=== PATIENT | female | born 1945 | race Caucasian/White ===

== ENCOUNTER 2019-03-28 12:47 | Emergency (ER) | payer MEDICARE, SELFPAY ==
[2019-03-28 13:17] VITALS: BP 134/69; PULSE 66; RESP 16; TEMP 37.1; O2SAT 92; BMI 20.2
--- NOTE | 2019-03-28 13:31 | XR_ITS ---
WS: [id number] CHEST, 1 view. HISTORY: cough, sob COMPARISON: 12/01/2018 Partial obscuration of the LEFT hemidiaphragm with increasing consolidation at the LEFT lung base. Sm all pleural effusion on the LEFT. Cardiac size: Mildly enlarged cardiac silhouette. Mediastinum/Aorta: Partially calcified aorta. Hiatal hernia. No osseous abnormality seen. XR/XR chest 1V [id number] IMPRESSION: 1. Small LEFT pleural effusion and suspected atelectasis or LEFT basilar pneum onia. 2. Hiatal hernia. 3. Mild cardiomegaly.
[2019-03-28 14:21] LABS: Basophils % 0.1 %; Hematocrit 34.4 % (37.0-47.0); Hemoglobin 11.2 g/dL (11.5-15.3); Lymphocytes # 1.4 10^3/uL (0.8-4.8); Lymphocytes % 8.4 %; Mean Corpuscular HGB Conc 32.6 g/dL (30.0-36.0); Mean Corpuscular Volume 82.9 fL (81-99); Mean Platelet Volume 10.6 fL (7.4-10.4); Neutrophils # 14.3 10^3/uL (1.8-7.7); Neutrophils % 85.3 %; Nucleated Red Blood Cells % 0 %; Platelet Count 233 10^3/cmm (130-400); Red Blood Count 4.15 10^6/uL (4.1-5.3); Red Cell Distribution Width 16.6 % (12.1-15.1); White Blood Count 16.8 10^3/uL (4.0-10.0)
--- NOTE | 2019-03-28 14:29 | ED_ITS ---
Entered by Sweta Will, acting as scribe for HPI - General Adult General: Chief complaint: General Medical, Adult Stated complaint: cold symptoms, not acting self Time Seen by Provider: 03/28/19 14:31 Source: patient and family Mode of arrival: ambulatory Limitations: no limitations History of Present Illness: HPI narrative: 73 yo female presents with a cough and cold like symptoms. pt states this started 2-3 days ago. pt has had congestion. pt states she has had muscle aches. pt denies any other symptoms at this time. MD complaint: cough and congestion Onset (ago): day(s) (2-3 days ago) Associated symptoms: Reports chest pain (with coughing), cough, decreased appetite, malaise and weakness; Deny confusion, diaphoresis, dyspnea, headache(s), nausea, rash or vomiting Treatments prior to arrival: none Review of Systems General: Reports: other (negative unless marked) Const: Reports: chills, body aches, fatigue and malaise; Denies: fever or diaphoresis Eyes: Denies: change in vision or blurry vision ENMT: Denies: throat pain, painful swallowing, hoarseness, ear pain, ear discharge, Change in hearing or nasal discharge Card: Reports: chest pain (with coughing) Resp: Reports: productive cough; Denies: shortness of breath, non-productive cough, wheezing, coughing up blood or chest congestion GI: Denies: abdominal pain, nausea, vomiting, vomiting blood, coffee grounds in vomit, diarrhea, constipation, cramping, blood in stool or black tarry stool : Denies: flank pain, painful urination, urinary frequency, urinary urgency, decreased urine ouput, urinary incontinence or blood in urine Musc: Denies: neck pain, back pain, extremity pain, extremity swelling, joint pain, joint swelling, joint warmth or joint stiffness Skin/Breast: Denies: rash, skin tenderness or yellow skin Neuro: Denies: headache, numbness in extremities, weakness in extremities, changes in sensation, lack of coordination, difficulty walking, dizziness, vertigo or confusion Endo: Denies: excessive thirst, tired all the time, cold intolerance, excessive sweating, flushing or hot flashes Srinivasan/Lymph: Denies: easy bruising, easy bleeding, petechiae or enlarged lymph nodes All/Imm: Denies: hives, throat swelling, tongue swelling, facial swelling or acute wheezing PFSH ED PFSH: Statuses (acute, chronic, etc) shown below reflect problem list status as previously entered and may not be historically accurate Social History Smoking and tobacco status: former smoker Physical Exam Const: COMMON NORMALS: no apparent distress, oriented x3, no limitations, healthy appearing and well nourished EXAM LIMITATIONS: no altered mental status GENERAL APPEARANCE: cooperative, well kempt and well developed ORIENTATION/CONSCIOUSNESS: Yes awake HENMT: COMMON NORMALS: normocephalic, head/scalp atraumatic, hearing grossly normal bilaterally, external ears normal, EAC's normal, external nose normal and moist oral mucous membranes HEAD & SCALP: normal to inspection, normocephalic and atraumatic FACE & SINUS: normal facial exam and face symmetric NOSE: external nose normal and nares normal EXTERNAL EAR: Yes external ears normal EXTERNAL AUDITORY CANAL: EAC's normal MOUTH: oral and palatal mucosa normal and tongue normal Eye: COMMON NORMALS: PERRL, EOMs intact bilaterally, conjunctivae normal and no scleral icterus GENERAL EYE: normal appearance of both eyes and normal light reflex CONJUNCTIVA: Yes conjunctivae normal SCLERA: sclerae normal CORNEA: Yes corneas normal PUPIL: Yes PERRL DIRECT OPHTHALMOSCOPY: Yes normal light reflex Neck/C-Spine: COMMON NORMALS: full ROM, no lymphadenopathy, supple, no meningeal signs and no JVD GENERAL: Yes normal visual inspection and Yes trachea midline CERVICAL SPINE: Yes cervical ROM normal Chest: COMMONS NORMALS: inspection of chest normal and palpation of chest normal Resp: COMMON NORMALS: normal respiratory effort, no retractions and no use of accessory muscles EFFORT & INSPECTION: Yes able to speak in complete sentences AUSCULTATION: rhonchi Cardio: COMMON NORMALS: no JVD, regular rate, regular rhythm, S1 normal heart sound, S2 normal heart sound, no gallops, no clicks, no murmurs and no rub JUGULAR VENOUS DISTENTION: no JVD RATE: regular rate RHYTHM: regular rhythm HEART SOUNDS: S1 normal and S2 normal GI: COMMON NORMALS: soft to palpation, non-tender, no hepatosplenomegaly and no masses INSPECTION: Yes normal to inspection PALPATION: Yes soft and Yes no hepatosplenomegaly : COMMON NORMALS: Yes no CVA tenderness BLADDER/KIDNEY EXAM: Yes no CVA tenderness Back/Pelvis: COMMON NORMALS: no CVA tenderness, thoracic and lumbar spine normal to inspection, no thoracic nor lumbar tenderness and thoraco-lumbar ROM normal Extremity: COMMON NORMALS: normal to inspection, full ROM, normal capillary refill, no joint enlargement, no clubbing, cyanosis or edema and no calf tenderness Neuro: COMMON NORMALS: oriented x3, CN's II-XII intact bilaterally, moves all extremities, no focal motor deficits and no sensory deficits noted MENINGEAL SIGNS: Yes no meningeal signs Psych: COMMON NORMALS: mental status grossly normal, thought process normal, cooperative, affect normal, speech normal and activity/motor behavior normal APPEARANCE: Yes well kempt SPEECH: Yes normal speech THOUGHT PROCESS: normal thought process Skin: COMMON NORMALS: no rashes or lesions noted, skin turgor normal, no jaundice, no petechiae and no mottling GENERAL SKIN EXAM: no rashes or lesions noted and turgor normal Course Vital Signs: Vital signs: Vital Signs Temperature 98.7 F 03/28/19 13:17 Pulse Rate 66 03/28/19 13:17 Respiratory Rate 20 H 03/28/19 15:59 Blood Pressure 134/69 03/28/19 13:17 Pulse Oximetry 90 03/28/19 15:59 MDM - General Adult 2 MDM Narrative: Medical decision making narrative: The patient has a productive cough and rhonchi throughout her lungs. Her chest x-ray reveals a left lower lobe infiltrate consistent with pneumonia. The patient's troponin and EKG are abnormal but she refuses to stay for any further heart testing. She states that she knows she has pneumonia. She agrees to return should her symptoms change or worsen but she is denying any chest pain. She wants to go home on antibiotics. She agrees to follow-up with Dr. Cartagena in the office. The patient again understands that any heart problem can be life-threatening so if her symptoms change or worsen she agrees to return but at this time she wants to be discharged. Lab Data: Labs: Lab Results 03/28/19 03/28/19 03/28/19 Range/Units 14:11 14:11 14:11 WBC 16.8 H (4.0-10.0) 10^3/ uL RBC 4.15 (4.1-5.3) 10^6/u L Hgb 11.2 L (11.5-15.3) g/dL Hct 34.4 L (37.0-47.0) % MCV 82.9 (81-99) fL MCH 27.0 L (28.0-34.0) pg MCHC 32.6 (30.0-36.0) g/dL RDW 16.6 H (12.1-15.1) % Plt Count 233 (130-400) 10^3/c mm MPV 10.6 H (7.4-10.4) fL Neut % (Auto) 85.3 % Lymph % (Auto) 8.4 % [place] % (Auto) 6.0 % Eos % (Auto) 0.0 % Baso % (Auto) 0.1 % Neut # (Auto) 14.3 H (1.8-7.7) 10^3/u L Lymph # (Auto) 1.4 (0.8-4.8) 10^3/u L [place] # (Auto) 1.0 H (0.2-0.9) 10^3/u L Eos # (Auto) 0.0 (0.0-0.8) 10^3/u L Baso # (Auto) 0.0 (0.0-0.1) 10^3/u L Nucleated RBC % (a uto) 0 % Nucleated RBCs # 0.0 /100WBC Sodium 137 (136-145) mmol/L Potassium 4.6 (3.5-5.1) mmol/L Chloride 102 (98-107) mmol/L Carbon Dioxide 21 L (22-29) mmol/L Anion Gap 18.6 (5-19) BUN 19 (8-23) mg/dL Creatinine 1.4 H (0.5-0.9) mg/dL Glucose 116 H (74-106) mg/dL Lactate (0.5-2.2) mmol/L Calcium 9.3 (8.8-10.2) mg/Dl Magnesium 2.1 (1.7-2.3) mg/dL Total Bilirubin 1.4 H (0.15-1.2) mg/dL AST 23 (0-32) U/L ALT 10 (0-33) U/L Alkaline Phosphata se 51 (35-105) IU/L Troponin T Baselin e (0-10) ng/mL Troponin T [address] [place] (0-10) ng/mL Delta Troponin T (0-10) ABS# Total Protein 7.0 (6.6-8.7) g/dL Albumin 3.9 (3.5-5.2) g/dL Globulin 3.1 (1.3-4.6) g/dL Lipase 5 L (13-60) U/L 03/28/19 03/28/19 03/28/19 Range/Units 14:11 16:22 16:22 WBC (4.0-10.0) 10^3/ uL RBC (4.1-5.3) 10^6/u L Hgb (11.5-15.3) g/dL Hct (37.0-47.0) % MCV (81-99) fL MCH (28.0-34.0) pg MCHC (30.0-36.0) g/dL RDW (12.1-15.1) % Plt Count (130-400) 10^3/c mm MPV (7.4-10.4) fL Neut % (Auto) % Lymph % (Auto) % [place] % (Auto) % Eos % (Auto) % Baso % (Auto) % Neut # (Auto) (1.8-7.7) 10^3/u L Lymph # (Auto) (0.8-4.8) 10^3/u L [place] # (Auto) (0.2-0.9) 10^3/u L Eos # (Auto) (0.0-0.8) 10^3/u L Baso # (Auto) (0.0-0.1) 10^3/u L Nucleated RBC % (a uto) % Nucleated RBCs # /100WBC Sodium (136-145) mmol/L Potassium (3.5-5.1) mmol/L Chloride (98-107) mmol/L Carbon Dioxide (22-29) mmol/L Anion Gap (5-19) BUN (8-23) mg/dL Creatinine (0.5-0.9) mg/dL Glucose (74-106) mg/dL Lactate 1.6 (0.5-2.2) mmol/L Calcium (8.8-10.2) mg/Dl Magnesium (1.7-2.3) mg/dL Total Bilirubin (0.15-1.2) mg/dL AST (0-32) U/L ALT (0-33) U/L Alkaline Phosphata se (35-105) IU/L Troponin T Baselin e 30 H (0-10) ng/mL Troponin T [address] [place] 24.88 H (0-10) ng/mL Delta Troponin T -5.12 L (0-10) ABS# Total Protein (6.6-8.7) g/dL Albumin (3.5-5.2) g/dL Globulin (1.3-4.6) g/dL Lipase (13-60) U/L Imaging Data^: CXR: My impression: Left lower lobe infiltrate consistent with pneumonia EKG Data^: EKG 1: Interpretation: 1524 -normal sinus rhythm at 60 beats a minute, right bundle branch block, nonspecific ST and T wave changes. Computer generated interpretation: Chest X-Ray 03/28/19 13:31 IMPRESSION: 1. Small LEFT pleural effusion and suspected atelectasis or LEFT basilar pneumonia. 2. Hiatal hernia. 3. Mild cardiomegaly. Discharge Plan Discharge Patient Disposition: Home, Self-Care Clinical Impression: Pneumonia Condition: Stable Prescriptions: New cefdinir 300 mg capsule 300 mg PO Q12H 10 Days Qty: 20 RF: 0 doxycycline hyclate 100 mg capsule 100 mg PO BID 10 Days Qty: 20 RF: 0 Discharge Orders: Discharge Order (Routine); Ordered 03/28/19 Ordered By: Emily Paez Referrals: Peter Cartagena MD [Family Provider] - 1-3 days Discharge Diet: Usual diet Discharge Activity: Increase activity as tolerated Patient Instructions: Bacterial Pneumonia (ED) Activity Restrictions/Additional Instructions: Please return to the ER immediately for any of the signs or symptoms listed on your discharge instruction sheets, worsening/changing of your symptoms, you are not getting better as quickly as expected, or for ANY other cause or concerns. You have declined any further evaluation of your heart and of course a heart problem could be life-threatening so if your symptoms change/worsen in any way you are more than welcome and encouraged to return to the ER for further evaluation and care. Be certain to follow-up with Dr. Cartagena as soon as possible for recheck. Coding Level of Care Code ED Athletic Monitor for Chg Fwd Exam Problem Focused The documentation recorded by the Suman king Bridget Annette, accurately reflects the service I personally performed and the decisions made by me, Emily Paez Mar 28, 2019 12:47
[2019-03-28 14:41] LABS: Alanine Aminotransferase 10 U/L (0-33); Albumin Level 3.9 g/dL (3.5-5.2); Alkaline Phosphatase 51 IU/L (35-105); Anion Gap 18.6 (5-19); Aspartate Amino Transferase 23 U/L (0-32); Blood Urea Nitrogen 19 mg/dL (8-23); Calcium 9.3 mg/Dl (8.8-10.2); Carbon Dioxide 21 mmol/L (22-29); Chloride 102 mmol/L (98-107); Globulin 3.1 g/dL (1.3-4.6); Glucose 116 mg/dL (74-106); Potassium 4.6 mmol/L (3.5-5.1); Sodium 137 mmol/L (136-145); Total Bilirubin 1.4 mg/dL (0.15-1.2)
[2019-03-28 15:01] LABS: Lipase 5 U/L (13-60); Magnesium 2.1 mg/dL (1.7-2.3)
[2019-03-28 15:02] LABS: Troponin(5th) Baseline 30 ng/mL (0-10)
[2019-03-28] MEDS: sodium chloride 0.9% 1,000 ML 999 ML IV (15:10)
[2019-03-28] MEDS: acetaminophen 325 mg Tablet 650 MG PO (15:11)
[2019-03-28] MEDS: ondansetron 2 mg/ML SDV 2 mL 4 MG IVP (15:14)
[2019-03-28 15:47] VITALS: RESP 18
[2019-03-28 15:59] VITALS: RESP 20; O2SAT 90
[2019-03-28] MEDS: morphine 4 mg/mL SDV 1 mL 2 MG IVP (15:59)
--- NOTE | 2019-03-28 16:38 | ECG_ITS ---
Measurements Intervals [place] Rate: 60 P: 49 [place]: 164 QRS: -19 QRSD: 133 T: 30 QT: 471 QTc: 474 SINUS RHYTHM POSSIBLE LEFT ATRIAL ENLARGEMENT INTRAVENTRICULAR CONDUCTION DELAY POSSIBLE LEFT VENTRICULAR HYPERTROPHY POSSIBLE SEPTAL MYOCARDIAL INFARCTION , PROBABLY OLD Compared to ECG 11/12/2018 17:32:02 Intraventricular conduction delay now present Myocardial infarct finding now present Sinus bradycardia no longer present Right bundle-branch block no longer present Electronically Signed On 03-30-2019 13:33:42 [employer] by Elva Goldstein M.D. [email or web address]
[2019-03-28 16:53] LABS: Lactate (Lactic Acid level) 1.6 mmol/L (0.5-2.2)
[2019-03-28 16:55] VITALS: BP 155/66; PULSE 63; RESP 18; O2SAT 94
[2019-03-28 16:55] LABS: Troponin 5 2HR 24.88 ng/mL (0-10)
[2019-03-28 16:56] LABS: Troponin 5 2HR Delta -5.12 ABS# (0-10)
[2019-03-28 17:03] VITALS: BP 144/65; BP 151/59; BP 155/68; PULSE 63; PULSE 69; PULSE 70
[2019-03-28] MEDS: doxycycline 100 mg Tablet 200 MG PO (17:23)
[2019-03-28] MEDS: cefTRIAXone 1,000 MG in sodium chloride 0.9% (plus) 50 ML 100 MG IV (17:24)
[2019-03-28 17:53] VITALS: BP 155/64; PULSE 61; RESP 18; O2SAT 93
== END 2019-03-28 17:54 | disposition home or self-care (01) ==
PROVIDERS: Family Medicine; Emergency Provider Emergency Medicine; Family Provider Internal Medicine
DX: J18.9 Pneumonia, unspecified organism (principal); Z87.891 Personal history of nicotine dependence
CPT/HCPCS: 36415; 71045; 80053; 82803; 83605; 83690; 83735; 84484; 85025; 87040; 93005; 96360; 96365; 96374; 99283; J0696; J2270; J2405; J7030

== ENCOUNTER → 2019-04-25 11:00 | Outpatient (BNVA) | payer MEDICARE, SELFPAY | PROVIDERS: Family Provider Internal Medicine; PCP Internal Medicine; Visit Provider Nurse Practitioner | DX: G89.29 Other chronic pain (principal); M54.5 Low back pain; Z79.891 Long term (current) use of opiate analgesic | CPT/HCPCS: 99214 ==

== ENCOUNTER → 2019-06-20 10:50 | Outpatient (BNVA) | payer MEDICARE, SELFPAY | PROVIDERS: Family Provider Internal Medicine; PCP Internal Medicine; Visit Provider Nurse Practitioner | DX: Z76.89 Persons encountering health services in other specified circumstances (principal) | CPT/HCPCS: 99213 ==

== ENCOUNTER → 2019-09-05 13:41 | Outpatient (BNVA) | payer MEDICARE, SELFPAY | PROVIDERS: Family Provider Internal Medicine; PCP Internal Medicine; Visit Provider Nurse Practitioner | DX: G89.29 Other chronic pain (principal); M54.41 Lumbago with sciatica, right side; M54.42 Lumbago with sciatica, left side; Z79.891 Long term (current) use of opiate analgesic | CPT/HCPCS: 99213 ==

== ENCOUNTER → 2019-10-01 14:56 | Outpatient (BNVA) | payer MEDICARE, SELFPAY | PROVIDERS: Family Provider Internal Medicine; PCP Internal Medicine; Visit Provider Urology | DX: N39.0 Urinary tract infection, site not specified (principal); R33.9 Retention of urine, unspecified; N39.41 Urge incontinence | CPT/HCPCS: 81001 ==

== ENCOUNTER → 2019-10-29 13:37 | Outpatient (BNVA) | payer MEDICARE, SELFPAY | PROVIDERS: Family Provider Internal Medicine; PCP Internal Medicine; Visit Provider Nurse Practitioner | DX: Z02.89 Encounter for other administrative examinations (principal); G89.29 Other chronic pain; M54.5 Low back pain; Z79.891 Long term (current) use of opiate analgesic | CPT/HCPCS: 99213 ==

== ENCOUNTER → 2019-12-09 12:28 | Outpatient (BNVA) | payer MEDICARE, SELFPAY | PROVIDERS: Family Provider Internal Medicine; PCP Internal Medicine; Visit Provider Internal Medicine | DX: E11.9 Type 2 diabetes mellitus without complications (principal); K86.81 Exocrine pancreatic insufficiency | CPT/HCPCS: 85025 ==

== ENCOUNTER → 2019-12-15 10:34 | Outpatient (BNVA) | payer MEDICARE, SELFPAY | PROVIDERS: Family Provider Internal Medicine; PCP Internal Medicine; Visit Provider Internal Medicine | DX: K86.81 Exocrine pancreatic insufficiency (principal); E11.9 Type 2 diabetes mellitus without complications; E78.2 Mixed hyperlipidemia | CPT/HCPCS: 80053; 80061; 84443; 85025 ==

== ENCOUNTER → 2019-12-26 13:20 | Outpatient (BNVA) | payer MEDICARE, SELFPAY | PROVIDERS: Family Provider Internal Medicine; PCP Internal Medicine; Visit Provider Nurse Practitioner | DX: G89.29 Other chronic pain (principal); M54.41 Lumbago with sciatica, right side; M54.42 Lumbago with sciatica, left side; M79.7 Fibromyalgia; Z79.891 Long term (current) use of opiate analgesic | CPT/HCPCS: 99213 ==

== ENCOUNTER 2020-01-02 18:38 | Emergency (ER) | payer MEDICARE, SELFPAY ==
[2020-01-02 19:30] VITALS: BP 137/80; PULSE 80; RESP 17; TEMP 36.7; O2SAT 97; BMI 23.0
[2020-01-02 22:38] VITALS: BP 168/88; PULSE 78; RESP 16; O2SAT 98; O2SAT 99
[2020-01-02 22:52] VITALS: BP 141/71; PULSE 67; RESP 18; O2SAT 99
--- NOTE | 2020-01-02 23:05 | ECG_ITS ---
[facility] Test Date: 2020-01-02 Pat Name: Ivan Portillo Department: Room: Gender: Female Photo Lab Specialist: : [id number] Requested By: Emily Kirkpatrick Order Number: [id number] Rowe MD: Elva Goldstein M.D. Measurements Intervals [place] Rate: 61 P: 31 [place]: 163 QRS: -34 QRSD: 129 T: -12 QT: 479 QTc: 485 Interpretive Statements SINUS RHYTHM LEFT AXIS DEVIATION [QRS AXIS < -30] RIGHT BUNDLE BRANCH BLOCK [120+ ms QRS DURATION, UPRIGHT V1, 40+ ms S IN I/aVL/V4/V5/V6] MINIMAL VOLTAGE CRITERIA FOR LVH, CONSIDER NORMAL VARIANT [MEETS CRITERIA IN ONE OF: R(aVL), S(V1), R(V5), R(V5/V6)+S(V1)] Compared to ECG 03/28/2019 15:24:06 Left-axis deviation now present Right bundle-branch block now present Intraventricular conduction delay no longer present Myocardial infarct finding no longer present Electronically Signed On 01-03-2020 17:56:42 CDT by Elva Goldstein M.D. [email or web address]
--- NOTE | 2020-01-02 23:05 | XRR_ITS ---
PROCEDURE INFORMATION: Exam: XR Chest, 1 View Exam date and time: 01/02/2020 11:48 PM Age: 74 years old Clinical indication: Dyspnea and fever TECHNIQUE: Imaging protocol: XR of the chest Views: 1 view. COMPARISON: CR XR chest 1V [id number] 03/28/2019 1:47 PM FINDINGS: Lungs: Interval decrease in the left basilar atelectasis. No interval consolidation. Continued increased lung volumes. Continued suggestion of a small calcified granuloma in the right lung base Pleural space: Unremarkable. No pleural effusion. No pneumothorax. Heart/Mediastinum: Continued suggestion of a prominent hiatal hernia. Continued cardiomegaly. Vasculature: Aortic elongation slightly more evident than before. Bones/joints: Continued mild S-shaped thoracolumbar scoliosis. XR/XR chest 1V portable [id number] IMPRESSION: 1. No apparent pneumonia. Interval decrease in the left basilar atelectasis. Emphysema still suspected. 2. Continued cardiomegaly and a probable hiatal hernia.
[2020-01-02 23:40] LABS: ABG PCO2 35.1 mmHg (35-45); ABG PH Result 7.46 (7.35-7.45); Base Excess ABG 1.7 mmol/L (-2.0-2.0); Blood Gas Operator Identificat HARKR; Blood Gas Sample Site Brachial, right; Blood Gas Sample Type Arterial; HCO3 ABG 25.2 mmol/L (22-26); Oxygen Device ROOM AIR
--- NOTE | 2020-01-02 23:43 | ED_ITS ---
HPI - COVID General: Chief Complaint: COVID symptoms Stated Complaint: FEVER Time Seen by Provider: 01/02/20 19:43 Source: patient Mode of arrival: ambulatory Limitations: no limitations Triage information: Has fever, cough or shortness of breath . Exposure to COVID + person last 14 days History of Present Illness: HPI Narrative: Ms. Cornejo is a very nice 74-year-old female who comes in complaining of flulike symptoms. She states that 5 days ago she was exposed to the COVID-19 virus at [facility] and then the past 3 days has been having symptoms. Her symptoms are that of a sore throat, dry cough, fatigue and malaise. Patient believes she had a fever yesterday of 100.0 but no higher. She states overall she feels tired but otherwise is ma intaining her activities of daily living. She denies any other exacerbating or alleviating factors and she denies any other known ill exposures. Her was also exposed to this person but he is not symptomatic at this time. COVID 19 common symptoms: positive fever(s), chills, non-productive cough, fatigue, body aches and throat pain; negative productive cough, dyspnea, headache(s), nausea, vomiting or diarrhea COVID 19 other sytmptoms: negative chest pain or confusion COVID Results: SARS-CoV-2 Antigen (Rapid) Positive (Negative) H 01/03/20 00:27 01/03/20 Review of Systems Const: Reports: fever(s), chills, body aches, fatigue and malaise; Denies: diaphoresis Eyes: Denies: change in vision, blurry vision, photophobia, eye discomfort, eye discharge, eye redness or yellow eyes ENMT: Reports: throat pain; Denies: odynophagia, hoarseness, swelling of lips/tongue, ear or mastoid pain, ear discharge, change in hearing or nasal discharge Card: Denies: chest pain, palpitations, irregular heart rhythm, edema, lightheadedness, syncope, pre-syncope, dyspnea on exertion or orthopnea Resp: Reports: non-productive cough; Denies: dyspnea, productive cough, wheezing, hemoptysis or chest congestion GI: Denies: abdominal pain, nausea, vomiting, hematemesis, coffee ground emesis, heartburn, diarrhea, constipation, GI cramping, hematochezia or melena : Denies: flank pain, dysuria, urinary frequency, urinary urgency or hematuria Musc: Denies: neck pain, back pain, extremity pain, extremity swelling, joint pain, joint swelling, joint redness, joint warmth or joint stiffness Skin/Breast: Denies: rash, pruritus, erythema, skin pain or skin tenderness Neuro: Denies: headache(s), numbness in extremities, weakness in extremities, sensory changes, lack of coordination, difficulty walking, dizziness, vertigo, confusion, Slurred speech present or seizure-like activity Srinivasan/Lymph: Denies: easy bruising, easy bleeding, petechiae, purpura or enlarged lymph nodes All/Imm: Denies: urticaria, throat swelling, tongue swelling, facial swelling or acute wheezing PFSH ED PFSH: Medical History Abnormal cardiovascular stress test Atherosclerotic heart disease of [place] coronary artery with other forms of angina pectoris Chronic low back pain Diarrhea Fibromyalgia Hyperlipidemia Hypertension Ileostomy, has currently Long-term current use of opiate analgesic NSTEMI (non-ST elevated myocardial infarction) Pain management contract signed Past heart attack Pyelonephritis Recurrent UTI Restless legs syndrome Urgency incontinence Urinary incontinence Urinary retention Surgical History H/O ileostomy History of reversal of ileostomy Hx of appendectomy (~1973) Hx of foot surgery (~11/2013) RIGHT FOOT Hx of hysterectomy (~1973) Hx of tubal ligation Family History Brother , BONE METS Cancer COLON CANCER Mother Heart disease Family history of thyroid problem Grandmother Heart disease Father Hyperlipidemia Social History Smoking and tobacco status: former smoker Alcohol intake: never Lives independently: Yes Household members: spouse History of recent travel: No Physical Exam Const: COMMON NORMALS: no acute distress, patient oriented x3, no limitations and alert GENERAL APPEARANCE: cooperative HENMT: COMMON NORMALS: normocephalic, atraumatic, external ears normal, EAC's normal and Normal external nose present HEAD & SCALP: normal to inspection, normocephalic and atraumatic FACE & SINUS: normal facial exam and face symmetric NOSE: Normal external nose present and Normal nares present EXTERNAL EAR: Yes external ears normal EXTERNAL AUDITORY CANAL: EAC's normal MOUTH: Normal oral and palatal mucosa present, lip normal and tongue normal Eye: COMMON NORMALS: Equal, round and reactive pupils present and conjunctivae normal GENERAL EYE: appearance normal, both eyes and all related structures ALIGNMENT: Yes alignment normal PERIORBITAL: periorbital findings normal EYELID: eyelids normal CONJUNCTIVA: Yes conjunctivae normal SCLERA: sclerae normal PUPIL: Yes Equal, round and reactive pupils present Neck/C-Spine: COMMON NORMALS: full ROM, no lymphadenopathy, supple, no meni ngeal signs and no JVD GENERAL: Yes normal visual inspection and Yes trachea midline Chest: COMMONS NORMALS: normal inspection of the chest and normal palpation of entire chest wall Resp: COMMON NORMALS: normal respiratory effort, No retractions, No use of accessory muscles and clear to auscultation bilaterally EFFORT & INSPECTION: Yes able to speak in complete sentences and Yes symmetric chest movement AUSCULTATION: clear to auscultation bilaterally, no crackles, no rales, no rhonchi and no wheezes Cardio: COMMON NORMALS: no JVD, regular rate, regular rhythm, S1 normal heart sound present and S2 normal heart sound present RATE: regular rate RHYTHM: regular rhythm HEART SOUNDS: S1 normal heart sound present, S2 normal heart sound present, no click, no gallops, no murmurs and no rubs GI: COMMON NORMALS: Soft to palpation and No hepatosplenomegaly present PALPATION: Yes Soft to palpation, No Tenderness to palpation present (GI), No Guarding due to palpation present (GI), No Rigid due to palpation, Yes No hepatosplenomegaly present, No Hernia present, No Palpable mass present and No Pulsatile mass present : COMMON NORMALS: Yes no CVA tenderness BLADDER/KIDNEY EXAM: Yes no CVA tenderness EXTERNAL FEMALE EXAM: No Hernia present Back/Pelvis: COMMON NORMALS: no CVA tenderness, thoracic and lumbar spine normal to inspection, no thoracic nor lumbar tenderness and thoraco-lumbar ROM normal Extremity: COMMON NORMALS: normal to inspection, full ROM, capillary refill normal, no joint enlargement, no clubbing, cyanosis or edema and no calf tenderness Neuro: COMMON NORMALS: patient oriented x3, CN's II-XII intact bilaterally, moves all extremities, no focal motor deficits and no sensory deficits noted SENSORIUM/ORIENTATION: Yes alert MENINGEAL SIGNS: Yes no meningeal signs SPEECH: speech normal Psych: COMMON NORMALS: mental status grossly normal, Normal thought process present, cooperative, normal affect, speech normal and activity/motor behavior normal SPEECH: Yes normal speech THOUGHT PROCESS: Normal thought process present Skin: COMMON NORMALS: no rashes or lesions noted, turgor normal, no jaundice, no petechiae and no mottling GENERAL SKIN EXAM: no rashes or lesions noted and turgor normal Course Vital Signs: Vital signs: Vital Signs Temperature 98.1 F 01/02/20 19:30 Pulse Rate 87 01/03/20 02:34 Respiratory Rate 16 01/03/20 02:34 Blood Pressure 168/74 01/03/20 02:34 Pulse Oximetry 97 01/03/20 02:34 MDM - COVID MDM Narrative Medical decision making narrative: Ms. Peguero is a nice 74-year-old female who comes in complaining of covert symptoms. She is COVID positive. Patient's inflammatory markers are not tremendously high and her chest x-ray appears normal. She had a positive d-dimer and I did not suspect a PE but this was checked secondary to being an inflammatory marker. The patient had restless legs here and declined anything for them but was adamant she wanted to go home. I discussed with the patient at length the possibility of or severe permanent disability by this happening but she still declined to stay. Patient understood that it could be a threat to her life but despite this she wanted to be discharged. The patient agreed to return if her symptoms worsened and she understood she needed to quarantine. She agreed to follow-up with her doctor or return here if she got worse at all. She was discharged on Decadron and she was not in necessitating oxygen prior to discharge. Lab Data Attestation: I reviewed the patient's lab results. Result diagrams: 01/03/20 00:27 01/03/20 00:27 Labs: Lab Results 01/02/20 01/03/20 01/03/20 Range/Units 23:29 00:27 00:27 WBC 4.8 (4.0-10.0) 10^3/uL RBC 4.66 (4.1-5.3) 10^6/uL Hgb 12.8 (11.5-15.3) g/dL Hct 40.8 (37.0-47.0) % MCV 87.6 (81-99) fL MCH 27.5 L (28.0-34.0) pg MCHC 31.4 (30.0-36.0) g/dL RDW 15.5 H (12.1-15.1) % Plt Count 241 (130-400) 10^3/cmm MPV 11.3 H (7.4-10.4) fL Neut % (Auto) 43.9 % Lymph % (Auto) 36.5 % Hitchcock % (Auto) 18.4 % Eos % (Auto) 0.2 % Baso % (Auto) 0.4 % Neut # (Auto) 2.10 (1.8-7.7) 10^3/uL Lymph # (Auto) 1.8 (0.8-4.8) 10^3/uL Hitchcock # (Auto) 0.9 (0.2-0.9) 10^3/uL Eos # (Auto) 0.0 (0.0-0.8) 10^3/uL Baso # (Auto) 0.0 (0.0-0.1) 10^3/uL Nucleated RBC % (auto) 0 % Nucleated RBCs # 0.0 /100WBC PT 14.40 (12.1-14.9) SECONDS INR 1.08 (0.8-1.2) APTT 42.5 H (23.9-36.7) SECONDS Fibrinogen 529 H (174-498) mg/dL D-Dimer 0.99 H (0-0.59) ug/mIFEU Specimen Type Arterial Sample Site Brachial, right ABG pH 7.46 H (7.35-7.45) ABG pCO2 35.1 (35-45) mmHg ABG pO2 69.0 L (80.0-100.0) mmHg ABG HCO3 25.2 (22-26) mmol/L ABG Base Excess 1.7 (-2.0-2.0) mmol/L Fabricio Test N/a Hematocrit 38.0 (37-47) % O2 Delivery Device Room air FiO2 21.0 % Manager Of Loss Prevention Operations ID Harkr Sodium (136-145) mmol/L Potassium (3.5-5.1) mmol/L Chloride (98-107) mmol/L Carbon Dioxide (22-29) mmol/L Anion Gap (5-19) BUN (8-23) mg/dL Creatinine (0.5-0.9) mg/dL GFR Calculation Glucose (65-115) mg/dL Calculated Osmolality (285-295) mOsm/kg Lactic Acid (0.5-2.2) mmol/L Calcium (8.5-10.5) mg/dL Magnesium (1.7-2.3) mg/dL Ferritin (15-150) ng/mL Total Bilirubin (0.15-1.2) mg/dL AST (0-32) U/L ALT (0-33) U/L Alkaline Phosphatase (35-105) IU/L Lactate Dehydrogenase (135-214) U/L Troponin T Gen 5 ng/L (0-10) ng/L Troponin T Baseline (0-10) ng/L C-Reactive Protein (0.0-4.9) mg/L NT-Pro-B Natriuret Pep (0-125) pg/mL Total Protein (6.6-8.7) g/dL Albumin (3.5-5.2) g/dL Globulin (1.3-4.6) g/dL Procalcitonin (0-0.5) ng/mL Influenza Type A Ag (Negative) Influenza Type B Ag (Negative) SARS-CoV-2 Ag (Rapid) (Negative) 01/03/20 01/03/20 01/03/20 Range/Units 00:27 00:27 00:27 WBC (4.0-10.0) 10^3/uL RBC (4.1-5.3) 10^6/uL Hgb (11.5-15.3) g/dL Hct (37.0-47.0) % MCV (81-99) fL MCH (28.0-34.0) pg MCHC (30.0-36.0) g/dL RDW (12.1-15.1) % Plt Count (130-400) 10^3/cmm MPV (7.4-10.4) fL Neut % (Auto) % Lymph % (Auto) % Hitchcock % (Auto) % Eos % (Auto) % Baso % (Auto) % Neut # (Auto) (1.8-7.7) 10^3/uL Lymph # (Auto) (0.8-4.8) 10^3/uL Hitchcock # (Auto) (0.2-0.9) 10^3/uL Eos # (Auto) (0.0-0.8) 10^3/uL Baso # (Auto) (0.0-0.1) 10^3/uL Nucleated RBC % (auto) % Nucleated RBCs # /100WBC PT (12.1-14.9) SECONDS INR (0.8-1.2) APTT (23.9-36.7) SECONDS Fibrinogen (174-498) mg/dL D-Dimer (0-0.59) ug/mIFEU Specimen Type Sample Site ABG pH (7.35-7.45) ABG pCO2 (35-45) mmHg ABG pO2 (80.0-100.0) mmHg ABG HCO3 (22-26) mmol/L ABG Base Excess (-2.0-2.0) mmol/L Fabricio Test Hematocrit (37-47) % O2 Delivery Device FiO2 % Manager Of Loss Prevention Operations ID Sodium 138 (136-145) mmol/L Potassium 3.7 (3.5-5.1) mmol/L Chloride 97 L (98-107) mmol/L Carbon Dioxide 22 (22-29) mmol/L Anion Gap 22.7 H (5-19) BUN 19 (8-23) mg/dL Creatinine 1.3 H (0.5-0.9) mg/dL GFR Calculation Not Reportable Glucose 81 (65-115) mg/dL Calculated Osmolality 287 (285-295) mOsm/kg Lactic Acid 1.5 (0.5-2.2) mmol/L Calcium 9.5 (8.5-10.5) mg/dL Magnesium 2.0 (1.7-2.3) mg/dL Ferritin 48 (15-150) ng/mL Total Bilirubin 0.8 (0.15-1.2) mg/dL AST 42 H (0-32) U/L ALT 17 (0-33) U/L Alkaline Phosphatase 82 (35-105) IU/L Lactate Dehydrogenase 280 H (135-214) U/L Troponin T Gen 5 ng/L 26 H (0-10) ng/L Troponin T Baseline (0-10) ng/L C-Reactive Protein 35.8 H (0.0-4.9) mg/L NT-Pro-B Natriuret Pep 671 H (0-125) pg/mL Total Protein 7.3 (6.6-8.7) g/dL Albumin 4.2 (3.5-5.2) g/dL Globulin 3.1 (1.3-4.6) g/dL Procalcitonin 0.25 (0-0.5) ng/mL Influenza Type A Ag (Negative) Influenza Type B Ag (Negative) SARS-CoV-2 Ag (Rapid) (Negative) 01/03/20 01/03/20 01/03/20 Range/Units 00:27 00:27 00:30 WBC (4.0-10.0) 10^3/uL RBC (4.1-5.3) 10^6/uL Hgb (11.5-15.3) g/dL Hct (37.0-47.0) % MCV (81-99) fL MCH (28.0-34.0) pg MCHC (30.0-36.0) g/dL RDW (12.1-15.1) % Plt Count (130-400) 10^3/cmm MPV (7.4-10.4) fL Neut % (Auto) % Lymph % (Auto) % Hitchcock % (Auto) % Eos % (Auto) % Baso % (Auto) % Neut # (Auto) (1.8-7.7) 10^3/uL Lymph # (Auto) (0.8-4.8) 10^3/uL Hitchcock # (Auto) (0.2-0.9) 10^3/uL Eos # (Auto) (0.0-0.8) 10^3/uL Baso # (Auto) (0.0-0.1) 10^3/uL Nucleated RBC % (auto) % Nucleated RBCs # /100WBC PT (12.1-14.9) SECONDS INR (0.8-1.2) APTT (23.9-36.7) SECONDS Fibrinogen (174-498) mg/dL D-Dimer (0-0.59) ug/mIFEU Specimen Type Sample Site ABG pH (7.35-7.45) ABG pCO2 (35-45) mmHg ABG pO2 (80.0-100.0) mmHg ABG HCO3 (22-26) mmol/L ABG Base Excess (-2.0-2.0) mmol/L Fabricio Test Hematocrit (37-47) % O2 Delivery Device FiO2 % Manager Of Loss Prevention Operations ID Sodium (136-145) mmol/L Potassium (3.5-5.1) mmol/L Chloride (98-107) mmol/L Carbon Dioxide (22-29) mmol/L Anion Gap (5-19) BUN (8-23) mg/dL Creatinine (0.5-0.9) mg/dL GFR Calculation Glucose (65-115) mg/dL Calculated Osmolality (285-295) mOsm/kg Lactic Acid (0.5-2.2) mmol/L Calcium (8.5-10.5) mg/dL Magnesium (1.7-2.3) mg/dL Ferritin (15-150) ng/mL Total Bilirubin (0.15-1.2) mg/dL AST (0-32) U/L ALT (0-33) U/L Alkaline Phosphatase (35-105) IU/L Lactate Dehydrogenase (135-214) U/L Troponin T Gen 5 ng/L (0-10) ng/L Troponin T Baseline 26 H (0-10) ng/L C-Reactive Protein (0.0-4.9) mg/L NT-Pro-B Natriuret Pep (0-125) pg/mL Total Protein (6.6-8.7) g/dL Albumin (3.5-5.2) g/dL Globulin (1.3-4.6) g/dL Procalcitonin (0-0.5) ng/mL Influenza Type A Ag Negative (Negative) Influenza Type B Ag Negative (Negative) SARS-CoV-2 Ag (Rapid) Positive H (Negative) COVID Results: SARS-CoV-2 Antigen (Rapid) Positive (Negative) H 01/03/20 00:27 01/03/20 Imaging Data CXR: Attestation: I personally reviewed and interpreted this imaging study as follows: My impression: Cardiomegaly, no other acute cardiopulmonary findings. EKG Data EKG 1: Attestation: I personally reviewed and interpreted this EKG as follows: EKG interpretation date: 01/03/20 EKG interpretation time: 23:49 Interpretation: Normal sinus rhythm at 61 beats a minute, right bundle branch block, mildly prolonged QTC. LVH. Unchanged from previous. Discharge Plan Discharge Patient Disposition: Home Clinical Impression: Viral pneumonia, COVID-19 virus infection Condition: Stable Prescriptions: New Decadron 6 mg tablet 6 mg PO DAILY Qty: 10 RF: 0 No Action Lactobacillus acidophilus [Acidophilus] Capsule 10 mg PO DAILY RF: 0 fluticasone propionate [Flonase Allergy Relief] 50 mcg/actuation spra y,suspension 1 spray INTRANASAL BID Qty: 9.9 RF: 3 loratadine [Claritin] 10 mg tablet 10 mg PO DAILY Qty: 30 RF: 3 aspirin 81 mg tablet,delayed release (DR/EC) 81 mg PO DAILY RF: 0 cholecalciferol (vitamin D3) 25 mcg (1,000 unit) capsule 25 mcg PO DAILY RF: 0 Zenpep 40,000-126,000- 168,000 unit capsule,delayed release(DR/EC) 1 cap PO .qac Qty: 90 RF: 8 hydrocodone-acetaminophen 10-325 mg tablet 1 tab PO QID PRN (Reason: pain) 30 Days Qty: 120 RF: 0 hydrocodone-acetaminophen 10-325 mg tablet 1 tab PO QID PRN (Reason: pain) 30 Days Qty: 120 RF: 0 Symbicort 160-4.5 mcg/actuation HFA aerosol inhaler 2 puff INHALATION BID Qty: 10.2 RF: 2 lisinopril 40 mg tablet See Rx Instructions PO DAILY 90 Days Qty: 135 RF: 3 loperamide 2 mg capsule 2 mg PO Q6H PRN (Reason: loose stool) Qty: 90 RF: 3 simvastatin 40 mg tablet 40 mg PO QPM Qty: 90 RF: 0 famotidine 40 mg tablet 40 mg PO BID Qty: 180 RF: 3 levothyroxine 75 mcg tablet 75 mcg PO DAILY Qty: 90 RF: 0 lidocaine HCl 4 % lotion 1 applic TOPICAL BID Qty: 88 RF: 8 Norvasc 10 mg tablet 10 mg PO DAILY Qty: 90 RF: 3 potassium chloride 20 mEq tablet extended release 20 meq PO BID Qty: 180 RF: 2 Lyrica 225 mg capsule 225 mg PO BID Qty: 60 RF: 3 Vitamin B-12 1,000 mcg Tablet 1,000 mcg PO DAILY RF: 0 mirtazapine 30 mg Tablet 30 mg PO BEDTIME RF: 0 ropinirole 0.5 mg Tablet 0.5 mg PO BID RF: 0 Calcium 600 with Vitamin D3 600 mg(1,500mg) -400 unit Tablet,Chewable 1 tab PO DAILY RF: 0 multivitamin 1 tab PO DAILY RF: 0 Protonix 40 mg tablet,delayed release (DR/EC) 40 mg PO BID RF: 0 Discharge Orders: Discharge Order (Routine); Ordered 01/03/20 Ordered By: Emily Paez Referrals: Peter Cartagena MD [Primary Care Provider] - 2 weeks Discharge Diet: Advance as tolerated Discharge Activity: Increase activity as tolerated Patient Instructions: Viral Pneumonia (ED) Activity Restrictions/Additional Instructions: You're leaving AGAINST MEDICAL ADVICE and are at risk for or severe permanent disability by doing so. You are more than welcome to return at any time for recheck and for further evaluation and care suture change you change your mind. You have refused a CT of the chest to rule out a blood clot in your lung and repeat blood work to rule out a heart attack. Both of these problems can be life-threatening so if you change your mind, your symptoms worsen or you have any other problems you are more than welcome to return at any time for recheck. Take the steroids as I have prescribed you. Keep yourself at home and quarantine from others until cleared by your doctor or the health department to return to a normal daily activities. Return to ER for increased shortness of breath or for any other cause for concern. Stand Alone Forms: Against Medical Advice Discharge Date/Time: 01/03/20 02:35 Coding Level of Care Code ED [place] [facility] for Gem[facility] Exam Comprehensive
[2020-01-03] VITALS: BP 158/99; PULSE 88; RESP 16; O2SAT 97
[2020-01-03 00:40] LABS: Basophils % 0.4 %; Eosinophils % 0.2 %; Hematocrit 40.8 % (37.0-47.0); Hemoglobin 12.8 g/dL (11.5-15.3); Lymphocytes # 1.8 10^3/uL (0.8-4.8); Lymphocytes % 36.5 %; Mean Corpuscular HGB Conc 31.4 g/dL (30.0-36.0); Mean Corpuscular Hemoglobin 27.5 pg (28.0-34.0); Mean Corpuscular Volume 87.6 fL (81-99); Mean Platelet Volume 11.3 fL (7.4-10.4); Monocytes # 0.9 10^3/uL (0.2-0.9); Monocytes % 18.4 %; Neutrophils % 43.9 %; Nucleated Red Blood Cells % 0 %; Platelet Count 241 10^3/cmm (130-400); Red Blood Count 4.66 10^6/uL (4.1-5.3); Red Cell Distribution Width 15.5 % (12.1-15.1); White Blood Count 4.8 10^3/uL (4.0-10.0)
[2020-01-03 00:51] LABS: INR 1.08 (0.8-1.2)
[2020-01-03 00:52] LABS: Fibrinogen 529 mg/dL (174-498); Partial Thromboplastin Time 42.5 SECONDS (23.9-36.7)
[2020-01-03] MEDS: dexamethasone 4 mg/mL INJ 6 MG IVP (00:53)
[2020-01-03] MEDS: ondansetron 2 mg/ML SDV 2 mL 4 MG IV (00:53)
[2020-01-03 00:54] LABS: D Dimer 0.99 ug/mIFEU (0-0.59)
[2020-01-03] MEDS: sodium chloride 0.9% 1,000 ML 75 ML IV (00:54)
[2020-01-03 00:57] LABS: Lactic Sepsis W/Reflex 1.5 mmol/L (0.5-2.2)
[2020-01-03 00:58] LABS: Troponin T (5th) Once 26 ng/L (0-10)
[2020-01-03 01:08] LABS: NT Pro B Type Natriuretic Pept 671 pg/mL (0-125); Procalcitonin 0.25 ng/mL (0-0.5)
[2020-01-03 01:19] LABS: Alanine Aminotransferase 17 U/L (0-33); Albumin Level 4.2 g/dL (3.5-5.2); Alkaline Phosphatase 82 IU/L (35-105); Anion Gap 22.7 (5-19); Aspartate Amino Transferase 42 U/L (0-32); Blood Urea Nitrogen 19 mg/dL (8-23); C Reactive Protein 35.8 mg/L (0.0-4.9); Calcium 9.5 mg/dL (8.5-10.5); Carbon Dioxide 22 mmol/L (22-29); Chloride 97 mmol/L (98-107); Ferritin 48 ng/mL (15-150); Globulin 3.1 g/dL (1.3-4.6); Glucose 81 mg/dL (65-115); Osmolality Calculated 287 mOsm/kg (285-295); Potassium 3.7 mmol/L (3.5-5.1); Sodium 138 mmol/L (136-145); Total Bilirubin 0.8 mg/dL (0.15-1.2); Total Protein 7.3 g/dL (6.6-8.7)
[2020-01-03 01:20] LABS: SARS Covid-2 Antigen Positive (Negative)
[2020-01-03 01:20] LABS: Influenza A by IFA Negative (Negative); Influenza B by IFA Negative (Negative)
[2020-01-03 01:30] VITALS: BP 178/99; PULSE 85; RESP 18; O2SAT 96
[2020-01-03 01:42] LABS: Lactate Dehydrogenase 280 U/L (135-214)
[2020-01-03 02:17] LABS: Troponin(5th) Baseline 26 ng/L (0-10)
[2020-01-03 02:34] VITALS: BP 168/74; PULSE 87; RESP 16; O2SAT 97
== END 2020-01-03 02:35 | disposition home or self-care (01) ==
PROVIDERS: Emergency Provider Emergency Medicine; PCP Internal Medicine
DX: U07.1 COVID-19 (principal); J12.89 Other viral pneumonia; Z79.82 Long term (current) use of aspirin; I25.118 Atherosclerotic heart disease of native coronary artery with other forms of angina pectoris; E78.5 Hyperlipidemia, unspecified; I10 Essential (primary) hypertension; I25.2 Old myocardial infarction; Z87.891 Personal history of nicotine dependence
CPT/HCPCS: 12345; 36600; 71045; 80053; 82728; 82803; 83605; 83615; 83735; 83880; 84145; 84484; 85025; 85378; 85384; 85610; 85730; 86140; 87040; 87426; 87804; 93005; 96361; 96374; 96375; 99283; 99284; J1100; J2405; J7030

== ENCOUNTER → 2020-02-04 11:26 | Outpatient (BNVA) | payer MEDICARE, SELFPAY | PROVIDERS: PCP Internal Medicine; Visit Provider Family Medicine | DX: R30.0 Dysuria (principal); N39.41 Urge incontinence; N39.0 Urinary tract infection, site not specified | CPT/HCPCS: 81003 ==

== ENCOUNTER → 2020-02-25 13:46 | Outpatient (BNVA) | payer MEDICARE, SELFPAY | PROVIDERS: PCP Internal Medicine; Visit Provider Anesthesiology | DX: G89.29 Other chronic pain (principal); M54.42 Lumbago with sciatica, left side; M54.41 Lumbago with sciatica, right side; Z79.891 Long term (current) use of opiate analgesic | CPT/HCPCS: 99212; 99214 ==

== ENCOUNTER → 2020-04-13 14:32 | Outpatient (BNVA) | payer MEDICARE, SELFPAY | PROVIDERS: PCP Family Medicine; Visit Provider Urology | DX: N39.0 Urinary tract infection, site not specified (principal) | CPT/HCPCS: 81003; 87086 ==

== ENCOUNTER → 2020-04-20 12:52 | Outpatient (BNVA) | payer MEDICARE, SELFPAY | PROVIDERS: PCP Family Medicine; Visit Provider Nurse Practitioner | DX: G89.29 Other chronic pain (principal); M54.5 Low back pain; Z79.891 Long term (current) use of opiate analgesic | CPT/HCPCS: 99214 ==

== ENCOUNTER → 2020-05-18 13:07 | Outpatient (BNVA) | payer MEDICARE, SELFPAY | PROVIDERS: PCP Internal Medicine; Visit Provider Nurse Practitioner | DX: G89.29 Other chronic pain (principal); M54.5 Low back pain; G25.81 Restless legs syndrome; Z79.891 Long term (current) use of opiate analgesic | CPT/HCPCS: 99213 ==

== ENCOUNTER → 2020-07-27 12:48 | Outpatient (BNVA) | payer MEDICARE, SELFPAY | PROVIDERS: PCP Internal Medicine; Visit Provider Anesthesiology | DX: G89.29 Other chronic pain (principal); M54.5 Low back pain; Z79.891 Long term (current) use of opiate analgesic | CPT/HCPCS: 99213 ==

== ENCOUNTER → 2020-08-17 13:29 | Outpatient (BNVA) | payer MEDICARE, SELFPAY | PROVIDERS: PCP Internal Medicine; Visit Provider Nurse Practitioner Family | DX: N39.0 Urinary tract infection, site not specified (principal) | CPT/HCPCS: 81003 ==

== ENCOUNTER → 2020-09-23 13:57 | Outpatient (BNVA) | payer MEDICARE, SELFPAY | PROVIDERS: PCP Internal Medicine; Visit Provider Nurse Practitioner | DX: G89.29 Other chronic pain (principal); M54.5 Low back pain; M79.7 Fibromyalgia; Z79.891 Long term (current) use of opiate analgesic | CPT/HCPCS: 99212; 99213 ==

== ENCOUNTER 2020-10-08 15:28 | Outpatient (CLI) | payer MEDICARE, SELFPAY ==
--- NOTE | 2020-10-08 15:43 | XRR_ITS ---
PROCEDURE INFORMATION: Exam: XR Left Hip Exam date and time: 10/08/2020 3:43 PM Age: 74 years old Clinical indication: Hip pain; Left hip; Additional info: M25.552 - pain in left hip TECHNIQUE: Imaging protocol: XR Left hip. Views: 2 or 3 views hip with pelvis when performed. COMPARISON: CT abdomen pelvis w con* [id number] 09/15/2018 12:04 PM FINDINGS: Bones/joints: No fracture or other acute osseous abnormality. No joint narrowing, dislocation, or effusion noted. Soft tissues: The soft tissues appear unremarkable. XR/XR hip LT 2-3V wo/w pel* [id number] IMPRESSION: Unremarkable left hip radiographic series.
--- NOTE | 2020-10-08 15:43 | XRR_ITS ---
PROCEDURE INFORMATION: Exam: XR Spine; Lumbar Exam date and time: 10/08/2020 3:43 PM Age: 74 years old Clinical indication: Pain; Pain: Dorsalgia, unspecified; Additional info: M54.9 - dorsalgia, unspecified TECHNIQUE: Imaging protocol: XR of the spine. Exam focused on the lumbar spine. Views: 1 view. 1 view. COMPARISON: MRI Lumbar Spine w/o [id number] 10/02/2018 3:36 PM FINDINGS: Bones/joints: Moderate levoscoliosis of the lumbar spine. Degenerative facet joint changes throughout the lumbar spine. No compression fractures are identified. SI joints are unremarkable as demonstrated. Soft tissues: The soft tissues appear unremarkable. XR/XR lumbar spine 1V [id number] IMPRESSION: 1. Moderate levoscoliosis of the lumbar spine. 2. No acute abnormality demonstrated.
== END 2020-10-08 15:29 | disposition home or self-care (01) ==
PROVIDERS: PCP Internal Medicine; Visit Provider Internal Medicine
DX: M25.552 Pain in left hip (principal); M54.5 Low back pain; M41.86 Other forms of scoliosis, lumbar region
CPT/HCPCS: 72020; 73502

== ENCOUNTER → 2020-11-03 14:57 | Outpatient (BNVA) | payer MEDICARE, SELFPAY | PROVIDERS: PCP Internal Medicine; Visit Provider Internal Medicine | DX: F50.89 Other specified eating disorder (principal) | CPT/HCPCS: 83550 ==

== ENCOUNTER → 2020-11-08 11:03 | Outpatient (BNVA) | payer MEDICARE, SELFPAY | PROVIDERS: PCP Internal Medicine; Visit Provider Internal Medicine Cardiovascular Disease | DX: E78.2 Mixed hyperlipidemia (principal); I10 Essential (primary) hypertension; I25.118 Atherosclerotic heart disease of native coronary artery with other forms of angina pectoris; R42 Dizziness and giddiness; E03.9 Hypothyroidism, unspecified; R60.0 Localized edema; R94.39 Abnormal result of other cardiovascular function study | CPT/HCPCS: 80048; 80061; 80076; 83880; 84443 ==

== ENCOUNTER → 2020-11-18 13:41 | Outpatient (BNVA) | payer MEDICARE, SELFPAY | PROVIDERS: PCP Internal Medicine; Visit Provider Nurse Practitioner | DX: G89.29 Other chronic pain (principal); M54.5 Low back pain; Z79.891 Long term (current) use of opiate analgesic | CPT/HCPCS: 99213 ==

== ENCOUNTER 2020-11-26 12:48 | Outpatient (CLI) | payer MEDICARE, SELFPAY ==
--- NOTE | 2020-11-26 12:56 | MM_ITS ---
WS: [id number] SCREENING DIGITAL MAMMOGRAM WITH CAD HISTORY: SCREENING COMPARISON: 01/30/2019 and 12/27/2017 Bilateral CC and MLO views submitted. Computer aided detection analyzed. Breast composition: There are scattered areas of fibroglandular density. Near 6:00 of the mid RIGHT b reast is a new 7 mm nodule which has not been present on prior studies and needs to be further evalua rosemary. There are additional asymmetries in the RIGHT breast which are stable. LEFT breast is negative. MM/[place] [id number] IMPRESSION: BI-RADS: 0-Incomplete: Need additional imaging evaluation FOLLOW UP: Need Additional Imaging RIGHT breast: Spot compression views (CC and MLO). True ML. Ultrasound to follo w if abnormality persists.
== END 2020-11-26 12:49 | disposition home or self-care (01) ==
LOC: RADSHAW 12:50
PROVIDERS: PCP Internal Medicine; Visit Provider Internal Medicine
DX: Z12.31 Encounter for screening mammogram for malignant neoplasm of breast (principal)
CPT/HCPCS: 77067

== ENCOUNTER → 2020-12-01 14:32 | Outpatient (BNVA) | payer MEDICARE, SELFPAY | PROVIDERS: PCP Internal Medicine; Visit Provider Anesthesiology Pain Medicine | DX: M70.62 Trochanteric bursitis, left hip (principal); M25.552 Pain in left hip; Y93.9 Activity, unspecified | CPT/HCPCS: 20610 ==

== ENCOUNTER → 2020-12-21 10:27 | Outpatient (BNVA) | payer MEDICARE, SELFPAY | PROVIDERS: PCP Internal Medicine; Visit Provider Internal Medicine | DX: D50.9 Iron deficiency anemia, unspecified (principal); Z01.812 Encounter for preprocedural laboratory examination; Z20.822 Contact with and (suspected) exposure to COVID-19 | CPT/HCPCS: 87635 ==

== ENCOUNTER 2020-12-27 08:16 | Day surgery (SDC) | payer MEDICARE, SELFPAY ==
[2020-12-23 14:10] VITALS: BMI 24.6
[2020-12-27 08:33] VITALS: BP 175/83; PULSE 62; RESP 18; TEMP 36.2; O2SAT 62
[2020-12-27] MEDS: sodium chloride 0.9% 1,000 ML 30 ML IV (08:47)
--- NOTE | 2020-12-27 09:03 | ANES.PREANE2 ---
Pre-Anesthetic Assessment Pre-Anesthetic Assessment: Height/Weight: Height 1.52 m Weight 57.153 kg Temp Pulse Resp BP Pulse Ox 97.2 F L 62 18 175/83 62 L 12/27/20 08:33 12/27/20 08:33 12/27/20 08:33 12/27/20 08:33 12/27/20 08:33 Preop Diagnosis: iron def an Proposed Procedure: Operation Date: 12/27/20 09:00 Proposed Procedures p EGD 02978 D50.9(Not Applicable) - Peter Cartagena MD s Colonoscopy 88693 D50.9(Not Applicable) - Peter Cartagena MD Was Beta Aaron taken within 24 hours: N/A Was Clonidine taken within 24 hours: N/A Last intake: Intake Last Liquid Date 12/26/20 Last Liquid Time 23:00 Last Solid Date 12/25/20 Last Solid Time 18:00 Last Intake: 23:00 Social: Social History: No alcohol and No tobacco Exam: Pre-Anes Outpt Exam: alert, oriented x 3, clear to auscultation bilaterally and regular rate & rhythm Airway: Submandibular: WNL Cervical ROM: WNL MP: 2 Dentition: Partials (lower) Pulmonary: Pulmonary: Cough, ARELLANO and SOB CV/HEM: CV/HEM: Anemia, CAD (angiogram clear 2018) and HTN : : Chronic renal Insufficiency Hepatic: Hepatic: None reported GI: GI: GERD Metabolic: Metabolic: None reported Musc/skel: Musc/skel: Lower Back Pain and OA/DJD Neuropsych: Neuropsych: Anxiety, Depression and Syncope Anesthetic Plan: ASA status: 3 Anesthesia: MAC Risk of > 500 ml blood loss (7ml/kg in children): No Meds/Allergies Current Medications: Current Medications Generic Name Dose Route Start Last Admin Trade Name Freq PRN Reason Stop Dose Admin Sodium Chloride 1,000 mls @ 30 ml s/hr 12/27/20 08:45 12/27/20 08:47 Sodium Chloride 0.9% IV 30 mls/hr .Q24H KAMERON Administration PFSH Anesthesia PFSH: Medical History Abnormal cardiovascular stress test Atherosclerotic heart disease of [place] coronary artery with other forms of angina pectoris Chronic low back pain COVID-19 virus infection Diarrhea Fibromyalgia Hyperlipidemia Hypertension Ileostomy, has currently Long-term current use of opiate analgesic NSTEMI (non-ST elevated myocardial infarction) Pain management contract signed Past heart attack Pyelonephritis Recurrent UTI Restless legs syndrome Urgency incontinence Urinary incontinence Urinary retention Yeast vaginitis Surgical History H/O ileostomy History of reversal of ileostomy Hx of appendectomy (~1973) Hx of foot surgery (~11/2013) RIGHT FOOT Hx of hysterectomy (~1973) Hx of tubal ligation Family History Brother , BONE METS Cancer COLON CANCER Mother Heart disease Family history of thyroid problem Grandmother Heart disease Father Hyperlipidemia Social History Smoking and tobacco status: former smoker Alcohol intake: never Lives independently: Yes Marital status: / History of recent travel: No Data Anesthesia Cardiac Studies: No Data to Display
--- NOTE | 2020-12-27 09:10 | W.PM.OPSFHP ---
Same Day Surgery H&P Indication for Procedure/HPI DATE OF PROCEDURE: December 27, 2020 CHIEF COMPLAINT/INDICATIONFOR SURGICAL PROCEDURE: Iron deficiency anemia PREOP DIAGNOSIS: iron def an PLANNED PROCEDRUE: Operation Date: 12/27/20 09:00 Proposed Procedures p EGD 65987 D50.9(Not Applicable) - Peter Cartagena MD s Colonoscopy 00420 D50.9(Not Applicable) - Peter Cartagena MD Medications/Allergies* Home Medications Medication Instructions Recorded Confirmed Type calcium carbonate-vitamin D3 1 tab PO DAILY 03/28/19 12/24/20 History [Calcium 600 with Vitamin D3] cyanocobalamin (vitamin B-12) 1,000 mcg PO DAILY 03/28/19 12/24/20 History [Vitamin B-12] multivitamin 1 tab PO DAILY 03/28/19 12/24/20 History Lactobacillus acidophilus 10 mg PO DAILY 09/05/19 12/24/20 History cholecalciferol (vitamin D3) 25 25 mcg PO DAILY 10/01/19 12/24/20 History mcg (1,000 unit) capsule lisinopril 20 mg tablet 40 mg PO DIRECTED tab 08/12/20 12/24/20 History pregabalin 225 mg capsule 225 mg PO .at hs cap 08/12/20 12/24/20 History Allergies/Adverse Reactions Allergy/AdvReac Type Severity Reaction Status Date / Time No Known Allergies Allergy Verified 12/24/20 14:36 Current Medications: Generic Name Dose Route Start Last Admin Trade Name Freq PRN Reason Stop Dose Admin Sodium Chloride 1,000 mls @ 30 mls/hr 12/27/20 08:45 12/27/20 08:47 Sodium Chloride 0.9% IV 30 mls/hr .Q24H KAMERON Administration Pertinent History/Comorbid Conditions* Medical History (Updated 11/18/20 @ 15:54 by Peter Cartagena MD) Abnormal cardiovascular stress test Atherosclerotic heart disease of [place] coronary artery with other forms of angina pectoris Chronic low back pain COVID-19 virus infection Diarrhea Fibromyalgia Hyperlipidemia Hypertension Ileostomy, has currently Long-term current use of opiate analgesic NSTEMI (non-ST elevated myocardial infarction) Pain management contract signed Past heart attack Pyelonephritis Recurrent UTI Restless legs syndrome Urgency incontinence Urinary incontinence Urinary retention Yeast vaginitis Surgical History (Updated 04/25/19 @ 12:44 by KIERA Solis) H/O ileostomy History of reversal of ileostomy Hx of appendectomy (~1973) Hx of foot surgery (~11/2013) RIGHT FOOT Hx of hysterectomy (~1973) Hx of tubal ligation Family History (Updated 04/24/19 @ 15:30 by Korina Guajardo LPN) Brother, BONE METS Heart disease Mother Grandmother Hyperlipidemia Father Family history of thyroid problem Mother Cancer Brother COLON CANCER Social History Smoking and tobacco status: former smoker Alcohol intake: never Lives independently: Yes Marital status: / History of recent travel: No Pertinent Exam Findings alert, oriented x 3, clear to auscultation bilaterally, regular rate & rhythm, operative site marked and procedure specific exam findings Recommendations Surgery/Procedure today Coding Level of Care Code Acute 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
[2020-12-27 09:54] VITALS: BP 113/58; PULSE 50; RESP 16; TEMP 36.1; O2SAT 98
[2020-12-27 10:12] VITALS: BP 135/64; PULSE 50; RESP 16; O2SAT 98
--- NOTE | 2020-12-27 10:13 | PC.NURSE ---
HR 50 bpm but is baseline for pt
--- NOTE | 2020-12-27 10:15 | PM.PACU ---
PACU note Post-Anesthesia Exam: awake and vital signs stable Disposition: discharged
[2020-12-27] MEDS: ferric carboxy (IVPB) 750 MG in sodium chloride 0.9% (100 ml) 100 ML 345 MG IV (10:25)
== END 2020-12-27 11:10 | disposition home or self-care (01) ==
PROVIDERS: PCP Internal Medicine; Visit Provider Internal Medicine
PROC: 0DJ08ZZ Inspection of Upper Intestinal Tract, Via Natural or Artificial Opening Endoscopic (ICD-10-PCS; CPT 43235; principal; 2020-12-27 09:00)
PROC: 0DJD8ZZ Inspection of Lower Intestinal Tract, Via Natural or Artificial Opening Endoscopic (ICD-10-PCS; CPT 45378; 2020-12-27 09:00)
DX: D50.9 Iron deficiency anemia, unspecified (principal); K63.89 Other specified diseases of intestine; K31.7 Polyp of stomach and duodenum; G89.29 Other chronic pain; Z86.16 Personal history of COVID-19; M79.7 Fibromyalgia; E78.5 Hyperlipidemia, unspecified; I10 Essential (primary) hypertension; Z79.891 Long term (current) use of opiate analgesic; I25.2 Old myocardial infarction; Z87.891 Personal history of nicotine dependence; I25.10 Atherosclerotic heart disease of native coronary artery without angina pectoris
CPT/HCPCS: 43251; 45378; 88305; 96361; 96365; J1439; J2704; J7030

== ENCOUNTER → 2021-01-25 14:04 | Outpatient (BNVA) | payer MEDICARE, SELFPAY | PROVIDERS: PCP Internal Medicine; Visit Provider Anesthesiology | DX: G89.29 Other chronic pain (principal); M54.50 Low back pain, unspecified; M70.60 Trochanteric bursitis, unspecified hip; Y93.9 Activity, unspecified; Z79.891 Long term (current) use of opiate analgesic | CPT/HCPCS: 99214 ==

== ENCOUNTER → 2021-02-16 13:04 | Outpatient (BNVA) | payer MEDICARE, SELFPAY | PROVIDERS: PCP Internal Medicine; Visit Provider Urology | DX: N39.0 Urinary tract infection, site not specified (principal) | CPT/HCPCS: 81003 ==

== ENCOUNTER → 2021-02-22 15:53 | Outpatient (BNVA) | payer MEDICARE, SELFPAY | PROVIDERS: PCP Internal Medicine; Visit Provider Internal Medicine | DX: E78.2 Mixed hyperlipidemia (principal); D50.9 Iron deficiency anemia, unspecified | CPT/HCPCS: 80053; 80061; 83550 ==

== ENCOUNTER → 2021-03-24 12:57 | Outpatient (BNVA) | payer MEDICARE, SELFPAY | PROVIDERS: PCP Internal Medicine; Visit Provider Anesthesiology | DX: G89.29 Other chronic pain (principal); M54.50 Low back pain, unspecified; M70.60 Trochanteric bursitis, unspecified hip; Y93.9 Activity, unspecified; Z79.891 Long term (current) use of opiate analgesic | CPT/HCPCS: 99213; 99214 ==

== ENCOUNTER → 2021-03-29 14:27 | Outpatient (BNVA) | payer MEDICARE, SELFPAY | PROVIDERS: PCP Internal Medicine; Visit Provider Family Medicine | DX: I10 Essential (primary) hypertension (principal); Z79.899 Other long term (current) drug therapy | CPT/HCPCS: 80048 ==

== ENCOUNTER 2021-04-20 11:05 | Outpatient (CLI) | payer MEDICARE, SELFPAY ==
--- NOTE | 2021-04-20 11:22 | MM_ITS ---
WS: [id number] ADDITIONAL VIEWS RIGHT BREAST HISTORY: ABNORMAL MAMMOGRAM COMPARISON: 11/26/2020, 01/30/2019 and 12/27/2017 Compression views right CC and MLO projection. True ML also submitted. Asymmetry in the central RIGHT breast resolves with additional imaging. After the spot compression vi ews the asymmetry appears similar to the prior studies. MM/[place] [id number] IMPRESSION: BI-RADS: 2-Benign FOLLOW-UP: 1 Year Follow-up Patient to return to annual screening mammography.
== END 2021-04-20 11:06 | disposition home or self-care (01) ==
PROVIDERS: PCP Internal Medicine; Visit Provider Internal Medicine
DX: N64.59 Other signs and symptoms in breast (principal); R92.8 Other abnormal and inconclusive findings on diagnostic imaging of breast
CPT/HCPCS: 77065

== ENCOUNTER → 2021-05-10 15:57 | Outpatient (BNVA) | payer MEDICARE, SELFPAY | PROVIDERS: PCP Internal Medicine; Visit Provider Nurse Practitioner Family | DX: M79.605 Pain in left leg (principal); W19.XXXA Unspecified fall, initial encounter; R60.0 Localized edema; M25.561 Pain in right knee; M25.562 Pain in left knee | CPT/HCPCS: 73562; 73590 ==

== ENCOUNTER → 2021-07-13 11:00 | Outpatient (BNVA) | payer MEDICARE, SELFPAY | PROVIDERS: PCP Internal Medicine; Visit Provider Internal Medicine Cardiovascular Disease | DX: I25.118 Atherosclerotic heart disease of native coronary artery with other forms of angina pectoris (principal); E78.2 Mixed hyperlipidemia; I10 Essential (primary) hypertension; R60.0 Localized edema; Z87.891 Personal history of nicotine dependence; Z79.82 Long term (current) use of aspirin | CPT/HCPCS: 99214 ==

== ENCOUNTER → 2021-07-29 10:18 | Day surgery (SDC) | payer MEDICARE, SELFPAY ==
[2021-07-29 10:54] LABS: Calcium 9.4 mg/dL (8.5-10.5)
[2021-07-29 11:13] VITALS: BP 164/74; PULSE 70; RESP 18; TEMP 37.1; O2SAT 97
[2021-07-29] MEDS: denosumab 60 mg SDV SUBCUT (11:15)
== END ==
LOC: GILAB 10:21
PROVIDERS: PCP Internal Medicine; Visit Provider Internal Medicine
DX: M81.0 Age-related osteoporosis without current pathological fracture (principal)
CPT/HCPCS: 36415; 82310; 96372; J0897

== ENCOUNTER 2021-08-26 14:22 | Outpatient (CLI) | payer MEDICARE, SELFPAY ==
--- NOTE | 2021-08-26 14:31 | XRR_ITS ---
PROCEDURE INFORMATION: Exam: XR Lumbosacral Spine Exam date and time: 08/26/2021 2:30 PM Age: 75 years old Clinical indication: Patient HX: Low back pain, chronic, possible comp FX; Additional info: Eval for new compression FX. TECHNIQUE: Imaging protocol: XR of the lumbosacral spine. Views: 2 or 3 views. COMPARISON: CR XR lumbar spine 1V [id number] 10/08/2020 3:48 PM FINDINGS: Bones/joints: Lumbar spine levoscoliosis again seen similar to prior exam. Multilevel moderate to severe disc space narrowing and productive degenerative endplate changes throughout the spine, similar to prior exam. Soft tissues: Unremarkable. Vasculature: Scattered vascular calcifications. XR/XR lumbar spine 2-3V* [id number] IMPRESSION: 1. Negative for acute fracture or dislocation. 2. Lumbar spine levoscoliosis again seen similar to prior exam. 3. Multilevel moderate to severe disc space narrowing and productive degenerative endplate changes throughout the spine, similar to prior exam. 4. Scattered vascular calcifications.
== END 2021-08-26 14:23 | disposition home or self-care (01) ==
PROVIDERS: PCP Internal Medicine; Visit Provider Internal Medicine
DX: M54.59 Other low back pain (principal); G89.29 Other chronic pain; M41.9 Scoliosis, unspecified
CPT/HCPCS: 72100

== ENCOUNTER 2021-08-29 06:00 | Outpatient (RCR) | payer MEDICARE, SELFPAY | END 2021-09-22 23:59 | disposition home or self-care (01) | LOC: GPT 06:00 | PROVIDERS: PCP Internal Medicine; Referring Provider Nurse Practitioner Family; Visit Provider Nurse Practitioner Family | DX: R29.898 Other symptoms and signs involving the musculoskeletal system (principal); R26.81 Unsteadiness on feet | CPT/HCPCS: 97110; 97112; 97140; 97162; 97530; 97535 ==

== ENCOUNTER 2021-09-23 06:00 | Outpatient (RCR) | payer MEDICARE, SELFPAY | END 2021-10-23 23:59 | disposition home or self-care (01) | LOC: GPT 06:00 | PROVIDERS: PCP Internal Medicine; Referring Provider Nurse Practitioner Family; Visit Provider Nurse Practitioner Family | DX: R26.81 Unsteadiness on feet (principal); R29.898 Other symptoms and signs involving the musculoskeletal system | CPT/HCPCS: 97110; 97140 ==

== ENCOUNTER 2021-10-24 06:00 | Outpatient (RCR) | payer MEDICARE, SELFPAY | END 2021-11-23 23:59 | disposition home or self-care (01) | LOC: GPT 06:00 | PROVIDERS: PCP Internal Medicine; Referring Provider Nurse Practitioner Family; Visit Provider Nurse Practitioner Family | DX: R53.1 Weakness (principal); R29.898 Other symptoms and signs involving the musculoskeletal system; R26.81 Unsteadiness on feet | CPT/HCPCS: 97110; 97112; 97140; 97530; 97535 ==

== ENCOUNTER 2021-11-24 06:00 | Outpatient (RCR) | payer MEDICARE, SELFPAY | END 2021-12-23 23:59 | disposition home or self-care (01) | LOC: GPT 06:00 | PROVIDERS: PCP Internal Medicine; Visit Provider Nurse Practitioner Family | DX: R26.81 Unsteadiness on feet (principal); M54.59 Other low back pain | CPT/HCPCS: 97110; 97112; 97140; 97164 ==

== ENCOUNTER → 2021-12-27 12:48 | Outpatient (BNVA) | payer MEDICARE, SELFPAY | PROVIDERS: PCP Internal Medicine; Visit Provider Podiatrist Foot & Ankle Surgery | DX: M21.611 Bunion of right foot (principal); M21.612 Bunion of left foot; M20.41 Other hammer toe(s) (acquired), right foot; M20.42 Other hammer toe(s) (acquired), left foot; M21.41 Flat foot [pes planus] (acquired), right foot; M21.42 Flat foot [pes planus] (acquired), left foot; M77.40 Metatarsalgia, unspecified foot; M25.871 Other specified joint disorders, right ankle and foot; Z01.818 Encounter for other preprocedural examination | CPT/HCPCS: 73630; 99204 ==

== ENCOUNTER → 2022-01-19 13:22 | Outpatient (BNVA) | payer MEDICARE, SELFPAY | PROVIDERS: PCP Internal Medicine; Visit Provider Nurse Practitioner Family | DX: I10 Essential (primary) hypertension (principal); I25.118 Atherosclerotic heart disease of native coronary artery with other forms of angina pectoris; Z87.891 Personal history of nicotine dependence | CPT/HCPCS: 99214 ==

== ENCOUNTER → 2022-01-26 13:36 | Outpatient (BNVA) | payer MEDICARE, SELFPAY | PROVIDERS: PCP Internal Medicine; Referring Provider Nurse Practitioner Family; Visit Provider Student in an Organized Health Care Education/Training Program | DX: M17.11 Unilateral primary osteoarthritis, right knee (principal) | CPT/HCPCS: 20610; 73560; 73565; 99203 ==

== ENCOUNTER → 2022-02-13 12:34 | Day surgery (SDC) | payer MEDICARE, SELFPAY ==
[2022-02-13 12:50] VITALS: BP 113/62; PULSE 70; RESP 18; TEMP 36.7; O2SAT 99
[2022-02-13 13:27] LABS: Calcium 8.5 mg/dL (8.5-10.5)
[2022-02-13] MEDS: denosumab 60 mg SDV SUBCUT (13:29)
== END ==
PROVIDERS: PCP Internal Medicine; Visit Provider Internal Medicine
DX: M81.0 Age-related osteoporosis without current pathological fracture (principal)
CPT/HCPCS: 36415; 82310; 96372; J0897

== ENCOUNTER → 2022-04-03 13:27 | Outpatient (BNVA) | payer MEDICARE, SELFPAY | PROVIDERS: PCP Internal Medicine; Visit Provider Urology | DX: N39.0 Urinary tract infection, site not specified (principal) | CPT/HCPCS: 51798; 81003; 99213 ==

== ENCOUNTER 2022-06-15 12:50 | Outpatient (CLI) | payer MEDICARE, SELFPAY ==
--- NOTE | 2022-06-15 13:12 | MM_ITS ---
WS: [id number] BILATERAL SCREENING DIGITAL TOMOSYNTHESIS MAMMOGRAM WITH CAD HISTORY: SCREENING COMPARISON: 04/20/2021, 11/26/2020 Bilateral CC and MLO views with tomosynthesis and synthetic mammography submitted. Computer aided det ection analyzed. Limited positioning. Pectoralis muscles are not included. Breast composition: There are scattered areas of fibroglandular density. No suspicious masses, microc alcifications or architectural distortion. MM/[place] [id number] IMPRESSION: BI-RADS: 2-Benign FOLLOW UP: 1 Year Follow-up
== END 2022-06-15 12:51 | disposition home or self-care (01) ==
LOC: RAD 12:53
PROVIDERS: PCP Internal Medicine; Visit Provider Internal Medicine
DX: Z12.31 Encounter for screening mammogram for malignant neoplasm of breast (principal)
CPT/HCPCS: 77063; 77067

== ENCOUNTER → 2022-07-18 14:37 | Outpatient (BNVA) | payer MEDICARE, SELFPAY | PROVIDERS: PCP Internal Medicine; Visit Provider Podiatrist Foot & Ankle Surgery | DX: M21.611 Bunion of right foot (principal); M21.612 Bunion of left foot; M20.41 Other hammer toe(s) (acquired), right foot; M20.42 Other hammer toe(s) (acquired), left foot; M21.41 Flat foot [pes planus] (acquired), right foot; M21.42 Flat foot [pes planus] (acquired), left foot; M25.871 Other specified joint disorders, right ankle and foot; M77.41 Metatarsalgia, right foot | CPT/HCPCS: 99213 ==

== ENCOUNTER → 2022-07-20 14:31 | Outpatient (BNVA) | payer MEDICARE, SELFPAY | PROVIDERS: PCP Internal Medicine; Visit Provider Student in an Organized Health Care Education/Training Program | DX: M17.11 Unilateral primary osteoarthritis, right knee (principal) | CPT/HCPCS: 20610; 99214; J3301 ==

== ENCOUNTER → 2022-07-24 11:22 | Day surgery (SDC) | payer MEDICARE, SELFPAY ==
[2022-07-24 11:58] VITALS: BP 164/65; PULSE 64; RESP 18; TEMP 37.3; O2SAT 98; BMI 20.5
[2022-07-24 12:39] LABS: Calcium 8.9 mg/dL (8.5-10.5)
[2022-07-24] MEDS: denosumab 60 mg SDV SUBCUT (12:44)
--- NOTE | 2022-07-24 12:50 | PC.NURSE ---
calcium is within normal range. injection given.
== END ==
LOC: GILAB 11:23
PROVIDERS: PCP Internal Medicine; Visit Provider Internal Medicine
DX: M81.0 Age-related osteoporosis without current pathological fracture (principal); Z79.899 Other long term (current) drug therapy
CPT/HCPCS: 36415; 82310; 96372; J0897

== ENCOUNTER 2022-07-28 06:33 | Day surgery (SDC) | payer MEDICARE, SELFPAY ==
[2022-07-27 08:50] VITALS: BMI 20.2
[2022-07-28] VITALS (9 sets, daily range): BP systolic 131–172; BP diastolic 66–85; PULSE 56–66; RESP 16–18; TEMP 36.1–36.6; O2SAT 96–100
--- NOTE | 2022-07-28 | XR_ITS ---
WS: [id number] INTRAOPERATIVE TECHNIQUE: 2 Spot fluoroscopic images for intraoperative purposes. FLUOROSCOPY TIME: 26 seconds DLP: 0.378 mgy/cm CLINICAL INFORMATION: MARC PICS COMPARISON: None. FINDINGS: External screw fixators across the 2nd and 3rd phalanges projecting over the metatarsals. 1st metatar laura bunionectomy with screw fixation. XR/XR foot RT 2V [id number] IMPRESSION: Images obtained for intraoperative purposes.
--- NOTE | 2022-07-28 06:05 | P.HPUD_ITS ---
Surgery/Procedure H&P Update DATE OF PROCEDURE: July 28, 2022 DATE H&P PERFORMED: 07/18/22 CHANGES TO PREVIOUS DOCUMENTATION: None PLANNED PROCEDURE: Operation Date: 07/28/22 08:15 Proposed Procedures p ?Deep hardware removal right foot. CPT code 38042 x2,T84.84 XA,M21.611, M24.574, M24.574(Right) - GISELA Paniagua Modified Jelani and [place] bunionectomy, right foot.? CPT code 68180(Right) - GISELA Paniagua Modified Jelani and [place] bunionectomy, right foot.? CPT code 17609(Right) - Steven Ramirez DPM s Bree osteotomy second metatarsal.? CPT code 49548(Right) - Steven Ramirez DPM s Second and third hammertoe correction, right foot.? CPT code 68122(Right) - Steven Ramirez DPM
--- NOTE | 2022-07-28 06:05 | W.PM.OPSUD ---
Surgery/Procedure H&P Update DATE OF PROCEDURE: July 28, 2022 DATE H&P PERFORMED: 07/18/22 CHANGES TO PREVIOUS DOCUMENTATION: None PLANNED PROCEDURE: Operation Date: 07/28/22 08:15 Proposed Procedures p ?Deep hardware removal right foot. CPT code 82599 x2,T84.84 XA,M21.611, M24.574, M24.574(Right) - GISELA Paniagua Modified Jelani and [place] bunionectomy, right foot.? CPT code 42140(Right) - GISELA Paniagua Modified Jelani and [place] bunionectomy, right foot.? CPT code 35580(Right) - Steven Ramirez DPM s Bree osteotomy second metatarsal.? CPT code 43614(Right) - Steven Ramirez DPM s Second and third hammertoe correction, right foot.? CPT code 83846(Right) - Steven Ramirez DPM
--- NOTE | 2022-07-28 06:43 | ECG_ITS ---
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 Measurements Intervals [place] Rate: 48 P: 40 TN: 164 QRS: -28 QRSD: 127 T: 23 QT: 493 QTc: 445 Interpretive Statements SINUS BRADYCARDIA POSSIBLE LEFT ATRIAL ENLARGEMENT [-0.1mV P-WAVE IN V1/V2] RIGHT BUNDLE BRANCH BLOCK [120+ ms QRS DURATION, UPRIGHT V1, 40+ ms S IN I/aVL/V4/V5/V6] POSSIBLE LEFT VENTRICULAR HYPERTROPHY [VOLTAGE CRITERIA PLUS LAE OR QRS WIDENING] POSSIBLE SEPTAL MYOCARDIAL INFARCTION , OF INDETERMINATE AGE [30 ms Q WAVE IN V1/V2] Compared to ECG 01/02/2020 23:49:37 Myocardial infarct finding now present Sinus rhythm no longer present Left-axis deviation no longer present Electronically Signed On 07-28-2022 11:00:39 CDT by Baltazar Osborne M.D. [id number]
[2022-07-28] MEDS: gabapentin 300 mg Capsule PO (07:04)
[2022-07-28] MEDS: CELEcoxib 200 mg Capsule 400 MG PO (07:04)
--- NOTE | 2022-07-28 07:08 | ANES.PREANE2 ---
Pre-Anesthetic Assessment Height/Weight: Height 1.55 m Weight 48.534 kg Temp Pulse Resp BP Pulse Ox O2 Del Method 97.8 F 63 18 172/85 96 Room Air 07/28/22 06:52 07/28/22 06:52 07/28/22 06:52 07/28/22 06:52 07/28/22 06:52 07/28/22 06:56 Preop Diagnosis: Bunion, hammertoe, painful hardware right foot Operation Date: 07/28/22 08:15 Proposed Procedures p ?Deep hardware removal right foot. CPT code 51181 x2,T84.84 XA,M21.611, M24.574, M24.574(Right) - Steven Ramirez DPM s Modified Jelani and [place] bunionectomy, right foot.? CPT code 23272(Right) - Steven Ramirez DPM s Modified Jelani and [place] bunionectomy, right foot.? CPT code 80446(Right) - Steven Ramirez DPM s Bree osteotomy second metatarsal.? CPT code 45801(Right) - Steven Ramirez DPM s Second and third hammertoe correction, right foot.? CPT code 95049(Right) - Steven Ramirez DPM Familial anesthetic complications: None Was Beta Aaron taken within 24 hours: N/A Was Clonidine taken within 24 hours: N/A Last intake: Intake Last Liquid Date 07/27/22 Last Liquid Time 21:00 Last Solid Date 07/27/22 Last Solid Time 18:30 Social No alcohol and No tobacco Exam alert, oriented x 3, clear to auscultation bilaterally and regular rate & rhythm Airway Mallampati: Class II Dentition: partials CV/HEM Anemia, Coronary Artery Disease, Hypertension and Myocardial Infarction Mitral regurge, aortic stenosis Chronic Renal Insufficiency GI Gastroesophageal Reflux Disease Metabolic Hyperlipidemia and Thyroid Disease [facility] Fibromyalgia Anesthetic Plan ASA status: 3 Anesthesia: General and Regional (specify below) Risk of > 500 ml blood loss (7ml/kg in children): No Medications/Allergies Home Medications Medication Instructions Recorded Confirmed Last Taken Type calcium carbonate 600 mg-vitamin 1 tab PO DAILY 03/28/19 07/27/22 07/24/22 History D3 10 mcg (400 unit) chewable tablet (Calcium 600 with Vitamin D3) cyanocobalamin (vitamin B-12) 1,000 mcg PO DAILY 03/28/19 07/27/22 07/27/22 History 1,000 mcg tablet (Vitamin B-12) multivitamin 1 tab PO DAILY 03/28/19 07/27/22 07/24/22 History fluticasone propionate 50 1 spray intranasal BID #9.9 mL 07/31/19 07/27/22 07/28/21 Rx mcg/actuation nasal spray,suspension (Flonase Allergy Relief) Lactobacillus acidophilus 10 mg PO DAILY 09/05/19 07/27/22 07/24/22 History (Acidophilus capsule) cholecalciferol (vitamin D3) 25 25 mcg PO DAILY 10/01/19 07/27/22 07/27/22 History mcg (1,000 unit) capsule aspirin 81 mg tablet,delayed 81 mg PO DAILY #90 tabs 04/28/20 07/27/22 07/20/22 Rx release pantoprazole 40 mg tablet,delayed 40 mg PO BID #180 tabs 06/15/21 07/27/22 07/27/22 Rx release (Protonix) [id number]-edydudsj-qqhgziw 2 cap PO .qac #180 caps 06/27/21 07/27/22 07/27/22 Rx 40,000-126,000-168,000 unit capsule, delay rel (Zenpep) tizanidine 4 mg tablet 2 mg PO .hs PRN muscle spasticity 07/13/21 07/27/22 07/24/22 History pregabalin 225 mg capsule (Lyrica) 225 mg PO .at hs #60 caps 09/19/21 07/27/22 07/26/22 Rx amlodipine 5 mg tablet 5 mg PO DAILY #100 tabs 11/09/21 07/27/22 07/27/22 Rx triamterene 37.5 1 tab PO DAILY #90 tabs 11/17/21 07/27/22 07/27/22 Rx mg-hydrochlorothiazide 25 mg tablet ropinirole 1 mg tablet 1 mg PO BID #200 tabs 12/05/21 07/27/22 07/27/22 Rx phytonadione (vitamin K1) 1 tab PO DAILY 01/13/22 07/27/22 07/24/22 History ferrous gluconate 324 mg (37.5 mg 324 mg PO BID #90 tabs 01/24/22 07/27/22 07/24/22 Rx iron) tablet oxycodone myristate 18 mg capsule 18 mg PO BID 1 month #60 ea 02/02/22 07/28/22 07/28/22 04:30 Rx sprinkle extended release 12hr(DON'T CRUSH) (Xtampza ER) lisinopril 40 mg tablet 40 mg PO BID #180 tabs 05/25/22 07/27/22 07/27/22 Rx budesonide-formoterol HFA 160 2 puff inhalation BID #10.2 grams 06/15/22 07/27/22 07/24/22 Rx mcg-4.5 mcg/actuation aerosol inhaler (Symbicort) albuterol sulfate 90 mcg/actuation 2 puff inhalation Q6H PRN 07/24/22 07/27/22 Unknown History aerosol inhaler Shortness Of Breath Or Wheezing atorvastatin 40 mg tablet 40 mg PO BEDTIME 07/24/22 07/27/22 07/26/22 History diclofenac sodium 1 % topical gel 2 g topical QID PRN Pain 07/24/22 07/27/22 Unknown History (Voltaren Arthritis Pain) hydrocodone 10 mg-acetaminophen 10 - 325 tab PO Q8H PRN Pain 07/24/22 07/27/22 07/22/22 History 325 mg tablet levothyroxine 75 mcg tablet 75 mcg PO DAILY 07/24/22 07/28/22 07/28/22 04:30 History mirtazapine 30 mg tablet 15 mg PO BEDTIME 07/24/22 07/27/22 07/24/22 History potassium chloride 20 mEq 20 meq PO DAILY 07/24/22 07/27/22 07/24/22 History tablet,extended release(part/cryst) hydrocodone 7.5 mg-acetaminophen 1 tab PO Q6H PRN pain 7 days #28 07/28/22 Unknown Rx 325 mg tablet tabs Allergies Allergy/AdvReac Type Severity Reaction Status Date / Time No Known Allergies Allergy Verified 07/20/22 14:53 PFSH Anesthesia Medical History Abnormal cardiovascular stress test Atherosclerotic heart disease of [place] coronary artery with other forms of angina pectoris Chronic low back pain COVID-19 virus infection Diarrhea Fibromyalgia Greater trochanteric bursitis Hyperlipidemia Hypertension Ileostomy, has currently Long-term current use of opiate analgesic NSTEMI (non-ST elevated myocardial infarction) Osteoporosis Pain management contract signed Past heart attack Pyelonephritis Recurrent UTI Restless legs syndrome Right knee DJD Urgency incontinence Urinary incontinence Urinary retention Yeast vaginitis Surgical History H/O ileostomy History of reversal of ileostomy Hx of appendectomy (~1973) Hx of foot surgery (~11/2013) RIGHT FOOT Hx of hysterectomy (~1973) Hx of tubal ligation Family History Brother , BONE METS Cancer COLON CANCER Mother Heart disease Family history of thyroid problem Grandmother Heart disease Father Hyperlipidemia Social History Smoking and tobacco status: former smoker Second hand smoke exposure: No Alcohol intake: never Substance/Drug Use: never Lives independently: Yes Marital status: / Data Anesthesia Cardiac Studies: No Data to Display
[2022-07-28] MEDS: sodium chloride 0.9% 1,000 ML 30 ML IV (07:21)
[2022-07-28] MEDS: ceFAZolin 2,000 MG in sodium chloride 0.9% (plus) 50 ML 100 MG IV (07:23)
[2022-07-28 07:40] LABS: Anion Gap 15.5 (5-19); Blood Urea Nitrogen 27 mg/dL (8-23); Calcium 8.8 mg/dL (8.5-10.5); Carbon Dioxide 20 mmol/L (22-29); Chloride 109 mmol/L (98-107); Glucose 98 mg/dL (65-115); Osmolality Calculated 295 mOsm/kg (285-295); Potassium 4.5 mmol/L (3.5-5.1); Sodium 140 mmol/L (136-145)
--- NOTE | 2022-07-28 07:50 | PM.OP ---
Operative Report Date of procedure: July 28, 2022 Pre-op diagnosis: Painful retained hardware right great toe proximal phalanx. Painful retained hardware right second toe proximal phalanx. Right bunion deformity. Right second hammertoe deformity. Right third hammertoe deformity. Predislocation syndrome to the right second metatarsal phalangeal joint. Preop Diagnosis Bunion, hammertoe, painful hardware right foot Procedure done: Modified Jelani bunionectomy, right foot. CPT code 70595 Right second hammertoe correction. CPT code 86094 Right third hammertoe correction. CPT code 95997 Deep hardware removal right foot great toe proximal phalanx. CPT code 43977 Depart removal right foot second toe proximal phalanx. CPT code 37316 Implants: [place] 28 3.0 mm partially-threaded headed cannulated screw x2 at long-arm Jelani bunionectomy site 0.062 K wire right second hammertoe correction 0.062 K wire right third hammertoe correction 3-0 Vicryl, 4-0 Vicryl, 4-0 nylon Specimens removed/disposition: None Pathology: None Surgeon: Steven Ramirez D.P.M. Airways Control Specialist: See intraoperative mentation Estimated blood loss: 5 88 IV fluids: 0 Urine output: 0 Complications: None Brief History: 76-year-old female with recurrence of bunion deformity and hammertoe deformities with previous surgeries in [facility] approximately 10 years ago.? She has exhausted conservative treatments consisting of activity modifications, stretching, shoe modifications, anti-inflammatories.? The right bunion has progressed to overriding the second toe causing pain at the great toe, second toe and third toe.? Pain is significant and affects her overall quality of everyday living and she is wishing to discuss surgical intervention for this reason.? I reviewed at length with the patient, the risks, potential complications, benefits, alternatives, expectations, and typical outcomes associated with the surgery. The risks and potential complications were explained in detail, including but not limited to infection, wound dehiscence or soft tissue complications, bleeding and hematoma, chronic edema, neuritis or nerve damage producing numbness or chronic pain, CRPS, failure to relieve pain or worsening pain, thick / painful / unsightly scar, limited motion / stiffness, malposition, delayed union, malunion, or nonunion, fracture, reaction to implants, anesthetic complications, venous thromboembolism, and deformity recurrence.? I discussed the notion of no regrets with the patient as it pertains to complications and outcomes. The patient seemed to understand the nature of the proposed care and required convalescence. They asked appropriate questions, answered to their satisfaction. They are aware no guarantees can be made as to a satisfactory outcome and they understand there may be other possible unforeseen complications or outcomes not listed here that will be treated accordingly if they arise. There were no written or implied guarantees given to the patient. They gave informed consent to proceed.? She will hold her aspirin Sunday prior to surgery. X-ray right foot and left foot taken reviewed.? Increased first intermetatarsal angle, hallux valgus bilaterally.? Hammertoe contractures of lesser digits bilaterally.? Retained hardware at bunionectomy and [place] osteotomy sites.? Pes planus foot type. Procedure: Under mild sedation the patient was brought to the operating room and remained on the gurney in supine position. A timeout was performed. Anesthesia was then administered by the anesthesia service. Local anesthesia was injected by myself consisting of 20 cc of Exparel subcutaneously in a grid like fashion at the dorsal and medial and plantar right forefoot. Well-padded pneumatic tourniquet was applied to the right ankle. The right lower extremity was then scrubbed, prepped and draped utilizing normal aseptic technique. The right foot was exanguinated with an Esmarch bandage and the tourniquet was inflated to 250 mmHg. Attention was directed to the dorsal medial aspect of the right first metatarsal phalangeal joint where a linear longitudinal incision was made medial and parallel to the extensor hallucis longus tendon. Dissection was carried down through subcutaneous tissue to the layer of joint capsule utilizing sharp and blunt technique. Care was taken to retract and preserve neurovascular and tendinous structures. All bleeders were ligated and cauterized as necessary. Linear capsulotomy was performed at the medial aspect of the first metatarsal phalangeal joint. Rongeur was utilized for dissection at the base of the proximal phalanx where 2 threaded K wires were encountered into the bone, these were backed out with vice jacker feeder and passed from the operative field in total, intraoperative C arm confirmed that no remnant or fracturing her fragmentation of the K wires occurred. The incision was irrigated with copious amounts of sterile saline solution. Attention was directed to the medial aspect of the first metatarsal head where a modified Jelani chevron osteotomy was performed maintaining a long dorsal arm through and through with a apex oriented distally. The head of the first metatarsal was translated laterally into an anatomically more corrected position and fixated utilizing standard AO technique with [place] 28 screws these were 3.0 mm headed partially-threaded cannulated screws with excellent bony apposition and compression noted. Remaining medial shelf list transected with a sagittal saw and all rough edges were smoothed. A extensor digitorum brevis tenotomy was performed due to tenting and bowstringing of the extensor hallux tendons. The extensor hallucis longus tendon was elongated utilizing a Z-plasty and reapproximated utilizing 4-0 Vicryl and 4-0 nylon. Smooth range of motion was then appreciated intraoperatively with a anatomically corrected first ray. Range of motion was smooth at the first metatarsal phalangeal joint without crepitus. The incision was irrigated with copious amounts of sterile skin solution and the capsule was closed with 3-0 Vicryl, subcutaneous tissue reapproximated utilizing 4-0 Vicryl and skin with 4-0 nylon. Attention was directed to the dorsal aspect of the second toe where a dual similar elliptical transverse incision was made at the level of proximal interphalangeal joint to extensor tendon apparatus of the right second toe. A transverse tenotomy of the extensor tendons were performed at the proximal interphalangeal joint. A pseudoarthrosis was appreciated and this was sharply excised and the proximal interphalangeal joint of the right second toe was distracted followed by identification of a buried threaded K wire that was retained from previous surgery. This was removed, was noted to have violated the metatarsal phalangeal joint at the base of the proximal phalanx of the second toe. There is a K wire was removed in total without fragmentation or failure and passed from operative field, entirety of the K wire was confirmed to be removed utilizing intraoperative fluoroscopy. Attention was directed to the proximal interphalangeal joint of the right second toe where a a transverse osteotomy perpendicular to the longitudinal axis of the proximal phalanx and base of the intermediate phalanx was performed with a sagittal saw. The incision was irrigated with copious amounts of sterile skin solution and a K wire was integrated from the medial phalanx base out the distal tuft of the right second toe and then integrated into the proximal phalanx down the medullary canal crossing the metatarsophalangeal joint for additional stability. Excellent bony apposition and correction of the arthrodesis site and second toe was appreciated intraoperatively. The right second toe incision was irrigated with copious amounts of sterile skin solution and the extensor tendon was reapproximated with 4-0 Vicryl and skin closed with 4-0 nylon. Attention was directed to the dorsal aspect of the right third toe where converging semielliptical incisions were performed at the dorsal aspect of the right third proximal interphalangeal joint with a skin bridge excised and passed from operative field. Transverse tenotomy was performed in the head of the proximal phalanx and base of the intermediate phalanx were transected with a sagittal saw. The incision was irrigated with skin solution followed by K wire fixation of the right hammertoe crossing the metatarsal phalangeal joint for additional stability. The 0.062 K wire was inserted originally at the base of the intermediate phalanx and antegrade out the distal right third toe following by retrograde fixation across the metatarsal phalangeal joint. Excellent alignment of the third toe was appreciated in all 3 planes. Intraoperative C arm confirmed good bone to bone apposition at the arthrodesis site in a rectus third toe. The incision was irrigated with copious amounts of Staticin solution and closed with the extensor tendon reapproximated with 4-0 Vicryl and skin with 4-0 nylon. The incision sites were dressed with Adaptic, sterile 4 x 4's, Kerlix and Cl wrap followed by application of a cam boot to the right lower extremity. The right ankle tourniquet was then deflated and a prompt hyperemic response was noted to the distal digits of the right foot. Patient tolerated the procedure and anesthesia well and was transferred to the PACU with vital signs stable and vascular status intact. Following a period of postoperative monitoring patient will be discharged home. She may be protected weightbearing with a cam boot at all times. Was advised to decrease her activity, rest and elevate. Was provided pain medication to be taken judiciously as needed for pain, was given at home care instructions as well as schedule follow-up with Dr. Ramirez in podiatry clinic next week.
--- NOTE | 2022-07-28 07:58 | ANES.PROC ---
Anesthesia Procedures Procedure/Date: 07/28/22 Nerve Block ^: Nerve Block 1: Main Anesthesia: general anesthesia Time Out Performed: Yes Consent: requested by attending/covering physician, from patient, from other, risks and benefits reviewed and patient agrees to proceed Nerve block location: popliteal (R) Anesthesia monitors applied: pulse oximetry, EKG, BP cuff and oxygen Nerve block position: supine Anesthetic Used: ropivicaine 0.5% (30 ml) and with decadron (4 mg) Ultrasound used to: recognize landmarks Nerve Stimulator Used?: No Interscalene/Femoral BLK: 4 stimuplex 21 g needle used for position and inplane approach, visualize local anesthetic spread and no vascular puncture identified Injection: neg aspiration of heme Patient Tolerated Procedure: well and no complications Complications: none
[2022-07-28] MEDS: ceFAZolin 2,000 mg SDV 2000 MG IVP (08:25)
--- NOTE | 2022-07-28 12:24 | ANE.PACU2 ---
Inpatient post-anesthesia follow up: Airway intact: Yes Vital signs: Temperature 97.0 F Pulse Rate 66 Respiratory Rate 18 Blood Pressure 163/82 Pulse Oximetry 100 Oxygen Delivery Me thod Room Air Oxygen Flow Rate 6 Fraction of Inspir ed Oxygen Hydration adequate: Yes Nausea and vomiting: No Pain level: 1 Mental status: Baseline
== END 2022-07-28 11:07 | disposition home or self-care (01) ==
PROVIDERS: Anesthesiology; PCP Internal Medicine; Visit Provider Podiatrist Foot & Ankle Surgery
PROC: (CPT 20680; principal; 2022-07-28 08:05)
PROC: (CPT 28298; 2022-07-28 08:05)
PROC: (CPT 28296; 2022-07-28 08:05)
PROC: (CPT 28308; 2022-07-28 08:05)
PROC: (CPT 28285; 2022-07-28 08:05)
DX: T84.84XA Pain due to internal orthopedic prosthetic devices, implants and grafts, initial encounter (principal); G89.18 Other acute postprocedural pain; M21.611 Bunion of right foot; M20.41 Other hammer toe(s) (acquired), right foot; I25.118 Atherosclerotic heart disease of native coronary artery with other forms of angina pectoris; I25.2 Old myocardial infarction; K21.9 Gastro-esophageal reflux disease without esophagitis; E78.5 Hyperlipidemia, unspecified; I10 Essential (primary) hypertension; E07.9 Disorder of thyroid, unspecified; I45.10 Unspecified right bundle-branch block; Z79.899 Other long term (current) drug therapy; Z86.16 Personal history of COVID-19; Z87.891 Personal history of nicotine dependence; Y83.8 Other surgical procedures as the cause of abnormal reaction of the patient, or of later complication, without mention of misadventure at the time of the procedure
CPT/HCPCS: 20680; 28285 ×2; 28292; 36415; 73620; 76000; 80048; 93005; C1713; C9290; J0690; J1100; J2405; J2704; J2795; J3010; J7030

== ENCOUNTER → 2022-08-03 12:46 | Outpatient (BNVA) | payer MEDICARE, SELFPAY | PROVIDERS: PCP Internal Medicine; Visit Provider Podiatrist Foot & Ankle Surgery | DX: M21.611 Bunion of right foot (principal); M21.612 Bunion of left foot; M20.41 Other hammer toe(s) (acquired), right foot; M20.42 Other hammer toe(s) (acquired), left foot; M21.41 Flat foot [pes planus] (acquired), right foot; M21.42 Flat foot [pes planus] (acquired), left foot; M25.871 Other specified joint disorders, right ankle and foot; M77.41 Metatarsalgia, right foot; M79.671 Pain in right foot; M79.672 Pain in left foot | CPT/HCPCS: 93923; 99024 ==

== ENCOUNTER → 2022-08-15 13:33 | Outpatient (BNVA) | payer MEDICARE, SELFPAY | PROVIDERS: PCP Internal Medicine; Visit Provider Podiatrist Foot & Ankle Surgery | DX: Z98.890 Other specified postprocedural states (principal); M21.611 Bunion of right foot; M21.612 Bunion of left foot; M20.41 Other hammer toe(s) (acquired), right foot; M20.42 Other hammer toe(s) (acquired), left foot; M21.41 Flat foot [pes planus] (acquired), right foot; M21.42 Flat foot [pes planus] (acquired), left foot; M77.40 Metatarsalgia, unspecified foot; M25.871 Other specified joint disorders, right ankle and foot; Z01.818 Encounter for other preprocedural examination | CPT/HCPCS: 73630; 99024 ==

== ENCOUNTER → 2022-08-28 13:28 | Outpatient (BNVA) | payer MEDICARE, SELFPAY | PROVIDERS: PCP Internal Medicine; Visit Provider Podiatrist Foot & Ankle Surgery | DX: Z98.890 Other specified postprocedural states (principal); Z01.818 Encounter for other preprocedural examination | CPT/HCPCS: 73630; 93923; 99024 ==

== ENCOUNTER → 2022-09-19 11:27 | Outpatient (BNVA) | payer MEDICARE, SELFPAY | PROVIDERS: PCP Internal Medicine; Visit Provider Podiatrist Foot & Ankle Surgery | DX: Z98.890 Other specified postprocedural states (principal) | CPT/HCPCS: 73630; 99024 ==

== ENCOUNTER → 2022-10-03 13:26 | Outpatient (BNVA) | payer MEDICARE, SELFPAY | PROVIDERS: PCP Internal Medicine; Visit Provider Podiatrist Foot & Ankle Surgery | DX: Z98.890 Other specified postprocedural states (principal); M20.41 Other hammer toe(s) (acquired), right foot | CPT/HCPCS: 73630; 99024 ==

== ENCOUNTER → 2022-11-03 10:38 | Outpatient (BNVA) | payer MEDICARE, SELFPAY | PROVIDERS: PCP Internal Medicine; Visit Provider Internal Medicine Cardiovascular Disease | DX: I10 Essential (primary) hypertension (principal); I25.118 Atherosclerotic heart disease of native coronary artery with other forms of angina pectoris; I25.2 Old myocardial infarction; M79.7 Fibromyalgia; E78.2 Mixed hyperlipidemia; Z87.891 Personal history of nicotine dependence | CPT/HCPCS: 99214 ==

== ENCOUNTER → 2022-11-16 14:08 | Outpatient (BNVA) | payer MEDICARE, SELFPAY | PROVIDERS: PCP Internal Medicine; Visit Provider Podiatrist Foot & Ankle Surgery | DX: Z98.890 Other specified postprocedural states (principal); L60.0 Ingrowing nail | CPT/HCPCS: 73630; 99213 ==

== ENCOUNTER → 2022-12-05 10:42 | Outpatient (BNVA) | payer MEDICARE, SELFPAY | PROVIDERS: PCP Internal Medicine; Visit Provider Student in an Organized Health Care Education/Training Program | DX: M17.0 Bilateral primary osteoarthritis of knee (principal) | CPT/HCPCS: 20610; 99213; J3301 ==

== ENCOUNTER → 2022-12-25 12:56 | Outpatient (BNVA) | payer MEDICARE, SELFPAY | PROVIDERS: PCP Internal Medicine; Visit Provider Podiatrist Foot & Ankle Surgery | DX: M21.611 Bunion of right foot; M21.612 Bunion of left foot; M20.41 Other hammer toe(s) (acquired), right foot; M20.42 Other hammer toe(s) (acquired), left foot; Z87.2 Personal history of diseases of the skin and subcutaneous tissue | CPT/HCPCS: 73630; 99213 ==

== ENCOUNTER → 2023-01-18 10:33 | Outpatient (BNVA) | payer MEDICARE, SELFPAY | PROVIDERS: PCP Internal Medicine; Visit Provider Podiatrist Foot & Ankle Surgery | DX: L60.0 Ingrowing nail (principal) | CPT/HCPCS: 11750 ==

== ENCOUNTER → 2023-02-01 11:19 | Outpatient (BNVA) | payer MEDICARE, SELFPAY | PROVIDERS: PCP Internal Medicine; Visit Provider Podiatrist Foot & Ankle Surgery | DX: L60.0 Ingrowing nail (principal) | CPT/HCPCS: 99213 ==

== ENCOUNTER → 2023-03-27 13:19 | Outpatient (BNVA) | payer MEDICARE, SELFPAY | PROVIDERS: PCP Internal Medicine; Visit Provider Physician Assistant | DX: M17.0 Bilateral primary osteoarthritis of knee (principal) | CPT/HCPCS: 20610; 99213; J3301 ==

== ENCOUNTER → 2023-04-03 15:23 | Outpatient (BNVA) | payer MEDICARE, SELFPAY | PROVIDERS: PCP Internal Medicine; Visit Provider Family Medicine | DX: R05.9 Cough, unspecified (principal); R06.02 Shortness of breath | CPT/HCPCS: 71046; 87426 ==

== ENCOUNTER → 2023-05-17 11:25 | Outpatient (BNVA) | payer MEDICARE, SELFPAY | PROVIDERS: PCP Internal Medicine; Visit Provider Internal Medicine Cardiovascular Disease | DX: I10 Essential (primary) hypertension (principal); E78.2 Mixed hyperlipidemia; I25.118 Atherosclerotic heart disease of native coronary artery with other forms of angina pectoris; M79.89 Other specified soft tissue disorders; I08.1 Rheumatic disorders of both mitral and tricuspid valves; Z87.891 Personal history of nicotine dependence | CPT/HCPCS: 99214 ==

== ENCOUNTER → 2023-05-22 12:48 | Outpatient (BNVA) | payer MEDICARE, SELFPAY | PROVIDERS: PCP Internal Medicine; Visit Provider Surgery | DX: K44.9 Diaphragmatic hernia without obstruction or gangrene (principal); K46.9 Unspecified abdominal hernia without obstruction or gangrene | CPT/HCPCS: 99204 ==

== ENCOUNTER 2023-05-31 13:11 | Outpatient (CLI) | payer MEDICARE, SELFPAY ==
--- NOTE | 2023-05-31 13:30 | USCV_ITS ---
Ivan Peguero Age: 77 Gender: F : 1945 Exam Date: 05/31/2023 13:27 Ordering Phys: Philly Mijares MD ([email or web address]) Technologist: [place] [facility] [place]: HISTORY: PROCEDURES: Left duplex Venous Insufficiency study of the Deep and Superficial systems was carried out according to normal protocol with the patient in supine positon for deep system and dependent position for the superficial system. FINDINGS: All deep veins demonstrated compressibility without evidence of intraluminal thrombus or increased echogenicity. Spectral analysis of Doppler signals demonstrates normal response to compression maneuvers indicating patency without obstruction. Reflux determinations were made with the patient in the dependent position, the weight being on the contralateral leg. Vein measurements and reflux times are listed below were applicable. No notable reflux was seen at this time. The veins were found to be easily compressible with spontaneous blood flow. Multiple echolucencies were noted in the subcutaneous tissue CONCLUSIONS No evidence of DVT in the above-mentioned identifiable veins, on the left side No significant venous reflux Features of fluid retention/edema in the subcutaneous tissue on the left side Dr Philly Mijares MD [facility] (Electronically Signed) Final Date: 03 June 2023 20:12 S
== END 2023-05-31 13:12 | disposition home or self-care (01) ==
LOC: RAD 13:12
PROVIDERS: PCP Internal Medicine; Visit Provider Internal Medicine Cardiovascular Disease
DX: R60.0 Localized edema (principal)
CPT/HCPCS: 93971

== ENCOUNTER → 2023-06-04 14:04 | Outpatient (BNVA) | payer MEDICARE, SELFPAY | PROVIDERS: PCP Family Medicine; Visit Provider Family Medicine | DX: M79.671 Pain in right foot (principal); M79.641 Pain in right hand; M19.071 Primary osteoarthritis, right ankle and foot; M86.8X7 Other osteomyelitis, ankle and foot | CPT/HCPCS: 73130; 73630 ==

== ENCOUNTER 2023-06-14 08:57 | Outpatient (CLI) | payer MEDICARE, SELFPAY ==
--- NOTE | 2023-06-14 09:15 | FL_ITS ---
WS: [id number] Barium swallow and esophagram, 06/14/2023 Clinical Data: Trouble swallowing, food sticks in mid esophagus. Comparison: None. Fluoroscopy time: 1min [id number] # of spot films: 27 Findings: The patient swallowed the thick and thin barium, and it flowed through the hypopharynx without hesita tion. No stricture, mass, polyp or erosion was seen. The barium entered the esophagus and there were tertiary contractions. There was a large fixed hiatal hernia. The barium entered the hiatal hernia and flowed by gravity into the portion of the stomach b elow the diaphragm. No polyp, mass, erosion, fistula, stricture or obstruction was seen. There was no reflux. Impression: 1. Large fixed hiatal hernia with approximately one third of the stomach above the diaphragm. 2. Proximal esophagus shows tertiary contractions with poor motility. 3. Barium passes into the hiatal hernia and then the abdominal stomach by gravity.
== END 2023-06-14 08:58 | disposition home or self-care (01) ==
LOC: RAD 08:57
PROVIDERS: PCP Family Medicine; Visit Provider Surgery
DX: K44.9 Diaphragmatic hernia without obstruction or gangrene (principal)
CPT/HCPCS: 74220

== ENCOUNTER 2023-06-21 08:17 | Day surgery (SDC) | payer MEDICARE, SELFPAY ==
--- NOTE | 2023-06-21 08:34 | W.PM.OPSFHP ---
Same Day Surgery H&P Indication for Procedure/HPI DATE OF PROCEDURE: June 21, 2023 CHIEF COMPLAINT/INDICATIONFOR SURGICAL PROCEDURE: hiatal hernia PREOP DIAGNOSIS: hiatal hernia PLANNED PROCEDURE: Operation Date: 06/21/23 09:30 Proposed Procedures p 44781 egd K44.9(Not Applicable) - Jeramie Thomas MD Medications/Allergies* Home Medications Medication Instructions Recorded Confirmed Type calcium carbonate 600 mg-vitamin 1 tab PO DAILY 03/28/19 06/19/23 History D3 10 mcg (400 unit) chewable tablet (Calcium 600 with Vitamin D3) cyanocobalamin (vitamin B-12) 1,000 mcg PO DAILY 03/28/19 06/19/23 History 1,000 mcg tablet (Vitamin B-12) multivitamin 1 tab PO DAILY 03/28/19 06/04/23 History cholecalciferol (vitamin D3) 25 25 mcg PO DAILY 10/01/19 06/19/23 History mcg (1,000 unit) capsule albuterol sulfate 90 mcg/actuation 2 puff inhalation Q6H PRN 07/24/22 06/19/23 History aerosol inhaler Shortness Of Breath Or Wheezing atorvastatin 40 mg tablet 40 mg PO BEDTIME 07/24/22 06/19/23 History levothyroxine 75 mcg tablet 75 mcg PO DAILY 07/24/22 06/19/23 History mirtazapine 30 mg tablet 15 mg PO BEDTIME 07/24/22 06/19/23 History potassium chloride 20 mEq 20 meq PO DAILY 07/24/22 06/19/23 History tablet,extended release(part/cryst) cyclobenzaprine 10 mg tablet 10 mg PO ONCE PRN Pain 11/03/22 06/19/23 History hydrocodone 5 mg-acetaminophen 325 1 tab PO DAILY PRN pain 11/03/22 06/19/23 History mg tablet Allergies/Adverse Reactions Allergy/AdvReac Type Severity Reaction Status Date / Time No Known Allergies Allergy Verified 06/04/23 13:35 Pertinent History/Comorbid Conditions* Medical History (Updated 06/04/23 @ 14:29 by Jannet Cisse MD) Right knee DJD Osteoporosis Greater trochanteric bursitis Yeast vaginitis COVID-19 virus infection Diarrhea Urinary retention Urinary incontinence Recurrent UTI Atherosclerotic heart disease of [place] coronary artery with other forms of angina pectoris Abnormal cardiovascular stress test NSTEMI (non-ST elevated myocardial infarction) Hyperlipidemia Hypertension Urgency incontinence Pyelonephritis Ileostomy, has currently Past heart attack Long-term current use of opiate analgesic Pain management contract signed Restless legs syndrome Fibromyalgia Chronic low back pain Surgical History (Updated 08/03/22 @ 13:10 by Steven Ramirez DPM) H/O ileostomy Hx of appendectomy (~1973) Hx of hysterectomy (~1973) History of reversal of ileostomy Hx of tubal ligation Hx of foot surgery (~11/2013) RIGHT FOOT Family History (Updated 04/24/19 @ 15:30 by Korina Guajardo RN) Brother, BONE METS Heart disease Mother Grandmother Hyperlipidemia Father Family history of thyroid problem Mother Cancer Brother COLON CANCER Social History Smoking and tobacco/nicotine status: former use of tobacco/nicotine Second hand smoke exposure: No Alcohol intake: never Substance/Drug Use: never Lives independently: Yes Marital status: / Pertinent Exam Findings alert, oriented x 3 and clear to auscultation bilaterally Recommendations Surgery/Procedure today Coding Level of Care Code Acute Code for Chg Fwd
[2023-06-21 08:50] VITALS: BP 187/81; PULSE 63; RESP 18; TEMP 36.5; O2SAT 98; BMI 25.4
[2023-06-21] MEDS: sodium chloride 0.9% 1,000 ML 30 ML IV (09:01)
--- NOTE | 2023-06-21 09:01 | ANES.PREANE2 ---
Pre-Anesthetic Assessment Height/Weight: Height 1.52 m Weight 58.967 kg Temp Pulse Resp BP Pulse Ox O2 Del Method 97.7 F 63 18 187/81 98 Room Air 06/21/23 08:50 06/21/23 08:50 06/21/23 08:50 06/21/23 08:50 06/21/23 08:50 06/21/23 08:50 Preop Diagnosis: hiatal hernia Operation Date: 06/21/23 09:30 Proposed Procedures p 85169 egd K44.9(Not Applicable) - Jeramie Thomas MD Familial anesthetic complications: None Was Beta Aaron taken within 24 hours: N/A Was Clonidine taken within 24 hours: N/A Last intake: Intake Last Liquid Date 06/21/23 Last Liquid Time 05:30 Last Solid Date 06/20/23 Last Solid Time 19:00 Social No alcohol and No tobacco Exam alert, oriented x 3, clear to auscultation bilaterally and regular rate & rhythm Airway Mallampati: Class I Dentition: partials CV/HEM Arrythmia, Coronary Artery Disease, Hypertension and Myocardial Infarction Mitral valve regurge Anesthetic Plan ASA status: 3 Anesthesia: MAC Risk of > 500 ml blood loss (7ml/kg in children): No Medications/Allergies Home Medications Medication Instructions Recorded Confirmed Last Taken Type calcium carbonate 600 mg-vitamin 1 tab PO DAILY 03/28/19 06/19/23 06/21/23 05:30 History D3 10 mcg (400 unit) chewable tablet (Calcium 600 with Vitamin D3) cyanocobalamin (vitamin B-12) 1,000 mcg PO DAILY 03/28/19 06/19/23 06/21/23 05:30 History 1,000 mcg tablet (Vitamin B-12) multivitamin 1 tab PO DAILY 03/28/19 06/04/23 06/21/23 05:30 History aspirin 81 mg tablet,delayed 81 mg PO DAILY #90 tabs 04/28/20 06/19/23 06/19/23 Rx release szlsok-ilwqsyvs-cjeqwdb 2 cap PO .[facility] #180 caps 06/27/21 06/19/23 06/20/23 19:00 Rx 40,000-126,000-168,000 unit capsule, delay rel (Zenpep) pregabalin 225 mg capsule (Lyrica) 225 mg PO .at #60 caps 09/19/21 06/19/23 06/20/23 Rx ropinirole 1 mg tablet 1 mg PO BID #200 tabs 12/05/21 06/19/23 06/20/23 Rx ferrous gluconate 324 mg (37.5 mg 324 mg PO BID #90 tabs 01/24/22 06/19/23 06/20/23 Rx iron) tablet oxycodone myristate 18 mg capsule 18 mg PO BID 1 month #60 ea 02/02/22 06/19/23 06/20/23 Rx sprinkle extended release 12hr(DON'T CRUSH) (Xtampza ER) albuterol sulfate 90 mcg/actuation 2 puff inhalation Q6H PRN 07/24/22 06/21/23 06/21/23 History aerosol inhaler Shortness Of Breath Or Wheezing 0530 atorvastatin 40 mg tablet 40 mg PO BEDTIME 07/24/22 06/19/23 06/20/23 History levothyroxine 75 mcg tablet 75 mcg PO DAILY 07/24/22 06/19/23 06/21/23 05:30 History mirtazapine 30 mg tablet 15 mg PO BEDTIME 07/24/22 06/19/23 06/21/23 05:30 History potassium chloride 20 mEq 20 meq PO DAILY 07/24/22 06/19/23 06/19/23 History tablet,extended release(part/cryst) Budin Hammer Toe Surfacer #1 ea 10/03/22 06/04/23 Unknown Rx cyclobenzaprine 10 mg tablet 5 mg PO ONCE PRN Pain 11/03/22 06/21/23 06/20/23 History hydrocodone 5 mg-acetaminophen 325 1 tab PO DAILY PRN pain 11/03/22 06/19/23 06/21/23 05:30 History mg tablet diclofenac sodium 1 % topical gel 2 g topical QID PRN Pain #100 grams 01/03/23 06/19/23 06/19/23 Rx (Voltaren Arthritis Pain) lisinopril 40 mg tablet 40 mg PO BID #180 tabs 05/30/23 06/19/23 06/20/23 Rx budesonide-formoterol HFA 160 2 puff inhalation BID #10.2 grams 06/18/23 06/19/23 06/21/23 05:30 Rx mcg-4.5 mcg/actuation aerosol inhaler (Symbicort) amlodipine 5 mg tablet 5 mg PO DAILY #90 tabs 06/19/23 06/21/23 06/21/23 Rx 0530 triamterene 37.5 1 tab PO DAILY #90 tabs 06/20/23 06/21/23 05:30 Rx mg-hydrochlorothiazide 25 mg tablet Allergies Allergy/AdvReac Type Severity Reaction Status Date / Time No Known Allergies Allergy Verified 06/04/23 13:35 Current Medications Generic Name Dose Route Start Last Admin Trade Name Ekaterina PRN Reason Stop Dose Admin Sodium Chloride 1,000 mls @ 30 mls/hr 06/21/23 08:30 06/21/23 09:01 Sodium Chloride 0.9% IV 30 mls/hr .Q24H KAMERON Administration PFSH Anesthesia Medical History Right knee DJD Osteoporosis Greater trochanteric bursitis Yeast vaginitis COVID-19 virus infection Diarrhea Urinary retention Urinary incontinence Recurrent UTI Atherosclerotic heart disease of [place] coronary artery with other forms of angina pectoris Abnormal cardiovascular stress test NSTEMI (non-ST elevated myocardial infarction) Hyperlipidemia Hypertension Urgency incontinence Pyelonephritis Ileostomy, has currently Past heart attack Long-term current use of opiate analgesic Pain management contract signed Restless legs syndrome Fibromyalgia Chronic low back pain Surgical History H/O ileostomy Hx of appendectomy (~1973) Hx of hysterectomy (~1973) History of reversal of ileostomy Hx of tubal ligation Hx of foot surgery (~11/2013) RIGHT FOOT Family History Brother , BONE METS Cancer COLON CANCER Mother Heart disease Family history of thyroid problem Grandmother Heart disease Father Hyperlipidemia Social History Smoking and tobacco/nicotine status: former use of tobacco/nicotine Second hand smoke exposure: No Alcohol intake: never Substance/Drug Use: never Lives independently: Yes Marital status: / Data Anesthesia Cardiac Studies: No Data to Display
[2023-06-21 09:54] VITALS: BP 140/62; PULSE 63; RESP 18; TEMP 36.3; O2SAT 96
[2023-06-21 10:03] VITALS: BP 136/88; PULSE 64; RESP 18; O2SAT 96
[2023-06-21 10:11] VITALS: BP 149/66; PULSE 58; RESP 18; O2SAT 96
--- NOTE | 2023-06-21 10:25 | ANE.PACU2 ---
Inpatient post-anesthesia follow up: Airway intact: Yes Vital signs: Temperature 97.4 F Pulse Rate 58 Respiratory Rate 18 Blood Pressure 149/66 Pulse Oximetry 96 Oxygen Delivery Me thod Room Air Oxygen Flow Rate Fraction of Inspir ed Oxygen Hydration adequate: Yes Nausea and vomiting: No Pain level: 1 Mental status: Baseline
== END 2023-06-21 10:26 | disposition home or self-care (01) ==
PROVIDERS: PCP Family Medicine; Visit Provider Surgery
PROC: 0DJ08ZZ Inspection of Upper Intestinal Tract, Via Natural or Artificial Opening Endoscopic (ICD-10-PCS; CPT 43235; principal; 2023-06-21 09:30)
DX: K44.9 Diaphragmatic hernia without obstruction or gangrene (principal); I25.2 Old myocardial infarction; E78.5 Hyperlipidemia, unspecified; I10 Essential (primary) hypertension; M79.7 Fibromyalgia; Z87.891 Personal history of nicotine dependence; I25.10 Atherosclerotic heart disease of native coronary artery without angina pectoris; Z79.82 Long term (current) use of aspirin
CPT/HCPCS: 43239; 88305; 88342; J2704; J7030

== ENCOUNTER → 2023-07-11 16:11 | Outpatient (BNVA) | payer MEDICARE, SELFPAY | PROVIDERS: PCP Family Medicine; Visit Provider Nurse Practitioner Family | DX: R50.9 Fever, unspecified (principal); J32.9 Chronic sinusitis, unspecified | CPT/HCPCS: 87400; 87426 ==

== ENCOUNTER → 2023-07-17 10:16 | Outpatient (BNVA) | payer MEDICARE, SELFPAY | PROVIDERS: PCP Family Medicine; Visit Provider Physician Assistant | DX: M17.0 Bilateral primary osteoarthritis of knee (principal) | CPT/HCPCS: 20610; 99213; J3301 ==

== ENCOUNTER → 2023-07-18 15:51 | Outpatient (BNVA) | payer MEDICARE, SELFPAY | PROVIDERS: PCP Family Medicine; Visit Provider Surgery | DX: Z09 Encounter for follow-up examination after completed treatment for conditions other than malignant neoplasm (principal) | CPT/HCPCS: 99213 ==

== ENCOUNTER → 2023-07-23 10:29 | Outpatient (BNVA) | payer MEDICARE, SELFPAY | PROVIDERS: PCP Family Medicine; Visit Provider Podiatrist Foot & Ankle Surgery | DX: M25.871 Other specified joint disorders, right ankle and foot | CPT/HCPCS: 99213 ==

== ENCOUNTER 2023-11-18 23:13 | Inpatient (IN) | payer MEDICARE, SELFPAY ==
[2023-11-18 23:18] VITALS: BP 174/83; PULSE 71; RESP 18; TEMP 36.6; O2SAT 91; BMI 24.4
[2023-11-18 23:26] VITALS: BP 129/94; PULSE 66; RESP 18; O2SAT 97
--- NOTE | 2023-11-18 23:49 | XRR_ITS ---
PROCEDURE INFORMATION: Exam: XR Right Femur Exam date and time: 11/18/2023 11:56 PM Age: 77 years old Clinical indication: Injury or trauma; Blunt trauma; Thigh or upper leg; Right; Patient HX: EMS arrival for fall at home. Patient states she was alone and fell off of toilet at 0200 yesterday and was unable to get off the floor. Family found patient at 1800 yesterday. C/O chest discomfort with left wrist, left knee, and RT thigh pain. ; Additional info: Fall right thigh pain TECHNIQUE: Imaging protocol: Radiologic exam of the right femur. Views: 2 views. COMPARISON: No relevant prior studies available. FINDINGS: Bones/joints: Chondrocalcinosis of the knee joint. Moderate knee joint effusion. No acute fracture or dislocation. Soft tissues: Unremarkable. XR/XR femur RT min 2V* [id number] IMPRESSION: No acute fracture or dislocation.
--- NOTE | 2023-11-18 23:49 | CTR_ITS ---
PROCEDURE INFORMATION: Exam: CT Cervical Spine Without Contrast Exam date and time: 11/19/2023 12:49 AM Age: 77 years old Clinical indication: Injury or trauma; Blunt trauma; Patient HX: EMS arrival for fall at home. Patient states she was alone and fell off of toilet at 0200 yesterday and was unable to get off the floor. ; Additional info: Fall pain TECHNIQUE: Imaging protocol: Computed tomography of the cervical spine without contrast. Radiation optimization: All CT scans at this facility use at least one of these dose optimization techniques: automated exposure control; mA and/or kV adjustment per patient size (includes targeted exams where dose is matched to clinical indication); or iterative reconstruction. COMPARISON: CR XR cervical spine 4-5V [id number] 05/16/2018 2:12 PM RADIATION DOSE METRICS: Total DLP (mGy-cm): 408.37 FINDINGS: Bones: CPPD changes around the dens. Mild retrolisthesis of C3 over C4 and C4 over C5. Posterior osteophyte disc complex at C4-C5 and C3-C4 with mild bony canal stenosis. No acute fracture. No compression deformity Lungs: Lung apices are normal. Thyroid: 7 mm right thyroid nodule. Vasculature: Bilateral carotid artery calcifications. Soft tissues: Unremarkable. CT/CT cervical spin wo con* [id number] IMPRESSION: No acute posttraumatic changes of the cervical spine. COMMENTS: Consistent with the [employer]'s Incidental Findings Committee white paper (J Am Shavon Radiol 2015): In patients aged 35 years and older with an incidental thyroid nodule equal to or greater than 1.[address], MRI or extrathyroidal US, further evaluation with dedicated thyroid US is recommended for patients with normal life expectancy and without comorbidities. For smaller nodules without suspicious features, no further evaluation or follow up is recommended.
--- NOTE | 2023-11-18 23:49 | CTR_ITS ---
PROCEDURE INFORMATION: Exam: CT Head Without Contrast Exam date and time: 11/19/2023 12:46 AM Age: 77 years old Clinical indication: Injury or trauma; Blunt trauma (contusions or hematomas); Patient HX: EMS arrival for fall at home. Patient states she was alone and fell off of toilet at 0200 yesterday and was unable to get off the floor. ; Additional info: Fall, weakness TECHNIQUE: Imaging protocol: Computed tomography of the head without contrast. Radiation optimization: All CT scans at this facility use at least one of these dose optimization techniques: automated exposure control; mA and/or kV adjustment per patient size (includes targeted exams where dose is matched to clinical indication); or iterative reconstruction. COMPARISON: CT head wo con* [id number] 08/24/2018 1:21 PM RADIATION DOSE METRICS: Total DLP (mGy-cm): 1096.58 FINDINGS: Brain: Periventricular white matter and bilateral centrum semiovale hypodensities, consistent with chronic ischemic small vessel disease. No recent infarct, intracranial bleed or mass effect. Diffuse cerebral atrophy, consistent with patient's age. Stable right paramidline arachnoid cyst in the posterior fossa. Cerebral ventricles: Ventricles are in proportion to the degree of atrophy. Pituitary gland and sella: Partially empty sella. Paranasal sinuses: Mucosal disease of the left maxillary sinus. Mastoid air cells: Visualized mastoid air cells are well aerated. Bones: Unremarkable. No acute fracture. Soft tissues: Unremarkable. CT/CT head wo con* [id number] IMPRESSION: No large territorial infarct or intracranial bleed.
--- NOTE | 2023-11-18 23:49 | XRR_ITS ---
PROCEDURE INFORMATION: Exam: XR Chest Exam date and time: 11/18/2023 11:56 PM Age: 77 years old Clinical indication: Injury or trauma; Blunt trauma (contusions or hematomas); Patient HX: EMS arrival for fall at home. Patient states she was alone and fell off of toilet at 0200 yesterday and was unable to get off the floor. Family found patient at 1800 yesterday. C/O chest discomfort with left wrist, left knee, and RT thigh pain. ; Additional info: Fall, prolonged down time TECHNIQUE: Imaging protocol: Radiologic exam of the chest. Views: 1 view. COMPARISON: CR XR chest 1V portable [id number] 01/02/2020 11:35 PM FINDINGS: Lungs: Right lower lobe atelectasis. No focal consolidation. Pleural spaces: Unremarkable. No pleural effusion. No pneumothorax. Heart/Mediastinum: Unremarkable. No cardiomegaly. Vasculature: Aortic arch calcifications. Unfolding of the thoracic aorta. Bones/joints: Curvature of the lumbar spine convex to the left. XR/XR chest 1V portable [id number] IMPRESSION: No posttraumatic changes in the chest.
--- NOTE | 2023-11-18 23:49 | XRR_ITS ---
PROCEDURE INFORMATION: Exam: XR Left Knee Exam date and time: 11/18/2023 11:56 PM Age: 77 years old Clinical indication: Injury or trauma; Blunt trauma; Patient HX: EMS arrival for fall at home. Patient states she was alone and fell off of toilet at 0200 yesterday and was unable to get off the floor. Family found patient at 1800 yesterday. C/O chest discomfort with left wrist, left knee, and RT thigh pain. ; Additional info: Fall L knee pain TECHNIQUE: Imaging protocol: Radiologic exam of the left knee. Views: 3 views. COMPARISON: CR XR foot LT min 3V* [id number] 12/25/2022 1:04 PM FINDINGS: Bones/joints: Lucent line at the anterior aspect of the distal femur seen on the lateral radiograph, suspicious for a nondisplaced fracture. Moderate knee joint effusion. Soft tissues: Normal. XR/XR knee LT 3V* [id number] IMPRESSION: Findings suspicious for a nondisplaced distal femur intra-articular fracture with moderate knee joint effusion.
--- NOTE | 2023-11-18 23:49 | XRR_ITS ---
PROCEDURE INFORMATION: Exam: XR Left Wrist Exam date and time: 11/18/2023 11:56 PM Age: 77 years old Clinical indication: Injury or trauma; Blunt trauma (contusions or hematomas); Patient HX: EMS arrival for fall at home. Patient states she was alone and fell off of toilet at 0200 yesterday and was unable to get off the floor. Family found patient at 1800 yesterday. C/O chest discomfort with left wrist, left knee, and RT thigh pain. ; Additional info: Fall wrist pain TECHNIQUE: Imaging protocol: Radiologic exam of the left wrist. Views: 3 or more views. COMPARISON: No relevant prior studies available. FINDINGS: Bones/joints: Severe degenerative disease of the 1st carpometacarpal joint. No acute fracture or dislocation. Chondrocalcinosis of the TFC. Soft tissues: Normal. XR/XR wrist LT min 3V* [id number] IMPRESSION: No acute fracture or dislocation.
--- NOTE | 2023-11-18 23:57 | W.ED.FALL ---
HPI - Fall General: Chief Complaint: Fall Stated Complaint: FALL Time Seen by Provider: 11/18/23 23:17 History of Present Illness: 77-year-old female who evidently got up around 2 AM out of bed. She fell after using the bathroom she believes. She thinks her knee may have given out on her. For what ever reason, she was unable to get back up. She drove herself to her bedside, but could not get in bed. She was there until around 6 PM when family found her. She presents by ambulance. She complains of right hip thigh and knee pain, left knee pain, and left wrist pain mainly. She has not been ill otherwise. No fevers. No vomiting. No diarrhea. Related Data Home Medications Medication Instructions Recorded Confirmed calcium carbonate 600 mg-vitamin 1 tab PO DAILY 03/28/19 11/19/23 D3 10 mcg (400 unit) chewable tablet (Calcium 600 with Vitamin D3) cyanocobalamin (vitamin B-12) 1,000 mcg PO DAILY 03/28/19 11/19/23 1,000 mcg tablet (Vitamin B-12) multivitamin 1 tab PO DAILY 03/28/19 11/19/23 albuterol sulfate 90 mcg/actuation 2 puff inhalation Q6H PRN 07/24/22 11/19/23 aerosol inhaler Shortness Of Breath Or Wheezing atorvastatin 40 mg tablet 40 mg PO BEDTIME 07/24/22 11/19/23 levothyroxine 75 mcg tablet 75 mcg PO DAILY 07/24/22 11/19/23 mirtazapine 30 mg tablet 30 mg PO BEDTIME 07/24/22 11/19/23 potassium chloride 20 mEq 20 meq PO DAILY 07/24/22 11/19/23 tablet,extended release(part/cryst) aspirin 81 mg tablet,delayed 81 mg PO BEDTIME 11/19/23 11/19/23 release ibuprofen 800 mg tablet 800 mg PO Q8H PRN Mild Pain (Scale 11/19/23 11/19/23 Score 1-4) lisinopril 40 mg tablet 40 mg PO 0700,0300 11/19/23 11/19/23 oxycodone 10 mg tablet 10 - 20 mg PO Q4H PRN Pain, 11/19/23 11/19/23 Moderate pregabalin 225 mg capsule (Lyrica) 225 mg PO BEDTIME 11/19/23 11/19/23 ropinirole 1 mg tablet 0.5 mg PO BEDTIME 11/19/23 11/19/23 Previous Rx's Medication Instructions Recorded bzxrnz-wdducohk-tellnvm 2 cap PO .qac #180 caps 06/27/21 40,000-126,000-168,000 unit capsule, delay rel (Zenpep) ferrous gluconate 324 mg (37.5 mg 324 mg PO BID #90 tabs 01/24/22 iron) tablet Budin Hammer Toe Beam Builder #1 ea 10/03/22 diclofenac sodium 1 % topical gel 2 g topical QID PRN Pain #100 grams 01/03/23 (Voltaren Arthritis Pain) budesonide-formoterol HFA 160 2 puff inhalation BID #10.2 grams 06/18/23 mcg-4.5 mcg/actuation aerosol inhaler (Symbicort) triamterene 37.5 1 tab PO DAILY #90 tabs 06/20/23 mg-hydrochlorothiazide 25 mg tablet amlodipine 5 mg tablet 5 mg PO DAILY #100 tabs 07/13/23 Allergies Allergy/AdvReac Type Severity Reaction Status Date / Time No Known Allergies Allergy Verified 11/18/23 23:26 [facility]: Medical History Enrolled in chronic care management Right knee DJD Osteoporosis Greater trochanteric bursitis Yeast vaginitis COVID-19 virus infection Diarrhea Urinary retention Urinary incontinence Recurrent UTI Atherosclerotic heart disease of [place] coronary artery with other forms of angina pectoris Abnormal cardiovascular stress test NSTEMI (non-ST elevated myocardial infarction) Hyperlipidemia Hypertension Urgency incontinence Pyelonephritis Ileostomy, has currently Past heart attack Long-term current use of opiate analgesic Pain management contract signed Restless legs syndrome Fibromyalgia Chronic low back pain Surgical History H/O ileostomy Hx of appendectomy (~1973) Hx of hysterectomy (~1973) History of reversal of ileostomy Hx of tubal ligation Hx of foot surgery (~11/2013) RIGHT FOOT Family History Brother , BONE METS Cancer COLON CANCER Mother Heart disease Family history of thyroid problem Grandmother Heart disease Father Hyperlipidemia Social History Smoking and tobacco/nicotine status: former use of tobacco/nicotine Second hand smoke exposure: No Alcohol intake: never Substance/Drug Use: never Lives independently: Yes Marital status: / Physical Exam Const: COMMON NORMALS: no acute distress GENERAL APPEARANCE: frail appearing HENMT: COMMON NORMALS: normocephalic and atraumatic HEAD & SCALP: normocephalic and atraumatic FACE & SINUS: normal facial exam and face symmetric Eye: COMMON NORMALS: Equal, round and reactive pupils present and EOMs intact bilaterally PUPIL: Yes Equal, round and reactive pupils present Neck/C-Spine: CERVICAL SPINE: Yes cervical ROM normal Resp: COMMON NORMALS: normal respiratory effort, No use of accessory muscles and clear to auscultation bilaterally AUSCULTATION: clear to auscultation bilaterally Cardio: COMMON NORMALS: regular rate and regular rhythm RATE: regular rate RHYTHM: regular rhythm GI: COMMON NORMALS: Soft to palpation and non-tender PALPATION: Yes Soft to palpation : COMMON NORMALS: Yes no CVA tenderness BLADDER/KIDNEY EXAM: Yes no CVA tenderness Back/Pelvis: COMMON NORMALS: no CVA tenderness Extremity: NARRATIVE EXTREMITY EXAM: Exam of the right lower extremity reveals some anterior and lateral right hip pain. There is pain to the thigh. There is a knee joint effusion. There is knee joint tenderness. No deformity. Exam the left lower extremity reveals a small knee joint effusion. There is knee joint tenderness. No deformity. Exam the left upper extremity reveals left wrist swelling. There is tenderness. There is no significant deformity. Neuro: VINCENT COMA SCALE: document GCS findings Vincent coma scale eye opening: Spontaneous [place] coma scale verbal response: Orientated Esparto coma scale motor response: Obey commands Vincent coma scale total score: 15 SPEECH: speech normal Psych: COMMON NORMALS: mental status grossly normal Course Vital Signs: Vital signs: Vital Signs Temperature 98.2 F 11/19/23 04:00 Pulse Rate 64 11/19/23 04:00 Respiratory Rate 17 11/19/23 04:00 Blood Pressure 124/64 11/19/23 04:00 Pulse Oximetry 96 11/19/23 04:00 Oxygen Delivery Me thod Nasal Cannula 11/19/23 04:00 Oxygen Flow Rate 3 11/19/23 04:00 MDM - Fall Medical Decision Making Head and C-spine CTs are nonacute. Femur x-ray shows no acute fracture, but there is a significant knee joint effusion on the right. There is a knee joint effusion on the left knee film, remark is made of suspicious findings for nondisplaced distal femur fracture, although this is not likely. Wrist x-ray is negative. Patient's CK level is in the 600s. Potassium was 2.9 and will be repleted. Creatinine is 1.1. Urinalysis is negative. Chest is nonacute. Lab Data 11/18/23 00:40 11/18/23 00:40 Radiology Impressions Cervical Spine CT 11/18/23 23:49 IMPRESSION: No acute posttraumatic changes of the cervical spine. COMMENTS: Consistent with the [employer]'s Incidental Findings Committee white paper (J Am Shavon Radiol 2015): In patients aged 35 years and older with an incidental thyroid nodule equal to or greater than 1.[address], MRI or extrathyroidal US, further evaluation with dedicated thyroid US is recommended for patients with normal life expectancy and without comorbidities. For smaller nodules without suspicious features, no further evaluation or follow up is recommended. Chest X-Ray 11/18/23 23:49 IMPRESSION: No posttraumatic changes in the chest. Femur X-Ray 11/18/23 23:49 IMPRESSION: No acute fracture or dislocation. Head CT 11/18/23 23:49 IMPRESSION: No large territorial infarct or intracranial bleed. Knee X-Ray 11/18/23 23:49 IMPRESSION: Findings suspicious for a nondisplaced distal femur intra-articular fracture with moderate knee joint effusion. Wrist X-Ray 11/18/23 23:49 IMPRESSION: No acute fracture or dislocation. Laboratory Results WBC 15.22 10^3/uL (3.29-11.43) H 11/18/23 00:40 RBC 4.23 10^6/uL (3.85-5.65) 11/18/23 00:40 Hgb 12.00 g/dL (11.27-16.99) 11/18/23 00:40 Hct 37.0 % (36-47) 11/18/23 00:40 MCV 87.5 fl (85-98) 11/18/23 00:40 MCH 28.4 pg (27-33) 11/18/23 00:40 MCHC 32.4 g/dL (30-55) 11/18/23 00:40 RDW 14.8 % (12.1-15.1) 11/18/23 00:40 Plt Count 230 10^3/cmm (157-399) 11/18/23 00:40 MPV 11.6 fL (7.4-10.4) H 11/18/23 00:40 Neut % (Auto) 77.7 % 11/18/23 00:40 Lymph % (Auto) 11.1 % 11/18/23 00:40 [place] % (Auto) 10.6 % 11/18/23 00:40 Eos % (Auto) 0.1 % 11/18/23 00:40 Baso % (Auto) 0.1 % 11/18/23 00:40 Neut # (Auto) 11.83 10^3/uL (1.8-7.7) H 11/18/23 00:40 Lymph # (Auto) 1.7 10^3/uL (0.8-4.8) 11/18/23 00:40 [place] # (Auto) 1.6 10^3/uL (0.2-0.9) H 11/18/23 00:40 Eos # (Auto) 0.0 10^3/uL (0.0-0.8) 11/18/23 00:40 Baso # (Auto) 0.0 10^3/uL (0.0-0.1) 11/18/23 00:40 Nucleated RBC % (auto) 0 % 11/18/23 00:40 Nucleated RBCs # 0.0 /100WBC 11/18/23 00:40 Sodium 140 mmol/L (136-145) 11/18/23 00:40 Potassium 2.9 mmol/L (3.5-5.1) L 11/18/23 00:40 Chloride 99 mmol/L (98-107) 11/18/23 00:40 Carbon Dioxide 27 mmol/L (22-29) 11/18/23 00:40 Anion Gap 16.9 (5-19) 11/18/23 00:40 BUN 14 mg/dL (8-23) 11/18/23 00:40 Creatinine 1.1 mg/dL (0.5-0.9) H 11/18/23 00:40 GFR Calculation Not Reportable 11/18/23 00:40 Glucose 105 mg/dL (65-115) 11/18/23 00:40 Calculated Osmolality 291 mOsm/kg (285-295) 11/18/23 00:40 Lactic Acid 1.0 mmol/L (0.5-2.2) 11/18/23 00:40 Calcium 8.9 mg/dL (8.5-10.5) 11/18/23 00:40 Total Bilirubin 2.6 mg/dL (0.15-1.2) H 11/18/23 00:40 AST 34 U/L (0-32) H 11/18/23 00:40 ALT 16 U/L (0-33) 11/18/23 00:40 Alkaline Phosphatase 59 U/L (35-105) 11/18/23 00:40 Creatine Kinase 678 U/L (26-192) H* 11/18/23 00:40 Troponin T Baseline 51 ng/L (0-10) H 11/18/23 00:40 C-Reactive Protein 146.2 mg/L (0.0-4.9) H 11/18/23 00:40 Total Protein 5.6 g/dL (6.6-8.7) L 11/18/23 00:40 Albumin 3.5 g/dL (3.5-5.2) 11/18/23 00:40 Globulin 2.1 g/dL (1.3-4.6) 11/18/23 00:40 Urine Color Yellow (Yellow) 11/19/23 01:25 Urine Appearance Clear (CLEAR) 11/19/23 01:25 Urine pH 5.0 (5-7) 11/19/23 01:25 Ur Specific [place] 1.017 (1.005-1.030) 11/19/23 01:25 Urine Protein Trace (Negative) A 11/19/23 01:25 Urine Glucose (UA) Negative (Normal) 11/19/23: Urine Ketones Negative (Negative) 11/19/23 01:25 Urine Blood Negative (Negative) 11/19/23 01:25 Urine Nitrate Negative (Negative) 11/19/23: Urine Bilirubin Negative (Negative) 11/19/23 01: Urine Urobilinogen 1.0 mg/dL (Negative) 11/19/23 01:25 Ur Leukocyte Esterase Negative (Negative) 11/19/23 01:25 Urine RBC 0-2 /hpf (0-2) 11/19/23 01:25 Urine WBC 0-5 /hpf (0-5) 11/19/23 01:25 Ur Squamous Epith Cells 0-5 /hpf (0-5) 11/19/23 01:25 Amorphous Sediment Not Reportable 11/19/23 01:25 Urine Bacteria None seen /hpf (NONE) 11/19/23 01:25 Hyaline Casts 4.11 /lpf 11/19/23 01:25 All radiology interpretation(s) finalized by discharge Discharge Plan Discharge Patient Disposition: Admitted As Inpatient Admit Provider: Eileen Bright Clinical Impression: Left knee pain, Right knee pain, Rhabdomyolysis Condition: Fair Coding Level of Care Code ED Coat Examiner for Gemma Church
[2023-11-19] VITALS (15 sets, daily range): BP systolic 92–153; BP diastolic 57–92; PULSE 48–82; RESP 16–20; TEMP 36.8–37.7; O2SAT 94–98
[2023-11-19 00:47] LABS: Basophils % 0.1 %; Eosinophils % 0.1 %; Lymphocytes # 1.7 10^3/uL (0.8-4.8); Lymphocytes % 11.1 %; Mean Corpuscular HGB Conc 32.4 g/dL (30-55); Mean Corpuscular Hemoglobin 28.4 pg (27-33); Mean Corpuscular Volume 87.5 fl (85-98); Mean Platelet Volume 11.6 fL (7.4-10.4); Monocytes # 1.6 10^3/uL (0.2-0.9); Monocytes % 10.6 %; Neutrophils # 11.83 10^3/uL (1.8-7.7); Neutrophils % 77.7 %; Nucleated Red Blood Cells % 0 %; Platelet Count 230 10^3/cmm (157-399); Red Blood Count 4.23 10^6/uL (3.85-5.65); Red Cell Distribution Width 14.8 % (12.1-15.1); White Blood Count 15.22 10^3/uL (3.29-11.43)
[2023-11-19] MEDS: sodium chloride 0.9% 1,000 ML 999 ML IV (00:59)
--- NOTE | 2023-11-19 01:02 | ECG_ITS ---
[facility] Test Date: 2023-11-19 Pat Name: Ivan Peguero Department: Room: 277 Gender: Female Collet Driller: : 1945 Requested By: Jai Dallas Order Number: [id number] Soledad MD: Philly Mijares M.D. Measurements Intervals [place] Rate: 64 P: -2 VA: 181 QRS: -51 QRSD: 143 T: 12 QT: 347 QTc: 359 Interpretive Statements SINUS RHYTHM INTRAVENTRICULAR CONDUCTION DELAY [130+ ms QRS DURATION] VOLTAGE CRITERIA FOR LVH [MEETS CRITERIA IN ONE OF: R(aVL), S(V1), R(V5), R(V5/V6)+S(V1)] Compared to ECG 07/28/2022 07:35:55 Intraventricular conduction delay now present Sinus bradycardia no longer present Right bundle-branch block no longer present Myocardial infarct finding no longer present Electronically Signed On 11-19-2023 22:52:01 CDT by Philly Mijares M.D. [id number]
[2023-11-19 01:04] LABS: Troponin(5th) Baseline 51 ng/L (0-10)
[2023-11-19 01:06] LABS: Alanine Aminotransferase 16 U/L (0-33); Albumin Level 3.5 g/dL (3.5-5.2); Alkaline Phosphatase 59 U/L (35-105); Anion Gap 16.9 (5-19); Aspartate Amino Transferase 34 U/L (0-32); Blood Urea Nitrogen 14 mg/dL (8-23); C Reactive Protein 146.2 mg/L (0.0-4.9); Calcium 8.9 mg/dL (8.5-10.5); Carbon Dioxide 27 mmol/L (22-29); Chloride 99 mmol/L (98-107); Creatinine Clr Calc Pharmacy 34.3294; Globulin 2.1 g/dL (1.3-4.6); Glucose 105 mg/dL (65-115); Osmolality Calculated 291 mOsm/kg (285-295); Sodium 140 mmol/L (136-145); Total Bilirubin 2.6 mg/dL (0.15-1.2); Total Protein 5.6 g/dL (6.6-8.7)
[2023-11-19 01:12] LABS: Creatine Phosphokinase 678 U/L (26-192); Potassium 2.9 mmol/L (3.5-5.1)
[2023-11-19 01:36] LABS: Charge for UA Resulting for Rev
[2023-11-19 01:40] LABS: Bilirubin Urine Negative (Negative); Blood Urine Negative (Negative); Glucose Urine UA Negative (Normal); Ketones Urine Negative (Negative); Leukocyte Esterase Urine Negative (Negative); Nitrate Urine Negative (Negative); Protein Urine Trace (Negative); Specific Gravity, Urine 1.017 (1.005-1.030); Urine Appearance Clear (CLEAR); Urine Color Yellow (Yellow)
[2023-11-19 01:45] LABS: Bacteria Urine None Seen /hpf; Hyaline Casts Urine 4.11 /lpf; RBC Urine 0-2 /hpf (0-2); Squamous Epithelial Cell Urine 0-5 /hpf (0-5); WBC Urine 0-5 /hpf (0-5)
[2023-11-19 03:00] LABS: Troponin 5 2HR 50.54 ng/L (0-10)
[2023-11-19 03:01] LABS: Troponin 5 2HR Delta -0.46 ABS# (0-10)
--- NOTE | 2023-11-19 05:02 | P.HP_ITS ---
Providers/Chief Complaint 2 Admitting Physician: Eileen Bright MD Primary Care Provider: Jannet Cisse MD Chief Complaint: FALL History of Present Illness Ivan Peguero is a 77 year old female with PMH chronic pain, maintained on opiates, improved suspected sleep apnea for which patient is pending a sleep study next month, history of osteoarthritis of the knees for which she has had cortisone injections to bilateral joints. She presents to the hospital after having sustained a fall about 24 hours ago. She states that she was using the bathroom, tried to get off the commode and suddenly her legs gave way from under her. This resulted in a fall in her landing on her right knee which has thereafter been swollen and painful. She has been unable to bear any weight on this joint. Eventually she was able to crawl to the bed and called for help and came into the emergency room. CT of the head and neck were normal. X-ray of the left knee notes findings suspicious for a nondisplaced distal femur intra-articular fracture with moderate knee joint effusion, x-ray of the right knee without fracture or dislocation. However these x-ray findings are discordant with the clinical exam with her night knee noted to be acutely swollen and painful rather than the left. Denies any loss of consciousness. Denies any preceding syncopal symptoms. Denies any chest pain dyspnea palpitations. Denies any fever chills. Denies abdominal pain nausea or vomiting. 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 Review of Systems 2 General: Reports: 10 or more systems reviewed and unremarkable except in HPI and below Const: Denies: fever(s), chills or body aches Eyes: Denies: change in vision, blurry vision or photophobia ENMT: Reports: hoarseness; Denies: throat pain, enlarged tonsils, odynophagia or nasal congestion Card: Denies: chest pain, palpitations, irregular heart rhythm, edema, swelling of feet/ankles, lightheadedness, pre-syncope, dyspnea on exertion or orthopnea Resp: Denies: dyspnea, productive cough, non-productive cough, wheezing, stridor, pain on inspiration, change in phlegm color, hemoptysis or chest congestion GI: Denies: abdominal pain, nausea, vomiting, hematemesis, coffee ground emesis, dysphagia, heartburn, diarrhea, constipation, GI cramping, change in stool character, hematochezia or melena : Denies: flank pain, difficulty voiding, dysuria, urinary frequency, urinary urgency, urinary hesitancy or hematuria Musc: Denies: neck pain, back pain, extremity pain, joint swelling, joint warmth or deformity Neuro: Denies: headache(s), numbness in extremities, weakness in extremities, sensory changes, difficulty walking, frequent falls, dizziness, vertigo, behavioral changes, Slurred speech present or seizure-like activity Psych: Denies: anxiety, depression, suicidal ideation or homicidal ideation Endo: Denies: polyuria, polydipsia, tired all the time, cold intolerance or hot flashes Srinivasan/Lymph: Denies: easy bruising or easy bleeding Medications/Allergies Home Medications Medication Instructions Recorded Confirmed Last Taken Type calcium carbonate 600 mg-vitamin 1 tab PO DAILY 03/28/19 11/19/23 06/21/23 05:30 History D3 10 mcg (400 unit) chewable tablet (Calcium 600 with Vitamin D3) cyanocobalamin (vitamin B-12) 1,000 mcg PO DAILY 03/28/19 11/19/23 06/21/23 05:30 History 1,000 mcg tablet (Vitamin B-12) multivitamin 1 tab PO DAILY 03/28/19 11/19/23 06/21/23 05:30 History ulhije-ncvswrhq-xxxcvpo 2 cap PO .[facility] #180 caps 06/27/21 11/19/23 06/20/23 19:00 Rx 40,000-126,000-168,000 unit capsule, delay rel (Zenpep) ferrous gluconate 324 mg (37.5 mg 324 mg PO BID #90 tabs 01/24/22 11/19/23 06/20/23 Rx iron) tablet albuterol sulfate 90 mcg/actuation 2 puff inhalation Q6H PRN 07/24/22 11/19/23 06/21/23 History aerosol inhaler Shortness Of Breath Or Wheezing 0530 atorvastatin 40 mg tablet 40 mg PO BEDTIME 07/24/22 11/19/23 06/20/23 History levothyroxine 75 mcg tablet 75 mcg PO DAILY 07/24/22 11/19/23 06/21/23 05:30 History mirtazapine 30 mg tablet 30 mg PO BEDTIME 07/24/22 11/19/23 06/21/23 05:30 History potassium chloride 20 mEq 20 meq PO DAILY 07/24/22 11/19/23 06/19/23 History tablet,extended release(part/cryst) Budin Hammer [employer]e [employer]ation [employer]er #1 ea 10/03/22 11/19/23 Unknown Rx diclofenac sodium 1 % topical gel 2 g topical QID PRN Pain #100 grams 01/03/23 11/19/23 06/19/23 Rx (Voltaren Arthritis Pain) budesonide-formoterol HFA 160 2 puff inhalation BID #10.2 grams 06/18/23 11/19/23 06/21/23 05:30 Rx mcg-4.5 mcg/actuation aerosol inhaler (Symbicort) triamterene 37.5 1 tab PO DAILY #90 tabs 06/20/23 11/19/23 06/21/23 05:30 Rx mg-hydrochlorothiazide 25 mg tablet amlodipine 5 mg tablet 5 mg PO DAILY #100 tabs 07/13/23 11/19/23 Unknown Rx aspirin 81 mg tablet,delayed 81 mg PO BEDTIME 11/19/23 11/19/23 Unknown History release ibuprofen 800 mg tablet 800 mg PO Q8H PRN Mild Pain (Scale 11/19/23 11/19/23 Unknown History Score 1-4) lisinopril 40 mg tablet 40 mg PO 0700,0300 11/19/23 11/19/23 Unknown History oxycodone 10 mg tablet 10 - 20 mg PO Q4H PRN Pain, 11/19/23 11/19/23 Unknown History Moderate pregabalin 225 mg capsule (Lyrica) 225 mg PO BEDTIME 11/19/23 11/19/23 Unknown History ropinirole 1 mg tablet 0.5 mg PO BEDTIME 11/19/23 11/19/23 Unknown History Allergies Allergy/AdvReac Type Severity Reaction Status Date / Time No Known Allergies Allergy Verified 11/18/23 23:26 PFSH Acute 2 PFSH: Medical History Enrolled in chronic care management Right knee DJD Osteoporosis Greater trochanteric bursitis Yeast vaginitis COVID-19 virus infection Diarrhea Urinary retention Urinary incontinence Recurrent UTI Atherosclerotic heart disease of [place] coronary artery with other forms of angina pectoris Abnormal cardiovascular stress test NSTEMI (non-ST elevated myocardial infarction) Hyperlipidemia Hypertension Urgency incontinence Pyelonephritis Ileostomy, has currently Past heart attack Long-term current use of opiate analgesic Pain management contract signed Restless legs syndrome Fibromyalgia Chronic low back pain Surgical History H/O ileostomy Hx of appendectomy (~1973) Hx of hysterectomy (~1973) History of reversal of ileostomy Hx of tubal ligation Hx of foot surgery (~11/2013) RIGHT FOOT Family History Brother , BONE METS Cancer COLON CANCER Mother Heart disease Family history of thyroid problem Grandmother Heart disease Father Hyperlipidemia Social History Smoking and tobacco/nicotine status: former use of tobacco/nicotine Second hand smoke exposure: No Alcohol intake: never Substance/Drug Use: never Lives independently: Yes Marital status: / Vitals/I&O/Wt Last Vital Signs Temp 98.2 F 11/19/23 04:00 Pulse 64 11/19/23 04:00 Resp 17 11/19/23 04:00 BP 124/64 11/19/23 04:00 Pulse Ox 96 11/19/23 04:00 O2 Del Method Nasal Cannula 11/19/23 04:00 O2 Flow Rate 3 11/19/23 04:00 11/18/23 11/18/23 11/19/23 14:59 22:59 06:59 Intake Total 1000 / 1000 Balance 1000 / 1000 Weight last 48 hrs Weight 62.823 kg Weight 56.699 kg Physical Exam 2 Narrative: General: No acute distress, AO x3 HEENT: PERRLA, pupils bilaterally equal and reactive, pallors not present Chest: Normal vesicular breath sounds, no added sounds, equal good air entry bilaterally CVS: S1-S2 regular, no murmurs, no tachycardia, no gallops, no rubs Abdomen: Soft, nontender, no organomegaly, bowel sounds present Neuro: No focal deficits, no facial deformity, AO x3, does not move her right leg due to pain and knee swelling. Extremities: Right knee swollen, tender to touch. Data 11/18/23 00:40 11/18/23 00:40 Other Labs: Radiology Impressions Cervical Spine CT 11/18/23 23:49 IMPRESSION: No acute posttraumatic changes of the cervical spine. COMMENTS: Consistent with the [employer]'s Incidental Findings Committee white paper (J Am Shavon Radiol 2015): In patients aged 35 years and older with an incidental thyroid nodule equal to or greater than 1.[address], MRI or extrathyroidal US, further evaluation with dedicated thyroid US is recommended for patients with normal life expectancy and without comorbidities. For smaller nodules without suspicious features, no further evaluation or follow up is recommended. Chest X-Ray 11/18/23 23:49 IMPRESSION: No posttraumatic changes in the chest. Femur X-Ray 11/18/23 23:49 Date of Service: 11/18/23 Procedure(s): XR femur RT min 2V* [id number] Accession Number(s): [id number] Report Number: [id number] IMPRESSION: No acute fracture or dislocation. Head CT 11/18/23 23:49 IMPRESSION: No large territorial infarct or intracranial bleed. Knee X-Ray 11/18/23 23:49 Date of Service: 11/18/23 Procedure(s): XR knee LT 3V* [id number] Accession Number(s): [id number] Report Number: [id number] IMPRESSION: Findings suspicious for a nondisplaced distal femur intra-articular fracture with moderate knee joint effusion. Wrist X-Ray 11/18/23 23:49 IMPRESSION: No acute fracture or dislocation. Laboratory Results WBC 15.22 10^3/uL (3.29-11.43) H 11/18/23 00:40 RBC 4.23 10^6/uL (3.85-5.65) 11/18/23 00:40 Hgb 12.00 g/dL (11.27-16.99) 11/18/23 00:40 Hct 37.0 % (36-47) 11/18/23 00:40 MCV 87.5 fl (85-98) 11/18/23 00:40 MCH 28.4 pg (27-33) 11/18/23 00:40 MCHC 32.4 g/dL (30-55) 11/18/23 00:40 RDW 14.8 % (12.1-15.1) 11/18/23 00:40 Plt Count 230 10^3/cmm (157-399) 11/18/23 00:40 MPV 11.6 fL (7.4-10.4) H 11/18/23 00:40 Neut % (Auto) 77.7 % 11/18/23 00:40 Lymph % (Auto) 11.1 % 11/18/23 00:40 [place] % (Auto) 10.6 % 11/18/23 00:40 Eos % (Auto) 0.1 % 11/18/23 00:40 Baso % (Auto) 0.1 % 11/18/23 00:40 Neut # (Auto) 11.83 10^3/uL (1.8-7.7) H 11/18/23 00:40 Lymph # (Auto) 1.7 10^3/uL (0.8-4.8) 11/18/23 00:40 [place] # (Auto) 1.6 10^3/uL (0.2-0.9) H 11/18/23 00:40 Eos # (Auto) 0.0 10^3/uL (0.0-0.8) 11/18/23 00:40 Baso # (Auto) 0.0 10^3/uL (0.0-0.1) 11/18/23 00:40 Nucleated RBC % (auto) 0 % 11/18/23 00:40 Nucleated RBCs # 0.0 /100WBC 11/18/23 00:40 Sodium 140 mmol/L (136-145) 11/18/23 00:40 Potassium 2.9 mmol/L (3.5-5.1) L 11/18/23 00:40 Chloride 99 mmol/L (98-107) 11/18/23 00:40 Carbon Dioxide 27 mmol/L (22-29) 11/18/23 00:40 Anion Gap 16.9 (5-19) 11/18/23 00:40 BUN 14 mg/dL (8-23) 11/18/23 00:40 Creatinine 1.1 mg/dL (0.5-0.9) H 11/18/23 00:40 GFR Calculation Not Reportable 11/18/23 00:40 Glucose 105 mg/dL (65-115) 11/18/23 00:40 Calculated Osmolality 291 mOsm/kg (285-295) 11/18/23 00:40 Lactic Acid 1.0 mmol/L (0.5-2.2) 11/18/23 00:40 Calcium 8.9 mg/dL (8.5-10.5) 11/18/23 00:40 Total Bilirubin 2.6 mg/dL (0.15-1.2) H 11/18/23 00:40 AST 34 U/L (0-32) H 11/18/23 00:40 ALT 16 U/L (0-33) 11/18/23 00:40 Alkaline Phosphatase 59 U/L (35-105) 11/18/23 00:40 Creatine Kinase 678 U/L (26-192) H* 11/18/23 00:40 Troponin T Baseline 51 ng/L (0-10) H 11/18/23 00:40 Troponin T 120 Minute 50.54 ng/L (0-10) H 11/19/23 02:33 Delta Troponin T -0.46 ABS# (0-10) L 11/19/23 02:33 C-Reactive Protein 146.2 mg/L (0.0-4.9) H 11/18/23 00:40 Total Protein 5.6 g/dL (6.6-8.7) L 11/18/23 00:40 Albumin 3.5 g/dL (3.5-5.2) 11/18/23 00:40 Globulin 2.1 g/dL (1.3-4.6) 11/18/23 00:40 TSH 1.07 uIU/mL (0.27-4.20) 11/19/23 02:33 Urine Color Yellow (Yellow) 11/19/23 01:25 Urine Appearance Clear (CLEAR) 11/19/23 01:25 Urine pH 5.0 (5-7) 11/19/23 01:25 Ur Specific [place] 1.017 (1.005-1.030) 11/19/23 01:25 Urine Protein Trace (Negative) A 11/19/23 01:25 Urine Glucose (UA) Negative (Normal) 11/19/23 01:25 Urine Ketones Negative (Negative) 11/19/23 01:25 Urine Blood Negative (Negative) 11/19/23 01:25 Urine Nitrate Negative (Negative) 11/19/23 01:25 Urine Bilirubin Negative (Negative) 11/19/23 01:25 Urine Urobilinogen 1.0 mg/dL (Negative) 11/19/23 01:25 Ur Leukocyte Esterase Negative (Negative) 11/19/23 01:25 Urine RBC 0-2 /hpf (0-2) 11/19/23 01:25 Urine WBC 0-5 /hpf (0-5) 11/19/23 01:25 Ur Squamous Epith Cells 0-5 /hpf (0-5) 11/19/23 01:25 Amorphous Sediment Not Reportable 11/19/23 01:25 Urine Bacteria None seen /hpf (NONE) 11/19/23 01:25 Hyaline Casts 4.11 /lpf 11/19/23 01:25 A&P Assessment and plan (1) Femur fracture: (2) Fall: (3) Wrist injury: (4) Chronic pain: (5) Hypothyroidism: (6) Rhabdomyolysis: (7) Hypokalemia: Plan 77-year-old lady presenting to the hospital today after having sustained a fall at home as described above. Currently has significant right knee swelling, difficulty bearing weight, unable to stand up. She lives alone at home. X-ray of the right knee without acute abnormalities and left knee notes knee effusion with intra-articular fracture of the distal femur. Clinical findings do not correlate with the x-ray. It is in fact her right knee when compared to the left. Will order CT scan of bilateral knees to further assess Orthopedics consulted. No history of syncopal episode, appears to have been a mechanical fall which may have been precipitated by underlying osteoarthritis Patient takes opiates at home, currently she is alert awake and oriented, denies any recent change in her opiate dosing which may have contributed to the fall. While in the hospital, will use hydrocodone APAP 07/26/2024 every 6 hours as needed and monitor. Patient additionally takes Lyrica 225 mg p.o. at bedtime. Continue home doses of amlodipine. Blood pressure currently ranging between 92- 1 20 systolic. Holding off on lisinopril for now. This may be resumed based on blood pressure trend. Check TSH Has a new oxygen requirement today at 3 L/min. Chest x-ray is clear of any infiltrates. No noted rib fracture Reports a past history of suspected sleep apnea, she is due to undergo sleep study in November, wondering if hypoxia may be a more chronic finding for the patient. Rhabdomyolysis with creatinine kinase of 678. Elevated T. bili at 2.6 and AST at 34, hypokalemia 2.9 may be related to dehydration as patient has been laying on the floor for about 24 hours without being able to have any p.o. intake. IV normal saline at 75 cc an hour Hypokalemia to be repleted with 40 mEq KCl via IV Full code DVT prophylaxis: Heparin 5000 every 12 hours subcutaneously Attestations 2 Medical Necessity Statement*: Greater than 2 midnight admission is anticipated at this time Coding Level of Care Code Acute Code for Chg Fwd High MDM includes number and complexity of problems actively addressed during encounter, amount and/or complexity of data reviewed/ordered and described risk of complication, morbidity or mortality of management as documented Diagnoses Femur fracture S72.90XA Fall W19.XXXA Wrist injury S69.90XA Chronic pain G89.29 Hypothyroidism E03.9 Rhabdomyolysis M62.82 Hypokalemia E87.6
[2023-11-19] MEDS: sodium chloride 0.9% 1,000 ML 75 ML IV ×2 (05:24→17:52)
[2023-11-19] MEDS: heparin 5,000 unit/mL INJ 1 mL 5000 UNIT SUBCUT ×2 (05:25→17:52)
[2023-11-19] MEDS: HYDROcodone-acetaminophen 5-325 mg Tablet 1 TAB PO ×2 (05:31→11:55)
[2023-11-19] MEDS: levothyroxine 75 mcg Tablet PO (05:31)
--- NOTE | 2023-11-19 05:42 | ECG_ITS ---
[facility] Test Date: 2023-11-19 Pat Name: Ivan Peguero Department: Room: 277 Gender: Female Travel Manager: : 1945 Requested By: Jai Dallas Order Number: [id number] Soledad MD: Philly Mijares M.D. Measurements Intervals [place] Rate: 62 P: 31 DE: 194 QRS: -26 QRSD: 137 T: -26 QT: 455 QTc: 465 Interpretive Statements SINUS RHYTHM BORDERLINE LEFT AXIS DEVIATION [QRS AXIS < -20] RIGHT BUNDLE BRANCH BLOCK [120+ ms QRS DURATION, UPRIGHT V1, 40+ ms S IN I/aVL/V4/V5/V6] Compared to ECG 11/19/2023 01:02:27 Right bundle-branch block now present Intraventricular conduction delay no longer present Left ventricular hypertrophy no longer present Electronically Signed On 11-19-2023 22:52:24 CDT by Philly Mijares M.D. [email or web address]
--- NOTE | 2023-11-19 06:16 | CT_ITS ---
WS: [id number] CT LEFT KNEE, NONCONTRAST HISTORY: Fall, injury Technique: All CT scans at [facility] use at least one of these dose optimization techniques: automated exposure control; mA and/or kV adjustment per patient size (includes targeted exams where dose is matched to clinical indication); or iterative reconstruction. DLP: 368.01 mGy.cm COMPARISON: Radiograph 06/18/2023 No acute fractures are identified. Mild osteopenia. There are a few scattered lucencies and areas of sclerosis and small osteophytes. No displacement. The talus is intact. Proximal fibula intact. Mild t ricompartment joint space narrowing. Very small joint effusion. Tiny Black's cyst. CT/CT knee LT wo con* [id number] IMPRESSION: 1. No acute fracture identified by CT LEFT knee. Fracture described by radiogr aph is not identified by CT. To confirm there is no marrow edema MRI LEFT knee can be obtained. 2. Small joint effusion and small Black's cyst.
--- NOTE | 2023-11-19 06:16 | CT_ITS ---
WS: [id number] CT RIGHT KNEE, NONCONTRAST HISTORY: Fall Technique: All CT scans at [facility] use at least one of these dose optimization techniques: automated exposure control; mA and/or kV adjustment per patient size (includes targeted exams where dose is matched to clinical indication); or iterative reconstruction. DLP: 412.96 mGy.cm COMPARISON: None available. Bones are osteopenic. Although very subtle there is a change in the trabecular pattern involving the lateral tibial metaphysis. Moderately suspicious for a nondisplaced trabecular injury and fracture. N o additional areas of suspicion. The proximal fibula is negative. Patella is negative. Mild narrowing of the joint spaces with chondromalacia. There is a very large joint effusion with slight increased attenuation. Large Black's cyst. Edema surrounding the knee. CT/CT knee RT wo con* [id number] IMPRESSION: 1. There is a very slight change in the trabecular pattern involving the later al tibial metaphysis. Indeterminate but suspicious for fracture. This can be co nfirmed by MRI. 2. Very large joint effusion and a large Black's cyst.
[2023-11-19 06:23] LABS: Thyroid Stimulating Hormone 1.07 uIU/mL (0.27-4.20)
[2023-11-19] MEDS: lidocaine 1% 5 ML in potassium chloride premix 100 ML 26.25 ML IV (06:55)
[2023-11-19 07:25] LABS: Troponin 5 6HR 52.34 ng/L (0-10)
[2023-11-19 07:32] LABS: Troponin 5 6HR Delta 1.34 ng/L (0-12)
[2023-11-19] MEDS: ipratropium-albuterol 3 mL Neb INHALATION ×3 (07:37→21:00)
[2023-11-19] MEDS: budesonide 0.5 mg/2 mL Neb INHALATION ×2 (07:37→21:01)
[2023-11-19] MEDS: pantoprazole DR 40 mg Tablet PO (08:17)
[2023-11-19 09:54] LABS: Erythrocyte Sedimentation Rate 18 mm/hr (0-15)
--- NOTE | 2023-11-19 10:33 | PC.NURSE ---
This nurse educated patient on need for SCD for DVT prophylaxis. Patient is alert and oriented. Patient refused and said, my knees are in too much pain. This nurse respected patient's decision.
--- NOTE | 2023-11-19 11:54 | MR_ITS ---
WS: [id number] MRI RIGHT KNEE HISTORY: Possible fracture COMPARISON: CT 11/19/2023 Anterior cruciate ligament: Mild mucoid degeneration. No full-thickness tear. Posterior cruciate ligament: Intact. Medial collateral ligament: Fluid surrounding the MCL but no tear. Posterior lateral corner structures: Posterior lateral corner structures are being displaced from the joint line by large osteophytes, extruded disc and fluid. Fluid surrounding the popliteus tendon. Medial menisci: No tear. Lateral meniscus: Anterior and posterior horns are extruded from the joint space. There is a horizont al tear in the posterior horn and anterior horn is very poorly visualized. Limited visualization is d ue to extrusion but there is also abnormal signal within the extruded horn consistent with complex te ar. Extensor mechanism: Mild thinning of the distal quadriceps tendon. Fluid and soft tissue: Very large suprapatellar joint effusion. There is a large amount of fluid and edema surrounding the knee. Large Black's cyst. There are several additional collections which are pr obably areas of bursitis. Osseous and articular structures: Patellofemoral compartment: Normal. Medial compartment: Moderate medial compartment narrowing with moderate diffuse chondromalacia. Delam ination involving the cartilage along the weightbearing surface of the femoral condyle. Lateral compartment: Moderate amount of marrow edema in the lateral femoral condyle and tibial platea u. There are small marginal osteophytes. Cannot confirm a fracture. Majority of the findings appear r elated to degenerative joint disease with reactive marrow edema. MR/MR knee RT wo con* [id number] IMPRESSION: 1. No acute fracture identified. 2. Moderate marrow edema in the lateral femoral condyle and tibial plateau. Th is is most likely reactive marrow edema from advanced degenerative changes in t he lateral compartment. 3. Extruded anterior and posterior horn of the lateral meniscus with complex t ears. 4. Very large suprapatellar joint effusion with surrounding edema. Large Black 's cyst.
--- NOTE | 2023-11-19 12:02 | PM.CONSULT ---
Providers/Reason For Consult Consulting Physician/Specialty*: Hospitalist Reason for Consult*: Right knee pain Attending Physician: Carlos Dye MD Primary Care Provider: Jannet Cisse MD History of Present Illness History of Present Illness Ivan Peguero is a 77 year old female who fell and sustained a right knee injury. A CT scan shows questionable lateral tibial plateau fracture. Patient has a right knee effusion and pain on the lateral side of her knee going all the way up to her hip. X-rays of hip and femur all negative. Review of Systems General: Reports: 10 or more systems reviewed and unremarkable except in HPI and below Const: Denies: fever(s), chills or body aches Eyes: Denies: change in vision, blurry vision or photophobia ENMT: Reports: hoarseness; Denies: throat pain, enlarged tonsils, odynophagia or nasal congestion Card: Denies: chest pain, palpitations, irregular heart rhythm, edema, swelling of feet/ankles, lightheadedness, pre-syncope, dyspnea on exertion or orthopnea Resp: Denies: dyspnea, productive cough, non-productive cough, wheezing, stridor, pain on inspiration, change in phlegm color, hemoptysis or chest congestion GI: Denies: abdominal pain, nausea, vomiting, hematemesis, coffee ground emesis, dysphagia, heartburn, diarrhea, constipation, GI cramping, change in stool character, hematochezia or melena : Denies: flank pain, difficulty voiding, dysuria, urinary frequency, urinary urgency, urinary hesitancy or hematuria Musc: Denies: neck pain, back pain, extremity pain, joint swelling, joint warmth or deformity Neuro: Denies: headache(s), numbness in extremities, weakness in extremities, sensory changes, difficulty walking, frequent falls, dizziness, vertigo, behavioral changes, Slurred speech present or seizure-like activity Psych: Denies: anxiety, depression, suicidal ideation or homicidal ideation Endo: Denies: polyuria, polydipsia, tired all the time, cold intolerance or hot flashes Srinivasan/Lymph: Denies: easy bruising or easy bleeding Medications/Allergies Home Medications Medication Instructions Recorded Confirmed Last Taken Type calcium carbonate 600 mg-vitamin 1 tab PO DAILY 03/28/19 11/19/23 06/21/23 05:30 History D3 10 mcg (400 unit) chewable tablet (Calcium 600 with Vitamin D3) cyanocobalamin (vitamin B-12) 1,000 mcg PO DAILY 03/28/19 11/19/23 06/21/23 05:30 History 1,000 mcg tablet (Vitamin B-12) multivitamin 1 tab PO DAILY 03/28/19 11/19/23 06/21/23 05:30 History wmghrc-lvbqstrn-nozhwog 2 cap PO .qa #180 caps 06/27/21 11/19/23 06/20/23 19:00 Rx 40,000-126,000-168,000 unit capsule, delay rel (Zenpep) ferrous gluconate 324 mg (37.5 mg 324 mg PO BID #90 tabs 01/24/22 11/19/23 06/20/23 Rx iron) tablet albuterol sulfate 90 mcg/actuation 2 puff inhalation Q6H PRN 07/24/22 11/19/23 06/21/23 History aerosol inhaler Shortness Of Breath Or Wheezing 0530 atorvastatin 40 mg tablet 40 mg PO BEDTIME 07/24/22 11/19/23 06/20/23 History levothyroxine 75 mcg tablet 75 mcg PO DAILY 07/24/22 11/19/23 06/21/23 05:30 History mirtazapine 30 mg tablet 30 mg PO BEDTIME 07/24/22 11/19/23 06/21/23 05:30 History potassium chloride 20 mEq 20 meq PO DAILY 07/24/22 11/19/23 06/19/23 History tablet,extended release(part/cryst) Budin Hammer Toe User Experience Architect #1 ea 10/03/22 11/19/23 Unknown Rx diclofenac sodium 1 % topical gel 2 g topical QID PRN Pain #100 grams 01/03/23 11/19/23 06/19/23 Rx (Voltaren Arthritis Pain) budesonide-formoterol HFA 160 2 puff inhalation BID #10.2 grams 06/18/23 11/19/23 06/21/23 05:30 Rx mcg-4.5 mcg/actuation aerosol inhaler (Symbicort) triamterene 37.5 1 tab PO DAILY #90 tabs 06/20/23 11/19/23 06/21/23 05:30 Rx mg-hydrochlorothiazide 25 mg tablet amlodipine 5 mg tablet 5 mg PO DAILY #100 tabs 07/13/23 11/19/23 Unknown Rx aspirin 81 mg tablet,delayed 81 mg PO BEDTIME 11/19/23 11/19/23 Unknown History release ibuprofen 800 mg tablet 800 mg PO Q8H PRN Mild Pain (Scale 11/19/23 11/19/23 Unknown History Score 1-4) lisinopril 40 mg tablet 40 mg PO 0700,0300 11/19/23 11/19/23 Unknown History oxycodone 10 mg tablet 10 - 20 mg PO Q4H PRN Pain, 11/19/23 11/19/23 Unknown History Moderate pregabalin 225 mg capsule (Lyrica) 225 mg PO BEDTIME 11/19/23 11/19/23 Unknown History ropinirole 1 mg tablet 0.5 mg PO BEDTIME 11/19/23 11/19/23 Unknown History Allergies Allergy/AdvReac Type Severity Reaction Status Date / Time No Known Allergies Allergy Verified 11/18/23 23:26 Current Medications Generic Name Dose Route Start Last Admin Trade Name Freq PRN Reason Stop Dose Admin Hydrocodone Bitart/Acetaminophen 1 tab 11/19/23 06:31 11/19/23 11:55 Hydrocodone-Acetaminophen 5-325 Mg Tablet PO 1 tab Q6H PRN Administration MODERATE TO SEVERE PAIN Albuterol/Ipratropium 3 ml 11/19/23 08:00 11/19/23 07:37 Ipratropium-Albuterol 3 Ml Neb INHALATION 3 ml Q6H.RESP KAMERON Administration Budesonide 0.5 mg 11/19/23 08:00 11/19/23 07:37 Budesonide 0.5 Mg/2 Ml Neb INHALATION 0.5 mg BID.RESPIRATORY KAMERON Administration Heparin Sodium (Porcine) 5,000 unit 11/19/23 05:00 11/19/23 05:25 Heparin 5,000 Unit/Ml Inj 1 Ml SUBCUT 5,000 unit Q12H KAMERON Administration Sodium Chloride 1,000 mls @ 75 mls/hr 11/19/23 05:00 11/19/23 05:24 Sodium Chloride 0.9% IV 75 mls/hr .[id number] KAMERON Administration Levothyroxine Sodium 75 mcg 11/19/23 06:00 11/19/23 05:31 Levothyroxine 75 Mcg Tablet PO 75 mcg 0600 KAMERON Administration Pantoprazole Sodium 40 mg 11/19/23 09:00 11/19/23 08:[address] 40 Mg Tablet PO 40 mg DAILY KAMERON Administration PFSH Acute PFSH: Medical History Enrolled in chronic care management Right knee DJD Osteoporosis Greater trochanteric bursitis Yeast vaginitis COVID-19 virus infection Diarrhea Urinary retention Urinary incontinence Recurrent UTI 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 Abnormal cardiovascular stress test NSTEMI (non-ST elevated myocardial infarction) Hyperlipidemia Hypertension Urgency incontinence Pyelonephritis Ileostomy, has currently Past heart attack Long-term current use of opiate analgesic Pain management contract signed Restless legs syndrome Fibromyalgia Chronic low back pain Surgical History H/O ileostomy Hx of appendectomy (~1973) Hx of hysterectomy (~1973) History of reversal of ileostomy Hx of tubal ligation Hx of foot surgery (~11/2013) RIGHT FOOT Family History Brother , BONE METS Cancer COLON CANCER Mother Heart disease Family history of thyroid problem Grandmother Heart disease Father Hyperlipidemia Social History Smoking and tobacco/nicotine status: former use of tobacco/nicotine Second hand smoke exposure: No Alcohol intake: never Substance/Drug Use: never Lives independently: Yes Marital status: / Vitals/I&O/Wt Last Vital Signs Temp 98.5 F 11/19/23 07:32 Pulse 49 L 11/19/23 07:43 Resp 16 11/19/23 07:43 BP 118/68 11/19/23 07:32 Pulse Ox 98 11/19/23 07:43 O2 Del Method Nasal Cannula 11/19/23 07:43 O2 Flow Rate 2 11/19/23 09:51 11/18/23 11/19/23 11/19/23 22:59 06:59 14:59 Intake Total 1120 / 1120 105 / 105 Output Total 250 / 250 Balance 870 / 870 105 / 105 Weight last 48 hrs Weight 137 lb 3.2 oz Weight 138 lb 8 oz Weight 125 lb Physical Exam Narrative: Patient has a right knee effusion. She has point tenderness along the lateral joint line. Data 11/18/23 00:40 11/18/23 00:40 A&P Assessment and plan (1) Right knee pain: Patient has right knee pain along the joint line CT scan is questioning whether there is a tibial plateau fracture. At this point would like to get an MRI to further evaluate her right knee. She is remain nonweightbearing can do range of motion exercises as tolerated. Qualifiers: Chronicity: acute Qualified Code(s): M25.561 - Pain in right knee Coding Level of Care Code Acute Code for [facility] Fwd Diagnoses Acute pain of right knee M25.561 Chronicity: acute
--- NOTE | 2023-11-19 13:57 | P.PN_ITS ---
Subjective 2 Subjective: Patient was seen this morning, she continues to complain of right knee pain, right knee swelling, this is her first fall she tells me that she lives at home by herself, no pain anywhere else, no headache, blurry vision, no nausea, no vomiting, Vitals/I&O/Wt Last Vital Signs Temp 98.4 F 11/19/23 12:00 Pulse 61 11/19/23 12:00 Resp 16 11/19/23 12:00 BP 119/92 11/19/23 12:00 Pulse Ox 96 11/19/23 12:00 O2 Del Method Nasal Cannula 11/19/23 12:00 O2 Flow Rate 2 11/19/23 09:51 11/18/23 11/19/23 11/19/23 22:59 06:59 14:59 Intake Total 1120 / 1120 105 / 105 Output Total 250 / 250 Balance 870 / 870 105 / 105 Weight last 48 hrs Weight 62.233 kg Weight 62.823 kg Weight 56.699 kg Physical Exam 2 Const: COMMON NORMALS: no acute distress and patient oriented x3 Resp: COMMON NORMALS: normal respiratory effort, No retractions, No use of accessory muscles and clear to auscultation bilaterally AUSCULTATION: clear to auscultation bilaterally Cardio: COMMON NORMALS: regular rate, regular rhythm, S1 normal heart sound present and S2 normal heart sound present RATE: regular rate RHYTHM: r egular rhythm HEART SOUNDS: S1 normal heart sound present and S2 normal heart sound present GI: COMMON NORMALS: Normal to inspection, nondistended, normoactive bowel sounds present and non-tender Extremity: COMMON NORMALS: no pedal edema NARRATIVE EXTREMITY EXAM: Right knee, swollen, diffusely tender, no significant overlying erythema, does have an effusion Left hand swelling, particular at the base of the left thumb Neuro: COMMON NORMALS: patient oriented x3 Psych: COMMON NORMALS: mental status grossly normal Data 11/18/23 00:40 11/18/23 00:40 A&P Assessment and plan (1) Femur fracture: (2) Fall: (3) Wrist injury: (4) Chronic pain: (5) Hypothyroidism: (6) Rhabdomyolysis: (7) Hypokalemia: Plan 77-year-old lady presenting to the hospital today after having sustained a fall at home as described above. Currently has significant right knee swelling, difficulty bearing weight, unable to stand up. She lives alone at home. X-ray of the right knee without acute abnormalities and left knee notes knee effusion with intra-articular fracture of the distal femur. Clinical findings do not correlate with the x-ray. It is in fact her right knee when compared to the left. Will order CT scan of bilateral knees to further assess Orthopedics consulted. No history of syncopal episode, appears to have been a mechanical fall which may have been precipitated by underlying osteoarthritis Patient takes opiates at home, currently she is alert awake and oriented, denies any recent change in her opiate dosing which may have contributed to the fall. While in the hospital, will use hydrocodone APAP 07/26/2024 every 6 hours as needed and monitor. Patient additionally takes Lyrica 225 mg p.o. at bedtime. Continue home doses of amlodipine. Blood pressure currently ranging between 92- 1 20 systolic. Holding off on lisinopril for now. This may be resumed based on blood pressure trend. TSH within normal limits WBC 15,000 CRP 169, [place] 2.3, no shortness of breath, no cough, no dysuria, chest x-ray no acute infiltrates, UA within normal limits, does have an elevated T. bili, will get a right upper quadrant ultrasound Has a new oxygen requirement today at 3 L/min. Chest x-ray is clear of any infiltrates. No noted rib fracture Reports a past history of suspected sleep apnea, she is due to undergo sleep study in November, wondering if hypoxia may be a more chronic finding for the patient. Rhabdomyolysis with creatinine kinase of 678. IV fluids Elevated T. bili at 2.6 and AST at 34, hypokalemia 2.9 may be related to dehydration as patient has been laying on the floor for about 24 hours without being able to have any p.o. intake. IV normal saline at 75 cc an hour Hypokalemia to be repleted with 40 mEq KCl via IV NSTEMI, no chest pain complaints, Full code DVT prophylaxis: Heparin 5000 every 12 hours subcutaneously Plan for today elevated white blood cell count monitor for fevers, obtain blood cultures, right upper quadrant ultrasound, is on 3 L elevated troponins, order D-dimer, monitor clinical status closely Attestations 2 Medical Necessity Statement*: Patient requires hospitalization for fall, right knee pain, leukocytosis, hypoxia Diagnoses Femur fracture S72.90XA Fall W19.XXXA Wrist injury S69.90XA Chronic pain G89.29 Hypothyroidism E03.9 Rhabdomyolysis M62.82 Hypokalemia E87.6
--- NOTE | 2023-11-19 14:03 | US_ITS ---
WS: [id number] RIGHT UPPER QUADRANT ULTRASOUND HISTORY: liver and gallbladder COMPARISON: 03/03/2019 Liver: 13.0 cm in length. Normal size liver and echogenicity. No bile duct dilatation or mass. Portal Vein: Normal hepatopetal flow with monophasic waveform. Gallbladder: Slightly contracted gallbladder There is very slight wall thickening measuring 0.3 mm which may be due to partial contraction. No sto willi or sludge identified. CBD: 0.5 cm Pancreas: Poorly visualized. No abnormality identified. Right kidney: 10.0 cm in length. Normal size and echogenicity. No hydronephrosis or mass. Aorta and IVC: Unremarkable abdominal aorta and IVC. No ascites. US/US abdomen limited [id number] IMPRESSION: Normal right upper quadrant ultrasound.
[2023-11-19 15:13] LABS: Basophils % 0.1 %; Eosinophils % 0.2 %; Hematocrit 37.6 % (36-47); Lymphocytes # 2.7 10^3/uL (0.8-4.8); Lymphocytes % 15.3 %; Mean Corpuscular HGB Conc 30.9 g/dL (30-55); Mean Corpuscular Volume 90.6 fl (85-98); Mean Platelet Volume 11.7 fL (7.4-10.4); Monocytes # 1.6 10^3/uL (0.2-0.9); Monocytes % 9.3 %; Neutrophils # 13.06 10^3/uL (1.8-7.7); Neutrophils % 74.6 %; Nucleated Red Blood Cells % 0 %; Platelet Count 207 10^3/cmm (157-399); Red Blood Count 4.15 10^6/uL (3.85-5.65); Red Cell Distribution Width 15.1 % (12.1-15.1)
--- NOTE | 2023-11-19 15:57 | CTR_ITS ---
PROCEDURE INFORMATION: Exam: CTA Chest With Contrast Exam date and time: 11/19/2023 8:41 PM Age: 77 years old Clinical indication: Shortness of breath; Additional info: Hypoxia, elevated wbc, elevaed d dimer, nstemi TECHNIQUE: Imaging protocol: Computed tomographic angiography of the chest with contrast. Exam focused on the arteries. 3D rendering (Not supervised by radiologist): MIP and/or 3D reconstructed images were created by the technologist. Radiation optimization: All CT scans at this facility use at least one of these dose optimization techniques: automated exposure control; mA and/or kV adjustment per patient size (includes targeted exams where dose is matched to clinical indication); or iterative reconstruction. Contrast material: OMNI 350; Contrast volume: 70 ml; Contrast route: INTRAVENOUS (IV); COMPARISON: CT angio chest PE protcl [id number] 07/06/2018 6:35 PM RADIATION DOSE METRICS: Total DLP (mGy-cm): 364 FINDINGS: Pulmonary arteries: No pulmonary embolus. Aorta: Unremarkable. No aortic aneurysm. No aortic dissection. Lungs: Mild atelectasis of the lung bases. Calcified granuloma in the right lower lobe. Pleural spaces: Small bilateral pleural effusions. Heart: Unremarkable. No cardiomegaly. No pericardial effusion. Coronary arteries: Coronary artery calcifications. Lymph nodes: Unremarkable. No enlarged lymph nodes. Diaphragm: Large hiatal hernia containing a large portion of the stomach and causing mass effect on the posterior aspect of the heart. Bones/joints: Unchanged sclerotic focus within L1 vertebral body. Soft tissues: Unremarkable. CT/CT angio chest PE protcl [id number] IMPRESSION: 1. No pulmonary embolus. 2. Large hiatal hernia containing a large portion of the stomach and causing mass effect on the posterior aspect of the heart. 3. Small bilateral pleural effusions with mild subjacent atelectasis.
[2023-11-19] MEDS: oxyCODONE 5 mg IR Tab/Cap 10 MG PO ×2 (16:31→20:57)
[2023-11-19] MEDS: amlodipine 5 mg Tablet PO (16:32)
--- NOTE | 2023-11-19 19:28 | PHA.VACGOAL ---
Vancomycin Goal - Goal Vancomycin Goal:: 10-15 mg/L Vancomycin Indication:: Other (SUSPECTED INFECTION) - Therapy Current therapy:: Pip/Tazo (3.375 GM IVPB Q8H) Day of therpy:: Day [1]of [] . Actual body weight (kg): 62.233 kg [place] body weight: 45.5 KG Dosing weight (kg): 62.233 KG - Data Labs: WBC 17.50 10^3/uL (3.29-11.43) H 11/19/23 15:08 RBC 4.15 10^6/uL (3.85-5.65) 11/19/23 15:08 Hgb 11.60 g/dL (11.27-16.99) 11/19/23 15:08 Hct 37.6 % (36-47) 11/19/23 15:08 MCV 90.6 fl (85-98) 11/19/23 15:08 MCH 28.0 pg (27-33) 11/19/23 15:08 MCHC 30.9 g/dL (30-55) 11/19/23 15:08 RDW 15.1 % (12.1-15.1) 11/19/23 15:08 Sodium 140 mmol/L (136-145) 11/18/23 00:40 Potassium 2.9 mmol/L (3.5-5.1) L 11/18/23 00:40 Chloride 99 mmol/L (98-107) 11/18/23 00:40 Carbon Dioxide 27 mmol/L (22-29) 11/18/23 00:40 Anion Gap 16.9 (5-19) 11/18/23 00:40 BUN 14 mg/dL (8-23) 11/18/23 00:40 Creatinine 1.1 mg/dL (0.5-0.9) H 11/18/23 00:40 GFR Calculation Not Reportable 11/18/23 00:40 Last dialysis session:: N/A Drug administration history:: Medications Piperacillin Sod/Tazobactam (Sod 3.375 gm/ Sodium Chloride) 50 mls @ 12.5 mls/hr IV Q8H KAMERON; Protocol Vancomycin HCl 1,000 mg/ (Sodium Chloride) 250 mls @ 250 mls/hr IV Q36H KAMERON Treatment plan:: new consult Regimen:: VANCOMYCIN 1 GM Q36H Follow up:: SCR DAILY WITH [facility] VANCOMYCIN TROUGH BEFORE 4TH DOSE
[2023-11-19] MEDS: iohexol 350 mg/mL 500 mL Btl (per mL) IV (20:43)
[2023-11-19] MEDS: vancomycin 1,000 MG in sodium chloride 0.9% 250 ML 250 MG IV (20:56)
[2023-11-19] MEDS: atorvastatin 40 mg Tablet PO (20:57)
[2023-11-19] MEDS: pregabalin 75 mg Capsule 225 MG PO (20:57)
[2023-11-19] MEDS: ropinirole 1 mg Tablet 0.5 MG PO (20:57)
[2023-11-19] MEDS: aspirin 81 mg EC Tablet PO (20:57)
[2023-11-19] MEDS: mirtazapine 30 mg Tablet PO (20:57)
[2023-11-19] MEDS: piperacillin-tazobactam 3.375 GM in sodium chloride 0.9% (plus) 50 ML IV (22:00)
[2023-11-20] VITALS (21 sets, daily range): BP systolic 100–121; BP diastolic 55–59; PULSE 55–75; RESP 12–18; TEMP 36.6–38.2; O2SAT 90–96
[2023-11-20] MEDS: acetaminophen 325 mg Tablet 650 MG PO ×3 (00:30→18:58)
[2023-11-20] MEDS: ipratropium-albuterol 3 mL Neb INHALATION ×4 (02:33→20:54)
[2023-11-20 05:13] LABS: Basophils % 0.1 %; Eosinophils % 0.3 %; Hematocrit 32.3 % (36-47); Lymphocytes # 0.9 10^3/uL (0.8-4.8); Lymphocytes % 8.5 %; Mean Corpuscular HGB Conc 31.3 g/dL (30-55); Mean Corpuscular Hemoglobin 28.4 pg (27-33); Mean Corpuscular Volume 90.7 fl (85-98); Mean Platelet Volume 11.3 fL (7.4-10.4); Monocytes # 1.1 10^3/uL (0.2-0.9); Monocytes % 10.3 %; Neutrophils # 8.75 10^3/uL (1.8-7.7); Neutrophils % 80.3 %; Nucleated Red Blood Cells % 0 %; Platelet Count 190 10^3/cmm (157-399); Red Blood Count 3.56 10^6/uL (3.85-5.65); Red Cell Distribution Width 15.1 % (12.1-15.1); White Blood Count 10.88 10^3/uL (3.29-11.43)
[2023-11-20 05:33] LABS: C Reactive Protein 236.7 mg/L (0.0-4.9)
[2023-11-20 05:35] LABS: Procalcitonin 2.56 ng/mL (0-0.5)
[2023-11-20 05:36] LABS: Alanine Aminotransferase 16 U/L (0-33); Albumin Level 2.8 g/dL (3.5-5.2); Alkaline Phosphatase 54 U/L (35-105); Anion Gap 12.3 (5-19); Aspartate Amino Transferase 32 U/L (0-32); Blood Urea Nitrogen 17 mg/dL (8-23); Calcium 8.1 mg/dL (8.5-10.5); Carbon Dioxide 25 mmol/L (22-29); Chloride 108 mmol/L (98-107); Creatinine Clr Calc Pharmacy 35.8499; Globulin 2.2 g/dL (1.3-4.6); Glucose 142 mg/dL (65-115); Osmolality Calculated 298 mOsm/kg (285-295); Potassium 3.3 mmol/L (3.5-5.1); Sodium 142 mmol/L (136-145); Total Bilirubin 2.1 mg/dL (0.15-1.2)
[2023-11-20] MEDS: piperacillin-tazobactam 3.375 GM in sodium chloride 0.9% (plus) 50 ML IV ×3 (05:51→20:23)
[2023-11-20] MEDS: heparin 5,000 unit/mL INJ 1 mL 5000 UNIT SUBCUT ×2 (05:51→17:00)
[2023-11-20] MEDS: levothyroxine 75 mcg Tablet PO (05:54)
[2023-11-20] MEDS: oxyCODONE 5 mg IR Tab/Cap 10 MG PO ×5 (05:58→22:08)
[2023-11-20] MEDS: lisinopril 20 mg Tablet 40 MG PO (08:39)
[2023-11-20] MEDS: budesonide 0.5 mg/2 mL Neb INHALATION ×2 (08:39→20:54)
[2023-11-20] MEDS: amlodipine 5 mg Tablet PO (08:39)
[2023-11-20] MEDS: pantoprazole DR 40 mg Tablet PO (08:39)
[2023-11-20] MEDS: sodium chloride 0.9% 1,000 ML 75 ML IV ×2 (08:41→20:25)
--- NOTE | 2023-11-20 09:44 | US_ITS ---
WS: [id number] Ultrasound-guided RIGHT knee joint aspiration. HISTORY: Fever of unknown origin. Large RIGHT knee joint effusion. COMPARISON: MRI 11/19/2023. There is a large minimally complex RIGHT suprapatellar joint effusion. There is mild wall thickening. Procedure, risks and complications are explained to the patient. Consent is obtained. Skin is cleanse d with ChloraPrep and anesthetized with 1% buffered lidocaine. 18-gauge spinal needle is inserted int o the fluid. Approximately 80 cc of clear yellow fluid aspirated. No complications were encountered. Specimen is collected for analysis. US/US guide needle placemn [id number] IMPRESSION: Uncomplicated RIGHT knee joint aspiration yielding 80 cc of clear fluid.
--- NOTE | 2023-11-20 10:42 | PC.CHAP ---
Pastoral Care Encounter/Spiritual Assessment Type of Contact [] Declined wire photo operator news visit [] Patient/Family/Request visit [] Outpatient visit [] Follow-up visit [] Physician referral [] Code/Alert [] Routine visit [] Staff referral [] Actively dying [] Patient sleeping [] Family support [] [] Out of room [] Palliative care [] [x] Receiving care in room [] Pre-surgical visit [] Trauma [] Long length of stay [] ICU visit [] Other: Relational/Emotional Strength [] Patient feels connected with others/family/visitors/staff [] Distress [] Loneliness/isolation [] Abandonment Spirituality of Patient [] Person of Ruby [] Attends [employer] of their Ruby [] Believes in Prayer [] Reads Bible or Pentecostal materials [] There are Spiritual issues to be addressed Client Service And Consulting Manager Interventions [] Prayer [] Active listening [] Non-anxious presence [] Spiritual/emotional support [] Crisis/trauma care [] Spiritual counseling [] Bereavement support [] Provided bereavement packet [] Provided Bible/devotional materials [] Provided toy/stuffed animal, coloring book to patient or family member [] Provided Communion [] Anointing/[place] [] Salvation [] Completed spiritual assessment [] Other: Impact on Illness or Injury [] Angry [] Fearful [] Anxious [] Often cries [] Exhaustion [] Unable to work [] Unable to attend confucianist [] Unable to walk/stand [] Unable to read [] Unable to drive [] Unable to eat/drink [] Unable to sleep [] Unable to be with family [] Patient intubated [] Other: Summary Time spent with patient
[2023-11-20 11:31] LABS: RBC Synovial Fluid 1 10^3/uL (0-0); Synovial Fluid Mononuclear # 1.211 10^3/uL; Synovial Fluid Polynuclear # 10.618 10^3/uL; WBC Synovial Fluid 11829 /uL (0-150)
[2023-11-20 11:32] LABS: Appearance Synovial Fluid CLOUDY (CLEAR); Color Synovial Fluid YELLOW (PALE YELLOW); Cyto Order Verification No Order; PATH Referal YES
[2023-11-20 11:37] LABS: Uric Acid 6.6 mg/dL (2.4-5.7)
[2023-11-20 11:49] LABS: pH Synovial Fluid 6.5 (7.0-7.5)
[2023-11-20 11:50] LABS: Total Protein Synovial Fluid 3.1 g/dL
[2023-11-20] MEDS: lipase-protease-amylase Capsule 2 EACH PO ×2 (11:50→17:00)
[2023-11-20 11:51] LABS: Albumin Synovial Fluid 2 gm/dL; Cholesterol Synovial Fluid 45 mg/dL; Triglycerides Synovial Fluid 30 mg/dL
[2023-11-20 12:04] LABS: Crystals, Fluid See Path Consult
[2023-11-20 12:09] LABS: Glucose Synovial Fluid 143 mg/dL
[2023-11-20] MEDS: diclofenac 1% Topical Gel 100 gm 2 APPLIC TOPICAL (12:13)
--- NOTE | 2023-11-20 15:29 | P.PN_ITS ---
Subjective 2 Subjective: Patient was seen this morning, nursing staff at bedside, she is on 3 L, she does report intermittent cough, no fevers, chills, no shortness of breath, she tells me that she has a known history of a hiatal hernia, does report intermittent coughing spells, but no globus sensation, we discussed her leukocytosis or elevated inflammatory markers, the only thing that really is bothering her she tells me is her right knee, her right knee is swollen erythematous, tender, she does report that she has received steroid injections in that right knee about [address] Santiago, we discussed the possibility of right knee joint infection or versus bursal infection or septic joint, she did have low-grade fever overnight, yesterday evening due to her elevated inflammatory markers elevated white count up to 17,000, I was worried about her elevated white count, without a good source of infection, CT angiogram the chest was negative for any acute infiltrate or lobar pneumonia UA within normal limits, no diarrhea complaints no abdominal complaints gallbladder ultrasound was within normal limits thus I started her on vancomycin and Zosyn yesterday afternoon, and despite that she is still had some low-grade temperatures, will follow her blood cultures, plan on arthrocentesis of the right knee, she is agreeable, spoke to Dr. Kim, discussed my concerns for possible septic arthritis versus bursal infection, versus right knee joint infection, he advises to proceed with arthrocentesis with the help of radiology, will continue to follow along, no acute interventions at this time Vitals/I&O/Wt Last Vital Signs Temp 98.3 F 11/20/23 11:26 Pulse 58 L 11/20/23 14:40 Resp 18 11/20/23 14:40 BP 100/55 11/20/23 11:26 Pulse Ox 94 11/20/23 14:40 O2 Del Method Nasal Cannula 11/20/23 14:40 O2 Flow Rate 2 11/20/23 14:40 11/20/23 11/20/23 11/20/23 06:59 14:59 22:59 Intake Total 170 / 2058.75 1650 / 1650 Output Total 300 / 700 Balance -130 / 1358.75 1650 / 1650 Weight last 48 hrs Weight 63.321 kg Weight 62.233 kg Weight 62.823 kg Weight 56.699 kg Physical Exam 2 Const: COMMON NORMALS: no acute distress and patient oriented x3 Resp: COMMON NORMALS: normal respiratory effort, No retractions, No use of accessory muscles and clear to auscultation bilaterally AUSCULTATION: clear to auscultation bilaterally Cardio: COMMON NORMALS: regular rate, regular rhythm, S1 normal heart sound present and S2 normal heart sound present RATE: regular rate RHYTHM: r egular rhythm HEART SOUNDS: S1 normal heart sound present and S2 normal heart sound present GI: COMMON NORMALS: Normal to inspection, nondistended, normoactive bowel sounds present and non-tender Extremity: COMMON NORMALS: no pedal edema NARRATIVE EXTREMITY EXAM: Right knee, erythematous, swollen, tender, warm, diffuse tenderness, Neuro: COMMON NORMALS: patient oriented x3 Psych: COMMON NORMALS: mental status grossly normal Data 11/20/23 04:55 11/20/23 04:55 Micro: Microbiology 11/19/23 14:37 Blood Culture - Preliminary Blood NEGATIVE TO DATE 11/19/23 15:08 Blood Culture - Preliminary Blood SPECIMEN COLLECTED A&P Assessment and plan (1) Femur fracture: (2) Fall: (3) Wrist injury: (4) Chronic pain: (5) Hypothyroidism: (6) Rhabdomyolysis: (7) Hypokalemia: (8) Fever: (9) Leukocytosis: (10) Hiatal hernia: (11) Aspiration into airway: (12) Swelling of right knee joint: (13) Hypoxia: Plan 77-year-old lady presenting to the hospital today after having sustained a fall at home as described above. Currently has significant right knee swelling, difficulty bearing weight, unable to stand up. She lives alone at home. X-ray of the right knee without acute abnormalities and left knee notes knee effusion with intra-articular fracture of the distal femur. Clinical findings do not correlate with the x-ray. It is in fact her right knee when compared to the left. Right knee MRI 2. Moderate marrow edema in the lateral femoral condyle and tibial plateau. This is most likely reactive marrow edema from advanced degenerative changes in the lateral compartment. Orthopedics consulted. No history of syncopal episode, appears to have been a mechanical fall which may have been precipitated by underlying osteoarthritis Patient takes opiates at home, currently she is alert awake and oriented, denies any recent change in her opiate dosing which may have contributed to the fall. While in the hospital, oxycodone at home, resume Patient additionally takes Lyrica 225 mg p.o. at bedtime. Continue home doses of amlodipine. Resume lisinopril TSH within normal limits Reports a past history of suspected sleep apnea, she is due to undergo sleep study in November, wondering Rhabdomyolysis with creatinine kinase of 678. IV fluids Elevated T. bili at 2.6 and AST at 34, hypokalemia 2.9 may be related to dehydration as patient has been laying on the floor for about 24 hours without being able to have any p.o. intake. IV normal saline at 75 cc an hour Hypokalemia to be repleted NSTEMI, no chest pain complaints, Full code DVT prophylaxis: Heparin 5000 every 12 hours subcutaneously Hypoxia -Requiring 3 L, no complaints of shortness of breath does have intermittent cough -CT angiogram negative for PE -No radiographic evidence of pneumonia -No wheezing on examination ? Does have a 2. Large hiatal hernia containing a large portion of the stomach and causing mass effect on the posterior aspect of the heart. -Could be a source of aspiration pneumonitis, chronic aspiration -Monitor respiratory status closely -Monitor cough ? Aspiration precautions ? Consult speech therapy Large hiatal hernia 2. Large hiatal hernia containing a large portion of the stomach and causing mass effect on the posterior aspect of the heart. Fever -With leukocytosis, CRP 250, Pro-[place] 2.5 -Etiology unclear -Could be related to hypoxia as above, aspiration pneumonitis, with hiatal hernia possible aspiration pneumonia? But no radiographic evidence of this, is on 3 L, does have a cough, -No diarrhea complaints, no abdominal pain complaints, ultrasound abdomen within normal limits ? UA within normal limits ? Chest x-ray within normal limits ? Only complaint is right knee pain, right knee swelling Possibly right knee source? Right knee swelling -Concern for septic knee joint, versus joint infection versus bursal infection -she fell on her right knee, Was on the ground spent about 16 hours - Complaints of right knee pain, swelling, erythema ? On examination of right knee erythematous, swollen, tender Knee MRI 1. No acute fracture identified. 2. Moderate marrow edema in the lateral femoral condyle and tibial plateau. This is most likely reactive marrow edema from advanced degenerative changes in the lateral compartment. 3. Extruded anterior and posterior horn of the lateral meniscus with complex tears. 4. Very large suprapatellar joint effusion with surrounding edema. Large Black's cyst. ? Plan ? Consults radiology for ultrasound-guided arthrocentesis ? Follow test results ?follow blood cultures ? Continue vancomycin and continue Zosyn -Orthopedic service on consult Attestations 2 Medical Necessity Statement*: Patient requires hospitalization for concerns for right knee infection, fever, hypoxia, Diagnoses Femur fracture S72.90XA Fall W19.XXXA Wrist injury S69.90XA Chronic pain G89.29 Hypothyroidism E03.9 Rhabdomyolysis M62.82 Hypokalemia E87.6 Fever R50.9 Leukocytosis D72.829 Hiatal hernia K44.9 Aspiration into airway T17.908A Swelling of right knee joint M25.461 Hypoxia R09.02
[2023-11-20] MEDS: pregabalin 75 mg Capsule 225 MG PO (20:24)
[2023-11-20] MEDS: ropinirole 1 mg Tablet 0.5 MG PO (20:24)
[2023-11-20] MEDS: atorvastatin 40 mg Tablet PO (20:24)
[2023-11-20] MEDS: aspirin 81 mg EC Tablet PO (20:24)
[2023-11-20] MEDS: mirtazapine 30 mg Tablet PO (20:24)
[2023-11-21] VITALS (16 sets, daily range): BP systolic 113–159; BP diastolic 60–76; PULSE 53–77; RESP 14–20; TEMP 36.5–37; O2SAT 1–95
[2023-11-21 04:51] LABS: Basophils % 0.3 %; Eosinophils # 0.4 10^3/uL (0.0-0.8); Eosinophils % 4.9 %; Hematocrit 32.3 % (36-47); Lymphocytes % 12.9 %; Mean Corpuscular Hemoglobin 28.3 pg (27-33); Mean Corpuscular Volume 91.5 fl (85-98); Mean Platelet Volume 11.3 fL (7.4-10.4); Monocytes # 0.6 10^3/uL (0.2-0.9); Monocytes % 7.5 %; Neutrophils # 5.56 10^3/uL (1.8-7.7); Neutrophils % 74.1 %; Nucleated Red Blood Cells % 0 %; Platelet Count 197 10^3/cmm (157-399); Red Blood Count 3.53 10^6/uL (3.85-5.65); Red Cell Distribution Width 15.8 % (12.1-15.1)
[2023-11-21 05:14] LABS: Anion Gap 11.4 (5-19); Blood Urea Nitrogen 18 mg/dL (8-23); C Reactive Protein 183.9 mg/L (0.0-4.9); Calcium 7.9 mg/dL (8.5-10.5); Carbon Dioxide 24 mmol/L (22-29); Chloride 113 mmol/L (98-107); Creatinine Clr Calc Pharmacy 33.1364; Glucose 122 mg/dL (65-115); Osmolality Calculated 303 mOsm/kg (285-295); Potassium 3.4 mmol/L (3.5-5.1); Sodium 145 mmol/L (136-145)
[2023-11-21 05:18] LABS: Procalcitonin 1.88 ng/mL (0-0.5)
[2023-11-21] MEDS: piperacillin-tazobactam 3.375 GM in sodium chloride 0.9% (plus) 50 ML IV ×3 (06:16→20:45)
[2023-11-21] MEDS: heparin 5,000 unit/mL INJ 1 mL 5000 UNIT SUBCUT ×2 (06:19→16:35)
[2023-11-21] MEDS: levothyroxine 75 mcg Tablet PO (06:19)
[2023-11-21] MEDS: lipase-protease-amylase Capsule 2 EACH PO ×3 (06:19→16:35)
[2023-11-21] MEDS: oxyCODONE 5 mg IR Tab/Cap 10 MG PO ×4 (06:22→20:43)
[2023-11-21] MEDS: ipratropium-albuterol 3 mL Neb INHALATION ×3 (07:14→19:59)
[2023-11-21] MEDS: budesonide 0.5 mg/2 mL Neb INHALATION ×2 (07:14→19:59)
[2023-11-21] MEDS: vancomycin 1,000 MG in sodium chloride 0.9% 250 ML 250 MG IV (07:31)
[2023-11-21] MEDS: acetaminophen 325 mg Tablet 650 MG PO ×3 (08:04→20:44)
[2023-11-21] MEDS: lisinopril 20 mg Tablet 40 MG PO (08:07)
[2023-11-21] MEDS: pantoprazole DR 40 mg Tablet PO (08:07)
[2023-11-21] MEDS: amlodipine 5 mg Tablet PO (08:07)
[2023-11-21] MEDS: diclofenac 1% Topical Gel 100 gm 2 APPLIC TOPICAL ×3 (08:10→20:50)
--- NOTE | 2023-11-21 08:10 | FL_ITS ---
WS: [id number] Exam: FL barium swallow modifd [id number] Date/Time of Exam: 11/21/2023 11:05 AM Reason For Exam: Oral dysphagia Fluoroscopy time: 4min [id number] minutes # of spot films: Modified barium swallow test was performed in conjunction with the speech therapy service. The patient swallowed all consistencies of barium mixture foodstuffs without penetration or aspiratio n. The patient swallowed a barium tablet without difficulty however the tablet was retained in a larg e hiatal hernia but passed into the stomach with additional administration of pudding consistency bar ium foodstuffs. FL/FL barium swallow modifd [id number] IMPRESSION: 1. No sign of penetration or aspiration. 2. Large hiatal hernia. See above discussion. A separate report and recommendations will follow from the speech therapy servi ce.
--- NOTE | 2023-11-21 13:27 | P.PN_ITS ---
Subjective 2 Subjective: patient was seen this morning, denies fever, no chills, no nausea, no vomiting, R knee swelling is improving Vitals/I&O/Wt Last Vital Signs Temp 98.3 F 11/21/23 12:14 Pulse 60 11/21/23 12:14 Resp 15 11/21/23 12:14 BP 159/76 11/21/23 12:14 Pulse Ox 90 11/21/23 12:14 O2 Del Method Nasal Cannula 11/21/23 12:14 O2 Flow Rate 1 11/21/23 12:14 11/20/23 11/21/23 11/21/23 22:59 06:59 14:59 Intake Total 1650 / 3300 290 / 3590 418.000 / 418.000 Output Total 300 / 300 200 / 500 Balance 1350 / 3000 90 / 3090 418.000 / 418.000 Weight last 48 hrs Weight 63.231 kg Weight 63.321 kg Physical Exam 2 Const: COMMON NORMALS: no acute distress and patient oriented x3 Resp: COMMON NORMALS: normal respiratory effort, No retractions, No use of accessory muscles and clear to auscultation bilaterally AUSCULTATION: clear to auscultation bilaterally Cardio: COMMON NORMALS: regular rate, regular rhythm, S1 normal heart sound present and S2 normal heart sound present RATE: regular rate RHYTHM: r egular rhythm HEART SOUNDS: S1 normal heart sound present and S2 normal heart sound present GI: COMMON NORMALS: Normal to inspection, nondistended, normoactive bowel sounds present and non-tender Extremity: COMMON NORMALS: no pedal edema Neuro: COMMON NORMALS: patient oriented x3 Psych: COMMON NORMALS: mental status grossly normal Data 11/21/23 04:27 11/21/23 04:27 Micro: Microbiology 11/20/23 10:50 Gram Stain - Final Synovial Fluid Body Fluid Culture - Preliminary 11/19/23 15:08 Blood Culture - Preliminary Blood NEGATIVE TO DATE 11/19/23 14:37 Blood Culture - Preliminary Blood NEGATIVE TO DATE A&P Assessment and plan (1) Femur fracture: (2) Fall: (3) Wrist injury: (4) Chronic pain: (5) Hypothyroidism: (6) Rhabdomyolysis: (7) Hypokalemia: (8) Fever: (9) Leukocytosis: (10) Hiatal hernia: (11) Aspiration into airway: (12) Swelling of right knee joint: (13) Hypoxia: Plan 77-year-old lady presenting to the hospital today after having sustained a fall at home as described above. Currently has significant right knee swelling, difficulty bearing weight, unable to stand up. She lives alone at home. X-ray of the right knee without acute abnormalities and left knee notes knee effusion with intra-articular fracture of the distal femur. Clinical findings do not correlate with the x-ray. It is in fact her right knee when compared to the left. Right knee MRI 2. Moderate marrow edema in the lateral femoral condyle and tibial plateau. This is most likely reactive marrow edema from advanced degenerative changes in the lateral compartment. Orthopedics consulted. No history of syncopal episode, appears to have been a mechanical fall which may have been precipitated by underlying osteoarthritis Patient takes opiates at home, currently she is alert awake and oriented, denies any recent change in her opiate dosing which may have contributed to the fall. While in the hospital, oxycodone at home, resume Patient additionally takes Lyrica 225 mg p.o. at bedtime. Continue home doses of amlodipine. Resume lisinopril TSH within normal limits Reports a past history of suspected sleep apnea, she is due to undergo sleep study in November, wondering Rhabdomyolysis with creatinine kinase of 678. IV fluids Elevated T. bili at 2.6 and AST at 34, hypokalemia 2.9 may be related to dehydration as patient has been laying on the floor for about 24 hours without being able to have any p.o. intake. IV normal saline at 75 cc an hour Hypokalemia to be repleted NSTEMI, no chest pain complaints, Full code DVT prophylaxis: Heparin 5000 every 12 hours subcutaneously Hypoxia -Requiring 3 L, no complaints of shortness of breath does have intermittent cough -CT angiogram negative for PE -No radiographic evidence of pneumonia -No wheezing on examination ? Does have a 2. Large hiatal hernia containing a large portion of the stomach and causing mass effect on the posterior aspect of the heart. -Could be a source of aspiration pneumonitis, chronic aspiration -Monitor respiratory status closely -Monitor cough ? Aspiration precautions ? Consult speech therapy, Large hiatal hernia 2. Large hiatal hernia containing a large portion of the stomach and causing mass effect on the posterior aspect of the heart. Fever -With leukocytosis, CRP 250, Pro-[place] 2.5 -Etiology unclear -Could be related to hypoxia as above, aspiration pneumonitis, with hiatal hernia possible aspiration pneumonia? But no radiographic evidence of this, is on 3 L, does have a cough, -No diarrhea complaints, no abdominal pain complaints, ultrasound abdomen within normal limits ? UA within normal limits ? Chest x-ray within normal limits ? Only complaint is right knee pain, right knee swelling Possibly right knee source? Right knee swelling -Concern for septic knee joint, versus joint infection versus bursal infection -she fell on her right knee, Was on the ground spent about 16 hours - Complaints of right knee pain, swelling, erythema ? On examination of right knee erythematous, swollen, tender Knee MRI 1. No acute fracture identified. 2. Moderate marrow edema in the lateral femoral condyle and tibial plateau. This is most likely reactive marrow edema from advanced degenerative changes in the lateral compartment. 3. Extruded anterior and posterior horn of the lateral meniscus with complex tears. 4. Very large suprapatellar joint effusion with surrounding edema. Large Black's cyst. -80-cc fluid, yellow, clear, [id number], neutrophillic, gram stain wbc no organism so far no growth, blood culture no growth so far ? Plan ? Follow test results ?follow blood cultures ? Continue vancomycin and continue Zosyn -Orthopedic service on consult Attestations 2 Medical Necessity Statement*: patient requires hospitalization for concerns for right knee infection, aspiration pneumonia Diagnoses Femur fracture S72.90XA Fall W19.XXXA Wrist injury S69.90XA Chronic pain G89.29 Hypothyroidism E03.9 Rhabdomyolysis M62.82 Hypokalemia E87.6 Fever R50.9 Leukocytosis D72.829 Hiatal hernia K44.9 Aspiration into airway T17.908A Swelling of right knee joint M25.461 Hypoxia R09.02
[2023-11-21 18:38] LABS: Adenovirus Not Detected (NOT DETECT); Chlamydia Pneumoniae Not Detected (NOT DETECT); Coronavirus 229E,HKU1,NL63,OC4 Not Detected (NOT DETECT); Human Metapneumovirus Not Detected (NOT DETECT); Human Rhinovirus/Enterovirus Not Detected (NOT DETECT); Influenza A Not Detected (NOT DETECT); Influenza A H1 Not Detected (NOT DETECT); Influenza A H1-2009 Not Detected (NOT DETECT); Influenza A H3 Not Detected (NOT DETECT); Influenza B Not Detected (NOT DETECT); Mycoplasma Pneumoniae Not Detected (NOT DETECT); Parainfluenza Virus Type 1 Not Detected (NOT DETECT); Parainfluenza Virus Type 2 Not Detected (NOT DETECT); Parainfluenza Virus Type 3 Not Detected (NOT DETECT); Parainfluenza Virus Type 4 Not Detected (NOT DETECT); Respiratory Syncytial Virus A Not Detected (NOT DETECT); Respiratory Syncytial Virus B Not Detected (NOT DETECT); SARS-COV-2 Not Detected (NOT DETECT)
[2023-11-21] MEDS: pregabalin 75 mg Capsule 225 MG PO (20:44)
[2023-11-21] MEDS: mirtazapine 30 mg Tablet PO (20:44)
[2023-11-21] MEDS: atorvastatin 40 mg Tablet PO (20:45)
[2023-11-21] MEDS: ropinirole 1 mg Tablet 0.5 MG PO (20:45)
[2023-11-21] MEDS: aspirin 81 mg EC Tablet PO (20:45)
[2023-11-22] VITALS (16 sets, daily range): BP systolic 131–192; BP diastolic 64–81; PULSE 46–75; RESP 14–20; TEMP 36.4–36.9; O2SAT 90–96
[2023-11-22 04:20] LABS: Basophils % 0.3 %; Eosinophils # 0.8 10^3/uL (0.0-0.8); Eosinophils % 14.3 %; Hematocrit 32.8 % (36-47); Lymphocytes # 1.1 10^3/uL (0.8-4.8); Lymphocytes % 19.2 %; Mean Corpuscular HGB Conc 30.8 g/dL (30-55); Mean Corpuscular Hemoglobin 28.1 pg (27-33); Mean Corpuscular Volume 91.4 fl (85-98); Mean Platelet Volume 11.4 fL (7.4-10.4); Monocytes # 0.5 10^3/uL (0.2-0.9); Neutrophils # 3.31 10^3/uL (1.8-7.7); Nucleated Red Blood Cells % 0 %; Platelet Count 214 10^3/cmm (157-399); Red Blood Count 3.59 10^6/uL (3.85-5.65); Red Cell Distribution Width 15.9 % (12.1-15.1); White Blood Count 5.72 10^3/uL (3.29-11.43)
[2023-11-22 04:45] LABS: Procalcitonin 1.15 ng/mL (0-0.5)
[2023-11-22 04:59] LABS: Anion Gap 14.3 (5-19); Blood Urea Nitrogen 15 mg/dL (8-23); Calcium 7.9 mg/dL (8.5-10.5); Carbon Dioxide 22 mmol/L (22-29); Chloride 112 mmol/L (98-107); Creatinine Clr Calc Pharmacy 36.1241; Glucose 84 mg/dL (65-115); Osmolality Calculated 300 mOsm/kg (285-295); Potassium 3.3 mmol/L (3.5-5.1); Sodium 145 mmol/L (136-145)
[2023-11-22] MEDS: piperacillin-tazobactam 3.375 GM in sodium chloride 0.9% (plus) 50 ML IV ×3 (05:26→20:53)
[2023-11-22] MEDS: heparin 5,000 unit/mL INJ 1 mL 5000 UNIT SUBCUT ×2 (05:26→17:26)
[2023-11-22] MEDS: oxyCODONE 5 mg IR Tab/Cap 10 MG PO (05:37)
[2023-11-22] MEDS: levothyroxine 75 mcg Tablet PO (05:37)
[2023-11-22] MEDS: acetaminophen 325 mg Tablet 650 MG PO ×3 (05:38→18:29)
[2023-11-22] MEDS: lipase-protease-amylase Capsule 2 EACH PO ×3 (07:24→17:24)
[2023-11-22] MEDS: budesonide 0.5 mg/2 mL Neb INHALATION ×2 (07:54→21:14)
[2023-11-22] MEDS: ipratropium-albuterol 3 mL Neb INHALATION ×3 (07:54→21:14)
[2023-11-22] MEDS: pantoprazole DR 40 mg Tablet PO (08:05)
[2023-11-22] MEDS: amlodipine 5 mg Tablet PO ×2 (08:05→13:17)
[2023-11-22] MEDS: lisinopril 20 mg Tablet 40 MG PO (08:05)
[2023-11-22] MEDS: diclofenac 1% Topical Gel 100 gm 2 APPLIC TOPICAL ×2 (08:06→15:29)
[2023-11-22] MEDS: oxyCODONE 5 mg IR Tab/Cap PO ×2 (12:27→18:28)
--- NOTE | 2023-11-22 12:53 | P.PN_ITS ---
Subjective 2 Subjective: Patient was seen this morning, she denies any fevers, chills, no nausea, no vomiting, denies any choking or coughing with her meals, her right knee swelling has improved, currently on room air Vitals/I&O/Wt Last Vital Signs Temp 98.1 F 11/22/23 12:00 Pulse 65 11/22/23 12:00 Resp 14 11/22/23 12:27 BP 192/81 11/22/23 12:00 Pulse Ox 92 11/22/23 12:00 O2 Del Method Room Air 11/22/23 12:00 O2 Flow Rate 1 11/21/23 20:00 11/21/23 11/22/23 11/22/23 22:59 06:59 14:59 Intake Total 170 / 588.000 50 / 638.000 290 / 290 Balance 170 / 588.000 50 / 638.000 290 / 290 Weight last 48 hrs Weight 63.231 kg Weight 63.231 kg Physical Exam 2 Const: COMMON NORMALS: no acute distress and patient oriented x3 Resp: COMMON NORMALS: normal respiratory effort, No retractions, No use of accessory muscles and clear to auscultation bilaterally AUSCULTATION: clear to auscultation bilaterally Cardio: COMMON NORMALS: regular rate, regular rhythm, S1 normal heart sound present and S2 normal heart sound present RATE: regular rate RHYTHM: r egular rhythm HEART SOUNDS: S1 normal heart sound present and S2 normal heart sound present GI: COMMON NORMALS: Normal to inspection, nondistended, normoactive bowel sounds present and non-tender Extremity: COMMON NORMALS: no pedal edema NARRATIVE EXTREMITY EXAM: Right knee erythema, swelling, significantly improved Neuro: COMMON NORMALS: patient oriented x3 Psych: COMMON NORMALS: mental status grossly normal Data 11/22/23 03:50 11/22/23 03:50 Micro: Microbiology 11/20/23 10:50 Gram Stain - Final Synovial Fluid Body Fluid Culture - Preliminary A&P Assessment and plan (1) Femur fracture: (2) Fall: (3) Wrist injury: (4) Chronic pain: (5) Hypothyroidism: (6) Rhabdomyolysis: (7) Hypokalemia: (8) Fever: (9) Leukocytosis: (10) Hiatal hernia: (11) Aspiration into airway: (12) Swelling of right knee joint: (13) Hypoxia: Plan 77-year-old lady presenting to the hospital today after having sustained a fall at home as described above. Currently has significant right knee swelling, difficulty bearing weight, unable to stand up. She lives alone at home. X-ray of the right knee without acute abnormalities and left knee notes knee effusion with intra-articular fracture of the distal femur. Clinical findings do not correlate with the x-ray. It is in fact her right knee when compared to the left. Right knee MRI 2. Moderate marrow edema in the lateral femoral condyle and tibial plateau. This is most likely reactive marrow edema from advanced degenerative changes in the lateral compartment. Orthopedics consulted. No history of syncopal episode, appears to have been a mechanical fall which may have been precipitated by underlying osteoarthritis Patient takes opiates at home, currently she is alert awake and oriented, denies any recent change in her opiate dosing which may have contributed to the fall. While in the hospital, oxycodone at home, resume Patient additionally takes Lyrica 225 mg p.o. at bedtime. Continue home doses of amlodipine. Resume lisinopril TSH within normal limits Reports a past history of suspected sleep apnea, she is due to undergo sleep study in November, wondering Rhabdomyolysis with creatinine kinase of 678. IV fluids Elevated T. bili at 2.6 and AST at 34, hypokalemia 2.9 may be related to dehydration as patient has been laying on the floor for about 24 hours without being able to have any p.o. intake. IV normal saline at 75 cc an hour Hypokalemia to be repleted NSTEMI, no chest pain complaints, Full code DVT prophylaxis: Heparin 5000 every 12 hours subcutaneously Hypoxia -Requiring 3 L, no complaints of shortness of breath does have intermittent cough -CT angiogram negative for PE -No radiographic evidence of pneumonia -No wheezing on examination ? Does have a 2. Large hiatal hernia containing a large portion of the stomach and causing mass effect on the posterior aspect of the heart. -Could be a source of aspiration pneumonitis, chronic aspiration -Monitor respiratory status closely -Monitor cough ? Aspiration precautions ? Consult speech therapy, status post modified barium swallow, will keep patient on a dysphagia level 6 diet Large hiatal hernia 2. Large hiatal hernia containing a large portion of the stomach and causing mass effect on the posterior aspect of the heart. Fever -With leukocytosis, CRP 250, Pro-[place] 2.5 -Etiology unclear -Could be related to hypoxia as above, aspiration pneumonitis, with hiatal hernia possible aspiration pneumonia? But no radiographic evidence of this, is on 3 L, does have a cough, -No diarrhea complaints, no abdominal pain complaints, ultrasound abdomen within normal limits ? UA within normal limits ? Chest x-ray within normal limits ? Only complaint is right knee pain, right knee swelling Possibly right knee source? Right knee swelling -Concern for septic knee joint, versus joint infection versus bursal infection -she fell on her right knee, Was on the ground spent about 16 hours - Complaints of right knee pain, swelling, erythema ? On examination of right knee erythematous, swollen, tender Knee MRI 1. No acute fracture identified. 2. Moderate marrow edema in the lateral femoral condyle and tibial plateau. This is most likely reactive marrow edema from advanced degenerative changes in the lateral compartment. 3. Extruded anterior and posterior horn of the lateral meniscus with complex tears. 4. Very large suprapatellar joint effusion with surrounding edema. Large Black's cyst. -80-cc fluid, yellow, clear, [id number], neutrophillic, gram stain wbc no organism so far no growth, blood culture no growth so far -Blood cultures negative for 48 hours -Synovial cultures -48 hours -Pathology negative for crystals ? Plan ? Follow test results ?follow blood cultures ? Continue vancomycin and continue Zosyn -Orthopedic service on consult Plan for today continue IV antibiotics for another 24 hours as long as her inflammatory markers are improved she remains afebrile, will transition her off antibiotics, she will get antibiotics for her aspiration pneumonia/aspiration pneumonitis, due to knee swelling, likely inflammatory or associate with her falls we will start her on steroids, as she is intolerant to NSAIDs, will get her blood pressures are under control, PT OT today, she can be weightbearing as tolerated on her right knee, planning discharging in the next 24 hours Attestations 2 Medical Necessity Statement*: Patient requires hospitalization for right knee swelling, concerns for infection, aspiration pneumonia, aspiration tinnitus, hypoxia, fall Diagnoses Femur fracture S72.90XA Fall W19.XXXA Wrist injury S69.90XA Chronic pain G89.29 Hypothyroidism E03.9 Rhabdomyolysis M62.82 Hypokalemia E87.6 Fever R50.9 Leukocytosis D72.829 Hiatal hernia K44.9 Aspiration into airway T17.908A Swelling of right knee joint M25.461 Hypoxia R09.02
[2023-11-22] MEDS: methylPREDNISolone sod succ 125 mg/2 mL INJ IVP (13:17)
[2023-11-22 18:59] LABS: Vancomycin Trough 8.1 ug/mL (10-15)
--- NOTE | 2023-11-22 19:07 | P.PHAVANC_ITS ---
Vancomycin Goal - Goal Vancomycin Goal:: 10-15 mg/L Vancomycin Indication:: Other - Therapy Current therapy:: Pip/Tazo Day of therpy:: Day [3]of [] Actual body weight (kg): 139 lb 6.4 oz [place] body weight: 45.5 kg Dosing weight (kg): 52.6 - Data Labs: WBC 5.72 10^3/uL (3.29-11.43) 11/22/23 03:50 RBC 3.59 10^6/uL (3.85-5.65) L 11/22/23 03:50 Hgb 10.10 g/dL (11.27-16.99) L 11/22/23 03:50 Hct 32.8 % (36-47) L 11/22/23 03:50 MCV 91.4 fl (85-98) 11/22/23 03:50 MCH 28.1 pg (27-33) 11/22/23 03:50 MCHC 30.8 g/dL (30-55) 11/22/23 03:50 RDW 15.9 % (12.1-15.1) H 11/22/23 03:50 Sodium 145 mmol/L (136-145) 11/22/23 03:50 Potassium 3.3 mmol/L (3.5-5.1) L 11/22/23 03:50 Chloride 112 mmol/L (98-107) H 11/22/23 03:50 Carbon Dioxide 22 mmol/L (22-29) 11/22/23 03:50 Anion Gap 14.3 (5-19) 11/22/23 03:50 BUN 15 mg/dL (8-23) 11/22/23 03:50 Creatinine 1.1 mg/dL (0.5-0.9) H 11/22/23 03:50 GFR Calculation Not Reportable 11/22/23 03:50 Laboratory Tests 11/22/23 18:33 Vancomycin Trough 8.1 L Last dialysis session:: N/A Treatment plan:: change Regimen:: DOSE CHANGED TO 750 MG Q24H Follow up:: WILL CONTINUE TO MONITOR RENAL FUNCTION AND FOLLOW UP DAILY
[2023-11-22] MEDS: vancomycin 750 MG in sodium chloride 0.9% 250 ML 250 MG IV (19:41)
[2023-11-22] MEDS: pregabalin 75 mg Capsule 225 MG PO (20:52)
[2023-11-22] MEDS: aspirin 81 mg EC Tablet PO (20:53)
[2023-11-22] MEDS: mirtazapine 30 mg Tablet PO (20:53)
[2023-11-22] MEDS: ropinirole 1 mg Tablet 0.5 MG PO (20:53)
[2023-11-22] MEDS: atorvastatin 40 mg Tablet PO (20:53)
[2023-11-22] MEDS: hyDROXYzine 25 mg Capsule PO (22:54)
[2023-11-23] VITALS (13 sets, daily range): BP systolic 154–186; BP diastolic 68–78; PULSE 54–64; RESP 16–20; TEMP 36.8–37.1; O2SAT 90–99
[2023-11-23] MEDS: oxyCODONE 5 mg IR Tab/Cap PO ×3 (00:47→12:30)
[2023-11-23] MEDS: acetaminophen 325 mg Tablet 650 MG PO (02:36)
[2023-11-23] MEDS: ipratropium-albuterol 3 mL Neb INHALATION ×2 (03:32→07:33)
[2023-11-23 04:51] LABS: Lymphocytes # 0.5 10^3/uL (0.8-4.8); Lymphocytes % 11.2 %; Mean Corpuscular HGB Conc 31.1 g/dL (30-55); Mean Corpuscular Hemoglobin 28.2 pg (27-33); Mean Corpuscular Volume 90.7 fl (85-98); Mean Platelet Volume 11.2 fL (7.4-10.4); Monocytes # 0.1 10^3/uL (0.2-0.9); Monocytes % 2.1 %; Neutrophils # 3.75 10^3/uL (1.8-7.7); Neutrophils % 85.8 %; Nucleated Red Blood Cells % 0 %; Platelet Count 272 10^3/cmm (157-399); Red Blood Count 3.86 10^6/uL (3.85-5.65); Red Cell Distribution Width 15.4 % (12.1-15.1); White Blood Count 4.37 10^3/uL (3.29-11.43)
[2023-11-23 05:17] LABS: Anion Gap 17.9 (5-19); Blood Urea Nitrogen 13 mg/dL (8-23); Calcium 8.3 mg/dL (8.5-10.5); Carbon Dioxide 22 mmol/L (22-29); Chloride 108 mmol/L (98-107); Creatinine Clr Calc Pharmacy 39.7365; Glucose 287 mg/dL (65-115); Osmolality Calculated 311 mOsm/kg (285-295); Sodium 145 mmol/L (136-145)
[2023-11-23 05:23] LABS: Procalcitonin 0.63 ng/mL (0-0.5)
[2023-11-23] MEDS: piperacillin-tazobactam 3.375 GM in sodium chloride 0.9% (plus) 50 ML IV (05:31)
[2023-11-23] MEDS: levothyroxine 75 mcg Tablet PO (05:31)
[2023-11-23] MEDS: heparin 5,000 unit/mL INJ 1 mL 5000 UNIT SUBCUT (05:31)
[2023-11-23 05:46] LABS: Potassium 2.9 mmol/L (3.5-5.1)
[2023-11-23 05:59] LABS: SARS Covid-2 Antigen negative (Negative)
[2023-11-23] MEDS: potassium chloride ER 20 mEq Tablet 40 MEQ PO (06:29)
[2023-11-23] MEDS: lipase-protease-amylase Capsule 2 EACH PO ×2 (06:30→11:41)
[2023-11-23] MEDS: budesonide 0.5 mg/2 mL Neb INHALATION (07:33)
[2023-11-23] MEDS: predniSONE 20 mg Tablet 40 MG PO (08:53)
[2023-11-23] MEDS: amlodipine 10 mg Tablet PO (08:53)
[2023-11-23] MEDS: lisinopril 20 mg Tablet 40 MG PO (08:53)
[2023-11-23] MEDS: pantoprazole DR 40 mg Tablet PO (08:53)
--- NOTE | 2023-11-23 09:44 | P.DS_ITS ---
Discharge Providers Date of Admission: 11/19/23 02:21 Date of Discharge: November 23, 2023 Attending Provider at Admission: Eileen Bright MD Attending Provider at Discharge: Carlos Dye MD Primary Care Provider: Jannet Cisse MD Diagnoses at Discharge Discharge Diagnosis (1) Femur fracture: Status: Acute (2) Fall: Status: Acute (3) Wrist injury: Status: Acute (4) Chronic pain: Status: Chronic (5) Hypothyroidism: Status: Acute (6) Rhabdomyolysis: Status: Acute (7) Hypokalemia: Status: Acute (8) Fever: Status: Acute (9) Leukocytosis: Status: Acute (10) Hiatal hernia: Status: Acute (11) Aspiration into airway: Status: Acute (12) Swelling of right knee joint: Status: Acute (13) Hypoxia: Status: Acute Reason for Visit Reason for Visit: FALL Hospital Course Hospital Course Ivan Peguero is a 77 year old female with PMH chronic pain, maintained on opiates, improved suspected sleep apnea for which patient is pending a sleep study next month, history of osteoarthritis of the knees for which she has had cortisone injections to bilateral joints. She presents to the hospital after having sustained a fall about 24 hours ago. She states that she was using the bathroom, tried to get off the commode and suddenly her legs gave way from under her. This resulted in a fall in her landing on her right knee which has thereafter been swollen and painful. She has been unable to bear any weight on this joint. Eventually she was able to crawl to the bed and called for help and came into the emergency room. CT of the head and neck were normal. X-ray of the left knee notes findings suspicious for a nondisplaced distal femur intra-articular fracture with moderate knee joint effusion, x-ray of the right knee without fracture or dislocation. However these x-ray findings are discordant with the clinical exam with her night knee noted to be acutely swollen and painful rather than the left. Denies any loss of consciousness. Denies any preceding syncopal symptoms. Denies any chest pain dyspnea palpitations. Denies any fever chills. Denies abdominal pain nausea or vomiting. 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 77-year-old lady presenting to the hospital today after having sustained a fall at home as described above. Currently has significant right knee swelling, difficulty bearing weight, unable to stand up. She lives alone at home. X-ray of the right knee without acute abnormalities and left knee notes knee effusion with intra-articular fracture of the distal femur. Clinical findings do not correlate with the x-ray. It is in fact her right knee when compared to the left. CT right knee CT/CT knee RT wo con* [id number] IMPRESSION: 1. There is a very slight change in the trabecular pattern involving the lateral tibial metaphysis. Indeterminate but suspicious for fracture. This can be confirmed by MRI. 2. Very large joint effusion and a large Black's cyst. Right knee MRI 2. Moderate marrow edema in the lateral femoral condyle and tibial plateau. This is most likely reactive marrow edema from advanced degenerative changes in the lateral compartment. Orthopedics consulted. CT left knee CT/CT knee LT wo con* [id number] IMPRESSION: 1. No acute fracture identified by CT LEFT knee. Fracture described by radiograph is not identified by CT. To confirm there is no marrow edema MRI LEFT knee can be obtained. 2. Small joint effusion and small Black's cyst. -Patient required inpatient PT OT -Overall clinically improved, -She continued to have right knee swelling, after infection was ruled out, she was managed with steroids, with discharged to detention facility on a steroid taper -Discharge weightbearing as tolerated, right knee, discharged with skilled therapy with a close follow-up with Dr. Kim as outpatient Patient hospitalization was complicated by fevers, leukocytosis 17.5, CRP to 36.7, procalcitonin 2.56. COVID testing was negative. Initial chest x-ray no acute findings. UA within normal limits. She was initially managed with broad- spectrum antibiotic therapy vancomycin, Zosyn, blood cultures drawn and monitored. The concern was with her right knee swelling and right knee pain after fall was septic knee joint/infection a possible etiology. She had a ultrasound-guided arthrocentesis, -80-cc fluid, yellow, clear, [id number], neutrophillic, gram stain wbc no organism -She was monitored for 48 hours on IV antibiotic therapy -Blood cultures negative for 48 hours -Synovial cultures -48 hours -Pathology negative for crystals -Overall clinically improved thus I think that the knee was on unlikely source for her fevers, elevated white count and inflammatory markers -CT angiogram was negative for PE -What I likely think was the source behind her fevers/leukocytosis, was aspiration pneumonia. CT scan of the chest revealed Large hiatal hernia 2. Large hiatal hernia containing a large portion of the stomach and causing mass effect on the posterior aspect of the heart. -She was hypoxic requiring 2 L, complaining of a cough -She nonetheless received broad-spectrum antibiotic therapy as above -On discharge she was afebrile, inflammatory markers trending down, afebrile, on room air, -She will be discharged on dysphagia level 6 diet, mildly thickened liquids, with a close follow-up with speech therapy at detention facility Patient CT scan revealed Large hiatal hernia 2. Large hiatal hernia containing a large portion of the stomach and causing mass effect on the posterior aspect of the heart. -I had a detailed discussion with patient about this, that with her radiographic findings, she has increased risk of bowel obstruction, incarceration, ischemia, strangulation, -This should be monitored closely as outpatient ? If she were to have any sudden onset abdominal pain, nausea vomiting to immediately go to the emergency room -She should follow-up with general surgery to see if she would be a surgical candidate For her falls, weakness, she was discharged to a detention facility for rehab Physical Exam Const: COMMON NORMALS: no acute distress and patient oriented x3 Resp: COMMON NORMALS: normal respiratory effort, No retractions, No use of accessory muscles and clear to auscultation bilaterally AUSCULTATION: clear to auscultation bilaterally Cardio: COMMON NORMALS: regular rate, regular rhythm, S1 normal heart sound present and S2 normal heart sound present RATE: regular rate RHYTHM: regular rhythm HEART SOUNDS: S1 normal heart sound present and S2 normal heart sound present GI: COMMON NORMALS: Normal to inspection, nondistended, normoactive bowel sounds present and non-tender Extremity: COMMON NORMALS: no calf tenderness and no pedal edema Neuro: COMMON NORMALS: patient oriented x3 Psych: COMMON NORMALS: mental status grossly normal Discharge Data Studies Completed and Pending Completed Studies During Hospitalization Category Date Time Status CT angio chest PE protcl [id number] Stat Cat Scan 11/19/23 15:[address] cervical spin wo con* [id number] Stat Cat Scan 11/18/23 23:[address] head wo con* [id number] Stat Cat Scan 11/18/23 23:[address] knee LT wo con* [id number] Routine Cat Scan 11/19/23 06:[address] knee RT wo con* [id number] Routine Cat Scan 11/19/23 06:16 Completed Modified barium swallow [FL barium swallow modifd [id number] Exams 11/21/23 08:10 Completed ] Routine XR chest 1V portable [id number] Stat Exams 11/18/23 23:49 Completed XR femur RT min 2V* [id number] Stat Exams 11/18/23 23:49 Completed XR knee LT 3V* [id number] Stat Exams 11/18/23 23:49 Completed XR wrist LT min 3V* [id number] Stat Exams 11/18/23 23:49 Completed MR knee RT wo con* [id number] Routine MRI 11/19/23 11:54 Completed US abdomen limited [id number] Routine Ultrasound 11/19/23 14:03 Completed US guide needle placemt [id number] Routine Ultrasound 11/20/23 09:44 Completed Pending at discharge Category Date Time Status Blood Culture Stat Lab 11/19/23 15:08 Results Body Fluid Culture & GS Stat Lab 11/20/23 10:50 Results Radiology Impressions Cervical Spine CT 11/18/23 23:49 IMPRESSION: No acute posttraumatic changes of the cervical spine. COMMENTS: Consistent with the [employer]'s Incidental Findings Committee white paper (J Am Shavon Radiol 2015): In patients aged 35 years and older with an incidental thyroid nodule equal to or greater than 1.[address], MRI or extrathyroidal US, further evaluation with dedicated thyroid US is recommended for patients with normal life expectancy and without comorbidities. For smaller nodules without suspicious features, no further evaluation or follow up is recommended. Chest X-Ray 11/18/23 23:49 IMPRESSION: No posttraumatic changes in the chest. Femur X-Ray 11/18/23 23:49 IMPRESSION: No acute fracture or dislocation. Head CT 11/18/23 23:49 IMPRESSION: No large territorial infarct or intracranial bleed. Knee X-Ray 11/18/23 23:49 IMPRESSION: Findings suspicious for a nondisplaced distal femur intra-articular fracture with moderate knee joint effusion. Wrist X-Ray 11/18/23 23:49 IMPRESSION: No acute fracture or dislocation. Knee CT 11/19/23 06:16 IMPRESSION: 1. No acute fracture identified by CT LEFT knee. Fracture described by radiograph is not identified by CT. To confirm there is no marrow edema MRI LEFT knee can be obtained. 2. Small joint effusion and small Black's cyst. Knee MRI 11/19/23 11:54 IMPRESSION: 1. No acute fracture identified. 2. Moderate marrow edema in the lateral femoral condyle and tibial plateau. This is most likely reactive marrow edema from advanced degenerative changes in the lateral compartment. 3. Extruded anterior and posterior horn of the lateral meniscus with complex tears. 4. Very large suprapatellar joint effusion with surrounding edema. Large Black 's cyst. Abdomen Ultrasound 11/19/23 14:03 IMPRESSION: Normal right upper quadrant ultrasound. Chest CTA 11/19/23 15:57 IMPRESSION: 1. No pulmonary embolus. 2. Large hiatal hernia containing a large portion of the stomach and causing mass effect on the posterior aspect of the heart. 3. Small bilateral pleural effusions with mild subjacent atelectasis. Guidance Needle Placement Ultrasound 11/20/23 09:44 IMPRESSION: Uncomplicated RIGHT knee joint aspiration yielding 80 cc of clear fluid. Modified Barium Swallow 11/21/23 08:10 IMPRESSION: 1. No sign of penetration or aspiration. 2. Large hiatal hernia. See above discussion. A separate report and recommendations will follow from the speech therapy service. Laboratory Results WBC 4.37 10^3/uL (3.29-11.43) 11/23/23 04:16 RBC 3.86 10^6/uL (3.85-5.65) 11/23/23 04:16 Hgb 10.90 g/dL (11.27-16.99) L 11/23/23 04:16 Hct 35.0 % (36-47) L 11/23/23 04:16 MCV 90.7 fl (85-98) 11/23/23 04:16 MCH 28.2 pg (27-33) 11/23/23 04:16 MCHC 31.1 g/dL (30-55) 11/23/23 04:16 RDW 15.4 % (12.1-15.1) H 11/23/23 04:16 Plt Count 272 10^3/cmm (157-399) 11/23/23 04:16 MPV 11.2 fL (7.4-10.4) H 11/23/23 04:16 Neut % (Auto) 85.8 % 11/23/23 04:16 Lymph % (Auto) 11.2 % 11/23/23 04:16 [place] % (Auto) 2.1 % 11/23/23 04:16 Eos % (Auto) 0.0 % 11/23/23 04:16 Baso % (Auto) 0.0 % 11/23/23 04:16 Neut # (Auto) 3.75 10^3/uL (1.8-7.7) 11/23/23 04:16 Lymph # (Auto) 0.5 10^3/uL (0.8-4.8) L 11/23/23 04:16 [place] # (Auto) 0.1 10^3/uL (0.2-0.9) L 11/23/23 04:16 Eos # (Auto) 0.0 10^3/uL (0.0-0.8) 11/23/23 04:16 Baso # (Auto) 0.0 10^3/uL (0.0-0.1) 11/23/23 04:16 Nucleated RBC % (auto) 0 % 11/23/23 04:16 Nucleated RBCs # 0.0 /100WBC 11/23/23 04:16 ESR 18 mm/hr (0-15) H 11/19/23 06:50 D-Dimer 4.40 ug/mLFEU (0-0.59) H 11/19/23 14:37 Sodium 145 mmol/L (136-145) 11/23/23 04:16 Potassium 2.9 mmol/L (3.5-5.1) L 11/23/23 04:16 Chloride 108 mmol/L (98-107) H 11/23/23 04:16 Carbon Dioxide 22 mmol/L (22-29) 11/23/23 04:16 Anion Gap 17.9 (5-19) 11/23/23 04:16 BUN 13 mg/dL (8-23) 11/23/23 04:16 Creatinine 1.0 mg/dL (0.5-0.9) H 11/23/23 04:16 GFR Calculation Not Reportable 11/23/23 04:16 Glucose 287 mg/dL (65-115) H 11/23/23 04:16 Calculated Osmolality 311 mOsm/kg (285-295) H 11/23/23 04:16 Lactic Acid 1.0 mmol/L (0.5-2.2) 11/18/23 00:40 Uric Acid 6.6 mg/dL (2.4-5.7) H 11/20/23 04:55 Calcium 8.3 mg/dL (8.5-10.5) L 11/23/23 04:16 Total Bilirubin 2.1 mg/dL (0.15-1.2) H 11/20/23 04:55 AST 32 U/L (0-32) 11/20/23 04:55 ALT 16 U/L (0-33) 11/20/23 04:55 Alkaline Phosphatase 54 U/L (35-105) 11/20/23 04:55 Creatine Kinase 678 U/L (26-192) H* 11/18/23 00:40 Troponin T Baseline 51 ng/L (0-10) H 11/18/23 00:40 Troponin T 120 Minute 50.54 ng/L (0-10) H 11/19/23 02:33 Delta Troponin T -0.46 ABS# (0-10) L 11/19/23 02:33 Troponin T Hi Sens 6Hr 52.34 ng/L (0-10) H 11/19/23 06:50 Troponin T Hi Sens 6Hr Delta 1.34 ng/L (0-12) 11/19/23 06:50 C-Reactive Protein 72.0 mg/L (0.0-4.9) H 11/23/23 04:16 Total Protein 5.0 g/dL (6.6-8.7) L 11/20/23 04:55 Albumin 2.8 g/dL (3.5-5.2) L 11/20/23 04:55 Globulin 2.2 g/dL (1.3-4.6) 11/20/23 04:55 Procalcitonin 0.63 ng/mL (0-0.5) H 11/23/23 04:16 TSH 1.07 uIU/mL (0.27-4.20) 11/19/23 02:33 Urine Color Yellow (Yellow) 11/19/23 01:25 Urine Appearance Clear (CLEAR) 11/19/23 01:25 Urine pH 5.0 (5-7) 11/19/23 01:25 Ur Specific [place] 1.017 (1.005-1.030) 11/19/23 01:25 Urine Protein Trace (Negative) A 11/19/23 01:25 Urine Glucose (UA) Negative (Normal) 11/19/23 01:25 Urine Ketones Negative (Negative) 11/19/23 01:25 Urine Blood Negative (Negative) 11/19/23 01:25 Urine Nitrate Negative (Negative) 11/19/23 01:25 Urine Bilirubin Negative (Negative) 11/19/23 01:25 Urine Urobilinogen 1.0 mg/dL (Negative) 11/19/23 01:25 Ur Leukocyte Esterase Negative (Negative) 11/19/23 01:25 Urine RBC 0-2 /hpf (0-2) 11/19/23 01:25 Urine WBC 0-5 /hpf (0-5) 11/19/23 01:25 Ur Squamous Epith Cells 0-5 /hpf (0-5) 11/19/23 01:25 Amorphous Sediment Not Reportable 11/19/23 01:25 Urine Bacteria None seen /hpf (NONE) 11/19/23 01:25 Hyaline Casts 4.11 /lpf 11/19/23 01:25 Fluid Crystals See path consult 11/20/23 10:50 Synovial Color Yellow (PALE YELLOW) 11/20/23 10:50 Synovial Appearance Cloudy (CLEAR) 11/20/23 10:50 Synovial pH 6.5 (7.0-7.5) L 11/20/23 10:50 Synovial WBC 10383 /uL (0-150) H 11/20/23 10:50 Synovial RBC 1 10^3/uL (0-0) H 11/20/23 10:50 Synovial Mononuclear 1.211 10^3/uL 11/20/23 10:50 Synov Polynuclear WBCs 10.618 10^3/uL 11/20/23 10:50 Synovial Other Cells Not Reportable 11/20/23 10:50 Synovial Polynuclear % 89.800 % 11/20/23 10:50 Synovial Mononuclear % 10.200 % 11/20/23 10:50 Synovial Glucose 143 mg/dL 11/20/23 10:50 Synovial Total Protein 3.1 g/dL 11/20/23 10:50 Synovial Albumin 2 gm/dL 11/20/23 10:50 Synovial LDH 457.0 U/L 11/20/23 10:50 Synovial Cholesterol 45 mg/dL 11/20/23 10:50 Synovial Triglycerides 30 mg/dL 11/20/23 10:50 Vancomycin Trough 8.1 ug/mL (10-15) L 11/22/23 18:33 Adenovirus (PCR) Not detected (NOT DETECT) 11/21/23 16:41 C. pneumoniae DNA (PCR) Not detected (NOT DETECT) 11/21/23 16:41 Coronavirus 229E (PCR) Not detected (NOT DETECT) 11/21/23 16:41 Human Metapneumovir PCR Not detected (NOT DETECT) 11/21/23 16:41 Influenza A (H1) PCR Not detected (NOT DETECT) 11/21/23 16:41 Influ A (H1/09) PCR Not detected (NOT DETECT) 11/21/23 16:41 Influenza A (H3) PCR Not detected (NOT DETECT) 11/21/23 16:41 Influenza Type A (PCR) Not detected (NOT DETECT) 11/21/23 16:41 Influenza Type B (PCR) Not detected (NOT DETECT) 11/21/23 16:41 M. pneumoniae (PCR) Not detected (NOT DETECT) 11/21/23 16:41 Parainfluenza 1 (PCR) Not detected (NOT DETECT) 11/21/23 16:41 Parainfluenza 2 (PCR) Not detected (NOT DETECT) 11/21/23 16:41 Parainfluenza 3 (PCR) Not detected (NOT DETECT) 11/21/23 16:41 Parainfluenza 4 (PCR) Not detected (NOT DETECT) 11/21/23 16:41 RSV Type A (PCR) Not detected (NOT DETECT) 11/21/23 16:41 RSV Type B (PCR) Not detected (NOT DETECT) 11/21/23 16:41 Entero/Rhino (PCR) Not detected (NOT DETECT) 11/21/23 16:41 SARS-CoV-2 (PCR) Not detected (NOT DETECT) 11/21/23 16:41 SARS-CoV-2 Ag (Rapid) negative (Negative) 11/23/23 05:35 Path Cons w/Slide Yes 11/20/23 10:50 Vitals Last Vital Signs Temp 98.7 F 11/23/23 08:00 Pulse 54 L 11/23/23 08:00 Resp 16 11/23/23 07:35 BP 171/68 11/23/23 08:00 Pulse Ox 99 11/23/23 08:00 O2 Del Method Room Air 11/23/23 07:35 O2 Flow Rate 2 11/23/23 04:00 Discharge Plan Discharge Patient Disposition: Xfer SNF Condition: Fair Prescriptions: New prednisone 20 mg Tablet 40 mg PO DAILY 5 Days Qty: 10 0RF amoxicillin-pot clavulanate 875-125 mg tablet 1 tab PO BID 7 Days Qty: 14 0RF Continued diclofenac sodium [Voltaren Arthritis Pain] 1 % gel 2 g topical QID PRN (Reason: Pain) Qty: 100 0RF (DME) 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 See Rx Instructions .Route .MEDSUPPLY Qty: 1 0RF Rx Instructions: As directed by HOME Zenpep 40,000-126,000- 168,000 unit capsule,delayed release(DR/EC) 2 cap PO .qac Qty: 180 8RF Rx Instructions: administer with meals and/or snacks ferrous gluconate 324 mg (37.5 mg iron) tablet 324 mg PO BID Qty: 90 3RF Symbicort 160-4.5 mcg/actuation HFA aerosol inhaler 2 puff INHALATION BID Qty: 10.2 11RF triamterene-hydrochlorothiazid 37.5-25 mg tablet 1 tab PO DAILY Qty: 90 1RF cyanocobalamin (vitamin B-12) [Vitamin B-12] 1,000 mcg Tablet 1,000 mcg PO DAILY Calcium 600 with Vitamin D3 600 mg(1,500mg) -400 unit Tablet,Chewable 1 tab PO DAILY multivitamin 1 tab PO DAILY atorvastatin 40 mg tablet 40 mg PO BEDTIME Rx Instructions: TAKE ONE TABLET BY MOUTH ONCE DAILY levothyroxine 75 mcg tablet 75 mcg PO DAILY Rx Instructions: TAKE 1 TABLET BY MOUTH DAILY potassium chloride 20 mEq tablet,ER particles/crystals 20 meq PO DAILY Rx Instructions: TAKE 1 TABLET BY MOUTH DAILY mirtazapine 30 mg tablet 30 mg PO BEDTIME albuterol sulfate 90 mcg/actuation HFA aerosol inhaler 2 puff inhalation Q6H PRN (Reason: Shortness Of Breath Or Wheezing) Rx Instructions: USE 2 INHALATIONS BY MOUTH EVERY 6 HOURS NEEDED FOR WHEEZING OR SHORTNESS OF BREATH ropinirole 1 mg tablet 0.5 mg PO BEDTIME aspirin 81 mg tablet,delayed release (DR/EC) 81 mg PO BEDTIME lisinopril 40 mg tablet 40 mg PO 0700,0300 Lyrica 225 mg capsule 225 mg PO BEDTIME oxycodone 10 mg tablet 10 - 20 mg PO Q4H PRN (Reason: Pain, Moderate) Rx Instructions: TAKE 1 TO 2 TABLETS BY MOUTH EVERY 4 TO 6 HOURS NEEDED FOR PAIN max 6 PER day Changed amlodipine 5 mg tablet 10 mg PO DAILY Qty: 100 3RF Discontinued ibuprofen 800 mg tablet 800 mg PO Q8H PRN (Reason: Mild Pain (Scale Score 1-4)) Discharge Orders: Discharge Order (Routine); Ordered 11/23/23 Ordered By: Carlos Dye Referrals: Jeramie Thomas MD [Physician] - 1 month (general surgery We have notified your physician's clinic of the need for a follow-up appointment to be scheduled. If you have not heard from them within the next 2 business days, please call them directly. ) Geo Kim DO [Physician] - 2 weeks (We have notified your physician's clinic of the need for a follow-up appointment to be scheduled. If you have not heard from them within the next 2 business days, please call them directly. ) [facility], [Occupational Therapist] - Jannet Cisse MD [Primary Care Provider] - Discharge Diet: As Directed Discharge Activity: Limit activity as instructed Patient Instructions: Prednisone (By mouth), Amoxicillin/Clavulanate Potassium (By mouth), Opioid Safety Activity Restrictions/Additional Instructions: - If you have recurrent abdominal pain please go to the emergency room -Please take steroids as prescribed -Please take antibiotics -For your hiatal hernia please follow-up with general surgery Discharge Attestations Time Spent in Discharge Care*: greater than 30 min Quality Metrics Clinical Quality Measures [ No reported AMI, CVA or VTE this stay] Coding Level of Care Code 49293 Total time (in minutes) for Discharge: 45 Diagnoses Femur fracture S72.90XA Fall W19.XXXA Wrist injury S69.90XA Chronic pain G89.29 Hypothyroidism E03.9 Rhabdomyolysis M62.82 Hypokalemia E87.6 Fever R50.9 Leukocytosis D72.829 Hiatal hernia K44.9 Aspiration into airway T17.908A Swelling of right knee joint M25.461 Hypoxia R09.02
--- NOTE | 2023-11-23 10:28 | PC.NURSE ---
home meds in [facility] returned pt's 1 med and wallet to pt prior to discharge to care home.
[2023-11-23] MEDS: hyDROXYzine 25 mg Capsule PO (12:32)
--- NOTE | 2023-11-23 13:34 | PC.NURSE ---
report given to SNF spoke to ivy at [facility] in regards to pt's new meds and discharge plans.
[2023-11-23] MEDS: cloNIDine 0.1 mg Tablet PO (13:53)
== END 2023-11-23 14:30 | disposition skilled nursing facility (03) | DRG 565 ==
LOC: ER 11-19 01:31 → MEDSURG 11-19 02:34
PROVIDERS: Admitting Provider Student in an Organized Health Care Education/Training Program; Emergency Provider Emergency Medicine; PCP Family Medicine; Visit Provider Family Medicine
DX: M25.461 Effusion, right knee (principal); M62.82 Rhabdomyolysis; W18.30XA Fall on same level, unspecified, initial encounter; G89.29 Other chronic pain; M54.50 Low back pain, unspecified; G47.30 Sleep apnea, unspecified; M17.0 Bilateral primary osteoarthritis of knee; M81.0 Age-related osteoporosis without current pathological fracture; I25.10 Atherosclerotic heart disease of native coronary artery without angina pectoris; E78.5 Hyperlipidemia, unspecified; I10 Essential (primary) hypertension; G25.81 Restless legs syndrome; M79.7 Fibromyalgia; M25.532 Pain in left wrist; E03.9 Hypothyroidism, unspecified; R09.02 Hypoxemia; M17.11 Unilateral primary osteoarthritis, right knee; K44.9 Diaphragmatic hernia without obstruction or gangrene; E86.0 Dehydration; E87.6 Hypokalemia; Z11.52 Encounter for screening for COVID-19; Z79.891 Long term (current) use of opiate analgesic; Z79.82 Long term (current) use of aspirin; I25.2 Old myocardial infarction; Z86.16 Personal history of COVID-19; Z87.891 Personal history of nicotine dependence
CPT/HCPCS: 10005; 36415; 70450; 71045; 71275; 72125; 73110; 73552; 73562; 73700; 73721; 74230; 76705; 76942; 80048; 80053; 80202; 80503; 81003; 81015; 82042; 82465; 82550; 82945; 83605; 83615; 83986; 84145; 84157; 84443; 84478; 84484; 84550; 85025; 85378; 85651; 86140; 87040; 87070; 87075; 87205; 87426; 87486; 87581; 87633; 89050; 92526; 92610; 92611; 93005; 94640; 96372; 97110; 97116; 97161; 97167; 97530; 97535; 99285; J1644; J2543; J2919; J3370; J3480; J7030; J7050; J7512; J7626; Q9967

== ENCOUNTER 2023-12-09 18:22 | Inpatient (IN) | payer MEDICARE, SELFPAY ==
[2023-12-09 18:23] VITALS: BP 181/101; PULSE 88; RESP 22; TEMP 36.8; O2SAT 99; BMI 22.4
--- NOTE | 2023-12-09 18:31 | ECG_ITS ---
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 Measurements Intervals [place] Rate: 90 P: 29 DE: 131 QRS: -62 QRSD: 106 T: 0 QT: 362 QTc: 443 Interpretive Statements SINUS RHYTHM LOW QRS VOLTAGE IN PRECORDIAL LEADS [QRS DEFLECTION < 1.0 mV IN CHEST LEADS] PATTERN CONSISTENT WITH PULMONARY DISEASE INCOMPLETE RIGHT BUNDLE BRANCH BLOCK [90+ ms QRS DURATION, TERMINAL R IN V1/V2, 40+ ms S IN I/aVL/V4/V5/V6] LEFT ANTERIOR FASCICULAR BLOCK [QRS AXIS <= -45, QR IN I, RS IN II] Compared to ECG 11/19/2023 05:42:27 Low QRS voltage now present Incomplete right bundle-branch block now present Left anterior fascicular block now present Right bundle-branch block no longer present Electronically Signed On 12-09-2023 18:43:27 CDT by Baltazar Osborne M.D. [id number] f
[2023-12-09 18:33] VITALS: BP 181/101; PULSE 88; RESP 22; TEMP 36.8; O2SAT 99
--- NOTE | 2023-12-09 18:34 | CTR_ITS ---
PROCEDURE INFORMATION: Exam: CT Head Without Contrast Exam date and time: 12/09/2023 7:04 PM Age: 77 years old Clinical indication: Altered mental status/memory loss; Patient HX: EMS arrival from detention for confusion and general weakness. ; Additional info: AMS TECHNIQUE: Imaging protocol: Computed tomography of the head without contrast. Radiation optimization: All CT scans at this facility use at least one of these dose optimization techniques: automated exposure control; mA and/or kV adjustment per patient size (includes targeted exams where dose is matched to clinical indication); or iterative reconstruction. 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 Mild generalized cortical volume loss with prominence of the ventricles and cortical sulci. Periventricular and subcortical white matter hypodensities likely represent chronic small vessel ischemic changes. No acute intracranial hemorrhage or discrete extra-axial fluid collection. Cerebral ventricles: Stable ventricular size. Paranasal sinuses: Visualized sinuses are unremarkable. No fluid levels. Mastoid air cells: Visualized mastoid air cells are well aerated. Bones: Unremarkable. No acute fracture. Soft tissues: Unremarkable. CT/CT head wo con* [id number] IMPRESSION: No acute intracranial findings.
--- NOTE | 2023-12-09 18:34 | XRR_ITS ---
PROCEDURE INFORMATION: Exam: XR Chest Exam date and time: 12/09/2023 6:42 PM Age: 77 years old Clinical indication: Other: AMS TECHNIQUE: Imaging protocol: Radiologic exam of the chest. Views: 1 view. COMPARISON: CT angio chest PE protcl [id number] 11/19/2023 8:41 PM FINDINGS: Lungs: Bibasilar atelectasis. No definite focal consolidation or evidence of pulmonary edema. Pleural spaces: Possible trace bilateral pleural effusions. No pneumothorax. Heart/Mediastinum: Large hiatal hernia. Stable heart size. Vasculature: Atherosclerotic aortic calcifications. Bones/joints: Mandibular ORIF hardware noted. XR/XR chest 1V portable [id number] IMPRESSION: 1. No definite acute cardiopulmonary findings. 2. Large hiatal hernia.
[2023-12-09 19:31] VITALS: BP 178/92; PULSE 97; RESP 17; O2SAT 97
[2023-12-09 20:08] LABS: Basophils # 0.1 10^3/uL (0.0-0.1); Basophils % 0.5 %; Eosinophils % 0.3 %; Hematocrit 41.1 % (36-47); Lymphocytes # 1.6 10^3/uL (0.8-4.8); Lymphocytes % 12.8 %; Mean Corpuscular HGB Conc 31.4 g/dL (30-55); Mean Corpuscular Hemoglobin 28.2 pg (27-33); Mean Corpuscular Volume 89.7 fl (85-98); Mean Platelet Volume 12.5 fL (7.4-10.4); Monocytes # 0.9 10^3/uL (0.2-0.9); Monocytes % 7.1 %; Neutrophils # 10.09 10^3/uL (1.8-7.7); Nucleated Red Blood Cells % 0 %; Platelet Count 247 10^3/cmm (157-399); Red Blood Count 4.58 10^6/uL (3.85-5.65); Red Cell Distribution Width 17.1 % (12.1-15.1); White Blood Count 12.76 10^3/uL (3.29-11.43)
[2023-12-09 20:32] LABS: Lactic Sepsis W/Reflex 1.5 mmol/L (0.5-2.2)
--- NOTE | 2023-12-09 20:32 | W.ED.WEAKNES ---
HPI - Weakness General: Chief complaint: Weakness Stated complaint: weakness Time Seen by Provider: 12/09/23 18:23 History of Present Illness: 77-year-old female patient has been home from [facility] about a week and a half. She presents with increasing confusion, increasing weakness, not taking her medication appropriately, vomiting, potentially blood. She denies falls. She denies significant pain. She has multiple medical problems. She lives alone. Family checks on her daily. [facility] PFSH: Medical History Enrolled in chronic care management Right knee DJD Osteoporosis Greater trochanteric bursitis Yeast vaginitis COVID-19 virus infection Diarrhea Urinary retention Urinary incontinence Recurrent UTI Atherosclerotic heart disease of [place] coronary artery with other forms of angina pectoris Abnormal cardiovascular stress test NSTEMI (non-ST elevated myocardial infarction) Hyperlipidemia Hypertension Urgency incontinence Pyelonephritis Ileostomy, has currently Past heart attack Long-term current use of opiate analgesic Pain management contract signed Restless legs syndrome Fibromyalgia Chronic low back pain Surgical History H/O ileostomy Hx of appendectomy (~1973) Hx of hysterectomy (~1973) History of reversal of ileostomy Hx of tubal ligation Hx of foot surgery (~11/2013) RIGHT FOOT Family History Brother , BONE METS Cancer COLON CANCER Mother Heart disease Family history of thyroid problem Grandmother Heart disease Father Hyperlipidemia Social History Smoking and tobacco/nicotine status: former use of tobacco/nicotine Second hand smoke exposure: No Alcohol intake: never Substance/Drug Use: never Lives independently: Yes Marital status: / Physical Exam Const: COMMON NORMALS: alert EXAM LIMITATIONS: altered mental status GENERAL APPEARANCE: cooperative and frail appearing ORIENTATION/CONSCIOUSNESS: Yes awake, Yes oriented to person and Yes oriented to place; not oriented to time HENMT: COMMON NORMALS: normocephalic, atraumatic and Normal external nose present HEAD & SCALP: normocephalic and atraumatic FACE & SINUS: face symmetric; no ecchymosis NOSE: Normal external nose present MOUTH: other (Dried blood around lips, and in posterior pharynx) Eye: COMMON NORMALS: Equal, round and reactive pupils present and EOMs intact bilaterally PUPIL: Yes Equal, round and reactive pupils present Neck/C-Spine: GENERAL: Yes trachea midline Resp: COMMON NORMALS: normal respiratory effort and No use of accessory muscles Cardio: COMMON NORMALS: regular rate and regular rhythm RATE: regular rate RHYTHM: regular rhythm GI: COMMON NORMALS: Soft to palpation PALPATION: Yes Soft to palpation and Yes Tenderness to palpation present (GI) Neuro: SENSORIUM/ORIENTATION: Yes alert, Yes oriented to person, Yes oriented to place and No oriented to time Course Vital Signs: Vital signs: Vital Signs Temperature 98.2 F 12/09/23 18:33 Pulse Rate 83 12/09/23 22:00 Respiratory Rate 15 12/09/23 22:00 Blood Pressure 178/92 12/09/23 19:31 Pulse Oximetry 97 12/09/23 22:00 MDM - Weakness Medical Decision Making 77-year-old female with mental status changes and generalized weakness. She is unable to care for herself at home. She is hypertensive. Afebrile. White blood cell count is 13. Hemoglobin is normal. Potassium is 5.4. Bicarbonate is 15. BUN is 96 with a creatinine of 3.4. These are new for this patient. Sodium is 146. Uremia is likely a source of her altered mental status and weakness. Acute renal failure potentially due to dehydration versus hypertensive emergency given the fact that she has not been taking her blood pressure medications. She is given IV metoprolol here as well as oral amlodipine which she is normally on. Lisinopril was held due to acute renal failure. She is hydrated with a liter of fluid. Chest x-ray shows large hiatal hernia. Head CT is nonacute. Belly CT shows no hydronephrosis. There is a large rectal stool ball indicative of potential impaction. Given her acute renal failure, she will be admitted. Hospitalist is aware. Lab Data 12/09/23 19:56 12/09/23 19:56 Radiology Impressions Chest X-Ray 12/09/23 18:34 IMPRESSION: 1. No definite acute cardiopulmonary findings. 2. Large hiatal hernia. Head CT 12/09/23 18:34 IMPRESSION: No acute intracranial findings. Abdomen/Pelvis CT 12/09/23 21:14 IMPRESSION: 1. Moderately large rectal stool ball could represent impacted fecal material. Mild circumferential rectal wall thickening may represent mild/early stercoral colitis. 2. Decompressed urinary bladder with a Lopez catheter in place. 3. Mild gaseous prominence of multiple colonic bowel loops, including in the sigmoid colon, nonspecific. No evidence of bowel obstruction. 4. Large type 4 hiatal hernia containing the majority of the stomach as well as portions of the pancreas. Laboratory Results WBC 12.76 10^3/uL (3.29-11.43) H 12/09/23 19:56 RBC 4.58 10^6/uL (3.85-5.65) 12/09/23 19:56 Hgb 12.90 g/dL (11.27-16.99) 12/09/23 19:56 Hct 41.1 % (36-47) 12/09/23 19:56 MCV 89.7 fl (85-98) 12/09/23 19:56 MCH 28.2 pg (27-33) 12/09/23 19:56 MCHC 31.4 g/dL (30-55) 12/09/23 19:56 RDW 17.1 % (12.1-15.1) H 12/09/23 19:56 Plt Count 247 10^3/cmm (157-399) 12/09/23 19:56 MPV 12.5 fL (7.4-10.4) H 12/09/23 19:56 Neut % (Auto) 79.0 % 12/09/23 19:56 Lymph % (Auto) 12.8 % 12/09/23 19:56 Yancey % (Auto) 7.1 % 12/09/23 19:56 Eos % (Auto) 0.3 % 12/09/23 19:56 Baso % (Auto) 0.5 % 12/09/23 19:56 Neut # (Auto) 10.09 10^3/uL (1.8-7.7) H 12/09/23 19:56 Lymph # (Auto) 1.6 10^3/uL (0.8-4.8) 12/09/23 19:56 Yancey # (Auto) 0.9 10^3/uL (0.2-0.9) 12/09/23 19:56 Eos # (Auto) 0.0 10^3/uL (0.0-0.8) 12/09/23 19:56 Baso # (Auto) 0.1 10^3/uL (0.0-0.1) 12/09/23 19:56 Nucleated RBC % (auto) 0 % 12/09/23 19:56 Nucleated RBCs # 0.0 /100WBC 12/09/23 19:56 PT 35.10 SECONDS (12.1-14.9) H 12/09/23 19:56 INR 3.34 (0.8-1.2) H 12/09/23 19:56 Sodium 146 mmol/L (136-145) H 12/09/23 19:56 Potassium 5.4 mmol/L (3.5-5.1) H 12/09/23 19:56 Chloride 112 mmol/L (98-107) H 12/09/23 19:56 Carbon Dioxide 15 mmol/L (22-29) L 12/09/23 19:56 Anion Gap 24.4 (5-19) H 12/09/23 19:56 BUN 96 mg/dL (8-23) H* D 12/09/23 19:56 Creatinine 3.4 mg/dL (0.5-0.9) H 12/09/23 19:56 GFR Calculation Not Reportable 12/09/23 19:56 Glucose 78 mg/dL (65-115) 12/09/23 19:56 POC Glucose 62 mg/dL (70-110) L 12/09/23 21:11 Calculated Osmolality 331 mOsm/kg (285-295) H 12/09/23 19:56 Lactic Acid 1.5 mmol/L (0.5-2.2) 12/09/23 19:56 Calcium 10.7 mg/dL (8.5-10.5) H 12/09/23 19:56 Magnesium 2.1 mg/dL (1.7-2.3) 12/09/23 19:56 Total Bilirubin 0.8 mg/dL (0.15-1.2) 12/09/23 19:56 AST 27 U/L (0-32) 12/09/23 19:56 ALT 20 U/L (0-33) 12/09/23 19:56 Alkaline Phosphatase 81 U/L (35-105) 12/09/23 19:56 C-Reactive Protein 54.6 mg/L (0.0-4.9) H 12/09/23 19:56 Total Protein 6.9 g/dL (6.6-8.7) 12/09/23 19:56 Albumin 3.7 g/dL (3.5-5.2) 12/09/23 19:56 Globulin 3.2 g/dL (1.3-4.6) 12/09/23 19:56 Lipase 26 U/L (13-60) 12/09/23 19:56 Urine Color Yellow (Yellow) 12/09/23 20:57 Urine Appearance Clear (CLEAR) 12/09/23 20:57 Urine pH 5 (5-7) 12/09/23 20:57 Ur Specific [place] 1.020 (1.005-1.030) 12/09/23 20:57 Urine Protein Trace (Negative) 12/09/23 20:57 Urine Glucose (UA) Norm (Normal) 12/09/23 20:57 Urine Ketones Negative (Negative) 12/09/23 20:57 Urine Blood Neg (Negative) 12/09/23 20:57 Urine Nitrate Negative (Negative) 12/09/23 20:57 Urine Bilirubin 1+ (Negative) H 12/09/23 20:57 Urine Urobilinogen Norm mg/dL (Negative) 12/09/23 20:57 Ur Leukocyte Esterase Trace (Negative) H 12/09/23 20:57 Urine RBC 0-4 /hpf (0-2) H 12/09/23 20:57 Urine WBC Rare /hpf (0-5) 12/09/23 20:57 Ur Squamous Epith Cells 0-4 /hpf (0-5) H 12/09/23 20:57 Amorphous Sediment Not Reportable 12/09/23 20:57 Urine Bacteria 1+ /hpf (NONE) H 12/09/23 20:57 All radiology interpretation(s) finalized by discharge Discharge Plan Discharge Patient Disposition: Admitted As Inpatient Admit Provider: Burt Bowden Clinical Impression: Acute kidney injury Hypertension Qualifiers: Hypertension type: essential hypertension Qualified Code(s): I10 - Essential (primary) hypertension Condition: Stable Coding Level of Care Code ED Spool Winder for Chg Fwd Related Data Home Medications Medication Instructions Recorded Confirmed calcium carbonate 600 mg-vitamin 1 tab PO DAILY 03/28/19 11/19/23 D3 10 mcg (400 unit) chewable tablet (Calcium 600 with Vitamin D3) cyanocobalamin (vitamin B-12) 1,000 mcg PO DAILY 03/28/19 11/19/23 1,000 mcg tablet (Vitamin B-12) multivitamin 1 tab PO DAILY 03/28/19 11/19/23 albuterol sulfate 90 mcg/actuation 2 puff inhalation Q6H PRN 07/24/22 11/19/23 aerosol inhaler Shortness Of Breath Or Wheezing atorvastatin 40 mg tablet 40 mg PO BEDTIME 07/24/22 11/19/23 levothyroxine 75 mcg tablet 75 mcg PO DAILY 07/24/22 11/19/23 mirtazapine 30 mg tablet 30 mg PO BEDTIME 07/24/22 11/19/23 potassium chloride 20 mEq 20 meq PO DAILY 07/24/22 11/19/23 tablet,extended release(part/cryst) aspirin 81 mg tablet,delayed 81 mg PO BEDTIME 11/19/23 11/19/23 release lisinopril 40 mg tablet 40 mg PO 0700,0300 11/19/23 11/19/23 oxycodone 10 mg tablet 10 - 20 mg PO Q4H PRN Pain, 11/19/23 11/19/23 Moderate pregabalin 225 mg capsule (Lyrica) 225 mg PO BEDTIME 11/19/23 11/19/23 ropinirole 1 mg tablet 0.5 mg PO BEDTIME 11/19/23 11/19/23 Previous Rx's Medication Instructions Recorded gbslit-qhzxelbl-lnyeisz 2 cap PO .qac #180 caps 06/27/21 40,000-126,000-168,000 unit capsule, delay rel (Zenpep) ferrous gluconate 324 mg (37.5 mg 324 mg PO BID #90 tabs 01/24/22 iron) tablet Budin Hammer Toe Knowledge Management Consultant #1 ea 10/03/22 diclofenac sodium 1 % topical gel 2 g topical QID PRN Pain #100 grams 01/03/23 (Voltaren Arthritis Pain) budesonide-formoterol HFA 160 2 puff inhalation BID #10.2 grams 06/18/23 mcg-4.5 mcg/actuation aerosol inhaler (Symbicort) triamterene 37.5 1 tab PO DAILY #90 tabs 06/20/23 mg-hydrochlorothiazide 25 mg tablet amlodipine 5 mg tablet 10 mg (2 x 5 mg) PO DAILY #100 tabs 11/23/23 clonidine HCl 0.1 mg tablet 0.1 mg PO BID 30 days #60 tabs 11/23/23 Allergies Allergy/AdvReac Type Severity Reaction Status Date / Time No Known Allergies Allergy Verified 12/09/23 18:32
[2023-12-09 20:34] LABS: Alanine Aminotransferase 20 U/L (0-33); Albumin Level 3.7 g/dL (3.5-5.2); Alkaline Phosphatase 81 U/L (35-105); Aspartate Amino Transferase 27 U/L (0-32); C Reactive Protein 54.6 mg/L (0.0-4.9); Calcium 10.7 mg/dL (8.5-10.5); Carbon Dioxide 15 mmol/L (22-29); Chloride 112 mmol/L (98-107); Creatinine Clr Calc Pharmacy 10.7034; Globulin 3.2 g/dL (1.3-4.6); Glucose 78 mg/dL (65-115); Lipase 26 U/L (13-60); Magnesium 2.1 mg/dL (1.7-2.3); Osmolality Calculated 331 mOsm/kg (285-295); Sodium 146 mmol/L (136-145); Total Bilirubin 0.8 mg/dL (0.15-1.2); Total Protein 6.9 g/dL (6.6-8.7)
[2023-12-09 20:36] LABS: INR 3.34 (0.8-1.2)
[2023-12-09 21:01] LABS: Anion Gap 24.4 (5-19); Blood Urea Nitrogen 96 mg/dL (8-23); Potassium 5.4 mmol/L (3.5-5.1)
--- NOTE | 2023-12-09 21:14 | CTR_ITS ---
PROCEDURE INFORMATION: Exam: CT Abdomen And Pelvis Without Contrast Exam date and time: 12/09/2023 9:31 PM Age: 77 years old Clinical indication: Abnormal findings; Abnormal lab test; Abnormal kidney function lab tests and elevated wbc; Prior surgery; Surgery date: 6+ months; Surgery type: Ileostomy reversal. Appy. Hysterectomy. Patient HX: Elevated wbc with bun of 96 and creat of 3.4; Additional info: Abd pain, elevated bun CR, per hospitalist TECHNIQUE: Imaging protocol: Computed tomography of the abdomen and pelvis without contrast. Radiation optimization: All CT scans at this facility use at least one of these dose optimization techniques: automated exposure control; mA and/or kV adjustment per patient size (includes targeted exams where dose is matched to clinical indication); or iterative reconstruction. COMPARISON: MR MRCP [id number] 03/24/2019 1:23 PM RADIATION DOSE METRICS: Total DLP (mGy-cm): 342.01 FINDINGS: Lungs: Mild bibasilar atelectasis. Liver: Normal. No mass. Gallbladder and biliary ducts: Normal. No calcified stones. No ductal dilation. Pancreas: Large type 4 hiatal hernia containing majority of the stomach as well as portions of the pancreas and mesenteric fat and vessels. Spleen: Normal. No splenomegaly. Adrenal glands: Normal. No mass. Kidneys and ureters: Normal. No hydronephrosis. Stomach and bowel: Moderate to large rectal stool ball. Mild circumferential rectal wall thickening. Bowel suture lines are seen in the left anterior abdomen. Mild gaseous prominence of portions of the colon, including the sigmoid colon. No evidence to suggest bowel obstruction. Appendix: No evidence of appendicitis. Intraperitoneal space: See Pancreas finding. Vasculature: Moderate diffuse atherosclerotic calcifications of the abdominal aorta and its branch vessels. No aortic aneurysm. Lymph nodes: Unremarkable. No enlarged lymph nodes. Urinary bladder: The urinary bladder is decompressed with a Lopez catheter in place. Reproductive: Status post hysterectomy. Bones/joints: Levoscoliosis of the lumbar spine with multilevel degenerative changes, most pronounced at L3-L4, progressed from 2018. Mildly increased size of the sclerotic focus at L1, suspected to be a bone island. Soft tissues: Unremarkable. CT/CT kidney stone [id number] IMPRESSION: 1. Moderately large rectal stool ball could represent impacted fecal material. Mild circumferential rectal wall thickening may represent mild/early stercoral colitis. 2. Decompressed urinary bladder with a Lopez catheter in place. 3. Mild gaseous prominence of multiple colonic bowel loops, including in the sigmoid colon, nonspecific. No evidence of bowel obstruction. 4. Large type 4 hiatal hernia containing the majority of the stomach as well as portions of the pancreas.
[2023-12-09 21:15] LABS: Glucose Point of Care 62 mg/dL (70-110)
[2023-12-09 21:22] LABS: Add Urine Microscopic? YES; Bacteria Urine 1+ /hpf; Bilirubin Urine 1+ (Negative); Blood Urine Neg (Negative); Glucose Urine UA Norm (Normal); Ketones Urine Negative (Negative); Leukocyte Esterase Urine Trace (Negative); Nitrate Urine Negative (Negative); Protein Urine Trace (Negative); RBC Urine 0-4 /hpf (0-2); Squamous Epithelial Cell Urine 0-4 /hpf (0-5); UA Manual Slide Review YES; UA Slide Review UA Slide Review Perf; Urine Appearance Clear (CLEAR); Urine Color Yellow (Yellow); Urobilinogen Urine Norm (Negative); WBC Urine RARE /hpf (0-5); pH Urine 5 (5-7)
[2023-12-09 22:00] VITALS: PULSE 83; RESP 15; O2SAT 97
--- NOTE | 2023-12-09 22:14 | P.HP_ITS ---
Providers/Chief Complaint 2 Admitting Physician: Burt Bowden MD Primary Care Provider: Jannet Cisse MD Chief Complaint: weakness History of Present Illness Ivan Peguero is a 77 year old female with a past medical history significant for chronic pain, osteoarthritis, hypertension, hypothyroidism, and multiple other comorbidities who presents with altered mental status. Upon assessment, patient is confused making her history unreliable. Further collateral information was collected from prior provider and chart review. Patient was recently a resident at [facility]. She reportedly went home about a week and a half ago. Since that time, her confusion and weakness has progressively worsened. She endorses poor oral intake. Reports emesis prior today. Denies any fevers, chills, abdominal pain or localized weakness. In the emergency department, patient was found to be confused. Vitals were notable for elevated blood pressures. Labs revealed mild leukocytosis as well as multiple metabolic derangements. Urinalysis was mildly abnormal. CT head was negative for acute intracranial findings. Review of Systems 2 Narrative: A complete review of systems was obtained and is negative except as stated in HPI. Medications/Allergies Home Medications Medication Instructions Recorded Confirmed Last Taken Type calcium carbonate 600 mg-vitamin 1 tab PO DAILY 03/28/19 12/09/23 06/21/23 05:30 History D3 10 mcg (400 unit) chewable tablet (Calcium 600 with Vitamin D3) cyanocobalamin (vitamin B-12) 1,000 mcg PO DAILY 03/28/19 12/09/23 06/21/23 05:30 History 1,000 mcg tablet (Vitamin B-12) multivitamin 1 tab PO DAILY 03/28/19 12/09/23 06/21/23 05:30 History yidlhv-xcqarexn-wclvgtj 2 cap PO .[facility] #180 caps 06/27/21 12/09/23 06/20/23 19:00 Rx 40,000-126,000-168,000 unit capsule, delay rel (Zenpep) ferrous gluconate 324 mg (37.5 mg 324 mg PO BID #90 tabs 01/24/22 12/09/23 06/20/23 Rx iron) tablet albuterol sulfate 90 mcg/actuation 2 puff inhalation Q6H PRN 07/24/22 12/09/23 06/21/23 History aerosol inhaler Shortness Of Breath Or Wheezing 0530 atorvastatin 40 mg tablet 40 mg PO BEDTIME 07/24/22 12/09/23 06/20/23 History levothyroxine 75 mcg tablet 75 mcg PO DAILY 07/24/22 12/09/23 06/21/23 05:30 History mirtazapine 30 mg tablet 30 mg PO BEDTIME 07/24/22 12/09/23 06/21/23 05:30 History potassium chloride 20 mEq 20 meq PO DAILY 07/24/22 12/09/23 06/19/23 History tablet,extended release(part/cryst) Budin Hammer Toe Adult School Counselor #1 ea 10/03/22 12/09/23 Unknown Rx diclofenac sodium 1 % topical gel 2 g topical QID PRN Pain #100 grams 01/03/23 12/09/23 06/19/23 Rx (Voltaren Arthritis Pain) triamterene 37.5 1 tab PO DAILY #90 tabs 06/20/23 12/09/23 06/21/23 05:30 Rx mg-hydrochlorothiazide 25 mg tablet aspirin 81 mg tablet,delayed 81 mg PO BEDTIME 11/19/23 12/09/23 Unknown History release lisinopril 40 mg tablet 40 mg PO 0700,0300 11/19/23 12/09/23 Unknown History oxycodone 10 mg tablet 10 - 20 mg PO Q4H PRN Pain, 11/19/23 12/09/23 Unknown History Moderate pregabalin 225 mg capsule (Lyrica) 225 mg PO BEDTIME 11/19/23 12/09/23 Unknown History ropinirole 1 mg tablet 0.5 mg PO BEDTIME 11/19/23 12/09/23 Unknown History amlodipine 5 mg tablet 10 mg (2 x 5 mg) PO DAILY #100 tabs 11/23/23 12/09/23 Unknown Rx clonidine HCl 0.1 mg tablet 0.1 mg PO BID 30 days #60 tabs 11/23/23 12/09/23 Unknown Rx budesonide-formoterol HFA 160 2 puff inhalation BID 12/09/23 12/09/23 Unknown History mcg-4.5 mcg/actuation aerosol inhaler (Symbicort) famotidine 40 mg tablet 40 mg PO DAILY 12/09/23 12/09/23 Unknown History pantoprazole 40 mg tablet,delayed 40 mg PO DAILY 12/09/23 12/09/23 Unknown History release Allergies Allergy/AdvReac Type Severity Reaction Status Date / Time No Known Allergies Allergy Verified 12/09/23 18:32 PFSH Acute 2 PFSH: Medical History Enrolled in chronic care management Right knee DJD Osteoporosis Greater trochanteric bursitis Yeast vaginitis COVID-19 virus infection Diarrhea Urinary retention Urinary incontinence Recurrent UTI Atherosclerotic heart disease of [place] coronary artery with other forms of angina pectoris Abnormal cardiovascular stress test NSTEMI (non-ST elevated myocardial infarction) Hyperlipidemia Hypertension Urgency incontinence Pyelonephritis Ileostomy, has currently Past heart attack Long-term current use of opiate analgesic Pain management contract signed Restless legs syndrome Fibromyalgia Chronic low back pain Surgical History H/O ileostomy Hx of appendectomy (~1973) Hx of hysterectomy (~1973) History of reversal of ileostomy Hx of tubal ligation Hx of foot surgery (~11/2013) RIGHT FOOT Family History Brother , BONE METS Cancer COLON CANCER Mother Heart disease Family history of thyroid problem Grandmother Heart disease Father Hyperlipidemia Social History Smoking and tobacco/nicotine status: former use of tobacco/nicotine Second hand smoke exposure: No Alcohol intake: never Substance/Drug Use: never Lives independently: Yes Marital status: / Vitals/I&O/Wt Last Vital Signs Temp 98.2 F 12/09/23 18:33 Pulse 97 12/09/23 19:31 Resp 17 12/09/23 19:31 BP 178/92 12/09/23 19:31 Pulse Ox 97 12/09/23 19:31 Weight last 48 hrs Weight 52.163 kg Physical Exam 2 Narrative: General: Patient is awake. In mild distress. Head: Normocephalic. Atraumatic. EOM intact. Dry mucous membranes. Neck: No JVD. Cardiovascular: RRR. No gallops. No murmurs. Hypertensive. Lungs: Clear to auscultation, no use of accessory muscles, no crackles or wheezes. Skin: No jaundice. No rashes. Abdomen: Normal bowel sounds, abdomen soft and nontender. Genito Urinary: Genital exam not performed since complaints not related. Rectal: Rectal exam not performed since no symptoms indicated blood loss. Extremities: No cyanosis or clubbing. Musculoskeletal: No swollen or erythematous joints. Neurological: Moves all 4 extremities. No myoclonus. Urinary Catheter Management: Lopez: Cath Placed During This Visit: yes Urinary Catheter Date of Insertion: 12/09/23 Urinary Catheter Time of Insertion: 21:02 Data 12/09/23 19:56 12/09/23 19:56 A&P Assessment and plan (1) Acute kidney injury: Acute kidney injury associated with dehydration, hyperkalemia, hypercalcemia, hypernatremia, and HAGMA Admission BUN/Cr of 96/3.4, previously 13/1.0 CT abd/pelvis negative for hydronephrosis Check urine electrolytes Strict I&Os Daily weights Avoid nephrotoxins Renally dose medications Telemetry monitoring Start bicarb drip (2) Altered mental status: Acute metabolic encephalopathy with uremia Treat underlying kidney injury Optimize electrolytes Treat uncontrolled blood pressure Avoid sedating medications Supportive care (3) Abnormal urinalysis: Urinalysis reviewed, trace LE and 1+ bacteremia Start ceftriaxone (4) Hypertension: Hypertension, uncontrolled Hold home ACEI and diuretic due to JASON Continue home Norvasc and clonidine IV hydralazine as needed Qualifiers: Hypertension type: essential hypertension Qualified Code(s): I10 - Essential (primary) hypertension (5) Constipation: Start bowel regimen (6) Hypothyroidism: TSH 1.07 (11/19/23) Continue Synthroid (7) Restless legs syndrome: Continue Requip Plan DVT ppx: Heparin Code: Full Attestations 2 Medical Necessity Statement*: Patient presents with confusion, found to have multiple metabolic derangements and acute metabolic encephalopathy with expected authorization not to cross 2 midnights for IV hydration, correction of electrolytes, IV antibiotics, blood pressure control, and supportive care. Coding Level of Care Code Acute Code for [facility] Diagnoses Acute kidney injury N17.9 Altered mental status R41.82 Abnormal urinalysis R82.90 Essential hypertension I10 Hypertension type: essential hypertension Constipation K59.00 Hypothyroidism E03.9 Restless legs syndrome G25.81
[2023-12-09] MEDS: metoprolol tartrate 1 mg/1 mL SDV 5 mL 5 MG IVP (22:43)
[2023-12-09] MEDS: sodium chloride 0.9% 1,000 ML 999 ML IV (22:43)
[2023-12-09] MEDS: amlodipine 10 mg Tablet PO (22:44)
[2023-12-09 22:48] VITALS: BP 189/88; PULSE 56; O2SAT 96
[2023-12-09] MEDS: cefTRIAXone 1,000 mg SDV 1000 MG IVP (23:37)
[2023-12-10] VITALS (15 sets, daily range): BP systolic 110–178; BP diastolic 67–80; PULSE 54–92; RESP 14–20; TEMP 36.4–36.7; O2SAT 92–98
[2023-12-10] MEDS: sodium bicarbonate 150 MEQ in dextrose 5% 1,000 ML 75 MEQ IV (00:06)
[2023-12-10 00:31] LABS: Glucose Point of Care 86 mg/dL (70-110)
[2023-12-10] MEDS: levothyroxine 75 mcg Tablet PO (05:15)
[2023-12-10] MEDS: heparin 5,000 unit/mL INJ 1 mL 5000 UNIT SUBCUT ×2 (05:15→17:03)
[2023-12-10 05:30] LABS: Basophils % 0.4 %; Eosinophils # 0.2 10^3/uL (0.0-0.8); Eosinophils % 1.8 %; Hematocrit 37.6 % (36-47); Lymphocytes # 1.5 10^3/uL (0.8-4.8); Mean Corpuscular HGB Conc 32.2 g/dL (30-55); Mean Corpuscular Hemoglobin 27.7 pg (27-33); Mean Platelet Volume 12.2 fL (7.4-10.4); Monocytes # 0.7 10^3/uL (0.2-0.9); Monocytes % 7.1 %; Neutrophils # 7.91 10^3/uL (1.8-7.7); Neutrophils % 76.4 %; Nucleated Red Blood Cells % 0 %; Platelet Count 250 10^3/cmm (157-399); Red Blood Count 4.37 10^6/uL (3.85-5.65); Red Cell Distribution Width 16.9 % (12.1-15.1); White Blood Count 10.36 10^3/uL (3.29-11.43)
[2023-12-10 05:45] LABS: Alanine Aminotransferase 17 U/L (0-33); Albumin Level 3.3 g/dL (3.5-5.2); Alkaline Phosphatase 71 U/L (35-105); Anion Gap 16.4 (5-19); Aspartate Amino Transferase 21 U/L (0-32); Calcium 9.5 mg/dL (8.5-10.5); Carbon Dioxide 22 mmol/L (22-29); Chloride 115 mmol/L (98-107); Creatinine Clr Calc Pharmacy 15.2041; Globulin 2.6 g/dL (1.3-4.6); Glucose 95 mg/dL (65-115); Magnesium 1.9 mg/dL (1.7-2.3); Osmolality Calculated 335 mOsm/kg (285-295); Phosphorus 3.9 mg/dL (2.5-4.5); Potassium 4.4 mmol/L (3.5-5.1); Sodium 149 mmol/L (136-145); Total Bilirubin 0.6 mg/dL (0.15-1.2); Total Protein 5.9 g/dL (6.6-8.7)
[2023-12-10 05:49] LABS: Blood Urea Nitrogen 88 mg/dL (8-23)
--- NOTE | 2023-12-10 08:04 | P.PN_ITS ---
Subjective 2 Subjective: Awakens easily. However, somewhat sleepy when answering questions and I believe at least somewhat confused. Denies pain currently. Vitals/I&O/Wt Last Vital Signs Temp 98.0 F 12/10/23 04:00 Pulse 71 12/10/23 05:40 Resp 17 12/10/23 04:00 BP 153/79 12/10/23 04:00 Pulse Ox 92 12/10/23 04:00 O2 Del Method Room Air 12/10/23 04:00 12/09/23 12/10/23 12/10/23 22:59 06:59 14:59 Intake Total 1120 / 1120 Output Total 700 / 700 Balance 420 / 420 Weight last 48 hrs Weight 62.55 kg Weight 56.387 kg Weight 52.163 kg Physical Exam 2 Narrative: General exam is conversant but confused Neck is supple Cardiovascular regular rate and rhythm Lungs clear Abdomen soft Extremities no cyanosis clubbing edema Urinary Catheter Management: Lopez: Cath Placed During This Visit: yes Reason for Continuing Indwelling Catheter: Other Urinary Catheter Date of Insertion: 12/09/23 Urinary Catheter Time of Insertion: 21:02 Data 12/10/23 05:05 12/10/23 05:05 A&P Assessment and plan (1) Acute kidney injury: Acute kidney injury associated with dehydration, hyperkalemia, hypercalcemia, hypernatremia, and HAGMA Admission BUN/Cr of 96/3.4, previously 13/1.0 CT abd/pelvis negative for hydronephrosis Strict I&Os Daily weights Avoid nephrotoxins Renally dose medications Telemetry monitoring Check CK With improvement in creatinine but increase in sodium changed to half-normal saline at 75 cc an hour Recheck lab this afternoon BMP, CBC tomorrow (2) Altered mental status: Acute metabolic encephalopathy with uremia Treat underlying kidney injury Optimize electrolytes Treat uncontrolled blood pressure Avoid sedating medications Supportive care Check ammonia secondary to elevated INR Head CT was checked and negative (3) Abnormal urinalysis: Urinalysis reviewed, trace LE and 1+ bacteremia Continue ceftriaxone Await culture (4) Hypertension: Hypertension, uncontrolled Hold home ACEI and diuretic due to JASON Continue home Norvasc and clonidine IV hydralazine as needed If continues to remain high initiate scheduled hydralazine Qualifiers: Hypertension type: essential hypertension Qualified Code(s): I10 - Essential (primary) hypertension (5) Constipation: Start bowel regimen (6) Hypothyroidism: TSH 1.07 (11/19/23) Continue Synthroid (7) Restless legs syndrome: Continue Requip Plan Elevated INR. Unknown etiology. No history of cirrhosis. Repeat INR, and check ammonia level. If still elevated consider giving vitamin K and rechecking tomorrow DVT ppx: Heparin Code: Full Attestations 2 Medical Necessity Statement*: Requires continued hospitalization secondary to acute kidney injury with acute encephalopathy. Still with significant renal failure and confusion. Diagnoses Acute kidney injury N17.9 Altered mental status R41.82 Abnormal urinalysis R82.90 Essential hypertension I10 Hypertension type: essential hypertension Constipation K59.00 Hypothyroidism E03.9 Restless legs syndrome G25.81
[2023-12-10 08:17] LABS: Creatine Phosphokinase 99 U/L (26-192)
[2023-12-10] MEDS: budesonide 0.5 mg/2 mL Neb INHALATION ×2 (08:59→20:52)
[2023-12-10] MEDS: albuterol 2.5 mg/3 mL Neb INHALATION ×2 (08:59→20:52)
[2023-12-10 09:09] LABS: INR 3.75 (0.8-1.2)
[2023-12-10] MEDS: sodium chloride 0.45% 1,000 ML 75 ML IV ×2 (09:14→20:10)
[2023-12-10] MEDS: polyethylene glycol 3350 Pkt 17 gm PO (09:15)
[2023-12-10] MEDS: sennosides 8.6 mg Tablet 17.2 MG PO ×2 (09:15→17:02)
[2023-12-10] MEDS: cloNIDine 0.1 mg Tablet PO ×2 (09:15→17:02)
[2023-12-10] MEDS: pneumococcal (23 valent) SDV 0.5 mL IM (09:16)
[2023-12-10 09:20] LABS: Ammonia 39 umol/L (11-51)
[2023-12-10 09:35] LABS: Potassium, Radom Urine 80 mmol/L; Urine Random Chloride 38 mmol/L; Urine Random Sodium 32 mmol/L
[2023-12-10] MEDS: amlodipine 10 mg Tablet PO (17:03)
[2023-12-10] MEDS: oxyCODONE 5 mg IR Tab/Cap 10 MG PO ×2 (17:25→23:11)
[2023-12-10] MEDS: ropinirole 1 mg Tablet 0.5 MG PO (20:10)
[2023-12-10] MEDS: aspirin 81 mg EC Tablet PO (20:10)
[2023-12-10] MEDS: atorvastatin 40 mg Tablet PO (20:10)
[2023-12-10] MEDS: cefTRIAXone 1,000 mg SDV 1000 MG IVP (23:10)
[2023-12-11] VITALS (18 sets, daily range): BP systolic 104–149; BP diastolic 55–82; PULSE 50–71; RESP 14–18; TEMP 36.4–36.9; O2SAT 92–96
[2023-12-11] MEDS: levothyroxine 75 mcg Tablet PO (05:15)
[2023-12-11] MEDS: heparin 5,000 unit/mL INJ 1 mL 5000 UNIT SUBCUT ×2 (05:15→17:11)
[2023-12-11 05:56] LABS: Basophils % 0.4 %; Eosinophils # 0.3 10^3/uL (0.0-0.8); Eosinophils % 3.9 %; Hematocrit 34.6 % (36-47); Lymphocytes # 1.5 10^3/uL (0.8-4.8); Lymphocytes % 20.1 %; Mean Corpuscular HGB Conc 32.1 g/dL (30-55); Mean Corpuscular Volume 87.4 fl (85-98); Monocytes # 0.5 10^3/uL (0.2-0.9); Monocytes % 6.8 %; Neutrophils # 5.05 10^3/uL (1.8-7.7); Neutrophils % 68.5 %; Nucleated Red Blood Cells % 0 %; Platelet Count 206 10^3/cmm (157-399); Red Blood Count 3.96 10^6/uL (3.85-5.65); Red Cell Distribution Width 16.5 % (12.1-15.1); White Blood Count 7.37 10^3/uL (3.29-11.43)
[2023-12-11 06:22] LABS: Alanine Aminotransferase 19 U/L (0-33); Albumin Level 2.8 g/dL (3.5-5.2); Alkaline Phosphatase 62 U/L (35-105); Anion Gap 13.6 (5-19); Aspartate Amino Transferase 28 U/L (0-32); Blood Urea Nitrogen 63 mg/dL (8-23); Calcium 8.7 mg/dL (8.5-10.5); Carbon Dioxide 25 mmol/L (22-29); Chloride 112 mmol/L (98-107); Creatinine Clr Calc Pharmacy 21.9615; Globulin 2.4 g/dL (1.3-4.6); Glucose 108 mg/dL (65-115); Magnesium 1.6 mg/dL (1.7-2.3); Osmolality Calculated 323 mOsm/kg (285-295); Potassium 3.6 mmol/L (3.5-5.1); Sodium 147 mmol/L (136-145); Total Bilirubin 0.6 mg/dL (0.15-1.2); Total Protein 5.2 g/dL (6.6-8.7)
[2023-12-11] MEDS: albuterol 2.5 mg/3 mL Neb INHALATION ×2 (09:03→21:03)
[2023-12-11] MEDS: budesonide 0.5 mg/2 mL Neb INHALATION ×2 (09:03→21:03)
[2023-12-11] MEDS: sennosides 8.6 mg Tablet 17.2 MG PO ×2 (09:46→17:10)
[2023-12-11] MEDS: cloNIDine 0.1 mg Tablet PO ×2 (09:49→17:11)
[2023-12-11] MEDS: amlodipine 10 mg Tablet PO (09:49)
[2023-12-11] MEDS: sodium chloride 0.45% 1,000 ML 75 ML IV (09:54)
[2023-12-11] MEDS: phytonadione (ADULT) 10 mg/mL Ampule 1 mL PO (10:37)
[2023-12-11] MEDS: magnesium sulfate premix 2 GM/50 ML PIGGYBACK IV (10:37)
[2023-12-11] MEDS: lipase-protease-amylase Capsule 2 EACH PO ×2 (11:27→17:10)
--- NOTE | 2023-12-11 15:30 | P.PN_ITS ---
Subjective 2 Subjective: Awakens easily. Less confused. Denies complaints of pain. No shortness of breath. Medications: Reviewed: Yes Vitals/I&O/Wt Last Vital Signs Temp 97.6 F 12/11/23 11:30 Pulse 71 12/11/23 11:30 Resp 16 12/11/23 11:30 BP 115/69 12/11/23 11:30 Pulse Ox 96 12/11/23 11:30 O2 Del Method Room Air 12/11/23 11:30 12/11/23 12/11/23 12/11/23 06:59 14:59 22:59 Intake Total 150 / 2188.75 1720 / 1720 Output Total 550 / 550 Balance 150 / 1288.75 1170 / 1170 Weight last 48 hrs Weight 62.641 kg Weight 62.55 kg Weight 56.387 kg Weight 52.163 kg Physical Exam 2 Narrative: General exam is conversant and appropriate Neck is supple Cardiovascular regular rate and rhythm Lungs clear Abdomen soft Extremities no cyanosis clubbing edema Urinary Catheter Management: Lopez: Cath Placed During This Visit: yes Reason for Continuing Indwelling Catheter: Other Urinary Catheter Date of Insertion: 12/09/23 Urinary Catheter Time of Insertion: 21:02 Data 12/11/23 04:56 12/11/23 04:56 A&P Assessment and plan (1) Acute kidney injury: Acute kidney injury associated with dehydration, hyperkalemia, hypercalcemia, hypernatremia, and HAGMA Admission BUN/Cr of 96/3.4, previously 13/1.0 CT abd/pelvis negative for hydronephrosis Strict I&Os Daily weights Avoid nephrotoxins Renally dose medications Telemetry monitoring CK checked and normal Continued improvement of renal function BMP tomorrow (2) Altered mental status: Acute metabolic encephalopathy with uremia Treat underlying kidney injury Optimize electrolytes Treat uncontrolled blood pressure Avoid sedating medications Supportive care Ammonia was checked and normal Head CT was checked and negative (3) Abnormal urinalysis: Urinalysis reviewed, trace LE and 1+ bacteremia Continue ceftriaxone Await culture (4) Hypertension: Hypertension, uncontrolled Hold home ACEI and diuretic due to JASON Continue home Norvasc and clonidine IV hydralazine as needed Blood pressure stable currently Qualifiers: Hypertension type: essential hypertension Qualified Code(s): I10 - Essential (primary) hypertension (5) Constipation: Start bowel regimen (6) Hypothyroidism: TSH 1.07 (8/26/24) Continue Synthroid (7) Restless legs syndrome: Continue Requip Plan Elevated INR. Still significantly high. Vitamin K 10 mg p.o. given. Recheck tomorrow. DVT ppx: Heparin Code: Full Attestations 2 Medical Necessity Statement*: Needs continued hospital stay for IV fluids, close follow-up of renal dysfunction, attempt at correcting INR. Diagnoses Acute kidney injury N17.9 Altered mental status R41.82 Abnormal urinalysis R82.90 Essential hypertension I10 Hypertension type: essential hypertension Constipation K59.00 Hypothyroidism E03.9 Restless legs syndrome G25.81 Time Spent (min) 23
[2023-12-11] MEDS: oxyCODONE 5 mg IR Tab/Cap 10 MG PO ×2 (15:47→22:18)
[2023-12-11] MEDS: ropinirole 1 mg Tablet 0.5 MG PO (22:17)
[2023-12-11] MEDS: atorvastatin 40 mg Tablet PO (22:18)
[2023-12-11] MEDS: aspirin 81 mg EC Tablet PO (22:18)
[2023-12-11] MEDS: cefTRIAXone 1,000 mg SDV 1000 MG IVP (22:19)
--- NOTE | 2023-12-11 22:34 | ECG_ITS ---
[facility] Test Date: 2023-12-11 Pat Name: Ivan Peguero Department: Room: 255 Gender: Female Account Development Associate: : [id number] Requested By: Carlos Dye Order Number: [id number] Soledad MD: Philly Mijares M.D. Measurements Intervals [place] Rate: 61 P: 23 VA: 168 QRS: -34 QRSD: 122 T: -16 QT: 454 QTc: 460 Interpretive Statements SINUS RHYTHM LEFT AXIS DEVIATION [QRS AXIS < -30] RIGHT BUNDLE BRANCH BLOCK [120+ ms QRS DURATION, UPRIGHT V1, 40+ ms S IN I/aVL/V4/V5/V6] MODERATE VOLTAGE CRITERIA FOR LVH, CONSIDER NORMAL VARIANT [MEETS CRITERIA IN ONE OF: R(aVL), S(V1), R(V5), R(V5/V6)+S(V1)] POSSIBLE ANTERIOR MYOCARDIAL INFARCTION , PROBABLY OLD [30 ms Q WAVE IN V3/V4, OR R < 0.2 mV IN V4] Compared to ECG 12/09/2023 18:22:22 Left-axis deviation now present Right bundle-branch block now present Myocardial infarct finding now present Incomplete right bundle-branch block no longer present Left anterior fascicular block no longer present Electronically Signed On 12-13-2023 0:15:51 CDT by Philly Mijares M.D. [id number]
--- NOTE | 2023-12-11 22:49 | PC.NURSE ---
This nurse went to assess the patient and administer her meds. She complained of pain in her head and left leg, so this nurse administered oxycodone 10mg PO as ordered for pain, as well as the other ordered medications at 2217. At 2227, the patient started to complain of indigestion and nausea accompanied with what she described as a dull pain across her heart which travelled to her left arm. An EKG was performed and vitals were checked: HR 64, RR 15, SpO2 92%, BP 149/82. The patient appeared calm but grimaced in pain frequently. This nurse called Dr. Dye at 5 and notified him of the situation, and received orders for and EKG and troponin series, and to reassess the patient and her blood pressure in 30 minutes and to call back if the pain persisted.
[2023-12-11 23:21] LABS: Troponin(5th) Baseline 43 ng/L (0-10)
--- NOTE | 2023-12-11 23:22 | PC.NURSE ---
Addendum entered by Marsha Hastings RN 12/11/23 23:32: Notified Dr. Zayas via VOALTE messenger of patient status and baseline troponin result, which was 43. Original Note: Reassessed patient at 2315. She reports that the chest pain has subsided as well as the nausea. Her blood pressure at this time is 118/72. Acknowledged orders from Dr. Dye for nitroglycerin PRN.
[2023-12-12] VITALS (15 sets, daily range): BP systolic 106–147; BP diastolic 56–74; PULSE 53–69; RESP 16–20; TEMP 36.7–37.2; O2SAT 93–95
--- NOTE | 2023-12-12 00:45 | ECG_ITS ---
[facility] Test Date: 2023-12-12 Pat Name: Ivan Peguero Department: Room: 255 Gender: Female It Program Engagement Director: : 1945 Requested By: Carlos Dye Order Number: [id number] Soledad MD: Philly Mijares M.D. Measurements Intervals [place] Rate: 66 P: 25 MS: 176 QRS: -33 QRSD: 126 T: -15 QT: 441 QTc: 462 Interpretive Statements SINUS RHYTHM LEFT AXIS DEVIATION [QRS AXIS < -30] RIGHT BUNDLE BRANCH BLOCK [120+ ms QRS DURATION, UPRIGHT V1, 40+ ms S IN I/aVL/V4/V5/V6] MODERATE VOLTAGE CRITERIA FOR LVH, CONSIDER NORMAL VARIANT [MEETS CRITERIA IN ONE OF: R(aVL), S(V1), R(V5), R(V5/V6)+S(V1)] POSSIBLE ANTERIOR MYOCARDIAL INFARCTION , PROBABLY OLD [30 ms Q WAVE IN V3/V4, OR R < 0.2 mV IN V4] Compared to ECG 12/11/2023 22:34:53 No significant changes Electronically Signed On 12-13-2023 0:25:21 CDT by Philly Mijares M.D. [id number]
[2023-12-12] MEDS: lidocaine 2% viscous 15 ML, aluminum-mag hydrox-simethicon 30 ML, sucralfate oral liq 1 GM PO (01:53)
[2023-12-12 02:07] LABS: Troponin 5 2HR 39.87 ng/L (0-10)
[2023-12-12 02:37] LABS: Troponin 5 2HR Delta -3.13 ABS# (0-10)
[2023-12-12] MEDS: oxyCODONE 5 mg IR Tab/Cap 10 MG PO ×4 (03:15→20:24)
--- NOTE | 2023-12-12 04:45 | ECG_ITS ---
[facility] Test Date: 2023-12-12 Pat Name: Ivan Peguero Department: Room: 255 Gender: Female Pain Management Physician: : [id number] Requested By: Carlos Dye Order Number: [id number] Soledad MD: Philly Mijares M.D. Measurements Intervals [place] Rate: 59 P: 9 [place]: 191 QRS: -27 QRSD: 121 T: -11 QT: 459 QTc: 458 Interpretive Statements SINUS BRADYCARDIA RIGHT BUNDLE BRANCH BLOCK [120+ ms QRS DURATION, UPRIGHT V1, 40+ ms S IN I/aVL/V4/V5/V6] VOLTAGE CRITERIA FOR LVH [MEETS CRITERIA IN ONE OF: R(aVL), S(V1), R(V5), R(V5/V6)+S(V1)] POSSIBLE ANTERIOR MYOCARDIAL INFARCTION , PROBABLY OLD [30 ms Q WAVE IN V3/V4, OR R < 0.2 mV IN V4] Compared to ECG 12/12/2023 00:49:36 Sinus rhythm no longer present Left-axis deviation no longer present Myocardial infarct finding still present Electronically Signed On 12-13-2023 0:27:01 CDT by Philly Mijares M.D. [id number]
[2023-12-12 05:50] LABS: Basophils % 0.2 %; Eosinophils # 0.6 10^3/uL (0.0-0.8); Hematocrit 33.8 % (36-47); Lymphocytes # 1.3 10^3/uL (0.8-4.8); Lymphocytes % 16.1 %; Mean Corpuscular HGB Conc 31.4 g/dL (30-55); Mean Corpuscular Hemoglobin 27.8 pg (27-33); Mean Corpuscular Volume 88.7 fl (85-98); Mean Platelet Volume 12.7 fL (7.4-10.4); Monocytes # 0.6 10^3/uL (0.2-0.9); Monocytes % 7.1 %; Neutrophils # 5.58 10^3/uL (1.8-7.7); Neutrophils % 69.5 %; Nucleated Red Blood Cells % 0 %; Platelet Count 208 10^3/cmm (157-399); Red Blood Count 3.81 10^6/uL (3.85-5.65); Red Cell Distribution Width 16.6 % (12.1-15.1); White Blood Count 8.03 10^3/uL (3.29-11.43)
[2023-12-12 06:01] LABS: INR 1.23 (0.8-1.2)
[2023-12-12] MEDS: heparin 5,000 unit/mL INJ 1 mL 5000 UNIT SUBCUT ×2 (06:06→17:51)
[2023-12-12] MEDS: lipase-protease-amylase Capsule 2 EACH PO ×3 (06:06→17:51)
[2023-12-12] MEDS: levothyroxine 75 mcg Tablet PO (06:06)
[2023-12-12 06:07] LABS: Troponin 5 6HR 40.55 ng/L (0-10)
[2023-12-12 06:10] LABS: Troponin 5 6HR Delta -2.45 ng/L (0-12)
[2023-12-12 06:11] LABS: Blood Urea Nitrogen 41 mg/dL (8-23); Calcium 8.8 mg/dL (8.5-10.5); Carbon Dioxide 24 mmol/L (22-29); Chloride 108 mmol/L (98-107); Creatinine Clr Calc Pharmacy 26.9844; Glucose 109 mg/dL (65-115); Osmolality Calculated 305 mOsm/kg (285-295); Sodium 142 mmol/L (136-145)
[2023-12-12 06:15] LABS: Anion Gap 13.9 (5-19); Potassium 3.9 mmol/L (3.5-5.1)
[2023-12-12] MEDS: cloNIDine 0.1 mg Tablet PO ×2 (07:31→17:51)
[2023-12-12] MEDS: pantoprazole DR 40 mg Tablet PO ×2 (07:31→09:14)
[2023-12-12] MEDS: amlodipine 10 mg Tablet PO (07:31)
[2023-12-12] MEDS: sennosides 8.6 mg Tablet 17.2 MG PO ×2 (07:32→17:50)
[2023-12-12] MEDS: sodium chloride 0.45% 1,000 ML 75 ML IV (09:14)
--- NOTE | 2023-12-12 09:24 | PC.CHAP ---
Pastoral Care Encounter/Spiritual Assessment Type of Contact [] Declined technical rep visit [] Patient/Family/Request visit [] Outpatient visit [] Follow-up visit [] Physician referral [] Code/Alert [x] Routine visit [] Staff referral [] Actively dying [] Patient sleeping [] Family support [] [] Out of room [] Palliative care [] [] Receiving care in room [] Pre-surgical visit [] Trauma [] Long length of stay [] ICU visit [] Other: Relational/Emotional Strength [x] Patient feels connected with others/family/visitors/staff [] Distress [] Loneliness/isolation [] Abandonment Spirituality of Patient [x] Person of Ruby [] Attends Rastafari of their Ruby [x] Believes in Prayer [] Reads Bible or Scientology materials [] There are Spiritual issues to be addressed Triage Specialist Interventions [x] Prayer [x] Active listening [] Non-anxious presence [x] Spiritual/emotional support [] Crisis/trauma care [] Spiritual counseling [] Bereavement support [] Provided bereavement packet [] Provided Bible/devotional materials [] Provided toy/stuffed animal, coloring book to patient or family member [] Provided Communion [] Anointing/[place] [] Salvation [x] Completed spiritual assessment [] Other: Impact on Illness or Injury [] Angry [] Fearful [] Anxious [] Often cries [] Exhaustion [] Unable to work [] Unable to attend confucianist [] Unable to walk/stand [] Unable to read [] Unable to drive [] Unable to eat/drink [] Unable to sleep [] Unable to be with family [] Patient intubated [] Other: Summary Time spent with patient 5 min
--- NOTE | 2023-12-12 14:25 | P.PN_ITS ---
Subjective 2 Subjective: States she feels okay. Hoping to go to skilled care soon. No new issues. Did have chest discomfort last night, but not now. Thought it was more stomach related. Has known hiatal hernia. Enzymes and EKG nonrevealing. Tums helps. Medications: Reviewed: Yes Vitals/I&O/Wt Last Vital Signs Temp 98.2 F 12/12/23 12:00 Pulse 54 L 12/12/23 12:00 Resp 17 12/12/23 12:00 BP 120/65 12/12/23 12:00 Pulse Ox 93 12/12/23 12:00 O2 Del Method Room Air 12/12/23 12:00 12/11/23 12/12/23 12/12/23 22:59 06:59 14:59 Intake Total 560 / 2475 486 / 2961 1525 / 1525 Output Total 250 / 800 250 / 1050 350 / 350 Balance 310 / 1675 236 / 1911 1175 / 1175 Weight last 48 hrs Weight 65.68 kg Weight 62.641 kg Physical Exam 2 Narrative: General exam no distress Neck is supple Cardiovascular regular rate and rhythm Lungs clear Abdomen soft Extremities no cyanosis clubbing edema Urinary Catheter Management: Lopez: Cath Placed During This Visit: yes Reason for Continuing Indwelling Catheter: Other Urinary Catheter Date of Insertion: 12/09/23 Urinary Catheter Time of Insertion: 21:02 Data 12/12/23 05:18 12/12/23 05:18 A&P Assessment and plan (1) Acute kidney injury: Acute kidney injury associated with dehydration, hyperkalemia, hypercalcemia, hypernatremia, and HAGMA Admission BUN/Cr of 96/3.4, previously 13/1.0 CT abd/pelvis negative for hydronephrosis Strict I&Os Daily weights Avoid nephrotoxins Renally dose medications Telemetry monitoring CK checked and normal Continues to have resolved. Creatinine 1.5 today BMP tomorrow (2) Altered mental status: Acute metabolic encephalopathy with uremia Treat underlying kidney injury Optimize electrolytes Treat uncontrolled blood pressure Avoid sedating medications Supportive care Ammonia was checked and normal Head CT was checked and negative This has resolved (3) Abnormal urinalysis: Urinalysis reviewed, trace LE and 1+ bacteremia Continue ceftriaxone Await culture. Unfortunately culture was not obtained. Continue antibiotics for at least 3 more days (4) Hypertension: Hypertension, uncontrolled Hold home ACEI and diuretic due to JASON Continue home Norvasc and clonidine IV hydralazine as needed Blood pressure stable currently Qualifiers: Hypertension type: essential hypertension Qualified Code(s): I10 - Essential (primary) hypertension (5) Constipation: Start bowel regimen (6) Hypothyroidism: TSH 1.07 (11/19/23) Continue Synthroid (7) Restless legs syndrome: Continue Requip Plan Elevated INR. Still significantly high. Vitamin K 10 mg p.o. given. INR markedly improved, 1.23 today DVT ppx: Heparin Code: Full Attestations 2 Medical Necessity Statement*: Needs continued hospital stay for close follow-up of abnormal renal function, hydration, antibiotics for UTI. May need placement. Diagnoses Acute kidney injury N17.9 Altered mental status R41.82 Abnormal urinalysis R82.90 Essential hypertension I10 Hypertension type: essential hypertension Constipation K59.00 Hypothyroidism E03.9 Restless legs syndrome G25.81 Time Spent (min) 26
[2023-12-12] MEDS: budesonide 0.5 mg/2 mL Neb INHALATION (19:44)
[2023-12-12] MEDS: albuterol 2.5 mg/3 mL Neb INHALATION (19:44)
[2023-12-12] MEDS: atorvastatin 40 mg Tablet PO (20:24)
[2023-12-12] MEDS: aspirin 81 mg EC Tablet PO (20:24)
[2023-12-12] MEDS: ropinirole 1 mg Tablet 0.5 MG PO (20:24)
[2023-12-12] MEDS: acetaminophen 325 mg Tablet 650 MG PO (21:28)
[2023-12-12] MEDS: cefTRIAXone 1,000 mg SDV 1000 MG IVP (23:40)
[2023-12-13] VITALS (16 sets, daily range): BP systolic 103–167; BP diastolic 59–83; PULSE 53–80; RESP 15–20; TEMP 36.8–37.1; O2SAT 93–96
[2023-12-13] MEDS: oxyCODONE 5 mg IR Tab/Cap 10 MG PO ×5 (00:41→19:43)
[2023-12-13 03:30] LABS: Basophils % 0.1 %; Eosinophils # 0.6 10^3/uL (0.0-0.8); Eosinophils % 8.2 %; Hematocrit 29.6 % (36-47); Lymphocytes # 1.7 10^3/uL (0.8-4.8); Lymphocytes % 25.1 %; Mean Corpuscular HGB Conc 31.4 g/dL (30-55); Mean Corpuscular Hemoglobin 27.9 pg (27-33); Mean Corpuscular Volume 88.9 fl (85-98); Mean Platelet Volume 12.7 fL (7.4-10.4); Monocytes # 0.5 10^3/uL (0.2-0.9); Monocytes % 7.4 %; Neutrophils # 3.97 10^3/uL (1.8-7.7); Neutrophils % 58.9 %; Nucleated Red Blood Cells % 0 %; Platelet Count 195 10^3/cmm (157-399); Red Blood Count 3.33 10^6/uL (3.85-5.65); Red Cell Distribution Width 16.4 % (12.1-15.1); White Blood Count 6.74 10^3/uL (3.29-11.43)
[2023-12-13 03:55] LABS: Blood Urea Nitrogen 41 mg/dL (8-23); Calcium 8.9 mg/dL (8.5-10.5); Carbon Dioxide 24 mmol/L (22-29); Chloride 112 mmol/L (98-107); Creatinine Clr Calc Pharmacy 31.1359; Glucose 88 mg/dL (65-115); Osmolality Calculated 308 mOsm/kg (285-295); Sodium 144 mmol/L (136-145)
[2023-12-13] MEDS: sodium chloride 0.45% 1,000 ML 50 ML IV (06:12)
[2023-12-13] MEDS: levothyroxine 75 mcg Tablet PO (06:13)
[2023-12-13] MEDS: heparin 5,000 unit/mL INJ 1 mL 5000 UNIT SUBCUT ×2 (06:13→17:34)
[2023-12-13] MEDS: lipase-protease-amylase Capsule 2 EACH PO ×3 (06:13→16:12)
[2023-12-13] MEDS: albuterol 2.5 mg/3 mL Neb INHALATION (08:45)
[2023-12-13] MEDS: budesonide 0.5 mg/2 mL Neb INHALATION ×2 (08:45→19:55)
[2023-12-13] MEDS: amlodipine 10 mg Tablet PO (09:50)
[2023-12-13] MEDS: pantoprazole DR 40 mg Tablet PO ×2 (09:50→17:33)
[2023-12-13] MEDS: cloNIDine 0.1 mg Tablet PO ×2 (09:50→17:34)
[2023-12-13] MEDS: calcium carbonate 500 mg Chew Tablet PO (13:56)
[2023-12-13] MEDS: ondansetron 2 mg/ML SDV 2 mL 4 MG IVP (13:56)
--- NOTE | 2023-12-13 14:04 | P.PN_ITS ---
Subjective 2 Subjective: I went to discuss patient potential discharge. She does not qualify for [facility] care currently. When I entered the room, she reported she felt nauseated and was having some dry heaves. She states it feels better to lay back a little bit. She was not really able to eat much for lunch, focusing mainly on liquids. She reported only having a piece of toast. Medications: Reviewed: Yes Vitals/I&O/Wt Last Vital Signs Temp 98.3 F 12/13/23 12:38 Pulse 76 12/13/23 12:38 Resp 16 12/13/23 12:38 BP 135/83 12/13/23 12:38 Pulse Ox 95 12/13/23 12:38 O2 Del Method Room Air 12/13/23 12:38 12/12/23 12/13/23 12/13/23 22:59 06:59 14:59 Intake Total 1621.25 / 3146.25 138.75 / 3285.00 459.167 / 459.167 Output Total 200 / 550 600 / 1150 Balance 1421.25 / 2596.25 -461.25 / 2135.00 459.167 / 459.167 Weight last 48 hrs Weight 66.043 kg Weight 65.68 kg Physical Exam 2 Narrative: General Exam planes of nausea Neck is supple Cardiovascular regular rate and rhythm Lungs clear Abdomen soft Extremities no cyanosis, edema, clubbing Urinary Catheter Management: Lopez: Cath Placed During This Visit: yes, but has since been removed by the nurse Reason for Continuing Indwelling Catheter: Decision to DC Catheter Urinary Catheter Date of Insertion: 12/09/23 Urinary Catheter Time of Insertion: 21:02 Date Urinary Catheter Removed: 12/13/23 Time Urinary Catheter Discontinued: 11:18 Data 12/13/23 02:31 12/13/23 02:31 A&P Assessment and plan (1) Acute kidney injury: Acute kidney injury associated with dehydration, hyperkalemia, hypercalcemia, hypernatremia, and HAGMA Admission BUN/Cr of 96/3.4, previously 13/1.0 CT abd/pelvis negative for hydronephrosis Strict I&Os Daily weights Avoid nephrotoxins Renally dose medications Telemetry monitoring CK checked and normal Continues to have resolved. BMP tomorrow Fluids been discontinued (2) Altered mental status: Acute metabolic encephalopathy with uremia Treat underlying kidney injury Optimize electrolytes Treat uncontrolled blood pressure Avoid sedating medications Supportive care Ammonia was checked and normal Head CT was checked and negative This has resolved (3) Abnormal urinalysis: Urinalysis reviewed, trace LE and 1+ bacteremia Continue ceftriaxone Await culture. Unfortunately culture was not obtained. Continue antibiotics for at least 3 more days (4) Hypertension: Hypertension, uncontrolled Hold home ACEI and diuretic due to JASON Continue home Norvasc and clonidine IV hydralazine as needed Blood pressure stable currently Qualifiers: Hypertension type: essential hypertension Qualified Code(s): I10 - Essential (primary) hypertension (5) Constipation: Start bowel regimen She is now having bowel movements (6) Hypothyroidism: TSH 1.07 (11/19/23) Continue Synthroid (7) Restless legs syndrome: Continue Requip Plan Elevated INR. Still significantly high. Vitamin K 10 mg p.o. given. INR markedly improved following this Nausea and dry heaves. Increase her Protonix to twice daily. Add Carafate. Note she has a grade 4 hiatal hernia. Small frequent meals. DVT ppx: Heparin Code: Full Appears she will likely go home with home health. Attestations 2 Medical Necessity Statement*: Needs continued hospitalization, secondary to difficulty with p.o. intake and nausea today. Hopefully discharge tomorrow. Diagnoses Acute kidney injury N17.9 Altered mental status R41.82 Abnormal urinalysis R82.90 Essential hypertension I10 Hypertension type: essential hypertension Constipation K59.00 Hypothyroidism E03.9 Restless legs syndrome G25.81 Time Spent (min) 23
[2023-12-13] MEDS: sucralfate 1 gm Tablet PO ×2 (16:12→20:20)
[2023-12-13] MEDS: sennosides 8.6 mg Tablet 17.2 MG PO (17:33)
[2023-12-13] MEDS: atorvastatin 40 mg Tablet PO (20:19)
[2023-12-13] MEDS: ropinirole 1 mg Tablet 0.5 MG PO (20:19)
[2023-12-13] MEDS: acetaminophen 325 mg Tablet 650 MG PO (20:19)
[2023-12-13] MEDS: aspirin 81 mg EC Tablet PO (20:20)
[2023-12-13] MEDS: hyDROXYzine 25 mg Capsule PO (22:15)
[2023-12-13] MEDS: cefTRIAXone 1,000 mg SDV 1000 MG IVP (22:18)
[2023-12-14] VITALS (10 sets, daily range): BP systolic 138–160; BP diastolic 66–75; PULSE 65–76; RESP 15–17; TEMP 36.4–36.9; O2SAT 94–95
[2023-12-14] MEDS: oxyCODONE 5 mg IR Tab/Cap 10 MG PO ×2 (04:16→09:36)
[2023-12-14] MEDS: levothyroxine 75 mcg Tablet PO (05:02)
[2023-12-14] MEDS: heparin 5,000 unit/mL INJ 1 mL 5000 UNIT SUBCUT (05:02)
[2023-12-14 05:27] LABS: Basophils % 0.5 %; Eosinophils # 0.6 10^3/uL (0.0-0.8); Hematocrit 31.3 % (36-47); Lymphocytes # 1.6 10^3/uL (0.8-4.8); Lymphocytes % 26.8 %; Mean Corpuscular HGB Conc 31.3 g/dL (30-55); Mean Corpuscular Hemoglobin 28.1 pg (27-33); Mean Corpuscular Volume 89.7 fl (85-98); Mean Platelet Volume 13.1 fL (7.4-10.4); Monocytes # 0.4 10^3/uL (0.2-0.9); Monocytes % 6.9 %; Neutrophils # 3.38 10^3/uL (1.8-7.7); Neutrophils % 55.6 %; Nucleated Red Blood Cells % 0 %; Platelet Count 196 10^3/cmm (157-399); Red Blood Count 3.49 10^6/uL (3.85-5.65); Red Cell Distribution Width 16.7 % (12.1-15.1); White Blood Count 6.08 10^3/uL (3.29-11.43)
[2023-12-14 05:51] LABS: Blood Urea Nitrogen 25 mg/dL (8-23); Calcium 9.5 mg/dL (8.5-10.5); Carbon Dioxide 26 mmol/L (22-29); Chloride 107 mmol/L (98-107); Creatinine Clr Calc Pharmacy 33.2165; Glucose 93 mg/dL (65-115); Osmolality Calculated 296 mOsm/kg (285-295); Sodium 141 mmol/L (136-145)
[2023-12-14 05:53] LABS: Anion Gap 11.4 (5-19); Potassium 3.4 mmol/L (3.5-5.1)
[2023-12-14] MEDS: sucralfate 1 gm Tablet PO ×2 (06:14→11:11)
[2023-12-14] MEDS: potassium chloride oral liq 20 mEq/15 mL UDC 40 MEQ PO (07:29)
[2023-12-14] MEDS: budesonide 0.5 mg/2 mL Neb INHALATION (07:45)
[2023-12-14] MEDS: albuterol 2.5 mg/3 mL Neb INHALATION (07:45)
[2023-12-14] MEDS: lipase-protease-amylase Capsule 2 EACH PO (08:05)
[2023-12-14] MEDS: pantoprazole DR 40 mg Tablet PO (08:06)
[2023-12-14] MEDS: cloNIDine 0.1 mg Tablet PO (08:06)
[2023-12-14] MEDS: amlodipine 10 mg Tablet PO (08:06)
[2023-12-14] MEDS: sennosides 8.6 mg Tablet 17.2 MG PO (08:06)
--- NOTE | 2023-12-14 08:32 | PM.DCS ---
Discharge Providers Date of Admission: 12/11/23 13:48 Date of Discharge: December 14, 2023 Attending Provider at Admission: Burt Bowden MD Attending Provider at Discharge: Alessandro Bowie MD Primary Care Provider: Jannet Cisse MD Diagnoses at Discharge Discharge Diagnosis (1) Acute kidney injury: Status: Acute (2) Altered mental status: Status: Acute (3) Abnormal urinalysis: Status: Acute (4) Hypertension: Status: Chronic Qualifiers: Hypertension type: essential hypertension Qualified Code(s): I10 - Essential (primary) hypertension (5) Constipation: Status: Acute (6) Hypothyroidism: Status: Acute (7) Restless legs syndrome: Status: Chronic Reason for Visit Reason for Visit: weakness Hospital Course Hospital Course Patient presented to the hospital on December 08, with significant acute kidney injury. She had recently been discharged from the longterm. There was concern of UTI on admission and Rocephin was initiated. Initial lab included elevated sodium, elevated potassium, BUN of 96 and creatinine of 3.4. MIHIR inhibitor was discontinued. Acute encephalopathy was present on admission. Throughout her hospital stay she had gradual improvement of her renal function. She received therapy secondary to severe weakness. She was still significantly encephalopathic on day 2, but this improved by day 3 and 4. By December 13 it was thought she could discharge home. Renal function was much improved at that time, she was alert and oriented. She had had some reflux symptoms attributed to her large hiatal hernia for which Carafate was added and Protonix dose was increased with good effect. She will go home with home health. Family is looking into getting her into assisted living. Nursing facility placement was attempted but she did not qualify. She was given an opportunity to ask questions and agreed with the plan. Physical Exam Narrative: General Exam no distress Neck is supple Cardiovascular regular rate and rhythm with a 2/6 systolic murmur Lungs clear Abdomen soft Extremities no cyanosis clubbing edema Urinary Catheter Management: Lopez: Cath Placed During This Visit: yes, but has since been removed by the nurse Reason for Continuing Indwelling Catheter: Decision to DC Catheter Urinary Catheter Date of Insertion: 12/09/23 Urinary Catheter Time of Insertion: 21:02 Date Urinary Catheter Removed: 12/13/23 Time Urinary Catheter Discontinued: 11:18 Discharge Data Studies Completed and Pending Completed Studies During Hospitalization Category Date Time Status CT head wo con* [id number] Stat Cat Scan 12/09/23 18:[address] kidney stone [id number] Stat Cat Scan 12/09/23 21:14 Completed XR chest 1V portable [id number] Stat Exams 12/09/23 18:34 Completed Pending at discharge Category Date Time Status Vitamin K Routine Lab 12/11/23 10:36 Stop Req Radiology Impressions Chest X-Ray 12/09/23 18:34 IMPRESSION: 1. No definite acute cardiopulmonary findings. 2. Large hiatal hernia. Head CT 12/09/23 18:34 IMPRESSION: No acute intracranial findings. Abdomen/Pelvis CT 12/09/23 21:14 IMPRESSION: 1. Moderately large rectal stool ball could represent impacted fecal material. Mild circumferential rectal wall thickening may represent mild/early stercoral colitis. 2. Decompressed urinary bladder with a Lopez catheter in place. 3. Mild gaseous prominence of multiple colonic bowel loops, including in the sigmoid colon, nonspecific. No evidence of bowel obstruction. 4. Large type 4 hiatal hernia containing the majority of the stomach as well as portions of the pancreas. Laboratory Results WBC 6.08 10^3/uL (3.29-11.43) 12/14/23 04:28 RBC 3.49 10^6/uL (3.85-5.65) L 12/14/23 04:28 Hgb 9.80 g/dL (11.27-16.99) L 12/14/23 04:28 Hct 31.3 % (36-47) L 12/14/23 04:28 MCV 89.7 fl (85-98) 12/14/23 04:28 MCH 28.1 pg (27-33) 12/14/23 04:28 MCHC 31.3 g/dL (30-55) 12/14/23 04:28 RDW 16.7 % (12.1-15.1) H 12/14/23 04:28 Plt Count 196 10^3/cmm (157-399) 12/14/23 04:28 MPV 13.1 fL (7.4-10.4) H 12/14/23 04:28 Neut % (Auto) 55.6 % 12/14/23 04:28 Lymph % (Auto) 26.8 % 12/14/23 04:28 [place] % (Auto) 6.9 % 12/14/23 04:28 Eos % (Auto) 10.0 % 12/14/23 04:28 Baso % (Auto) 0.5 % 12/14/23 04:28 Neut # (Auto) 3.38 10^3/uL (1.8-7.7) 12/14/23 04:28 Lymph # (Auto) 1.6 10^3/uL (0.8-4.8) 12/14/23 04:28 [place] # (Auto) 0.4 10^3/uL (0.2-0.9) 12/14/23 04:28 Eos # (Auto) 0.6 10^3/uL (0.0-0.8) 12/14/23 04:28 Baso # (Auto) 0.0 10^3/uL (0.0-0.1) 12/14/23 04:28 Nucleated RBC % (auto) 0 % 12/14/23 04:28 Nucleated RBCs # 0.0 /100WBC 12/14/23 04:28 PT 15.90 SECONDS (12.1-14.9) H 12/12/23 05:18 INR 1.23 (0.8-1.2) H 12/12/23 05:18 Sodium 141 mmol/L (136-145) 12/14/23 04:28 Potassium 3.4 mmol/L (3.5-5.1) L 12/14/23 04:28 Chloride 107 mmol/L (98-107) 12/14/23 04:28 Carbon Dioxide 26 mmol/L (22-29) 12/14/23 04:28 Anion Gap 11.4 (5-19) 12/14/23 04:28 BUN 25 mg/dL (8-23) H 12/14/23 04:28 Creatinine 1.2 mg/dL (0.5-0.9) H 12/14/23 04:28 GFR Calculation Not Reportable 12/14/23 04:28 Glucose 93 mg/dL (65-115) 12/14/23 04:28 POC Glucose 86 mg/dL (70-110) 12/10/23 00:27 Calculated Osmolality 296 mOsm/kg (285-295) H 12/14/23 04:28 Lactic Acid 1.5 mmol/L (0.5-2.2) 12/09/23 19:56 Calcium 9.5 mg/dL (8.5-10.5) 12/14/23 04:28 Phosphorus 3.9 mg/dL (2.5-4.5) 12/10/23 05:05 Magnesium 1.6 mg/dL (1.7-2.3) L 12/11/23 04:56 Total Bilirubin 0.6 mg/dL (0.15-1.2) 12/11/23 04:56 AST 28 U/L (0-32) 12/11/23 04:56 ALT 19 U/L (0-33) 12/11/23 04:56 Alkaline Phosphatase 62 U/L (35-105) 12/11/23 04:56 Ammonia 39 umol/L (11-51) 12/10/23 08:52 Creatine Kinase 99 U/L (26-192) 12/10/23 05:05 Troponin T Baseline 43 ng/L (0-10) H 12/11/23 22:57 Troponin T 120 Minute 39.87 ng/L (0-10) H 12/12/23 01:25 Delta Troponin T -3.13 ABS# (0-10) L 12/12/23 01:25 Troponin T Hi Sens 6Hr 40.55 ng/L (0-10) H 12/12/23 05:18 Troponin T Hi Sens 6Hr Delta -2.45 ng/L (0-12) L 12/12/23 05:18 C-Reactive Protein 54.6 mg/L (0.0-4.9) H 12/09/23 19:56 Total Protein 5.2 g/dL (6.6-8.7) L 12/11/23 04:56 Albumin 2.8 g/dL (3.5-5.2) L 12/11/23 04:56 Globulin 2.4 g/dL (1.3-4.6) 12/11/23 04:56 Lipase 26 U/L (13-60) 12/09/23 19:56 Urine Color Yellow (Yellow) 12/09/23 20:57 Urine Appearance Clear (CLEAR) 12/09/23 20:57 Urine pH 5 (5-7) 12/09/23 20:57 Ur Specific [place] 1.020 (1.005-1.030) 12/09/23 20:57 Urine Protein Trace (Negative) 12/09/23 20:57 Urine Glucose (UA) Norm (Normal) 12/09/23 20:57 Urine Ketones Negative (Negative) 12/09/23 20:57 Urine Blood Neg (Negative) 12/09/23 20:57 Urine Nitrate Negative (Negative) 12/09/23 20:57 Urine Bilirubin 1+ (Negative) H 12/09/23 20:57 Urine Urobilinogen Norm mg/dL (Negative) 12/09/23 20:57 Ur Leukocyte Esterase Trace (Negative) H 12/09/23 20:57 Urine RBC 0-4 /hpf (0-2) H 12/09/23 20:57 Urine WBC Rare /hpf (0-5) 12/09/23 20:57 Ur Squamous Epith Cells 0-4 /hpf (0-5) H 12/09/23 20:57 Amorphous Sediment Not Reportable 12/09/23 20:57 Urine Bacteria 1+ /hpf (NONE) H 12/09/23 20:57 Ur Random Sodium 32 mmol/L 12/09/23 23:22 Ur Random Potassium 80 mmol/L 12/09/23 23:22 Ur Random Chloride 38 mmol/L 12/09/23 23:22 Vitals Last Vital Signs Temp 98.2 F 12/14/23 08:02 Pulse 72 12/14/23 07:57 Resp 16 12/14/23 07:46 BP 143/72 12/14/23 08:06 Pulse Ox 94 12/14/23 07:46 O2 Del Method Room Air 12/14/23 07:46 Discharge Plan Discharge Patient Disposition: Home Health Service Condition: Stable Prescriptions: New sucralfate 1 gram Tablet 1 g PO AC&BEDTIME Qty: 120 0RF pantoprazole 40 mg Tablet,Delayed Release (Dr/Ec) 40 mg PO BID Qty: 60 0RF sennosides [senna] 8.6 mg Tablet 17.2 mg PO BID Qty: 60 0RF Continued diclofenac sodium [Voltaren Arthritis Pain] 1 % gel 2 g topical QID PRN (Reason: Pain) Qty: 100 0RF (DME) 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 See Rx Instructions .Route .MEDSUPPLY Qty: 1 0RF Rx Instructions: As directed by HOME Zenpep 40,000-126,000- 168,000 unit capsule,delayed release(DR/EC) 2 cap PO .qa Qty: 180 8RF Rx Instructions: administer with meals and/or snacks ferrous gluconate 324 mg (37.5 mg iron) tablet 324 mg PO BID Qty: 90 3RF cyanocobalamin (vitamin B-12) [Vitamin B-12] 1,000 mcg Tablet 1,000 mcg PO DAILY Calcium 600 with Vitamin D3 600 mg(1,500mg) -400 unit Tablet,Chewable 1 tab PO DAILY multivitamin 1 tab PO DAILY atorvastatin 40 mg tablet 40 mg PO BEDTIME Rx Instructions: TAKE ONE TABLET BY MOUTH ONCE DAILY levothyroxine 75 mcg tablet 75 mcg PO DAILY Rx Instructions: TAKE 1 TABLET BY MOUTH DAILY albuterol sulfate 90 mcg/actuation HFA aerosol inhaler 2 puff inhalation Q6H PRN (Reason: Shortness Of Breath Or Wheezing) Rx Instructions: USE 2 INHALATIONS BY MOUTH EVERY 6 HOURS NEEDED FOR WHEEZING OR SHORTNESS OF BREATH Symbicort 160-4.5 mcg/actuation HFA aerosol inhaler 2 puff INHALATION BID ropinirole 1 mg tablet 0.5 mg PO BEDTIME aspirin 81 mg tablet,delayed release (DR/EC) 81 mg PO BEDTIME oxycodone 10 mg tablet 10 - 20 mg PO Q4H PRN (Reason: Pain, Moderate) Rx Instructions: TAKE 1 TO 2 TABLETS BY MOUTH EVERY 4 TO 6 HOURS NEEDED FOR PAIN max 6 PER day amlodipine 5 mg tablet 10 mg PO DAILY Qty: 100 3RF clonidine HCl 0.1 mg tablet 0.1 mg PO BID 30 Days Qty: 60 0RF Discontinued triamterene-hydrochlorothiazid 37.5-25 mg tablet 1 tab PO DAILY Qty: 90 1RF potassium chloride 20 mEq tablet,ER particles/crystals 20 meq PO DAILY Rx Instructions: TAKE 1 TABLET BY MOUTH DAILY mirtazapine 30 mg tablet 30 mg PO BEDTIME famotidine 40 mg tablet 40 mg PO DAILY pantoprazole 40 mg tablet,delayed release (DR/EC) 40 mg PO DAILY lisinopril 40 mg tablet 40 mg PO 0700,0300 pregabalin [Lyrica] 225 mg capsule 225 mg PO BEDTIME Discharge Orders: Discharge Order (Routine); Ordered 12/14/23 Ordered By: Alessandro Bowie Referrals: [facility] ([facility]) [Outside] Jannet Cisse MD [Primary Care Provider] - 4-7 days (BMP and CBC on follow-up) Discharge Diet: Cardiac Discharge Activity: Increase activity as tolerated Patient Instructions: Opioid Safety Activity Restrictions/Additional Instructions: Take all medicine as prescribed Follow-up with primary care provider 3 to 5 days BMP and CBC on follow-up Avoid all anti-inflammatories Fall risk precautions Encourage fluids Home health on discharge Note multiple medications that were stopped to reduce risk of falls, altered mental status, worsening renal function Discharge Attestations Time Spent in Discharge Care*: greater than 30 min Quality Metrics Clinical Quality Measures [ No reported AMI, CVA or VTE this stay] Coding Level of Care Code 31945 Total time (in minutes) for Discharge: 43 Diagnoses Acute kidney injury N17.9 Altered mental status R41.82 Abnormal urinalysis R82.90 Essential hypertension I10 Hypertension type: essential hypertension Constipation K59.00 Hypothyroidism E03.9 Restless legs syndrome G25.81
[2023-12-14] MEDS: calcium carbonate 500 mg Chew Tablet PO (09:42)
--- NOTE | 2023-12-14 11:49 | PC.SOCIAL ---
IMM Updated Updated pt on IMM. No questions voiced. Provided pt a copy. Initialed, dated, & timed a copy & placed in chart.
--- NOTE | 2023-12-14 11:50 | PC.NURSE ---
Patient's brother at the nurses station asking this nurse if there is anyway to keep patient here as he does not feel like she would be safe at home. Patient brother states, I mean she can go home but this going to happen again and she will end up back here. She is liable to accidentally kill herself. I means this last time she didn't eat or drink for atleast 24 hours before someone from [facility] found her. Explained to patient's brother that aids social worker and Dr. Bowie have tried absolutely everything to get her placed and her insurance has declined. Updated patient brother that patient could private pay or they could pay for someone to stay with her. Patient's brother states that patient can not afford to pay and he feels like she is might kill herself at home. Patient's brother would like to speak to aids social worker and/or the doctor again. Dr. Bowie and Neville in aids social worker notified.
--- NOTE | 2023-12-14 11:58 | PC.NURSE ---
Azeb Humphreys and Swapna DONAHUE at bedside to speak with patient and family.
--- NOTE | 2023-12-14 12:15 | PC.NURSE ---
Pt completes discharge education, all questions answered. IV out. Family asks if there is anyway to keep her in the psych unit. This RN explains criteria for NPU unit. Brother states, we cannot send her home. RN escalates situation to management. RN asks pt if she is suicidal, pt states that she is depressed, but not suicidal. Pt denies having thoughts of suicide and denies plan. Dr. Bowie notified.
[2023-12-15 19:09] LABS: Vitamin K 64 pg/mL (130-1500)
== END 2023-12-14 13:00 | disposition home health service (06) | DRG 682 ==
LOC: ER 20:37 → MEDSURG 22:00
PROVIDERS: Family Medicine; Admitting Provider Internal Medicine; Emergency Provider Emergency Medicine; PCP Family Medicine; Visit Provider Internal Medicine
DX: N17.9 Acute kidney failure, unspecified (principal); G93.41 Metabolic encephalopathy; G89.29 Other chronic pain; I10 Essential (primary) hypertension; E03.9 Hypothyroidism, unspecified; M19.90 Unspecified osteoarthritis, unspecified site; G25.81 Restless legs syndrome; K59.00 Constipation, unspecified; E78.5 Hyperlipidemia, unspecified; Z79.899 Other long term (current) drug therapy; Z79.890 Hormone replacement therapy; Z79.82 Long term (current) use of aspirin; Z86.16 Personal history of COVID-19; I25.2 Old myocardial infarction; Z87.440 Personal history of urinary (tract) infections; Z90.710 Acquired absence of both cervix and uterus; Z87.891 Personal history of nicotine dependence
CPT/HCPCS: 36415; 36416; 51702; 70450; 71045; 74176; 80048; 80053; 81001; 82140; 82436; 82550; 82962; 83605; 83690; 83735; 84100; 84133; 84300; 84484; 84597; 85025; 85610; 86140; 90471; 90732; 93005; 94640; 96372; 96374; 97116; 97161; 97165; 97530; 99285; G0378; J0696; J1644; J2405; J3430; J3475; J3490; J7030; J7070; J7613; J7626

== ENCOUNTER → 2023-12-31 14:36 | Outpatient (BNVA) | payer MEDICARE, SELFPAY | PROVIDERS: PCP Family Medicine; Visit Provider Family Medicine | DX: Z79.891 Long term (current) use of opiate analgesic (principal); I10 Essential (primary) hypertension; I25.118 Atherosclerotic heart disease of native coronary artery with other forms of angina pectoris; M81.0 Age-related osteoporosis without current pathological fracture; E03.9 Hypothyroidism, unspecified; K59.00 Constipation, unspecified; K44.9 Diaphragmatic hernia without obstruction or gangrene; D50.9 Iron deficiency anemia, unspecified; N28.9 Disorder of kidney and ureter, unspecified; U07.1 COVID-19 | CPT/HCPCS: 80053; 82306; 82607; 83550; 84439; 84443; 85025 ==

== ENCOUNTER 2024-01-04 19:00 | Observation (INO) | payer MEDICARE, SELFPAY ==
[2024-01-04 19:26] VITALS: BP 177/87; PULSE 73; RESP 16; TEMP 36.6; O2SAT 91
--- NOTE | 2024-01-04 19:35 | ECG_ITS ---
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 Measurements Intervals [place] Rate: 67 P: 37 NV: 180 QRS: -60 QRSD: 136 T: 17 QT: 451 QTc: 477 Interpretive Statements SINUS RHYTHM RIGHT BUNDLE BRANCH BLOCK [120+ ms QRS DURATION, UPRIGHT V1, 40+ ms S IN I/aVL/V4/V5/V6] LEFT ANTERIOR FASCICULAR BLOCK [QRS AXIS <= -45, QR IN I, RS IN II] VOLTAGE CRITERIA FOR LVH [MEETS CRITERIA IN ONE OF: R(aVL), S(V1), R(V5), R(V5/V6)+S(V1)] PROBABLE ANTEROLATERAL MYOCARDIAL INFARCTION , OF INDETERMINATE AGE [35 ms Q WAVE IN I/aVL/V3-V6] Compared to ECG 12/12/2023 04:35:02 Left anterior fascicular block now present Sinus bradycardia no longer present Myocardial infarct finding still present Electronically Signed On 01-04-2024 22:33:33 CDT by Philly Mijares M.D. [email or web address]
--- NOTE | 2024-01-04 19:35 | XRR_ITS ---
PROCEDURE INFORMATION: Exam: XR Chest Exam date and time: 01/04/2024 7:38 PM Age: 78 years old Clinical indication: Pain; Chest pressure and radiating; Additional info: Left shoulder pain, SOB TECHNIQUE: Imaging protocol: Radiologic exam of the chest. Views: 1 view. COMPARISON: CR (CHEST, ) 12/09/2023 6:42 PM FINDINGS: Lungs: Lungs are clear bilaterally. Pleural spaces: No pleural effusion. No pneumothorax. Heart/Mediastinum: Stable marked enlargement of the cardiac silhouette. Mediastinal contours are unremarkable. Stable large hiatal hernia. Vasculature: Stable vascular calcifications in the aorta. Stable tortuosity of the aorta. Bones/joints: Bones are diffusely osteopenic. Degenerative changes in the spine and shoulders. Mild scoliosis in the visualized spine. Patient has had a prior mandibular fracture repair. Osseous findings are stable. XR/XR chest 1V portable [id number] IMPRESSION: 1. No acute cardiopulmonary process. 2. Stable large hiatal hernia. 3. Incidental/nonacute findings are listed in the report.
--- NOTE | 2024-01-04 19:37 | ED_ITS ---
HPI - Extremity Problem 2 General: Chief complaint: Extremity Injury, Upper Stated complaint: SHOULDER PAIN Time Seen by Provider: 01/04/24 19:21 Source: patient Mode of arrival: EMS Limitations: no limitations History of Present Illness: Patient is a 78-year-old female who presents to the emergency department from shelter for acute onset left shoulder pain, nontraumatic, 2 hours prior to arrival. She states that the pain is still present, noting associated shortness of breath and dizziness. She reports she has a history of a heart attack in the past, and did have left and right shoulder pain then. She states she took an oxycodone at home that has not touched her pain, also was giving something by EMS and is still having pain at this time. Denying any jaw pain or radiating left arm pain distally. Denying any abdominal pain, back pain, peripheral edema, cough, fevers, or other symptoms. She does not use oxygen regularly. Currently at this time 91 to 93% on room air, rest of her vitals essentially unremarkable. MD Complaint: joint pain (Left shoulder) Onset (ago): hour(s) (2) Pain Consistency: constant Location: left and upper extremity Radiation: none Associated symptoms: Deny chest pain, fever(s) or rash Related Data Home Medications Medication Instructions Recorded Confirmed calcium 600 mg (as carbonate)-vit 1 tab PO DAILY 03/28/19 01/02/24 D3 10 mcg (400 unit) chewable tablet (Calcium 600 with Vitamin D3) cyanocobalamin (vitamin B-12) 1,000 mcg PO DAILY 03/28/19 01/02/24 1,000 mcg tablet (Vitamin B-12) multivitamin 1 tab PO DAILY 03/28/19 01/02/24 albuterol sulfate 90 mcg/actuation 2 puff inhalation Q6H PRN 07/24/22 01/02/24 aerosol inhaler Shortness Of Breath Or Wheezing atorvastatin 40 mg tablet 40 mg PO BEDTIME 07/24/22 01/02/24 levothyroxine 75 mcg tablet 75 mcg PO DAILY 07/24/22 01/02/24 oxycodone 10 mg tablet 10 - 20 mg PO Q4H PRN Pain, 11/19/23 01/02/24 Moderate ropinirole 1 mg tablet 0.5 mg PO BEDTIME 11/19/23 01/02/24 budesonide-formoterol HFA 160 2 puff inhalation BID 12/09/23 01/02/24 mcg-4.5 mcg/actuation aerosol inhaler (Symbicort) peg 400 0.4 %-propylene glycol 1 drp ophthalmic (eye) BID PRN 12/31/23 01/02/24 (PF) 0.3 % eye drops (Systane Hydration (PF)) Previous Rx's Medication Instructions Recorded tivnjv-aqttkdme-ibfqazr 2 cap PO .qac #180 caps 06/27/21 40,000-126,000-168,000 unit capsule, delay rel (Zenpep) Budin Hammer Toe Catering 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 Chef #1 ea 10/03/22 diclofenac sodium 1 % topical gel 2 g topical QID PRN Pain #100 grams 01/03/23 (Voltaren Arthritis Pain) amlodipine 5 mg tablet 10 mg (2 x 5 mg) PO DAILY #100 tabs 11/23/23 pantoprazole 40 mg tablet,delayed 40 mg PO BID #60 tabs 12/14/23 release sennosides 8.6 mg tablet (senna) 17.2 mg (2 x 8.6 mg) PO BID #60 12/14/23 tabs sucralfate 1 gram tablet 1 g PO AC&BEDTIME #120 tabs 12/14/23 polyethylene glycol 3350 17 gram 17 g PO DAILY constipation #510 ea 12/31/23 oral powder packet sertraline 25 mg tablet 25 mg PO DAILY #100 tabs 12/31/23 Allergies Allergy/AdvReac Type Severity Reaction Status Date / Time No Known Allergies Allergy Verified 01/04/24 19:29 Review of Systems 2 General: Reports: 10 or more systems reviewed and unremarkable except in HPI and below Const: Denies: fever(s), chills or fatigue Eyes: Denies: change in vision ENMT: Denies: throat pain, ear or mastoid pain or nasal discharge Card: Denies: chest pain, palpitations, swelling of feet/ankles or lightheadedness Resp: Reports: dyspnea; Denies: productive cough or wheezing GI: Denies: abdominal pain, nausea, vomiting, diarrhea or constipation : Denies: flank pain, difficulty voiding, dysuria or urinary frequency Musc: Reports: joint pain (Left shoulder); Denies: neck pain or back pain Skin/Breast: Denies: rash Neuro: Reports: dizziness; Denies: headache(s), numbness in extremities or weakness in extremities PFSH ED 2 PFSH: Medical History Anemia of unknown etiology Depression, major Constipation 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 on CT 12/17 Large hiatal hernia Exocrine pancreatic insufficiency Renal insufficiency Hiatal hernia with GERD Hypothyroidism Enrolled in chronic care management Right knee DJD Osteoporosis Greater trochanteric bursitis Diarrhea Urinary retention Atherosclerotic heart disease of [place] coronary artery with other forms of angina pectoris Abnormal cardiovascular stress test NSTEMI (non-ST elevated myocardial infarction) Hyperlipidemia Hypertension Urgency incontinence Past heart attack Long-term current use of opiate analgesic Pain management contract signed Restless legs syndrome Fibromyalgia Chronic low back pain Dr. Benavidez Rxes pain meds Surgical History History of mandibular surgery R jaw--has titanium plate; done for tumor--benign History of bowel resection benign growth H/O ileostomy Hx of appendectomy (~1973) Hx of hysterectomy (~1973) still has ovaries; had hyst due to bleeding; no cancer History of reversal of ileostomy Hx of tubal ligation Hx of foot surgery (~11/2013) RIGHT FOOT Family History Brother , BONE METS Cancer COLON CANCER Mother Heart disease Family history of thyroid problem Grandmother Heart disease Father Hyperlipidemia Bone cancer Social History Smoking and tobacco/nicotine status: former use of tobacco/nicotine Quit status (tobacco/nicotine): has quit using Year quit tobacco: quit 1989 Second hand smoke exposure: No Alcohol intake: never Substance/Drug Use: never Lives independently: Yes Household members: none Marital status: / Number of children: 3 Highest education level completed: Some College, No Degree Current occupational status: retired 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 Physical Exam 2 Const: COMMON NORMALS: no acute distress, patient oriented x3 and no limitations GENERAL APPEARANCE: cooperative, comfortable and well developed ORIENTATION/CONSCIOUSNESS: Yes awake, Yes oriented to person, Yes oriented to place and Yes oriented to time HENMT: COMMON NORMALS: normocephalic, atraumatic and hearing grossly normal bilaterally HEAD & SCALP: normocephalic and atraumatic Eye: COMMON NORMALS: Equal, round and reactive pupils present, EOMs intact bilaterally and conjunctivae normal CONJUNCTIVA: Yes conjunctivae normal P UPIL: Yes Equal, round and reactive pupils present Neck/C-Spine: COMMON NORMALS: full ROM, supple and no JVD Resp: COMMON NORMALS: normal respiratory effort, No retractions, No use of accessory muscles and clear to auscultation bilaterally AUSCULTATION: clear to auscultation bilaterally Cardio: COMMON NORMALS: no JVD, regular rate, regular rhythm, No clicks present (Cardio) and No rub (Cardio) RATE: regular rate RHYTHM: regular rhythm HEART SOUNDS: Murmur heart sound present systolic Intensity: III/ GI: COMMON NORMALS: Normal to inspection, nondistended, normoactive bowel sounds present, Soft to palpation and non-tender AUSCULTATION: Yes normoactive bowel sounds PALPATION: Yes Soft to palpation RECTAL EXAM: d eferred Extremity: COMMON NORMALS: normal to inspection, full ROM and capillary refill normal NARRATIVE EXTREMITY EXAM: No significant reproducible tenderness to palpation. No signs of trauma. Neuro: COMMON NORMALS: patient oriented x3, moves all extremities, no focal motor deficits and no sensory deficits noted SENSORIUM/ORIENTATION: Yes oriented to person, Yes oriented to place and Yes oriented to time Psych: COMMON NORMALS: mental status grossly normal and Normal thought process present THOUGHT PROCESS: Normal thought process present Skin: COMMON NORMALS: no rashes or lesions noted GENERAL SKIN EXAM: no rashes or lesions noted Course 2 Vital Signs: Vital signs: Vital Signs Temperature 98 F 01/04/24 19:26 Pulse Rate 73 01/04/24 19:26 Respiratory Rate 16 01/04/24 19:26 Blood Pressure 177/87 01/04/24 19:26 Pulse Oximetry 91 01/04/24 19:26 Oxygen Delivery Me thod Room Air 01/04/24 19:26 MDM - Extremity (Nontraumatic) Medical Decision Making Patient presented from shelter for acute onset left shoulder pain a couple of hours prior to arrival. She did report a history to me of a heart attack, due to the atraumatic nature did work her up for ACS. EKG did show some new ST segment depression, this was reviewed with Dr. Centeno here in the emergency department, and subsequently reviewed with Dr. Mijares. Troponin elevated here, this does appear to be baseline for her as her troponin chronically elevated. Her 2-hour troponin not show any trend, and Dr. Mijares had stated that with the normal troponins unlikely that she is currently having NSTEMI. Also of note with her lab work, potassium was found to be 2.6, and upon further questioning she states she has been more weak than usual lately. We gave her 40 mill equivalents by mouth as well as potassium chloride K rider, and upon recheck of BMP 2 hours later potassium was only 2.7. Magnesium was also low. A chest x- ray did not demonstrate any findings for her shoulder pain, unknown what is causing this though etiology includes an anginal equivalent versus musculoskeletal. Spoke with Dr. Darby, who agrees to see the patient in the hospital for potassium correction. Also spoke with Dr. Centeno in regards to this patient's case multiple times, agrees with disposition and is placing admit orders at this time. Lab Data 01/04/24 19:47 01/04/24 21:45 Radiology Impressions Chest X-Ray 01/04/24 19:35 IMPRESSION: 1. No acute cardiopulmonary process. 2. Stable large hiatal hernia. 3. Incidental/nonacute findings are listed in the report. Laboratory Results WBC 9.41 10^3/uL (3.29-11.43) 01/04/24 19:47 RBC 4.71 10^6/uL (3.85-5.65) 01/04/24 19:47 Hgb 13.20 g/dL (11.27-16.99) 01/04/24 19:47 Hct 41.1 % (36-47) 01/04/24 19:47 MCV 87.3 fl (85-98) 01/04/24 19:47 MCH 28.0 pg (27-33) 01/04/24 19:47 MCHC 32.1 g/dL (30-55) 01/04/24 19:47 RDW 16.0 % (12.1-15.1) H 01/04/24 19:47 Plt Count 316 10^3/cmm (157-399) 01/04/24 19:47 MPV 9.7 fL (7.4-10.4) 01/04/24 19:47 Neut % (Auto) 67.3 % 01/04/24 19:47 Lymph % (Auto) 20.9 % 01/04/24 19:47 [place] % (Auto) 8.4 % 01/04/24 19:47 Eos % (Auto) 2.9 % 01/04/24 19:47 Baso % (Auto) 0.3 % 01/04/24 19:47 Neut # (Auto) 6.33 10^3/uL (1.8-7.7) 01/04/24 19:47 Lymph # (Auto) 2.0 10^3/uL (0.8-4.8) 01/04/24 19:47 [place] # (Auto) 0.8 10^3/uL (0.2-0.9) 01/04/24 19:47 Eos # (Auto) 0.3 10^3/uL (0.0-0.8) 01/04/24 19:47 Baso # (Auto) 0.0 10^3/uL (0.0-0.1) 01/04/24 19:47 Nucleated RBC % (auto) 0 % 01/04/24 19:47 Nucleated RBCs # 0.0 /100WBC 01/04/24 19:47 Sodium 139 mmol/L (136-145) 01/04/24 21:45 Potassium 2.7 mmol/L (3.5-5.1) L* 01/04/24 21:45 Chloride 95 mmol/L (98-107) L 01/04/24 21:45 Carbon Dioxide 33 mmol/L (22-29) H 01/04/24 21:45 Anion Gap 13.7 (5-19) 01/04/24 21:45 BUN 9 mg/dL (8-23) 01/04/24 21:45 Creatinine 1.1 mg/dL (0.5-0.9) H 01/04/24 21:45 GFR Calculation Not Reportable 01/04/24 21:45 Glucose 117 mg/dL (65-115) H 01/04/24 21:45 Calculated Osmolality 288 mOsm/kg (285-295) 01/04/24 21:45 Calcium 9.7 mg/dL (8.5-10.5) 01/04/24 21:45 Magnesium 1.5 mg/dL (1.7-2.3) L 01/04/24 19:07 Total Bilirubin 1.4 mg/dL (0.15-1.2) H 01/04/24 19:47 AST 19 U/L (0-32) 01/04/24 19:47 ALT 10 U/L (0-33) 01/04/24 19:47 Alkaline Phosphatase 70 U/L (35-105) 01/04/24 19:47 Troponin T Baseline 44 ng/L (0-10) H 01/04/24 19:47 Troponin T 120 Minute 44.55 ng/L (0-10) H 01/04/24 21:45 Delta Troponin T 0.55 ABS# (0-10) 01/04/24 21:45 NT-Pro-B Natriuret Pep 428 pg/mL (0-450) 01/04/24 19:47 Total Protein 6.0 g/dL (6.6-8.7) L 01/04/24 19:47 Albumin 3.9 g/dL (3.5-5.2) 01/04/24 19:47 Globulin 2.1 g/dL (1.3-4.6) 01/04/24 19:47 All radiology interpretation(s) finalized by discharge Discharge Plan Discharge Patient Disposition: Admitted As Inpatient Clinical Impression: Hypokalemia Left shoulder pain Qualifiers: Chronicity: acute Qualified Code(s): M25.512 - Pain in left shoulder Condition: Stable Coding Level of Care Code ED Vest Finisher for Gemma Church
[2024-01-04 19:53] LABS: Basophils % 0.3 %; Eosinophils # 0.3 10^3/uL (0.0-0.8); Eosinophils % 2.9 %; Hematocrit 41.1 % (36-47); Lymphocytes % 20.9 %; Mean Corpuscular HGB Conc 32.1 g/dL (30-55); Mean Corpuscular Volume 87.3 fl (85-98); Mean Platelet Volume 9.7 fL (7.4-10.4); Monocytes # 0.8 10^3/uL (0.2-0.9); Monocytes % 8.4 %; Neutrophils # 6.33 10^3/uL (1.8-7.7); Neutrophils % 67.3 %; Nucleated Red Blood Cells % 0 %; Platelet Count 316 10^3/cmm (157-399); Red Blood Count 4.71 10^6/uL (3.85-5.65); White Blood Count 9.41 10^3/uL (3.29-11.43)
[2024-01-04 20:15] LABS: Troponin(5th) Baseline 44 ng/L (0-10)
[2024-01-04 20:21] LABS: Alanine Aminotransferase 10 U/L (0-33); Albumin Level 3.9 g/dL (3.5-5.2); Alkaline Phosphatase 70 U/L (35-105); Anion Gap 15.6 (5-19); Aspartate Amino Transferase 19 U/L (0-32); Blood Urea Nitrogen 9 mg/dL (8-23); Calcium 9.7 mg/dL (8.5-10.5); Carbon Dioxide 33 mmol/L (22-29); Chloride 94 mmol/L (98-107); Creatinine Clr Calc Pharmacy 36.4976; Globulin 2.1 g/dL (1.3-4.6); Glucose 110 mg/dL (65-115); Osmolality Calculated 289 mOsm/kg (285-295); Potassium 2.6 mmol/L (3.5-5.1); Sodium 140 mmol/L (136-145); Total Bilirubin 1.4 mg/dL (0.15-1.2)
[2024-01-04] MEDS: potassium chloride premix 100 ML 50 MEQ IV (20:44)
[2024-01-04] MEDS: potassium chloride ER 20 mEq Tablet 40 MEQ PO (20:52)
[2024-01-04 20:57] LABS: Magnesium 1.5 mg/dL (1.7-2.3)
[2024-01-04 21:30] LABS: NT Pro B Type Natriuretic Pept 428 pg/mL (0-450)
--- NOTE | 2024-01-04 21:35 | ECG_ITS ---
[employer] Test Date: 2024-01-04 Pat Name: Ivan Peguero Department: Room: Gender: Female Car Tester: : 1945 Requested By: Jeramie Taylor Order Number: [id number] Soledad MD: Baltazar Osborne M.D. Measurements Intervals [place] Rate: 80 P: 21 MS: 152 QRS: -62 QRSD: 129 T: 16 QT: 430 QTc: 498 Interpretive Statements SINUS RHYTHM LEFT AXIS DEVIATION [QRS AXIS < -30] RIGHT BUNDLE BRANCH BLOCK [120+ ms QRS DURATION, UPRIGHT V1, 40+ ms S IN I/aVL/V4/V5/V6] VOLTAGE CRITERIA FOR LVH [MEETS CRITERIA IN ONE OF: R(aVL), S(V1), R(V5), R(V5/V6)+S(V1)] POSSIBLE SEPTAL MYOCARDIAL INFARCTION , OF INDETERMINATE AGE [30 ms Q WAVE IN V1/V2] Compared to ECG 01/04/2024 19:54:03 Left-axis deviation now present Left anterior fascicular block no longer present Myocardial infarct finding still present Electronically Signed On 01-07-2024 14:18:15 CDT by Baltazar Osborne M.D. [id number]
[2024-01-04 22:31] LABS: Troponin 5 2HR 44.55 ng/L (0-10); Troponin 5 2HR Delta 0.55 ABS# (0-10)
[2024-01-04 23:05] LABS: Anion Gap 13.7 (5-19); Blood Urea Nitrogen 9 mg/dL (8-23); Calcium 9.7 mg/dL (8.5-10.5); Carbon Dioxide 33 mmol/L (22-29); Chloride 95 mmol/L (98-107); Creatinine Clr Calc Pharmacy 33.1796; Glucose 117 mg/dL (65-115); Osmolality Calculated 288 mOsm/kg (285-295); Sodium 139 mmol/L (136-145)
[2024-01-04] MEDS: ketorolac 60 mg/2 mL INJ 30 MG IVP (23:05)
[2024-01-04 23:10] LABS: Potassium 2.7 mmol/L (3.5-5.1)
[2024-01-04 23:29] VITALS: BP 161/99; PULSE 94; RESP 16; O2SAT 99
[2024-01-05] VITALS (9 sets, daily range): BP systolic 119–166; BP diastolic 60–85; PULSE 39–81; RESP 16–25; TEMP 37–37.2; O2SAT 85–93; BMI 23.4
[2024-01-05] MEDS: LORazepam 2 mg/mL INJ 1 mL 1 MG IVP (01:19)
--- NOTE | 2024-01-05 01:21 | P.HP_ITS ---
Providers/Chief Complaint 2 Admitting Physician: Pj Darby Primary Care Provider: Jannet Cisse MD Chief Complaint: SHOULDER PAIN History of Present Illness Pleasant 78-year-old lady with history of hiatal hernia, GERD, hypothyroidism, HTN, HLD, NSTEMI, RLS, chronic back pain, other medical problems, came in due to pain in her left shoulder radiating down the left arm, and ER found with mild to moderate troponin elevation 44, but also found to have severe electrolyte deficiency with potassium of 2.6 and despite replacement with 40 mEq p.o. and 20 mill colons IV rising only up to 2.7. Magnesium is found low at 1.5. Review of Systems 2 Const: Denies: fever(s), chills, body aches or malaise ENMT: Denies: throat pain Card: Denies: edema, pre-syncope or dyspnea on exertion Resp: Denies: dyspnea, productive cough, change in phlegm color or hemoptysis GI: Denies: abdominal pain, nausea, vomiting, diarrhea, constipation, hematochezia or melena : Denies: flank pain, urinary frequency or hematuria Musc: Reports: other (Left shoulder pain) Skin/Breast: Denies: rash Neuro: Denies: headache(s) Medications/Allergies Home Medications Medication Instructions Recorded Confirmed Last Taken Type calcium 600 mg (as carbonate)-vit 1 tab PO DAILY 03/28/19 01/02/24 06/21/23 05:30 History D3 10 mcg (400 unit) chewable tablet (Calcium 600 with Vitamin D3) cyanocobalamin (vitamin B-12) 1,000 mcg PO DAILY 03/28/19 01/02/24 06/21/23 05:30 History 1,000 mcg tablet (Vitamin B-12) multivitamin 1 tab PO DAILY 03/28/19 01/02/24 06/21/23 05:30 History irgcbk-pbxbyixq-ieucase 2 cap PO .[facility] #180 caps 06/27/21 01/02/24 06/20/23 19:00 Rx 40,000-126,000-168,000 unit capsule, delay rel (Zenpep) albuterol sulfate 90 mcg/actuation 2 puff inhalation Q6H PRN 07/24/22 01/02/24 06/21/23 History aerosol inhaler Shortness Of Breath Or Wheezing 0530 atorvastatin 40 mg tablet 40 mg PO BEDTIME 07/24/22 01/02/24 06/20/23 History levothyroxine 75 mcg tablet 75 mcg PO DAILY 07/24/22 01/02/24 06/21/23 05:30 History Budin Hammer Toe Gis Physical Scientist #1 ea 10/03/22 01/02/24 Unknown Rx diclofenac sodium 1 % topical gel 2 g topical QID PRN Pain #100 grams 01/03/23 01/02/24 06/19/23 Rx (Voltaren Arthritis Pain) oxycodone 10 mg tablet 10 - 20 mg PO Q4H PRN Pain, 11/19/23 01/02/24 Unknown History Moderate ropinirole 1 mg tablet 0.5 mg PO BEDTIME 11/19/23 01/02/24 Unknown History amlodipine 5 mg tablet 10 mg (2 x 5 mg) PO DAILY #100 tabs 11/23/23 01/02/24 Unknown Rx budesonide-formoterol HFA 160 2 puff inhalation BID 12/09/23 01/02/24 Unknown History mcg-4.5 mcg/actuation aerosol inhaler (Symbicort) pantoprazole 40 mg tablet,delayed 40 mg PO BID #60 tabs 12/14/23 01/02/24 Unknown Rx release sennosides 8.6 mg tablet (senna) 17.2 mg (2 x 8.6 mg) PO BID #60 12/14/23 01/02/24 Unknown Rx tabs sucralfate 1 gram tablet 1 g PO AC&BEDTIME #120 tabs 12/14/23 01/02/24 Unknown Rx peg 400 0.4 %-propylene glycol 1 drp ophthalmic (eye) BID PRN 12/31/23 01/02/24 Unknown History (PF) 0.3 % eye drops (Systane Hydration (PF)) polyethylene glycol 3350 17 gram 17 g PO DAILY constipation #510 ea 12/31/23 01/02/24 Unknown Rx oral powder packet sertraline 25 mg tablet 25 mg PO DAILY #100 tabs 12/31/23 01/02/24 Unknown Rx Allergies Allergy/AdvReac Type Severity Reaction Status Date / Time No Known Allergies Allergy Verified 01/04/24 19:29 PFSH Acute 2 PFSH: Medical History Anemia of unknown etiology Depression, major Constipation 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 on CT 12/17 Large hiatal hernia Exocrine pancreatic insufficiency Renal insufficiency Hiatal hernia with GERD Hypothyroidism Enrolled in chronic care management Right knee DJD Osteoporosis Greater trochanteric bursitis Diarrhea Urinary retention Atherosclerotic heart disease of [place] coronary artery with other forms of angina pectoris Abnormal cardiovascular stress test NSTEMI (non-ST elevated myocardial infarction) Hyperlipidemia Hypertension Urgency incontinence Past heart attack Long-term current use of opiate analgesic Pain management contract signed Restless legs syndrome Fibromyalgia Chronic low back pain Dr. Benavidez Rxes pain meds Surgical History History of mandibular surgery R jaw--has titanium plate; done for tumor--benign History of bowel resection benign growth H/O ileostomy Hx of appendectomy (~1973) Hx of hysterectomy (~1973) still has ovaries; had hyst due to bleeding; no cancer History of reversal of ileostomy Hx of tubal ligation Hx of foot surgery (~11/2013) RIGHT FOOT Family History Brother , BONE METS Cancer COLON CANCER Mother Heart disease Family history of thyroid problem Grandmother Heart disease Father Hyperlipidemia Bone cancer Social History Smoking and tobacco/nicotine status: former use of tobacco/nicotine Quit status (tobacco/nicotine): has quit using Year quit tobacco: quit 1989 Second hand smoke exposure: No Alcohol intake: never Substance/Drug Use: never Lives independently: Yes Household members: none Marital status: / Number of children: 3 Highest education level completed: Some College, No Degree Current occupational status: retired 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 Vitals/I&O/Wt Last Vital Signs Temp 98 F 01/04/24 19:26 Pulse 94 01/04/24 23:29 Resp 16 01/04/24 23:29 BP 161/99 01/04/24 23:29 Pulse Ox 99 01/04/24 23:29 O2 Del Method Room Air 01/04/24 23:29 01/04/24 01/04/24 01/05/24 14:59 22:59 06:59 Intake Total 100 / 100 Balance 100 / 100 Weight last 48 hrs Weight 54.431 kg Physical Exam 2 Const: COMMON NORMALS: patient oriented x3 and alert GENERAL APPEARANCE: c ooperative ORIENTATION/CONSCIOUSNESS: Yes awake HENMT: COMMON NORMALS: oropharynx normal Neck/C-Spine: COMMON NORMALS: no JVD Resp: COMMON NORMALS: normal respiratory effort and clear to auscultation bilaterally AUSCULTATION: clear to auscultation bilaterally Cardio: COMMON NORMALS: no JVD, regular rhythm, S1 normal heart sound present, S2 normal heart sound present and No murmurs present (Cardio) RHYTHM: regular rhythm HEART SOUNDS: S1 normal heart sound present and S2 normal heart sound present GI: COMMON NORMALS: Normal to inspection, nondistended, normoactive bowel sounds present, Soft to palpation and non-tender PALPATION: Yes Soft to palpation Extremity: COMMON NORMALS: no joint enlargement and no pedal edema N ARRATIVE EXTREMITY EXAM: Left shoulder without swelling, redness, not tender to touch. No pain on PROM extension, abduction, internal rotation. Neuro: COMMON NORMALS: patient oriented x3 and moves all extremities S ENSORIUM/ORIENTATION: Yes alert Skin: COMMON NORMALS: no rashes or lesions noted GENERAL SKIN EXAM: no rashes or lesions noted Data 01/04/24 19:47 01/04/24 21:45 A&P Assessment and plan (1) Troponin level elevated: Episode of left shoulder pain rating down the left arm today. Currently resolved. Noted moderate troponin elevation to 44. Noted severe electrolyte deficiency. History of NSTEMI. Reviewed vital signs, CBC, CMP, baseline and 2- hour troponin, EKG, on my interpretation RBBB, initially with LAF as well, pending official read. Complete troponin EKG series. Monitor on telemetry. Will give aspirin, atorvastatin, hold beta-shital due to bradycardia. (2) Hypokalemia: Severe hypokalemia with EKG changes with initial LAF as well, improved with replacement, persistent RBBB which is not new. Hypokalemia despite attempted replacement of potassium with 40 oral potassium as well as 20 mill equivalents K rider, potassium came up only from 2.6 up to 2.7. Noted hypomagnesemia as well. Recheck potassium pending. Replace magnesium. Recheck. (3) Hypomagnesemia: Give 4 g IV magnesium. Recheck level. (4) Left shoulder pain: Left shoulder pain earlier today, with 1 of banality as above. Assess for possible NSTEMI. Shoulder pain has resolved. No redness, swelling, no pain on PROM. She does feel some clicking and crackling inside the shoulder. Suspect osteoarthritis. Obtain shoulder x-ray. Qualifiers: Chronicity: acute Qualified Code(s): M25.512 - Pain in left shoulder Plan hiatal hernia, GERD, continue PPI hypothyroidism, continue levothyroxine HTN, HLD, Hx NSTEMI, RLS, resume ropinirole chronic back pain, other medical problems Requested to confirm home medications, please review and resume when available. Attestations 2 Medical Necessity Statement*: Place in observation for additional assessment of management after mild troponin elevation with left arm pain, replacement of severe hypokalemia, persistent applied initial replacement attempt, hypomagnesemia. and High MDM includes amount and/or complexity of data reviewed/ordered [ previous or external records, resulted lab(s)/test(s), ordered lab(s)/test(s), independent test interpretation and other healthcare professional discussion] as documented Diagnoses Troponin level elevated R79.89 Hypokalemia E87.6 Hypomagnesemia E83.42 Left shoulder pain M25.512 Chronicity: acute
--- NOTE | 2024-01-05 01:35 | ECG_ITS ---
[employer] Test Date: 2024-01-05 Pat Name: Ivan Peguero Department: Room: 102 Gender: Female Tow Mate: : 1945 Requested By: Jeramie Taylor Order Number: [id number] Rowe MD: Baltazar Osborne M.D. Measurements Intervals [place] Rate: 69 P: 34 MA: 162 QRS: -41 QRSD: 122 T: -7 QT: 433 QTc: 466 Interpretive Statements SINUS RHYTHM LEFT AXIS DEVIATION [QRS AXIS < -30] RIGHT BUNDLE BRANCH BLOCK [120+ ms QRS DURATION, UPRIGHT V1, 40+ ms S IN I/aVL/V4/V5/V6] MODERATE VOLTAGE CRITERIA FOR LVH, CONSIDER NORMAL VARIANT [MEETS CRITERIA IN ONE OF: R(aVL), S(V1), R(V5), R(V5/V6)+S(V1)] POSSIBLE ANTERIOR MYOCARDIAL INFARCTION , OF INDETERMINATE AGE [30 ms Q WAVE IN V3/V4, OR R < 0.2 mV IN V4] Compared to ECG 01/04/2024 22:41:46 No significant changes Electronically Signed On 01-07-2024 14:17:49 CDT by Baltazar Osborne M.D. [id number]
--- NOTE | 2024-01-05 02:36 | XRR_ITS ---
PROCEDURE INFORMATION: Exam: XR Left Shoulder Exam date and time: 01/05/2024 2:51 AM Age: 78 years old Clinical indication: Patient HX: C/O left shoulder pain. No injury. TECHNIQUE: Imaging protocol: Radiologic exam of the left shoulder. Views: 2 or more views. COMPARISON: CR (CHEST, ) 01/04/2024 7:38 PM FINDINGS: Bones/joints: Normal. Soft tissues: Normal. XR/XR shoulder LT min 2V* [id number] IMPRESSION: No acute findings.
[2024-01-05] MEDS: magnesium sulfate premix 4 GM/100 ML PREMIX IV (02:42)
[2024-01-05 02:45] LABS: D Dimer 0.82 ug/mLFEU (0-0.59)
[2024-01-05 03:09] LABS: Troponin 5 6HR 55.13 ng/L (0-10); Troponin 5 6HR Delta 11.13 ng/L (0-12)
[2024-01-05 03:19] LABS: Alanine Aminotransferase 9 U/L (0-33); Albumin Level 3.6 g/dL (3.5-5.2); Alkaline Phosphatase 66 U/L (35-105); Anion Gap 14.4 (5-19); Aspartate Amino Transferase 18 U/L (0-32); Blood Urea Nitrogen 11 mg/dL (8-23); Calcium 9.6 mg/dL (8.5-10.5); Carbon Dioxide 33 mmol/L (22-29); Chloride 97 mmol/L (98-107); Creatinine Clr Calc Pharmacy 30.4147; Globulin 2.5 g/dL (1.3-4.6); Glucose 127 mg/dL (65-115); Magnesium 1.4 mg/dL (1.7-2.3); Osmolality Calculated 293 mOsm/kg (285-295); Potassium 3.4 mmol/L (3.5-5.1); Sodium 141 mmol/L (136-145); Total Bilirubin 1.3 mg/dL (0.15-1.2); Total Protein 6.1 g/dL (6.6-8.7)
[2024-01-05] MEDS: trazodone 50 mg Tablet 25 MG PO (03:30)
[2024-01-05] MEDS: ropinirole 1 mg Tablet 0.5 MG PO (03:30)
[2024-01-05] MEDS: levothyroxine 75 mcg Tablet PO (05:14)
[2024-01-05] MEDS: enoxaparin 40 mg/0.4 mL Syringe SUBCUT (07:49)
[2024-01-05] MEDS: pantoprazole DR 40 mg Tablet PO (07:49)
--- NOTE | 2024-01-05 10:20 | PC.NURSE ---
HEIDI Olivo, when changing the bedding, found a small pink pill in the patient's bed. The pill had K 56 on it, which appears to be an oxycodone. Pallavi gave the pill to administrative underwriter, who put pill in sharps container inside room. Radiology Therapist has not given this patient any oxycodone, nor does the patient have any ordered.
[2024-01-05 11:15] LABS: Magnesium 1.8 mg/dL (1.7-2.3); Potassium 3.6 mmol/L (3.5-5.1)
[2024-01-05] MEDS: potassium chloride ER 20 mEq Tablet 40 MEQ PO (12:33)
--- NOTE | 2024-01-05 12:33 | P.DS_ITS ---
Discharge Providers Date of Admission: 01/05/24 00:16 Date of Discharge: January 05, 2024 Attending Provider at Admission: Pj Darby Attending Provider at Discharge: Shanika Goode MD Primary Care Provider: Jannet Cisse MD Diagnoses at Discharge Discharge Diagnosis (1) Troponin level elevated: Status: Resolved (2) Hypokalemia: Status: Resolved (3) Hypomagnesemia: Status: Resolved (4) Left shoulder pain: Status: Resolved Qualifiers: Chronicity: acute Qualified Code(s): M25.512 - Pain in left shoulder Reason for Visit Reason for Visit: SHOULDER PAIN Hospital Course Hospital Course Patient presented to the hospital with history of hiatal hernia and having pain in left shoulder rating down her left arm. ER of found troponins to be moderately elevated at 44 however she also had electrolyte deficiency with potassium of 2.6. Oral and IV potassium were given however repeat potassium was still low. Magnesium was also low at 1.5. Patient was admitted for administration of potassium and magnesium. Her pain in left arm and shoulder was thought to be musculoskeletal in nature and was a typical and reproducible to palpation. Day of discharge she was able to move her arm without having any more pain at this time. Patient did have clicking and crackling inside the shoulder upon examination. She does have a history of a large hiatal hernia patient was advised to have an outpatient echo and stress test and was given repeat BMP and magnesium to be checked as outpatient. She was also given referral to GI for evaluation of further management of the hiatal hernia. Patient was given a prescription for Zofran. For insomnia low-dose trazodone was given. Patient is asked to follow-up with PCP. Patient demonstrated understanding and was in agreement. Physical Exam Const: COMMON NORMALS: patient oriented x3 and alert GENERAL APPEARANCE: cooperative ORIENTATION/CONSCIOUSNESS: Yes awake HENMT: COMMON NORMALS: oropharynx normal Neck/C-Spine: COMMON NORMALS: no JVD Resp: COMMON NORMALS: normal respiratory effort and clear to auscultation bilaterally AUSCULTATION: clear to auscultation bilaterally Cardio: COMMON NORMALS: no JVD, regular rhythm, S1 normal heart sound present, S2 normal heart sound present and No murmurs present (Cardio) RHYTHM: regular rhythm HEART SOUNDS: S1 normal heart sound present and S2 normal heart sound present GI: COMMON NORMALS: Normal to inspection, nondistended, normoactive bowel sounds present, Soft to palpation and non-tender PALPATION: Yes Soft to palpation Extremity: COMMON NORMALS: no joint enlargement and no pedal edema NARRATIVE EXTREMITY EXAM: Left shoulder without swelling, redness, not tender to touch. No pain on PROM extension, abduction, internal rotation. Neuro: COMMON NORMALS: patient oriented x3 and moves all extremities SENSORIUM/ORIENTATION: Yes alert Skin: COMMON NORMALS: no rashes or lesions noted GENERAL SKIN EXAM: no rashes or lesions noted Discharge Data Studies Completed and Pending Completed Studies During Hospitalization Category Date Time Status XR chest 1V portable [id number] Stat Exams 01/04/24 19:35 Completed XR shoulder LT min 2V* [id number] Routine Exams 01/05/24 02:36 Completed Pending at discharge Category Date Time Status Comprehensive Metabolic Panel AM LABS Lab 01/06/24 04:00 Ordered Comprehensive Metabolic Panel AM LABS Lab 01/07/24 04:00 Ordered Comprehensive Metabolic Panel AM LABS Lab 01/08/24 04:00 Ordered Magnesium AM LABS Lab 01/06/24 04:00 Ordered Magnesium AM LABS Lab 01/07/24 04:00 Ordered Magnesium AM LABS Lab 01/08/24 04:00 Ordered Radiology Impressions Chest X-Ray 01/04/24 19:35 IMPRESSION: 1. No acute cardiopulmonary process. 2. Stable large hiatal hernia. 3. Incidental/nonacute findings are listed in the report. Shoulder X-Ray 01/05/24 02:36 IMPRESSION: No acute findings. Laboratory Results WBC 9.41 10^3/uL (3.29-11.43) 01/04/24 19:47 RBC 4.71 10^6/uL (3.85-5.65) 01/04/24 19:47 Hgb 13.20 g/dL (11.27-16.99) 01/04/24 19:47 Hct 41.1 % (36-47) 01/04/24 19:47 MCV 87.3 fl (85-98) 01/04/24 19:47 MCH 28.0 pg (27-33) 01/04/24 19:47 MCHC 32.1 g/dL (30-55) 01/04/24 19:47 RDW 16.0 % (12.1-15.1) H 01/04/24 19:47 Plt Count 316 10^3/cmm (157-399) 01/04/24 19:47 MPV 9.7 fL (7.4-10.4) 01/04/24 19:47 Neut % (Auto) 67.3 % 01/04/24 19:47 Lymph % (Auto) 20.9 % 01/04/24 19:47 Alcorn % (Auto) 8.4 % 01/04/24 19:47 Eos % (Auto) 2.9 % 01/04/24 19:47 Baso % (Auto) 0.3 % 01/04/24 19:47 Neut # (Auto) 6.33 10^3/uL (1.8-7.7) 01/04/24 19:47 Lymph # (Auto) 2.0 10^3/uL (0.8-4.8) 01/04/24 19:47 Alcorn # (Auto) 0.8 10^3/uL (0.2-0.9) 01/04/24 19:47 Eos # (Auto) 0.3 10^3/uL (0.0-0.8) 01/04/24 19:47 Baso # (Auto) 0.0 10^3/uL (0.0-0.1) 01/04/24 19:47 Nucleated RBC % (auto) 0 % 01/04/24 19:47 Nucleated RBCs # 0.0 /100WBC 01/04/24 19:47 D-Dimer 0.82 ug/mLFEU (0-0.59) H 01/04/24 19:47 Sodium 141 mmol/L (136-145) 01/05/24 02:02 Potassium 3.6 mmol/L (3.5-5.1) 01/05/24 10:47 Chloride 97 mmol/L (98-107) L 01/05/24 02:02 Carbon Dioxide 33 mmol/L (22-29) H 01/05/24 02:02 Anion Gap 14.4 (5-19) 01/05/24 02:02 BUN 11 mg/dL (8-23) 01/05/24 02:02 Creatinine 1.2 mg/dL (0.5-0.9) H 01/05/24 02:02 GFR Calculation Not Reportable 01/05/24 02:02 Glucose 127 mg/dL (65-115) H 01/05/24 02:02 Calculated Osmolality 293 mOsm/kg (285-295) 01/05/24 02:02 Calcium 9.6 mg/dL (8.5-10.5) 01/05/24 02:02 Magnesium 1.8 mg/dL (1.7-2.3) 01/05/24 10:47 Total Bilirubin 1.3 mg/dL (0.15-1.2) H 01/05/24 02:02 AST 18 U/L (0-32) 01/05/24 02:02 ALT 9 U/L (0-33) 01/05/24 02:02 Alkaline Phosphatase 66 U/L (35-105) 01/05/24 02:02 Troponin T Baseline 44 ng/L (0-10) H 01/04/24 19:47 Troponin T 120 Minute 44.55 ng/L (0-10) H 01/04/24 21:45 Delta Troponin T 0.55 ABS# (0-10) 01/04/24 21:45 Troponin T Hi Sens 6Hr 55.13 ng/L (0-10) H 01/05/24 02:02 Troponin T Hi Sens 6Hr Delta 11.13 ng/L (0-12) 01/05/24 02:02 NT-Pro-B Natriuret Pep 428 pg/mL (0-450) 01/04/24 19:47 Total Protein 6.1 g/dL (6.6-8.7) L 01/05/24 02:02 Albumin 3.6 g/dL (3.5-5.2) 01/05/24 02:02 Globulin 2.5 g/dL (1.3-4.6) 01/05/24 02:02 Vitals Last Vital Signs Temp 98.6 F 01/05/24 11:26 Pulse 81 01/05/24 11:26 Resp 16 01/05/24 11:26 BP 134/83 01/05/24 11:26 Pulse Ox 93 01/05/24 11:26 O2 Del Method Room Air 01/05/24 11:26 Discharge Plan Discharge Patient Disposition: Home Condition: Stable Prescriptions: New trazodone 50 mg tablet 25 mg PO QPM PRN (Reason: insomnia) Qty: 4 0RF Continued sertraline 25 mg tablet 25 mg PO DAILY Qty: 100 0RF (DME) Budin Hammer [employer]e [employer]st See Rx Instructions .Route .MEDSUPPLY Qty: 1 0RF Rx Instructions: As directed by HOME cyanocobalamin (vitamin B-12) [Vitamin B-12] 1,000 mcg Tablet 1,000 mcg PO DAILY Calcium 600 with Vitamin D3 600 mg(1,500mg) -400 unit Tablet,Chewable 1 tab PO DAILY atorvastatin 40 mg tablet 40 mg PO BEDTIME albuterol sulfate 90 mcg/actuation HFA aerosol inhaler 2 puff inhalation Q6H PRN (Reason: Shortness Of Breath Or Wheezing) budesonide-formoterol [Symbicort] 160-4.5 mcg/actuation HFA aerosol inhaler 2 puff INHALATION BID pantoprazole 40 mg Tablet,Delayed Release (Dr/Ec) 40 mg PO BID Qty: 60 0RF sennosides [senna] 8.6 mg Tablet 17.2 mg PO BID Qty: 60 0RF sucralfate 1 gram Tablet 1 g PO AC&BEDTIME Qty: 120 0RF ropinirole 1 mg tablet 0.5 mg PO BEDTIME oxycodone 10 mg tablet 10 - 20 mg PO Q4H PRN (Reason: Pain, Moderate) Rx Instructions: TAKE 1 TO 2 TABLETS BY MOUTH EVERY 4 TO 6 HOURS NEEDED FOR PAIN max 6 PER day No Action ondansetron 4 mg tablet,disintegrating 4 mg PO Q8H PRN (Reason: Nausea And Vomiting) multivitamin Tablet 1 tab PO DAILY Discharge Orders: Discharge Order (Routine); Ordered 01/05/24 Ordered By: Shainka Goode Other Ambulatory Orders: Basic Metabolic Panel (Routine) Timeframe: 20240108 Facility: [facility] - Location: Lab - Main Lab Ordered By: Shanika Goode Sestamibi Stress Test Request (Routine) Timeframe: 1 Day Facility: [facility] - Location: Cardiac Diagnostic Laboratory Ordered By: Shanika Goode CV. echo complete* [id number] (Routine) Timeframe: 1 Day Facility: [facility] - Location: Radiology Ordered By: Shanika Goode Magnesium (Routine) Timeframe: 20240108 Facility: [facility] - Location: Lab - Main Lab Ordered By: Shanika Goode Referrals: Jeannette Elise MD [Referring] - 7-10 days (Please call on Sunday morning to set up an appointment to be seen for hiatal hernia.) Jannet Cisse MD [Primary Care Provider] - 4-7 days (We have notified your physician's clinic of the need for a follow-up appointment to be scheduled. If you have not heard from them within the next 2 business days, please call them directly. ) Discharge Diet: Cardiac Discharge Activity: Resume usual activity Patient Instructions: Trazodone (By mouth), Ondansetron (By mouth), Opioid Safety Discharge Attestations Time Spent in Discharge Care*: greater than 30 min Quality Metrics Clinical Quality Measures [ No reported AMI, CVA or VTE this stay] Coding Level of Care Code Acute Code for Chg Fwd Diagnoses Troponin level elevated R79.89 Hypokalemia E87.6 Hypomagnesemia E83.42 Left shoulder pain M25.512 Chronicity: acute
[2024-01-05] MEDS: ondansetron 2 mg/ML SDV 2 mL 4 MG IVP (12:44)
== END 2024-01-05 14:20 | disposition home or self-care (01) ==
LOC: ER 01-05 00:38 → CSU 01-05 01:05
PROVIDERS: Admitting Provider Internal Medicine; Emergency Provider Physician Assistant; PCP Family Medicine; Visit Provider Internal Medicine
DX: R79.89 Other specified abnormal findings of blood chemistry (principal); E87.6 Hypokalemia; E83.42 Hypomagnesemia; M25.512 Pain in left shoulder; K21.9 Gastro-esophageal reflux disease without esophagitis; E03.9 Hypothyroidism, unspecified; I10 Essential (primary) hypertension; E78.5 Hyperlipidemia, unspecified; M81.0 Age-related osteoporosis without current pathological fracture; I25.110 Atherosclerotic heart disease of native coronary artery with unstable angina pectoris; I25.2 Old myocardial infarction; M79.7 Fibromyalgia; Z87.891 Personal history of nicotine dependence; K44.9 Diaphragmatic hernia without obstruction or gangrene; Z79.899 Other long term (current) drug therapy
CPT/HCPCS: 36415; 71045; 73030; 80048; 80053; 83735; 83880; 84132; 84484; 85025; 85378; 93005; 96365; 96366; 96372; 96375; 99285; G0378; J1650; J1885; J2060; J2405; J3475; J3480

== ENCOUNTER 2024-01-08 09:01 | Emergency (ER) | payer MEDICARE, SELFPAY ==
[2024-01-08] VITALS (12 sets, daily range): BP systolic 142–208; BP diastolic 69–97; PULSE 60–88; RESP 16–20; TEMP 36.8; O2SAT 87–98; BMI 22.4
--- NOTE | 2024-01-08 09:18 | XRR_ITS ---
PROCEDURE INFORMATION: Exam: XR Chest Exam date and time: 01/08/2024 9:25 AM Age: 78 years old Clinical indication: Pain; Shortness of breath; Angina pectoris; Additional info: Chest pain TECHNIQUE: Imaging protocol: Radiologic exam of the chest. Views: 1 view. COMPARISON: CR (CHEST, ) 01/04/2024 7:38 PM FINDINGS: Lungs: Unremarkable. No consolidation. Pleural spaces: Unremarkable. No pleural effusion. No pneumothorax. Heart/Mediastinum: Retrocardiac mixed lucency and density corresponds to a hiatal hernia. Bones/joints: Unremarkable. XR/XR chest 1V portable [id number] IMPRESSION: No acute cardiopulmonary disease. Hiatal hernia.
--- NOTE | 2024-01-08 09:19 | ECG_ITS ---
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 Measurements Intervals What Cheer Rate: 91 P: 23 AZ: 161 QRS: -53 QRSD: 131 T: 27 QT: 424 QTc: 522 Interpretive Statements SINUS RHYTHM WITH FREQUENT SUPRAVENTRICULAR PREMATURE COMPLEXES RIGHT BUNDLE BRANCH BLOCK [120+ ms QRS DURATION, UPRIGHT V1, 40+ ms S IN I/aVL/V4/V5/V6] LEFT ANTERIOR FASCICULAR BLOCK [QRS AXIS <= -45, QR IN I, RS IN II] VOLTAGE CRITERIA FOR LVH [MEETS CRITERIA IN ONE OF: R(aVL), S(V1), R(V5), R(V5/V6)+S(V1)] Compared to ECG 01/05/2024 01:09:51 Left anterior fascicular block now present Left-axis deviation no longer present Myocardial infarct finding no longer present Electronically Signed On 01-09-2024 01:05:27 CDT by Philly Mijares M.D. [email or web address]
--- NOTE | 2024-01-08 09:26 | PC.NURSE ---
PATIENT PLACED ON 2 L NC DUE TO O2 SATURATIONS DROPPING TO 88% ON RA.
--- NOTE | 2024-01-08 09:27 | W.ED.GENADLT ---
HPI - General Adult General: Chief complaint: Chest Pain Stated complaint: SOB, Chest Pain Time Seen by Provider: 01/08/24 09:18 Source: patient Mode of arrival: EMS Limitations: no limitations History of Present Illness: Patient is a 78-year-old female coming to the ED today from home via EMS for evaluation of shortness of breath, chest pain, back pain, neck pain. She feels like most of her symptoms were present when she woke up this morning. She states she has been having shortness of breath for a few weeks. She was admitted to the hospital recently for hyponatremia. Patient states at time of my examination, her chest pain has improved but she is still having back pain between my shoulders and neck pain. Feels like her shoulders pop and crunch . History of chronic back pains-takes high dose oxycodone several times daily for this-unsure if she has had yesterday/today. Has had previous shoulder discomforts in the past. Onset (ago): hour(s) Location: neck, chest and back Severity: moderate Severity scale (1-10): 7 Pain Consistency: constant Relieving factors: none Exacerbating factors: movement and other (palpation) Associated symptoms: Reports chest pain and dyspnea; Deny headache(s), malaise, nausea, palpitations, syncope or vomiting Treatments prior to arrival: other (EMS administered aspirin and nitro) Related Data Home Medications Medication Instructions Recorded Confirmed calcium 600 mg (as carbonate)-vit 1 tab PO DAILY 03/28/19 01/09/24 D3 10 mcg (400 unit) chewable tablet (Calcium 600 with Vitamin D3) cyanocobalamin (vitamin B-12) 1,000 mcg PO DAILY 03/28/19 01/09/24 1,000 mcg tablet (Vitamin B-12) albuterol sulfate 90 mcg/actuation 2 puff inhalation Q6H PRN 07/24/22 01/09/24 aerosol inhaler Shortness Of Breath Or Wheezing atorvastatin 40 mg tablet 40 mg PO BEDTIME 07/24/22 01/09/24 oxycodone 10 mg tablet 10 - 20 mg PO Q4H PRN Pain, 11/19/23 01/09/24 Moderate ropinirole 1 mg tablet 0.5 mg PO BEDTIME 11/19/23 01/09/24 budesonide-formoterol HFA 160 2 puff inhalation BID 12/09/23 01/09/24 mcg-4.5 mcg/actuation aerosol inhaler (Symbicort) multivitamin 1 tab PO DAILY 01/08/24 01/09/24 ondansetron 4 mg disintegrating 4 mg PO Q8H PRN Nausea And Vomiting 01/09/24 01/09/24 tablet Previous Rx's Medication Instructions Recorded Budin Hammer [employer] Building Rental [employer] #1 ea 10/03/22 pantoprazole 40 mg tablet,delayed 40 mg PO BID #60 tabs 12/14/23 release sennosides 8.6 mg tablet (senna) 17.2 mg (2 x 8.6 mg) PO BID #60 12/14/23 tabs sucralfate 1 gram tablet 1 g PO AC&BEDTIME #120 tabs 12/14/23 sertraline 25 mg tablet 25 mg PO DAILY #100 tabs 12/31/23 trazodone 50 mg tablet 25 mg (1/2 x 50 mg) PO QPM PRN 01/05/24 insomnia #4 tabs Allergies Allergy/AdvReac Type Severity Reaction Status Date / Time No Known Allergies Allergy Verified 01/04/24 19:29 Review of Systems Const: Denies: fever(s), chills, body aches, fatigue or malaise Card: Reports: chest pain; Denies: palpitations, irregular heart rhythm, edema, swelling of feet/ankles, lightheadedness, syncope, pre-syncope, orthopnea, leg pain with exertion or acrocyanosis Resp: Reports: dyspnea; Denies: productive cough, non-productive cough, wheezing, pain on inspiration, hemoptysis or chest congestion GI: Denies: abdominal pain, nausea, vomiting or diarrhea : Denies: flank pain or dysuria Musc: Reports: neck pain, back pain and joint pain (bilateral shoulders); Denies: extremity pain, extremity swelling, joint swelling, joint redness or joint warmth Neuro: Denies: headache(s), numbness in extremities, weakness in extremities, sensory changes or dizziness PFSH ED PFSH: Medical History Anemia of unknown etiology Depression, major Constipation 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 on CT 12/17 Large hiatal hernia Exocrine pancreatic insufficiency Renal insufficiency Hiatal hernia with GERD Hypothyroidism Enrolled in chronic care management Right knee DJD Osteoporosis Greater trochanteric bursitis Diarrhea Urinary retention Atherosclerotic heart disease of [place] coronary artery with other forms of angina pectoris Abnormal cardiovascular stress test NSTEMI (non-ST elevated myocardial infarction) Hyperlipidemia Hypertension Urgency incontinence Past heart attack Long-term current use of opiate analgesic Pain management contract signed Restless legs syndrome Fibromyalgia Chronic low back pain Dr. Benavidez Rxes pain meds Surgical History History of mandibular surgery R jaw--has titanium plate; done for tumor--benign History of bowel resection benign growth H/O ileostomy Hx of appendectomy (~1973) Hx of hysterectomy (~1973) still has ovaries; had hyst due to bleeding; no cancer History of reversal of ileostomy Hx of tubal ligation Hx of foot surgery (~11/2013) RIGHT FOOT Family History Brother , BONE METS Cancer COLON CANCER Mother Heart disease Family history of thyroid problem Grandmother Heart disease Father Hyperlipidemia Bone cancer Social History Smoking and tobacco/nicotine status: former use of tobacco/nicotine Quit status (tobacco/nicotine): has quit using Year quit tobacco: quit 1989 Second hand smoke exposure: No Alcohol intake: never Substance/Drug Use: never Lives independently: Yes Household members: none Marital status: / Number of children: 3 Highest education level completed: Some College, No Degree Current occupational status: retired 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 Physical Exam Const: COMMON NORMALS: no acute distress, patient oriented x3, no limitations, alert and well nourished GENERAL APPEARANCE: cooperative and other (frail appearing) ORIENTATION/CONSCIOUSNESS: Yes awake, Yes oriented to person, Yes oriented to place and Yes oriented to time HENMT: COMMON NORMALS: normocephalic and atraumatic HEAD & SCALP: normal to inspection, normocephalic and atraumatic FACE & SINUS: normal facial exam and face symmetric Eye: GENERAL EYE: appearance normal, both eyes and all related structures Neck/C-Spine: COMMON NORMALS: full ROM GENERAL: Yes normal visual inspection, No anterior neck swelling and No submandibular swelling CERVICAL SPINE: Yes cervical ROM normal, Yes pain with cervical ROM, Yes Cervical spine tenderness and No Paracervical muscle tenderness Chest: COMMONS NORMALS: normal inspection of the chest OTHER: TTP L anteriolateral chest wall-palpation directly reproduces patient's pain Resp: COMMON NORMALS: normal respiratory effort and clear to auscultation bilaterally AUSCULTATION: clear to auscultation bilaterally Cardio: COMMON NORMALS: regular rate and regular rhythm RATE: regular rate RHYTHM: regular rhythm : COMMON NORMALS: Yes no CVA tenderness BLADDER/KIDNEY EXAM: Yes no CVA tenderness Back/Pelvis: COMMON NORMALS: no CVA tenderness and straight leg raise negative bilaterally THORACIC SPINE/UPPER BACK: Yes thoracic spinal tenderness LUMBAR SPINE/LOWER BACK: No lumbar spinal tenderness Extremity: COMMON NORMALS: normal to inspection, full ROM, capillary refill normal, no joint enlargement, no clubbing, cyanosis or edema, no calf tenderness and no pedal edema GENERAL: Yes normal exam except as noted Neuro: VINCENT COMA SCALE: document GCS findings [place] coma scale eye opening: Spontaneous Vincent coma scale verbal response: Orientated Vincent coma scale motor response: Obey commands [place] coma scale total score: 15 COMMON NORMALS: patient oriented x3, moves all extremities, no focal motor deficits and no sensory deficits noted SENSORIUM/ORIENTATION: Yes alert, Yes oriented to person, Yes oriented to place and Yes oriented to time Skin: COMMON NORMALS: no rashes or lesions noted GENERAL SKIN EXAM: no rashes or lesions noted Course Vital Signs: Vital signs: Vital Signs Temperature 98.2 F 01/08/24 09:04 Pulse Rate 65 01/09/24 09:21 Respiratory Rate 14 01/09/24 08:30 Blood Pressure 165/66 01/09/24 09:21 Pulse Oximetry 97 01/09/24 09:21 Oxygen Delivery Me thod Room Air 01/09/24 08:00 Oxygen Flow Rate 1 01/09/24 06:00 [facility] - General Adult Medical Decision Making All of patient's pain completely subsided after IV morphine administration. Some of her symptoms/complaints were her chronic pain and she had not had her oxycodone today. Her workup here overall is fairly unremarkable. Her CBC is normal. Chemistry panel unremarkable. She has had transient hyperbilirubinemia in the past and this is mildly elevated today at 1.6. Her baseline troponin of 35 which is unchanged from previous. She has a negative delta. EKGs without changes from previous and showing no acute ischemia. Her COVID/flu/RSV are negative. CXR unremarkable. Known large hiatal hernia. She has had some periods where oxygen would slightly drop while sleeping. When she is alert and talking to me, her sats are easily 96-97% on RA. Her ddimer was elevated so CTA imaging was ordered and unremarkable. Daughter later shows up and provides history that her mother has been very depressed and crying a lot lately. She is made several statements that she just wants to . Patient states she has not had direct suicidal thoughts however is intentionally not caring for herself at home hoping that this will result in her . Daughter states she cannot continue to care for her mother and fears for her safety if she is alone. Patient reportedly lost her 4 years ago and has been struggling since. They are requesting [facility] psych transfer. Medical Records I reviewed the patient's medical records. Lab Data I reviewed the patient's lab results. 01/08/24 09:46 01/08/24 09:46 Radiology Impressions Chest X-Ray 01/08/24 09:18 IMPRESSION: No acute cardiopulmonary disease. Hiatal hernia. Thoracic Spine X-Ray 01/08/24 09:28 IMPRESSION: Multi convex scoliosis in the thoracolumbar spine. Chest CTA 01/08/24 11:41 IMPRESSION: 1. No pulmonary embolism. 2. Small RIGHT pleural effusion. 3. No pneumonia. 4. Stomach is nearly completely intrathoracic. Laboratory Results WBC 10.26 10^3/uL (3.29-11.43) 01/08/24 09:46 RBC 4.21 10^6/uL (3.85-5.65) 01/08/24 09:46 Hgb 11.90 g/dL (11.27-16.99) 01/08/24 09:46 Hct 38.1 % (36-47) 01/08/24 09:46 MCV 90.5 fl (85-98) 01/08/24 09:46 MCH 28.3 pg (27-33) 01/08/24 09:46 MCHC 31.2 g/dL (30-55) 01/08/24 09:46 RDW 16.6 % (12.1-15.1) H 01/08/24 09:46 Plt Count 278 10^3/cmm (157-399) 01/08/24 09:46 MPV 11.0 fL (7.4-10.4) H 01/08/24 09:46 Neut % (Auto) 72.4 % 01/08/24 09:46 Lymph % (Auto) 15.3 % 01/08/24 09:46 [place] % (Auto) 8.5 % 01/08/24 09:46 Eos % (Auto) 3.1 % 01/08/24 09:46 Baso % (Auto) 0.3 % 01/08/24 09:46 Neut # (Auto) 7.43 10^3/uL (1.8-7.7) 01/08/24 09:46 Lymph # (Auto) 1.6 10^3/uL (0.8-4.8) 01/08/24 09:46 [place] # (Auto) 0.9 10^3/uL (0.2-0.9) 01/08/24 09:46 Eos # (Auto) 0.3 10^3/uL (0.0-0.8) 01/08/24 09:46 Baso # (Auto) 0.0 10^3/uL (0.0-0.1) 01/08/24 09:46 Nucleated RBC % (auto) 0 % 01/08/24 09:46 Nucleated RBCs # 0.0 /100WBC 01/08/24 09:46 D-Dimer 1.24 ug/mLFEU (0-0.59) H 01/08/24 09:46 Sodium 140 mmol/L (136-145) 01/08/24 09:46 Potassium 4.0 mmol/L (3.5-5.1) 01/08/24 09:46 Chloride 100 mmol/L (98-107) 01/08/24 09:46 Carbon Dioxide 30 mmol/L (22-29) H 01/08/24 09:46 Anion Gap 14.0 (5-19) 01/08/24 09:46 BUN 11 mg/dL (8-23) 01/08/24 09:46 Creatinine 0.9 mg/dL (0.5-0.9) 01/08/24 09:46 GFR Calculation Not Reportable 01/08/24 09:46 Glucose 107 mg/dL (65-115) 01/08/24 09:46 Calculated Osmolality 290 mOsm/kg (285-295) 01/08/24 09:46 Calcium 9.8 mg/dL (8.5-10.5) 01/08/24 09:46 Total Bilirubin 1.6 mg/dL (0.15-1.2) H 01/08/24 09:46 AST 15 U/L (0-32) 01/08/24 09:46 ALT 7 U/L (0-33) 01/08/24 09:46 Alkaline Phosphatase 61 U/L (35-105) 01/08/24 09:46 Troponin T Baseline 35 ng/L (0-10) H 01/08/24 09:46 Troponin T 120 Minute 29.40 ng/L (0-10) H 01/08/24 12:00 Delta Troponin T -5.60 ABS# (0-10) L 01/08/24 12:00 Troponin T Hi Sens 6Hr 33.43 ng/L (0-10) H 01/08/24 16:02 Troponin T Hi Sens 6Hr Delta -1.57 ng/L (0-12) L 01/08/24 16:02 Total Protein 5.3 g/dL (6.6-8.7) L 01/08/24 09:46 Albumin 3.4 g/dL (3.5-5.2) L 01/08/24 09:46 Globulin 1.9 g/dL (1.3-4.6) 01/08/24 09:46 TSH 3.14 uIU/mL (0.27-4.20) 01/08/24 09:46 Urine Color Yellow (Yellow) 01/08/24 14:15 Urine Appearance Cloudy (CLEAR) A 01/08/24 14:15 Urine pH 7.0 (5-7) 01/08/24 14:15 Ur Specific [place] 1.033 (1.005-1.030) H 01/08/24 14:15 Urine Protein Trace (Negative) A 01/08/24 14:15 Urine Glucose (UA) Negative (Normal) 01/08/24 14:15 Urine Ketones Negative (Negative) 01/08/24 14:15 Urine Blood Non-haemolysed trace (Negative) 01/08/24 14:15 Urine Nitrate Negative (Negative) 01/08/24 14:15 Urine Bilirubin Negative (Negative) 01/08/24 14:15 Urine Urobilinogen 1.0 mg/dL (Negative) 01/08/24 14:15 Ur Leukocyte Esterase 3+ (Negative) A 01/08/24 14:15 Urine RBC 5-10 /hpf (0-2) H 01/08/24 14:15 Urine WBC Too numerous to cnt /hpf (0-5) H 01/08/24 14:15 Ur Squamous Epith Cells 0-4 /hpf (0-5) H 01/08/24 14:15 Amorphous Sediment Not Reportable 01/08/24 14:15 Urine Bacteria None /hpf (NONE) 01/08/24 14:15 Urine Mucus None /hpf 01/08/24 14:15 Urine Yeast 1+ /hpf H 01/08/24 14:15 Salicylates 1.7 mg/dL (3-10) L 01/08/24 09:46 Urine Opiates Screen Positive ng/mL (Negative) H 01/08/24 14:15 Acetaminophen < 5.0 ug/mL (10-30) L 01/08/24 09:46 Ur Barbiturates Screen Negative ng/mL (Negative) 01/08/24 14:15 Ur Phencyclidine Scrn Negative ng/mL (Negative) 01/08/24 14:15 Ur Amphetamines Screen Negative ng/mL (Negative) 01/08/24 14:15 U Benzodiazepines Scrn Positive ng/mL (Negative) H 01/08/24 14:15 Urine Cocaine Screen Negative ng/mL (Negative) 01/08/24 14:15 U Marijuana (THC) Screen Negative ng/mL (Negative) 01/08/24 14:15 Ethyl Alcohol < 10 mg/dL (0-10) 01/08/24 09:46 Coronavirus (PCR) Negative (Negative) 01/08/24 10:21 Influenza A (PCR) Negative (Negative) 01/08/24 10:21 Influenza Type B (PCR) Negative (Negative) 01/08/24 10:21 RSV (PCR) Negative (Negative) 01/08/24 10:21 All radiology interpretation(s) finalized by discharge Discharge Plan Discharge Patient Disposition: Xfer Psychiatric Hosp Clinical Impression: Acute UTI Chronic back pain Qualifiers: Back pain location: thoracic back pain Back pain laterality: midline Qualified Code(s): M54.6 - Pain in thoracic spine Depression Qualifiers: Depression Type: unspecified Qualified Code(s): F32.A - Depression, unspecified Condition: Stable Referrals: Jannet Cisse MD [Primary Care Provider] - Coding Level of Care Code ED 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
--- NOTE | 2024-01-08 09:28 | XRR_ITS ---
PROCEDURE INFORMATION: Exam: XR Thoracic Spine Exam date and time: 01/08/2024 9:37 AM Age: 78 years old Clinical indication: Pain in thoracic spine; Additional info: Back pain TECHNIQUE: Imaging protocol: Radiologic exam of the thoracic spine. Views: 3 views. COMPARISON: CR XR chest 1V portable [id number] 01/08/2024 9:25 AM FINDINGS: Bones/joints: There is a multi convex scoliosis of the thoracolumbar spine the maximum curvature in the lumbar spine centered at L3 with Hernandez angle measuring 31 degrees. There is an 15 degree dextroconvex curvature of the thoracic spine centered at T8 and a 18 degree levoconvex curvature centered at T4. There is an exaggerated kyphoscoliosis of the thoracic spine. Vertebral body heights are otherwise preserved. Soft tissues: Unremarkable. XR/XR thoracic spine 3V* [id number] IMPRESSION: Multi convex scoliosis in the thoracolumbar spine.
[2024-01-08 10:08] LABS: Basophils % 0.3 %; Eosinophils # 0.3 10^3/uL (0.0-0.8); Eosinophils % 3.1 %; Hematocrit 38.1 % (36-47); Lymphocytes # 1.6 10^3/uL (0.8-4.8); Lymphocytes % 15.3 %; Mean Corpuscular HGB Conc 31.2 g/dL (30-55); Mean Corpuscular Hemoglobin 28.3 pg (27-33); Mean Corpuscular Volume 90.5 fl (85-98); Monocytes # 0.9 10^3/uL (0.2-0.9); Monocytes % 8.5 %; Neutrophils # 7.43 10^3/uL (1.8-7.7); Neutrophils % 72.4 %; Nucleated Red Blood Cells % 0 %; Platelet Count 278 10^3/cmm (157-399); Red Blood Count 4.21 10^6/uL (3.85-5.65); Red Cell Distribution Width 16.6 % (12.1-15.1); White Blood Count 10.26 10^3/uL (3.29-11.43)
[2024-01-08] MEDS: morphine 4 mg/mL SDV 1 mL IVP (10:22)
[2024-01-08 10:25] LABS: Troponin(5th) Baseline 35 ng/L (0-10)
--- NOTE | 2024-01-08 10:29 | PC.PHAR ---
Daughter states that Patient was discharged 2 days ago and no medications have changed . I verified off that list ..Daughter was on her way to ER and didn't want to turn around and get medications .
[2024-01-08 10:34] LABS: Alanine Aminotransferase 7 U/L (0-33); Albumin Level 3.4 g/dL (3.5-5.2); Alkaline Phosphatase 61 U/L (35-105); Aspartate Amino Transferase 15 U/L (0-32); Blood Urea Nitrogen 11 mg/dL (8-23); Calcium 9.8 mg/dL (8.5-10.5); Carbon Dioxide 30 mmol/L (22-29); Chloride 100 mmol/L (98-107); Creatinine Clr Calc Pharmacy 39.8032; Globulin 1.9 g/dL (1.3-4.6); Glucose 107 mg/dL (65-115); Osmolality Calculated 290 mOsm/kg (285-295); Sodium 140 mmol/L (136-145); Total Bilirubin 1.6 mg/dL (0.15-1.2); Total Protein 5.3 g/dL (6.6-8.7)
[2024-01-08 11:19] LABS: Covid PCR NEGATIVE (Negative); Influenza A NEGATIVE (Negative); Influenza B NEGATIVE (Negative); Respiratory Syncytial Virus Ce NEGATIVE (Negative)
--- NOTE | 2024-01-08 11:19 | ECG_ITS ---
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 Measurements Intervals [place] Rate: 64 P: 34 NM: 169 QRS: -46 QRSD: 137 T: 7 QT: 452 QTc: 467 Interpretive Statements SINUS RHYTHM RIGHT BUNDLE BRANCH BLOCK [120+ ms QRS DURATION, UPRIGHT V1, 40+ ms S IN I/aVL/V4/V5/V6] LEFT ANTERIOR FASCICULAR BLOCK [QRS AXIS <= -45, QR IN I, RS IN II] VOLTAGE CRITERIA FOR LVH [MEETS CRITERIA IN ONE OF: R(aVL), S(V1), R(V5), R(V5/V6)+S(V1)] Compared to ECG 01/08/2024 09:04:00 No significant changes Electronically Signed On 01-10-2024 01:08:07 CDT by Philly Mijares M.D. [email or web address]
[2024-01-08 11:29] LABS: D Dimer 1.24 ug/mLFEU (0-0.59)
--- NOTE | 2024-01-08 11:32 | PC.NURSE ---
PT O2 SATURATIONS DROPPING INTO UPPER 80'S. PROVIDER KIERA SANDERS NOTIFIED AND AWARE.
--- NOTE | 2024-01-08 11:41 | CT_ITS ---
WS: [id number] CT CHEST ANGIOGRAPHY WITH REFORMATS HISTORY: hypoxia, elevated ddimer TECHNIQUE: Contiguous axial images are obtained through the chest during arterial injection of intrav enous contrast. Images are reconstructed to evaluate the pulmonary arteries. MIP imaging also reviewe d. All CT scans at [facility] use at least one of these dose optimization techniques: automat ed exposure control; mA and/or kV adjustment per patient size (includes targeted exams where dose is matched to clinical indication); or iterative reconstruction. CONTRAST: Omnipaque 350; 100 mL IV. DLP: 210.66 mGy.cm COMPARISON: 11/19/2023 No filling defects or pulmonary emboli. Pulmonary artery size is very slightly enlarged. Ectatic thor acic aorta. Mild enlargement of the heart. No pericardial effusion. Small RIGHT pleural effusion. No pneumonia. Dependent changes at the lung bases. Stomach is nearly completely intrathoracic with slight mass effect upon the posterior heart. No media stinal or hilar adenopathy. Thoracolumbar scoliosis. Osteopenia. Sclerotic focus in L1. CT/CT angio chest PE protcl [id number] IMPRESSION: 1. No pulmonary embolism. 2. Small RIGHT pleural effusion. 3. No pneumonia. 4. Stomach is nearly completely intrathoracic.
[2024-01-08] MEDS: iohexol 350 mg/mL 500 mL Btl (per mL) IV (12:56)
[2024-01-08 14:31] LABS: Salicylate 1.7 mg/dL (3-10); Thyroid Stimulating Hormone 3.14 uIU/mL (0.27-4.20)
[2024-01-08 14:31] LABS: Bilirubin Urine Negative (Negative); Blood Urine Non-haemolysed trace (Negative); Glucose Urine UA Negative (Normal); Ketones Urine Negative (Negative); Leukocyte Esterase Urine 3+ (Negative); Nitrate Urine Negative (Negative); Protein Urine Trace (Negative); Urine Appearance Cloudy (CLEAR); Urine Color Yellow (Yellow)
[2024-01-08 14:32] LABS: Acetaminophen < 5.0 ug/mL (10-30); Alcohol Level < 10 mg/dL (0-10)
[2024-01-08 14:33] LABS: Add Urine Microscopic? YES
[2024-01-08 14:38] LABS: Amphetamines Screen Urine Negative (Negative); Barbiturates Screen Urine Negative (Negative); Benzodiazepines Screen Urine Positive (Negative); Cocaine Screen Urine Negative (Negative); Opiate Screen Urine Positive (Negative); PCP Screen Urine Negative (Negative); THC Screen Urine Negative (Negative)
[2024-01-08 14:55] LABS: Specific Gravity, Urine 1.033 (1.005-1.030)
[2024-01-08 14:56] LABS: UA Slide Review UA Slide Review Perf
[2024-01-08 14:58] LABS: Add Urine Culture? Yes; Squamous Epithelial Cell Urine 0-4 /hpf (0-5); UA Manual Slide Review YES; WBC Urine TOO NUMEROUS TO CNT /hpf (0-5)
--- NOTE | 2024-01-08 15:19 | ECG_ITS ---
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 Measurements Intervals [place] Rate: 64 P: 28 [place]: 169 QRS: -47 QRSD: 130 T: -5 QT: 435 QTc: 451 Interpretive Statements SINUS RHYTHM RIGHT BUNDLE BRANCH BLOCK [120+ ms QRS DURATION, UPRIGHT V1, 40+ ms S IN I/aVL/V4/V5/V6] LEFT ANTERIOR FASCICULAR BLOCK [QRS AXIS <= -45, QR IN I, RS IN II] VOLTAGE CRITERIA FOR LVH [MEETS CRITERIA IN ONE OF: R(aVL), S(V1), R(V5), R(V5/V6)+S(V1)] POSSIBLE ANTEROSEPTAL MYOCARDIAL INFARCTION , OF INDETERMINATE AGE [30 ms Q WAVE IN V1-V4] Compared to ECG 01/08/2024 11:10:33 Myocardial infarct finding now present Electronically Signed On 01-10-2024 01:08:04 CDT by Philly Mijares M.D. [id number]
--- NOTE | 2024-01-08 15:28 | PC.NURSE ---
PT MADE STATEMENTS TO THIS NURSE THAT SHE WISHES THE [facility] WOULD TAKE HER ALREADY PATIENT STATES SHE IS TIRED AND NO LONGER WANTS TO BE HERE. KIERA SANDERS NOTIFIED.
--- NOTE | 2024-01-08 15:36 | PC.NURSE ---
PATIENT MOVED TO PSYCH ROOM 8. PATIENT STATES WHY IS IT SO DIFFICULT TO LEAVE THIS EARTH? PATIENT MADE COMFORTABLE IN BED.
[2024-01-08] MEDS: cefTRIAXone 1,000 mg SDV 1000 MG IVP (16:31)
[2024-01-08 16:34] LABS: Troponin 5 6HR 33.43 ng/L (0-10)
[2024-01-08 16:36] LABS: Troponin 5 6HR Delta -1.57 ng/L (0-12)
[2024-01-08] MEDS: LORazepam 2 mg/mL INJ 1 mL 0.5 MG IVP (16:53)
--- NOTE | 2024-01-08 18:57 | PC.NURSE ---
This nurse assumed care at shift change from Juany DONAHUE.
--- NOTE | 2024-01-08 19:21 | PC.NURSE ---
[facility] denied pt d/t being too medically acute
[2024-01-09] VITALS (10 sets, daily range): BP systolic 165–174; BP diastolic 66–72; PULSE 56–73; RESP 14–19; O2SAT 91–97
[2024-01-09] MEDS: oxyCODONE 5 mg IR Tab/Cap 10 MG PO ×2 (02:29→05:32)
[2024-01-09] MEDS: LORazepam 0.5 mg Tablet PO (02:41)
== END 2024-01-09 09:22 ==
PROVIDERS: Emergency Provider Physician Assistant; PCP Family Medicine
DX: N39.0 Urinary tract infection, site not specified (principal); G89.29 Other chronic pain; M54.6 Pain in thoracic spine; F32.A Depression, unspecified; Z11.52 Encounter for screening for COVID-19; Z87.891 Personal history of nicotine dependence; I10 Essential (primary) hypertension; I25.118 Atherosclerotic heart disease of native coronary artery with other forms of angina pectoris; I25.2 Old myocardial infarction; E78.5 Hyperlipidemia, unspecified
CPT/HCPCS: 0241U; 36415; 71045; 71275; 72072; 80053; 80306; 80307; 81001; 84443; 84484; 85025; 85378; 87086; 93005; 96374; 96375; 99285; J0696; J2060; J2270

== ENCOUNTER 2024-01-09 10:28 | Emergency (ER) | payer MEDICARE, SELFPAY ==
[2024-01-09 10:33] VITALS: PULSE 56; RESP 16; TEMP 36.9; O2SAT 98; BMI 27.3
--- NOTE | 2024-01-09 10:37 | XRR_ITS ---
PROCEDURE INFORMATION: Exam: XR Chest Exam date and time: 01/09/2024 11:04 AM Age: 78 years old Clinical indication: Cough and dyspnea; Additional info: Dyspnea/cough TECHNIQUE: Imaging protocol: Radiologic exam of the chest. Views: 1 view. COMPARISON: CT angio chest PE protcl [id number] 01/08/2024 12:42 PM FINDINGS: Lungs: See Heart/Mediastinum finding. Pleural spaces: Trace bilateral pleural fluid is again seen. No pneumothorax. Heart/Mediastinum: Hiatal hernia with adjacent compressive atelectasis in the left lung base re-identified. Stable cardiomediastinal silhouette. Bones/joints: Mild S-shaped curvature of the spine and multilevel degenerative changes seen. XR/XR chest 1V portable [id number] IMPRESSION: 1. Streaky left basilar atelectasis. Pneumonia should be considered in the adequate clinical setting. 2. Trace bilateral pleural effusions.
--- NOTE | 2024-01-09 10:37 | ED_ITS ---
HPI - Chest Pain General: Chief Complaint: Chest Pain Stated Complaint: Chest Pain Time Seen by Provider: 01/09/24 10:36 History of Present Illness: 78-year-old female who was seen yesterda y in the emergency room and had chest discomfort CTA chest was negative cardiac enzymes troponins did not show significant abnormalities baseline troponin is elevated but has been chronic and at her baseline. Did not show a significant delta. She did make comments about harming herself we ultimately made arrangements for transportation to [facility]. Patient admitted picked up and was being transported is about 20 miles from the hospital began complaining of chest pain again EMS contacted us we advised him to return to the emergency room here. When she arrives here she is not having any further chest pain. Associated symptoms: Deny abdominal pain, dyspnea or fever(s) Related Data Home Medications Medication Instructions Recorded Confirmed calcium 600 mg (as carbonate)-vit 1 tab PO DAILY 03/28/19 01/09/24 D3 10 mcg (400 unit) chewable tablet (Calcium 600 with Vitamin D3) cyanocobalamin (vitamin B-12) 1,000 mcg PO DAILY 03/28/19 01/09/24 1,000 mcg tablet (Vitamin B-12) albuterol sulfate 90 mcg/actuation 2 puff inhalation Q6H PRN 07/24/22 01/09/24 aerosol inhaler Shortness Of Breath Or Wheezing atorvastatin 40 mg tablet 40 mg PO BEDTIME 07/24/22 01/09/24 oxycodone 10 mg tablet 10 - 20 mg PO Q4H PRN Pain, 11/19/23 01/09/24 Moderate ropinirole 1 mg tablet 0.5 mg PO BEDTIME 11/19/23 01/09/24 budesonide-formoterol HFA 160 2 puff inhalation BID 12/09/23 01/09/24 mcg-4.5 mcg/actuation aerosol inhaler (Symbicort) multivitamin 1 tab PO DAILY 01/08/24 01/09/24 ondansetron 4 mg disintegrating 4 mg PO Q8H PRN Nausea And Vomiting 01/09/24 01/09/24 tablet Previous Rx's Medication Instructions Recorded Budin Hammer Toe Income Auditor #1 ea 10/03/22 pantoprazole 40 mg tablet,delayed 40 mg PO BID #60 tabs 12/14/23 release sennosides 8.6 mg tablet (senna) 17.2 mg (2 x 8.6 mg) PO BID #60 12/14/23 tabs sucralfate 1 gram tablet 1 g PO AC&BEDTIME #120 tabs 12/14/23 sertraline 25 mg tablet 25 mg PO DAILY #100 tabs 12/31/23 trazodone 50 mg tablet 25 mg (1/2 x 50 mg) PO QPM PRN 01/05/24 insomnia #4 tabs Allergies Allergy/AdvReac Type Severity Reaction Status Date / Time No Known Allergies Allergy Verified 01/04/24 19:29 Review of Systems Const: Denies: fever(s) or chills Card: Reports: chest pain Resp: Denies: dyspnea GI: Denies: abdominal pain : Denies: dysuria, urinary frequency or urinary urgency Musc: Denies: neck pain or back pain Skin/Breast: Denies: rash PFSH ED PFSH: Medical History Anemia of unknown etiology Depression, major Constipation 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 on CT 12/17 Large hiatal hernia Exocrine pancreatic insufficiency Renal insufficiency Hiatal hernia with GERD Hypothyroidism Enrolled in chronic care management Right knee DJD Osteoporosis Greater trochanteric bursitis Diarrhea Urinary retention Atherosclerotic heart disease of [place] coronary artery with other forms of angina pectoris Abnormal cardiovascular stress test NSTEMI (non-ST elevated myocardial infarction) Hyperlipidemia Hypertension Urgency incontinence Past heart attack Long-term current use of opiate analgesic Pain management contract signed Restless legs syndrome Fibromyalgia Chronic low back pain Dr. Benavidez Rxes pain meds Surgical History History of mandibular surgery R jaw--has titanium plate; done for tumor--benign History of bowel resection benign growth H/O ileostomy Hx of appendectomy (~1973) Hx of hysterectomy (~1973) still has ovaries; had hyst due to bleeding; no cancer History of reversal of ileostomy Hx of tubal ligation Hx of foot surgery (~11/2013) RIGHT FOOT Family History Brother , BONE METS Cancer COLON CANCER Mother Heart disease Family history of thyroid problem Grandmother Heart disease Father Hyperlipidemia Bone cancer Social History (Reviewed 01/08/24 @ 09:42 by JESSIE Cantu Smoking and tobacco/nicotine status: former use of tobacco/nicotine Quit status (tobacco/nicotine): has quit using Year quit tobacco: quit 1989 Second hand smoke exposure: No Alcohol intake: never Substance/Drug Use: never Lives independently: Yes Household members: none Marital status: / Number of children: 3 Highest education level completed: Some College, No Degree Current occupational status: retired 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 Physical Exam Const: COMMON NORMALS: no acute distress GENERAL APPEARANCE: cooperative and comfortable ORIENTATION/CONSCIOUSNESS: Yes awake HENMT: COMMON NORMALS: normocephalic, atraumatic and hearing grossly normal bilaterally HEAD & SCALP: normocephalic and atraumatic Resp: COMMON NORMALS: normal respiratory effort, No retractions, No use of accessory muscles and clear to auscultation bilaterally AUSCULTATION: clear to auscultation bilaterally Cardio: COMMON NORMALS: regular rate, regular rhythm and No murmurs present (Cardio) RATE: regular rate RHYTHM: regular rhythm GI: COMMON NORMALS: Soft to palpation and No hepatosplenomegaly present AUSCULTATION: Yes normoactive bowel sounds PALPATION: Yes Soft to palpation, No Tenderness to palpation present (GI), No Guarding due to palpation present (GI) and Yes No hepatosplenomegaly present Extremity: COMMON NORMALS: normal to inspection, capillary refill normal, no clubbing, cyanosis or edema, no calf tenderness and no pedal edema Skin: COMMON NORMALS: no rashes or lesions noted GENERAL SKIN EXAM: no rashes or lesions noted Course Vital Signs: Vital signs: Vital Signs Temperature 98.4 F 01/09/24 10:33 Pulse Rate 55 L 01/09/24 12:47 Respiratory Rate 16 01/09/24 10:33 Blood Pressure 166/66 01/09/24 12:47 Pulse Oximetry 94 01/09/24 12:47 Oxygen Delivery Me thod Room Air 01/09/24 10:33 MDM - Chest Pain Medical Decision Making Troponins and EKG unremarkable. Suspect patient's complaint of chest pain is due to her large hiatal hernia. Will go ahead and complete the transfer as scheduled. Lab Data Radiology Impressions Chest X-Ray 01/09/24 10:37 IMPRESSION: 1. Streaky left basilar atelectasis. Pneumonia should be considered in the adequate clinical setting. 2. Trace bilateral pleural effusions. Laboratory Results Troponin T Baseline 33 ng/L (0-10) H 01/09/24 10:50 Troponin T 120 Minute 27.89 ng/L (0-10) H 01/09/24 12:01 Delta Troponin T -5.11 ABS# (0-10) L 01/09/24 12:01 All radiology interpretation(s) finalized by discharge Discharge Plan Discharge Patient Disposition: Xfer Psychiatric Hosp Clinical Impression: Atypical chest pain, Hiatal hernia with GERD Condition: Stable Referrals: Jannet Cisse MD [Primary Care Provider] - Coding Level of Care Code ED [employer] for Gemma Church
--- NOTE | 2024-01-09 10:38 | ECG_ITS ---
[employer] Test Date: 2024-01-09 Pat Name: Ivan Peguero Department: Room: Gender: Female Shake Maker: : 1945 Requested By: Art Angel Order Number: [id number] Soledad MD: Philly Mijares M.D. Measurements Intervals [place] Rate: 56 P: 32 MT: 162 QRS: -26 QRSD: 136 T: -46 QT: 431 QTc: 419 Interpretive Statements SINUS BRADYCARDIA BORDERLINE LEFT AXIS DEVIATION [QRS AXIS < -20] RIGHT BUNDLE BRANCH BLOCK [120+ ms QRS DURATION, UPRIGHT V1, 40+ ms S IN I/aVL/V4/V5/V6] VOLTAGE CRITERIA FOR LVH [MEETS CRITERIA IN ONE OF: R(aVL), S(V1), R(V5), R(V5/V6)+S(V1)] MODERATE T-WAVE ABNORMALITY, CONSIDER INFERIOR ISCHEMIA [-0.1+ mV T-WAVE IN II/aVF] Compared to ECG 01/08/2024 15:46:40 T-wave abnormality now present.Possible ischemia now present Sinus rhythm no longer present. Left anterior fascicular block no longer present Myocardial infarct finding no longer present Electronically Signed On 01-09-2024 16:42:46 CDT by Philly Mijares M.D. [email or web address]
[2024-01-09 11:20] LABS: Troponin(5th) Baseline 33 ng/L (0-10)
--- NOTE | 2024-01-09 11:29 | PC.NURSE ---
[facility] CALLED ABOUT PATIENT RETURN TO ER FOR CHEST PAIN. STILL ACCEPTING PATIENT.
--- NOTE | 2024-01-09 12:40 | PC.NURSE ---
[facility] left facility at approx [phone]
[2024-01-09 12:47] VITALS: BP 166/66; PULSE 55; O2SAT 94
[2024-01-09 12:52] LABS: Troponin 5 2HR 27.89 ng/L (0-10)
[2024-01-09 12:54] LABS: Troponin 5 2HR Delta -5.11 ABS# (0-10)
== END 2024-01-09 12:49 ==
PROVIDERS: Emergency Provider Family Medicine; PCP Family Medicine
DX: K44.9 Diaphragmatic hernia without obstruction or gangrene (principal); K21.9 Gastro-esophageal reflux disease without esophagitis; R07.89 Other chest pain; I10 Essential (primary) hypertension; Z87.891 Personal history of nicotine dependence; I25.10 Atherosclerotic heart disease of native coronary artery without angina pectoris; I25.2 Old myocardial infarction; E78.5 Hyperlipidemia, unspecified
CPT/HCPCS: 36415; 71045; 84484; 93005; 99285

== ENCOUNTER 2024-02-11 14:55 | Emergency (ER) | payer MEDICARE, SELFPAY ==
[2024-02-11] VITALS (7 sets, daily range): BP systolic 96–151; BP diastolic 50–75; PULSE 62–77; RESP 17–18; TEMP 37.5; O2SAT 91–97; BMI 21.4
--- NOTE | 2024-02-11 17:58 | ED_ITS ---
HPI - Extremity Problem 2 General: Chief complaint: Extremity Problem,Nontraumatic Stated complaint: R hand swelling Time Seen by Provider: 02/11/24 17:38 History of Present Illness: Patient planes of right hand pain and swelling x 2 days. This is to the dorsum of the hand it is very edematous warmth and swollen. Patient has her arm in a splint due to pain. Related Data Home Medications Medication Instructions Recorded Confirmed calcium 600 mg (as carbonate)-vit 1 tab PO DAILY 03/28/19 01/09/24 D3 10 mcg (400 unit) chewable tablet (Calcium 600 with Vitamin D3) cyanocobalamin (vitamin B-12) 1,000 mcg PO DAILY 03/28/19 01/09/24 1,000 mcg tablet (Vitamin B-12) albuterol sulfate 90 mcg/actuation 2 puff inhalation Q6H PRN 07/24/22 01/09/24 aerosol inhaler Shortness Of Breath Or Wheezing atorvastatin 40 mg tablet 40 mg PO BEDTIME 07/24/22 01/09/24 oxycodone 10 mg tablet 10 - 20 mg PO Q4H PRN Pain, 11/19/23 01/09/24 Moderate ropinirole 1 mg tablet 0.5 mg PO BEDTIME 11/19/23 01/09/24 budesonide-formoterol HFA 160 2 puff inhalation BID 12/09/23 01/09/24 mcg-4.5 mcg/actuation aerosol inhaler (Symbicort) multivitamin 1 tab PO DAILY 01/08/24 01/09/24 ondansetron 4 mg disintegrating 4 mg PO Q8H PRN Nausea And Vomiting 01/09/24 01/09/24 tablet Previous Rx's Medication Instructions Recorded Budin Hammer Toe Regulatory Attorney #1 ea 10/03/22 pantoprazole 40 mg tablet,delayed 40 mg PO BID #60 tabs 12/14/23 release sennosides 8.6 mg tablet (senna) 17.2 mg (2 x 8.6 mg) PO BID #60 12/14/23 tabs sucralfate 1 gram tablet 1 g PO AC&BEDTIME #120 tabs 12/14/23 sertraline 25 mg tablet 25 mg PO DAILY #100 tabs 12/31/23 trazodone 50 mg tablet 25 mg (1/2 x 50 mg) PO QPM PRN 01/05/24 insomnia #4 tabs meloxicam 7.5 mg tablet 7.5 mg PO .Twice daily #14 tabs 02/11/24 prednisone 50 mg tablet 50 mg PO DAILY #5 tabs 02/11/24 Allergies Allergy/AdvReac Type Severity Reaction Status Date / Time No Known Allergies Allergy Verified 01/04/24 19:29 PFSH ED 2 PFSH: Medical History Anemia of unknown etiology Depression, major Constipation 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 on CT 12/17 Large hiatal hernia Exocrine pancreatic insufficiency Renal insufficiency Hiatal hernia with GERD Hypothyroidism Enrolled in chronic care management Right knee DJD Osteoporosis Greater trochanteric bursitis Diarrhea Urinary retention Atherosclerotic heart disease of [place] coronary artery with other forms of angina pectoris Abnormal cardiovascular stress test NSTEMI (non-ST elevated myocardial infarction) Hyperlipidemia Hypertension Urgency incontinence Past heart attack Long-term current use of opiate analgesic Pain management contract signed Restless legs syndrome Fibromyalgia Chronic low back pain Dr. Benavidez Rxes pain meds Surgical History History of mandibular surgery R jaw--has titanium plate; done for tumor--benign History of bowel resection benign growth H/O ileostomy Hx of appendectomy (~1973) Hx of hysterectomy (~1973) still has ovaries; had hyst due to bleeding; no cancer History of reversal of ileostomy Hx of tubal ligation Hx of foot surgery (~11/2013) RIGHT FOOT Family History Brother , BONE METS Cancer COLON CANCER Mother Heart disease Family history of thyroid problem Grandmother Heart disease Father Hyperlipidemia Bone cancer Social History Smoking and tobacco/nicotine status: former use of tobacco/nicotine Quit status (tobacco/nicotine): has quit using Year quit tobacco: quit 1989 Second hand smoke exposure: No Alcohol intake: never Substance/Drug Use: never Lives independently: Yes Household members: none Marital status: / Number of children: 3 Highest education level completed: Some College, No Degree Current occupational status: retired 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 Physical Exam 2 Const: COMMON NORMALS: no acute distress, average body habitus, patient oriented x3, no limitations, healthy appearing, alert and well nourished HENMT: COMMON NORMALS: normocephalic, atraumatic, hearing grossly normal bilaterally, external ears normal, Normal external nose present and moist oral mucous membranes HEAD & SCALP: normocephalic and atraumatic NOSE: Normal external nose present EXTERNAL EAR: Yes external ears normal Neck/C-Spine: COMMON NORMALS: no JVD Chest: COMMONS NORMALS: normal inspection of the chest and normal palpation of entire chest wall Resp: COMMON NORMALS: normal respiratory effort, No retractions, No use of accessory muscles and clear to auscultation bilaterally AUSCULTATION: clear to auscultation bilaterally Cardio: COMMON NORMALS: no JVD, regular rate, regular rhythm, S1 normal heart sound present, S2 normal heart sound present, No gallops present (Cardio), No clicks present (Cardio), No murmurs present (Cardio) and No rub (Cardio) R ATE: regular rate RHYTHM: regular rhythm HEART SOUNDS: S1 normal heart sound present and S2 normal heart sound present GI: COMMON NORMALS: Normal to inspection, nondistended, normoactive bowel sounds present, Soft to palpation, non-tender, No hepatosplenomegaly present and no masses PALPATION: Yes Soft to palpation and Yes No hepatosplenomegaly present Extremity: NARRATIVE EXTREMITY EXAM: Dorsum of right hand red swollen tender. Neuro: COMMON NORMALS: patient oriented x3 SENSORIUM/ORIENTATION: Yes alert Course 2 Vital Signs: Vital signs: Vital Signs Temperature 99.5 F 02/11/24 14:57 Pulse Rate 70 02/11/24 18:12 Respiratory Rate 18 02/11/24 14:57 Blood Pressure 151/66 02/11/24 18:12 Pulse Oximetry 97 02/11/24 18:12 Oxygen Delivery Me thod Room Air 02/11/24 18:12 MDM - Extremity (Nontraumatic) Medical Decision Making Patient had lab work was essentially unremarkable other than elevated uric acid level at 8.1. Patient was given Toradol 30 mg IM and prednisone 40 mg p.o. and a prescription for prednisone and meloxicam to go home on. Lab Data 02/11/24 17:50 02/11/24 17:50 Radiology Impressions Hand X-Ray 02/11/24 18:32 IMPRESSION: Marked soft tissue swelling without underlying osseous abnormality. Laboratory Results WBC 11.48 10^3/uL (3.29-11.43) H 02/11/24 17:50 RBC 4.57 10^6/uL (3.85-5.65) 02/11/24 17:50 Hgb 12.60 g/dL (11.27-16.99) 02/11/24 17:50 Hct 39.5 % (36-47) 02/11/24 17:50 MCV 86.4 fl (85-98) 02/11/24 17:50 MCH 27.6 pg (27-33) 02/11/24 17:50 MCHC 31.9 g/dL (30-55) 02/11/24 17:50 RDW 15.6 % (12.1-15.1) H 02/11/24 17:50 Plt Count 313 10^3/cmm (157-399) 02/11/24 17:50 MPV 10.6 fL (7.4-10.4) H 02/11/24 17:50 Neut % (Auto) 70.9 % 02/11/24 17:50 Lymph % (Auto) 17.8 % 02/11/24 17:50 [place] % (Auto) 9.8 % 02/11/24 17:50 Eos % (Auto) 1.0 % 02/11/24 17:50 Baso % (Auto) 0.2 % 02/11/24 17:50 Neut # (Auto) 8.16 10^3/uL (1.8-7.7) H 02/11/24 17:50 Lymph # (Auto) 2.0 10^3/uL (0.8-4.8) 02/11/24 17:50 [place] # (Auto) 1.1 10^3/uL (0.2-0.9) H 02/11/24 17:50 Eos # (Auto) 0.1 10^3/uL (0.0-0.8) 02/11/24 17:50 Baso # (Auto) 0.0 10^3/uL (0.0-0.1) 02/11/24 17:50 Nucleated RBC % (auto) 0 % 02/11/24 17:50 Nucleated RBCs # 0.0 /100WBC 02/11/24 17:50 Sodium 133 mmol/L (136-145) L 02/11/24 17:50 Potassium 3.5 mmol/L (3.5-5.1) 02/11/24 17:50 Chloride 95 mmol/L (98-107) L 02/11/24 17:50 Carbon Dioxide 26 mmol/L (22-29) 02/11/24 17:50 Anion Gap 15.5 (5-19) 02/11/24 17:50 BUN 13 mg/dL (8-23) 02/11/24 17:50 Creatinine 1.0 mg/dL (0.5-0.9) H 02/11/24 17:50 GFR Calculation Not Reportable 02/11/24 17:50 Glucose 117 mg/dL (65-115) H 02/11/24 17:50 Calculated Osmolality 277 mOsm/kg (285-295) L 02/11/24 17:50 Lactic Acid 1.4 mmol/L (0.5-2.2) 02/11/24 19:39 Uric Acid 8.1 mg/dL (2.4-5.7) H 02/11/24 17:50 Calcium 10.5 mg/dL (8.5-10.5) 02/11/24 17:50 Total Bilirubin 1.5 mg/dL (0.15-1.2) H 02/11/24 17:50 AST 16 U/L (0-32) 02/11/24 17:50 ALT < 5 U/L (0-33) 02/11/24 17:50 Alkaline Phosphatase 74 U/L (35-105) 02/11/24 17:50 Total Protein 7.0 g/dL (6.6-8.7) 02/11/24 17:50 Albumin 3.7 g/dL (3.5-5.2) 02/11/24 17:50 Globulin 3.3 g/dL (1.3-4.6) 02/11/24 17:50 All radiology interpretation(s) finalized by discharge Discharge Plan Discharge Patient Disposition: Home Clinical Impression: Gout Qualifiers: Gout site: hand Encounter type: initial encounter Chronicity: acute Laterality: right Condition: Stable Prescriptions: New meloxicam 7.5 mg tablet 7.5 mg PO .Twice daily Qty: 14 0RF prednisone 50 mg tablet 50 mg PO DAILY Qty: 5 0RF No Action sertraline 25 mg tablet 25 mg PO DAILY Qty: 100 0RF (DME) Budelver Hammer Toe Regulatory Attorney See Rx Instructions .Route .MEDSUPPLY Qty: 1 0RF Rx Instructions: As directed by HOME cyanocobalamin (vitamin B-12) [Vitamin B-12] 1,000 mcg Tablet 1,000 mcg PO DAILY Calcium 600 with Vitamin D3 600 mg(1,500mg) -400 unit Tablet,Chewable 1 tab PO DAILY atorvastatin 40 mg tablet 40 mg PO BEDTIME albuterol sulfate 90 mcg/actuation HFA aerosol inhaler 2 puff inhalation Q6H PRN (Reason: Shortness Of Breath Or Wheezing) budesonide-formoterol [Symbicort] 160-4.5 mcg/actuation HFA aerosol inhaler 2 puff INHALATION BID pantoprazole 40 mg Tablet,Delayed Release (Dr/Ec) 40 mg PO BID Qty: 60 0RF sennosides [senna] 8.6 mg Tablet 17.2 mg PO BID Qty: 60 0RF sucralfate 1 gram Tablet 1 g PO AC&BEDTIME Qty: 120 0RF trazodone 50 mg tablet 25 mg PO QPM PRN (Reason: insomnia) Qty: 4 0RF ondansetron 4 mg tablet,disintegrating 4 mg PO Q8H PRN (Reason: Nausea And Vomiting) ropinirole 1 mg tablet 0.5 mg PO BEDTIME oxycodone 10 mg tablet 10 - 20 mg PO Q4H PRN (Reason: Pain, Moderate) Rx Instructions: TAKE 1 TO 2 TABLETS BY MOUTH EVERY 4 TO 6 HOURS NEEDED FOR PAIN max 6 PER day multivitamin Tablet 1 tab PO DAILY Discharge Orders: Discharge ED (Routine); Ordered 02/11/24 Ordered By: Vijay Centeno Referrals: Jannet Cisse MD [Primary Care Provider] - 1 week Patient Instructions: Gout (ED) Activity Restrictions/Additional Instructions: 2 medicines have been called into your pharmacy please pick them up tomorrow and take them as directed. Uric acid level was high this is consistent with a gout attack. Please follow-up with your family practice physician for further evaluation and treatment. Coding Level of Care Code ED Analog Design Engineer for Gemma Church
[2024-02-11 17:59] LABS: Basophils % 0.2 %; Eosinophils # 0.1 10^3/uL (0.0-0.8); Hematocrit 39.5 % (36-47); Lymphocytes % 17.8 %; Mean Corpuscular HGB Conc 31.9 g/dL (30-55); Mean Corpuscular Hemoglobin 27.6 pg (27-33); Mean Corpuscular Volume 86.4 fl (85-98); Mean Platelet Volume 10.6 fL (7.4-10.4); Monocytes # 1.1 10^3/uL (0.2-0.9); Monocytes % 9.8 %; Neutrophils # 8.16 10^3/uL (1.8-7.7); Neutrophils % 70.9 %; Nucleated Red Blood Cells % 0 %; Platelet Count 313 10^3/cmm (157-399); Red Blood Count 4.57 10^6/uL (3.85-5.65); Red Cell Distribution Width 15.6 % (12.1-15.1); White Blood Count 11.48 10^3/uL (3.29-11.43)
[2024-02-11] MEDS: ketorolac 30 mg/mL INJ IM (18:10)
[2024-02-11 18:13] LABS: Alanine Aminotransferase < 5 U/L (0-33); Albumin Level 3.7 g/dL (3.5-5.2); Alkaline Phosphatase 74 U/L (35-105); Blood Urea Nitrogen 13 mg/dL (8-23); Calcium 10.5 mg/dL (8.5-10.5); Carbon Dioxide 26 mmol/L (22-29); Chloride 95 mmol/L (98-107); Creatinine Clr Calc Pharmacy 35.1481; Globulin 3.3 g/dL (1.3-4.6); Glucose 117 mg/dL (65-115); Osmolality Calculated 277 mOsm/kg (285-295); Sodium 133 mmol/L (136-145); Total Bilirubin 1.5 mg/dL (0.15-1.2)
[2024-02-11 18:18] LABS: Anion Gap 15.5 (5-19); Aspartate Amino Transferase 16 U/L (0-32); Potassium 3.5 mmol/L (3.5-5.1)
--- NOTE | 2024-02-11 18:32 | XRR_ITS ---
PROCEDURE INFORMATION: Exam: XR Right Hand Exam date and time: 02/11/2024 6:05 PM Age: 78 years old Clinical indication: Pain; Hand; Right; Additional info: Pain and swelling redness TECHNIQUE: Imaging protocol: Radiologic exam of the right hand. Views: 3 or more views. COMPARISON: CR XR hand RT min 3V* [id number] 06/04/2023 2:16 PM FINDINGS: Bones/joints: Moderate osseous demineralization. No evidence of acute fracture or dislocation. No cortical destruction or other plain film evidence of osteomyelitis. 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 Soft tissues: Marked soft tissue swelling. XR/XR hand RT min 3V* [id number] IMPRESSION: Marked soft tissue swelling without underlying osseous abnormality.
[2024-02-11 20:00] LABS: Uric Acid 8.1 mg/dL (2.4-5.7)
[2024-02-11 20:00] LABS: Lactic Sepsis W/Reflex 1.4 mmol/L (0.5-2.2)
[2024-02-11] MEDS: predniSONE 20 mg Tablet 40 MG PO (20:28)
== END 2024-02-11 20:37 | disposition home or self-care (01) ==
PROVIDERS: Family Medicine; Emergency Provider Emergency Medicine; PCP Family Medicine
DX: M10.9 Gout, unspecified (principal); Z87.891 Personal history of nicotine dependence; E78.5 Hyperlipidemia, unspecified; I10 Essential (primary) hypertension
CPT/HCPCS: 73130; 80053; 83605; 84550; 85025; 96372; 99284; J1885; J7512

== ENCOUNTER 2024-04-13 18:14 | Inpatient (IN) | payer MEDICARE, SELFPAY ==
[2024-04-13] VITALS (8 sets, daily range): BP systolic 178–226; BP diastolic 65–105; PULSE 60–82; RESP 13–22; TEMP 36.6; O2SAT 94–97; BMI 20.5
--- NOTE | 2024-04-13 18:20 | ECG_ITS ---
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1945 Requested By: Dangelo Cristina Order Number: [id number] Soledad MD: ARNOLD ALBERTS Measurements Intervals [place] Rate: 62 P: 53 PA: 141 QRS: -21 QRSD: 136 T: 0 QT: 269 QTc: 273 Interpretive Statements SINUS RHYTHM WITH FREQUENT VENTRICULAR PREMATURE COMPLEXES IN A BIGEMINAL PATTERN BORDERLINE LEFT AXIS DEVIATION [QRS AXIS < -20] RIGHT BUNDLE BRANCH BLOCK [120+ ms QRS DURATION, UPRIGHT V1, 40+ ms S IN I/aVL/V4/V5/V6] LEFT VENTRICULAR HYPERTROPHY AND ST-T CHANGE [VOLTAGE CRITERIA PLUS ST/T ABNORMALITY] Compared to ECG 01/09/2024 10:38:17 Ventricular premature complex(es) now present ST (T wave) deviation now present Electronically Signed On 04-14-2024 23:13:08 EMAIL MARKETING COORDINATOR by ARNOLD ALBERTS [id number]
[2024-04-13 19:12] LABS: Bilirubin Urine Negative (Negative); Blood Urine Negative (Negative); Glucose Urine UA Negative (Normal); Ketones Urine Negative (Negative); Leukocyte Esterase Urine Negative (Negative); Nitrate Urine Negative (Negative); Protein Urine 1+ (Negative); Specific Gravity, Urine 1.012 (1.005-1.030); Urine Appearance Clear (CLEAR); Urine Color Yellow (Yellow); Urobilinogen Urine 0.2 mg/dL (Negative); pH Urine 6.5 (5-7)
[2024-04-13] MEDS: sodium chloride 0.9% 1,000 ML 999 ML IV (19:12)
[2024-04-13] MEDS: morphine 4 mg/mL SDV 1 mL IVP (19:12)
[2024-04-13] MEDS: ondansetron 2 mg/ML SDV 2 mL 4 MG IVP (19:12)
[2024-04-13 19:17] LABS: Add Urine Microscopic? YES; Bacteria Urine None Seen /hpf; Hyaline Casts Urine 0-4 /lpf; RBC Urine 0-2 /hpf (0-2); Squamous Epithelial Cell Urine 0-5 /hpf (0-5); WBC Urine 0-5 /hpf (0-5)
[2024-04-13 19:24] LABS: Basophils % 0.4 %; Eosinophils # 0.4 10^3/uL (0.0-0.8); Eosinophils % 4.9 %; Hematocrit 45.8 % (36-47); Lymphocytes # 2.1 10^3/uL (0.8-4.8); Lymphocytes % 25.3 %; Mean Corpuscular HGB Conc 32.3 g/dL (30-55); Mean Corpuscular Hemoglobin 26.9 pg (27-33); Mean Corpuscular Volume 83.1 fl (85-98); Mean Platelet Volume 10.7 fL (7.4-10.4); Monocytes # 0.7 10^3/uL (0.2-0.9); Neutrophils # 5.11 10^3/uL (1.8-7.7); Neutrophils % 61.2 %; Nucleated Red Blood Cells % 0 %; Platelet Count 329 10^3/cmm (157-399); Red Blood Count 5.51 10^6/uL (3.85-5.65); White Blood Count 8.35 10^3/uL (3.29-11.43)
[2024-04-13 19:43] LABS: Alanine Aminotransferase 6 U/L (0-33); Albumin Level 3.9 g/dL (3.5-5.2); Alkaline Phosphatase 90 U/L (35-105); Anion Gap 16.8 (5-19); Aspartate Amino Transferase 18 U/L (0-32); Blood Urea Nitrogen 25 mg/dL (8-23); Calcium 10.1 mg/dL (8.5-10.5); Carbon Dioxide 28 mmol/L (22-29); Chloride 99 mmol/L (98-107); Creatinine Clr Calc Pharmacy 31.3395; Globulin 2.7 g/dL (1.3-4.6); Glucose 112 mg/dL (65-115); Lipase 21 U/L (13-60); Osmolality Calculated 297 mOsm/kg (285-295); Sodium 141 mmol/L (136-145); Total Bilirubin 0.9 mg/dL (0.15-1.2); Total Protein 6.6 g/dL (6.6-8.7)
[2024-04-13 19:49] LABS: Potassium 2.8 mmol/L (3.5-5.1)
--- NOTE | 2024-04-13 19:51 | ECG_ITS ---
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1945 Requested By: Dangelo Cristina Order Number: [id number] Reading MD: ARNOLD ALBERTS Measurements Intervals [place] Rate: 68 P: 62 PA: 160 QRS: -24 QRSD: 130 T: 264 QT: 418 QTc: 447 Interpretive Statements SINUS RHYTHM WITH FREQUENT VENTRICULAR PREMATURE COMPLEXES IN A BIGEMINAL PATTERN RIGHT BUNDLE BRANCH BLOCK [120+ ms QRS DURATION, UPRIGHT V1, 40+ ms S IN I/aVL/V4/V5/V6] VOLTAGE CRITERIA FOR LVH [MEETS CRITERIA IN ONE OF: R(aVL), S(V1), R(V5), R(V5/V6)+S(V1)] POSSIBLE ANTERIOR MYOCARDIAL INFARCTION , OF INDETERMINATE AGE [30 ms Q WAVE IN V3/V4, OR R < 0.2 mV IN V4] Compared to ECG 01/09/2024 10:38:17 Ventricular premature complex(es) now present Electronically Signed On 04-14-2024 23:12:52 HEART DOCTOR by ARNOLD ALBERTS [id number]
--- NOTE | 2024-04-13 20:19 | XRR_ITS ---
PROCEDURE INFORMATION: Exam: XR Chest Exam date and time: 04/13/2024 8:28 PM Age: 78 years old Clinical indication: Shortness of breath; Patient HX: Ex smoker; Additional info: Dizzy TECHNIQUE: Imaging protocol: Radiologic exam of the chest. Views: 1 view. COMPARISON: CR XR chest 1V portable [id number] 01/09/2024 11:04 AM FINDINGS: Lungs: Mild bibasilar linear atelectasis versus scarring. No consolidation. Pleural spaces: No substantial pleural effusion or pneumothorax. Heart/Mediastinum: Stable cardiomegaly. Large hiatal hernia. Vasculature: Aortic atherosclerotic calcification. Bones/joints: Degenerative changes along the spine. XR/XR chest 1V portable [id number] IMPRESSION: No acute findings.
[2024-04-13 20:43] LABS: Troponin(5th) Baseline 190 ng/L (0-10)
--- NOTE | 2024-04-13 20:52 | CTR_ITS ---
PROCEDURE INFORMATION: Exam: CTA Chest Without And With Contrast CTA Abdomen and Pelvis With Contrast Exam date and time: 04/13/2024 9:03 PM Age: 78 years old Clinical indication: Shortness of breath and hypotension; Prior surgery; Surgery date: 6+ months; Surgery type: HX of lieostomy and reversal, bowl resection, appy, hysterectomy, tubal; Additional info: R/O aortic dissection TECHNIQUE: Imaging protocol: Computed tomographic angiography of the chest without and with contrast. Exam focused on the arteries. Computed tomographic angiography of the abdomen and pelvis with contrast. Exam focused on the arteries. 3D rendering (Not supervised by radiologist): MIP and/or 3D reconstructed images were created by the technologist. Radiation optimization: All CT scans at this facility use at least one of these dose optimization techniques: automated exposure control; mA and/or kV adjustment per patient size (includes targeted exams where dose is matched to clinical indication); or iterative reconstruction. Contrast material: OMNI 350; Contrast volume: 100 ml; Contrast route: INTRAVENOUS (IV); COMPARISON: CT kidney stone [id number] 12/09/2023 9:31 PM RADIATION DOSE METRICS: Total DLP (mGy-cm): 576.1 FINDINGS: VASCULATURE: Pulmonary arteries: Normal. No pulmonary emboli. Aorta: Moderate systemic atherosclerosis without aortic aneurysm. No aortic dissection or evidence of intramural hematoma. Celiac trunk and mesenteric arteries: Redemonstrated large hiatal hernia containing majority of the stomach and portion of the pancreas as well as splenic artery. Renal arteries: No occlusion or significant stenosis. Right iliac arteries: No occlusion or significant stenosis. Left iliac arteries: No occlusion or significant stenosis. CHEST: Lungs: Mild platelike atelectasis versus scarring of the imaged lower lungs. Right lower lobe calcified granuloma. No consolidation. No masses. Pleural spaces: Unremarkable. No pneumothorax. No pleural effusion. Heart: Mild aortic valve calcification. No cardiomegaly. No pericardial effusion. Coronary arteries: Mild coronary artery calcification. ABDOMEN AND PELVIS: Liver: No mass. Gallbladder and biliary ducts: Unremarkable. No calcified stones. No ductal dilation. Pancreas: Unremarkable. No mass. No ductal dilation. Spleen: Unremarkable. No splenomegaly. Adrenal glands: Unremarkable. No mass. Kidneys and ureters: Mild bilateral pelviectasis without caliectasis. Developed moderate ilbi-mlwhqkv-pvjp-right perirenal fat stranding/edema. Left renal scarring. Right renal subcentimeter hypodensity too small to characterize and statistically likely benign and requires no dedicated imaging follow-up. Otherwise unremarkable. Stomach and bowel: No bowel dilatation to suggest obstruction. Stable postsurgical change. Appendix: Surgically absent. Intraperitoneal space: Unremarkable. No free air. No significant fluid collection. Urinary bladder: Unremarkable. No mass. Reproductive: The uterus is surgically absent. Lymph nodes: No enlarged lymphadenopathy. Calcified mediastinal and right hilar lymph nodes in keeping with sequela of old granulomatous disease. Bones/joints: No acute fracture. Biphasic spinal curvature with moderate levoconvexity of the thoracolumbar spine. Degenerative change along the spine and pubic symphysis. Stable nonaggressive sclerotic focus at the right L1 vertebral body. Soft tissues: Lower ventral abdominal wall postsurgical scarring. Mild broad right ventral abdominal wall hernia containing nondilated, non thickened bowel. CT/CT [facility] [id number] IMPRESSION: 1. No aortic dissection or evidence of intramural hematoma. 2. Mild bilateral renal pelviectasis without caliectasis and developed moderate vvxh-lkvzhjv-rkpj-right perirenal fat stranding/edema. Correlate for pyelonephritis. 3. Large hiatal hernia containing majority of the stomach and portion of the pancreas as well as splenic artery. 4. Additional chronic and incidental findings as above.
[2024-04-13 20:53] LABS: NT Pro B Type Natriuretic Pept 1706 pg/mL (0-450)
[2024-04-13] MEDS: iohexol 350 mg/mL 500 mL Btl (per mL) IV (21:05)
[2024-04-13] MEDS: aspirin 81 mg Chew Tablet 324 MG PO (21:26)
[2024-04-13] MEDS: nitroglycerin 0.4 mg sublingual Tablet SUBLINGUAL (21:26)
--- NOTE | 2024-04-13 21:33 | PC.NURSE ---
1940: Patient assisted to the bedside commode by this nurse. Patient called back into room by the patient's daughter at bedside. Patient states that while on the bedside commode she began to feel dizzy, short of breath and like she was going to pass out. Patient assisted back into bed. A run of vtach noted on telemetry at the time patient was on bedside commode. A new EKG preformed and Dr. Cristina notified. No new orders at this time.
[2024-04-13] MEDS: prochlorperazine 10 mg/2 mL Inj 5 MG IVP (21:47)
[2024-04-13] MEDS: nitroglycerin drip 50 MG/250 ML PREMIX IV (21:51)
--- NOTE | 2024-04-13 21:51 | PC.NURSE ---
this nurse started nitro drip @10mcg/min. ROWAN Andrade was in room with me, 2 nurse verified.
--- NOTE | 2024-04-13 21:52 | P.CONIM_ITS ---
Providers/Reason For Consult 2 Consulting Physician/Specialty*: Estela Corado MD Reason for Consult*: Ventricular tachycardia Non-ST elevation MD Primary Care Provider: Lynda Lopez MD History of Present Illness History of Present Illness Ivan Peguero is a 78 year old female past medical history significant for hiatal hernia anemia with renal insufficiency hypothyroidism mitral regurgitation non-smoker nondiabetic presented with complaint of not feeling well and nausea. In the ER she was noted to have multiple PVCs including bigeminy, later she had witnessed polymorphic VT on the monitor, she also started complaining of chest pain radiating towards the back. Patient was sent for CT abdomen thorax to rule out aortic dissection while laying on the CT scan patient passed out with seizure-like activity unfortunately she was not on monitor therefore cannot say for sure whether she had VT on not, later in the ER she constantly remained in bigeminal rhythm with multiple PVCs with complaint of chest pain, I was called by our ER physician to come and see the patient. I saw the patient in the ER she has nonspecific atypical symptoms including chest pressure, she is ruled in for non-ST elevation MD and exhibiting multiple PVCs, her potassium is low in the range of 2.8. Advised replenishing potassium along with magnesium now. Given polymorphic VT chest pressure and non-ST elevation MD with atypical symptoms we will proceed with early invasive strategy, patient was DNR/DNI, I discussed with the family and the patient at the bedside that we cannot perform procedure if she is DNR/DNI, other option is to treat her medically, after discussion with her daughters patient decided to suspend the DNR DNI in operative and perioperative. Review of Systems 2 Eyes: Denies: photophobia ENMT: Denies: enlarged tonsils Musc: Denies: joint warmth Skin/Breast: Reports: surgical incision Medications/Allergies Home Medications Medication Instructions Recorded Confirmed Last Taken Type calcium 600 mg (as carbonate)-vit 1 tab PO DAILY 03/28/19 01/09/24 01/07/24 History D3 10 mcg (400 unit) chewable tablet (Calcium 600 with Vitamin D3) albuterol sulfate 90 mcg/actuation 2 puff inhalation Q6H PRN 07/24/22 01/09/24 06/21/23 History aerosol inhaler Shortness Of Breath Or Wheezing 0530 atorvastatin 40 mg tablet 40 mg PO BEDTIME 07/24/22 01/09/24 01/07/24 History Budin Hammer Toe Die Maker Bench Stamping #1 ea 10/03/22 01/09/24 Unknown Rx oxycodone 10 mg tablet 10 - 20 mg PO Q4H PRN Pain, 11/19/23 01/09/24 01/07/24 History Moderate ropinirole 1 mg tablet 0.5 mg PO BEDTIME 11/19/23 01/09/24 01/07/24 History budesonide-formoterol HFA 160 2 puff inhalation BID 12/09/23 01/09/24 01/07/24 History mcg-4.5 mcg/actuation aerosol inhaler (Symbicort) pantoprazole 40 mg tablet,delayed 40 mg PO BID #60 tabs 12/14/23 01/09/24 01/07/24 Rx release sennosides 8.6 mg tablet (senna) 17.2 mg (2 x 8.6 mg) PO BID #60 12/14/23 01/09/24 01/07/24 Rx tabs sucralfate 1 gram tablet 1 g PO AC&BEDTIME #120 tabs 12/14/23 01/09/24 01/07/24 Rx trazodone 50 mg tablet 25 mg (1/2 x 50 mg) PO QPM PRN 01/05/24 01/09/24 01/07/24 Rx insomnia #4 tabs multivitamin 1 tab PO DAILY 01/08/24 01/09/24 01/07/24 History ondansetron 4 mg disintegrating 4 mg PO Q8H PRN Nausea And Vomiting 01/09/24 01/09/24 Unknown History tablet prednisone 50 mg tablet 50 mg PO DAILY #5 tabs 02/11/24 Unknown Rx sertraline 25 mg tablet 25 mg PO DAILY #100 tabs 02/15/24 Unknown Rx meloxicam 7.5 mg tablet 7.5 mg PO .Twice daily #14 tabs 03/06/24 Unknown Rx cyanocobalamin (vitamin B-12) 1,000 mcg PO DAILY #90 tabs 03/28/24 Unknown Rx 1,000 mcg tablet (Vitamin B-12) Allergies Allergy/AdvReac Type Severity Reaction Status Date / Time No Known Allergies Allergy Verified 01/04/24 19:29 Current Medications Generic Name Dose Route Start Last Admin Trade Name Freq PRN Reason Stop Dose Admin Nitroglycerin/Dextrose 50 mg in 250 mls @ 0 mls/hr 04/13/24 21:30 04/13/24 21:51 Nitroglycerin Drip IV 10 mcg/min .Q0M KAMERON 3 mls/hr Administration Protocol Per Protocol PFSH Acute 2 PFSH: Medical History Anemia of unknown etiology Depression, major Constipation 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 on CT 12/17 Large hiatal hernia Exocrine pancreatic insufficiency Renal insufficiency Hiatal hernia with GERD Hypothyroidism Enrolled in chronic care management Right knee DJD Osteoporosis Greater trochanteric bursitis Diarrhea Urinary retention Atherosclerotic heart disease of [place] coronary artery with other forms of angina pectoris Abnormal cardiovascular stress test NSTEMI (non-ST elevated myocardial infarction) Hyperlipidemia Hypertension Urgency incontinence Past heart attack Long-term current use of opiate analgesic Pain management contract signed Restless legs syndrome Fibromyalgia Chronic low back pain Dr. Benavidez Rxes pain meds Surgical History History of mandibular surgery R jaw--has titanium plate; done for tumor--benign History of bowel resection benign growth H/O ileostomy Hx of appendectomy (~1973) Hx of hysterectomy (~1973) still has ovaries; had hyst due to bleeding; no cancer History of reversal of ileostomy Hx of tubal ligation Hx of foot surgery (~11/2013) RIGHT FOOT Family History Brother , BONE METS Cancer COLON CANCER Mother Heart disease Family history of thyroid problem Grandmother Heart disease Father Hyperlipidemia Bone cancer Social History Smoking and tobacco/nicotine status: former use of tobacco/nicotine Quit status (tobacco/nicotine): has quit using Year quit tobacco: quit 1989 Second hand smoke exposure: No Alcohol intake: never Substance/Drug Use: never Lives independently: Yes Household members: none Marital status: / Number of children: 3 Highest education level completed: Some College, No Degree Current occupational status: retired 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 Dietary Habits: Current diet type/program: regular and diabetic Caffeine: Y es Caffeine intake frequency: carbonated beverages, coffee and tea Exercise: What type of physical activity do you participate in?: none P hysical activity functional status: independent ambulation Safety: Seatbelt use: sometimes Drive intoxicated or ride with intoxicated cdl company driver?: never Home Safety: Water heater temperature set < 120 degrees: Yes Working smoke detector in home: Yes Fire extinguisher in home: Yes Carbon monoxide detector in home: No Personal Safety: Do you feel safe at home: Yes Victim of physical abuse: No Victim of emotional abuse: No Victim of sexual abuse: No NHANES Social Connection/Isolation: In a typical week, how many times do you talk on the telephone with family, friends, or neighbors?: Three or More Times per Week How often do you get together with friends or relatives?: Twice per Week Social isolation score (0-1 are the most socially isolated patients): 1 Vitals/I&O/Wt Last Vital Signs Temp 97.8 F 04/13/24 18:16 Pulse 72 04/13/24 20:58 Resp 13 04/13/24 20:58 BP 226/76 04/13/24 20:58 Pulse Ox 97 04/13/24 20:58 O2 Del Method Room Air 04/13/24 20:58 04/13/24 04/13/24 04/13/24 06:59 14:59 22:59 Intake Total 1000 / 1000 Balance 1000 / 1000 Weight last 48 hrs Weight 105 lb Physical Exam 2 Const: OTHER: continue statin GENERAL: Patient is alert, awake and oriented x3, moderate distress HEART: Regular S1 and S2. No murmur, rub or gallop. LUNGS: Clear to auscultate bilaterally. CENTRAL NERVOUS SYSTEM: Grossly nonfocal. EXTREMITIES: Lower extremities with out edema bilaterally. Data 04/13/24 19:17 04/13/24 19:17 A&P Assessment and plan (1) Ventricular tachycardia (paroxysmal): (2) Syncope: Qualifiers: Syncope type: unspecified Qualified Code(s): R55 - Syncope and collapse (3) NSTEMI (non-ST elevated myocardial infarction): (4) Hypokalemia: Plan Given atypical chest pressure, being ruled in for non-ST elevation MD and VT arrest presumed in CT scan while witnessed polymorphic VT and multiple PVCs on the telemetry I would like to rule out ongoing ischemia we will therefore proceed with left heart cath. Advised p.o. and slow IV potassium chloride along with magnesium. Heparin will be given. Patient DNR DNI was canceled by herself after discussion with the family she is full code now during and in the perioperative. Further plan will be devised as per progress the patient. Differential diagnosis could be stress-induced cardiomyopathy versus obstructive coronary artery disease and electrolyte imbalance resulted in ventricular tachycardia. Further plan will be devised as per progress of the patient. Consult Attestations 2 Medical Necessity Statement: I am expecting her stay to cross more than 2 midnights. Coding Level of Care Code Acute Code for [facility] Fwd Diagnoses Ventricular tachycardia (paroxysmal) I47.20 Syncope R55 Syncope type: unspecified NSTEMI (non-ST elevated myocardial infarction) I21.4 Hypokalemia E87.6
[2024-04-13] MEDS: amiodarone 50 mg/mL SDV 3 mL 150 MG IVP (21:53)
--- NOTE | 2024-04-13 21:55 | USCV_ITS ---
Ivan Peguero Age: 78 Gender: F : 1945 Exam Date: 04/13/2024 22:49 Ordering Phys: Estela Corado MD ([email or web address]) Technologist: Rubens Shafer [place] [facility] [place] Indication: arrythmia BP: 195 / 70 HR: 61 Rhythm: Sinus Technical Quality: Adequate MEASUREMENTS (Male / Female) Normal Values 2D ECHO LV Diastolic Diameter PLAX 3.8 cm 4.2 - 5.9 / 3.9 - 5.3 cm IVS Diastolic Thickness 1.3 cm 0.6 - 1.0 / 0.6 - 0.9 cm IVS Systolic Thickness 1.5 cm LVPW Diastolic Thickness 1.6 cm 0.6 - 1.0 / 0.6 - 0.9 cm LVPW Systolic Thickness 2.0 cm LVOT Diameter 2.0 cm LV Ejection Fraction 2D Teich 77.7 % LV Ejection Fraction MOD 4C 74.2 % LV Ejection Fraction MOD 2C 67.8 % LV Ejection Fraction 2C AL 71.5 % LA Diameter 3.1 cm RA Systolic Volume 4C AL 24.7 ml RA Systolic Volume 4C MOD 24.0 ml LA Sys Volume AL 37.9 cm cubed LA Sys Volume Index AL 26.7 cm cubed/m squared Aorta at Sinotubular Diameter 2.7 cm IVC Diameter 1.4 cm M-MODE LA Ao Ratio MM 1.2 AV Cusp Separation MM 1.6 cm DOPPLER AV Peak Velocity 290.3 cm/s LVOT Peak Velocity 74.0 cm/s AV Area Cont Eq vti 1.3 cm squared AV Area Cont Eq pk 0.8 cm squared MV Peak Velocity 133.0 cm/s MV Area PHT 5.6 cm squared Mitral E to A Ratio 0.8 TV Peak Velocity 297.5 cm/s TR Peak Velocity 333.0 cm/s TR Peak Gradient 44.4 mmHg TR Mean Velocity 243.0 cm/s TR Mean Gradient 26.9 mmHg TR Velocity Time Integral 76.0 cm PV Peak Velocity 123.0 cm/s RV Ejection Time 0.3 s FINDINGS Left Ventricle Normal left ventricular size, systolic function and wall thickness, with no regional wall motion abnormalities. Left ventricular ejection fraction is estimated at 60 %. Grade II/IV diastolic dysfunction, moderately elevated filling pressures. Right Ventricle The right ventricle is normal in size and function. Right Atrium The right atrium is normal in size. Left Atrium Moderately increased left atrial size. Mitral Valve Mild mitral annular calcification. Moderately thickened mitral valve. No mitral valve stenosis. Moderate mitral valve regurgitation. Aortic Valve Moderate aortic valve calcification. No aortic valve stenosis. Trace aortic valve regurgitation. Tricuspid Valve Mild tricuspid valve stenosis. Pulmonic Valve Trace pulmonary valve regurgitation. Pericardium Normal pericardium without effusion. Aorta Normal ascending aorta dimension. IVC The inferior vena cava appears normal. CONCLUSIONS Normal left ventricular size, systolic function and wall thickness, with no regional wall motion abnormalities. Left ventricular ejection fraction is estimated at 60 %. Grade II/IV diastolic dysfunction, moderately elevated filling pressures. Mild mitral annular calcification. Moderately thickened mitral valve. No mitral valve stenosis. Moderate mitral valve regurgitation. Moderately increased left atrial size. Moderate aortic valve calcification. No aortic valve stenosis. Trace aortic valve regurgitation. There is no pericardial effusion. Right atrial pressure is around 5 mm of mercury. Estela Corado MD (Electronically Signed) Final Date: 28 April 2024 03:06 S
[2024-04-13] MEDS: lidocaine 1% 5 ML in potassium chloride premix 100 ML 52.5 ML IV (22:20)
--- NOTE | 2024-04-13 22:20 | ECG_ITS ---
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: : 1945 Requested By: Dangelo Cristina Order Number: [id number] Soledad MD: ARNOLD ALBERTS Measurements Intervals [place] Rate: 44 P: 22 SD: 173 QRS: -34 QRSD: 128 T: -13 QT: 509 QTc: 436 Interpretive Statements SINUS BRADYCARDIA LEFT AXIS DEVIATION [QRS AXIS < -30] RIGHT BUNDLE BRANCH BLOCK [120+ ms QRS DURATION, UPRIGHT V1, 40+ ms S IN I/aVL/V4/V5/V6] MODERATE VOLTAGE CRITERIA FOR LVH, CONSIDER NORMAL VARIANT [MEETS CRITERIA IN ONE OF: R(aVL), S(V1), R(V5), R(V5/V6)+S(V1)] Compared to ECG 04/13/2024 19:51:54 Left-axis deviation now present Sinus rhythm no longer present Ventricular premature complex(es) no longer present Myocardial infarct finding no longer present Electronically Signed On 04-14-2024 23:20:54 BIKE MECHANIC by ARNOLD ALBERTS [id number]
--- NOTE | 2024-04-13 22:21 | P.HP_ITS ---
Providers/Chief Complaint 2 Primary Care Provider: Lynda Lopez MD Chief Complaint: n/v; abd pain History of Present Illness Ivan Peguero is a 78 year old female with a past medical history significant for large hiatal hernia, chronic pain, osteoarthritis, hypertension, hypothyroidism, restless leg syndrome, fibromyalgia, hyperlipidemia, coronary artery disease, and multiple other comorbidities who presents to the emergency department with generalized weakness x 2 days. Patient endorses associated symptoms of nausea with multiple episodes of emesis followed by dry heaves today. She also endorses generalized abdominal discomfort, diffuse myalgias, fatigue, and weakness. Exertion and oral intake worsens symptoms. Endorses associated anorexia. Denies other alleviating or aggravating factors. Denies sick contacts. In the emergency department, blood pressure was found to be markedly elevated. Patient reports she missed her medications today due to the her nausea and vomiting. Labs reveal hypokalemia to 2.8, azotemia with BUN of 25, and elevated baseline troponin of 190 ng/L. NT-proBNP was elevated at 1706 pg/mL. Chest x- ray was unremarkable. CT angio of chest abdomen pelvis showed no evidence of aortic dissection, did reveal mild bilateral renal pelvic basis with some fat stranding. Urinalysis obtained with benign results. Her ED course was complicated by syncopal episode following CT scanner. ED course was further complicated by nonsustained ventricular tachycardia. ED provider reports around 20 beats of VT. Cardiology consulted and evaluating. Plans to go to cardiac Crop Insurance Claims Adjuster from ER due to concern for underlying ischemia. Patient does not endorse a history of coronary artery disease with prior myocardial infarction approximately 5 years ago treated medically. She denies any recent ischemic evaluations. Review of Systems 2 Narrative: A complete review of systems was obtained and is negative except as stated in HPI. Medications/Allergies Home Medications Medication Instructions Recorded Confirmed Last Taken Type calcium 600 mg (as carbonate)-vit 1 tab PO DAILY 03/28/19 01/09/24 01/07/24 History D3 10 mcg (400 unit) chewable tablet (Calcium 600 with Vitamin D3) albuterol sulfate 90 mcg/actuation 2 puff inhalation Q6H PRN 07/24/22 01/09/24 06/21/23 History aerosol inhaler Shortness Of Breath Or Wheezing 0530 atorvastatin 40 mg tablet 40 mg PO BEDTIME 07/24/22 01/09/24 01/07/24 History Budin Hammer Toe Provider Education Specialist #1 ea 10/03/22 01/09/24 Unknown Rx oxycodone 10 mg tablet 10 - 20 mg PO Q4H PRN Pain, 11/19/23 01/09/24 01/07/24 History Moderate ropinirole 1 mg tablet 0.5 mg PO BEDTIME 11/19/23 01/09/24 01/07/24 History budesonide-formoterol HFA 160 2 puff inhalation BID 12/09/23 01/09/24 01/07/24 History mcg-4.5 mcg/actuation aerosol inhaler (Symbicort) pantoprazole 40 mg tablet,delayed 40 mg PO BID #60 tabs 12/14/23 01/09/24 01/07/24 Rx release sennosides 8.6 mg tablet (senna) 17.2 mg (2 x 8.6 mg) PO BID #60 12/14/23 01/09/24 01/07/24 Rx tabs sucralfate 1 gram tablet 1 g PO AC&BEDTIME #120 tabs 12/14/23 01/09/24 01/07/24 Rx trazodone 50 mg tablet 25 mg (1/2 x 50 mg) PO QPM PRN 01/05/24 01/09/24 01/07/24 Rx insomnia #4 tabs multivitamin 1 tab PO DAILY 01/08/24 01/09/24 01/07/24 History ondansetron 4 mg disintegrating 4 mg PO Q8H PRN Nausea And Vomiting 01/09/24 01/09/24 Unknown History tablet prednisone 50 mg tablet 50 mg PO DAILY #5 tabs 02/11/24 Unknown Rx sertraline 25 mg tablet 25 mg PO DAILY #100 tabs 02/15/24 Unknown Rx meloxicam 7.5 mg tablet 7.5 mg PO .Twice daily #14 tabs 03/06/24 Unknown Rx cyanocobalamin (vitamin B-12) 1,000 mcg PO DAILY #90 tabs 03/28/24 Unknown Rx 1,000 mcg tablet (Vitamin B-12) Allergies Allergy/AdvReac Type Severity Reaction Status Date / Time No Known Allergies Allergy Verified 01/04/24 19:29 PFSH Acute 2 PFSH: Medical History Toe fracture, right Left leg swelling Candidiasis Shortness of breath Cough Sciatica History of ingrowing nail Hammertoe, bilateral Bilateral bunions Left knee DJD Onychocryptosis Chondrocalcinosis Preoperative testing Predislocation syndrome of metatarsophalangeal joint of right foot Metatarsalgia Rash Unsteady gait when walking Leg edema, left Encounter for removal of sutures Leg edema Mitral regurgitation LLL pneumonia Stylohyoid tendonitis Yeast vaginitis Dizziness Urinary incontinence Recurrent UTI Anemia of unknown etiology Depression, major Constipation 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 on CT 12/17 Large hiatal hernia Exocrine pancreatic insufficiency Renal insufficiency Hiatal hernia with GERD Hypothyroidism Enrolled in chronic care management Right knee DJD Osteoporosis Greater trochanteric bursitis Diarrhea Urinary retention Atherosclerotic heart disease of [place] coronary artery with other forms of angina pectoris Abnormal cardiovascular stress test NSTEMI (non-ST elevated myocardial infarction) Hyperlipidemia Hypertension Urgency incontinence Past heart attack Long-term current use of opiate analgesic Pain management contract signed Restless legs syndrome Fibromyalgia Chronic low back pain Dr. Benavidez Rxes pain meds Surgical History S/P foot surgery History of mandibular surgery R jaw--has titanium plate; done for tumor--benign History of bowel resection benign growth H/O ileostomy Hx of appendectomy (~1973) Hx of hysterectomy (~1973) still has ovaries; had hyst due to bleeding; no cancer History of reversal of ileostomy Hx of tubal ligation Hx of foot surgery (~11/2013) RIGHT FOOT Family History Brother , BONE METS Cancer COLON CANCER Mother Heart disease Family history of thyroid problem Grandmother Heart disease Father Hyperlipidemia Bone cancer Social History Smoking and tobacco/nicotine status: former use of tobacco/nicotine Quit status (tobacco/nicotine): has quit using Year quit tobacco: quit 1989 Second hand smoke exposure: No Alcohol intake: never Substance/Drug Use: never Lives independently: Yes Household members: none Marital status: / Number of children: 3 Highest education level completed: Some College, No Degree Current occupational status: retired 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 Frail-appearing. Ill-appearing. Head: Normocephalic. Atraumatic. EOM intact. Dry mucous membranes. Neck: No JVD. Cardiovascular: RRR. No gallops. 1-2+ murmur present. Lungs: Clear to auscultation, no use of accessory muscles, no crackles or wheezes. Skin: No jaundice. No rashes. Abdomen: Normal bowel sounds, abdomen soft and nontender. Genito Urinary: Genital exam not performed since complaints not related. Rectal: Rectal exam not performed since no symptoms indicated blood loss. Extremities: No cyanosis or clubbing. Musculoskeletal: No swollen or erythematous joints. Neurological: Moves all 4 extremities. No myoclonus. Data 04/13/24 19:17 04/13/24 19:17 A&P Assessment and plan (1) Elevated troponin: Elevated troponin concerning for possible NSTEMI Ventricular tachycardia may be related to underlying ischemia Continuous telemetry monitoring Complete echocardiogram Patient started on heparin drip Cardiology consulted, appreciate recommendations Patient going to Crop Insurance Claims Adjuster (2) Ventricular tachycardia (paroxysmal): Nonsustained ventricular tachycardia Telemetry monitoring Monitor and correct electrolytes, magnesium level ordered Mag sulfate already ordered Amiodarone push ordered Cardiology following, appreciate recommendations (3) Syncope: Patient with syncopal episode while in CT scanner, may be related to underlying V. tach Continuous telemetry monitoring Echo Qualifiers: Syncope type: unspecified Qualified Code(s): R55 - Syncope and collapse (4) Hypertension: Hypertensive urgency with current blood pressure 226/76 mmHg Patient being started on drip, goal to decrease blood pressure by at least 25% initially Will admit to ICU after cardiac cath Monitor blood pressure, adjust medications as needed Qualifiers: Hypertension type: essential hypertension Qualified Code(s): I10 - Essential (primary) hypertension (5) Atherosclerotic heart disease of [place] coronary artery with other forms of angina pectoris: Patient reports history of coronary disease without prior stents or bypass Ischemic evaluation noted as above (6) Hypokalemia: Correct underlying hypokalemia, potassium goal greater than 4 Checking and supplementing magnesium Continuous telemetry monitoring (7) Nausea & vomiting: CT abdomen and pelvis negative for acute findings, there is concern for pyelonephritis but urinalysis not consistent Gastroenteritis remains within the differential Rotate IV PPI given nausea and vomiting Antiemetics as needed Supportive care (8) Chronic pain: Plan to continue home medications Plan DVT prophylaxis: Heparin Attestations 2 Medical Necessity Statement*: Patient presents with nausea and vomiting associated with a diffuse pain/myalgias, found to have elevated troponin, ventricular tachycardia, severe electrolyte abnormalities, and syncopal episode with expected hospitalization not to cross 2 midnights for cardiac cath, echo, electrolyte management, and supportive care. Coding Level of Care Code Acute Code for [facility] Fwd Diagnoses Elevated troponin R79.89 Ventricular tachycardia (paroxysmal) I47.20 Syncope R55 Syncope type: unspecified Essential hypertension I10 Hypertension type: essential hypertension Atherosclerotic heart disease of [place] coronary artery with other forms of angina pectoris I25.118 Hypokalemia E87.6 Nausea & vomiting R11.2 Chronic pain G89.29
--- NOTE | 2024-04-13 22:30 | W.ED.NAVMDI ---
HPI - Nausea/Vomiting/Diarrhea General: Chief complaint: Nausea/Vomiting/Diarrhea Stated complaint: n/v; abd pain Time Seen by Provider: 04/13/24 18:16 History of Present Illness: This patient is a 78-year-old white female who presents to the emergency department with nausea, back pain, neck pain and pains in both legs. She has had a couple of episodes of vomiting today. No diarrhea. No fever. No chest pain or shortness of breath. No abdominal pain. Past medical history includes hypertension. She states she was unable to take her blood pressure medication today due to the nausea. Associated nausea: Yes Associated symtoms: Reports nausea Related Data Home Medications Medication Instructions Recorded Confirmed calcium 600 mg (as carbonate)-vit 1 tab PO DAILY 03/28/19 01/09/24 D3 10 mcg (400 unit) chewable tablet (Calcium 600 with Vitamin D3) albuterol sulfate 90 mcg/actuation 2 puff inhalation Q6H PRN 07/24/22 01/09/24 aerosol inhaler Shortness Of Breath Or Wheezing atorvastatin 40 mg tablet 40 mg PO BEDTIME 07/24/22 01/09/24 oxycodone 10 mg tablet 10 - 20 mg PO Q4H PRN Pain, 11/19/23 01/09/24 Moderate ropinirole 1 mg tablet 0.5 mg PO BEDTIME 11/19/23 01/09/24 budesonide-formoterol HFA 160 2 puff inhalation BID 12/09/23 01/09/24 mcg-4.5 mcg/actuation aerosol inhaler (Symbicort) multivitamin 1 tab PO DAILY 01/08/24 01/09/24 ondansetron 4 mg disintegrating 4 mg PO Q8H PRN Nausea And Vomiting 01/09/24 01/09/24 tablet Previous Rx's Medication Instructions Recorded Budin Hammer Toe Mop Maker #1 ea 10/03/22 pantoprazole 40 mg tablet,delayed 40 mg PO BID #60 tabs 12/14/23 release sennosides 8.6 mg tablet (senna) 17.2 mg (2 x 8.6 mg) PO BID #60 12/14/23 tabs sucralfate 1 gram tablet 1 g PO AC&BEDTIME #120 tabs 12/14/23 trazodone 50 mg tablet 25 mg (1/2 x 50 mg) PO QPM PRN 01/05/24 insomnia #4 tabs prednisone 50 mg tablet 50 mg PO DAILY #5 tabs 02/11/24 sertraline 25 mg tablet 25 mg PO DAILY #100 tabs 02/15/24 meloxicam 7.5 mg tablet 7.5 mg PO .Twice daily #14 tabs 03/06/24 cyanocobalamin (vitamin B-12) 1,000 mcg PO DAILY #90 tabs 03/28/24 1,000 mcg tablet (Vitamin B-12) Allergies Allergy/AdvReac Type Severity Reaction Status Date / Time No Known Allergies Allergy Verified 01/04/24 19:29 Review of Systems General: Reports: 10 or more systems reviewed and unremarkable except in HPI and below GI: Reports: nausea Musc: Reports: neck pain and back pain PFSH ED PFSH: Medical History Anemia of unknown etiology Depression, major Constipation 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 on CT 12/17 Large hiatal hernia Exocrine pancreatic insufficiency Renal insufficiency Hiatal hernia with GERD Hypothyroidism Enrolled in chronic care management Right knee DJD Osteoporosis Greater trochanteric bursitis Diarrhea Urinary retention Atherosclerotic heart disease of [place] coronary artery with other forms of angina pectoris Abnormal cardiovascular stress test NSTEMI (non-ST elevated myocardial infarction) Hyperlipidemia Hypertension Urgency incontinence Past heart attack Long-term current use of opiate analgesic Pain management contract signed Restless legs syndrome Fibromyalgia Chronic low back pain Dr. Benavidez Rxes pain meds Surgical History History of mandibular surgery R jaw--has titanium plate; done for tumor--benign History of bowel resection benign growth H/O ileostomy Hx of appendectomy (~1973) Hx of hysterectomy (~1973) still has ovaries; had hyst due to bleeding; no cancer History of reversal of ileostomy Hx of tubal ligation Hx of foot surgery (~11/2013) RIGHT FOOT Family History Brother , BONE METS Cancer COLON CANCER Mother Heart disease Family history of thyroid problem Grandmother Heart disease Father Hyperlipidemia Bone cancer Social History Smoking and tobacco/nicotine status: former use of tobacco/nicotine Quit status (tobacco/nicotine): has quit using Year quit tobacco: quit 1989 Second hand smoke exposure: No Alcohol intake: never Substance/Drug Use: never Lives independently: Yes Household members: none Marital status: / Number of children: 3 Highest education level completed: Some College, No Degree Current occupational status: retired 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 Physical Exam Const: COMMON NORMALS: patient oriented x3 and no limitations GENERAL APPEARANCE: cooperative HENMT: COMMON NORMALS: normocephalic, atraumatic, Normal nasal mucous membranes and turbinates present, moist oral mucous membranes and oropharynx normal HEAD & SCALP: normal to inspection, normocephalic and atraumatic FACE & SINUS: normal facial exam NOSE: Normal nasal mucous membranes and turbinates present Eye: COMMON NORMALS: Equal, round and reactive pupils present, EOMs intact bilaterally and conjunctivae normal GENERAL EYE: appearance normal, both eyes and all related structures CONJUNCTIVA: Yes conjunctivae normal PUPIL: Yes Equal, round and reactive pupils present Neck/C-Spine: COMMON NORMALS: supple and no JVD Chest: COMMONS NORMALS: normal inspection of the chest Resp: COMMON NORMALS: normal respiratory effort and clear to auscultation bilaterally AUSCULTATION: clear to auscultation bilaterally Cardio: COMMON NORMALS: no JVD, regular rate, regular rhythm, No gallops present (Cardio), No murmurs present (Cardio) and No rub (Cardio) RATE: regular rate RHYTHM: regular rhythm GI: COMMON NORMALS: Normal to inspection, nondistended, normoactive bowel sounds present, Soft to palpation and non-tender AUSCULTATION: Yes normoactive bowel sounds PALPATION: Yes Soft to palpation : COMMON NORMALS: Yes no CVA tenderness BLADDER/KIDNEY EXAM: Yes no CVA tenderness Back/Pelvis: COMMON NORMALS: no CVA tenderness and thoracic and lumbar spine normal to inspection Extremity: COMMON NORMALS: normal to inspection Neuro: COMMON NORMALS: patient oriented x3 and CN's II-XII intact bilaterally Psych: COMMON NORMALS: mental status grossly normal, Normal thought process present and cooperative THOUGHT PROCESS: Normal thought process present Skin: COMMON NORMALS: no rashes or lesions noted, turgor normal and no jaundice GENERAL SKIN EXAM: no rashes or lesions noted and turgor normal Course Vital Signs: Vital signs: Vital Signs Temperature 97.8 F 01/19/25 18:16 Pulse Rate 72 04/13/24 20:58 Respiratory Rate 13 04/13/24 20:58 Blood Pressure 226/76 04/13/24 20:58 Pulse Oximetry 97 04/13/24 20:58 Oxygen Delivery Me thod Room Air 04/13/24 20:58 MDM - Nausea/Vomiting/Diarrhea Medical Decision Making And ordered labs as well as morphine and Zofran and IV fluids. Patient had gotten up to the commode and nursing staff at that time noted she went into an episode of V. tach and became very dizzy. At that time I added cardiac workup. EKG was obtained which revealed PVCs. No significant ST segment abnormalities. Her chest x-ray was normal except for hiatal hernia. CBC was normal. CMP revealed a potassium of 2.8. Lipase 21. Urinalysis was normal. Troponin came back elevated at 190. Patient's blood pressure was quite high upon arrival with systolic of 223 and diastolic of 100. The morphine did bring that down somewhat into the 1 70-1 90 range systolic. I had also ordered a CT angiogram of the chest abdomen pelvis to look at the aorta concerning for dissection with the elevated blood pressure, back pain and leg pains. While the patient was down in the radiology department after she had undergone the CT angiogram she had a syncopal episode at which time the radiology techs called a rapid response. By the time I arrived to the department the patient was awake but altered. We immediately wheeled her back to the emergency room and by the time we got her back to the room she was able to communicate. At that time she was complaining of nausea and chest pressure. Repeat EKG revealed that she was in bigeminy. Again no acute ST segment abnormalities. Her blood pressure was 198. Heart rate was 40-60. At that time we gave her sublingual nitro, placed on a nitro drip, gave her 324 mg of aspirin, 150 mg of amiodarone IV. Patient improved. Radiologist read the CT angiogram as normal aorta. She does have a large hiatal hernia including the stomach, part of the pancreas and the splenic artery. I consulted Dr. Perez, underwriting internship shortly after the syncopal episode. He did come to the emergency department and evaluated the patient. He had a discussion with the patient and family about taking her to the cardiac Human Resources Admin and they are agreeable to cardiac catheterization. Patient will be taken to the lab shortly. She is stable at this time. I also discussed the case with Dr. Bowden, hospitalist. He has also come down to the emergency department to evaluate the patient. Patient was given a heparin bolus and I had also ordered 20 mill equivalent potassium replacement IV over 2 hours. Lab Data 04/13/24 19:17 04/13/24 19:17 Radiology Impressions Chest X-Ray 04/13/24 20:19 IMPRESSION: No acute findings. Chest/Abdomen/Pelvis CTA 04/13/24 20:52 IMPRESSION: 1. No aortic dissection or evidence of intramural hematoma. 2. Mild bilateral renal pelviectasis without caliectasis and developed moderate [id number]-right perirenal fat stranding/edema. Correlate for pyelonephritis. 3. Large hiatal hernia containing majority of the stomach and portion of the pancreas as well as splenic artery. 4. Additional chronic and incidental findings as above. Laboratory Results WBC 8.35 10^3/uL (3.29-11.43) 04/13/24 19:17 RBC 5.51 10^6/uL (3.85-5.65) 04/13/24 19:17 Hgb 14.80 g/dL (11.27-16.99) 04/13/24 19:17 Hct 45.8 % (36-47) 04/13/24 19:17 MCV 83.1 fl (85-98) L 04/13/24 19:17 MCH 26.9 pg (27-33) L 04/13/24 19:17 MCHC 32.3 g/dL (30-55) 04/13/24 19:17 RDW 17.0 % (12.1-15.1) H 04/13/24 19:17 Plt Count 329 10^3/cmm (157-399) 04/13/24 19:17 MPV 10.7 fL (7.4-10.4) H 04/13/24 19:17 Neut % (Auto) 61.2 % 04/13/24 19:17 Lymph % (Auto) 25.3 % 04/13/24 19:17 [place] % (Auto) 8.0 % 04/13/24 19:17 Eos % (Auto) 4.9 % 04/13/24 19:17 Baso % (Auto) 0.4 % 04/13/24 19:17 Neut # (Auto) 5.11 10^3/uL (1.8-7.7) 04/13/24 19:17 Lymph # (Auto) 2.1 10^3/uL (0.8-4.8) 04/13/24 19:17 [place] # (Auto) 0.7 10^3/uL (0.2-0.9) 04/13/24 19:17 Eos # (Auto) 0.4 10^3/uL (0.0-0.8) 04/13/24 19:17 Baso # (Auto) 0.0 10^3/uL (0.0-0.1) 04/13/24 19:17 Nucleated RBC % (auto) 0 % 04/13/24 19:17 Nucleated RBCs # 0.0 /100WBC 04/13/24 19:17 Sodium 141 mmol/L (136-145) 04/13/24 19:17 Potassium 2.8 mmol/L (3.5-5.1) L* 04/13/24 19:17 Chloride 99 mmol/L (98-107) 04/13/24 19:17 Carbon Dioxide 28 mmol/L (22-29) 04/13/24 19:17 Anion Gap 16.8 (5-19) 04/13/24 19:17 BUN 25 mg/dL (8-23) H 04/13/24 19:17 Creatinine 1.1 mg/dL (0.5-0.9) H 04/13/24 19:17 GFR Calculation Not Reportable 04/13/24 19:17 Glucose 112 mg/dL (65-115) 04/13/24 19:17 Calculated Osmolality 297 mOsm/kg (285-295) H 04/13/24 19:17 Calcium 10.1 mg/dL (8.5-10.5) 04/13/24 19:17 Total Bilirubin 0.9 mg/dL (0.15-1.2) 04/13/24 19:17 AST 18 U/L (0-32) 04/13/24 19:17 ALT 6 U/L (0-33) 04/13/24 19:17 Alkaline Phosphatase 90 U/L (35-105) 04/13/24 19:17 Troponin T Baseline 190 ng/L (0-10) H* 04/13/24 19:17 NT-Pro-B Natriuret Pep 1706 pg/mL (0-450) H 04/13/24 19:17 Total Protein 6.6 g/dL (6.6-8.7) 04/13/24 19:17 Albumin 3.9 g/dL (3.5-5.2) 04/13/24 19:17 Globulin 2.7 g/dL (1.3-4.6) 04/13/24 19:17 Lipase 21 U/L (13-60) 04/13/24 19:17 Urine Color Yellow (Yellow) 04/13/24 18:50 Urine Appearance Clear (CLEAR) 04/13/24 18:50 Urine pH 6.5 (5-7) 04/13/24 18:50 Ur Specific [place] 1.012 (1.005-1.030) 04/13/24 18:50 Urine Protein 1+ (Negative) A 04/13/24 18:50 Urine Glucose (UA) Negative (Normal) 04/13/24 18:50 Urine Ketones Negative (Negative) 04/13/24 18:50 Urine Blood Negative (Negative) 04/13/24 18:50 Urine Nitrate Negative (Negative) 04/13/24 18:50 Urine Bilirubin Negative (Negative) 04/13/24 18:50 Urine Urobilinogen 0.2 mg/dL (Negative) 04/13/24 18:50 Ur Leukocyte Esterase Negative (Negative) 04/13/24 18:50 Urine RBC 0-2 /hpf (0-2) 04/13/24 18:50 Urine WBC 0-5 /hpf (0-5) 04/13/24 18:50 Ur Squamous Epith Cells 0-5 /hpf (0-5) 04/13/24 18:50 Urine Bacteria None seen /hpf (NONE) 04/13/24 18:50 Hyaline Casts 0-4 /lpf H 04/13/24 18:50 All radiology interpretation(s) finalized by discharge Discharge Plan Discharge Patient Disposition: Admitted As Inpatient Clinical Impression: Ventricular tachycardia (paroxysmal), Elevated troponin Syncope Qualifiers: Syncope type: unspecified Qualified Code(s): R55 - Syncope and collapse Condition: Stable Coding Level of Care Code ED [employer] Fwd
[2024-04-13 22:47] LABS: Troponin 5 2HR 131.6 ng/L (0-10); Troponin 5 2HR Delta -58.4 ABS# (0-10)
--- NOTE | 2024-04-13 22:48 | W.PM.OPSUD ---
Surgery/Procedure H&P Update DATE OF PROCEDURE: April 13, 2024 DATE H&P PERFORMED: 04/13/24 H&P UPDATE INFORMATION: I have reviewed H&P completed within last 30 days, I have examined patient prior to procedure and No changes to prior documentation PREOP DIAGNOSIS: Ventricle tachycardia, unstable non-ST elevation MT PATIENT REASSESSED PRIOR TO SEDATION, WITH NO CHANGE NOTED: Yes PHYSICAL EXAM: alert, oriented x 3, clear to auscultation bilaterally and regular rate & rhythm AIRWAY EVAL/ANESTHESIA PLAN: ASA II, Risks, benefits & alternatives of sedation and/or procedure discussed and Patient agrees to continue as planned
--- NOTE | 2024-04-13 22:51 | XACV_ITS ---
Exam Room: [facility] Ht: 152 cm Wt: 48 kg BSA: 1.42 m2 Gender: Female : 1945 Any Known Allergies: No known allergies Exam Priority: Routine Procedure(s): Procedure Description: Diagnostic procedure [id number], Corado; Diagnostic Cath Status: Emergency Diagnostic Findings * No disease noted in the Left Main, Left Anterior Descending, Right, or Circumflex coronary arteries. Luminal irregularities of the LAD RCA circumflex without significant stenosis. Because patient has echocardiogram performed LV gram was not performed.. * Coronary angiography shows right dominance. Conclusions 1. No disease noted in the Left Main, Left Anterior Descending, Right, or Circumflex coronary arteries. Luminal irregularities of the LAD RCA circumflex without significant stenosis. Because patient has echocardiogram performed LV gram was not performed.. 2. Indication for Nurse Transition was: Ventricular tachycardia polymorphic. Recommendations * Continue current medical management and risk factor modification. Diagnostic RX Recommendation: medical therapy and/or counseling Pressures Phase:Rest AO : 137 / 71 ( 96 ) @ 6:08:02 PM 150 / 84 ( 110 ) @ 6:08:02 PM 141 / 81 ( 109 ) @ 6:08:02 PM 156 / 89 ( 119 ) @ 6:08:02 PM Clinical Evaluation EBL: 5mL-10mL Procedural Details Pre-Procedure Time Out. Identified patient by full name and date of as verbalized by the patient/guarantor. Does the consent match the physician's order: N/A Emergent. Accurate & Complete Informed Consent: N/A Emergent. Inpatient/Outpatient History & Physical on Chart: N/A Emergent. If H&P is completed, is and addenduem needed: N/A Emergent; If yes, is the addendum complete: N/A Emergent. Visualize and Verify Site with Patient/Guarantor: N/A. Relevant Radiology Images available: N/A Emergent. Pre-op teaching completed and patient verbalized understanding. The risks, benefits, and alternatives of sedation and/or procedure were discussed by physician. The patient agrees to continue. Procedure started. [facility] Clinical Fraility Score: 4: Vulnerable. Nurse Transition Indications: Other. Chest Pain Symptom Assessment: Atypical Angina. Correct patient, site and procedure confirmed by cath team. PERRLA. Strong, equal hand shipping and receiving weigher bilaterally. Lungs clear x 5 lobes. IV Site on Arrival: 18 gauge in the right anticubital. IV Fluids: 0.9% NaCl at KVO. 0 mL infused prior to cathead operator. Oxygen started at 2liters/min via nasal canula. Baseline sample Acquired. HR: 69 BPM. right groin was prepped with chloroprep then draped in the usual sterile fashion. right radial was prepped with chloroprep then draped in the usual sterile fashion. Physician arrived. Physician scrubbed in. Immediate Pre-Procedure Time Out. Correct Patient: N/A Emergent; Correct Procedure: N/A Emergent; Correct Site: N/A Emergent; Correct Patient Position: N/A Emergent; Correct Supplies: N/A Emergent; Dried Flammable Prep: N/A Emergent; Blood Products Available: N/A Emergent;. Manual blood pressure performed. 229/92. Lidocaine 1% infiltrated to the right radial. Arterial access obtained. A 5 [place] TIG catheter in over wire. Manual blood pressure performed.162/82. Vital chart was stopped. Multiple views taken of left coronary artery. Catheter redirected to the RCA. Multiple views taken of right coronary artery. Catheter removed over the exchange wire. Physician review of cine films. A TR Band was successful obtaining hemostatsis at the Right Radial artery insertion site. Post Procedure: Pulses reassessed and unchanged. PERRLA. Strong, equal hand shipping and receiving weigher bilaterally. No VTE prophylaxis required. Medication's Wasted: Lidocaine 1% = 18 mL. Medication's Wasted: Nitro = 49.8 mcg. Medication's Wasted: Other = Fentanyl 50mcg Versed 1 mg. Total IV fluids: 0 mL. Complications: None. Estimated blood loss: 5mL-10mL. Responsiveness - Normal response to verbal stimuli; alert and oriented, PERRLA. Airway - Unaffected, no intervention required; spontaneous ventilation. Circulation: W/N/L, pulses unchanged. Nausea/Vomiting: No. Procedure completed. Patient transferred by bed to ICU. Access Site Site: Right Radial artery Sheath Size: 6 Fr Hemostasis Method: TR Band Hemostasis Success: Successful Procedure Medications Start: 11:47 PM Stop: 11:47 PM Medication: Versed Amount: 1 mg Route: I.V. Start: 11:47 PM Stop: 11:47 PM Medication: Fentanyl Amount: 50 mcg Route: I.V. Start: 11:50 PM Stop: 11:50 PM Medication: Nitrogylcerin Amount: 200 mcg Route: I.A. Start: 11:51 PM Stop: 11:51 PM Medication: Heparin Amount: 4000 units Route: I.V. I, the attending physician, have reviewed and verified all procedure medications. Yes, all medications given per verbal order History/Risk Factors Hypertension: No Dyslipidemia: No Peripheral Arterial Disease (PAD): No Myocardial Infarction ([place]): No Obesity: No Renal Disease: No Prior Interventions PCI: No CABG: No Valve Surgery: No Report Signatures Finalized by Estela Corado MD on 04/14/2024 12:10 AM
[2024-04-13] MEDS: heparin 5,000 unit/mL INJ 1 mL 4000 UNIT IVP (22:52)
[2024-04-13] MEDS: potassium chloride oral liq 20 mEq/15 mL UDC PO (22:52)
[2024-04-13] MEDS: magnesium sulfate premix 2 GM/50 ML PIGGYBACK IV (22:55)
[2024-04-13 23:02] LABS: Magnesium 1.6 mg/dL (1.7-2.3)
[2024-04-14] VITALS (101 sets, daily range): BP systolic 80–209; BP diastolic 45–134; PULSE 38–121; RESP 9–28; TEMP 36.4–36.6; O2SAT 88–100
[2024-04-14 00:16] LABS: INR 1.03 (0.8-1.2)
[2024-04-14] MEDS: lidocaine 1% 5 ML in potassium chloride premix 100 ML 52.5 ML IV (00:34)
[2024-04-14] MEDS: morphine 4 mg/mL SDV 1 mL IVP (01:22)
--- NOTE | 2024-04-14 01:40 | PC.NURSE ---
B. Leg Pain: Pt reports 10/10 pain in bilateral legs from her restless leg syndrome. Pt states she takes 1-2 pills of her oxycodone for this at home every 4-[address] Bowden notified. New order to start oxycodone order PRN.
[2024-04-14] MEDS: pantoprazole 40 mg SDV IVP ×2 (01:44→12:07)
[2024-04-14] MEDS: trazodone 50 mg Tablet 25 MG PO (01:56)
[2024-04-14] MEDS: oxyCODONE-APAP 10-325 mg Tablet PO ×3 (01:56→09:49)
--- NOTE | 2024-04-14 02:20 | ECG_ITS ---
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: : 1945 Requested By: Dangelo Cristina Order Number: [id number] Soledad MD: ARNOLD ALBERTS Measurements Intervals [place] Rate: 45 P: 25 [place]: 174 QRS: -38 QRSD: 125 T: -6 QT: 505 QTc: 440 Interpretive Statements SINUS BRADYCARDIA LEFT AXIS DEVIATION [QRS AXIS < -30] RIGHT BUNDLE BRANCH BLOCK [120+ ms QRS DURATION, UPRIGHT V1, 40+ ms S IN I/aVL/V4/V5/V6] MODERATE VOLTAGE CRITERIA FOR LVH, CONSIDER NORMAL VARIANT [MEETS CRITERIA IN ONE OF: R(aVL), S(V1), R(V5), R(V5/V6)+S(V1)] POSSIBLE ANTERIOR MYOCARDIAL INFARCTION , OF INDETERMINATE AGE [30 ms Q WAVE IN V3/V4, OR R < 0.2 mV IN V4] Compared to ECG 04/14/2024 00:50:56 Myocardial infarct finding now present Electronically Signed On 04-14-2024 23:20:51 COST RECOVERY TECHNICIAN by ARNOLD ALBERTS [id number]
--- NOTE | 2024-04-14 02:28 | PC.NURSE ---
Low HR: HR 42, BP 190/100. Pt is asymptomatic- no chest pain. Dr. Bowden called @0224 to update on vitals and Nitrodrip rate. Order to continue to monitor HR and call back if pt becomes symptomatic.
[2024-04-14 04:37] LABS: Basophils % 0.2 %; Eosinophils # 0.1 10^3/uL (0.0-0.8); Eosinophils % 1.3 %; Hematocrit 47.2 % (36-47); Lymphocytes # 1.5 10^3/uL (0.8-4.8); Mean Corpuscular HGB Conc 31.4 g/dL (30-55); Mean Corpuscular Hemoglobin 26.9 pg (27-33); Mean Corpuscular Volume 85.7 fl (85-98); Mean Platelet Volume 11.7 fL (7.4-10.4); Monocytes # 0.8 10^3/uL (0.2-0.9); Monocytes % 7.6 %; Neutrophils # 7.91 10^3/uL (1.8-7.7); Neutrophils % 76.3 %; Nucleated Red Blood Cells % 0 %; Platelet Count 328 10^3/cmm (157-399); Red Blood Count 5.51 10^6/uL (3.85-5.65); Red Cell Distribution Width 17.2 % (12.1-15.1); White Blood Count 10.36 10^3/uL (3.29-11.43)
[2024-04-14 05:04] LABS: Troponin 5 6HR 138.9 ng/L (0-10); Troponin 5 6HR Delta -51.1 ng/L (0-12)
[2024-04-14 05:49] LABS: Glucose Point of Care 94 mg/dL (70-110)
[2024-04-14 06:04] LABS: Procalcitonin 63.56 ng/mL (0-0.5)
[2024-04-14] MEDS: metoprolol tartrate 1 mg/1 mL SDV 5 mL 5 MG IVP (06:13)
[2024-04-14] MEDS: magnesium sulfate premix 2 GM/50 ML PIGGYBACK IV (06:13)
--- NOTE | 2024-04-14 06:31 | PC.NURSE ---
V. Tach: 0508- pt started having multiple, frequent runs of V.tach ranging between 4-12 beats. Zoll pads on. Pt is A&Ox4, no chest pain, unable to get a BP on the monitor. Dr. Bowden called @0548- new order to call Dr. Corado. Manual BP 240/90. Dr. Corado called- New order for 12.5 PO Metoprolol ONCE NOW and Daily. If V.Tach persist, start Amio drip w/ loading dose. Dr. Bowden on unit to see pt. @0605 pt went into V.Tach for approximately 1 minute. Pt became pale and dizzy. Dr. Bowden in pt room. New order to give 5mg IVP Metoprolol ONCE NOW and 2g Magnesium IV ONCE NOW.
[2024-04-14] MEDS: piperacillin-tazobactam 3.375 GM in sodium chloride 0.9% (plus) 50 ML IV ×3 (06:52→22:29)
[2024-04-14 06:59] LABS: Alanine Aminotransferase 9 U/L (0-33); Albumin Level 3.9 g/dL (3.5-5.2); Alkaline Phosphatase 87 U/L (35-105); Anion Gap 16.9 (5-19); Aspartate Amino Transferase 22 U/L (0-32); Blood Urea Nitrogen 19 mg/dL (8-23); Calcium 9.6 mg/dL (8.5-10.5); Carbon Dioxide 28 mmol/L (22-29); Chloride 99 mmol/L (98-107); Globulin 2.1 g/dL (1.3-4.6); Glucose 129 mg/dL (65-115); Magnesium 2.3 mg/dL (1.7-2.3); Osmolality Calculated 294 mOsm/kg (285-295); Phosphorus 3.1 mg/dL (2.5-4.5); Potassium 3.9 mmol/L (3.5-5.1); Sodium 140 mmol/L (136-145); Total Bilirubin 1.3 mg/dL (0.15-1.2)
[2024-04-14] MEDS: ipratropium-albuterol 3 mL Neb INHALATION (07:47)
[2024-04-14] MEDS: budesonide 0.5 mg/2 mL Neb INHALATION ×2 (07:47→19:58)
[2024-04-14] MEDS: sertraline 50 mg Tablet 25 MG PO (09:04)
[2024-04-14] MEDS: metoprolol tartrate 25 mg Tablet 12.5 MG PO ×2 (10:40→20:06)
[2024-04-14] MEDS: oxyCODONE 5 mg IR Tab/Cap 10 MG PO ×2 (16:06→22:27)
[2024-04-14] MEDS: pantoprazole DR 40 mg Tablet PO (17:20)
--- NOTE | 2024-04-14 17:38 | PC.NURSE ---
HR in the 40s, Dr. Perez approved holding metoprolol
--- NOTE | 2024-04-14 17:40 | P.PN_ITS ---
Subjective 2 Subjective: Overnight labs and interim events reviewed. Patient had an episode of V. tach this morning. Currently on metoprolol. Heart rate ranging between 40-77. Medications: Reviewed: Yes Vitals/I&O/Wt Last Vital Signs Temp 97.6 F 04/14/24 04:11 Pulse 77 04/14/24 16:30 Resp 28 H 04/14/24 16:30 BP 165/126 04/14/24 16:15 Pulse Ox 98 04/14/24 16:06 O2 Del Method Nasal Cannula 04/14/24 14:18 O2 Flow Rate 2 04/14/24 14:18 04/14/24 04/14/24 04/14/24 06:59 14:59 22:59 Intake Total 311.425 / 1311.425 592.75 / 592.75 Output Total 725 / 725 800 / 800 Balance -413.575 / 586.425 592.75 / 592.75 -800 / -207.25 Weight last 48 hrs Weight 47.899 kg Weight 47.627 kg Physical Exam 2 Narrative: General: No acute distress, AO x3 HEENT: PERRLA, pupils bilaterally equal and reactive, pallors not present Chest: Normal vesicular breath sounds, no added sounds, equal good air entry bilaterally CVS: S1-S2 regular, no murmurs, no tachycardia, no gallops, no rubs Abdomen: Soft, nontender, no organomegaly, bowel sounds present Neuro: No focal deficits, no facial deformity, AO x3, power 5/5 in all limbs Data 04/14/24 02:10 04/14/24 05:25 Micro: Microbiology 04/14/24 09:16 Blood Culture - Preliminary Blood SPECIMEN COLLECTED 04/14/24 09:08 Blood Culture - Preliminary Blood SPECIMEN COLLECTED A&P Assessment and plan (1) Elevated troponin: Elevated troponin concerning for possible NSTEMI Ventricular tachycardia may be related to underlying ischemia Continuous telemetry monitoring Complete echocardiogram Patient started on heparin drip Cardiology consulted, appreciate recommendations Patient going to [facility] (2) Ventricular tachycardia (paroxysmal): Nonsustained ventricular tachycardia Telemetry monitoring Monitor and correct electrolytes, magnesium level ordered Mag sulfate already ordered Amiodarone push ordered Cardiology following, appreciate recommendations (3) Syncope: Patient with syncopal episode while in CT scanner, may be related to underlying V. tach Continuous telemetry monitoring Echo Qualifiers: Syncope type: unspecified Qualified Code(s): R55 - Syncope and collapse (4) Hypertension: Hypertensive urgency with current blood pressure 226/76 mmHg Patient being started on drip, goal to decrease blood pressure by at least 25% initially Will admit to ICU after cardiac cath Monitor blood pressure, adjust medications as needed Qualifiers: Hypertension type: essential hypertension Qualified Code(s): I10 - Essential (primary) hypertension (5) Atherosclerotic heart disease of [place] coronary artery with other forms of angina pectoris: Patient reports history of coronary disease without prior stents or bypass Ischemic evaluation noted as above (6) Hypokalemia: Correct underlying hypokalemia, potassium goal greater than 4 Checking and supplementing magnesium Continuous telemetry monitoring (7) Nausea & vomiting: CT abdomen and pelvis negative for acute findings, there is concern for pyelonephritis but urinalysis not consistent Gastroenteritis remains within the differential Rotate IV PPI given nausea and vomiting Antiemetics as needed Supportive care (8) Chronic pain: Plan to continue home medications Plan DVT prophylaxis: Heparin April 14, 2024. Patient went to cardiac [facility] today. Not found to have any obstructive CAD. Episode of V. tach this morning associated with syncope. She is currently on metoprolol following which episode has not recurred. Denies any current chest pain. She has been titrated off nitroglycerin infusion. Intermittent bradycardia with heart rate dropping down to the 40s. Will monitor her closely in the ICU as will likely require titration of beta-blockers and optimize dosing for management of V. tach and bradycardia. Patient may need EP studies in case continues to have recurrent V. tach. Attestations 2 Medical Necessity Statement*: Status post left heart cath today. Closely monitor for any recurrence of V. tach. Noted bradycardia while on beta-blockers. Will need to observe and manage medications closely over the next 24 to 48 hours. Coding Level of Care Code Acute Code for Chg Fwd High MDM includes number and complexity of problems actively addressed during encounter, amount and/or complexity of data reviewed/ordered and described risk of complication, morbidity or mortality of management as documented Diagnoses Elevated troponin R79.89 Ventricular tachycardia (paroxysmal) I47.20 Syncope R55 Syncope type: unspecified Essential hypertension I10 Hypertension type: essential hypertension Atherosclerotic heart disease of [place] coronary artery with other forms of angina pectoris I25.118 Hypokalemia E87.6 Nausea & vomiting R11.2 Chronic pain G89.29
--- NOTE | 2024-04-14 18:45 | PC.NURSE ---
Dr. Perez came to bedside, gave vo to start give amlodipine 1x tonight see mar and changed metoprolol back to 12.5 tartrate due to bradycardia
[2024-04-14] MEDS: mirtazapine 15 mg Tablet 7.5 MG PO (20:05)
[2024-04-14] MEDS: atorvastatin 40 mg Tablet PO (20:05)
[2024-04-14] MEDS: amlodipine 5 mg Tablet PO (20:05)
[2024-04-14] MEDS: ropinirole 1 mg Tablet 0.5 MG PO (20:06)
--- NOTE | 2024-04-14 21:30 | P.PN_ITS ---
Subjective 2 Subjective: Patient had couple of episode of nonsustained VT this morning Last night she underwent left heart cath which showed no significant coronary artery disease left ventricular ejection fraction was normal with normal LVEDP Vitals/I&O/Wt Last Vital Signs Temp 97.8 F 04/14/24 20:00 Pulse 50 L 04/14/24 20:00 Resp 15 04/14/24 20:00 BP 152/73 04/14/24 20:00 Pulse Ox 99 04/14/24 20:00 O2 Del Method Room Air 04/14/24 20:00 O2 Flow Rate 2 04/14/24 19:58 04/14/24 04/14/24 04/14/24 06:59 14:59 22:59 Intake Total 311.425 / 1311.425 592.75 / 592.75 50 / 642.75 Output Total 725 / 725 800 / 800 Balance -413.575 / 586.425 592.75 / 592.75 -750 / -157.25 Weight last 48 hrs Weight 105 lb 9.6 oz Weight 105 lb Physical Exam 2 Const: OTHER: GENERAL: Patient is alert, awake and oriented x3. HEART: Regular S1 and S2. No murmur, rub or gallop. LUNGS: Clear to auscultate bilaterally. CENTRAL NERVOUS SYSTEM: Grossly nonfocal. EXTREMITIES: Lower extremities with out edema bilaterally. Data 04/14/24 02:10 04/14/24 05:25 Micro: Microbiology 04/14/24 09:16 Blood Culture - Preliminary Blood SPECIMEN COLLECTED 04/14/24 09:08 Blood Culture - Preliminary Blood SPECIMEN COLLECTED A&P Assessment and plan (1) Ventricular tachycardia (paroxysmal): (2) Elevated troponin: (3) Syncope: Qualifiers: Syncope type: unspecified Qualified Code(s): R55 - Syncope and collapse (4) Hypokalemia: Plan Patient was rule out for ischemia/cardiomyopathy with left heart cath and ventriculography. This morning patient despite of replenishing potassium and magnesium had episode of ventricular tachycardia, she was given p.o. metoprolol since then she is feeling much better doubt any further episode of ventricular tachycardia. Continue metoprolol 12.5 mg twice daily. Patient heart rate mostly runs around 40s to 50s. We will watch her overnight and may we will refer her for EP study/VT ablation\further plan will be devised as per progress the patient and tomorrow morning after further observation. Echocardiogram is pending. Attestations 2 Medical Necessity Statement*: Patient require continuation hospitalization for dangerous arrhythmia such as ventricular tachycardia syncope Coding Level of Care Code Acute Code for Chg Fwd Diagnoses Ventricular tachycardia (paroxysmal) I47.20 Elevated troponin R79.89 Syncope R55 Syncope type: unspecified Hypokalemia E87.6
[2024-04-15] VITALS (46 sets, daily range): BP systolic 80–201; BP diastolic 41–129; PULSE 39–79; RESP 10–29; TEMP 36.8–37.1; O2SAT 89–98
[2024-04-15] MEDS: oxyCODONE 5 mg IR Tab/Cap 10 MG PO ×3 (03:34→20:55)
[2024-04-15 03:51] LABS: Basophils % 0.3 %; Eosinophils # 0.6 10^3/uL (0.0-0.8); Eosinophils % 8.4 %; Hematocrit 40.2 % (36-47); Lymphocytes # 1.7 10^3/uL (0.8-4.8); Lymphocytes % 24.3 %; Mean Corpuscular HGB Conc 31.8 g/dL (30-55); Mean Corpuscular Hemoglobin 27.2 pg (27-33); Mean Corpuscular Volume 85.4 fl (85-98); Mean Platelet Volume 10.4 fL (7.4-10.4); Monocytes # 0.5 10^3/uL (0.2-0.9); Monocytes % 7.2 %; Neutrophils # 4.11 10^3/uL (1.8-7.7); Neutrophils % 59.5 %; Nucleated Red Blood Cells % 0 %; Platelet Count 264 10^3/cmm (157-399); Red Blood Count 4.71 10^6/uL (3.85-5.65); Red Cell Distribution Width 17.5 % (12.1-15.1); White Blood Count 6.91 10^3/uL (3.29-11.43)
[2024-04-15 04:21] LABS: Alanine Aminotransferase 6 U/L (0-33); Albumin Level 3.5 g/dL (3.5-5.2); Alkaline Phosphatase 76 U/L (35-105); Anion Gap 17.3 (5-19); Aspartate Amino Transferase 13 U/L (0-32); Blood Urea Nitrogen 27 mg/dL (8-23); Calcium 9.3 mg/dL (8.5-10.5); Carbon Dioxide 28 mmol/L (22-29); Chloride 98 mmol/L (98-107); Creatinine Clr Calc Pharmacy 20.3261; Globulin 2.2 g/dL (1.3-4.6); Glucose 104 mg/dL (65-115); Magnesium 2.4 mg/dL (1.7-2.3); Osmolality Calculated 295 mOsm/kg (285-295); Potassium 3.3 mmol/L (3.5-5.1); Sodium 140 mmol/L (136-145); Total Bilirubin 0.8 mg/dL (0.15-1.2); Total Protein 5.7 g/dL (6.6-8.7)
[2024-04-15] MEDS: levothyroxine 100 mcg Tablet PO (05:51)
[2024-04-15] MEDS: amlodipine 10 mg Tablet PO (05:51)
[2024-04-15] MEDS: ARIPiprazole 10 mg Tablet 2.5 MG PO (05:51)
[2024-04-15] MEDS: lisinopril 10 mg Tablet 15 MG PO (05:53)
[2024-04-15] MEDS: piperacillin-tazobactam 3.375 GM in sodium chloride 0.9% (plus) 50 ML IV ×2 (05:55→15:21)
[2024-04-15] MEDS: ipratropium-albuterol 3 mL Neb INHALATION (09:00)
[2024-04-15] MEDS: budesonide 0.5 mg/2 mL Neb INHALATION ×2 (09:00→19:51)
[2024-04-15] MEDS: sertraline 50 mg Tablet 25 MG PO (09:11)
[2024-04-15] MEDS: metoprolol tartrate 25 mg Tablet 12.5 MG PO ×2 (09:11→20:53)
[2024-04-15] MEDS: pantoprazole DR 40 mg Tablet PO ×2 (09:11→17:44)
[2024-04-15] MEDS: acetaminophen 325 mg Tablet 650 MG PO (10:30)
--- NOTE | 2024-04-15 13:34 | P.PN_ITS ---
<Statement entered by Estela Corado MD - 04/16/24 00:38> Patient was evaluated and cared for in conjunction with an advanced practice practitioner. I personally examined the patient and reviewed the chart and all pertinent data including imaging, telemetry, and laboratory results. I discussed the patient in detail with the advanced practice practitioner. Please see their note for complete H&P testing result and agreed upon plan of care for the patient. No more VT overnight, patient rhythm remained sinus bradycardia, blood pressure is labile, there was question of QT prolongation but looking at the EKGs and twelve-lead I have not seen any significant QTc could be secondary to bradycardia GENERAL: Patient is alert, awake and oriented x3. HEART: Regular S1 and S2. No murmur, rub or gallop. LUNGS: Clear to auscultate bilaterally. CENTRAL NERVOUS SYSTEM: Grossly nonfocal. EXTREMITIES: Lower extremities with out edema bilaterally. Assessment and plan Ventricular tachycardia Sinus bradycardia Labile hypertension Nausea/vomiting Rule out for acute coronary syndrome left heart catheterization showed normal coronaries no ischemic lesion detected, most likely would like to rule out scar VT may need EP study, patient would not like to go only to [place], bed in the [facility] and [facility] is a problem we will try again in the morning, patient has been given choice to transport to [facility] but she would like to consider [place] Continue metoprolol 12.5 mg p.o. twice daily Keep potassium above 4.0 and magnesium above 2.0 Further plan will be devised as per progress the patient Subjective 2 Subjective: She has not had any recurrence of VT overnight, heart rate has been bradycardic at times on metoprolol however currently in the 60s to 70s. Otherwise she is doing well. Vitals/I&O/Wt Last Vital Signs Temp 98.7 F 04/15/24 13:00 Pulse 75 04/15/24 10:30 Resp 14 04/15/24 13:10 BP 136/70 04/15/24 13:00 Pulse Ox 96 04/15/24 13:10 O2 Del Method Room Air 04/15/24 13:00 O2 Flow Rate 2 04/14/24 19:58 04/14/24 04/15/24 04/15/24 22:59 06:59 14:59 Intake Total 170 / 872.75 110 / 872.75 800 / 800 Output Total 800 / 800 Balance -630 / 72.75 110 / 72.75 800 / 800 Weight last 48 hrs Weight 107 lb 2.24 oz Weight 105 lb 9.6 oz Weight 105 lb Physical Exam 2 Const: COMMON NORMALS: no acute distress and patient oriented x3 GENERAL APPEARANCE: cooperative and comfortable ORIENTATION/CONSCIOUSNESS: Yes awake, Yes oriented to person, Yes oriented to place and Yes oriented to time Chest: COMMONS NORMALS: normal inspection of the chest and normal palpation of entire chest wall CHEST: Yes Symmetrical chest wall rise Resp: COMMON NORMALS: normal respiratory effort, No retractions, No use of accessory muscles and clear to auscultation bilaterally EFFORT & INSPECTION: Yes symmetric chest movement AUSCULTATION: clear to auscultation bilaterally Cardio: COMMON NORMALS: regular rate, regular rhythm, S1 normal heart sound present, S2 normal heart sound present, No gallops present (Cardio), No clicks present (Cardio), No murmurs present (Cardio) and No rub (Cardio) RATE: r egular rate RHYTHM: regular rhythm HEART SOUNDS: S1 normal heart sound present and S2 normal heart sound present PERIPHERAL PULSES: radial pulses present Extremity: COMMON NORMALS: no pedal edema Neuro: COMMON NORMALS: patient oriented x3 and moves all extremities S ENSORIUM/ORIENTATION: Yes oriented to person, Yes oriented to place and Yes oriented to time Data 04/15/24 03:37 04/15/24 03:37 Micro: Microbiology 04/14/24 09:16 Blood Culture - Preliminary Blood NEGATIVE TO DATE 04/14/24 09:08 Blood Culture - Preliminary Blood NEGATIVE TO DATE A&P Assessment and plan (1) Ventricular tachycardia (paroxysmal): No recurrence of VT overnight. Will observe her further today to determine if she needs referral or transfer for EP studies/VT ablation. Continue metoprolol tartrate 12.5 mg twice a day. Blood pressure well-controlled with amlodipine 10 mg daily, lisinopril 15 mg daily. Continue atorvastatin 40 mg daily. (2) Elevated troponin: (3) Syncope: Qualifiers: Syncope type: unspecified Qualified Code(s): R55 - Syncope and collapse Attestations 2 Medical Necessity Statement*: Observation for syncope and nonsustained ventricular tachycardia. Coding Level of Care Code Acute Code for [facility] Diagnoses Ventricular tachycardia (paroxysmal) I47.20 Elevated troponin R79.89 Syncope R55 Syncope type: unspecified
--- NOTE | 2024-04-15 16:56 | ECG_ITS ---
[facility]: 2024-[facility]15 Pat Name: Ivan Peguero Department: Room: ICU11 Gender: Female Manager Home: : 1945 Requested By: Eileen Bright Order Number: [id number] Soledad MD: Baltazar Osborne M.D. Measurements Intervals [place] Rate: 53 P: 29 [place]: 185 QRS: -23 QRSD: 133 T: -20 QT: 481 QTc: 453 Interpretive Statements SINUS BRADYCARDIA BORDERLINE LEFT AXIS DEVIATION [QRS AXIS < -20] RIGHT BUNDLE BRANCH BLOCK [120+ ms QRS DURATION, UPRIGHT V1, 40+ ms S IN I/aVL/V4/V5/V6] MINIMAL VOLTAGE CRITERIA FOR LVH, CONSIDER NORMAL VARIANT [MEETS CRITERIA IN ONE OF: R(aVL), S(V1), R(V5), R(V5/V6)+S(V1)] Compared to ECG 04/14/2024 02:17:35 Myocardial infarct finding no longer present Electronically Signed On 04-19-2024 23:17:30 GRANT SPECIALIST by Baltazar Osborne M.D. [email or web address]
[2024-04-15] MEDS: potassium chloride ER 20 mEq Tablet 40 MEQ PO (17:44)
--- NOTE | 2024-04-15 17:51 | PM.PN ---
Subjective Subjective: No V. tach episodes today. Medications: Reviewed: Yes Vitals/I&O/Wt Last Vital Signs Temp 98.7 F 04/15/24 13:00 Pulse 53 L 04/15/24 16:46 Resp 16 04/15/24 16:00 BP 133/60 04/15/24 16:00 Pulse Ox 96 04/15/24 16:00 O2 Del Method Room Air 04/15/24 16:00 O2 Flow Rate 2 04/14/24 19:58 04/15/24 04/15/24 04/15/24 06:59 14:59 22:59 Intake Total 110 / 872.75 800 / 800 Balance 110 / 72.75 800 / 800 Weight last 48 hrs Weight 48.598 kg Weight 47.899 kg Weight 47.627 kg Physical Exam Narrative: General: No acute distress, AO x3 HEENT: PERRLA, pupils bilaterally equal and reactive, pallors not present Chest: Normal vesicular breath sounds, no added sounds, equal good air entry bilaterally CVS: S1-S2 regular, no murmurs, no tachycardia, no gallops, no rubs Abdomen: Soft, nontender, no organomegaly, bowel sounds present Neuro: No focal deficits, no facial deformity, AO x3, power 5/5 in all limbs Data 04/16/24 03:29 04/16/24 03:29 Micro: Microbiology 04/14/24 09:16 Blood Culture - Preliminary Blood NEGATIVE TO DATE 04/14/24 09:08 Blood Culture - Preliminary Blood NEGATIVE TO DATE A&P Assessment and plan (1) Elevated troponin: Elevated troponin concerning for possible NSTEMI Ventricular tachycardia may be related to underlying ischemia Continuous telemetry monitoring Complete echocardiogram Patient started on heparin drip Cardiology consulted, appreciate recommendations Patient going to [facility] (2) Ventricular tachycardia (paroxysmal): Nonsustained ventricular tachycardia Telemetry monitoring Monitor and correct electrolytes, magnesium level ordered Mag sulfate already ordered Amiodarone push ordered Cardiology following, appreciate recommendations (3) Syncope: Patient with syncopal episode while in CT scanner, may be related to underlying V. tach Continuous telemetry monitoring Echo Qualifiers: Syncope type: unspecified Qualified Code(s): R55 - Syncope and collapse (4) Hypertension: Hypertensive urgency with current blood pressure 226/76 mmHg Patient being started on drip, goal to decrease blood pressure by at least 25% initially Will admit to ICU after cardiac cath Monitor blood pressure, adjust medications as needed Qualifiers: Hypertension type: essential hypertension Qualified Code(s): I10 - Essential (primary) hypertension (5) Atherosclerotic heart disease of [place] coronary artery with other forms of angina pectoris: Patient reports history of coronary disease without prior stents or bypass Ischemic evaluation noted as above (6) Hypokalemia: Correct underlying hypokalemia, potassium goal greater than 4 Checking and supplementing magnesium Continuous telemetry monitoring (7) Nausea & vomiting: CT abdomen and pelvis negative for acute findings, there is concern for pyelonephritis but urinalysis not consistent Gastroenteritis remains within the differential Rotate IV PPI given nausea and vomiting Antiemetics as needed Supportive care (8) Chronic pain: Plan to continue home medications Plan DVT prophylaxis: Heparin April 14, 2024. Patient went to cardiac [facility] today. Not found to have any obstructive CAD. Episode of V. tach this morning associated with syncope. She is currently on metoprolol following which episode has not recurred. Denies any current chest pain. She has been titrated off nitroglycerin infusion. Intermittent bradycardia with heart rate dropping down to the 40s. Will monitor her closely in the ICU as will likely require titration of beta-blockers and optimize dosing for management of V. tach and bradycardia. Patient may need EP studies in case continues to have recurrent V. tach. April 15, 2024 No V. tach episodes today. Denies any current chest pain. Continues to be on metoprolol, appears to be tolerating it well currently. Asymptomatic bradycardia intermittently. D/c Zosyn as no obvious source of infection currently. UA unremarkable. no clinical corelate for pyelonephritis as suspected on CT- there was mild bilateral renal pelviectasis without caliectasis perirenal fat stranding/edema. She has a large hiatal hernia containing majority of the stomach and portion of . the pancreas as well as splenic artery. No noted consolidation. Blood cx negative to date. Cardiology to discuss transfer for EP studies at higher center, will await recommendations Attestations Medical Necessity Statement*: likely needs EP studies Coding Level of Care Code Acute Code for Chg Fwd Moderate MDM includes number and complexity of problems actively addressed during encounter, amount and/or complexity of data reviewed/ordered and described risk of complication, morbidity or mortality of management as documented Diagnoses Elevated troponin R79.89 Ventricular tachycardia (paroxysmal) I47.20 Syncope R55 Syncope type: unspecified Essential hypertension I10 Hypertension type: essential hypertension Atherosclerotic heart disease of [place] coronary artery with other forms of angina pectoris I25.118 Hypokalemia E87.6 Nausea & vomiting R11.2 Chronic pain G89.29
--- NOTE | 2024-04-15 19:25 | PC.NURSE ---
Shift summary: Pt has rested in bed throughout most of shift. She is able to amb to restroom using a walker without difficulty. She has spent the day burrowed under blankets, resting or on her pone talking or playing games. Sinus rhythm noted on monitor throughout day, no ectopy noted. She has clear lungs and been on room air. She has had an excellent appetite, eating the majority of her meals. Only complaint of pain was her right hand which was IV site, after it was removed, no further complaints . New IV to left wrist area.
--- NOTE | 2024-04-15 20:45 | PC.NURSE ---
Dr. Corado at bedside to see pt, notified of current mag level and recent EKG, new order to d/c 1gm mag ordered.
[2024-04-15] MEDS: atorvastatin 40 mg Tablet PO (20:53)
[2024-04-15] MEDS: ropinirole 1 mg Tablet 0.5 MG PO (20:53)
[2024-04-15] MEDS: mirtazapine 15 mg Tablet 7.5 MG PO (20:54)
[2024-04-16] VITALS (48 sets, daily range): BP systolic 109–215; BP diastolic 53–106; PULSE 41–96; RESP 12–154; TEMP 36.4; O2SAT 90–99
[2024-04-16 03:39] LABS: Basophils % 0.1 %; Eosinophils # 0.6 10^3/uL (0.0-0.8); Eosinophils % 8.5 %; Hematocrit 37.3 % (36-47); Lymphocytes # 1.5 10^3/uL (0.8-4.8); Lymphocytes % 20.9 %; Mean Corpuscular HGB Conc 31.6 g/dL (30-55); Mean Corpuscular Hemoglobin 27.1 pg (27-33); Mean Corpuscular Volume 85.7 fl (85-98); Mean Platelet Volume 11.2 fL (7.4-10.4); Monocytes # 0.6 10^3/uL (0.2-0.9); Monocytes % 7.6 %; Neutrophils # 4.54 10^3/uL (1.8-7.7); Neutrophils % 62.6 %; Nucleated Red Blood Cells % 0 %; Platelet Count 248 10^3/cmm (157-399); Red Blood Count 4.35 10^6/uL (3.85-5.65); Red Cell Distribution Width 17.6 % (12.1-15.1); White Blood Count 7.26 10^3/uL (3.29-11.43)
[2024-04-16] MEDS: oxyCODONE 5 mg IR Tab/Cap 10 MG PO ×4 (03:40→21:28)
[2024-04-16 04:05] LABS: Alanine Aminotransferase < 5 U/L (0-33); Albumin Level 3.4 g/dL (3.5-5.2); Alkaline Phosphatase 72 U/L (35-105); Aspartate Amino Transferase 12 U/L (0-32); Blood Urea Nitrogen 23 mg/dL (8-23); Calcium 9.4 mg/dL (8.5-10.5); Carbon Dioxide 28 mmol/L (22-29); Chloride 102 mmol/L (98-107); Creatinine Clr Calc Pharmacy 26.7402; Globulin 2.2 g/dL (1.3-4.6); Glucose 104 mg/dL (65-115); Osmolality Calculated 292 mOsm/kg (285-295); Sodium 139 mmol/L (136-145); Total Bilirubin 0.8 mg/dL (0.15-1.2); Total Protein 5.6 g/dL (6.6-8.7)
[2024-04-16 04:19] LABS: Anion Gap 12.9 (5-19); Potassium 3.9 mmol/L (3.5-5.1)
[2024-04-16] MEDS: levothyroxine 100 mcg Tablet PO (06:13)
[2024-04-16] MEDS: amlodipine 10 mg Tablet PO (06:13)
[2024-04-16] MEDS: ARIPiprazole 10 mg Tablet 2.5 MG PO (06:14)
[2024-04-16] MEDS: pantoprazole DR 40 mg Tablet PO ×2 (08:22→17:18)
[2024-04-16] MEDS: sertraline 50 mg Tablet 25 MG PO (08:23)
[2024-04-16] MEDS: budesonide 0.5 mg/2 mL Neb INHALATION (08:24)
[2024-04-16] MEDS: metoprolol tartrate 25 mg Tablet 12.5 MG PO ×2 (08:24→21:30)
--- NOTE | 2024-04-16 10:04 | P.PN_ITS ---
<Statement entered by Estela Corado MD - 04/16/24 20:17> Patient was evaluated and cared for in conjunction with an advanced practice practitioner. I personally examined the patient and reviewed the chart and all pertinent data including imaging, telemetry, and laboratory results. I discussed the patient in detail with the advanced practice practitioner. Please see their note for complete H&P testing result and agreed upon plan of care for the patient. No more VT GENERAL: Patient is alert, awake and oriented x3. HEART: Regular S1 and S2. No murmur, rub or gallop. LUNGS: Clear to auscultate bilaterally. CENTRAL NERVOUS SYSTEM: Grossly nonfocal. EXTREMITIES: Lower extremities with out edema bilaterally. Assessment and plan Ventricular tachycardia Electrolyte imbalance Sinus bradycardia Continue beta-shital as in the last 36 hours we have not seen any more VT. Patient is awaiting transfer to [facility] for EP study and if indicated ablation Subjective 2 Subjective: She is sitting up in the chair this morning, feeling well. No recurrence of NSVT overnight, however heart rates were in the 40s to 50s. Creatinine today 1.3. Plan is still to transfer to [place] for electrophysiology evaluation. Vitals/I&O/Wt Last Vital Signs Temp 97.6 F 04/16/24 08:00 Pulse 53 L 04/16/24 08:24 Resp 16 04/16/24 08:24 BP 172/70 04/16/24 06:00 Pulse Ox 96 04/16/24 08:24 O2 Del Method Nasal Cannula 04/16/24 08:24 O2 Flow Rate 2 04/16/24 08:24 04/15/24 04/16/24 04/16/24 22:59 06:59 14:59 Intake Total 550 / 1400 50 / 1400 240 / 240 Balance 550 / 1400 50 / 1400 240 / 240 Weight last 48 hrs Weight 110 lb 6.4 oz Weight 107 lb 2.24 oz Physical Exam 2 Const: COMMON NORMALS: no acute distress and patient oriented x3 GENERAL APPEARANCE: cooperative and comfortable ORIENTATION/CONSCIOUSNESS: Yes awake, Yes oriented to person, Yes oriented to place and Yes oriented to time Chest: COMMONS NORMALS: normal inspection of the chest and normal palpation of entire chest wall CHEST: Yes Symmetrical chest wall rise Resp: COMMON NORMALS: normal respiratory effort, No retractions, No use of accessory muscles and clear to auscultation bilaterally EFFORT & INSPECTION: Yes symmetric chest movement AUSCULTATION: clear to auscultation bilaterally Cardio: COMMON NORMALS: regular rate, regular rhythm, S1 normal heart sound present, S2 normal heart sound present, No gallops present (Cardio), No clicks present (Cardio), No murmurs present (Cardio) and No rub (Cardio) RATE: r egular rate RHYTHM: regular rhythm HEART SOUNDS: S1 normal heart sound present and S2 normal heart sound present PERIPHERAL PULSES: radial pulses present Extremity: COMMON NORMALS: no pedal edema Neuro: COMMON NORMALS: patient oriented x3 and moves all extremities S ENSORIUM/ORIENTATION: Yes oriented to person, Yes oriented to place and Yes oriented to time Data 04/16/24 03:29 04/16/24 03:29 Micro: Microbiology 04/14/24 09:16 Blood Culture - Preliminary Blood NEGATIVE TO DATE 04/14/24 09:08 Blood Culture - Preliminary Blood NEGATIVE TO DATE A&P Assessment and plan (1) Ventricular tachycardia (paroxysmal): (2) Sinus bradycardia: (3) Hypertension: Qualifiers: Hypertension type: essential hypertension Qualified Code(s): I10 - Essential (primary) hypertension Plan Heart rate is still sinus bradycardia overnight in the 40s to 50s. No recurrence of VT overnight. Continue metoprolol tartrate 12.5 mg twice a day. Also continue atorvastatin, amlodipine 10 mg daily. Blood pressure is still labile running 110-170 systolic. She has orders for hydralazine if needed. Attestations 2 Medical Necessity Statement*: Planning transfer to in [place] for VT Coding Level of Care Code Acute Code for [facility] Diagnoses Ventricular tachycardia (paroxysmal) I47.20 Sinus bradycardia R00.1 Essential hypertension I10 Hypertension type: essential hypertension
--- NOTE | 2024-04-16 14:48 | PC.SOCIAL ---
IMM Update pg 2 of IMM updated and reviewed w/ patient. Copy provided and copy dated, initialed and placed in chart.
--- NOTE | 2024-04-16 15:34 | PM.PN ---
Vitals/I&O/Wt Last Vital Signs Temp 97.6 F 04/16/24 08:00 Pulse 46 L 04/16/24 14:30 Resp 15 04/16/24 14:30 BP 166/67 04/16/24 14:30 Pulse Ox 94 04/16/24 14:30 O2 Del Method Nasal Cannula 04/16/24 08:24 O2 Flow Rate 2 04/16/24 08:24 04/16/24 04/16/24 04/16/24 06:59 14:59 22:59 Intake Total 50 / 1400 460 / 460 Balance 50 / 1400 460 / 460 Weight last 48 hrs Weight 50.077 kg Weight 48.598 kg Data 04/16/24 03:29 04/16/24 03:29 Coding Level of Care Code Acute Code for Chg Lynnette
--- NOTE | 2024-04-16 16:31 | PC.OT ---
OT tx attempted at this time. Pt lying in bed with eyes closed. Pt looks uncomfortable in current position. Therapist wakes pt to place pillows for neck support. Pt groggy and immediately falls back asleep. OT tx to be attempted at later time if possible.
--- NOTE | 2024-04-16 17:07 | PM.TDS ---
Transfer Summary Providers Date of Admission: 04/14/24 09:34 Date of Discharge/Transfer: 04/16/24 Attending Provider at Admission: Estela Corado MD Attending Provider at Transfer: Eileen Bright MD Consults: Cardiology, Dr. Corado Primary Care Provider: Lynda Lopez MD Transfer Plans: Anticipated date of transfer: 04/16/24. Receiving Facility: [facility] . Receiving Provider: Dr. Stanley/ Hospitalist. Diagnoses at Discharge Discharge Diagnosis (1) Elevated troponin: Status: Acute (2) Ventricular tachycardia (paroxysmal): Status: Acute (3) Syncope: Status: Acute Qualifiers: Syncope type: unspecified Qualified Code(s): R55 - Syncope and collapse (4) Hypertension: Status: Chronic Qualifiers: Hypertension type: essential hypertension Qualified Code(s): I10 - Essential (primary) hypertension (5) Atherosclerotic heart disease of [place] coronary artery with other forms of angina pectoris: Status: Chronic (6) Hypokalemia: Status: Acute (7) Nausea & vomiting: Status: Acute (8) Chronic pain: Status: Chronic Reason for Visit Reason for Visit n/v; abd pain Hospital Course Hospital Course Ivan Peguero is a 78 year old female with a past medical history significant for large hiatal hernia, chronic pain, osteoarthritis, hypertension, hypothyroidism, restless leg syndrome, fibromyalgia, hyperlipidemia, coronary artery disease who presented to the ER on 04/13/2024 with c/o generalized weakness x 2 days, nausea with multiple episodes of emesis followed by dry heaves. She had generalized abdominal discomfort. In the ER she was noted to have multiple PVCs including bigeminy, later she had witnessed polymorphic VT on the monitor, she also started complaining of chest pain radiating towards the back. Patient was sent for CT abdomen thorax to rule out aortic dissection while laying on the CT scan patient passed out with seizure-like activity unfortunately she was not on monitor therefore cannot say for sure whether she had VT on not, later in the ER she constantly remained in bigeminal rhythm with multiple PVCs with complaint of chest pain. Cardiology service was consulted , Due to concern for NSTEMI patient was taken to the [facility] where she was found to have no occlusive disease. Please see cardiology note for details with regards to findings in [facility]. Patient had another episode of nonsustained V. tach on the morning of April 14, 2023. She was started on treatment with metoprolol 12.5 mg p.o. twice daily. Dose of metoprolol has been unable to be increased any further due to intermittent bradycardia with heart rate dropping in the 40s to 50s. It was recommended that patient be transferred to higher center for EP study/VT ablation. Cardiology service contacted EP at [facility] and patient has been accepted. She is stable for transfer today. Patient was initially placed on piperacillin/tazobactam upon admission due to concern for possible gastroenteritis. Overall infectious workup has remained negative so far. No obvious source of infection currently apparent. UA unremarkable. no clinical corelate for pyelonephritis as suspected on CT- there was mild bilateral renal pelviectasis without caliectasis perirenal fat stranding/edema. She has a large hiatal hernia containing majority of the stomach and portion of the pancreas as well as splenic artery. No noted consolidation. Blood cx negative to date. Physical Exam Narrative: General: No acute distress, AO x3 HEENT: PERRLA, pupils bilaterally equal and reactive, pallors not present Chest: Normal vesicular breath sounds, no added sounds, equal good air entry bilaterally CVS: S1-S2 regular, no murmurs, no tachycardia, no gallops, no rubs Abdomen: Soft, nontender, no organomegaly, bowel sounds present Neuro: No focal deficits, no facial deformity, AO x3, power 5/5 in all limbs TS Data Studies Completed and Pending Pending at discharge Category Date Time Status Blood Culture Stat Lab 04/14/24 09:16 Results CMP [Comprehensive Metabolic Panel] AM LABS Lab 04/17/24 04:00 Ordered Complete Blood Count w/Auto AM LABS Lab 04/17/24 04:00 Ordered MRSA PCR OZH (swab) Routine Lab 04/14/24 06:10 Uncollected US echo complete [CV. echo complete* [id number]] Stat Ultrasound 04/13/24 21:55 Taken Completed Studies During Hospitalization Category Date Time Status CTA chest abdomen pelvis [CT ang ches abdpel 27897/ Cat Scan 04/13/24 20:52 Completed [id number]] Stat [employer]IT[employer]ATEGY [employer]NALYST request for service Routine Exams 04/13/24 22:51 Completed CXRP [XR chest 1V portable [id number]] Stat Exams 04/13/24 20:19 Completed Laboratory Last Values WBC 7.26 10^3/uL (3.29-11.43) 04/16/24 03: RBC 4.35 10^6/uL (3.85-5.65) 04/16/24 03: Hgb 11.80 g/dL (11.27-16.99) 04/16/24 03: Hct 37.3 % (36-47) 04/16/24 03: MCV 85.7 fl (85-98) 04/16/24 03: MCH 27.1 pg (27-33) 04/16/24 03: MCHC 31.6 g/dL (30-55) 04/16/24 03: RDW 17.6 % (12.1-15.1) H 04/16/24 03: Plt Count 248 10^3/cmm (157-399) 04/16/24 03: MPV 11.2 fL (7.4-10.4) H 04/16/24 03: Neut % (Auto) 62.6 % 04/16/24 03: Lymph % (Auto) 20.9 % 04/16/24 03: Hayes % (Auto) 7.6 % 04/16/24 03: Eos % (Auto) 8.5 % 04/16/24 03: Baso % (Auto) 0.1 % 04/16/24 03: Neut # (Auto) 4.54 10^3/uL (1.8-7.7) 04/16/24 03: Lymph # (Auto) 1.5 10^3/uL (0.8-4.8) 04/16/24 03: Hayes # (Auto) 0.6 10^3/uL (0.2-0.9) 04/16/24 03: Eos # (Auto) 0.6 10^3/uL (0.0-0.8) 04/16/24 03: Baso # (Auto) 0.0 10^3/uL (0.0-0.1) 04/16/24 03: Nucleated RBC % (auto) 0 % 04/16/24 03: Nucleated RBCs # 0.0 /100WBC 04/16/24 03: PT 14.20 SECONDS (12.1-14.9) 04/13/24 23:42 INR 1.03 (0.8-1.2) 04/13/24 23:42 APTT 37.0 SECONDS (23.9-36.7) H 04/13/24 23:42 Sodium 139 mmol/L (136-145) 04/16/24 03:29 Potassium 3.9 mmol/L (3.5-5.1) 04/16/24 03:29 Chloride 102 mmol/L (98-107) 04/16/24 03:29 Carbon Dioxide 28 mmol/L (22-29) 04/16/24 03:29 Anion Gap 12.9 (5-19) 04/16/24 03:29 BUN 23 mg/dL (8-23) 04/16/24 03:29 Creatinine 1.3 mg/dL (0.5-0.9) H 04/16/24 03:29 GFR Calculation Not Reportable 04/16/24 03:29 Glucose 104 mg/dL (65-115) 04/16/24 03:29 POC Glucose 94 mg/dL (70-110) 04/14/24 05:46 Calculated Osmolality 292 mOsm/kg (285-295) 04/16/24 03:29 Calcium 9.4 mg/dL (8.5-10.5) 04/16/24 03:29 Phosphorus 3.1 mg/dL (2.5-4.5) 04/14/24 05:25 Magnesium 2.0 mg/dL (1.7-2.3) 04/16/24 03:29 Total Bilirubin 0.8 mg/dL (0.15-1.2) 04/16/24 03:29 AST 12 U/L (0-32) 04/16/24 03:29 ALT < 5 U/L (0-33) 04/16/24 03:29 Alkaline Phosphatase 72 U/L (35-105) 04/16/24 03:29 Troponin T Baseline 190 ng/L (0-10) H* 04/13/24 19:17 Troponin T 120 Minute 131.6 ng/L (0-10) H 04/13/24 22:10 Delta Troponin T -58.4 ABS# (0-10) L 04/13/24 22:10 Troponin T Hi Sens 6Hr 138.9 ng/L (0-10) H 04/14/24 02:10 Troponin T Hi Sens 6Hr Delta -51.1 ng/L (0-12) L 04/14/24 02:10 NT-Pro-B Natriuret Pep 1706 pg/mL (0-450) H 04/13/24 19:17 Total Protein 5.6 g/dL (6.6-8.7) L 04/16/24 03:29 Albumin 3.4 g/dL (3.5-5.2) L 04/16/24 03:29 Globulin 2.2 g/dL (1.3-4.6) 04/16/24 03:29 Lipase 21 U/L (13-60) 04/13/24 19:17 Procalcitonin 63.56 ng/mL (0-0.5) H 04/14/24 05:25 Urine Color Yellow (Yellow) 04/13/24 18:50 Urine Appearance Clear (CLEAR) 04/13/24 18:50 Urine pH 6.5 (5-7) 04/13/24 18:50 Ur Specific [place] 1.012 (1.005-1.030) 04/13/24 18:50 Urine Protein 1+ (Negative) A 04/13/24 18:50 Urine Glucose (UA) Negative (Normal) 04/13/24 18:50 Urine Ketones Negative (Negative) 04/13/24 18:50 Urine Blood Negative (Negative) 04/13/24 18:50 Urine Nitrate Negative (Negative) 04/13/24 18:50 Urine Bilirubin Negative (Negative) 04/13/24 18:50 Urine Urobilinogen 0.2 mg/dL (Negative) 04/13/24 18:50 Ur Leukocyte Esterase Negative (Negative) 04/13/24 18:50 Urine RBC 0-2 /hpf (0-2) 04/13/24 18:50 Urine WBC 0-5 /hpf (0-5) 04/13/24 18:50 Ur Squamous Epith Cells 0-5 /hpf (0-5) 04/13/24 18:50 Urine Bacteria None seen /hpf (NONE) 04/13/24 18:50 Hyaline Casts 0-4 /lpf H 04/13/24 18:50 Radiology Impressions Chest X-Ray 04/13/24 20:19 IMPRESSION: No acute findings. Chest/Abdomen/Pelvis CTA 04/13/24 20:52 IMPRESSION: 1. No aortic dissection or evidence of intramural hematoma. 2. Mild bilateral renal pelviectasis without caliectasis and developed moderate vmen-[id number]-[id number]-right perirenal fat stranding/edema. Correlate for pyelonephritis. 3. Large hiatal hernia containing majority of the stomach and portion of the pancreas as well as splenic artery. 4. Additional chronic and incidental findings as above. Recent Clincial Data Last Vital Signs Temp 97.6 F 04/16/24 08:00 Pulse 44 L 04/16/24 16:00 Resp 21 H 04/16/24 16:00 BP 158/68 04/16/24 16:00 Pulse Ox 95 04/16/24 16:00 O2 Del Method Nasal Cannula 04/16/24 08:24 O2 Flow Rate 2 04/16/24 08:24 Vital Signs Temp Pulse Resp BP Pulse Ox O2 Del Method O2 Flow Rate 04/16/24 16:00 44 L 21 H 158/68 95 04/16/24 15:30 62 19 H 130/83 04/16/24 15:00 166/67 04/16/24 14:30 46 L 15 166/67 94 04/16/24 14:00 55 L 18 96 04/16/24 13:30 81 22 H 04/16/24 13:00 48 L 19 H 04/16/24 12:30 48 L 15 93 04/16/24 12:00 143/59 04/16/24 11:30 45 L 14 153/68 97 04/16/24 11:00 96 22 H 153/68 04/16/24 10:30 77 24 H 180/81 04/16/24 10:04 154 H 95 04/16/24 10:00 67 23 H 180/81 96 04/16/24 09:30 67 22 H 189/79 98 04/16/24 09:00 59 L 14 177/92 95 04/16/24 08:30 59 L 18 190/75 94 04/16/24 08:24 53 L 16 96 Nasal Cannula 2 04/16/24 08:00 53 L 13 190/75 04/16/24 08:00 97.6 F 04/16/24 07:30 44 L 17 169/79 94 04/16/24 07:00 43 L 12 109/91 98 04/16/24 06:00 42 L 13 172/70 95 04/16/24 05:41 41 L 04/16/24 05:30 41 L 14 138/60 99 Nasal Cannula 2 Intake & Output/Weight 04/14/24 04/15/24 04/16/24 04/17/24 06:59 06:59 06:59 06:59 Intake Total 1311.425 / 1311.425 872.75 / 872.75 1400 / 1400 460 / 460 Output Total 725 / 725 800 / 800 Balance 586.425 / 586.425 72.75 / 72.75 1400 / 1400 460 / 460 Weight 47.899 kg 48.598 kg 50.077 kg Vitals Last Vital Signs Temp 97.6 F 04/16/24 08:00 Pulse 44 L 04/16/24 16:00 Resp 21 H 04/16/24 16:00 BP 158/68 04/16/24 16:00 Pulse Ox 95 04/16/24 16:00 O2 Del Method Nasal Cannula 04/16/24 08:24 O2 Flow Rate 2 04/16/24 08:24 TS Medications Medications Acetaminophen (Acetaminophen 325 Mg Tablet) 650 mg PO Q6H PRN PRN Reason: Mild/Mod Pain Or Temp >/= 101 Last Admin: 04/15/24 10:30 Dose: 650 mg Al Hydrox/Mg Hydrox/Simethicone (Cmfi-Zsk-Iwjnnqhos-Delmer 30 Ml Udc) 30 ml PO Q15M PRN PRN Reason: INDIGESTION Albuterol/Ipratropium (Ipratropium-Albuterol 3 Ml Neb) 3 ml INHALATION Q6H PRN PRN Reason: SHORTNESS OF BREATH Last Admin: 04/15/24 09:00 Dose: 3 ml Amlodipine Besylate (Amlodipine 10 Mg Tablet) 10 mg PO QAM [facility] Last Admin: 04/16/24 06:13 Dose: 10 mg Aripiprazole (Aripiprazole 10 Mg Tablet) 2.5 mg PO QAM [facility] Last Admin: 04/16/24 06:14 Dose: 2.5 mg Atorvastatin Calcium (Atorvastatin 40 Mg Tablet) 40 mg PO BEDTIME [facility] Last Admin: 04/15/24 20:53 Dose: 40 mg Atropine Sulfate (Atropine 1 Mg/Ml Sdv 1 Ml) 0.5 mg IVP PRN PRN PRN Reason: Symptomatic bradycardia Budesonide (Budesonide 0.5 Mg/2 Ml Neb) 0.5 mg INHALATION BID.RESPIRATORY [facility] Last Admin: 04/16/24 08:24 Dose: 0.5 mg Fentanyl (Fentanyl 50 Mcg/Ml Inj 2ml) 50 mcg IVP PRN PRN PRN Reason: Prior to sheath removal Hydralazine HCl (Hydralazine 20 Mg/Ml Inj 1 Ml) 10 mg IVP Q4H PRN PRN Reason: SBP > 160 Levothyroxine Sodium (Levothyroxine 100 Mcg Tablet) 100 mcg PO QAM [facility] Last Admin: 04/16/24 06:13 Dose: 100 mcg Magnesium Hydroxide (Magnesium Hydroxide 30 Ml Udc) 30 ml PO DAILY PRN PRN Reason: CONSTIPATION Metoprolol Tartrate (Metoprolol Tartrate 25 Mg Tablet) 12.5 mg PO BID@0900,2100 [facility] Last Admin: 04/16/24 08:24 Dose: 12.5 mg Mirtazapine (Mirtazapine 15 Mg Tablet) 7.5 mg PO BEDTIME [facility] Last Admin: 04/15/24 20:54 Dose: 7.5 mg Morphine Sulfate (Morphine 4 Mg/Ml Sdv 1 Ml) 2 mg IVP Q8H PRN PRN Reason: SEVERE PAIN Naloxone HCl (Naloxone 0.4 Mg/Ml Sdv) 0.1 mg IVP Q2M PRN PRN Reason: RESPIRATORY RATE < 8/MIN Nitroglycerin (Nitroglycerin 0.4 Mg Sublingual Tablet) 0.4 mg SUBLINGUAL Q5M PRN PRN Reason: CHEST PAIN Ondansetron HCl (Ondansetron 4 Mg Tablet) 4 mg PO Q8H PRN PRN Reason: NAUSEA Oxycodone HCl (Oxycodone 5 Mg Ir Tab/Cap) 10 mg PO Q4H PRN PRN Reason: SEVERE PAIN Last Admin: 04/16/24 10:04 Dose: 10 mg Pantoprazole Sodium (Pantoprazole Dr 40 Mg Tablet) 40 mg PO BID [facility] Last Admin: 04/16/24 08:22 Dose: 40 mg Ropinirole HCl (Ropinirole 1 Mg Tablet) 0.5 mg PO BEDTIME [facility] Last Admin: 04/15/24 20:53 Dose: 0.5 mg Sertraline HCl (Sertraline 50 Mg Tablet) 25 mg PO DAILY [facility] Last Admin: 04/16/24 08:23 Dose: 25 mg Discontinued Medications Acetaminophen (Acetaminophen 325 Mg Tablet) 650 mg PO Q6H PRN PRN Reason: MILD PAIN Amiodarone HCl (Amiodarone 50 Mg/Ml Sdv 3 Ml) 150 mg IVP ONCE ONE Stop: 04/13/24 21:25 Last Admin: 04/13/24 21:53 Dose: 150 mg Amlodipine Besylate (Amlodipine 5 Mg Tablet) 5 mg PO ONCE ONE Stop: 04/14/24 20:01 Last Admin: 04/14/24 20:05 Dose: 5 mg Aspirin (Aspirin 81 Mg Chew Tablet) 324 mg PO NOW ONE Stop: 04/13/24 21:21 Last Admin: 04/13/24 21:26 Dose: 324 mg Fentanyl (Fentanyl 50 Mcg/Ml Inj 2ml) Confirm Administered Dose 100 mcg .ROUTE .STK-MED ONE Stop: 04/13/24 22:53 Heparin Sodium (Porcine) (Heparin 5,000 Unit/Ml Inj 1 Ml) 4,000 unit IVP ONCE ONE Stop: 04/13/24 22:29 Last Admin: 04/13/24 22:52 Dose: 4,000 unit Heparin Sodium (Porcine) (Heparin 5,000 Unit/Ml Inj 1 Ml) Confirm Administered Dose 10,000 unit .ROUTE .STK-MED ONE Stop: 04/13/24 22:53 Sodium Chloride (Sodium Chloride 0.9%) 1,000 mls @ 999 mls/hr IV .Q1H1M ONE Stop: 04/13/24 20:02 Last Infusion: 04/13/24 21:00 Dose: Infused Nicardipine/Sodium Chloride (Cardene) 20 mg in 200 mls @ 0 mls/hr IV .Q0M [facility]; Protocol Nitroglycerin/Dextrose (Nitroglycerin Drip) 50 mg in 250 mls @ 0 mls/hr IV .Q0M [facility]; Protocol Last Titration: 04/14/24 13:15 Dose: 0 mcg/min, 0 mls/hr Lidocaine HCl 5 ml/ Potassium (Chloride) 105 mls @ 52.5 mls/hr IV ONCE ONE Stop: 04/14/24 00:14 Last Infusion: 04/14/24 00:28 Dose: Infused Lidocaine HCl 5 ml/ Potassium (Chloride) 105 mls @ 52.5 mls/hr IV ONCE ONE Stop: 04/14/24 00:44 Last Infusion: 04/14/24 02:40 Dose: Infused Magnesium Sulfate (Magnesium Sulfate Premix) 2 gm in 50 mls @ 50 mls/hr IV ONCE ONE Stop: 04/13/24 23:27 Last Infusion: 04/14/24 00:29 Dose: Infused Lidocaine HCl (Xylocaine) Confirm Administered Dose 20 mls @ as directed .ROUTE .STK-MED ONE Stop: 04/13/24 22:53 Sodium Chloride (Sodium Chloride 0.9%) Confirm Administered Dose 1,000 mls @ as directed .ROUTE .[facility]-MED ONE Stop: 04/13/24 22:53 Magnesium Sulfate (Magnesium Sulfate Premix) 2 gm in 50 mls @ 50 mls/hr IV ONCE ONE Stop: 04/14/24 07:06 Last Admin: 04/14/24 06:13 Dose: 50 mls/hr Piperacillin Sod/Tazobactam (Sod 3.375 gm/ Sodium Chloride) 50 mls @ 12.5 mls/hr IV Q8H [facility]; Protocol Last Infusion: 04/15/24 20:52 Dose: Infused Magnesium Sulfate/Dextrose (Magnesium Sulfate Premix) 1 gm in 100 mls @ 200 mls/hr IV ONCE ONE Stop: 04/15/24 18:20 Last Admin: 04/15/24 20:51 Dose: Not Given Iohexol (Iohexol 350 Mg/Ml 500 Ml Btl (Per Ml)) 0 ml IV ONCE ONE Stop: 04/13/24 21:05 Last Admin: 04/13/24 21:05 Dose: 100 ml Lisinopril (Lisinopril 10 Mg Tablet) 15 mg PO [facility] Last Admin: 04/15/24 05:53 Dose: 15 mg Metoprolol Succinate (Metoprolol Succinate Er (24 Hr) 25 Mg Tablet) 25 mg PO DAILY [facility] Metoprolol Succinate (Metoprolol Succinate Er (24 Hr) 25 Mg Tablet) 25 mg PO DAILY [facility] Last Admin: 04/14/24 17:37 Dose: Not Given Metoprolol Tartrate (Metoprolol Tartrate 25 Mg Tablet) 12.5 mg PO ONCE ONE Stop: 04/14/24 05:53 Last Admin: 04/14/24 06:19 Dose: Not Given Metoprolol Tartrate (Metoprolol Tartrate 25 Mg Tablet) 12.5 mg PO DAILY [facility] Last Admin: 04/14/24 10:40 Dose: 12.5 mg Metoprolol Tartrate (Metoprolol Tartrate 1 Mg/1 Ml Sdv 5 Ml) 5 mg IVP ONCE ONE Stop: 04/14/24 06:07 Last Admin: 04/14/24 06:13 Dose: 5 mg Metoprolol Tartrate (Metoprolol Tartrate 1 Mg/1 Ml Sdv 5 Ml) Confirm Administered Dose 5 mg .ROUTE .STK-MED ONE Stop: 04/14/24 06:07 Last Admin: 04/14/24 06:20 Dose: Not Given Midazolam HCl (Midazolam 1 Mg/Ml Inj 2 Ml) Confirm Administered Dose 2 mg .ROUTE .[facility]-MED ONE Stop: 04/13/24 22:53 Morphine Sulfate (Morphine 4 Mg/Ml Sdv 1 Ml) 4 mg IVP ONCE ONE Stop: 04/13/24 19:03 Last Admin: 04/13/24 19:12 Dose: 4 mg Morphine Sulfate (Morphine 4 Mg/Ml Sdv 1 Ml) 4 mg IVP Q4H PRN PRN Reason: SEVERE PAIN Last Admin: 04/14/24 01:22 Dose: 4 mg Nitroglycerin (Nitroglycerin 0.4 Mg Sublingual Tablet) 0.4 mg SUBLINGUAL ONCE ONE Stop: 04/13/24 21:21 Last Admin: 04/13/24 21:26 Dose: 0.4 mg Nitroglycerin (Nitroglycerin 5 Mg/Ml Sdv 10 Ml) Confirm Administered Dose 50 mg .ROUTE .STUrjanet-MED ONE Stop: 04/13/24 22:52 Ondansetron HCl (Ondansetron 2 Mg/Ml Sdv 2 Ml) 4 mg IVP ONCE ONE Stop: 04/13/24 19:03 Last Admin: 04/13/24 19:12 Dose: 4 mg Ondansetron HCl (Ondansetron 2 Mg/Ml Sdv 2 Ml) 4 mg IVP Q8H PRN PRN Reason: vomiting, or N/V if npo Oxycodone HCl (Oxycodone 5 Mg Ir Tab/Cap) 10 mg PO Q8H PRN PRN Reason: Pain, Moderate Last Admin: 04/15/24 20:55 Dose: 10 mg Oxycodone HCl (Oxycodone 5 Mg Ir Tab/Cap) 10 mg PO ONCE ONE Stop: 04/14/24 21:11 Last Admin: 04/14/24 22:27 Dose: 10 mg Oxycodone HCl (Oxycodone 5 Mg Ir Tab/Cap) 10 mg PO Q4H PRN PRN Reason: SEVERE PAIN Oxycodone/Acetaminophen (Oxycodone-Apap 10-325 Mg Tablet) 1 - 2 tab PO Q4H PRN PRN Reason: MODERATE TO SEVERE PAIN Last Admin: 04/14/24 09:49 Dose: 2 tab Pantoprazole Sodium (Pantoprazole 40 Mg Sdv) 40 mg IVP Q12H [facility] Last Admin: 04/14/24 12:07 Dose: 40 mg Potassium Chloride (Potassium Chloride Oral Liq 20 Meq/15 Ml Udc) 20 meq PO ONCE ONE Stop: 04/13/24 22:28 Last Admin: 04/13/24 22:52 Dose: 20 meq Potassium Chloride (Potassium Chloride Er 20 Meq Tablet) 40 meq PO ONCE ONE Stop: 04/15/24 16:47 Last Admin: 04/15/24 17:44 Dose: 40 meq Prochlorperazine Edisylate (Prochlorperazine 10 Mg/2 Ml Inj) 5 mg IVP ONCE ONE Stop: 04/13/24 21:41 Last Admin: 04/13/24 21:47 Dose: 5 mg Temazepam (Temazepam 15 Mg Capsule) 15 mg PO BEDTIME PRN PRN Reason: INSOMNIA Trazodone HCl (Trazodone 50 Mg Tablet) 25 mg PO QPM PRN PRN Reason: insomnia Last Admin: 04/14/24 01:56 Dose: 25 mg Allergies No Known Allergies Allergy (Verified 01/04/24 19:29) Home Medications calcium 600 mg (as carbonate)-vit D3 10 mcg (400 unit) chewable tablet (Calcium 600 with Vitamin D3) 1 tab PO DAILY 03/28/19 [History Confirmed 04/14/24] albuterol sulfate 90 mcg/actuation aerosol inhaler 2 puff inhalation Q6H PRN Shortness Of Breath Or Wheezing 07/24/22 [History Confirmed 04/14/24] atorvastatin 40 mg tablet 40 mg PO BEDTIME 07/24/22 [History Confirmed 04/14/24] Monet Heatoner [employer] #1 ea 10/03/22 [Rx Confirmed 04/14/24] oxycodone 10 mg tablet 10 - 20 mg PO Q4H PRN Pain, Moderate 11/19/23 [History Confirmed 04/14/24] ropinirole 1 mg tablet 0.5 mg PO BEDTIME 11/19/23 [History Confirmed 04/14/24] budesonide-formoterol HFA 160 mcg-4.5 mcg/actuation aerosol inhaler (Symbicort) 2 puff inhalation BID 12/09/23 [History Confirmed 04/14/24] pantoprazole 40 mg tablet,delayed release 40 mg PO BID #60 tabs 12/14/23 [Rx Confirmed 04/14/24] sennosides 8.6 mg tablet (senna) 17.2 mg (2 x 8.6 mg) PO BID #60 tabs 12/14/23 [Rx Confirmed 04/14/24] sucralfate 1 gram tablet 1 g PO AC&BEDTIME #120 tabs 12/14/23 [Rx Confirmed 04/14/24] trazodone 50 mg tablet 25 mg (1/2 x 50 mg) PO QPM PRN insomnia #4 tabs 01/05/24 [Rx Confirmed 04/14/24] ondansetron 4 mg disintegrating tablet 4 mg PO Q8H PRN Nausea And Vomiting 01/09/24 [History Confirmed 04/14/24] sertraline 25 mg tablet 25 mg PO DAILY #100 tabs 02/15/24 [Rx Confirmed 04/14/24] meloxicam 7.5 mg tablet 7.5 mg PO .Twice daily #14 tabs 03/06/24 [Rx Confirmed 04/14/24] cyanocobalamin (vitamin B-12) 1,000 mcg tablet (Vitamin B-12) 1,000 mcg PO DAILY #90 tabs 03/28/24 [Rx Confirmed 04/14/24] amlodipine 10 mg tablet 10 mg PO QAM 04/14/24 [History Confirmed 04/14/24] aripiprazole 5 mg tablet 2.5 mg PO QAM 04/14/24 [History Confirmed 04/14/24] ferrous gluconate 324 mg (38 mg iron) tablet 324 mg PO BID 04/14/24 [History Confirmed 04/14/24] levothyroxine 100 mcg tablet 100 mcg PO QAM 04/14/24 [History Confirmed 04/14/24] lisinopril 30 mg tablet 15 mg PO QAM 04/14/24 [History Confirmed 04/14/24] melatonin 3 mg tablet 6 mg PO BEDTIME 04/14/24 [History Confirmed 04/14/24] mirtazapine 7.5 mg tablet 735 mg PO BEDTIME 04/14/24 [History Confirmed 04/14/24] Discharge Plan Discharge Patient Disposition: Xfer Short-Term Hosp Condition: Stable Prescriptions: No Action (DME) Monet Lam [employer] See Rx Instructions .Route .MEDSUPPLY Qty: 1 0RF Rx Instructions: As directed by HOME sertraline 25 mg tablet 25 mg PO DAILY Qty: 100 0RF meloxicam 7.5 mg tablet 7.5 mg PO .Twice daily Qty: 14 0RF cyanocobalamin (vitamin B-12) [Vitamin B-12] 1,000 mcg tablet 1,000 mcg PO DAILY Qty: 90 3RF Calcium 600 with Vitamin D3 600 mg(1,500mg) -400 unit Tablet,Chewable 1 tab PO DAILY atorvastatin 40 mg tablet 40 mg PO BEDTIME albuterol sulfate 90 mcg/actuation HFA aerosol inhaler 2 puff inhalation Q6H PRN (Reason: Shortness Of Breath Or Wheezing) budesonide-formoterol [Symbicort] 160-4.5 mcg/actuation HFA aerosol inhaler 2 puff INHALATION BID pantoprazole 40 mg Tablet,Delayed Release (Dr/Ec) 40 mg PO BID Qty: 60 0RF sennosides [senna] 8.6 mg Tablet 17.2 mg PO BID Qty: 60 0RF sucralfate 1 gram Tablet 1 g PO AC&BEDTIME Qty: 120 0RF trazodone 50 mg tablet 25 mg PO QPM PRN (Reason: insomnia) Qty: 4 0RF ondansetron 4 mg tablet,disintegrating 4 mg PO Q8H PRN (Reason: Nausea And Vomiting) ropinirole 1 mg tablet 0.5 mg PO BEDTIME oxycodone 10 mg tablet 10 - 20 mg PO Q4H PRN (Reason: Pain, Moderate) Rx Instructions: TAKE 1 TO 2 TABLETS BY MOUTH EVERY 4 TO 6 HOURS NEEDED FOR PAIN max 6 PER day melatonin 3 mg tablet 6 mg PO BEDTIME levothyroxine 100 mcg tablet 100 mcg PO QAM amlodipine 10 mg tablet 10 mg PO QAM lisinopril 30 mg tablet 15 mg PO QAM aripiprazole 5 mg tablet 2.5 mg PO QAM mirtazapine 7.5 mg tablet 735 mg PO BEDTIME ferrous gluconate 324 mg (38 mg iron) tablet 324 mg PO BID Discharge Orders: Transfer Out of Facility (Order); Ordered 04/16/24 Ordered By: Eileen Bright Discharge Diet: Cardiac Discharge Activity: Increase activity as tolerated Transfer Attestations Time Spent in Transfer Care: greater than 30 min Quality Metrics Clinical Quality Measures [ No reported AMI, CVA or VTE this stay] Coding Level of Care Code Acute Code for Chg Fwd Diagnoses Elevated troponin R79.89 Ventricular tachycardia (paroxysmal) I47.20 Syncope R55 Syncope type: unspecified Essential hypertension I10 Hypertension type: essential hypertension Atherosclerotic heart disease of [place] coronary artery with other forms of angina pectoris I25.118 Hypokalemia E87.6 Nausea & vomiting R11.2 Chronic pain G89.29
[2024-04-16] MEDS: hyDRALAzine 20 mg/mL INJ 1 mL 10 MG IVP (17:18)
--- NOTE | 2024-04-16 18:16 | CTR_ITS ---
PROCEDURE INFORMATION: Exam: CT Head Without Contrast Exam date and time: 04/16/2024 6:28 PM Age: 78 years old Clinical indication: Stroke-like symptoms; Speech disturbance; Additional info: Stroke rule out TECHNIQUE: Imaging protocol: Computed tomography of the head without contrast. Radiation optimization: All CT scans at this facility use at least one of these dose optimization techniques: automated exposure control; mA and/or kV adjustment per patient size (includes targeted exams where dose is matched to clinical indication); or iterative reconstruction. Other technique: STROKE PROTOCOL was implemented. COMPARISON: CT head wo con* [id number] 12/09/2023 7:04 PM RADIATION DOSE METRICS: Total DLP (mGy-cm): 1030.88 FINDINGS: Brain: Small retro cerebellar arachnoid cyst unchanged. No acute infarct. No hemorrhage. Stable involutional changes of the brain. No midline shift. Cerebral ventricles: Stable ventricular size. No ventriculomegaly. Paranasal sinuses: No significant inflammation. No fluid levels. Mastoid air cells: No significant inflammation. Bones: No acute fracture. Soft tissues: Unremarkable. CT/CT head wo con* [id number] IMPRESSION: No acute intracranial abnormality. ASSESSMENT: ASPECTS ([place] Stroke Program Early CT Score) is 10.
--- NOTE | 2024-04-16 18:52 | PC.NURSE ---
Patient c/o horrible HERCULES bout the worst heather had and general not feeling well stating something isn't right . slight slurring speech noted Dr. Bright ordered STAT head CT restarted zosyn, BP 180s to 190s after prn hydrazine 1x dose of home lisinopril received
[2024-04-16] MEDS: piperacillin-tazobactam 3.375 GM in sodium chloride 0.9% (plus) 50 ML IV (19:14)
[2024-04-16] MEDS: lisinopril 10 mg Tablet 15 MG PO (19:14)
[2024-04-16] MEDS: ondansetron 4 MG Tablet PO (19:17)
[2024-04-16] MEDS: acetaminophen 325 mg Tablet 650 MG PO (20:21)
[2024-04-16] MEDS: mirtazapine 15 mg Tablet 7.5 MG PO (21:29)
[2024-04-16] MEDS: atorvastatin 40 mg Tablet PO (21:29)
[2024-04-16] MEDS: ropinirole 1 mg Tablet 0.5 MG PO (21:29)
[2024-04-16] MEDS: trazodone 50 mg Tablet 25 MG PO (23:09)
[2024-04-17] VITALS (54 sets, daily range): BP systolic 112–186; BP diastolic 53–108; PULSE 40–86; RESP 13–22; TEMP 36.8–37.1; O2SAT 85–100
[2024-04-17] MEDS: oxyCODONE 5 mg IR Tab/Cap 10 MG PO ×4 (03:17→20:17)
[2024-04-17] MEDS: piperacillin-tazobactam 3.375 GM in sodium chloride 0.9% (plus) 50 ML IV ×3 (03:18→20:19)
[2024-04-17] MEDS: ARIPiprazole 10 mg Tablet 2.5 MG PO (05:39)
[2024-04-17] MEDS: levothyroxine 100 mcg Tablet PO (05:39)
[2024-04-17] MEDS: amlodipine 10 mg Tablet PO (05:40)
[2024-04-17 05:43] LABS: Basophils % 0.1 %; Eosinophils # 0.8 10^3/uL (0.0-0.8); Eosinophils % 10.8 %; Hematocrit 40.1 % (36-47); Lymphocytes # 1.6 10^3/uL (0.8-4.8); Lymphocytes % 21.4 %; Mean Corpuscular HGB Conc 30.4 g/dL (30-55); Mean Corpuscular Hemoglobin 26.5 pg (27-33); Mean Platelet Volume 10.8 fL (7.4-10.4); Monocytes # 0.6 10^3/uL (0.2-0.9); Monocytes % 7.9 %; Neutrophils # 4.44 10^3/uL (1.8-7.7); Neutrophils % 59.4 %; Nucleated Red Blood Cells % 0 %; Platelet Count 294 10^3/cmm (157-399); Red Blood Count 4.61 10^6/uL (3.85-5.65); Red Cell Distribution Width 17.8 % (12.1-15.1); White Blood Count 7.48 10^3/uL (3.29-11.43)
[2024-04-17 06:12] LABS: Alanine Aminotransferase < 5 U/L (0-33); Albumin Level 3.6 g/dL (3.5-5.2); Alkaline Phosphatase 73 U/L (35-105); Anion Gap 13.3 (5-19); Aspartate Amino Transferase 11 U/L (0-32); Blood Urea Nitrogen 18 mg/dL (8-23); Calcium 9.9 mg/dL (8.5-10.5); Carbon Dioxide 30 mmol/L (22-29); Chloride 101 mmol/L (98-107); Creatinine Clr Calc Pharmacy 32.0021; Globulin 2.2 g/dL (1.3-4.6); Glucose 109 mg/dL (65-115); Osmolality Calculated 294 mOsm/kg (285-295); Potassium 3.3 mmol/L (3.5-5.1); Sodium 141 mmol/L (136-145); Total Protein 5.8 g/dL (6.6-8.7)
[2024-04-17] MEDS: metoprolol tartrate 25 mg Tablet 12.5 MG PO ×2 (09:46→20:17)
[2024-04-17] MEDS: pantoprazole DR 40 mg Tablet PO ×2 (09:46→17:44)
[2024-04-17] MEDS: sertraline 50 mg Tablet 25 MG PO (09:46)
[2024-04-17] MEDS: lisinopril 10 mg Tablet 15 MG PO (10:46)
[2024-04-17] MEDS: potassium chloride ER 20 mEq Tablet 40 MEQ PO (10:46)
--- NOTE | 2024-04-17 10:57 | PC.OT ---
d/c PT AND OT PER DR ORDERS IN HEART TO HEART ROUNDS.
--- NOTE | 2024-04-17 17:20 | P.PN_ITS ---
Subjective 2 Subjective: Patient was planned to be transferred to [facility] yesterday, however this transfer was later deferred as patient developed headache last evening. She had stated this was the worst headache of her life therefore she underwent CT of the head to assess for any subarachnoid hemorrhage. Unfortunately she lost her bed at [facility] in the interim. Her blood pressure at the time was 1 90- 200 systolic. Her lisinopril had recently been placed on hold due to JASON. Her creatinine is currently improved from 1.7-1.1. Resumed lisinopril 15 mg p[address] daily today. CT head was negative for any hemorrhage. Her headache is resolved today. Medications: Reviewed: Yes Vitals/I&O/Wt Last Vital Signs Temp 98.2 F 04/17/24 00:00 Pulse 45 L 04/17/24 16:00 Resp 20 H 04/17/24 16:00 BP 140/101 04/17/24 16:00 Pulse Ox 94 04/17/24 16:00 O2 Del Method Nasal Cannula 04/17/24 07:44 O2 Flow Rate 2 04/17/24 07:44 04/17/24 04/17/24 04/17/24 06:59 14:59 22:59 Intake Total 150 / 810 470 / 470 Output Total 550 / 803 Balance -400 / 7 470 / 470 Weight last 48 hrs Weight 48.988 kg Weight 50.077 kg Physical Exam 2 Narrative: General: No acute distress, AO x3 HEENT: PERRLA, pupils bilaterally equal and reactive, pallors not present Chest: Normal vesicular breath sounds, no added sounds, equal good air entry bilaterally CVS: S1-S2 regular, no murmurs, no tachycardia, no gallops, no rubs Abdomen: Soft, nontender, no organomegaly, bowel sounds present Neuro: No focal deficits, no facial deformity, AO x3, power 5/5 in all limbs Data 04/17/24 05:28 04/17/24 05:28 A&P Assessment and plan (1) Elevated troponin: Elevated troponin concerning for possible NSTEMI Ventricular tachycardia may be related to underlying ischemia Continuous telemetry monitoring Complete echocardiogram Patient started on heparin drip Cardiology consulted, appreciate recommendations Patient going to [employer] (2) Ventricular tachycardia (paroxysmal): Nonsustained ventricular tachycardia Telemetry monitoring Monitor and correct electrolytes, magnesium level ordered Mag sulfate already ordered Amiodarone push ordered Cardiology following, appreciate recommendations (3) Syncope: Patient with syncopal episode while in CT scanner, may be related to underlying V. tach Continuous telemetry monitoring Echo Qualifiers: Syncope type: unspecified Qualified Code(s): R55 - Syncope and collapse (4) Hypertension: Hypertensive urgency with current blood pressure 226/76 mmHg Patient being started on drip, goal to decrease blood pressure by at least 25% initially Will admit to ICU after cardiac cath Monitor blood pressure, adjust medications as needed Qualifiers: Hypertension type: essential hypertension Qualified Code(s): I10 - Essential (primary) hypertension (5) Atherosclerotic heart disease of [place] coronary artery with other forms of angina pectoris: Patient reports history of coronary disease without prior stents or bypass Ischemic evaluation noted as above (6) Hypokalemia: Correct underlying hypokalemia, potassium goal greater than 4 Checking and supplementing magnesium Continuous telemetry monitoring (7) Nausea & vomiting: CT abdomen and pelvis negative for acute findings, there is concern for pyelonephritis but urinalysis not consistent Gastroenteritis remains within the differential Rotate IV PPI given nausea and vomiting Antiemetics as needed Supportive care (8) Chronic pain: Plan to continue home medications Plan DVT prophylaxis: Heparin April 14, 2024. Patient went to cardiac [employer] today. Not found to have any obstructive CAD. Episode of V. tach this morning associated with syncope. She is currently on metoprolol following which episode has not recurred. Denies any current chest pain. She has been titrated off nitroglycerin infusion. Intermittent bradycardia with heart rate dropping down to the 40s. Will monitor her closely in the ICU as will likely require titration of beta-blockers and optimize dosing for management of V. tach and bradycardia. Patient may need EP studies in case continues to have recurrent V. tach. April 15, 2024 No V. tach episodes today. Denies any current chest pain. Continues to be on metoprolol, appears to be tolerating it well currently. Asymptomatic bradycardia intermittently. D/c Zosyn as no obvious source of infection currently. UA unremarkable. no clinical corelate for pyelonephritis as suspected on CT- there was mild bilateral renal pelviectasis without caliectasis perirenal fat stranding/edema. She has a large hiatal hernia containing majority of the stomach and portion of . the pancreas as well as splenic artery. No noted consolidation. Blood cx negative to date. Cardiology to discuss transfer for EP studies at higher center, will await recommendations April 17, 2023 Events from last evening as noted above. CT head negative for any acute subarachnoid hemorrhage or stroke. Patient has no focal neurological deficits on exam. Reports of past history of migraine in her 40s. Has not had a recurrence since many years. Her headache is resolved today with better control of her blood pressure. Lisinopril 15 mg daily has been resumed as creatinine is now improved at 1.1. No recurrent episodes of V. tach. Awaiting transfer to [facility] for electrophysiology and VT ablation. k 3.3. Repleted orally. Attestations 2 Medical Necessity Statement*: awaiting transfer for EP Coding Level of Care Code Acute Code for [facility]g Fwd Diagnoses Elevated troponin R79.89 Ventricular tachycardia (paroxysmal) I47.20 Syncope R55 Syncope type: unspecified Essential hypertension I10 Hypertension type: essential hypertension Atherosclerotic heart disease of [place] coronary artery with other forms of angina pectoris I25.118 Hypokalemia E87.6 Nausea & vomiting R11.2 Chronic pain G89.29
--- NOTE | 2024-04-17 17:29 | P.PN_ITS ---
<Statement entered by Estela Corado MD - 04/26/24 17:50> Patient was evaluated and cared for in conjunction with an advanced practice practitioner. I personally not examined the patient but reviewed the chart and all pertinent data including imaging, telemetry, and laboratory results. I discussed the patient in detail with the advanced practice practitioner. Please see their note for complete H&P testing result and agreed upon plan of care for the patient. Subjective 2 Subjective: Patient was seen this morning. She has done well overnight, no VT overnight or today. Transfer was canceled yesterday evening due to headache and concern of possible ICH. CT of the head did not show any acute abnormalities. The transfer center at [facility] has been notified that she is stable for transfer again, awaiting a bed. Creatinine this morning 1.1, lisinopril restarted as blood pressure has been elevated. Vitals/I&O/Wt Last Vital Signs Temp 98.2 F 04/17/24 00:00 Pulse 45 L 04/17/24 16:00 Resp 20 H 04/17/24 16:00 BP 140/101 04/17/24 16:00 Pulse Ox 94 04/17/24 16:00 O2 Del Method Nasal Cannula 04/17/24 07:44 O2 Flow Rate 2 04/17/24 07:44 04/17/24 04/17/24 04/17/24 06:59 14:59 22:59 Intake Total 150 / 810 470 / 470 Output Total 550 / 803 Balance -400 / 7 470 / 470 Weight last 48 hrs Weight 108 lb Weight 110 lb 6.4 oz Physical Exam 2 Const: COMMON NORMALS: no acute distress and patient oriented x3 GENERAL APPEARANCE: cooperative and comfortable ORIENTATION/CONSCIOUSNESS: Yes awake, Yes oriented to person, Yes oriented to place and Yes oriented to time Chest: COMMONS NORMALS: normal inspection of the chest and normal palpation of entire chest wall CHEST: Yes Symmetrical chest wall rise Resp: COMMON NORMALS: normal respiratory effort, No retractions, No use of accessory muscles and clear to auscultation bilaterally EFFORT & INSPECTION: Yes symmetric chest movement AUSCULTATION: clear to auscultation bilaterally Cardio: COMMON NORMALS: regular rhythm, S1 normal heart sound present, S2 normal heart sound present, No gallops present (Cardio), No clicks present (Cardio), No murmurs present (Cardio) and No rub (Cardio) RATE: bradycardic RHYTHM: regular rhythm HEART SOUNDS: S1 normal heart sound present and S2 normal heart sound present PERIPHERAL PULSES: radial pulses present Extremity: COMMON NORMALS: no pedal edema Neuro: COMMON NORMALS: patient oriented x3 and moves all extremities S ENSORIUM/ORIENTATION: Yes oriented to person, Yes oriented to place and Yes oriented to time Data 04/17/24 05:28 04/17/24 05:28 A&P Assessment and plan (1) Ventricular tachycardia (paroxysmal): Transfer to [facility] electrophysiology has been reinstituted. Continue metoprolol to tartrate 12.5 mg twice a day, sinus bradycardia is tolerated well at this point. Continue amlodipine 10 mg daily, lisinopril 15 mg daily. (2) Sinus bradycardia: (3) Hypertension: Qualifiers: Hypertension type: essential hypertension Qualified Code(s): I10 - Essential (primary) hypertension Attestations 2 Medical Necessity Statement*: Transfer to [facility] electrophysiology is planned, awaiting bed Coding Level of Care Code Acute Code for [facility] Diagnoses Ventricular tachycardia (paroxysmal) I47.20 Sinus bradycardia R00.1 Essential hypertension I10 Hypertension type: essential hypertension
[2024-04-17] MEDS: atorvastatin 40 mg Tablet PO (20:18)
[2024-04-17] MEDS: ropinirole 1 mg Tablet 0.5 MG PO (20:18)
[2024-04-17] MEDS: mirtazapine 15 mg Tablet 7.5 MG PO (20:18)
[2024-04-17] MEDS: budesonide 0.5 mg/2 mL Neb INHALATION (21:06)
[2024-04-18] VITALS (55 sets, daily range): BP systolic 121–201; BP diastolic 55–118; PULSE 44–96; RESP 13–26; TEMP 36.7–37; O2SAT 87–100
[2024-04-18] MEDS: oxyCODONE 5 mg IR Tab/Cap 10 MG PO ×5 (00:58→20:10)
[2024-04-18] MEDS: hyDRALAzine 20 mg/mL INJ 1 mL 10 MG IVP (01:19)
[2024-04-18] MEDS: piperacillin-tazobactam 3.375 GM in sodium chloride 0.9% (plus) 50 ML IV ×3 (04:01→19:43)
[2024-04-18 05:47] LABS: Alanine Aminotransferase < 5 U/L (0-33); Albumin Level 3.3 g/dL (3.5-5.2); Alkaline Phosphatase 67 U/L (35-105); Anion Gap 13.4 (5-19); Aspartate Amino Transferase 11 U/L (0-32); Blood Urea Nitrogen 19 mg/dL (8-23); Calcium 9.6 mg/dL (8.5-10.5); Carbon Dioxide 27 mmol/L (22-29); Chloride 104 mmol/L (98-107); Creatinine Clr Calc Pharmacy 29.0653; Globulin 2.1 g/dL (1.3-4.6); Glucose 104 mg/dL (65-115); Osmolality Calculated 295 mOsm/kg (285-295); Potassium 3.4 mmol/L (3.5-5.1); Sodium 141 mmol/L (136-145); Total Bilirubin 0.8 mg/dL (0.15-1.2); Total Protein 5.4 g/dL (6.6-8.7)
[2024-04-18] MEDS: ARIPiprazole 10 mg Tablet 2.5 MG PO (05:58)
[2024-04-18] MEDS: levothyroxine 100 mcg Tablet PO (06:00)
[2024-04-18] MEDS: amlodipine 10 mg Tablet PO (06:01)
[2024-04-18] MEDS: budesonide 0.5 mg/2 mL Neb INHALATION ×2 (08:21→19:55)
[2024-04-18] MEDS: lisinopril 10 mg Tablet 15 MG PO (08:24)
[2024-04-18] MEDS: pantoprazole DR 40 mg Tablet PO (08:24)
[2024-04-18] MEDS: metoprolol tartrate 25 mg Tablet 12.5 MG PO ×2 (08:24→23:30)
[2024-04-18] MEDS: ipratropium-albuterol 3 mL Neb INHALATION (08:24)
[2024-04-18] MEDS: sertraline 50 mg Tablet 25 MG PO (08:24)
--- NOTE | 2024-04-18 11:48 | PC.SOCIAL ---
IMM Update pg 2 of IMM updated and reviewed w/ patient. Copy provided. Copy dated, initialed and placed in chart.
[2024-04-18] MEDS: hyDRALAzine 25 mg Tablet PO ×2 (15:35→20:13)
--- NOTE | 2024-04-18 16:55 | P.PN_ITS ---
<Statement entered by Baltazar Osborne M.D - 04/18/24 20:50> Patient was evaluated and cared for in conjunction with an advanced practice practitioner. I personally examined the patient and reviewed the chart and all pertinent data including imaging, telemetry, and laboratory results. I discussed the patient in detail with the advanced practice practitioner. Please see their note for complete progress note, results and agreed upon plan of care for the patient. Patient feeling better. No arrhythmias seen on tele GENERAL: Patient is alert and oriented HEART: Regular S1 and S2 LUNGS: Clear to auscultation bilaterally EXTREMITIES: Lower extremities with no edema Subjective 2 Subjective: Patient seen this morning. She is sitting up on the side of the bed eating breakfast. Feeling well with no chest pain or shortness of breath. No recurrence of VT overnight. Still awaiting a bed at [facility] for electrophysiology services. Vitals/I&O/Wt Last Vital Signs Temp 98.0 F 04/18/24 04:00 Pulse 48 L 04/18/24 14:30 Resp 19 H 04/18/24 15:35 BP 141/78 04/18/24 14:30 Pulse Ox 94 04/18/24 15:35 O2 Del Method Nasal Cannula 04/18/24 08:00 O2 Flow Rate 2 04/18/24 08:00 04/18/24 04/18/24 04/18/24 06:59 14:59 22:59 Intake Total 150 / 670 500 / 550 50 / 550 Balance 150 / 450 500 / 550 50 / 550 Weight last 48 hrs Weight 109 lb 10.616 oz Weight 108 lb Physical Exam 2 Const: COMMON NORMALS: no acute distress and patient oriented x3 GENERAL APPEARANCE: cooperative and comfortable ORIENTATION/CONSCIOUSNESS: Yes awake, Yes oriented to person, Yes oriented to place and Yes oriented to time Chest: COMMONS NORMALS: normal inspection of the chest and normal palpation of entire chest wall CHEST: Yes Symmetrical chest wall rise Resp: COMMON NORMALS: normal respiratory effort, No retractions, No use of accessory muscles and clear to auscultation bilaterally EFFORT & INSPECTION: Yes symmetric chest movement AUSCULTATION: clear to auscultation bilaterally Cardio: COMMON NORMALS: regular rhythm, S1 normal heart sound present, S2 normal heart sound present, No gallops present (Cardio), No clicks present (Cardio), No murmurs present (Cardio) and No rub (Cardio) RATE: bradycardic RHYTHM: regular rhythm HEART SOUNDS: S1 normal heart sound present and S2 normal heart sound present PERIPHERAL PULSES: radial pulses present Extremity: COMMON NORMALS: no pedal edema Neuro: COMMON NORMALS: patient oriented x3 and moves all extremities S ENSORIUM/ORIENTATION: Yes oriented to person, Yes oriented to place and Yes oriented to time Data 04/17/24 05:28 04/18/24 05:01 A&P Assessment and plan (1) Ventricular tachycardia (paroxysmal): (2) Sinus bradycardia: (3) Hypertension: Qualifiers: Hypertension type: essential hypertension Qualified Code(s): I10 - Essential (primary) hypertension Plan Will continue await transfer to [facility] given the extended delay in outpatient EP services, patient will be better served by direct transfer. Continue metoprolol tartrate 12.5 mg twice a day, she is not symptomatic with heart rate in the 40s however she is not physically active currently. Continue amlodipine 10 mg daily, lisinopril 50 mg daily blood pressure better controlled today. Attestations 2 Medical Necessity Statement*: Awaiting transfer to [facility] electrophysiology for VT ablation Coding Level of Care Code Acute Code for [facility] Fwd Diagnoses Ventricular tachycardia (paroxysmal) I47.20 Sinus bradycardia R00.1 Essential hypertension I10 Hypertension type: essential hypertension
--- NOTE | 2024-04-18 17:51 | PM.TDS ---
Transfer Summary Providers Date of Admission: 04/14/24 09:34 Date of Discharge/Transfer: 04/18/24 Attending Provider at Admission: Estela Corado MD Attending Provider at Transfer: Eileen Bright MD Primary Care Provider: Lynda Lopez MD Transfer Plans: Anticipated date of transfer: 04/18/24. Diagnoses at Discharge Discharge Diagnosis (1) Ventricular tachycardia (paroxysmal): Status: Acute (2) Sinus bradycardia: Status: Acute (3) Hypertension: Status: Chronic Qualifiers: Hypertension type: essential hypertension Qualified Code(s): I10 - Essential (primary) hypertension Reason for Visit Reason for Visit n/v; abd pain Hospital Course Hospital Course Ivan Peguero is a 78 year old female with a past medical history significant for large hiatal hernia, chronic pain, osteoarthritis, hypertension, hypothyroidism, restless leg syndrome, fibromyalgia, hyperlipidemia, coronary artery disease who presented to the ER on 04/13/2024 with c/o generalized weakness x 2 days, nausea with multiple episodes of emesis followed by dry heaves. She had generalized abdominal discomfort. In the ER she was noted to have multiple PVCs including bigeminy, later she had witnessed polymorphic VT on the monitor, she also started complaining of chest pain radiating towards the back. Patient was sent for CT abdomen thorax to rule out aortic dissection while laying on the CT scan patient passed out with seizure-like activity unfortunately she was not on monitor therefore cannot say for sure whether she had VT on not, later in the ER she constantly remained in bigeminal rhythm with multiple PVCs with complaint of chest pain. Cardiology service was consulted , Due to concern for NSTEMI patient was taken to the [facility] where she was found to have no occlusive disease. Please see cardiology note for details with regards to findings in [facility]. Patient had another episode of nonsustained V. tach on the morning of April 14, 2023. She was started on treatment with metoprolol 12.5 mg p.o. twice daily. Dose of metoprolol has been unable to be increased any further due to intermittent bradycardia with heart rate dropping in the 40s to 50s. [facility]. Cardiology service contacted EP at [facility] and patient has been accepted. She is stable for transfer today. Patient has been on treatment with piperacillin/tazobactam since admission due to concern for possible gastroenteritis. Overall infectious workup has remained negative so far.. UA unremarkable. no clinical corelate for pyelonephritis as suspected on CT- there was mild bilateral renal pelviectasis without caliectasis perirenal fat stranding/edema.Plan to d/c abx after a presumptive 5 day course. She has a large hiatal hernia containing majority of the stomach and portion of the pancreas as well as splenic artery. No noted consolidation. Blood cx negative to date. She received CT head on 04/16 due to c/o headache and elevated BP- CT head negative for any SAH. Physical Exam Narrative: General: No acute distress, AO x3 HEENT: PERRLA, pupils bilaterally equal and reactive, pallors not present Chest: Normal vesicular breath sounds, no added sounds, equal good air entry bilaterally CVS: S1-S2 regular, no murmurs, no tachycardia, no gallops, no rubs Abdomen: Soft, nontender, no organomegaly, bowel sounds present Neuro: No focal deficits, no facial deformity, AO x3, power 5/5 in all limbs TS Data Studies Completed and Pending Pending at discharge Category Date Time Status Blood Culture Stat Lab 04/14/24 09:16 Results MRSA PCR OZH (swab) Routine Lab 04/14/24 06:10 Uncollected US echo complete [CV. echo complete* [id number]] Stat Ultrasound 04/13/24 21:55 Taken Completed Studies During Hospitalization Category Date Time Status CT head wo con* [id number] Stat Cat Scan 04/16/24 18:16 Completed CTA chest abdomen pelvis [CT ang ches abdpel [id number]/ Cat Scan 04/13/24 20:52 Completed [id number]] Stat EXECUTIVE VP request for service Routine Exams 04/13/24 22:51 Completed CXRP [XR chest 1V portable [id number]] Stat Exams 04/13/24 20:19 Completed Laboratory Last Values WBC 7.48 10^3/uL (3.29-11.43) 04/17/24 05:28 RBC 4.61 10^6/uL (3.85-5.65) 04/17/24 05:28 Hgb 12.20 g/dL (11.27-16.99) 04/17/24 05:28 Hct 40.1 % (36-47) 04/17/24 05:28 MCV 87.0 fl (85-98) 04/17/24 05:28 MCH 26.5 pg (27-33) L 04/17/24 05:28 MCHC 30.4 g/dL (30-55) 04/17/24 05:28 RDW 17.8 % (12.1-15.1) H 04/17/24 05:28 Plt Count 294 10^3/cmm (157-399) 04/17/24 05:28 MPV 10.8 fL (7.4-10.4) H 04/17/24 05:28 Neut % (Auto) 59.4 % 04/17/24 05:28 Lymph % (Auto) 21.4 % 04/17/24 05:28 Parmer % (Auto) 7.9 % 04/17/24 05:28 Eos % (Auto) 10.8 % 04/17/24 05:28 Baso % (Auto) 0.1 % 04/17/24 05:28 Neut # (Auto) 4.44 10^3/uL (1.8-7.7) 04/17/24 05:28 Lymph # (Auto) 1.6 10^3/uL (0.8-4.8) 04/17/24 05:28 [place]mer # (Auto) 0.6 10^3/uL (0.2-0.9) 04/17/24 05:28 Eos # (Auto) 0.8 10^3/uL (0.0-0.8) 04/17/24 05:28 Baso # (Auto) 0.0 10^3/uL (0.0-0.1) 04/17/24 05:28 Nucleated RBC % (auto) 0 % 04/17/24 05:28 Nucleated RBCs # 0.0 /100WBC 04/17/24 05:28 PT 14.20 SECONDS (12.1-14.9) 04/13/24 23:42 INR 1.03 (0.8-1.2) 04/13/24 23:42 APTT 37.0 SECONDS (23.9-36.7) H 04/13/24 23:42 Sodium 141 mmol/L (136-145) 04/18/24 05:01 Potassium 3.4 mmol/L (3.5-5.1) L 04/18/24 05:01 Chloride 104 mmol/L (98-107) 04/18/24 05:01 Carbon Dioxide 27 mmol/L (22-29) 04/18/24 05:01 Anion Gap 13.4 (5-19) 04/18/24 05:01 BUN 19 mg/dL (8-23) 04/18/24 05:01 Creatinine 1.2 mg/dL (0.5-0.9) H 04/18/24 05:01 GFR Calculation Not Reportable 04/18/24 05:01 Glucose 104 mg/dL (65-115) 04/18/24 05:01 POC Glucose 94 mg/dL (70-110) 04/14/24 05:46 Calculated Osmolality 295 mOsm/kg (285-295) 04/18/24 05:01 Calcium 9.6 mg/dL (8.5-10.5) 04/18/24 05:01 Phosphorus 3.1 mg/dL (2.5-4.5) 04/14/24 05:25 Magnesium 2.0 mg/dL (1.7-2.3) 04/16/24 03:29 Total Bilirubin 0.8 mg/dL (0.15-1.2) 04/18/24 05:01 AST 11 U/L (0-32) 04/18/24 05:01 ALT < 5 U/L (0-33) 04/18/24 05:01 Alkaline Phosphatase 67 U/L (35-105) 04/18/24 05:01 Troponin T Baseline 190 ng/L (0-10) H* 04/13/24 19:17 Troponin T 120 Minute 131.6 ng/L (0-10) H 04/13/24 22:10 Delta Troponin T -58.4 ABS# (0-10) L 04/13/24 22:10 Troponin T Hi Sens 6Hr 138.9 ng/L (0-10) H 04/14/24 02:10 Troponin T Hi Sens 6Hr Delta -51.1 ng/L (0-12) L 04/14/24 02:10 NT-Pro-B Natriuret Pep 1706 pg/mL (0-450) H 04/13/24 19:17 Total Protein 5.4 g/dL (6.6-8.7) L 04/18/24 05:01 Albumin 3.3 g/dL (3.5-5.2) L 04/18/24 05:01 Globulin 2.1 g/dL (1.3-4.6) 04/18/24 05:01 Lipase 21 U/L (13-60) 04/13/24 19:17 Procalcitonin 63.56 ng/mL (0-0.5) H 04/14/24 05:25 Urine Color Yellow (Yellow) 04/13/24 18:50 Urine Appearance Clear (CLEAR) 04/13/24 18:50 Urine pH 6.5 (5-7) 04/13/24 18:50 Ur Specific [place] 1.012 (1.005-1.030) 04/13/24 18:50 Urine Protein 1+ (Negative) A 04/13/24 18:50 Urine Glucose (UA) Negative (Normal) 04/13/24 18:50 Urine Ketones Negative (Negative) 04/13/24 18:50 Urine Blood Negative (Negative) 04/13/24 18:50 Urine Nitrate Negative (Negative) 04/13/24 18:50 Urine Bilirubin Negative (Negative) 04/13/24 18:50 Urine Urobilinogen 0.2 mg/dL (Negative) 04/13/24 18:50 Ur Leukocyte Esterase Negative (Negative) 04/13/24 18:50 Urine RBC 0-2 /hpf (0-2) 04/13/24 18:50 Urine WBC 0-5 /hpf (0-5) 04/13/24 18:50 Ur Squamous Epith Cells 0-5 /hpf (0-5) 04/13/24 18:50 Urine Bacteria None seen /hpf (NONE) 04/13/24 18:50 Hyaline Casts 0-4 /lpf H 04/13/24 18:50 Radiology Impressions Chest X-Ray 04/13/24 20:19 IMPRESSION: No acute findings. Chest/Abdomen/Pelvis CTA 04/13/24 20:52 IMPRESSION: 1. No aortic dissection or evidence of intramural hematoma. 2. Mild bilateral renal pelviectasis without caliectasis and developed moderate [id number] perirenal fat stranding/edema. Correlate for pyelonephritis. 3. Large hiatal hernia containing majority of the stomach and portion of the pancreas as well as splenic artery. 4. Additional chronic and incidental findings as above. Head CT 04/16/24 18:16 IMPRESSION: No acute intracranial abnormality. ASSESSMENT: ASPECTS ([place] Stroke Program Early CT Score) is 10. ADDENDUM: 04/16/241846 Findings were discussed with EILEEN Hung at 04/16/2024 6:45 PM [employer]. Recent Clincial Data Last Vital Signs Temp 98.0 F 04/18/24 04:00 Pulse 47 L 04/18/24 16:30 Resp 17 04/18/24 16:30 BP 155/67 04/18/24 16:00 Pulse Ox 92 04/18/24 16:30 O2 Del Method Nasal Cannula 04/18/24 08:00 O2 Flow Rate 2 04/18/24 08:00 Vital Signs Pulse Resp BP Pulse Ox O2 Del Method O2 Flow Rate 04/18/24 16:30 47 L 17 92 04/18/24 16:00 48 L 19 H 155/67 93 04/18/24 15:35 19 H 94 04/18/24 15:30 61 19 H 155/67 92 04/18/24 15:00 50 L 18 155/67 91 04/18/24 14:30 48 L 18 141/78 92 04/18/24 14:00 65 19 H 141/78 94 04/18/24 13:30 52 L 14 168/70 97 04/18/24 13:00 53 L 18 168/70 97 04/18/24 12:30 83 22 H 162/87 95 04/18/24 12:00 66 13 162/87 98 04/18/24 11:30 70 24 H 146/64 96 04/18/24 11:00 51 L 20 H 97 04/18/24 10:39 14 95 04/18/24 10:30 48 L 19 H 95 04/18/24 10:00 168/100 04/18/24 09:30 77 20 H 168/100 99 04/18/24 09:00 62 18 133/55 100 04/18/24 08:30 77 16 133/55 98 04/18/24 08:28 86 04/18/24 08:00 49 L 14 166/71 97 04/18/24 08:00 80 16 94 Nasal Cannula 2 04/18/24 07:30 44 L 13 166/71 96 04/18/24 07:00 62 15 158/60 96 04/18/24 06:29 45 L 04/18/24 06:06 19 H 96 04/18/24 06:00 47 L 17 170/85 95 Intake & Output/Weight 04/16/24 04/17/24 04/18/24 04/19/24 06:59 06:59 06:59 06:59 Intake Total 1400 / 1400 810 / 810 670 / 670 550 / 550 Output Total 803 / 803 220 / 220 Balance 1400 / 1400 7 / 7 450 / 450 550 / 550 Weight 50.077 kg 48.988 kg 49.743 kg Vitals Last Vital Signs Temp 98.0 F 04/18/24 04:00 Pulse 47 L 04/18/24 16:30 Resp 17 04/18/24 16:30 BP 155/67 04/18/24 16:00 Pulse Ox 92 04/18/24 16:30 O2 Del Method Nasal Cannula 04/18/24 08:00 O2 Flow Rate 2 04/18/24 08:00 TS Medications Medications Acetaminophen (Acetaminophen 325 Mg Tablet) 650 mg PO Q6H PRN PRN Reason: Mild/Mod Pain Or Temp >/= 101 Last Admin: 04/16/24 20:21 Dose: 650 mg Al Hydrox/Mg Hydrox/Simethicone (Iawb-Ghl-Mkzjafvrr-Delmer 30 Ml Udc) 30 ml PO Q15M PRN PRN Reason: INDIGESTION Albuterol/Ipratropium (Ipratropium-Albuterol 3 Ml Neb) 3 ml INHALATION Q6H PRN PRN Reason: SHORTNESS OF BREATH Last Admin: 04/18/24 08:24 Dose: 3 ml Amlodipine Besylate (Amlodipine 10 Mg Tablet) 10 mg PO QAM [facility] Last Admin: 04/18/24 06:01 Dose: 10 mg Aripiprazole (Aripiprazole 10 Mg Tablet) 2.5 mg PO QAM [facility] Last Admin: 04/18/24 05:58 Dose: 2.5 mg Atorvastatin Calcium (Atorvastatin 40 Mg Tablet) 40 mg PO BEDTIME [facility] Last Admin: 04/17/24 20:18 Dose: 40 mg Atropine Sulfate (Atropine 1 Mg/Ml Sdv 1 Ml) 0.5 mg IVP PRN PRN PRN Reason: Symptomatic bradycardia Budesonide (Budesonide 0.5 Mg/2 Ml Neb) 0.5 mg INHALATION BID.RESPIRATORY [facility] Last Admin: 04/18/24 08:21 Dose: 0.5 mg Hydralazine HCl (Hydralazine 20 Mg/Ml Inj 1 Ml) 10 mg IVP Q4H PRN PRN Reason: SBP > 160 Last Admin: 04/18/24 01:19 Dose: 10 mg Hydralazine HCl (Hydralazine 25 Mg Tablet) 25 mg PO TID [facility] Last Admin: 04/18/24 15:35 Dose: 25 mg Piperacillin Sod/Tazobactam (Sod 3.375 gm/ Sodium Chloride) 50 mls @ 12.5 mls/hr IV Q8H [facility]; Protocol Last Infusion: 04/18/24 15:17 Dose: Infused Levothyroxine Sodium (Levothyroxine 100 Mcg Tablet) 100 mcg PO QAM [facility] Last Admin: 04/18/24 06:00 Dose: 100 mcg Lisinopril (Lisinopril 10 Mg Tablet) 15 mg PO DAILY [facility] Last Admin: 04/18/24 08:24 Dose: 15 mg Magnesium Hydroxide (Magnesium Hydroxide 30 Ml Udc) 30 ml PO DAILY PRN PRN Reason: CONSTIPATION Metoprolol Tartrate (Metoprolol Tartrate 25 Mg Tablet) 12.5 mg PO BID@0900,2100 [facility] Last Admin: 04/18/24 08:24 Dose: 12.5 mg Mirtazapine (Mirtazapine 15 Mg Tablet) 7.5 mg PO BEDTIME [facility] Last Admin: 04/17/24 20:18 Dose: 7.5 mg Naloxone HCl (Naloxone 0.4 Mg/Ml Sdv) 0.1 mg IVP Q2M PRN PRN Reason: RESPIRATORY RATE < 8/MIN Nitroglycerin (Nitroglycerin 0.4 Mg Sublingual Tablet) 0.4 mg SUBLINGUAL Q5M PRN PRN Reason: CHEST PAIN Ondansetron HCl (Ondansetron 4 Mg Tablet) 4 mg PO Q8H PRN PRN Reason: NAUSEA Last Admin: 04/16/24 19:17 Dose: 4 mg Ondansetron HCl (Ondansetron 2 Mg/Ml Sdv 2 Ml) 4 mg IVP Q12H PRN PRN Reason: NAUSEA AND VOMITING Oxycodone HCl (Oxycodone 5 Mg Ir Tab/Cap) 10 mg PO Q4H PRN PRN Reason: SEVERE PAIN Last Admin: 04/18/24 15:35 Dose: 10 mg Pantoprazole Sodium (Pantoprazole Dr 40 Mg Tablet) 40 mg PO BID [facility] Last Admin: 04/18/24 17:01 Dose: Not Given Ropinirole HCl (Ropinirole 1 Mg Tablet) 0.5 mg PO BEDTIME [facility] Last Admin: 04/17/24 20:18 Dose: 0.5 mg Sertraline HCl (Sertraline 50 Mg Tablet) 25 mg PO DAILY [facility] Last Admin: 04/18/24 08:24 Dose: 25 mg Discontinued Medications Acetaminophen (Acetaminophen 325 Mg Tablet) 650 mg PO Q6H PRN PRN Reason: MILD PAIN Amiodarone HCl (Amiodarone 50 Mg/Ml Sdv 3 Ml) 150 mg IVP ONCE ONE Stop: 04/13/24 21:25 Last Admin: 04/13/24 21:53 Dose: 150 mg Amlodipine Besylate (Amlodipine 5 Mg Tablet) 5 mg PO ONCE ONE Stop: 04/14/24 20:01 Last Admin: 04/14/24 20:05 Dose: 5 mg Aspirin (Aspirin 81 Mg Chew Tablet) 324 mg PO NOW ONE Stop: 04/13/24 21:21 Last Admin: 04/13/24 21:26 Dose: 324 mg Fentanyl (Fentanyl 50 Mcg/Ml Inj 2ml) Confirm Administered Dose 100 mcg .ROUTE .STK-MED ONE Stop: 04/13/24 22:53 Fentanyl (Fentanyl 50 Mcg/Ml Inj 2ml) 50 mcg IVP PRN PRN PRN Reason: Prior to sheath removal Heparin Sodium (Porcine) (Heparin 5,000 Unit/Ml Inj 1 Ml) 4,000 unit IVP ONCE ONE Stop: 04/13/24 22:29 Last Admin: 04/13/24 22:52 Dose: 4,000 unit Heparin Sodium (Porcine) (Heparin 5,000 Unit/Ml Inj 1 Ml) Confirm Administered Dose 10,000 unit .ROUTE .STK-MED ONE Stop: 04/13/24 22:53 Sodium Chloride (Sodium Chloride 0.9%) 1,000 mls @ 999 mls/hr IV .Q1H1M ONE Stop: 04/13/24 20:02 Last Infusion: 04/13/24 21:00 Dose: Infused Nicardipine/Sodium Chloride (Cardene) 20 mg in 200 mls @ 0 mls/hr IV .Q0M [facility]; Protocol Nitroglycerin/Dextrose (Nitroglycerin Drip) 50 mg in 250 mls @ 0 mls/hr IV .Q0M [facility]; Protocol Last Titration: 04/14/24 13:15 Dose: 0 mcg/min, 0 mls/hr Lidocaine HCl 5 ml/ Potassium (Chloride) 105 mls @ 52.5 mls/hr IV ONCE ONE Stop: 04/14/24 00:14 Last Infusion: 04/14/24 00:28 Dose: Infused Lidocaine HCl 5 ml/ Potassium (Chloride) 105 mls @ 52.5 mls/hr IV ONCE ONE Stop: 04/14/24 00:44 Last Infusion: 04/14/24 02:40 Dose: Infused Magnesium Sulfate (Magnesium Sulfate Premix) 2 gm in 50 mls @ 50 mls/hr IV ONCE ONE Stop: 04/13/24 23:27 Last Infusion: 04/14/24 00:29 Dose: Infused Lidocaine HCl (Xylocaine) Confirm Administered Dose 20 mls @ as directed .ROUTE .STK-MED ONE Stop: 04/13/24 22:53 Sodium Chloride (Sodium Chloride 0.9%) Confirm Administered Dose 1,000 mls @ as directed .ROUTE .STK-MED ONE Stop: 04/13/24 22:53 Magnesium Sulfate (Magnesium Sulfate Premix) 2 gm in 50 mls @ 50 mls/hr IV ONCE ONE Stop: 04/14/24 07:06 Last Admin: 04/14/24 06:13 Dose: 50 mls/hr Piperacillin Sod/Tazobactam (Sod 3.375 gm/ Sodium Chloride) 50 mls @ 12.5 mls/hr IV Q8H [facility]; Protocol Last Infusion: 04/15/24 20:52 Dose: Infused Magnesium Sulfate/Dextrose (Magnesium Sulfate Premix) 1 gm in 100 mls @ 200 mls/hr IV ONCE ONE Stop: 04/15/24 18:20 Last Admin: 04/15/24 20:51 Dose: Not Given Iohexol (Iohexol 350 Mg/Ml 500 Ml Btl (Per Ml)) 0 ml IV ONCE ONE Stop: 04/13/24 21:05 Last Admin: 04/13/24 21:05 Dose: 100 ml Lisinopril (Lisinopril 10 Mg Tablet) 15 mg PO QAM [facility] Last Admin: 04/15/24 05:53 Dose: 15 mg Lisinopril (Lisinopril 10 Mg Tablet) 15 mg PO ONCE ONE Stop: 04/16/24 18:49 Last Admin: 04/16/24 19:14 Dose: 15 mg Metoprolol Succinate (Metoprolol Succinate Er (24 Hr) 25 Mg Tablet) 25 mg PO DAILY [facility] Metoprolol Succinate (Metoprolol Succinate Er (24 Hr) 25 Mg Tablet) 25 mg PO DAILY [facility] Last Admin: 04/14/24 17:37 Dose: Not Given Metoprolol Tartrate (Metoprolol Tartrate 25 Mg Tablet) 12.5 mg PO ONCE ONE Stop: 04/14/24 05:53 Last Admin: 04/14/24 06:19 Dose: Not Given Metoprolol Tartrate (Metoprolol Tartrate 25 Mg Tablet) 12.5 mg PO DAILY [facility] Last Admin: 04/14/24 10:40 Dose: 12.5 mg Metoprolol Tartrate (Metoprolol Tartrate 1 Mg/1 Ml Sdv 5 Ml) 5 mg IVP ONCE ONE Stop: 04/14/24 06:07 Last Admin: 04/14/24 06:13 Dose: 5 mg Metoprolol Tartrate (Metoprolol Tartrate 1 Mg/1 Ml Sdv 5 Ml) Confirm Administered Dose 5 mg .ROUTE .STK-MED ONE Stop: 04/14/24 06:07 Last Admin: 04/14/24 06:20 Dose: Not Given Midazolam HCl (Midazolam 1 Mg/Ml Inj 2 Ml) Confirm Administered Dose 2 mg .ROUTE .STK-MED ONE Stop: 04/13/24 22:53 Morphine Sulfate (Morphine 4 Mg/Ml Sdv 1 Ml) 4 mg IVP ONCE ONE Stop: 04/13/24 19:03 Last Admin: 04/13/24 19:12 Dose: 4 mg Morphine Sulfate (Morphine 4 Mg/Ml Sdv 1 Ml) 4 mg IVP Q4H PRN PRN Reason: SEVERE PAIN Last Admin: 04/14/24 01:22 Dose: 4 mg Morphine Sulfate (Morphine 4 Mg/Ml Sdv 1 Ml) 2 mg IVP Q8H PRN PRN Reason: SEVERE PAIN Nitroglycerin (Nitroglycerin 0.4 Mg Sublingual Tablet) 0.4 mg SUBLINGUAL ONCE ONE Stop: 04/13/24 21:21 Last Admin: 04/13/24 21:26 Dose: 0.4 mg Nitroglycerin (Nitroglycerin 5 Mg/Ml Sdv 10 Ml) Confirm Administered Dose 50 mg .ROUTE .STK-MED ONE Stop: 04/13/24 22:52 Ondansetron HCl (Ondansetron 2 Mg/Ml Sdv 2 Ml) 4 mg IVP ONCE ONE Stop: 04/13/24 19:03 Last Admin: 04/13/24 19:12 Dose: 4 mg Ondansetron HCl (Ondansetron 2 Mg/Ml Sdv 2 Ml) 4 mg IVP Q8H PRN PRN Reason: vomiting, or N/V if npo Oxycodone HCl (Oxycodone 5 Mg Ir Tab/Cap) 10 mg PO Q8H PRN PRN Reason: Pain, Moderate Last Admin: 04/15/24 20:55 Dose: 10 mg Oxycodone HCl (Oxycodone 5 Mg Ir Tab/Cap) 10 mg PO ONCE ONE Stop: 04/14/24 21:11 Last Admin: 04/14/24 22:27 Dose: 10 mg Oxycodone HCl (Oxycodone 5 Mg Ir Tab/Cap) 10 mg PO Q4H PRN PRN Reason: SEVERE PAIN Oxycodone/Acetaminophen (Oxycodone-Apap 10-325 Mg Tablet) 1 - 2 tab PO Q4H PRN PRN Reason: MODERATE TO SEVERE PAIN Last Admin: 04/14/24 09:49 Dose: 2 tab Pantoprazole Sodium (Pantoprazole 40 Mg Sdv) 40 mg IVP Q12H [facility] Last Admin: 04/14/24 12:07 Dose: 40 mg Potassium Chloride (Potassium Chloride Oral Liq 20 Meq/15 Ml Udc) 20 meq PO ONCE ONE Stop: 04/13/24 22:28 Last Admin: 04/13/24 22:52 Dose: 20 meq Potassium Chloride (Potassium Chloride Er 20 Meq Tablet) 40 meq PO ONCE ONE Stop: 04/15/24 16:47 Last Admin: 04/15/24 17:44 Dose: 40 meq Potassium Chloride (Potassium Chloride Er 20 Meq Tablet) 40 meq PO ONCE ONE Stop: 04/17/24 10:32 Last Admin: 04/17/24 10:46 Dose: 40 meq Prochlorperazine Edisylate (Prochlorperazine 10 Mg/2 Ml Inj) 5 mg IVP ONCE ONE Stop: 04/13/24 21:41 Last Admin: 04/13/24 21:47 Dose: 5 mg Temazepam (Temazepam 15 Mg Capsule) 15 mg PO BEDTIME PRN PRN Reason: INSOMNIA Trazodone HCl (Trazodone 50 Mg Tablet) 25 mg PO QPM PRN PRN Reason: insomnia Last Admin: 04/14/24 01:56 Dose: 25 mg Trazodone HCl (Trazodone 50 Mg Tablet) 25 mg PO BEDTIME ONE Stop: 04/16/24 22:55 Last Admin: 04/16/24 23:09 Dose: 25 mg Allergies No Known Allergies Allergy (Verified 01/04/24 19:29) Home Medications calcium 600 mg (as carbonate)-vit D3 10 mcg (400 unit) chewable tablet (Calcium 600 with Vitamin D3) 1 tab PO DAILY 03/28/19 [History Confirmed 04/14/24] albuterol sulfate 90 mcg/actuation aerosol inhaler 2 puff inhalation Q6H PRN Shortness Of Breath Or Wheezing 07/24/22 [History Confirmed 04/14/24] atorvastatin 40 mg tablet 40 mg PO BEDTIME 07/24/22 [History Confirmed 04/14/24] 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 10/03/22 [Rx Confirmed 04/14/24] oxycodone 10 mg tablet 10 - 20 mg PO Q4H PRN Pain, Moderate 11/19/23 [History Confirmed 04/14/24] ropinirole 1 mg tablet 0.5 mg PO BEDTIME 11/19/23 [History Confirmed 04/14/24] budesonide-formoterol HFA 160 mcg-4.5 mcg/actuation aerosol inhaler (Symbicort) 2 puff inhalation BID 12/09/23 [History Confirmed 04/14/24] pantoprazole 40 mg tablet,delayed release 40 mg PO BID #60 tabs 12/14/23 [Rx Confirmed 04/14/24] sennosides 8.6 mg tablet (senna) 17.2 mg (2 x 8.6 mg) PO BID #60 tabs 12/14/23 [Rx Confirmed 04/14/24] sucralfate 1 gram tablet 1 g PO AC&BEDTIME #120 tabs 12/14/23 [Rx Confirmed 04/14/24] trazodone 50 mg tablet 25 mg (1/2 x 50 mg) PO QPM PRN insomnia #4 tabs 01/05/24 [Rx Confirmed 04/14/24] ondansetron 4 mg disintegrating tablet 4 mg PO Q8H PRN Nausea And Vomiting 01/09/24 [History Confirmed 04/14/24] sertraline 25 mg tablet 25 mg PO DAILY #100 tabs 02/15/24 [Rx Confirmed 04/14/24] meloxicam 7.5 mg tablet 7.5 mg PO .Twice daily #14 tabs 03/06/24 [Rx Confirmed 04/14/24] cyanocobalamin (vitamin B-12) 1,000 mcg tablet (Vitamin B-12) 1,000 mcg PO DAILY #90 tabs 03/28/24 [Rx Confirmed 04/14/24] amlodipine 10 mg tablet 10 mg PO QAM 04/14/24 [History Confirmed 04/14/24] aripiprazole 5 mg tablet 2.5 mg PO QAM 04/14/24 [History Confirmed 04/14/24] ferrous gluconate 324 mg (38 mg iron) tablet 324 mg PO BID 04/14/24 [History Confirmed 04/14/24] levothyroxine 100 mcg tablet 100 mcg PO QAM 04/14/24 [History Confirmed 04/14/24] lisinopril 30 mg tablet 15 mg PO QAM 04/14/24 [History Confirmed 04/14/24] melatonin 3 mg tablet 6 mg PO BEDTIME 04/14/24 [History Confirmed 04/14/24] mirtazapine 7.5 mg tablet 735 mg PO BEDTIME 04/14/24 [History Confirmed 04/14/24] Discharge Plan Discharge Patient Disposition: Xfer Short-Term Hosp Condition: Stable Prescriptions: No Action (DME) Monet [employer] See Rx Instructions .Route .MEDSUPPLY Qty: 1 0RF Rx Instructions: As directed by HOME sertraline 25 mg tablet 25 mg PO DAILY Qty: 100 0RF meloxicam 7.5 mg tablet 7.5 mg PO .Twice daily Qty: 14 0RF cyanocobalamin (vitamin B-12) [Vitamin B-12] 1,000 mcg tablet 1,000 mcg PO DAILY Qty: 90 3RF Calcium 600 with Vitamin D3 600 mg(1,500mg) -400 unit Tablet,Chewable 1 tab PO DAILY atorvastatin 40 mg tablet 40 mg PO BEDTIME albuterol sulfate 90 mcg/actuation HFA aerosol inhaler 2 puff inhalation Q6H PRN (Reason: Shortness Of Breath Or Wheezing) budesonide-formoterol [Symbicort] 160-4.5 mcg/actuation HFA aerosol inhaler 2 puff INHALATION BID pantoprazole 40 mg Tablet,Delayed Release (Dr/Ec) 40 mg PO BID Qty: 60 0RF sennosides [senna] 8.6 mg Tablet 17.2 mg PO BID Qty: 60 0RF sucralfate 1 gram Tablet 1 g PO AC&BEDTIME Qty: 120 0RF trazodone 50 mg tablet 25 mg PO QPM PRN (Reason: insomnia) Qty: 4 0RF ondansetron 4 mg tablet,disintegrating 4 mg PO Q8H PRN (Reason: Nausea And Vomiting) ropinirole 1 mg tablet 0.5 mg PO BEDTIME oxycodone 10 mg tablet 10 - 20 mg PO Q4H PRN (Reason: Pain, Moderate) Rx Instructions: TAKE 1 TO 2 TABLETS BY MOUTH EVERY 4 TO 6 HOURS NEEDED FOR PAIN max 6 PER day melatonin 3 mg tablet 6 mg PO BEDTIME levothyroxine 100 mcg tablet 100 mcg PO QAM amlodipine 10 mg tablet 10 mg PO QAM lisinopril 30 mg tablet 15 mg PO QAM aripiprazole 5 mg tablet 2.5 mg PO QAM mirtazapine 7.5 mg tablet 735 mg PO BEDTIME ferrous gluconate 324 mg (38 mg iron) tablet 324 mg PO BID Discharge Orders: Transfer Out of Facility (Order); Ordered 04/16/24 Ordered By: Eileen Bright Discharge Diet: Cardiac Discharge Activity: Increase activity as tolerated Transfer Attestations Time Spent in Transfer Care: greater than 30 min Quality Metrics Clinical Quality Measures [ No reported AMI, CVA or VTE this stay] Coding Level of Care Code Acute Code for Chg Fwd Diagnoses Ventricular tachycardia (paroxysmal) I47.20 Sinus bradycardia R00.1 Essential hypertension I10 Hypertension type: essential hypertension
--- NOTE | 2024-04-18 18:07 | PC.NURSE ---
Report called to Madelaine cummings to [facility] for unit 4D bed 4254 bed 2. patient to notify daughter
[2024-04-18] MEDS: alum-mag-hydroxide-sime 30 mL UDC PO (19:42)
[2024-04-18] MEDS: ropinirole 1 mg Tablet 0.5 MG PO (20:11)
[2024-04-18] MEDS: atorvastatin 40 mg Tablet PO (20:14)
[2024-04-18] MEDS: mirtazapine 15 mg Tablet 7.5 MG PO (20:14)
[2024-04-19] VITALS: BP 141/63
--- OUTSIDE RECORDS SUMMARY | 2024-04-29 05:26 | XMS_ITS | Encounter Summary ---
Author Organization [facility] Address [address] [place] [address] Care Team Providers Care Director Of Video Analytics Name Role Phone Unavailable Primary Care Provider Unavailabl e Encounter Details Date Type Department Care Team (Late st Contact Info) Description 05/10/2015 Lab Requisition [facility] Laboratory Services [address] [place] [address] [place] [address] Magdi Crawford MD [address] [place] [address] Social History Tobacco Use Types Packs/Day Years Used Date Smoking Tobacco: Never Assessed Comments Unknown Sex and Gender Information Value Date Recorded Sex Assigned at Not on file Legal Sex Female 4:17 AM CREDIT OFFICER Gender Identity Not on file Sexual Orientation Not on file documented as of this encounter Plan of Treatment Not on file documented as of this encounter Procedures Procedure Name Priority Date/Time Associated Diagnosis Comments PHOSPHORUS Routine 05/10/2015 7:00 AM CREDIT OFFICER documented in this encounter Results * PHOSPHORUS (05/10/2015 7:00 AM CREDIT OFFICER) PHOSPHORUS 3.1 2.5 - 4.9 mg/dL 05/10/2015 8:49 AM CREDIT OFFICER [facility] [employer] [facility] Blood Collection / Unknown 05/10/2015 7:00 AM CREDIT OFFICER 05/10/2015 8:02 AM CREDIT OFFICER us Magdi Crawford MD CHEMISTRY ORDERABLES Final Result [facility] [employer] [facility]# [id number] [address] [place] [address] documented in this encounter Visit Diagnoses Not on filedocumented in this encounter
--- OUTSIDE RECORDS SUMMARY | 2024-04-29 05:26 | XMS_ITS | Encounter Summary ---
Author Organization [facility] Address [address] [place] [address] Care Team Providers Care Analytical Engineer Name Role Phone Unavailable Primary Care Provider Unavailabl e Encounter Details Date Type Department Care Team (Late st Contact Info) Description 05/09/2015 Lab Requisition [facility] Laboratory Services [address] [place] [address] [place] [address] Magdi Crawford MD [address] [place] [address] Social History Tobacco Use Types Packs/Day Years Used Date Smoking Tobacco: Never Assessed Comments Unknown Sex and Gender Information Value Date Recorded Sex Assigned at Not on file Legal Sex Female 4:17 AM STAMP MAKER Gender Identity Not on file Sexual Orientation Not on file documented as of this encounter Plan of Treatment Not on file documented as of this encounter Procedures Procedure Name Priority Date/Time Associated Diagnosis Comments CBC WITHOUT DIFFERENTIAL Routine 05/09/2015 4:50 AM STAMP MAKER BASIC METABOLIC PANEL Routine 05/09/2015 4:50 AM STAMP MAKER documented in this encounter Results * (ABNORMAL) CBC WITHOUT DIFFERENTIAL (05/09/2015 4:50 AM STAMP MAKER) WBC 11.3(H) 4.8 - 10.8 K/uL 05/09/2015 6:00 AM STAMP MAKER [facility] RBC 3.06(L) 4.20 - 5.40 M/uL 05/09/2015 6:00 AM STAMP MAKER [facility] HEMOGLOBIN 8.3(L) 12.0 - 16.0 g/dL 05/09/2015 6:00 AM [facility] HEMATOCRIT 26.9(L) 36.0 - 46.0 % 05/09/2015 6:00 AM [facility] MCV 87.9 84.0 - 103.0 fL 05/09/2015 6:00 AM [facility] MCH 27.1 27.0 - 34.0 pg 05/09/2015 6:00 AM [facility] MCHC 30.9 30.0 - 35.0 g/dL 05/09/2015 6:00 AM [facility] PLATELETS 457(H) 140 - 440 K/uL 05/09/2015 6:00 AM [facility] MPV 10.4 8.9 - 12.8 fL 05/09/2015 6:00 AM [facility] RDW 16.5(H) 11.0 - 14.5 % 05/09/2015 6:00 AM [facility] RDW-STDEV 51.9 37.0 - 54.0 fL 05/09/2015 6:00 AM [facility] Blood Collection / Unknown 05/09/2015 4:50 AM STAMP MAKER 05/09/2015 5:47 AM STAMP MAKER us Magdi Crawford MD HEMATOLOGY ORDERABLES Final Result [facility]# [id number] [address] [place] [address] * (ABNORMAL) BASIC METABOLIC PANEL (05/09/2015 4:50 AM STAMP MAKER) SODIUM 137 136 - 145 mmol/L 05/09/2015 6:38 AM [facility] POTASSIUM 4.6 3.5 - 5.1 mmol/L 05/09/2015 6:38 AM [facility] CHLORIDE 104 98 - 107 mmol/L 05/09/2015 6:38 AM [facility] CO2 27 21 - 32 mmol/L 05/09/2015 6:38 AM [facility] CALCIUM 8.1(L) 8.4 - 10.1 mg/dL 05/09/2015 6:38 AM [facility] BUN 18(H) 7 - 17 mg/dL 05/09/2015 6:38 AM [facility] CREATININE 0.47(L) 0.55 - 1.02 mg/dL 05/09/2015 6:38 AM [facility] GLUCOSE 93 74 - 106 mg/dL 05/09/2015 6:38 AM [facility] GFR >60 >=60 mL/min/1. 73 sq meter 05/09/2015 6:38 AM [facility] Comment: eGFR has not been validated for use in the elderly (> 70 years of age), women, patients with serious co-morbid conditions, or persons with extremes of body size or muscle mass and should also be interpreted with caution in patients with acute kidney failure, dialysis dependent patients, patients reporting exceptional dietary intake (e.g. vegetarian diet, high protein diets, creatine supplementation), and patients with severe liver disease. Based on National Kidney Disease Education Program If patient is , please refer to the GFR result. GFR, >60 >=60 mL/min/1. 73 sq meter 05/09/2015 6:38 AM [facility] ANION GAP 6(L) 8 - 16 mmol/L 05/09/2015 6:38 AM [facility] Blood Collection / Unknown 05/09/2015 4:50 AM STAMP MAKER 05/09/2015 5:47 AM [facility] us Magdi Crawford MD CHEMISTRY ORDERABLES Final Result [facility] CLIA# [id number] [address] [place] [address] documented in this encounter Visit Diagnoses Not on filedocumented in this encounter
--- OUTSIDE RECORDS SUMMARY | 2024-04-29 05:26 | XMS_ITS | Encounter Summary ---
Author Organization [facility] Address [address] [place] [address] Care Team Providers Care Computer Networking Instructor Name Role Phone Unavailable Primary Care Provider Unavailabl e Encounter Details Date Type Department Care Team (Late st Contact Info) Description 05/05/2015 Lab Requisition [facility] Laboratory Services [address] [place] [address] [place] [address] Magdi Crawford MD [address] [place] [address] Social History Tobacco Use Types Packs/Day Years Used Date Smoking Tobacco: Never Assessed Comments Unknown Sex and Gender Information Value Date Recorded Sex Assigned at Not on file Legal Sex Female 4:17 AM CHIEF MARKETING OFFICER Gender Identity Not on file Sexual Orientation Not on file documented as of this encounter Plan of Treatment Not on file documented as of this encounter Procedures Procedure Name Priority Date/Time Associated Diagnosis Comments CBC WITH DIFFERENTIAL Routine 05/05/2015 6:00 AM CHIEF MARKETING OFFICER COMPREHENSIVE METABOLIC PANEL Routine 05/05/2015 6:00 AM CHIEF MARKETING OFFICER documented in this encounter Results * (ABNORMAL) CBC WITH DIFFERENTIAL (05/05/2015 6:00 AM CHIEF MARKETING OFFICER) WBC 9.6 4.8 - 10.8 K/uL 05/05/2015 7:28 AM CHIEF MARKETING OFFICER [facility] RBC 3.05(L) 4.20 - 5.40 M/uL 05/05/2015 7:28 AM CHIEF MARKETING OFFICER [facility] HEMOGLOBIN 8.5(L) 12.0 - 16.0 g/dL 05/05/2015 7:28 AM [facility] [employer] [facility] HEMATOCRIT 27.1(L) 36.0 - 46.0 % 05/05/2015 7:28 AM [facility] [employer] [facility] MCV 88.9 84.0 - 103.0 fL 05/05/2015 7:28 AM [facility] MCH 27.9 27.0 - 34.0 pg 05/05/2015 7:28 AM [facility] MCHC 31.4 30.0 - 35.0 g/dL 05/05/2015 7:28 AM [facility] [employer] [facility] RDW 16.4(H) 11.0 - 14.5 % 05/05/2015 7:28 AM [facility] RDW-STDEV 52.7 37.0 - 54.0 fL 05/05/2015 7:28 AM [facility] PLATELETS 367 140 - 440 K/uL 05/05/2015 7:28 AM [facility] [employer] [facility] MPV 10.7 8.9 - 12.8 fL 05/05/2015 7:28 AM [facility] NEUTROPHILS 78(H) 42 - 75 % 05/05/2015 7:28 AM [facility] LYMPHOCYTES 11(L) 24 - 44 % 05/05/2015 7:28 AM [facility] [employer] [facility] MONOCYTES 7 2 - 10 % 05/05/2015 7:28 AM [facility] [employer] [facility] EOSINOPHILS 3 0 - 7 % 05/05/2015 7:28 AM [facility] [employer] [facility] BASOPHILS 0 0 - 1 % 05/05/2015 7:28 AM [facility] [employer] [facility] NEUTROPHIL ABSOLUTE 7.44 2.00 - 8.00 K/uL 05/05/2015 7:28 AM [facility] LYMPHOCYTE ABSOLUTE 1.08(L) 1.20 - 4.00 K/uL 05/05/2015 7:28 AM [facility] [employer] [facility] MONOCYTE ABSOLUTE 0.67(H) 0.10 - 0.60 K/uL 05/05/2015 7:28 AM [facility] [employer] [facility] EOSINOPHIL ABSOLUTE 0.29 0.00 - 0.70 K/uL 05/05/2015 7:28 AM [facility] BASOPHILS ABSOLUTE 0.02 0.00 - 0.20 K/uL 05/05/2015 7:28 AM [facility] IMMATURE GRANULOCYTES 1 0 - 2 % 05/05/2015 7:28 AM [facility] IMMATURE GRANULOCYTES ABSOLUTE 0.11(H) 0.00 - 0.10 K/uL 05/05/2015 7:28 AM [facility] Blood Collection / Unknown 05/05/2015 6:00 AM CHIEF MARKETING OFFICER 05/05/2015 7:23 AM CHIEF MARKETING OFFICER us Magdi Crawford MD HEMATOLOGY ORDERABLES Final Result [facility] CLIA# [id number] [address] [place] [address] * (ABNORMAL) COMPREHENSIVE METABOLIC PANEL (05/05/2015 6:00 AM CHIEF MARKETING OFFICER) SODIUM 140 136 - 145 mmol/L 05/05/2015 7:52 AM [facility] POTASSIUM 3.7 3.5 - 5.1 mmol/L 05/05/2015 7:52 AM [facility] CHLORIDE 103 98 - 107 mmol/L 05/05/2015 7:52 AM [facility] CO2 30 21 - 32 mmol/L 05/05/2015 7:52 AM [facility] CALCIUM 7.9(L) 8.4 - 10.1 mg/dL 05/05/2015 7:52 AM [facility] BUN 18(H) 7 - 17 mg/dL 05/05/2015 7:52 AM [facility] CREATININE 0.41(L) 0.55 - 1.02 mg/dL 05/05/2015 7:52 AM [facility] GLUCOSE 163(H) 74 - 106 mg/dL 05/05/2015 7:52 AM [facility] TOTAL PROTEIN 6.0(L) 6.4 - 8.2 g/dL 05/05/2015 7:52 AM [facility] ALBUMIN 1.8(L) 3.4 - 5.0 g/dL 05/05/2015 7:52 AM [facility] BILIRUBIN TOTAL 0.3 0.2 - 1.0 mg/dL 05/05/2015 7:52 AM [facility] ALKALINE PHOSPHATASE 107(H) 25 - 100 U/L 05/05/2015 7:52 AM [facility] AST 21 15 - 37 U/L 05/05/2015 7:52 AM [facility] ALT 14 13 - 61 U/L 05/05/2015 7:52 AM [facility] GFR >60 >=60 mL/min/1. 73 sq meter 05/05/2015 7:52 AM [facility] Comment: eGFR has not been validated for [...] GFR, >60 >=60 mL/min/1. 73 sq meter 05/05/2015 7:52 AM [facility] ANION GAP 7(L) 8 - 16 mmol/L 05/05/2015 7:52 AM [facility] Blood Collection / Unknown 05/05/2015 6:00 AM CHIEF MARKETING OFFICER 05/05/2015 7:23 AM CHIEF MARKETING OFFICER Magdi Crawford MD CHEMISTRY ORDERABLES Final Result [facility] CLIA# [id number] [address] [place] [address] documented in this encounter Visit Diagnoses Not on filedocumented in this encounter
--- OUTSIDE RECORDS SUMMARY | 2024-04-29 05:26 | XMS_ITS | Clinical Summary ---
Author Organization [employer] [facility] Address [address] [facility] Attn: Epic Prelude ADT KELSY ARITA [address] Care Team Providers Care Warp Picker Name Role Phone Unavailable Primary Care Provider Unavailabl e Immunizations Immunization Administration Dates Next Due Hepatitis B Vaccine 01/12/2000 Influenza Seasonal Unspecified Formulation IM Social History Tobacco Use Types Packs/Day Years Used Date Smoking Tobacco: Never Assessed Comments Unknown Sex and Gender Information Value Date Recorded Sex Assigned at Not on file Legal Sex Female 4:17 AM SANITATION MANAGER Gender Identity Not on file Sexual Orientation Not on file Plan of Treatment Health Maintenance Due Date Last Done Comments DTAP/TDAP/TD VACCINES (1 - Tdap) 1965 PNEUMOCOCCAL VACCINE 65+ YEARS (1 of 1 - PCV) 12/21/18 97 ZOSTER VACCINE (1 of 2) 1996 OSTEOPOROSIS SCREENING 12/22/2011 RSV VACCINE (60+ or ) (1 - 1-dose 75+ series) 2021 INFLUENZA VACCINE (#1) 2023 02/22/2000
--- OUTSIDE RECORDS SUMMARY | 2024-04-29 05:26 | XMS_ITS | Encounter Summary ---
Author Organization [employer] [facility] Address [address] [place] [address] Care Team Providers Care Internet Designer Name Role Phone Unavailable Primary Care Provider Unavailabl e Encounter Details Date Type Department Care Team (Late st Contact Info) Description 05/10/2015 Lab Requisition [facility] Laboratory Services [address] [place] [address] [place] [address] Magdi Crawford MD [address] [place] [address] Social History Tobacco Use Types Packs/Day Years Used Date Smoking Tobacco: Never Assessed Comments Unknown Sex and Gender Information Value Date Recorded Sex Assigned at Not on file Legal Sex Female 4:17 AM TOPLINE BEADING MACHINE TENDER Gender Identity Not on file Sexual Orientation Not on file documented as of this encounter Plan of Treatment Not on file documented as of this encounter Procedures Procedure Name Priority Date/Time Associated Diagnosis Comments TRIGLYCERIDE Routine 05/10/2015 7:00 AM TOPLINE BEADING MACHINE TENDER MAGNESIUM LEVEL Routine 05/10/2015 7:00 AM TOPLINE BEADING MACHINE TENDER COMPREHENSIVE METABOLIC PANEL Routine 05/10/2015 7:00 AM TOPLINE BEADING MACHINE TENDER documented in this encounter Results * (ABNORMAL) TRIGLYCERIDE (05/10/2015 7:00 AM TOPLINE BEADING MACHINE TENDER) TRIGLYCERIDE 177(H) <150 mg/dL 05/10/2015 8:16 AM TOPLINE BEADING MACHINE TENDER [facility] Blood Collection / Unknown 05/10/2015 7:00 AM TOPLINE BEADING MACHINE TENDER 05/10/2015 7:42 AM TOPLINE BEADING MACHINE TENDER Narrative [facility] - 05/10/2015 8:16 AM TOPLINE BEADING MACHINE TENDER TRIGLYCERIDES ? mg/dL Normal ?< 150 Borderline High ?150 - 199 High ? 200 - 499 Very High ? >= 500 Based on AHA/NCEP Guidelines. Magdi Crawford MD CHEMISTRY ORDERABLES Final Result Performing Organization Address [facility] de Phone Number [facility] CLIA# [id number] [address] [place] [address] * MAGNESIUM LEVEL (05/10/2015 7:00 AM TOPLINE BEADING MACHINE TENDER) Pathologist [facility] MAGNESIUM 1.8 1.8 - 2.4 mg/dL 05/10/2015 8:16 AM [facility] Blood Collection / Unknown 05/10/2015 7:00 AM TOPLINE BEADING MACHINE TENDER 05/10/2015 7:42 AM TOPLINE BEADING MACHINE TENDER Magdi Crawford MD CHEMISTRY ORDERABLES Final Result Performing Organization Address [facility] de Phone Number [facility] CLIA# [id number] [address] [place] [address] * (ABNORMAL) COMPREHENSIVE METABOLIC PANEL (05/10/2015 7:00 AM TOPLINE BEADING MACHINE TENDER) SODIUM 138 136 - 145 mmol/L 05/10/2015 8:16 AM [facility] POTASSIUM 4.2 3.5 - 5.1 mmol/L 05/10/2015 8:16 AM [facility] CHLORIDE 105 98 - 107 mmol/L 05/10/2015 8:16 AM [facility] CO2 27 21 - 32 mmol/L 05/10/2015 8:16 AM [facility] CALCIUM 7.7(L) 8.4 - 10.1 mg/dL 05/10/2015 8:16 AM [facility] BUN 17 7 - 17 mg/dL 05/10/2015 8:16 AM [facility] CREATININE 0.46(L) 0.55 - 1.02 mg/dL 05/10/2015 8:16 AM [facility] GLUCOSE 148(H) 74 - 106 mg/dL 05/10/2015 8:16 AM [facility] TOTAL PROTEIN 6.0(L) 6.4 - 8.2 g/dL 05/10/2015 8:16 AM [facility] ALBUMIN 1.9(L) 3.4 - 5.0 g/dL 05/10/2015 8:16 AM [facility] BILIRUBIN TOTAL 0.3 0.2 - 1.0 mg/dL 05/10/2015 8:16 AM [facility] ALKALINE PHOSPHATASE 153(H) 25 - 100 U/L 05/10/2015 8:16 AM [facility] [employer] [facility] AST 21 15 - 37 U/L 05/10/2015 8:16 AM [facility] ALT 26 13 - 61 U/L 05/10/2015 8:16 AM [facility] GFR >60 >=60 mL/min/1. 73 sq meter 05/10/2015 8:16 AM [facility] Comment: eGFR has not been validated for [...] GFR, >60 >=60 mL/min/1. 73 sq meter 05/10/2015 8:16 AM [facility] [employer] [facility] ANION GAP 6(L) 8 - 16 mmol/L 05/10/2015 8:16 AM [facility] [employer] [facility] Blood Collection / Unknown 05/10/2015 7:00 AM TOPLINE BEADING MACHINE TENDER 05/10/2015 7:42 AM TOPLINE BEADING MACHINE TENDER us Magdi Crawford MD CHEMISTRY ORDERABLES Final Result Performing Organization Address City/State/[facility] Co de Phone Number [facility]# [id number] [facility] [place] [address] documented in this encounter Visit Diagnoses Not on filedocumented in this encounter
--- OUTSIDE RECORDS SUMMARY | 2024-04-29 05:26 | XMS_ITS | Encounter Summary ---
Author Organization [facility] Address [address] [place] [address] Care Team Providers Care Rn Rehab Name Role Phone Unavailable Primary Care Provider Unavailabl e Encounter Details Date Type Department Care Team (Late st Contact Info) Description 05/09/2015 Lab Requisition [facility] Laboratory Services [address] [place] [address] [place] [address] Magdi Crawford MD [address] [place] [address] Social History Tobacco Use Types Packs/Day Years Used Date Smoking Tobacco: Never Assessed Comments Unknown Sex and Gender Information Value Date Recorded Sex Assigned at Not on file Legal Sex Female 4:17 AM INVASIVE MANAGER Gender Identity Not on file Sexual Orientation Not on file documented as of this encounter Plan of Treatment Not on file documented as of this encounter Procedures Procedure Name Priority Date/Time Associated Diagnosis Comments C. DIFFICILE DETECTION Routine 05/09/2015 4:50 AM INVASIVE MANAGER documented in this encounter Results * CLOSTRIDIUM DIFFICILE TOXIN (05/09/2015 4:50 AM INVASIVE MANAGER) TOXIGENIC C DIFFICILE Not Detected Not Detected 05/09/2015 7:00 AM INVASIVE MANAGER [facility] [employer] [facility] Stool Collection / Unknown 05/09/2015 4:50 AM INVASIVE MANAGER 05/09/2015 5:29 AM INVASIVE MANAGER Narrative [facility] [employer] [facility] - 05/09/2015 7:00 AM INVASIVE MANAGER This assay is used to detect Clostridium difficile toxin B gene sequences in unformed stool specimens. ??If toxin is not detected, but clinical suspicion is high please consult ID for consultation and potential repeat testing. ??This test should not be used as a test of cure. us Magdi Crawford MD MICROBIOLOGY - GENERAL JONATHAN RAI Final Result Performing Organization Address [facility]/State/ZIP Co de Phone Number [facility] SERVICES [facility]# [id number] [address] [place] [address] documented in this encounter Visit Diagnoses Not on filedocumented in this encounter
--- OUTSIDE RECORDS SUMMARY | 2024-04-29 05:26 | XMS_ITS | Encounter Summary ---
Author Organization [facility] Address [address] [place] [address] Care Team Providers Care Filer And Sander Name Role Phone Unavailable Primary Care Provider Unavailabl e Encounter Details Date Type Department Care Team (Late st Contact Info) Description 05/13/2015 Lab Requisition [facility] Laboratory Services [address] [place] [address] Magdi Crawford MD [address] [place] [address] Social History Tobacco Use Types Packs/Day Years Used Date Smoking Tobacco: Never Assessed Comments Unknown Sex and Gender Information Value Date Recorded Sex Assigned at Not on file Legal Sex Female 4:17 AM DIRECT SALES CONSULTANT Gender Identity Not on file Sexual Orientation Not on file documented as of this encounter Plan of Treatment Not on file documented as of this encounter Procedures Procedure Name Priority Date/Time Associated Diagnosis Comments CBC WITH DIFFERENTIAL Routine 05/13/2015 3:30 AM DIRECT SALES CONSULTANT PHOSPHORUS Routine 05/13/2015 3:30 AM DIRECT SALES CONSULTANT MAGNESIUM LEVEL Routine 05/13/2015 3:30 AM DIRECT SALES CONSULTANT COMPREHENSIVE METABOLIC PANEL Routine 05/13/2015 3:30 AM DIRECT SALES CONSULTANT documented in this encounter Results * PHOSPHORUS (05/13/2015 3:30 AM DIRECT SALES CONSULTANT) PHOSPHORUS 3.7 2.5 - 4.9 mg/dL 05/13/2015 6:21 AM DIRECT SALES CONSULTANT [facility] [employer] [facility] Blood Collection / Unknown 05/13/2015 3:30 AM DIRECT SALES CONSULTANT 05/13/2015 5:33 AM DIRECT SALES CONSULTANT Magdi Crawford MD CHEMISTRY ORDERABLES Final Result Performing Organization Address [facility]/ZIP Co de Phone Number [facility] CLIA# [id number] [address] [place] [address] * MAGNESIUM LEVEL (05/13/2015 3:30 AM DIRECT SALES CONSULTANT) Pathologist [facility] MAGNESIUM 1.9 1.8 - 2.4 mg/dL 05/13/2015 6:21 AM [facility] Blood Collection / Unknown 05/13/2015 3:30 AM DIRECT SALES CONSULTANT 05/13/2015 5:33 AM DIRECT SALES CONSULTANT us Magdi Crawford MD CHEMISTRY ORDERABLES Final Result Performing Organization Address [facility] Co de Phone Number [facility] CLIA# [id number] [address] [place] [address] * (ABNORMAL) CBC WITH DIFFERENTIAL (05/13/2015 3:30 AM DIRECT SALES CONSULTANT) Pathologist [facility] WBC 12.9(H) 4.8 - 10.8 K/uL 05/13/2015 6:06 AM [facility] RBC 3.33(L) 4.20 - 5.40 M/uL 05/13/2015 6:06 AM [facility] HEMOGLOBIN 9.0(L) 12.0 - 16.0 g/dL 05/13/2015 6:06 AM [facility] HEMATOCRIT 29.5(L) 36.0 - 46.0 % 05/13/2015 6:06 AM [facility] MCV 88.6 84.0 - 103.0 fL 05/13/2015 6:06 AM [facility] MCH 27.0 27.0 - 34.0 pg 05/13/2015 6:06 AM [facility] MCHC 30.5 30.0 - 35.0 g/dL 05/13/2015 6:06 AM [facility] [employer] [facility] RDW 17.2(H) 11.0 - 14.5 % 05/13/2015 6:06 AM [facility] RDW-STDEV 53.8 37.0 - 54.0 fL 05/13/2015 6:06 AM [facility] [employer] [facility] PLATELETS 460(H) 140 - 440 K/uL 05/13/2015 6:06 AM [facility] [employer] [facility] MPV 10.3 8.9 - 12.8 fL 05/13/2015 6:06 AM [facility] [employer] [facility] NEUTROPHILS 60 42 - 75 % 05/13/2015 6:06 AM [facility] [employer] [facility] LYMPHOCYTES 25 24 - 44 % 05/13/2015 6:06 AM [facility] [employer] [facility] MONOCYTES 7 2 - 10 % 05/13/2015 6:06 AM [facility] [employer] [facility] EOSINOPHILS 3 0 - 7 % 05/13/2015 6:06 AM [facility] [employer] [facility] BASOPHILS 0 0 - 1 % 05/13/2015 6:06 AM [facility] [employer] [facility] NEUTROPHIL ABSOLUTE 7.80 2.00 - 8.00 K/uL 05/13/2015 6:06 AM [facility] [employer] [facility] LYMPHOCYTE ABSOLUTE 3.23 1.20 - 4.00 K/uL 05/13/2015 6:06 AM [facility] [employer] [facility] MONOCYTE ABSOLUTE 0.93(H) 0.10 - 0.60 K/uL 05/13/2015 6:06 AM [facility] [employer] [facility] EOSINOPHIL ABSOLUTE 0.40 0.00 - 0.70 K/uL 05/13/2015 6:06 AM [facility] [employer] [facility] BASOPHILS ABSOLUTE 0.04 0.00 - 0.20 K/uL 05/13/2015 6:06 AM [facility] [employer] [facility] IMMATURE GRANULOCYTES 4(H) 0 - 2 % 05/13/2015 6:06 AM [facility] [employer] [facility] IMMATURE GRANULOCYTES ABSOLUTE 0.51(H) 0.00 - 0.10 K/uL 05/13/2015 6:06 AM [facility] [employer] [facility] Blood Collection / Unknown 05/13/2015 3:30 AM DIRECT SALES CONSULTANT 05/13/2015 5:33 AM DIRECT SALES CONSULTANT us Magdi Crawford MD HEMATOLOGY ORDERABLES Final Result [facility] CLIA# [id number] [facility] [place] [address] * (ABNORMAL) COMPREHENSIVE METABOLIC PANEL (05/13/2015 3:30 AM DIRECT SALES CONSULTANT) SODIUM 139 136 - 145 mmol/L 05/13/2015 6:21 AM [facility] POTASSIUM 4.3 3.5 - 5.1 mmol/L 05/13/2015 6:21 AM [facility] CHLORIDE 105 98 - 107 mmol/L 05/13/2015 6:21 AM [facility] CO2 25 21 - 32 mmol/L 05/13/2015 6:21 AM [facility] CALCIUM 8.4 8.4 - 10.1 mg/dL 05/13/2015 6:21 AM [facility] BUN 19(H) 7 - 17 mg/dL 05/13/2015 6:21 AM [facility] CREATININE 0.46(L) 0.55 - 1.02 mg/dL 05/13/2015 6:21 AM [facility] GLUCOSE 125(H) 74 - 106 mg/dL 05/13/2015 6:21 AM [facility] TOTAL PROTEIN 6.3(L) 6.4 - 8.2 g/dL 05/13/2015 6:21 AM [facility] ALBUMIN 2.2(L) 3.4 - 5.0 g/dL 05/13/2015 6:21 AM [facility] BILIRUBIN TOTAL 0.5 0.2 - 1.0 mg/dL 05/13/2015 6:21 AM [facility] ALKALINE PHOSPHATASE 178(H) 25 - 100 U/L 05/13/2015 6:21 AM [facility] AST 18 15 - 37 U/L 05/13/2015 6:21 AM [facility] ALT 30 13 - 61 U/L 05/13/2015 6:21 AM [facility] GFR >60 >=60 mL/min/1. 73 sq meter 05/13/2015 6:21 AM [facility] Comment: eGFR has not been validated [...] GFR, >60 >=60 mL/min/1. 73 sq meter 05/13/2015 6:21 AM [facility] ANION GAP 9 8 - 16 mmol/L 05/13/2015 6:21 AM [facility] Blood Collection / Unknown 05/13/2015 3:30 AM DIRECT SALES CONSULTANT 05/13/2015 5:33 AM DIRECT SALES CONSULTANT us Magdi Crawford MD CHEMISTRY ORDERABLES Final Result [facility] CLIA# [id number] [address] [place] [address] documented in this encounter Visit Diagnoses Not on filedocumented in this encounter
--- OUTSIDE RECORDS SUMMARY | 2024-04-29 05:26 | XMS_ITS | Encounter Summary ---
Author Organization [employer] [facility] Address [address] [place] [address] Care Team Providers Care Underwater Roboticist Name Role Phone Unavailable Primary Care Provider Unavailabl e Encounter Details Date Type Department Care Team (Late st Contact Info) Description 05/06/2015 Lab Requisition [facility] Laboratory Services [address] [place] [address] Magdi Crawford MD [address] [place] [address] Social History Tobacco Use Types Packs/Day Years Used Date Smoking Tobacco: Never Assessed Comments Unknown Sex and Gender Information Value Date Recorded Sex Assigned at Not on file Legal Sex Female 4:17 AM SUPERVISOR RIPRAP PLACING Gender Identity Not on file Sexual Orientation Not on file documented as of this encounter Plan of Treatment Not on file documented as of this encounter Procedures Procedure Name Priority Date/Time Associated Diagnosis Comments CBC WITH DIFFERENTIAL Routine 05/06/2015 3:10 AM SUPERVISOR RIPRAP PLACING PHOSPHORUS Routine 05/06/2015 3:10 AM SUPERVISOR [employer]RAP [employer]ACING MAGNESIUM LEVEL Routine 05/06/2015 3:10 AM SUPERVISOR RIPRAP PLACING COMPREHENSIVE METABOLIC PANEL Routine 05/06/2015 3:10 AM SUPERVISOR RIPRAP PLACING documented in this encounter Results * PHOSPHORUS (05/06/2015 3:10 AM SUPERVISOR RIPRAP PLACING) PHOSPHORUS 3.3 2.5 - 4.9 mg/dL 05/06/2015 6:13 AM SUPERVISOR RIPRAP PLACING [facility] [employer] [facility] Blood Collection / Unknown 05/06/2015 3:10 AM SUPERVISOR RIPRAP PLACING 05/06/2015 5:15 AM SUPERVISOR RIPRAP PLACING us Magdi Crawford MD CHEMISTRY ORDERABLES Final Result Performing Organization Address [facility] [address]/[facility] Co de Phone Number [facility] CLIA# [id number] [address] [place] [address] * MAGNESIUM LEVEL (05/06/2015 3:10 AM SUPERVISOR RIPRAP PLACING) Pathologist [facility] MAGNESIUM 1.9 1.8 - 2.4 mg/dL 05/06/2015 6:13 AM [facility] Blood Collection / Unknown 05/06/2015 3:10 AM SUPERVISOR RIPRAP PLACING 05/06/2015 5:15 AM SUPERVISOR [employer]RAP PLACING us Magdi Crawford MD CHEMISTRY ORDERABLES Final Result Performing Organization Address [facility] [address]/[facility] Co de Phone Number [facility] CLIA# [id number] [address] [place] [address] * (ABNORMAL) CBC WITH DIFFERENTIAL (05/06/2015 3:10 AM SUPERVISOR RIPRAP PLACING) [facility] WBC 9.2 4.8 - 10.8 K/uL 05/06/2015 5:55 AM [facility] RBC 3.06(L) 4.20 - 5.40 M/uL 05/06/2015 5:55 AM [facility] HEMOGLOBIN 8.3(L) 12.0 - 16.0 g/dL 05/06/2015 5:55 AM [facility] HEMATOCRIT 27.0(L) 36.0 - 46.0 % 05/06/2015 5:55 AM [facility] MCV 88.2 84.0 - 103.0 fL 05/06/2015 5:55 AM [facility] MCH 27.1 27.0 - 34.0 pg 05/06/2015 5:55 AM [facility] MCHC 30.7 30.0 - 35.0 g/dL 05/06/2015 5:55 AM [facility] RDW 16.4(H) 11.0 - 14.5 % 05/06/2015 5:55 AM [facility] RDW-STDEV 52.1 37.0 - 54.0 fL 05/06/2015 5:55 AM [facility] PLATELETS 435 140 - 440 K/uL 05/06/2015 5:55 AM [facility] MPV 10.7 8.9 - 12.8 fL 05/06/2015 5:55 AM [facility] NEUTROPHILS 69 42 - 75 % 05/06/2015 5:55 AM [facility] LYMPHOCYTES 16(L) 24 - 44 % 05/06/2015 5:55 AM [facility] [employer] [facility] MONOCYTES 8 2 - 10 % 05/06/2015 5:55 AM [facility] [employer] [facility] EOSINOPHILS 5 0 - 7 % 05/06/2015 5:55 AM [facility] BASOPHILS 0 0 - 1 % 05/06/2015 5:55 AM [facility] NEUTROPHIL ABSOLUTE 6.34 2.00 - 8.00 K/uL 05/06/2015 5:55 AM [facility] LYMPHOCYTE ABSOLUTE 1.48 1.20 - 4.00 K/uL 05/06/2015 5:55 AM [facility] MONOCYTE ABSOLUTE 0.76(H) 0.10 - 0.60 K/uL 05/06/2015 5:55 AM [facility] [employer] [facility] EOSINOPHIL ABSOLUTE 0.49 0.00 - 0.70 K/uL 05/06/2015 5:55 AM [facility] BASOPHILS ABSOLUTE 0.03 0.00 - 0.20 K/uL 05/06/2015 5:55 AM [facility] IMMATURE GRANULOCYTES 1 0 - 2 % 05/06/2015 5:55 AM [facility] IMMATURE GRANULOCYTES ABSOLUTE 0.12(H) 0.00 - 0.10 K/uL 05/06/2015 5:55 AM [facility] [employer] [facility] Blood Collection / Unknown 05/06/2015 3:10 AM SUPERVISOR RIPRAP [employer]ACING 05/06/2015 5:15 AM SUPERVISOR [employer]RAP PLACING us Magdi Crawford MD HEMATOLOGY ORDERABLES Final Result [facility] CLIA# [id number] [facility] [place] [address] * (ABNORMAL) COMPREHENSIVE METABOLIC PANEL (05/06/2015 3:10 AM SUPERVISOR RIPRAP PLACING) [facility] SODIUM 140 136 - 145 mmol/L 05/06/2015 6:13 AM [facility] POTASSIUM 3.8 3.5 - 5.1 mmol/L 05/06/2015 6:13 AM [facility] CHLORIDE 103 98 - 107 mmol/L 05/06/2015 6:13 AM [facility] CO2 30 21 - 32 mmol/L 05/06/2015 6:13 AM [facility] CALCIUM 7.9(L) 8.4 - 10.1 mg/dL 05/06/2015 6:13 AM [facility] BUN 20(H) 7 - 17 mg/dL 05/06/2015 6:13 AM [facility] CREATININE 0.51(L) 0.55 - 1.02 mg/dL 05/06/2015 6:13 AM [facility] GLUCOSE 144(H) 74 - 106 mg/dL 05/06/2015 6:13 AM [facility] TOTAL PROTEIN 6.0(L) 6.4 - 8.2 g/dL 05/06/2015 6:13 AM [facility] ALBUMIN 1.8(L) 3.4 - 5.0 g/dL 05/06/2015 6:13 AM [facility] BILIRUBIN TOTAL 0.2 0.2 - 1.0 mg/dL 05/06/2015 6:13 AM [facility] ALKALINE PHOSPHATASE 127(H) 25 - 100 U/L 05/06/2015 6:13 AM [facility] AST 43(H) 15 - 37 U/L 05/06/2015 6:13 AM [facility] ALT 37 13 - 61 U/L 05/06/2015 6:13 AM [facility] GFR >60 >=60 mL/min/1. 73 sq meter 05/06/2015 6:13 AM [facility] Comment: eGFR has not been validated for [...] GFR, >60 >=60 mL/min/1. 73 sq meter 05/06/2015 6:13 AM [facility] ANION GAP 7(L) 8 - 16 mmol/L 05/06/2015 6:13 AM [facility] Blood Collection / Unknown 05/06/2015 3:10 AM SUPERVISOR [employer]ACING 05/06/2015 5:15 AM SUPERVISOR [employer]ACING us Magdi Crawford MD CHEMISTRY ORDERABLES Final Result [facility] CLIA# [id number] [address] [place] [address] documented in this encounter Visit Diagnoses Not on filedocumented in this encounter
--- OUTSIDE RECORDS SUMMARY | 2024-04-29 05:26 | XMS_ITS | Encounter Summary ---
Author Organization [facility] Address [address] [place] [address] Care Team Providers Care Glass Beveller Name Role Phone Unavailable Primary Care Provider Unavailabl e Encounter Details Date Type Department Care Team (Late st Contact Info) Description 05/17/2015 Lab Requisition [facility] Laboratory Services [facility] [address] [place] [address] Magdi Crawford MD [address] [place] [address] Social History Tobacco Use Types Packs/Day Years Used Date Smoking Tobacco: Never Assessed Comments Unknown Sex and Gender Information Value Date Recorded Sex Assigned at Not on file Legal Sex Female 4:17 AM METAL CAN INSPECTOR Gender Identity Not on file Sexual Orientation Not on file documented as of this encounter Plan of Treatment Not on file documented as of this encounter Procedures Procedure Name Priority Date/Time Associated Diagnosis Comments PHOSPHORUS Routine 05/17/2015 3:30 AM METAL CAN INSPECTOR MAGNESIUM LEVEL Routine 05/17/2015 3:30 AM METAL CAN INSPECTOR documented in this encounter Results * PHOSPHORUS (05/17/2015 3:30 AM METAL CAN INSPECTOR) PHOSPHORUS 3.9 2.5 - 4.9 mg/dL 05/17/2015 8:49 AM METAL CAN INSPECTOR [facility] Blood Venipuncture - Floor Collect / Unknown 05/17/2015 3:30 AM METAL CAN INSPECTOR 05/17/2015 8:28 AM METAL CAN INSPECTOR us Magdi Crawford MD CHEMISTRY ORDERABLES Final Result Performing Organization Address City/[facility]/ZIP Co de Phone Number [facility] CLIA# [id number] [address] [place], [place] [id number] * MAGNESIUM LEVEL (05/17/2015 3:30 AM METAL CAN INSPECTOR) MAGNESIUM 1.9 1.8 - 2.4 mg/dL 05/17/2015 8:49 AM METAL CAN INSPECTOR [facility] Blood Venipuncture - Floor Collect / Unknown 05/17/2015 3:30 AM METAL CAN INSPECTOR 05/17/2015 8:28 AM METAL CAN INSPECTOR us Magdi Crawford MD CHEMISTRY ORDERABLES Final Result Performing Organization Address [facility] Co de Phone Number [facility] CLIA# [id number] [address] [place] [address] documented in this encounter Visit Diagnoses Not on filedocumented in this encounter
--- OUTSIDE RECORDS SUMMARY | 2024-04-29 05:26 | XMS_ITS | Encounter Summary ---
Author Organization [facility] Address [address] [place] [address] Care Team Providers Care Intelligence Chief Name Role Phone Unavailable Primary Care Provider Unavailabl e Encounter Details Date Type Department Care Team (Late st Contact Info) Description 05/17/2015 Lab Requisition [facility] Laboratory Services [address] [place] [address] Magdi Crawford MD [address] [place] [address] Social History Tobacco Use Types Packs/Day Years Used Date Smoking Tobacco: Never Assessed Comments Unknown Sex and Gender Information Value Date Recorded Sex Assigned at Not on file Legal Sex Female 4:17 AM DISTRICT DIRECTOR Gender Identity Not on file Sexual Orientation Not on file documented as of this encounter Plan of Treatment Not on file documented as of this encounter Procedures Procedure Name Priority Date/Time Associated Diagnosis Comments CBC WITH DIFFERENTIAL Routine 05/17/2015 3:30 AM DISTRICT DIRECTOR TRIGLYCERIDE Routine 05/17/2015 3:30 AM DISTRICT DIRECTOR PREALBUMIN Routine 05/17/2015 3:30 AM DISTRICT DIRECTOR LIPID PANEL Routine 05/17/2015 3:30 AM DISTRICT DIRECTOR COMPREHENSIVE METABOLIC PANEL Routine 05/17/2015 3:30 AM DISTRICT DIRECTOR documented in this encounter Results * (ABNORMAL) TRIGLYCERIDE (05/17/2015 3:30 AM DISTRICT DIRECTOR) TRIGLYCERIDE 238(H) <150 mg/dL 05/17/2015 6:24 AM DISTRICT DIRECTOR [facility] Blood Collection / Unknown 05/17/2015 3:30 AM DISTRICT DIRECTOR 05/17/2015 5:20 AM DISTRICT DIRECTOR Narrative [facility] - 05/17/2015 6:24 AM DISTRICT DIRECTOR TRIGLYCERIDES ? mg/dL Normal ?< 150 Borderline High ?150 - 199 High ? 200 - 499 Very High ? >= 500 Based on AHA/NCEP Guidelines. Magdi Crawford MD CHEMISTRY ORDERABLES Final Result Performing Organization Address [facility] de Phone Number [facility] CLIA# [id number] [address] [place] [address] * PREALBUMIN (05/17/2015 3:30 AM DISTRICT DIRECTOR) PREALBUMIN 33 20 - 40 mg/dL 05/17/2015 6:24 AM [facility] Blood Collection / Unknown 05/17/2015 3:30 AM DISTRICT DIRECTOR 05/17/2015 5:20 AM DISTRICT DIRECTOR Magdi Crawford MD CHEMISTRY ORDERABLES Final Result Performing Organization Address [facility] de Phone Number [facility] CLIA# [id number] [address] [place] [phone] * (ABNORMAL) CBC WITH DIFFERENTIAL (05/17/2015 3:30 AM DISTRICT DIRECTOR) WBC 13.2(H) 4.8 - 10.8 K/uL 05/17/2015 5:51 AM [facility] RBC 3.44(L) 4.20 - 5.40 M/uL 05/17/2015 5:51 AM [facility] HEMOGLOBIN 9.1(L) 12.0 - 16.0 g/dL 05/17/2015 5:51 AM [facility] HEMATOCRIT 30.5(L) 36.0 - 46.0 % 05/17/2015 5:51 AM [facility] MCV 88.7 84.0 - 103.0 fL 05/17/2015 5:51 AM [facility] MCH 26.5(L) 27.0 - 34.0 pg 05/17/2015 5:51 AM [facility] MCHC 29.8(L) 30.0 - 35.0 g/dL 05/17/2015 5:51 AM [facility] RDW 17.6(H) 11.0 - 14.5 % 05/17/2015 5:51 AM [facility] RDW-STDEV 55.2(H) 37.0 - 54.0 fL 05/17/2015 5:51 AM [facility] PLATELETS 464(H) 140 - 440 K/uL 05/17/2015 5:51 AM [facility] MPV 9.9 8.9 - 12.8 fL 05/17/2015 5:51 AM [facility] NEUTROPHILS 58 42 - 75 % 05/17/2015 5:51 AM [facility] LYMPHOCYTES 31 24 - 44 % 05/17/2015 5:51 AM [facility] [employer] [facility] MONOCYTES 9 2 - 10 % 05/17/2015 5:51 AM [facility] EOSINOPHILS 2 0 - 7 % 05/17/2015 5:51 AM [facility] [employer] [facility] BASOPHILS 0 0 - 1 % 05/17/2015 5:51 AM [facility] NEUTROPHIL ABSOLUTE 7.58 2.00 - 8.00 K/uL 05/17/2015 5:51 AM [facility] LYMPHOCYTE ABSOLUTE 4.02(H) 1.20 - 4.00 K/uL 05/17/2015 5:51 AM [facility] MONOCYTE ABSOLUTE 1.19(H) 0.10 - 0.60 K/uL 05/17/2015 5:51 AM [facility] [employer] [facility] EOSINOPHIL ABSOLUTE 0.23 0.00 - 0.70 K/uL 05/17/2015 5:51 AM [facility] BASOPHILS ABSOLUTE 0.03 0.00 - 0.20 K/uL 05/17/2015 5:51 AM [facility] IMMATURE GRANULOCYTES 1 0 - 2 % 05/17/2015 5:51 AM [facility] IMMATURE GRANULOCYTES ABSOLUTE 0.14(H) 0.00 - 0.10 K/uL 05/17/2015 5:51 AM [facility] Blood Collection / Unknown 05/17/2015 3:30 AM DISTRICT DIRECTOR 05/17/2015 5:20 AM DISTRICT DIRECTOR us Magdi Crawford MD HEMATOLOGY ORDERABLES Final Result [facility] CLIA# [id number] [address] [place] [phone] * (ABNORMAL) LIPID PANEL (05/17/2015 3:30 AM DISTRICT DIRECTOR) CHOLESTEROL 139 <200 mg/dL 05/17/2015 6:24 AM [facility] TRIGLYCERIDE 238(H) <150 mg/dL 05/17/2015 6:24 AM [facility] HDL 26(L) 40 - 59 mg/dL 05/17/2015 6:24 AM [facility] LDL CALCULATED 65 <100 mg/dL 05/17/2015 6:24 AM [facility] NON-HDL CHOLESTEROL 113 <130 mg/dL 05/17/2015 6:24 AM [facility] Blood Collection / Unknown 05/17/2015 3:30 AM DISTRICT DIRECTOR 05/17/2015 5:20 AM DISTRICT DIRECTOR [facility] - 05/17/2015 6:24 AM DISTRICT DIRECTOR TOTAL CHOLESTEROL mg/dL ??Desirable ? <200 ??Borderline high ?200-239 ??High ?>=240 TRIGLYCERIDES mg/dL ??Normal ?<150 ??Borderline high ?150-199 ??High ? 200-499 ??Very high ? >=500 HDL CHOLESTEROL mg/dL ??Low ?<40 ??Normal ?40-59 ??Desirable ? >=60 LDL CHOLESTEROL mg/dL ??Optimal ? <100 ??Low risk ? 100-129 ??Borderline high ?130-159 ??High ? 160-189 ??Very high ? >=190 NON HDL CHOLESTEROL mg/dL ??Optimal ? <130 ??Near Optimal ? 130-159 ??Borderline High ?160-189 ??High ? 190-219 ??Very high ? >=220 Based on AHA/NCEP Guidelines us Magdi Crawford MD CHEMISTRY ORDERABLES Final Result Performing Organization Address [facility]/State/ZIP Co de Phone Number [facility] CLIA# [id number] [address] [place], [place] [address] * (ABNORMAL) COMPREHENSIVE METABOLIC PANEL (05/17/2015 3:30 AM DISTRICT DIRECTOR) SODIUM 138 136 - 145 mmol/L 05/17/2015 6:24 AM DISTRICT DIRECTOR [facility] [employer] [facility] POTASSIUM 4.4 3.5 - 5.1 mmol/L 05/17/2015 6:24 AM [facility] CHLORIDE 107 98 - 107 mmol/L 05/17/2015 6:24 AM [facility] CO2 22 21 - 32 mmol/L 05/17/2015 6:24 AM [facility] CALCIUM 8.1(L) 8.4 - 10.1 mg/dL 05/17/2015 6:24 AM [facility] BUN 18(H) 7 - 17 mg/dL 05/17/2015 6:24 AM [facility] CREATININE 0.54(L) 0.55 - 1.02 mg/dL 05/17/2015 6:24 AM [facility] GLUCOSE 76 74 - 106 mg/dL 05/17/2015 6:24 AM [facility] TOTAL PROTEIN 6.3(L) 6.4 - 8.2 g/dL 05/17/2015 6:24 AM [facility] ALBUMIN 2.4(L) 3.4 - 5.0 g/dL 05/17/2015 6:24 AM [facility] BILIRUBIN TOTAL 0.5 0.2 - 1.0 mg/dL 05/17/2015 6:24 AM [facility] ALKALINE PHOSPHATASE 173(H) 25 - 100 U/L 05/17/2015 6:24 AM [facility] AST 20 15 - 37 U/L 05/17/2015 6:24 AM [facility] ALT 24 13 - 61 U/L 05/17/2015 6:24 AM [facility] GFR >60 >=60 mL/min/1. 73 sq meter 05/17/2015 6:24 AM [facility] Comment: eGFR has not been validated [...] GFR, >60 >=60 mL/min/1. 73 sq meter 05/17/2015 6:24 AM DISTRICT DIRECTOR [facility] ANION GAP 9 8 - 16 mmol/L 05/17/2015 6:24 AM DISTRICT DIRECTOR [facility] Blood Collection / Unknown 05/17/2015 3:30 AM DISTRICT DIRECTOR 05/17/2015 5:20 AM DISTRICT DIRECTOR us Magdi Crawford MD CHEMISTRY ORDERABLES Final Result [facility] CLIA# [id number] [address] [place] [id number] documented in this encounter Visit Diagnoses Not on filedocumented in this encounter
--- OUTSIDE RECORDS SUMMARY | 2024-04-29 05:26 | XMS_ITS | Encounter Summary ---
Author Organization [facility] Address [address] [place] [address] Care Team Providers Care Manager Marketing Sales Name Role Phone Unavailable Primary Care Provider Unavailabl e Encounter Details Date Type Department Care Team (Late st Contact Info) Description 05/05/2015 Lab Requisition [facility] Laboratory Services [address] [place] [address] Magdi Crawford MD [address] [place] [address] Social History Tobacco Use Types Packs/Day Years Used Date Smoking Tobacco: Never Assessed Comments Unknown Sex and Gender Information Value Date Recorded Sex Assigned at Not on file Legal Sex Female 4:17 AM PERSONNEL INTERVIEWER Gender Identity Not on file Sexual Orientation Not on file documented as of this encounter Plan of Treatment Not on file documented as of this encounter Visit Diagnoses Not on filedocumented in this encounter
--- OUTSIDE RECORDS SUMMARY | 2024-04-29 05:26 | XMS_ITS | Encounter Summary ---
Author Organization [facility] Address [address] [place] [address] Care Team Providers Care Paper Sealer Name Role Phone Unavailable Primary Care Provider Unavailabl e Encounter Details Date Type Department Care Team (Late st Contact Info) Description 05/10/2015 Lab Requisition [facility] Laboratory Services [facility] [address] [place] [address] Magdi Crawford MD [address] [place] [address] Social History Tobacco Use Types Packs/Day Years Used Date Smoking Tobacco: Never Assessed Comments Unknown Sex and Gender Information Value Date Recorded Sex Assigned at Not on file Legal Sex Female 4:17 AM PROGRAM RESEARCH SPECIALIST Gender Identity Not on file Sexual Orientation Not on file documented as of this encounter Plan of Treatment Scheduled Orders Name Type Priority Associated Diagnoses Orde r Schedule COMPREHENSIVE METABOLIC PANEL Lab Routine Ordered: 05/10/2015 PHOSPHORUS Lab Routine Ordered: 05/10 MAGNESIUM LEVEL Lab Routine Ordered: 05/10/2015 TRIGLYCERIDE Lab Routine Ordered: documented as of this encounter Procedures Procedure Name Priority Date/Time Associated Diagnosis Comments CBC WITH DIFFERENTIAL Routine 05/10/2015 4:35 AM PROGRAM RESEARCH SPECIALIST documented in this encounter Results * (ABNORMAL) CBC WITH DIFFERENTIAL (05/10/2015 4:35 AM PROGRAM RESEARCH SPECIALIST) Pathologist [facility] WBC 10.9(H) 4.8 - 10.8 K/uL 05/10/2015 6:33 AM PROGRAM RESEARCH SPECIALIST [facility] RBC 2.80(L) 4.20 - 5.40 M/uL 05/10/2015 6:33 AM [facility] HEMOGLOBIN 7.7(L) 12.0 - 16.0 g/dL 05/10/2015 6:33 AM [facility] HEMATOCRIT 28.6(L) 36.0 - 46.0 % 05/10/2015 6:33 AM [facility] MCV 102.1 84.0 - 103.0 fL 05/10/2015 6:33 AM [facility] MCH 27.5 27.0 - 34.0 pg 05/10/2015 6:33 AM [facility] MCHC 26.9(L) 30.0 - 35.0 g/dL 05/10/2015 6:33 AM [facility] RDW 18.6(H) 11.0 - 14.5 % 05/10/2015 6:33 AM [facility] RDW-STDEV 68.5(H) 37.0 - 54.0 fL 05/10/2015 6:33 AM [facility] PLATELETS 460(H) 140 - 440 K/uL 05/10/2015 6:33 AM [facility] MPV 11.3 8.9 - 12.8 fL 05/10/2015 6:33 AM [facility] NEUTROPHILS 61 42 - 75 % 05/10/2015 6:33 AM [facility] LYMPHOCYTES 26 24 - 44 % 05/10/2015 6:33 AM [facility] MONOCYTES 6 2 - 10 % 05/10/2015 6:33 AM [facility] EOSINOPHILS 4 0 - 7 % 05/10/2015 6:33 AM [facility] BASOPHILS 0 0 - 1 % 05/10/2015 6:33 AM [facility] NEUTROPHIL ABSOLUTE 6.62 2.00 - 8.00 K/uL 05/10/2015 6:33 AM [facility] LYMPHOCYTE ABSOLUTE 2.79 1.20 - 4.00 K/uL 05/10/2015 6:33 AM [facility] MONOCYTE ABSOLUTE 0.69(H) 0.10 - 0.60 K/uL 05/10/2015 6:33 AM [facility] EOSINOPHIL ABSOLUTE 0.38 0.00 - 0.70 K/uL 05/10/2015 6:33 AM [facility] BASOPHILS ABSOLUTE 0.02 0.00 - 0.20 K/uL 05/10/2015 6:33 AM [facility] IMMATURE GRANULOCYTES 4(H) 0 - 2 % 05/10/2015 6:33 AM [facility] IMMATURE GRANULOCYTES ABSOLUTE 0.42(H) 0.00 - 0.10 K/uL 05/10/2015 6:33 AM [facility] Blood Collection / Unknown 05/10/2015 4:35 AM PROGRAM RESEARCH SPECIALIST 05/10/2015 5:50 AM [facility] - 05/10/2015 6:33 AM PROGRAM RESEARCH SPECIALIST Smear reviewed. No WBC or PLT morphology abnormality noted. RBC Morphology Abnormal: ??1+ Polychromasia us Magdi Crawford MD HEMATOLOGY ORDERABLES Final Result [facility] CLIA# [id number] [address] [place] [address] documented in this encounter Visit Diagnoses Not on filedocumented in this encounter
--- OUTSIDE RECORDS SUMMARY | 2024-04-29 05:26 | XMS_ITS ---
Author Organization Unknown [facility] No information ASSESSMENT No information CHIEF COMPLAINT No information Medications Date Medication Dosage DosageUnit StartDate StopDate StopReason Active DoseQuantity DoseUnit Dispense DispenseUnit Refills NdcCode DrugCode PharmacyId IsPrescription MappedMedication Srcstatus 08/14 00:00 :00 Atorvastati n Calcium 40 mg Tablet 1 90 Tablet 1 34793997 008 Start 08/14 00:00 :00 Atorvastati n Calcium 40 mg Tablet 0 90 Tablet 1 [id number] 008 Stop 06/14 00:00 :00 Famotidine 40 MG Tablet 1 60 Tablet 12 0 [id number] 960 Start 06/14 00:00 :00 Famotidine 40 MG Tablet 0 60 Tablet 12 0 [id number] 960 Stop 06/19 00:00 :00 Ferrous Gluconate 324 (38 Fe) MG Tablet 1 90 Tablet 2 [id number] 801 Start 06/19 00:00 :00 Ferrous Gluconate 324 (38 Fe) MG Tablet 0 90 Tablet 2 [id number] 801 Stop 07/30 00:00 :00 HYDROcodone -Acetaminop hen 10-325 MG Tablet 07/31/2023 00:00:00 4 00:00:00 0 30 0 [id number] 510 P Refill 07/02 00:00 :00 HYDROcodone -Acetaminop hen 10-325 MG Tablet 07/04/2023 00:00:00 00:00:00 0 30 0 [id number] 510 P Refill 05/30 00:00 :00 HYDROcodone -Acetaminop hen 10-325 MG Tablet 06/04/2023 00:00:00 4 00:00:00 0 30 0 [id number] 510 P Refill 04/30 00:00 :00 HYDROcodone -Acetaminop hen 10-325 MG Tablet 05/01/2023 00:00:00 00:00:00 0 30 0 [id number] 510 P Refill 04/06 00:00 :00 HYDROcodone -Acetaminop hen 10-325 MG Tablet 04/06/2023 00:00:00 00:00:00 0 30 0 [id number] 510 P Refill 01/30 00:00 :00 Levothyroxi ne Sodium 75 MCG Tablet 1 90 Tablet 3 [id number] 703 Start 01/30 00:00 :00 Levothyroxi ne Sodium 75 mcg Tablet 0 90 3 00 [id number] 243 Stop 06/18 00:00 :00 Lyrica 225 MG Capsule 06/21/2023 00:00:00 1 60 Capsule 2 [id number] 968 P Refill 06/14 00:00 :00 Mirtazapine 30 MG Tablet 1 90 3 [id number] 070 801 Start 06/14 00:00 :00 Mirtazapine 30 MG Tablet 0 90 3 [id number] 070 801 Stop 01/30 00:00 :00 Pantoprazol e Sodium 40 MG Tablet Delayed Release 1 180 3 [id number] 743 Start 01/30 00:00 :00 Pantoprazol e Sodium 40 MG Tablet Delayed Release 0 180 3 [id number] 743 Stop 01/30 00:00 :00 rOPINIRole HCl 0.5 MG Tablet 1 180 Tablet 3 [id number] 950 Start 01/30 00:00 :00 rOPINIRole HCl 0 180 Tablet 4 [id number] 950 Stop 08/16 00:00 :00 Xtampza ER 18 mg Capsule ER 12 Hour Abuse-Deter rent 08/17/2023 00:00:00 1 60 Capsule 0 [id number] 010 Start 08/16 00:00 :00 Xtampza ER 18 mg Capsule ER 12 Hour [employer] rent 0 60 Capsule 0 [id number] 010 Stop 08/14 00:00 :00 Xtampza ER 18 mg Capsule ER 12 Hour [employer] rent 07/19/2023 00:00:00 1 60 Capsule 0 [id number] 010 P Refill 07/17 00:00 :00 Xtampza ER 18 mg Capsule ER 12 Hour [employer] rent 07/19/2023 00:00:00 1 60 Capsule 0 [id number] 010 P Refill 06/18 00:00 :00 Xtampza ER 18 mg Capsule ER 12 Hour [employer] 06/21/2023 00:00:00 1 60 Capsule 0 [id number] 010 P Refill 05/22 00:00 :00 Xtampza ER 18 mg Capsule ER 12 Hour [employer] rent 05/23/2023 00:00:00 1 60 Capsule 0 [id number] 010 P Refill 04/17 00:00 :00 Xtampza ER 18 mg Capsule ER 12 Hour [employer] 04/17/2023 00:00:00 1 60 Capsule 0 [id number] 010 Start 04/17 00:00 :00 Xtampza ER 18 mg Capsule ER 12 Hour [employer] 0 60 Capsule 0 [id number] 010 Stop 05/29 00:00 :00 [employer] 53298-5 [id number] UNIT Capsule Delayed Release Particles 1 180 6 [id number] 1 401 Start 05/29 00:00 :00 [employer] 21736-6 69715 UNIT Capsule Delayed Release Particles 0 180 6 [id number] 1 401 Stop OBJECTIVE DATA No information PHYSICAL EXAMINATION No information TREATMENT PLAN No information PROBLEMS No information RESULTS No information REVIEW OF SYSTEMS No information SUBJECTIVE DATA No information VITAL SIGNS No information
--- OUTSIDE RECORDS SUMMARY | 2024-04-29 05:27 | XMS_ITS | Encounter Summary ---
Author Organization [facility] Address [address] [place] [address] Care Team Providers Care Transplant Case Manager Name Role Phone Unavailable Primary Care Provider Unavailabl e Encounter Details Date Type Department Care Team (Late st Contact Info) Description 04/27/2015 Lab Requisition [facility] Laboratory Services [address] [place] [address] Magdi Crawford MD [address] [place] [address] Social History Tobacco Use Types Packs/Day Years Used Date Smoking Tobacco: Never Assessed Comments Unknown Sex and Gender Information Value Date Recorded Sex Assigned at Not on file Legal Sex 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 Gender Identity Not on file Sexual Orientation Not on file documented as of this encounter Plan of Treatment Not on file documented as of this encounter Procedures Procedure Name Priority Date/Time Associated Diagnosis Comments VANCOMYCIN LEVEL TROUGH Routine 04/27/2015 2:15 PM SOLDER DEPOSIT OPERATOR documented in this encounter Results * (ABNORMAL) VANCOMYCIN LEVEL TROUGH (04/27/2015 2:15 PM SOLDER DEPOSIT OPERATOR) VANCOMYCIN, TROUGH 7.6(L) 10.0 - 20.0 ug/mL 04/27/2015 3:43 PM SOLDER DEPOSIT OPERATOR [facility] [employer] [facility] Blood Venipuncture - L ab Collect / Unknown 04/27/2015 2:15 PM SOLDER DEPOSIT OPERATOR 04/27/2015 3:10 PM SOLDER DEPOSIT OPERATOR us Magdi Crawford MD CHEMISTRY ORDERABLES Final Result [facility]# [id number] [address] [place] [address] documented in this encounter Visit Diagnoses Not on filedocumented in this encounter
--- OUTSIDE RECORDS SUMMARY | 2024-04-29 05:27 | XMS_ITS | Encounter Summary ---
Author Organization [employer] [facility] Address [address] [place] [address] Care Team Providers Care Shear Operator Helper Name Role Phone Unavailable Primary Care Provider Unavailabl e Encounter Details Date Type Department Care Team (Latest Contact Info) Description 01/08/2002 Outpatient Historical [facility] Gurwinder Felipe Jr., MD [address] [place] [address] [phone] CHEST PAIN NOS (Primary Dx); SHORTNESS OF BREATH; HYPERTENSION NOS Social History Tobacco Use Types Packs/Day Years Used Date Smoking Tobacco: Never Assessed Comments Unknown Sex and Gender Information Value Date Recorded Sex Assigned at Not on file Legal Sex Female 4:17 AM VENDOR MANAGEMENT CONSULTANT Gender Identity Not on file Sexual Orientation Not on file documented as of this encounter Plan of Treatment Not on file documented as of this encounter Visit Diagnoses Diagnosis Chest pain, unspecified- Primary Shortness of breath Unspecified essential hypertension documented in this encounter
--- OUTSIDE RECORDS SUMMARY | 2024-04-29 05:27 | XMS_ITS | Encounter Summary ---
Author Organization [employer] [facility] Address [address] [place] [address] Care Team Providers Care Freelance Writer Name Role Phone Unavailable Primary Care Provider Unavailabl e Encounter Details Date Type Department Care Team (Late st Contact Info) Description 04/29/2015 Lab Requisition [facility] Laboratory Services E [place] [address] [place] [address] Magdi Crawford MD [address] [place] [address] Social History Tobacco Use Types Packs/Day Years Used Date Smoking Tobacco: Never Assessed Comments Unknown Sex and Gender Information Value Date Recorded Sex Assigned at Not on file Legal Sex Female 4:17 AM SPECIAL EDUCATION MATH TEACHER Gender Identity Not on file Sexual Orientation Not on file documented as of this encounter Plan of Treatment Not on file documented as of this encounter Procedures Procedure Name Priority Date/Time Associated Diagnosis Comments CBC WITH DIFFERENTIAL Routine 04/29/2015 4:00 AM SPECIAL EDUCATION MATH TEACHER PHOSPHORUS Routine 04/29/2015 4:00 AM SPECIAL EDUCATION MATH TEACHER MAGNESIUM LEVEL Routine 04/29/2015 4:00 AM SPECIAL EDUCATION MATH TEACHER COMPREHENSIVE METABOLIC PANEL Routine 04/29/2015 4:00 AM SPECIAL EDUCATION MATH TEACHER documented in this encounter Results * (ABNORMAL) PHOSPHORUS (04/29/2015 4:00 AM SPECIAL EDUCATION MATH TEACHER) PHOSPHORUS 2.2(L) 2.5 - 4.9 mg/dL 04/29/2015 6:16 AM SPECIAL EDUCATION MATH TEACHER [facility] Blood Collection / Unknown 04/29/2015 4:00 AM SPECIAL EDUCATION MATH TEACHER 04/29/2015 5:24 AM SPECIAL EDUCATION MATH TEACHER us Magdi Crawford MD CHEMISTRY ORDERABLES Final Result Performing Organization Address [facility] Co de Phone Number [facility] CLIA# [id number] [address] [place] [address] * MAGNESIUM LEVEL (04/29/2015 4:00 AM SPECIAL EDUCATION MATH TEACHER) Pathologist [facility] MAGNESIUM 1.8 1.8 - 2.4 mg/dL 04/29/2015 6:16 AM [facility] Blood Collection / Unknown 04/29/2015 4:00 AM SPECIAL EDUCATION MATH TEACHER 04/29/2015 5:24 AM SPECIAL EDUCATION MATH TEACHER us Magdi Crawford MD CHEMISTRY ORDERABLES Final Result Performing Organization Address City/[facility] Co de Phone Number [facility] CLIA# [id number] [address] [place] [address] * (ABNORMAL) CBC WITH DIFFERENTIAL (04/29/2015 4:00 AM SPECIAL EDUCATION MATH TEACHER) Pathologist [facility] WBC 8.9 4.8 - 10.8 K/uL 04/29/2015 5:45 AM [facility] RBC 2.53(L) 4.20 - 5.40 M/uL 04/29/2015 5:45 AM [facility] HEMOGLOBIN 7.3(L) 12.0 - 16.0 g/dL 04/29/2015 5:45 AM [facility] HEMATOCRIT 23.1(L) 36.0 - 46.0 % 04/29/2015 5:45 AM [facility] MCV 91.3 84.0 - 103.0 fL 04/29/2015 5:45 AM [facility] MCH 28.9 27.0 - 34.0 pg 04/29/2015 5:45 AM [facility] MCHC 31.6 30.0 - 35.0 g/dL 04/29/2015 5:45 AM [facility] RDW 16.4(H) 11.0 - 14.5 % 04/29/2015 5:45 AM [facility] RDW-STDEV 53.0 37.0 - 54.0 fL 04/29/2015 5:45 AM [facility] PLATELETS 640(H) 140 - 440 K/uL 04/29/2015 5:45 AM [facility] MPV 9.6 8.9 - 12.8 fL 04/29/2015 5:45 AM [facility] NEUTROPHILS 71 42 - 75 % 04/29/2015 5:45 AM [facility] LYMPHOCYTES 11(L) 24 - 44 % 04/29/2015 5:45 AM [facility] MONOCYTES 12(H) 2 - 10 % 04/29/2015 5:45 AM [facility] EOSINOPHILS 4 0 - 7 % 04/29/2015 5:45 AM [facility] BASOPHILS 1 0 - 1 % 04/29/2015 5:45 AM [facility] NEUTROPHIL ABSOLUTE 6.30 2.00 - 8.00 K/uL 04/29/2015 5:45 AM [facility] LYMPHOCYTE ABSOLUTE 1.00(L) 1.20 - 4.00 K/uL 04/29/2015 5:45 AM [facility] MONOCYTE ABSOLUTE 1.05(H) 0.10 - 0.60 K/uL 04/29/2015 5:45 AM [facility] EOSINOPHIL ABSOLUTE 0.38 0.00 - 0.70 K/uL 04/29/2015 5:45 AM [facility] BASOPHILS ABSOLUTE 0.05 0.00 - 0.20 K/uL 04/29/2015 5:45 AM [facility] IMMATURE GRANULOCYTES 1 0 - 2 % 04/29/2015 5:45 AM [facility] IMMATURE GRANULOCYTES ABSOLUTE 0.11(H) 0.00 - 0.10 K/uL 04/29/2015 5:45 AM [facility] Blood Collection / Unknown 04/29/2015 4:00 AM SPECIAL EDUCATION MATH TEACHER 04/29/2015 5:24 AM SPECIAL EDUCATION MATH TEACHER us Magdi Crawford MD HEMATOLOGY ORDERABLES Final Result [facility] CLIA# [id number] [facility] [place] [address] * (ABNORMAL) COMPREHENSIVE METABOLIC PANEL (04/29/2015 4:00 AM SPECIAL EDUCATION MATH TEACHER) SODIUM 140 136 - 145 mmol/L 04/29/2015 6:16 AM [facility] POTASSIUM 3.2(L) 3.5 - 5.1 mmol/L 04/29/2015 6:16 AM [facility] CHLORIDE 105 98 - 107 mmol/L 04/29/2015 6:16 AM [facility] CO2 27 21 - 32 mmol/L 04/29/2015 6:16 AM [facility] CALCIUM 7.5(L) 8.4 - 10.1 mg/dL 04/29/2015 6:16 AM [facility] BUN 16 7 - 17 mg/dL 04/29/2015 6:16 AM [facility] CREATININE 0.46(L) 0.55 - 1.02 mg/dL 04/29/2015 6:16 AM [facility] GLUCOSE 127(H) 74 - 106 mg/dL 04/29/2015 6:16 AM [facility] TOTAL PROTEIN 4.9(L) 6.4 - 8.2 g/dL 04/29/2015 6:16 AM [facility] ALBUMIN 1.4(L) 3.4 - 5.0 g/dL 04/29/2015 6:16 AM [facility] BILIRUBIN TOTAL 0.3 0.2 - 1.0 mg/dL 04/29/2015 6:16 AM [facility] ALKALINE PHOSPHATASE 64 25 - 100 U/L 04/29/2015 6:16 AM [facility] AST 10(L) 15 - 37 U/L 04/29/2015 6:16 AM [facility] ALT 8(L) 13 - 61 U/L 04/29/2015 6:16 AM [facility] GFR >60 >=60 mL/min/1. 73 sq meter 04/29/2015 6:16 AM [facility] Comment: eGFR has not been [...] GFR, >60 >=60 mL/min/1. 73 sq meter 04/29/2015 6:16 AM [facility] ANION GAP 8 8 - 16 mmol/L 04/29/2015 6:16 AM [facility] Blood Collection / Unknown 04/29/2015 4:00 AM SPECIAL EDUCATION MATH TEACHER 04/29/2015 5:24 AM [facility] us Magdi Crawford MD CHEMISTRY ORDERABLES Final Result [facility] CLIA# [id number] [address] [place] [address] documented in this encounter Visit Diagnoses Not on filedocumented in this encounter
--- OUTSIDE RECORDS SUMMARY | 2024-04-29 05:27 | XMS_ITS | Encounter Summary ---
Author Organization [employer] [facility] Address [address] [place] [address] Care Team Providers Care Audio/Video Engineer Name Role Phone Unavailable Primary Care Provider Unavailabl e Encounter Details Date Type Department Care Team (Latest Contact Info) Description 01/12/2000 Outpatient Historical [facility] Gurwinder Felipe Jr., MD [address] [place] [phone] Vaccine for viral hepatitis (Primary Dx) Social History Tobacco Use Types Packs/Day Years Used Date Smoking Tobacco: Never Assessed Comments Unknown Sex and Gender Information Value Date Recorded Sex Assigned at Not on file Legal Sex Female 4:17 AM CHIEF CLINICAL OFFICER Gender Identity Not on file Sexual Orientation Not on file documented as of this encounter Plan of Treatment Not on file documented as of this encounter Visit Diagnoses Diagnosis Vaccine for viral hepatitis- Primary Need for prophylactic vaccination and inoculation against viral hepatitis documented in this encounter
--- OUTSIDE RECORDS SUMMARY | 2024-04-29 05:27 | XMS_ITS | Encounter Summary ---
Author Organization [facility] Address [address] [place] [address] Care Team Providers Care Rig Manager Name Role Phone Unavailable Primary Care Provider Unavailabl e Encounter Details Date Type Department Care Team (Late st Contact Info) Description 04/24/2015 Lab Requisition [facility] Laboratory Services E [place] [address] [place] [address] Magdi Crawford MD [address] [place] [address] Social History Tobacco Use Types Packs/Day Years Used Date Smoking Tobacco: Never Assessed Comments Unknown Sex and Gender Information Value Date Recorded Sex Assigned at Not on file Legal Sex Female 4:17 AM DESIGNER Gender Identity Not on file Sexual Orientation Not on file documented as of this encounter Plan of Treatment Not on file documented as of this encounter Procedures Procedure Name Priority Date/Time Associated Diagnosis Comments URINALYSIS WITH REFLEX CULTURE Routine 04/24/2015 3:00 PM DESIGNER URINE CULTURE Routine 04/24/2015 3:00 PM DESIGNER documented in this encounter Results * (ABNORMAL) URINE CULTURE (04/24/2015 3:00 PM DESIGNER) CULTURE >= 100,000 cfu/mL Anjana albicans(A) 04/29/2015 8:07 AM DESIGNER [facility] Urine URINE SPECIMEN OBTAINED BY CLEAN CATCH PROCEDURE / Unknown Collection / Unknown 04/24/2015 3:00 PM DESIGNER 04/24/2015 5:01 PM DESIGNER Narrative Organism Antibiotic Method Susceptibility Anjana albicans FLUCONAZOLE <=1.0: Susceptible us Magdi Crawford MD MICROBIOLOGY - GENERAL JONATHAN RAI Final Result [facility] CLIA# [id number] [address] [place] [address] * (ABNORMAL) URINALYSIS WITH REFLEX CULTURE (04/24/2015 3:00 PM DESIGNER) COLOR UA Yellow Pale to dark yellow 04/24/2015 5:21 PM [facility] CLARITY UA Slightly Cloudy(A) Clear 04/24/2015 5:21 PM [facility] SPECIFIC GRAVITY UA 1.013 1.003 - 1.035 04/24/2015 5:21 PM [facility] PH UA 6.0 5.0 - 8.0 04/24/2015 5:21 PM [facility] LEUKOCYTE ESTERASE UA Trace(A) Negative 04/24/2015 5:21 PM [facility] NITRITE UA Negative Negative 04/24/2015 5:21 PM [facility] PROTEIN UA Negative Negative 04/24/2015 5:21 PM [facility] GLUCOSE UA 3+(A) Negative 04/24/2015 5:21 PM [facility] KETONES UA Negative Negative 04/24/2015 5:21 PM [facility] UROBILINOGEN UA <2.0 <2.0 mg/dL 04/24/2015 5:21 PM [facility] BILIRUBIN UA Negative Negative 04/24/2015 5:21 PM [facility] BLOOD UA Negative Negative 04/24/2015 5:21 PM [facility] WBC UA 0-2 0 - 2 /hpf 04/24/2015 5:21 PM [facility] RBC UA 3-5(A) 0 - 2 /hpf 04/24/2015 5:21 PM [facility] BACTERIA UA 1+(A) Negative /hpf 04/24/2015 5:21 PM DESIGNER [facility] EPITHELIAL CELLS, URINE 0-5 0 - 5 /hpf 04/24/2015 5:21 PM [facility] YEAST, BUDDING Present(A) Absent 04/24/2015 5:21 PM [facility] Urine Collection / Unknown 04/24/2015 3:00 PM DESIGNER 04/24/2015 5:01 PM DESIGNER Narrative [facility] - 04/24/2015 5:21 PM DESIGNER Based on results, a urine culture has been reflexed. us Magdi Crawford MD URINE ORDERABLES Final Resu lt [facility] CLIA# [id number] [address] [place] [address] documented in this encounter Visit Diagnoses Not on filedocumented in this encounter
--- OUTSIDE RECORDS SUMMARY | 2024-04-29 05:27 | XMS_ITS | Encounter Summary ---
Author Organization [employer] [facility] Address [address] [place] [address] Care Team Providers Care Underliner Name Role Phone Unavailable Primary Care Provider Unavailabl e Encounter Details Date Type Department Care Team (Late st Contact Info) Description 02/26/2002 Outpatient Historical [facility] Matteo Inman, Gurwinder Mora MD [address] [place] [address] Social History Tobacco Use Types Packs/Day Years Used Date Smoking Tobacco: Never Assessed Comments Unknown Sex and Gender Information Value Date Recorded Sex Assigned at Not on file Legal Sex Female 4:17 AM MARKETING/SALES PERSON Gender Identity Not on file Sexual Orientation Not on file documented as of this encounter Plan of Treatment Not on file documented as of this encounter Visit Diagnoses Not on filedocumented in this encounter
--- OUTSIDE RECORDS SUMMARY | 2024-04-29 05:27 | XMS_ITS | Encounter Summary ---
Author Organization [facility] Address [address] [place] [address] Care Team Providers Care Palliative Care Nurse Name Role Phone Unavailable Primary Care Provider Unavailabl e Encounter Details Date Type Department Care Team (Latest Contact Info) Description 01/28/2002 Outpatient Historical [facility]3] Cardiology- [place] [address] [place] [address] Jeramie Cartagena MD [address] [facility] [address] [place] [address] ANGINA PECTORIS NEC/NOS (Primary Dx); Benign hypertension Social History Tobacco Use Types Packs/Day Years Used Date Smoking Tobacco: Never Assessed Comments Unknown Sex and Gender Information Value Date Recorded Sex Assigned at Not on file Legal Sex Female 4:17 AM SEISMOGRAPH OBSERVER Gender Identity Not on file Sexual Orientation Not on file documented as of this encounter Plan of Treatment Not on file documented as of this encounter Visit Diagnoses Diagnosis Other and unspecified angina pectoris- Primary Benign hypertension Essential hypertension, benign documented in this encounter
--- OUTSIDE RECORDS SUMMARY | 2024-04-29 05:27 | XMS_ITS | Encounter Summary ---
Author Organization [employer] [facility] Address [address] [place] [address] Care Team Providers Care Field Artillery Cannoneer Name Role Phone Unavailable Primary Care Provider Unavailabl e Encounter Details Date Type Department Care Team (Latest Contact Info) Description 01/15/2002 Outpatient Historical [facility] Gurwinder Felipe Jr., MD [address] [place] [phone] HYPERTENSION NOS (Primary Dx); FOLLOW-UP EXAM NOS Social History Tobacco Use Types Packs/Day Years Used Date Smoking Tobacco: Never Assessed Comments Unknown Sex and Gender Information Value Date Recorded Sex Assigned at Not on file Legal Sex Female 4:17 AM SWEET DOUGH MIXER Gender Identity Not on file Sexual Orientation Not on file documented as of this encounter Plan of Treatment Not on file documented as of this encounter Visit Diagnoses Diagnosis Unspecified essential hypertension- Primary Unspecified follow-up examination documented in this encounter
--- OUTSIDE RECORDS SUMMARY | 2024-04-29 05:27 | XMS_ITS | Encounter Summary ---
Author Organization [employer] [facility] Address [address] [place] [address] Care Team Providers Care Ash Kier Boiler Name Role Phone Unavailable Primary Care Provider Unavailabl e Encounter Details Date Type Department Care Team (Latest Contact Info) Description 05/20/2001 Outpatient Historical [facility] Gurwinder Felipe Jr., MD [address] [place] [phone] OSTEOARTHROS NOS-UNSPEC (Primary Dx); SKIN DISORDERS NEC; Benign jos skin leg Social History Tobacco Use Types Packs/Day Years Used Date Smoking Tobacco: Never Assessed Comments Unknown Sex and Gender Information Value Date Recorded Sex Assigned at Not on file Legal Sex Female 4:17 AM DIRECTOR OF STUDENT AID Gender Identity Not on file Sexual Orientation Not on file documented as of this encounter Plan of Treatment Not on file documented as of this encounter Visit Diagnoses Diagnosis Osteoarthrosis, unspecified whether generalized or localized, unspecified site- Primary Other specified disorder of skin Benign jos skin leg Benign neoplasm of skin of lower limb, including hip documented in this encounter
--- OUTSIDE RECORDS SUMMARY | 2024-04-29 05:27 | XMS_ITS | Encounter Summary ---
Author Organization [email or web address] Address [address] [place] [address] Care Team Providers Care Director Emergency Services Name Role Phone Unavailable Primary Care Provider Unavailabl e Encounter Details Date Type Department Care Team (Late st Contact Info) Description 05/01/2015 Lab Requisition [facility] Laboratory Services [address] [place] [address] [place] [address] Magdi Crawford MD [address] [place] [address] Social History Tobacco Use Types Packs/Day Years Used Date Smoking Tobacco: Never Assessed Comments Unknown Sex and Gender Information Value Date Recorded Sex Assigned at Not on file Legal Sex Female 4:17 AM DEPUTY K 9 Gender Identity Not on file Sexual Orientation Not on file documented as of this encounter Plan of Treatment Not on file documented as of this encounter Procedures Procedure Name Priority Date/Time Associated Diagnosis Comments URINALYSIS W/REFLEX MICROSCOPIC Routine 05/01/2015 1:40 PM DEPUTY K 9 URINE CULTURE Routine 05/01/2015 1:40 PM DEPUTY K 9 documented in this encounter Results * URINE CULTURE (05/01/2015 1:40 PM DEPUTY K 9) CULTURE Polymicrobial growth consistent with normal urethral zaida and/or colonizing bacteria 05/02/2015 2:39 PM DEPUTY K 9 [facility] [employer] [facility] Urine URINE SPECIMEN OBTAINED BY CLEAN CATCH PROCEDURE / Unknown Collection / Unknown 05/01/2015 1:40 PM DEPUTY K 9 05/01/2015 3:32 PM DEPUTY K 9 us Magdi Crawford MD MICROBIOLOGY - GENERAL ORDE RABLES Final Result Performing Organization Address City/[facility]/ZIP Co de Phone Number [facility] CLIA# [id number] [address] [place] [address] * URINALYSIS (05/01/2015 1:40 PM DEPUTY K 9) COLOR UA Yellow Pale to dark yellow 05/01/2015 3:45 PM [facility] CLARITY UA Clear Clear 05/01/2015 3:45 PM [facility] SPECIFIC GRAVITY UA 1.006 1.003 - 1.035 05/01/2015 3:45 PM [facility] PH UA 7.0 5.0 - 8.0 05/01/2015 3:45 PM [facility] LEUKOCYTE ESTERASE UA Negative Negative 05/01/2015 3:45 PM [facility] NITRITE UA Negative Negative 05/01/2015 3:45 PM [facility] PROTEIN UA Negative Negative 05/01/2015 3:45 PM [facility] GLUCOSE UA Negative Negative 05/01/2015 3:45 PM [facility] KETONES UA Negative Negative 05/01/2015 3:45 PM [facility] UROBILINOGEN UA <2.0 <2.0 mg/dL 05/01/2015 3:45 PM [facility] BILIRUBIN UA Negative Negative 05/01/2015 3:45 PM [facility] BLOOD UA Negative Negative 05/01/2015 3:45 PM [facility] Urine, clean catch URINE SPECIMEN OBTAINED BY CLEAN CATCH PROCEDURE / Unknown Collection / Unknown 05/01/2015 1:40 PM DEPUTY K 9 05/01/2015 3:32 PM DEPUTY K 9 us Magdi Crawford MD URINE ORDERABLES Final Resu lt [facility] CLIA# [id number] [facility] [place] [address] documented in this encounter Visit Diagnoses Not on filedocumented in this encounter
--- OUTSIDE RECORDS SUMMARY | 2024-04-29 05:27 | XMS_ITS | Encounter Summary ---
Author Organization [email or web address] [facility] Address [address] [place] [address] Care Team Providers Care Auricular Therapist Name Role Phone Unavailable Primary Care Provider Unavailabl e Encounter Details Date Type Department Care Team (Late st Contact Info) Description 04/24/2015 Lab Requisition [facility] Laboratory Services [address] [place] [address] [place] [phone] Timmy Kellogg MD [address] [place] [address] Social History Tobacco Use Types Packs/Day Years Used Date Smoking Tobacco: Never Assessed Comments Unknown Sex and Gender Information Value Date Recorded Sex Assigned at Not on file Legal Sex Female 4:17 AM FOREIGN LEGAL CONSULTANT Gender Identity Not on file Sexual Orientation Not on file documented as of this encounter Plan of Treatment Not on file documented as of this encounter Procedures Procedure Name Priority Date/Time Associated Diagnosis Comments CBC WITH DIFFERENTIAL Routine 04/24/2015 3:05 AM FOREIGN LEGAL CONSULTANT BASIC METABOLIC PANEL Routine 04/24/2015 3:05 AM FOREIGN LEGAL CONSULTANT documented in this encounter Results * (ABNORMAL) BASIC METABOLIC PANEL (04/24/2015 3:05 AM FOREIGN LEGAL CONSULTANT) SODIUM 141 136 - 145 mmol/L 04/24/2015 5:40 AM FOREIGN LEGAL CONSULTANT [facility] POTASSIUM 3.6 3.5 - 5.1 mmol/L 04/24/2015 5:40 AM FOREIGN LEGAL CONSULTANT [facility] CHLORIDE 106 98 - 107 mmol/L 04/24/2015 5:40 AM FOREIGN LEGAL CONSULTANT [facility] CO2 28 21 - 32 mmol/L 04/24/2015 5:40 AM [facility] CALCIUM 7.3(L) 8.4 - 10.1 mg/dL 04/24/2015 5:40 AM [facility] BUN 12 7 - 17 mg/dL 04/24/2015 5:40 AM [facility] CREATININE 0.32(L) 0.55 - 1.02 mg/dL 04/24/2015 5:40 AM [facility] GLUCOSE 145(H) 74 - 106 mg/dL 04/24/2015 5:40 AM [facility] GFR >60 >=60 mL/min/1. 73 sq meter 04/24/2015 5:40 AM [facility] Comment: eGFR has not been validated for [...] GFR, >60 >=60 mL/min/1. 73 sq meter 04/24/2015 5:40 AM [facility] ANION GAP 7(L) 8 - 16 mmol/L 04/24/2015 5:40 AM [facility] Blood Collection / Unknown 04/24/2015 3:05 AM FOREIGN LEGAL CONSULTANT 04/24/2015 5:03 AM [facility] us Timmy Kellogg MD CHEMISTRY ORDERABLES Final Res ult [facility] CLIA# [id number] [address] [place] [address] * (ABNORMAL) CBC WITH DIFFERENTIAL (04/24/2015 3:05 AM [facility]) WBC 19.3(H) 4.8 - 10.8 K/uL 04/24/2015 5:29 AM [facility] RBC 2.72(L) 4.20 - 5.40 M/uL 04/24/2015 5:29 AM [facility] HEMOGLOBIN 8.1(L) 12.0 - 16.0 g/dL 04/24/2015 5:29 AM [facility] HEMATOCRIT 25.1(L) 36.0 - 46.0 % 04/24/2015 5:29 AM [facility] MCV 92.3 84.0 - 103.0 fL 04/24/2015 5:29 AM [facility] MCH 29.8 27.0 - 34.0 pg 04/24/2015 5:29 AM [facility] MCHC 32.3 30.0 - 35.0 g/dL 04/24/2015 5:29 AM [facility] RDW 16.7(H) 11.0 - 14.5 % 04/24/2015 5:29 AM [facility] RDW-STDEV 54.7(H) 37.0 - 54.0 fL 04/24/2015 5:29 AM [facility] PLATELETS 449(H) 140 - 440 K/uL 04/24/2015 5:29 AM [facility] MPV 10.4 8.9 - 12.8 fL 04/24/2015 5:29 AM [facility] NEUTROPHILS 87(H) 42 - 75 % 04/24/2015 5:29 AM [facility] LYMPHOCYTES 4(L) 24 - 44 % 04/24/2015 5:29 AM [facility] MONOCYTES 6 2 - 10 % 04/24/2015 5:29 AM [facility] EOSINOPHILS 1 0 - 7 % 04/24/2015 5:29 AM [facility] BASOPHILS 0 0 - 1 % 04/24/2015 5:29 AM [facility] NEUTROPHIL ABSOLUTE 16.83(H) 2.00 - 8.00 K/uL 04/24/2015 5:29 AM [facility] LYMPHOCYTE ABSOLUTE 0.82(L) 1.20 - 4.00 K/uL 04/24/2015 5:29 AM [facility] MONOCYTE ABSOLUTE 1.12(H) 0.10 - 0.60 K/uL 04/24/2015 5:29 AM [facility] EOSINOPHIL ABSOLUTE 0.19 0.00 - 0.70 K/uL 04/24/2015 5:29 AM [facility] BASOPHILS ABSOLUTE 0.05 0.00 - 0.20 K/uL 04/24/2015 5:29 AM [facility] IMMATURE GRANULOCYTES 2 0 - 2 % 04/24/2015 5:29 AM [facility] IMMATURE GRANULOCYTES ABSOLUTE 0.33(H) 0.00 - 0.10 K/uL 04/24/2015 5:29 AM [facility] Blood Collection / Unknown 04/24/2015 3:05 AM FOREIGN LEGAL CONSULTANT 04/24/2015 5:03 AM FOREIGN LEGAL CONSULTANT us Timmy Kellogg MD HEMATOLOGY ORDERABLES Final Re sult [facility] CLIA# [id number] [address] [place] [address] documented in this encounter Visit Diagnoses Not on filedocumented in this encounter
--- OUTSIDE RECORDS SUMMARY | 2024-04-29 05:27 | XMS_ITS | Encounter Summary ---
Author Organization [employer] [facility] Address [address] [place] [address] Care Team Providers Care Piano Regulator Inspector Name Role Phone Unavailable Primary Care Provider Unavailabl e Encounter Details Date Type Department Care Team (Latest Contact Info) Description 12/19/2002 Outpatient Historical [facility] Gurwinder Felipe Jr., MD [address] [place] [phone] Gynecologic examination (Primary Dx); ABN FIND-STOOL CONTENTS-OCC BLOOD; NEOPLASM NOS, SITE NEC; SCREENING MAL NEOP-COLON Social History Tobacco Use Types Packs/Day Years Used Date Smoking Tobacco: Never Assessed Comments Unknown Sex and Gender Information Value Date Recorded Sex Assigned at Not on file Legal Sex Female 4:17 AM PHP MAGENTO DEVELOPER Gender Identity Not on file Sexual Orientation Not on file documented as of this encounter Plan of Treatment Not on file documented as of this encounter Visit Diagnoses Diagnosis Gynecologic examination- Primary Gynecological examination Nonspecific abnormal finding in stool contents Neoplasm of unspecified nature of other specified sites Special screening for malignant neoplasms, colon documented in this encounter
--- OUTSIDE RECORDS SUMMARY | 2024-04-29 05:27 | XMS_ITS | Encounter Summary ---
Author Organization [facility] Address [address] [place] [address] Care Team Providers Care Research And Development Tester Name Role Phone Unavailable Primary Care Provider Unavailabl e Encounter Details Date Type Department Care Team (Latest Contact Info) Description 02/03/2002 Outpatient Historical [facility] Int [facility] [phone] [place] [address] Pankaj Jarrett MD NO ADDRESS ON FILE PRECORDIAL PAIN (Primary Dx) Social History Tobacco Use Types Packs/Day Years Used Date Smoking Tobacco: Never Assessed Comments Unknown Sex and Gender Information Value Date Recorded Sex Assigned at Not on file Legal Sex Female 4:17 AM PAIRING MACHINE OPERATOR Gender Identity Not on file Sexual Orientation Not on file documented as of this encounter Plan of Treatment Not on file documented as of this encounter Visit Diagnoses Diagnosis Precordial pain- Primary documented in this encounter
--- OUTSIDE RECORDS SUMMARY | 2024-04-29 05:27 | XMS_ITS | Encounter Summary ---
Author Organization [employer] [facility] Address [address] [place] [address] Care Team Providers Care Rehabilitation Liaison Name Role Phone Unavailable Primary Care Provider Unavailabl e Encounter Details Date Type Department Care Team (Latest Contact Info) Description 01/07/2003 Outpatient Historical [facility] Gurwinder Felipe Jr., MD [address] [place] [phone] OSTEOARTHROS NOS-UNSPEC (Primary Dx) Social History Tobacco Use Types Packs/Day Years Used Date Smoking Tobacco: Never Assessed Comments Unknown Sex and Gender Information Value Date Recorded Sex Assigned at Not on file Legal Sex Female 4:17 AM CAR MANAGER Gender Identity Not on file Sexual Orientation Not on file documented as of this encounter Plan of Treatment Not on file documented as of this encounter Visit Diagnoses Diagnosis Osteoarthrosis, unspecified whether generalized or localized, unspecified site- Primary documented in this encounter
--- OUTSIDE RECORDS SUMMARY | 2024-04-29 05:27 | XMS_ITS | Encounter Summary ---
Author Organization [facility] Address [address] [place] [address] Care Team Providers Care Seam Rubber Name Role Phone Unavailable Primary Care Provider Unavailabl e Encounter Details Date Type Department Care Team (Late st Contact Info) Description 04/22/2015 Lab Requisition [facility] [address] [place] [address] Magdi Crawford MD [address] [place] [address] Social History Tobacco Use Types Packs/Day Years Used Date Smoking Tobacco: Never Assessed Comments Unknown Sex and Gender Information Value Date Recorded Sex Assigned at Not on file Legal Sex Female 4:17 AM GLUE JOINTER OPERATOR Gender Identity Not on file Sexual Orientation Not on file documented as of this encounter Plan of Treatment Not on file documented as of this encounter Procedures Procedure Name Priority Date/Time Associated Diagnosis Comments CBC WITH DIFFERENTIAL Routine 04/22/2015 3:30 AM GLUE JOINTER OPERATOR MAGNESIUM LEVEL Routine 04/22/2015 3:30 AM GLUE JOINTER OPERATOR VANCOMYCIN LEVEL RANDOM Routine 04/22/2015 3:30 AM GLUE JOINTER OPERATOR LIPID PANEL Routine 04/22/2015 3:30 AM GLUE JOINTER OPERATOR COMPREHENSIVE METABOLIC PANEL Routine 04/22/2015 3:30 AM GLUE JOINTER OPERATOR documented in this encounter Results * MAGNESIUM LEVEL (04/22/2015 3:30 AM GLUE JOINTER OPERATOR) MAGNESIUM 2.0 1.8 - 2.4 mg/dL 04/22/2015 6:09 AM [facility] Blood Collection / Unknown 04/22/2015 3:30 AM GLUE JOINTER OPERATOR 04/22/2015 5:06 AM GLUE JOINTER OPERATOR us Magdi Crawford MD CHEMISTRY ORDERABLES Final Result Performing Organization Address [facility] Co de Phone Number [facility] CLIA# [id number] [address] [place] [address] * VANCOMYCIN LEVEL RANDOM (04/22/2015 3:30 AM GLUE JOINTER OPERATOR) [facility] VANCOMYCIN, RANDOM 5.5 5.0 - 50.0 ug/mL 04/22/2015 6:09 AM [facility] Blood Collection / Unknown 04/22/2015 3:30 AM GLUE JOINTER OPERATOR 04/22/2015 5:06 AM GLUE JOINTER OPERATOR Narrative [facility] - 04/22/2015 6:09 AM GLUE JOINTER OPERATOR Vancomycin Therapeutic Ranges: Vancomycin Trough: 10 - 20 mcg/mL Vancomycin Peak: ?? 25 - 50 mcg/mL us Magdi Crawford MD CHEMISTRY ORDERABLES Final Result Performing Organization Address [facility] Co de Phone Number [facility] CLIA# [id number] [address] [place] [address] * (ABNORMAL) CBC WITH DIFFERENTIAL (04/22/2015 3:30 AM GLUE JOINTER OPERATOR) Pathologist [facility] WBC 25.0(H) 4.8 - 10.8 K/uL 04/22/2015 6:38 AM [facility] RBC 2.95(L) 4.20 - 5.40 M/uL 04/22/2015 6:38 AM [facility] HEMOGLOBIN 8.6(L) 12.0 - 16.0 g/dL 04/22/2015 6:38 AM [facility] HEMATOCRIT 26.6(L) 36.0 - 46.0 % 04/22/2015 6:38 AM [facility] MCV 90.2 84.0 - 103.0 fL 04/22/2015 6:38 AM [facility] MCH 29.2 27.0 - 34.0 pg 04/22/2015 6:38 AM [facility] MCHC 32.3 30.0 - 35.0 g/dL 04/22/2015 6:38 AM [facility] RDW 16.6(H) 11.0 - 14.5 % 04/22/2015 6:38 AM [facility] RDW-STDEV 52.3 37.0 - 54.0 fL 04/22/2015 6:38 AM [facility] PLATELETS 438 140 - 440 K/uL 04/22/2015 6:38 AM [facility] MPV 11.4 8.9 - 12.8 fL 04/22/2015 6:38 AM [facility] NEUTROPHILS 84(H) 42 - 75 % 04/22/2015 6:38 AM [facility] LYMPHOCYTES 6(L) 24 - 44 % 04/22/2015 6:38 AM [facility] MONOCYTES 4 2 - 10 % 04/22/2015 6:38 AM [facility] EOSINOPHILS 1 0 - 7 % 04/22/2015 6:38 AM [facility] BASOPHILS 0 0 - 1 % 04/22/2015 6:38 AM [facility] NEUTROPHIL ABSOLUTE 21.01(H) 2.00 - 8.00 K/uL 04/22/2015 6:38 AM [facility] LYMPHOCYTE ABSOLUTE 1.44 1.20 - 4.00 K/uL 04/22/2015 6:38 AM [facility] MONOCYTE ABSOLUTE 1.09(H) 0.10 - 0.60 K/uL 04/22/2015 6:38 AM [facility] EOSINOPHIL ABSOLUTE 0.19 0.00 - 0.70 K/uL 04/22/2015 6:38 AM [facility] BASOPHILS ABSOLUTE 0.05 0.00 - 0.20 K/uL 04/22/2015 6:38 AM [facility] IMMATURE GRANULOCYTES 5(H) 0 - 2 % 04/22/2015 6:38 AM [facility] IMMATURE GRANULOCYTES ABSOLUTE 1.17(H) 0.00 - 0.10 K/uL 04/22/2015 6:38 AM [facility] Blood Collection / Unknown 04/22/2015 3:30 AM GLUE JOINTER OPERATOR 04/22/2015 5:06 AM GLUE JOINTER OPERATOR us Magdi Crawford MD HEMATOLOGY ORDERABLES Final Result [facility] CLIA# [id number] [address] [place] [address] * (ABNORMAL) LIPID PANEL (04/22/2015 3:30 AM GLUE JOINTER OPERATOR) CHOLESTEROL <50 <200 mg/dL 04/22/2015 6:25 AM [facility] TRIGLYCERIDE 113 <150 mg/dL 04/22/2015 6:25 AM [facility] HDL 13(L) 40 - 59 mg/dL 04/22/2015 6:25 AM [facility] LDL CALCULATED <100 mg/dL 04/22/2015 6:25 AM [facility] Comment:Chol <50 calculation not valid NON-HDL CHOLESTEROL <130 mg/dL 04/22/2015 6:25 AM [facility] Comment:Chol <50 calculation not valid Blood Collection / Unknown 04/22/2015 3:30 AM GLUE JOINTER OPERATOR 04/22/2015 5:[address] [facility] - 04/22/2015 6:25 AM GLUE JOINTER OPERATOR TOTAL CHOLESTEROL mg/dL ??Desirable ? <200 ??Borderline [...] Magdi Crawford MD CHEMISTRY ORDERABLES Final Result [facility] CLIA# [id number] [address] [place] [address] * (ABNORMAL) COMPREHENSIVE METABOLIC PANEL (04/22/2015 3:30 AM GLUE JOINTER OPERATOR) SODIUM 140 136 - 145 mmol/L 04/22/2015 6:09 AM GLUE JOINTER OPERATOR [facility] POTASSIUM 3.9 3.5 - 5.1 mmol/L 04/22/2015 6:09 AM GLUE JOINTER OPERATOR [facility] CHLORIDE 107 98 - 107 mmol/L 04/22/2015 6:09 AM [facility] CO2 25 21 - 32 mmol/L 04/22/2015 6:09 AM [facility] CALCIUM 7.3(L) 8.4 - 10.1 mg/dL 04/22/2015 6:09 AM [facility] BUN 19(H) 7 - 17 mg/dL 04/22/2015 6:09 AM [facility] CREATININE 0.48(L) 0.55 - 1.02 mg/dL 04/22/2015 6:09 AM [facility] GLUCOSE 111(H) 74 - 106 mg/dL 04/22/2015 6:09 AM [facility] TOTAL PROTEIN 4.4(L) 6.4 - 8.2 g/dL 04/22/2015 6:09 AM [facility] ALBUMIN 1.3(L) 3.4 - 5.0 g/dL 04/22/2015 6:09 AM [facility] BILIRUBIN TOTAL 0.5 0.2 - 1.0 mg/dL 04/22/2015 6:09 AM [facility] ALKALINE PHOSPHATASE 53 25 - 100 U/L 04/22/2015 6:09 AM [facility] AST 15 15 - 37 U/L 04/22/2015 6:09 AM [facility] ALT 11(L) 13 - 61 U/L 04/22/2015 6:09 AM [facility] GFR >60 >=60 mL/min/1. 73 sq meter 04/22/2015 6:09 AM [facility] Comment: eGFR has not been validated [...] GFR, >60 >=60 mL/min/1. 73 sq meter 04/22/2015 6:09 AM GLUE JOINTER OPERATOR [facility] ANION GAP 8 8 - 16 mmol/L 04/22/2015 6:09 AM [facility] Blood Collection / Unknown 04/22/2015 3:30 AM GLUE JOINTER OPERATOR 04/22/2015 5:06 AM GLUE JOINTER OPERATOR Narrative [facility] - 04/22/2015 6:09 AM GLUE JOINTER OPERATOR The reference range for ALT has changed from its previous range of 12-78 U/L as of 03/31/2015. us Magdi Crawford MD CHEMISTRY ORDERABLES Final Result [facility] CLIA# [id number] [address] [place] [address] documented in this encounter Visit Diagnoses Not on filedocumented in this encounter
--- OUTSIDE RECORDS SUMMARY | 2024-04-29 05:27 | XMS_ITS | Encounter Summary ---
Author Organization [facility] Address [address] [place] [address] Care Team Providers Care Advertising Agent Name Role Phone Unavailable Primary Care Provider Unavailabl e Encounter Details Date Type Department Care Team (Late st Contact Info) Description 02/03/2002 Outpatient Historical [facility] [place] [address] [place] [address] Jeramie Cartagena MD [address] [facility] [address] [place] [address] CHEST PAIN NOS (Primary Dx); HYPERTENSION NOS Social History Tobacco Use Types Packs/Day Years Used Date Smoking Tobacco: Never Assessed Comments Unknown Sex and Gender Information Value Date Recorded Sex Assigned at Not on file Legal Sex Female 4:17 AM DRAFTER ELECTRICAL Gender Identity Not on file Sexual Orientation Not on file documented as of this encounter Plan of Treatment Not on file documented as of this encounter Visit Diagnoses Diagnosis Chest pain, unspecified- Primary Unspecified essential hypertension documented in this encounter
--- OUTSIDE RECORDS SUMMARY | 2024-04-29 05:27 | XMS_ITS | Encounter Summary ---
Author Organization [employer] [facility] Address [address] [place] [address] Care Team Providers Care Engine Lathe Set Up Operator Name Role Phone Unavailable Primary Care Provider Unavailabl e Encounter Details Date Type Department Care Team (Latest Contact Info) Description 03/03/1999 Outpatient Historical [facility] Gurwinder Felipe Jr., MD [address] [place] [phone] Acute upper respiratory infections of unspecified site (Primary Dx); Unspecified asthma(493.90) Social History Tobacco Use Types Packs/Day Years Used Date Smoking Tobacco: Never Assessed Comments Unknown Sex and Gender Information Value Date Recorded Sex Assigned at Not on file Legal Sex Female 4:17 AM BULLION WEIGHER Gender Identity Not on file Sexual Orientation Not on file documented as of this encounter Plan of Treatment Not on file documented as of this encounter Visit Diagnoses Diagnosis Acute upper respiratory infections of unspecified site- Primary Unspecified asthma(493.90) Unspecified asthma documented in this encounter
--- OUTSIDE RECORDS SUMMARY | 2024-04-29 05:27 | XMS_ITS | Encounter Summary ---
Author Organization [employer] [facility] Address [address] [place] [address] Care Team Providers Care Dairy Bacteriologist Name Role Phone Unavailable Primary Care Provider Unavailabl e Encounter Details Date Type Department Care Team (Latest Contact Info) Description 07/27/1999 Outpatient Historical [facility] Gurwinder Felipe Jr., MD [facility] [place] [phone] Unspecified essential hypertension (Primary Dx); Allergic rhinitis, cause unspecified Social History Tobacco Use Types Packs/Day Years Used Date Smoking Tobacco: Never Assessed Comments Unknown Sex and Gender Information Value Date Recorded Sex Assigned at Not on file Legal Sex Female 4:17 AM COTTAGE MASTER Gender Identity Not on file Sexual Orientation Not on file documented as of this encounter Plan of Treatment Not on file documented as of this encounter Visit Diagnoses Diagnosis Unspecified essential hypertension- Primary Allergic rhinitis, cause unspecified documented in this encounter
--- OUTSIDE RECORDS SUMMARY | 2024-04-29 05:27 | XMS_ITS | Encounter Summary ---
Author Organization [employer] [facility] Address [address] [place] [address] Care Team Providers Care Stone Setter Metal Optical Frames Name Role Phone Unavailable Primary Care Provider Unavailabl e Encounter Details Date Type Department Care Team (Latest Contact Info) Description 08/05/2001 Outpatient Historical [facility] Matteo Inman, Gurwinder Mora MD [address] [place] [phone] ACUTE SINUSITIS NOS (Primary Dx) Social History Tobacco Use Types Packs/Day Years Used Date Smoking Tobacco: Never Assessed Comments Unknown Sex and Gender Information Value Date Recorded Sex Assigned at Not on file Legal Sex Female 4:17 AM REHABILITATION PROGRAM MANAGER Gender Identity Not on file Sexual Orientation Not on file documented as of this encounter Plan of Treatment Not on file documented as of this encounter Visit Diagnoses Diagnosis Acute sinusitis, unspecified- Primary documented in this encounter
--- OUTSIDE RECORDS SUMMARY | 2024-04-29 05:27 | XMS_ITS | Encounter Summary ---
Author Organization [email or web address] [facility] Address [address] [place] [address] Care Team Providers Care Peoplesoft Administrator Name Role Phone Unavailable Primary Care Provider Unavailabl e Encounter Details Date Type Department Care Team (Latest Contact Info) Description 02/22/2000 Outpatient Historical [facility] Gurwinder Felipe Jr., MD [address] [place] [phone] Need vaccination-viral disease (Primary Dx) Social History Tobacco Use Types Packs/Day Years Used Date Smoking Tobacco: Never Assessed Comments Unknown Sex and Gender Information Value Date Recorded Sex Assigned at Not on file Legal Sex Female 4:17 AM CATTLE FEEDER Gender Identity Not on file Sexual Orientation Not on file documented as of this encounter Plan of Treatment Not on file documented as of this encounter Visit Diagnoses Diagnosis Need vaccination-viral disease- Primary Need for prophylactic vaccination and inoculation against other viral diseases documented in this encounter
--- OUTSIDE RECORDS SUMMARY | 2024-04-29 05:27 | XMS_ITS | Encounter Summary ---
Author Organization [employer] [facility] Address [address] [place] [address] Care Team Providers Care Weaver Dobby Loom Name Role Phone Unavailable Primary Care Provider Unavailabl e Encounter Details Date Type Department Care Team (Latest Contact Info) Description 01/04/2001 Outpatient Historical [facility] Gurwinder Felipe Jr., MD [address] [place] [phone] Unspecified essential hypertension (Primary Dx); Volume depletion Social History Tobacco Use Types Packs/Day Years Used Date Smoking Tobacco: Never Assessed Comments Unknown Sex and Gender Information Value Date Recorded Sex Assigned at Not on file Legal Sex Female 4:17 AM QUALITY ASSURANCE SPECIALIST Gender Identity Not on file Sexual Orientation Not on file documented as of this encounter Plan of Treatment Not on file documented as of this encounter Visit Diagnoses Diagnosis Unspecified essential hypertension- Primary Volume depletion documented in this encounter
--- OUTSIDE RECORDS SUMMARY | 2024-04-29 05:27 | XMS_ITS | Encounter Summary ---
Author Organization [employer] [facility] Address [address] [place] [address] Care Team Providers Care Projector Operator Name Role Phone Unavailable Primary Care Provider Unavailabl e Encounter Details Date Type Department Care Team (Latest Contact Info) Description 04/04/2002 Outpatient Historical [facility] Gurwinder Felipe Jr., MD [address] [place] [phone] HYPERTENSION NOS (Primary Dx); OSTEOPOROSIS NOS Social History Tobacco Use Types Packs/Day Years Used Date Smoking Tobacco: Never Assessed Comments Unknown Sex and Gender Information Value Date Recorded Sex Assigned at Not on file Legal Sex Female 4:17 AM RN NAVIGATOR Gender Identity Not on file Sexual Orientation Not on file documented as of this encounter Plan of Treatment Not on file documented as of this encounter Visit Diagnoses Diagnosis Unspecified essential hypertension- Primary Osteoporosis, unspecified documented in this encounter
--- OUTSIDE RECORDS SUMMARY | 2024-04-29 05:27 | XMS_ITS | Encounter Summary ---
Author Organization [facility] Address [address] [facility] Attn: Epic Prelude ADT [place] [address] Care Team Providers Care First Assistant Name Role Phone Unavailable Primary Care Provider Unavailabl e Encounter Details Date Type Department Care Team (Late st Contact Info) Description 05/22/2001 Outpatient Historical Matteo Inman, Gurwinder Mora MD [address] [place] [address] Social History Tobacco Use Types Packs/Day Years Used Date Smoking Tobacco: Never Assessed Comments Unknown Sex and Gender Information Value Date Recorded Sex Assigned at Not on file Legal Sex Female 4:17 AM TERRITORY DEVELOPMENT MANAGER Gender Identity Not on file Sexual Orientation Not on file documented as of this encounter Plan of Treatment Not on file documented as of this encounter Visit Diagnoses Not on filedocumented in this encounter
--- OUTSIDE RECORDS SUMMARY | 2024-04-29 05:27 | XMS_ITS | Encounter Summary ---
Author Organization [employer] [facility] Address [address] [place] [address] Care Team Providers Care Guest Service Host Name Role Phone Unavailable Primary Care Provider Unavailabl e Encounter Details Date Type Department Care Team (Latest Contact Info) Description 02/26/2002 Outpatient Historical [facility] Gurwinder Felipe Jr., MD [address] [place] [phone] HYPERTENSION NOS (Primary Dx); BRONCHITIS NOS; OSTEOPOROSIS NOS Social History Tobacco Use Types Packs/Day Years Used Date Smoking Tobacco: Never Assessed Comments Unknown Sex and Gender Information Value Date Recorded Sex Assigned at Not on file Legal Sex Female 4:17 AM PROCUREMENT AGENT Gender Identity Not on file Sexual Orientation Not on file documented as of this encounter Plan of Treatment Not on file documented as of this encounter Visit Diagnoses Diagnosis Unspecified essential hypertension- Primary Bronchitis, not specified as acute or chronic Osteoporosis, unspecified documented in this encounter
--- OUTSIDE RECORDS SUMMARY | 2024-04-29 05:27 | XMS_ITS | Encounter Summary ---
Author Organization [email or web address] [facility] Address [address] [place] [address] Care Team Providers Care Processing Clerk Name Role Phone Unavailable Primary Care Provider Unavailabl e Encounter Details Date Type Department Care Team (Latest Contact Info) Description 12/25/2002 Outpatient Historical [facility] Gurwinder Felipe Jr., MD [address] [place] [phone] Diverticulosis of colon (Primary Dx); HYPERTENSION NOS Social History Tobacco Use Types Packs/Day Years Used Date Smoking Tobacco: Never Assessed Comments Unknown Sex and Gender Information Value Date Recorded Sex Assigned at Not on file Legal Sex Female 4:17 AM BRIM WELT SEWING MACHINE OPERATOR Gender Identity Not on file Sexual Orientation Not on file documented as of this encounter Plan of Treatment Not on file documented as of this encounter Visit Diagnoses Diagnosis Diverticulosis of colon- Primary Diverticulosis of colon (without mention of hemorrhage) Unspecified essential hypertension documented in this encounter
--- OUTSIDE RECORDS SUMMARY | 2024-04-29 05:27 | XMS_ITS | Encounter Summary ---
Author Organization [employer] [facility] Address [address] [place] [address] Care Team Providers Care Acetylene Gas Compressor Name Role Phone Unavailable Primary Care Provider Unavailabl e Encounter Details Date Type Department Care Team (Latest Contact Info) Description 10/25/1999 Outpatient Historical [facility] Gurwinder Felipe Jr., MD [address] [place] [address] [phone] Unspecified essential hypertension (Primary Dx) Social History Tobacco Use Types Packs/Day Years Used Date Smoking Tobacco: Never Assessed Comments Unknown Sex and Gender Information Value Date Recorded Sex Assigned at Not on file Legal Sex Female 4:17 AM DOOR PANELER Gender Identity Not on file Sexual Orientation Not on file documented as of this encounter Plan of Treatment Not on file documented as of this encounter Visit Diagnoses Diagnosis Unspecified essential hypertension- Primary documented in this encounter
--- OUTSIDE RECORDS SUMMARY | 2024-04-29 05:27 | XMS_ITS | Encounter Summary ---
Author Organization [employer] [facility] Address [address] [place] [address] Care Team Providers Care Gas Stove Servicer Helper Name Role Phone Unavailable Primary Care Provider Unavailabl e Encounter Details Date Type Department Care Team (Latest Contact Info) Description 12/06/2000 Outpatient Historical [facility] Gurwinder Felipe Jr., MD [address] [place] [phone] Unspecified essential hypertension (Primary Dx); Cramp of limb Social History Tobacco Use Types Packs/Day Years Used Date Smoking Tobacco: Never Assessed Comments Unknown Sex and Gender Information Value Date Recorded Sex Assigned at Not on file Legal Sex Female 4:17 AM WIRE BENDER HAND Gender Identity Not on file Sexual Orientation Not on file documented as of this encounter Plan of Treatment Not on file documented as of this encounter Visit Diagnoses Diagnosis Unspecified essential hypertension- Primary Cramp of limb documented in this encounter
--- OUTSIDE RECORDS SUMMARY | 2024-04-29 05:27 | XMS_ITS | Encounter Summary ---
Author Organization [employer] [facility] Address [address] [place] [address] Care Team Providers Care Precision Inspector Name Role Phone Unavailable Primary Care Provider Unavailabl e Encounter Details Date Type Department Care Team (Late st Contact Info) Description 04/04/2002 Outpatient Historical [facility] Matteo Inman, Gurwinder Mora MD [address] [place] [address] Social History Tobacco Use Types Packs/Day Years Used Date Smoking Tobacco: Never Assessed Comments Unknown Sex and Gender Information Value Date Recorded Sex Assigned at Not on file Legal Sex Female 4:17 AM TRACE CLERK Gender Identity Not on file Sexual Orientation Not on file documented as of this encounter Plan of Treatment Not on file documented as of this encounter Visit Diagnoses Not on filedocumented in this encounter
--- OUTSIDE RECORDS SUMMARY | 2024-04-29 05:27 | XMS_ITS | Encounter Summary ---
Author Organization [employer] [facility] Address [address] [place] [address] Care Team Providers Care Ripsaw Operator Name Role Phone Unavailable Primary Care Provider Unavailabl e Encounter Details Date Type Department Care Team (Latest Contact Info) Description 03/28/2001 Outpatient Historical [facility] Gurwinder Felipe Jr., MD [facility] [place] [phone] ACUTE SINUSITIS NOS (Primary Dx); HYPERTENSION NOS; ACUTE URI NOS; OSTEOPOROSIS NOS Social History Tobacco Use Types Packs/Day Years Used Date Smoking Tobacco: Never Assessed Comments Unknown Sex and Gender Information Value Date Recorded Sex Assigned at Not on file Legal Sex Female 4:17 AM PROJECT ENGINEERING MANAGER Gender Identity Not on file Sexual Orientation Not on file documented as of this encounter Plan of Treatment Not on file documented as of this encounter Visit Diagnoses Diagnosis Acute sinusitis, unspecified- Primary Unspecified essential hypertension Acute upper respiratory infections of unspecified site Osteoporosis, unspecified documented in this encounter
--- OUTSIDE RECORDS SUMMARY | 2024-04-29 05:27 | XMS_ITS | Encounter Summary ---
Author Organization [email or web address] [facility] Address [address] [place] [address] Care Team Providers Care Tape Cutter Name Role Phone Unavailable Primary Care Provider Unavailabl e Encounter Details Date Type Department Care Team (Latest Contact Info) Description 05/27/2001 Outpatient Historical [facility] Gurwinder Felipe Jr., MD [address] [place] [phone] ATTEN-SURG DRESSNG/SUTUR (Primary Dx) Social History Tobacco Use Types Packs/Day Years Used Date Smoking Tobacco: Never Assessed Comments Unknown Sex and Gender Information Value Date Recorded Sex Assigned at Not on file Legal Sex Female 4:17 AM PIGMENT WEIGHER Gender Identity Not on file Sexual Orientation Not on file documented as of this encounter Plan of Treatment Not on file documented as of this encounter Visit Diagnoses Diagnosis Attention to dressings and sutures- Primary documented in this encounter
--- OUTSIDE RECORDS SUMMARY | 2024-04-29 05:27 | XMS_ITS | Encounter Summary ---
Author Organization [facility] Address [address] [place] [address] Care Team Providers Care Architecture Consultant Name Role Phone Unavailable Primary Care Provider Unavailabl e Encounter Details Date Type Department Care Team (Late st Contact Info) Description 04/26/[address] [facility] Laboratory Services [address] [place] [address] [place] [address] Magdi Crawford MD [address] [place] [address] Social History Tobacco Use Types Packs/Day Years Used Date Smoking Tobacco: Never Assessed Comments Unknown Sex and Gender Information Value Date Recorded Sex Assigned at Not on file Legal Sex Female 4:17 AM HOT CAR CHARGER Gender Identity Not on file Sexual Orientation Not on file documented as of this encounter Plan of Treatment Not on file documented as of this encounter Procedures Procedure Name Priority Date/Time Associated Diagnosis Comments CBC WITH DIFFERENTIAL Routine 04/26/2015 3:30 AM HOT CAR CHARGER TRIGLYCERIDE Routine 04/26/2015 3:30 AM HOT CAR CHARGER PREALBUMIN Routine 04/26/2015 3:30 AM HOT CAR CHARGER LIPID PANEL Routine 04/26/2015 3:30 AM HOT CAR CHARGER COMPREHENSIVE METABOLIC PANEL Routine 04/26/2015 3:30 AM HOT CAR CHARGER documented in this encounter Results * (ABNORMAL) LIPID PANEL (04/26/2015 3:30 AM HOT CAR CHARGER) [facility] CHOLESTEROL <50 <200 mg/dL 04/26/2015 6:31 AM [facility] TRIGLYCERIDE 114 <150 mg/dL 04/26/2015 6:31 AM [facility] HDL 18(L) 40 - 59 mg/dL 04/26/2015 6:31 AM [facility] LDL CALCULATED <100 mg/dL 04/26/2015 6:31 AM [facility] Comment: Cholesterol <50 Calculation invalid NON-HDL CHOLESTEROL <130 mg/dL 04/26/2015 6:31 AM [facility] Comment: Cholesterol <50 Calculation invalid Blood Collection / Unknown 04/26/2015 3:30 AM [facility] 04/26/2015 5:29 AM [facility] - 04/26/2015 6:31 AM [facility] TOTAL CHOLESTEROL mg/dL ??Desirable ? <200 ??Borderline [...] high ? >=220 Based on AHA/NCEP Guidelines Magdi Crawford MD CHEMISTRY ORDERABLES Final Result Performing Organization Address [facility] Phone Number [facility] CLIA# [id number] [address] [place] [address] * TRIGLYCERIDE (04/26/2015 3:30 AM HOT CAR CHARGER) Pathologist [facility] TRIGLYCERIDE 114 <150 mg/dL 04/26/2015 6:24 AM HOT CAR CHARGER [facility] Blood Collection / Unknown 04/26/2015 3:30 AM HOT CAR CHARGER 04/26/2015 5:29 AM HOT CAR CHARGER Narrative [facility] - 04/26/2015 6:24 AM HOT CAR CHARGER TRIGLYCERIDES ? mg/dL Normal ?< 150 Borderline High ?150 - 199 High ? 200 - 499 Very High ? >= 500 Based on AHA/NCEP Guidelines. Magdi Crawford MD CHEMISTRY ORDERABLES Final Result Performing Organization Address [facility] de Phone Number [facility] CLIA# [id number] [address] [place] [address] * (ABNORMAL) PREALBUMIN (04/26/2015 3:30 AM HOT CAR CHARGER) Pathologist [facility] PREALBUMIN 18(L) 20 - 40 mg/dL 04/26/2015 6:24 AM HOT CAR CHARGER [facility] Blood Collection / Unknown 04/26/2015 3:30 AM HOT CAR CHARGER 04/26/2015 5:29 AM HOT CAR CHARGER us Magdi Crawford MD CHEMISTRY ORDERABLES Final Result [facility] CLIA# [id number] [facility] [place] [address] * (ABNORMAL) CBC WITH DIFFERENTIAL (04/26/2015 3:30 AM HOT CAR CHARGER) [facility] WBC 15.5(H) 4.8 - 10.8 K/uL 04/26/2015 6:08 AM [facility] RBC 2.66(L) 4.20 - 5.40 M/uL 04/26/2015 6:08 AM [facility] HEMOGLOBIN 7.9(L) 12.0 - 16.0 g/dL 04/26/2015 6:08 AM [facility] HEMATOCRIT 24.2(L) 36.0 - 46.0 % 04/26/2015 6:08 AM [facility] MCV 91.0 84.0 - 103.0 fL 04/26/2015 6:08 AM [facility] MCH 29.7 27.0 - 34.0 pg 04/26/2015 6:08 AM [facility] MCHC 32.6 30.0 - 35.0 g/dL 04/26/2015 6:08 AM [facility] RDW 16.3(H) 11.0 - 14.5 % 04/26/2015 6:08 AM [facility] RDW-STDEV 53.1 37.0 - 54.0 fL 04/26/2015 6:08 AM [facility] PLATELETS 653(H) 140 - 440 K/uL 04/26/2015 6:08 AM [facility] MPV 10.0 8.9 - 12.8 fL 04/26/2015 6:08 AM [facility] NEUTROPHILS 82(H) 42 - 75 % 04/26/2015 6:08 AM [facility] LYMPHOCYTES 7(L) 24 - 44 % 04/26/2015 6:08 AM [facility] MONOCYTES 9 2 - 10 % 04/26/2015 6:08 AM [facility] EOSINOPHILS 1 0 - 7 % 04/26/2015 6:08 AM [facility] BASOPHILS 0 0 - 1 % 04/26/2015 6:08 AM [facility] NEUTROPHIL ABSOLUTE 12.66(H) 2.00 - 8.00 K/uL 04/26/2015 6:08 AM [facility] LYMPHOCYTE ABSOLUTE 1.06(L) 1.20 - 4.00 K/uL 04/26/2015 6:08 AM [facility] MONOCYTE ABSOLUTE 1.42(H) 0.10 - 0.60 K/uL 04/26/2015 6:08 AM [facility] EOSINOPHIL ABSOLUTE 0.20 0.00 - 0.70 K/uL 04/26/2015 6:08 AM [facility] BASOPHILS ABSOLUTE 0.05 0.00 - 0.20 K/uL 04/26/2015 6:08 AM [facility] IMMATURE GRANULOCYTES 1 0 - 2 % 04/26/2015 6:08 AM [facility] IMMATURE GRANULOCYTES ABSOLUTE 0.14(H) 0.00 - 0.10 K/uL 04/26/2015 6:08 AM [facility] Blood Collection / Unknown 04/26/2015 3:30 AM HOT CAR CHARGER 04/26/2015 5:29 AM [facility] us Magdi Crawford MD HEMATOLOGY ORDERABLES Final Result [facility] CLIA# [id number] [address] [place] [address] * (ABNORMAL) COMPREHENSIVE METABOLIC PANEL (04/26/2015 3:30 AM HOT CAR CHARGER) SODIUM 142 136 - 145 mmol/L 04/26/2015 6:24 AM [facility] POTASSIUM 3.3(L) 3.5 - 5.1 mmol/L 04/26/2015 6:24 AM [facility] CHLORIDE 105 98 - 107 mmol/L 04/26/2015 6:24 AM [facility] CO2 31 21 - 32 mmol/L 04/26/2015 6:24 AM [facility] CALCIUM 7.5(L) 8.4 - 10.1 mg/dL 04/26/2015 6:24 AM [facility] BUN 13 7 - 17 mg/dL 04/26/2015 6:24 AM [facility] CREATININE 0.34(L) 0.55 - 1.02 mg/dL 04/26/2015 6:24 AM [facility] GLUCOSE 101 74 - 106 mg/dL 04/26/2015 6:24 AM [facility] TOTAL PROTEIN 4.6(L) 6.4 - 8.2 g/dL 04/26/2015 6:24 AM [facility] ALBUMIN 1.3(L) 3.4 - 5.0 g/dL 04/26/2015 6:24 AM [facility] BILIRUBIN TOTAL 0.3 0.2 - 1.0 mg/dL 04/26/2015 6:24 AM [facility] ALKALINE PHOSPHATASE 53 25 - 100 U/L 04/26/2015 6:24 AM [facility] AST 13(L) 15 - 37 U/L 04/26/2015 6:24 AM [facility] ALT 8(L) 13 - 61 U/L 04/26/2015 6:24 AM [facility] GFR >60 >=60 mL/min/1. 73 sq meter 04/26/2015 6:24 AM [facility] Comment: eGFR has not been validated [...] GFR, >60 >=60 mL/min/1. 73 sq meter 04/26/2015 6:24 AM HOT CAR CHARGER [facility] ANION GAP 6(L) 8 - 16 mmol/L 04/26/2015 6:24 AM [facility] Blood Collection / Unknown 04/26/2015 3:30 AM HOT CAR CHARGER 04/26/2015 5:29 AM HOT CAR CHARGER Narrative [facility] - 04/26/2015 6:24 AM HOT CAR CHARGER The reference range for ALT has changed from its previous range of 12-78 U/L as of 03/31/2015. us Magdi Crawford MD CHEMISTRY ORDERABLES Final Result [facility] CLIA# [id number] [address] [place] [address] documented in this encounter Visit Diagnoses Not on filedocumented in this encounter
--- OUTSIDE RECORDS SUMMARY | 2024-04-29 05:27 | XMS_ITS | Encounter Summary ---
Author Organization [employer] [facility] Address [address] [place] [address] Care Team Providers Care Rn Neurology Name Role Phone Unavailable Primary Care Provider Unavailabl e Encounter Details Date Type Department Care Team (Late st Contact Info) Description 05/02/2015 Lab Requisition [facility] Laboratory Services [address] [place] [address] [place] [phone] Timmy Kellogg MD [address] [place] [address] Social History Tobacco Use Types Packs/Day Years Used Date Smoking Tobacco: Never Assessed Comments Unknown Sex and Gender Information Value Date Recorded Sex Assigned at Not on file Legal Sex Female 4:17 AM MEDICAID SPECIALIST Gender Identity Not on file Sexual Orientation Not on file documented as of this encounter Plan of Treatment Not on file documented as of this encounter Procedures Procedure Name Priority Date/Time Associated Diagnosis Comments CBC WITH DIFFERENTIAL Routine 05/02/2015 3:50 AM MEDICAID SPECIALIST MAGNESIUM LEVEL Routine 05/02/2015 3:50 AM MEDICAID SPECIALIST BASIC METABOLIC PANEL Routine 05/02/2015 3:50 AM MEDICAID SPECIALIST documented in this encounter Results * MAGNESIUM LEVEL (05/02/2015 3:50 AM MEDICAID SPECIALIST) MAGNESIUM 1.8 1.8 - 2.4 mg/dL 05/02/2015 6:16 AM MEDICAID SPECIALIST [facility] [employer] [facility] Blood Collection / Unknown 05/02/2015 3:50 AM MEDICAID SPECIALIST 05/02/2015 5:27 AM MEDICAID SPECIALIST us Timmy Kellogg MD CHEMISTRY ORDERABLES Final Res ult [facility] CLIA# [id number] [address] [place] [address] * (ABNORMAL) CBC WITH DIFFERENTIAL (05/02/2015 3:50 AM MEDICAID SPECIALIST) Pathologist [facility] WBC 9.2 4.8 - 10.8 K/uL 05/02/2015 5:54 AM [facility] RBC 2.70(L) 4.20 - 5.40 M/uL 05/02/2015 5:54 AM [facility] HEMOGLOBIN 7.6(L) 12.0 - 16.0 g/dL 05/02/2015 5:54 AM [facility] HEMATOCRIT 24.0(L) 36.0 - 46.0 % 05/02/2015 5:54 AM [facility] MCV 88.9 84.0 - 103.0 fL 05/02/2015 5:54 AM [facility] MCH 28.1 27.0 - 34.0 pg 05/02/2015 5:54 AM [facility] MCHC 31.7 30.0 - 35.0 g/dL 05/02/2015 5:54 AM [facility] RDW 16.3(H) 11.0 - 14.5 % 05/02/2015 5:54 AM [facility] RDW-STDEV 52.1 37.0 - 54.0 fL 05/02/2015 5:54 AM [facility] PLATELETS 431 140 - 440 K/uL 05/02/2015 5:54 AM [facility] MPV 9.7 8.9 - 12.8 fL 05/02/2015 5:54 AM [facility] [employer] [facility] NEUTROPHILS 68 42 - 75 % 05/02/2015 5:54 AM [facility] LYMPHOCYTES 16(L) 24 - 44 % 05/02/2015 5:54 AM [facility] MONOCYTES 11(H) 2 - 10 % 05/02/2015 5:54 AM [facility] EOSINOPHILS 3 0 - 7 % 05/02/2015 5:54 AM [facility] BASOPHILS 0 0 - 1 % 05/02/2015 5:54 AM [facility] NEUTROPHIL ABSOLUTE 6.30 2.00 - 8.00 K/uL 05/02/2015 5:54 AM [facility] LYMPHOCYTE ABSOLUTE 1.46 1.20 - 4.00 K/uL 05/02/2015 5:54 AM [facility] MONOCYTE ABSOLUTE 1.05(H) 0.10 - 0.60 K/uL 05/02/2015 5:54 AM [facility] EOSINOPHIL ABSOLUTE 0.29 0.00 - 0.70 K/uL 05/02/2015 5:54 AM [facility] BASOPHILS ABSOLUTE 0.04 0.00 - 0.20 K/uL 05/02/2015 5:54 AM [facility] IMMATURE GRANULOCYTES 1 0 - 2 % 05/02/2015 5:54 AM [facility] IMMATURE GRANULOCYTES ABSOLUTE 0.08 0.00 - 0.10 K/uL 05/02/2015 5:54 AM [facility] Blood Collection / Unknown 05/02/2015 3:50 AM MEDICAID SPECIALIST 05/02/2015 5:27 AM [facility] Timmy Kellogg MD HEMATOLOGY ORDERABLES Final Re sult [facility] CLIA# [id number] [address] [place] [address] * (ABNORMAL) BASIC METABOLIC PANEL (05/02/2015 3:50 AM MEDICAID SPECIALIST) SODIUM 141 136 - 145 mmol/L 05/02/2015 6:15 AM [facility] POTASSIUM 3.2(L) 3.5 - 5.1 mmol/L 05/02/2015 6:15 AM [facility] CHLORIDE 103 98 - 107 mmol/L 05/02/2015 6:15 AM [facility] CO2 29 21 - 32 mmol/L 05/02/2015 6:15 AM [facility] CALCIUM 7.9(L) 8.4 - 10.1 mg/dL 05/02/2015 6:15 AM [facility] BUN 15 7 - 17 mg/dL 05/02/2015 6:15 AM [facility] CREATININE 0.46(L) 0.55 - 1.02 mg/dL 05/02/2015 6:15 AM [facility] GLUCOSE 126(H) 74 - 106 mg/dL 05/02/2015 6:15 AM [facility] GFR >60 >=60 mL/min/1. 73 sq meter 05/02/2015 6:15 AM [facility] Comment: eGFR has not been validated [...] GFR, >60 >=60 mL/min/1. 73 sq meter 05/02/2015 6:15 AM [facility] ANION GAP 9 8 - 16 mmol/L 05/02/2015 6:15 AM [facility] Blood Collection / Unknown 05/02/2015 3:50 AM MEDICAID SPECIALIST 05/02/2015 5:27 AM MEDICAID SPECIALIST us Timmy Kellogg MD CHEMISTRY ORDERABLES Final Res ult [facility] CLIA# [id number] [address] [place] [address] documented in this encounter Visit Diagnoses Not on filedocumented in this encounter
--- OUTSIDE RECORDS SUMMARY | 2024-04-29 05:27 | XMS_ITS | Encounter Summary ---
Author Organization [facility] Address [address] [place] [address] Care Team Providers Care Transit Operations Supervisor Name Role Phone Unavailable Primary Care Provider Unavailabl e Encounter Details Date Type Department Care Team (Late st Contact Info) Description 04/25/2015 Lab Requisition [facility] Laboratory Services [address] [place] [address] [place] [address] Magdi Crawford MD [address] [place] [address] Social History Tobacco Use Types Packs/Day Years Used Date Smoking Tobacco: Never Assessed Comments Unknown Sex and Gender Information Value Date Recorded Sex Assigned at Not on file Legal Sex Female 4:17 AM OVEN HEATER HELPER Gender Identity Not on file Sexual Orientation Not on file documented as of this encounter Plan of Treatment Not on file documented as of this encounter Procedures Procedure Name Priority Date/Time Associated Diagnosis Comments VANCOMYCIN LEVEL TROUGH Routine 04/25/2015 2:20 PM OVEN HEATER HELPER documented in this encounter Results * (ABNORMAL) VANCOMYCIN LEVEL TROUGH (04/25/2015 2:20 PM OVEN HEATER HELPER) VANCOMYCIN, TROUGH 4.5(LL) 10.0 - 20.0 ug/mL 04/25/2015 3:14 PM OVEN HEATER HELPER [facility] Comment:Critical value. Resu lts called to jose niño by CARA SCHMITT at 3:14 PM on 04/25/2015 and read back verified. Blood Collection / Unknown 04/25/2015 2:20 PM OVEN HEATER HELPER 04/25/2015 2:40 PM OVEN HEATER HELPER us Magdi Crawford MD CHEMISTRY ORDERABLES Final Result Performing Organization Address City/State/[facility] Co de Phone Number [facility]# [id number] [address] [place] [address] documented in this encounter Visit Diagnoses Not on filedocumented in this encounter
--- OUTSIDE RECORDS SUMMARY | 2024-04-29 05:27 | XMS_ITS | Encounter Summary ---
Author Organization [employer] [facility] Address [address] [place] [address] Care Team Providers Care Molecular Modeler Name Role Phone Unavailable Primary Care Provider Unavailabl e Encounter Details Date Type Department Care Team (Latest Contact Info) Description 04/21/1999 Outpatient Historical [facility] Matteo Inman, Gurwinder Mora MD [address] [place] [phone] Acute sinusitis, unspecified (Primary Dx) Social History Tobacco Use Types Packs/Day Years Used Date Smoking Tobacco: Never Assessed Comments Unknown Sex and Gender Information Value Date Recorded Sex Assigned at Not on file Legal Sex Female 4:17 AM IMAGE SCIENTIST Gender Identity Not on file Sexual Orientation Not on file documented as of this encounter Plan of Treatment Not on file documented as of this encounter Visit Diagnoses Diagnosis Acute sinusitis, unspecified- Primary documented in this encounter
--- OUTSIDE RECORDS SUMMARY | 2024-04-29 05:27 | XMS_ITS | Encounter Summary ---
Author Organization [employer] [facility] Address [address] [place] [address] Care Team Providers Care Lens Cementer Name Role Phone Unavailable Primary Care Provider Unavailabl e Encounter Details Date Type Department Care Team (Latest Contact Info) Description 12/16/1999 Outpatient Historical [facility] Gurwinder Felipe Jr., MD [facility] [place] [phone] Unspecified adjustment reaction (Primary Dx); Depressive disorder, not elsewhere classified Social History Tobacco Use Types Packs/Day Years Used Date Smoking Tobacco: Never Assessed Comments Unknown Sex and Gender Information Value Date Recorded Sex Assigned at Not on file Legal Sex Female 4:17 AM REGISTRY RN Gender Identity Not on file Sexual Orientation Not on file documented as of this encounter Plan of Treatment Not on file documented as of this encounter Visit Diagnoses Diagnosis Unspecified adjustment reaction- Primary Depressive disorder, not elsewhere classified documented in this encounter
--- OUTSIDE RECORDS SUMMARY | 2024-04-29 05:27 | XMS_ITS | Encounter Summary ---
Author Organization [facility] Address [address] [place] [address] Care Team Providers Care Activity Leader Name Role Phone Unavailable Primary Care Provider Unavailabl e Encounter Details Date Type Department Care Team (Late st Contact Info) Description 05/03/2015 Lab Requisition [facility] Laboratory Services [address] [place] [address] Magdi Crawford MD [address] [place] [address] Social History Tobacco Use Types Packs/Day Years Used Date Smoking Tobacco: Never Assessed Comments Unknown Sex and Gender Information Value Date Recorded Sex Assigned at Not on file Legal Sex Female 4:17 AM SUPERVISOR MAINTENANCE Gender Identity Not on file Sexual Orientation Not on file documented as of this encounter Plan of Treatment Not on file documented as of this encounter Procedures Procedure Name Priority Date/Time Associated Diagnosis Comments CBC WITH DIFFERENTIAL Routine 05/03/2015 3:50 AM SUPERVISOR MAINTENANCE VITAMIN D 25 HYDROXY Routine 05/03/2015 3:50 AM SUPERVISOR MAINTENANCE PHOSPHORUS Routine 05/03/2015 3:50 AM SUPERVISOR MAINTENANCE PTH INTACT Routine 05/03/2015 3:50 AM SUPERVISOR MAINTENANCE MAGNESIUM LEVEL Routine 05/03/2015 3:50 AM SUPERVISOR MAINTENANCE COMPREHENSIVE METABOLIC PANEL Routine 05/03/2015 3:50 AM SUPERVISOR MAINTENANCE documented in this encounter Results * (ABNORMAL) VITAMIN D 25 HYDROXY (05/03/2015 3:50 AM SUPERVISOR MAINTENANCE) VITAMIN D TOTAL (25OH) 14(L) 30 - 100 ng/ml 05/03/2015 6:41 AM SUPERVISOR MAINTENANCE [facility] Blood Collection / Unknown 05/03/2015 3:50 AM SUPERVISOR MAINTENANCE 05/03/2015 5:45 AM SUPERVISOR MAINTENANCE Narrative [facility] - 05/03/2015 6:41 AM SUPERVISOR MAINTENANCE Interpretive Data Chart: Deficient: 0 - 20 ng/ml Insufficient: 21 - 29 ng/ml Sufficient: 30 - 100 ng/ml Increased Risk of Hypercalciuria: >100 ng/ml Toxic: >150 ng/ml Magdi Crawford MD CHEMISTRY ORDERABLES Final Result Performing Organization Address [facility] Co de Phone Number [facility] CLIA# [id number] [address] [place] [address] * PTH INTACT (05/03/2015 3:50 AM SUPERVISOR MAINTENANCE) Pathologist [facility] PTH INTACT 68.3 14.0 - 72.0 pg/mL 05/03/2015 6:32 AM [facility] Blood Collection / Unknown 05/03/2015 3:50 AM SUPERVISOR MAINTENANCE 05/03/2015 5:45 AM SUPERVISOR MAINTENANCE us Magdi Crawford MD CHEMISTRY ORDERABLES Final Result Performing Organization Address [facility] Co de Phone Number [facility] CLIA# [id number] [address] [place] [address] * PHOSPHORUS (05/03/2015 3:50 AM SUPERVISOR MAINTENANCE) Pathologist [facility] PHOSPHORUS 2.5 2.5 - 4.9 mg/dL 05/03/2015 6:38 AM [facility] Blood Collection / Unknown 05/03/2015 3:50 AM SUPERVISOR MAINTENANCE 05/03/2015 5:45 AM SUPERVISOR MAINTENANCE us Magdi Crawford MD CHEMISTRY ORDERABLES Final Result Performing Organization Address [facility]/ZIP Co de Phone Number [facility] CLIA# [id number] [address] [place] [address] * MAGNESIUM LEVEL (05/03/2015 3:50 AM SUPERVISOR MAINTENANCE) Pathologist [facility] MAGNESIUM 1.8 1.8 - 2.4 mg/dL 05/03/2015 6:38 AM [facility] Blood Collection / Unknown 05/03/2015 3:50 AM SUPERVISOR MAINTENANCE 05/03/2015 5:45 AM SUPERVISOR MAINTENANCE Magdi Crawford MD CHEMISTRY ORDERABLES Final Result Performing Organization Address [facility] de Phone Number [facility] CLIA# [id number] [address] [place] [address] * (ABNORMAL) CBC WITH DIFFERENTIAL (05/03/2015 3:50 AM SUPERVISOR MAINTENANCE) [facility] WBC 10.1 4.8 - 10.8 K/uL 05/03/2015 6:00 AM [facility] RBC 2.71(L) 4.20 - 5.40 M/uL 05/03/2015 6:00 AM [facility] HEMOGLOBIN 7.5(L) 12.0 - 16.0 g/dL 05/03/2015 6:00 AM [facility] HEMATOCRIT 24.1(L) 36.0 - 46.0 % 05/03/2015 6:00 AM [facility] MCV 88.9 84.0 - 103.0 fL 05/03/2015 6:00 AM [facility] MCH 27.7 27.0 - 34.0 pg 05/03/2015 6:00 AM [facility] MCHC 31.1 30.0 - 35.0 g/dL 05/03/2015 6:00 AM [facility] RDW 16.4(H) 11.0 - 14.5 % 05/03/2015 6:00 AM [facility] RDW-STDEV 52.8 37.0 - 54.0 fL 05/03/2015 6:00 AM [facility] PLATELETS 409 140 - 440 K/uL 05/03/2015 6:00 AM [facility] MPV 9.9 8.9 - 12.8 fL 05/03/2015 6:00 AM [facility] NEUTROPHILS 73 42 - 75 % 05/03/2015 6:00 AM [facility] LYMPHOCYTES 13(L) 24 - 44 % 05/03/2015 6:00 AM [facility] MONOCYTES 10 2 - 10 % 05/03/2015 6:00 AM [facility] EOSINOPHILS 4 0 - 7 % 05/03/2015 6:00 AM [facility] BASOPHILS 0 0 - 1 % 05/03/2015 6:00 AM [facility] NEUTROPHIL ABSOLUTE 7.39 2.00 - 8.00 K/uL 05/03/2015 6:00 AM [facility] LYMPHOCYTE ABSOLUTE 1.28 1.20 - 4.00 K/uL 05/03/2015 6:00 AM [facility] MONOCYTE ABSOLUTE 1.01(H) 0.10 - 0.60 K/uL 05/03/2015 6:00 AM [facility] EOSINOPHIL ABSOLUTE 0.35 0.00 - 0.70 K/uL 05/03/2015 6:00 AM [facility] BASOPHILS ABSOLUTE 0.03 0.00 - 0.20 K/uL 05/03/2015 6:00 AM [facility] IMMATURE GRANULOCYTES 1 0 - 2 % 05/03/2015 6:00 AM [facility] IMMATURE GRANULOCYTES ABSOLUTE 0.07 0.00 - 0.10 K/uL 05/03/2015 6:00 AM [facility] Blood Collection / Unknown 05/03/2015 3:50 AM [facility] 05/03/2015 5:45 AM SUPERVISOR MAINTENANCE us Magdi Crawford MD HEMATOLOGY ORDERABLES Final Result [facility] CLIA# [id number] [place] [address] * (ABNORMAL) COMPREHENSIVE METABOLIC PANEL (05/03/2015 3:50 AM SUPERVISOR MAINTENANCE) SODIUM 140 136 - 145 mmol/L 05/03/2015 6:41 AM [facility] POTASSIUM 3.7 3.5 - 5.1 mmol/L 05/03/2015 6:41 AM [facility] CHLORIDE 105 98 - 107 mmol/L 05/03/2015 6:41 AM [facility] CO2 30 21 - 32 mmol/L 05/03/2015 6:41 AM [facility] CALCIUM 7.7(L) 8.4 - 10.1 mg/dL 05/03/2015 6:41 AM [facility] BUN 14 7 - 17 mg/dL 05/03/2015 6:41 AM [facility] CREATININE 0.38(L) 0.55 - 1.02 mg/dL 05/03/2015 6:41 AM [facility] GLUCOSE 126(H) 74 - 106 mg/dL 05/03/2015 6:41 AM [facility] TOTAL PROTEIN 5.4(L) 6.4 - 8.2 g/dL 05/03/2015 6:41 AM [facility] ALBUMIN 1.6(L) 3.4 - 5.0 g/dL 05/03/2015 6:41 AM [facility] BILIRUBIN TOTAL 0.5 0.2 - 1.0 mg/dL 05/03/2015 6:41 AM [facility] ALKALINE PHOSPHATASE 69 25 - 100 U/L 05/03/2015 6:41 AM [facility] AST 10(L) 15 - 37 U/L 05/03/2015 6:41 AM [facility] ALT 9(L) 13 - 61 U/L 05/03/2015 6:41 AM [facility] GFR >60 >=60 mL/min/1. 73 sq meter 05/03/2015 6:41 AM [facility] [facility] Comment: eGFR has not been [...] GFR, >60 >=60 mL/min/1. 73 sq meter 05/03/2015 6:41 AM [facility] ANION GAP 5(L) 8 - 16 mmol/L 05/03/2015 6:41 AM [facility] Blood Collection / Unknown 05/03/2015 3:50 AM SUPERVISOR MAINTENANCE 05/03/2015 5:45 AM SUPERVISOR MAINTENANCE us Magdi Crawford MD CHEMISTRY ORDERABLES Final Result [facility] CLIA# [id number] [facility] [place] [address] documented in this encounter Visit Diagnoses Not on filedocumented in this encounter
--- OUTSIDE RECORDS SUMMARY | 2024-04-29 05:27 | XMS_ITS | Encounter Summary ---
Author Organization [facility] Address [address] [place] [address] Care Team Providers Care Manufacturing Electrician Name Role Phone Unavailable Primary Care Provider Unavailabl e Encounter Details Date Type Department Care Team (Late st Contact Info) Description 04/22/2015 Lab Requisition [facility] Laboratory Services [facility] [address] [place] [address] Magdi Crawford MD [address] [place] [address] Social History Tobacco Use Types Packs/Day Years Used Date Smoking Tobacco: Never Assessed Comments Unknown Sex and Gender Information Value Date Recorded Sex Assigned at Not on file Legal Sex Female 4:17 AM SUPPLY CHAIN BUYER Gender Identity Not on file Sexual Orientation Not on file documented as of this encounter Plan of Treatment Not on file documented as of this encounter Procedures Procedure Name Priority Date/Time Associated Diagnosis Comments PREALBUMIN Routine 04/22/2015 3:30 AM SUPPLY CHAIN BUYER PHOSPHORUS Routine 04/22/2015 3:30 AM SUPPLY CHAIN BUYER documented in this encounter Results * PHOSPHORUS (04/22/2015 3:30 AM SUPPLY CHAIN BUYER) PHOSPHORUS 2.5 2.5 - 4.9 mg/dL 04/22/2015 5:54 AM SUPPLY CHAIN BUYER [facility] Blood Collection / Unknown 04/22/2015 3:30 AM SUPPLY CHAIN BUYER 04/22/2015 5:07 AM SUPPLY CHAIN BUYER us Magdi Crawford MD CHEMISTRY ORDERABLES Final Result [facility] [employer] [facility] CLIA# [id number] [address] [place] [address] * (ABNORMAL) PREALBUMIN (04/22/2015 3:30 AM SUPPLY CHAIN BUYER) PREALBUMIN 17(L) 20 - 40 mg/dL 04/22/2015 5:54 AM SUPPLY CHAIN BUYER [facility] [employer] [facility] Blood Collection / Unknown 04/22/2015 3:30 AM SUPPLY CHAIN BUYER 04/22/2015 5:07 AM SUPPLY CHAIN BUYER Magdi Crawford MD CHEMISTRY ORDERABLES Final Result Performing Organization Address [facility] Co de Phone Number [facility] [employer] [facility] CLIA# [id number] [address] [place], [place] [id number] documented in this encounter Visit Diagnoses Not on filedocumented in this encounter
== END 2024-04-19 00:04 | disposition short-term general hospital (02) | DRG 287 ==
LOC: ER 18:27 → CCL 22:27 → ICU 04-14 01:22
PROVIDERS: Internal Medicine; Admitting Provider Internal Medicine Cardiovascular Disease; Emergency Provider Emergency Medicine; PCP Family Medicine; Visit Provider Student in an Organized Health Care Education/Training Program
PROC: 4A023N7 Measurement of Cardiac Sampling and Pressure, Left Heart, Percutaneous Approach (ICD-10-PCS; principal; 2024-04-13 23:00)
DX: I47.20 Ventricular tachycardia, unspecified (principal); R00.1 Bradycardia, unspecified; I10 Essential (primary) hypertension; K52.9 Noninfective gastroenteritis and colitis, unspecified; K44.9 Diaphragmatic hernia without obstruction or gangrene; E87.6 Hypokalemia; R79.89 Other specified abnormal findings of blood chemistry; R55 Syncope and collapse; G89.29 Other chronic pain; G25.81 Restless legs syndrome; E78.5 Hyperlipidemia, unspecified; K21.9 Gastro-esophageal reflux disease without esophagitis; F32.9 Major depressive disorder, single episode, unspecified; I16.0 Hypertensive urgency; R51.9 Headache, unspecified; Z87.891 Personal history of nicotine dependence; I25.2 Old myocardial infarction
CPT/HCPCS: 36415; 36416; 70450; 71045; 71275; 74174; 80053; 81001; 82962; 83690; 83735; 83880; 84100; 84145; 84484; 85025; 85610; 85730; 87040; 93005; 93306; 93454; 94640; 94664; 96365; 96367; 96374; 96375; 96376; 97116; 97161; 97165; 99152; 99153; 99285; C1769; C1887; C1894; J0282; J0360; J0780; J1644; J2250; J2270; J2405; J2470; J2543; J3010; J3475; J3480; J3490; J7030; J7626; Q0162; Q9967

== ENCOUNTER 2024-04-27 14:34 | Emergency (ER) | payer MEDICARE, SELFPAY ==
[2024-04-27 14:36] VITALS: BP 182/90; PULSE 73; RESP 16; TEMP 37.3; O2SAT 92; BMI 21.4
--- NOTE | 2024-04-27 14:48 | USR_ITS ---
PROCEDURE INFORMATION: Exam: US Duplex Left Upper Extremity Veins, Limited Exam date and time: 04/27/2024 3:21 PM Age: 78 years old Clinical indication: Edema, localized; Upper extremity, left; Prior surgery; Surgery date: 3-7 days post-operative; Surgery type: Patient had a pacemaker placed right below her RT clavicle last week; Additional info: Swelling in arm TECHNIQUE: Imaging protocol: Real-time duplex ultrasound of the left extremity with 2-D crews scale, color Doppler flow and spectral waveform analysis including responses to compression and other maneuvers (when performed) with image documentation. Limited exam focused on the left upper extremity veins. COMPARISON: CT ang ches abdpel [id number] 04/13/2024 9:03 PM FINDINGS: Left deep veins: Internal jugular, innominate, subclavian, axillary, brachial and ulnar veins patent without thrombus. Normal compressibility, augmentation response and/or Doppler waveforms. Superficial veins: Unremarkable. Visualized cephalic and basilic veins are patent without thrombus. Soft tissues: Unremarkable. US/[place] [id number] IMPRESSION: No sonographic evidence of deep vein thrombosis.
--- NOTE | 2024-04-27 15:17 | ED_ITS ---
HPI - Extremity Problem General: Chief complaint: Extremity Injury, Upper Stated complaint: left hand swelling Time Seen by Provider: 04/27/24 14:36 History of Present Illness: 78-year-old female with a history of fib romyalgia, chronic pain, hyperlipidemia, and recent pacemaker placement who presents emergency room by ambulance with left hand swelling. Her hand and wrist are edematous. She says she had an IV placed there previously. No chest pain. No shortness of breath. Mild erythema. Mild warmth. Related Data Home Medications Medication Instructions Recorded Confirmed calcium 600 mg (as carbonate)-vit 1 tab PO DAILY 03/28/19 04/14/24 D3 10 mcg (400 unit) chewable tablet (Calcium 600 with Vitamin D3) albuterol sulfate 90 mcg/actuation 2 puff inhalation Q6H PRN 07/24/22 04/14/24 aerosol inhaler Shortness Of Breath Or Wheezing atorvastatin 40 mg tablet 40 mg PO BEDTIME 07/24/22 04/14/24 oxycodone 10 mg tablet 10 - 20 mg PO Q4H PRN Pain, 11/19/23 04/14/24 Moderate ropinirole 1 mg tablet 0.5 mg PO BEDTIME 11/19/23 04/14/24 ondansetron 4 mg disintegrating 4 mg PO Q8H PRN Nausea And Vomiting 01/09/24 04/14/24 tablet amlodipine 10 mg tablet 10 mg PO QAM 04/14/24 04/14/24 aripiprazole 5 mg tablet 2.5 mg PO QAM 04/14/24 04/14/24 ferrous gluconate 324 mg (38 mg 324 mg PO BID 04/14/24 04/14/24 iron) tablet levothyroxine 100 mcg tablet 100 mcg PO QAM 04/14/24 04/14/24 lisinopril 30 mg tablet 15 mg PO QAM 04/14/24 04/14/24 melatonin 3 mg tablet 6 mg PO BEDTIME 04/14/24 04/14/24 mirtazapine 7.5 mg tablet 735 mg PO BEDTIME 04/14/24 04/14/24 Previous Rx's Medication Instructions Recorded Monet Heatoner 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 #1 ea 10/03/22 pantoprazole 40 mg tablet,delayed 40 mg PO BID #60 tabs 12/14/23 release sennosides 8.6 mg tablet (senna) 17.2 mg (2 x 8.6 mg) PO BID #60 12/14/23 tabs sucralfate 1 gram tablet 1 g PO AC&BEDTIME #120 tabs 12/14/23 trazodone 50 mg tablet 25 mg (1/2 x 50 mg) PO QPM PRN 01/05/24 insomnia #4 tabs sertraline 25 mg tablet 25 mg PO DAILY #100 tabs 02/15/24 meloxicam 7.5 mg tablet 7.5 mg PO .Twice daily #14 tabs 03/06/24 cyanocobalamin (vitamin B-12) 1,000 mcg PO DAILY #90 tabs 03/28/24 1,000 mcg tablet (Vitamin B-12) budesonide-formoterol HFA 160 2 puff inhalation BID #10.2 grams 04/23/24 mcg-4.5 mcg/actuation aerosol inhaler (Symbicort) cephalexin 500 mg capsule 500 mg PO BID 5 days #10 caps 04/27/24 Allergies Allergy/AdvReac Type Severity Reaction Status Date / Time No Known Allergies Allergy Verified 01/04/24 19:29 Review of Systems Narrative: Constitutional symptoms: Negative except as documented in HPI. Skin symptoms: Negative except as documented in HPI. Eye symptoms: Negative except as documented in HPI. ENMT symptoms: Negative except as documented in HPI. Respiratory symptoms: Negative except as documented in HPI. Cardiovascular symptoms: Negative except as documented in HPI. Gastrointestinal symptoms: Negative except as documented in HPI. Genitourinary symptoms: Negative except as documented in HPI. Musculoskeletal symptoms: Negative except as documented in HPI. Neurologic symptoms: Negative except as documented in HPI. Psychiatric symptoms: Negative except as documented in HPI. Endocrine symptoms: Negative except as documented in HPI. PFSH ED PFSH: Medical History Toe fracture, right Left leg swelling Candidiasis Shortness of breath Cough Sciatica History of ingrowing nail Hammertoe, bilateral Bilateral bunions Left knee DJD Onychocryptosis Chondrocalcinosis Preoperative testing Predislocation syndrome of metatarsophalangeal joint of right foot Metatarsalgia Rash Unsteady gait when walking Leg edema, left Encounter for removal of sutures Leg edema Mitral regurgitation LLL pneumonia Stylohyoid tendonitis Yeast vaginitis Dizziness Urinary incontinence Recurrent UTI Anemia of unknown etiology Depression, major Constipation 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 on CT 12/17 Large hiatal hernia Exocrine pancreatic insufficiency Renal insufficiency Hiatal hernia with GERD Hypothyroidism Enrolled in chronic care management Right knee DJD Osteoporosis Greater trochanteric bursitis Diarrhea Urinary retention Atherosclerotic heart disease of [place] coronary artery with other forms of angina pectoris Abnormal cardiovascular stress test NSTEMI (non-ST elevated myocardial infarction) Hyperlipidemia Hypertension Urgency incontinence Past heart attack Long-term current use of opiate analgesic Pain management contract signed Restless legs syndrome Fibromyalgia Chronic low back pain Dr. Benavidez Rxes pain meds Surgical History S/P foot surgery History of mandibular surgery R jaw--has titanium plate; done for tumor--benign History of bowel resection benign growth H/O ileostomy Hx of appendectomy (~1973) Hx of hysterectomy (~1973) still has ovaries; had hyst due to bleeding; no cancer History of reversal of ileostomy Hx of tubal ligation Hx of foot surgery (~11/2013) RIGHT FOOT Family History Brother , BONE METS Cancer COLON CANCER Mother Heart disease Family history of thyroid problem Grandmother Heart disease Father Hyperlipidemia Bone cancer Social History Smoking and tobacco/nicotine status: former use of tobacco/nicotine Quit status (tobacco/nicotine): has quit using Year quit tobacco: quit 1989 Second hand smoke exposure: No Alcohol intake: never Substance/Drug Use: never Lives independently: Yes Household members: none Marital status: / Number of children: 3 Highest education level completed: Some College, No Degree Current occupational status: retired 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 Skin: warm and dry. There is some edema to the dorsal hand and fingers and wrist. Mild erythema. Mild warmth. Mild tenderness. Good pulses. Head: Normocephalic Neck: Trachea midline Eye: Extraocular movements are intact. Ears, nose, mouth and throat: Oral mucosa moist Respiratory: Respirations are non-labored Musculoskeletal: Normal ROM Neurological: Alert and oriented, No focal neurological deficit observed. Psychiatric: Cooperative, appropriate mood & affect. Course Vital Signs: Vital signs: Vital Signs Temperature 99.1 F 04/27/24 14:36 Pulse Rate 73 04/27/24 14:36 Respiratory Rate 16 04/27/24 14:36 Blood Pressure 182/90 04/27/24 14:36 Pulse Oximetry 92 04/27/24 14:36 Oxygen Delivery Me thod Room Air 04/27/24 14:36 MDM - Extremity (Nontraumatic) Medical Decision Making Ultrasound of left upper extremity shows no venous clots or anything other than just some basic edema. Assessment and plan: Hand edema - Discharged home - Discussed plan with patient. Answered any questions. - Evaluation and treatment of this problem were appropriate in the emergency setting. All radiology interpretation(s) finalized by discharge Discharge Plan Discharge Patient Disposition: Home Clinical Impression: Hand edema Condition: Stable Prescriptions: New cephalexin 500 mg capsule 500 mg PO BID 5 Days Qty: 10 0RF No Action (DME) Budin Hammer 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 See Rx Instructions .Route .MEDSUPPLY Qty: 1 0RF Rx Instructions: As directed by HOME sertraline 25 mg tablet 25 mg PO DAILY Qty: 100 0RF meloxicam 7.5 mg tablet 7.5 mg PO .Twice daily Qty: 14 0RF cyanocobalamin (vitamin B-12) [Vitamin B-12] 1,000 mcg tablet 1,000 mcg PO DAILY Qty: 90 3RF budesonide-formoterol [Symbicort] 160-4.5 mcg/actuation HFA aerosol inhaler 2 puff INHALATION BID Qty: 10.2 5RF Calcium 600 with Vitamin D3 600 mg(1,500mg) -400 unit Tablet,Chewable 1 tab PO DAILY atorvastatin 40 mg tablet 40 mg PO BEDTIME albuterol sulfate 90 mcg/actuation HFA aerosol inhaler 2 puff inhalation Q6H PRN (Reason: Shortness Of Breath Or Wheezing) pantoprazole 40 mg Tablet,Delayed Release (Dr/Ec) 40 mg PO BID Qty: 60 0RF sennosides [senna] 8.6 mg Tablet 17.2 mg PO BID Qty: 60 0RF sucralfate 1 gram Tablet 1 g PO AC&BEDTIME Qty: 120 0RF trazodone 50 mg tablet 25 mg PO QPM PRN (Reason: insomnia) Qty: 4 0RF ondansetron 4 mg tablet,disintegrating 4 mg PO Q8H PRN (Reason: Nausea And Vomiting) ropinirole 1 mg tablet 0.5 mg PO BEDTIME oxycodone 10 mg tablet 10 - 20 mg PO Q4H PRN (Reason: Pain, Moderate) Rx Instructions: TAKE 1 TO 2 TABLETS BY MOUTH EVERY 4 TO 6 HOURS NEEDED FOR PAIN max 6 PER day melatonin 3 mg tablet 6 mg PO BEDTIME levothyroxine 100 mcg tablet 100 mcg PO QAM amlodipine 10 mg tablet 10 mg PO QAM lisinopril 30 mg tablet 15 mg PO QAM aripiprazole 5 mg tablet 2.5 mg PO QAM mirtazapine 7.5 mg tablet 735 mg PO BEDTIME ferrous gluconate 324 mg (38 mg iron) tablet 324 mg PO BID Discharge Orders: Discharge ED (Routine); Ordered 04/27/24 Ordered By: Tory Galvan Referrals: Lynda Lopez MD [Primary Care Provider] - Discharge Diet: Usual diet Discharge Activity: Increase activity as tolerated Patient Instructions: Opioid Safety, Pain Management Activity Restrictions/Additional Instructions: Thank you for choosing [facility] for your healthcare needs today. Please realize this is an emergency room and that we are providing you with a medical screening exam and this may not be complete and all inclusive of all the testing and or work up that you may need to determine your ailment or severity of your illness. You have been screened and evaluated and felt safe for discharge. Health conditions do change or evolve sometimes and as such it is important that you follow up with your Primary Doctor to be re checked, 3-5 days is a general good time frame for follow up. 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
[2024-04-27 16:39] VITALS: BP 183/86; PULSE 70; O2SAT 94
== END 2024-04-27 16:40 | disposition home or self-care (01) ==
PROVIDERS: Emergency Provider Emergency Medicine; PCP Family Medicine
DX: R60.0 Localized edema (principal); Z87.891 Personal history of nicotine dependence; E78.5 Hyperlipidemia, unspecified
CPT/HCPCS: 93971; 99284; J2060

== ENCOUNTER 2024-04-28 20:02 | Emergency (ER) | payer MEDICARE, SELFPAY ==
[2024-04-28 20:09] VITALS: BP 185/75; PULSE 71; RESP 18; TEMP 37.2; O2SAT 93
[2024-04-28 20:26] VITALS: BP 181/107; PULSE 70; RESP 16; TEMP 37.2; O2SAT 94
--- NOTE | 2024-04-28 20:42 | ED_ITS ---
HPI - Extremity Problem 2 General: Chief complaint: Extremity Problem,Nontraumatic Stated complaint: Left Hand Swollen Time Seen by Provider: 04/28/24 20:20 History of Present Illness: Patient returns to the ER with complaints of worsening left hand swelling. She was seen yesterday and had an ultrasound to rule out DVT she was placed on cephalexin she has taken 1 dose. She said the swelling has gotten worse and she has been having fevers for the last couple days. Patient just recently had a pacemaker placed last week at [facility]. Related Data Home Medications Medication Instructions Recorded Confirmed calcium 600 mg (as carbonate)-vit 1 tab PO DAILY 03/28/19 04/14/24 D3 10 mcg (400 unit) chewable tablet (Calcium 600 with Vitamin D3) albuterol sulfate 90 mcg/actuation 2 puff inhalation Q6H PRN 07/24/22 04/14/24 aerosol inhaler Shortness Of Breath Or Wheezing atorvastatin 40 mg tablet 40 mg PO BEDTIME 07/24/22 04/14/24 oxycodone 10 mg tablet 10 - 20 mg PO Q4H PRN Pain, 11/19/23 04/14/24 Moderate ropinirole 1 mg tablet 0.5 mg PO BEDTIME 11/19/23 04/14/24 ondansetron 4 mg disintegrating 4 mg PO Q8H PRN Nausea And Vomiting 01/09/24 04/14/24 tablet amlodipine 10 mg tablet 10 mg PO QAM 04/14/24 04/14/24 aripiprazole 5 mg tablet 2.5 mg PO QAM 04/14/24 04/14/24 ferrous gluconate 324 mg (38 mg 324 mg PO BID 04/14/24 04/14/24 iron) tablet levothyroxine 100 mcg tablet 100 mcg PO QAM 04/14/24 04/14/24 lisinopril 30 mg tablet 15 mg PO QAM 04/14/24 04/14/24 melatonin 3 mg tablet 6 mg PO BEDTIME 04/14/24 04/14/24 mirtazapine 7.5 mg tablet 735 mg PO BEDTIME 04/14/24 04/14/24 Previous Rx's Medication Instructions Recorded Monet Lam Toe Rn Geriatric #1 ea 10/03/22 pantoprazole 40 mg tablet,delayed 40 mg PO BID #60 tabs 12/14/23 release sennosides 8.6 mg tablet (senna) 17.2 mg (2 x 8.6 mg) PO BID #60 12/14/23 tabs sucralfate 1 gram tablet 1 g PO AC&BEDTIME #120 tabs 12/14/23 trazodone 50 mg tablet 25 mg (1/2 x 50 mg) PO QPM PRN 01/05/24 insomnia #4 tabs sertraline 25 mg tablet 25 mg PO DAILY #100 tabs 02/15/24 meloxicam 7.5 mg tablet 7.5 mg PO .Twice daily #14 tabs 03/06/24 cyanocobalamin (vitamin B-12) 1,000 mcg PO DAILY #90 tabs 03/28/24 1,000 mcg tablet (Vitamin B-12) budesonide-formoterol HFA 160 2 puff inhalation BID #10.2 grams 04/23/24 mcg-4.5 mcg/actuation aerosol inhaler (Symbicort) cephalexin 500 mg capsule 500 mg PO BID 5 days #10 caps 04/27/24 Allergies Allergy/AdvReac Type Severity Reaction Status Date / Time No Known Allergies Allergy Verified 04/28/24 20:16 Review of Systems 2 General: Reports: 10 or more systems reviewed and unremarkable except in HPI and below PFSH ED 2 PFSH: Medical History Toe fracture, right Left leg swelling Candidiasis Shortness of breath Cough Sciatica History of ingrowing nail Hammertoe, bilateral Bilateral bunions Left knee DJD Onychocryptosis Chondrocalcinosis Preoperative testing Predislocation syndrome of metatarsophalangeal joint of right foot Metatarsalgia Rash Unsteady gait when walking Leg edema, left Encounter for removal of sutures Leg edema Mitral regurgitation LLL pneumonia Stylohyoid tendonitis Yeast vaginitis Dizziness Urinary incontinence Recurrent UTI Anemia of unknown etiology Depression, major Constipation 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 on CT 12/17 Large hiatal hernia Exocrine pancreatic insufficiency Renal insufficiency Hiatal hernia with GERD Hypothyroidism Enrolled in chronic care management Right knee DJD Osteoporosis Greater trochanteric bursitis Diarrhea Urinary retention Atherosclerotic heart disease of [place] coronary artery with other forms of angina pectoris Abnormal cardiovascular stress test NSTEMI (non-ST elevated myocardial infarction) Hyperlipidemia Hypertension Urgency incontinence Past heart attack Long-term current use of opiate analgesic Pain management contract signed Restless legs syndrome Fibromyalgia Chronic low back pain Dr. Benavidez Rxes pain meds Surgical History S/P foot surgery History of mandibular surgery R jaw--has titanium plate; done for tumor--benign History of bowel resection benign growth H/O ileostomy Hx of appendectomy (~1973) Hx of hysterectomy (~1973) still has ovaries; had hyst due to bleeding; no cancer History of reversal of ileostomy Hx of tubal ligation Hx of foot surgery (~11/2013) RIGHT FOOT Family History Brother , BONE METS Cancer COLON CANCER Mother Heart disease Family history of thyroid problem Grandmother Heart disease Father Hyperlipidemia Bone cancer Social History Smoking and tobacco/nicotine status: former use of tobacco/nicotine Quit status (tobacco/nicotine): has quit using Year quit tobacco: quit 1989 Second hand smoke exposure: No Alcohol intake: never Substance/Drug Use: never Lives independently: Yes Household members: none Marital status: / Number of children: 3 Highest education level completed: Some College, No Degree Current occupational status: retired 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 Physical Exam 2 Const: COMMON NORMALS: no acute distress, average body habitus, patient oriented x3, no limitations, healthy appearing, alert and well nourished HENMT: COMMON NORMALS: normocephalic, atraumatic, hearing grossly normal bilaterally, external ears normal, Normal external nose present and moist oral mucous membranes HEAD & SCALP: normocephalic and atraumatic NOSE: Normal external nose present EXTERNAL EAR: Yes external ears normal Neck/C-Spine: COMMON NORMALS: full ROM, no lymphadenopathy, supple, no meningeal signs, no JVD and Thyroid normal THYROID: Thyroid normal Chest: COMMONS NORMALS: normal inspection of the chest and normal palpation of entire chest wall (Bandage covering pacemaker site left chest clean dry and intact) Resp: COMMON NORMALS: normal respiratory effort, No retractions, No use of accessory muscles and clear to auscultation bilaterally AUSCULTATION: clear to auscultation bilaterally Cardio: COMMON NORMALS: no JVD, regular rate, regular rhythm, S1 normal heart sound present, S2 normal heart sound present, No gallops present (Cardio), No clicks present (Cardio), No murmurs present (Cardio) and No rub (Cardio) R ATE: regular rate RHYTHM: regular rhythm HEART SOUNDS: S1 normal heart sound present and S2 normal heart sound present GI: COMMON NORMALS: Normal to inspection, nondistended, normoactive bowel sounds present, Soft to palpation, non-tender, No hepatosplenomegaly present and no masses PALPATION: Yes Soft to palpation and Yes No hepatosplenomegaly present Extremity: NARRATIVE EXTREMITY EXAM: Dorsum left hand swollen minimal erythema warm to the touch, Neuro: COMMON NORMALS: patient oriented x3 SENSORIUM/ORIENTATION: Yes alert MENINGEAL SIGNS: Yes no meningeal signs Course 2 Vital Signs: Vital signs: Vital Signs Temperature 99.0 F 04/28/24 20:26 Pulse Rate 70 04/28/24 23:17 Respiratory Rate 16 04/28/24 23:17 Blood Pressure 190/87 04/28/24 23:17 Pulse Oximetry 94 04/28/24 23:17 Oxygen Delivery Me thod Room Air 04/28/24 23:17 MDM - Extremity (Nontraumatic) Medical Decision Making Yesterday's visit was reviewed as well as ultrasound, lab work today was unremarkable, patient was given 3.375 g Zosyn in her IV and told to continue using her Keflex. Bandage was removed from her left sided anterior chest pacemaker place which looked good with no signs of active infection. Patient was told to follow-up with her PCP tomorrow for further evaluation and treatment. Medical Records I reviewed the patient's medical records. Lab Data I reviewed the patient's lab results. 04/28/24 20:43 04/28/24 20:43 Laboratory Results WBC 10.73 10^3/uL (3.29-11.43) 04/28/24 20:43 RBC 4.22 10^6/uL (3.85-5.65) 04/28/24 20:43 Hgb 11.40 g/dL (11.27-16.99) 04/28/24 20:43 Hct 35.9 % (36-47) L 04/28/24 20:43 MCV 85.1 fl (85-98) 04/28/24 20:43 MCH 27.0 pg (27-33) 04/28/24 20:43 MCHC 31.8 g/dL (30-55) 04/28/24 20:43 RDW 17.2 % (12.1-15.1) H 04/28/24 20:43 Plt Count 217 10^3/cmm (157-399) 04/28/24 20:43 MPV 10.2 fL (7.4-10.4) 04/28/24 20:43 Neut % (Auto) 71.6 % 04/28/24 20:43 Lymph % (Auto) 14.7 % 04/28/24 20:43 [place] % (Auto) 8.8 % 04/28/24 20:43 Eos % (Auto) 4.3 % 04/28/24 20:43 Baso % (Auto) 0.3 % 04/28/24 20:43 Neut # (Auto) 7.69 10^3/uL (1.8-7.7) 04/28/24 20:43 Lymph # (Auto) 1.6 10^3/uL (0.8-4.8) 04/28/24 20:43 [place] # (Auto) 0.9 10^3/uL (0.2-0.9) 04/28/24 20:43 Eos # (Auto) 0.5 10^3/uL (0.0-0.8) 04/28/24 20:43 Baso # (Auto) 0.0 10^3/uL (0.0-0.1) 04/28/24 20:43 Nucleated RBC % (auto) 0 % 04/28/24 20:43 Nucleated RBCs # 0.0 /100WBC 04/28/24 20:43 Sodium 136 mmol/L (136-145) 04/28/24 20:43 Potassium 4.0 mmol/L (3.5-5.1) 04/28/24 20:43 Chloride 99 mmol/L (98-107) 04/28/24 20:43 Carbon Dioxide 25 mmol/L (22-29) 04/28/24 20:43 Anion Gap 16.0 (5-19) 04/28/24 20:43 BUN 15 mg/dL (8-23) 04/28/24 20:43 Creatinine 1.0 mg/dL (0.5-0.9) H 04/28/24 20:43 GFR Calculation Not Reportable 04/28/24 20:43 Glucose 128 mg/dL (65-115) H 04/28/24 20:43 Calculated Osmolality 284 mOsm/kg (285-295) L 04/28/24 20:43 Lactic Acid 1.1 mmol/L (0.5-2.2) 04/28/24 20:43 Calcium 10.6 mg/dL (8.5-10.5) H 04/28/24 20:43 Total Bilirubin 1.8 mg/dL (0.15-1.2) H 04/28/24 20:43 AST 14 U/L (0-32) 04/28/24 20:43 ALT 6 U/L (0-33) 04/28/24 20:43 Alkaline Phosphatase 86 U/L (35-105) 04/28/24 20:43 C-Reactive Protein 108.5 mg/L (0.0-4.9) H 04/28/24 20:43 Total Protein 6.5 g/dL (6.6-8.7) L 04/28/24 20:43 Albumin 3.9 g/dL (3.5-5.2) 04/28/24 20:43 Globulin 2.6 g/dL (1.3-4.6) 04/28/24 20:43 Procalcitonin 0.13 ng/mL (0-0.5) 04/28/24 20:43 All radiology interpretation(s) finalized by discharge Discharge Plan Discharge Patient Disposition: Home Clinical Impression: Cellulitis Qualifiers: Site of cellulitis: extremity Site of cellulitis of extremity: lower extremity Laterality: left Qualified Code(s): L03.116 - Cellulitis of left lower limb Edema Qualifiers: Edema type: localized Qualified Code(s): R60.0 - Localized edema Condition: Stable Prescriptions: No Action (DME) Monet Lam Toe Rn Geriatric See Rx Instructions .Route .MEDSUPPLY Qty: 1 0RF Rx Instructions: As directed by HOME sertraline 25 mg tablet 25 mg PO DAILY Qty: 100 0RF meloxicam 7.5 mg tablet 7.5 mg PO .Twice daily Qty: 14 0RF cyanocobalamin (vitamin B-12) [Vitamin B-12] 1,000 mcg tablet 1,000 mcg PO DAILY Qty: 90 3RF budesonide-formoterol [Symbicort] 160-4.5 mcg/actuation HFA aerosol inhaler 2 puff INHALATION BID Qty: 10.2 5RF Calcium 600 with Vitamin D3 600 mg(1,500mg) -400 unit Tablet,Chewable 1 tab PO DAILY atorvastatin 40 mg tablet 40 mg PO BEDTIME albuterol sulfate 90 mcg/actuation HFA aerosol inhaler 2 puff inhalation Q6H PRN (Reason: Shortness Of Breath Or Wheezing) pantoprazole 40 mg Tablet,Delayed Release (Dr/Ec) 40 mg PO BID Qty: 60 0RF sennosides [senna] 8.6 mg Tablet 17.2 mg PO BID Qty: 60 0RF sucralfate 1 gram Tablet 1 g PO AC&BEDTIME Qty: 120 0RF trazodone 50 mg tablet 25 mg PO QPM PRN (Reason: insomnia) Qty: 4 0RF ondansetron 4 mg tablet,disintegrating 4 mg PO Q8H PRN (Reason: Nausea And Vomiting) ropinirole 1 mg tablet 0.5 mg PO BEDTIME oxycodone 10 mg tablet 10 - 20 mg PO Q4H PRN (Reason: Pain, Moderate) Rx Instructions: TAKE 1 TO 2 TABLETS BY MOUTH EVERY 4 TO 6 HOURS NEEDED FOR PAIN max 6 PER day melatonin 3 mg tablet 6 mg PO BEDTIME levothyroxine 100 mcg tablet 100 mcg PO QAM amlodipine 10 mg tablet 10 mg PO QAM lisinopril 30 mg tablet 15 mg PO QAM aripiprazole 5 mg tablet 2.5 mg PO QAM mirtazapine 7.5 mg tablet 735 mg PO BEDTIME ferrous gluconate 324 mg (38 mg iron) tablet 324 mg PO BID cephalexin 500 mg capsule 500 mg PO BID 5 Days Qty: 10 0RF Discharge Orders: Discharge ED (Routine); Ordered 04/28/24 Ordered By: Vijay Centeno Referrals: Lynda Lopez MD [Primary Care Provider] - 1 week Patient Instructions: Cellulitis, Edema (ED) Activity Restrictions/Additional Instructions: In your lab work today was essentially unremarkable when compared to previous lab. Your ultrasound was reviewed that showed no blood clot which was performed yesterday. You are given a dose of Zosyn and your IV. Please continue taking your oral antibiotics prescribed yesterday. Please follow-up with your family practice physician for further evaluation treatment. 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
[2024-04-28 20:49] VITALS: BP 160/87; PULSE 70; RESP 16; O2SAT 92
[2024-04-28 20:53] LABS: Basophils % 0.3 %; Eosinophils # 0.5 10^3/uL (0.0-0.8); Eosinophils % 4.3 %; Hematocrit 35.9 % (36-47); Lymphocytes # 1.6 10^3/uL (0.8-4.8); Lymphocytes % 14.7 %; Mean Corpuscular HGB Conc 31.8 g/dL (30-55); Mean Corpuscular Volume 85.1 fl (85-98); Mean Platelet Volume 10.2 fL (7.4-10.4); Monocytes # 0.9 10^3/uL (0.2-0.9); Monocytes % 8.8 %; Neutrophils # 7.69 10^3/uL (1.8-7.7); Neutrophils % 71.6 %; Nucleated Red Blood Cells % 0 %; Platelet Count 217 10^3/cmm (157-399); Red Blood Count 4.22 10^6/uL (3.85-5.65); Red Cell Distribution Width 17.2 % (12.1-15.1); White Blood Count 10.73 10^3/uL (3.29-11.43)
[2024-04-28 21:13] LABS: Lactic Sepsis W/Reflex 1.1 mmol/L (0.5-2.2)
[2024-04-28 21:15] LABS: Alanine Aminotransferase 6 U/L (0-33); Albumin Level 3.9 g/dL (3.5-5.2); Alkaline Phosphatase 86 U/L (35-105); Aspartate Amino Transferase 14 U/L (0-32); Blood Urea Nitrogen 15 mg/dL (8-23); C Reactive Protein 108.5 mg/L (0.0-4.9); Calcium 10.6 mg/dL (8.5-10.5); Chloride 99 mmol/L (98-107); Globulin 2.6 g/dL (1.3-4.6); Glucose 128 mg/dL (65-115); Osmolality Calculated 284 mOsm/kg (285-295); Sodium 136 mmol/L (136-145); Total Bilirubin 1.8 mg/dL (0.15-1.2); Total Protein 6.5 g/dL (6.6-8.7)
[2024-04-28 21:20] LABS: Procalcitonin 0.13 ng/mL (0-0.5)
[2024-04-28 22:06] LABS: Carbon Dioxide 25 mmol/L (22-29); Creatinine Clr Calc Pharmacy 34.4734
[2024-04-28] MEDS: piperacillin-tazobactam 3.375 GM in sodium chloride 0.9% (plus) 50 ML IV (22:22)
[2024-04-28 23:17] VITALS: BP 190/87; PULSE 70; RESP 16; O2SAT 94
[2024-04-29 00:02] VITALS: BP 183/89; PULSE 70; O2SAT 92
== END 2024-04-28 23:50 | disposition home or self-care (01) ==
PROVIDERS: Emergency Provider Emergency Medicine; PCP Family Medicine
DX: L03.116 Cellulitis of left lower limb (principal); R60.0 Localized edema; Z87.891 Personal history of nicotine dependence; E78.5 Hyperlipidemia, unspecified
CPT/HCPCS: 36415; 80053; 83605; 84145; 85025; 86140; 87040; 96365; 99284; J2543

== ENCOUNTER 2024-04-29 21:22 | Emergency (ER) | payer MEDICARE, SELFPAY ==
[2024-04-29 21:24] VITALS: BP 178/101; PULSE 76; RESP 16; TEMP 37.1; O2SAT 95; BMI 21.9
--- NOTE | 2024-04-29 21:37 | W.ED.EXTPRO ---
HPI - Extremity Problem General: Chief complaint: Extremity Problem,Nontraumatic Stated complaint: hand swelling Time Seen by Provider: 04/29/24 21:28 History of Present Illness: Patient presents to the ER for the third time in 3 days with worsening swelling of her left arm now it is swollen all the way up to her bicipital region and painful all the way to this area. She was placed on Keflex 2 days ago and given 1 dose of Zosyn last night she had an ultrasound that was negative for DVT and the swelling keeps on getting worse. She did have a pacemaker placed last week on the left side. Blood cultures were taken yesterday as well as lab work. Related Data Home Medications ?Medication ?Instructions ?Recorded ?Confirmed calcium 600 mg (as carbonate)-vit 1 tab PO DAILY 03/28/19 04/14/24 D3 10 mcg (400 unit) chewable tablet (Calcium 600 with Vitamin D3) albuterol sulfate 90 mcg/actuation 2 puff inhalation Q6H PRN 07/24/22 04/14/24 aerosol inhaler Shortness Of Breath Or Wheezing atorvastatin 40 mg tablet 40 mg PO BEDTIME 07/24/22 04/14/24 oxycodone 10 mg tablet 10 - 20 mg PO Q4H PRN Pain, 11/19/23 04/14/24 Moderate ropinirole 1 mg tablet 0.5 mg PO BEDTIME 11/19/23 04/14/24 ondansetron 4 mg disintegrating 4 mg PO Q8H PRN Nausea And Vomiting 01/09/24 04/14/24 tablet amlodipine 10 mg tablet 10 mg PO QAM 04/14/24 04/14/24 aripiprazole 5 mg tablet 2.5 mg PO QAM 04/14/24 04/14/24 ferrous gluconate 324 mg (38 mg 324 mg PO BID 04/14/24 04/14/24 iron) tablet levothyroxine 100 mcg tablet 100 mcg PO QAM 04/14/24 04/14/24 lisinopril 30 mg tablet 15 mg PO QAM 04/14/24 04/14/24 melatonin 3 mg tablet 6 mg PO BEDTIME 04/14/24 04/14/24 mirtazapine 7.5 mg tablet 735 mg PO BEDTIME 04/14/24 04/14/24 Previous Rx's ?Medication ?Instructions ?Recorded Budin Hammer Toe Engraver Hand Soft Metals #1 ea 10/03/22 pantoprazole 40 mg tablet,delayed 40 mg PO BID #60 tabs 12/14/23 release sennosides 8.6 mg tablet (senna) 17.2 mg (2 x 8.6 mg) PO BID #60 12/14/23 tabs sucralfate 1 gram tablet 1 g PO AC&BEDTIME #120 tabs 12/14/23 trazodone 50 mg tablet 25 mg (1/2 x 50 mg) PO QPM PRN 01/05/24 insomnia #4 tabs sertraline 25 mg tablet 25 mg PO DAILY #100 tabs 02/15/24 meloxicam 7.5 mg tablet 7.5 mg PO .Twice daily #14 tabs 03/06/24 cyanocobalamin (vitamin B-12) 1,000 mcg PO DAILY #90 tabs 03/28/24 1,000 mcg tablet (Vitamin B-12) budesonide-formoterol HFA 160 2 puff inhalation BID #10.2 grams 04/23/24 mcg-4.5 mcg/actuation aerosol inhaler (Symbicort) cephalexin 500 mg capsule 500 mg PO BID 5 days #10 caps 04/27/24 Allergies Allergy/AdvReac Type Severity Reaction Status Date / Time No Known Allergies Allergy Verified 04/29/24 21:29 Review of Systems General: Reports: 10 or more systems reviewed and unremarkable except in HPI and below PFSH ED PFSH: Medical History Toe fracture, right Left leg swelling Candidiasis Shortness of breath Cough Sciatica History of ingrowing nail Hammertoe, bilateral Bilateral bunions Left knee DJD Onychocryptosis Chondrocalcinosis Preoperative testing Predislocation syndrome of metatarsophalangeal joint of right foot Metatarsalgia Rash Unsteady gait when walking Leg edema, left Encounter for removal of sutures Leg edema Mitral regurgitation LLL pneumonia Stylohyoid tendonitis Yeast vaginitis Dizziness Urinary incontinence Recurrent UTI Anemia of unknown etiology Depression, major Constipation 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 on CT 12/17 Large hiatal hernia Exocrine pancreatic insufficiency Renal insufficiency Hiatal hernia with GERD Hypothyroidism Enrolled in chronic care management Right knee DJD Osteoporosis Greater trochanteric bursitis Diarrhea Urinary retention Atherosclerotic heart disease of [place] coronary artery with other forms of angina pectoris Abnormal cardiovascular stress test NSTEMI (non-ST elevated myocardial infarction) Hyperlipidemia Hypertension Urgency incontinence Past heart attack Long-term current use of opiate analgesic Pain management contract signed Restless legs syndrome Fibromyalgia Chronic low back pain Dr. Benavidez Rxes pain meds Surgical History S/P foot surgery History of mandibular surgery R jaw--has titanium plate; done for tumor--benign History of bowel resection benign growth H/O ileostomy Hx of appendectomy (~1973) Hx of hysterectomy (~1973) still has ovaries; had hyst due to bleeding; no cancer History of reversal of ileostomy Hx of tubal ligation Hx of foot surgery (~11/2013) RIGHT FOOT Family History Brother , BONE METS Cancer COLON CANCER Mother Heart disease Family history of thyroid problem Grandmother Heart disease Father Hyperlipidemia Bone cancer Social History Smoking and tobacco/nicotine status: former use of tobacco/nicotine Quit status (tobacco/nicotine): has quit using Year quit tobacco: quit 1989 Second hand smoke exposure: No Alcohol intake: never Substance/Drug Use: never Lives independently: Yes Household members: none Marital status: / Number of children: 3 Highest education level completed: Some College, No Degree Current occupational status: retired 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 Physical Exam Const: COMMON NORMALS: no acute distress, average body habitus, patient oriented x3, no limitations, healthy appearing, alert and well nourished HENMT: COMMON NORMALS: normocephalic, atraumatic, hearing grossly normal bilaterally, external ears normal and Normal external nose present HEAD & SCALP: normocephalic and atraumatic NOSE: Normal external nose present EXTERNAL EAR: Yes external ears normal Neck/C-Spine: COMMON NORMALS: full ROM, no lymphadenopathy, supple, no meningeal signs, no JVD and Thyroid normal THYROID: Thyroid normal Chest: COMMONS NORMALS: normal inspection of the chest and normal palpation of entire chest wall Resp: COMMON NORMALS: normal respiratory effort, No retractions, No use of accessory muscles and clear to auscultation bilaterally AUSCULTATION: clear to auscultation bilaterally Cardio: COMMON NORMALS: no JVD, regular rate, regular rhythm, S1 normal heart sound present, S2 normal heart sound present, No gallops present (Cardio), No clicks present (Cardio), No murmurs present (Cardio) and No rub (Cardio) RATE: regular rate RHYTHM: regular rhythm HEART SOUNDS: S1 normal heart sound present and S2 normal heart sound present GI: COMMON NORMALS: Normal to inspection, nondistended, normoactive bowel sounds present, Soft to palpation, non-tender, No hepatosplenomegaly present and no masses PALPATION: Yes Soft to palpation and Yes No hepatosplenomegaly present Extremity: NARRATIVE EXTREMITY EXAM: Dorsum of left arm forearm and bicipital region area swollen tender to palpate warm to the touch Neuro: COMMON NORMALS: patient oriented x3 SENSORIUM/ORIENTATION: Yes alert MENINGEAL SIGNS: Yes no meningeal signs Course Vital Signs: Vital signs: Vital Signs Temperature 98.7 F 04/29/24 21:24 Pulse Rate 71 04/30/24 00:09 Respiratory Rate 16 04/30/24 00:09 Blood Pressure 207/99 04/30/24 00:09 Pulse Oximetry 93 04/30/24 00:09 Oxygen Delivery Me thod Room Air 04/30/24 00:09 MDM - Extremity (Nontraumatic) Medical Decision Making Ultrasound reviewed from 2 days ago, lab work reviewed from yesterday, lab work reviewed from today, head neck CTA, chest CTA reviewed, patient will continue her antibiotic and call her surgeon who put in the pacemaker tomorrow to try to arrange follow-up with him for further evaluation treatment Medical Records I reviewed the patient's medical records. Lab Data I reviewed the patient's lab results. 04/29/24 21:55 04/29/24 21:55 Radiology Impressions Chest CTA 04/29/24 23:10 IMPRESSION: 1. No pulmonary embolism. 2. Patchy ground-glass opacities in bilateral upper lobes, likely infectious/inflammatory. 3. Mild swelling of the left upper extremity. No organized collections seen. 4. Moderate hiatal hernia. Head/Neck CTA 04/29/24 23:10 IMPRESSION: 1. No large vessel occlusion. 2. No large territorial infarct or intracranial bleed. IMPRESSION: 1. No significant arterial stenosis. 2. Patchy ground-glass opacities in bilateral visualized lungs, likely infectious/inflammatory. COMMENTS: Consistent with the [place] [employer]'s Incidental Findings Committee white paper (J Am Shavon Radiol 2015): In patients aged 35 years and older with an incidental thyroid nodule equal to or greater than 1.[address], MRI or extrathyroidal US, further evaluation with dedicated thyroid US is recommended for patients with normal life expectancy and without comorbidities. For smaller nodules without suspicious features, no further evaluation or follow up is recommended. REFERENCES: NASCET CRITERIA. The degree of stenosis in the cervical segment of the internal carotid artery is based on NASCET criteria. Normal is no stenosis. Mild is less than 50% stenosis. Moderate is 50-69% stenosis. Severe is 70% to 99% stenosis. Total occlusion is no detectable patent lumen. Laboratory Results WBC 9.50 10^3/uL (3.29-11.43) 04/29/24 21:55 RBC 3.72 10^6/uL (3.85-5.65) L 04/29/24 21:55 Hgb 10.20 g/dL (11.27-16.99) L 04/29/24 21:55 Hct 31.5 % (36-47) L 04/29/24 21:55 MCV 84.7 fl (85-98) L 04/29/24 21:55 MCH 27.4 pg (27-33) 04/29/24 21:55 MCHC 32.4 g/dL (30-55) 04/29/24 21:55 RDW 16.9 % (12.1-15.1) H 04/29/24 21:55 Plt Count 243 10^3/cmm (157-399) 04/29/24 21:55 MPV 10.8 fL (7.4-10.4) H 04/29/24 21:55 Neut % (Auto) 66.2 % 04/29/24 21:55 Lymph % (Auto) 17.6 % 04/29/24 21:55 [place] % (Auto) 8.4 % 04/29/24 21:55 Eos % (Auto) 7.4 % 04/29/24 21:55 Baso % (Auto) 0.2 % 04/29/24 21:55 Neut # (Auto) 6.29 10^3/uL (1.8-7.7) 04/29/24 21:55 Lymph # (Auto) 1.7 10^3/uL (0.8-4.8) 04/29/24 21:55 [place] # (Auto) 0.8 10^3/uL (0.2-0.9) 04/29/24 21:55 Eos # (Auto) 0.7 10^3/uL (0.0-0.8) 04/29/24 21:55 Baso # (Auto) 0.0 10^3/uL (0.0-0.1) 04/29/24 21:55 Nucleated RBC % (auto) 0 % 04/29/24 21: Nucleated RBCs # 0.0 /100WBC 04/29/24 21:55 Sodium 138 mmol/L (136-145) 04/29/24 21:55 Potassium 3.9 mmol/L (3.5-5.1) 04/29/24 21:55 Chloride 103 mmol/L (98-107) 04/29/24 21:55 Carbon Dioxide 24 mmol/L (22-29) 04/29/24 21:55 Anion Gap 14.9 (5-19) 04/29/24 21:55 BUN 13 mg/dL (8-23) 04/29/24 21:55 Creatinine 0.9 mg/dL (0.5-0.9) 04/29/24 21:55 GFR Calculation Not Reportable 04/29/24 21:55 Glucose 122 mg/dL (65-115) H 04/29/24 21:55 Calculated Osmolality 287 mOsm/kg (285-295) 04/29/24 21:55 Calcium 9.8 mg/dL (8.5-10.5) 04/29/24 21:55 Total Bilirubin 1.2 mg/dL (0.15-1.2) 04/29/24 21:55 AST 15 U/L (0-32) 04/29/24 21:55 ALT 7 U/L (0-33) 04/29/24 21:55 Alkaline Phosphatase 77 U/L (35-105) 04/29/24 21:55 C-Reactive Protein 101.5 mg/L (0.0-4.9) H 04/29/24 21:55 Total Protein 6.0 g/dL (6.6-8.7) L 04/29/24 21:55 Albumin 3.4 g/dL (3.5-5.2) L 04/29/24 21:55 Globulin 2.6 g/dL (1.3-4.6) 04/29/24 21:55 No radiology studies performed this visit Discharge Plan Discharge Patient Disposition: Home Clinical Impression: Hand edema Condition: Stable Prescriptions: No Action (DME) Monet Heatoner 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 [employer] Metals See Rx Instructions .Route .MEDSUPPLY Qty: 1 0RF Rx Instructions: As directed by HOME sertraline 25 mg tablet 25 mg PO DAILY Qty: 100 0RF meloxicam 7.5 mg tablet 7.5 mg PO .Twice daily Qty: 14 0RF cyanocobalamin (vitamin B-12) [Vitamin B-12] 1,000 mcg tablet 1,000 mcg PO DAILY Qty: 90 3RF budesonide-formoterol [Symbicort] 160-4.5 mcg/actuation HFA aerosol inhaler 2 puff INHALATION BID Qty: 10.2 5RF Calcium 600 with Vitamin D3 600 mg(1,500mg) -400 unit Tablet,Chewable 1 tab PO DAILY atorvastatin 40 mg tablet 40 mg PO BEDTIME albuterol sulfate 90 mcg/actuation HFA aerosol inhaler 2 puff inhalation Q6H PRN (Reason: Shortness Of Breath Or Wheezing) pantoprazole 40 mg Tablet,Delayed Release (Dr/Ec) 40 mg PO BID Qty: 60 0RF sennosides [senna] 8.6 mg Tablet 17.2 mg PO BID Qty: 60 0RF sucralfate 1 gram Tablet 1 g PO AC&BEDTIME Qty: 120 0RF trazodone 50 mg tablet 25 mg PO QPM PRN (Reason: insomnia) Qty: 4 0RF ondansetron 4 mg tablet,disintegrating 4 mg PO Q8H PRN (Reason: Nausea And Vomiting) ropinirole 1 mg tablet 0.5 mg PO BEDTIME oxycodone 10 mg tablet 10 - 20 mg PO Q4H PRN (Reason: Pain, Moderate) Rx Instructions: TAKE 1 TO 2 TABLETS BY MOUTH EVERY 4 TO 6 HOURS NEEDED FOR PAIN max 6 PER day melatonin 3 mg tablet 6 mg PO BEDTIME levothyroxine 100 mcg tablet 100 mcg PO QAM amlodipine 10 mg tablet 10 mg PO QAM lisinopril 30 mg tablet 15 mg PO QAM aripiprazole 5 mg tablet 2.5 mg PO QAM mirtazapine 7.5 mg tablet 735 mg PO BEDTIME ferrous gluconate 324 mg (38 mg iron) tablet 324 mg PO BID cephalexin 500 mg capsule 500 mg PO BID 5 Days Qty: 10 0RF Discharge Orders: Discharge ED (Routine); Ordered 04/30/24 Ordered By: Vijay Centeno Referrals: Lynda Lopez MD [Primary Care Provider] - 1 week Patient Instructions: Edema (ED) Activity Restrictions/Additional Instructions: Your lab work and also the CT angiograms of your head and neck and chest are all unremarkable. They do not show any reason why you are arm is swollen. Please consult the surgeon who put in your pacemaker tomorrow morning during the opening of business hours to see if you can arrange follow-up for further evaluation and treatment. Until then please continue taking your antibiotics as directed. 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
[2024-04-29 21:40] VITALS: BP 168/82; PULSE 91; RESP 16; O2SAT 92
[2024-04-29 22:06] LABS: Basophils % 0.2 %; Eosinophils # 0.7 10^3/uL (0.0-0.8); Eosinophils % 7.4 %; Hematocrit 31.5 % (36-47); Lymphocytes # 1.7 10^3/uL (0.8-4.8); Lymphocytes % 17.6 %; Mean Corpuscular HGB Conc 32.4 g/dL (30-55); Mean Corpuscular Hemoglobin 27.4 pg (27-33); Mean Corpuscular Volume 84.7 fl (85-98); Mean Platelet Volume 10.8 fL (7.4-10.4); Monocytes # 0.8 10^3/uL (0.2-0.9); Monocytes % 8.4 %; Neutrophils # 6.29 10^3/uL (1.8-7.7); Neutrophils % 66.2 %; Nucleated Red Blood Cells % 0 %; Platelet Count 243 10^3/cmm (157-399); Red Blood Count 3.72 10^6/uL (3.85-5.65); Red Cell Distribution Width 16.9 % (12.1-15.1)
[2024-04-29 22:25] LABS: Alanine Aminotransferase 7 U/L (0-33); Albumin Level 3.4 g/dL (3.5-5.2); Alkaline Phosphatase 77 U/L (35-105); Anion Gap 14.9 (5-19); Aspartate Amino Transferase 15 U/L (0-32); Blood Urea Nitrogen 13 mg/dL (8-23); C Reactive Protein 101.5 mg/L (0.0-4.9); Calcium 9.8 mg/dL (8.5-10.5); Carbon Dioxide 24 mmol/L (22-29); Chloride 103 mmol/L (98-107); Creatinine Clr Calc Pharmacy 39.3533; Globulin 2.6 g/dL (1.3-4.6); Glucose 122 mg/dL (65-115); Osmolality Calculated 287 mOsm/kg (285-295); Potassium 3.9 mmol/L (3.5-5.1); Sodium 138 mmol/L (136-145); Total Bilirubin 1.2 mg/dL (0.15-1.2)
[2024-04-29 22:26] VITALS: BP 153/73; PULSE 71; RESP 16; O2SAT 94
--- NOTE | 2024-04-29 23:10 | CTR_ITS ---
PROCEDURE INFORMATION: Exam: CTA Chest With Contrast Exam date and time: 04/29/2024 11:47 PM Age: 78 years old Clinical indication: Other: Pace maker placed with complications; Prior surgery; Surgery date: 3-7 days post-operative; Additional info: Left upper extremity swelling post pacemaker placement TECHNIQUE: Imaging protocol: Computed tomographic angiography of the chest with contrast. Exam focused on the arteries. 3D rendering (Not supervised by radiologist): MIP and/or 3D reconstructed images were created by the technologist. Radiation optimization: All CT scans at this facility use at least one of these dose optimization techniques: automated exposure control; mA and/or kV adjustment per patient size (includes targeted exams where dose is matched to clinical indication); or iterative reconstruction. Contrast material: OMNI 350; Contrast volume: 70 ml; Contrast route: INTRAVENOUS (IV); COMPARISON: CT ang keya thomas [id number] 04/13/2024 9:03 PM RADIATION DOSE METRICS: Total DLP (mGy-cm): 299.33 FINDINGS: Tubes, catheters and devices: A pacemaker device is present, and its leads are in appropriate position. Pulmonary arteries: Normal. No pulmonary emboli. Aorta: Unremarkable. No aortic aneurysm. No aortic dissection. Other arteries: Calcified atheromas of the visualized arteries. Lungs: Patchy ground-glass opacities in bilateral upper lobes. Atelectasis in the dependent portions of both lower lobes. Pleural spaces: No pleural effusions. Heart: Unremarkable. No cardiomegaly. No pericardial effusion. Coronary arteries: There is mild atherosclerotic calcification of the coronary arteries. Lymph nodes: Unremarkable. No enlarged lymph nodes. Diaphragm: A moderate hiatal hernia is present. Bones/joints: Mild curvature of the thoracic spine convex to the right. The thoracic spine demonstrates mild degenerative changes at multiple levels. Soft tissues: Mild subcutaneous fat stranding of the left upper extremity. CT/CT angio chest [id number] IMPRESSION: 1. No pulmonary embolism. 2. Patchy ground-glass opacities in bilateral upper lobes, likely infectious/inflammatory. 3. Mild swelling of the left upper extremity. No organized collections seen. 4. Moderate hiatal hernia.
--- NOTE | 2024-04-29 23:10 | CTR_ITS ---
PROCEDURE INFORMATION: Exam: CTA Head With Contrast, Arteriography Exam date and time: 04/29/2024 11:39 PM Age: 78 years old Clinical indication: Other: Left upper extremity swelling post pacemaker placement; Prior surgery; Surgery date: 3-7 days post-operative TECHNIQUE: Imaging protocol: Computed tomographic angiography of the head with contrast. Exam focused on the arteries. 3D rendering (Not supervised by radiologist): MIP and/or 3D reconstructed images were created by the technologist. Radiation optimization: All CT scans at this facility use at least one of these dose optimization techniques: automated exposure control; mA and/or kV adjustment per patient size (includes targeted exams where dose is matched to clinical indication); or iterative reconstruction. Contrast material: OMNI 350; Contrast volume: 60 ml; Contrast route: INTRAVENOUS (IV); COMPARISON: CT head wo con* [id number] 04/16/2024 6:28 PM RADIATION DOSE METRICS: Total DLP (mGy-cm): 1047.13 FINDINGS: ANTERIOR CIRCULATION: Right internal carotid artery: Calcified atheroma of the right cavernous ICA but no significant stenosis. Right middle cerebral artery: No occlusion or significant stenosis. No aneurysm. Right anterior cerebral artery: No occlusion or significant stenosis. No aneurysm. Left internal carotid artery: Calcified atheroma of the left cavernous ICA but no significant stenosis. Left middle cerebral artery: No occlusion or significant stenosis. No aneurysm. Left anterior cerebral artery: No occlusion or significant stenosis. No aneurysm. POSTERIOR CIRCULATION: Right vertebral artery: No occlusion or significant stenosis. No aneurysm. Left vertebral artery: No occlusion or significant stenosis. No aneurysm. Basilar artery: No occlusion or significant stenosis. No aneurysm. Right posterior cerebral artery: No occlusion or significant stenosis. No aneurysm. Left posterior cerebral artery: No occlusion or significant stenosis. No aneurysm. Brain: Stable small retro cerebellar arachnoid cyst. Age related diffuse parenchymal volume loss. There are bilateral periventricular white matter and centrum semiovale hypodensities, consistent with chronic ischemic small vessel disease. No recent infarct, intracranial bleed or mass effect. Cerebral ventricles: Ex vacuo dilatation of the ventricles. Bones/joints: Unremarkable. No acute fracture. Soft tissues: Unremarkable. PROCEDURE INFORMATION: Exam: CTA Neck With Contrast Exam date and time: 04/29/2024 11:39 PM Age: 78 years old Clinical indication: Other: Left upper extremity swelling post pacemaker placement; Prior surgery; Surgery date: 3-7 days post-operative TECHNIQUE: Imaging protocol: Computed tomographic angiography of the neck with contrast. Exam focused on the cervical segments of the vasculature. 3D rendering (Not supervised by radiologist): MIP and/or 3D reconstructed images were created by the technologist. Radiation optimization: All CT scans at this facility use at least one of these dose optimization techniques: automated exposure control; mA and/or kV adjustment per patient size (includes targeted exams where dose is matched to clinical indication); or iterative reconstruction. Contrast material: OMNI 350; Contrast volume: 60 ml; Contrast route: INTRAVENOUS (IV); COMPARISON: CT cervical spin wo con* [id number] 11/19/2023 12:49 AM RADIATION DOSE METRICS: Total DLP (mGy-cm): 0.01 FINDINGS: Tubes, catheters and devices: Bilateral upper lungs patchy ground-glass opacities left chest pacemaker. Right common carotid artery: No stenosis. No dissection or occlusion. Right internal carotid artery: Calcified atheroma of the right proximal ICA but no significant stenosis. Right external carotid artery: No occlusion or stenosis of the origin. Left common carotid artery: Calcified atheroma of the left carotid bulb but no significant stenosis. Left internal carotid artery: No stenosis of the extracranial segment. No dissection or occlusion. Left external carotid artery: No occlusion or stenosis of the origin. Right vertebral artery: No stenosis. No dissection or occlusion. Left vertebral artery: No stenosis. No dissection or occlusion. Thyroid: Right thyroid nodule measuring 7 mm. Soft tissues: Normal. No significant soft tissue swelling. Bones/joints: The cervical spine demonstrates mild degenerative changes at multiple levels. CT/CT angio headneck* [id number] IMPRESSION: 1. No large vessel occlusion. 2. No large territorial infarct or intracranial bleed. IMPRESSION: 1. No significant arterial stenosis. 2. Patchy ground-glass opacities in bilateral visualized lungs, likely infectious/inflammatory. COMMENTS: Consistent with the [employer]'s Incidental Findings Committee white paper (J Am Shavon Radiol 2015): In patients aged 35 years and older with an incidental thyroid nodule equal to or greater than 1.[address], MRI or extrathyroidal US, further evaluation with dedicated thyroid US is recommended for patients with normal life expectancy and without comorbidities. For smaller nodules without suspicious features, no further evaluation or follow up is recommended. REFERENCES: NASCET CRITERIA. The degree of stenosis in the cervical segment of the internal carotid artery is based on NASCET criteria. Normal is no stenosis. Mild is less than 50% stenosis. Moderate is 50-69% stenosis. Severe is 70% to 99% stenosis. Total occlusion is no detectable patent lumen.
[2024-04-29 23:15] VITALS: BP 176/81; PULSE 70; O2SAT 94
[2024-04-30] MEDS: iohexol 350 mg/mL 500 mL Btl (per mL) IV ×2 (00:02→00:05)
[2024-04-30 00:09] VITALS: BP 207/99; PULSE 71; RESP 16; O2SAT 93
[2024-04-30] MEDS: hyDRALAzine 20 mg/mL INJ 1 mL 10 MG IVP (01:22)
[2024-04-30 01:25] VITALS: BP 179/120; PULSE 79; RESP 18; O2SAT 95
[2024-04-30 01:52] VITALS: BP 193/71; PULSE 88; RESP 16; O2SAT 93
--- NOTE | 2024-04-30 01:56 | PC.NURSE ---
PROVIDER AWARE OF PTS ELEVATED BP. PROVIDER OKAYED D/C
== END 2024-04-30 01:58 | disposition home or self-care (01) ==
PROVIDERS: Emergency Provider Emergency Medicine; PCP Family Medicine
DX: R60.0 Localized edema (principal); Z87.891 Personal history of nicotine dependence; I25.118 Atherosclerotic heart disease of native coronary artery with other forms of angina pectoris; I10 Essential (primary) hypertension
CPT/HCPCS: 36415; 70496; 70498; 71275; 80053; 85025; 86140; 96374; 99285; J0360

== ENCOUNTER 2024-05-09 13:08 | Emergency (ER) | payer MEDICARE, SELFPAY ==
[2024-05-09] VITALS (14 sets, daily range): BP systolic 132–230; BP diastolic 67–120; PULSE 70–83; RESP 12–21; TEMP 36.3; O2SAT 90–99; BMI 21.4
--- NOTE | 2024-05-09 13:11 | ECG_ITS ---
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 Support Engineer: : [id number] Requested By: Art Angel Order Number: [id number] Soledad MD: ARNOLD ALBERTS Measurements Intervals [place] Rate: 84 P: 137 CA: 267 QRS: -55 QRSD: 146 T: -32 QT: 476 QTc: 564 Interpretive Statements ELECTRONIC ATRIAL PACEMAKER RIGHT BUNDLE BRANCH BLOCK [120+ ms QRS DURATION, UPRIGHT V1, 40+ ms S IN I/aVL/V4/V5/V6] LEFT ANTERIOR FASCICULAR BLOCK [QRS AXIS <= -45, QR IN I, RS IN II] MODERATE VOLTAGE CRITERIA FOR LVH, CONSIDER NORMAL VARIANT [MEETS CRITERIA IN ONE OF: R(aVL), S(V1), R(V5), R(V5/V6)+S(V1)] Compared to ECG 04/15/2024 16:56:08 Left anterior fascicular block now present Sinus bradycardia no longer present Electronically Signed On 05-10-2024 19:18:20 MAKE UP MAN by ARNOLD ALBERTS [email or web address]
--- NOTE | 2024-05-09 13:30 | XR_ITS ---
WS: [id number] XR chest 1V portable [id number] REASON FOR EXAM: Weakness FINDINGS: Since the previous examination 04/13/2024, a cardiac device is in place over the left chest with trans left subclavian vein leads to the right atrium and right ventricle. Otherwise the chest is unchanged compared to the previous examination of 04/13/2024. Mild cardiomegaly. Paraesophageal gastric hernia. No acute pulmonary parenchymal or pleural abnormality. Dextroscoliosis and degenerative spondylosis of the thoracic spine. XR/XR chest 1V portable [id number] IMPRESSION: No acute chest abnormality as above.
--- NOTE | 2024-05-09 13:30 | ED_ITS ---
Documented by User: Art Desai DO 05/10/24 06:22 HPI - Weakness 2 General: Chief complaint: Weakness Stated complaint: weakness - post op pacemaker 2 wks Time Seen by Provider: 05/09/24 13:29 History of Present Illness: 78-year-old female who presents to the e mergency room complaining of dry heaving. She has been doing that for the last several hours. 2 weeks ago she had a pacemaker placed she denies any fevers bites develop did not actually bring anything up she denies any hematemesis or coffee-ground emesis or any hemoptysis no shortness of breath no abdominal pain or chest pain. Denies dysuria urgency or frequency. Associated symptoms: Reports nausea; Denies chest pain, chills, melena, dysuria or fever(s) Review of Systems 2 Const: Denies: fever(s) or chills Card: Denies: chest pain Resp: Denies: dyspnea GI: Reports: nausea; Denies: abdominal pain, hematemesis, coffee ground emesis, hematochezia or melena : Denies: dysuria, urinary frequency or urinary urgency Musc: Denies: neck pain or back pain Skin/Breast: Denies: rash PFSH ED 2 PFSH: Medical History Toe fracture, right Left leg swelling Candidiasis Shortness of breath Cough Sciatica History of ingrowing nail Hammertoe, bilateral Bilateral bunions Left knee DJD Onychocryptosis Chondrocalcinosis Preoperative testing Predislocation syndrome of metatarsophalangeal joint of right foot Metatarsalgia Rash Unsteady gait when walking Leg edema, left Encounter for removal of sutures Leg edema Mitral regurgitation LLL pneumonia Stylohyoid tendonitis Yeast vaginitis Dizziness Urinary incontinence Recurrent UTI Anemia of unknown etiology Depression, major Constipation 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 on CT 12/17 Large hiatal hernia Exocrine pancreatic insufficiency Renal insufficiency Hiatal hernia with GERD Hypothyroidism Enrolled in chronic care management Right knee DJD Osteoporosis Greater trochanteric bursitis Diarrhea Urinary retention Atherosclerotic heart disease of [place] coronary artery with other forms of angina pectoris Abnormal cardiovascular stress test NSTEMI (non-ST elevated myocardial infarction) Hyperlipidemia Hypertension Urgency incontinence Past heart attack Long-term current use of opiate analgesic Pain management contract signed Restless legs syndrome Fibromyalgia Chronic low back pain Dr. Benavidez Rxes pain meds Surgical History S/P foot surgery History of mandibular surgery R jaw--has titanium plate; done for tumor--benign History of bowel resection benign growth H/O ileostomy Hx of appendectomy (~1973) Hx of hysterectomy (~1973) still has ovaries; had hyst due to bleeding; no cancer History of reversal of ileostomy Hx of tubal ligation Hx of foot surgery (~11/2013) RIGHT FOOT Family History Brother , BONE METS Cancer COLON CANCER Mother Heart disease Family history of thyroid problem Grandmother Heart disease Father Hyperlipidemia Bone cancer Social History Smoking and tobacco/nicotine status: former use of tobacco/nicotine Quit status (tobacco/nicotine): has quit using Year quit tobacco: quit 1989 Second hand smoke exposure: No Alcohol intake: never Substance/Drug Use: never Lives independently: Yes Household members: none Marital status: / Number of children: 3 Highest education level completed: Some College, No Degree Current occupational status: retired 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 Physical Exam 2 Const: GENERAL APPEARANCE: cooperative ORIENTATION/CONSCIOUSNESS: Yes awake, Yes oriented to person, Yes oriented to place and Yes oriented to time HENMT: COMMON NORMALS: normocephalic, atraumatic and hearing grossly normal bilaterally HEAD & SCALP: normocephalic and atraumatic Resp: COMMON NORMALS: normal respiratory effort, No retractions, No use of accessory muscles and clear to auscultation bilaterally AUSCULTATION: clear to auscultation bilaterally Cardio: COMMON NORMALS: regular rate, regular rhythm and No murmurs present (Cardio) RATE: regular rate RHYTHM: regular rhythm GI: COMMON NORMALS: Soft to palpation and No hepatosplenomegaly present A USCULTATION: Yes normoactive bowel sounds PALPATION: Yes Soft to palpation, No Tenderness to palpation present (GI), No Guarding due to palpation present (GI) and Yes No hepatosplenomegaly present Extremity: COMMON NORMALS: normal to inspection, capillary refill normal, no clubbing, cyanosis or edema, no calf tenderness and no pedal edema Neuro: SENSORIUM/ORIENTATION: Yes oriented to person, Yes oriented to place and Yes oriented to time Skin: COMMON NORMALS: no rashes or lesions noted GENERAL SKIN EXAM: no rashes or lesions noted Course 2 Vital Signs: Vital signs: Vital Signs Temperature 97.4 F L 05/09/24 13:19 Pulse Rate 70 05/09/24 22:18 Respiratory Rate 20 H 05/09/24 21:30 Blood Pressure 150/76 05/09/24 22:18 Pulse Oximetry 94 05/09/24 22:18 Oxygen Delivery Me thod Room Air 05/09/24 20:30 MDM - Weakness Medical Decision Making Care signed out to Dr. Cristina at change of shift. See final notes for diagnosis and disposition. I assumed care of this patient at shift change. Patient is here with her daughter. Daughter states that her mom has had nausea, vomiting and weakness intermittently for the past 6 months. She feels that her mother is getting to the point where she needs skilled nursing placement. They have addressed this in the past however she did not not want to pay [id number] for the skilled nursing. She had been unable to keep down her blood pressure medications amlodipine and lisinopril as her blood pressure was quite high when she arrived here. CT scan of the abdomen pelvis revealed some possible colitis. Head CT was normal. Chest x-ray normal. COVID influenza and RSV negative. CBC normal. CMP normal except for slightly low potassium of 3.0. Troponins were 27 and 25. Urinalysis normal. Patient did receive Haldol, Ativan, Compazine, labetalol and hydralazine. Systolic blood pressures down to 120. The nausea has subsided. I discussed this case with Dr. Bowden, hospitalist. He states that the hospital is full and we have been boarding patients and be best if we could get her home because we would not have director social service until Sunday anyway. I discussed this with her daughter. We will discharge her. I did prescribe Zofran. Lab Data 05/09/24 13:53 05/09/24 13:53 Radiology Impressions Chest X-Ray 05/09/24 13:30 IMPRESSION: No acute chest abnormality as above. Head CT 05/09/24 14:26 IMPRESSION: 1. No evidence of intracranial hemorrhage or mass effect. 2. No acute intracranial findings. Abdomen/Pelvis CT 05/09/24 16:38 IMPRESSION: 1. Relative thickening along the distal descending and proximal sigmoid colon may be on the basis of underdistention or possibly colitis. 2. Additional chronic and incidental findings as above. Laboratory Results WBC 6.31 10^3/uL (3.29-11.43) 05/09/24 13:53 RBC 4.74 10^6/uL (3.85-5.65) 05/09/24 13:53 Hgb 12.90 g/dL (11.27-16.99) 05/09/24 13:53 Hct 40.2 % (36-47) 05/09/24 13:53 MCV 84.8 fl (85-98) L 05/09/24 13:53 MCH 27.2 pg (27-33) 05/09/24 13:53 MCHC 32.1 g/dL (30-55) 05/09/24 13:53 RDW 17.2 % (12.1-15.1) H 05/09/24 13:53 Plt Count 295 10^3/cmm (157-399) 05/09/24 13:53 MPV 9.5 fL (7.4-10.4) 05/09/24 13:53 Neut % (Auto) 57.5 % 05/09/24 13:53 Lymph % (Auto) 25.8 % 05/09/24 13:53 [place] % (Auto) 9.7 % 05/09/24 13:53 Eos % (Auto) 6.3 % 05/09/24 13:53 Baso % (Auto) 0.5 % 05/09/24 13:53 Neut # (Auto) 3.63 10^3/uL (1.8-7.7) 05/09/24 13:53 Lymph # (Auto) 1.6 10^3/uL (0.8-4.8) 05/09/24 13:53 [place] # (Auto) 0.6 10^3/uL (0.2-0.9) 05/09/24 13:53 Eos # (Auto) 0.4 10^3/uL (0.0-0.8) 05/09/24 13:53 Baso # (Auto) 0.0 10^3/uL (0.0-0.1) 05/09/24 13:53 Nucleated RBC % (auto) 0 % 05/09/24 13:53 Nucleated RBCs # 0.0 /100WBC 05/09/24 13:53 Sodium 140 mmol/L (136-145) 05/09/24 13:53 Potassium 3.0 mmol/L (3.5-5.1) L 05/09/24 13:53 Chloride 95 mmol/L (98-107) L 05/09/24 13:53 Carbon Dioxide 27 mmol/L (22-29) 05/09/24 13:53 Anion Gap 21.0 (5-19) H 05/09/24 13:53 BUN 15 mg/dL (8-23) 05/09/24 13:53 Creatinine 1.0 mg/dL (0.5-0.9) H 05/09/24 13:53 GFR Calculation Not Reportable 05/09/24 13:53 Glucose 82 mg/dL (65-115) 05/09/24 13:53 Calculated Osmolality 290 mOsm/kg (285-295) 05/09/24 13:53 Calcium 10.1 mg/dL (8.5-10.5) 05/09/24 13:53 Total Bilirubin 1.8 mg/dL (0.15-1.2) H 05/09/24 13:53 AST 15 U/L (0-32) 05/09/24 13:53 ALT < 5 U/L (0-33) 05/09/24 13:53 Alkaline Phosphatase 109 U/L (35-105) H 05/09/24 13:53 Troponin T Baseline 27 ng/L (0-10) H 05/09/24 13:53 Troponin T 120 Minute 24.64 ng/L (0-10) H 05/09/24 15:52 Delta Troponin T -2.36 ABS# (0-10) L 05/09/24 15:52 Troponin T Hi Sens 6Hr 22.48 ng/L (0-10) H 05/09/24 20:17 Troponin T Hi Sens 6Hr Delta -4.52 ng/L (0-12) L 05/09/24 20:17 Total Protein 6.5 g/dL (6.6-8.7) L 05/09/24 13:53 Albumin 4.1 g/dL (3.5-5.2) 05/09/24 13:53 Globulin 2.4 g/dL (1.3-4.6) 05/09/24 13:53 Urine Color Yellow (Yellow) 05/09/24 15:18 Urine Appearance Clear (CLEAR) 05/09/24 15:18 Urine pH 7.0 (5-7) 05/09/24 15:18 Ur Specific [place] 1.014 (1.005-1.030) 05/09/24 15:18 Urine Protein Negative (Negative) 05/09/24 15:18 Urine Glucose (UA) Negative (Normal) 05/09/24 15:18 Urine Ketones Trace (Negative) 05/09/24 15:18 Urine Blood Negative (Negative) 05/09/24 15:18 Urine Nitrate Negative (Negative) 05/09/24 15:18 Urine Bilirubin Negative (Negative) 05/09/24 15:18 Urine Urobilinogen 0.2 mg/dL (Negative) 05/09/24 15:18 Ur Leukocyte Esterase Negative (Negative) 05/09/24 15:18 Urine RBC 0-2 /hpf (0-2) 05/09/24 15:18 Urine WBC 0-5 /hpf (0-5) 05/09/24 15:18 Ur Squamous Epith Cells 0-5 /hpf (0-5) 05/09/24 15:18 Amorphous Sediment Not Reportable 05/09/24 15:18 Urine Bacteria None seen /hpf (NONE) 05/09/24 15:18 Hyaline Casts 0.81 /lpf 05/09/24 15:18 Urine Opiates Screen Negative ng/mL (Negative) 05/09/24 15:19 Ur Barbiturates Screen Negative ng/mL (Negative) 05/09/24 15:19 Ur Phencyclidine Scrn Negative ng/mL (Negative) 05/09/24 15:19 Ur Amphetamines Screen Negative ng/mL (Negative) 05/09/24 15:19 U Benzodiazepines Scrn Negative ng/mL (Negative) 05/09/24 15:19 Urine Cocaine Screen Negative ng/mL (Negative) 05/09/24 15:19 U Marijuana (THC) Screen Negative ng/mL (Negative) 05/09/24 15:19 Coronavirus (PCR) Negative (Negative) 05/09/24 13:17 Influenza A (PCR) Negative (Negative) 05/09/24 13:17 Influenza Type B (PCR) Negative (Negative) 05/09/24 13:17 RSV (PCR) Negative (Negative) 05/09/24 13:17 Discharge Plan Discharge Patient Disposition: Home Clinical Impression: Nausea & vomiting Qualifiers: Vomiting type: unspecified Qualified Code(s): R11.2 - Nausea with vomiting, unspecified Condition: Stable Prescriptions: New ondansetron 4 mg tablet,disintegrating 4 mg PO Q6H PRN (Reason: nausea and vomiting) Qty: 30 0RF No Action (DME) Budin Hammer Toe Delivery Driver/Customer Service See Rx Instructions .Route .MEDSUPPLY Qty: 1 0RF Rx Instructions: As directed by HOME sertraline 25 mg tablet 25 mg PO DAILY Qty: 100 0RF cyanocobalamin (vitamin B-12) [Vitamin B-12] 1,000 mcg tablet 1,000 mcg PO DAILY Qty: 90 3RF budesonide-formoterol [Symbicort] 160-4.5 mcg/actuation HFA aerosol inhaler 2 puff INHALATION BID Qty: 10.2 5RF Calcium 600 with Vitamin D3 600 mg(1,500mg) -400 unit Tablet,Chewable 1 tab PO DAILY albuterol sulfate 90 mcg/actuation HFA aerosol inhaler 2 puff inhalation Q6H PRN (Reason: Shortness Of Breath Or Wheezing) pantoprazole 40 mg Tablet,Delayed Release (Dr/Ec) 40 mg PO BID Qty: 60 0RF sertraline 100 mg tablet 100 mg PO QAM levothyroxine 75 mcg tablet 75 mcg PO QAM lisinopril 10 mg tablet 10 mg PO DAILY ropinirole 1 mg tablet 0.5 mg PO BEDTIME oxycodone 10 mg tablet 10 - 20 mg PO Q4H PRN (Reason: Pain, Moderate) Rx Instructions: TAKE 1 TO 2 TABLETS BY MOUTH EVERY 4 TO 6 HOURS NEEDED FOR PAIN max 6 PER day amlodipine 10 mg tablet 10 mg PO QAM aripiprazole 5 mg tablet 2.5 mg PO QAM ferrous gluconate 324 mg (38 mg iron) tablet 324 mg PO BID Discharge Orders: Discharge ED (Routine); Ordered 05/09/24 Ordered By: Dangelo Cristina Referrals: Lynda Lopez MD [Primary Care Provider] - Activity Restrictions/Additional Instructions: Follow-up with your primary care provider on Sunday. Print Language: Grenadian Coding Level of Care Code ED [employer] for Chg Fwd Related Data Home Medications ?Medication ?Instructions ?Recorded ?Confirmed calcium 600 mg (as carbonate)-vit 1 tab PO DAILY 03/2805/09/24 D3 10 mcg (400 unit) chewable tablet (Calcium 600 with Vitamin D3) albuterol sulfate 90 mcg/actuation 2 puff inhalation Q 6H PRN 07/24/22 05/09/24 aerosol inhaler Shortness Of Breath Or Wheez ing oxycodone 10 mg tablet 10 - 20 mg PO Q4H PRN Pain, 11/19/23 05/09/24 Moderate ropinirole 1 mg tablet 0.5 mg PO BEDTIME 11/19/23 0 05/09/24 amlodipine 10 mg tablet 10 mg PO QAM 04/14/24 aripiprazole 5 mg tablet 2.5 mg PO QAM 04/14/2405/09 ferrous gluconate 324 mg (38 mg 324 mg PO BID 04/14/24 05/09/24 iron) tablet levothyroxine 75 mcg tablet 75 mcg PO QAM 05/09/24 lisinopril 10 mg tablet 10 mg PO DAILY 05/09/2404/26 sertraline 100 mg tablet 100 mg PO QAM 05/09/2405/09 Previous Rx's ?Medication ?Instructions ?Recorded Budin Hammer Toe Delivery Driver/Customer Service #1 ea 10/03/22 pantoprazole 40 mg tablet,delayed 40 mg PO BID #60 tab s 12/14/23 release sertraline 25 mg tablet 25 mg PO DAILY #100 tabs cyanocobalamin (vitamin B-12) 1,000 mcg PO DAILY #90 t abs 03/28/24 1,000 mcg tablet (Vitamin B-12) budesonide-formoterol HFA 160 2 puff inhalation BID #1 0.2 grams 04/23/24 mcg-4.5 mcg/actuation aerosol inhaler (Symbicort) ondansetron 4 mg disintegrating 4 mg PO Q6H PRN nausea and 05/09/24 tablet vomiting #30 tabs Allergies Allergy/AdvReac Type Severity Reaction Status Date / Time No Known Allergies Allergy Verified 04/29/24 21:29 Documented by User: Dangelo Cristina MD 05/09/24 19:17 HPI - Weakness 2 General: Chief complaint: Weakness Stated complaint: weakness - post op pacemaker 2 wks Time Seen by Provider: 05/09/24 13:29 PFSH ED 2 PFSH: Medical History Toe fracture, right Left leg swelling Candidiasis Shortness of breath Cough Sciatica History of ingrowing nail Hammertoe, bilateral Bilateral bunions Left knee DJD Onychocryptosis Chondrocalcinosis Preoperative testing Predislocation syndrome of metatarsophalangeal joint of right foot Metatarsalgia Rash Unsteady gait when walking Leg edema, left Encounter for removal of sutures Leg edema Mitral regurgitation LLL pneumonia Stylohyoid tendonitis Yeast vaginitis Dizziness Urinary incontinence Recurrent UTI Anemia of unknown etiology Depression, major Constipation 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 on CT 12/17 Large hiatal hernia Exocrine pancreatic insufficiency Renal insufficiency Hiatal hernia with GERD Hypothyroidism Enrolled in chronic care management Right knee DJD Osteoporosis Greater trochanteric bursitis Diarrhea Urinary retention Atherosclerotic heart disease of [place] coronary artery with other forms of angina pectoris Abnormal cardiovascular stress test NSTEMI (non-ST elevated myocardial infarction) Hyperlipidemia Hypertension Urgency incontinence Past heart attack Long-term current use of opiate analgesic Pain management contract signed Restless legs syndrome Fibromyalgia Chronic low back pain Dr. Benavidez Rxes pain meds Surgical History S/P foot surgery History of mandibular surgery R jaw--has titanium plate; done for tumor--benign History of bowel resection benign growth H/O ileostomy Hx of appendectomy (~1973) Hx of hysterectomy (~1973) still has ovaries; had hyst due to bleeding; no cancer History of reversal of ileostomy Hx of tubal ligation Hx of foot surgery (~11/2013) RIGHT FOOT Family History Brother , BONE METS Cancer COLON CANCER Mother Heart disease Family history of thyroid problem Grandmother Heart disease Father Hyperlipidemia Bone cancer Social History Smoking and tobacco/nicotine status: former use of tobacco/nicotine Quit status (tobacco/nicotine): has quit using Year quit tobacco: quit 1989 Second hand smoke exposure: No Alcohol intake: never Substance/Drug Use: never Lives independently: Yes Household members: none Marital status: / Number of children: 3 Highest education level completed: Some College, No Degree Current occupational status: retired 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 Patient is here with her daughter. Daughter states that her mom has had nausea, vomiting and weakness intermittently for the past 6 months. She feels that her mother is getting to the point where she needs skilled nursing placement. They have addressed this in the past however she did not not want to pay [id number] for the skilled nursing. She had been unable to keep down her blood pressure medications amlodipine and lisinopril as her blood pressure was quite high when she arrived here. CT scan of the abdomen pelvis revealed some possible colitis. Head CT was normal. Chest x-ray normal. COVID influenza and RSV negative. CBC normal. CMP normal except for slightly low potassium of 3.0. Troponins were 27 and 25. Urinalysis normal. Patient did receive Haldol, Ativan, Compazine, labetalol and hydralazine. Systolic blood pressures down to 120. The nausea has subsided. I discussed this case with Dr. Bowden, hospitalist. He states that the hospital is full and we have been boarding patients and be best if we could get her home because we would not have director social service until Sunday anyway. I discussed this with her daughter. We will discharge her. I did prescribe Zofran. Lab Data 05/09/24 13:53 05/09/24 13:53 Radiology Impressions Chest X-Ray 05/09/24 13:30 IMPRESSION: No acute chest abnormality as above. Head CT 05/09/24 14:26 IMPRESSION: 1. No evidence of intracranial hemorrhage or mass effect. 2. No acute intracranial findings. Abdomen/Pelvis CT 05/09/24 16:38 IMPRESSION: 1. Relative thickening along the distal descending and proximal sigmoid colon may be on the basis of underdistention or possibly colitis. 2. Additional chronic and incidental findings as above. Laboratory Results WBC 6.31 10^3/uL (3.29-11.43) 05/09/24 13:53 RBC 4.74 10^6/uL (3.85-5.65) 05/09/24 13:53 Hgb 12.90 g/dL (11.27-16.99) 05/09/24 13:53 Hct 40.2 % (36-47) 05/09/24 13:53 MCV 84.8 fl (85-98) L 05/09/24 13:53 MCH 27.2 pg (27-33) 05/09/24 13:53 MCHC 32.1 g/dL (30-55) 05/09/24 13:53 RDW 17.2 % (12.1-15.1) H 05/09/24 13:53 Plt Count 295 10^3/cmm (157-399) 05/09/24 13:53 MPV 9.5 fL (7.4-10.4) 05/09/24 13:53 Neut % (Auto) 57.5 % 05/09/24 13:53 Lymph % (Auto) 25.8 % 05/09/24 13:53 [place] % (Auto) 9.7 % 05/09/24 13:53 Eos % (Auto) 6.3 % 05/09/24 13:53 Baso % (Auto) 0.5 % 05/09/24 13:53 Neut # (Auto) 3.63 10^3/uL (1.8-7.7) 05/09/24 13:53 Lymph # (Auto) 1.6 10^3/uL (0.8-4.8) 05/09/24 13:53 [place] # (Auto) 0.6 10^3/uL (0.2-0.9) 05/09/24 13:53 Eos # (Auto) 0.4 10^3/uL (0.0-0.8) 05/09/24 13:53 Baso # (Auto) 0.0 10^3/uL (0.0-0.1) 05/09/24 13:53 Nucleated RBC % (auto) 0 % 05/09/24 13:53 Nucleated RBCs # 0.0 /100WBC 05/09/24 13:53 Sodium 140 mmol/L (136-145) 05/09/24 13:53 Potassium 3.0 mmol/L (3.5-5.1) L 05/09/24 13:53 Chloride 95 mmol/L (98-107) L 05/09/24 13:53 Carbon Dioxide 27 mmol/L (22-29) 05/09/24 13:53 Anion Gap 21.0 (5-19) H 05/09/24 13:53 BUN 15 mg/dL (8-23) 05/09/24 13:53 Creatinine 1.0 mg/dL (0.5-0.9) H 05/09/24 13:53 GFR Calculation Not Reportable 05/09/24 13:53 Glucose 82 mg/dL (65-115) 05/09/24 13:53 Calculated Osmolality 290 mOsm/kg (285-295) 05/09/24 13:53 Calcium 10.1 mg/dL (8.5-10.5) 05/09/24 13:53 Total Bilirubin 1.8 mg/dL (0.15-1.2) H 05/09/24 13:53 AST 15 U/L (0-32) 05/09/24 13:53 ALT < 5 U/L (0-33) 05/09/24 13:53 Alkaline Phosphatase 109 U/L (35-105) H 05/09/24 13:53 Troponin T Baseline 27 ng/L (0-10) H 05/09/24 13:53 Troponin T 120 Minute 24.64 ng/L (0-10) H 05/09/24 15:52 Delta Troponin T -2.36 ABS# (0-10) L 05/09/24 15:52 Troponin T Hi Sens 6Hr 22.48 ng/L (0-10) H 05/09/24 20:17 Troponin T Hi Sens 6Hr Delta -4.52 ng/L (0-12) L 05/09/24 20:17 Total Protein 6.5 g/dL (6.6-8.7) L 05/09/24 13:53 Albumin 4.1 g/dL (3.5-5.2) 05/09/24 13:53 Globulin 2.4 g/dL (1.3-4.6) 05/09/24 13:53 Urine Color Yellow (Yellow) 05/09/24 15:18 Urine Appearance Clear (CLEAR) 05/09/24 15:18 Urine pH 7.0 (5-7) 05/09/24 15:18 Ur Specific [place] 1.014 (1.005-1.030) 05/09/24 15:18 Urine Protein Negative (Negative) 05/09/24 15:18 Urine Glucose (UA) Negative (Normal) 05/09/24 15:18 Urine Ketones Trace (Negative) 05/09/24 15:18 Urine Blood Negative (Negative) 05/09/24 15:18 Urine Nitrate Negative (Negative) 05/09/24 15:18 Urine Bilirubin Negative (Negative) 05/09/24 15:18 Urine Urobilinogen 0.2 mg/dL (Negative) 05/09/24 15:18 Ur Leukocyte Esterase Negative (Negative) 05/09/24 15:18 Urine RBC 0-2 /hpf (0-2) 05/09/24 15:18 Urine WBC 0-5 /hpf (0-5) 05/09/24 15:18 Ur Squamous Epith Cells 0-5 /hpf (0-5) 05/09/24 15:18 Amorphous Sediment Not Reportable 05/09/24 15:18 Urine Bacteria None seen /hpf (NONE) 05/09/24 15:18 Hyaline Casts 0.81 /lpf 05/09/24 15:18 Urine Opiates Screen Negative ng/mL (Negative) 05/09/24 15:19 Ur Barbiturates Screen Negative ng/mL (Negative) 05/09/24 15:19 Ur Phencyclidine Scrn Negative ng/mL (Negative) 05/09/24 15:19 Ur Amphetamines Screen Negative ng/mL (Negative) 05/09/24 15:19 U Benzodiazepines Scrn Negative ng/mL (Negative) 05/09/24 15:19 Urine Cocaine Screen Negative ng/mL (Negative) 05/09/24 15:19 U Marijuana (THC) Screen Negative ng/mL (Negative) 05/09/24 15:19 Coronavirus (PCR) Negative (Negative) 05/09/24 13:17 Influenza A (PCR) Negative (Negative) 05/09/24 13:17 Influenza Type B (PCR) Negative (Negative) 05/09/24 13:17 RSV (PCR) Negative (Negative) 05/09/24 13:17 All radiology interpretation(s) finalized by discharge Discharge Plan Discharge Patient Disposition: Home Clinical Impression: Nausea & vomiting Qualifiers: Vomiting type: unspecified Qualified Code(s): R11.2 - Nausea with vomiting, unspecified Condition: Stable Prescriptions: New ondansetron 4 mg tablet,disintegrating 4 mg PO Q6H PRN (Reason: nausea and vomiting) Qty: 30 0RF No Action (DME) Budin Hammer Toe Delivery Driver/Customer Service See Rx Instructions .Route .MEDSUPPLY Qty: 1 0RF Rx Instructions: As directed by HOME sertraline 25 mg tablet 25 mg PO DAILY Qty: 100 0RF cyanocobalamin (vitamin B-12) [Vitamin B-12] 1,000 mcg tablet 1,000 mcg PO DAILY Qty: 90 3RF budesonide-formoterol [Symbicort] 160-4.5 mcg/actuation HFA aerosol inhaler 2 puff INHALATION BID Qty: 10.2 5RF Calcium 600 with Vitamin D3 600 mg(1,500mg) -400 unit Tablet,Chewable 1 tab PO DAILY albuterol sulfate 90 mcg/actuation HFA aerosol inhaler 2 puff inhalation Q6H PRN (Reason: Shortness Of Breath Or Wheezing) pantoprazole 40 mg Tablet,Delayed Release (Dr/Ec) 40 mg PO BID Qty: 60 0RF sertraline 100 mg tablet 100 mg PO QAM levothyroxine 75 mcg tablet 75 mcg PO QAM lisinopril 10 mg tablet 10 mg PO DAILY ropinirole 1 mg tablet 0.5 mg PO BEDTIME oxycodone 10 mg tablet 10 - 20 mg PO Q4H PRN (Reason: Pain, Moderate) Rx Instructions: TAKE 1 TO 2 TABLETS BY MOUTH EVERY 4 TO 6 HOURS NEEDED FOR PAIN max 6 PER day amlodipine 10 mg tablet 10 mg PO QAM aripiprazole 5 mg tablet 2.5 mg PO QAM ferrous gluconate 324 mg (38 mg iron) tablet 324 mg PO BID Discharge Orders: Discharge ED (Routine); Ordered 05/09/24 Ordered By: Dangelo Cristina Referrals: Lynda Lopez MD [Primary Care Provider] - Activity Restrictions/Additional Instructions: Follow-up with your primary care provider on Sunday. Print Language: Grenadian Coding Level of Care Code ED Shop [employer] for Chg Fwd Related Data Home Medications ?Medication ?Instructions ?Recorded ?Confirmed calcium 600 mg (as carbonate)-vit 1 tab PO DAILY 03/2805/09/24 D3 10 mcg (400 unit) chewable tablet (Calcium 600 with Vitamin D3) albuterol sulfate 90 mcg/actuation 2 puff inhalation Q 6H PRN 07/24/22 05/09/24 aerosol inhaler Shortness Of Breath Or Wheez ing oxycodone 10 mg tablet 10 - 20 mg PO Q4H PRN Pain, 11/19/23 05/09/24 Moderate ropinirole 1 mg tablet 0.5 mg PO BEDTIME 11/19/23 0 05/09/24 amlodipine 10 mg tablet 10 mg PO QAM 04/14/24 aripiprazole 5 mg tablet 2.5 mg PO QAM 04/14/2405/09 ferrous gluconate 324 mg (38 mg 324 mg PO BID 04/14/24 05/09/24 iron) tablet levothyroxine 75 mcg tablet 75 mcg PO QAM 05/09/24 lisinopril 10 mg tablet 10 mg PO DAILY 05/09/2404/26 sertraline 100 mg tablet 100 mg PO QAM 05/09/2405/09 Previous Rx's ?Medication ?Instructions ?Recorded Monet Lam Toe Delivery Driver/Customer Service #1 ea 10/03/22 pantoprazole 40 mg tablet,delayed 40 mg PO BID #60 tab s 12/14/23 release sertraline 25 mg tablet 25 mg PO DAILY #100 tabs cyanocobalamin (vitamin B-12) 1,000 mcg PO DAILY #90 t abs 03/28/24 1,000 mcg tablet (Vitamin B-12) budesonide-formoterol HFA 160 2 puff inhalation BID #1 0.2 grams 04/23/24 mcg-4.5 mcg/actuation aerosol inhaler (Symbicort) ondansetron 4 mg disintegrating 4 mg PO Q6H PRN nausea and 05/09/24 tablet vomiting #30 tabs Allergies Allergy/AdvReac Type Severity Reaction Status Date / Time No Known Allergies Allergy Verified 04/29/24 21:29
[2024-05-09 14:01] LABS: Basophils % 0.5 %; Eosinophils # 0.4 10^3/uL (0.0-0.8); Eosinophils % 6.3 %; Hematocrit 40.2 % (36-47); Lymphocytes # 1.6 10^3/uL (0.8-4.8); Lymphocytes % 25.8 %; Mean Corpuscular HGB Conc 32.1 g/dL (30-55); Mean Corpuscular Hemoglobin 27.2 pg (27-33); Mean Corpuscular Volume 84.8 fl (85-98); Mean Platelet Volume 9.5 fL (7.4-10.4); Monocytes # 0.6 10^3/uL (0.2-0.9); Monocytes % 9.7 %; Neutrophils # 3.63 10^3/uL (1.8-7.7); Neutrophils % 57.5 %; Nucleated Red Blood Cells % 0 %; Platelet Count 295 10^3/cmm (157-399); Red Blood Count 4.74 10^6/uL (3.85-5.65); Red Cell Distribution Width 17.2 % (12.1-15.1); White Blood Count 6.31 10^3/uL (3.29-11.43)
[2024-05-09 14:20] LABS: Alanine Aminotransferase < 5 U/L (0-33); Albumin Level 4.1 g/dL (3.5-5.2); Alkaline Phosphatase 109 U/L (35-105); Aspartate Amino Transferase 15 U/L (0-32); Blood Urea Nitrogen 15 mg/dL (8-23); Calcium 10.1 mg/dL (8.5-10.5); Carbon Dioxide 27 mmol/L (22-29); Chloride 95 mmol/L (98-107); Creatinine Clr Calc Pharmacy 35.1481; Globulin 2.4 g/dL (1.3-4.6); Glucose 82 mg/dL (65-115); Osmolality Calculated 290 mOsm/kg (285-295); Sodium 140 mmol/L (136-145); Total Bilirubin 1.8 mg/dL (0.15-1.2); Total Protein 6.5 g/dL (6.6-8.7); Troponin(5th) Baseline 27 ng/L (0-10)
--- NOTE | 2024-05-09 14:22 | PC.PHAR ---
Patient states she isn't sure of her medication names and isn't emil of the last time she has taken any . I did her Med list off her external med list. I have left a message with her Daughter listed on her contacts ,waiting to hear back.
--- NOTE | 2024-05-09 14:26 | CT_ITS ---
WS: [id number] CT HEAD TECHNIQUE: Noncontrast CT of the head obtained from the skullbase to the vertex. CLINICAL INFORMATION: headache weakness COMPARISON: 04/16/2024 DLP: 1760.[address] scans at [facility] use at least one of these dose optimization techniques: automated exposure control; mA and/or kV adjustment per patient size (includes targeted exams where dose is matched to clinical indication); or iterative reconstruction. FINDINGS: No evidence of intracranial hemorrhage or mass effect. Ventricular system and basal cisterns are patent. Mild small vessel changes with mild parenchymal volume loss. No extra-axial fluid collections. No evidence of mass or mass effect. Paranasal sinuses and mastoid air cells are well aerated. .Normal visualized soft tissues. CT/CT head wo con* [id number] IMPRESSION: 1. No evidence of intracranial hemorrhage or mass effect. 2. No acute intracranial findings.
[2024-05-09] MEDS: labetalol 5 mg/mL SDV 20mL 10 MG IVP (15:08)
[2024-05-09] MEDS: hyDRALAzine 20 mg/mL INJ 1 mL IVP (15:10)
--- NOTE | 2024-05-09 15:30 | ECG_ITS ---
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1945 Requested By: Art Angel Order Number: [id number] Soledad MD: ARNOLD ALBERTS Measurements Intervals [place] Rate: 69 P: 180 MD: 233 QRS: -43 QRSD: 136 T: -48 QT: 510 QTc: 549 Interpretive Statements ELECTRONIC ATRIAL PACEMAKER LEFT AXIS DEVIATION [QRS AXIS < -30] RIGHT BUNDLE BRANCH BLOCK [120+ ms QRS DURATION, UPRIGHT V1, 40+ ms S IN I/aVL/V4/V5/V6] VOLTAGE CRITERIA FOR LVH [MEETS CRITERIA IN ONE OF: R(aVL), S(V1), R(V5), R(V5/V6)+S(V1)] MODERATE T-WAVE ABNORMALITY, CONSIDER LATERAL ISCHEMIA [-0.1+ mV T-WAVE IN I/aVL/V5/V6] MODERATE T-WAVE ABNORMALITY, CONSIDER INFERIOR ISCHEMIA [-0.1+ mV T-WAVE IN II/aVF] Electronically Signed On 05-10-2024 19:33:29 SUPERVISOR TUBING by ARNOLD ALBERTS [email or web address] [id number]
[2024-05-09 15:55] LABS: Bilirubin Urine Negative (Negative); Blood Urine Negative (Negative); Glucose Urine UA Negative (Normal); Ketones Urine Trace (Negative); Leukocyte Esterase Urine Negative (Negative); Nitrate Urine Negative (Negative); Protein Urine Negative (Negative); Specific Gravity, Urine 1.014 (1.005-1.030); Urine Appearance Clear (CLEAR); Urine Color Yellow (Yellow); Urobilinogen Urine 0.2 mg/dL (Negative)
[2024-05-09] MEDS: prochlorperazine 10 mg/2 mL Inj IVP (16:14)
[2024-05-09 16:15] LABS: Troponin 5 2HR 24.64 ng/L (0-10); Troponin 5 2HR Delta -2.36 ABS# (0-10)
[2024-05-09 16:30] LABS: Influenza A NEGATIVE (Negative); Influenza B NEGATIVE (Negative); Respiratory Syncytial Virus Ce NEGATIVE (Negative); SARS-CoV-2 PCR NEGATIVE (Negative)
[2024-05-09 16:37] LABS: Add Urine Microscopic? YES; Bacteria Urine None Seen /hpf; Hyaline Casts Urine 0.81 /lpf; RBC Urine 0-2 /hpf (0-2); Squamous Epithelial Cell Urine 0-5 /hpf (0-5); WBC Urine 0-5 /hpf (0-5)
--- NOTE | 2024-05-09 16:38 | CTR_ITS ---
PROCEDURE INFORMATION: Exam: CT Abdomen And Pelvis With Contrast Exam date and time: 05/09/2024 5:07 PM Age: 78 years old Clinical indication: Abdominal pain; Generalized; Prior surgery; Surgery date: 6+ months; Surgery type: Hyster; Additional info: Abd pain TECHNIQUE: Imaging protocol: Computed tomography of the abdomen and pelvis with contrast. Radiation optimization: All CT scans at this facility use at least one of these dose optimization techniques: automated exposure control; mA and/or kV adjustment per patient size (includes targeted exams where dose is matched to clinical indication); or iterative reconstruction. Contrast material: OMNIPAQUE 350; Contrast volume: 80 ml; Contrast route: INTRAVENOUS (IV); COMPARISON: CT ang ches abdpel [id number] 04/13/2024 9:03 PM RADIATION DOSE METRICS: Total DLP (mGy-cm): 294.5 FINDINGS: Tubes, catheters and devices: Partially visualized AICD leads. Lungs: Mild right basilar platelike atelectasis versus scarring. Diaphragm: Large hiatal hernia containing portion of the stomach and distal pancreas. Liver: Normal. No mass. Gallbladder and biliary ducts: Normal. No calcified stones. No ductal dilation. Pancreas: Unremarkable. No ductal dilatation. Spleen: Normal. No splenomegaly. Adrenal glands: Normal. No mass. Kidneys and ureters: Right renal subcentimeter hypodensity too small to characterize and statistically likely benign and requires no dedicated imaging follow-up. Otherwise unremarkable. Stomach and bowel: Stable postsurgical change. No dilatation to suggest obstruction. Colonic diverticulosis without findings of diverticulitis. Relative thickening of the underdistended distal descending and proximal sigmoid colon without pericolonic fat stranding. Appendix: No evidence of appendicitis. Intraperitoneal space: Unremarkable. No free air. No significant fluid collection. Vasculature: Moderate systemic atherosclerosis without abdominal aortic aneurysm. Lymph nodes: Unremarkable. No enlarged lymph nodes. Urinary bladder: Unremarkable as visualized. Reproductive: The uterus is surgically absent. Stable simple appearing 3 cm right adnexal cyst requires no dedicated imaging follow-up. Bones/joints: Diffuse bony demineralization without acute fracture. Stable nonaggressive sclerotic focus at the inferior right L1 vertebral body. Levoconvex thoracolumbar spine curvature. Degenerative changes along the spine. Soft tissues: Lower ventral abdominal wall postsurgical scarring. CT/CT abdomen pelvis w con* [id number] IMPRESSION: 1. Relative thickening along the distal descending and proximal sigmoid colon may be on the basis of underdistention or possibly colitis. 2. Additional chronic and incidental findings as above.
[2024-05-09] MEDS: morphine 4 mg/mL SDV 1 mL IVP (16:49)
[2024-05-09] MEDS: LORazepam 2 mg/mL INJ 1 mL IVP (16:51)
[2024-05-09] MEDS: haloperidol inj 5 mg/mL INJ 1 mL 2.5 MG IVP (16:53)
[2024-05-09] MEDS: iohexol 350 mg/mL 500 mL Btl (per mL) IV (17:11)
[2024-05-09 17:31] LABS: Amphetamines Screen Urine Negative (Negative); Barbiturates Screen Urine Negative (Negative); Benzodiazepines Screen Urine Negative (Negative); Cocaine Screen Urine Negative (Negative); Opiate Screen Urine Negative (Negative); PCP Screen Urine Negative (Negative); THC Screen Urine Negative (Negative)
[2024-05-09 20:47] LABS: Troponin 5 6HR 22.48 ng/L (0-10)
[2024-05-09 20:51] LABS: Troponin 5 6HR Delta -4.52 ng/L (0-12)
== END 2024-05-09 21:45 | disposition home or self-care (01) ==
PROVIDERS: Family Medicine; Emergency Provider Emergency Medicine; PCP Family Medicine
DX: R11.2 Nausea with vomiting, unspecified (principal); Z11.52 Encounter for screening for COVID-19; Z87.891 Personal history of nicotine dependence; E78.5 Hyperlipidemia, unspecified; I10 Essential (primary) hypertension
CPT/HCPCS: 36415; 70450; 71045; 74177; 80053; 80306; 81001; 84484; 85025; 87637; 93005; 96374; 96375; 99285; J0360; J0780; J1630; J2060; J2270; J3490

== ENCOUNTER 2024-05-11 16:57 | Observation (INO) | payer MEDICARE, SELFPAY ==
[2024-05-11] VITALS (12 sets, daily range): BP systolic 163–229; BP diastolic 79–114; PULSE 51–95; RESP 17–22; TEMP 36.4–36.7; O2SAT 93–98; BMI 19.8
--- NOTE | 2024-05-11 17:16 | CTR_ITS ---
PROCEDURE INFORMATION: Exam: CT Cervical Spine Without Contrast Exam date and time: 05/11/2024 5:42 PM Age: 78 years old Clinical indication: Injury or trauma; Blunt trauma; Fall at home with headstrike. Hematoma to occipital. C/O dizziness. History of multiple myeloma. TECHNIQUE: Imaging protocol: Computed tomography of the cervical spine without contrast. Axial, coronal and sagittal reformatted images were created and reviewed. Radiation optimization: All CT scans at this facility use at least one of these dose optimization techniques: automated exposure control; mA and/or kV adjustment per patient size (includes targeted exams where dose is matched to clinical indication); or iterative reconstruction. COMPARISON: CT cervical spin wo con* [id number] 11/19/2023 12:49 AM RADIATION DOSE METRICS: Total DLP (mGy-cm): 154 FINDINGS: Bones: Osteopenia. Mild exaggeration of the normal cervical lordosis. No CT evidence of acute fracture, dislocation or subluxation. Minimal retrolisthesis of C3 on C4, C4 on C5 and C5 on C6. Alignment otherwise anatomic. Minimal dextroscoliosis. Vertebral body heights maintained. Mild multilevel degenerative changes, characterized by disc space narrowing, osteophytosis and uncovertebral and facet joint hypertrophy. Mild multilevel spinal canal and neural foraminal narrowing. Thyroid gland: 1 cm low-density right thyroid nodule (no follow-up is indicated based on the imaging appearance). Lungs: Lung apices are normal. Soft tissues: Grossly unremarkable. CT/CT cervical spin wo con* [id number] IMPRESSION: 1. No CT evidence of acute cervical spine traumatic injury. 2. Additional findings, as above.
--- NOTE | 2024-05-11 17:16 | CTR_ITS ---
PROCEDURE INFORMATION: Exam: CT Head Without Contrast Exam date and time: 05/11/2024 5:42 PM Age: 78 years old Clinical indication: Injury or trauma; Blunt trauma (contusions or hematomas); Fall at home with headstrike. Hematoma to occipital. C/O dizziness. History of multiple myeloma. TECHNIQUE: Imaging protocol: Computed tomography of the head without contrast. Axial, coronal and sagittal reformatted images were created and reviewed. Radiation optimization: All CT scans at this facility use at least one of these dose optimization techniques: automated exposure control; mA and/or kV adjustment per patient size (includes targeted exams where dose is matched to clinical indication); or iterative reconstruction. COMPARISON: CT head wo con* [id number] 05/09/2024 2:36 PM RADIATION DOSE METRICS: Total DLP (mGy-cm): 1096.8 FINDINGS: Brain: Patchy areas of hypoattenuation in the periventricular and subcortical white matter, consistent with chronic small vessel ischemic disease. No CT evidence of acute intracranial hemorrhage or acute territorial infarction. No significant mass effect or midline shift. Basal cisterns patent. Cerebral ventricles: Prominence of the cortical sulci, cisterns and ventricular system, consistent with cerebral and cerebellar volume loss. Paranasal sinuses: Unremarkable. No fluid levels. Mastoid air cells: Grossly unremarkable. Bones: Unremarkable. No acute fracture. Soft tissues: Right posterior parieto-occipital scalp hematoma. Vasculature: Calcific atherosclerotic disease in the cavernous internal carotid arteries, as well as the vertebro-basilar system. CT/CT head wo con* [id number] IMPRESSION: 1. No CT evidence of acute intracranial pathology. 2. Additional findings, as above.
--- NOTE | 2024-05-11 17:16 | XRR_ITS ---
PROCEDURE INFORMATION: Exam: XR Chest Exam date and time: 05/11/2024 5:32 PM Age: 78 years old Clinical indication: Chest pressure; Prior surgery; Surgery date: <1 month; Surgery type: Pacemaker x 1 mo ago; Anterior rib pain post fall TECHNIQUE: Imaging protocol: Radiologic exam of the chest. Views: 1 view. COMPARISON: CR XR chest 1V portable [id number] 05/09/2024 1:36 PM FINDINGS: Tubes, catheters and devices: Cardiac pacemaker/ICD is in place. Lungs: No significant active pulmonary pathology. Pleural spaces: No pleural effusion. Heart/Mediastinum: Large hiatal hernia again noted. Cardiomediastinal contours accentuated by low lung volumes and AP technique. Bones/joints: No significant pathology. XR/XR chest 1V portable [id number] IMPRESSION: No acute pathology or significant interval change. Large hiatal hernia and cardiac pacemaker/ICD again noted.
--- NOTE | 2024-05-11 17:16 | XRR_ITS ---
PROCEDURE INFORMATION: Exam: XR Left Elbow Exam date and time: 05/11/2024 5:35 PM Age: 78 years old Clinical indication: Pain; Hematoma to posterior left elbow post fall TECHNIQUE: Imaging protocol: Radiologic exam of the left elbow. Views: 3 or more views. COMPARISON: [place] [id number] 04/27/2024 3:21 PM FINDINGS: Bones/joints: Minimal articular osteophyte formation. Joint spaces are preserved. No acute fracture or dislocation. Soft tissues: Posterior soft tissue swelling of the distal upper arm. Pleural spaces: No pleural effusion. XR/XR elbow LT min 3V* [id number] IMPRESSION: Posterior soft tissue swelling of the distal upper arm. No fracture evident.
--- NOTE | 2024-05-11 17:19 | ECG_ITS ---
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 Measurements Intervals [place] Rate: 78 P: 216 [place]: 193 QRS: -50 QRSD: 132 T: 225 QT: 412 QTc: 471 Interpretive Statements ELECTRONIC ATRIAL PACEMAKER RIGHT BUNDLE BRANCH BLOCK [120+ ms QRS DURATION, UPRIGHT V1, 40+ ms S IN I/aVL/V4/V5/V6] LEFT ANTERIOR FASCICULAR BLOCK [QRS AXIS <= -45, QR IN I, RS IN II] LEFT VENTRICULAR HYPERTROPHY AND ST-T CHANGE [VOLTAGE CRITERIA PLUS ST/T ABNORMALITY] Compared to ECG 05/09/2024 15:52:16 Left anterior fascicular block now present ST (T wave) deviation now present Left-axis deviation no longer present T-wave abnormality no longer present Possible ischemia no longer present Electronically Signed On 05-11-2024 18:48:11 GEOMAGNETIST by Philly Mijares M.D. [id number] [id number]
--- NOTE | 2024-05-11 17:24 | W.ED.HEATRA ---
HPI - Head Injury General: Chief complaint: Head Injury Stated complaint: head lac s/p fall Time Seen by Provider: 05/11/24 17:07 History of Present Illness: Chief complaint is head injury and left elbow injury. The patient states that prior to arrival she was feeling hot because the heat was turned up too high. She states she jumped up to go turn down and after she stood up she started feeling lightheaded and then fell backwards. She did not lose consciousness. She states she remembers falling. She states she hit the back of her head and her left elbow. She denies any chest or back or abdominal injury. She states her neck is a little sore. No numbness weakness or tingling her arms or legs. No palpitations or chest pain or shortness of breath associated with this episode. No black or bloody stools. No vomiting or diarrhea. No recent illness. She states she felt completely fine before she jumped up. She has pain in her head where she hit the ground and her left elbow feels sore but she does not think she broke it. She is not on blood thinners. Asked her about her elevated blood pressure and she states she has not taken her blood pressure medicine today. She does have a pacemaker. She does not think she passed out. No recent illness. No fever. No change in urination. No abdominal pain vomiting or diarrhea. No chest pain or chest discomfort or upper back or arm pain or discomfort other than her left elbow being sore where she had it. No injury to her legs. Related Data Home Medications ?Medication ?Instructions ?Recorded ?Confirmed calcium 600 mg (as carbonate)-vit 1 tab PO DAILY 03/28/19 05/09/24 D3 10 mcg (400 unit) chewable tablet (Calcium 600 with Vitamin D3) albuterol sulfate 90 mcg/actuation 2 puff inhalation Q6H PRN 07/24/22 05/09/24 aerosol inhaler Shortness Of Breath Or Wheezing oxycodone 10 mg tablet 10 - 20 mg PO Q4H PRN Pain, 11/19/23 05/09/24 Moderate ropinirole 1 mg tablet 0.5 mg PO BEDTIME 11/19/23 05/09/24 amlodipine 10 mg tablet 10 mg PO QAM 04/14/24 05/09/24 aripiprazole 5 mg tablet 2.5 mg PO QAM 04/14/24 05/09/24 ferrous gluconate 324 mg (38 mg 324 mg PO BID 04/14/24 05/09/24 iron) tablet levothyroxine 75 mcg tablet 75 mcg PO QAM 05/09/24 05/09/24 lisinopril 10 mg tablet 10 mg PO DAILY 05/09/24 05/09/24 sertraline 100 mg tablet 100 mg PO QAM 05/09/24 05/09/24 Previous Rx's ?Medication ?Instructions ?Recorded Budin Hammer Toe Band Sawing Machine Operator #1 ea 10/03/22 pantoprazole 40 mg tablet,delayed 40 mg PO BID #60 tabs 12/14/23 release sertraline 25 mg tablet 25 mg PO DAILY #100 tabs 02/15/24 cyanocobalamin (vitamin B-12) 1,000 mcg PO DAILY #90 tabs 03/28/24 1,000 mcg tablet (Vitamin B-12) budesonide-formoterol HFA 160 2 puff inhalation BID #10.2 grams 04/23/24 mcg-4.5 mcg/actuation aerosol inhaler (Symbicort) ondansetron 4 mg disintegrating 4 mg PO Q6H PRN nausea and 05/09/24 tablet vomiting #30 tabs Allergies Allergy/AdvReac Type Severity Reaction Status Date / Time No Known Allergies Allergy Verified 04/29/24 21:29 [facility]: Medical History (Updated 05/11/24 @ 20:53 by Pete Hagan MD) Nausea & vomiting Mitral regurgitation Aortic valve stenosis Toe fracture, right Left leg swelling Candidiasis Shortness of breath Cough Sciatica History of ingrowing nail Hammertoe, bilateral Bilateral bunions Left knee DJD Onychocryptosis Chondrocalcinosis Preoperative testing Predislocation syndrome of metatarsophalangeal joint of right foot Metatarsalgia Rash Unsteady gait when walking Leg edema, left Encounter for removal of sutures Leg edema Mitral regurgitation LLL pneumonia Stylohyoid tendonitis Yeast vaginitis Dizziness Urinary incontinence Recurrent UTI Anemia of unknown etiology Depression, major Constipation 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 on CT 12/17 Large hiatal hernia Exocrine pancreatic insufficiency Renal insufficiency Hiatal hernia with GERD Hypothyroidism Enrolled in chronic care management Right knee DJD Osteoporosis Greater trochanteric bursitis Diarrhea Urinary retention Atherosclerotic heart disease of [place] coronary artery with other forms of angina pectoris Abnormal cardiovascular stress test NSTEMI (non-ST elevated myocardial infarction) Hyperlipidemia Hypertension Urgency incontinence Past heart attack Long-term current use of opiate analgesic Pain management contract signed Restless legs syndrome Fibromyalgia Chronic low back pain Dr. Benavidez es pain meds Surgical History S/P foot surgery History of mandibular surgery R jaw--has titanium plate; done for tumor--benign History of bowel resection benign growth H/O ileostomy Hx of appendectomy (~1973) Hx of hysterectomy (~1973) still has ovaries; had hyst due to bleeding; no cancer History of reversal of ileostomy Hx of tubal ligation Hx of foot surgery (~11/2013) RIGHT FOOT Family History Brother , BONE METS Cancer COLON CANCER Mother Heart disease Family history of thyroid problem Grandmother Heart disease Father Hyperlipidemia Bone cancer Social History Smoking and tobacco/nicotine status: former use of tobacco/nicotine Quit status (tobacco/nicotine): has quit using Year quit tobacco: quit 1989 Second hand smoke exposure: No Alcohol intake: never Substance/Drug Use: never Lives independently: Yes Household members: none Marital status: / Number of children: 3 Highest education level completed: Some College, No Degree Current occupational status: retired 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 She has a hematoma on her right occiput. She states her tetanus is up-to-date. She has no focal vertebral tenderness on her neck but some mild soreness with movement. No vertebral tenderness of her back or bruising or [place] of trauma to her back. No chest wall tenderness or rib tenderness or crepitance. Abdomen soft nontender no guarding or rebound. She moves all 4 extremities freely. She has a hematoma on the back of her left elbow. No bony tenderness. No tenderness over the wrist or hand or shoulder and she moves her elbow shoulder and wrist freely. She has intact pulses motor and sensation distally. No drift in her arms. No facial droop. Speech is clear. Pupils equal reactive to light with full range ocular motion and normal conjunctivo-. No signs of facial trauma. She is oriented x 4 and shows ability to reason and is cooperative and appropriate affect. No rash in exposed areas. No vertebral tenderness or CVA tenderness on her back. No bruising to the abdomen. No weakness in her arms or legs. Course Vital Signs: Vital signs: Vital Signs Temperature 98.0 F 05/11/24 16:58 Pulse Rate 51 L 05/11/24 19:00 Respiratory Rate 18 05/11/24 16:58 Blood Pressure 223/94 05/11/24 19:00 Pulse Oximetry 95 05/11/24 19:00 Oxygen Delivery Me thod Room Air 05/11/24 19:00 MDM - Head Injury Medcial Decision Making Patient presents with ground-level fall backwards and hit her head. She did feel lightheaded prior to falling which started when she jumped up from sitting down. Near syncope with his broad differential including cardiac dysrhythmia, anemia, sepsis, PE, among many others however she denies chest pain or shortness of breath blood loss, fever, palpitations. She has a pacemaker. Will send her for CT of the head to evaluate for intracranial hemorrhage and will CT her cervical spine to evaluate for fracture and x-ray her left elbow. She states she is not on blood thinners. I ordered CBC basic metabolic profile, EKG. EKG to my interpretation shows bigeminy pattern with intermittent alternating with PVC with ST segment depression diffusely. Asked nursing to see if we can interrogate her pacemaker. Patient's potassium returned low. I added a magnesium level. Patient CBC did not show significant abnormality. Patient CT head and cervical spine negative for acute process per radiology. Patient's interrogation returned showing she had episode of V-fib with defibrillation. Patient had some other episodes of shorter V-fib that was not cardioverted. Will replete the patient's potassium as this may have been the trigger. I ordered 40 mill equivalents of p.o. potassium and 40 mEq IV. I consulted with Dr. Mijares from cardiology who recommends starting the patient on 400 mg of amiodarone twice daily. I reviewed the patient's echocardiogram from March with him. She had normal ejection fraction at that time. He will consult and I consulted with Dr. Bowden from the hospitalist team. I discussed with him the patient's EKG morphology. Patient denies any chest pain or chest discomfort to suggest cardiac ischemia. Her troponins will be abnormal with her recent defibrillation. Ischemia is unlikely trigger for her event with no chest pain or chest discomfort or shortness of breath. She is alert oriented in no acute distress. Her blood pressure is elevated. She tells me she has not taken her medications for a few days. She states she is just not good at taking her medication. I ordered her lisinopril and oxycodone and clonidine and amlodipine p.o. Patient denies headache to suggest endorgan dysfunction from her hypertension. Patient admitted for further evaluation and care. I gave her 400 mg amiodarone p.o. Patient states she lives at home alone and agrees with plan for admission. Lab Data 05/11/24 18:03 05/11/24 18:03 Radiology Impressions Cervical Spine CT 05/11/24 17:16 IMPRESSION: 1. No CT evidence of acute cervical spine traumatic injury. 2. Additional findings, as above. Chest X-Ray 05/11/24 17:16 IMPRESSION: No acute pathology or significant interval change. Large hiatal hernia and cardiac pacemaker/ICD again noted. Elbow X-Ray 05/11/24 17:16 IMPRESSION: Posterior soft tissue swelling of the distal upper arm. No fracture evident. Head CT 05/11/24 17:16 IMPRESSION: 1. No CT evidence of acute intracranial pathology. 2. Additional findings, as above. Laboratory Results WBC 7.26 10^3/uL (3.29-11.43) 05/11/24 18:03 RBC 4.96 10^6/uL (3.85-5.65) 05/11/24 18:03 Hgb 13.20 g/dL (11.27-16.99) 05/11/24 18:03 Hct 41.3 % (36-47) 05/11/24 18:03 MCV 83.3 fl (85-98) L 05/11/24 18:03 MCH 26.6 pg (27-33) L 05/11/24 18:03 MCHC 32.0 g/dL (30-55) 05/11/24 18:03 RDW 18.3 % (12.1-15.1) H 05/11/24 18:03 Plt Count 274 10^3/cmm (157-399) 05/11/24 18:03 MPV 9.5 fL (7.4-10.4) 05/11/24 18:03 Neut % (Auto) 72.1 % 05/11/24 18:03 Lymph % (Auto) 16.1 % 05/11/24 18:03 [place] % (Auto) 9.0 % 05/11/24 18:03 Eos % (Auto) 2.1 % 05/11/24 18:03 Baso % (Auto) 0.3 % 05/11/24 18:03 Neut # (Auto) 5.24 10^3/uL (1.8-7.7) 05/11/24 18:03 Lymph # (Auto) 1.2 10^3/uL (0.8-4.8) 05/11/24 18:03 [place] # (Auto) 0.7 10^3/uL (0.2-0.9) 05/11/24 18:03 Eos # (Auto) 0.2 10^3/uL (0.0-0.8) 05/11/24 18:03 Baso # (Auto) 0.0 10^3/uL (0.0-0.1) 05/11/24 18:03 Nucleated RBC % (auto) 0 % 05/11/24 18:03 Nucleated RBCs # 0.0 /100WBC 05/11/24 18:03 Sodium 142 mmol/L (136-145) 05/11/24 18:03 Potassium 2.7 mmol/L (3.5-5.1) L* 05/11/24 18:03 Chloride 98 mmol/L (98-107) 05/11/24 18:03 Carbon Dioxide 28 mmol/L (22-29) 05/11/24 18:03 Anion Gap 18.7 (5-19) 05/11/24 18:03 BUN 14 mg/dL (8-23) 05/11/24 18:03 Creatinine 1.0 mg/dL (0.5-0.9) H 05/11/24 18:03 GFR Calculation Not Reportable 05/11/24 18:03 Glucose 107 mg/dL (65-115) 05/11/24 18:03 Calculated Osmolality 295 mOsm/kg (285-295) 05/11/24 18:03 Calcium 10.2 mg/dL (8.5-10.5) 05/11/24 18:03 Magnesium 1.9 mg/dL (1.7-2.3) 05/11/24 18:03 Urine Color Yellow (Yellow) 05/11/24 17: Urine Appearance Clear (CLEAR) 05/11/24 17: Urine pH 8.0 (5-7) A 05/11/24 17:26 Ur Specific [place] 1.007 (1.005-1.030) 05/11/24 17:26 Urine Protein Trace (Negative) A 05/11/24 17: Urine Glucose (UA) Negative (Normal) 05/11/24 17: Urine Ketones Negative (Negative) 05/11/24 17: Urine Blood Negative (Negative) 05/11/24 17: Urine Nitrate Negative (Negative) 05/11/24 17: Urine Bilirubin Negative (Negative) 05/11/24 17: Urine Urobilinogen 0.2 mg/dL (Negative) 05/11/24 17:26 Ur Leukocyte Esterase Negative (Negative) 05/11/24 17:26 Urine RBC 0-2 /hpf (0-2) 05/11/24 17:26 Urine WBC 0-5 /hpf (0-5) 05/11/24 17:26 Ur Squamous Epith Cells 0-5 /hpf (0-5) 05/11/24 17: Amorphous Sediment Not Reportable 05/11/24 17:26 Urine Bacteria Trace /hpf (NONE) 05/11/24 17:26 Hyaline Casts 0.40 /lpf 05/11/24 17:26 All radiology interpretation(s) finalized by discharge Discharge Plan Discharge Patient Disposition: Placed in Observation Clinical Impression: Paroxysmal ventricular fibrillation, Acute hypokalemia Condition: Stable Prescriptions: No Action (DME) Budin Hammer 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 Band Sawing 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 Operator See Rx Instructions .Route .MEDSUPPLY Qty: 1 0RF Rx Instructions: As directed by HOME sertraline 25 mg tablet 25 mg PO DAILY Qty: 100 0RF cyanocobalamin (vitamin B-12) [Vitamin B-12] 1,000 mcg tablet 1,000 mcg PO DAILY Qty: 90 3RF budesonide-formoterol [Symbicort] 160-4.5 mcg/actuation HFA aerosol inhaler 2 puff INHALATION BID Qty: 10.2 5RF Calcium 600 with Vitamin D3 600 mg(1,500mg) -400 unit Tablet,Chewable 1 tab PO DAILY albuterol sulfate 90 mcg/actuation HFA aerosol inhaler 2 puff inhalation Q6H PRN (Reason: Shortness Of Breath Or Wheezing) pantoprazole 40 mg Tablet,Delayed Release (Dr/Ec) 40 mg PO BID Qty: 60 0RF sertraline 100 mg tablet 100 mg PO QAM levothyroxine 75 mcg tablet 75 mcg PO QAM lisinopril 10 mg tablet 10 mg PO DAILY ondansetron 4 mg tablet,disintegrating 4 mg PO Q6H PRN (Reason: nausea and vomiting) Qty: 30 0RF ropinirole 1 mg tablet 0.5 mg PO BEDTIME oxycodone 10 mg tablet 10 - 20 mg PO Q4H PRN (Reason: Pain, Moderate) Rx Instructions: TAKE 1 TO 2 TABLETS BY MOUTH EVERY 4 TO 6 HOURS NEEDED FOR PAIN max 6 PER day amlodipine 10 mg tablet 10 mg PO QAM aripiprazole 5 mg tablet 2.5 mg PO QAM ferrous gluconate 324 mg (38 mg iron) tablet 324 mg PO BID Referrals: Lynda Lopez MD [Primary Care Provider] - Print Language: [place] Coding Level of Care Code ED Credentials Specialist for [facility]
[2024-05-11 17:33] LABS: Bilirubin Urine Negative (Negative); Blood Urine Negative (Negative); Glucose Urine UA Negative (Normal); Ketones Urine Negative (Negative); Leukocyte Esterase Urine Negative (Negative); Nitrate Urine Negative (Negative); Protein Urine Trace (Negative); Specific Gravity, Urine 1.007 (1.005-1.030); Urine Appearance Clear (CLEAR); Urine Color Yellow (Yellow); Urobilinogen Urine 0.2 mg/dL (Negative)
[2024-05-11 17:38] LABS: Add Urine Microscopic? YES; Bacteria Urine Trace /hpf; RBC Urine 0-2 /hpf (0-2); Squamous Epithelial Cell Urine 0-5 /hpf (0-5); WBC Urine 0-5 /hpf (0-5)
[2024-05-11 18:14] LABS: Basophils % 0.3 %; Eosinophils # 0.2 10^3/uL (0.0-0.8); Eosinophils % 2.1 %; Hematocrit 41.3 % (36-47); Lymphocytes # 1.2 10^3/uL (0.8-4.8); Lymphocytes % 16.1 %; Mean Corpuscular Hemoglobin 26.6 pg (27-33); Mean Corpuscular Volume 83.3 fl (85-98); Mean Platelet Volume 9.5 fL (7.4-10.4); Monocytes # 0.7 10^3/uL (0.2-0.9); Neutrophils # 5.24 10^3/uL (1.8-7.7); Neutrophils % 72.1 %; Nucleated Red Blood Cells % 0 %; Platelet Count 274 10^3/cmm (157-399); Red Blood Count 4.96 10^6/uL (3.85-5.65); Red Cell Distribution Width 18.3 % (12.1-15.1); White Blood Count 7.26 10^3/uL (3.29-11.43)
[2024-05-11] MEDS: cloNIDine 0.1 mg Tablet PO (18:21)
[2024-05-11] MEDS: amlodipine 10 mg Tablet PO (18:21)
[2024-05-11 18:37] LABS: Anion Gap 18.7 (5-19); Blood Urea Nitrogen 14 mg/dL (8-23); Calcium 10.2 mg/dL (8.5-10.5); Carbon Dioxide 28 mmol/L (22-29); Chloride 98 mmol/L (98-107); Glucose 107 mg/dL (65-115); Osmolality Calculated 295 mOsm/kg (285-295); Sodium 142 mmol/L (136-145)
[2024-05-11 18:40] LABS: Potassium 2.7 mmol/L (3.5-5.1)
--- NOTE | 2024-05-11 19:49 | PM.HP ---
Providers/Chief Complaint Primary Care Provider: Lynda Lopez MD Chief Complaint: head lac s/p fall History of Present Illness Ivan Peguero is a 78 year old female with a past medical history significant for polymorphic ventricular tachycardia status post recent ICD placement, hiatal hernia, chronic pain, osteoarthritis, hypertension, hypothyroidism, restless leg syndrome, fibromyalgia, hyperlipidemia, coronary artery disease and multiple other comorbidities who presents to the emergency department with near syncopal episode. Patient reports prior to arrival she had an episode of feeling warm and upon standing she nearly passed out hitting the back of her head and left elbow. She denies any chest pain, shortness of breath, palpitations or diaphoresis. She reports touching of the back of her head or her left elbow worsens the pain. Denies other alleviating or aggravating factors. Of note, patient was recently transferred to [facility] for treatment for ventricular arrhythmia where pacemaker/ICD was placed. In the emergency department, patient was found to have severe hypokalemia to 2.7. ED provider reports interrogation of device showed ventricular fibrillation requiring shock. Review of Systems Narrative: A complete review of systems was obtained and is negative except as stated in HPI. Medications/Allergies Home Medications ?Medication ?Instructions ?Recorded ?Confirmed ?Last Taken ?Type calcium 600 mg (as carbonate)-vit 1 tab PO DAILY 03/28/19 05/09/24 01/07/24 History D3 10 mcg (400 unit) chewable tablet (Calcium 600 with Vitamin D3) albuterol sulfate 90 mcg/actuation 2 puff inhalation Q6H PRN 07/24/22 05/09/24 04/13/24 History aerosol inhaler Shortness Of Breath Or Wheezing Donnin Hammer Toe Gunstock Spray Unit Feeder #1 ea 10/03/22 05/09/24 Unknown Rx oxycodone 10 mg tablet 10 - 20 mg PO Q4H PRN Pain, 11/19/23 05/09/24 01/07/24 History Moderate ropinirole 1 mg tablet 0.5 mg PO BEDTIME 11/19/23 05/09/24 04/12/24 History pantoprazole 40 mg tablet,delayed 40 mg PO BID #60 tabs 12/14/23 05/09/24 01/07/24 Rx release sertraline 25 mg tablet 25 mg PO DAILY #100 tabs 02/15/24 05/09/24 04/12/24 Rx cyanocobalamin (vitamin B-12) 1,000 mcg PO DAILY #90 tabs 03/28/24 05/09/24 04/13/24 Rx 1,000 mcg tablet (Vitamin B-12) amlodipine 10 mg tablet 10 mg PO QAM 04/14/24 05/09/24 Unknown History aripiprazole 5 mg tablet 2.5 mg PO QAM 04/14/24 05/09/24 Unknown History ferrous gluconate 324 mg (38 mg 324 mg PO BID 04/14/24 05/09/24 Unknown History iron) tablet budesonide-formoterol HFA 160 2 puff inhalation BID #10.2 grams 04/23/24 05/09/24 Unknown Rx mcg-4.5 mcg/actuation aerosol inhaler (Symbicort) levothyroxine 75 mcg tablet 75 mcg PO QAM 05/09/24 05/09/24 Unknown History lisinopril 10 mg tablet 10 mg PO DAILY 05/09/24 05/09/24 Unknown History ondansetron 4 mg disintegrating 4 mg PO Q6H PRN nausea and 05/09/24 Unknown Rx tablet vomiting #30 tabs sertraline 100 mg tablet 100 mg PO QAM 05/09/24 05/09/24 Unknown History Allergies Allergy/AdvReac Type Severity Reaction Status Date / Time No Known Allergies Allergy Verified 04/29/24 21:29 PFSH Acute PFSH: Medical History (Updated 05/11/24 @ 20:26 by Burt Bowden MD) Nausea & vomiting Mitral regurgitation Aortic valve stenosis Toe fracture, right Left leg swelling Candidiasis Shortness of breath Cough Sciatica History of ingrowing nail Hammertoe, bilateral Bilateral bunions Left knee DJD Onychocryptosis Chondrocalcinosis Preoperative testing Predislocation syndrome of metatarsophalangeal joint of right foot Metatarsalgia Rash Unsteady gait when walking Leg edema, left Encounter for removal of sutures Leg edema Mitral regurgitation LLL pneumonia Stylohyoid tendonitis Yeast vaginitis Dizziness Urinary incontinence Recurrent UTI Anemia of unknown etiology Depression, major Constipation 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 on CT 12/17 Large hiatal hernia Exocrine pancreatic insufficiency Renal insufficiency Hiatal hernia with GERD Hypothyroidism Enrolled in chronic care management Right knee DJD Osteoporosis Greater trochanteric bursitis Diarrhea Urinary retention Atherosclerotic heart disease of [place] coronary artery with other forms of angina pectoris Abnormal cardiovascular stress test NSTEMI (non-ST elevated myocardial infarction) Hyperlipidemia Hypertension Urgency incontinence Past heart attack Long-term current use of opiate analgesic Pain management contract signed Restless legs syndrome Fibromyalgia Chronic low back pain Dr. Benavidez es pain meds Surgical History S/P foot surgery History of mandibular surgery R jaw--has titanium plate; done for tumor--benign History of bowel resection benign growth H/O ileostomy Hx of appendectomy (~1973) Hx of hysterectomy (~1973) still has ovaries; had hyst due to bleeding; no cancer History of reversal of ileostomy Hx of tubal ligation Hx of foot surgery (~11/2013) RIGHT FOOT Family History Brother , BONE METS Cancer COLON CANCER Mother Heart disease Family history of thyroid problem Grandmother Heart disease Father Hyperlipidemia Bone cancer Social History Smoking and tobacco/nicotine status: former use of tobacco/nicotine Quit status (tobacco/nicotine): has quit using Year quit tobacco: quit 1989 Second hand smoke exposure: No Alcohol intake: never Substance/Drug Use: never Lives independently: Yes Household members: none Marital status: / Number of children: 3 Highest education level completed: Some College, No Degree Current occupational status: retired 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 Head: Normocephalic. Atraumatic. EOM intact. Neck: No JVD. Cardiovascular: RRR. No gallops. No murmurs. Nonpitting lower extremity edema. Incision from ICD placement on left chest wall is clean dry and intact. Lungs: Clear to auscultation, no use of accessory muscles, no crackles or wheezes. Skin: No jaundice. No rashes. Abdomen: Normal bowel sounds, abdomen soft and nontender. Genito Urinary: Genital exam not performed since complaints not related. Rectal: Rectal exam not performed since no symptoms indicated blood loss. Extremities: No cyanosis or clubbing. Musculoskeletal: No swollen or erythematous joints. Neurological: Moves all 4 extremities. No myoclonus. Data 05/11/24 18:03 05/11/24 18:03 A&P Assessment and plan (1) Ventricular arrhythmia: Patient is status post recent ICD/pacemaker placement Suspect recurrent ventricular arrhythmia secondary to severe hypokalemia Aggressively replace potassium Beta-shital Check magnesium Continuous telemetry monitoring (2) Hypokalemia: Severe hypokalemia Patient is being replaced with IV and p.o. replacement Trend levels (3) Pre-syncope: Presyncopal episode secondary to ventricular arrhythmia Tylenol as needed for large hematomas on head and left elbow Management as above (4) Hypertension: Blood pressures currently elevated Continue home medications IV hydralazine as needed Qualifiers: Hypertension type: essential hypertension Qualified Code(s): I10 - Essential (primary) hypertension (5) Chronic pain: Continue home pain regiment (6) Restless legs syndrome: Continue home Requip Plan DVT prophylaxis: SCD PDMP PDMP Reviewed: Not Reviewed Attestations Medical Necessity Statement*: Patient presents with near syncopal episode, found to have ventricular arrhythmia on ICD/pacemaker interrogation likely secondary to severe hypokalemia with expected hospitalization not to cross 2 midnights for telemetry, electrolyte correction and supportive care. Coding Level of Care Code Acute Code for [facility] Diagnoses Ventricular arrhythmia I49.9 Hypokalemia E87.6 Pre-syncope R55 Essential hypertension I10 Hypertension type: essential hypertension Chronic pain G89.29 Restless legs syndrome G25.81
[2024-05-11] MEDS: potassium chloride ER 20 mEq Tablet 40 MEQ PO (19:56)
[2024-05-11 20:06] LABS: Magnesium 1.9 mg/dL (1.7-2.3)
[2024-05-11] MEDS: potassium chloride premix 100 ML 25 MEQ IV (20:11)
[2024-05-11] MEDS: amiodarone 200 mg Tablet 400 MG PO (20:23)
[2024-05-11] MEDS: oxyCODONE 5 mg IR Tab/Cap 10 MG PO (20:57)
[2024-05-11] MEDS: ropinirole 0.25 mg Tablet 0.5 MG PO (20:57)
[2024-05-11] MEDS: lisinopril 10 mg Tablet PO (20:57)
[2024-05-11] MEDS: oxyCODONE 5 mg IR Tab/Cap 20 MG PO (23:42)
[2024-05-12] VITALS (10 sets, daily range): BP systolic 129–143; BP diastolic 74–95; PULSE 65–78; RESP 16–20; TEMP 36.4–36.6; O2SAT 93–95
[2024-05-12] MEDS: trazodone 50 mg Tablet 25 MG PO (00:14)
[2024-05-12] MEDS: levothyroxine 75 mcg Tablet PO (05:14)
[2024-05-12] MEDS: sertraline 100 mg Tablet PO (05:14)
[2024-05-12] MEDS: amlodipine 10 mg Tablet PO (05:14)
[2024-05-12] MEDS: oxyCODONE 5 mg IR Tab/Cap 20 MG PO ×3 (05:30→20:36)
[2024-05-12 05:44] LABS: Anion Gap 14.8 (5-19); Blood Urea Nitrogen 14 mg/dL (8-23); Calcium 9.8 mg/dL (8.5-10.5); Carbon Dioxide 29 mmol/L (22-29); Chloride 102 mmol/L (98-107); Glucose 94 mg/dL (65-115); Magnesium 2.1 mg/dL (1.7-2.3); Osmolality Calculated 294 mOsm/kg (285-295); Potassium 3.8 mmol/L (3.5-5.1); Sodium 142 mmol/L (136-145)
[2024-05-12] MEDS: potassium chloride ER 20 mEq Tablet 40 MEQ PO (06:17)
[2024-05-12] MEDS: lisinopril 10 mg Tablet PO (08:09)
[2024-05-12] MEDS: pantoprazole DR 40 mg Tablet PO ×2 (08:09→17:58)
--- NOTE | 2024-05-12 08:13 | PM.CONSULT ---
Providers/Reason For Consult Consulting Physician/Specialty*: CHET Mijares MD/cardiology Reason for Consult*: Patient ventricular tachycardia/fibrillation Requesting Physician: Dr. Bowden Attending Physician: Burt Bowden MD Primary Care Provider: Lynda Lopez MD History of Present Illness History of Present Illness Ivan Peguero is a 78 year old female with a history of ventricular arrhythmia, status post recent ICD implantation, is admitted to the hospital through the emergency room where she presented with an episode of passing out spell. Her ICD interrogation revealed episode of VT/V-fib, successfully terminated with ICD discharge?-I do not have the rhythm strip provided at this time. She is admitted to hospital for further evaluation management. This patient apparently been in her usual state of health up until last night evening when while she was sitting in the recliner started feeling heart. She got up and adjust her thermostat for a low temperature. As she was turning around, she got dizzy weak and then fell to the floor. She did not have any loss of consciousness. She managed to crawl back to the recliner and then got up and called 911. She was found to be in sinus rhythm in the emergency room. According to the patient, she has not taken any of her medications at home for a week. She apparently forgot. This patient was admitted to hospital last month with the complaints of dizziness/weakness, nausea and vomiting. She was found to have episodes of ventricular tachycardia. she apparently had a syncopal/near syncopal episodes with the arrhythmia. Initially she was found to be hypokalemic which was corrected. Even after correcting the hyperkalemia, she had episodes of ventricular tachycardia. She was developing bradycardia with the beta-shital. For these reasons, she was transferred to [facility] where she underwent ICD implantation. She has not had any ICD discharges up until yesterday. She denies any chest pain or chest tightness. No unusual shortness of breath. She had a cardiac catheterization prior to the ICD implantation. She was found to have no obstructive coronary artery disease. He has a history of hypertension, dyslipidemia, hypothyroidism, degenerative joint disease, osteoarthritis, fibromyalgia, hiatal hernia, prior history of senior care placement for altered mental status. Her potassium was 2.7 in the emergency room. She was supplemented with the potassium. Review of Systems Narrative: CONSTITUTIONAL: No fever or chills. EYES: No blurring of vision or other visual disturbances lately. ENT: No hoarseness of voice, auditory disturbances or sore throat. CARDIOVASCULAR: As mentioned above. RESPIRATORY: No significant cough. GASTROINTESTINAL: No hematemesis or melena. GENITOURINARY: No dysuria or hematuria. INTEGUMENTARY: No skin rashes or history of skin cancer. NEURO: No transient ischemic attacks or amaurosis. PSYCHIATRIC: No history of psychosis or major depression. HEMATOLOGIC: No bleeding disorders or significant anemia. ENDOCRINE: No history of polyuria or polydipsia. MUSCULOSKELETAL: No recent joint pain or swelling. ALLERGY/IMMUNOLOGY: As mentioned above. Medications/Allergies Home Medications ?Medication ?Instructions ?Recorded ?Confirmed ?Last Taken ?Type calcium 600 mg (as carbonate)-vit 1 tab PO DAILY 03/28/19 05/12/24 05/07/24 History D3 10 mcg (400 unit) chewable tablet (Calcium 600 with Vitamin D3) Monet Hammer Toe [employer] #1 ea 10/03/22 05/12/24 Unknown Rx oxycodone 10 mg tablet 10 - 20 mg PO Q4H PRN Pain, 11/19/23 05/12/24 05/07/24 History Moderate pantoprazole 40 mg tablet,delayed 40 mg PO BID #60 tabs 12/14/23 05/12/24 05/07/24 Rx release sertraline 25 mg tablet 25 mg PO DAILY #100 tabs 02/15/24 05/12/24 04/12/24 Rx cyanocobalamin (vitamin B-12) 1,000 mcg PO DAILY #90 tabs 03/28/24 05/12/24 05/07/24 Rx 1,000 mcg tablet (Vitamin B-12) ferrous gluconate 324 mg (38 mg 324 mg PO BID 04/14/24 05/12/24 05/07/24 History iron) tablet budesonide-formoterol HFA 160 2 puff inhalation BID #10.2 grams 04/23/24 05/12/24 05/07/24 Rx mcg-4.5 mcg/actuation aerosol inhaler (Symbicort) levothyroxine 75 mcg tablet 75 mcg PO QAM 05/09/24 05/12/24 05/07/24 History lisinopril 10 mg tablet 10 mg PO DAILY 05/09/24 05/12/24 05/07/24 History ondansetron 4 mg disintegrating 4 mg PO Q6H PRN nausea and 05/09/24 05/12/24 Unknown Rx tablet vomiting #30 tabs sertraline 100 mg tablet 100 mg PO QAM 05/09/24 05/12/24 Unknown History amiodarone 200 mg tablet 200 mg PO DAILY 05/12/24 05/12/24 05/07/24 History amlodipine 5 mg tablet 5 mg PO DAILY 05/12/24 05/12/24 05/07/24 History metoprolol tartrate 25 mg tablet 25 mg PO DAILY 05/12/24 05/12/24 05/07/24 History ropinirole 0.5 mg tablet 0.5 mg PO BEDTIME 05/12/24 05/12/24 05/07/24 History Allergies Allergy/AdvReac Type Severity Reaction Status Date / Time No Known Allergies Allergy Verified 04/29/24 21:29 Current Medications Generic Name Dose Route Start Last Admin Trade Name Freq PRN Reason Stop Dose Admin Amlodipine Besylate 10 mg 05/12/24 06:00 05/12/24 05:14 Amlodipine 10 Mg Tablet PO 10 mg QAM KAMERON Administration Levothyroxine Sodium 75 mcg 05/12/24 06:00 05/12/24 05:14 Levothyroxine 75 Mcg Tablet PO 75 mcg QAM KAMERON Administration Lisinopril 10 mg 05/12/24 09:00 05/12/24 08:09 Lisinopril 10 Mg Tablet PO 10 mg DAILY KAMERON Administration Oxycodone HCl 20 mg 05/11/24 22:07 05/12/24 05:30 Oxycodone 5 Mg Ir Tab/Cap PO 20 mg Q4H PRN Administration Severe Pain Pantoprazole Sodium 40 mg 05/12/24 09:00 05/12/24 08:[address] 40 Mg Tablet PO 40 mg BID KAMERON Administration Ropinirole HCl 0.5 mg 05/11/24 22:07 05/11/24 22:32 Ropinirole 1 Mg Tablet PO Not Given BEDTIME KAMERON Sertraline HCl 25 mg 05/12/24 09:00 05/12/24 05:23 Sertraline 50 Mg Tablet PO Not Given DAILY KAMERON PFSH Acute PFSH: Medical History Nausea & vomiting Mitral regurgitation Aortic valve stenosis Toe fracture, right Left leg swelling Candidiasis Shortness of breath Cough Sciatica History of ingrowing nail Hammertoe, bilateral Bilateral bunions Left knee DJD Onychocryptosis Chondrocalcinosis Preoperative testing Predislocation syndrome of metatarsophalangeal joint of right foot Metatarsalgia Rash Unsteady gait when walking Leg edema, left Encounter for removal of sutures Leg edema Mitral regurgitation LLL pneumonia Stylohyoid tendonitis Yeast vaginitis Dizziness Urinary incontinence Recurrent UTI Anemia of unknown etiology Depression, major Constipation 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 on CT 12/17 Large hiatal hernia Exocrine pancreatic insufficiency Renal insufficiency Hiatal hernia with GERD Hypothyroidism Enrolled in chronic care management Right knee DJD Osteoporosis Greater trochanteric bursitis Diarrhea Urinary retention Atherosclerotic heart disease of [place] coronary artery with other forms of angina pectoris Abnormal cardiovascular stress test NSTEMI (non-ST elevated myocardial infarction) Hyperlipidemia Hypertension Urgency incontinence Past heart attack Long-term current use of opiate analgesic Pain management contract signed Restless legs syndrome Fibromyalgia Chronic low back pain Dr. Benavidez Rxes pain meds Surgical History S/P foot surgery History of mandibular surgery R jaw--has titanium plate; done for tumor--benign History of bowel resection benign growth H/O ileostomy Hx of appendectomy (~1973) Hx of hysterectomy (~1973) still has ovaries; had hyst due to bleeding; no cancer History of reversal of ileostomy Hx of tubal ligation Hx of foot surgery (~11/2013) RIGHT FOOT Family History Brother , BONE METS Cancer COLON CANCER Mother Heart disease Family history of thyroid problem Grandmother Heart disease Father Hyperlipidemia Bone cancer Social History Smoking and tobacco/nicotine status: former use of tobacco/nicotine Quit status (tobacco/nicotine): has quit using Year quit tobacco: quit 1989 Second hand smoke exposure: No Alcohol intake: never Substance/Drug Use: never Lives independently: Yes Household members: none Marital status: / Number of children: 3 Highest education level completed: Some College, No Degree Current occupational status: retired 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 Not in any acute distress. HEENT: No significant pallor, icterus or lymphadenopathy.Oral cavity: There are no mucous membrane lesions. NECK: Trachea appears to be central. No masses noted. No JVD or thyromegaly appreciated. RESPIRATORY: Chest is symmetrical. No intercostals muscle retraction or any accessory muscle activation. There is no chest wall tenderness. Breath sounds are heard bilaterally. No rales or rhonchi heard. No evidence of any consolidation. BREASTS: Deferred. HEART: The heart sounds are normal. No S3 or S4. No significant murmurs. No pericardial rub ABDOMEN: No vessel pulsations or distention. No tenderness. No organomegaly appreciated. Bowel sounds are normally heard. : Deferred. RECTAL: Deferred. LYMPHATIC: No lymphadenopathy noted in the neck. EXTREMITIES: No edema or cyanosis. No clubbing. MUSCULOSKELETAL: No acute joint deformities or swelling SKIN: There are no significant rashes or ecchymosis NEUROPSYCHIATRIC: The patient is alert and oriented x3. Appears to be in a good mood. No tremors or rigidity noted. Data 05/11/24 18:03 05/12/24 05:08 Other Labs: Laboratory Last Values WBC 7.26 10^3/uL (3.29-11.43) 05/11/24 18:03 RBC 4.96 10^6/uL (3.85-5.65) 05/11/24 18:03 Hgb 13.20 g/dL (11.27-16.99) 05/11/24 18:03 Hct 41.3 % (36-47) 05/11/24 18:03 MCV 83.3 fl (85-98) L 05/11/24 18:03 MCH 26.6 pg (27-33) L 05/11/24 18:03 MCHC 32.0 g/dL (30-55) 05/11/24 18:03 RDW 18.3 % (12.1-15.1) H 05/11/24 18:03 Plt Count 274 10^3/cmm (157-399) 05/11/24 18:03 MPV 9.5 fL (7.4-10.4) 05/11/24 18:03 Neut % (Auto) 72.1 % 05/11/24 18:03 Lymph % (Auto) 16.1 % 05/11/24 18:03 [place] % (Auto) 9.0 % 05/11/24 18:03 Eos % (Auto) 2.1 % 05/11/24 18:03 Baso % (Auto) 0.3 % 05/11/24 18:03 Neut # (Auto) 5.24 10^3/uL (1.8-7.7) 05/11/24 18:03 Lymph # (Auto) 1.2 10^3/uL (0.8-4.8) 05/11/24 18:03 [place] # (Auto) 0.7 10^3/uL (0.2-0.9) 05/11/24 18:03 Eos # (Auto) 0.2 10^3/uL (0.0-0.8) 05/11/24 18:03 Baso # (Auto) 0.0 10^3/uL (0.0-0.1) 05/11/24 18:03 Nucleated RBC % (auto) 0 % 05/11/24 18:03 Nucleated RBCs # 0.0 /100WBC 05/11/24 18:03 Sodium 142 mmol/L (136-145) 05/12/24 05:08 Potassium 3.8 mmol/L (3.5-5.1) 05/12/24 05:08 Chloride 102 mmol/L (98-107) 05/12/24 05:08 Carbon Dioxide 29 mmol/L (22-29) 05/12/24 05:08 Anion Gap 14.8 (5-19) 05/12/24 05:08 BUN 14 mg/dL (8-23) 05/12/24 05:08 Creatinine 1.0 mg/dL (0.5-0.9) H 05/12/24 05:08 GFR Calculation Not Reportable 05/12/24 05:08 Glucose 94 mg/dL (65-115) 05/12/24 05:08 Calculated Osmolality 294 mOsm/kg (285-295) 05/12/24 05:08 Calcium 9.8 mg/dL (8.5-10.5) 05/12/24 05:08 Phosphorus 2.0 mg/dL (2.5-4.5) L 05/12/24 05:08 Magnesium 2.1 mg/dL (1.7-2.3) 05/12/24 05:08 Urine Color Yellow (Yellow) 05/11/24 17: Urine Appearance Clear (CLEAR) 05/11/24 17: Urine pH 8.0 (5-7) A 05/11/24 17:26 Ur Specific [place] 1.007 (1.005-1.030) 05/11/24 17: Urine Protein Trace (Negative) A 05/11/24 17: Urine Glucose (UA) Negative (Normal) 05/11/24 17: Urine Ketones Negative (Negative) 05/11/24 17: Urine Blood Negative (Negative) 05/11/24 17: Urine Nitrate Negative (Negative) 05/11/24 17: Urine Bilirubin Negative (Negative) 05/11/24 17:26 Urine Urobilinogen 0.2 mg/dL (Negative) 05/11/24 17:26 Ur Leukocyte Esterase Negative (Negative) 05/11/24 17: Urine RBC 0-2 /hpf (0-2) 05/11/24 17:26 Urine WBC 0-5 /hpf (0-5) 05/11/24 17:26 Ur Squamous Epith Cells 0-5 /hpf (0-5) 05/11/24 17: Amorphous Sediment Not Reportable 05/11/24 17: Urine Bacteria Trace /hpf (NONE) 05/11/24 17: Hyaline Casts 0.40 /lpf 05/11/24 17:26 A&P Assessment and plan (1) Ventricular tachycardia (paroxysmal): The device was interrogated. The patient apparently had an episode of ventricular tachycardia, degenerated to ventricular fibrillation. She was successfully cardioverted with a 40 J to sinus rhythm. In view of the recurrent episodes of ventricular arrhythmia, it may be appropriate to start her on amiodarone. The proper use of the medication were discussed with the patient. (2) Hypertension: Patient had an accelerated hypertension in the emergency room. Currently the blood pressure is almost back to normal range. Apparently she was off of all the medications, for a week or so. Qualifiers: Hypertension type: essential hypertension Qualified Code(s): I10 - Essential (primary) hypertension (3) Hyperlipidemia: May continue the current medications. Qualifiers: Hyperlipidemia type: mixed hyperlipidemia Qualified Code(s): E78.2 - Mixed hyperlipidemia (4) Hypokalemia: The hypokalemia is corrected. (5) Hypothyroidism: May continue the current medications. Qualifiers: Hypothyroidism type: unspecified Qualified Code(s): E03.9 - Hypothyroidism, unspecified Plan Importance of compliance of medication were discussed with the patient which she seems understand well Admitted on 400 mg p.o. twice daily for 1 week followed by 400 mg daily Her thyroid function, liver function need to be closely monitored Patient may be closely monitored on telemetry. If she is remaining stable with no recurrence of the arrhythmia, may be discharged home tomorrow. Thank you for the opportunity to evaluate this patient and make these recommendations PDMP PDMP Reviewed: Not Reviewed Consult Attestations Medical Necessity Statement: Deferred to the primary Coding Level of Care Code 63596 Diagnoses Ventricular tachycardia (paroxysmal) I47.20 Essential hypertension I10 Hypertension type: essential hypertension Mixed hyperlipidemia E78.2 Hyperlipidemia type: mixed hyperlipidemia Hypokalemia E87.6 Hypothyroidism, unspecified type E03.9 Hypothyroidism type: unspecified
--- NOTE | 2024-05-12 08:54 | PC.CHAP ---
Pastoral Care Encounter/Spiritual Assessment Type of Contact [] Declined ramp lead visit [] Patient/Family/Request visit [] Outpatient visit [] Follow-up visit [] Physician referral [] Code/Alert [x] Routine visit [] Staff referral [] Actively dying [] Patient sleeping [] Family support [] [] Out of room [] Palliative care [] [] Receiving care in room [] Pre-surgical visit [] Trauma [] Long length of stay [] ICU visit [] Other: Relational/Emotional Strength [] Patient feels connected with others/family/visitors/staff [] Distress [] Loneliness/isolation [] Abandonment Spirituality of Patient [x] Person of Ruby [] Attends Christian of their Ruby [x] Believes in Prayer [] Reads Bible or Worship materials [] There are Spiritual issues to be addressed [place] Racker Interventions [x] Prayer [x] Active listening [] Non-anxious presence [] Spiritual/emotional support [] Crisis/trauma care [] Spiritual counseling [] Bereavement support [] Provided bereavement packet [x] Provided Bible/devotional materials [] Provided toy/stuffed animal, coloring book to patient or family member [] Provided Communion [] Anointing/[place] [] Salvation [x] Completed spiritual assessment [] Other: Impact on Illness or Injury [] Angry [] Fearful [] Anxious [] Often cries [] Exhaustion [] Unable to work [] Unable to attend druze [] Unable to walk/stand [] Unable to read [] Unable to drive [] Unable to eat/drink [] Unable to sleep [] Unable to be with family [] Patient intubated [] Other: Summary Time spent with patient 10 min
--- NOTE | 2024-05-12 14:36 | P.PN_ITS ---
Subjective 2 Subjective: Chart reviewed. No acute interim events. Appreciate cardiology recommendations. Medications: Reviewed: Yes Vitals/I&O/Wt Last Vital Signs Temp 97.5 F L 05/12/24 12:00 Pulse 74 05/12/24 12:00 Resp 20 H 05/12/24 12:00 BP 129/74 05/12/24 12:00 Pulse Ox 94 05/12/24 12:00 O2 Del Method Room Air 05/12/24 12:00 05/11/24 05/12/24 05/12/24 22:59 06:59 14:59 Intake Total 100 / 100 120 / 120 Balance 100 / 100 120 / 120 Weight last 48 hrs Weight 46.856 kg Physical Exam 2 Narrative: General: No acute distress, AO x3 HEENT: PERRLA, pupils bilaterally equal and reactive, pallors not present Chest: Normal vesicular breath sounds, no added sounds, equal good air entry bilaterally CVS: S1-S2 regular, no murmurs, no tachycardia, no gallops, no rubs Abdomen: Soft, nontender, no organomegaly, bowel sounds present Neuro: No focal deficits, no facial deformity, AO x3, power 5/5 in all limbs Data 05/11/24 18:03 05/12/24 05:08 A&P Assessment and plan (1) Ventricular arrhythmia: Patient is status post recent ICD/pacemaker placement Suspect recurrent ventricular arrhythmia secondary to severe hypokalemia Aggressively replace potassium Beta-shital Check magnesium Continuous telemetry monitoring (2) Hypokalemia: Severe hypokalemia Patient is being replaced with IV and p.o. replacement Trend levels (3) Pre-syncope: Presyncopal episode secondary to ventricular arrhythmia Tylenol as needed for large hematomas on head and left elbow Management as above (4) Hypertension: Blood pressures currently elevated Continue home medications IV hydralazine as needed Qualifiers: Hypertension type: essential hypertension Qualified Code(s): I10 - Essential (primary) hypertension (5) Chronic pain: Continue home pain regiment (6) Restless legs syndrome: Continue home Requip Plan DVT prophylaxis: SCD May 12, 2024 No further events thus far. Cardiology recommends starting amiodarone. Patient started on amiodarone 400 mg p.o. every 12 hours. Blood pressure is better controlled today. Continue amlodipine and lisinopril. If no further arrhythmias next 24 hours, plan to discharge patient home. PDMP PDMP Reviewed: Not Reviewed Attestations 2 Medical Necessity Statement*: Closely monitor for any further ICD discharges, ventricular arrhythmias. If remains stable plan to discharge home tomorrow. Coding Level of Care Code Acute Code for Chg Fwd Diagnoses Ventricular arrhythmia I49.9 Hypokalemia E87.6 Pre-syncope R55 Essential hypertension I10 Hypertension type: essential hypertension Chronic pain G89.29 Restless legs syndrome G25.81
[2024-05-12] MEDS: amiodarone 200 mg Tablet 400 MG PO (17:58)
[2024-05-12] MEDS: ropinirole 1 mg Tablet 0.5 MG PO (20:35)
[2024-05-13] VITALS (14 sets, daily range): BP systolic 120–169; BP diastolic 69–91; PULSE 70–75; RESP 12–20; TEMP 36.4–36.8; O2SAT 90–96
[2024-05-13] MEDS: oxyCODONE 5 mg IR Tab/Cap 20 MG PO ×2 (00:03→06:01)
[2024-05-13 03:10] LABS: Basophils % 0.2 %; Eosinophils # 0.7 10^3/uL (0.0-0.8); Eosinophils % 8.1 %; Hematocrit 36.1 % (36-47); Lymphocytes # 2.3 10^3/uL (0.8-4.8); Lymphocytes % 28.4 %; Mean Corpuscular HGB Conc 31.6 g/dL (30-55); Mean Corpuscular Volume 85.5 fl (85-98); Mean Platelet Volume 10.6 fL (7.4-10.4); Monocytes # 0.6 10^3/uL (0.2-0.9); Monocytes % 6.8 %; Neutrophils # 4.56 10^3/uL (1.8-7.7); Neutrophils % 56.4 %; Nucleated Red Blood Cells % 0 %; Platelet Count 244 10^3/cmm (157-399); Red Blood Count 4.22 10^6/uL (3.85-5.65); Red Cell Distribution Width 18.8 % (12.1-15.1)
[2024-05-13 03:35] LABS: Alanine Aminotransferase < 5 U/L (0-33); Albumin Level 3.8 g/dL (3.5-5.2); Alkaline Phosphatase 90 U/L (35-105); Anion Gap 16.3 (5-19); Aspartate Amino Transferase 14 U/L (0-32); Blood Urea Nitrogen 20 mg/dL (8-23); Calcium 9.4 mg/dL (8.5-10.5); Carbon Dioxide 27 mmol/L (22-29); Chloride 103 mmol/L (98-107); Creatinine Clr Calc Pharmacy 26.3416; Globulin 2.2 g/dL (1.3-4.6); Glucose 99 mg/dL (65-115); Osmolality Calculated 297 mOsm/kg (285-295); Potassium 4.3 mmol/L (3.5-5.1); Sodium 142 mmol/L (136-145); Total Bilirubin 1.1 mg/dL (0.15-1.2)
[2024-05-13] MEDS: amiodarone 200 mg Tablet 400 MG PO ×2 (05:56→17:10)
[2024-05-13] MEDS: amlodipine 10 mg Tablet PO (05:56)
[2024-05-13] MEDS: levothyroxine 75 mcg Tablet PO (05:56)
[2024-05-13] MEDS: acetaminophen 325 mg Tablet 650 MG PO (08:13)
[2024-05-13] MEDS: sertraline 50 mg Tablet 25 MG PO (08:13)
[2024-05-13] MEDS: lisinopril 10 mg Tablet PO (08:14)
[2024-05-13] MEDS: pantoprazole DR 40 mg Tablet PO ×2 (08:14→17:11)
--- NOTE | 2024-05-13 09:39 | ECG_ITS ---
[facility] Date: 2024-05-13 Pat Name: Ivan Peguero Department: Room: 104 Gender: Female Bingo Floater: : 1945 Requested By: Eileen Bright Order Number: [id number] Soledad MD: Baltazar Osborne M.D. Measurements Intervals Arthur Rate: 69 P: 183 NH: 191 QRS: -61 QRSD: 126 T: 36 QT: 472 QTc: 508 Interpretive Statements ELECTRONIC ATRIAL PACEMAKER RIGHT BUNDLE BRANCH BLOCK [120+ ms QRS DURATION, UPRIGHT V1, 40+ ms S IN I/aVL/V4/V5/V6] LEFT ANTERIOR FASCICULAR BLOCK [QRS AXIS <= -45, QR IN I, RS IN II] VOLTAGE CRITERIA FOR LVH [MEETS CRITERIA IN ONE OF: R(aVL), S(V1), R(V5), R(V5/V6)+S(V1)] Compared to ECG 05/11/2024 17:24:33 ST (T wave) deviation no longer present Electronically Signed On 05-15-2024 17:54:54 PATCH WORKER by Baltazar Osborne M.D. [email or web address] [id number]
--- NOTE | 2024-05-13 13:44 | P.PN_ITS ---
Subjective 2 Subjective: Creatinine trending up at 1.3 today. Brief run of V. tach on telemetry yesterday. Patient was planned to be discharged back to home today, however since this afternoon is now reporting that she is unable to swallow Medications: Reviewed: Yes Vitals/I&O/Wt Last Vital Signs Temp 98.0 F 05/13/24 12:00 Pulse 70 05/13/24 12:00 Resp 20 H 05/13/24 12:00 BP 120/69 05/13/24 12:00 Pulse Ox 94 05/13/24 12:00 O2 Del Method Room Air 05/13/24 12:00 O2 Flow Rate 2 05/13/24 07:47 05/12/24 05/13/24 05/13/24 22:59 06:59 14:59 Intake Total 420 / 900 0 / 900 240 / 240 Balance 420 / 900 0 / 900 240 / 240 Weight last 48 hrs Weight 50.167 kg Weight 46.856 kg Physical Exam 2 Narrative: General: No acute distress, AO x3 HEENT: PERRLA, pupils bilaterally equal and reactive, pallors not present Chest: Normal vesicular breath sounds, no added sounds, equal good air entry bilaterally CVS: S1-S2 regular, no murmurs, no tachycardia, no gallops, no rubs Abdomen: Soft, nontender, no organomegaly, bowel sounds present Neuro: No focal deficits, no facial deformity, AO x3, power 5/5 in all limbs Data 05/13/24 02:32 05/13/24 02:32 A&P Assessment and plan (1) Ventricular arrhythmia: Patient is status post recent ICD/pacemaker placement Suspect recurrent ventricular arrhythmia secondary to severe hypokalemia Aggressively replace potassium Beta-shital Check magnesium Continuous telemetry monitoring (2) Hypokalemia: Severe hypokalemia Patient is being replaced with IV and p.o. replacement Trend levels (3) Pre-syncope: Presyncopal episode secondary to ventricular arrhythmia Tylenol as needed for large hematomas on head and left elbow Management as above (4) Hypertension: Blood pressures currently elevated Continue home medications IV hydralazine as needed Qualifiers: Hypertension type: essential hypertension Qualified Code(s): I10 - Essential (primary) hypertension (5) Chronic pain: Continue home pain regiment (6) Restless legs syndrome: Continue home Requip Plan DVT prophylaxis: SCD May 12, 2024 No further events thus far. Cardiology recommends starting amiodarone. Patient started on amiodarone 400 mg p.o. every 12 hours. Blood pressure is better controlled today. Continue amlodipine and lisinopril. If no further arrhythmias next 24 hours, plan to discharge patient home. May 13, 2024 Brief run of nonsustained V. tach on telemetry from yesterday afternoon. No further episodes. No ICD discharges. Patient is continuing on amiodarone 400 mg every 12 hours. Had episode of V. tach may have been related to medication noncompliance. Creatinine trending up to 1.3. Stop lisinopril. Resume home dose of metoprolol. Patient was planned to be discharged to home today, however she states that she feels extremely unsafe going home alone by herself. She states that she has not been able to get out of the home to get her medications and is unable to do so. She does not have too many family members willing to help her. States that she does not even know where her daughter is . [facility]. Discussed this with the child welfare caseworker. Reportedly patient would have to pay [id number] for to be a [facility] and she is unable to afford the same. She states she is very weak and keeps falling at home. PT and OT evaluation have been undertaken during this hospital course. Patient was noted to exhibit some decreased endurance, however was standby assist. She was able to ambulate with a walker 50-100 feet. Referral was faxed to [facility] per patient request, we have not yet heard back regarding if they are able to accept the patient. Patient would like to stay in the hospital until she hears of a decision. This afternoon she reports sudden inability to be able to swallow. No other focal deficits on exam. States that she has no problem swallowing liquids but it is solids that are causing her a problem today. Will obtain speech therapy assessment and MBS if indicated after assessment. PDMP PDMP Reviewed: Not Reviewed Attestations 2 Medical Necessity Statement*: pending appropriate disposition planning Coding Level of Care Code Acute Code for Chg Fwd Diagnoses Ventricular arrhythmia I49.9 Hypokalemia E87.6 Pre-syncope R55 Essential hypertension I10 Hypertension type: essential hypertension Chronic pain G89.29 Restless legs syndrome G25.81
[2024-05-13] MEDS: calcium carbonate 500 mg Chew Tablet 1000 MG PO (13:58)
[2024-05-13] MEDS: metoprolol tartrate 25 mg Tablet PO (15:01)
--- NOTE | 2024-05-13 15:35 | P.PN_ITS ---
<Statement entered by Baltazar Osborne M.D - 05/13/24 23:49> Patient was evaluated and cared for in conjunction with an advanced practice practitioner. I personally examined the patient and reviewed the chart and all pertinent data including imaging, telemetry, and laboratory results. I discussed the patient in detail with the advanced practice practitioner. Please see their note for complete progress note, results and agreed upon plan of care for the patient. Patient feeling better. No more ICD shocks. Patient is stable to be discharged from cardiac standpoint. Continue amiodarone. GENERAL: Patient is alert and oriented HEART: Regular S1 and S2 LUNGS: Clear to auscultation bilaterally EXTREMITIES: Lower extremities with no edema Subjective 2 Subjective: Patient seen today with Dr. Osborne. May have had a nonsustained episode of Vtac yesterday, but could be artifact. Vitals/I&O/Wt Last Vital Signs Temp 98.0 F 05/13/24 12:00 Pulse 70 05/13/24 14:47 Resp 20 H 05/13/24 12:00 BP 120/69 05/13/24 12:00 Pulse Ox 94 05/13/24 12:00 O2 Del Method Room Air 05/13/24 12:00 O2 Flow Rate 2 05/13/24 07:47 05/13/24 05/13/24 05/13/24 06:59 14:59 22:59 Intake Total 0 / 900 360 / 360 Balance 0 / 900 360 / 360 Weight last 48 hrs Weight 110 lb 9.6 oz Weight 103 lb 4.8 oz Physical Exam 2 Narrative: This general: No apparent distress, healthy appearing, well nourished HENMT: normoceophalic Muskuloskeletal: Full ROM Respiratory: Normal respiratory effort, clear to auscultation bilaterally throughout all lung mata, no use of accessory muscles Cardio: No JVD, regular rate, regular rhythm, S1 S2 normal, no murmurs, peripheral pulses 2+ radial palpated Extremities: Full ROM, normal, normal capillary refill, no cyanosis or edema Neuro: Alert and oriented x4, no focal motor deficits Skin: No rashes or lesions noted, no wounds Data 05/13/24 02:32 05/13/24 02:32 A&P Assessment and plan (1) Ventricular tachycardia (paroxysmal): (2) Hypertension: Qualifiers: Hypertension type: essential hypertension Qualified Code(s): I10 - Essential (primary) hypertension (3) Hyperlipidemia: Qualifiers: Hyperlipidemia type: mixed hyperlipidemia Qualified Code(s): E78.2 - Mixed hyperlipidemia (4) Hypokalemia: (5) Hypothyroidism: Qualifiers: Hypothyroidism type: unspecified Qualified Code(s): E03.9 - Hypothyroidism, unspecified Plan Plan is for patient to continue amiodarone at current dose. From cardiology standpoint, may be discharged. ICD in place and working appropriately. Continue to f/u in the clinic in 1 week. PDMP PDMP Reviewed: Not Reviewed Attestations 2 Medical Necessity Statement*: Deferred to primary care. Coding Level of Care Code Acute Code for [facility] Fwd Diagnoses Ventricular tachycardia (paroxysmal) I47.20 Essential hypertension I10 Hypertension type: essential hypertension Mixed hyperlipidemia E78.2 Hyperlipidemia type: mixed hyperlipidemia Hypokalemia E87.6 Hypothyroidism, unspecified type E03.9 Hypothyroidism type: unspecified
--- NOTE | 2024-05-13 16:08 | CTR_ITS ---
PROCEDURE INFORMATION: Exam: CT Head Without Contrast Exam date and time: 05/13/2024 4:46 PM Age: 78 years old Clinical indication: Other: Aphagia TECHNIQUE: Imaging protocol: Computed tomography of the head without contrast. Radiation optimization: All CT scans at this facility use at least one of these dose optimization techniques: automated exposure control; mA and/or kV adjustment per patient size (includes targeted exams where dose is matched to clinical indication); or iterative reconstruction. COMPARISON: CT head wo con* [id number] 05/11/2024 5:42 PM RADIATION DOSE METRICS: Total DLP (mGy-cm): 1033.98 FINDINGS: Brain: No evidence of intra-axial or extra-axial hemorrhage. No mass effect or midline shift. Tapia-white differentiation is maintained. Basilar cisterns are patent. Cerebral ventricles: No hydrocephalus. Paranasal sinuses: The visualized paranasal sinuses are well aerated. Mastoid air cells: The visualized mastoids and middle ears are clear. Bones: Calvarium is intact. No evidence of acute fracture. Soft tissues: Posterior parietal scalp contusion on the right with a 2 cm scalp hematoma, improving in comparison to prior exam from 05/11/2024. CT/CT head wo con* [id number] IMPRESSION: 1. No acute intracranial abnormality.
[2024-05-13] MEDS: oxyCODONE 5 mg IR Tab/Cap 10 MG PO (17:10)
--- NOTE | 2024-05-13 17:11 | PC.NURSE ---
oxycodone given for pain in the back of the head where patient fel and has a large bruise and bump.
[2024-05-13] MEDS: ropinirole 1 mg Tablet 0.5 MG PO (20:26)
[2024-05-14] VITALS (10 sets, daily range): BP systolic 138–167; BP diastolic 70–89; PULSE 70–73; RESP 14–24; TEMP 36.5–37.2; O2SAT 94–100
[2024-05-14] MEDS: acetaminophen 325 mg Tablet 650 MG PO ×2 (00:55→22:45)
[2024-05-14 03:45] LABS: Basophils % 0.2 %; Eosinophils # 0.6 10^3/uL (0.0-0.8); Eosinophils % 6.5 %; Hematocrit 37.5 % (36-47); Lymphocytes % 20.3 %; Mean Corpuscular HGB Conc 30.7 g/dL (30-55); Mean Corpuscular Hemoglobin 27.5 pg (27-33); Mean Corpuscular Volume 89.7 fl (85-98); Mean Platelet Volume 11.1 fL (7.4-10.4); Monocytes # 0.7 10^3/uL (0.2-0.9); Monocytes % 7.1 %; Neutrophils # 6.48 10^3/uL (1.8-7.7); Neutrophils % 65.7 %; Nucleated Red Blood Cells % 0 %; Platelet Count 238 10^3/cmm (157-399); Red Blood Count 4.18 10^6/uL (3.85-5.65); Red Cell Distribution Width 19.1 % (12.1-15.1); White Blood Count 9.86 10^3/uL (3.29-11.43)
[2024-05-14 04:16] LABS: Alanine Aminotransferase 6 U/L (0-33); Albumin Level 3.7 g/dL (3.5-5.2); Alkaline Phosphatase 91 U/L (35-105); Blood Urea Nitrogen 25 mg/dL (8-23); Calcium 9.3 mg/dL (8.5-10.5); Carbon Dioxide 25 mmol/L (22-29); Chloride 100 mmol/L (98-107); Creatinine Clr Calc Pharmacy 25.4915; Globulin 2.3 g/dL (1.3-4.6); Glucose 101 mg/dL (65-115); Osmolality Calculated 295 mOsm/kg (285-295); Sodium 140 mmol/L (136-145)
[2024-05-14 04:27] LABS: Anion Gap 19.1 (5-19); Aspartate Amino Transferase 16 U/L (0-32); Potassium 4.1 mmol/L (3.5-5.1)
[2024-05-14] MEDS: levothyroxine 75 mcg Tablet PO (06:08)
[2024-05-14] MEDS: amlodipine 10 mg Tablet PO (06:09)
[2024-05-14] MEDS: amiodarone 200 mg Tablet 400 MG PO ×2 (06:09→17:35)
[2024-05-14] MEDS: sertraline 50 mg Tablet 25 MG PO (09:33)
[2024-05-14] MEDS: oxyCODONE 5 mg IR Tab/Cap 10 MG PO ×2 (09:33→20:05)
[2024-05-14] MEDS: pantoprazole DR 40 mg Tablet PO ×2 (09:34→17:35)
[2024-05-14] MEDS: albuterol 2.5 mg/3 mL Neb INHALATION (10:09)
--- NOTE | 2024-05-14 11:35 | PM.PN ---
Subjective Subjective: No new complaints today. States her dysphagia has resolved today. CT of her head was negative for any acute abnormalities. She is off lisinopril. Creatinine slightly up at 1.4. Urine output not adequately charted. Medications: Reviewed: Yes Vitals/I&O/Wt Last Vital Signs Temp 97.8 F 05/14/24 11:00 Pulse 73 05/14/24 11:00 Resp 24 H 05/14/24 11:00 BP 138/70 05/14/24 11:00 Pulse Ox 94 05/14/24 11:00 O2 Del Method Room Air 05/14/24 11:00 O2 Flow Rate 2 05/13/24 07:47 05/13/24 05/14/24 05/14/24 22:59 06:59 14:59 Intake Total 120 / 480 360 / 360 Balance 120 / 480 360 / 360 Weight last 48 hrs Weight 51.71 kg Weight 50.167 kg Physical Exam Narrative: General: No acute distress, AO x3 HEENT: PERRLA, pupils bilaterally equal and reactive, pallors not present Chest: Normal vesicular breath sounds, no added sounds, equal good air entry bilaterally CVS: S1-S2 regular, no murmurs, no tachycardia, no gallops, no rubs Abdomen: Soft, nontender, no organomegaly, bowel sounds present Neuro: No focal deficits, no facial deformity, AO x3, power 5/5 in all limbs Data 05/14/24 02:55 05/14/24 02:55 A&P Assessment and plan (1) Ventricular arrhythmia: Patient is status post recent ICD/pacemaker placement Suspect recurrent ventricular arrhythmia secondary to severe hypokalemia Aggressively replace potassium Beta-shital Check magnesium Continuous telemetry monitoring (2) Hypokalemia: Severe hypokalemia Patient is being replaced with IV and p.o. replacement Trend levels (3) Pre-syncope: Presyncopal episode secondary to ventricular arrhythmia Tylenol as needed for large hematomas on head and left elbow Management as above (4) Hypertension: Blood pressures currently elevated Continue home medications IV hydralazine as needed Qualifiers: Hypertension type: essential hypertension Qualified Code(s): I10 - Essential (primary) hypertension (5) Chronic pain: Continue home pain regiment (6) Restless legs syndrome: Continue home Requip Plan DVT prophylaxis: SCD May 12, 2024 No further events thus far. Cardiology recommends starting amiodarone. Patient started on amiodarone 400 mg p.o. every 12 hours. Blood pressure is better controlled today. Continue amlodipine and lisinopril. If no further arrhythmias next 24 hours, plan to discharge patient home. May 13, 2024 Brief run of nonsustained V. tach on telemetry from yesterday afternoon. No further episodes. No ICD discharges. Patient is continuing on amiodarone 400 mg every 12 hours. Had episode of V. tach may have been related to medication noncompliance. Creatinine trending up to 1.3. Stop lisinopril. Resume home dose of metoprolol. Patient was planned to be discharged to home today, however she states that she feels extremely unsafe going home alone by herself. She states that she has not been able to get out of the home to get her medications and is unable to do so. She does not have too many family members willing to help her. States that she does not even know where her daughter is . Patient wishes to transition to care home facility for long-term. Discussed this with the case finisher. Reportedly patient would have to pay [id number] for to be a long-term resident at [facility] and she is unable to afford the same. She states she is very weak and keeps falling at home. PT and OT evaluation have been undertaken during this hospital course. Patient was noted to exhibit some decreased endurance, however was standby assist. She was able to ambulate with a walker 50-100 feet. Referral was faxed to [facility] per patient request, we have not yet heard back regarding if they are able to accept the patient. Patient would like to stay in the hospital until she hears of a decision. This afternoon she reports sudden inability to be able to swallow. No other focal deficits on exam. States that she has no problem swallowing liquids but it is solids that are causing her a problem today. Will obtain speech therapy assessment and MBS if indicated after assessment. May 14, 2024. No acute events. Dysphagia has resolved today. Creatinine trending up slightly at 1.4 today. Encouraged oral hydration for now. Continue to hold lisinopril. recheck with am labs. Resume home dose of metoprolol. Blood pressure is well-controlled this morning. Continue amiodarone 400 mg every 12 hours. Patient has been accepted at [facility], pending insurance authorization. PDMP PDMP Reviewed: Not Reviewed Attestations Medical Necessity Statement*: appropriate disposition planning Coding Level of Care Code Acute Code for [facility] Fwd Diagnoses Ventricular arrhythmia I49.9 Hypokalemia E87.6 Pre-syncope R55 Essential hypertension I10 Hypertension type: essential hypertension Chronic pain G89.29 Restless legs syndrome G25.81
[2024-05-14] MEDS: metoprolol tartrate 25 mg Tablet PO (13:20)
[2024-05-14] MEDS: oxybutynin 5 mg Tablet 10 MG PO (13:20)
[2024-05-14] MEDS: ropinirole 1 mg Tablet 0.5 MG PO (20:06)
[2024-05-15] VITALS (10 sets, daily range): BP systolic 142–174; BP diastolic 79–96; PULSE 70; RESP 12–18; TEMP 36.6–37; O2SAT 92–99
[2024-05-15] MEDS: cyclobenzaprine 10 mg Tablet 5 MG PO (00:20)
[2024-05-15 04:48] LABS: Alanine Aminotransferase < 5 U/L (0-33); Albumin Level 3.4 g/dL (3.5-5.2); Alkaline Phosphatase 82 U/L (35-105); Anion Gap 16.9 (5-19); Aspartate Amino Transferase 11 U/L (0-32); Blood Urea Nitrogen 24 mg/dL (8-23); Calcium 9.3 mg/dL (8.5-10.5); Carbon Dioxide 24 mmol/L (22-29); Chloride 103 mmol/L (98-107); Creatinine Clr Calc Pharmacy 29.7401; Globulin 2.2 g/dL (1.3-4.6); Glucose 107 mg/dL (65-115); Osmolality Calculated 295 mOsm/kg (285-295); Potassium 3.9 mmol/L (3.5-5.1); Sodium 140 mmol/L (136-145); Total Bilirubin 1.1 mg/dL (0.15-1.2); Total Protein 5.6 g/dL (6.6-8.7)
[2024-05-15] MEDS: amiodarone 200 mg Tablet 400 MG PO (05:40)
[2024-05-15] MEDS: amlodipine 10 mg Tablet PO (05:40)
[2024-05-15] MEDS: levothyroxine 75 mcg Tablet PO (05:41)
[2024-05-15] MEDS: oxyCODONE 5 mg IR Tab/Cap 10 MG PO ×3 (05:47→15:28)
--- NOTE | 2024-05-15 07:21 | PC.NURSE ---
9248-Patient c/o leg cramping and pain. PRN pain meds given without any relief. Requesting something to help with leg cramps. Recieved orders for flexeril 5 mg TID PRN. 6394- Patient having difficulting sleeping and requesting something to help with sleep. Awaiting reply.
[2024-05-15] MEDS: metoprolol tartrate 25 mg Tablet PO (08:37)
[2024-05-15] MEDS: pantoprazole DR 40 mg Tablet PO (08:37)
[2024-05-15] MEDS: sertraline 50 mg Tablet 25 MG PO (08:37)
[2024-05-15] MEDS: hyDRALAzine 10 mg Tablet PO ×2 (09:35→13:57)
--- NOTE | 2024-05-15 13:09 | PM.DCS ---
Discharge Providers Date of Admission: 05/11/24 20:20 Date of Discharge: May 15, 2024 Attending Provider at Admission: Burt Bowden MD Attending Provider at Discharge: Eileen Bright MD Primary Care Provider: Lynda Lopez MD Diagnoses at Discharge Discharge Diagnosis (1) Ventricular arrhythmia: Status: Acute (2) Hypokalemia: Status: Acute (3) Pre-syncope: Status: Acute (4) Hypertension: Status: Chronic Qualifiers: Hypertension type: essential hypertension Qualified Code(s): I10 - Essential (primary) hypertension (5) Chronic pain: Status: Chronic (6) Restless legs syndrome: Status: Chronic Reason for Visit Reason for Visit: head lac s/p fall Hospital Course Hospital Course Ivan Peguero is a 78 year old female with a past medical history significant for polymorphic ventricular tachycardia status post recent ICD placement, hiatal hernia, chronic pain, osteoarthritis, hypertension, hypothyroidism, restless leg syndrome, fibromyalgia, hyperlipidemia, coronary artery disease and multiple other comorbidities who presents to the emergency department with near syncopal episode. Patient reports prior to arrival she had an episode of feeling warm and upon standing she nearly passed out hitting the back of her head and left elbow. Device interrogation revealed the patient will have an episode of VT/V-fib which was successfully terminated with an ICD discharge. She was evaluated by cardiology service. Started on amiodarone 400 mg every 12 hours, and is being discharged today with advised to continue amiodarone taper. With initiation of amiodarone she had 1 nonsustained episode of V. tach on May 13 however since then has been in paced rhythm. 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 Additionally patient takes metoprolol 25 mg p.o. daily which has been continued. Lisinopril was held due to JASON during the hospital course. Creatinine peaked at 1.4. With holding the lisinopril it is trending down currently at 1.2. Advised to hold over the next week. Hydralazine has been added instead for antihypertensive regimen Lisinopril remains on hold. Eventually patient should be able to get back on the MIHIR inhibitor. Follow-up arranged with cardiology as outpatient in 1 week. Patient is chronically on oxycodone for pain. She does not have an appointment with pain management until next . Prescription for oxycodone is provided unfortunately can be seen by her pain management physician. She reported a history of chronic dizziness and recurrent falls at home. She was evaluated by physical therapy. She did exhibit some reduced endurance. No orthostatic drop was found. We attempted to place her at custodial facility for continued rehab however this was declined per insurance. She is being discharged home today with home health. Physical Exam Narrative: General: No acute distress, AO x3 HEENT: PERRLA, pupils bilaterally equal and reactive, pallors not present Chest: Normal vesicular breath sounds, no added sounds, equal good air entry bilaterally CVS: S1-S2 regular, no murmurs, no tachycardia, no gallops, no rubs Abdomen: Soft, nontender, no organomegaly, bowel sounds present Neuro: No focal deficits, no facial deformity, AO x3, power 5/5 in all limbs Discharge Data Studies Completed and Pending Completed Studies During Hospitalization Category Date Time Status CT cervical spin wo con* [id number] Stat Cat Scan 05/11/24 17:[address] head wo con* [id number] Routine Cat Scan 05/13/24 16:[address] head wo con* [id number] Stat Cat Scan 05/11/24 17:16 Completed XR chest 1V portable [id number] Stat Exams 05/11/24 17:16 Completed XR elbow LT min 3V* [id number] Stat Exams 05/11/24 17:16 Completed Radiology Impressions Cervical Spine CT 05/11/24 17:16 IMPRESSION: 1. No CT evidence of acute cervical spine traumatic injury. 2. Additional findings, as above. Chest X-Ray 05/11/24 17:16 IMPRESSION: No acute pathology or significant interval change. Large hiatal hernia and cardiac pacemaker/ICD again noted. Elbow X-Ray 05/11/24 17:16 IMPRESSION: Posterior soft tissue swelling of the distal upper arm. No fracture evident. Head CT 05/13/24 16:08 IMPRESSION: 1. No acute intracranial abnormality. Laboratory Results WBC 9.86 10^3/uL (3.29-11.43) 05/14/24 02:55 RBC 4.18 10^6/uL (3.85-5.65) 05/14/24 02:55 Hgb 11.50 g/dL (11.27-16.99) 05/14/24 02:55 Hct 37.5 % (36-47) 05/14/24 02:55 MCV 89.7 fl (85-98) 05/14/24 02:55 MCH 27.5 pg (27-33) 05/14/24 02:55 MCHC 30.7 g/dL (30-55) 05/14/24 02:55 RDW 19.1 % (12.1-15.1) H 05/14/24 02:55 Plt Count 238 10^3/cmm (157-399) 05/14/24 02:55 MPV 11.1 fL (7.4-10.4) H 05/14/24 02:55 Neut % (Auto) 65.7 % 05/14/24 02:55 Lymph % (Auto) 20.3 % 05/14/24 02:55 [place] % (Auto) 7.1 % 05/14/24 02:55 Eos % (Auto) 6.5 % 05/14/24 02:55 Baso % (Auto) 0.2 % 05/14/24 02:55 Neut # (Auto) 6.48 10^3/uL (1.8-7.7) 05/14/24 02:55 Lymph # (Auto) 2.0 10^3/uL (0.8-4.8) 05/14/24 02:55 [place] # (Auto) 0.7 10^3/uL (0.2-0.9) 05/14/24 02:55 Eos # (Auto) 0.6 10^3/uL (0.0-0.8) 05/14/24 02:55 Baso # (Auto) 0.0 10^3/uL (0.0-0.1) 05/14/24 02:55 Nucleated RBC % (auto) 0 % 05/14/24 02:55 Nucleated RBCs # 0.0 /100WBC 05/14/24 02:55 Sodium 140 mmol/L (136-145) 05/15/24 04:05 Potassium 3.9 mmol/L (3.5-5.1) 05/15/24 04:05 Chloride 103 mmol/L (98-107) 05/15/24 04:05 Carbon Dioxide 24 mmol/L (22-29) 05/15/24 04:05 Anion Gap 16.9 (5-19) 05/15/24 04:05 BUN 24 mg/dL (8-23) H 05/15/24 04:05 Creatinine 1.2 mg/dL (0.5-0.9) H 05/15/24 04:05 GFR Calculation Not Reportable 05/15/24 04:05 Glucose 107 mg/dL (65-115) 05/15/24 04:05 Calculated Osmolality 295 mOsm/kg (285-295) 05/15/24 04:05 Calcium 9.3 mg/dL (8.5-10.5) 05/15/24 04:05 Phosphorus 2.0 mg/dL (2.5-4.5) L 05/12/24 05:08 Magnesium 2.0 mg/dL (1.7-2.3) 05/13/24 02:32 Total Bilirubin 1.1 mg/dL (0.15-1.2) 05/15/24 04:05 AST 11 U/L (0-32) 05/15/24 04:05 ALT < 5 U/L (0-33) 05/15/24 04:05 Alkaline Phosphatase 82 U/L (35-105) 05/15/24 04:05 Total Protein 5.6 g/dL (6.6-8.7) L 05/15/24 04:05 Albumin 3.4 g/dL (3.5-5.2) L 05/15/24 04:05 Globulin 2.2 g/dL (1.3-4.6) 05/15/24 04:05 Urine Color Yellow (Yellow) 05/11/24 17:26 Urine Appearance Clear (CLEAR) 05/11/24 17: Urine pH 8.0 (5-7) A 05/11/24 17:26 Ur Specific [place] 1.007 (1.005-1.030) 05/11/24 17:26 Urine Protein Trace (Negative) A 05/11/24 17:26 Urine Glucose (UA) Negative (Normal) 05/11/24 17: Urine Ketones Negative (Negative) 05/11/24 17: Urine Blood Negative (Negative) 05/11/24 17:26 Urine Nitrate Negative (Negative) 05/11/24 17: Urine Bilirubin Negative (Negative) 05/11/24 17: Urine Urobilinogen 0.2 mg/dL (Negative) 05/11/24 17:26 Ur Leukocyte Esterase Negative (Negative) 05/11/24 17:26 Urine RBC 0-2 /hpf (0-2) 05/11/24 17:26 Urine WBC 0-5 /hpf (0-5) 05/11/24 17:26 Ur Squamous Epith Cells 0-5 /hpf (0-5) 05/11/24 17:26 Amorphous Sediment Not Reportable 05/11/24 17:26 Urine Bacteria Trace /hpf (NONE) 05/11/24 17:26 Hyaline Casts 0.40 /lpf 05/11/24 17:26 Vitals Last Vital Signs Temp 98.3 F 05/15/24 11:17 Pulse 70 05/15/24 11:17 Resp 14 05/15/24 11:44 BP 142/79 05/15/24 11:17 Pulse Ox 95 05/15/24 11:44 O2 Del Method Room Air 05/15/24 11:17 O2 Flow Rate 2 05/13/24 07:47 Discharge Plan Discharge Patient Disposition: Home Health Service Condition: Stable Prescriptions: New amiodarone [Pacerone] 200 mg Tablet 400 mg PO Q12H 30 Days Qty: 120 0RF Rx Instructions: take 400mg BID for 5 days, then reduce dose to 200BID x7 d, then 200mg daily amlodipine 10 mg Tablet 10 mg PO QAM 30 Days Qty: 30 0RF hydralazine 10 mg Tablet 10 mg PO TID 30 Days Qty: 90 0RF Rx Instructions: you can stop this when you get back on lisinopril oxycodone 5 mg Tablet 10 mg PO Q4H PRN (Reason: Severe Pain) 7 Days Qty: 28 0RF Continued sertraline 25 mg tablet 25 mg PO DAILY Qty: 100 0RF cyanocobalamin (vitamin B-12) [Vitamin B-12] 1,000 mcg tablet 1,000 mcg PO DAILY Qty: 90 3RF budesonide-formoterol [Symbicort] 160-4.5 mcg/actuation HFA aerosol inhaler 2 puff INHALATION BID Qty: 10.2 5RF Calcium 600 with Vitamin D3 600 mg(1,500mg) -400 unit Tablet,Chewable 1 tab PO DAILY pantoprazole 40 mg Tablet,Delayed Release (Dr/Ec) 40 mg PO BID Qty: 60 0RF sertraline 100 mg tablet 100 mg PO QAM levothyroxine 75 mcg tablet 75 mcg PO QAM ondansetron 4 mg tablet,disintegrating 4 mg PO Q6H PRN (Reason: nausea and vomiting) Qty: 30 0RF oxycodone 10 mg tablet 10 - 20 mg PO Q4H PRN (Reason: Pain, Moderate) Rx Instructions: TAKE 1 TO 2 TABLETS BY MOUTH EVERY 4 TO 6 HOURS NEEDED FOR PAIN max 6 PER day ferrous gluconate 324 mg (38 mg iron) tablet 324 mg PO BID ropinirole 0.5 mg tablet 0.5 mg PO BEDTIME metoprolol tartrate 25 mg tablet 25 mg PO DAILY Held lisinopril 10 mg tablet 10 mg PO DAILY Hold Instructions: Resume on 05/20/24. hold until follow up with cardiology Discontinued amiodarone 200 mg tablet 200 mg PO DAILY amlodipine 5 mg tablet 5 mg PO DAILY No Action (DME) Monet [employer]fume Maker See Rx Instructions .Route .MEDSUPPLY Qty: 1 0RF Rx Instructions: As directed by HOME Discharge Orders: Discharge Order (Routine); Ordered 05/15/24 Ordered By: Eileen Bright Referrals: Kerline Mejía NP [Nurse Practitioner] - 05/28/24 1:30 pm Lynda Lopez MD [Primary Care Provider] - 06/30/24 10:30 am (The clinic has placed you on a waiting list for the available next appointment. Clinic will contact you to with any changes to your appointment. Thank you. ) Patient Instructions: Amiodarone (By mouth), Hydralazine (By mouth), Amlodipine (By mouth), Heart Healthy Diet (DC), Hypokalemia (DC), Syncope (DC), Opioid Safety Discharge Attestations Time Spent in Discharge Care*: greater than 30 min Quality Metrics Clinical Quality Measures [ No reported AMI, CVA or VTE this stay] Coding Level of Care Code Acute Code for Chg Fwd Diagnoses Ventricular arrhythmia I49.9 Hypokalemia E87.6 Pre-syncope R55 Essential hypertension I10 Hypertension type: essential hypertension Chronic pain G89.29 Restless legs syndrome G25.81
[2024-05-15] MEDS: acetaminophen 325 mg Tablet 650 MG PO (13:57)
== END 2024-05-15 16:26 | disposition home health service (06) ==
LOC: ER 20:53 → CSU 21:57
PROVIDERS: Admitting Provider Internal Medicine; Emergency Provider Emergency Medicine; PCP Family Medicine; Visit Provider Student in an Organized Health Care Education/Training Program
DX: I49.01 Ventricular fibrillation (principal); F32.9 Major depressive disorder, single episode, unspecified; E87.6 Hypokalemia; W18.30XA Fall on same level, unspecified, initial encounter; Z95.0 Presence of cardiac pacemaker; Z79.899 Other long term (current) drug therapy; Z79.890 Hormone replacement therapy; Z87.440 Personal history of urinary (tract) infections; E03.9 Hypothyroidism, unspecified; I25.10 Atherosclerotic heart disease of native coronary artery without angina pectoris; I25.2 Old myocardial infarction; I10 Essential (primary) hypertension; G25.81 Restless legs syndrome; M79.7 Fibromyalgia; Z79.891 Long term (current) use of opiate analgesic; Z90.710 Acquired absence of both cervix and uterus; Z87.891 Personal history of nicotine dependence; R55 Syncope and collapse; G89.29 Other chronic pain; M19.90 Unspecified osteoarthritis, unspecified site; E78.2 Mixed hyperlipidemia; I47.29 Other ventricular tachycardia; R29.6 Repeated falls; R13.10 Dysphagia, unspecified; S50.02XA Contusion of left elbow, initial encounter; S00.93XA Contusion of unspecified part of head, initial encounter; I35.0 Nonrheumatic aortic (valve) stenosis; I34.0 Nonrheumatic mitral (valve) insufficiency; K59.00 Constipation, unspecified; M81.0 Age-related osteoporosis without current pathological fracture; K44.9 Diaphragmatic hernia without obstruction or gangrene; Z90.49 Acquired absence of other specified parts of digestive tract
CPT/HCPCS: 12345; 36415; 70450; 71045; 72125; 73080; 80048; 80053; 81001; 83735; 84100; 85025; 92610; 93005; 94640; 94760; 96365; 97110; 97116; 97161; 97166; 99285; A9270; G0378; J3480; J7613

== ENCOUNTER 2024-05-19 16:38 | Emergency (ER) | payer MEDICARE, SELFPAY ==
[2024-05-19 16:46] VITALS: BP 204/103; PULSE 91; RESP 16; TEMP 36.7; O2SAT 98
--- NOTE | 2024-05-19 17:20 | ECG_ITS ---
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1945 Requested By: Vin Velez Order Number: [id number] Soledad MD: ARNOLD ALBERTS Measurements Intervals [place] Rate: 74 P: 205 MO: 209 QRS: -45 QRSD: 137 T: -28 QT: 468 QTc: 520 Interpretive Statements ELECTRONIC ATRIAL PACEMAKER RIGHT BUNDLE BRANCH BLOCK [120+ ms QRS DURATION, UPRIGHT V1, 40+ ms S IN I/aVL/V4/V5/V6] LEFT ANTERIOR FASCICULAR BLOCK [QRS AXIS <= -45, QR IN I, RS IN II] VOLTAGE CRITERIA FOR LVH [MEETS CRITERIA IN ONE OF: R(aVL), S(V1), R(V5), R(V5/V6)+S(V1)] POSSIBLE ANTEROSEPTAL MYOCARDIAL INFARCTION , OF INDETERMINATE AGE [30 ms Q WAVE IN V1-V4] MODERATE T-WAVE ABNORMALITY, CONSIDER LATERAL ISCHEMIA [-0.1+ mV T-WAVE IN I/aVL/V5/V6] Electronically Signed On 05-20-2024 23:34:59 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
[2024-05-19 19:52] LABS: Basophils % 0.3 %; Eosinophils # 0.6 10^3/uL (0.0-0.8); Eosinophils % 6.1 %; Hematocrit 36.5 % (36-47); Lymphocytes # 2.1 10^3/uL (0.8-4.8); Lymphocytes % 22.6 %; Mean Corpuscular HGB Conc 32.3 g/dL (30-55); Mean Corpuscular Hemoglobin 27.6 pg (27-33); Mean Corpuscular Volume 85.3 fl (85-98); Mean Platelet Volume 10.2 fL (7.4-10.4); Monocytes # 0.8 10^3/uL (0.2-0.9); Monocytes % 8.7 %; Neutrophils # 5.78 10^3/uL (1.8-7.7); Neutrophils % 61.9 %; Nucleated Red Blood Cells % 0 %; Platelet Count 308 10^3/cmm (157-399); Red Blood Count 4.28 10^6/uL (3.85-5.65); Red Cell Distribution Width 18.4 % (12.1-15.1); White Blood Count 9.34 10^3/uL (3.29-11.43)
[2024-05-19 20:12] LABS: Alanine Aminotransferase 10 U/L (0-33); Alkaline Phosphatase 102 U/L (35-105); Anion Gap 15.5 (5-19); Aspartate Amino Transferase 18 U/L (0-32); Blood Urea Nitrogen 12 mg/dL (8-23); Carbon Dioxide 24 mmol/L (22-29); Chloride 104 mmol/L (98-107); Globulin 2.3 g/dL (1.3-4.6); Glucose 92 mg/dL (65-115); Osmolality Calculated 289 mOsm/kg (285-295); Potassium 3.5 mmol/L (3.5-5.1); Sodium 140 mmol/L (136-145); Total Bilirubin 1.6 mg/dL (0.15-1.2); Total Protein 6.3 g/dL (6.6-8.7)
--- NOTE | 2024-05-19 20:39 | W.ED.GENADLT ---
HPI - General Adult General: Chief complaint: General Medical Stated complaint: htn Time Seen by Provider: 05/19/24 20:36 History of Present Illness: 78-year-old woman with a history of hypertension, chronic pain syndrome on chronic opiate therapy, depression, chronic kidney disease, hypothyroidism, coronary artery disease, hyperlipidemia, hypertension and restless legs who presents to the emergency room with concern for her restless leg syndrome and her blood pressure. Apparently she has not taken any of her meds for the last few days and says she does not feel like taking them. No chest pain. No shortness of breath. She is quite concerned about her restless legs at this time. Her blood pressure was a bit elevated on presentation. No altered mental status. No focal motor deficits. No fevers. No chest pain. No vomiting. Related Data Home Medications ?Medication ?Instructions ?Recorded ?Confirmed calcium 600 mg (as carbonate)-vit 1 tab PO DAILY 03/28/19 05/12/24 D3 10 mcg (400 unit) chewable tablet (Calcium 600 with Vitamin D3) oxycodone 10 mg tablet 10 - 20 mg PO Q4H PRN Pain, 11/19/23 05/12/24 Moderate ferrous gluconate 324 mg (38 mg 324 mg PO BID 04/14/24 05/12/24 iron) tablet levothyroxine 75 mcg tablet 75 mcg PO QAM 05/09/24 05/12/24 lisinopril 10 mg tablet 10 mg PO DAILY 05/09/24 05/12/24 Held on 05/15/24. Instructions: Resume on 05/20/24. hold until follow up with cardiology sertraline 100 mg tablet 100 mg PO QAM 05/09/24 05/12/24 metoprolol tartrate 25 mg tablet 25 mg PO DAILY 05/12/24 05/12/24 ropinirole 0.5 mg tablet 0.5 mg PO BEDTIME 05/12/24 05/12/24 Previous Rx's ?Medication ?Instructions ?Recorded Monet Heatoner Toe Reading Instructor #1 ea 10/03/22 pantoprazole 40 mg tablet,delayed 40 mg PO BID #60 tabs 12/14/23 release sertraline 25 mg tablet 25 mg PO DAILY #100 tabs 02/15/24 budesonide-formoterol HFA 160 2 puff inhalation BID #10.2 grams 04/23/24 mcg-4.5 mcg/actuation aerosol inhaler (Symbicort) ondansetron 4 mg disintegrating 4 mg PO Q6H PRN nausea and 05/09/24 tablet vomiting #30 tabs amiodarone 200 mg tablet (Pacerone) 400 mg (2 x 200 mg) PO Q12H 30 05/13/24 days #120 tabs amlodipine 10 mg tablet 10 mg PO QAM 30 days #30 tabs 05/13/24 hydralazine 10 mg tablet 10 mg PO TID 30 days #90 tabs 05/15/24 oxycodone 5 mg tablet 10 mg (2 x 5 mg) PO Q4H PRN Severe 05/15/24 Pain 7 days #28 tabs cyanocobalamin (vitamin B-12) 1,000 mcg PO DAILY #90 tabs 05/16/24 1,000 mcg tablet (Vitamin B-12) aripiprazole 5 mg tablet 5 mg PO .qpm #30 tabs 05/19/24 Allergies Allergy/AdvReac Type Severity Reaction Status Date / Time No Known Allergies Allergy Verified 05/19/24 16:50 Review of Systems Narrative: Constitutional symptoms: Negative except as documented in HPI. Skin symptoms: Negative except as documented in HPI. Eye symptoms: Negative except as documented in HPI. ENMT symptoms: Negative except as documented in HPI. Respiratory symptoms: Negative except as documented in HPI. Cardiovascular symptoms: Negative except as documented in HPI. Gastrointestinal symptoms: Negative except as documented in HPI. Genitourinary symptoms: Negative except as documented in HPI. Musculoskeletal symptoms: Negative except as documented in HPI. Neurologic symptoms: Negative except as documented in HPI. Psychiatric symptoms: Negative except as documented in HPI. Endocrine symptoms: Negative except as documented in HPI. PFSH ED PFSH: Medical History Long-term current use of opiate analgesic Goes to [facility] Depression, major Mitral regurgitation Aortic valve stenosis Mitral regurgitation Exocrine pancreatic insufficiency Renal insufficiency Hiatal hernia with GERD Hypothyroidism Enrolled in chronic care management Osteoporosis Atherosclerotic heart disease of [place] coronary artery with other forms of angina pectoris Abnormal cardiovascular stress test NSTEMI (non-ST elevated myocardial infarction) Hyperlipidemia Hypertension Past heart attack Pain management contract signed Restless legs syndrome Fibromyalgia Chronic low back pain Dr. Benavidez Rxes pain meds Surgical History History of implantable cardiac defibrillator (ICD) Olivia SG 04/19--pacemaker/defibrillator Hx of cardiac catheterization 1.19.25 OZH--no obstructive disease Hx of esophagogastroduodenoscopy 3.28.24 large hiatal hernia; gastritis Hx of colonoscopy 10.4.21 normal anastomosis S/P foot surgery History of mandibular surgery R jaw--has titanium plate; done for tumor--benign History of bowel resection benign growth H/O ileostomy Hx of appendectomy (~1973) Hx of hysterectomy (~1973) still has ovaries; had hyst due to bleeding; no cancer History of reversal of ileostomy Hx of tubal ligation Hx of foot surgery (~11/2013) RIGHT FOOT Family History Brother , BONE METS Cancer COLON CANCER Mother Heart disease Family history of thyroid problem Grandmother Heart disease Father Hyperlipidemia Bone cancer Social History Smoking and tobacco/nicotine status: former use of tobacco/nicotine Quit status (tobacco/nicotine): has quit using Year quit tobacco: quit 1989 Second hand smoke exposure: No Alcohol intake: never Substance/Drug Use: never Lives independently: Yes Household members: none Marital status: / Number of children: 3 Highest education level completed: Some College, No Degree Current occupational status: retired 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 Skin: Warm, dry. Head: Normocephalic, atraumatic. Neck: Supple, trachea midline. Eye: Extraocular movements are intact. Ears, nose, mouth and throat: mucosa moist. Cardiovascular: Regular, Normal peripheral perfusion. Respiratory: Lungs are clear to auscultation, respirations are non-labored, breath sounds are equal, Symmetrical chest wall expansion. Gastrointestinal: Soft, Nontender, Non distended Musculoskeletal: Normal ROM, no deformity. Neurological: Alert and oriented, No focal neurological deficit observed. Psychiatric: Cooperative, appropriate mood & affect. Course Vital Signs: Vital signs: Vital Signs Temperature 98.1 F 05/19/24 16:46 Pulse Rate 71 05/19/24 22:45 Respiratory Rate 20 H 05/19/24 22:45 Blood Pressure 203/121 05/19/24 22:45 Pulse Oximetry 95 05/19/24 22:45 Oxygen Delivery Me thod Room Air 05/19/24 22:45 MDM - General Adult Medical Decision Making Medical decision making: Differential diagnosis including but not limited to and based on the above HPI, review of systems and physical exam: Patient presents with hypertension: Essential hypertension. Stroke. acute coronary syndrome. kidney failure. congestive heart failure. anxiety Orders placed to evaluate differential diagnosis based on the above differential, HPI and physical exam Lab Review: Laboratory results were reviewed and interpreted by myself the emergency room physician. Lab work is unremarkable. No leukocytosis. No anemia. No renal failure. I reviewed the patient's medical record. Reexamination: Patient remained stable. No increased work of breathing. No altered mental status. No focal motor deficits. Blood pressure is improved with small dose of ropinirole and Ativan. Assessment and plan: Hypertension ?P.o. Ativan, p.o. ropinirole, IV hydralazine and her home p.o. oxycodone - Discharged home - Discussed findings and plan with patient. Answered any questions. - All laboratory values were reviewed and interpreted personally by myself, the ER physician - Evaluation and treatment of this problem were appropriate in the emergency setting Lab Data 05/19/24 19:38 05/19/24 19:38 Laboratory Results WBC 9.34 10^3/uL (3.29-11.43) 05/19/24 19:38 RBC 4.28 10^6/uL (3.85-5.65) 05/19/24 19:38 Hgb 11.80 g/dL (11.27-16.99) 05/19/24 19:38 Hct 36.5 % (36-47) 05/19/24 19:38 MCV 85.3 fl (85-98) 05/19/24 19:38 MCH 27.6 pg (27-33) 05/19/24 19:38 MCHC 32.3 g/dL (30-55) 05/19/24 19:38 RDW 18.4 % (12.1-15.1) H 05/19/24 19:38 Plt Count 308 10^3/cmm (157-399) 05/19/24 19:38 MPV 10.2 fL (7.4-10.4) 05/19/24 19:38 Neut % (Auto) 61.9 % 05/19/24 19:38 Lymph % (Auto) 22.6 % 05/19/24 19:38 [place] % (Auto) 8.7 % 05/19/24 19:38 Eos % (Auto) 6.1 % 05/19/24 19:38 Baso % (Auto) 0.3 % 05/19/24 19:38 Neut # (Auto) 5.78 10^3/uL (1.8-7.7) 05/19/24 19:38 Lymph # (Auto) 2.1 10^3/uL (0.8-4.8) 05/19/24 19:38 [place] # (Auto) 0.8 10^3/uL (0.2-0.9) 05/19/24 19:38 Eos # (Auto) 0.6 10^3/uL (0.0-0.8) 05/19/24 19:38 Baso # (Auto) 0.0 10^3/uL (0.0-0.1) 05/19/24 19:38 Nucleated RBC % (auto) 0 % 05/19/24 19:38 Nucleated RBCs # 0.0 /100WBC 05/19/24 19:38 Sodium 140 mmol/L (136-145) 05/19/24 19:38 Potassium 3.5 mmol/L (3.5-5.1) 05/19/24 19:38 Chloride 104 mmol/L (98-107) 05/19/24 19:38 Carbon Dioxide 24 mmol/L (22-29) 05/19/24 19:38 Anion Gap 15.5 (5-19) 05/19/24 19:38 BUN 12 mg/dL (8-23) 05/19/24 19:38 Creatinine 0.9 mg/dL (0.5-0.9) 05/19/24 19:38 GFR Calculation Not Reportable 05/19/24 19:38 Glucose 92 mg/dL (65-115) 05/19/24 19:38 Calculated Osmolality 289 mOsm/kg (285-295) 05/19/24 19:38 Calcium 10.0 mg/dL (8.5-10.5) 05/19/24 19:38 Total Bilirubin 1.6 mg/dL (0.15-1.2) H 05/19/24 19:38 AST 18 U/L (0-32) 05/19/24 19:38 ALT 10 U/L (0-33) 05/19/24 19:38 Alkaline Phosphatase 102 U/L (35-105) 05/19/24 19:38 Total Protein 6.3 g/dL (6.6-8.7) L 05/19/24 19:38 Albumin 4.0 g/dL (3.5-5.2) 05/19/24 19:38 Globulin 2.3 g/dL (1.3-4.6) 05/19/24 19:38 No radiology studies performed this visit Discharge Plan Discharge Patient Disposition: Home Clinical Impression: Restless legs syndrome, Medical non-compliance Hypertension Qualifiers: Hypertension type: essential hypertension Qualified Code(s): I10 - Essential (primary) hypertension Condition: Stable Prescriptions: No Action (DME) Monet Heatoner Toe Reading Instructor See Rx Instructions .Route .MEDSUPPLY Qty: 1 0RF Rx Instructions: As directed by HOME sertraline 25 mg tablet 25 mg PO DAILY Qty: 100 0RF budesonide-formoterol [Symbicort] 160-4.5 mcg/actuation HFA aerosol inhaler 2 puff INHALATION BID Qty: 10.2 5RF cyanocobalamin (vitamin B-12) [Vitamin B-12] 1,000 mcg tablet 1,000 mcg PO DAILY Qty: 90 3RF aripiprazole 5 mg tablet 5 mg PO .qpm Qty: 30 2RF Calcium 600 with Vitamin D3 600 mg(1,500mg) -400 unit Tablet,Chewable 1 tab PO DAILY pantoprazole 40 mg Tablet,Delayed Release (Dr/Ec) 40 mg PO BID Qty: 60 0RF sertraline 100 mg tablet 100 mg PO QAM levothyroxine 75 mcg tablet 75 mcg PO QAM lisinopril 10 mg tablet 10 mg PO DAILY ondansetron 4 mg tablet,disintegrating 4 mg PO Q6H PRN (Reason: nausea and vomiting) Qty: 30 0RF oxycodone 10 mg tablet 10 - 20 mg PO Q4H PRN (Reason: Pain, Moderate) Rx Instructions: TAKE 1 TO 2 TABLETS BY MOUTH EVERY 4 TO 6 HOURS NEEDED FOR PAIN max 6 PER day ferrous gluconate 324 mg (38 mg iron) tablet 324 mg PO BID ropinirole 0.5 mg tablet 0.5 mg PO BEDTIME metoprolol tartrate 25 mg tablet 25 mg PO DAILY amiodarone [Pacerone] 200 mg Tablet 400 mg PO Q12H 30 Days Qty: 120 0RF Rx Instructions: take 400mg BID for 5 days, then reduce dose to 200BID x7 d, then 200mg daily amlodipine 10 mg Tablet 10 mg PO QAM 30 Days Qty: 30 0RF hydralazine 10 mg Tablet 10 mg PO TID 30 Days Qty: 90 0RF Rx Instructions: you can stop this when you get back on lisinopril oxycodone 5 mg Tablet 10 mg PO Q4H PRN (Reason: Severe Pain) 7 Days Qty: 28 0RF Discharge Orders: Discharge ED (Routine); Ordered 05/19/24 Ordered By: Tory Galvan Referrals: Lynda Lopez MD [Primary Care Provider] - Discharge Diet: Usual diet Discharge Activity: Increase activity as tolerated Patient Instructions: Opioid Safety, Pain Management Activity Restrictions/Additional Instructions: Thank you for choosing [facility] for your healthcare needs today. Please realize this is an emergency room and that we are providing you with a medical screening exam and this may not be complete and all inclusive of all the testing and or work up that you may need to determine your ailment or severity of your illness. You have been screened and evaluated and felt safe for discharge. Health conditions do change or evolve sometimes and as such it is important that you follow up with your Primary Doctor to be re checked, 3-5 days is a general good time frame for follow up. 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
[2024-05-19] MEDS: LORazepam 1 mg Tablet PO (21:21)
[2024-05-19 21:22] VITALS: BP 204/110; PULSE 72; RESP 22; O2SAT 93
[2024-05-19] MEDS: ropinirole 0.25 mg Tablet 0.5 MG PO (21:22)
[2024-05-19 22:44] VITALS: RESP 20; O2SAT 93
[2024-05-19] MEDS: oxyCODONE 5 mg IR Tab/Cap 10 MG PO (22:44)
[2024-05-19] MEDS: hyDRALAzine 20 mg/mL INJ 1 mL 10 MG IVP (22:44)
[2024-05-19 22:45] VITALS: BP 203/121; PULSE 71; RESP 20; O2SAT 95
[2024-05-19 23:35] VITALS: BP 165/107; PULSE 70; RESP 19; O2SAT 94
== END 2024-05-19 23:37 | disposition home or self-care (01) ==
PROVIDERS: Emergency Medicine; Emergency Provider Emergency Medicine; PCP Family Medicine
DX: G25.81 Restless legs syndrome (principal); Z91.148 Patient's other noncompliance with medication regimen for other reason; Z87.891 Personal history of nicotine dependence; I25.118 Atherosclerotic heart disease of native coronary artery with other forms of angina pectoris; E78.5 Hyperlipidemia, unspecified; I12.9 Hypertensive chronic kidney disease with stage 1 through stage 4 chronic kidney disease, or unspecified chronic kidney disease; N18.9 Chronic kidney disease, unspecified
CPT/HCPCS: 36415; 80053; 85025; 93005; 96374; 99284; J0360

== ENCOUNTER 2024-05-27 20:05 | Emergency (ER) | payer MEDICARE, SELFPAY ==
[2024-05-27 20:06] VITALS: BP 184/104; PULSE 88; RESP 18; TEMP 37.1; O2SAT 90; BMI 19.9
--- NOTE | 2024-05-27 20:14 | ECG_ITS ---
[facility] 2024[facility]27 Pat Name: Ivan Peguero Department: Room: Gender: Female Paintings Conservator: : 1945 Requested By: Vin Velez Order Number: [id number] Soledad MD: Baltazar Osborne M.D. Measurements Intervals Smoot Rate: 70 P: 256 NM: 255 QRS: 110 QRSD: 143 T: 71 QT: 444 QTc: 481 Interpretive Statements ELECTRONIC ATRIAL PACEMAKER RIGHT BUNDLE BRANCH BLOCK [120+ ms QRS DURATION, UPRIGHT V1, 40+ ms S IN I/aVL/V4/V5/V6] LEFT POSTERIOR FASCICULAR BLOCK [QRS AXIS > 109, INFERIOR Q] POSSIBLE ANTERIOR MYOCARDIAL INFARCTION , PROBABLY OLD [30 ms Q WAVE IN V3/V4, OR R < 0.2 mV IN V4] Compared to ECG 05/19/2024 17:20:06 Left posterior fascicular block now present Left anterior fascicular block no longer present T-wave abnormality no longer present Possible ischemia no longer present Myocardial infarct finding still present Electronically Signed On 05-31-2024 18:10:52 LINUX SERVER ENGINEER by Baltazar Osborne M.D. [id number]
--- NOTE | 2024-05-27 20:14 | XRR_ITS ---
PROCEDURE INFORMATION: Exam: XR Chest Exam date and time: 05/27/2024 8:16 PM Age: 78 years old Clinical indication: Other: Weakness; Prior surgery; Surgery date: 6+ months; Surgery type: Pacemaker TECHNIQUE: Imaging protocol: Radiologic exam of the chest. Views: 1 view. COMPARISON: CR (CHEST, ) 05/11/2024 5:32 PM FINDINGS: Tubes, catheters and devices: Dual lead cardiac pacemaker device overlying the left chest wall. Lungs: Unremarkable. No consolidation. Pleural spaces: Unremarkable. No pleural effusion. No pneumothorax. Heart/Mediastinum: Cardiomegaly. Large hiatal hernia. Bones/joints: Unremarkable. XR/XR chest 1V portable [id number] IMPRESSION: As above.
--- NOTE | 2024-05-27 20:15 | W.ED.GENADLT ---
HPI - General Adult General: Chief complaint: General Medical Stated complaint: depressed/ not eating Time Seen by Provider: 05/27/24 20:08 Source: patient and EMS Mode of arrival: EMS Limitations: no limitations History of Present Illness: 78-year-old female he states she has not been feeling well she states for quite some time she states she just has no energy having fatigue has been worse over the last week. She states she has had no appetite has not been taking her meds. Per EMS patient's had some depression but she denies being suicidal homicidal do states she feels weak. Denies fever denies vomiting or diarrhea Associated symptoms: Reports malaise; Deny chest pain, dyspnea, headache(s), nausea, rash or vomiting Related Data Home Medications ?Medication ?Instructions ?Recorded ?Confirmed calcium 600 mg (as carbonate)-vit 1 tab PO DAILY 03/28/19 05/12/24 D3 10 mcg (400 unit) chewable tablet (Calcium 600 with Vitamin D3) oxycodone 10 mg tablet 10 - 20 mg PO Q4H PRN Pain, 11/19/23 05/12/24 Moderate ferrous gluconate 324 mg (38 mg 324 mg PO BID 04/14/24 05/12/24 iron) tablet lisinopril 10 mg tablet 10 mg PO DAILY 05/09/24 05/12/24 Held on 05/15/24. Instructions: Resume on 05/20/24. hold until follow up with cardiology metoprolol tartrate 25 mg tablet 25 mg PO DAILY 05/12/24 05/12/24 ropinirole 0.5 mg tablet 0.5 mg PO BEDTIME 05/12/24 05/12/24 Previous Rx's ?Medication ?Instructions ?Recorded Budin Hammer Toe Sealer Operator #1 ea 10/03/22 pantoprazole 40 mg tablet,delayed 40 mg PO BID #60 tabs 12/14/23 release sertraline 25 mg tablet 25 mg PO DAILY #100 tabs 02/15/24 budesonide-formoterol HFA 160 2 puff inhalation BID #10.2 grams 04/23/24 mcg-4.5 mcg/actuation aerosol inhaler (Symbicort) ondansetron 4 mg disintegrating 4 mg PO Q6H PRN nausea and 05/09/24 tablet vomiting #30 tabs amiodarone 200 mg tablet (Pacerone) 400 mg (2 x 200 mg) PO Q12H 30 05/13/24 days #120 tabs amlodipine 10 mg tablet 10 mg PO QAM 30 days #30 tabs 05/13/24 hydralazine 10 mg tablet 10 mg PO TID 30 days #90 tabs 05/15/24 cyanocobalamin (vitamin B-12) 1,000 mcg PO DAILY #90 tabs 05/16/24 1,000 mcg tablet (Vitamin B-12) aripiprazole 5 mg tablet 5 mg PO .qpm #30 tabs 05/19/24 levothyroxine 75 mcg tablet 75 mcg PO QAM #90 tabs 05/21/24 sertraline 100 mg tablet 100 mg PO QAM #90 tabs 05/21/24 Allergies Allergy/AdvReac Type Severity Reaction Status Date / Time No Known Allergies Allergy Verified 05/27/24 20:11 Review of Systems Const: Reports: fatigue and malaise; Denies: fever(s), chills, body aches or change in appetite ENMT: Denies: throat pain or dental pain Card: Denies: chest pain Resp: Denies: dyspnea GI: Denies: abdominal pain, nausea, vomiting or diarrhea Musc: Denies: neck pain or back pain Skin/Breast: Denies: rash Neuro: Denies: headache(s) Psych: Reports: depression PFSH ED PFSH: Medical History Long-term current use of opiate analgesic Goes to [facility] Depression, major Mitral regurgitation Aortic valve stenosis Mitral regurgitation Exocrine pancreatic insufficiency Renal insufficiency Hiatal hernia with GERD Hypothyroidism Enrolled in chronic care management Osteoporosis Atherosclerotic heart disease of [place] coronary artery with other forms of angina pectoris Abnormal cardiovascular stress test NSTEMI (non-ST elevated myocardial infarction) Hyperlipidemia Hypertension Past heart attack Pain management contract signed Restless legs syndrome Fibromyalgia Chronic low back pain Dr. Benavidez es pain meds Surgical History History of implantable cardiac defibrillator (ICD) [facility] 04/19--pacemaker/defibrillator Hx of cardiac catheterization 1.19.25 OZH--no obstructive disease Hx of esophagogastroduodenoscopy 3.24 large hiatal hernia; gastritis Hx of colonoscopy 10.4.21 normal anastomosis S/P foot surgery History of mandibular surgery R jaw--has titanium plate; done for tumor--benign History of bowel resection benign growth H/O ileostomy Hx of appendectomy (~1973) Hx of hysterectomy (~1973) still has ovaries; had hyst due to bleeding; no cancer History of reversal of ileostomy Hx of tubal ligation Hx of foot surgery (~11/2013) RIGHT FOOT Family History Brother , BONE METS Cancer COLON CANCER Mother Heart disease Family history of thyroid problem Grandmother Heart disease Father Hyperlipidemia Bone cancer Social History Smoking and tobacco/nicotine status: former use of tobacco/nicotine Quit status (tobacco/nicotine): has quit using Year quit tobacco: quit 1989 Second hand smoke exposure: No Alcohol intake: never Substance/Drug Use: never Lives independently: Yes Household members: none Marital status: / Number of children: 3 Highest education level completed: Some College, No Degree 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 occupational status: retired 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 Physical Exam Const: COMMON NORMALS: no acute distress, patient oriented x3 and healthy appearing HENMT: COMMON NORMALS: normocephalic and atraumatic HEAD & SCALP: normocephalic and atraumatic Eye: COMMON NORMALS: conjunctivae normal CONJUNCTIVA: Yes conjunctivae normal Neck/C-Spine: COMMON NORMALS: full ROM and supple Chest: COMMONS NORMALS: normal inspection of the chest Resp: COMMON NORMALS: normal respiratory effort, No retractions, No use of accessory muscles and clear to auscultation bilaterally AUSCULTATION: clear to auscultation bilaterally Cardio: COMMON NORMALS: regular rate, regular rhythm and No murmurs present (Cardio) RATE: regular rate RHYTHM: regular rhythm GI: COMMON NORMALS: Normal to inspection, nondistended, normoactive bowel sounds present, Soft to palpation, non-tender and no masses PALPATION: Yes Soft to palpation Extremity: COMMON NORMALS: normal to inspection and full ROM Neuro: COMMON NORMALS: patient oriented x3, moves all extremities and no focal motor deficits Psych: COMMON NORMALS: mental status grossly normal, Normal thought process present and cooperative THOUGHT PROCESS: Normal thought process present Skin: COMMON NORMALS: no rashes or lesions noted and no wounds GENERAL SKIN EXAM: no rashes or lesions noted Course Vital Signs: Vital signs: Vital Signs Temperature 98.8 F 05/27/24 20:06 Pulse Rate 84 05/27/24 22:46 Respiratory Rate 18 05/27/24 20:06 Blood Pressure 179/91 05/27/24 22:46 Pulse Oximetry 91 05/27/24 22:46 Oxygen Delivery Me thod Room Air 05/27/24 20:06 MDM - General Adult Medical Decision Making Patient presents for generalized weakness she has been well-appearing here vitals are normal blood works all normal is no signs of any infection she is not suicidal she stable for discharge follow-up with PCP return if worsening. Medical Records I reviewed the patient's medical records. Lab Data I reviewed the patient's lab results. 05/27/24 20:43 05/27/24 20:43 Radiology Impressions Chest X-Ray 05/27/24 20:14 IMPRESSION: As above. Elbow X-Ray 05/27/24 20:49 IMPRESSION: No acute findings. Laboratory Results WBC 10.75 10^3/uL (3.29-11.43) 05/27/24 20:43 RBC 5.00 10^6/uL (3.85-5.65) 05/27/24 20:43 Hgb 13.80 g/dL (11.27-16.99) 05/27/24 20:43 Hct 43.1 % (36-47) 05/27/24 20:43 MCV 86.2 fl (85-98) 05/27/24 20:43 MCH 27.6 pg (27-33) 05/27/24 20:43 MCHC 32.0 g/dL (30-55) 05/27/24 20:43 RDW 18.0 % (12.1-15.1) H 05/27/24 20:43 Plt Count 248 10^3/cmm (157-399) 05/27/24 20:43 MPV 10.1 fL (7.4-10.4) 05/27/24 20:43 Neut % (Auto) 70.8 % 05/27/24 20:43 Lymph % (Auto) 15.7 % 05/27/24 20:43 [place] % (Auto) 5.9 % 05/27/24 20:43 Eos % (Auto) 7.1 % 05/27/24 20:43 Baso % (Auto) 0.3 % 05/27/24 20:43 Neut # (Auto) 7.62 10^3/uL (1.8-7.7) 05/27/24 20:43 Lymph # (Auto) 1.7 10^3/uL (0.8-4.8) 05/27/24 20:43 [place] # (Auto) 0.6 10^3/uL (0.2-0.9) 05/27/24 20:43 Eos # (Auto) 0.8 10^3/uL (0.0-0.8) 05/27/24 20:43 Baso # (Auto) 0.0 10^3/uL (0.0-0.1) 05/27/24 20:43 Nucleated RBC % (auto) 0 % 05/27/24 20:43 Nucleated RBCs # 0.0 /100WBC 05/27/24 20:43 Sodium 144 mmol/L (136-145) 05/27/24 20:43 Potassium 3.4 mmol/L (3.5-5.1) L 05/27/24 20:43 Chloride 104 mmol/L (98-107) 05/27/24 20:43 Carbon Dioxide 28 mmol/L (22-29) 05/27/24 20:43 Anion Gap 15.4 (5-19) 05/27/24 20:43 BUN 12 mg/dL (8-23) 05/27/24 20:43 Creatinine 1.0 mg/dL (0.5-0.9) H 05/27/24 20:43 GFR Calculation Not Reportable 05/27/24 20:43 Glucose 98 mg/dL (65-115) 05/27/24 20:43 Calculated Osmolality 298 mOsm/kg (285-295) H 05/27/24 20:43 Calcium 10.3 mg/dL (8.5-10.5) 05/27/24 20:43 Magnesium 1.7 mg/dL (1.7-2.3) 05/27/24 20:43 Total Bilirubin 1.7 mg/dL (0.15-1.2) H 05/27/24 20:43 AST 15 U/L (0-32) 05/27/24 20:43 ALT 8 U/L (0-33) 05/27/24 20:43 Alkaline Phosphatase 115 U/L (35-105) H 05/27/24 20:43 Total Protein 6.9 g/dL (6.6-8.7) 05/27/24 20:43 Albumin 4.0 g/dL (3.5-5.2) 05/27/24 20:43 Globulin 2.9 g/dL (1.3-4.6) 05/27/24 20:43 TSH 26.66 uIU/mL (0.27-4.20) H 05/27/24 20:43 Urine Color Yellow (Yellow) 05/27/24 20:38 Urine Appearance Clear (CLEAR) 05/27/24 20:38 Urine pH 6.0 (5-7) 05/27/24 20:38 Ur Specific [place] 1.016 (1.005-1.030) 05/27/24 20:38 Urine Protein Negative (Negative) 05/27/24 20:38 Urine Glucose (UA) Negative (Normal) 05/27/24 20:38 Urine Ketones Negative (Negative) 05/27/24 20:38 Urine Blood Negative (Negative) 05/27/24 20:38 Urine Nitrate Negative (Negative) 05/27/24 20:38 Urine Bilirubin Negative (Negative) 05/27/24 20:38 Urine Urobilinogen 1.0 mg/dL (Negative) 05/27/24 20:38 Ur Leukocyte Esterase 1+ (Negative) A 05/27/24 20:38 Urine RBC 0-4 /hpf (0-2) H 05/27/24 20:38 Urine WBC 5-10 /hpf (0-5) H 05/27/24 20:38 Ur Squamous Epith Cells 5-10 /hpf (0-5) H 05/27/24 20:38 Calcium Oxalate Crystal 0-4 /hpf H 05/27/24 20:38 Amorphous Sediment Not Reportable 05/27/24 20:38 Urine Bacteria 1+ /hpf (NONE) H 05/27/24 20:38 No radiology studies performed this visit Discharge Plan Discharge Patient Disposition: Home Clinical Impression: Generalized weakness Hypothyroidism Qualifiers: Hypothyroidism type: unspecified Qualified Code(s): E03.9 - Hypothyroidism, unspecified Condition: Stable Prescriptions: No Action (DME) Monet Lam Toe Sealer Operator See Rx Instructions .Route .MEDSUPPLY Qty: 1 0RF Rx Instructions: As directed by HOME sertraline 25 mg tablet 25 mg PO DAILY Qty: 100 0RF budesonide-formoterol [Symbicort] 160-4.5 mcg/actuation HFA aerosol inhaler 2 puff INHALATION BID Qty: 10.2 5RF cyanocobalamin (vitamin B-12) [Vitamin B-12] 1,000 mcg tablet 1,000 mcg PO DAILY Qty: 90 3RF aripiprazole 5 mg tablet 5 mg PO .qpm Qty: 30 2RF sertraline 100 mg tablet 100 mg PO QAM Qty: 90 0RF levothyroxine 75 mcg tablet 75 mcg PO QAM Qty: 90 0RF Calcium 600 with Vitamin D3 600 mg(1,500mg) -400 unit Tablet,Chewable 1 tab PO DAILY pantoprazole 40 mg Tablet,Delayed Release (Dr/Ec) 40 mg PO BID Qty: 60 0RF lisinopril 10 mg tablet 10 mg PO DAILY ondansetron 4 mg tablet,disintegrating 4 mg PO Q6H PRN (Reason: nausea and vomiting) Qty: 30 0RF oxycodone 10 mg tablet 10 - 20 mg PO Q4H PRN (Reason: Pain, Moderate) Rx Instructions: TAKE 1 TO 2 TABLETS BY MOUTH EVERY 4 TO 6 HOURS NEEDED FOR PAIN max 6 PER day ferrous gluconate 324 mg (38 mg iron) tablet 324 mg PO BID ropinirole 0.5 mg tablet 0.5 mg PO BEDTIME metoprolol tartrate 25 mg tablet 25 mg PO DAILY amiodarone [Pacerone] 200 mg Tablet 400 mg PO Q12H 30 Days Qty: 120 0RF Rx Instructions: take 400mg BID for 5 days, then reduce dose to 200BID x7 d, then 200mg daily amlodipine 10 mg Tablet 10 mg PO QAM 30 Days Qty: 30 0RF hydralazine 10 mg Tablet 10 mg PO TID 30 Days Qty: 90 0RF Rx Instructions: you can stop this when you get back on lisinopril Discharge Orders: Discharge ED (Routine); Ordered 05/27/24 Ordered By: Vin Velez Referrals: Lynda Lopez MD [Primary Care Provider] - Discharge Diet: Advance as tolerated Discharge Activity: Resume usual activity Patient Instructions: Hypothyroidism (ED), Weakness (ED) Print Language: Pashto Coding Level of Care Code ED [employer] Service Technician for Gemma Church
[2024-05-27 20:44] LABS: Bilirubin Urine Negative (Negative); Blood Urine Negative (Negative); Glucose Urine UA Negative (Normal); Ketones Urine Negative (Negative); Leukocyte Esterase Urine 1+ (Negative); Nitrate Urine Negative (Negative); Protein Urine Negative (Negative); Specific Gravity, Urine 1.016 (1.005-1.030); Urine Appearance Clear (CLEAR); Urine Color Yellow (Yellow)
--- NOTE | 2024-05-27 20:49 | XRR_ITS ---
PROCEDURE INFORMATION: Exam: XR Left Elbow Exam date and time: 05/27/2024 8:54 PM Age: 78 years old Clinical indication: Injury or trauma; Fall; Blunt trauma (contusions or hematomas); Elbow; Left TECHNIQUE: Imaging protocol: Radiologic exam of the left elbow. Views: 3 or more views. COMPARISON: CR ( EX, ) 05/11/2024 5:35 PM FINDINGS: Bones/joints: No acute fracture or traumatic malalignment. Mild elbow joint chondrocalcinosis.. Soft tissues: Normal. XR/XR elbow LT min 3V* [id number] IMPRESSION: No acute findings.
[2024-05-27 20:51] LABS: Basophils % 0.3 %; Eosinophils # 0.8 10^3/uL (0.0-0.8); Eosinophils % 7.1 %; Hematocrit 43.1 % (36-47); Lymphocytes # 1.7 10^3/uL (0.8-4.8); Lymphocytes % 15.7 %; Mean Corpuscular Hemoglobin 27.6 pg (27-33); Mean Corpuscular Volume 86.2 fl (85-98); Mean Platelet Volume 10.1 fL (7.4-10.4); Monocytes # 0.6 10^3/uL (0.2-0.9); Monocytes % 5.9 %; Neutrophils # 7.62 10^3/uL (1.8-7.7); Neutrophils % 70.8 %; Nucleated Red Blood Cells % 0 %; Platelet Count 248 10^3/cmm (157-399); White Blood Count 10.75 10^3/uL (3.29-11.43)
[2024-05-27 21:00] LABS: Add Urine Microscopic? YES; Bacteria Urine 1+ /hpf; RBC Urine 0-4 /hpf (0-2); UA Manual Slide Review YES; UA Slide Review UA Slide Review Perf
[2024-05-27 21:02] LABS: Calcium Oxalate Crystals Urine 0-4 /hpf
[2024-05-27 21:18] LABS: Alanine Aminotransferase 8 U/L (0-33); Alkaline Phosphatase 115 U/L (35-105); Anion Gap 15.4 (5-19); Aspartate Amino Transferase 15 U/L (0-32); Blood Urea Nitrogen 12 mg/dL (8-23); Calcium 10.3 mg/dL (8.5-10.5); Carbon Dioxide 28 mmol/L (22-29); Chloride 104 mmol/L (98-107); Creatinine Clr Calc Pharmacy 34.0685; Globulin 2.9 g/dL (1.3-4.6); Glucose 98 mg/dL (65-115); Magnesium 1.7 mg/dL (1.7-2.3); Osmolality Calculated 298 mOsm/kg (285-295); Potassium 3.4 mmol/L (3.5-5.1); Sodium 144 mmol/L (136-145); Thyroid Stimulating Hormone 26.66 uIU/mL (0.27-4.20); Total Bilirubin 1.7 mg/dL (0.15-1.2); Total Protein 6.9 g/dL (6.6-8.7)
[2024-05-27] MEDS: levothyroxine 100 mcg Tablet PO (21:30)
[2024-05-27 22:46] VITALS: BP 179/91; PULSE 84; O2SAT 91
== END 2024-05-27 22:47 | disposition home or self-care (01) ==
PROVIDERS: Emergency Provider Emergency Medicine; PCP Family Medicine
DX: R53.1 Weakness (principal); Z87.891 Personal history of nicotine dependence; Z95.810 Presence of automatic (implantable) cardiac defibrillator; E78.5 Hyperlipidemia, unspecified; I10 Essential (primary) hypertension
CPT/HCPCS: 36415; 71045; 73080; 80053; 81001; 83735; 84443; 85025; 93005; 99285

== ENCOUNTER → 2024-07-03 15:36 | Outpatient (BNVA) | payer MEDICARE, SELFPAY | PROVIDERS: PCP Family Medicine; Visit Provider Family Medicine | DX: I10 Essential (primary) hypertension (principal); E03.9 Hypothyroidism, unspecified; N28.9 Disorder of kidney and ureter, unspecified; D50.9 Iron deficiency anemia, unspecified; F33.1 Major depressive disorder, recurrent, moderate | CPT/HCPCS: 80048; 83540; 84439; 84443; 85025 ==

== ENCOUNTER 2024-08-06 06:54 | Emergency (ER) | payer MEDICARE, SELFPAY ==
[2024-08-06 06:55] VITALS: BP 203/122; PULSE 86; RESP 14; TEMP 37; O2SAT 96
--- NOTE | 2024-08-06 07:00 | ED_ITS ---
HPI - Extremity Problem 2 General: Chief complaint: Extremity Injury, Lower Stated complaint: LEG PAIN Time Seen by Provider: 08/06/24 07:04 Source: patient and EMS Mode of arrival: EMS Limitations: no limitations History of Present Illness: 78-year-old female states she has had bi lateral leg pain over the last few days. States that both legs hurt just a cramping pain denies any injuries denies any worse improved factors Associated symptoms: Deny chest pain, fever(s) or rash Related Data Home Medications ?Medication ?Instructions ?Recorded ?Confirmed oxycodone 10 mg tablet 10 - 20 mg PO Q4H PRN Pain, 11/19/23 05/12/24 Moderate amiodarone 200 mg tablet 200 mg PO DAILY 07/03/2401/17 Previous Rx's ?Medication ?Instructions ?Recorded Budin Hammer Toe Slab Miller Operator #1 ea 10/03/22 budesonide-formoterol HFA 160 2 puff inhalation BID #1 0.2 grams 04/23/24 mcg-4.5 mcg/actuation aerosol inhaler (Symbicort) cyanocobalamin (vitamin B-12) 1,000 mcg PO DAILY #90 t abs 05/16/24 1,000 mcg tablet (Vitamin B-12) levothyroxine 75 mcg tablet 75 mcg PO QAM #90 tabs amlodipine 10 mg tablet 10 mg PO DAILY #90 tabs 05/25 sertraline 25 mg tablet 25 mg PO DAILY #100 tabs ferrous gluconate 324 mg (38 mg 324 mg PO BID #180 tab s 06/24/24 iron) tablet lisinopril 20 mg tablet 20 mg PO DAILY #30 tabs 06/24 aripiprazole 5 mg tablet 5 mg PO .qpm #30 tabs bupropion HCl 150 mg 24 hr tablet, 150 mg PO QAM #30 t abs 08/05/24 extended release (Wellbutrin XL) potassium chloride 40 mEq/15 mL 40 meq (15 mL) PO BID 5 days #150 08/06/24 oral liquid mL Allergies Allergy/AdvReac Type Severity Reaction Status Date / Time No Known Allergies Allergy Verified 07/03/24 14:41 Review of Systems 2 Const: Denies: fever(s), chills, body aches or change in appetite ENMT: Denies: throat pain or dental pain Card: Denies: chest pain Resp: Denies: dyspnea GI: Denies: abdominal pain, nausea, vomiting or diarrhea Musc: Reports: extremity pain; Denies: neck pain or back pain Skin/Breast: Denies: rash Neuro: Denies: headache(s) PFSH ED 2 PFSH: Medical History Pacemaker Long-term current use of opiate analgesic Goes to [facility] Depression, major Mitral regurgitation Aortic valve stenosis Mitral regurgitation Exocrine pancreatic insufficiency Renal insufficiency Hiatal hernia with GERD Hypothyroidism Enrolled in chronic care management Osteoporosis Atherosclerotic heart disease of [place] coronary artery with other forms of angina pectoris Abnormal cardiovascular stress test NSTEMI (non-ST elevated myocardial infarction) Hyperlipidemia Hypertension Past heart attack Pain management contract signed Restless legs syndrome Fibromyalgia Chronic low back pain Dr. Benavidez es pain meds Surgical History History of implantable cardiac defibrillator (ICD) [facility] 04/19--pacemaker/defibrillator Hx of cardiac catheterization 1.19.25 OZH--no obstructive disease Hx of esophagogastroduodenoscopy 3.28.24 large hiatal hernia; gastritis Hx of colonoscopy 10.4.21 normal anastomosis S/P foot surgery History of mandibular surgery R jaw--has titanium plate; done for tumor--benign History of bowel resection benign growth H/O ileostomy Hx of appendectomy (~1973) Hx of hysterectomy (~1973) still has ovaries; had hyst due to bleeding; no cancer History of reversal of ileostomy Hx of tubal ligation Hx of foot surgery (~11/2013) RIGHT FOOT Family History Brother , BONE METS Cancer COLON CANCER Mother Heart disease Family history of thyroid problem Grandmother Heart disease Father Hyperlipidemia Bone cancer Social History Smoking and tobacco/nicotine status: former use of tobacco/nicotine Quit status (tobacco/nicotine): has quit using Year quit tobacco: quit 1989 Second hand smoke exposure: No Alcohol intake: never Substance/Drug Use: never Lives independently: Yes Household members: none Marital status: / Number of children: 3 Highest education level completed: Some College, No Degree Current occupational status: retired 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 Physical Exam 2 Const: COMMON NORMALS: no acute distress, patient oriented x3 and healthy appearing HENMT: COMMON NORMALS: normocephalic and atraumatic HEAD & SCALP: n ormocephalic and atraumatic Eye: COMMON NORMALS: conjunctivae normal CONJUNCTIVA: Yes conjunctivae normal Neck/C-Spine: COMMON NORMALS: full ROM and supple Chest: COMMONS NORMALS: normal inspection of the chest Resp: COMMON NORMALS: normal respiratory effort Cardio: COMMON NORMALS: regular rate RATE: regular rate Extremity: COMMON NORMALS: normal to inspection and full ROM NARRATIVE EXTREMITY EXAM: distal pulses sensation intact Neuro: COMMON NORMALS: patient oriented x3, moves all extremities and no focal motor deficits Psych: COMMON NORMALS: mental status grossly normal, Normal thought process present and cooperative THOUGHT PROCESS: Normal thought process present Skin: COMMON NORMALS: no rashes or lesions noted and no wounds GENERAL SKIN EXAM: no rashes or lesions noted Course 2 Vital Signs: Vital signs: Vital Signs Temperature 98.6 F 08/06/24 06:55 Pulse Rate 70 08/06/24 07:40 Respiratory Rate 18 08/06/24 07:40 Blood Pressure 130/79 08/06/24 07:40 Pulse Oximetry 95 08/06/24 07:40 MDM - Extremity (Nontraumatic) Medical Decision Making Patient presents here with leg pain her leg pain is chronic in nature her exam here is benign she was found to be hypokalemic has a history of hypokalemia her magnesium level was low as well replaced her mag did give her potassium here will write her potassium replacement for home she has follow-up with her PCP next week for recheck of her electrolytes return if worsening she understands agrees to plan. Medical Records I reviewed the patient's medical records. Lab Data I reviewed the patient's lab results. 08/06/24 07:10 08/06/24 07:10 Laboratory Results WBC 7.83 10^3/uL (3.29-11.43) 08/06/24 07:10 RBC 5.29 10^6/uL (3.85-5.65) 08/06/24 07:10 Hgb 14.50 g/dL (11.27-16.99) 08/06/24 07:10 Hct 44.1 % (36-47) 08/06/24 07:10 MCV 83.4 fl (85-98) L 08/06/24 07:10 MCH 27.4 pg (27-33) 08/06/24 07:10 MCHC 32.9 g/dL (30-55) 08/06/24 07:10 RDW 15.4 % (12.1-15.1) H 08/06/24 07:10 Plt Count 300 10^3/cmm (157-399) 08/06/24 07:10 MPV 10.1 fL (7.4-10.4) 08/06/24 07:10 Neut % (Auto) 60.3 % 08/06/24 07:10 Lymph % (Auto) 25.3 % 08/06/24 07:10 [place] % (Auto) 7.0 % 08/06/24 07:10 Eos % (Auto) 6.6 % 08/06/24 07:10 Baso % (Auto) 0.5 % 08/06/24 07:10 Neut # (Auto) 4.72 10^3/uL (1.8-7.7) 08/06/24 07:10 Lymph # (Auto) 2.0 10^3/uL (0.8-4.8) 08/06/24 07:10 [place] # (Auto) 0.6 10^3/uL (0.2-0.9) 08/06/24 07:10 Eos # (Auto) 0.5 10^3/uL (0.0-0.8) 08/06/24 07:10 Baso # (Auto) 0.0 10^3/uL (0.0-0.1) 08/06/24 07:10 Nucleated RBC % (auto) 0 % 08/06/24 07:10 Nucleated RBCs # 0.0 /100WBC 08/06/24 07:10 Sodium 141 mmol/L (136-145) 08/06/24 07:10 Potassium 2.4 mmol/L (3.5-5.1) L* 08/06/24 07:10 Chloride 99 mmol/L (98-107) 08/06/24 07:10 Carbon Dioxide 28 mmol/L (22-29) 08/06/24 07:10 Anion Gap 16.4 (5-19) 08/06/24 07:10 BUN 11 mg/dL (8-23) 08/06/24 07:10 Creatinine 0.8 mg/dL (0.5-0.9) 08/06/24 07:10 GFR Calculation Not Reportable 08/06/24 07:10 Glucose 102 mg/dL (65-115) 08/06/24 07:10 Calculated Osmolality 292 mOsm/kg (285-295) 08/06/24 07:10 Calcium 10.9 mg/dL (8.5-10.5) H 08/06/24 07:10 Magnesium 1.3 mg/dL (1.7-2.3) L 08/06/24 07:10 Total Bilirubin 1.7 mg/dL (0.15-1.2) H 08/06/24 07:10 AST 22 U/L (0-32) 08/06/24 07:10 ALT 13 U/L (0-33) 08/06/24 07:10 Alkaline Phosphatase 93 U/L (35-105) 08/06/24 07:10 Total Protein 7.3 g/dL (6.6-8.7) 08/06/24 07:10 Albumin 4.3 g/dL (3.5-5.2) 08/06/24 07:10 Globulin 3.0 g/dL (1.3-4.6) 08/06/24 07:10 No radiology studies performed this visit Discharge Plan Discharge Patient Disposition: Home Clinical Impression: Hypokalemia, Leg pain Condition: Stable Prescriptions: New potassium chloride 40 mEq/15 mL liquid 40 meq PO BID 5 Days Qty: 150 0RF No Action amiodarone 200 mg tablet 200 mg PO DAILY lisinopril 20 mg tablet 20 mg PO DAILY Qty: 30 1RF (DME) Budin Hammer Toe Slab Miller Operator See Rx Instructions .Route .MEDSUPPLY Qty: 1 0RF Rx Instructions: As directed by HOME budesonide-formoterol [Symbicort] 160-4.5 mcg/actuation HFA aerosol inhaler 2 puff INHALATION BID Qty: 10.2 5RF cyanocobalamin (vitamin B-12) [Vitamin B-12] 1,000 mcg tablet 1,000 mcg PO DAILY Qty: 90 3RF levothyroxine 75 mcg tablet 75 mcg PO QAM Qty: 90 0RF amlodipine 10 mg tablet 10 mg PO DAILY Qty: 90 1RF sertraline 25 mg tablet 25 mg PO DAILY Qty: 100 0RF ferrous gluconate 324 mg (38 mg iron) tablet 324 mg PO BID Qty: 180 0RF aripiprazole 5 mg tablet 5 mg PO .qpm Qty: 30 2RF bupropion HCl [Wellbutrin XL] 150 mg tablet extended release 24 hr 150 mg PO QAM Qty: 30 1RF oxycodone 10 mg tablet 10 - 20 mg PO Q4H PRN (Reason: Pain, Moderate) Rx Instructions: TAKE 1 TO 2 TABLETS BY MOUTH EVERY 4 TO 6 HOURS NEEDED FOR PAIN max 6 PER day Discharge Orders: Discharge ED (Routine); Ordered 08/06/24 Ordered By: Vin Velez Referrals: Lynda Lopez MD [Primary Care Provider, Family Practice] - 4-7 days Discharge Diet: Advance as tolerated Discharge Activity: Resume usual activity Patient Instructions: Hypokalemia (ED) Print Language: Kittitian Coding Level of Care Code ED Area Field Manager for Gemma Church
[2024-08-06] MEDS: hyDRALAzine 20 mg/mL INJ 1 mL 10 MG IVP (07:19)
[2024-08-06] MEDS: ondansetron 2 mg/ML SDV 2 mL 4 MG IVP (07:19)
[2024-08-06 07:20] VITALS: RESP 20; O2SAT 96
[2024-08-06 07:20] LABS: Basophils % 0.5 %; Eosinophils # 0.5 10^3/uL (0.0-0.8); Eosinophils % 6.6 %; Hematocrit 44.1 % (36-47); Lymphocytes % 25.3 %; Mean Corpuscular HGB Conc 32.9 g/dL (30-55); Mean Corpuscular Hemoglobin 27.4 pg (27-33); Mean Corpuscular Volume 83.4 fl (85-98); Mean Platelet Volume 10.1 fL (7.4-10.4); Monocytes # 0.6 10^3/uL (0.2-0.9); Neutrophils # 4.72 10^3/uL (1.8-7.7); Neutrophils % 60.3 %; Nucleated Red Blood Cells % 0 %; Platelet Count 300 10^3/cmm (157-399); Red Blood Count 5.29 10^6/uL (3.85-5.65); Red Cell Distribution Width 15.4 % (12.1-15.1); White Blood Count 7.83 10^3/uL (3.29-11.43)
[2024-08-06] MEDS: morphine 4 mg/mL SDV 1 mL IVP (07:20)
[2024-08-06 07:39] LABS: Alanine Aminotransferase 13 U/L (0-33); Albumin Level 4.3 g/dL (3.5-5.2); Alkaline Phosphatase 93 U/L (35-105); Anion Gap 16.4 (5-19); Aspartate Amino Transferase 22 U/L (0-32); Blood Urea Nitrogen 11 mg/dL (8-23); Calcium 10.9 mg/dL (8.5-10.5); Carbon Dioxide 28 mmol/L (22-29); Chloride 99 mmol/L (98-107); Creatinine Clr Calc Pharmacy 42.5856; Glucose 102 mg/dL (65-115); Osmolality Calculated 292 mOsm/kg (285-295); Sodium 141 mmol/L (136-145); Total Bilirubin 1.7 mg/dL (0.15-1.2); Total Protein 7.3 g/dL (6.6-8.7)
[2024-08-06 07:40] VITALS: BP 130/79; PULSE 70; RESP 18; O2SAT 95
[2024-08-06 07:40] LABS: Potassium 2.4 mmol/L (3.5-5.1)
--- NOTE | 2024-08-06 07:40 | ECG_ITS ---
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: : [id number] Requested By: Vin Velez Order Number: [id number] Soledad MD: ARNOLD ALBERTS Measurements Intervals [place] Rate: 69 P: 179 TN: 194 QRS: -71 QRSD: 133 T: -49 QT: 462 QTc: 498 Interpretive Statements ELECTRONIC ATRIAL PACEMAKER RIGHT BUNDLE BRANCH BLOCK [120+ ms QRS DURATION, UPRIGHT V1, 40+ ms S IN I/aVL/V4/V5/V6] LEFT ANTERIOR FASCICULAR BLOCK [QRS AXIS <= -45, QR IN I, RS IN II] MINIMAL VOLTAGE CRITERIA FOR LVH, CONSIDER NORMAL VARIANT [MEETS CRITERIA IN ONE OF: R(aVL), S(V1), R(V5), R(V5/V6)+S(V1)] Compared to ECG 05/27/2024 20:45:25 Left anterior fascicular block now present Left posterior fascicular block no longer present Myocardial infarct finding no longer present Electronically Signed On 08-07-2024 23:32:22 CDT by ARNOLD ALBERTS [email or web address]
[2024-08-06] MEDS: potassium chloride ER 20 mEq Tablet 80 MEQ PO (07:46)
[2024-08-06 08:01] LABS: Magnesium 1.3 mg/dL (1.7-2.3)
[2024-08-06] MEDS: magnesium sulfate premix 2 GM/50 ML PIGGYBACK IV (08:32)
[2024-08-06] MEDS: HYDROcodone-acetaminophen 5-325 mg Tablet 1 TAB PO (08:33)
[2024-08-06 09:29] VITALS: BP 140/90; PULSE 80; O2SAT 95
== END 2024-08-06 09:32 | disposition home or self-care (01) ==
PROVIDERS: Emergency Provider Emergency Medicine; PCP Family Medicine
DX: E87.6 Hypokalemia (principal); M79.604 Pain in right leg; M79.605 Pain in left leg; Z87.891 Personal history of nicotine dependence; E78.5 Hyperlipidemia, unspecified; I10 Essential (primary) hypertension; Z95.0 Presence of cardiac pacemaker
CPT/HCPCS: 36415; 80053; 83735; 85025; 93005; 96365; 99283; 99284; J0360; J2270; J2405; J3475; J9999

== ENCOUNTER 2024-08-12 07:20 | Emergency (ER) | payer MEDICARE, SELFPAY ==
[2024-08-12 07:22] VITALS: BP 200/111; PULSE 91; RESP 14; TEMP 36.7; O2SAT 95
--- NOTE | 2024-08-12 08:13 | W.ED.EXTPRO ---
Documented by User: Art Desai, 08/12/24 08:13 HPI - Extremity Problem General: Chief complaint: Extremity Injury, Lower Stated complaint: leg pain Time Seen by Provider: 08/12/24 07:21 History of Present Illness: Associated symptoms: Deny chest pain, fever(s) or rash Related Data Home Medications ?Medication ?Instructions ?Recorded ?Confirmed oxycodone 10 mg tablet 10 - 20 mg PO Q4H PRN Pain, 11/19/23 08/06/24 Moderate amiodarone 200 mg tablet 200 mg PO DAILY 07/03/24 08/06/24 atorvastatin 40 mg tablet 40 mg PO DAILY 08/06/24 08/06/24 pantoprazole 40 mg tablet,delayed 40 mg PO BID 08/06/24 08/06/24 release ropinirole 0.5 mg tablet 0.5 mg PO BEDTIME 08/06/24 08/06/24 Previous Rx's ?Medication ?Instructions ?Recorded Monet [employer] #1 ea 10/03/22 cyanocobalamin (vitamin B-12) 1,000 mcg PO DAILY #90 tabs 05/16/24 1,000 mcg tablet (Vitamin B-12) levothyroxine 75 mcg tablet 75 mcg PO QAM #90 tabs 05/21/24 amlodipine 10 mg tablet 10 mg PO DAILY #90 tabs 06/12/24 sertraline 25 mg tablet 25 mg PO DAILY #100 tabs 06/16/24 ferrous gluconate 324 mg (38 mg 324 mg PO BID #180 tabs 06/24/24 iron) tablet lisinopril 20 mg tablet 20 mg PO DAILY #30 tabs 07/03/24 aripiprazole 5 mg tablet 5 mg PO .qpm #30 tabs 07/15/24 bupropion HCl 150 mg 24 hr tablet, 150 mg PO QAM #30 tabs 08/05/24 extended release (Wellbutrin XL) hydrocodone 5 mg-acetaminophen 325 1 tab PO Q6H PRN pain #14 tabs 08/06/24 mg tablet Allergies Allergy/AdvReac Type Severity Reaction Status Date / Time No Known Allergies Allergy Verified 07/03/24 14:41 Review of Systems Const: Denies: fever(s) or chills Card: Denies: chest pain Resp: Denies: dyspnea GI: Denies: abdominal pain : Denies: dysuria, urinary frequency or urinary urgency Musc: Denies: neck pain or back pain Skin/Breast: Denies: rash PFSH ED PFSH: Medical History Pacemaker Long-term current use of opiate analgesic Goes to Dr[facility] Depression, major Mitral regurgitation Aortic valve stenosis Mitral regurgitation Exocrine pancreatic insufficiency Renal insufficiency Hiatal hernia with GERD Hypothyroidism Enrolled in chronic care management Osteoporosis Atherosclerotic heart disease of [place] coronary artery with other forms of angina pectoris Abnormal cardiovascular stress test NSTEMI (non-ST elevated myocardial infarction) Hyperlipidemia Hypertension Past heart attack Pain management contract signed Restless legs syndrome Fibromyalgia Chronic low back pain Dr. Benavidez Rxes pain meds Surgical History History of implantable cardiac defibrillator (ICD) [facility] 04/19--pacemaker/defibrillator Hx of cardiac catheterization 1.19.25 OZH--no obstructive disease Hx of esophagogastroduodenoscopy 3.28.24 large hiatal hernia; gastritis Hx of colonoscopy 10.4.21 normal anastomosis S/P foot surgery History of mandibular surgery R jaw--has titanium plate; done for tumor--benign History of bowel resection benign growth H/O ileostomy Hx of appendectomy (~1973) Hx of hysterectomy (~1973) still has ovaries; had hyst due to bleeding; no cancer History of reversal of ileostomy Hx of tubal ligation Hx of foot surgery (~11/2013) RIGHT FOOT Family History Brother , BONE METS Cancer COLON CANCER Mother Heart disease Family history of thyroid problem Grandmother Heart disease Father Hyperlipidemia Bone cancer Social History Smoking and tobacco/nicotine status: former use of tobacco/nicotine Quit status (tobacco/nicotine): has quit using Year quit tobacco: quit 1989 Second hand smoke exposure: No Alcohol intake: never Substance/Drug Use: never Lives independently: Yes Household members: none Marital status: / Number of children: 3 Highest education level completed: Some College, No Degree Current occupational status: retired 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 Physical Exam Const: COMMON NORMALS: no acute distress GENERAL APPEARANCE: cooperative and comfortable ORIENTATION/CONSCIOUSNESS: Yes awake, Yes oriented to person, Yes oriented to place and Yes oriented to time HENMT: COMMON NORMALS: normocephalic, atraumatic and hearing grossly normal bilaterally HEAD & SCALP: normocephalic and atraumatic Resp: COMMON NORMALS: normal respiratory effort, No retractions, No use of accessory muscles and clear to auscultation bilaterally AUSCULTATION: clear to auscultation bilaterally Cardio: COMMON NORMALS: regular rate, regular rhythm and No murmurs present (Cardio) RATE: regular rate RHYTHM: regular rhythm GI: COMMON NORMALS: Soft to palpation and No hepatosplenomegaly present AUSCULTATION: Yes normoactive bowel sounds PALPATION: Yes Soft to palpation, No Tenderness to palpation present (GI), No Guarding due to palpation present (GI) and Yes No hepatosplenomegaly present Extremity: COMMON NORMALS: normal to inspection, capillary refill normal, no clubbing, cyanosis or edema, no calf tenderness and no pedal edema Neuro: SENSORIUM/ORIENTATION: Yes oriented to person, Yes oriented to place and Yes oriented to time Skin: COMMON NORMALS: no rashes or lesions noted GENERAL SKIN EXAM: no rashes or lesions noted Course Vital Signs: Vital signs: Vital Signs Temperature 98.0 F 08/12/24 07:22 Pulse Rate 71 08/12/24 10:23 Respiratory Rate 16 08/12/24 10:09 Blood Pressure 209/104 08/12/24 10:23 Pulse Oximetry 93 08/12/24 10:23 Oxygen Delivery Me thod Room Air 08/12/24 07:22 MDM - Extremity (Nontraumatic) Lab Data 08/12/24 09:56 08/12/24 09:56 Laboratory Results WBC 10.50 10^3/uL (3.29-11.43) 08/12/24 09:56 RBC 4.29 10^6/uL (3.85-5.65) 08/12/24 09:56 Hgb 12.20 g/dL (11.27-16.99) 08/12/24 09:56 Hct 36.6 % (36-47) 08/12/24 09:56 MCV 85.3 fl (85-98) 08/12/24 09:56 MCH 28.4 pg (27-33) 08/12/24 09:56 MCHC 33.3 g/dL (30-55) 08/12/24 09:56 RDW 15.9 % (12.1-15.1) H 08/12/24 09:56 Plt Count 251 10^3/cmm (157-399) 08/12/24 09:56 MPV 9.8 fL (7.4-10.4) 08/12/24 09:56 Neut % (Auto) 75.0 % 08/12/24 09:56 Lymph % (Auto) 13.0 % 08/12/24 09:56 Catron % (Auto) 5.0 % 08/12/24 09:56 Eos % (Auto) 6.5 % 08/12/24 09:56 Baso % (Auto) 0.2 % 08/12/24 09:56 Neut # (Auto) 7.87 10^3/uL (1.8-7.7) H 08/12/24 09:56 Lymph # (Auto) 1.4 10^3/uL (0.8-4.8) 08/12/24 09:56 Catron # (Auto) 0.5 10^3/uL (0.2-0.9) 08/12/24 09:56 Eos # (Auto) 0.7 10^3/uL (0.0-0.8) 08/12/24 09:56 Baso # (Auto) 0.0 10^3/uL (0.0-0.1) 08/12/24 09:56 Nucleated RBC % (auto) 0 % 08/12/24 09:56 Nucleated RBCs # 0.0 /100WBC 08/12/24 09:56 Sodium 142 mmol/L (136-145) 08/12/24 09:56 Potassium 3.2 mmol/L (3.5-5.1) L 08/12/24 09:56 Chloride 108 mmol/L (98-107) H 08/12/24 09:56 Carbon Dioxide 23 mmol/L (22-29) 08/12/24 09:56 Anion Gap 14.2 (5-19) 08/12/24 09:56 BUN 15 mg/dL (8-23) 08/12/24 09:56 Creatinine 0.7 mg/dL (0.5-0.9) 08/12/24 09:56 GFR Calculation Not Reportable 08/12/24 09:56 Glucose 97 mg/dL (65-115) 08/12/24 09:56 Calculated Osmolality 295 mOsm/kg (285-295) 08/12/24 09:56 Calcium 9.5 mg/dL (8.5-10.5) 08/12/24 09:56 Magnesium 1.6 mg/dL (1.7-2.3) L 08/12/24 09:56 Total Bilirubin 1.1 mg/dL (0.15-1.2) 08/12/24 09:56 AST 23 U/L (0-32) 08/12/24 09:56 ALT 17 U/L (0-33) 08/12/24 09:56 Alkaline Phosphatase 79 U/L (35-105) 08/12/24 09:56 Total Protein 6.3 g/dL (6.6-8.7) L 08/12/24 09:56 Albumin 4.0 g/dL (3.5-5.2) 08/12/24 09:56 Globulin 2.3 g/dL (1.3-4.6) 08/12/24 09:56 Discharge Plan Discharge Patient Disposition: Home Clinical Impression: Chronic pain of lower extremity, bilateral Condition: Stable Prescriptions: No Action amiodarone 200 mg tablet 200 mg PO DAILY lisinopril 20 mg tablet 20 mg PO DAILY Qty: 30 1RF (DME) [employer]in [employer] See Rx Instructions .Route .MEDSUPPLY Qty: 1 0RF Rx Instructions: As directed by HOME cyanocobalamin (vitamin B-12) [Vitamin B-12] 1,000 mcg tablet 1,000 mcg PO DAILY Qty: 90 3RF levothyroxine 75 mcg tablet 75 mcg PO QAM Qty: 90 0RF amlodipine 10 mg tablet 10 mg PO DAILY Qty: 90 1RF sertraline 25 mg tablet 25 mg PO DAILY Qty: 100 0RF ferrous gluconate 324 mg (38 mg iron) tablet 324 mg PO BID Qty: 180 0RF aripiprazole 5 mg tablet 5 mg PO .qpm Qty: 30 2RF bupropion HCl [Wellbutrin XL] 150 mg tablet extended release 24 hr 150 mg PO QAM Qty: 30 1RF hydrocodone-acetaminophen 5-325 mg tablet 1 tab PO Q6H PRN (Reason: pain) Qty: 14 0RF atorvastatin 40 mg tablet 40 mg PO DAILY ropinirole 0.5 mg tablet 0.5 mg PO BEDTIME pantoprazole 40 mg tablet,delayed release (DR/EC) 40 mg PO BID oxycodone 10 mg tablet 10 - 20 mg PO Q4H PRN (Reason: Pain, Moderate) Rx Instructions: TAKE 1 TO 2 TABLETS BY MOUTH EVERY 4 TO 6 HOURS NEEDED FOR PAIN max 6 PER day Discharge Orders: Discharge ED (Routine); Ordered 08/12/24 Ordered By: Kerline Peralta Referrals: Lynda Lopez MD [Primary Care Provider, Family Practice] Activity Restrictions/Additional Instructions: As we discussed, your blood pressure was elevated here in the emergency department. Please keep a blood pressure log twice daily and follow-up with primary care so she can adjust your home blood pressure medications based on this log. Your potassium and magnesium were still slightly low today although improved from previous visit. You were given oral doses of these prior to discharge. You may follow-up with your primary care provider regarding your leg pain at your currently scheduled appointment on 08/28. Print Language: Gambian Coding Level of Care Code ED Estimator Lumber for Chg Fwd Documented by User: KIERA Cantu 08/12/24 10:50 HPI - Extremity Problem General: Chief complaint: Extremity Injury, Lower Stated complaint: leg pain Time Seen by Provider: 08/12/24 07:21 Source: patient Mode of arrival: wheelchair Limitations: no limitations History of Present Illness: 78-year-old female presents to the emergency department with recurrence of chronic bilateral leg pain. She has been seen in the ED on numerous occasions for the same complaint. She describes the pain as dull and aching, reporting slight weakness. She denies any chest pain, palpitations, dyspnea, fevers, chills, or any other complaint at this time. States pain has been going on for quite some time . States she used to see Dr. Felipe at pain management for it and was using oxycodone but when he left she has not seen anybody else. Not sure if she has brought complaint up to her PCP but does have an upcoming appointment with them. Had not noticed any swelling or color/temp changes to legs. She was seen here recently for same and noted to have hypokalemia at 2.4. Arrives hypertensive-has not taken any of her morning BP meds today. MD Complaint: extremity pain Onset (ago): year(s) Pain Consistency: intermittent Location: left, right and lower extremity Quality: aching and dull Radiation: none Relieving factors: medication (oxycodone) Exacerbating factors: nothing Associated symptoms: Reports no associated symptoms; Deny chest pain, fever(s) or rash Related Data Home Medications ?Medication ?Instructions ?Recorded ?Confirmed oxycodone 10 mg tablet 10 - 20 mg PO Q4H PRN Pain, 11/19/23 08/06/24 Moderate amiodarone 200 mg tablet 200 mg PO DAILY 07/03/24 08/06/24 atorvastatin 40 mg tablet 40 mg PO DAILY 08/06/24 08/06/24 pantoprazole 40 mg tablet,delayed 40 mg PO BID 08/06/24 08/06/24 release ropinirole 0.5 mg tablet 0.5 mg PO BEDTIME 08/06/24 08/06/24 Previous Rx's ?Medication ?Instructions ?Recorded Monet [employer] #1 ea 10/03/22 cyanocobalamin (vitamin B-12) 1,000 mcg PO DAILY #90 tabs 05/16/24 1,000 mcg tablet (Vitamin B-12) levothyroxine 75 mcg tablet 75 mcg PO QAM #90 tabs 05/21/24 amlodipine 10 mg tablet 10 mg PO DAILY #90 tabs 06/12/24 sertraline 25 mg tablet 25 mg PO DAILY #100 tabs 06/16/24 ferrous gluconate 324 mg (38 mg 324 mg PO BID #180 tabs 06/24/24 iron) tablet lisinopril 20 mg tablet 20 mg PO DAILY #30 tabs 07/03/24 aripiprazole 5 mg tablet 5 mg PO .qpm #30 tabs 07/15/24 bupropion HCl 150 mg 24 hr tablet, 150 mg PO QAM #30 tabs 08/05/24 extended release (Wellbutrin XL) hydrocodone 5 mg-acetaminophen 325 1 tab PO Q6H PRN pain #14 tabs 08/06/24 mg tablet Allergies Allergy/AdvReac Type Severity Reaction Status Date / Time No Known Allergies Allergy Verified 07/03/24 14:41 Review of Systems Const: Denies: fever(s), chills, body aches, fatigue or malaise Card: Denies: chest pain Resp: Denies: dyspnea, productive cough, non-productive cough, pain on inspiration or chest congestion GI: Denies: abdominal pain : Denies: flank pain, dysuria, urinary frequency, urinary urgency or hematuria Musc: Reports: extremity pain and muscle cramps; Denies: neck pain, back pain, extremity swelling, joint pain, joint swelling, joint redness, joint warmth, joint stiffness or muscle weakness Skin/Breast: Denies: rash Neuro: Reports: weakness in extremities; Denies: headache(s), numbness in extremities, sensory changes, lack of coordination, difficulty walking, frequent falls or dizziness PFSH ED PFSH: Medical History Pacemaker Long-term current use of opiate analgesic Goes to [facility] Depression, major Mitral regurgitation Aortic valve stenosis Mitral regurgitation Exocrine pancreatic insufficiency Renal insufficiency Hiatal hernia with GERD Hypothyroidism Enrolled in chronic care management Osteoporosis Atherosclerotic heart disease of [place] coronary artery with other forms of angina pectoris Abnormal cardiovascular stress test NSTEMI (non-ST elevated myocardial infarction) Hyperlipidemia Hypertension Past heart attack Pain management contract signed Restless legs syndrome Fibromyalgia Chronic low back pain Dr. Benavidez es pain meds Surgical History History of implantable cardiac defibrillator (ICD) [facility] 04/19--pacemaker/defibrillator Hx of cardiac catheterization 1.19.25 OZH--no obstructive disease Hx of esophagogastroduodenoscopy 3.28.24 large hiatal hernia; gastritis Hx of colonoscopy 10.4.21 normal anastomosis S/P foot surgery History of mandibular surgery R jaw--has titanium plate; done for tumor--benign History of bowel resection benign growth H/O ileostomy Hx of appendectomy (~1973) Hx of hysterectomy (~1973) still has ovaries; had hyst due to bleeding; no cancer History of reversal of ileostomy Hx of tubal ligation Hx of foot surgery (~11/2013) RIGHT FOOT Family History Brother , BONE METS Cancer COLON CANCER Mother Heart disease Family history of thyroid problem Grandmother Heart disease Father Hyperlipidemia Bone cancer Social History Smoking and tobacco/nicotine status: former use of tobacco/nicotine Quit status (tobacco/nicotine): has quit using Year quit tobacco: quit 1989 Second hand smoke exposure: No Alcohol intake: never Substance/Drug Use: never Lives independently: Yes Household members: none Marital status: / Number of children: 3 Highest education level completed: Some College, No Degree Current occupational status: retired 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 Physical Exam Const: COMMON NORMALS: no acute distress, average body habitus, patient oriented x3, no limitations, healthy appearing, alert and well nourished GENERAL APPEARANCE: cooperative and comfortable ORIENTATION/CONSCIOUSNESS: Yes awake, Yes oriented to person, Yes oriented to place and Yes oriented to time Chest: COMMONS NORMALS: normal inspection of the chest and normal palpation of entire chest wall Resp: COMMON NORMALS: normal respiratory effort and clear to auscultation bilaterally AUSCULTATION: clear to auscultation bilaterally Cardio: COMMON NORMALS: regular rate and regular rhythm RATE: regular rate RHYTHM: regular rhythm GI: COMMON NORMALS: Normal to inspection, nondistended, normoactive bowel sounds present, Soft to palpation, non-tender and no masses PALPATION: Yes Soft to palpation Back/Pelvis: COMMON NORMALS: thoracic and lumbar spine normal to inspection, no thoracic nor lumbar tenderness, thoraco-lumbar ROM normal and straight leg raise negative bilaterally Extremity: COMMON NORMALS: normal to inspection, full ROM, capillary refill normal, no joint enlargement, no clubbing, cyanosis or edema, no calf tenderness and no pedal edema GENERAL: Yes normal exam except as noted Neuro: COMMON NORMALS: patient oriented x3, moves all extremities, no focal motor deficits and no sensory deficits noted SENSORIUM/ORIENTATION: Yes alert, Yes oriented to person, Yes oriented to place and Yes oriented to time Skin: COMMON NORMALS: no rashes or lesions noted GENERAL SKIN EXAM: no rashes or lesions noted Course Vital Signs: Vital signs: Vital Signs Temperature 98.0 F 08/12/24 07:22 Pulse Rate 71 08/12/24 10:23 Respiratory Rate 16 08/12/24 10:09 Blood Pressure 209/104 08/12/24 10:23 Pulse Oximetry 93 08/12/24 10:23 Oxygen Delivery Me thod Room Air 08/12/24 07:22 MDM - Extremity (Nontraumatic) Medical Decision Making Patient here for chronic lower extremity pain. This is a longstanding issue for patient. She used to see pain management. Some of this could be her known RLS-has room for dose adjustment on her ropinirole. Physical exam today is benign. She does arrive very hypertensive. She has not taken her blood pressure medications this morning. These were provided for her here. Recommend she keep a blood pressure log at home and follow-up with primary care based on this log. She was here a few days ago for her leg complaint. She was found to be hypokalemic then with a potassium of 2.4. This was rechecked today and her potassium is 3.2. Mag was a little low as well. She was given oral supplementation for both of these. Recommend she follow-up with primary care at her currently scheduled appointment on 08/28. Medical Records I reviewed the patient's medical records. Lab Data I reviewed the patient's lab results. 08/12/24 09:56 08/12/24 09:56 Laboratory Results WBC 10.50 10^3/uL (3.29-11.43) 08/12/24 09:56 RBC 4.29 10^6/uL (3.85-5.65) 08/12/24 09:56 Hgb 12.20 g/dL (11.27-16.99) 08/12/24 09:56 Hct 36.6 % (36-47) 08/12/24 09:56 MCV 85.3 fl (85-98) 08/12/24 09:56 MCH 28.4 pg (27-33) 08/12/24 09:56 MCHC 33.3 g/dL (30-55) 08/12/24 09:56 RDW 15.9 % (12.1-15.1) H 08/12/24 09:56 Plt Count 251 10^3/cmm (157-399) 08/12/24 09:56 MPV 9.8 fL (7.4-10.4) 08/12/24 09:56 Neut % (Auto) 75.0 % 08/12/24 09:56 Lymph % (Auto) 13.0 % 08/12/24 09:56 Catron % (Auto) 5.0 % 08/12/24 09:56 Eos % (Auto) 6.5 % 08/12/24 09:56 Baso % (Auto) 0.2 % 08/12/24 09:56 Neut # (Auto) 7.87 10^3/uL (1.8-7.7) H 08/12/24 09:56 Lymph # (Auto) 1.4 10^3/uL (0.8-4.8) 08/12/24 09:56 Catron # (Auto) 0.5 10^3/uL (0.2-0.9) 08/12/24 09:56 Eos # (Auto) 0.7 10^3/uL (0.0-0.8) 08/12/24 09:56 Baso # (Auto) 0.0 10^3/uL (0.0-0.1) 08/12/24 09:56 Nucleated RBC % (auto) 0 % 08/12/24 09:56 Nucleated RBCs # 0.0 /100WBC 08/12/24 09:56 Sodium 142 mmol/L (136-145) 08/12/24 09:56 Potassium 3.2 mmol/L (3.5-5.1) L 08/12/24 09:56 Chloride 108 mmol/L (98-107) H 08/12/24 09:56 Carbon Dioxide 23 mmol/L (22-29) 08/12/24 09:56 Anion Gap 14.2 (5-19) 08/12/24 09:56 BUN 15 mg/dL (8-23) 08/12/24 09:56 Creatinine 0.7 mg/dL (0.5-0.9) 08/12/24 09:56 GFR Calculation Not Reportable 08/12/24 09:56 Glucose 97 mg/dL (65-115) 08/12/24 09:56 Calculated Osmolality 295 mOsm/kg (285-295) 08/12/24 09:56 Calcium 9.5 mg/dL (8.5-10.5) 08/12/24 09:56 Magnesium 1.6 mg/dL (1.7-2.3) L 08/12/24 09:56 Total Bilirubin 1.1 mg/dL (0.15-1.2) 08/12/24 09:56 AST 23 U/L (0-32) 08/12/24 09:56 ALT 17 U/L (0-33) 08/12/24 09:56 Alkaline Phosphatase 79 U/L (35-105) 08/12/24 09:56 Total Protein 6.3 g/dL (6.6-8.7) L 08/12/24 09:56 Albumin 4.0 g/dL (3.5-5.2) 08/12/24 09:56 Globulin 2.3 g/dL (1.3-4.6) 08/12/24 09:56 No radiology studies performed this visit Discharge Plan Discharge Patient Disposition: Home Clinical Impression: Chronic pain of lower extremity, bilateral Condition: Stable Prescriptions: No Action amiodarone 200 mg tablet 200 mg PO DAILY lisinopril 20 mg tablet 20 mg PO DAILY Qty: 30 1RF (DME) Monet [employer] See Rx Instructions .Route .MEDSUPPLY Qty: 1 0RF Rx Instructions: As directed by HOME cyanocobalamin (vitamin B-12) [Vitamin B-12] 1,000 mcg tablet 1,000 mcg PO DAILY Qty: 90 3RF levothyroxine 75 mcg tablet 75 mcg PO QAM Qty: 90 0RF amlodipine 10 mg tablet 10 mg PO DAILY Qty: 90 1RF sertraline 25 mg tablet 25 mg PO DAILY Qty: 100 0RF ferrous gluconate 324 mg (38 mg iron) tablet 324 mg PO BID Qty: 180 0RF aripiprazole 5 mg tablet 5 mg PO .qpm Qty: 30 2RF bupropion HCl [Wellbutrin XL] 150 mg tablet extended release 24 hr 150 mg PO QAM Qty: 30 1RF hydrocodone-acetaminophen 5-325 mg tablet 1 tab PO Q6H PRN (Reason: pain) Qty: 14 0RF atorvastatin 40 mg tablet 40 mg PO DAILY ropinirole 0.5 mg tablet 0.5 mg PO BEDTIME pantoprazole 40 mg tablet,delayed release (DR/EC) 40 mg PO BID oxycodone 10 mg tablet 10 - 20 mg PO Q4H PRN (Reason: Pain, Moderate) Rx Instructions: TAKE 1 TO 2 TABLETS BY MOUTH EVERY 4 TO 6 HOURS NEEDED FOR PAIN max 6 PER day Discharge Orders: Discharge ED (Routine); Ordered 08/12/24 Ordered By: Kerline Peralta Referrals: Lynda Lopez MD [Primary Care Provider, Family Practice] Activity Restrictions/Additional Instructions: As we discussed, your blood pressure was elevated here in the emergency department. Please keep a blood pressure log twice daily and follow-up with primary care so she can adjust your home blood pressure medications based on this log. Your potassium and magnesium were still slightly low today although improved from previous visit. You were given oral doses of these prior to discharge. You may follow-up with your primary care provider regarding your leg pain at your currently scheduled appointment on 08/28. Print Language: Gambian Coding Level of Care Code ED Estimator Lumber for Gemma [employer]
[2024-08-12] MEDS: amiodarone 200 mg Tablet PO (09:40)
[2024-08-12] MEDS: amlodipine 5 mg Tablet PO (09:40)
[2024-08-12] MEDS: lisinopril 20 mg Tablet PO (09:40)
[2024-08-12 10:05] LABS: Basophils % 0.2 %; Eosinophils # 0.7 10^3/uL (0.0-0.8); Eosinophils % 6.5 %; Hematocrit 36.6 % (36-47); Lymphocytes # 1.4 10^3/uL (0.8-4.8); Mean Corpuscular HGB Conc 33.3 g/dL (30-55); Mean Corpuscular Hemoglobin 28.4 pg (27-33); Mean Corpuscular Volume 85.3 fl (85-98); Mean Platelet Volume 9.8 fL (7.4-10.4); Monocytes # 0.5 10^3/uL (0.2-0.9); Neutrophils # 7.87 10^3/uL (1.8-7.7); Nucleated Red Blood Cells % 0 %; Platelet Count 251 10^3/cmm (157-399); Red Blood Count 4.29 10^6/uL (3.85-5.65); Red Cell Distribution Width 15.9 % (12.1-15.1)
[2024-08-12 10:09] VITALS: RESP 16; O2SAT 98
[2024-08-12] MEDS: ondansetron 2 mg/ML SDV 2 mL 4 MG IM (10:09)
[2024-08-12] MEDS: morphine 4 mg/mL SDV 1 mL IM (10:09)
[2024-08-12 10:20] LABS: Alanine Aminotransferase 17 U/L (0-33); Alkaline Phosphatase 79 U/L (35-105); Anion Gap 14.2 (5-19); Aspartate Amino Transferase 23 U/L (0-32); Blood Urea Nitrogen 15 mg/dL (8-23); Calcium 9.5 mg/dL (8.5-10.5); Carbon Dioxide 23 mmol/L (22-29); Chloride 108 mmol/L (98-107); Creatinine Clr Calc Pharmacy 42.5856; Globulin 2.3 g/dL (1.3-4.6); Glucose 97 mg/dL (65-115); Magnesium 1.6 mg/dL (1.7-2.3); Osmolality Calculated 295 mOsm/kg (285-295); Potassium 3.2 mmol/L (3.5-5.1); Sodium 142 mmol/L (136-145); Total Bilirubin 1.1 mg/dL (0.15-1.2); Total Protein 6.3 g/dL (6.6-8.7)
[2024-08-12 10:23] VITALS: BP 209/104; PULSE 71; O2SAT 93
[2024-08-12 10:48] VITALS: BP 213/98
[2024-08-12] MEDS: potassium chloride ER 20 mEq Tablet 40 MEQ PO (10:48)
[2024-08-12] MEDS: cloNIDine 0.1 mg Tablet PO (10:48)
[2024-08-12] MEDS: magnesium oxide 400 mg tablet PO (10:48)
[2024-08-12 10:50] VITALS: BP 200/107; PULSE 73; O2SAT 94
[2024-08-12 10:54] VITALS: BP 200/107; PULSE 73; O2SAT 94
--- NOTE | 2024-08-12 11:14 | PC.NURSE ---
PT HYPERTENSIVE UPON D/C. KIERA SANDERS AWARE, PER MIKE PT OK TO D/C.
== END 2024-08-12 11:15 | disposition home or self-care (01) ==
PROVIDERS: Emergency Provider Physician Assistant; PCP Family Medicine
DX: M79.604 Pain in right leg (principal); M79.605 Pain in left leg; Z87.891 Personal history of nicotine dependence; E78.5 Hyperlipidemia, unspecified; Z95.0 Presence of cardiac pacemaker; I10 Essential (primary) hypertension; I25.118 Atherosclerotic heart disease of native coronary artery with other forms of angina pectoris
CPT/HCPCS: 36415; 80053; 83735; 85025; 96372; 99284; J2270; J2405; J9999

== ENCOUNTER 2024-08-14 02:47 | Emergency (ER) | payer MEDICARE, SELFPAY ==
[2024-08-14 02:49] VITALS: BP 188/95; PULSE 84; RESP 16; TEMP 36.6; O2SAT 98; BMI 19.9
--- NOTE | 2024-08-14 04:50 | W.ED.EXTPRO ---
HPI - Extremity Problem General: Chief complaint: Extremity Injury, Lower Stated complaint: LEG PAIN Time Seen by Provider: 08/14/24 04:42 History of Present Illness: Ivan Peguero presents to the emergency department with chronic bilateral leg pain that has acutely worsened. The patient reports a long-standing history of leg pain and was seen in the ED just two days ago for the same complaint. The patient states that the leg pain suddenly became much worse, describing it as hurting real bad again. When asked about changes or new symptoms, the patient denies any new developments, indicating that the pain is similar in character to their usual pain but more severe. The patient is unable to identify specific aggravating factors or reasons for the acute exacerbation, stating I don't know when asked why tonight is worse. The patient reports taking their prescribed medications as directed, including those for hypertension. However, it is noted that their blood pressure remains elevated despite medication adherence. The patient acknowledges that their current antihypertensive regimen may no longer be effectively controlling their blood pressure, stating, I don't think it's controlling it anymore. Regarding pain management, the patient mentions previous involvement with pain management services but does not elaborate on the current status of this care. The patient reports not having any pain medication at home to manage their symptoms. Related Data Home Medications ?Medication ?Instructions ?Recorded ?Confirmed oxycodone 10 mg tablet 10 - 20 mg PO Q4H PRN Pain, 11/19/23 08/06/24 Moderate amiodarone 200 mg tablet 200 mg PO DAILY 07/03/24 08/06/24 atorvastatin 40 mg tablet 40 mg PO DAILY 08/06/24 08/06/24 pantoprazole 40 mg tablet,delayed 40 mg PO BID 08/06/24 08/06/24 release ropinirole 0.5 mg tablet 0.5 mg PO BEDTIME 08/06/24 08/06/24 Previous Rx's ?Medication ?Instructions ?Recorded Monet Lam Toe [employer] #1 ea 10/03/22 cyanocobalamin (vitamin B-12) 1,000 mcg PO DAILY #90 tabs 05/16/24 1,000 mcg tablet (Vitamin B-12) levothyroxine 75 mcg tablet 75 mcg PO QAM #90 tabs 05/21/24 amlodipine 10 mg tablet 10 mg PO DAILY #90 tabs 06/12/24 sertraline 25 mg tablet 25 mg PO DAILY #100 tabs 06/16/24 ferrous gluconate 324 mg (38 mg 324 mg PO BID #180 tabs 06/24/24 iron) tablet aripiprazole 5 mg tablet 5 mg PO .qpm #30 tabs 07/15/24 hydrocodone 5 mg-acetaminophen 325 1 tab PO Q6H PRN pain #14 tabs 08/06/24 mg tablet bupropion HCl 150 mg 24 hr tablet, 150 mg PO QAM #30 tabs 08/12/24 extended release (Wellbutrin XL) lisinopril 20 mg tablet 20 mg PO DAILY #30 tabs 08/12/24 Allergies Allergy/AdvReac Type Severity Reaction Status Date / Time No Known Allergies Allergy Verified 07/03/24 14:41 PFSH ED PFSH: Medical History Pacemaker Long-term current use of opiate analgesic Goes to [facility] Depression, major Mitral regurgitation Aortic valve stenosis Mitral regurgitation Exocrine pancreatic insufficiency Renal insufficiency Hiatal hernia with GERD Hypothyroidism Enrolled in chronic care management Osteoporosis Atherosclerotic heart disease of [place] coronary artery with other forms of angina pectoris Abnormal cardiovascular stress test NSTEMI (non-ST elevated myocardial infarction) Hyperlipidemia Hypertension Past heart attack Pain management contract signed Restless legs syndrome Fibromyalgia Chronic low back pain Dr. Benavidez es pain meds Surgical History History of implantable cardiac defibrillator (ICD) [facility] 04/19--pacemaker/defibrillator Hx of cardiac catheterization 1.19.25 OZH--no obstructive disease Hx of esophagogastroduodenoscopy 3.28.24 large hiatal hernia; gastritis Hx of colonoscopy 10.4.21 normal anastomosis S/P foot surgery History of mandibular surgery R jaw--has titanium plate; done for tumor--benign History of bowel resection benign growth H/O ileostomy Hx of appendectomy (~1973) Hx of hysterectomy (~1973) still has ovaries; had hyst due to bleeding; no cancer History of reversal of ileostomy Hx of tubal ligation Hx of foot surgery (~11/2013) RIGHT FOOT Family History Brother , BONE METS Cancer COLON CANCER Mother Heart disease Family history of thyroid problem Grandmother Heart disease Father Hyperlipidemia Bone cancer Social History Smoking and tobacco/nicotine status: former use of tobacco/nicotine Quit status (tobacco/nicotine): has quit using Year quit tobacco: quit 1989 Second hand smoke exposure: No Alcohol intake: never Substance/Drug Use: never Lives independently: Yes Household members: none Marital status: / Number of children: 3 Highest education level completed: Some College, No Degree Current occupational status: retired 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 Physical Exam Const: COMMON NORMALS: no acute distress, average body habitus, patient oriented x3, no limitations, healthy appearing, alert and well nourished GENERAL APPEARANCE: cooperative and comfortable ORIENTATION/CONSCIOUSNESS: Yes awake, Yes oriented to person, Yes oriented to place and Yes oriented to time Chest: COMMONS NORMALS: normal inspection of the chest and normal palpation of entire chest wall Resp: COMMON NORMALS: normal respiratory effort and clear to auscultation bilaterally AUSCULTATION: clear to auscultation bilaterally Cardio: COMMON NORMALS: regular rate and regular rhythm RATE: regular rate RHYTHM: regular rhythm GI: COMMON NORMALS: Normal to inspection, nondistended, normoactive bowel sounds present, Soft to palpation, non-tender and no masses PALPATION: Yes Soft to palpation Back/Pelvis: COMMON NORMALS: thoracic and lumbar spine normal to inspection, no thoracic nor lumbar tenderness, thoraco-lumbar ROM normal and straight leg raise negative bilaterally Extremity: COMMON NORMALS: normal to inspection, full ROM, capillary refill normal, no joint enlargement, no clubbing, cyanosis or edema, no calf tenderness and no pedal edema GENERAL: Yes normal exam except as noted Neuro: COMMON NORMALS: patient oriented x3, moves all extremities, no focal motor deficits and no sensory deficits noted SENSORIUM/ORIENTATION: Yes alert, Yes oriented to person, Yes oriented to place and Yes oriented to time Skin: COMMON NORMALS: no rashes or lesions noted GENERAL SKIN EXAM: no rashes or lesions noted Course Vital Signs: Vital signs: Vital Signs Temperature 97.9 F 08/14/24 02:49 Pulse Rate 70 08/14/24 06:26 Respiratory Rate 16 08/14/24 06:26 Blood Pressure 189/96 08/14/24 06:26 Pulse Oximetry 94 08/14/24 06:26 Oxygen Delivery Me thod Room Air 08/14/24 02:49 MDM - Extremity (Nontraumatic) Medical Decision Making 78-year-old female presents to the emergency department for evaluation of chronic bilateral lower extremity pain. She was seen in this emergency department 2 days ago with labs that only demonstrate a slight hypokalemia that was improving compared to previous. Patient states that there is no real significant difference in her pain. Unremarkable exam today. Encouraged the patient to follow-up with her primary care provider as an outpatient for further management. Return precautions were discussed the patient was discharged home in good condition. No radiology studies performed this visit Discharge Plan Discharge Patient Disposition: Home Clinical Impression: Chronic pain Qualifiers: Chronic pain type: chronic pain syndrome Qualified Code(s): G89.4 - Chronic pain syndrome Hypertension Qualifiers: Hypertension type: essential hypertension Qualified Code(s): I10 - Essential (primary) hypertension Condition: Stable Prescriptions: No Action amiodarone 200 mg tablet 200 mg PO DAILY (DME) Monet Lam Toe [employer] See Rx Instructions .Route .MEDSUPPLY Qty: 1 0RF Rx Instructions: As directed by HOME cyanocobalamin (vitamin B-12) [Vitamin B-12] 1,000 mcg tablet 1,000 mcg PO DAILY Qty: 90 3RF levothyroxine 75 mcg tablet 75 mcg PO QAM Qty: 90 0RF amlodipine 10 mg tablet 10 mg PO DAILY Qty: 90 1RF sertraline 25 mg tablet 25 mg PO DAILY Qty: 100 0RF ferrous gluconate 324 mg (38 mg iron) tablet 324 mg PO BID Qty: 180 0RF aripiprazole 5 mg tablet 5 mg PO .qpm Qty: 30 2RF bupropion HCl [Wellbutrin XL] 150 mg tablet extended release 24 hr 150 mg PO QAM Qty: 30 1RF lisinopril 20 mg tablet 20 mg PO DAILY Qty: 30 1RF hydrocodone-acetaminophen 5-325 mg tablet 1 tab PO Q6H PRN (Reason: pain) Qty: 14 0RF atorvastatin 40 mg tablet 40 mg PO DAILY ropinirole 0.5 mg tablet 0.5 mg PO BEDTIME pantoprazole 40 mg tablet,delayed release (DR/EC) 40 mg PO BID oxycodone 10 mg tablet 10 - 20 mg PO Q4H PRN (Reason: Pain, Moderate) Rx Instructions: TAKE 1 TO 2 TABLETS BY MOUTH EVERY 4 TO 6 HOURS NEEDED FOR PAIN max 6 PER day Discharge Orders: Discharge ED (Routine); Ordered 08/14/24 Ordered By: Yoni Law Referrals: Lynda Lopez MD [Primary Care Provider, [facility]] Discharge Diet: Advance as tolerated Discharge Activity: Resume usual activity Patient Instructions: Opioid Safety, Pain Management Activity Restrictions/Additional Instructions: Please follow-up with your primary care physician for further management of your hypertension and chronic bilateral leg pain. Please return to the emergency department for any new or worsening pain. Print Language: Macedonian Coding Level of Care Code ED Decaler for Gemma Church
[2024-08-14] MEDS: hyDRALAzine 25 mg Tablet PO (05:01)
[2024-08-14] MEDS: acetaminophen 325 mg Tablet 650 MG PO (05:01)
[2024-08-14] MEDS: hyDRALAzine 20 mg/mL INJ 1 mL IM (05:48)
[2024-08-14] MEDS: ketorolac 30 mg/mL INJ IM (06:12)
[2024-08-14 06:26] VITALS: BP 189/96; PULSE 70; RESP 16; O2SAT 94
== END 2024-08-14 06:27 | disposition home or self-care (01) ==
PROVIDERS: Emergency Provider General Practice; PCP Family Medicine
DX: G89.4 Chronic pain syndrome (principal); M25.562 Pain in left knee; M25.561 Pain in right knee; E78.5 Hyperlipidemia, unspecified; I25.2 Old myocardial infarction; E03.9 Hypothyroidism, unspecified; I10 Essential (primary) hypertension; I25.10 Atherosclerotic heart disease of native coronary artery without angina pectoris; Z79.899 Other long term (current) drug therapy; Z95.0 Presence of cardiac pacemaker; Z79.891 Long term (current) use of opiate analgesic; Z87.891 Personal history of nicotine dependence
CPT/HCPCS: 96372; 99284; J0360; J1885; J9999

== ENCOUNTER 2024-08-24 07:28 | Emergency (ER) | payer MEDICARE, SELFPAY ==
[2024-08-24 07:28] VITALS: BP 184/114; PULSE 96; RESP 14; TEMP 36.9; O2SAT 92; BMI 19.9
[2024-08-24 07:34] VITALS: BP 184/114; PULSE 96; RESP 14; O2SAT 92
--- NOTE | 2024-08-24 07:37 | XRR_ITS ---
PROCEDURE INFORMATION: Exam: XR Abdomen Exam date and time: 08/24/2024 7:41 AM Age: 78 years old Clinical indication: Abdominal pain; Generalized; Prior surgery; Surgery date: 6+ months; Surgery type: Small bowel, benign tumor; Additional info: Abd pain TECHNIQUE: Imaging protocol: Radiologic exam of the abdomen. Views: Frontal supine view of the abdomen. 1 View. COMPARISON: CT abdomen pelvis w con* [id number] 05/09/2024 5:07 PM FINDINGS: Tubes, catheters and devices: Single lead pacemaker/defibrillator. No bowel dilation. Gastrointestinal tract: Moderate colonic fecal material suggesting constipation. The rectum is distended with fecal material, impaction might present. Bones/joints: Unremarkable. XR/XR KUB portable [id number] IMPRESSION: Likely constipation and or fecal impaction.
--- NOTE | 2024-08-24 07:39 | ED_ITS ---
HPI - Abdominal Pain 2 General: Chief Complaint: Abdominal Pain Stated Complaint: weakness Time Seen by Provider: 08/24/24 07:31 History of Present Illness: 78-year-old female presents emergency ro om with generalized abdominal pain. She states she had a bowel movement in about 4 days. No hematochezia melena hematemesis coffee-ground with no dysuria urgency or frequency no chest pain or shortness of breath she complains of diffuse abdominal discomfort. She previously had a bowel resection in the old records it says it was for benign growth she was not able to give anything more specific than that. No other specific complaints Associated Symptoms: Denies chills, dysuria and fever(s) Related Data Home Medications ?Medication ?Instructions ?Recorded ?Confirmed oxycodone 10 mg tablet 10 - 20 mg PO Q4H PRN Pain, 11/19/23 08/24/24 Moderate amiodarone 200 mg tablet 200 mg PO DAILY 07/03/2404/19 atorvastatin 40 mg tablet 40 mg PO DAILY 08/06/2404/19 pantoprazole 40 mg tablet,delayed 40 mg PO BID 5 08/24/24 release ropinirole 0.5 mg tablet 0.5 mg PO BEDTIME 08/06/24 0 08/24/24 Previous Rx's ?Medication ?Instructions ?Recorded Monet Lam Toe Quality Assurance Assistant #1 ea 10/03/22 cyanocobalamin (vitamin B-12) 1,000 mcg PO DAILY #90 t abs 05/16/24 1,000 mcg tablet (Vitamin B-12) levothyroxine 75 mcg tablet 75 mcg PO QAM #90 tabs amlodipine 10 mg tablet 10 mg PO DAILY #90 tabs 05/25 aripiprazole 5 mg tablet 5 mg PO .qpm #30 tabs hydrocodone 5 mg-acetaminophen 325 1 tab PO Q6H PRN pa in #14 tabs 08/06/24 mg tablet bupropion HCl 150 mg 24 hr tablet, 150 mg PO QAM #30 t abs 08/12/24 extended release (Wellbutrin XL) lisinopril 20 mg tablet 20 mg PO DAILY #30 tabs 07/25 0 ferrous gluconate 324 mg (38 mg See Rx Instructions .R oute 08/22/24 iron) tablet .COMPLEX #180 tabs sertraline 25 mg tablet See Rx Instructions .Route 0 08/22/24 .COMPLEX #100 tabs lactulose 10 gram/15 mL oral 30 ml PO Q2H PRN constipa tion 72 08/24/24 solution (Generlac) hours #1,080 mL polyethylene glycol 3350 17 17 g PO DAILY #850 grams 0 08/24/24 gram/dose oral powder (Purelax) Allergies Allergy/AdvReac Type Severity Reaction Status Date / Time No Known Allergies Allergy Verified 08/24/24 07:34 Review of Systems 2 Const: Denies: fever(s) or chills Card: Denies: chest pain Resp: Denies: dyspnea GI: Denies: abdominal pain : Denies: dysuria, urinary frequency or urinary urgency Musc: Denies: neck pain or back pain Skin/Breast: Denies: rash PFSH ED 2 PFSH: Medical History (Updated 08/24/24 @ 09:12 by Art Desai DO) Ventricular tachycardia (paroxysmal) Polymorphic ventricular tachycardia Pacemaker Long-term current use of opiate analgesic Goes to [facility] Depression, major Mitral regurgitation Aortic valve stenosis Mitral regurgitation Exocrine pancreatic insufficiency Renal insufficiency Hiatal hernia with GERD Hypothyroidism Enrolled in chronic care management Osteoporosis Atherosclerotic heart disease of [place] coronary artery with other forms of angina pectoris Abnormal cardiovascular stress test NSTEMI (non-ST elevated myocardial infarction) Hyperlipidemia Hypertension Past heart attack Pain management contract signed Restless legs syndrome Fibromyalgia Chronic low back pain Dr. Benavidez Rxes pain meds Surgical History History of implantable cardiac defibrillator (ICD) [facility] 04/19--pacemaker/defibrillator Hx of cardiac catheterization 1.19.25 OZH--no obstructive disease Hx of esophagogastroduodenoscopy 3.28.24 large hiatal hernia; gastritis Hx of colonoscopy 10.4.21 normal anastomosis S/P foot surgery History of mandibular surgery R jaw--has titanium plate; done for tumor--benign History of bowel resection benign growth H/O ileostomy Hx of appendectomy (~1973) Hx of hysterectomy (~1973) still has ovaries; had hyst due to bleeding; no cancer History of reversal of ileostomy Hx of tubal ligation Hx of foot surgery (~11/2013) RIGHT FOOT Family History Brother , BONE METS Cancer COLON CANCER Mother Heart disease Family history of thyroid problem Grandmother Heart disease Father Hyperlipidemia Bone cancer Social History Smoking and tobacco/nicotine status: former use of tobacco/nicotine Quit status (tobacco/nicotine): has quit using Year quit tobacco: quit 1989 Second hand smoke exposure: No Alcohol intake: never Substance/Drug Use: never Lives independently: Yes Household members: none Marital status: / Number of children: 3 Highest education level completed: Some College, No Degree Current occupational status: retired 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 Physical Exam 2 Const: COMMON NORMALS: no acute distress GENERAL APPEARANCE: cooperative and comfortable ORIENTATION/CONSCIOUSNESS: Yes awake, Yes oriented to person, Yes oriented to place and Yes oriented to time HENMT: COMMON NORMALS: normocephalic, atraumatic and hearing grossly normal bilaterally HEAD & SCALP: normocephalic and atraumatic Resp: COMMON NORMALS: normal respiratory effort, No retractions, No use of accessory muscles and clear to auscultation bilaterally AUSCULTATION: clear to auscultation bilaterally Cardio: COMMON NORMALS: regular rate, regular rhythm and No murmurs present (Cardio) RATE: regular rate RHYTHM: regular rhythm GI: AUSCULTATION: Yes normoactive bowel sounds PALPATION: Yes Tenderness to palpation present (GI) (Diffuse nonspecific) and No Guarding due to palpation present (GI) Extremity: COMMON NORMALS: normal to inspection, capillary refill normal, no clubbing, cyanosis or edema, no calf tenderness and no pedal edema Neuro: SENSORIUM/ORIENTATION: Yes oriented to person, Yes oriented to place and Yes oriented to time Skin: COMMON NORMALS: no rashes or lesions noted GENERAL SKIN EXAM: no rashes or lesions noted Course 2 Vital Signs: Vital signs: Vital Signs Temperature 98.4 F 08/24/24 07:28 Pulse Rate 71 08/24/24 12:48 Respiratory Rate 14 08/24/24 07:34 Blood Pressure 192/111 08/24/24 12:48 Pulse Oximetry 94 08/24/24 12:48 Oxygen Delivery Me thod Room Air 08/24/24 11:35 MDM - Abdominal Pain Medical Decision Making CT does not show any colonic obstruction. Does show fair amount of retained urine we did drain her bladder which helps her evacuate her bowels some. She had some improvement with enema. Will discharge patient home start MiraLAX for long-term maintenance and gave lactulose for short-term relief of constipation follow-up with primary care Differential Diagnosis Likely abdominal pain, acute appendicitis, calculus of kidney, constipation, diverticulitis, gastroenteritis and small bowel obstruction Medical Records I reviewed the patient's medical records. Lab Data I reviewed the patient's lab results. 08/24/24 07:57 08/24/24 07:57 Labs/Radiology: Radiology Impressions KUB X-Ray 08/24/24 07:37 IMPRESSION: Likely constipation and or fecal impaction. Abdomen/Pelvis CT 08/24/24 07:47 IMPRESSION: Likely constipation and possible fecal impaction. Possible stercoral colitis. Moderate/large hiatal hernia, incompletely imaged. Laboratory Results WBC 8.82 10^3/uL (3.29-11.43) 08/24/24 07:57 RBC 4.40 10^6/uL (3.85-5.65) 08/24/24 07:57 Hgb 12.50 g/dL (11.27-16.99) 08/24/24 07:57 Hct 39.4 % (36-47) 08/24/24 07:57 MCV 89.5 fl (85-98) 08/24/24 07:57 MCH 28.4 pg (27-33) 08/24/24 07:57 MCHC 31.7 g/dL (30-55) 08/24/24 07:57 RDW 16.1 % (12.1-15.1) H 08/24/24 07:57 Plt Count 296 10^3/cmm (157-399) 08/24/24 07:57 MPV 9.5 fL (7.4-10.4) 08/24/24 07:57 Neut % (Auto) 69.5 % 08/24/24 07:57 Lymph % (Auto) 17.8 % 08/24/24 07:57 [place] % (Auto) 7.8 % 08/24/24 07:57 Eos % (Auto) 4.4 % 08/24/24 07:57 Baso % (Auto) 0.3 % 08/24/24 07:57 Neut # (Auto) 6.12 10^3/uL (1.8-7.7) 08/24/24 07:57 Lymph # (Auto) 1.6 10^3/uL (0.8-4.8) 08/24/24 07:57 [place] # (Auto) 0.7 10^3/uL (0.2-0.9) 08/24/24 07:57 Eos # (Auto) 0.4 10^3/uL (0.0-0.8) 08/24/24 07:57 Baso # (Auto) 0.0 10^3/uL (0.0-0.1) 08/24/24 07:57 Nucleated RBC % (auto) 0 % 08/24/24 07:57 Nucleated RBCs # 0.0 /100WBC 08/24/24 07:57 Sodium 142 mmol/L (136-145) 08/24/24 07:57 Potassium 3.5 mmol/L (3.5-5.1) 08/24/24 07:57 Chloride 104 mmol/L (98-107) 08/24/24 07:57 Carbon Dioxide 24 mmol/L (22-29) 08/24/24 07:57 Anion Gap 17.5 (5-19) 08/24/24 07:57 BUN 11 mg/dL (8-23) 08/24/24 07:57 Creatinine 1.0 mg/dL (0.5-0.9) H 08/24/24 07:57 GFR Calculation Not Reportable 08/24/24 07:57 Glucose 92 mg/dL (65-115) 08/24/24 07:57 Calculated Osmolality 293 mOsm/kg (285-295) 08/24/24 07:57 Calcium 10.1 mg/dL (8.5-10.5) 08/24/24 07:57 Total Bilirubin 1.5 mg/dL (0.15-1.2) H 08/24/24 07:57 AST 13 U/L (0-32) 08/24/24 07:57 ALT 7 U/L (0-33) 08/24/24 07:57 Alkaline Phosphatase 76 U/L (35-105) 08/24/24 07:57 Total Protein 6.3 g/dL (6.6-8.7) L 08/24/24 07:57 Albumin 3.6 g/dL (3.5-5.2) 08/24/24 07:57 Globulin 2.7 g/dL (1.3-4.6) 08/24/24 07:57 Lipase 8 U/L (13-60) L 08/24/24 07:57 Urine Color Dark yellow (Yellow) A 08/24/24 07:57 Urine Appearance Clear (CLEAR) 08/24/24 07:57 Urine pH 5.5 (5-7) 08/24/24 07:57 Ur Specific [place] 1.020 (1.005-1.030) 08/24/24 07:57 Urine Protein Trace (Negative) A 08/24/24 07:57 Urine Glucose (UA) Negative (Normal) 08/24/24 07:57 Urine Ketones Negative (Negative) 08/24/24 07:57 Urine Blood Negative (Negative) 08/24/24 07:57 Urine Nitrate Negative (Negative) 08/24/24 07:57 Urine Bilirubin Negative (Negative) 08/24/24 07:57 Urine Urobilinogen 1.0 mg/dL (Negative) 08/24/24 07:57 Ur Leukocyte Esterase Negative (Negative) 08/24/24 07:57 Urine RBC 0-2 /hpf (0-2) 08/24/24 07:57 Urine WBC 0-5 /hpf (0-5) 08/24/24 07:57 Ur Squamous Epith Cells 0-5 /hpf (0-5) 08/24/24 07:57 Amorphous Sediment Not Reportable 08/24/24 07:57 Urine Bacteria None seen /hpf (NONE) 08/24/24 07:57 Hyaline Casts 1.65 /lpf 08/24/24 07:57 All radiology interpretation(s) finalized by discharge Discharge Plan Discharge Patient Disposition: Home Clinical Impression: Constipation Condition: Stable Prescriptions: New lactulose [Generlac] 10 gram/15 mL solution 30 ml PO Q2H PRN (Reason: constipation) 3 Days Qty: 1080 0RF Rx Instructions: until desired laxative effect polyethylene glycol 3350 [Purelax] 17 gram/dose powder 17 g PO DAILY Qty: 850 0RF No Action amiodarone 200 mg tablet 200 mg PO DAILY (DME) Monet Heatonmarta Toe Quality Assurance Assistant See Rx Instructions .Route .MEDSUPPLY Qty: 1 0RF Rx Instructions: As directed by HOME cyanocobalamin (vitamin B-12) [Vitamin B-12] 1,000 mcg tablet 1,000 mcg PO DAILY Qty: 90 3RF levothyroxine 75 mcg tablet 75 mcg PO QAM Qty: 90 0RF amlodipine 10 mg tablet 10 mg PO DAILY Qty: 90 1RF aripiprazole 5 mg tablet 5 mg PO .qpm Qty: 30 2RF bupropion HCl [Wellbutrin XL] 150 mg tablet extended release 24 hr 150 mg PO QAM Qty: 30 1RF lisinopril 20 mg tablet 20 mg PO DAILY Qty: 30 1RF ferrous gluconate 324 mg (38 mg iron) tablet See Rx Instructions .ROUTE .COMPLEX Qty: 180 0RF Dose Instruction: TAKE ONE TABLET BY MOUTH TWICE DAILY Rx Instructions: TAKE ONE TABLET BY MOUTH TWICE DAILY sertraline 25 mg tablet See Rx Instructions .ROUTE .COMPLEX Qty: 100 0RF Dose Instruction: TAKE ONE TABLET BY MOUTH EVERY DAY Rx Instructions: TAKE ONE TABLET BY MOUTH EVERY DAY hydrocodone-acetaminophen 5-325 mg tablet 1 tab PO Q6H PRN (Reason: pain) Qty: 14 0RF atorvastatin 40 mg tablet 40 mg PO DAILY ropinirole 0.5 mg tablet 0.5 mg PO BEDTIME pantoprazole 40 mg tablet,delayed release (DR/EC) 40 mg PO BID oxycodone 10 mg tablet 10 - 20 mg PO Q4H PRN (Reason: Pain, Moderate) Rx Instructions: TAKE 1 TO 2 TABLETS BY MOUTH EVERY 4 TO 6 HOURS NEEDED FOR PAIN max 6 PER day Discharge Orders: Discharge ED (Routine); Ordered 08/24/24 Ordered By: Art Desai Referrals: Lynda Lopez MD [Primary Care Provider, Family Practice] Patient Instructions: Opioid Safety, Pain Management Activity Restrictions/Additional Instructions: Thank you for choosing [facility] for your healthcare needs today. It is very important that you follow up as instructed or that you return to the Emergency Department should you have concerns or if your condition changes or worsens in any way. You are seen in the emergency room with complaint of abdominal pain. Your laboratory tests were normal. CT showed severe constipation there was no reported signs of any obstruction in your colon. You were treated with an enema in the emergency room as well as catheterizing your bladder the retained stool in the rectum was blocking the bladder from draining. Recommend that you start MiraLAX half a capful twice a day. You were given lactulose to use at home to help relieve the constipation Print Language: Ethiopian Coding Level of Care Code ED Salt Machine Operator for Gemma Church
--- NOTE | 2024-08-24 07:47 | CTR_ITS ---
PROCEDURE INFORMATION: Exam: CT Abdomen And Pelvis With Contrast Exam date and time: 08/24/2024 8:42 AM Age: 78 years old Clinical indication: Abdominal pain; Colic; Prior surgery; Surgery date: 6+ months; Surgery type: Small bowel resection d/t benign tumor; Additional info: Abd pain TECHNIQUE: Imaging protocol: Computed tomography of the abdomen and pelvis with contrast. Radiation optimization: All CT scans at this facility use at least one of these dose optimization techniques: automated exposure control; mA and/or kV adjustment per patient size (includes targeted exams where dose is matched to clinical indication); or iterative reconstruction. Contrast material: OMNIPAQUE 350; Contrast volume: 80 ml; Contrast route: INTRAVENOUS (IV); COMPARISON: CT abdomen pelvis w con* [id number] 05/09/2024 5:07 PM RADIATION DOSE METRICS: Total DLP (mGy-cm): 301.62 FINDINGS: Diaphragm: Moderate/large hiatal hernia, incompletely imaged. Liver: Normal. No mass. Gallbladder and biliary ducts: Normal. No calcified stones. No ductal dilation. Pancreas: Normal. No ductal dilation. Spleen: Normal. No splenomegaly. Adrenal glands: Normal. No mass. Kidneys and ureters: Normal. No hydronephrosis. Stomach and bowel: There is a large amount of colonic fecal material including distension of the rectum. Constipation and likely fecal impaction is present. Addition there is mild thickening of the wall of the distal sigmoid rectum with mild pericolonic stranding suggesting stercoral colitis. Appendix: No evidence of appendicitis. Moderate/large hiatal hernia. Intraperitoneal space: Unremarkable. No free air. No significant fluid collection. Vasculature: Unremarkable. No abdominal aortic aneurysm. Lymph nodes: Unremarkable. No enlarged lymph nodes. Urinary bladder: Small bubbles of gas within the urinary bladder are presumably related to recent instrumentation. Reproductive: Hysterectomy. Bones/joints: Unremarkable. No acute fracture. Soft tissues: Unremarkable. CT/CT abdomen pelvis w con* [id number] IMPRESSION: Likely constipation and possible fecal impaction. Possible stercoral colitis. Moderate/large hiatal hernia, incompletely imaged.
[2024-08-24 08:07] VITALS: BP 207/122; PULSE 73; O2SAT 93
[2024-08-24 08:13] LABS: Basophils % 0.3 %; Eosinophils # 0.4 10^3/uL (0.0-0.8); Eosinophils % 4.4 %; Hematocrit 39.4 % (36-47); Lymphocytes # 1.6 10^3/uL (0.8-4.8); Lymphocytes % 17.8 %; Mean Corpuscular HGB Conc 31.7 g/dL (30-55); Mean Corpuscular Hemoglobin 28.4 pg (27-33); Mean Corpuscular Volume 89.5 fl (85-98); Mean Platelet Volume 9.5 fL (7.4-10.4); Monocytes # 0.7 10^3/uL (0.2-0.9); Monocytes % 7.8 %; Neutrophils # 6.12 10^3/uL (1.8-7.7); Neutrophils % 69.5 %; Nucleated Red Blood Cells % 0 %; Platelet Count 296 10^3/cmm (157-399); Red Cell Distribution Width 16.1 % (12.1-15.1); White Blood Count 8.82 10^3/uL (3.29-11.43)
[2024-08-24 08:31] LABS: Alanine Aminotransferase 7 U/L (0-33); Albumin Level 3.6 g/dL (3.5-5.2); Alkaline Phosphatase 76 U/L (35-105); Anion Gap 17.5 (5-19); Aspartate Amino Transferase 13 U/L (0-32); Blood Urea Nitrogen 11 mg/dL (8-23); Calcium 10.1 mg/dL (8.5-10.5); Carbon Dioxide 24 mmol/L (22-29); Chloride 104 mmol/L (98-107); Creatinine Clr Calc Pharmacy 34.0685; Globulin 2.7 g/dL (1.3-4.6); Glucose 92 mg/dL (65-115); Lipase 8 U/L (13-60); Osmolality Calculated 293 mOsm/kg (285-295); Potassium 3.5 mmol/L (3.5-5.1); Sodium 142 mmol/L (136-145); Total Bilirubin 1.5 mg/dL (0.15-1.2); Total Protein 6.3 g/dL (6.6-8.7)
[2024-08-24] MEDS: ondansetron 2 mg/ML SDV 2 mL 4 MG IVP (08:34)
[2024-08-24] MEDS: ketorolac 30 mg/mL INJ IVP (08:34)
[2024-08-24 08:59] LABS: Add Urine Microscopic? YES; Bacteria Urine None Seen /hpf; Bilirubin Urine Negative (Negative); Blood Urine Negative (Negative); Glucose Urine UA Negative (Normal); Hyaline Casts Urine 1.65 /lpf; Ketones Urine Negative (Negative); Leukocyte Esterase Urine Negative (Negative); Nitrate Urine Negative (Negative); Protein Urine Trace (Negative); RBC Urine 0-2 /hpf (0-2); Squamous Epithelial Cell Urine 0-5 /hpf (0-5); Urine Appearance Clear (CLEAR); Urine Color Dark Yellow (Yellow); WBC Urine 0-5 /hpf (0-5); pH Urine 5.5 (5-7)
[2024-08-24 09:00] VITALS: BP 182/91; PULSE 69; O2SAT 90
[2024-08-24 09:06] LABS: UA Slide Review UA Slide Review Perf
[2024-08-24 11:35] VITALS: BP 184/106; PULSE 100; O2SAT 95
[2024-08-24 12:48] VITALS: BP 192/111; PULSE 71; O2SAT 94
== END 2024-08-24 20:42 | disposition home or self-care (01) ==
PROVIDERS: Emergency Provider Family Medicine; PCP Family Medicine
DX: K59.00 Constipation, unspecified (principal); Z87.891 Personal history of nicotine dependence; E78.5 Hyperlipidemia, unspecified; I10 Essential (primary) hypertension; Z95.0 Presence of cardiac pacemaker
CPT/HCPCS: 36415; 74018; 74177; 80053; 81001; 83690; 85025; 96374; 96375; 99285; J1885; J2405

== ENCOUNTER 2024-08-26 09:34 | Emergency (ER) | payer MEDICARE, SELFPAY ==
[2024-08-26] VITALS (9 sets, daily range): BP systolic 105–159; BP diastolic 64–83; PULSE 70–90; RESP 14; TEMP 37.1; O2SAT 88–96; BMI 20.5
--- NOTE | 2024-08-26 09:41 | W.ED.GENADLT ---
HPI - General Adult General: Chief complaint: Abdominal Pain Stated complaint: ABD Pain Time Seen by Provider: 08/26/24 09:35 History of Present Illness: 78-year-old female presents to the emergency room complaint abdominal pain. She is here 2 days ago treated with an enema given lactulose and MiraLAX. States she is still having difficulty with constipation. Associated symptoms: Deny chest pain, dyspnea or rash Related Data Home Medications ?Medication ?Instructions ?Recorded ?Confirmed oxycodone 10 mg tablet 10 - 20 mg PO Q4H PRN Pain, 11/19/23 08/24/24 Moderate amiodarone 200 mg tablet 200 mg PO DAILY 07/03/24 08/24/24 atorvastatin 40 mg tablet 40 mg PO DAILY 08/06/24 08/24/24 pantoprazole 40 mg tablet,delayed 40 mg PO BID 08/06/24 08/24/24 release ropinirole 0.5 mg tablet 0.5 mg PO BEDTIME 08/06/24 08/24/24 Previous Rx's ?Medication ?Instructions ?Recorded Monet Lam Toe Hemmer Automatic #1 ea 10/03/22 cyanocobalamin (vitamin B-12) 1,000 mcg PO DAILY #90 tabs 05/16/24 1,000 mcg tablet (Vitamin B-12) levothyroxine 75 mcg tablet 75 mcg PO QAM #90 tabs 05/21/24 amlodipine 10 mg tablet 10 mg PO DAILY #90 tabs 06/12/24 aripiprazole 5 mg tablet 5 mg PO .qpm #30 tabs 07/15/24 hydrocodone 5 mg-acetaminophen 325 1 tab PO Q6H PRN pain #14 tabs 08/06/24 mg tablet bupropion HCl 150 mg 24 hr tablet, 150 mg PO QAM #30 tabs 08/12/24 extended release (Wellbutrin XL) lisinopril 20 mg tablet 20 mg PO DAILY #30 tabs 08/12/24 ferrous gluconate 324 mg (38 mg See Rx Instructions .Route 08/22/24 iron) tablet .COMPLEX #180 tabs sertraline 25 mg tablet See Rx Instructions .Route 08/22/24 .COMPLEX #100 tabs lactulose 10 gram/15 mL oral 30 ml PO Q2H PRN constipation 72 08/24/24 solution (Generlac) hours #1,080 mL polyethylene glycol 3350 17 17 g PO DAILY #850 grams 08/24/24 gram/dose oral powder (Purelax) Allergies Allergy/AdvReac Type Severity Reaction Status Date / Time No Known Allergies Allergy Verified 08/26/24 09:41 Review of Systems Const: Denies: fever(s) or chills Card: Denies: chest pain Resp: Denies: dyspnea GI: Reports: abdominal pain and constipation : Denies: dysuria, urinary frequency or urinary urgency Musc: Denies: neck pain or back pain Skin/Breast: Denies: rash PFSH ED PFSH: Medical History Ventricular tachycardia (paroxysmal) Polymorphic ventricular tachycardia Pacemaker Long-term current use of opiate analgesic Goes to [facility] Depression, major Mitral regurgitation Aortic valve stenosis Mitral regurgitation Exocrine pancreatic insufficiency Renal insufficiency Hiatal hernia with GERD Hypothyroidism Enrolled in chronic care management Osteoporosis Atherosclerotic heart disease of [place] coronary artery with other forms of angina pectoris Abnormal cardiovascular stress test NSTEMI (non-ST elevated myocardial infarction) Hyperlipidemia Hypertension Past heart attack Pain management contract signed Restless legs syndrome Fibromyalgia Chronic low back pain Dr. Benavidez Rxes pain meds Surgical History History of implantable cardiac defibrillator (ICD) [facility] 04/19--pacemaker/defibrillator Hx of cardiac catheterization 1.19.25 O[facility]--no obstructive disease Hx of esophagogastroduodenoscopy 3.28.24 large hiatal hernia; gastritis Hx of colonoscopy 10.4.21 normal anastomosis S/P foot surgery History of mandibular surgery R jaw--has titanium plate; done for tumor--benign History of bowel resection benign growth H/O ileostomy Hx of appendectomy (~1973) Hx of hysterectomy (~1973) still has ovaries; had hyst due to bleeding; no cancer History of reversal of ileostomy Hx of tubal ligation Hx of foot surgery (~11/2013) RIGHT FOOT Family History Brother , BONE METS Cancer COLON CANCER Mother Heart disease Family history of thyroid problem Grandmother Heart disease Father Hyperlipidemia Bone cancer Social History Smoking and tobacco/nicotine status: former use of tobacco/nicotine Quit status (tobacco/nicotine): has quit using Year quit tobacco: quit 1989 Second hand smoke exposure: No Alcohol intake: never Substance/Drug Use: never Lives independently: Yes Household members: none Marital status: / Number of children: 3 Highest education level completed: Some College, No Degree Current occupational status: retired 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 Physical Exam Const: GENERAL APPEARANCE: cooperative ORIENTATION/CONSCIOUSNESS: Yes awake, Yes oriented to person, Yes oriented to place and Yes oriented to time HENMT: COMMON NORMALS: normocephalic, atraumatic and hearing grossly normal bilaterally HEAD & SCALP: normocephalic and atraumatic Resp: COMMON NORMALS: normal respiratory effort, No retractions, No use of accessory muscles and clear to auscultation bilaterally AUSCULTATION: clear to auscultation bilaterally Cardio: COMMON NORMALS: regular rate, regular rhythm and No murmurs present (Cardio) RATE: regular rate RHYTHM: regular rhythm GI: COMMON NORMALS: No hepatosplenomegaly present AUSCULTATION: Yes normoactive bowel sounds PALPATION: Yes Tenderness to palpation present (GI) (Mild diffuse), No Guarding due to palpation present (GI) and Yes No hepatosplenomegaly present Extremity: COMMON NORMALS: normal to inspection, capillary refill normal, no clubbing, cyanosis or edema, no calf tenderness and no pedal edema Neuro: SENSORIUM/ORIENTATION: Yes oriented to person, Yes oriented to place and Yes oriented to time Skin: COMMON NORMALS: no rashes or lesions noted GENERAL SKIN EXAM: no rashes or lesions noted Course Vital Signs: Vital signs: Vital Signs Temperature 98.8 F 08/26/24 09:36 Pulse Rate 90 08/26/24 09:36 Respiratory Rate 14 08/26/24 09:36 Blood Pressure 113/76 08/26/24 09:36 Pulse Oximetry 93 08/26/24 09:36 MDM - General Adult Medical Decision Making No signs of acute abdomen on exam. Patient given enema had very large result this time. Discussed with her the proper use of the MiraLAX and the lactulose. There are specific roles in managing her constipation issues we will discharge patient home have her follow-up with her primary care doctor No radiology studies performed this visit Discharge Plan Discharge Patient Disposition: Home Clinical Impression: Constipation Condition: Stable Prescriptions: No Action amiodarone 200 mg tablet 200 mg PO DAILY (DME) Monet Lam Toe Hemmer Automatic See Rx Instructions .Route .MEDSUPPLY Qty: 1 0RF Rx Instructions: As directed by HOME cyanocobalamin (vitamin B-12) [Vitamin B-12] 1,000 mcg tablet 1,000 mcg PO DAILY Qty: 90 3RF levothyroxine 75 mcg tablet 75 mcg PO QAM Qty: 90 0RF amlodipine 10 mg tablet 10 mg PO DAILY Qty: 90 1RF aripiprazole 5 mg tablet 5 mg PO .qpm Qty: 30 2RF bupropion HCl [Wellbutrin XL] 150 mg tablet extended release 24 hr 150 mg PO QAM Qty: 30 1RF lisinopril 20 mg tablet 20 mg PO DAILY Qty: 30 1RF ferrous gluconate 324 mg (38 mg iron) tablet See Rx Instructions .ROUTE .COMPLEX Qty: 180 0RF Dose Instruction: TAKE ONE TABLET BY MOUTH TWICE DAILY Rx Instructions: TAKE ONE TABLET BY MOUTH TWICE DAILY sertraline 25 mg tablet See Rx Instructions .ROUTE .COMPLEX Qty: 100 0RF Dose Instruction: TAKE ONE TABLET BY MOUTH EVERY DAY Rx Instructions: TAKE ONE TABLET BY MOUTH EVERY DAY hydrocodone-acetaminophen 5-325 mg tablet 1 tab PO Q6H PRN (Reason: pain) Qty: 14 0RF atorvastatin 40 mg tablet 40 mg PO DAILY ropinirole 0.5 mg tablet 0.5 mg PO BEDTIME pantoprazole 40 mg tablet,delayed release (DR/EC) 40 mg PO BID lactulose [Generlac] 10 gram/15 mL solution 30 ml PO Q2H PRN (Reason: constipation) 3 Days Qty: 1080 0RF Rx Instructions: until desired laxative effect polyethylene glycol 3350 [Purelax] 17 gram/dose powder 17 g PO DAILY Qty: 850 0RF oxycodone 10 mg tablet 10 - 20 mg PO Q4H PRN (Reason: Pain, Moderate) Rx Instructions: TAKE 1 TO 2 TABLETS BY MOUTH EVERY 4 TO 6 HOURS NEEDED FOR PAIN max 6 PER day Discharge Orders: Discharge ED (Routine); Ordered 08/26/24 Ordered By: Art Desai Referrals: Lynda Lopez MD [Primary Care Provider, Family Practice] Discharge Diet: Usual diet Discharge Activity: Increase activity as tolerated Patient Instructions: Opioid Safety, Pain Management Activity Restrictions/Additional Instructions: Thank you for choosing [facility] for your healthcare needs today. It is very important that you follow up as instructed or that you return to the Emergency Department should you have concerns or if your condition changes or worsens in any way. You are seen emergency room for constipation needed good results with the enema you are given in the ER. 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
== END 2024-08-26 14:30 | disposition home or self-care (01) ==
PROVIDERS: Emergency Provider Family Medicine; PCP Family Medicine
DX: K59.00 Constipation, unspecified (principal); Z87.891 Personal history of nicotine dependence; E78.5 Hyperlipidemia, unspecified; I10 Essential (primary) hypertension; Z95.0 Presence of cardiac pacemaker; I25.118 Atherosclerotic heart disease of native coronary artery with other forms of angina pectoris
CPT/HCPCS: 99283

== ENCOUNTER 2024-08-30 18:45 | Emergency (ER) | payer MEDICARE, SELFPAY ==
[2024-08-30 18:46] VITALS: BP 169/98; PULSE 88; RESP 16; TEMP 36.8; O2SAT 98; BMI 19.5
--- NOTE | 2024-08-30 20:10 | CTR_ITS ---
PROCEDURE INFORMATION: Exam: CT Abdomen And Pelvis Without Contrast Exam date and time: 08/30/2024 9:57 PM Age: 78 years old Clinical indication: Abdominal pain; Prior surgery; Surgery date: 6+ months; Surgery type: Pacemaker; Additional info: Abdominal pain, with oral contrast, thank you TECHNIQUE: Imaging protocol: Computed tomography of the abdomen and pelvis without contrast. Radiation optimization: All CT scans at this facility use at least one of these dose optimization techniques: automated exposure control; mA and/or kV adjustment per patient size (includes targeted exams where dose is matched to clinical indication); or iterative reconstruction. Other contrast: Oral, [id number], 25; COMPARISON: CT abdomen pelvis w con* [id number] 08/24/2024 8:42 AM RADIATION DOSE METRICS: Total DLP (mGy-cm): 291.07 FINDINGS: Heart: Mild cardiomegaly. Diaphragm: Moderate hiatal hernia. Liver: Unremarkable. Gallbladder and biliary ducts: Gallbladder is present. Pancreas: Part of the pancreas enters the hiatal hernia. Spleen: Unremarkable. Adrenal glands: Unremarkable. Kidneys and ureters: Unremarkable. No urinary tract stone or dilation. Stomach and bowel: Postsurgical changes involving bowel. Oral contrast scattered in bowel loops with mixed with feces in the colon. There are mildly dilated small bowel loops without an abrupt transition point identified. There is mild wall thickening of the rectum which is partly decompressed. Oral contrast reaches the sigmoid colon. There is a bowel containing right ventral abdominal wall hernia without an associated bowel obstruction at this site. Appendix: No evidence of appendicitis. Intraperitoneal space: No free air. No large fluid collection. Vasculature: No abdominal aortic aneurysm. Lymph nodes: No enlarged lymph nodes. Urinary bladder: Unremarkable as visualized. Reproductive: No obvious abnormality. Bones/joints: Sclerotic lesion in the L1 vertebral body potentially a bone island. Moderate multilevel degenerative changes. Soft tissues: Unremarkable. Other findings: Limited noncontrast exam. CT/CT abdomen pelvis wo con [id number] IMPRESSION: 1. Mildly dilated small bowel loops without abrupt transition point, which could relate to peristalsis or ileus. Wall thickening of the rectum, which could relate to decompression or proctocolitis. 2. Bowel containing right ventral abdominal wall hernia without associated bowel obstruction at this site. 3. Moderate hiatal hernia. Part of the pancreas enters the hiatal hernia.
--- NOTE | 2024-08-30 20:18 | W.ED.ABDPA2 ---
HPI - Abdominal Pain General: Chief Complaint: Abdominal Pain Stated Complaint: Constipation Time Seen by Provider: 08/30/24 19:34 History of Present Illness: Patient is 78-year-old female history of previous abdominal surgery, bowel resection, ileostomy, ileostomy reversal, tubal ligation, hysterectomy, appendectomy, on chronic pain medication that presents to the ED due to abdominal pain. Patient states she is not passing gas. She was last seen here on 08/26 and diagnosed with obstipation. CT at that time showed the possibility of stercoral colitis. Patient stated she did have initial improvement, now has distention. She does admit to hernia after prompting as well. Patient did not follow up with her pcp. Associated Symptoms: Reports bloating, change in bowel habits and nausea; Denies chills, excessive flatus, fever(s), hematochezia and vomiting Related Data Home Medications ?Medication ?Instructions ?Recorded ?Confirmed oxycodone 10 mg tablet 10 - 20 mg PO Q4H PRN Pain, 11/19/23 08/24/24 Moderate amiodarone 200 mg tablet 200 mg PO DAILY 07/03/24 08/24/24 atorvastatin 40 mg tablet 40 mg PO DAILY 08/06/24 08/24/24 pantoprazole 40 mg tablet,delayed 40 mg PO BID 08/06/24 08/24/24 release ropinirole 0.5 mg tablet 0.5 mg PO BEDTIME 08/06/24 08/24/24 Previous Rx's ?Medication ?Instructions ?Recorded Monet [facility] [employer] Splitter #1 ea 10/03/22 cyanocobalamin (vitamin B-12) 1,000 mcg PO DAILY #90 tabs 05/16/24 1,000 mcg tablet (Vitamin B-12) levothyroxine 75 mcg tablet 75 mcg PO QAM #90 tabs 05/21/24 amlodipine 10 mg tablet 10 mg PO DAILY #90 tabs 06/12/24 aripiprazole 5 mg tablet 5 mg PO .qpm #30 tabs 07/15/24 hydrocodone 5 mg-acetaminophen 325 1 tab PO Q6H PRN pain #14 tabs 08/06/24 mg tablet bupropion HCl 150 mg 24 hr tablet, 150 mg PO QAM #30 tabs 08/12/24 extended release (Wellbutrin XL) lisinopril 20 mg tablet 20 mg PO DAILY #30 tabs 08/12/24 ferrous gluconate 324 mg (38 mg See Rx Instructions .Route 08/22/24 iron) tablet .COMPLEX #180 tabs sertraline 25 mg tablet See Rx Instructions .Route 08/22/24 .COMPLEX #100 tabs polyethylene glycol 3350 17 17 g PO DAILY #850 grams 08/24/24 gram/dose oral powder (Purelax) Allergies Allergy/AdvReac Type Severity Reaction Status Date / Time No Known Allergies Allergy Verified 08/26/24 09:41 Review of Systems General: Reports: 10 or more systems reviewed and unremarkable except in HPI and below Const: Denies: fever(s) or chills Eyes: Denies: change in vision or blurry vision Card: Denies: chest pain or palpitations Resp: Denies: dyspnea or productive cough GI: Reports: abdominal pain, nausea, bloating and change in bowel habits; Denies: vomiting, dysphagia, excessive flatus or hematochezia : Denies: flank pain or difficulty voiding Musc: Denies: neck pain, back pain or joint pain Skin/Breast: Denies: rash or pruritus Neuro: Denies: headache(s) or numbness in extremities Psych: Denies: anxiety or depression Srinivasan/Lymph: Denies: easy bruising or easy bleeding PFSH ED PFSH: Medical History Ventricular tachycardia (paroxysmal) Polymorphic ventricular tachycardia Pacemaker Long-term current use of opiate analgesic Goes to [facility] Depression, major Mitral regurgitation Aortic valve stenosis Mitral regurgitation Exocrine pancreatic insufficiency Renal insufficiency Hiatal hernia with GERD Hypothyroidism Enrolled in chronic care management Osteoporosis Atherosclerotic heart disease of [place] coronary artery with other forms of angina pectoris Abnormal cardiovascular stress test NSTEMI (non-ST elevated myocardial infarction) Hyperlipidemia Hypertension Past heart attack Pain management contract signed Restless legs syndrome Fibromyalgia Chronic low back pain Dr. Benavidez es pain meds Surgical History History of implantable cardiac defibrillator (ICD) [facility] 04/19--pacemaker/defibrillator Hx of cardiac catheterization 119.25 OZH--no obstructive disease Hx of esophagogastroduodenoscopy 3.24 large hiatal hernia; gastritis Hx of colonoscopy 10.4.21 normal anastomosis S/P foot surgery History of mandibular surgery R jaw--has titanium plate; done for tumor--benign History of bowel resection benign growth H/O ileostomy Hx of appendectomy (~1973) Hx of hysterectomy (~1973) still has ovaries; had hyst due to bleeding; no cancer History of reversal of ileostomy Hx of tubal ligation Hx of foot surgery (~11/2013) RIGHT FOOT Family History Brother , BONE METS Cancer COLON CANCER Mother Heart disease Family history of thyroid problem Grandmother Heart disease Father Hyperlipidemia Bone cancer Social History Smoking and tobacco/nicotine status: former use of tobacco/nicotine Quit status (tobacco/nicotine): has quit using Year quit tobacco: quit 1989 Second hand smoke exposure: No Alcohol intake: never Substance/Drug Use: never Lives independently: Yes Household members: none Marital status: / Number of children: 3 Highest education level completed: Some College, No Degree Current occupational status: retired 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 Physical Exam Const: COMMON NORMALS: no acute distress, average body habitus and patient oriented x3 Chest: COMMONS NORMALS: normal inspection of the chest and normal palpation of entire chest wall Resp: COMMON NORMALS: normal respiratory effort, No retractions and clear to auscultation bilaterally AUSCULTATION: clear to auscultation bilaterally Cardio: COMMON NORMALS: regular rate and regular rhythm RATE: regular rate RHYTHM: regular rhythm GI: INSPECTION: Yes abdominal distension AUSCULTATION: Yes Hyperactive bowel sounds present and Yes High-pitched bowel sounds present PALPATION: Yes Firmness to palpation present (GI), Yes Tenderness to palpation present (GI) (diffusely), No Guarding due to palpation present (GI) and No Rigid due to palpation Extremity: COMMON NORMALS: normal to inspection and full ROM Neuro: COMMON NORMALS: patient oriented x3 Course Vital Signs: Vital signs: Vital Signs Temperature 98.3 F 08/30/24 18:46 Pulse Rate 81 08/30/24 22:40 Respiratory Rate 16 08/30/24 22:40 Blood Pressure 194/109 08/30/24 22:40 Pulse Oximetry 97 08/30/24 22:40 Oxygen Delivery Me thod Room Air 08/30/24 22:40 MDM - Abdominal Pain Medical Decision Making Patient is a 78-year-old female with ongoing issues of opioid-induced constipation with red casey of previous bowel surgery/ileostomy/ileostomy reversal. She does not have small bowel obstruction at this time however suspect association of obstipation. She has multiple electrolyte abnormalities that need corrected, potassium, magnesium. This has been an ongoing issue for Ms. Cornejo. Discussed with her that she needs a bowel regimen including milk of magnesia, MiraLAX, Senokot. She is in need of following up with her primary care physician. Attempted methylnaltrexone, however this is not available at this facility. Patient will follow-up at first the week for repeating electrolytes. She has been cautioned on opioids and told to decrease dosage to 1/2-1 per 24 hours. Patient states understanding. Lab Data 08/30/24 20:35 08/30/24 20:35 Labs/Radiology: Radiology Impressions Abdomen/Pelvis CT 08/30/24 20:10 IMPRESSION: 1. Mildly dilated small bowel loops without abrupt transition point, which could relate to peristalsis or ileus. Wall thickening of the rectum, which could relate to decompression or proctocolitis. 2. Bowel containing right ventral abdominal wall hernia without associated bowel obstruction at this site. 3. Moderate hiatal hernia. Part of the pancreas enters the hiatal hernia. Laboratory Results WBC 6.11 10^3/uL (3.29-11.43) 08/30/24 20:35 RBC 4.07 10^6/uL (3.85-5.65) 08/30/24 20:35 Hgb 11.50 g/dL (11.27-16.99) 08/30/24 20:35 Hct 35.3 % (36-47) L 08/30/24 20:35 MCV 86.7 fl (85-98) 08/30/24 20:35 MCH 28.3 pg (27-33) 08/30/24 20:35 MCHC 32.6 g/dL (30-55) 08/30/24 20:35 RDW 15.9 % (12.1-15.1) H 08/30/24 20:35 Plt Count 321 10^3/cmm (157-399) 08/30/24 20:35 MPV 9.6 fL (7.4-10.4) 08/30/24 20:35 Neut % (Auto) 61.2 % 08/30/24 20:35 Lymph % (Auto) 24.7 % 08/30/24 20:35 [place] % (Auto) 11.1 % 08/30/24 20:35 Eos % (Auto) 2.3 % 08/30/24 20:35 Baso % (Auto) 0.2 % 08/30/24 20:35 Neut # (Auto) 3.74 10^3/uL (1.8-7.7) 08/30/24 20:35 Lymph # (Auto) 1.5 10^3/uL (0.8-4.8) 08/30/24 20:35 [place] # (Auto) 0.7 10^3/uL (0.2-0.9) 08/30/24 20:35 Eos # (Auto) 0.1 10^3/uL (0.0-0.8) 08/30/24 20:35 Baso # (Auto) 0.0 10^3/uL (0.0-0.1) 08/30/24 20:35 Nucleated RBC % (auto) 0 % 08/30/24 20:35 Nucleated RBCs # 0.0 /100WBC 08/30/24 20:35 Sodium 141 mmol/L (136-145) 08/30/24 20:35 Potassium 2.6 mmol/L (3.5-5.1) L* 08/30/24 20:35 Chloride 105 mmol/L (98-107) 08/30/24 20:35 Carbon Dioxide 23 mmol/L (22-29) 08/30/24 20:35 Anion Gap 15.6 (5-19) 08/30/24 20:35 BUN 12 mg/dL (8-23) 08/30/24 20:35 Creatinine 1.0 mg/dL (0.5-0.9) H 08/30/24 20:35 GFR Calculation Not Reportable 08/30/24 20:35 Glucose 105 mg/dL (65-115) 08/30/24 20:35 Calculated Osmolality 292 mOsm/kg (285-295) 08/30/24 20:35 Lactic Acid 1.2 mmol/L (0.5-2.2) 08/30/24 20:35 Calcium 8.0 mg/dL (8.5-10.5) L 08/30/24 20:35 Magnesium 1.1 mg/dL (1.7-2.3) L 08/30/24 20:35 Total Bilirubin 0.5 mg/dL (0.15-1.2) 08/30/24 20:35 AST 11 U/L (0-32) 08/30/24 20:35 ALT 6 U/L (0-33) 08/30/24 20:35 Alkaline Phosphatase 68 U/L (35-105) 08/30/24 20:35 Total Protein 5.8 g/dL (6.6-8.7) L 08/30/24 20:35 Albumin 3.6 g/dL (3.5-5.2) 08/30/24 20:35 Globulin 2.2 g/dL (1.3-4.6) 08/30/24 20:35 No radiology studies performed this visit Discharge Plan Discharge Patient Disposition: Home Clinical Impression: Obstipation, Hypokalemia, Hypomagnesemia Condition: Stable Prescriptions: No Action amiodarone 200 mg tablet 200 mg PO DAILY (DME) Monet [facility] To[employer] Splitter See Rx Instructions .Route .MEDSUPPLY Qty: 1 0RF Rx Instructions: As directed by HOME cyanocobalamin (vitamin B-12) [Vitamin B-12] 1,000 mcg tablet 1,000 mcg PO DAILY Qty: 90 3RF levothyroxine 75 mcg tablet 75 mcg PO QAM Qty: 90 0RF amlodipine 10 mg tablet 10 mg PO DAILY Qty: 90 1RF aripiprazole 5 mg tablet 5 mg PO .qpm Qty: 30 2RF bupropion HCl [Wellbutrin XL] 150 mg tablet extended release 24 hr 150 mg PO QAM Qty: 30 1RF lisinopril 20 mg tablet 20 mg PO DAILY Qty: 30 1RF ferrous gluconate 324 mg (38 mg iron) tablet See Rx Instructions .ROUTE .COMPLEX Qty: 180 0RF Dose Instruction: TAKE ONE TABLET BY MOUTH TWICE DAILY Rx Instructions: TAKE ONE TABLET BY MOUTH TWICE DAILY sertraline 25 mg tablet See Rx Instructions .ROUTE .COMPLEX Qty: 100 0RF Dose Instruction: TAKE ONE TABLET BY MOUTH EVERY DAY Rx Instructions: TAKE ONE TABLET BY MOUTH EVERY DAY hydrocodone-acetaminophen 5-325 mg tablet 1 tab PO Q6H PRN (Reason: pain) Qty: 14 0RF atorvastatin 40 mg tablet 40 mg PO DAILY ropinirole 0.5 mg tablet 0.5 mg PO BEDTIME pantoprazole 40 mg tablet,delayed release (DR/EC) 40 mg PO BID polyethylene glycol 3350 [Purelax] 17 gram/dose powder 17 g PO DAILY Qty: 850 0RF oxycodone 10 mg tablet 10 - 20 mg PO Q4H PRN (Reason: Pain, Moderate) Rx Instructions: TAKE 1 TO 2 TABLETS BY MOUTH EVERY 4 TO 6 HOURS NEEDED FOR PAIN max 6 PER day Discharge Orders: Discharge ED (Routine); Ordered 08/31/24 Ordered By: Sagrario Barrios Referrals: Lynda Lopez MD [Primary Care Provider, [facility]] Discharge Diet: Full LIquid Discharge Activity: Resume usual activity Patient Instructions: Hypokalemia (ED), Hypomagnesemia (ED), Opioid Safety, Pain Management Activity Restrictions/Additional Instructions: Full liquid diet until abdomen pain subsides. You may eat a banana daily Follow-up with your doctor?call for appointment on Sunday to repeat your labs As discussed, decrease your oxycodone intake to 1/2-1 daily to avoid further issues. Continue your magnesium as prescribed before As discussed, you need a bowel regimen of milk of magnesia, Senokot, and MiraLAX daily. Please further discuss with your primary care physician. Return to ED for worsening or ongoing symptoms. Print Language: Croatian Coding Level of Care Code ED Transfer And [employer]umph[employer] Operator Chief for Gemma Church
[2024-08-30 20:31] VITALS: BP 181/104; PULSE 70; O2SAT 96
[2024-08-30 20:42] LABS: Basophils % 0.2 %; Eosinophils # 0.1 10^3/uL (0.0-0.8); Eosinophils % 2.3 %; Hematocrit 35.3 % (36-47); Lymphocytes # 1.5 10^3/uL (0.8-4.8); Lymphocytes % 24.7 %; Mean Corpuscular HGB Conc 32.6 g/dL (30-55); Mean Corpuscular Hemoglobin 28.3 pg (27-33); Mean Corpuscular Volume 86.7 fl (85-98); Mean Platelet Volume 9.6 fL (7.4-10.4); Monocytes # 0.7 10^3/uL (0.2-0.9); Monocytes % 11.1 %; Neutrophils # 3.74 10^3/uL (1.8-7.7); Neutrophils % 61.2 %; Nucleated Red Blood Cells % 0 %; Platelet Count 321 10^3/cmm (157-399); Red Blood Count 4.07 10^6/uL (3.85-5.65); Red Cell Distribution Width 15.9 % (12.1-15.1); White Blood Count 6.11 10^3/uL (3.29-11.43)
[2024-08-30 21:00] LABS: Lactic Sepsis W/Reflex 1.2 mmol/L (0.5-2.2)
[2024-08-30 21:03] LABS: Alanine Aminotransferase 6 U/L (0-33); Albumin Level 3.6 g/dL (3.5-5.2); Alkaline Phosphatase 68 U/L (35-105); Anion Gap 15.6 (5-19); Aspartate Amino Transferase 11 U/L (0-32); Blood Urea Nitrogen 12 mg/dL (8-23); Carbon Dioxide 23 mmol/L (22-29); Chloride 105 mmol/L (98-107); Creatinine Clr Calc Pharmacy 33.7987; Globulin 2.2 g/dL (1.3-4.6); Glucose 105 mg/dL (65-115); Osmolality Calculated 292 mOsm/kg (285-295); Sodium 141 mmol/L (136-145); Total Bilirubin 0.5 mg/dL (0.15-1.2); Total Protein 5.8 g/dL (6.6-8.7)
[2024-08-30 21:05] LABS: Potassium 2.6 mmol/L (3.5-5.1)
[2024-08-30 21:30] LABS: Magnesium 1.1 mg/dL (1.7-2.3)
[2024-08-30] MEDS: iohexol 350 mg/mL 500 mL Btl (per mL) PO (21:59)
[2024-08-30] MEDS: lidocaine 1% 10 ML INJ 5 ML IV (22:38)
[2024-08-30] MEDS: potassium chloride premix 100 ML 25 MEQ IV (22:38)
[2024-08-30 22:40] VITALS: BP 194/109; PULSE 81; RESP 16; O2SAT 97
[2024-08-31] VITALS: PULSE 84; RESP 14; O2SAT 96
[2024-08-31] MEDS: sodium chloride 0.45% 1,000 ML 500 ML IV (00:22)
[2024-08-31] MEDS: magnesium hydroxide 30 mL UDC PO (00:22)
[2024-08-31] MEDS: magnesium sulfate premix 4 GM/100 ML PREMIX IV (00:22)
[2024-08-31 03:57] VITALS: BP 189/95; PULSE 70; RESP 16; O2SAT 97
== END 2024-08-31 04:00 | disposition home or self-care (01) ==
PROVIDERS: Emergency Provider Physician Assistant; PCP Family Medicine
DX: K59.00 Constipation, unspecified (principal); E87.6 Hypokalemia; E83.42 Hypomagnesemia; Z87.891 Personal history of nicotine dependence; Z95.0 Presence of cardiac pacemaker; I25.118 Atherosclerotic heart disease of native coronary artery with other forms of angina pectoris; E78.5 Hyperlipidemia, unspecified; I10 Essential (primary) hypertension
CPT/HCPCS: 36415; 74176; 80053; 83605; 83735; 85025; 96374; 96375; 99285; J3475; J3480; J9999

== ENCOUNTER 2024-09-02 14:31 | Emergency (ER) | payer MEDICARE, SELFPAY ==
[2024-09-02 14:34] VITALS: BP 169/92; PULSE 84; RESP 17; TEMP 36.7; O2SAT 98; BMI 19.5
--- NOTE | 2024-09-02 15:07 | XRR_ITS ---
PROCEDURE INFORMATION: Exam: XR Abdomen Exam date and time: 09/02/2024 3:15 PM Age: 78 years old Clinical indication: Abdominal pain; Other: Constipation; Additional info: Abd pain TECHNIQUE: Imaging protocol: Radiologic exam of the abdomen. Views: Frontal supine view of the abdomen. 1 View. COMPARISON: CT abdomen pelvis con [id number] 08/30/2024 9:57 PM FINDINGS: Gastrointestinal tract: Normal. No bowel dilation. Bones/joints: Moderate levo rotary scoliosis of the thoracolumbar spine. XR/XR KUB portable [id number] IMPRESSION: No evidence of acute abdominal process.
[2024-09-02 15:17] VITALS: BP 177/78; PULSE 76; RESP 16; O2SAT 99
--- NOTE | 2024-09-02 15:21 | ED_ITS ---
HPI - Abdominal Pain 2 General: Chief Complaint: Abdominal Pain Stated Complaint: Abd Pain Time Seen by Provider: 09/02/24 15:07 History of Present Illness: 78-year-old female who presents to the e mergency room with complaints of abdominal pain and constipation states not a bowel movement for couple of days. Patient has had multiple visits to the emergency room for that she has been given MiraLAX states she is still using it is also given lactulose she has not used it at all. She takes hydrocodone for pain. She has not tried anything at home in terms of laxatives. She has not seen her primary care doctor in the last several weeks. Associated Symptoms: Reports constipation; Denies chills, dysuria and fever(s) Related Data Home Medications ?Medication ?Instructions ?Recorded ?Confirmed oxycodone 10 mg tablet 10 - 20 mg PO Q4H PRN Pain, 11/19/23 08/24/24 Moderate amiodarone 200 mg tablet 200 mg PO DAILY 07/03/2404/19 atorvastatin 40 mg tablet 40 mg PO DAILY 08/06/2404/19 pantoprazole 40 mg tablet,delayed 40 mg PO BID 5 08/24/24 release ropinirole 0.5 mg tablet 0.5 mg PO BEDTIME 08/06/24 0 08/24/24 Previous Rx's ?Medication ?Instructions ?Recorded Monet Lam Toe Shelter Director #1 ea 10/03/22 cyanocobalamin (vitamin B-12) 1,000 mcg PO DAILY #90 t abs 05/16/24 1,000 mcg tablet (Vitamin B-12) levothyroxine 75 mcg tablet 75 mcg PO QAM #90 tabs amlodipine 10 mg tablet 10 mg PO DAILY #90 tabs 05/25 aripiprazole 5 mg tablet 5 mg PO .qpm #30 tabs hydrocodone 5 mg-acetaminophen 325 1 tab PO Q6H PRN pa in #14 tabs 08/06/24 mg tablet bupropion HCl 150 mg 24 hr tablet, 150 mg PO QAM #30 t abs 08/12/24 extended release (Wellbutrin XL) lisinopril 20 mg tablet 20 mg PO DAILY #30 tabs 07/25 ferrous gluconate 324 mg (38 mg See Rx Instructions .R oute 08/22/24 iron) tablet .COMPLEX #180 tabs sertraline 25 mg tablet See Rx Instructions .Route 0 08/22/24 .COMPLEX #100 tabs polyethylene glycol 3350 17 17 g PO DAILY #850 grams 0 08/24/24 gram/dose oral powder (Purelax) cefdinir 300 mg capsule 300 mg PO BID #14 caps 09/02 lactulose 10 gram/15 mL oral 30 ml PO Q2H PRN constipa tion 72 09/02/24 solution (Generlac) hours #1,080 mL Allergies Allergy/AdvReac Type Severity Reaction Status Date / Time No Known Allergies Allergy Verified 08/26/24 09:41 Review of Systems 2 Const: Denies: fever(s) or chills Card: Denies: chest pain Resp: Denies: dyspnea GI: Reports: abdominal pain and constipation : Denies: dysuria, urinary frequency or urinary urgency Musc: Denies: neck pain or back pain Skin/Breast: Denies: rash PFSH ED 2 PFSH: Medical History Ventricular tachycardia (paroxysmal) Polymorphic ventricular tachycardia Pacemaker Long-term current use of opiate analgesic Goes to [facility] Depression, major Mitral regurgitation Aortic valve stenosis Mitral regurgitation Exocrine pancreatic insufficiency Renal insufficiency Hiatal hernia with GERD Hypothyroidism Enrolled in chronic care management Osteoporosis Atherosclerotic heart disease of [place] coronary artery with other forms of angina pectoris Abnormal cardiovascular stress test NSTEMI (non-ST elevated myocardial infarction) Hyperlipidemia Hypertension Past heart attack Pain management contract signed Restless legs syndrome Fibromyalgia Chronic low back pain Dr. Benavidez Rxes pain meds Surgical History History of implantable cardiac defibrillator (ICD) [facility] 04/19--pacemaker/defibrillator Hx of cardiac catheterization 1.19.25 OZH--no obstructive disease Hx of esophagogastroduodenoscopy 3.28.24 large hiatal hernia; gastritis Hx of colonoscopy 10.4.21 normal anastomosis S/P foot surgery History of mandibular surgery R jaw--has titanium plate; done for tumor--benign History of bowel resection benign growth H/O ileostomy Hx of appendectomy (~1973) Hx of hysterectomy (~1973) still has ovaries; had hyst due to bleeding; no cancer History of reversal of ileostomy Hx of tubal ligation Hx of foot surgery (~11/2013) RIGHT FOOT Family History Brother , BONE METS Cancer COLON CANCER Mother Heart disease Family history of thyroid problem Grandmother Heart disease Father Hyperlipidemia Bone cancer Social History Smoking and tobacco/nicotine status: former use of tobacco/nicotine Quit status (tobacco/nicotine): has quit using Year quit tobacco: quit 1989 Second hand smoke exposure: No Alcohol intake: never Substance/Drug Use: never Lives independently: Yes Household members: none Marital status: / Number of children: 3 Highest education level completed: Some College, No Degree Current occupational status: retired 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 Physical Exam 2 Const: GENERAL APPEARANCE: cooperative ORIENTATION/CONSCIOUSNESS: Yes awake, Yes oriented to person, Yes oriented to place and Yes oriented to time HENMT: COMMON NORMALS: normocephalic, atraumatic and hearing grossly normal bilaterally HEAD & SCALP: normocephalic and atraumatic Resp: COMMON NORMALS: normal respiratory effort, No retractions, No use of accessory muscles and clear to auscultation bilaterally AUSCULTATION: clear to auscultation bilaterally Cardio: COMMON NORMALS: regular rate, regular rhythm and No murmurs present (Cardio) RATE: regular rate RHYTHM: regular rhythm GI: COMMON NORMALS: No hepatosplenomegaly present AUSCULTATION: Yes normoactive bowel sounds PALPATION: Yes Tenderness to palpation present (GI) (General nonspecific), No Guarding due to palpation present (GI) and Yes No hepatosplenomegaly present Extremity: COMMON NORMALS: normal to inspection, capillary refill normal, no clubbing, cyanosis or edema, no calf tenderness and no pedal edema Neuro: SENSORIUM/ORIENTATION: Yes oriented to person, Yes oriented to place and Yes oriented to time Skin: COMMON NORMALS: no rashes or lesions noted GENERAL SKIN EXAM: no rashes or lesions noted Course 2 Vital Signs: Vital signs: Vital Signs Temperature 98.1 F 09/02/24 14:34 Pulse Rate 70 09/02/24 16:23 Respiratory Rate 16 09/02/24 16:23 Blood Pressure 185/95 09/02/24 16:23 Pulse Oximetry 97 09/02/24 16:23 Oxygen Delivery Me thod Room Air 09/02/24 14:34 MDM - Abdominal Pain Medical Decision Making Patient is complaining of constipation lower abdominal pain noted significant monitor retained stool in the colon does have a cystitis started on oral antibiotics. Lactulose for relief of constipation encourage patient to continue MiraLAX for preventative follow-up with primary care Medical Records I reviewed the patient's medical records. Lab Data I reviewed the patient's lab results. 09/02/24 15:36 09/02/24 15:36 Labs/Radiology: Radiology Impressions KUB X-Ray 09/02/24 15:07 IMPRESSION: No evidence of acute abdominal process. Laboratory Results WBC 7.86 10^3/uL (3.29-11.43) 09/02/24 15:36 RBC 4.39 10^6/uL (3.85-5.65) 09/02/24 15:36 Hgb 12.10 g/dL (11.27-16.99) 09/02/24 15:36 Hct 37.9 % (36-47) 09/02/24 15:36 MCV 86.3 fl (85-98) 09/02/24 15:36 MCH 27.6 pg (27-33) 09/02/24 15:36 MCHC 31.9 g/dL (30-55) 09/02/24 15:36 RDW 16.1 % (12.1-15.1) H 09/02/24 15:36 Plt Count 327 10^3/cmm (157-399) 09/02/24 15:36 MPV 9.5 fL (7.4-10.4) 09/02/24 15:36 Neut % (Auto) 66.2 % 09/02/24 15:36 Lymph % (Auto) 19.6 % 09/02/24 15:36 [place] % (Auto) 9.2 % 09/02/24 15:36 Eos % (Auto) 4.3 % 09/02/24 15:36 Baso % (Auto) 0.3 % 09/02/24 15:36 Neut # (Auto) 5.21 10^3/uL (1.8-7.7) 09/02/24 15:36 Lymph # (Auto) 1.5 10^3/uL (0.8-4.8) 09/02/24 15:36 [place] # (Auto) 0.7 10^3/uL (0.2-0.9) 09/02/24 15:36 Eos # (Auto) 0.3 10^3/uL (0.0-0.8) 09/02/24 15:36 Baso # (Auto) 0.0 10^3/uL (0.0-0.1) 09/02/24 15:36 Nucleated RBC % (auto) 0 % 09/02/24 15:36 Nucleated RBCs # 0.0 /100WBC 09/02/24 15:36 Sodium 139 mmol/L (136-145) 09/02/24 15:36 Potassium 3.0 mmol/L (3.5-5.1) L 09/02/24 15:36 Chloride 103 mmol/L (98-107) 09/02/24 15:36 Carbon Dioxide 23 mmol/L (22-29) 09/02/24 15:36 Anion Gap 16.0 (5-19) 09/02/24 15:36 BUN 13 mg/dL (8-23) 09/02/24 15:36 Creatinine 1.1 mg/dL (0.5-0.9) H 09/02/24 15:36 GFR Calculation Not Reportable 09/02/24 15:36 Glucose 96 mg/dL (65-115) 09/02/24 15:36 Calculated Osmolality 288 mOsm/kg (285-295) 09/02/24 15:36 Calcium 8.9 mg/dL (8.5-10.5) 09/02/24 15:36 Total Bilirubin 0.9 mg/dL (0.15-1.2) 09/02/24 15:36 AST 15 U/L (0-32) 09/02/24 15:36 ALT 8 U/L (0-33) 09/02/24 15:36 Alkaline Phosphatase 75 U/L (35-105) 09/02/24 15:36 Total Protein 5.9 g/dL (6.6-8.7) L 09/02/24 15:36 Albumin 3.7 g/dL (3.5-5.2) 09/02/24 15:36 Globulin 2.2 g/dL (1.3-4.6) 09/02/24 15:36 Urine Color Yellow (Yellow) 09/02/24 15:34 Urine Appearance Cloudy (CLEAR) A 09/02/24 15:34 Urine pH 6.0 (5-7) 09/02/24 15:34 Ur Specific [place] 1.011 (1.005-1.030) 09/02/24 15:34 Urine Protein Negative (Negative) 09/02/24 15:34 Urine Glucose (UA) Negative (Normal) 09/02/24 15:34 Urine Ketones Negative (Negative) 09/02/24 15:34 Urine Blood Trace (Negative) A 09/02/24 15:34 Urine Nitrate Positive (Negative) A 09/02/24 15:34 Urine Bilirubin Negative (Negative) 09/02/24 15:34 Urine Urobilinogen 0.2 mg/dL (Negative) 09/02/24 15:34 Ur Leukocyte Esterase 3+ (Negative) A 09/02/24 15:34 Urine RBC 0-2 /hpf (0-2) 09/02/24 15:34 Urine WBC >100 /hpf (0-5) H 09/02/24 15:34 Ur Squamous Epith Cells 0-5 /hpf (0-5) 09/02/24 15:34 Amorphous Sediment Not Reportable 09/02/24 15:34 Urine Bacteria 4+ /hpf (NONE) H 09/02/24 15:34 Hyaline Casts 0.40 /lpf 09/02/24 15:34 All radiology interpretation(s) finalized by discharge Discharge Plan Discharge Patient Disposition: Home Clinical Impression: Constipation, Cystitis Condition: Stable Prescriptions: New cefdinir 300 mg capsule 300 mg PO BID Qty: 14 0RF lactulose [Generlac] 10 gram/15 mL solution 30 ml PO Q2H PRN (Reason: constipation) 3 Days Qty: 1080 0RF Rx Instructions: until desired laxative effect No Action amiodarone 200 mg tablet 200 mg PO DAILY (DME) Monet Lam Toe Shelter Director See Rx Instructions .Route .MEDSUPPLY Qty: 1 0RF Rx Instructions: As directed by HOME cyanocobalamin (vitamin B-12) [Vitamin B-12] 1,000 mcg tablet 1,000 mcg PO DAILY Qty: 90 3RF levothyroxine 75 mcg tablet 75 mcg PO QAM Qty: 90 0RF amlodipine 10 mg tablet 10 mg PO DAILY Qty: 90 1RF aripiprazole 5 mg tablet 5 mg PO .qpm Qty: 30 2RF bupropion HCl [Wellbutrin XL] 150 mg tablet extended release 24 hr 150 mg PO QAM Qty: 30 1RF lisinopril 20 mg tablet 20 mg PO DAILY Qty: 30 1RF ferrous gluconate 324 mg (38 mg iron) tablet See Rx Instructions .ROUTE .COMPLEX Qty: 180 0RF Dose Instruction: TAKE ONE TABLET BY MOUTH TWICE DAILY Rx Instructions: TAKE ONE TABLET BY MOUTH TWICE DAILY sertraline 25 mg tablet See Rx Instructions .ROUTE .COMPLEX Qty: 100 0RF Dose Instruction: TAKE ONE TABLET BY MOUTH EVERY DAY Rx Instructions: TAKE ONE TABLET BY MOUTH EVERY DAY hydrocodone-acetaminophen 5-325 mg tablet 1 tab PO Q6H PRN (Reason: pain) Qty: 14 0RF atorvastatin 40 mg tablet 40 mg PO DAILY ropinirole 0.5 mg tablet 0.5 mg PO BEDTIME pantoprazole 40 mg tablet,delayed release (DR/EC) 40 mg PO BID polyethylene glycol 3350 [Purelax] 17 gram/dose powder 17 g PO DAILY Qty: 850 0RF oxycodone 10 mg tablet 10 - 20 mg PO Q4H PRN (Reason: Pain, Moderate) Rx Instructions: TAKE 1 TO 2 TABLETS BY MOUTH EVERY 4 TO 6 HOURS NEEDED FOR PAIN max 6 PER day Discharge Orders: Discharge ED (Routine); Ordered 09/02/24 Ordered By: Art Desai Referrals: Lynda Lopez MD [Primary Care Provider, Family Practice] Discharge Diet: Usual diet Discharge Activity: Increase activity as tolerated Patient Instructions: Opioid Safety, Pain Management Activity Restrictions/Additional Instructions: Thank you for choosing [facility] for your healthcare needs today. It is very important that you follow up as instructed or that you return to the Emergency Department should you have concerns or if your condition changes or worsens in any way. You were seen in the emergency room with a complaint of constipation. Recommend use lactulose to resolve the constipation continue your MiraLAX. You are also noted to have a bladder infection recommend you start on oral antibiotics 1 pill twice a day for a week Print Language: Tristanian Coding Level of Care Code ED Word Processor Operator for Gemma Church
[2024-09-02 15:40] VITALS: BP 189/111; PULSE 94; RESP 16; O2SAT 99
[2024-09-02 15:46] LABS: Basophils % 0.3 %; Eosinophils # 0.3 10^3/uL (0.0-0.8); Eosinophils % 4.3 %; Hematocrit 37.9 % (36-47); Lymphocytes # 1.5 10^3/uL (0.8-4.8); Lymphocytes % 19.6 %; Mean Corpuscular HGB Conc 31.9 g/dL (30-55); Mean Corpuscular Hemoglobin 27.6 pg (27-33); Mean Corpuscular Volume 86.3 fl (85-98); Mean Platelet Volume 9.5 fL (7.4-10.4); Monocytes # 0.7 10^3/uL (0.2-0.9); Monocytes % 9.2 %; Neutrophils # 5.21 10^3/uL (1.8-7.7); Neutrophils % 66.2 %; Nucleated Red Blood Cells % 0 %; Platelet Count 327 10^3/cmm (157-399); Red Blood Count 4.39 10^6/uL (3.85-5.65); Red Cell Distribution Width 16.1 % (12.1-15.1); White Blood Count 7.86 10^3/uL (3.29-11.43)
[2024-09-02 15:51] LABS: Bilirubin Urine Negative (Negative); Blood Urine Trace (Negative); Glucose Urine UA Negative (Normal); Ketones Urine Negative (Negative); Leukocyte Esterase Urine 3+ (Negative); Nitrate Urine Positive (Negative); Protein Urine Negative (Negative); Specific Gravity, Urine 1.011 (1.005-1.030); Urine Appearance Cloudy (CLEAR); Urine Color Yellow (Yellow); Urobilinogen Urine 0.2 mg/dL (Negative)
[2024-09-02 15:54] LABS: Add Urine Microscopic? YES; Bacteria Urine 4+ /hpf; RBC Urine 0-2 /hpf (0-2); Squamous Epithelial Cell Urine 0-5 /hpf (0-5); WBC Urine >100 /hpf (0-5)
[2024-09-02 15:58] LABS: Alanine Aminotransferase 8 U/L (0-33); Albumin Level 3.7 g/dL (3.5-5.2); Alkaline Phosphatase 75 U/L (35-105); Aspartate Amino Transferase 15 U/L (0-32); Blood Urea Nitrogen 13 mg/dL (8-23); Calcium 8.9 mg/dL (8.5-10.5); Carbon Dioxide 23 mmol/L (22-29); Chloride 103 mmol/L (98-107); Creatinine Clr Calc Pharmacy 30.7261; Globulin 2.2 g/dL (1.3-4.6); Glucose 96 mg/dL (65-115); Osmolality Calculated 288 mOsm/kg (285-295); Sodium 139 mmol/L (136-145); Total Bilirubin 0.9 mg/dL (0.15-1.2); Total Protein 5.9 g/dL (6.6-8.7)
[2024-09-02 16:04] LABS: Add Urine Culture? Yes
[2024-09-02 16:11] VITALS: BP 189/95; PULSE 74; RESP 16; O2SAT 98
[2024-09-02 16:23] VITALS: BP 185/95; PULSE 70; RESP 16; O2SAT 97
== END 2024-09-02 16:31 | disposition home or self-care (01) ==
PROVIDERS: Emergency Provider Family Medicine; PCP Family Medicine
DX: K59.00 Constipation, unspecified (principal); N30.90 Cystitis, unspecified without hematuria; Z87.891 Personal history of nicotine dependence; Z95.0 Presence of cardiac pacemaker; I25.118 Atherosclerotic heart disease of native coronary artery with other forms of angina pectoris; E78.5 Hyperlipidemia, unspecified; I10 Essential (primary) hypertension
CPT/HCPCS: 36415; 74018; 80053; 81001; 85025; 87077; 87086; 87186; 99284

== ENCOUNTER 2024-09-19 14:32 | Emergency (ER) | payer MEDICARE, SELFPAY ==
--- OUTSIDE RECORDS SUMMARY | 2023-05-03 06:00 | XMS_ITS ---
Author Organization [facility] Address [address] [place] [address] Care Team Providers Care Buffet Server Name Role Phone Tito Cartagena Primary Care Provider REASON FOR VISIT 3 month f/u Encounters Encounter [facility] Date [facility] [address] [place] [address] 05/03/2023 Tito Cartagena Plan Of Treatment No Information Progress Notes * Ivan LARADOB:1945 (78 yo F)Acc No.[id number]:05/03/2023 Progress Notes Patient: Ivan DEJESUS Provider: Francie Cartagena MD :1945 A ge:77 Y S ex:Female Date:05/03/2023 Address:[address] [place], [place] [id number] Subjective: * Chief Complaints: * 1 . 3 month f/u. * Medical History: Objective: * Vitals: Assessment: Plan: * Treatment: Forms: * Billing Information: * Visit Code: * Procedure Codes: Care Plan Details* * Electronic signature of Jose R Cartagena MD on 09/19/2024 at 02:40 PM CDT Sign off status: Pending * Provider: Francie Cartagena MD Date: 0 05/03/2023 Generated for Abby ng/Faxing/eTransmitting on: 0 09/19/2024 02:40 PM CDT
--- OUTSIDE RECORDS SUMMARY | 2024-01-19 04:00 | XMS_ITS ---
Author Organization [facility] Address [address] [place] [address] Care Team Providers Care Summer Clerk Name Role Phone Tito Cartagena Primary Care Provider [phone] Migration, Provider Unavailable Unavailable REASON FOR VISIT [facility] Encounters Encounter Location Date Provider Diagnosis Migrated_Facility 0 0 01/19/2024 Provider Migration Plan Of Treatment No Information Progress Notes * Ivan LARADOB:1945 (78 yo F)Acc No.[id number]:01/19/2024 Patient: Ruchi HOBSONDEJAKalLove :1945 A ge:78 Y S ex:Female Address:[address] [place], [address] Subjective: * Chief Complaints: * E MR-Jignesh * Medical History: * Surgical History: * Hospitalization/Major Diagno stic Procedure: * Medications: Objective: * Vitals: * Physical Examination: Assessment: Plan: * Treatment: * Procedure Codes: * * Date:
--- OUTSIDE RECORDS SUMMARY | 2024-01-20 04:00 | XMS_ITS ---
Author Organization [facility] Address [address] [place] [address] Care Team Providers Care Client Solutions Specialist Name Role Phone Tito Cartagena Primary Care Provider [phone] Migration, Provider Unavailable Unavailable Allergies Allergen (clinical [...] Notes * Ivan LARADOB:1945 (78 yo F)Acc No.[id number]:01/20/2024 Patient: Ivan DEJESUS :1945 A ge:78 Y S ex:Female Address:[address] [place] [address], [address] Subjective: * Chief Complaints: * E MR-Jignesh * Medical History: * Surgical History: * Hospitalization/Major Diagno stic Procedure: * Medications: * Allergies: S ulfa Antibiotics: Allergy - Onset Date 2003-05-27 Objective: * Vitals: * Physical Examination: Assessment: Plan: * Treatment: * Procedure Codes: * * Date:
--- OUTSIDE RECORDS SUMMARY | 2024-09-19 14:39 | XMS_ITS | Encounter Summary ---
Author Organization [facility] Address [address] [place] [address] Care Team Providers Care Senior Information Security Architect Name Role Phone Unavailable Primary Care Provider Unavailabl e Reason for Visit * Reason Onset Date Comments Follow Up 07/08/2024 Encounter Details Date Type Department Care Team (Late st Contact Info) Description 07/08/2024 Telephone [facility] [address] [facility] [address] [place] [id number] Cristel Eagle MD [address] [facility] [address] [place] [id number] Follow Up Social History Tobacco Use Types Packs/Day Years Used Date Smoking Tobacco: Never Smokeless Tobacco: Never Alcohol Use Standard Drinks/Week Comments Never 0 (1 standard drink = 0.6 oz pur e alcohol) Feeling Safe Answer Date Recorded Are you in a relationship wi th someone who hurts you emotionally and/or physically? 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 Will request she contact [employer] [facility] at and confirm she'll be at scheduled in-person visit 07/22. documented in this encounter Plan of Treatment Not on file documented as of this encounter Visit Diagnoses Not on filedocumented in this encounter
--- OUTSIDE RECORDS SUMMARY | 2024-09-19 14:39 | XMS_ITS | Continuity of Care Document ---
Author Organization [employer] ([facility]) Address [address] [place] [address] Insurance Providers Payer Plan Claims Address Claims Phone Policy Number Group Number Relation Employer Guarantor Name Guarantor Guarantor Address Guarantor Phone JENNIFERMorgan Tessa [employer] [address] [address], [place] [address] tel:[phone] [id number] Self Ivan Peguero [address] [place] [id number] [employer] Medic are Advan tage - PPO [place] [address] [address], [place] [address] tel:[phone] Self Ivan Peguero [address] [place] [id number] Human a Comme rcial - Out of [employer] [place] [address] [address], [place] [id number] tel:[phone] Self Ivan Peguero [address] [place] [id number] Problems Condition ICD9 code ICD10 code SNOMED code Start Date End Date S tatus Pneumonitis due to inhalation of food and vomit J69.0 11/23/2023 Active Unspecified foreign body in respiratory tract, part unspecified causing other injury, subsequent encounter T17.908D 11/23/2023 Active Effusion, right knee M25.461 11/23/2023 Active Difficulty in walking, not elsewhere classified R26.2 11/24/2023 Active Muscle weakness (generalized) M62.81 11/26/2023 Active Rhabdomyolysis M62.82 11/23/2023 Active History of falling Z91.81 11/23/2023 Ac tive Hypoxemia R09.02 11/23/2023 Active Bilateral primary osteoarthritis of knee M17.0 11/23/2023 Ac tive Other chronic pain G89.29 11/23/2023 Ac tive Atherosclerotic heart disease of [place] coronary artery with other forms of angina pectoris I25.118 11/23/2023 Active [facility]FP (current) use of aspirin Z79.82 11/23/2023 Active Essential (primary) hypertension I10 11/23/2023 Active Personal history of nicotine dependence Z87.891 11/23/2023 Activ e Fibromyalgia M79.7 11/23/2023 Active Restless legs syndrome G25.81 11/23/2023 Active Age-related osteoporosis without current pathological fracture M81.0 11/23/2023 Act heather Hyperlipidemia, unspecified E78.5 11/23/2023 Active Hypothyroidism, unspecified E03.9 11/23/2023 Active Hypokalemia E87.6 11/23/2023 Active Results Test Value / Unit Interpretation Reference Ran ge Tuberculosis reaction wheal[ 94924-1] Tuberculosis reaction wheal [58435-5] 0 mm NEG Allergies, adverse reactions, alerts No known allergies and adverse reactions Immunizations Vaccine Route Date Status COVID-19 Vaccine Unassigned Route of Administration Completed COVID-19 Vaccine Unassigned Route of Administration Completed COVID-19 Vaccine Unassigned Route of Administration Completed COVID-19 Vaccine Unassigned Route of Administration Completed Medications Medication Instructions Route Dosage Frequency Start Date Stop Date Indications Status albuterol sulfate 90 mcg/actuation HFA aerosol inhaler (albuterol sulfate) 2 puffs, inhalation, Every 6 Hours - PRN, Clinical indication: Dyspnea inhalation 1.0 6.0 h 11/28 Active amlodipine 10 mg tablet (amlodipine) 1, oral, Once A Day oral 1.0 1.0 d 11/28 Active amoxicillin-pot clavulanate 875-125 mg tablet (amoxicillin-po t clavulanate) 1, oral, Twice A Day oral 1.0 12.0 h 11/28 Active aspirin 81 mg tablet,delayed release (DR/EC) (aspirin) 1, oral, At Bedtime oral 1.0 11/28 Active atorvastatin 40 mg tablet (atorvastatin) 1, oral, At Bedtime oral 1.0 11/28 Active Calcium 600 with Vitamin D3 (calcium carbonate-vitam in d3) 600 mg-10 mcg (400 unit) tablet,chewable (Calcium 600 with Vitamin D3 (calcium carbonate-vitam in d3)) 1, oral, Once A Day oral 1.0 1.0 d 11/28 Active clonidine HCl 0.1 mg tablet (clonidine HCl) 1, oral, Twice A Day oral 1.0 12.0 h 11/28 Active cyanocobalamin (vitamin B-12) 100 mcg tablet (cyanocobalamin (vitamin B-12)) 1, oral, Once A Day oral 1.0 1.0 d 11/28 Active diclofenac sodium 1 % gel (diclofenac sodium) 2 gram, topical, Four Times A Day - PRN, Clinical Indication: pain topical 1.0 6.0 h 11/28 Active Dulcolax (bisacodyl) (bisacodyl) 5 mg tablet,delayed release (DR/EC) (Dulcolax (bisacodyl) (bisacodyl)) 2 tabs/10mg, oral, Once A Day - PRN, Give if no results from [facility] [place] oral 1.0 1.0 d 11/28 Active Dulcolax (bisacodyl) (bisacodyl) 10 mg suppository (Dulcolax (bisacodyl) (bisacodyl)) 1 suppository, rectal, Once A Day - PRN, Give rectally if can't take p/o, if no results from [facility] [place] rectal 1.0 1.0 d 11/28 Active ferrous gluconate 324 mg (37.5 mg iron) tablet (ferrous gluconate) 1, oral, Twice A Day oral 1.0 12.0 h 11/28 Active Fleet Enema (sodium phosphates) 19-7 gram/118 mL enema (Fleet Enema (sodium phosphates)) 1 application, rectal, Once A Day, Give fleets if no results from [facility] and Dulcolax rectal 1.0 1.0 d 11/25 Active Fleet Enema (sodium phosphates) 19-7 gram/118 mL enema (Fleet Enema (sodium phosphates)) 1 application, rectal, Once A Day - PRN, Give fleets if no results from [facility] and Dulcolax rectal 1.0 1.0 d 11/28 Active levothyroxine 75 mcg capsule (levothyroxine) 1, oral, Once A Day oral 1.0 1.0 d 11/28 Active lisinopril 40 mg tablet (lisinopril) 1, oral, Twice A Day oral 1.0 12.0 h 11/28 Active Lyrica (pregabalin) 225 mg capsule (Lyrica (pregabalin)) 1, oral, At Bedtime oral 1.0 11/28 Active Milk of Magnesia (magnesium hydroxide) 400 mg/5 mL suspension (Milk of Magnesia (magnesium hydroxide)) 30 ml, oral, Every 72 Hours - PRN, if no BM in 3 daysDO NOT GIVE TO RENAL PATIENTS--GO TO [facility] oral 1.0 72.0 h 11/28 Active mirtazapine 30 mg tablet (mirtazapine) 1, oral, At Bedtime oral 1.0 11/28 Active ondansetron 4 mg tablet,disinteg rating (ondansetron) 1, oral, As Needed oral 1.0 1.0 d 11/24 Active ondansetron 4 mg tablet,disinteg rating (ondansetron) 1, oral, As Needed, Q 4 hours nausea oral 1.0 1.0 d 11/28 Active oxycodone 10 mg tablet (oxycodone) 1-2 tab, oral, Every 4 Hours - PRN, Clinical Indication: pain oral 1.0 4.0 h 11/28 Active potassium chloride 20 mEq tablet,ER particles/cryst als (potassium chloride) 1, oral, Once A Day oral 1.0 1.0 d 11/28 Active prednisone 20 mg tablet (prednisone) 1, oral, Once A Day oral 1.0 1.0 d 11/22 Active prednisone 20 mg tablet (prednisone) 2, oral, Once A Day oral 1.0 1.0 d 11/28 Active ropinirole 0.5 mg tablet (ropinirole) 1, oral, At Bedtime oral 1.0 11/28 Active Symbicort (budesonide-for moterol) 160-4.5 mcg/actuation HFA aerosol inhaler (Symbicort (budesonide-for moterol)) 2 puffs, inhalation, Twice A Day inhalation 1.0 12.0 h 11/28 Active Tab-A-Xavi Multivitamin w-iron (multivitamin-i faisal-folic acid) 18-400 mg-mcg tablet (Tab-A-Xavi Multivitamin w-iron (multivitamin-i faisal-folic acid)) 1, oral, Once A Day oral 1.0 1.0 d 11/28 Active triamterene-hyd rochlorothiazid 37.5-25 mg tablet (triamterene-hy drochlorothiazi d) 1, oral, Once A Day oral 1.0 1.0 d 11/28 Active Tylenol (acetaminophen) 325 mg tablet (Tylenol (acetaminophen) ) 2 tabs/650mg, oral, Every 6 Hours - PRN, as needed for PRN pain/increase d tempMay give rectally if necessary oral 1.0 6.0 h 11/28 Active Zenpep (lipase-proteas e-amylase) 40,000-126,000- 168,000 unit capsule,delayed release(DR/EC) (Zenpep (lipase-proteas e-amylase)) 2, oral, With Meals oral 1.0 11/28 Active Vital Signs Date Vital Result Comment 11/27/2023 10:59 AM Temperature 97.1 [degF] Oxygen Saturation 94 % Respiratory Rate 19 /min Heart Rate 61 /min 11/29/2023 07:58 AM Temperature 97 [degF] Oxygen Saturation 94 % Respiratory Rate 18 /min Heart Rate 52 /min Blood Pressure Systolic 143 mm[Hg] Blood Pressure Diastolic 69 mm[Hg] 11/26/2023 08:25 PM Blood Pressure Systolic 157 mm[Hg] Blood Pressure Diastolic 96 mm[Hg] 11/28/2023 03:37 PM Body Weight 125.4 [lb_av] Body Mass Index 20.87 kg/m2 11/28/2023 07:54 AM Body Weight 124.8 [lb_av] Body Mass Index 20.77 kg/m2 11/28/2023 06:37 PM Blood Pressure Systolic 132 mm[Hg] Blood Pressure Diastolic 79 mm[Hg] 11/27/2023 10:58 AM Blood Pressure Systolic 105 mm[Hg] Blood Pressure Diastolic 72 mm[Hg] 11/26/2023 09:48 PM Temperature 97.5 [degF] Oxygen Saturation 91 % Respiratory Rate 23 /min Heart Rate 111 /min Blood Pressure Systolic 121 mm[Hg] Blood Pressure Diastolic 78 mm[Hg] 11/28/2023 07:53 AM Temperature 97.2 [degF] Oxygen Saturation 97 % Respiratory Rate 16 /min Heart Rate 56 /min Blood Pressure Systolic 159 mm[Hg] Blood Pressure Diastolic 93 mm[Hg] 11/27/2023 07:00 PM Temperature 97.5 [degF] Oxygen Saturation 97 % Respiratory Rate 18 /min Heart Rate 68 /min Blood Pressure Systolic 109 mm[Hg] Blood Pressure Diastolic 63 mm[Hg] 11/24/2023 09:25 AM Temperature 97 [degF] Oxygen Saturation 98 % Respiratory Rate 20 /min Heart Rate 58 /min Body Weight 139.8 [lb_av] Body Mass Index 23.26 kg/m2 11/25/2023 09:43 AM Temperature 97.4 [degF] Oxygen Saturation 96 % Respiratory Rate 20 /min Heart Rate 49 /min 11/24/2023 10:36 PM Temperature 98.1 [degF] Oxygen Saturation 96 % Respiratory Rate 22 /min Heart Rate 61 /min 11/26/2023 11:17 AM Body Weight 139.6 [lb_av] Body Mass Index 23.23 kg/m2 11/25/2023 10:52 PM Temperature 98.7 [degF] Oxygen Saturation 96 % Respiratory Rate 20 /min Heart Rate 60 /min Blood Pressure Systolic 136 mm[Hg] Blood Pressure Diastolic 93 mm[Hg] 11/23/2023 03:10 PM Body Height 65 [in_us] Body Weight 137.8 [lb_av] Body Mass Index 22.93 kg/m2 11/26/2023 08:51 AM Temperature 97.2 [degF] Oxygen Saturation 95 % Respiratory Rate 14 /min Heart Rate 51 /min Blood Pressure Systolic 137 mm[Hg] Blood Pressure Diastolic 76 mm[Hg] 11/26/2023 07:58 AM Blood Pressure Systolic 137 mm[Hg] Blood Pressure Diastolic 76 mm[Hg] Social History No smoking Hx information available Encounters Type CPT Code Date Location Provider Indication s encounter report 11/23/2023 02:4 1 PM - 11/29/2023 02:56 PM MARIELA URBANO MD 03 Advance Directives Directive Description Verification Date Supporting Document(s) Other Directive
--- OUTSIDE RECORDS SUMMARY | 2024-09-19 14:39 | XMS_ITS | Encounter Summary ---
Author Organization [facility] Address [address] [place] [address] Care Team Providers Care Pool Manager Name Role Phone Unavailable Primary Care Provider Unavailabl e Encounter Details Date Type Department Care Team (Late st Contact Info) Description 05/17/2015 Lab Requisition [facility] Laboratory Services [address] [place] [address] Magdi rCawford MD [address] [place] [address] Social History Tobacco Use Types Packs/Day Years Used Date Smoking Tobacco: Never Assessed Comments Unknown Sex and Gender Information Value Date Recorded Sex Assigned at Not on file Legal Sex Female 4:17 AM SCIENTIST Gender Identity Not on file Sexual Orientation Not on file documented as of this encounter Plan of Treatment Not on file documented as of this encounter Procedures Procedure Name Priority Date/Time Associated Diagnosis Comments CBC WITH DIFFERENTIAL Routine 05/17/2015 3:30 AM SCIENTIST TRIGLYCERIDE Routine 05/17/2015 3:30 AM SCIENTIST PREALBUMIN Routine 05/17/2015 3:30 AM SCIENTIST LIPID PANEL Routine 05/17/2015 3:30 AM SCIENTIST COMPREHENSIVE METABOLIC PANEL Routine 05/17/2015 3:30 AM SCIENTIST documented in this encounter Results * (ABNORMAL) TRIGLYCERIDE (05/17/2015 3:30 AM SCIENTIST) TRIGLYCERIDE 238(H) <150 mg/dL 05/17/2015 6:24 AM [facility] Blood Collection / Unknown 05/17/2015 3:30 AM SCIENTIST 05/17/2015 5:20 AM SCIENTIST Narrative [facility] - 05/17/2015 6:24 AM SCIENTIST TRIGLYCERIDES mg/dL Normal < 150 Borderline High 150 - 199 High 200 - 499 Very High >= 500 Based on AHA/NCEP Guidelines. Magdi Crawford MD CHEMISTRY ORDERABLES Final Result Performing Organization Address City/[facility]/ZIP Co de Phone Number [facility] CLIA# [id number] [address] [place] [address] * PREALBUMIN (05/17/2015 3:30 AM SCIENTIST) PREALBUMIN 33 20 - 40 mg/dL 05/17/2015 6:24 AM [facility] Blood Collection / Unknown 05/17/2015 3:30 AM SCIENTIST 05/17/2015 5:20 AM SCIENTIST Magdi Crawford MD CHEMISTRY ORDERABLES Final Result Performing Organization Address City/[facility] Co de Phone Number [facility] CLIA# [id number] [address] [place], [place] [address] * (ABNORMAL) CBC WITH DIFFERENTIAL (05/17/2015 3:30 AM SCIENTIST) WBC 13.2(H) 4.8 - 10.8 K/uL 05/17/2015 5:51 AM [facility] RBC 3.44(L) 4.20 - 5.40 M/uL 05/17/2015 5:51 AM [facility] HEMOGLOBIN 9.1(L) 12.0 - 16.0 g/dL 05/17/2015 5:51 AM [facility] HEMATOCRIT 30.5(L) 36.0 - 46.0 % 05/17/2015 5:51 AM [facility] MCV 88.7 84.0 - 103.0 fL 05/17/2015 5:51 AM [facility] MCH 26.5(L) 27.0 - 34.0 pg 05/17/2015 5:51 AM [facility] MCHC 29.8(L) 30.0 - 35.0 g/dL 05/17/2015 5:51 AM [facility] RDW 17.6(H) 11.0 - 14.5 % 05/17/2015 5:51 AM [facility] RDW-STDEV 55.2(H) 37.0 - 54.0 fL 05/17/2015 5:51 AM [facility] PLATELETS 464(H) 140 - 440 K/uL 05/17/2015 5:51 AM [facility] MPV 9.9 8.9 - 12.8 fL 05/17/2015 5:51 AM [facility] NEUTROPHILS 58 42 - 75 % 05/17/2015 5:51 AM [facility] LYMPHOCYTES 31 24 - 44 % 05/17/2015 5:51 AM [facility] MONOCYTES 9 2 - 10 % 05/17/2015 5:51 AM [facility] EOSINOPHILS 2 0 - 7 % 05/17/2015 5:51 AM [facility] BASOPHILS 0 0 - 1 % 05/17/2015 5:51 AM [facility] NEUTROPHIL ABSOLUTE 7.58 2.00 - 8.00 K/uL 05/17/2015 5:51 AM [facility] LYMPHOCYTE ABSOLUTE 4.02(H) 1.20 - 4.00 K/uL 05/17/2015 5:51 AM [facility] MONOCYTE ABSOLUTE 1.19(H) 0.10 - 0.60 K/uL 05/17/2015 5:51 AM [facility] EOSINOPHIL ABSOLUTE 0.23 0.00 - 0.70 K/uL 05/17/2015 5:51 AM [facility] BASOPHILS ABSOLUTE 0.03 0.00 - 0.20 K/uL 05/17/2015 5:51 AM [facility] IMMATURE GRANULOCYTES 1 0 - 2 % 05/17/2015 5:51 AM [facility] IMMATURE GRANULOCYTES ABSOLUTE 0.14(H) 0.00 - 0.10 K/uL 05/17/2015 5:51 AM [facility] Blood Collection / Unknown 05/17/2015 3:30 AM SCIENTIST 05/17/2015 5:20 AM SCIENTIST us Magdi Crawford MD HEMATOLOGY ORDERABLES Final Result [facility] CLIA# [id number] [address] [place] [address] * (ABNORMAL) LIPID PANEL (05/17/2015 3:30 AM SCIENTIST) CHOLESTEROL 139 <200 mg/dL 05/17/2015 6:24 AM [facility] TRIGLYCERIDE 238(H) <150 mg/dL 05/17/2015 6:24 AM [facility] HDL 26(L) 40 - 59 mg/dL 05/17/2015 6:24 AM [facility] LDL CALCULATED 65 <100 mg/dL 05/17/2015 6:24 AM [facility] NON-HDL CHOLESTEROL 113 <130 mg/dL 05/17/2015 6:24 AM [facility] Blood Collection / Unknown 05/17/2015 3:30 AM SCIENTIST 05/17/2015 5:20 AM SCIENTIST Narrative [facility] - 05/17/2015 6:24 AM SCIENTIST TOTAL CHOLESTEROL mg/dL Desirable <200 Borderline high 200-239 High >=240 TRIGLYCERIDES mg/dL Normal <150 Borderline high 150-199 High 200-499 Very high >=500 HDL CHOLESTEROL mg/dL Low <40 Normal 40-59 Desirable >=60 LDL CHOLESTEROL mg/dL Optimal <100 Low risk 100-129 Borderline high 130-159 High 160-189 Very high >=190 NON HDL CHOLESTEROL mg/dL Optimal <130 Near Optimal 130-159 Borderline High 160-189 High 190-219 Very high >=220 Based on AHA/NCEP Guidelines us Magdi Crawford MD CHEMISTRY ORDERABLES Final Result [facility] CLIA# [id number] [address] [place] [address] * (ABNORMAL) COMPREHENSIVE METABOLIC PANEL (05/17/2015 3:30 AM SCIENTIST) SODIUM 138 136 - 145 mmol/L 05/17/2015 6:24 AM [facility] POTASSIUM 4.4 3.5 - 5.1 mmol/L 05/17/2015 6:24 AM [facility] CHLORIDE 107 98 - 107 mmol/L 05/17/2015 6:24 AM [facility] CO2 22 21 - 32 mmol/L 05/17/2015 6:24 AM [facility] CALCIUM 8.1(L) 8.4 - 10.1 mg/dL 05/17/2015 6:24 AM [facility] BUN 18(H) 7 - 17 mg/dL 05/17/2015 6:24 AM [facility] CREATININE 0.54(L) 0.55 - 1.02 mg/dL 05/17/2015 6:24 AM [facility] GLUCOSE 76 74 - 106 mg/dL 05/17/2015 6:24 AM [facility] TOTAL PROTEIN 6.3(L) 6.4 - 8.2 g/dL 05/17/2015 6:24 AM [facility] ALBUMIN 2.4(L) 3.4 - 5.0 g/dL 05/17/2015 6:24 AM [facility] BILIRUBIN TOTAL 0.5 0.2 - 1.0 mg/dL 05/17/2015 6:24 AM [facility] ALKALINE PHOSPHATASE 173(H) 25 - 100 U/L 05/17/2015 6:24 AM [facility] AST 20 15 - 37 U/L 05/17/2015 6:24 AM [facility] ALT 24 13 - 61 U/L 05/17/2015 6:24 AM [facility] GFR >60 >=60 mL/min/1. 73 sq meter 05/17/2015 6:24 AM [facility] Comment: eGFR has [...] mL/min/1. 73 sq meter 05/17/2015 6:24 AM [facility] ANION GAP 9 8 - 16 mmol/L 05/17/2015 6:24 AM [facility] Blood Collection / Unknown 05/17/2015 3:30 AM SCIENTIST 05/17/2015 5:20 AM SCIENTIST us Magdi Crawford MD CHEMISTRY ORDERABLES Final Result [facility] CLIA# [id number] [address] [place] [address] documented in this encounter Visit Diagnoses Not on filedocumented in this encounter
--- OUTSIDE RECORDS SUMMARY | 2024-09-19 14:39 | XMS_ITS | Encounter Summary ---
Author Organization [employer] [facility] Address [address] [place] [address] Care Team Providers Care Unclaimed Property Manager Name Role Phone Unavailable Primary Care Provider Unavailabl e Encounter Details Date Type Department Care Team (Late st Contact Info) Description 05/13/2015 Lab Requisition [facility] Laboratory Services [address] [place] [address] Magdi Crawford MD [address] [place] [address] Social History Tobacco Use Types Packs/Day Years Used Date Smoking Tobacco: Never Assessed Comments Unknown Sex and Gender Information Value Date Recorded Sex Assigned at Not on file Legal Sex Female 4:17 AM WAREHOUSE RECEIVING CLERK Gender Identity Not on file Sexual Orientation Not on file documented as of this encounter Plan of Treatment Not on file documented as of this encounter Procedures Procedure Name Priority Date/Time Associated Diagnosis Comments CBC WITH DIFFERENTIAL Routine 05/13/2015 3:30 AM WAREHOUSE RECEIVING CLERK PHOSPHORUS Routine 05/13/2015 3:30 AM WAREHOUSE RECEIVING CLERK MAGNESIUM LEVEL Routine 05/13/2015 3:30 AM WAREHOUSE RECEIVING CLERK COMPREHENSIVE METABOLIC PANEL Routine 05/13/2015 3:30 AM WAREHOUSE RECEIVING CLERK documented in this encounter Results * PHOSPHORUS (05/13/2015 3:30 AM WAREHOUSE RECEIVING CLERK) PHOSPHORUS 3.7 2.5 - 4.9 mg/dL 05/13/2015 6:21 AM WAREHOUSE RECEIVING CLERK [facility] Blood Collection / Unknown 05/13/2015 3:30 AM WAREHOUSE RECEIVING CLERK 05/13/2015 5:33 AM WAREHOUSE RECEIVING CLERK Magdi Crawford MD CHEMISTRY ORDERABLES Final Result Performing Organization Address [facility]/ZIP Co de Phone Number [facility] CLIA# [id number] [address] [place] [address] * MAGNESIUM LEVEL (05/13/2015 3:30 AM WAREHOUSE RECEIVING CLERK) Pathologist [facility] [place] MAGNESIUM 1.9 1.8 - 2.4 mg/dL 05/13/2015 6:21 AM [facility] Blood Collection / Unknown 05/13/2015 3:30 AM WAREHOUSE RECEIVING CLERK 05/13/2015 5:33 AM WAREHOUSE RECEIVING CLERK us Magdi Crawford MD CHEMISTRY ORDERABLES Final Result Performing Organization Address [facility] Co de Phone Number [facility] CLIA# [id number] [address] [place] [address] * (ABNORMAL) CBC WITH DIFFERENTIAL (05/13/2015 3:30 AM WAREHOUSE RECEIVING CLERK) Pathologist [facility] [place] WBC 12.9(H) 4.8 - 10.8 K/uL 05/13/2015 6:06 AM [facility] RBC 3.33(L) 4.20 - 5.40 M/uL 05/13/2015 6:06 AM [facility] HEMOGLOBIN 9.0(L) 12.0 - 16.0 g/dL 05/13/2015 6:06 AM [facility] HEMATOCRIT 29.5(L) 36.0 - 46.0 % 05/13/2015 6:06 AM [facility] MCV 88.6 84.0 - 103.0 fL 05/13/2015 6:06 AM [facility] MCH 27.0 27.0 - 34.0 pg 05/13/2015 6:06 AM [facility] MCHC 30.5 30.0 - 35.0 g/dL 05/13/2015 6:06 AM [facility] RDW 17.2(H) 11.0 - 14.5 % 05/13/2015 6:06 AM [facility] RDW-STDEV 53.8 37.0 - 54.0 fL 05/13/2015 6:06 AM [facility] PLATELETS 460(H) 140 - 440 K/uL 05/13/2015 6:06 AM [facility] MPV 10.3 8.9 - 12.8 fL 05/13/2015 6:06 AM [facility] NEUTROPHILS 60 42 - 75 % 05/13/2015 6:06 AM [facility] LYMPHOCYTES 25 24 - 44 % 05/13/2015 6:06 AM [facility] MONOCYTES 7 2 - 10 % 05/13/2015 6:06 AM [facility] EOSINOPHILS 3 0 - 7 % 05/13/2015 6:06 AM [facility] BASOPHILS 0 0 - 1 % 05/13/2015 6:06 AM [facility] NEUTROPHIL ABSOLUTE 7.80 2.00 - 8.00 K/uL 05/13/2015 6:06 AM [facility] LYMPHOCYTE ABSOLUTE 3.23 1.20 - 4.00 K/uL 05/13/2015 6:06 AM [facility] MONOCYTE ABSOLUTE 0.93(H) 0.10 - 0.60 K/uL 05/13/2015 6:06 AM [facility] EOSINOPHIL ABSOLUTE 0.40 0.00 - 0.70 K/uL 05/13/2015 6:06 AM [facility] BASOPHILS ABSOLUTE 0.04 0.00 - 0.20 K/uL 05/13/2015 6:06 AM [facility] IMMATURE GRANULOCYTES 4(H) 0 - 2 % 05/13/2015 6:06 AM [facility] IMMATURE GRANULOCYTES ABSOLUTE 0.51(H) 0.00 - 0.10 K/uL 05/13/2015 6:06 AM [facility] Blood Collection / Unknown 05/13/2015 3:30 AM WAREHOUSE RECEIVING CLERK 05/13/2015 5:33 AM WAREHOUSE RECEIVING CLERK us Magdi Crawford MD HEMATOLOGY ORDERABLES Final Result [facility] CLIA# [id number] [facility] [place] [address] * (ABNORMAL) COMPREHENSIVE METABOLIC PANEL (05/13/2015 3:30 AM WAREHOUSE RECEIVING CLERK) SODIUM 139 136 - 145 mmol/L 05/13/2015 6:21 AM [facility] POTASSIUM 4.3 3.5 - 5.1 mmol/L 05/13/2015 6:21 AM [facility] CHLORIDE 105 98 - 107 mmol/L 05/13/2015 6:21 AM [facility] CO2 25 21 - 32 mmol/L 05/13/2015 6:21 AM [facility] CALCIUM 8.4 8.4 - 10.1 mg/dL 05/13/2015 6:21 AM [facility] BUN 19(H) 7 - 17 mg/dL 05/13/2015 6:21 AM [facility] CREATININE 0.46(L) 0.55 - 1.02 mg/dL 05/13/2015 6:21 AM [facility] GLUCOSE 125(H) 74 - 106 mg/dL 05/13/2015 6:21 AM [facility] TOTAL PROTEIN 6.3(L) 6.4 - 8.2 g/dL 05/13/2015 6:21 AM [facility] ALBUMIN 2.2(L) 3.4 - 5.0 g/dL 05/13/2015 6:21 AM [facility] BILIRUBIN TOTAL 0.5 0.2 - 1.0 mg/dL 05/13/2015 6:21 AM [facility] ALKALINE PHOSPHATASE 178(H) 25 - 100 U/L 05/13/2015 6:21 AM [facility] AST 18 15 - 37 U/L 05/13/2015 6:21 AM [facility] ALT 30 13 - 61 U/L 05/13/2015 6:21 AM [facility] GFR >60 >=60 mL/min/1. 73 sq meter 05/13/2015 6:21 AM [facility] Comment: eGFR has not been validated [...] mL/min/1. 73 sq meter 05/13/2015 6:21 AM [facility] ANION GAP 9 8 - 16 mmol/L 05/13/2015 6:21 AM [facility] Blood Collection / Unknown 05/13/2015 3:30 AM WAREHOUSE RECEIVING CLERK 05/13/2015 5:33 AM WAREHOUSE RECEIVING CLERK us Magdi Crawford MD CHEMISTRY ORDERABLES Final Result [facility] CLIA# [id number] [address] [place] [address] documented in this encounter Visit Diagnoses Not on filedocumented in this encounter
--- OUTSIDE RECORDS SUMMARY | 2024-09-19 14:39 | XMS_ITS | Encounter Summary ---
Author Organization [facility] Address [address] [place] [address] Care Team Providers Care Eyelet Operator Name Role Phone Unavailable Primary Care Provider Unavailabl e Encounter Details Date Type Department Care Team (Latest Contact Info) Description 02/26/2002 Outpatient Historical [facility] Gurwinder Felipe Jr., MD [address] [place] [phone] HYPERTENSION NOS (Primary Dx); BRONCHITIS NOS; OSTEOPOROSIS NOS Social History Tobacco Use Types Packs/Day Years Used Date Smoking Tobacco: Never Assessed Comments Unknown Sex and Gender Information Value Date Recorded Sex Assigned at Not on file Legal Sex Female 4:17 AM CASH REGISTER MECHANIC Gender Identity Not on file Sexual Orientation Not on file documented as of this encounter Plan of Treatment Not on file documented as of this encounter Visit Diagnoses Diagnosis Unspecified essential hypertension- Primary Bronchitis, not specified as acute or chronic Osteoporosis, unspecified documented in this encounter
--- OUTSIDE RECORDS SUMMARY | 2024-09-19 14:39 | XMS_ITS | Encounter Summary ---
Author Organization [facility] Address [address] [place] [address] Care Team Providers Care Chipper Feeder Name Role Phone Unavailable Primary Care Provider Unavailabl e Encounter Details Date Type Department Care Team (Late st Contact Info) Description 04/22/2015 Lab Requisition [facility] Laboratory Services [address] [place] [address] Magdi Crawford MD [address] [place] [address] Social History Tobacco Use Types Packs/Day Years Used Date Smoking Tobacco: Never Assessed Comments Unknown Sex and Gender Information Value Date Recorded Sex Assigned at Not on file Legal Sex Female 4:17 AM GRAPHIC PRODUCTION ARTIST Gender Identity Not on file Sexual Orientation Not on file documented as of this encounter Plan of Treatment Not on file documented as of this encounter Procedures Procedure Name Priority Date/Time Associated Diagnosis Comments PREALBUMIN Routine 04/22/2015 3:30 AM GRAPHIC PRODUCTION ARTIST PHOSPHORUS Routine 04/22/2015 3:30 AM GRAPHIC PRODUCTION ARTIST documented in this encounter Results * PHOSPHORUS (04/22/2015 3:30 AM GRAPHIC PRODUCTION ARTIST) PHOSPHORUS 2.5 2.5 - 4.9 mg/dL 04/22/2015 5:54 AM GRAPHIC PRODUCTION ARTIST [facility] LABORATORY [facility] Blood Collection / Unknown 04/22/2015 3:30 AM GRAPHIC PRODUCTION ARTIST 04/22/2015 5:07 AM GRAPHIC PRODUCTION ARTIST us Magdi Crawford MD CHEMISTRY ORDERABLES Final Result [facility] [employer] [facility] CLIA# [id number] [address] [place] [address] * (ABNORMAL) PREALBUMIN (04/22/2015 3:30 AM GRAPHIC PRODUCTION ARTIST) PREALBUMIN 17(L) 20 - 40 mg/dL 04/22/2015 5:54 AM GRAPHIC PRODUCTION ARTIST [facility] [employer] [facility] Blood Collection / Unknown 04/22/2015 3:30 AM GRAPHIC PRODUCTION ARTIST 04/22/2015 5:07 AM GRAPHIC PRODUCTION ARTIST Magdi Crawford MD CHEMISTRY ORDERABLES Final Result Performing Organization Address [facility] Co de Phone Number [facility] [employer] [facility] CLIA# [id number] [address] [place], [place] [id number] documented in this encounter Visit Diagnoses Not on filedocumented in this encounter
--- OUTSIDE RECORDS SUMMARY | 2024-09-19 14:39 | XMS_ITS | Encounter Summary ---
Author Organization [facility] Address [address] [place] [address] Care Team Providers Care Solar Installation Helper Name Role Phone Unavailable Primary Care Provider Unavailabl e Encounter Details Date Type Department Care Team (Late st Contact Info) Description 02/03/2002 Outpatient Historical [facility] Causeynn Lamb [address] [place] [address] Jeramie Cartagena MD [address] [facility] [address] [place] [address] CHEST PAIN NOS (Primary Dx); HYPERTENSION NOS Social History Tobacco Use Types Packs/Day Years Used Date Smoking Tobacco: Never Assessed Comments Unknown Sex and Gender Information Value Date Recorded Sex Assigned at Not on file Legal Sex Female 4:17 AM LADLE PULLER Gender Identity Not on file Sexual Orientation Not on file documented as of this encounter Plan of Treatment Not on file documented as of this encounter Visit Diagnoses Diagnosis Chest pain, unspecified- Primary Unspecified essential hypertension documented in this encounter
--- OUTSIDE RECORDS SUMMARY | 2024-09-19 14:39 | XMS_ITS | Encounter Summary ---
Author Organization [facility] Address [address] [place] [address] Care Team Providers Care Alcohol Law Enforcement Agent Name Role Phone Unavailable Primary Care Provider Unavailabl e Encounter Details Date Type Department Care Team (Late st Contact Info) Description 04/22/2015 Lab Requisition [facility] Laboratory Services [address] [place] [address] Magdi Crawford MD [address] [place] [address] Social History Tobacco Use Types Packs/Day Years Used Date Smoking Tobacco: Never Assessed Comments Unknown Sex and Gender Information Value Date Recorded Sex Assigned at Not on file Legal Sex Female 4:17 AM BEEF CATTLE FARM MANAGER Gender Identity Not on file Sexual Orientation Not on file documented as of this encounter Plan of Treatment Not on file documented as of this encounter Procedures Procedure Name Priority Date/Time Associated Diagnosis Comments CBC WITH DIFFERENTIAL Routine 04/22/2015 3:30 AM BEEF CATTLE FARM MANAGER MAGNESIUM LEVEL Routine 04/22/2015 3:30 AM BEEF CATTLE FARM MANAGER VANCOMYCIN LEVEL RANDOM Routine 04/22/2015 3:30 AM BEEF CATTLE FARM MANAGER LIPID PANEL Routine 04/22/2015 3:30 AM BEEF CATTLE FARM MANAGER COMPREHENSIVE METABOLIC PANEL Routine 04/22/2015 3:30 AM BEEF CATTLE FARM MANAGER documented in this encounter Results * MAGNESIUM LEVEL (04/22/2015 3:30 AM BEEF CATTLE FARM MANAGER) MAGNESIUM 2.0 1.8 - 2.4 mg/dL 04/22/2015 6:09 AM [facility] Blood Collection / Unknown 04/22/2015 3:30 AM BEEF CATTLE FARM MANAGER 04/22/2015 5:06 AM BEEF CATTLE FARM MANAGER us Magdi Crawford MD CHEMISTRY ORDERABLES Final Result Performing Organization Address [facility]/ZIP Co de Phone Number [facility] CLIA# [id number] [address] [place] [address] * VANCOMYCIN LEVEL RANDOM (04/22/2015 3:30 AM BEEF CATTLE FARM MANAGER) Pathologist [facility] VANCOMYCIN, RANDOM 5.5 5.0 - 50.0 ug/mL 04/22/2015 6:09 AM [facility] Blood Collection / Unknown 04/22/2015 3:30 AM BEEF CATTLE FARM MANAGER 04/22/2015 5:06 AM BEEF CATTLE FARM MANAGER Narrative [facility] - 04/22/2015 6:09 AM BEEF CATTLE FARM MANAGER Vancomycin Therapeutic Ranges: Vancomycin Trough: 10 - 20 mcg/mL Vancomycin Peak: 25 - 50 mcg/mL us Magdi Crawford MD CHEMISTRY ORDERABLES Final Result Performing Organization Address [facility] Co de Phone Number [facility] CLIA# [id number] [address] [place] [address] * (ABNORMAL) CBC WITH DIFFERENTIAL (04/22/2015 3:30 AM BEEF CATTLE FARM MANAGER) Pathologist [facility] WBC 25.0(H) 4.8 - 10.8 K/uL 04/22/2015 6:38 AM [facility] RBC 2.95(L) 4.20 - 5.40 M/uL 04/22/2015 6:38 AM [facility] HEMOGLOBIN 8.6(L) 12.0 - 16.0 g/dL 04/22/2015 6:38 AM [facility] HEMATOCRIT 26.6(L) 36.0 - 46.0 % 04/22/2015 6:38 AM [facility] MCV 90.2 84.0 - 103.0 fL 04/22/2015 6:38 AM [facility] MCH 29.2 27.0 - 34.0 pg 04/22/2015 6:38 AM [facility] MCHC 32.3 30.0 - 35.0 g/dL 04/22/2015 6:38 AM [facility] RDW 16.6(H) 11.0 - 14.5 % 04/22/2015 6:38 AM [facility] RDW-STDEV 52.3 37.0 - 54.0 fL 04/22/2015 6:38 AM [facility] PLATELETS 438 140 - 440 K/uL 04/22/2015 6:38 AM [facility] MPV 11.4 8.9 - 12.8 fL 04/22/2015 6:38 AM [facility] NEUTROPHILS 84(H) 42 - 75 % 04/22/2015 6:38 AM [facility] LYMPHOCYTES 6(L) 24 - 44 % 04/22/2015 6:38 AM [facility] MONOCYTES 4 2 - 10 % 04/22/2015 6:38 AM [facility] EOSINOPHILS 1 0 - 7 % 04/22/2015 6:38 AM [facility] BASOPHILS 0 0 - 1 % 04/22/2015 6:38 AM [facility] NEUTROPHIL ABSOLUTE 21.01(H) 2.00 - 8.00 K/uL 04/22/2015 6:38 AM [facility] LYMPHOCYTE ABSOLUTE 1.44 1.20 - 4.00 K/uL 04/22/2015 6:38 AM [facility] MONOCYTE ABSOLUTE 1.09(H) 0.10 - 0.60 K/uL 04/22/2015 6:38 AM [facility] EOSINOPHIL ABSOLUTE 0.19 0.00 - 0.70 K/uL 04/22/2015 6:38 AM [facility] BASOPHILS ABSOLUTE 0.05 0.00 - 0.20 K/uL 04/22/2015 6:38 AM [facility] IMMATURE GRANULOCYTES 5(H) 0 - 2 % 04/22/2015 6:38 AM [facility] IMMATURE GRANULOCYTES ABSOLUTE 1.17(H) 0.00 - 0.10 K/uL 04/22/2015 6:38 AM [facility] Blood Collection / Unknown 04/22/2015 3:30 AM BEEF CATTLE FARM MANAGER 04/22/2015 5:06 AM BEEF CATTLE FARM MANAGER Magdi Crawford MD HEMATOLOGY ORDERABLES Final Result [facility] CLIA# [id number] [address] [place] [address] * (ABNORMAL) LIPID PANEL (04/22/2015 3:30 AM BEEF CATTLE FARM MANAGER) CHOLESTEROL <50 <200 mg/dL 04/22/2015 6:25 AM [facility] TRIGLYCERIDE 113 <150 mg/dL 04/22/2015 6:25 AM [facility] HDL 13(L) 40 - 59 mg/dL 04/22/2015 6:25 AM [facility] LDL CALCULATED <100 mg/dL 04/22/2015 6:25 AM [facility] Comment:Chol <50 calculation not valid NON-HDL CHOLESTEROL <130 mg/dL 04/22/2015 6:25 AM [facility] Comment:Chol <50 calculation not valid Blood Collection / Unknown 04/22/2015 3:30 AM BEEF CATTLE FARM MANAGER 04/22/2015 5:06 AM BEEF CATTLE FARM MANAGER Narrative [facility] - 04/22/2015 6:25 AM BEEF CATTLE FARM MANAGER TOTAL CHOLESTEROL mg/dL Desirable <200 Borderline high [...] Magdi Crawford MD CHEMISTRY ORDERABLES Final Result [facility] CLCOURTNEY# [id number] [facility] [place] [address] * (ABNORMAL) COMPREHENSIVE METABOLIC PANEL (04/22/2015 3:30 AM BEEF CATTLE FARM MANAGER) SODIUM 140 136 - 145 mmol/L 04/22/2015 6:09 AM [facility] POTASSIUM 3.9 3.5 - 5.1 mmol/L 04/22/2015 6:09 AM [facility] CHLORIDE 107 98 - 107 mmol/L 04/22/2015 6:09 AM [facility] CO2 25 21 - 32 mmol/L 04/22/2015 6:09 AM [facility] CALCIUM 7.3(L) 8.4 - 10.1 mg/dL 04/22/2015 6:09 AM [facility] BUN 19(H) 7 - 17 mg/dL 04/22/2015 6:09 AM [facility] CREATININE 0.48(L) 0.55 - 1.02 mg/dL 04/22/2015 6:09 AM [facility] GLUCOSE 111(H) 74 - 106 mg/dL 04/22/2015 6:09 AM [facility] TOTAL PROTEIN 4.4(L) 6.4 - 8.2 g/dL 04/22/2015 6:09 AM [facility] ALBUMIN 1.3(L) 3.4 - 5.0 g/dL 04/22/2015 6:09 AM [facility] BILIRUBIN TOTAL 0.5 0.2 - 1.0 mg/dL 04/22/2015 6:09 AM [facility] ALKALINE PHOSPHATASE 53 25 - 100 U/L 04/22/2015 6:09 AM [facility] AST 15 15 - 37 U/L 04/22/2015 6:09 AM [facility] ALT 11(L) 13 - 61 U/L 04/22/2015 6:09 AM [facility] GFR >60 >=60 mL/min/1. 73 sq meter 04/22/2015 6:09 AM [facility] Comment: eGFR has not been validated [...] mL/min/1. 73 sq meter 04/22/2015 6:09 AM [facility] ANION GAP 8 8 - 16 mmol/L 04/22/2015 6:09 AM [facility] Blood Collection / Unknown 04/22/2015 3:30 AM [facility] 04/22/2015 5:06 AM [facility] - 04/22/2015 6:09 AM [facility] The reference range for ALT has changed from its previous range of 12-78 U/L as of 03/31/2015. us Magdi Crawford MD CHEMISTRY ORDERABLES Final Result [facility] CLIA# [id number] [facility] [place] [address] documented in this encounter Visit Diagnoses Not on filedocumented in this encounter
--- OUTSIDE RECORDS SUMMARY | 2024-09-19 14:39 | XMS_ITS | Encounter Summary ---
Author Organization 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
--- OUTSIDE RECORDS SUMMARY | 2024-09-19 14:39 | XMS_ITS | Encounter Summary ---
Author Organization [employer] [facility] Address [address] [place] [address] Care Team Providers Care Renewals Representative Name Role Phone Unavailable Primary Care Provider Unavailabl e Encounter Details Date Type Department Care Team (Latest Contact Info) Description 01/15/2002 Outpatient Historical [facility] Gurwinder Felipe Jr., MD [address] [place] [phone] HYPERTENSION NOS (Primary Dx); FOLLOW-UP EXAM NOS Social History Tobacco Use Types Packs/Day Years Used Date Smoking Tobacco: Never Assessed Comments Unknown Sex and Gender Information Value Date Recorded Sex Assigned at Not on file Legal Sex Female 4:17 AM MANAGER OF FINANCIAL REPORTING Gender Identity Not on file Sexual Orientation Not on file documented as of this encounter Plan of Treatment Not on file documented as of this encounter Visit Diagnoses Diagnosis Unspecified essential hypertension- Primary Unspecified follow-up examination documented in this encounter
--- OUTSIDE RECORDS SUMMARY | 2024-09-19 14:39 | XMS_ITS | Encounter Summary ---
Author Organization [employer] [facility] Address [address] [place] [address] Care Team Providers Care Epoxy Specialist Name Role Phone Unavailable Primary Care Provider Unavailabl e Encounter Details Date Type Department Care Team (Latest Contact Info) Description 01/07/2003 Outpatient Historical [facility] Gurwinder Felipe Jr., MD [address] [place] [phone] OSTEOARTHROS NOS-UNSPEC (Primary Dx) Social History Tobacco Use Types Packs/Day Years Used Date Smoking Tobacco: Never Assessed Comments Unknown Sex and Gender Information Value Date Recorded Sex Assigned at Not on file Legal Sex Female 4:17 AM TRUCK SALES MANAGER Gender Identity Not on file Sexual Orientation Not on file documented as of this encounter Plan of Treatment Not on file documented as of this encounter Visit Diagnoses Diagnosis Osteoarthrosis, unspecified whether generalized or localized, unspecified site- Primary documented in this encounter
--- OUTSIDE RECORDS SUMMARY | 2024-09-19 14:39 | XMS_ITS | Encounter Summary ---
Author Organization [employer] [facility] Address [address] [place] [address] Care Team Providers Care Tool Checker Name Role Phone Unavailable Primary Care Provider Unavailabl e Encounter Details Date Type Department Care Team (Latest Contact Info) Description 01/08/2002 Outpatient Historical [facility] Gurwinder Felipe Jr., MD [facility] [place] [phone] CHEST PAIN NOS (Primary Dx); SHORTNESS OF BREATH; HYPERTENSION NOS Social History Tobacco Use Types Packs/Day Years Used Date Smoking Tobacco: Never Assessed Comments Unknown Sex and Gender Information Value Date Recorded Sex Assigned at Not on file Legal Sex Female 4:17 AM TAX ATTORNEY Gender Identity Not on file Sexual Orientation Not on file documented as of this encounter Plan of Treatment Not on file documented as of this encounter Visit Diagnoses Diagnosis Chest pain, unspecified- Primary Shortness of breath Unspecified essential hypertension documented in this encounter
--- OUTSIDE RECORDS SUMMARY | 2024-09-19 14:39 | XMS_ITS | Encounter Summary ---
Author Organization [facility] Address [address] [place] [address] Care Team Providers Care Local Driver Name Role Phone Unavailable Primary Care Provider Unavailabl e Encounter Details Date Type Department Care Team (Late st Contact Info) Description 04/26/2015 Lab Requisition [facility] Laboratory Services [address] [place] [address] Magdi Crawford MD [address] [place] [address] Social History Tobacco Use Types Packs/Day Years Used Date Smoking Tobacco: Never Assessed Comments Unknown Sex and Gender Information Value Date Recorded Sex Assigned at Not on file Legal Sex Female 4:17 AM FLASHER ADJUSTER Gender Identity Not on file Sexual Orientation Not on file documented as of this encounter Plan of Treatment Not on file documented as of this encounter Procedures Procedure Name Priority Date/Time Associated Diagnosis Comments CBC WITH DIFFERENTIAL Routine 04/26/2015 3:30 AM FLASHER ADJUSTER TRIGLYCERIDE Routine 04/26/2015 3:30 AM FLASHER ADJUSTER PREALBUMIN Routine 04/26/2015 3:30 AM FLASHER ADJUSTER LIPID PANEL Routine 04/26/2015 3:30 AM FLASHER ADJUSTER COMPREHENSIVE METABOLIC PANEL Routine 04/26/2015 3:30 AM FLASHER ADJUSTER documented in this encounter Results * (ABNORMAL) LIPID PANEL (04/26/2015 3:30 AM FLASHER ADJUSTER) [facility] CHOLESTEROL <50 <200 mg/dL 04/26/2015 6:[address] [facility] TRIGLYCERIDE 114 <150 mg/dL 04/26/2015 6:[address] [facility] HDL 18(L) 40 - 59 mg/dL 04/26/2015 6:[address] [facility] LDL CALCULATED <100 mg/dL 04/26/2015 6:[address] [facility] Comment: Cholesterol <50 Calculation invalid NON-HDL CHOLESTEROL <130 mg/dL 04/26/2015 6:[address] [facility] Comment: Cholesterol <50 Calculation invalid Blood Collection / Unknown 04/26/2015 3:30 AM FLASHER ADJUSTER 04/26/2015 5:29 AM FLASHER ADJUSTER [facility] - 04/26/2015 6:31 AM FLASHER ADJUSTER TOTAL CHOLESTEROL mg/dL Desirable <200 Borderline high [...] Magdi Crawford MD CHEMISTRY ORDERABLES Final Result [facility]# [id number] [address] [place] [id number] * TRIGLYCERIDE (04/26/2015 3:30 AM FLASHER ADJUSTER) TRIGLYCERIDE 114 <150 mg/dL 04/26/2015 6:[address] [facility] Blood Collection / Unknown 04/26/2015 3:30 AM FLASHER ADJUSTER 04/26/2015 5:29 AM FLASHER ADJUSTER [facility] - 04/26/2015 6:24 AM FLASHER ADJUSTER TRIGLYCERIDES mg/dL Normal < 150 Borderline High 150 - 199 High 200 - 499 Very High >= 500 Based on AHA/NCEP Guidelines. us Magdi Crawford MD CHEMISTRY ORDERABLES Final Result Performing Organization Address City/[facility]/ZIP Co de Phone Number [facility] CLIA# [id number] [address] [place] [address] * (ABNORMAL) PREALBUMIN (04/26/2015 3:30 AM FLASHER ADJUSTER) Pathologist [facility] PREALBUMIN 18(L) 20 - 40 mg/dL 04/26/2015 6:[address] [facility] Blood Collection / Unknown 04/26/2015 3:30 AM FLASHER ADJUSTER 04/26/2015 5:29 AM FLASHER ADJUSTER us Magdi Crawford MD CHEMISTRY ORDERABLES Final Result Performing Organization Address [facility] Co de Phone Number [facility] CLIA# [id number] [address] [place] [address] * (ABNORMAL) CBC WITH DIFFERENTIAL (04/26/2015 3:30 AM FLASHER ADJUSTER) [facility] WBC 15.5(H) 4.8 - 10.8 K/uL 04/26/2015 6:08 AM [facility] [employer] [facility] RBC 2.66(L) 4.20 - 5.40 M/uL 04/26/2015 6:[address] [facility] HEMOGLOBIN 7.9(L) 12.0 - 16.0 g/dL 04/26/2015 6:[address] [facility] HEMATOCRIT 24.2(L) 36.0 - 46.0 % 04/26/2015 6:[address] [facility] MCV 91.0 84.0 - 103.0 fL 04/26/2015 6:[address] [facility] MCH 29.7 27.0 - 34.0 pg 04/26/2015 6:[address] [facility] MCHC 32.6 30.0 - 35.0 g/dL 04/26/2015 6:[address] [facility] RDW 16.3(H) 11.0 - 14.5 % 04/26/2015 6:[address] [facility] RDW-STDEV 53.1 37.0 - 54.0 fL 04/26/2015 6:[address] [facility] PLATELETS 653(H) 140 - 440 K/uL 04/26/2015 6:[address] [facility] MPV 10.0 8.9 - 12.8 fL 04/26/2015 6:[address] [facility] NEUTROPHILS 82(H) 42 - 75 % 04/26/2015 6:[address] [facility] LYMPHOCYTES 7(L) 24 - 44 % 04/26/2015 6:[address] [facility] MONOCYTES 9 2 - 10 % 04/26/2015 6:[address] [facility] EOSINOPHILS 1 0 - 7 % 04/26/2015 6:[address] [facility] BASOPHILS 0 0 - 1 % 04/26/2015 6:[address] [facility] NEUTROPHIL ABSOLUTE 12.66(H) 2.00 - 8.00 K/uL 04/26/2015 6:[address] [facility] LYMPHOCYTE ABSOLUTE 1.06(L) 1.20 - 4.00 K/uL 04/26/2015 6:[address] [facility] MONOCYTE ABSOLUTE 1.42(H) 0.10 - 0.60 K/uL 04/26/2015 6:08 AM [facility] [employer] [facility] EOSINOPHIL ABSOLUTE 0.20 0.00 - 0.70 K/uL 04/26/2015 6:[address] [facility] BASOPHILS ABSOLUTE 0.05 0.00 - 0.20 K/uL 04/26/2015 6:[address] [facility] IMMATURE GRANULOCYTES 1 0 - 2 % 04/26/2015 6:[address] [facility] IMMATURE GRANULOCYTES ABSOLUTE 0.14(H) 0.00 - 0.10 K/uL 04/26/2015 6:[address] [facility] Blood Collection / Unknown 04/26/2015 3:30 AM FLASHER ADJUSTER 04/26/2015 5:29 AM FLASHER ADJUSTER us Magdi Crawford MD HEMATOLOGY ORDERABLES Final Result [facility] CLIA# [id number] [facility] [place] [address] * (ABNORMAL) COMPREHENSIVE METABOLIC PANEL (04/26/2015 3:30 AM FLASHER ADJUSTER) Pathologist [facility] SODIUM 142 136 - 145 mmol/L 04/26/2015 6:[address] [facility] POTASSIUM 3.3(L) 3.5 - 5.1 mmol/L 04/26/2015 6:[address] [facility] CHLORIDE 105 98 - 107 mmol/L 04/26/2015 6:[address] [facility] CO2 31 21 - 32 mmol/L 04/26/2015 6:[address] [facility] CALCIUM 7.5(L) 8.4 - 10.1 mg/dL 04/26/2015 6:[address] [facility] BUN 13 7 - 17 mg/dL 04/26/2015 6:[address] [facility] CREATININE 0.34(L) 0.55 - 1.02 mg/dL 04/26/2015 6:[address] [facility] GLUCOSE 101 74 - 106 mg/dL 04/26/2015 6:[address] [facility] TOTAL PROTEIN 4.6(L) 6.4 - 8.2 g/dL 04/26/2015 6:[address] [facility] ALBUMIN 1.3(L) 3.4 - 5.0 g/dL 04/26/2015 6:[address] [facility] BILIRUBIN TOTAL 0.3 0.2 - 1.0 mg/dL 04/26/2015 6:[address] [facility] ALKALINE PHOSPHATASE 53 25 - 100 U/L 04/26/2015 6:[address] [facility] AST 13(L) 15 - 37 U/L 04/26/2015 6:[address] [facility] ALT 8(L) 13 - 61 U/L 04/26/2015 6:[address] [facility] GFR >60 >=60 mL/min/1. 73 sq meter 04/26/2015 6:[address] [facility] Comment: eGFR has not been [...] mL/min/1. 73 sq meter 04/26/2015 6:[address] [facility] ANION GAP 6(L) 8 - 16 mmol/L 04/26/2015 6:[address] [facility] Blood Collection / Unknown 04/26/2015 3:30 AM FLASHER ADJUSTER 04/26/2015 5:29 AM FLASHER ADJUSTER [facility] - 04/26/2015 6:24 AM FLASHER ADJUSTER The reference range for ALT has changed from its previous range of 12-78 U/L as of 03/31/2015. us Magdi Crawford MD CHEMISTRY ORDERABLES Final Result [facility] CLIA# [id number] [facility] [place] [address] documented in this encounter Visit Diagnoses Not on filedocumented in this encounter
--- OUTSIDE RECORDS SUMMARY | 2024-09-19 14:39 | XMS_ITS | Encounter Summary ---
Author Organization [employer] [facility] Address [address] [place] [address] Care Team Providers Care Chrome Tanning Drum Operator Name Role Phone Unavailable Primary Care Provider Unavailabl e Encounter Details Date Type Department Care Team (Late st Contact Info) Description 05/02/2015 Lab Requisition [facility] General Laboratory Services [address] [place] [phone] Timmy Kellogg MD [address] [place] [address] Social History Tobacco Use Types Packs/Day Years Used Date Smoking Tobacco: Never Assessed Comments Unknown Sex and Gender Information Value Date Recorded Sex Assigned at Not on file Legal Sex Female 4:17 AM PASTE MIXING SUPERVISOR Gender Identity Not on file Sexual Orientation Not on file documented as of this encounter Plan of Treatment Not on file documented as of this encounter Procedures Procedure Name Priority Date/Time Associated Diagnosis Comments CBC WITH DIFFERENTIAL Routine 05/02/2015 3:50 AM PASTE MIXING SUPERVISOR MAGNESIUM LEVEL Routine 05/02/2015 3:50 AM PASTE MIXING SUPERVISOR BASIC METABOLIC PANEL Routine 05/02/2015 3:50 AM PASTE MIXING SUPERVISOR documented in this encounter Results * MAGNESIUM LEVEL (05/02/2015 3:50 AM PASTE MIXING SUPERVISOR) MAGNESIUM 1.8 1.8 - 2.4 mg/dL 05/02/2015 6:16 AM PASTE MIXING SUPERVISOR [facility] [employer] [facility] Blood Collection / Unknown 05/02/2015 3:50 AM PASTE MIXING SUPERVISOR 05/02/2015 5:27 AM PASTE MIXING SUPERVISOR us Timmy Kellogg MD CHEMISTRY ORDERABLES Final Res ult [facility] CLIA# [id number] [address] [place] [address] * (ABNORMAL) CBC WITH DIFFERENTIAL (05/02/2015 3:50 AM PASTE MIXING SUPERVISOR) Pathologist [facility] WBC 9.2 4.8 - 10.8 K/uL 05/02/2015 5:[address] [facility] RBC 2.70(L) 4.20 - 5.40 M/uL 05/02/2015 5:[address] [facility] HEMOGLOBIN 7.6(L) 12.0 - 16.0 g/dL 05/02/2015 5:[address] [facility] HEMATOCRIT 24.0(L) 36.0 - 46.0 % 05/02/2015 5:[address] [facility] MCV 88.9 84.0 - 103.0 fL 05/02/2015 5:[address] [facility] MCH 28.1 27.0 - 34.0 pg 05/02/2015 5:[address] [facility] MCHC 31.7 30.0 - 35.0 g/dL 05/02/2015 5:[address] [facility] RDW 16.3(H) 11.0 - 14.5 % 05/02/2015 5:[address] [facility] RDW-STDEV 52.1 37.0 - 54.0 fL 05/02/2015 5:[address] [facility] PLATELETS 431 140 - 440 K/uL 05/02/2015 5:[address] [facility] MPV 9.7 8.9 - 12.8 fL 05/02/2015 5:54 AM [facility] [employer] [facility] NEUTROPHILS 68 42 - 75 % 05/02/2015 5:[address] [facility] LYMPHOCYTES 16(L) 24 - 44 % 05/02/2015 5:[address] [facility] MONOCYTES 11(H) 2 - 10 % 05/02/2015 5:[address] [facility] EOSINOPHILS 3 0 - 7 % 05/02/2015 5:[address] [facility] BASOPHILS 0 0 - 1 % 05/02/2015 5:[address] [facility] NEUTROPHIL ABSOLUTE 6.30 2.00 - 8.00 K/uL 05/02/2015 5:[address] [facility] LYMPHOCYTE ABSOLUTE 1.46 1.20 - 4.00 K/uL 05/02/2015 5:[address] [facility] MONOCYTE ABSOLUTE 1.05(H) 0.10 - 0.60 K/uL 05/02/2015 5:[address] [facility] EOSINOPHIL ABSOLUTE 0.29 0.00 - 0.70 K/uL 05/02/2015 5:[address] [facility] BASOPHILS ABSOLUTE 0.04 0.00 - 0.20 K/uL 05/02/2015 5:[address] [facility] IMMATURE GRANULOCYTES 1 0 - 2 % 05/02/2015 5:[address] [facility] IMMATURE GRANULOCYTES ABSOLUTE 0.08 0.00 - 0.10 K/uL 05/02/2015 5:[address] [facility] Blood Collection / Unknown 05/02/2015 3:50 AM PASTE MIXING SUPERVISOR 05/02/2015 5:27 AM [facility] Timmy Kellogg MD HEMATOLOGY ORDERABLES Final Re sult [facility] CLIA# [id number] [address] [place] [address] * (ABNORMAL) BASIC METABOLIC PANEL (05/02/2015 3:50 AM PASTE MIXING SUPERVISOR) SODIUM 141 136 - 145 mmol/L 05/02/2015 6:[address] [facility] POTASSIUM 3.2(L) 3.5 - 5.1 mmol/L 05/02/2015 6:[address] [facility] CHLORIDE 103 98 - 107 mmol/L 05/02/2015 6:[address] [facility] CO2 29 21 - 32 mmol/L 05/02/2015 6:[address] [facility] CALCIUM 7.9(L) 8.4 - 10.1 mg/dL 05/02/2015 6:[address] [facility] BUN 15 7 - 17 mg/dL 05/02/2015 6:[address] [facility] CREATININE 0.46(L) 0.55 - 1.02 mg/dL 05/02/2015 6:[address] [facility] GLUCOSE 126(H) 74 - 106 mg/dL 05/02/2015 6:[address] [facility] GFR >60 >=60 mL/min/1. 73 sq meter 05/02/2015 6:[address] [facility] Comment: eGFR has [...] mL/min/1. 73 sq meter 05/02/2015 6:[address] [facility] ANION GAP 9 8 - 16 mmol/L 05/02/2015 6:[address] [facility] Blood Collection / Unknown 05/02/2015 3:50 AM PASTE MIXING SUPERVISOR 05/02/2015 5:27 AM PASTE MIXING SUPERVISOR us Timmy Kellogg MD CHEMISTRY ORDERABLES Final Res ult [facility] CLIA# [id number] [address] [place] [address] documented in this encounter Visit Diagnoses Not on filedocumented in this encounter
--- OUTSIDE RECORDS SUMMARY | 2024-09-19 14:39 | XMS_ITS | Encounter Summary ---
Author Organization [facility] Address [address] [place] [address] Care Team Providers Care Manager Architecture Name Role Phone Unavailable Primary Care Provider Unavailabl e Encounter Details Date Type Department Care Team (Late st Contact Info) Description 04/24/2015 Lab Requisition [facility] Laboratory Services [address] [place] [address] Magdi Crawford MD [address] [place] [address] Social History Tobacco Use Types Packs/Day Years Used Date Smoking Tobacco: Never Assessed Comments Unknown Sex and Gender Information Value Date Recorded Sex Assigned at Not on file Legal Sex Female 4:17 AM ACADEMIC ASSISTANT Gender Identity Not on file Sexual Orientation Not on file documented as of this encounter Plan of Treatment Not on file documented as of this encounter Procedures Procedure Name Priority Date/Time Associated Diagnosis Comments URINALYSIS WITH REFLEX CULTURE Routine 04/24/2015 3:00 PM ACADEMIC ASSISTANT URINE CULTURE Routine 04/24/2015 3:00 PM ACADEMIC ASSISTANT documented in this encounter Results * (ABNORMAL) URINE CULTURE (04/24/2015 3:00 PM ACADEMIC ASSISTANT) CULTURE >= 100,000 cfu/mL Anjana albicans(A) 04/29/2015 8:07 AM ACADEMIC ASSISTANT [facility] Urine URINE SPECIMEN OBTAINED BY CLEAN CATCH PROCEDURE / Unknown Collection / Unknown 04/24/2015 3:00 PM ACADEMIC ASSISTANT 04/24/2015 5:01 PM ACADEMIC ASSISTANT Narrative Organism Antibiotic Method Susceptibility Anjana albicans FLUCONAZOLE <=1.0: Susceptible us Magdi Crawford MD MICROBIOLOGY - GENERAL JONATHAN RAI Final Result [facility] CLIA# [id number] [address] [place] [address] * (ABNORMAL) URINALYSIS WITH REFLEX CULTURE (04/24/2015 3:00 PM ACADEMIC ASSISTANT) COLOR UA Yellow Pale to dark yellow [...] UA 1+(A) Negative /hpf 04/24/2015 5:21 PM ACADEMIC ASSISTANT [facility] EPITHELIAL CELLS, URINE 0-5 0 - 5 /hpf 04/24/2015 5:21 PM [facility] YEAST, B[place] Present(A) Absent 04/24/2015 5:21 PM [facility] Urine Collection / Unknown 04/24/2015 3:00 PM ACADEMIC ASSISTANT 04/24/2015 5:01 PM ACADEMIC ASSISTANT Narrative [facility] - 04/24/2015 5:21 PM ACADEMIC ASSISTANT Based on results, a urine culture has been reflexed. us Magdi Crawford MD URINE ORDERABLES Final Resu lt [facility] CLIA# [id number] [address] [place] [address] documented in this encounter Visit Diagnoses Not on filedocumented in this encounter
--- OUTSIDE RECORDS SUMMARY | 2024-09-19 14:39 | XMS_ITS | Encounter Summary ---
Author Organization [facility] Address [address] [place] [address] Care Team Providers Care Well Service Floorperson Name Role Phone Unavailable Primary Care Provider Unavailabl e Encounter Details Date Type Department Care Team (Late st Contact Info) Description 04/27/2015 Lab Requisition [facility] Laboratory Services [address] [place] [address] Magdi Crawford MD [address] [place] [address] Social History Tobacco Use Types Packs/Day Years Used Date Smoking Tobacco: Never Assessed Comments Unknown Sex and Gender Information Value Date Recorded Sex Assigned at Not on file Legal Sex Female 4:17 AM SENIOR TECHNICAL WRITER Gender Identity Not on file Sexual Orientation Not on file documented as of this encounter Plan of Treatment Not on file documented as of this encounter Procedures Procedure Name Priority Date/Time Associated Diagnosis Comments VANCOMYCIN LEVEL TROUGH Routine 04/27/2015 2:15 PM SENIOR TECHNICAL WRITER documented in this encounter Results * (ABNORMAL) VANCOMYCIN LEVEL TROUGH (04/27/2015 2:15 PM SENIOR TECHNICAL WRITER) VANCOMYCIN, TROUGH 7.6(L) 10.0 - 20.0 ug/mL 04/27/2015 3:43 PM SENIOR TECHNICAL WRITER [facility] [employer] [facility] Blood Venipuncture - L ab Collect / Unknown 04/27/2015 2:15 PM SENIOR TECHNICAL WRITER 04/27/2015 3:10 PM SENIOR TECHNICAL WRITER us Magdi Crawford MD CHEMISTRY ORDERABLES Final Result [facility]# [id number] [address] [place] [address] documented in this encounter Visit Diagnoses Not on filedocumented in this encounter
--- OUTSIDE RECORDS SUMMARY | 2024-09-19 14:39 | XMS_ITS | Encounter Summary ---
Author Organization [employer] [facility] Address [address] [place] [address] Care Team Providers Care Child Adolescent Psychiatrist Name Role Phone Unavailable Primary Care Provider Unavailabl e Encounter Details Date Type Department Care Team (Latest Contact Info) Description 12/25/2002 Outpatient Historical [facility] Gurwinder Felipe Jr., MD [address] [place] [phone] Diverticulosis of colon (Primary Dx); HYPERTENSION NOS Social History Tobacco Use Types Packs/Day Years Used Date Smoking Tobacco: Never Assessed Comments Unknown Sex and Gender Information Value Date Recorded Sex Assigned at Not on file Legal Sex Female 4:17 AM CLIENT FINANCE ANALYST Gender Identity Not on file Sexual Orientation Not on file documented as of this encounter Plan of Treatment Not on file documented as of this encounter Visit Diagnoses Diagnosis Diverticulosis of colon- Primary Diverticulosis of colon (without mention of hemorrhage) Unspecified essential hypertension documented in this encounter
--- OUTSIDE RECORDS SUMMARY | 2024-09-19 14:39 | XMS_ITS | Encounter Summary ---
Author Organization [facility] Address [address] [place] [address] Care Team Providers Care Manual Arts Therapy Teacher Name Role Phone Unavailable Primary Care Provider Unavailabl e Encounter Details Date Type Department Care Team (Late st Contact Info) Description 05/10/2015 Lab Requisition [facility] Laboratory Services [address] [place] [address] Magdi Crawford MD [address] [place] [address] Social History Tobacco Use Types Packs/Day Years Used Date Smoking Tobacco: Never Assessed Comments Unknown Sex and Gender Information Value Date Recorded Sex Assigned at Not on file Legal Sex Female 4:17 AM FRAME ALIGNER Gender Identity Not on file Sexual Orientation Not on file documented as of this encounter Plan of Treatment Not on file documented as of this encounter Procedures Procedure Name Priority Date/Time Associated Diagnosis Comments PHOSPHORUS Routine 05/10/2015 7:00 AM FRAME ALIGNER documented in this encounter Results * PHOSPHORUS (05/10/2015 7:00 AM FRAME ALIGNER) PHOSPHORUS 3.1 2.5 - 4.9 mg/dL 05/10/2015 8:49 AM FRAME ALIGNER [facility] [employer] [facility] Blood Collection / Unknown 05/10/2015 7:00 AM FRAME ALIGNER 05/10/2015 8:02 AM FRAME ALIGNER us Magdi Crawford MD CHEMISTRY ORDERABLES Final Result [facility] [employer] [facility]# [id number] [address] [place] [address] documented in this encounter Visit Diagnoses Not on filedocumented in this encounter
--- OUTSIDE RECORDS SUMMARY | 2024-09-19 14:39 | XMS_ITS | Encounter Summary ---
Author Organization [facility] Address [address] [place] [address] Care Team Providers Care Back Digger Operator Name Role Phone Unavailable Primary Care Provider Unavailabl e Encounter Details Date Type Department Care Team (Latest Contact Info) Description 02/03/2002 Outpatient Historical [facility] Int [facility] [phone] Pankaj Jarrett MD NO ADDRESS ON FILE PRECORDIAL PAIN (Primary Dx) Social History Tobacco Use Types Packs/Day Years Used Date Smoking Tobacco: Never Assessed Comments Unknown Sex and Gender Information Value Date Recorded Sex Assigned at Not on file Legal Sex Female 4:17 AM DRILLING FOREMAN Gender Identity Not on file Sexual Orientation Not on file documented as of this encounter Plan of Treatment Not on file documented as of this encounter Visit Diagnoses Diagnosis Precordial pain- Primary documented in this encounter
--- OUTSIDE RECORDS SUMMARY | 2024-09-19 14:39 | XMS_ITS | Encounter Summary ---
Author Organization [employer] [facility] Address [address] [place] [address] Care Team Providers Care Slicing Machine Feeder Name Role Phone Unavailable Primary Care Provider Unavailabl e Encounter Details Date Type Department Care Team (Late st Contact Info) Description 04/04/2002 Outpatient Historical [facility] Matteo Inman, Gurwinder Mora MD [address] [place] [address] Social History Tobacco Use Types Packs/Day Years Used Date Smoking Tobacco: Never Assessed Comments Unknown Sex and Gender Information Value Date Recorded Sex Assigned at Not on file Legal Sex Female 4:17 AM PLATE SLITTER AND INSPECTOR Gender Identity Not on file Sexual Orientation Not on file documented as of this encounter Plan of Treatment Not on file documented as of this encounter Visit Diagnoses Not on filedocumented in this encounter
--- OUTSIDE RECORDS SUMMARY | 2024-09-19 14:39 | XMS_ITS | Encounter Summary ---
Author Organization [facility] Address [address] [place] [address] Care Team Providers Care Hydraulic Boom Operator Name Role Phone Unavailable Primary Care Provider Unavailabl e Encounter Details Date Type Department Care Team (Latest Contact Info) Description 01/28/2002 Outpatient Historical [facility] Cardiology- [place] [address] [place] [address] Jeramie Cartagena MD [address] [facility] [address] [place] [address] ANGINA PECTORIS NEC/NOS (Primary Dx); Benign hypertension Social History Tobacco Use Types Packs/Day Years Used Date Smoking Tobacco: Never Assessed Comments Unknown Sex and Gender Information Value Date Recorded Sex Assigned at Not on file Legal Sex Female 4:17 AM SUPPLY CHAIN ASSISTANT Gender Identity Not on file Sexual Orientation Not on file documented as of this encounter Plan of Treatment Not on file documented as of this encounter Visit Diagnoses Diagnosis Other and unspecified angina pectoris- Primary Benign hypertension Essential hypertension, benign documented in this encounter
--- OUTSIDE RECORDS SUMMARY | 2024-09-19 14:39 | XMS_ITS | Encounter Summary ---
Author Organization [employer] [facility] Address [address] [place] [address] Care Team Providers Care Sales Representative Adding Machines Name Role Phone Unavailable Primary Care Provider Unavailabl e Encounter Details Date Type Department Care Team (Latest Contact Info) Description 04/04/2002 Outpatient Historical [facility] Gurwinder Felipe Jr., MD [address] [place] [phone] HYPERTENSION NOS (Primary Dx); OSTEOPOROSIS NOS Social History Tobacco Use Types Packs/Day Years Used Date Smoking Tobacco: Never Assessed Comments Unknown Sex and Gender Information Value Date Recorded Sex Assigned at Not on file Legal Sex Female 4:17 AM ELECTRONIC REPAIR TROUBLESHOOTER Gender Identity Not on file Sexual Orientation Not on file documented as of this encounter Plan of Treatment Not on file documented as of this encounter Visit Diagnoses Diagnosis Unspecified essential hypertension- Primary Osteoporosis, unspecified documented in this encounter
--- OUTSIDE RECORDS SUMMARY | 2024-09-19 14:39 | XMS_ITS | Encounter Summary ---
Author Organization [employer] [facility] Address [address] [place] [address] Care Team Providers Care Furnace Mason Name Role Phone Unavailable Primary Care Provider Unavailabl e Encounter Details Date Type Department Care Team (Latest Contact Info) Description 12/19/2002 Outpatient Historical [facility] Gurwinder Felipe Jr., MD [address] [place] [phone] Gynecologic examination (Primary Dx); ABN FIND-STOOL CONTENTS-OCC BLOOD; NEOPLASM NOS, SITE NEC; SCREENING MAL NEOP-COLON Social History Tobacco Use Types Packs/Day Years Used Date Smoking Tobacco: Never Assessed Comments Unknown Sex and Gender Information Value Date Recorded Sex Assigned at Not on file Legal Sex Female 4:17 AM SLEEVER Gender Identity Not on file Sexual Orientation [...]
--- OUTSIDE RECORDS SUMMARY | 2024-09-19 14:39 | XMS_ITS | Encounter Summary ---
Author Organization [facility] Address [address] [place] [address] Care Team Providers Care Sandblaster Paint Sprayer Name Role Phone Unavailable Primary Care Provider Unavailabl e Encounter Details Date Type Department Care Team (Late st Contact Info) Description 04/25/[address] [facility] Laboratory Services [address] [place] [address] [place] [address] Magdi Crawford MD [address] [place] [address] Social History Tobacco Use Types Packs/Day Years Used Date Smoking Tobacco: Never Assessed Comments Unknown Sex and Gender Information Value Date Recorded Sex Assigned at Not on file Legal Sex Female 4:17 AM MANAGER INTERNET Gender Identity Not on file Sexual Orientation Not on file documented as of this encounter Plan of Treatment Not on file documented as of this encounter Procedures Procedure Name Priority Date/Time Associated Diagnosis Comments VANCOMYCIN LEVEL TROUGH Routine 04/25/2015 2:20 PM MANAGER INTERNET documented in this encounter Results * (ABNORMAL) VANCOMYCIN LEVEL TROUGH (04/25/2015 2:20 PM MANAGER INTERNET) VANCOMYCIN, TROUGH 4.5(LL) 10.0 - 20.0 ug/mL 04/25/2015 3:14 PM MANAGER INTERNET [facility] Comment:Critical value. Resu lts called to jose niño by CARA SCHMITT at 3:14 PM on 04/25/2015 and read back verified. Blood Collection / Unknown 04/25/2015 2:20 PM MANAGER INTERNET 04/25/2015 2:40 PM MANAGER INTERNET us Magdi Crawford MD CHEMISTRY ORDERABLES Final Result Performing Organization Address City/State/[facility] Co de Phone Number [facility]# [id number] [address] [place] [address] documented in this encounter Visit Diagnoses Not on filedocumented in this encounter
--- OUTSIDE RECORDS SUMMARY | 2024-09-19 14:39 | XMS_ITS | Encounter Summary ---
Author Organization [employer] [facility] Address [address] [place] [address] Care Team Providers Care Mucker Cofferdam Name Role Phone Unavailable Primary Care Provider Unavailabl e Encounter Details Date Type Department Care Team (Late st Contact Info) Description 04/24/2015 Lab Requisition [facility] General Laboratory Services [address] [place] [phone] Timmy Kellogg MD [address] [place] [address] Social History Tobacco Use Types Packs/Day Years Used Date Smoking Tobacco: Never Assessed Comments Unknown Sex and Gender Information Value Date Recorded Sex Assigned at Not on file Legal Sex Female 4:17 AM WORKERS COMPENSATION SPECIALIST Gender Identity Not on file Sexual Orientation Not on file documented as of this encounter Plan of Treatment Not on file documented as of this encounter Procedures Procedure Name Priority Date/Time Associated Diagnosis Comments CBC WITH DIFFERENTIAL Routine 04/24/2015 3:05 AM WORKERS COMPENSATION SPECIALIST BASIC METABOLIC PANEL Routine 04/24/2015 3:05 AM WORKERS COMPENSATION SPECIALIST documented in this encounter Results * (ABNORMAL) BASIC METABOLIC PANEL (04/24/2015 3:05 AM WORKERS COMPENSATION SPECIALIST) SODIUM 141 136 - 145 mmol/L 04/24/2015 5:40 AM WORKERS COMPENSATION SPECIALIST [facility] POTASSIUM 3.6 3.5 - 5.1 mmol/L 04/24/2015 5:40 AM WORKERS COMPENSATION SPECIALIST [facility] CHLORIDE 106 98 - 107 mmol/L 04/24/2015 5:40 AM WORKERS COMPENSATION SPECIALIST [facility] CO2 28 21 - 32 mmol/L 04/24/2015 5:40 AM [facility] CALCIUM 7.3(L) 8.4 - 10.1 mg/dL 04/24/2015 5:40 AM [facility] BUN 12 7 - 17 mg/dL 04/24/2015 5:40 AM [facility] CREATININE 0.32(L) 0.55 - 1.02 mg/dL 04/24/2015 5:40 AM [facility] GLUCOSE 145(H) 74 - 106 mg/dL 04/24/2015 5:40 AM [facility] GFR >60 >=60 mL/min/1. 73 sq meter 04/24/2015 5:40 AM [facility] Comment: eGFR has [...] mL/min/1. 73 sq meter 04/24/2015 5:40 AM [facility] ANION GAP 7(L) 8 - 16 mmol/L 04/24/2015 5:40 AM [facility] Blood Collection / Unknown 04/24/2015 3:05 AM WORKERS COMPENSATION SPECIALIST 04/24/2015 5:03 AM [facility] us Timmy Kellogg MD CHEMISTRY ORDERABLES Final Res ult [facility] CLIA# [id number] [address] [place] [address] * (ABNORMAL) CBC WITH DIFFERENTIAL (04/24/2015 3:05 AM [facility]) WBC 19.3(H) 4.8 - 10.8 K/uL 04/24/2015 5:29 AM [facility] RBC 2.72(L) 4.20 - 5.40 M/uL 04/24/2015 5:29 AM [facility] HEMOGLOBIN 8.1(L) 12.0 - 16.0 g/dL 04/24/2015 5:29 AM [facility] HEMATOCRIT 25.1(L) 36.0 - 46.0 % 04/24/2015 5:29 AM [facility] MCV 92.3 84.0 - 103.0 fL 04/24/2015 5:29 AM [facility] MCH 29.8 27.0 - 34.0 pg 04/24/2015 5:29 AM [facility] MCHC 32.3 30.0 - 35.0 g/dL 04/24/2015 5:29 AM [facility] RDW 16.7(H) 11.0 - 14.5 % 04/24/2015 5:29 AM [facility] RDW-STDEV 54.7(H) 37.0 - 54.0 fL 04/24/2015 5:29 AM [facility] PLATELETS 449(H) 140 - 440 K/uL 04/24/2015 5:29 AM [facility] MPV 10.4 8.9 - 12.8 fL 04/24/2015 5:29 AM [facility] NEUTROPHILS 87(H) 42 - 75 % 04/24/2015 5:29 AM [facility] LYMPHOCYTES 4(L) 24 - 44 % 04/24/2015 5:29 AM [facility] MONOCYTES 6 2 - 10 % 04/24/2015 5:29 AM [facility] EOSINOPHILS 1 0 - 7 % 04/24/2015 5:29 AM [facility] BASOPHILS 0 0 - 1 % 04/24/2015 5:29 AM [facility] NEUTROPHIL ABSOLUTE 16.83(H) 2.00 - 8.00 K/uL 04/24/2015 5:29 AM [facility] LYMPHOCYTE ABSOLUTE 0.82(L) 1.20 - 4.00 K/uL 04/24/2015 5:29 AM [facility] MONOCYTE ABSOLUTE 1.12(H) 0.10 - 0.60 K/uL 04/24/2015 5:29 AM [facility] EOSINOPHIL ABSOLUTE 0.19 0.00 - 0.70 K/uL 04/24/2015 5:29 AM [facility] BASOPHILS ABSOLUTE 0.05 0.00 - 0.20 K/uL 04/24/2015 5:29 AM [facility] IMMATURE GRANULOCYTES 2 0 - 2 % 04/24/2015 5:29 AM [facility] IMMATURE GRANULOCYTES ABSOLUTE 0.33(H) 0.00 - 0.10 K/uL 04/24/2015 5:29 AM [facility] Blood Collection / Unknown 04/24/2015 3:05 AM WORKERS COMPENSATION SPECIALIST 04/24/2015 5:03 AM WORKERS COMPENSATION SPECIALIST us Timmy Kellogg MD HEMATOLOGY ORDERABLES Final Re sult [facility] CLIA# [id number] [address] [place] [address] documented in this encounter Visit Diagnoses Not on filedocumented in this encounter
--- OUTSIDE RECORDS SUMMARY | 2024-09-19 14:39 | XMS_ITS | Encounter Summary ---
[facility] Organization [facility] Address [address] [place] [address] Care Team Providers Care Oil Well Services Superintendent Name Role Phone Unavailable Primary Care Provider Unavailabl e Encounter Details Date Type Department Care Team (Late st Contact Info) Description 05/17/2015 Lab Requisition [facility] Laboratory Services [facility] [address] [place] [address] Magdi Crawford MD [address] [place] [address] Social History Tobacco Use Types Packs/Day Years Used Date Smoking Tobacco: Never Assessed Comments Unknown Sex and Gender Information Value Date Recorded Sex Assigned at Not on file Legal Sex Female 4:17 AM TANK HOUSE OPERATOR Gender Identity Not on file Sexual Orientation Not on file documented as of this encounter Plan of Treatment Not on file documented as of this encounter Procedures Procedure Name Priority Date/Time Associated Diagnosis Comments PHOSPHORUS Routine 05/17/2015 3:30 AM TANK HOUSE OPERATOR MAGNESIUM LEVEL Routine 05/17/2015 3:30 AM TANK HOUSE OPERATOR documented in this encounter Results * PHOSPHORUS (05/17/2015 3:30 AM TANK HOUSE OPERATOR) PHOSPHORUS 3.9 2.5 - 4.9 mg/dL 05/17/2015 8:49 AM TANK HOUSE OPERATOR [facility] Blood Venipuncture - Floor Collect / Unknown 05/17/2015 3:30 AM TANK HOUSE OPERATOR 05/17/2015 8:28 AM TANK HOUSE OPERATOR us Magdi Crawford MD CHEMISTRY ORDERABLES Final Result Performing Organization Address City/[facility]/ZIP Co de Phone Number [facility] CLIA# [id number] [address] [place], [place] [id number] * MAGNESIUM LEVEL (05/17/2015 3:30 AM TANK HOUSE OPERATOR) MAGNESIUM 1.9 1.8 - 2.4 mg/dL 05/17/2015 8:49 AM TANK HOUSE OPERATOR [facility] Blood Venipuncture - Floor Collect / Unknown 05/17/2015 3:30 AM TANK HOUSE OPERATOR 05/17/2015 8:28 AM TANK HOUSE OPERATOR us Magdi Crawford MD CHEMISTRY ORDERABLES Final Result Performing Organization Address [facility] Co de Phone Number [facility] CLIA# [id number] [address] [place] [address] documented in this encounter Visit Diagnoses Not on filedocumented in this encounter
--- OUTSIDE RECORDS SUMMARY | 2024-09-19 14:40 | XMS_ITS | Encounter Summary ---
Author Organization [facility] Address [address] [place] [address] Care Team Providers Care Laboratory Technical Specialist Name Role Phone Unavailable Primary Care Provider Unavailabl e Encounter Details Date Type Department Care Team (Latest Contact Info) Description 02/22/2000 Outpatient Historical [facility] Gurwinder Felipe Jr., MD [address] [place] [phone] Need vaccination-viral disease (Primary Dx) Social History Tobacco Use Types Packs/Day Years Used Date Smoking Tobacco: Never Assessed Comments Unknown Sex and Gender Information Value Date Recorded Sex Assigned at Not on file Legal Sex Female 4:17 AM SEWING ROOM SUPERVISOR Gender Identity Not on file Sexual Orientation Not on file documented as of this encounter Plan of Treatment Not on file documented as of this encounter Visit Diagnoses Diagnosis Need vaccination-viral disease- Primary Need for prophylactic vaccination and inoculation against other viral diseases documented in this encounter
--- OUTSIDE RECORDS SUMMARY | 2024-09-19 14:40 | XMS_ITS | Encounter Summary ---
Author Organization [id number] [facility] Address [address] [place] [address] Care Team Providers Care Keyboard Teacher Name Role Phone Unavailable Primary Care Provider Unavailabl e Encounter Details Date Type Department Care Team (Latest Contact Info) Description 03/28/2001 Outpatient Historical [facility] Matteo Inman, Gurwinder Mora MD [address] [place] [phone] ACUTE SINUSITIS NOS (Primary Dx); HYPERTENSION NOS; ACUTE URI NOS; OSTEOPOROSIS NOS Social History Tobacco Use Types Packs/Day Years Used Date Smoking Tobacco: Never Assessed Comments Unknown Sex and Gender Information Value Date Recorded Sex Assigned at Not on file Legal Sex Female 4:17 AM MANAGER FRONT OFFICE Gender Identity Not on file Sexual Orientation Not on file documented as of this encounter Plan of Treatment Not on file documented as of this encounter Visit Diagnoses Diagnosis Acute sinusitis, unspecified- Primary Unspecified essential hypertension Acute upper respiratory infections of unspecified site Osteoporosis, unspecified documented in this encounter
--- OUTSIDE RECORDS SUMMARY | 2024-09-19 14:40 | XMS_ITS | Encounter Summary ---
Author Organization [email or web address] [facility] Address [address] [place] [address] Care Team Providers Care Pipe Liner Name Role Phone Unavailable Primary Care Provider Unavailabl e Encounter Details Date Type Department Care Team (Latest Contact Info) Description 03/03/1999 Outpatient Historical [facility] Gurwinder Felipe Jr., MD [address] [place] [phone] Acute upper respiratory infections of unspecified site (Primary Dx); Unspecified asthma(493.90) Social History Tobacco Use Types Packs/Day Years Used Date Smoking Tobacco: Never Assessed Comments Unknown Sex and Gender Information Value Date Recorded Sex Assigned at Not on file Legal Sex Female 4:17 AM CRUCIBLE FURNACE TENDER Gender Identity Not on file Sexual Orientation Not on file documented as of this encounter Plan of Treatment Not on file documented as of this encounter Visit Diagnoses Diagnosis Acute upper respiratory infections of unspecified site- Primary Unspecified asthma(493.90) Unspecified asthma documented in this encounter
--- OUTSIDE RECORDS SUMMARY | 2024-09-19 14:40 | XMS_ITS | Encounter Summary ---
Author Organization [employer] [facility] Address [address] [place] [address] Care Team Providers Care Drying Oven Attendant Name Role Phone Unavailable Primary Care Provider Unavailabl e Encounter Details Date Type Department Care Team (Latest Contact Info) Description 04/21/1999 Outpatient Historical [facility] Matteo Inman, Gurwinder Mora MD [address] [place] [phone] Acute sinusitis, unspecified (Primary Dx) Social History Tobacco Use Types Packs/Day Years Used Date Smoking Tobacco: Never Assessed Comments Unknown Sex and Gender Information Value Date Recorded Sex Assigned at Not on file Legal Sex Female 4:17 AM SPRAY WORKER Gender Identity Not on file Sexual Orientation Not on file documented as of this encounter Plan of Treatment Not on file documented as of this encounter Visit Diagnoses Diagnosis Acute sinusitis, unspecified- Primary documented in this encounter
--- OUTSIDE RECORDS SUMMARY | 2024-09-19 14:40 | XMS_ITS | Encounter Summary ---
Author Organization [facility] Address [address] [place] [address] Care Team Providers Care Temperer Name Role Phone Unavailable Primary Care Provider Unavailabl e Encounter Details Date Type Department Care Team (Late st Contact Info) Description 05/05/2015 Lab Requisition [facility] Laboratory Services [address] [place] [address] [place] [address] Magdi Crawford MD [address] [place] [address] Social History Tobacco Use Types Packs/Day Years Used Date Smoking Tobacco: Never Assessed Comments Unknown Sex and Gender Information Value Date Recorded Sex Assigned at Not on file Legal Sex Female 4:17 AM POLICE STENOGRAPHER Gender Identity Not on file Sexual Orientation Not on file documented as of this encounter Plan of Treatment Not on file documented as of this encounter Visit Diagnoses Not on filedocumented in this encounter
--- OUTSIDE RECORDS SUMMARY | 2024-09-19 14:40 | XMS_ITS | Clinical Summary ---
Author Organization [employer] [facility] Address [address] Attn: Epic Prelude ADT [place] [address] Care Team Providers Care Customer Business Manager Name Role Phone Unavailable Primary Care Provider Unavailabl e Immunizations Immunization Administration Dates Next Due Hepatitis B Vaccine 01/12/2000 Influenza Seasonal Unspecified Formulation IM Social History Tobacco Use Types Packs/Day Years Used Date Smoking Tobacco: Never Assessed Comments Unknown Sex and Gender Information Value Date Recorded Sex Assigned at Not on file Legal Sex Female 4:17 AM LAB TECHNOLOGIST Gender Identity Not on file Sexual Orientation Not on file Plan of Treatment Health Maintenance Due Date Last Done Comments DTAP/TDAP/TD VACCINES (1 - Tdap) 1965 PNEUMOCOCCAL VACCINE 50+ YEARS (1 of 1 - PCV) 12/21/18 97 ZOSTER VACCINE (1 of 2) 1996 OSTEOPOROSIS SCREENING 12/22/2011 RSV VACCINE (60+ or ) (1 - 1-dose 75+ series) 2021 INFLUENZA VACCINE (#1) 2023 02/22/2000
--- OUTSIDE RECORDS SUMMARY | 2024-09-19 14:40 | XMS_ITS | Encounter Summary ---
Author Organization [place] [facility] Address [address] [place] [address] Care Team Providers Care Flakeboard Line Tender Name Role Phone Unavailable Primary Care Provider Unavailabl e Encounter Details Date Type Department Care Team (Late st Contact Info) Description 05/03/2015 Lab Requisition [facility] Laboratory Services [place] [address] [place] [address] Magdi Crawford MD [address] [place] [address] Social History Tobacco Use Types Packs/Day Years Used Date Smoking Tobacco: Never Assessed Comments Unknown Sex and Gender Information Value Date Recorded Sex Assigned at Not on file Legal Sex Female 4:17 AM HAND II THERMAL CUTTER Gender Identity Not on file Sexual Orientation Not on file documented as of this encounter Plan of Treatment Not on file documented as of this encounter Procedures Procedure Name Priority Date/Time Associated Diagnosis Comments CBC WITH DIFFERENTIAL Routine 05/03/2015 3:50 AM HAND II THERMAL CUTTER VITAMIN D 25 HYDROXY Routine 05/03/2015 3:50 AM HAND II THERMAL CUTTER PHOSPHORUS Routine 05/03/2015 3:50 AM HAND II THERMAL CUTTER PTH INTACT Routine 05/03/2015 3:50 AM HAND II THERMAL CUTTER MAGNESIUM LEVEL Routine 05/03/2015 3:50 AM HAND II THERMAL CUTTER COMPREHENSIVE METABOLIC PANEL Routine 05/03/2015 3:50 AM HAND II THERMAL CUTTER documented in this encounter Results * (ABNORMAL) VITAMIN D 25 HYDROXY (05/03/2015 3:50 AM HAND II THERMAL CUTTER) VITAMIN D TOTAL (25OH) 14(L) 30 - 100 ng/ml 05/03/2015 6:41 AM HAND II THERMAL CUTTER [facility] Blood Collection / Unknown 05/03/2015 3:50 AM HAND II THERMAL CUTTER 05/03/2015 5:45 AM HAND II THERMAL CUTTER Narrative [facility] - 05/03/2015 6:41 AM HAND II THERMAL CUTTER Interpretive Data Chart: Deficient: 0 - 20 ng/ml Insufficient: 21 - 29 ng/ml Sufficient: 30 - 100 ng/ml Increased Risk of Hypercalciuria: >100 ng/ml Toxic: >150 ng/ml Magdi Crawford MD CHEMISTRY ORDERABLES Final Result Performing Organization Address [facility] Co de Phone Number [facility] CLIA# [id number] [address] [place] [address] * PTH INTACT (05/03/2015 3:50 AM HAND II THERMAL CUTTER) Pathologist [facility] PTH INTACT 68.3 14.0 - 72.0 pg/mL 05/03/2015 6:32 AM [facility] Blood Collection / Unknown 05/03/2015 3:50 AM HAND II THERMAL CUTTER 05/03/2015 5:45 AM HAND II THERMAL CUTTER us Magdi Crawford MD CHEMISTRY ORDERABLES Final Result Performing Organization Address City/[facility] Co de Phone Number [facility] CLIA# [id number] [address] [place] [address] * PHOSPHORUS (05/03/2015 3:50 AM HAND II THERMAL CUTTER) Pathologist [facility] PHOSPHORUS 2.5 2.5 - 4.9 mg/dL 05/03/2015 6:38 AM [facility] Blood Collection / Unknown 05/03/2015 3:50 AM HAND II THERMAL CUTTER 05/03/2015 5:45 AM HAND II THERMAL CUTTER us Magdi Crawford MD CHEMISTRY ORDERABLES Final Result Performing Organization Address [facility]/ZIP Co de Phone Number [facility] CLIA# [id number] [address] [place] [address] * MAGNESIUM LEVEL (05/03/2015 3:50 AM HAND II THERMAL CUTTER) Pathologist [facility] MAGNESIUM 1.8 1.8 - 2.4 mg/dL 05/03/2015 6:38 AM [facility] Blood Collection / Unknown 05/03/2015 3:50 AM HAND II THERMAL CUTTER 05/03/2015 5:45 AM HAND II THERMAL CUTTER Magdi Crawford MD CHEMISTRY ORDERABLES Final Result Performing Organization Address [facility] de Phone Number [facility] CLIA# [id number] [address] [place] [address] * (ABNORMAL) CBC WITH DIFFERENTIAL (05/03/2015 3:50 AM HAND II THERMAL CUTTER) [facility] WBC 10.1 4.8 - 10.8 K/uL 05/03/2015 6:00 AM [facility] RBC 2.71(L) 4.20 - 5.40 M/uL 05/03/2015 6:00 AM [facility] HEMOGLOBIN 7.5(L) 12.0 - 16.0 g/dL 05/03/2015 6:00 AM [facility] HEMATOCRIT 24.1(L) 36.0 - 46.0 % 05/03/2015 6:00 AM [facility] MCV 88.9 84.0 - 103.0 fL 05/03/2015 6:00 AM [facility] MCH 27.7 27.0 - 34.0 pg 05/03/2015 6:00 AM [facility] MCHC 31.1 30.0 - 35.0 g/dL 05/03/2015 6:00 AM [facility] RDW 16.4(H) 11.0 - 14.5 % 05/03/2015 6:00 AM [facility] RDW-STDEV 52.8 37.0 - 54.0 fL 05/03/2015 6:00 AM [facility] PLATELETS 409 140 - 440 K/uL 05/03/2015 6:00 AM [facility] MPV 9.9 8.9 - 12.8 fL 05/03/2015 6:00 AM [facility] NEUTROPHILS 73 42 - 75 % 05/03/2015 6:00 AM [facility] LYMPHOCYTES 13(L) 24 - 44 % 05/03/2015 6:00 AM [facility] MONOCYTES 10 2 - 10 % 05/03/2015 6:00 AM [facility] EOSINOPHILS 4 0 - 7 % 05/03/2015 6:00 AM [facility] BASOPHILS 0 0 - 1 % 05/03/2015 6:00 AM [facility] NEUTROPHIL ABSOLUTE 7.39 2.00 - 8.00 K/uL 05/03/2015 6:00 AM [facility] LYMPHOCYTE ABSOLUTE 1.28 1.20 - 4.00 K/uL 05/03/2015 6:00 AM [facility] MONOCYTE ABSOLUTE 1.01(H) 0.10 - 0.60 K/uL 05/03/2015 6:00 AM [facility] EOSINOPHIL ABSOLUTE 0.35 0.00 - 0.70 K/uL 05/03/2015 6:00 AM [facility] BASOPHILS ABSOLUTE 0.03 0.00 - 0.20 K/uL 05/03/2015 6:00 AM [facility] IMMATURE GRANULOCYTES 1 0 - 2 % 05/03/2015 6:00 AM [facility] IMMATURE GRANULOCYTES ABSOLUTE 0.07 0.00 - 0.10 K/uL 05/03/2015 6:00 AM [facility] Blood Collection / Unknown 05/03/2015 3:50 AM [facility] 05/03/2015 5:45 AM HAND II THERMAL CUTTER us Magdi Crawford MD HEMATOLOGY ORDERABLES Final Result [facility] CLIA# [id number] [facility] [place] [address] * (ABNORMAL) COMPREHENSIVE METABOLIC PANEL (05/03/2015 3:50 AM HAND II THERMAL CUTTER) SODIUM 140 136 - 145 mmol/L 05/03/2015 6:41 AM [facility] POTASSIUM 3.7 3.5 - 5.1 mmol/L 05/03/2015 6:41 AM [facility] CHLORIDE 105 98 - 107 mmol/L 05/03/2015 6:41 AM [facility] CO2 30 21 - 32 mmol/L 05/03/2015 6:41 AM [facility] CALCIUM 7.7(L) 8.4 - 10.1 mg/dL 05/03/2015 6:41 AM [facility] BUN 14 7 - 17 mg/dL 05/03/2015 6:41 AM [facility] CREATININE 0.38(L) 0.55 - 1.02 mg/dL 05/03/2015 6:41 AM [facility] GLUCOSE 126(H) 74 - 106 mg/dL 05/03/2015 6:41 AM [facility] TOTAL PROTEIN 5.4(L) 6.4 - 8.2 g/dL 05/03/2015 6:41 AM [facility] ALBUMIN 1.6(L) 3.4 - 5.0 g/dL 05/03/2015 6:41 AM [facility] BILIRUBIN TOTAL 0.5 0.2 - 1.0 mg/dL 05/03/2015 6:41 AM [facility] ALKALINE PHOSPHATASE 69 25 - 100 U/L 05/03/2015 6:41 AM [facility] AST 10(L) 15 - 37 U/L 05/03/2015 6:41 AM [facility] ALT 9(L) 13 - 61 U/L 05/03/2015 6:41 AM [facility] GFR >60 >=60 mL/min/1. 73 sq meter 05/03/2015 6:41 AM [facility] [employer] [facility] Comment: eGFR has not [...] mL/min/1. 73 sq meter 05/03/2015 6:41 AM [facility] ANION GAP 5(L) 8 - 16 mmol/L 05/03/2015 6:41 AM [facility] Blood Collection / Unknown 05/03/2015 3:50 AM HAND II THERMAL CUTTER 05/03/2015 5:45 AM HAND II THERMAL CUTTER us Magdi Crawford MD CHEMISTRY ORDERABLES Final Result [facility] CLIA# [id number] [facility] [place] [address] documented in this encounter Visit Diagnoses Not on filedocumented in this encounter
--- OUTSIDE RECORDS SUMMARY | 2024-09-19 14:40 | XMS_ITS | Encounter Summary ---
Author Organization [facility] Address [address] [place] [address] Care Team Providers Care Mirror Machine Feeder Name Role Phone Unavailable Primary Care Provider Unavailabl e Encounter Details Date Type Department Care Team (Late st Contact Info) Description 05/05/2015 Lab Requisition [facility] Laboratory Services [address] [place] [address] [place] [address] Magdi Crawford MD [address] [place] [address] Social History Tobacco Use Types Packs/Day Years Used Date Smoking Tobacco: Never Assessed Comments Unknown Sex and Gender Information Value Date Recorded Sex Assigned at Not on file Legal Sex Female 4:17 AM GREEN HOUSE MANAGER Gender Identity Not on file Sexual Orientation Not on file documented as of this encounter Plan of Treatment Not on file documented as of this encounter Procedures Procedure Name Priority Date/Time Associated Diagnosis Comments CBC WITH DIFFERENTIAL Routine 05/05/2015 6:00 AM GREEN HOUSE MANAGER COMPREHENSIVE METABOLIC PANEL Routine 05/05/2015 6:00 AM GREEN HOUSE MANAGER documented in this encounter Results * (ABNORMAL) CBC WITH DIFFERENTIAL (05/05/2015 6:00 AM GREEN HOUSE MANAGER) WBC 9.6 4.8 - 10.8 K/uL 05/05/2015 7:28 AM GREEN HOUSE MANAGER [facility] RBC 3.05(L) 4.20 - 5.40 M/uL 05/05/2015 7:28 AM GREEN HOUSE MANAGER [facility] HEMOGLOBIN 8.5(L) 12.0 - 16.0 g/dL 05/05/2015 7:28 AM [facility] [employer] [facility] HEMATOCRIT 27.1(L) 36.0 - 46.0 % 05/05/2015 7:28 AM [facility] [employer] [facility] MCV 88.9 84.0 - 103.0 fL 05/05/2015 7:28 AM [facility] MCH 27.9 27.0 - 34.0 pg 05/05/2015 7:28 AM [facility] MCHC 31.4 30.0 - 35.0 g/dL 05/05/2015 7:28 AM [facility] [employer] [facility] RDW 16.4(H) 11.0 - 14.5 % 05/05/2015 7:28 AM [facility] RDW-STDEV 52.7 37.0 - 54.0 fL 05/05/2015 7:28 AM [facility] PLATELETS 367 140 - 440 K/uL 05/05/2015 7:28 AM [facility] [employer] [facility] MPV 10.7 8.9 - 12.8 fL 05/05/2015 7:28 AM [facility] NEUTROPHILS 78(H) 42 - 75 % 05/05/2015 7:28 AM [facility] LYMPHOCYTES 11(L) 24 - 44 % 05/05/2015 7:28 AM [facility] [employer] [facility] MONOCYTES 7 2 - 10 % 05/05/2015 7:28 AM [facility] [employer] [facility] EOSINOPHILS 3 0 - 7 % 05/05/2015 7:28 AM [facility] [employer] [facility] BASOPHILS 0 0 - 1 % 05/05/2015 7:28 AM [facility] [employer] [facility] NEUTROPHIL ABSOLUTE 7.44 2.00 - 8.00 K/uL 05/05/2015 7:28 AM [facility] LYMPHOCYTE ABSOLUTE 1.08(L) 1.20 - 4.00 K/uL 05/05/2015 7:28 AM [facility] [employer] [facility] MONOCYTE ABSOLUTE 0.67(H) 0.10 - 0.60 K/uL 05/05/2015 7:28 AM [facility] [employer] [facility] EOSINOPHIL ABSOLUTE 0.29 0.00 - 0.70 K/uL 05/05/2015 7:28 AM [facility] BASOPHILS ABSOLUTE 0.02 0.00 - 0.20 K/uL 05/05/2015 7:28 AM [facility] IMMATURE GRANULOCYTES 1 0 - 2 % 05/05/2015 7:28 AM [facility] IMMATURE GRANULOCYTES ABSOLUTE 0.11(H) 0.00 - 0.10 K/uL 05/05/2015 7:28 AM [facility] Blood Collection / Unknown 05/05/2015 6:00 AM GREEN HOUSE MANAGER 05/05/2015 7:23 AM GREEN HOUSE MANAGER us Magdi Crawford MD HEMATOLOGY ORDERABLES Final Result [facility] CLIA# [id number] [address] [place] [address] * (ABNORMAL) COMPREHENSIVE METABOLIC PANEL (05/05/2015 6:00 AM GREEN HOUSE MANAGER) SODIUM 140 136 - 145 mmol/L 05/05/2015 7:52 AM [facility] POTASSIUM 3.7 3.5 - 5.1 mmol/L 05/05/2015 7:52 AM [facility] CHLORIDE 103 98 - 107 mmol/L 05/05/2015 7:52 AM [facility] CO2 30 21 - 32 mmol/L 05/05/2015 7:52 AM [facility] CALCIUM 7.9(L) 8.4 - 10.1 mg/dL 05/05/2015 7:52 AM [facility] BUN 18(H) 7 - 17 mg/dL 05/05/2015 7:52 AM [facility] CREATININE 0.41(L) 0.55 - 1.02 mg/dL 05/05/2015 7:52 AM [facility] GLUCOSE 163(H) 74 - 106 mg/dL 05/05/2015 7:52 AM [facility] TOTAL PROTEIN 6.0(L) 6.4 - 8.2 g/dL 05/05/2015 7:52 AM [facility] ALBUMIN 1.8(L) 3.4 - 5.0 g/dL 05/05/2015 7:52 AM [facility] BILIRUBIN TOTAL 0.3 0.2 - 1.0 mg/dL 05/05/2015 7:52 AM [facility] ALKALINE PHOSPHATASE 107(H) 25 - 100 U/L 05/05/2015 7:52 AM [facility] AST 21 15 - 37 U/L 05/05/2015 7:52 AM [facility] ALT 14 13 - 61 U/L 05/05/2015 7:52 AM [facility] GFR >60 >=60 mL/min/1. 73 sq meter 05/05/2015 7:52 AM [facility] Comment: eGFR has [...] mL/min/1. 73 sq meter 05/05/2015 7:52 AM [facility] ANION GAP 7(L) 8 - 16 mmol/L 05/05/2015 7:52 AM [facility] Blood Collection / Unknown 05/05/2015 6:00 AM GREEN HOUSE MANAGER 05/05/2015 7:23 AM GREEN HOUSE MANAGER Magdi Crawford MD CHEMISTRY ORDERABLES Final Result [facility] CLIA# [id number] [address] [place] [address] documented in this encounter Visit Diagnoses Not on filedocumented in this encounter
--- OUTSIDE RECORDS SUMMARY | 2024-09-19 14:40 | XMS_ITS | Encounter Summary ---
Demographics Address PROCEDURES ANALYST [address] [place] [address] Home Phone Preferred Language Unknown Marital Status Unknown [employer] Affiliation Unknown Race Other Race Ethnic Group Other Race Author Organization [employer] [facility] Address [address] [place] [address] Support Name Relationship Address Phone Sarwat Peguero Personal Relationship PROCEDURES ANALYST [address] [place] [address] Care Team Providers Care Electrician Elevator Maintenance Name Role Phone Unavailable Primary Care Provider Unavailabl e Encounter Details Date Type Department Care Team (Latest Contact Info) Description 01/04/2001 Outpatient Historical [facility] Gurwinder Felipe Jr., MD [address] [place] [phone] Unspecified essential hypertension (Primary Dx); Volume depletion Social History Tobacco Use Types Packs/Day Years Used Date Smoking Tobacco: Never Assessed Comments Unknown Sex and Gender Information Value Date Recorded Sex Assigned at Not on file Legal Sex Female 4:17 AM CONSTRUCTION IRONWORKER Gender Identity Not on file Sexual Orientation Not on file documented as of this encounter Plan of Treatment Not on file documented as of this encounter Visit Diagnoses Diagnosis Unspecified essential hypertension- Primary Volume depletion documented in this encounter
--- OUTSIDE RECORDS SUMMARY | 2024-09-19 14:40 | XMS_ITS | Encounter Summary ---
Author Organization [employer] [facility] Address [address] [place] [address] Care Team Providers Care Mining Plant Operator Name Role Phone Unavailable Primary Care Provider Unavailabl e Encounter Details Date Type Department Care Team (Late st Contact Info) Description 04/29/2015 Lab Requisition [facility] Laboratory Services [address] [place] [address] Magdi Crawford MD [address] [place] [address] Social History Tobacco Use Types Packs/Day Years Used Date Smoking Tobacco: Never Assessed Comments Unknown Sex and Gender Information Value Date Recorded Sex Assigned at Not on file Legal Sex Female 4:17 AM GEL COATER Gender Identity Not on file Sexual Orientation Not on file documented as of this encounter Plan of Treatment Not on file documented as of this encounter Procedures Procedure Name Priority Date/Time Associated Diagnosis Comments CBC WITH DIFFERENTIAL Routine 04/29/2015 4:00 AM GEL COATER PHOSPHORUS Routine 04/29/2015 4:00 AM GEL COATER MAGNESIUM LEVEL Routine 04/29/2015 4:00 AM GEL COATER COMPREHENSIVE METABOLIC PANEL Routine 04/29/2015 4:00 AM GEL COATER documented in this encounter Results * (ABNORMAL) PHOSPHORUS (04/29/2015 4:00 AM GEL COATER) PHOSPHORUS 2.2(L) 2.5 - 4.9 mg/dL 04/29/2015 6:16 AM GEL COATER [facility] Blood Collection / Unknown 04/29/2015 4:00 AM GEL COATER 04/29/2015 5:24 AM GEL COATER us Magdi Crawford MD CHEMISTRY ORDERABLES Final Result Performing Organization Address [facility] Co de Phone Number [facility] CLIA# [id number] [address] [place] [address] * MAGNESIUM LEVEL (04/29/2015 4:00 AM GEL COATER) Pathologist [facility] MAGNESIUM 1.8 1.8 - 2.4 mg/dL 04/29/2015 6:16 AM [facility] Blood Collection / Unknown 04/29/2015 4:00 AM GEL COATER 04/29/2015 5:24 AM GEL COATER us Magdi Crawford MD CHEMISTRY ORDERABLES Final Result Performing Organization Address [facility] Co de Phone Number [facility] CLIA# [id number] [address] [place] [address] * (ABNORMAL) CBC WITH DIFFERENTIAL (04/29/2015 4:00 AM GEL COATER) Pathologist [facility] WBC 8.9 4.8 - 10.8 K/uL 04/29/2015 5:45 AM [facility] RBC 2.53(L) 4.20 - 5.40 M/uL 04/29/2015 5:45 AM [facility] HEMOGLOBIN 7.3(L) 12.0 - 16.0 g/dL 04/29/2015 5:45 AM [facility] HEMATOCRIT 23.1(L) 36.0 - 46.0 % 04/29/2015 5:45 AM [facility] MCV 91.3 84.0 - 103.0 fL 04/29/2015 5:45 AM [facility] MCH 28.9 27.0 - 34.0 pg 04/29/2015 5:45 AM [facility] MCHC 31.6 30.0 - 35.0 g/dL 04/29/2015 5:45 AM [facility] RDW 16.4(H) 11.0 - 14.5 % 04/29/2015 5:45 AM [facility] RDW-STDEV 53.0 37.0 - 54.0 fL 04/29/2015 5:45 AM [facility] PLATELETS 640(H) 140 - 440 K/uL 04/29/2015 5:45 AM [facility] MPV 9.6 8.9 - 12.8 fL 04/29/2015 5:45 AM [facility] NEUTROPHILS 71 42 - 75 % 04/29/2015 5:45 AM [facility] LYMPHOCYTES 11(L) 24 - 44 % 04/29/2015 5:45 AM [facility] MONOCYTES 12(H) 2 - 10 % 04/29/2015 5:45 AM [facility] EOSINOPHILS 4 0 - 7 % 04/29/2015 5:45 AM [facility] BASOPHILS 1 0 - 1 % 04/29/2015 5:45 AM [facility] NEUTROPHIL ABSOLUTE 6.30 2.00 - 8.00 K/uL 04/29/2015 5:45 AM [facility] LYMPHOCYTE ABSOLUTE 1.00(L) 1.20 - 4.00 K/uL 04/29/2015 5:45 AM [facility] MONOCYTE ABSOLUTE 1.05(H) 0.10 - 0.60 K/uL 04/29/2015 5:45 AM [facility] EOSINOPHIL ABSOLUTE 0.38 0.00 - 0.70 K/uL 04/29/2015 5:45 AM [facility] BASOPHILS ABSOLUTE 0.05 0.00 - 0.20 K/uL 04/29/2015 5:45 AM [facility] IMMATURE GRANULOCYTES 1 0 - 2 % 04/29/2015 5:45 AM [facility] IMMATURE GRANULOCYTES ABSOLUTE 0.11(H) 0.00 - 0.10 K/uL 04/29/2015 5:45 AM [facility] Blood Collection / Unknown 04/29/2015 4:00 AM GEL COATER 04/29/2015 5:24 AM GEL COATER us Magdi Crawford MD HEMATOLOGY ORDERABLES Final Result [facility] CLIA# [id number] [facility] [place] [address] * (ABNORMAL) COMPREHENSIVE METABOLIC PANEL (04/29/2015 4:00 AM GEL COATER) SODIUM 140 136 - 145 mmol/L 04/29/2015 6:16 AM [facility] POTASSIUM 3.2(L) 3.5 - 5.1 mmol/L 04/29/2015 6:16 AM [facility] CHLORIDE 105 98 - 107 mmol/L 04/29/2015 6:16 AM [facility] CO2 27 21 - 32 mmol/L 04/29/2015 6:16 AM [facility] CALCIUM 7.5(L) 8.4 - 10.1 mg/dL 04/29/2015 6:16 AM [facility] BUN 16 7 - 17 mg/dL 04/29/2015 6:16 AM [facility] CREATININE 0.46(L) 0.55 - 1.02 mg/dL 04/29/2015 6:16 AM [facility] GLUCOSE 127(H) 74 - 106 mg/dL 04/29/2015 6:16 AM [facility] TOTAL PROTEIN 4.9(L) 6.4 - 8.2 g/dL 04/29/2015 6:16 AM [facility] ALBUMIN 1.4(L) 3.4 - 5.0 g/dL 04/29/2015 6:16 AM [facility] BILIRUBIN TOTAL 0.3 0.2 - 1.0 mg/dL 04/29/2015 6:16 AM [facility] ALKALINE PHOSPHATASE 64 25 - 100 U/L 04/29/2015 6:16 AM [facility] AST 10(L) 15 - 37 U/L 04/29/2015 6:16 AM [facility] ALT 8(L) 13 - 61 U/L 04/29/2015 6:16 AM [facility] GFR >60 >=60 mL/min/1. 73 sq meter 04/29/2015 6:16 AM [facility] Comment: eGFR has not been validated for [...] mL/min/1. 73 sq meter 04/29/2015 6:16 AM [facility] ANION GAP 8 8 - 16 mmol/L 04/29/2015 6:16 AM [facility] Blood Collection / Unknown 04/29/2015 4:00 AM GEL COATER 04/29/2015 5:24 AM [facility] us Magdi Crawford MD CHEMISTRY ORDERABLES Final Result [facility] CLIA# [id number] [address] [place] [address] documented in this encounter Visit Diagnoses Not on filedocumented in this encounter
--- OUTSIDE RECORDS SUMMARY | 2024-09-19 14:40 | XMS_ITS | Encounter Summary ---
Author Organization [employer] [facility] Address [address] [place] [address] Care Team Providers Care Customer Quality Engineer Name Role Phone Unavailable Primary Care Provider Unavailabl e Encounter Details Date Type Department Care Team (Latest Contact Info) Description 07/27/1999 Outpatient Historical [facility] Gurwinder Felipe Jr., MD [facility] [place] [phone] Unspecified essential hypertension (Primary Dx); Allergic rhinitis, cause unspecified Social History Tobacco Use Types Packs/Day Years Used Date Smoking Tobacco: Never Assessed Comments Unknown Sex and Gender Information Value Date Recorded Sex Assigned at Not on file Legal Sex Female 4:17 AM FLOORING INSTALLER Gender Identity Not on file Sexual Orientation Not on file documented as of this encounter Plan of Treatment Not on file documented as of this encounter Visit Diagnoses Diagnosis Unspecified essential hypertension- Primary Allergic rhinitis, cause unspecified documented in this encounter
--- OUTSIDE RECORDS SUMMARY | 2024-09-19 14:40 | XMS_ITS | Encounter Summary ---
Author Organization [employer] [facility] Address [address] [place] [address] Care Team Providers Care Demand Planner Name Role Phone Unavailable Primary Care Provider Unavailabl e Encounter Details Date Type Department Care Team (Late st Contact Info) Description 05/06/2015 Lab Requisition [facility] Laboratory Services [address] [place] [address] Magdi Crawford MD [address] [place] [address] Social History Tobacco Use Types Packs/Day Years Used Date Smoking Tobacco: Never Assessed Comments Unknown Sex and Gender Information Value Date Recorded Sex Assigned at Not on file Legal Sex Female 4:17 AM ENVIRONMENTAL COMPLIANCE INSPECTOR Gender Identity Not on file Sexual Orientation Not on file documented as of this encounter Plan of Treatment Not on file documented as of this encounter Procedures Procedure Name Priority Date/Time Associated Diagnosis Comments CBC WITH DIFFERENTIAL Routine 05/06/2015 3:10 AM ENVIRONMENTAL COMPLIANCE INSPECTOR PHOSPHORUS Routine 05/06/2015 3:10 AM ENVIRONMENTAL COMPLIANCE INSPECTOR MAGNESIUM LEVEL Routine 05/06/2015 3:10 AM ENVIRONMENTAL COMPLIANCE INSPECTOR COMPREHENSIVE METABOLIC PANEL Routine 05/06/2015 3:10 AM ENVIRONMENTAL COMPLIANCE INSPECTOR documented in this encounter Results * PHOSPHORUS (05/06/2015 3:10 AM ENVIRONMENTAL COMPLIANCE INSPECTOR) PHOSPHORUS 3.3 2.5 - 4.9 mg/dL 05/06/2015 6:13 AM ENVIRONMENTAL COMPLIANCE INSPECTOR [facility] Blood Collection / Unknown 05/06/2015 3:10 AM ENVIRONMENTAL COMPLIANCE INSPECTOR 05/06/2015 5:15 AM ENVIRONMENTAL COMPLIANCE INSPECTOR us Magdi Crawford MD CHEMISTRY ORDERABLES Final Result Performing Organization Address [facility] Co de Phone Number [facility] CLIA# [id number] [address] [place] [address] * MAGNESIUM LEVEL (05/06/2015 3:10 AM ENVIRONMENTAL COMPLIANCE INSPECTOR) Pathologist [facility] MAGNESIUM 1.9 1.8 - 2.4 mg/dL 05/06/2015 6:13 AM [facility] Blood Collection / Unknown 05/06/2015 3:10 AM ENVIRONMENTAL COMPLIANCE INSPECTOR 05/06/2015 5:15 AM ENVIRONMENTAL COMPLIANCE INSPECTOR us Magdi Crawford MD CHEMISTRY ORDERABLES Final Result Performing Organization Address [facility] Co de Phone Number [facility] CLIA# [id number] [address] [place] [address] * (ABNORMAL) CBC WITH DIFFERENTIAL (05/06/2015 3:10 AM ENVIRONMENTAL COMPLIANCE INSPECTOR) [facility] WBC 9.2 4.8 - 10.8 K/uL 05/06/2015 5:55 AM [facility] RBC 3.06(L) 4.20 - 5.40 M/uL 05/06/2015 5:55 AM [facility] HEMOGLOBIN 8.3(L) 12.0 - 16.0 g/dL 05/06/2015 5:55 AM [facility] HEMATOCRIT 27.0(L) 36.0 - 46.0 % 05/06/2015 5:55 AM [facility] MCV 88.2 84.0 - 103.0 fL 05/06/2015 5:55 AM [facility] MCH 27.1 27.0 - 34.0 pg 05/06/2015 5:55 AM [facility] MCHC 30.7 30.0 - 35.0 g/dL 05/06/2015 5:55 AM [facility] RDW 16.4(H) 11.0 - 14.5 % 05/06/2015 5:55 AM [facility] RDW-STDEV 52.1 37.0 - 54.0 fL 05/06/2015 5:55 AM [facility] PLATELETS 435 140 - 440 K/uL 05/06/2015 5:55 AM [facility] MPV 10.7 8.9 - 12.8 fL 05/06/2015 5:55 AM [facility] NEUTROPHILS 69 42 - 75 % 05/06/2015 5:55 AM [facility] LYMPHOCYTES 16(L) 24 - 44 % 05/06/2015 5:55 AM [facility] MONOCYTES 8 2 - 10 % 05/06/2015 5:55 AM [facility] EOSINOPHILS 5 0 - 7 % 05/06/2015 5:55 AM [facility] BASOPHILS 0 0 - 1 % 05/06/2015 5:55 AM [facility] NEUTROPHIL ABSOLUTE 6.34 2.00 - 8.00 K/uL 05/06/2015 5:55 AM [facility] LYMPHOCYTE ABSOLUTE 1.48 1.20 - 4.00 K/uL 05/06/2015 5:55 AM [facility] MONOCYTE ABSOLUTE 0.76(H) 0.10 - 0.60 K/uL 05/06/2015 5:55 AM [facility] EOSINOPHIL ABSOLUTE 0.49 0.00 - 0.70 K/uL 05/06/2015 5:55 AM [facility] BASOPHILS ABSOLUTE 0.03 0.00 - 0.20 K/uL 05/06/2015 5:55 AM [facility] IMMATURE GRANULOCYTES 1 0 - 2 % 05/06/2015 5:55 AM [facility] IMMATURE GRANULOCYTES ABSOLUTE 0.12(H) 0.00 - 0.10 K/uL 05/06/2015 5:55 AM [facility] Blood Collection / Unknown 05/06/2015 3:10 AM ENVIRONMENTAL COMPLIANCE INSPECTOR 05/06/2015 5:15 AM ENVIRONMENTAL COMPLIANCE INSPECTOR us Magdi Crawford MD HEMATOLOGY ORDERABLES Final Result [facility] CLIA# [id number] [facility] [place] [address] * (ABNORMAL) COMPREHENSIVE METABOLIC PANEL (05/06/2015 3:10 AM ENVIRONMENTAL COMPLIANCE INSPECTOR) [facility] SODIUM 140 136 - 145 mmol/L 05/06/2015 6:13 AM [facility] POTASSIUM 3.8 3.5 - 5.1 mmol/L 05/06/2015 6:13 AM [facility] CHLORIDE 103 98 - 107 mmol/L 05/06/2015 6:13 AM [facility] CO2 30 21 - 32 mmol/L 05/06/2015 6:13 AM [facility] CALCIUM 7.9(L) 8.4 - 10.1 mg/dL 05/06/2015 6:13 AM [facility] BUN 20(H) 7 - 17 mg/dL 05/06/2015 6:13 AM [facility] CREATININE 0.51(L) 0.55 - 1.02 mg/dL 05/06/2015 6:13 AM [facility] GLUCOSE 144(H) 74 - 106 mg/dL 05/06/2015 6:13 AM [facility] TOTAL PROTEIN 6.0(L) 6.4 - 8.2 g/dL 05/06/2015 6:13 AM [facility] ALBUMIN 1.8(L) 3.4 - 5.0 g/dL 05/06/2015 6:13 AM [facility] BILIRUBIN TOTAL 0.2 0.2 - 1.0 mg/dL 05/06/2015 6:13 AM [facility] ALKALINE PHOSPHATASE 127(H) 25 - 100 U/L 05/06/2015 6:13 AM [facility] AST 43(H) 15 - 37 U/L 05/06/2015 6:13 AM [facility] ALT 37 13 - 61 U/L 05/06/2015 6:13 AM [facility] GFR >60 >=60 mL/min/1. 73 sq meter 05/06/2015 6:13 AM [facility] Comment: [...] mL/min/1. 73 sq meter 05/06/2015 6:13 AM [facility] ANION GAP 7(L) 8 - 16 mmol/L 05/06/2015 6:13 AM [facility] Blood Collection / Unknown 05/06/2015 3:10 AM ENVIRONMENTAL COMPLIANCE INSPECTOR 05/06/2015 5:15 AM ENVIRONMENTAL COMPLIANCE INSPECTOR us Magdi Crawford MD CHEMISTRY ORDERABLES Final Result [facility] CLIA# [id number] [address] [place] [address] documented in this encounter Visit Diagnoses Not on filedocumented in this encounter
--- OUTSIDE RECORDS SUMMARY | 2024-09-19 14:40 | XMS_ITS | Clinical Summary ---
Author Organization [facility] Address [address] [place] [address] Phone Care Team Providers Care Social Service Agency Director Name Role Phone Unavailable Primary Care Provider Unavailabl e Allergies No known active allergies Medications amiodarone (CORDARONE) 200 mg tablet Take 1 Tablet (200 mg) by mouth daily. 90 Tablet 3 Active traZODone (DESYREL) 50 mg tablet Take 1 Tablet (50 mg) by mouth daily at bedtime. Active levothyroxine 100 mcg tablet Take 1 Tablet (100 mcg) by mouth daily in the morning. Active albuterol sulfate HFA 90 mcg/actuation aerosol inhaler Take 2 Puffs by inhalation every 12 hours. Active Active Problems Problem Noted Date Diagnosed Date ICD (implantable cardioverter-defibrillator) in place 04/22/2024 Recurrent syncope 04/20/2024 Right bundle branch block 04/20/2024 Ventricular tachycardia 04/19/2024 Stroke-like episode 04/19/2024 Hiatal hernia 04/19/2024 Essential hypertension 04/19/2024 Hypothyroidism 04/19/2024 Restless leg syndrome 04/19/2024 VT (ventricular tachycardia) 04/16/2024 Encounters Date Type Department Care Team Description 09/09/2024 External Device Data ST[facility] ABSTRACTION Provider, Abstract 08/14/2024 External Device Data STL ABSTRACTION Provider, Abstract 08/13/2024 External Device Data ST[facility] ABSTRACTION Provider, Abstract 08/12/2024 External Device Data [facility] ABSTRACTION Provider, Abstract 08/05/2024 External Device Data [facility] ABSTRACTION Provider, Abstract 07/29/2024 External Device Data ST[facility] ABSTRACTION Provider, Abstract 07/16/2024 Telephone [facility] [address] [place] [phone] Cristel Eagle MD Confirm appointment (Called pt to convey [facility] customer service number and confirm appointment on 07/22/2024 at 1:15. If pt returns call, she needs to contact [facility] direct at to set up home monitoring, please confirm appt on 07/22 as well.) 07/08/2024 Telephone [place] [id number] [facility] [address] [place] [phone] Cristel Eagle MD Follow Up 06/24/2024 External Device Data STL ABSTRACTION Provider, Abstract 06/24/2024 External Device Data STL ABSTRACTION Provider, Abstract 06/24/2024 External Device Data STL ABSTRACTION Provider, Abstract from Last 3 Months Immunizations Immunization Administration Dates Next Due Hepatitis B Vaccine 01/12/2000 Influenza Seasonal Unspecified Formulation IM Social History Tobacco Use Types Packs/Day Years Used Date Smoking Tobacco: Never Smokeless Tobacco: Never Tobacco Cessation:Counseling Given: Not Answered Alcohol Use Standard Drinks/Week Comments Never 0 (1 standard drink = 0.6 oz pur e alcohol) Feeling Safe Answer Date Recorded Are you in a relationship wi th someone who hurts you emotionally and/or physically? No 04/19/2024 Food Insecurity Answer Date Recorded Patient needs follow up regardin 07/16/2024 Transportation Needs Answer Date Record ed Patient needs follow up regardin 07/16/2024 Housing Stability Answer Date Recorded Social/Environmental Concerns No concerns Utility Needs Answer Date Recorded Patient needs follow up regardin 07/16/2024 Comments Unknown Sex and Gender Information Value Date Recorded Sex Assigned at Not on file Legal Sex Female 9:48 AM APPLIQUE SEWER Gender Identity Not on file Sexual Orientation Not on file Last Filed Vital Signs Vital Sign Reading Time Taken Comments Blood Pressure 174/80 04/22/2024 12:15 PM APPLIQUE SEWER Pulse 70 04/22/2024 4:45 PM APPLIQUE SEWER Temperature 37 C (98.6 F) 04/22/2024 11:23 AM APPLIQUE SEWER Respiratory Rate 19 04/22/2024 4:45 PM APPLIQUE SEWER Oxygen Saturation 94% 04/22/2024 4:45 PM APPLIQUE SEWER Inhaled Oxygen Concentration - - Weight 55.3 kg (122 lb) 04/21/2024 11:20 PM APPLIQUE SEWER Height 152.4 cm (5') 04/19/2024 2:56 AM APPLIQUE SEWER Body Mass Index 23.83 04/19/2024 2:56 AM APPLIQUE SEWER Plan of Treatment Health Maintenance Due Date Last Done Comments DTAP/TDAP/TD VACCINES (1 - Tdap) 1965 PNEUMOCOCCAL VACCINE 50+ YEA RS (1 of 1 - PCV) 1996 ZOSTER VACCINE (1 of 2) 1996 OSTEOPOROSIS SCREENING 12/22/2011 RSV VACCINE (60+ or ) (1 - 1-dose 75+ series) 2021 INFLUENZA VACCINE (#1) 2023 01/09/2022, 1999 Medical Devices Implanted Type Area Offset Lithographic Press Operator Device Identifier Shelf Expiration Date Model / Serial / Lot Defib Icd Augusta Xt Mri [id number] Dual Chmbr Surescan [id number] - [id number] Implanted:Qty: 1 on 04/21/2024 by Cristel Eagle MD at [facility] Defibrillator N/A: Chest Wall [employer]- CARD RHYTHM MGMT [id number] 08/06/2025 [id number] / [id number] / Lead Pacing Capsure Fix Novus 45cm [id number] - [facility] - [id number] Implanted:Qty: 1 on 04/21/2024 by Cristel Eagle MD at [facility] Lead Left: Chest Wall [employer]- CRM - BULK BUY [id number] 01/02/2026 [id number] / [id number] 7V / Lead Sprint Quattro Secure-S 55cm [id number] - Csc - [id number] Implanted:Qty: 1 on 04/21/2024 by Cristel Eagle MD at [facility] Lead Left: Chest Wall [employer]- CRM - BULK BUY [id number] 02/21/2025 [id number] / [id number] / Insurance * Guarantor: Ivan Peguero Account Type Relation to Patient Date of Phone Billing Address Personal/Family Self 1945 [address] [place] [id number] [facility] [address] RX [employer] RX Member Subscriber Plan / Payer (Ef fective 2024-Present) Name:Ivan Peguero Relation to Subscriber:Self Name:Ivan Peguero Payer ID:Not on file Group ID:[id number] Type:RX Medicare Part D Address: [address] RX [employer] RX Member Subscriber Plan / Payer (Ef fective for All Dates) Name:Ivan Peguero Relation to Subscriber:Self Name:Ivan Peguero Payer ID:Not on file Group ID:[id number] Type:RX Commercial Address: [place] Advance Directives For more information, please contact: [phone] * Full Code (Latest Code Status on File) Date Activated Date Inactivated Comments 04/21/2024 5:10 PM 04/22/2024 7:07 PM * Full Code Date Activated Date Inactivated Comments 04/19/2024 3:01 AM 04/21/2024 5:10 PM
--- OUTSIDE RECORDS SUMMARY | 2024-09-19 14:40 | XMS_ITS | Encounter Summary ---
Author Organization [facility] Address [address] [place] [address] Care Team Providers Care Electronic Video Games Servicer Name Role Phone Unavailable Primary Care Provider Unavailabl e Encounter Details Date Type Department Care Team (Late st Contact Info) Description 05/09/2015 Lab Requisition [facility] Laboratory Services [address] [place] [address] [place] [address] Magdi Crawford MD [address] [place] [address] Social History Tobacco Use Types Packs/Day Years Used Date Smoking Tobacco: Never Assessed Comments Unknown Sex and Gender Information Value Date Recorded Sex Assigned at Not on file Legal Sex Female 4:17 AM SECURITY CONTROLS ASSESSOR Gender Identity Not on file Sexual Orientation Not on file documented as of this encounter Plan of Treatment Not on file documented as of this encounter Procedures Procedure Name Priority Date/Time Associated Diagnosis Comments C. DIFFICILE DETECTION Routine 05/09/2015 4:50 AM SECURITY CONTROLS ASSESSOR documented in this encounter Results * CLOSTRIDIUM DIFFICILE TOXIN (05/09/2015 4:50 AM SECURITY CONTROLS ASSESSOR) TOXIGENIC C DIFFICILE Not Detected Not Detected 05/09/2015 7:00 AM SECURITY CONTROLS ASSESSOR [facility] e27 [facility] Stool Collection / Unknown 05/09/2015 4:50 AM SECURITY CONTROLS ASSESSOR 05/09/2015 5:29 AM SECURITY CONTROLS ASSESSOR Narrative [facility] e27 [facility] - 05/09/2015 7:00 AM SECURITY CONTROLS ASSESSOR This assay is used to detect Clostridium difficile toxin B gene sequences in unformed stool specimens. If toxin is not detected, but clinical suspicion is high please consult ID for consultation and potential repeat testing. This test should not be used as a test of cure. us Magdi Crawford MD MICROBIOLOGY - GENERAL JONATHAN RAI Final Result [facility] LABORATORY SERVICES [facility]# [id number] [facility] [place] [address] documented in this encounter Visit Diagnoses Not on filedocumented in this encounter
--- OUTSIDE RECORDS SUMMARY | 2024-09-19 14:40 | XMS_ITS | Encounter Summary ---
Author Organization [employer] [facility] Address [address] [place] [address] Care Team Providers Care Assistant In Nursing Name Role Phone Unavailable Primary Care Provider Unavailabl e Encounter Details Date Type Department Care Team (Latest Contact Info) Description 01/12/2000 Outpatient Historical [facility] Gurwinder Felipe Jr., MD [address] [place] [phone] Vaccine for viral hepatitis (Primary Dx) Social History Tobacco Use Types Packs/Day Years Used Date Smoking Tobacco: Never Assessed Comments Unknown Sex and Gender Information Value Date Recorded Sex Assigned at Not on file Legal Sex Female 4:17 AM MANAGEMENT ENGINEER Gender Identity Not on file Sexual Orientation Not on file documented as of this encounter Plan of Treatment Not on file documented as of this encounter Visit Diagnoses Diagnosis Vaccine for viral hepatitis- Primary Need for prophylactic vaccination and inoculation against viral hepatitis documented in this encounter
--- OUTSIDE RECORDS SUMMARY | 2024-09-19 14:40 | XMS_ITS | Encounter Summary ---
Author Organization [employer] [facility] Address [address] [place] [address] Care Team Providers Care Business Unit Manager Name Role Phone Unavailable Primary Care Provider Unavailabl e Encounter Details Date Type Department Care Team (Late st Contact Info) Description 05/10/2015 Lab Requisition [facility] Laboratory Services [address] [place] [address] Magdi Crawford MD [address] [place] [address] Social History Tobacco Use Types Packs/Day Years Used Date Smoking Tobacco: Never Assessed Comments Unknown Sex and Gender Information Value Date Recorded Sex Assigned at Not on file Legal Sex Female 4:17 AM CATALYTIC CASE OPERATOR Gender Identity Not on file Sexual Orientation Not on file documented as of this encounter Plan of Treatment Not on file documented as of this encounter Procedures Procedure Name Priority Date/Time Associated Diagnosis Comments TRIGLYCERIDE Routine 05/10/2015 7:00 AM CATALYTIC CASE OPERATOR MAGNESIUM LEVEL Routine 05/10/2015 7:00 AM CATALYTIC CASE OPERATOR COMPREHENSIVE METABOLIC PANEL Routine 05/10/2015 7:00 AM CATALYTIC CASE OPERATOR documented in this encounter Results * (ABNORMAL) TRIGLYCERIDE (05/10/2015 7:00 AM CATALYTIC CASE OPERATOR) TRIGLYCERIDE 177(H) <150 mg/dL 05/10/2015 8:16 AM CATALYTIC CASE OPERATOR [facility] Blood Collection / Unknown 05/10/2015 7:00 AM CATALYTIC CASE OPERATOR 05/10/2015 7:42 AM CATALYTIC CASE OPERATOR Narrative [facility] [employer] [facility] - 05/10/2015 8:16 AM CATALYTIC CASE OPERATOR TRIGLYCERIDES mg/dL Normal < 150 Borderline High 150 - 199 High 200 - 499 Very High >= 500 Based on AHA/NCEP Guidelines. Magdi Crawford MD CHEMISTRY ORDERABLES Final Result Performing Organization Address [facility] Co de Phone Number [facility] CLIA# [id number] [address] [place] [address] * MAGNESIUM LEVEL (05/10/2015 7:00 AM CATALYTIC CASE OPERATOR) MAGNESIUM 1.8 1.8 - 2.4 mg/dL 05/10/2015 8:16 AM [facility] Blood Collection / Unknown 05/10/2015 7:00 AM CATALYTIC CASE OPERATOR 05/10/2015 7:42 AM CATALYTIC CASE OPERATOR Magdi Crawford MD CHEMISTRY ORDERABLES Final Result Performing Organization Address [facility] de Phone Number [facility] CLIA# [id number] [address] [place] [address] * (ABNORMAL) COMPREHENSIVE METABOLIC PANEL (05/10/2015 7:00 AM CATALYTIC CASE OPERATOR) SODIUM 138 136 - 145 mmol/L 05/10/2015 8:16 AM [facility] [employer] [facility] POTASSIUM 4.2 3.5 - 5.1 mmol/L 05/10/2015 8:16 AM [facility] [employer] [facility] CHLORIDE 105 98 - 107 mmol/L 05/10/2015 8:16 AM [facility] [employer] [facility] CO2 27 21 - 32 mmol/L 05/10/2015 8:16 AM [facility] CALCIUM 7.7(L) 8.4 - 10.1 mg/dL 05/10/2015 8:16 AM [facility] BUN 17 7 - 17 mg/dL 05/10/2015 8:16 AM [facility] CREATININE 0.46(L) 0.55 - 1.02 mg/dL 05/10/2015 8:16 AM [facility] GLUCOSE 148(H) 74 - 106 mg/dL 05/10/2015 8:16 AM [facility] TOTAL PROTEIN 6.0(L) 6.4 - 8.2 g/dL 05/10/2015 8:16 AM [facility] ALBUMIN 1.9(L) 3.4 - 5.0 g/dL 05/10/2015 8:16 AM [facility] BILIRUBIN TOTAL 0.3 0.2 - 1.0 mg/dL 05/10/2015 8:16 AM [facility] ALKALINE PHOSPHATASE 153(H) 25 - 100 U/L 05/10/2015 8:16 AM [facility] AST 21 15 - 37 U/L 05/10/2015 8:16 AM [facility] [employer] [facility] ALT 26 13 - 61 U/L 05/10/2015 8:16 AM [facility] GFR >60 >=60 mL/min/1. 73 sq meter 05/10/2015 8:16 AM [facility] [employer] [facility] Comment: eGFR has not been validated [...] mL/min/1. 73 sq meter 05/10/2015 8:16 AM [facility] [employer] [facility] ANION GAP 6(L) 8 - 16 mmol/L 05/10/2015 8:16 AM [facility] [employer] [facility] Blood Collection / Unknown 05/10/2015 7:00 AM CATALYTIC CASE OPERATOR 05/10/2015 7:42 AM CATALYTIC CASE OPERATOR us Magdi Crawford MD CHEMISTRY ORDERABLES Final Result [facility] CLIA# [id number] [address] [place], [place] [id number] documented in this encounter Visit Diagnoses Not on filedocumented in this encounter
--- OUTSIDE RECORDS SUMMARY | 2024-09-19 14:40 | XMS_ITS | Encounter Summary ---
Author Organization [facility] Address [address] [place] [address] Care Team Providers Care Paper Bag Inspector Name Role Phone Unavailable Primary Care Provider Unavailabl e Encounter Details Date Type Department Care Team (Late st Contact Info) Description 05/10/2015 Lab Requisition [facility] Laboratory Services [facility] [address] [place] [address] Magdi Crawford MD [address] [place] [address] Social History Tobacco Use Types Packs/Day Years Used Date Smoking Tobacco: Never Assessed Comments Unknown Sex and Gender Information Value Date Recorded Sex Assigned at Not on file Legal Sex Female 4:17 AM CLINICAL GENETICS LABORATORY CHIEF Gender Identity Not on file Sexual Orientation [...] CBC WITH DIFFERENTIAL Routine 05/10/2015 4:35 AM CL[employer]ICAL [employer]ETICS LABORATORY CHIEF documented in this encounter Results * (ABNORMAL) CBC WITH DIFFERENTIAL (05/10/2015 4:35 AM CLINICAL GENETICS LABORATORY CHIEF) Pathologist [facility] WBC 10.9(H) 4.8 - 10.8 K/uL 05/10/2015 6:33 AM CL[facility]ICAL [facility]ETICS LABORATORY CHIEF [facility] RBC 2.80(L) 4.20 - 5.40 M/uL 05/10/2015 6:33 AM [facility] HEMOGLOBIN 7.7(L) 12.0 - 16.0 g/dL 05/10/2015 6:33 AM [facility] HEMATOCRIT 28.6(L) 36.0 - 46.0 % 05/10/2015 6:33 AM [facility] MCV 102.1 84.0 - 103.0 fL 05/10/2015 6:33 AM [facility] MCH 27.5 27.0 - 34.0 pg 05/10/2015 6:33 AM [facility] MCHC 26.9(L) 30.0 - 35.0 g/dL 05/10/2015 6:33 AM [facility] RDW 18.6(H) 11.0 - 14.5 % 05/10/2015 6:33 AM [facility] RDW-STDEV 68.5(H) 37.0 - 54.0 fL 05/10/2015 6:33 AM [facility] PLATELETS 460(H) 140 - 440 K/uL 05/10/2015 6:33 AM [facility] MPV 11.3 8.9 - 12.8 fL 05/10/2015 6:33 AM [facility] NEUTROPHILS 61 42 - 75 % 05/10/2015 6:33 AM [facility] LYMPHOCYTES 26 24 - 44 % 05/10/2015 6:33 AM [facility] MONOCYTES 6 2 - 10 % 05/10/2015 6:33 AM [facility] EOSINOPHILS 4 0 - 7 % 05/10/2015 6:33 AM [facility] BASOPHILS 0 0 - 1 % 05/10/2015 6:33 AM [facility] NEUTROPHIL ABSOLUTE 6.62 2.00 - 8.00 K/uL 05/10/2015 6:33 AM [facility] LYMPHOCYTE ABSOLUTE 2.79 1.20 - 4.00 K/uL 05/10/2015 6:33 AM [facility] MONOCYTE ABSOLUTE 0.69(H) 0.10 - 0.60 K/uL 05/10/2015 6:33 AM [facility] EOSINOPHIL ABSOLUTE 0.38 0.00 - 0.70 K/uL 05/10/2015 6:33 AM [facility] BASOPHILS ABSOLUTE 0.02 0.00 - 0.20 K/uL 05/10/2015 6:33 AM [facility] IMMATURE GRANULOCYTES 4(H) 0 - 2 % 05/10/2015 6:33 AM [facility] IMMATURE GRANULOCYTES ABSOLUTE 0.42(H) 0.00 - 0.10 K/uL 05/10/2015 6:33 AM [facility] Blood Collection / Unknown 05/10/2015 4:35 AM [facility] LABORATORY CHIEF 05/10/2015 5:50 AM [facility] - 05/10/2015 6:33 AM CL[facility]ICAL [facility]ETICS LABORATORY CHIEF Smear reviewed. No WBC or PLT morphology abnormality noted. RBC Morphology Abnormal: 1+ Polychromasia us Magdi Crawford MD HEMATOLOGY ORDERABLES Final Result [facility] CLIA# [id number] [address] [place] [address] documented in this encounter Visit Diagnoses Not on filedocumented in this encounter
--- OUTSIDE RECORDS SUMMARY | 2024-09-19 14:40 | XMS_ITS | Encounter Summary ---
Author Organization [facility] Address [address] [place] [address] Care Team Providers Care District Operations Manager Name Role Phone Unavailable Primary Care Provider Unavailabl e Encounter Details Date Type Department Care Team (Late st Contact Info) Description 05/09/2015 Lab Requisition [facility] Laboratory Services [address] [place] [address] Magdi Crawford MD [address] [place] [address] Social History Tobacco Use Types Packs/Day Years Used Date Smoking Tobacco: Never Assessed Comments Unknown Sex and Gender Information Value Date Recorded Sex Assigned at Not on file Legal Sex Female 4:17 AM MOLD SHOP SUPERVISOR Gender Identity Not on file Sexual Orientation Not on file documented as of this encounter Plan of Treatment Not on file documented as of this encounter Procedures Procedure Name Priority Date/Time Associated Diagnosis Comments CBC WITHOUT DIFFERENTIAL Routine 05/09/2015 4:50 AM MOLD SHOP SUPERVISOR BASIC METABOLIC PANEL Routine 05/09/2015 4:50 AM MOLD SHOP SUPERVISOR documented in this encounter Results * (ABNORMAL) CBC WITHOUT DIFFERENTIAL (05/09/2015 4:50 AM MOLD SHOP SUPERVISOR) WBC 11.3(H) 4.8 - 10.8 K/uL 05/09/2015 6:00 AM MOLD SHOP SUPERVISOR [facility] RBC 3.06(L) 4.20 - 5.40 M/uL 05/09/2015 6:00 AM MOLD SHOP SUPERVISOR [facility] HEMOGLOBIN 8.3(L) 12.0 - 16.0 g/dL 05/09/2015 6:00 AM [facility] HEMATOCRIT 26.9(L) 36.0 - 46.0 % 05/09/2015 6:00 AM [facility] MCV 87.9 84.0 - 103.0 fL 05/09/2015 6:00 AM [facility] MCH 27.1 27.0 - 34.0 pg 05/09/2015 6:00 AM [facility] MCHC 30.9 30.0 - 35.0 g/dL 05/09/2015 6:00 AM [facility] PLATELETS 457(H) 140 - 440 K/uL 05/09/2015 6:00 AM [facility] MPV 10.4 8.9 - 12.8 fL 05/09/2015 6:00 AM [facility] RDW 16.5(H) 11.0 - 14.5 % 05/09/2015 6:00 AM [facility] RDW-STDEV 51.9 37.0 - 54.0 fL 05/09/2015 6:00 AM [facility] Blood Collection / Unknown 05/09/2015 4:50 AM MOLD SHOP SUPERVISOR 05/09/2015 5:47 AM MOLD SHOP SUPERVISOR us Magdi Crawford MD HEMATOLOGY ORDERABLES Final Result [id number] [address] [place] [address] * (ABNORMAL) BASIC METABOLIC PANEL (05/09/2015 4:50 AM MOLD SHOP SUPERVISOR) SODIUM 137 136 - 145 mmol/L 05/09/2015 6:38 AM [facility] POTASSIUM 4.6 3.5 - 5.1 mmol/L 05/09/2015 6:38 AM [facility] CHLORIDE 104 98 - 107 mmol/L 05/09/2015 6:38 AM [facility] CO2 27 21 - 32 mmol/L 05/09/2015 6:38 AM [facility] CALCIUM 8.1(L) 8.4 - 10.1 mg/dL 05/09/2015 6:38 AM [facility] BUN 18(H) 7 - 17 mg/dL 05/09/2015 6:38 AM [facility] CREATININE 0.47(L) 0.55 - 1.02 mg/dL 05/09/2015 6:38 AM [facility] GLUCOSE 93 74 - 106 mg/dL 05/09/2015 6:38 AM [facility] GFR >60 >=60 mL/min/1. 73 sq meter 05/09/2015 6:38 AM [facility] Comment: eGFR has not been validated [...] mL/min/1. 73 sq meter 05/09/2015 6:38 AM [facility] ANION GAP 6(L) 8 - 16 mmol/L 05/09/2015 6:38 AM [facility] Blood Collection / Unknown 05/09/2015 4:50 AM MOLD SHOP SUPERVISOR 05/09/2015 5:47 AM [facility] us Magdi Crawford MD CHEMISTRY ORDERABLES Final Result [facility] CLIA# [id number] [address] [place] [address] documented in this encounter Visit Diagnoses Not on filedocumented in this encounter
--- OUTSIDE RECORDS SUMMARY | 2024-09-19 14:40 | XMS_ITS | Patient Health Record ---
Author Organization [facility] Address [address] [place] [address] Care Team Providers Care Vehicle Leasing And Rental Manager Name Role Phone Tito Cartagena Primary Care Provider Migration, Provider Unavailable Unavailable Allergies Allergen (clinical drug ingredient) Drug/Non Drug Allergy documented on EMR Reaction Allergy Type Onset Date Status Substance with sulfonamide structure and antibacterial mechanism of action (substance) Sulfa Antibiotics Unknown Drug Allergy 05/27/2003 Active Reason For Referral No Information Medications Medication SIG (Take, Route, Frequency, Duration) Notes Start Date End Date Status Requip 0.5 MG 1 tablet Orally twic e a day for 90 days Active Lisinopril 20 MG 1 tablet Orally twic e daily for 30 day(s) Unknown Montelukast Sodium 10 MG 1 tablet Orally Once a day for 90 days 04/06/2022 Unknown B12 Fast Dissolve 5000 MCG as directed Orally Unknown Multi Vitamin - 1 tablet Orally Once a day Unknown Cephalexin 250 MG 1 capsule Orally Twice a day Unknown Silver sulfADIAZINE 1 % 1 application Externally Once a day Unknown Potassium Chloride 20 MEQ 1 tablet Orally twice a day Unknown Simvastatin 40 MG 1 tablet in the evening Orally Once a day Unknown Ventolin HFA 90 MCG/ACT 2 puffs as needed Inhalation 4 times daily Unknown Fluticasone Propionate 50 MCG/DOSE 2 spray in each nostril Nasally Once a day for 30 day(s) Unknown Furosemide 20 MG 1 tablet Orally Once a day for 10 days 02/01/2023 Unknown Zenpep [id number] UNIT as directed Orally for 30 days Active Atorvastatin Calcium 40 mg TAKE ONE TABLET BY MOUTH EVERY DAY for 90 Active Prolia 60 MG/ML as directed Subcutaneous once for 1 days 02/01/2023 Unknown Lyrica 225 MG 1 capsule Orally twice a day for 30 days 06/21/2023 Active Pantoprazole Sodium 40 MG TAKE 1 TABLET TWICE DAILY for 90 Active Ferrous Gluconate 324 (38 Fe) MG TAKE ONE TABLET BY MOUTH TWICE DAILY for 45 Active Levothyroxine Sodium 75 MCG TAKE 1 TABLET BY MOUTH EVERY MORNING ON A EMPTY STOMACH ONCE DAILY for 90 Active Triamterene-HCTZ 37.5-25 MG 1/2 tab(s) po qd Oral for 30 Triamterene/Hy drochlorothiaz michael 37.5mg/25mg Tablet 1/2 tab(s) po qd #90 (Ninety) tablet(s) 09/29/2013 Unknown Mirtazapine 30 MG TAKE 1 TABLET AT BEDTIME for 90 Active rOPINIRole HCl 0.5 MG TAKE 1 TABLET BY MOUTH TWICE DAILY for 90 Active Imodium A-D 1 MG/5ML 10 ml as needed Orally Four times a day Unknown Pregabalin 225 mg TAKE ONE CAPSULE BY MOUTH EVERY EVENING 1 to 3 hours BEFORE bedtime for 90 09/22/2022 Unknown Maalox 225-200 MG/5ML as directed Orally Unknown Nasal [place] 0.05 % 2 sprays in each nostril as needed Nasally Twice a day Unknown Famotidine 40 MG TAKE 1 TABLET BY MOUTH NEEDED TWICE DAILY for 30 Active ALPRAZolam 0.25 MG 1 tablet Orally abigail y prn anxiety for 30 days Unknown Breo Ellipta 100-25 MCG/INH 1 puff Inhalation Once a day Unknown busPIRone HCl 5 MG 1 tablet Orally Thre e times a day for 30 days 05/21/2019 Unknown Clopidogrel Bisulfate 75 MG 1 tablet Orally Once a day for 30 day(s) Unknown Tamsulosin HCl 0.4 MG 1 capsule Orally O nce a day for 30 day(s) Unknown Bisacodyl 5 MG 2 tablet as needed Orally Once a day for 30 day(s) Unknown Symbicort 160-4.5 MCG/ACT INHALE TWO PUFFS BY MOUTH TWICE DAILY for 30 Unknown Acidophilus - as directed Orally Unknown Xtampza ER 18 mg TAKE ONE CAPSULE BY MOUTH with food EVERY TWELVE HOURS FOR 30 DAYS for 30 08/17/2023 Active Metoprolol Tartrate 50 MG TAKE 1 TABLET TWICE DAILY for 90 Unknown Questran Light 4 GM/DOSE 1 scoop in water Orally three times a day for 30 day(s) Unknown Lomotil 2.5-0.025 MG 1 tablet as needed Orally two times daily Unknown Nitrostat 0.4 MG 1 tablet Sublingual may repeat every 5 mins max of 3 doses in 15 mins Unknown Montelukast Sodium 10 MG 1 tablet Orally Once a day for 30 day(s) Unknown Immunizations Vaccine Route Administration Date Status Comme nts Flu vaccine no Preserv 3 and > IM Intramuscular 12/30/2010 Administered Flu vaccine no Preserv 3 and > Unknown 12/28/2011 Administered Influenza (whole), CPT 32777 Inactive Unknown 01/07/2018 Administered Pneumococcal polysaccharide PPV23 Unknown 12/28/2011 Administered Social History Tobacco Use: Social History Observation Description Date Details (start date - stop date) Never Smoker NA - NA Household Question Answer Notes Level of education: finished college xTobacco Use/Smoking Question Answer Notes Are you a nonsmoker Alcohol Screen (Audit-C) Question Answer Notes Did you have a drink containing alcohol in the p ast year? No Points 0 Interpretation Negative Problems Problem Type SNOMED Code ICD Code Onset Dates Problem Status W/U Status Risk Notes Problem Lumbosacral spondylosis without myelopathy (06252509) Other spondylosis with radiculopathy, lumbar region (M47.26) Active confirmed Problem Female urinary stres s incontinence (27054612) Stress incontinence in female (N39.3) Active confirmed Problem 53925159 Situational anxi ety (F41.8) Active confirmed Problem 07702040 Nummular eczema (L30.0) Active confirmed Problem 829236351 Leg numbness (R20.0) Active confirmed Problem Hypertension (70706137) Hypertension (I10) Active confirmed Problem 019390751 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) Active confirmed Problem 4925733651 Cat allergy, airborne (J30.81) Active confirmed Problem Generalized anxiety disorder (08366325) Generalized anxiety disorder (300.02) 2005 Active confirmed [id number]- Problem Lumbosacral spondylosis without myelopathy (39764258) 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 Active confirmed [id number]- Problem 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) 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 Active confirmed [id number]-[id number]- Problem Generalized osteoarthritis (032847170) Generalized osteoarthritis, 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) 2009 Active confirmed [id number]- Problem Mitral valve regurgitation (14463744) Mitral valve regurgitation (424.0) 2016 Active confirmed [id number]- Problem Postmenopausal osteoporosis (632747011) Postmenopausal osteoporosis (733.01) 2012 Active confirmed Jignesh-[id number] [id number]- Problem Congenital anoma ly of foot, 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 Active confirmed [id number]-[id number] [id number]- Problem 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 Active confirmed [id number]- Problem Obsessive-compulsive disorder (643168452) OCD (300.3) 2011 Active confirmed [id number]- Problem Adjustment disorder with depressed mood (70164507) Adjustment disorder with depressed mood (309.0) 2004 Problem resolved confirmed [id number]-[id number]- Problem Hypocalcemia (1372743) Hypocalcemia (275.41) 2018 Problem resolved confirmed [id number]-[id number] [id number]- Problem Dehydration (77863952) Dehydration (276.51) 2017 Problem resolved confirmed [id number]-[id number] [id number]- Problem Anemia (815890137) Unspecified a nemia (285.9) 2018 Problem resolved confirmed Jignesh-[id number] [id number]- Problem Agoraphobia without history of panic disorder (32015383) Agoraphobia without mention of panic attacks (300.22) 2004 Problem resolved confirmed [id number]-[id number]- Problem Toxic encephalopathy (53111148) Toxic encephalopathy (349.82) 2018 Problem resolved confirmed [id number]-[id number]- Problem Acute sinusitis (20834724) Acute sinusitis, unspecified (461.9) 2003 Problem resolved confirmed Jignesh-[id number] [id number]- Problem Senile osteoporosis (33875029) Senile osteoporosis (733.01) 2009 Problem resolved confirmed [id number]-[id number] [id number]- Problem Weight decreased (417314095) Loss of weight (783.21) 2018 Problem resolved confirmed Jignesh-[id number] [id number]- Problem Shortness of breath (553201474) Shortness of breath (786.05) 2007 Problem resolved confirmed [id number]-[id number] [id number]- Problem Cough (26513794) Cough (786.2) 2010 Problem resolved confirmed [id number]-[id number] [id number]- Problem Heartburn (21121422) Heartburn (787.1) 2009 Problem resolved confirmed Jignesh-[id number] [id number]- Problem Diarrhea (97002971) Diarrhea (787.91) 2010 Problem resolved confirmed Jignesh-[id number] [id number]- Problem Dysuria (98546589) Dysuria (788.1) 2003 Problem resolved confirmed Jignesh-[id number] [id number]- Problem Restless legs (95353540) Restless legs syndrome (RLS) (333.94) 2006 Problem resolved confirmed Jignesh-[id number] [id number]- Problem Hiatal hernia (53400411) Hiatal hernia (553.3) 2014 Problem resolved confirmed Jignesh-[id number] [id number]- Problem Rash (592338402) Rash (782.1) 2009 Problem resolved confirmed Jignesh-[id number] [id number]- Problem Hypokalemia (39549711) Hypokalemia (276.8) 2018 Problem resolved confirmed Jignesh-[id number] [id number]- Problem Dizziness (284515706) Dizziness (780.4) 0 2004 Problem resolved confirmed Jignesh-[id number] [id number]- Problem Low back pain (718192255) Low back pain (724.2) 2004 Problem resolved confirmed Jignesh-[id number] [id number]- Problem Fatigue (97112940) Fatigue (780.79) 05/03 Problem resolved confirmed Jignesh-[id number] [id number]- Problem Iron deficiency anemia (79946709) Iron deficiency anemia, unspecified (280.9) 2015 Problem resolved confirmed Jignesh-[id number] [id number]- Problem Vaginal irritation (555052437) Vaginal irritation (623.9) 2018 Problem resolved confirmed Jignesh-[id number] [id number]- Problem Hypercholesterolemia (01313436) Hypercholesterolemia (272.0) 2009 Problem resolved confirmed Jignesh-98 [id number]- Problem Hypotension (11794725) Hypotension, other (458.8) 2018 Problem resolved confirmed Jignesh-[id number] 5911- Problem Mild recurrent major depression (02915771) Major depression, recurrent episode, mild (296.31) 2016 Problem resolved confirmed Jignesh-[id number] 5911- Problem Moderate recurrent major depression (31370060) Major depression, recurrent episode, moderate (296.32) 2009 Problem resolved confirmed Jignesh-[id number] [id number]- Problem Nonspecific gastrointestinal (GI) tract abnormality by CT (793.4) 2014 Problem resolved confirmed Jignesh-[id number] [id number]- Problem Seasonal allergy (719090988) Seasonal allergies (477.0) 2017 Problem resolved confirmed Jignesh-[id number] [id number]- Problem Shoulder pain (58750395) Shoulder pain (719.41) 2014 Problem resolved confirmed Jignesh-98 5911- Problem Screening for breast cancer (450501905) Screening for breast cancer (V76.10) 2012 Problem resolved confirmed Jignesh-[id number] [id number]- Problem Allergic rhinitis du e to allergen (48355240) Allergic rhinitis, other allergen-induced (477.8) 2011 Problem resolved confirmed Jignesh-[id number] [id number]- Problem Allergic rhinitis du e to allergen (90877574) Allergic rhinitis, other allergen-induced, NEC (477.8) 2012 Problem resolved confirmed Jignesh-[id number] [id number]- Problem Allergic rhinitis caused by pollen (73706933) Allergies (477.0) 2010 Problem resolved confirmed Jignesh-[id number] 5911- Problem Breast mass (98086379) Breast mass (611.72) 2004 Problem resolved confirmed Jignesh-98 5911- Problem Chest pain (81064134) Chest pain (786.50) 2004 Problem resolved confirmed Jignesh-98 5911- Problem Disorder of hematopoietic system (19110442) Other abnormal findings on blood examination (790.99) 2016 Problem resolved confirmed Jignesh-98 5911- Problem Right lower quadrant pain (725546466) RLQ abdominal pain (789.03) 2014 Problem resolved confirmed Jignesh-98 5911- Problem Sore throat (606097351) Sore Throat (462) 2014 Problem resolved confirmed Jignesh-98 5911- Problem Acute renal failure (12286241) Acute renal failure, NEC (584.8) 2016 Problem resolved confirmed Jignesh-98 5911- Problem Atypical mole syndrome (224741714) Atypical mole (238.2) 2010 Problem resolved confirmed Jignesh-98 5911- Problem Bilateral pneumonia (240594820) Bilateral pneumonia (486) 2017 Problem resolved confirmed Jignesh-98 5911- Problem Depressive disorder (24270220) Depressive disorder not elsewhere classified (311) 2009 Problem resolved confirmed Jignesh-98 5911- Problem Hematochezia (984204472) Hematochezia (578.1) 2018 Problem resolved confirmed Jignesh-98 5911- Problem Lab: Used to mat ch unlinked laboratory orders (V92) 2014 Problem resolved confirmed Jignesh-98 5911- Problem Lymphadenopathy (44325781) Lymphadenopathy (785.6) 2008 Problem resolved confirmed Jignesh-98 5911- Problem Flank pain (200951088) Flank pain (724.8) 2018 Problem resolved confirmed Jignesh-98 5911- Problem Midline cystocele (562314158) Cystocele, midline (618.01) 2014 Problem resolved confirmed Jignesh-98 5911- Problem Dumping syndrome (47381943) Dumping syndrome (564.2) 2015 Problem resolved confirmed Jignesh-98 5911- Problem Ear ache (97808695) Ear ache (388.71) 2008 Problem resolved confirmed Jignesh-98 5911- Problem Gastric ulcer (094885776) Gastric ulcer (531.30) 2010 Problem resolved confirmed Jignesh-98 5911- Problem Insomnia (858276654) Insomnia (307.41) 2009 Problem resolved confirmed Jignesh-98 5911- Problem Pain in limb (25651336) Leg pain (729.5) 2006 Problem resolved confirmed Jignesh-98 5911- Problem Precordial pain (48973777) Precordial chest pain (786.51) 2014 Problem resolved confirmed Jignesh-98 5911- Problem Abdominal pain (49794078) Abdominal pain (789.09) 2009 Problem resolved confirmed Jignesh-98 5911- Problem Cardiac arrhythmia (992417155) Bigeminy (427.89) 2016 Problem resolved confirmed Jignesh-98 5911- Problem Persistent hypersomnia (362461402) Chronic hypersomnia (307.44) 2009 Problem resolved confirmed Jignesh-98 5911- Problem Needs influenza immunization (938157320) Vaccination against other viral diseases, Influenza (V04.81) 2011 Problem resolved confirmed Jignesh-98 5911- Problem Acute upper respiratory infection (14335375) Acute upper respiratory infection (465.8) 2005 Problem resolved confirmed Jignesh-98 5911- Problem Anxiety depression (249973943) Anxiety with depression (300.4) 2005 Problem resolved confirmed Jignesh-98 5911- Problem Osteoarthritis of shoulder (54486073) 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) 2014 Problem resolved confirmed Jignesh-98 5911- Problem Persistent insomnia (578181625) Persistent insomnia (307.42) 2003 Problem resolved confirmed Jignesh-98 5911- Problem Pleural effusion (94539213) Pleural effusion (511.9) 2018 Problem resolved confirmed Jignesh-98 5911- Problem Malignant essential hypertension (75358652) Severe elevation in blood pressure (401.0) 2004 Problem resolved confirmed Jignesh-98 5911- Problem Basal cell carcinoma of eyelid (623088307) Basal cell carcinoma of eyelid (173.1) 2009 Problem resolved confirmed Jignesh-98 5911- Problem Cellulitis (195048932) Cellulitis or abscess of other site (682.8) 2015 Problem resolved confirmed Jignesh-98 5911- Problem Chronic low back taya n (920596157) Chronic low back pain (724.2) 2004 Problem resolved confirmed Jignesh-98 5911- Problem Constipation (42239104) Constipation (564.01) 2006 Problem resolved confirmed Jignesh-98 5911- Problem Depression (642661251) Depression (296.20) 2004 Problem resolved confirmed Jignesh-98 5911- Problem Itching (391738959) Itching (698.9) 12/24 Problem resolved confirmed Jignesh-98 5911- Problem Urinary tract infection (56563820) Urinary tract infection (595.0) 2016 Problem resolved confirmed Jignesh-98 5911- Problem Acquired hypothyroidism (270463943) Acquired hypothyroidism (244.8) 2009 Problem resolved confirmed Jignesh-98 5911- Problem Acute sinusitis (28315082) Acute sinusitis (461.8) 2008 Problem resolved confirmed Jignesh-98 5911- Problem Asthma without statu s asthmaticus (31564025) Asthma, type unspecified (493.90) 2017 Problem resolved confirmed Jignesh-98 5911- Problem Adjustment disorder with depressed mood (97482790) Bereavement adjustment reaction (309.0) 2012 Problem resolved confirmed Jignesh-98 5911- Problem Left ventricular hypertrophy (81246419) LVH (429.3) 2018 Problem resolved confirmed Jignesh-98 5911- Problem Chronic insomnia (143819761) Chronic insomnia (307.42) 2009 Problem resolved confirmed Jignesh-98 5911- Problem Precordial pain (57867758) Substernal chest pain (786.51) 2004 Problem resolved confirmed Jignesh-98 5911- Problem Administration of vaccine product containing only Streptococcus pneumoniae antigen (procedure) (97772903) Vaccination against pneumococcal pneumonia (V03.82) 2011 Problem resolved confirmed Jignesh-98 5911- Problem Vaginal discharge (770400080) Vaginal discharge (616.10) 2018 Problem resolved confirmed Jignesh-98 5911- Problem Easy bruising (197808590) Easy bruising (782.7) 2018 Problem resolved confirmed Jignesh-98 5911- Problem Hip pain (96163599) Hip pain (719.45) 2017 Problem resolved confirmed Jignesh-98 5911- Problem Osteoporosis (17478368) Osteoporosis (733.09) 2009 Problem resolved confirmed Jignesh-98 5911- Problem Dry mouth (65083354) Dry mouth (527.7) 2005 Problem resolved confirmed Jignesh-98 5911- Problem Essential hypertension (83180122) Essential hypertension (401.1) 2009 Problem resolved confirmed Jignesh-98 5911- Problem Hypertension (62183533) HTN (401.1) 2004 Problem resolved confirmed Jignesh-98 5911- Problem Colostomy present (398509660) Patient with colostomy (V44.3) 2015 Problem resolved confirmed Jignesh-98 5911- Problem Pedal edema (432493421) Pedal edema (782.3) 2018 Problem resolved confirmed Jignesh-98 5911- Problem Restless legs syndrome (62461324) Restless leg syndrome (333.99) 2007 Problem resolved confirmed Jignesh-98 5911- Problem Neoplasm of uncertai n behavior of connective and other soft tissues (35702538) Unspecified skin lesion (239.2) 2016 Problem resolved confirmed Jignesh-98 5911- Problem Abnormal urination (71649153091928) Urinary abnormality (788.69) 2018 Problem resolved confirmed Jignesh-98 5911- Problem 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, 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 Problem resolved confirmed Jignesh-98 5911- Problem Screening for malignant neoplasm of breast (782199711) Screening for breast cancer, unspecified (V76.10) 2014 Problem resolved confirmed Jignesh-98 5911- Problem Screening mammograph y (97765165) Screening mammogram - other (V76.12) 2016 Problem resolved confirmed Jignesh-98 5911- Problem Vaginitis and vulvovaginitis (502345321) Vaginal Discharge Unspecified (616.10) 2014 Problem resolved confirmed Jignesh-98 5911- Encounters Encounter Location Date Provider Diagnosis Migrated_Facility 0 0 01/19/2024 Provider Migration [facility]rated[facility]Facility 0 0 01/20/2024 Provider Migration [facility] [address] [address] 09/21/2023 Tito Cartagena Plan Of Treatment No Information Insurance Providers Payer Name Payer Address Payer Phone Subscriber Number Group Number Insured Name Patient Relationship to Insured Coverage Start Date Coverage End Date A[employer] Medicare Advantage - PPO [address] [address] [place] [address] [phone] [id number] Ivan Ferrari Self - patient is the insured [employer] - Out of Network [address] [address] [place] [address] [id number] Ivan Ferrari Self - patient is the insured 3 Medications Administered Medication Instructions Date of Administration Dosage Notes dexAMETHasone 03/23/2022 10 mg Medical (General) History Medical History History ICD Code PREVENTIVE HEALTH MAINTENANCE Colonoscopy-was last done 03/09/15 with diverticulosis noted Occult Stool: 01/30/19 x3 positive cards Cologuard: Has never been done Endoscopy- Has never been done Nuclear stress test- Has never been done Exercise stress test- Has never been don e Echocardiogram- done 03/03/19 angiogram d one 11/2018 with normal results Carotid doppler- Has never been done CT chest- 04/25/17 large hiatal hernia, m ild calcified thoracic aorta Chest xray: 10/03/18 large hi atal hernia, atherosclerotic cardiovascular changes PFTS- 06/08/17 Sleep Study: Has never been done Bone Density: done 07/09/17 Prolia Inject ion 11/2018 Mammogram- done 12/27/17 with normal results, next one due 1 year Has appt on 01/30/19 Pap- Post status hysterectomy Influenza vaccine- 01/03/2019 Pneumococcal vaccine- 12/2011 Prenvar 13- 12/02/14 Shingles vaccine- 2012 Shingrix- was given script for 02/21/18 Tetanus vaccine- 03/2012 Dtap Pertussis Vaccine: 03/2012 tdap Hep C screening: Has never been done Eye Exam: Has never been done Diabetic foot exam: Has never been done Microalbumin (urine): Has never been don e Controlled medication consent: Date Drug screen: Date GYNECOLOGICAL HISTORY Microalbumin, Urine: 05/31/18 Last menses- control- PAST MEDICAL HISTORY Hyperlipidemia Asthma Gastroesophageal Reflux Disease Hiatal Hernia Osteoarthritis: Right SI Joint Injection 01/16/18 Osteoporosis Hypothyroidism Allergies Abnormal cardiovascular stress test Atherosclerotic heart disease Covid Chronic back pain Diarrhea Fibromyalgia Greater trochanteric bursitis Hyperlipidemia Hypertension Ileostomy custodial use of opiate analgesic NSTEMI Heart attack Plelonephritis UTI recurrent Restless leg syndrome R knee DJD urgency incontinence Urinary incontinence Urinary retention Yeast vaginitis Surgical History Surgery Date(Month/Year) Reverse Ileostomy H/O Ileostomy R foot surgery 2022 colostomy 03/2015, reversed 05/2018 rectal cyst removal bilateral tubal ligation (BTL) hysterectomy appendectomy
--- OUTSIDE RECORDS SUMMARY | 2024-09-19 14:40 | XMS_ITS | Encounter Summary ---
Author Organization [employer] [facility] Address [address] [place] [address] Care Team Providers Care Gas Combustion Engineer Name Role Phone Unavailable Primary Care Provider Unavailabl e Encounter Details Date Type Department Care Team (Latest Contact Info) Description 12/16/1999 Outpatient Historical [facility] Gurwinder Felipe Jr., MD [facility] [place] [id number] Unspecified adjustment reaction (Primary Dx); Depressive disorder, not elsewhere classified Social History Tobacco Use Types Packs/Day Years Used Date Smoking Tobacco: Never Assessed Comments Unknown Sex and Gender Information Value Date Recorded Sex Assigned at Not on file 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
--- OUTSIDE RECORDS SUMMARY | 2024-09-19 14:40 | XMS_ITS | Encounter Summary ---
Author Organization [employer] [facility] Address [address] [place] [address] Care Team Providers Care Hospital Aides And Assistants Teacher Name Role Phone Unavailable Primary Care Provider Unavailabl e Encounter Details Date Type Department Care Team (Latest Contact Info) Description 10/25/1999 Outpatient Historical [facility] Gurwinder Felipe Jr., MD [address] [place] [phone] Unspecified essential hypertension (Primary Dx) Social History Tobacco Use Types Packs/Day Years Used Date Smoking Tobacco: Never Assessed Comments Unknown Sex and Gender Information Value Date Recorded Sex Assigned at Not on file 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
--- OUTSIDE RECORDS SUMMARY | 2024-09-19 14:40 | XMS_ITS | Encounter Summary ---
Author Organization [employer] [facility] Address [address] [place] [address] Care Team Providers Care Social Service Liaison Name Role Phone Unavailable Primary Care Provider Unavailabl e Encounter Details Date Type Department Care Team (Latest Contact Info) Description 12/06/2000 Outpatient Historical [facility] Gurwinder Felipe Jr., MD [address] [place] [phone] Unspecified essential hypertension (Primary Dx); Cramp of limb Social History Tobacco Use Types Packs/Day Years Used Date Smoking Tobacco: Never Assessed Comments Unknown Sex and Gender Information Value Date Recorded Sex Assigned at Not on file 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
--- OUTSIDE RECORDS SUMMARY | 2024-09-19 14:40 | XMS_ITS | Patient Health Record ---
Author Organization [facility] Address [address], [place] [id number] Care Team Providers Care Ship'S Surveyor Name Role Phone Betito BYRD, Jannet Primary Care Provider Unavail able Janel BYRD, Uri Unavailable [phone] Radah Vargas Unavailable [phone] Allergies No Known Allergies Reason For Referral No Information Medications Medication SIG (Take, Route, Frequency, Duration) Notes Start Date End Date Status Dulcolax Laxative 5 mg 1 tab(s) orally o nce a day Active oxyCODONE 10 mg 1-2 tabs orally Q4-6 H prn pain (max 6/day; hold within 4H of planned sleep) for 28 days Do not fill prior to 09/11/24. ICD-10: G89.29 07/10/2024 Active ferrous sulfate 324 mg 1 tab(s) orally o nce a day Active Narcan 4 mg/0.1 mL 1 spray(s) intranasally once 09/11/2023 Active multivitamin Multiple Vitamins 1 tab(s) orally once a day for 30 day(s) Active oxyCODONE 10 mg 1-2 tabs orally Q4-6 H prn pain (max 6/day; hold within 4H of planned sleep) for 28 days Do not fill prior to 08/14/24. ICD-10: G89.29 07/10/2024 Active cloNIDine 0.1 mg 1 tab(s) orally 2 times a day for 30 day(s) Active mirtazapine 30 mg 1 tab(s) orally once a day (at bedtime) for 30 day(s) Active Calcium 600+D 600 mg-5 mcg 1 tab(s) orally 3 times a day for 30 day(s) Active hydrochlorothiazide-tr iamterene 25 mg-37.5 mg 1 tab(s) orally once a day for 30 day(s) Active Zenpep 40,000 units-126,000 units-168,000 units 2 cap(s) orally 3 times a day Active atorvastatin 40 mg 1 tab(s) orally once a day for 30 day(s) Active Vitamin B-12 500 mcg 1 tab(s) orally onc e a day for 30 day(s) Active aspirin 81 mg 1 tab(s) orally once a day for 30 day(s) Active hydrALAZINE 10 mg 1 tab(s) orally once a day Active sertraline 100 mg 1 tab(s) orally once a day for 30 days Active oxyCODONE 10 mg 1-2 tabs orally Q4-6 H prn pain (max 6/day; hold within 4H of planned sleep) for 28 days Do not fill prior to 07/17/24. ICD-10: G89.29 07/10/2024 Active amLODIPine 10 mg 1 tab(s) orally once a day Active senna 8.6 mg 2 tab(s) orally twic e a day Active albuterol 90 mcg/inh 2 puff(s) inhaled every 6 hours for 30 day(s) Active rOPINIRole 0.5 mg 1 tab(s) orally 2 times a day Active pantoprazole 40 mg 1 tab(s) orally ever y 12 hours Active Social History Tobacco Use: Social History Observation Description Date Details (start date - stop date) Former Smoker NA - NA Tobacco use: Question Answer Notes : former smoker When did you stop smoking? 1991 AUDIT-C (Standard) Question Answer Notes Did you have a drink containing alcohol in the p ast year? No Points 0 Interpretation Negative Problems Problem Type SNOMED Code ICD Code Onset Dates Problem Status W/U Status Risk Notes Problem Solitary sacroiliitis (905621727) Sacroiliitis, not elsewhere classified (M46.1) Active confirmed Problem High risk drug monitoring status (676864845) terminal make up operator (current) use of opiate analgesic (Z79.891) Active confirmed Problem Arthralgia of the lower leg (394057187) Pain in right knee (M25.561) Active confirmed Problem Arthralgia of the lower leg (563357223) Pain in left knee (M25.562) Active confirmed Problem Hypersomnia (09331834) Hypersomnia, unspecified (G47.10) Active confirmed Problem Chronic pain (98315581) Other chronic pain (G89.29) Active confirmed Problem Essential hypertension (42735878) Essential (primary) hypertension (I10) Active confirmed Problem Fibromyalgia (601001816) Fibromyalgia (M79.7) Active confirmed Problem Long-term current use of drug therapy (595178908) Other terminal press operator (current) drug therapy (Z79.899) Active confirmed Problem Low back pain (814580708) Low back pain, unspecified (M54.50) Active confirmed Problem Low back pain (finding) (822067888) Vertebrogenic low back pain (M54.51) Active confirmed Vital Signs Temperature 97.5 degrees Fahrenheit 07/10/2024 Blood pressure diastolic 100 mm Hg 07/10/2024 Oximetry 97 % 07/10/2024 Height 61 in 07/10/2024 Blood pressure systolic 182 mm Hg 07/10/2024 Weight 104.4 lbs 07/10/2024 BMI 19.72 kg/m2 07/10/2024 Encounters Encounter Location Date Provider Diagnosis [facility] [address], [place] [id number] 10/02/2023 Radha Montalvo Vertebrogenic low ba ck pain M54.51 ; Other chronic pain G89.29 ; Hypersomnia, unspecified G47.10 and terminal make up operator (current) use of opiate analgesic Z79.891 [facility] [address], [place] [id number] 10/30/2023 Radha Montalvo Vertebrogenic low ba ck pain M54.51 ; Other chronic pain G89.29 ; Hypersomnia, unspecified G47.10 and halfway (current) use of opiate analgesic Z79.891 [facility] [address], [place] [id number] 12/27/2023 Uri Islas Vertebrogenic low ba ck pain M54.51 ; Other chronic pain G89.29 and Hypersomnia, unspecified G47.10 [facility] [address], [place] [id number] 03/13/2024 Uri Islas Vertebrogenic low ba ck pain M54.51 ; Other chronic pain G89.29 ; Hypersomnia, unspecified G47.10 and Essential (primary) hypertension I10 [facility] [address] [place], [place] [id number] 05/22/2024 Uri Islas Vertebrogenic low ba ck pain M54.51 ; Other chronic pain G89.29 and Hypersomnia, unspecified G47.10 [facility] [address] [place], [place] [id number] 07/10/2024 Uri Islas Vertebrogenic low ba ck pain M54.51 ; Other chronic pain G89.29 ; Essential (primary) hypertension I10 and Hypersomnia, unspecified G47.10 [facility] [address] [place], [place] [id number] 09/24/2023 Uri Islas [facility] [address], [place] [id number] 01/21/2024 Uri Islas Assessments Encounter Date Diagnosis (ICD Code) Assessment Notes Treatment Notes Treatment Clinical Notes Section Notes 10/02/2023 Vertebrogenic low back pain (ICD-10 - M54.51) Chronic axial lumbosacral spine pain. 03/13/2024 Other chronic pain (ICD-10 - G89.29) Patient reports that taking her pain medication allows her to complete light household tasks. Plan to continue oral opioid medication management. 03/13/2024 Vertebrogenic low back pain (ICD-10 - M54.51) Chronic axial lumbosacral spine pain. 07/10/2024 Other chronic pain (ICD-10 - G89.29) Patient reports that taking her pain medication allows her to cook for herself. Plan to continue oral opioid medication. 07/10/2024 Vertebrogenic low back pain (ICD-10 - M54.51) Chronic axial lumbosacral spine pain. 12/27/2023 Vertebrogenic low back pain (ICD-10 - M54.51) Chronic axial lumbosacral spine pain. 10/30/2023 Vertebrogenic low back pain (ICD-10 - M54.51) Chronic axial lumbosacral spine pain. 05/22/2024 Other chronic pain (ICD-10 - G89.29) Patient reports that taking her pain medication allows her to cook for herself. Plan to continue oral opioid medication management. 05/22/2024 Vertebrogenic low back pain (ICD-10 - M54.51) Chronic axial lumbosacral spine pain. 05/22/2024 Hypersomnia, unspecified (ICD-10 - G47.10) Patient confirms that she is not interested in getting a sleep study and possible treatment as previously recommended / ordered. Plan to continue to restrict opioid usage in relation to sleep for safety concerns: patient has verbalized understanding to hold opioids within four hours of planned sleep. 10/30/2023 Hypersomnia, unspecified (ICD-10 - G47.10) Patient has history of a sleep disorder with hypersomnia and restless legs noted amongst patient's sleep related symptoms. Patient has stated a desire for a sleep study; scheduled for 12/05/23. Plan to continue to restrict short acting opioid usage in relation to sleep for safety concerns: patient has verbalized understanding to hold short acting opioids within four hours of planned sleep. 10/30/2023 Other chronic pain (ICD-10 - G89.29) Patient reports that taking her pain medication allows her to care for her home and dog. Plan to continue oral opioid medication management. 12/27/2023 Hypersomnia, unspecified (ICD-10 - G47.10) Patient has history of a sleep disorder with hypersomnia and restless legs noted amongst patient's sleep related symptoms. Patient has stated a desire for a sleep study; scheduled for 12/05/23 (cancelled due to being in a nursing facility). Patient will consider rescheduling. Plan to continue to restrict short acting opioid usage in relation to sleep for safety concerns: patient has verbalized understanding to hold short acting opioids within four hours of planned sleep. 12/27/2023 Other chronic pain (ICD-10 - G89.29) Patient reports that taking her pain medication allows her to be more active now that she has returned home from the nursing facility. Plan to continue oral opioid medication management. 07/10/2024 Essential (primary) hypertension (ICD-10 - I10) Education sheet given at today's visit; patient to address with PCP. 03/13/2024 Hypersomnia, unspecified (ICD-10 - G47.10) Patient has history of a sleep disorder with hypersomnia and restless legs noted amongst patient's sleep related symptoms. Patient previously canceled her planned sleep study (see prior documentation). Patient has stated that she will notify this facility if she desires to reschedule the study. Plan to continue to restrict short acting opioid usage in relation to sleep for safety concerns: patient has verbalized understanding to hold short acting opioids within four hours of planned sleep. 10/02/2023 Hypersomnia, unspecified (ICD-10 - G47.10) Patient has history of a sleep disorder with hypersomnia and restless legs noted amongst patient's sleep related symptoms. Patient has stated a desire for a sleep study; scheduled for 12/05/23. Plan to continue to restrict short acting opioid usage in relation to sleep for safety concerns: patient has verbalized understanding to hold short acting opioids within four hours of planned sleep. 10/02/2023 Other chronic pain (ICD-10 - G89.29) Patient reports that the transition from long acting to short acting is not adequately managing her pain. Plan to continue oral opioid medication management with a quantity titration. 10/02/2023 terminal make up operator (current) use of opiate analgesic (ICD-10 - Z79.891) Patient has a total daily MED of 60. This places the [facility] in the [facility] high risk category for total daily opioid usage. 2022 opioid (OUD) risk tool score = 1. This places the patient in the low risk category. 03/13/2024 Essential (primary) hypertension (ICD-10 - I10) Education sheet given at today's visit; patient to address with her PCP. 07/10/2024 Hypersomnia, unspecified (ICD-10 - G47.10) Plan to continue to restrict opioid usage in relation to sleep for safety concerns. 10/30/2023 halfway (current) use of opiate analgesic (ICD-10 - Z79.891) Patient has a total daily MED of 60. This places the patient in the [facility] high risk category for total daily opioid usage. 2022 opioid (OUD) risk tool score = 1. This places the patient in the low risk category. 07/10/2024 Other The service was provided by SEE Marcus, as part of the ongoing care plan established by Uri Islas MD, who was present in the office for direct supervision during the encounter. Patient was provided with a letter at today's visit informing patient that this clinic is closing due to [facility]las[facility]; see scanned document. Terminal prescriptions were given to the patient along with tapering instructions. 03/13/2024 Other The service was provided by SEE Marcus, as part of the ongoing care plan established by Uri Islas MD, who was present in the office for direct supervision during the encounter. 05/22/2024 Other The service was provided by SEE Marcus, as part of the ongoing care plan established by Uri Islas MD, who was present in the office for direct supervision during the encounter. 10/30/2023 Other 12/27/2023 Other The service was provided by SEE Marcus, as part of the ongoing care plan established by Uri Islas MD, who was present in the office for direct supervision during the encounter. 10/02/2023 Other Plan Of Treatment No Information Insurance Providers Payer Name Payer Address Payer Phone Subscriber Number Group Number Insured Name Patient Relationship to Insured Coverage Start Date Coverage End Date [employer] MEDICARE ADVANTAGE [address] [address] [place] [address] [id number] Ivan Sherman Self - patient is the insured Medical (General) History Medical History History ICD Code Chronic pain Low back pain Lumbar spondylosis and disc disease Sacroiliitis Pain in right second toe, hi story of multiple surgeries with ongoing / chronic pain thereafter Pain in right knee Contreras in left knee Pain in right hand Fibromyalgia Osteoporosis COVID-19 Recurrent UTI Atherosclerotic heart disease Non-ST elevated myocardial infarction Hyperlipidemia Hypertension Pyelonephritis Ileostomy Depression Restless legs syndrome Sleep disorder with restless legs and hypersomnia (have recommended and ordered a sleep study for possible treatment purposes, however, patient canceled the sleep study and has since stated no interest) Surgical History Surgery Date(Month/Year) Appendectomy, 1973 Tubal ligation Removal of anal cyst, performed in [place], [place] 1967 Hysterectomy, performed in [place], [place], 1987 Oral surgery, performed in [place], [place], 2005 Foot surgery, right, performed at [facility] b y Dr. Bonilla, 2013, 2015 Removal of tumor, abdominal, performed a t [facility] by Dr. Dobbs, 2016 Repair of tear in bowel and ileostomy, performed at [facility] by Dr. Dobbs, 2016 Reversal of ileostomy, performed at [facility] by Dr. Godwin, 2019 Foot surgery, right second toe, performe d by Dr. Ramirez Pacemaker insertion, at [facility], 03/2024 Hospitalization History Reason Date(Month/Year) Fall, treated at [facility], 03/2024 Depression, treated at [facility] in [place], [place], 02/2024 Dehydration, hernia and ulcer, treated a t [facility], 11/2023 Child x 4 Heart attack, treated at [facility], 2019
--- OUTSIDE RECORDS SUMMARY | 2024-09-19 14:40 | XMS_ITS | Encounter Summary ---
Author Organization [facility] Address [address] [place] [address] Care Team Providers Care Livery Car Driver Name Role Phone Unavailable Primary Care Provider Unavailabl e Encounter Details Date Type Department Care Team (Late st Contact Info) Description 05/01/2015 Lab Requisition [facility] [address] [place] [address] Magdi Crawford MD [address] [place] [address] Social History Tobacco Use Types Packs/Day Years Used Date Smoking Tobacco: Never Assessed Comments Unknown Sex and Gender Information Value Date Recorded Sex Assigned at Not on file Legal Sex Female 4:17 AM WOOL SCOURER Gender Identity Not on file Sexual Orientation Not on file documented as of this encounter Plan of Treatment Not on file documented as of this encounter Procedures Procedure Name Priority Date/Time Associated Diagnosis Comments URINALYSIS W/REFLEX MICROSCOPIC Routine 05/01/2015 1:40 PM WOOL SCOURER URINE CULTURE Routine 05/01/2015 1:40 PM WOOL SCOURER documented in this encounter Results * URINE CULTURE (05/01/2015 1:40 PM WOOL SCOURER) CULTURE Polymicrobial growth consistent with normal urethral zaida and/or colonizing bacteria 05/02/2015 2:39 PM WOOL SCOURER [facility] [employer] [facility] Urine URINE SPECIMEN OBTAINED BY CLEAN CATCH PROCEDURE / Unknown Collection / Unknown 05/01/2015 1:40 PM WOOL SCOURER 05/01/2015 3:32 PM WOOL SCOURER us Magdi Crawford MD MICROBIOLOGY - GENERAL ORDE RABLES Final Result Performing Organization Address City/[facility]/ZIP Co de Phone Number [facility] CLIA# [id number] [address] [place] [address] * URINALYSIS (05/01/2015 1:40 PM WOOL SCOURER) COLOR UA Yellow Pale to dark yellow 05/01/2015 3:45 PM [facility] CLARITY UA Clear Clear 05/01/2015 3:45 PM [facility] SPECIFIC GRAVITY UA 1.006 1.003 - 1.035 05/01/2015 3:45 PM [facility] PH UA 7.0 5.0 - 8.0 05/01/2015 3:45 PM [facility] LEUKOCYTE ESTERASE UA Negative Negative 05/01/2015 3:45 PM [facility] NITRITE UA Negative Negative 05/01/2015 3:45 PM [facility] PROTEIN UA Negative Negative 05/01/2015 3:45 PM [facility] GLUCOSE UA Negative Negative 05/01/2015 3:45 PM [facility] KETONES UA Negative Negative 05/01/2015 3:45 PM [facility] UROBILINOGEN UA <2.0 <2.0 mg/dL 05/01/2015 3:45 PM [facility] BILIRUBIN UA Negative Negative 05/01/2015 3:45 PM [facility] BLOOD UA Negative Negative 05/01/2015 3:45 PM [facility] Urine, clean catch URINE SPECIMEN OBTAINED BY CLEAN CATCH PROCEDURE / Unknown Collection / Unknown 05/01/2015 1:40 PM WOOL SCOURER 05/01/2015 3:32 PM WOOL SCOURER us Magdi Crawford MD URINE ORDERABLES Final Resu lt [facility] CLIA# [id number] [facility] [facility] [place] [address] documented in this encounter Visit Diagnoses Not on filedocumented in this encounter
--- OUTSIDE RECORDS SUMMARY | 2024-09-19 14:40 | XMS_ITS | Encounter Summary ---
Author Organization [employer] [facility] Address [address] [place] [address] Care Team Providers Care Boxing Machine Operator Name Role Phone Unavailable Primary Care Provider Unavailabl e Encounter Details Date Type Department Care Team (Latest Contact Info) Description 05/20/2001 Outpatient Historical [facility] Gurwinder Felipe Jr., MD [address] [place] [phone] OSTEOARTHROS NOS-UNSPEC (Primary Dx); SKIN DISORDERS NEC; Benign jos skin leg Social History Tobacco Use Types Packs/Day Years Used Date Smoking Tobacco: Never Assessed Comments Unknown Sex and Gender Information Value Date Recorded Sex Assigned at Not on file Legal Sex Female 4:17 AM MANAGER NEONATAL Gender Identity Not on file Sexual Orientation [...]
--- OUTSIDE RECORDS SUMMARY | 2024-09-19 14:41 | XMS_ITS | Encounter Summary ---
Author Organization [facility] [employer] [facility] Address [address] [place] [address] Care Team Providers Care Sales Manager [place] Name Role Phone Unavailable Primary Care Provider Unavailabl e Encounter Details Date Type Department Care Team (Latest Contact Info) Description 08/05/2001 Outpatient Historical [facility] Matteo Inman, Gurwinder Mora MD [address] [place] [phone] ACUTE SINUSITIS NOS (Primary Dx) Social History Tobacco Use Types Packs/Day Years Used Date Smoking Tobacco: Never Assessed Comments Unknown Sex and Gender Information Value Date Recorded Sex Assigned at Not on file Legal Sex Female 4:17 AM FACIALIST Gender Identity Not on file Sexual Orientation Not on file documented as of this encounter Plan of Treatment Not on file documented as of this encounter Visit Diagnoses Diagnosis Acute sinusitis, unspecified- Primary documented in this encounter
--- OUTSIDE RECORDS SUMMARY | 2024-09-19 14:41 | XMS_ITS | Encounter Summary ---
Author Organization [employer] [facility] Address [address] [place] [address] Care Team Providers Care Asbestos Textile Supervisor Name Role Phone Unavailable Primary Care Provider Unavailabl e Encounter Details Date Type Department Care Team (Latest Contact Info) Description 05/27/2001 Outpatient Historical [facility] Gurwinder Felipe Jr., MD [address] [place] [phone] ATTEN-SURG DRESSNG/SUTUR (Primary Dx) Social History Tobacco Use Types Packs/Day Years Used Date Smoking Tobacco: Never Assessed Comments Unknown Sex and Gender Information Value Date Recorded Sex Assigned at Not on file Legal Sex Female 4:17 AM ROBOTIC WELDING OPERATOR Gender Identity Not on file Sexual Orientation Not on file documented as of this encounter Plan of Treatment Not on file documented as of this encounter Visit Diagnoses Diagnosis Attention to dressings and sutures- Primary documented in this encounter
--- OUTSIDE RECORDS SUMMARY | 2024-09-19 14:41 | XMS_ITS | Encounter Summary ---
Author Organization [facility] Address [address] [facility] Attn: [place] [address] Care Team Providers Care Spa Coordinator Name Role Phone Unavailable Primary Care Provider Unavailabl e Encounter Details Date Type Department Care Team (Late st Contact Info) Description 05/22/2001 Outpatient Historical Matteo Inman, Gurwinder Mora MD [address] [place] [address] Social History Tobacco Use Types Packs/Day Years Used Date Smoking Tobacco: Never Assessed Comments Unknown Sex and Gender Information Value Date Recorded Sex Assigned at Not on file Legal Sex Female 4:17 AM VENDOR QUALITY SUPERVISOR Gender Identity Not on file Sexual Orientation Not on file documented as of this encounter Plan of Treatment Not on file documented as of this encounter Visit Diagnoses Not on filedocumented in this encounter
[2024-09-19 15:05] VITALS: BP 179/107; PULSE 85; RESP 16; TEMP 36.9; O2SAT 96; BMI 20.5
--- NOTE | 2024-09-19 15:13 | ECG_ITS ---
[employer] [facility] [facility] Date: 2024-09-19 Pat Name: Ivan Peguero Department: Room: Gender: Female Tanner Rotary Drum Continuous Process: : 1945 Requested By: Albert Fuller Order Number: [id number] Reading MD: Measurements Intervals [place] Rate: 78 P: 159 [place]: 185 QRS: -58 QRSD: 152 T: 20 QT: 447 QTc: 511 Interpretive Statements ELECTRONIC ATRIAL PACEMAKER RIGHT BUNDLE BRANCH BLOCK [120+ ms QRS DURATION, UPRIGHT V1, 40+ ms S IN I/aVL/V4/V5/V6] LEFT ANTERIOR FASCICULAR BLOCK [QRS AXIS <= -45, QR IN I, RS IN II] VOLTAGE CRITERIA FOR LVH [MEETS CRITERIA IN ONE OF: R(aVL), S(V1), R(V5), R(V5/V6)+S(V1)] POSSIBLE LATERAL MYOCARDIAL INFARCTION , OF INDETERMINATE AGE [30 ms Q WAVE IN I/aVL/V5/V6] No previous ECG available for comparison [email or web address]
[2024-09-19 17:00] VITALS: BP 177/59; PULSE 79
--- NOTE | 2024-09-19 17:13 | ED_ITS ---
HPI - Recheck/Abnormal Lab/Rx 2 General: Chief Complaint: Recheck/Abnormal Lab/Rx Stated Complaint: abn labs (sent by [facility]) Time Seen by Provider: 09/19/24 16:45 Source: patient Mode of arrival: ambulatory Limitations: no limitations History of Present Illness: This patient states she is here because she was told her potassium is low. She states she had blood work obtained at the pain clinic on Sunday and was informed today that she had a low potassium. She does not recall the number. She has a history of chronic pain and that is why she was being evaluated in the pain clinic. She denies any recent illness to include nausea vomiting diarrhea etc. She states she has been taking all her prescribed medications faithfully. She has recently had a electronic pacemaker placed for what she describes as palpitations. Related Data Home Medications ?Medication ?Instructions ?Recorded ?Confirmed oxycodone 10 mg tablet 10 - 20 mg PO Q4H PRN Pain, 11/19/23 08/24/24 Moderate amiodarone 200 mg tablet 200 mg PO DAILY 07/03/2404/19 atorvastatin 40 mg tablet 40 mg PO DAILY 08/06/2404/19 pantoprazole 40 mg tablet,delayed 40 mg PO BID 5 08/24/24 release ropinirole 0.5 mg tablet 0.5 mg PO BEDTIME 08/06/24 0 08/24/24 Previous Rx's ?Medication ?Instructions ?Recorded Donnelver Lam Toe Elevator Tender #1 ea 10/03/22 cyanocobalamin (vitamin B-12) 1,000 mcg PO DAILY #90 t abs 05/16/24 1,000 mcg tablet (Vitamin B-12) levothyroxine 75 mcg tablet 75 mcg PO QAM #90 tabs amlodipine 10 mg tablet 10 mg PO DAILY #90 tabs 05/25 aripiprazole 5 mg tablet 5 mg PO .qpm #30 tabs hydrocodone 5 mg-acetaminophen 325 1 tab PO Q6H PRN pa in #14 tabs 08/06/24 mg tablet bupropion HCl 150 mg 24 hr tablet, 150 mg PO QAM #30 t abs 08/12/24 extended release (Wellbutrin XL) ferrous gluconate 324 mg (38 mg See Rx Instructions .R oute 08/22/24 iron) tablet .COMPLEX #180 tabs sertraline 25 mg tablet See Rx Instructions .Route 0 08/22/24 .COMPLEX #100 tabs polyethylene glycol 3350 17 17 g PO DAILY #850 grams 0 08/24/24 gram/dose oral powder (Purelax) cefdinir 300 mg capsule 300 mg PO BID #14 caps 09/02 lisinopril 20 mg tablet 20 mg PO DAILY #30 tabs 08/24 05/20 Allergies Allergy/AdvReac Type Severity Reaction Status Date / Time No Known Allergies Allergy Verified 09/19/24 15:07 Review of Systems 2 Const: Denies: fever(s) ENMT: Denies: throat pain, odynophagia, nasal discharge or nasal congestion Card: Denies: chest pain, palpitations, lightheadedness, syncope or pre- syncope Resp: Denies: dyspnea, productive cough or non-productive cough GI: Denies: abdominal pain, nausea, vomiting or diarrhea : Denies: flank pain, difficulty voiding or dysuria Musc: Reports: back pain and extremity pain; Denies: neck pain Skin/Breast: Denies: rash Neuro: Denies: headache(s), numbness in extremities or weakness in extremities Endo: Denies: polyuria or polydipsia PFSH ED 2 PFSH: Medical History Ventricular tachycardia (paroxysmal) Polymorphic ventricular tachycardia Pacemaker Long-term current use of opiate analgesic Goes to Dr[facility] pain clinic Depression, major Mitral regurgitation Aortic valve stenosis Mitral regurgitation Exocrine pancreatic insufficiency Renal insufficiency Hiatal hernia with GERD Hypothyroidism Enrolled in chronic care management Osteoporosis Atherosclerotic heart disease of [place] coronary artery with other forms of angina pectoris Abnormal cardiovascular stress test NSTEMI (non-ST elevated myocardial infarction) Hyperlipidemia Hypertension Past heart attack Pain management contract signed Restless legs syndrome Fibromyalgia Chronic low back pain Dr. Benavidez es pain meds Surgical History [facility] Hx of cardiac catheterization 1.19.25 OZH--no obstructive disease Hx of esophagogastroduodenoscopy 328.24 large hiatal hernia; gastritis Hx of colonoscopy 10.4.21 normal anastomosis S/P foot surgery History of mandibular surgery R jaw--has titanium plate; done for tumor--benign History of bowel resection benign growth H/O ileostomy Hx of appendectomy (~1973) Hx of hysterectomy (~1973) still has ovaries; had hyst due to bleeding; no cancer History of reversal of ileostomy Hx of tubal ligation Hx of foot surgery (~11/2013) RIGHT FOOT Family History Brother , BONE METS Cancer COLON CANCER Mother Heart disease Family history of thyroid problem Grandmother Heart disease Father Hyperlipidemia Bone cancer Social History Smoking and tobacco/nicotine status: former use of tobacco/nicotine Quit status (tobacco/nicotine): has quit using Year quit tobacco: quit 1989 Second hand smoke exposure: No Alcohol intake: never Substance/Drug Use: never Lives independently: Yes Household members: none Marital status: / Number of children: 3 Highest education level completed: Some College, No Degree Current occupational status: retired 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 Const: COMMON NORMALS: no acute distress and patient oriented x3 GENERAL APPEARANCE: cooperative and comfortable NUTRITIONAL APPEARANCE: thin HENMT: COMMON NORMALS: atraumatic, Normal nasal mucous membranes and turbinates present and moist oral mucous membranes HEAD & SCALP: atraumatic NOSE: Normal nasal mucous membranes and turbinates present Eye: COMMON NORMALS: Equal, round and reactive pupils present, EOMs intact bilaterally and conjunctivae normal CONJUNCTIVA: Yes conjunctivae normal P UPIL: Yes Equal, round and reactive pupils present Neck/C-Spine: COMMON NORMALS: full ROM, no lymphadenopathy, Thyroid normal and No carotid bruits THYROID: Thyroid normal Chest: OTHER: A implanted medical affairs specialist is noted in the left upper chest without any erythema or drainage etc. Resp: COMMON NORMALS: normal respiratory effort, No retractions and clear to auscultation bilaterally AUSCULTATION: clear to auscultation bilaterally Cardio: COMMON NORMALS: regular rate, regular rhythm, No murmurs present (Cardio) and Peripheral pulses 2+ throughout RATE: regular rate RHYTHM: r egular rhythm PERIPHERAL PULSES: Peripheral pulses 2+ throughout GI: COMMON NORMALS: Normal to inspection, nondistended, normoactive bowel sounds present, Soft to palpation and non-tender PALPATION: Yes Soft to palpation Back/Pelvis: COMMON NORMALS: thoracic and lumbar spine normal to inspection Extremity: COMMON NORMALS: normal to inspection, full ROM, no calf tenderness and no pedal edema Neuro: COMMON NORMALS: patient oriented x3, moves all extremities and no sensory deficits noted CRANIAL NERVES: Yes CN normal except as noted Psych: COMMON NORMALS: mental status grossly normal Skin: COMMON NORMALS: no rashes or lesions noted, no wounds and turgor normal GENERAL SKIN EXAM: no rashes or lesions noted and turgor normal Course 2 Reevaluation(s): Reevaluation #1: Patient's low magnesium is low as well as her low potassium. Will going replete both in the emergency department. She is on lisinopril so we will not continue on any oral potassium replacement as this should not be necessary. We will continue her on a 40 mg of oral magnesium daily to help maintain her potassium magnesium balance. Stable at this time to be discharged after infusion completed. Time: 18:18 Vital Signs: Vital signs: Vital Signs Temperature 98.4 F 09/19/24 15:05 Pulse Rate 79 09/19/24 17:00 Respiratory Rate 16 09/19/24 15:05 Blood Pressure 177/59 09/19/24 17:00 Pulse Oximetry 96 09/19/24 15:05 Oxygen Delivery Me thod Room Air 09/19/24 15:05 MDM - Recheck/Abnormal Lab/Rx Medical Decision Making Patient was sent to the emergency department by her pain clinic after she was notified today that her potassium level was low on a blood draw obtained on Sunday. The patient did not have any symptoms to include palpitations chest pain or other cardiovascular symptoms. She has not been recently ill with volume loss as might be indicated by vomiting or diarrhea etc. She has not had any other illness recently. Her clinical examination was unrevealing. Her EKG revealed a paced rhythm without any acute changes. Electrolytes were obtained which revealed a low potassium and magnesium. Due to the interplay between magnesium and potassium they were both repleted in the emergency department. Clinically stable to be discharged with primary care follow-up. She will be continued on a daily magnesium replacement. Lab Data I reviewed the patient's lab results. 09/19/24 16:52 Laboratory Results Sodium 144 mmol/L (136-145) 09/19/24 16:52 Potassium 2.9 mmol/L (3.5-5.1) L 09/19/24 16:52 Chloride 104 mmol/L (98-107) 09/19/24 16:52 Carbon Dioxide 23 mmol/L (22-29) 09/19/24 16:52 Anion Gap 19.9 (5-19) H 09/19/24 16:52 BUN 17 mg/dL (8-23) 09/19/24 16:52 Creatinine 0.9 mg/dL (0.5-0.9) 09/19/24 16:52 GFR Calculation Not Reportable 09/19/24 16:52 Glucose 93 mg/dL (65-115) 09/19/24 16:52 Calculated Osmolality 299 mOsm/kg (285-295) H 09/19/24 16:52 Calcium 9.8 mg/dL (8.5-10.5) 09/19/24 16:52 Magnesium 1.6 mg/dL (1.7-2.3) L 09/19/24 16:52 No radiology studies performed this visit EKG Data EKG 1: I personally reviewed and interpreted this EKG as follows: Interpretation: Resting EKG reveals a paced rhythm of 78 bpm. She has a right bundle branch block pattern without any evidence of concordant or discordant findings on her ST segments. No evidence of acute change at this time. No changes from July of this year's tracing. Discharge Plan Discharge Patient Disposition: Home Clinical Impression: Hypokalemia, Hypomagnesemia Condition: Stable Prescriptions: No Action amiodarone 200 mg tablet 200 mg PO DAILY (DME) Monet Roth Elevator Tender See Rx Instructions .Route .MEDSUPPLY Qty: 1 0RF Rx Instructions: As directed by HOME cyanocobalamin (vitamin B-12) [Vitamin B-12] 1,000 mcg tablet 1,000 mcg PO DAILY Qty: 90 3RF levothyroxine 75 mcg tablet 75 mcg PO QAM Qty: 90 0RF amlodipine 10 mg tablet 10 mg PO DAILY Qty: 90 1RF aripiprazole 5 mg tablet 5 mg PO .qpm Qty: 30 2RF bupropion HCl [Wellbutrin XL] 150 mg tablet extended release 24 hr 150 mg PO QAM Qty: 30 1RF ferrous gluconate 324 mg (38 mg iron) tablet See Rx Instructions .ROUTE .COMPLEX Qty: 180 0RF Dose Instruction: TAKE ONE TABLET BY MOUTH TWICE DAILY Rx Instructions: TAKE ONE TABLET BY MOUTH TWICE DAILY sertraline 25 mg tablet See Rx Instructions .ROUTE .COMPLEX Qty: 100 0RF Dose Instruction: TAKE ONE TABLET BY MOUTH EVERY DAY Rx Instructions: TAKE ONE TABLET BY MOUTH EVERY DAY lisinopril 20 mg tablet 20 mg PO DAILY Qty: 30 1RF hydrocodone-acetaminophen 5-325 mg tablet 1 tab PO Q6H PRN (Reason: pain) Qty: 14 0RF atorvastatin 40 mg tablet 40 mg PO DAILY ropinirole 0.5 mg tablet 0.5 mg PO BEDTIME pantoprazole 40 mg tablet,delayed release (DR/EC) 40 mg PO BID polyethylene glycol 3350 [Purelax] 17 gram/dose powder 17 g PO DAILY Qty: 850 0RF oxycodone 10 mg tablet 10 - 20 mg PO Q4H PRN (Reason: Pain, Moderate) Rx Instructions: TAKE 1 TO 2 TABLETS BY MOUTH EVERY 4 TO 6 HOURS NEEDED FOR PAIN max 6 PER day cefdinir 300 mg capsule 300 mg PO BID Qty: 14 0RF Discharge Orders: Discharge ED (Routine); Ordered 09/19/24 Ordered By: Albert Fuller Referrals: Lynda Lopez MD [Primary Care Provider, [facility]] Discharge Diet: Usual diet Discharge Activity: Resume usual activity Patient Instructions: Opioid Safety, Pain Management, Patient Portal & Jason Instructions Activity Restrictions/Additional Instructions: As we discussed while you are in the emergency department your salts in your blood specifically your potassium and magnesium were low. They have been replaced in the emergency department. We should not have to continue your potassium but this should be rechecked in approximately 2 to 3 weeks. We will have you take grvq-qar-[id number] strength magnesium 400 mg daily. This may be obtained in the vitamin and mineral department of any pharmacy. You should have your blood checked at your primary care office in approximately 2-3 weeks to ensure that everything remains normal. If you develop chest pain shortness of breath irregular heartbeat or any other symptoms of concern return to this or the nearest emergency department. Print Language: [place] Islander Coding Level of Care Code ED Power Tool Repair Technician for Gemma Church
[2024-09-19 17:59] LABS: Anion Gap 19.9 (5-19); Blood Urea Nitrogen 17 mg/dL (8-23); Calcium 9.8 mg/dL (8.5-10.5); Carbon Dioxide 23 mmol/L (22-29); Chloride 104 mmol/L (98-107); Glucose 93 mg/dL (65-115); Magnesium 1.6 mg/dL (1.7-2.3); Osmolality Calculated 299 mOsm/kg (285-295); Sodium 144 mmol/L (136-145)
--- NOTE | 2024-09-19 18:07 | ECG_ITS ---
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1945 Requested By: Albert Fuller Order Number: [id number] Reading MD: Measurements Intervals [place] Rate: 71 P: 135 IL: 204 QRS: -52 QRSD: 136 T: 3 QT: 478 QTc: 520 Interpretive Statements ELECTRONIC ATRIAL PACEMAKER RIGHT BUNDLE BRANCH BLOCK [120+ ms QRS DURATION, UPRIGHT V1, 40+ ms S IN I/aVL/V4/V5/V6] LEFT ANTERIOR FASCICULAR BLOCK [QRS AXIS <= -45, QR IN I, RS IN II] VOLTAGE CRITERIA FOR LVH [MEETS CRITERIA IN ONE OF: R(aVL), S(V1), R(V5), R(V5/V6)+S(V1)] No previous ECG available for comparison [email or web address]
[2024-09-19 18:10] LABS: Potassium 2.9 mmol/L (3.5-5.1)
[2024-09-19] MEDS: potassium bicarb 25 mEq Tablet 50 MEQ PO (18:25)
[2024-09-19] MEDS: magnesium sulfate premix 2 GM/50 ML PIGGYBACK IV (18:36)
[2024-09-19 19:00] VITALS: BP 154/97; PULSE 71; RESP 16; O2SAT 97
[2024-09-19 19:33] VITALS: BP 178/91; PULSE 70; RESP 16; O2SAT 96
== END 2024-09-19 19:47 | disposition home or self-care (01) ==
PROVIDERS: Emergency Provider Emergency Medicine; PCP Family Medicine
DX: E87.6 Hypokalemia (principal); E83.42 Hypomagnesemia; Z87.891 Personal history of nicotine dependence; Z95.0 Presence of cardiac pacemaker; E78.5 Hyperlipidemia, unspecified; I10 Essential (primary) hypertension
CPT/HCPCS: 36415; 80048; 83735; 93005; 96365; 99284; J3475; J9999

== ENCOUNTER 2024-10-01 06:50 | Emergency (ER) | payer MEDICARE, SELFPAY ==
--- OUTSIDE RECORDS SUMMARY | 2023-05-03 06:00 | XMS_ITS ---
Author Organization [facility] Address [address] [place] [address] Care Team Providers Care Pole Inspector Name Role Phone Tito Cartagena Primary Care Provider REASON FOR VISIT 3 month f/u Encounters Encounter [facility] Date [facility] [address] [place] [address] 05/03/2023 Tito Cartagena Plan Of Treatment No Information Progress Notes * Ivan LARADOB:1945 (78 yo F)Acc No.[id number]:05/03/2023 Progress Notes Patient: Ivan DEJESUS Provider: Francie Cartagena MD :1945 A ge:77 Y S ex:Female Date:05/03/2023 Address:[address] [place], [place] [id number] Subjective: * Chief Complaints: * 1 . 3 month f/u. * Medical History: Objective: * Vitals: Assessment: Plan: * Treatment: Forms: * Billing Information: * Visit Code: * Procedure Codes: Care Plan Details* * Electronic signature of Jose R Cartagena MD on 10/01/2024 at 07:01 AM CDT Sign off status: Pending * Provider: Francie Cartagena MD Date: 05/03/2023 Generated for Abby laguna/Fanoyg/eTransmitting on: 10/01/2024 07:01 AM CDT
--- OUTSIDE RECORDS SUMMARY | 2024-01-19 04:00 | XMS_ITS ---
Author Organization [facility] Address [address] [facility] [facility] [place] [address] Care Team Providers Care Eap Specialist Name Role Phone Tito Cartagena Primary Care Provider Migration, Provider Unavailable Unavailable REASON FOR VISIT EMR-[facility] Encounters Encounter Location Date Provider Diagnosis Migrated_Facility 0 0 01/19/2024 Provider Migration Plan Of Treatment No Information Progress Notes * Ivan LARADOB:1945 (78 yo F)Acc No.[id number]:01/19/2024 Patient: Ruchi HOBSONDEJAKalLove :1945 A ge:78 Y S ex:Female Address:[address] [place], [address] Subjective: * Chief Complaints: * E MR-Jignesh * Medical History: * Surgical History: * Hospitalization/Major Diagno stic Procedure: * Medications: Objective: * Vitals: * Physical Examination: Assessment: Plan: * Treatment: * Procedure Codes: * * Date:
--- OUTSIDE RECORDS SUMMARY | 2024-01-20 04:00 | XMS_ITS ---
Author Organization [facility] Address [address] [place] [place] [address] Care Team Providers Care Gymnastics Instructor Name Role Phone Tito Cartagena Primary Care Provider Migration, Provider Unavailable Unavailable Allergies Allergen (clinical [...] Notes * Ivan LARADOB:1945 (78 yo F)Acc No.[id number]:01/20/2024 Patient: Ivan DEJESUS :1945 A ge:78 Y S ex:Female Address:[address] [place], [address] Subjective: * Chief Complaints: * E MR-Jignesh * Medical History: * Surgical History: * Hospitalization/Major Diagno stic Procedure: * Medications: * Allergies: S ulfa Antibiotics: Allergy - Onset Date 2003-05-27 Objective: * Vitals: * Physical Examination: Assessment: Plan: * Treatment: * Procedure Codes: * * Date:
[2024-10-01 06:52] VITALS: BP 223/137; PULSE 80; RESP 16; TEMP 36.6; O2SAT 97
--- OUTSIDE RECORDS SUMMARY | 2024-10-01 07:00 | XMS_ITS | Encounter Summary ---
Author Organization [facility] Address [address] [place] [address] Care Team Providers Care Desk Director Name Role Phone Unavailable Primary Care Provider Unavailabl e Encounter Details Date Type Department Care Team (Latest Contact Info) Description 01/28/2002 Outpatient Historical 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
--- OUTSIDE RECORDS SUMMARY | 2024-10-01 07:00 | XMS_ITS | Encounter Summary ---
Author Organization [facility] Address 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 Will request she contact [employer] at and confirm she'll be at scheduled in-person visit 07/22. documented in this encounter Plan of Treatment Not on file documented as of this encounter Visit Diagnoses Not on filedocumented in this encounter
--- OUTSIDE RECORDS SUMMARY | 2024-10-01 07:00 | XMS_ITS | Encounter Summary ---
Author Organization [employer] [facility] Address [address] [place] [address] Care Team Providers Care Blood Bank Specialist Name Role Phone Unavailable Primary Care Provider Unavailabl e Encounter Details Date Type Department Care Team (Late st Contact Info) Description 02/26/2002 Outpatient Historical [facility] Matteo Inman, Gurwinder Mora MD [address] [place] [address] Social History Tobacco Use Types Packs/Day Years Used Date Smoking Tobacco: Never Assessed Comments Unknown Sex and Gender Information Value Date Recorded Sex Assigned at Not on file 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
--- OUTSIDE RECORDS SUMMARY | 2024-10-01 07:00 | XMS_ITS | Encounter Summary ---
Author Organization [employer] [facility] Address [address] [place] [address] Care Team Providers Care Collections And Archives Director Name Role Phone Unavailable Primary Care Provider Unavailabl e Encounter Details Date Type Department Care Team (Late st Contact Info) Description 05/13/2015 Lab Requisition [facility] [address] [place] [address] Magdi Crawford MD [address] [place] [address] Social History Tobacco Use Types Packs/Day Years Used Date Smoking Tobacco: Never Assessed Comments Unknown Sex and Gender Information Value Date Recorded Sex Assigned at Not on file Legal Sex Female 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 Gender Identity Not on file Sexual Orientation Not on file documented as of this encounter Plan of Treatment Not on file documented as of this encounter Procedures Procedure Name Priority Date/Time Associated Diagnosis Comments CBC WITH DIFFERENTIAL Routine 05/13/2015 3:30 AM MEAT PROCESSOR PHOSPHORUS Routine 05/13/2015 3:30 AM MEAT PROCESSOR MAGNESIUM LEVEL Routine 05/13/2015 3:30 AM MEAT PROCESSOR COMPREHENSIVE METABOLIC PANEL Routine 05/13/2015 3:30 AM MEAT PROCESSOR documented in this encounter Results * PHOSPHORUS (05/13/2015 3:30 AM MEAT PROCESSOR) PHOSPHORUS 3.7 2.5 - 4.9 mg/dL 05/13/2015 6:21 AM MEAT PROCESSOR [facility] [employer] [facility] Blood Collection / Unknown 05/13/2015 3:30 AM MEAT PROCESSOR 05/13/2015 5:33 AM MEAT PROCESSOR Magdi Crawford MD CHEMISTRY ORDERABLES Final Result Performing Organization Address [facility]/ZIP Co de Phone Number [facility] CLIA# [id number] [address] [place] [address] * MAGNESIUM LEVEL (05/13/2015 3:30 AM MEAT PROCESSOR) Pathologist [facility] MAGNESIUM 1.9 1.8 - 2.4 mg/dL 05/13/2015 6:21 AM [facility] Blood Collection / Unknown 05/13/2015 3:30 AM MEAT PROCESSOR 05/13/2015 5:33 AM MEAT PROCESSOR us Magdi Crawford MD CHEMISTRY ORDERABLES Final Result Performing Organization Address [facility] Co de Phone Number [facility] CLIA# [id number] [address] [place] [address] * (ABNORMAL) CBC WITH DIFFERENTIAL (05/13/2015 3:30 AM MEAT PROCESSOR) Pathologist [facility] WBC 12.9(H) 4.8 - 10.8 K/uL 05/13/2015 6:06 AM [facility] RBC 3.33(L) 4.20 - 5.40 M/uL 05/13/2015 6:06 AM [facility] HEMOGLOBIN 9.0(L) 12.0 - 16.0 g/dL 05/13/2015 6:06 AM [facility] HEMATOCRIT 29.5(L) 36.0 - 46.0 % 05/13/2015 6:06 AM [facility] MCV 88.6 84.0 - 103.0 fL 05/13/2015 6:06 AM [facility] MCH 27.0 27.0 - 34.0 pg 05/13/2015 6:06 AM [facility] MCHC 30.5 30.0 - 35.0 g/dL 05/13/2015 6:06 AM [facility] [employer] [facility] RDW 17.2(H) 11.0 - 14.5 % 05/13/2015 6:06 AM [facility] RDW-STDEV 53.8 37.0 - 54.0 fL 05/13/2015 6:06 AM [facility] [employer] [facility] PLATELETS 460(H) 140 - 440 K/uL 05/13/2015 6:06 AM [facility] [employer] [facility] MPV 10.3 8.9 - 12.8 fL 05/13/2015 6:06 AM [facility] [employer] [facility] NEUTROPHILS 60 42 - 75 % 05/13/2015 6:06 AM [facility] [employer] [facility] LYMPHOCYTES 25 24 - 44 % 05/13/2015 6:06 AM [facility] [employer] [facility] MONOCYTES 7 2 - 10 % 05/13/2015 6:06 AM [facility] [employer] [facility] EOSINOPHILS 3 0 - 7 % 05/13/2015 6:06 AM [facility] [employer] [facility] BASOPHILS 0 0 - 1 % 05/13/2015 6:06 AM [facility] [employer] [facility] NEUTROPHIL ABSOLUTE 7.80 2.00 - 8.00 K/uL 05/13/2015 6:06 AM [facility] [employer] [facility] LYMPHOCYTE ABSOLUTE 3.23 1.20 - 4.00 K/uL 05/13/2015 6:06 AM [facility] [employer] [facility] MONOCYTE ABSOLUTE 0.93(H) 0.10 - 0.60 K/uL 05/13/2015 6:06 AM [facility] [employer] [facility] EOSINOPHIL ABSOLUTE 0.40 0.00 - 0.70 K/uL 05/13/2015 6:06 AM [facility] [employer] [facility] BASOPHILS ABSOLUTE 0.04 0.00 - 0.20 K/uL 05/13/2015 6:06 AM [facility] [employer] [facility] IMMATURE GRANULOCYTES 4(H) 0 - 2 % 05/13/2015 6:06 AM [facility] [employer] [facility] IMMATURE GRANULOCYTES ABSOLUTE 0.51(H) 0.00 - 0.10 K/uL 05/13/2015 6:06 AM [facility] [employer] [facility] Blood Collection / Unknown 05/13/2015 3:30 AM MEAT PROCESSOR 05/13/2015 5:33 AM MEAT PROCESSOR us Magdi Crawford MD HEMATOLOGY ORDERABLES Final Result [facility] CLIA# [id number] [facility] [place] [address] * (ABNORMAL) COMPREHENSIVE METABOLIC PANEL (05/13/2015 3:30 AM MEAT PROCESSOR) SODIUM 139 136 - 145 mmol/L 05/13/2015 6:21 AM [facility] POTASSIUM 4.3 3.5 - 5.1 mmol/L 05/13/2015 6:21 AM [facility] CHLORIDE 105 98 - 107 mmol/L 05/13/2015 6:21 AM [facility] CO2 25 21 - 32 mmol/L 05/13/2015 6:21 AM [facility] CALCIUM 8.4 8.4 - 10.1 mg/dL 05/13/2015 6:21 AM [facility] BUN 19(H) 7 - 17 mg/dL 05/13/2015 6:21 AM [facility] CREATININE 0.46(L) 0.55 - 1.02 mg/dL 05/13/2015 6:21 AM [facility] GLUCOSE 125(H) 74 - 106 mg/dL 05/13/2015 6:21 AM [facility] TOTAL PROTEIN 6.3(L) 6.4 - 8.2 g/dL 05/13/2015 6:21 AM [facility] ALBUMIN 2.2(L) 3.4 - 5.0 g/dL 05/13/2015 6:21 AM [facility] BILIRUBIN TOTAL 0.5 0.2 - 1.0 mg/dL 05/13/2015 6:21 AM [facility] ALKALINE PHOSPHATASE 178(H) 25 - 100 U/L 05/13/2015 6:21 AM [facility] AST 18 15 - 37 U/L 05/13/2015 6:21 AM [facility] ALT 30 13 - 61 U/L 05/13/2015 6:21 AM [facility] GFR >60 >=60 mL/min/1. 73 sq meter 05/13/2015 6:21 AM [facility] Comment: eGFR has not been validated [...] mL/min/1. 73 sq meter 05/13/2015 6:21 AM [facility] ANION GAP 9 8 - 16 mmol/L 05/13/2015 6:21 AM [facility] Blood Collection / Unknown 05/13/2015 3:30 AM MEAT PROCESSOR 05/13/2015 5:33 AM MEAT PROCESSOR us Magdi Crawford MD CHEMISTRY ORDERABLES Final Result [facility] CLIA# [id number] [address] [place] [address] documented in this encounter Visit Diagnoses Not on filedocumented in this encounter
--- OUTSIDE RECORDS SUMMARY | 2024-10-01 07:00 | XMS_ITS | Encounter Summary ---
Author Organization [employer] [facility] Address [address] [place] [address] Care Team Providers Care It Support Consultant Name Role Phone Unavailable Primary Care Provider Unavailabl e Encounter Details Date Type Department Care Team (Late st Contact Info) Description 04/24/2015 Lab Requisition [facility] Laboratory Services [address] [place] [address] [place] [phone] Timmy Kellogg MD [address] [place] [address] Social History Tobacco Use Types Packs/Day Years Used Date Smoking Tobacco: Never Assessed Comments Unknown Sex and Gender Information Value Date Recorded Sex Assigned at Not on file Legal Sex Female 4:17 AM LETTER OF CREDIT CLERK Gender Identity Not on file Sexual Orientation Not on file documented as of this encounter Plan of Treatment Not on file documented as of this encounter Procedures Procedure Name Priority Date/Time Associated Diagnosis Comments CBC WITH DIFFERENTIAL Routine 04/24/2015 3:05 AM LETTER OF CREDIT CLERK BASIC METABOLIC PANEL Routine 04/24/2015 3:05 AM LETTER OF CREDIT CLERK documented in this encounter Results * (ABNORMAL) BASIC METABOLIC PANEL (04/24/2015 3:05 AM LETTER OF CREDIT CLERK) SODIUM 141 136 - 145 mmol/L 04/24/2015 5:40 AM LETTER OF CREDIT CLERK [facility] POTASSIUM 3.6 3.5 - 5.1 mmol/L 04/24/2015 5:40 AM LETTER OF CREDIT CLERK [facility] CHLORIDE 106 98 - 107 mmol/L 04/24/2015 5:40 AM LETTER OF CREDIT CLERK [facility] CO2 28 21 - 32 mmol/L 04/24/2015 5:[address] [facility] CALCIUM 7.3(L) 8.4 - 10.1 mg/dL 04/24/2015 5:[address] [facility] BUN 12 7 - 17 mg/dL 04/24/2015 5:[address] [facility] CREATININE 0.32(L) 0.55 - 1.02 mg/dL 04/24/2015 5:[address] [facility] GLUCOSE 145(H) 74 - 106 mg/dL 04/24/2015 5:[address] [facility] GFR >60 >=60 mL/min/1. 73 sq meter 04/24/2015 5:[address] [facility] Comment: eGFR has not been validated for [...] mL/min/1. 73 sq meter 04/24/2015 5:[address] [facility] ANION GAP 7(L) 8 - 16 mmol/L 04/24/2015 5:[address] [facility] Blood Collection / Unknown 04/24/2015 3:05 AM LETTER OF CREDIT CLERK 04/24/2015 5:03 AM [facility] us Timmy Kellogg MD CHEMISTRY ORDERABLES Final Res ult [facility] CLIA# [id number] [address] [place] [address] * (ABNORMAL) CBC WITH DIFFERENTIAL (04/24/2015 3:05 AM [facility]) WBC 19.3(H) 4.8 - 10.8 K/uL 04/24/2015 5:[address] [facility] RBC 2.72(L) 4.20 - 5.40 M/uL 04/24/2015 5:[address] [facility] HEMOGLOBIN 8.1(L) 12.0 - 16.0 g/dL 04/24/2015 5:[address] [facility] HEMATOCRIT 25.1(L) 36.0 - 46.0 % 04/24/2015 5:[address] [facility] MCV 92.3 84.0 - 103.0 fL 04/24/2015 5:[address] [facility] MCH 29.8 27.0 - 34.0 pg 04/24/2015 5:[address] [facility] MCHC 32.3 30.0 - 35.0 g/dL 04/24/2015 5:[address] [facility] RDW 16.7(H) 11.0 - 14.5 % 04/24/2015 5:[address] [facility] RDW-STDEV 54.7(H) 37.0 - 54.0 fL 04/24/2015 5:[address] [facility] PLATELETS 449(H) 140 - 440 K/uL 04/24/2015 5:[address] [facility] MPV 10.4 8.9 - 12.8 fL 04/24/2015 5:[address] [facility] NEUTROPHILS 87(H) 42 - 75 % 04/24/2015 5:[address] [facility] LYMPHOCYTES 4(L) 24 - 44 % 04/24/2015 5:[address] [facility] MONOCYTES 6 2 - 10 % 04/24/2015 5:[address] [facility] EOSINOPHILS 1 0 - 7 % 04/24/2015 5:[address] [facility] BASOPHILS 0 0 - 1 % 04/24/2015 5:[address] [facility] NEUTROPHIL ABSOLUTE 16.83(H) 2.00 - 8.00 K/uL 04/24/2015 5:[address] [facility] LYMPHOCYTE ABSOLUTE 0.82(L) 1.20 - 4.00 K/uL 04/24/2015 5:[address] [facility] MONOCYTE ABSOLUTE 1.12(H) 0.10 - 0.60 K/uL 04/24/2015 5:[address] [facility] EOSINOPHIL ABSOLUTE 0.19 0.00 - 0.70 K/uL 04/24/2015 5:[address] [facility] BASOPHILS ABSOLUTE 0.05 0.00 - 0.20 K/uL 04/24/2015 5:[address] [facility] IMMATURE GRANULOCYTES 2 0 - 2 % 04/24/2015 5:[address] [facility] IMMATURE GRANULOCYTES ABSOLUTE 0.33(H) 0.00 - 0.10 K/uL 04/24/2015 5:[address] [facility] Blood Collection / Unknown 04/24/2015 3:05 AM LETTER OF CREDIT CLERK 04/24/2015 5:03 AM LETTER OF CREDIT CLERK us Timmy Kellogg MD HEMATOLOGY ORDERABLES Final Re sult [facility] CLIA# [id number] [address] [place] [address] documented in this encounter Visit Diagnoses Not on filedocumented in this encounter
--- OUTSIDE RECORDS SUMMARY | 2024-10-01 07:00 | XMS_ITS | Encounter Summary ---
Author Organization [facility] Address [address] [place] [address] Care Team Providers Care Generator Repairer Name Role Phone Unavailable Primary Care Provider Unavailabl e Encounter Details Date Type Department Care Team (Latest Contact Info) Description 02/03/2002 Outpatient Historical [facility]3] Int 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
--- OUTSIDE RECORDS SUMMARY | 2024-10-01 07:00 | XMS_ITS | Encounter Summary ---
Author Organization [employer] [facility] Address [address] [place] [address] Care Team Providers Care Assembler Latches And Springs Name Role Phone Unavailable Primary Care Provider Unavailabl e Encounter Details Date Type Department Care Team (Late st Contact Info) Description 04/04/2002 Outpatient Historical [facility] Matteo Inman, Gurwinder Mora MD [address] [place] [address] Social History Tobacco Use Types Packs/Day Years Used Date Smoking Tobacco: Never Assessed Comments Unknown Sex and Gender Information Value Date Recorded Sex Assigned at Not on file Legal Sex Female 4:17 AM MORTGAGE ANALYST Gender Identity Not on file Sexual Orientation Not on file documented as of this encounter Plan of Treatment Not on file documented as of this encounter Visit Diagnoses Not on filedocumented in this encounter
--- OUTSIDE RECORDS SUMMARY | 2024-10-01 07:00 | XMS_ITS | Encounter Summary ---
Author Organization [employer] [facility] Address [address] [place] [address] Care Team Providers Care Technical Analyst Name Role Phone Unavailable Primary Care Provider Unavailabl e Encounter Details Date Type Department Care Team (Latest Contact Info) Description 12/25/2002 Outpatient Historical [facility] Gurwinder Felipe Jr., MD [address] [place] [phone] Diverticulosis of colon (Primary Dx); HYPERTENSION NOS Social History Tobacco Use Types Packs/Day Years Used Date Smoking Tobacco: Never Assessed Comments Unknown Sex and Gender Information Value Date Recorded Sex Assigned at Not on file Legal Sex Female 4:17 AM TUBE PUSHER Gender Identity Not on file Sexual Orientation Not on file documented as of this encounter Plan of Treatment Not on file documented as of this encounter Visit Diagnoses Diagnosis Diverticulosis of colon- Primary Diverticulosis of colon (without mention of hemorrhage) Unspecified essential hypertension documented in this encounter
--- OUTSIDE RECORDS SUMMARY | 2024-10-01 07:00 | XMS_ITS | Encounter Summary ---
Author Organization [employer] [facility] Address [address] [place] [address] Care Team Providers Care Sack Filler Name Role Phone Unavailable Primary Care Provider Unavailabl e Encounter Details Date Type Department Care Team (Latest Contact Info) Description 04/04/2002 Outpatient Historical [facility] Gurwinder Felipe Jr., MD [address] [place] [phone] HYPERTENSION NOS (Primary Dx); OSTEOPOROSIS NOS Social History Tobacco Use Types Packs/Day Years Used Date Smoking Tobacco: Never Assessed Comments Unknown Sex and Gender Information Value Date Recorded Sex Assigned at Not on file Legal Sex Female 4:17 AM VENTILATION EQUIPMENT TENDER Gender Identity Not on file Sexual Orientation Not on file documented as of this encounter Plan of Treatment Not on file documented as of this encounter Visit Diagnoses Diagnosis Unspecified essential hypertension- Primary Osteoporosis, unspecified documented in this encounter
--- OUTSIDE RECORDS SUMMARY | 2024-10-01 07:00 | XMS_ITS | Encounter Summary ---
Author Organization [facility] Address [address] [place] [address] Care Team Providers Care Turf Sales Person Name Role Phone Unavailable Primary Care Provider Unavailabl e Encounter Details Date Type Department Care Team (Late st Contact Info) Description 04/22/2015 Lab Requisition [facility] Laboratory Services [address] [place] [address] [place] [address] Magdi Crawford MD [address] [place] [address] Social History Tobacco Use Types Packs/Day Years Used Date Smoking Tobacco: Never Assessed Comments Unknown Sex and Gender Information Value Date Recorded Sex Assigned at Not on file Legal Sex Female 4:17 AM ADULT BASIC EDUCATION INSTRUCTOR Gender Identity Not on file Sexual Orientation Not on file documented as of this encounter Plan of Treatment Not on file documented as of this encounter Procedures Procedure Name Priority Date/Time Associated Diagnosis Comments CBC WITH DIFFERENTIAL Routine 04/22/2015 3:30 AM ADULT BASIC EDUCATION INSTRUCTOR MAGNESIUM LEVEL Routine 04/22/2015 3:30 AM ADULT BASIC EDUCATION INSTRUCTOR VANCOMYCIN LEVEL RANDOM Routine 04/22/2015 3:30 AM ADULT BASIC EDUCATION INSTRUCTOR LIPID PANEL Routine 04/22/2015 3:30 AM ADULT BASIC EDUCATION INSTRUCTOR COMPREHENSIVE METABOLIC PANEL Routine 04/22/2015 3:30 AM ADULT BASIC EDUCATION INSTRUCTOR documented in this encounter Results * MAGNESIUM LEVEL (04/22/2015 3:30 AM ADULT BASIC EDUCATION INSTRUCTOR) MAGNESIUM 2.0 1.8 - 2.4 mg/dL 04/22/2015 6:[address] [facility] Blood Collection / Unknown 04/22/2015 3:30 AM ADULT BASIC EDUCATION INSTRUCTOR 04/22/2015 5:06 AM ADULT BASIC EDUCATION INSTRUCTOR us Magdi Crawford MD CHEMISTRY ORDERABLES Final Result Performing Organization Address [facility]/ZIP Co de Phone Number [facility] CLIA# [id number] [address] [place] [address] * VANCOMYCIN LEVEL RANDOM (04/22/2015 3:30 AM ADULT BASIC EDUCATION INSTRUCTOR) Pathologist [facility] VANCOMYCIN, RANDOM 5.5 5.0 - 50.0 ug/mL 04/22/2015 6:[address] [facility] Blood Collection / Unknown 04/22/2015 3:30 AM ADULT BASIC EDUCATION INSTRUCTOR 04/22/2015 5:06 AM ADULT BASIC EDUCATION INSTRUCTOR Narrative [facility] - 04/22/2015 6:09 AM ADULT BASIC EDUCATION INSTRUCTOR Vancomycin Therapeutic Ranges: Vancomycin Trough: 10 - 20 mcg/mL Vancomycin Peak: 25 - 50 mcg/mL us Magdi Crawford MD CHEMISTRY ORDERABLES Final Result Performing Organization Address [facility] Co de Phone Number [facility] CLIA# [id number] [address] [place] [address] * (ABNORMAL) CBC WITH DIFFERENTIAL (04/22/2015 3:30 AM ADULT BASIC EDUCATION INSTRUCTOR) Pathologist [facility] WBC 25.0(H) 4.8 - 10.8 K/uL 04/22/2015 6:[address] [facility] RBC 2.95(L) 4.20 - 5.40 M/uL 04/22/2015 6:[address] [facility] HEMOGLOBIN 8.6(L) 12.0 - 16.0 g/dL 04/22/2015 6:[address] [facility] HEMATOCRIT 26.6(L) 36.0 - 46.0 % 04/22/2015 6:[address] [facility] MCV 90.2 84.0 - 103.0 fL 04/22/2015 6:[address] [facility] MCH 29.2 27.0 - 34.0 pg 04/22/2015 6:[address] [facility] MCHC 32.3 30.0 - 35.0 g/dL 04/22/2015 6:[address] [facility] RDW 16.6(H) 11.0 - 14.5 % 04/22/2015 6:[address] [facility] RDW-STDEV 52.3 37.0 - 54.0 fL 04/22/2015 6:[address] [facility] PLATELETS 438 140 - 440 K/uL 04/22/2015 6:[address] [facility] MPV 11.4 8.9 - 12.8 fL 04/22/2015 6:[address] [facility] NEUTROPHILS 84(H) 42 - 75 % 04/22/2015 6:[address] [facility] LYMPHOCYTES 6(L) 24 - 44 % 04/22/2015 6:[address] [facility] MONOCYTES 4 2 - 10 % 04/22/2015 6:[address] [facility] EOSINOPHILS 1 0 - 7 % 04/22/2015 6:[address] [facility] BASOPHILS 0 0 - 1 % 04/22/2015 6:[address] [facility] NEUTROPHIL ABSOLUTE 21.01(H) 2.00 - 8.00 K/uL 04/22/2015 6:[address] [facility] LYMPHOCYTE ABSOLUTE 1.44 1.20 - 4.00 K/uL 04/22/2015 6:[address] [facility] MONOCYTE ABSOLUTE 1.09(H) 0.10 - 0.60 K/uL 04/22/2015 6:[address] [facility] EOSINOPHIL ABSOLUTE 0.19 0.00 - 0.70 K/uL 04/22/2015 6:[address] [facility] BASOPHILS ABSOLUTE 0.05 0.00 - 0.20 K/uL 04/22/2015 6:[address] [facility] IMMATURE GRANULOCYTES 5(H) 0 - 2 % 04/22/2015 6:[address] [facility] IMMATURE GRANULOCYTES ABSOLUTE 1.17(H) 0.00 - 0.10 K/uL 04/22/2015 6:[address] [facility] Blood Collection / Unknown 04/22/2015 3:30 AM ADULT BASIC EDUCATION INSTRUCTOR 04/22/2015 5:06 AM ADULT BASIC EDUCATION INSTRUCTOR Magdi Crawford MD HEMATOLOGY ORDERABLES Final Result [facility] CLIA# [id number] [address] [place] [address] * (ABNORMAL) LIPID PANEL (04/22/2015 3:30 AM ADULT BASIC EDUCATION INSTRUCTOR) CHOLESTEROL <50 <200 mg/dL 04/22/2015 6:[address] [facility] TRIGLYCERIDE 113 <150 mg/dL 04/22/2015 6:[address] [facility] HDL 13(L) 40 - 59 mg/dL 04/22/2015 6:[address] [facility] LDL CALCULATED <100 mg/dL 04/22/2015 6:[address] [facility] Comment:Chol <50 calculation not valid NON-HDL CHOLESTEROL <130 mg/dL 04/22/2015 6:[address] [facility] Comment:Chol <50 calculation not valid Blood Collection / Unknown 04/22/2015 3:30 AM ADULT BASIC EDUCATION INSTRUCTOR 04/22/2015 5:06 AM ADULT BASIC EDUCATION INSTRUCTOR Narrative [facility] - 04/22/2015 6:25 AM ADULT BASIC EDUCATION INSTRUCTOR TOTAL CHOLESTEROL mg/dL Desirable <200 Borderline high [...] Magdi Crawford MD CHEMISTRY ORDERABLES Final Result [facility] CLCOURTNEY# [id number] [facility] [place] [address] * (ABNORMAL) COMPREHENSIVE METABOLIC PANEL (04/22/2015 3:30 AM ADULT BASIC EDUCATION INSTRUCTOR) SODIUM 140 136 - 145 mmol/L 04/22/2015 6:[address] [facility] POTASSIUM 3.9 3.5 - 5.1 mmol/L 04/22/2015 6:[address] [facility] CHLORIDE 107 98 - 107 mmol/L 04/22/2015 6:[address] [facility] CO2 25 21 - 32 mmol/L 04/22/2015 6:[address] [facility] CALCIUM 7.3(L) 8.4 - 10.1 mg/dL 04/22/2015 6:[address] [facility] BUN 19(H) 7 - 17 mg/dL 04/22/2015 6:[address] [facility] CREATININE 0.48(L) 0.55 - 1.02 mg/dL 04/22/2015 6:[address] [facility] GLUCOSE 111(H) 74 - 106 mg/dL 04/22/2015 6:[address] [facility] TOTAL PROTEIN 4.4(L) 6.4 - 8.2 g/dL 04/22/2015 6:[address] [facility] ALBUMIN 1.3(L) 3.4 - 5.0 g/dL 04/22/2015 6:[address] [facility] BILIRUBIN TOTAL 0.5 0.2 - 1.0 mg/dL 04/22/2015 6:[address] [facility] ALKALINE PHOSPHATASE 53 25 - 100 U/L 04/22/2015 6:[address] [facility] AST 15 15 - 37 U/L 04/22/2015 6:[address] [facility] ALT 11(L) 13 - 61 U/L 04/22/2015 6:[address] [facility] GFR >60 >=60 mL/min/1. 73 sq meter 04/22/2015 6:[address] [facility] Comment: eGFR has not been validated [...] mL/min/1. 73 sq meter 04/22/2015 6:[address] [facility] ANION GAP 8 8 - 16 mmol/L 04/22/2015 6:[address] [facility] Blood Collection / Unknown 04/22/2015 3:30 AM [facility] 04/22/2015 5:06 AM [facility] - 04/22/2015 6:09 AM [facility] The reference range for ALT has changed from its previous range of 12-78 U/L as of 03/31/2015. us Magdi Crawford MD CHEMISTRY ORDERABLES Final Result [facility] CLIA# [id number] [facility] [place] [address] documented in this encounter Visit Diagnoses Not on filedocumented in this encounter
--- OUTSIDE RECORDS SUMMARY | 2024-10-01 07:00 | XMS_ITS | Encounter Summary ---
Author Organization [employer] [facility] Address [address] [place] [address] Care Team Providers Care Investor Relations Associate Name Role Phone Unavailable Primary Care Provider Unavailabl e Encounter Details Date Type Department Care Team (Latest Contact Info) Description 01/07/2003 Outpatient Historical [facility] Gurwinder Felipe Jr., MD [address] [place] [phone] OSTEOARTHROS NOS-UNSPEC (Primary Dx) Social History Tobacco Use Types Packs/Day Years Used Date Smoking Tobacco: Never Assessed Comments Unknown Sex and Gender Information Value Date Recorded Sex Assigned at Not on file Legal Sex Female 4:17 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
--- OUTSIDE RECORDS SUMMARY | 2024-10-01 07:00 | XMS_ITS | Encounter Summary ---
Author Organization [employer] [facility] Address [address] [place] [address] Care Team Providers Care Lean Leader Name Role Phone Unavailable Primary Care Provider Unavailabl e Encounter Details Date Type Department Care Team (Latest Contact Info) Description 12/19/2002 Outpatient Historical [facility] Gurwinder Felipe Jr., MD [address] [place] [phone] Gynecologic examination (Primary Dx); ABN FIND-STOOL CONTENTS-OCC BLOOD; NEOPLASM NOS, SITE NEC; SCREENING MAL NEOP-COLON Social History Tobacco Use Types Packs/Day Years Used Date Smoking Tobacco: Never Assessed Comments Unknown Sex and Gender Information Value Date Recorded Sex Assigned at Not on file Legal Sex Female 4:17 AM CHECKROOM ATTENDANT Gender Identity Not on file Sexual Orientation [...]
--- OUTSIDE RECORDS SUMMARY | 2024-10-01 07:00 | XMS_ITS | Encounter Summary ---
Author Organization [employer] [facility] Address [address] [place] [address] Care Team Providers Care Gripper Attacher Name Role Phone Unavailable Primary Care Provider Unavailabl e Encounter Details Date Type Department Care Team (Latest Contact Info) Description 01/08/2002 Outpatient Historical [facility] Gurwinder Felipe Jr., MD [facility] [place] [phone] CHEST PAIN NOS (Primary Dx); SHORTNESS OF BREATH; HYPERTENSION NOS Social History Tobacco Use Types Packs/Day Years Used Date Smoking Tobacco: Never Assessed Comments Unknown Sex and Gender Information Value Date Recorded Sex Assigned at Not on file Legal Sex Female 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
--- OUTSIDE RECORDS SUMMARY | 2024-10-01 07:00 | XMS_ITS | Encounter Summary ---
Author Organization [facility] Address [address] [place] [address] Care Team Providers Care Appraiser Land Name Role Phone Unavailable Primary Care Provider Unavailabl e Encounter Details Date Type Department Care Team (Late st Contact Info) Description 04/25/2015 Lab Requisition [facility] Laboratory Services [address] [place] [address] [place] [address] Magdi Crawford MD [address] [place] [address] Social History Tobacco Use Types Packs/Day Years Used Date Smoking Tobacco: Never Assessed Comments Unknown Sex and Gender Information Value Date Recorded Sex Assigned at Not on file Legal Sex Female 4:17 AM DIRECTOR COMPENSATION Gender Identity Not on file Sexual Orientation Not on file documented as of this encounter Plan of Treatment Not on file documented as of this encounter Procedures Procedure Name Priority Date/Time Associated Diagnosis Comments VANCOMYCIN LEVEL TROUGH Routine 04/25/2015 2:20 PM DIRECTOR COMPENSATION documented in this encounter Results * (ABNORMAL) VANCOMYCIN LEVEL TROUGH (04/25/2015 2:20 PM DIRECTOR COMPENSATION) VANCOMYCIN, TROUGH 4.5(LL) 10.0 - 20.0 ug/mL 04/25/2015 3:14 PM DIRECTOR COMPENSATION [facility] Comment:Critical value. Resu lts called to jose niño by CARA SCHMITT at 3:14 PM on 04/25/2015 and read back verified. Blood Collection / Unknown 04/25/2015 2:20 PM DIRECTOR COMPENSATION 04/25/2015 2:40 PM DIRECTOR COMPENSATION us Magdi Crawford MD CHEMISTRY ORDERABLES Final Result Performing Organization Address City/State/[facility] Co de Phone Number [facility]# [id number] [address] [place] [address] documented in this encounter Visit Diagnoses Not on filedocumented in this encounter
--- OUTSIDE RECORDS SUMMARY | 2024-10-01 07:00 | XMS_ITS | Encounter Summary ---
Author Organization [facility] Address [address] [place] [address] Care Team Providers Care Road Engineer Freight Name Role Phone Unavailable Primary Care Provider Unavailabl e Encounter Details Date Type Department Care Team (Late st Contact Info) Description 05/17/2015 Lab Requisition [facility] Laboratory Services [address] [place] [address] Magid Crawford MD [address] [place] [address] Social History Tobacco Use Types Packs/Day Years Used Date Smoking Tobacco: Never Assessed Comments Unknown Sex and Gender Information Value Date Recorded Sex Assigned at Not on file Legal Sex Female 4:17 AM TRAVEL DIRECTOR Gender Identity Not on file Sexual Orientation Not on file documented as of this encounter Plan of Treatment Not on file documented as of this encounter Procedures Procedure Name Priority Date/Time Associated Diagnosis Comments CBC WITH DIFFERENTIAL Routine 05/17/2015 3:30 AM TRAVEL DIRECTOR TRIGLYCERIDE Routine 05/17/2015 3:30 AM TRAVEL DIRECTOR PREALBUMIN Routine 05/17/2015 3:30 AM TRAVEL DIRECTOR LIPID PANEL Routine 05/17/2015 3:30 AM TRAVEL DIRECTOR COMPREHENSIVE METABOLIC PANEL Routine 05/17/2015 3:30 AM TRAVEL DIRECTOR documented in this encounter Results * (ABNORMAL) TRIGLYCERIDE (05/17/2015 3:30 AM TRAVEL DIRECTOR) TRIGLYCERIDE 238(H) <150 mg/dL 05/17/2015 6:24 AM [facility] Blood Collection / Unknown 05/17/2015 3:30 AM TRAVEL DIRECTOR 05/17/2015 5:20 AM TRAVEL DIRECTOR Narrative [facility] - 05/17/2015 6:24 AM TRAVEL DIRECTOR TRIGLYCERIDES mg/dL Normal < 150 Borderline High 150 - 199 High 200 - 499 Very High >= 500 Based on AHA/NCEP Guidelines. Magdi Crawford MD CHEMISTRY ORDERABLES Final Result Performing Organization Address City/[facility]/ZIP Co de Phone Number [facility] CLIA# [id number] [address] [place] [address] * PREALBUMIN (05/17/2015 3:30 AM TRAVEL DIRECTOR) PREALBUMIN 33 20 - 40 mg/dL 05/17/2015 6:24 AM [facility] Blood Collection / Unknown 05/17/2015 3:30 AM TRAVEL DIRECTOR 05/17/2015 5:20 AM TRAVEL DIRECTOR Magdi Crawford MD CHEMISTRY ORDERABLES Final Result Performing Organization Address City/[facility] Co de Phone Number [facility] CLIA# [id number] [address] [place], [place] [address] * (ABNORMAL) CBC WITH DIFFERENTIAL (05/17/2015 3:30 AM TRAVEL DIRECTOR) WBC 13.2(H) 4.8 - 10.8 K/uL 05/17/2015 5:51 AM [facility] RBC 3.44(L) 4.20 - 5.40 M/uL 05/17/2015 5:51 AM [facility] HEMOGLOBIN 9.1(L) 12.0 - 16.0 g/dL 05/17/2015 5:51 AM [facility] HEMATOCRIT 30.5(L) 36.0 - 46.0 % 05/17/2015 5:51 AM [facility] MCV 88.7 84.0 - 103.0 fL 05/17/2015 5:51 AM [facility] MCH 26.5(L) 27.0 - 34.0 pg 05/17/2015 5:51 AM [facility] MCHC 29.8(L) 30.0 - 35.0 g/dL 05/17/2015 5:51 AM [facility] RDW 17.6(H) 11.0 - 14.5 % 05/17/2015 5:51 AM [facility] RDW-STDEV 55.2(H) 37.0 - 54.0 fL 05/17/2015 5:51 AM [facility] PLATELETS 464(H) 140 - 440 K/uL 05/17/2015 5:51 AM [facility] MPV 9.9 8.9 - 12.8 fL 05/17/2015 5:51 AM [facility] NEUTROPHILS 58 42 - 75 % 05/17/2015 5:51 AM [facility] LYMPHOCYTES 31 24 - 44 % 05/17/2015 5:51 AM [facility] MONOCYTES 9 2 - 10 % 05/17/2015 5:51 AM [facility] EOSINOPHILS 2 0 - 7 % 05/17/2015 5:51 AM [facility] BASOPHILS 0 0 - 1 % 05/17/2015 5:51 AM [facility] NEUTROPHIL ABSOLUTE 7.58 2.00 - 8.00 K/uL 05/17/2015 5:51 AM [facility] LYMPHOCYTE ABSOLUTE 4.02(H) 1.20 - 4.00 K/uL 05/17/2015 5:51 AM [facility] MONOCYTE ABSOLUTE 1.19(H) 0.10 - 0.60 K/uL 05/17/2015 5:51 AM [facility] EOSINOPHIL ABSOLUTE 0.23 0.00 - 0.70 K/uL 05/17/2015 5:51 AM [facility] BASOPHILS ABSOLUTE 0.03 0.00 - 0.20 K/uL 05/17/2015 5:51 AM [facility] IMMATURE GRANULOCYTES 1 0 - 2 % 05/17/2015 5:51 AM [facility] IMMATURE GRANULOCYTES ABSOLUTE 0.14(H) 0.00 - 0.10 K/uL 05/17/2015 5:51 AM [facility] Blood Collection / Unknown 05/17/2015 3:30 AM TRAVEL DIRECTOR 05/17/2015 5:20 AM TRAVEL DIRECTOR us Magdi Crawford MD HEMATOLOGY ORDERABLES Final Result [facility] CLIA# [id number] [address] [place] [address] * (ABNORMAL) LIPID PANEL (05/17/2015 3:30 AM TRAVEL DIRECTOR) CHOLESTEROL 139 <200 mg/dL 05/17/2015 6:24 AM [facility] TRIGLYCERIDE 238(H) <150 mg/dL 05/17/2015 6:24 AM [facility] HDL 26(L) 40 - 59 mg/dL 05/17/2015 6:24 AM [facility] LDL CALCULATED 65 <100 mg/dL 05/17/2015 6:24 AM [facility] NON-HDL CHOLESTEROL 113 <130 mg/dL 05/17/2015 6:24 AM [facility] Blood Collection / Unknown 05/17/2015 3:30 AM TRAVEL DIRECTOR 05/17/2015 5:20 AM TRAVEL DIRECTOR Narrative [facility] - 05/17/2015 6:24 AM TRAVEL DIRECTOR TOTAL CHOLESTEROL mg/dL Desirable <200 Borderline high [...] Magdi Crawford MD CHEMISTRY ORDERABLES Final Result [facility] CLIA# [id number] [address] [place] [address] * (ABNORMAL) COMPREHENSIVE METABOLIC PANEL (05/17/2015 3:30 AM TRAVEL DIRECTOR) SODIUM 138 136 - 145 mmol/L 05/17/2015 6:24 AM [facility] POTASSIUM 4.4 3.5 - 5.1 mmol/L 05/17/2015 6:24 AM [facility] CHLORIDE 107 98 - 107 mmol/L 05/17/2015 6:24 AM [facility] CO2 22 21 - 32 mmol/L 05/17/2015 6:24 AM [facility] CALCIUM 8.1(L) 8.4 - 10.1 mg/dL 05/17/2015 6:24 AM [facility] BUN 18(H) 7 - 17 mg/dL 05/17/2015 6:24 AM [facility] CREATININE 0.54(L) 0.55 - 1.02 mg/dL 05/17/2015 6:24 AM [facility] GLUCOSE 76 74 - 106 mg/dL 05/17/2015 6:24 AM [facility] TOTAL PROTEIN 6.3(L) 6.4 - 8.2 g/dL 05/17/2015 6:24 AM [facility] ALBUMIN 2.4(L) 3.4 - 5.0 g/dL 05/17/2015 6:24 AM [facility] BILIRUBIN TOTAL 0.5 0.2 - 1.0 mg/dL 05/17/2015 6:24 AM [facility] ALKALINE PHOSPHATASE 173(H) 25 - 100 U/L 05/17/2015 6:24 AM [facility] AST 20 15 - 37 U/L 05/17/2015 6:24 AM [facility] ALT 24 13 - 61 U/L 05/17/2015 6:24 AM [facility] GFR >60 >=60 mL/min/1. 73 sq meter 05/17/2015 6:24 AM [facility] Comment: eGFR has not been validated for [...] mL/min/1. 73 sq meter 05/17/2015 6:24 AM [facility] ANION GAP 9 8 - 16 mmol/L 05/17/2015 6:24 AM [facility] Blood Collection / Unknown 05/17/2015 3:30 AM TRAVEL DIRECTOR 05/17/2015 5:20 AM TRAVEL DIRECTOR us Magdi Crawford MD CHEMISTRY ORDERABLES Final Result [facility] CLIA# [id number] [address] [place] [address] documented in this encounter Visit Diagnoses Not on filedocumented in this encounter
--- OUTSIDE RECORDS SUMMARY | 2024-10-01 07:00 | XMS_ITS | Encounter Summary ---
Author Organization [facility] Address [address] [place] [address] Care Team Providers Care Grain Elevator Superintendent Name Role Phone Unavailable Primary Care Provider Unavailabl e Encounter Details Date Type Department Care Team (Late st Contact Info) Description 05/17/2015 Lab Requisition [facility] Laboratory Services [facility] [address] [place] [address] Magdi Crawfrod MD [address] [place] [address] Social History Tobacco Use Types Packs/Day Years Used Date Smoking Tobacco: Never Assessed Comments Unknown Sex and Gender Information Value Date Recorded Sex Assigned at Not on file Legal Sex Female 4:17 AM MEDICAL VOUCHER CLERK Gender Identity Not on file Sexual Orientation Not on file documented as of this encounter Plan of Treatment Not on file documented as of this encounter Procedures Procedure Name Priority Date/Time Associated Diagnosis Comments PHOSPHORUS Routine 05/17/2015 3:30 AM MEDICAL VOUCHER CLERK MAGNESIUM LEVEL Routine 05/17/2015 3:30 AM MEDICAL VOUCHER CLERK documented in this encounter Results * PHOSPHORUS (05/17/2015 3:30 AM MEDICAL VOUCHER CLERK) PHOSPHORUS 3.9 2.5 - 4.9 mg/dL 05/17/2015 8:49 AM MEDICAL VOUCHER CLERK [facility] Blood Venipuncture - Floor Collect / Unknown 05/17/2015 3:30 AM MEDICAL VOUCHER CLERK 05/17/2015 8:28 AM MEDICAL VOUCHER CLERK us Magdi Crawford MD CHEMISTRY ORDERABLES Final Result Performing Organization Address City/[facility]/ZIP Co de Phone Number [facility] [employer] [facility] CLIA# [id number] [address] [place], [place] [id number] * MAGNESIUM LEVEL (05/17/2015 3:30 AM MEDICAL VOUCHER CLERK) MAGNESIUM 1.9 1.8 - 2.4 mg/dL 05/17/2015 8:49 AM MEDICAL VOUCHER CLERK [facility] Blood Venipuncture - Floor Collect / Unknown 05/17/2015 3:30 AM MEDICAL VOUCHER CLERK 05/17/2015 8:28 AM MEDICAL VOUCHER CLERK us Magdi Crawford MD CHEMISTRY ORDERABLES Final Result Performing Organization Address [facility] Co de Phone Number [facility] CLIA# [id number] [address] [place] [address] documented in this encounter Visit Diagnoses Not on filedocumented in this encounter
--- OUTSIDE RECORDS SUMMARY | 2024-10-01 07:00 | XMS_ITS | Encounter Summary ---
Author Organization [facility] Address [address] [place] [address] Care Team Providers Care Automobile And Property Underwriter Name Role Phone Unavailable Primary Care Provider Unavailabl e Encounter Details Date Type Department Care Team (Late st Contact Info) Description 05/10/2015 Lab Requisition [facility] Laboratory Services [address] [place] [place] [address] Magdi Crawford MD [address] [place] [address] Social History Tobacco Use Types Packs/Day Years Used Date Smoking Tobacco: Never Assessed Comments Unknown Sex and Gender Information Value Date Recorded Sex Assigned at Not on file Legal Sex Female 4:17 AM ALTERATION MANAGER Gender Identity Not on file Sexual Orientation Not on file documented as of this encounter Plan of Treatment Not on file documented as of this encounter Procedures Procedure Name Priority Date/Time Associated Diagnosis Comments PHOSPHORUS Routine 05/10/2015 7:00 AM ALTERATION MANAGER documented in this encounter Results * PHOSPHORUS (05/10/2015 7:00 AM ALTERATION MANAGER) PHOSPHORUS 3.1 2.5 - 4.9 mg/dL 05/10/2015 8:49 AM ALTERATION MANAGER [facility] [employer] [facility] Blood Collection / Unknown 05/10/2015 7:00 AM ALTERATION MANAGER 05/10/2015 8:02 AM ALTERATION MANAGER us Magdi Crawford MD CHEMISTRY ORDERABLES Final Result [facility] [employer] [facility]# [id number] [address] [place] [address] documented in this encounter Visit Diagnoses Not on filedocumented in this encounter
--- OUTSIDE RECORDS SUMMARY | 2024-10-01 07:00 | XMS_ITS | Encounter Summary ---
Author Organization [facility] Address [address] [place] [address] Care Team Providers Care Campus Aide Name Role Phone Unavailable Primary Care Provider Unavailabl e Encounter Details Date Type Department Care Team (Late st Contact Info) Description 02/03/2002 Outpatient Historical [facility] [address] [place] [address] Jeramie Cartagena MD [address] [facility] [address] [place] [address] CHEST PAIN NOS (Primary Dx); HYPERTENSION NOS Social History Tobacco Use Types Packs/Day Years Used Date Smoking Tobacco: Never Assessed Comments Unknown Sex and Gender Information Value Date Recorded Sex Assigned at Not on file Legal Sex Female 4:17 AM A P SUPERVISOR Gender Identity Not on file Sexual Orientation Not on file documented as of this encounter Plan of Treatment Not on file documented as of this encounter Visit Diagnoses Diagnosis Chest pain, unspecified- Primary Unspecified essential hypertension documented in this encounter
--- OUTSIDE RECORDS SUMMARY | 2024-10-01 07:00 | XMS_ITS | Encounter Summary ---
Author Organization [email or web address] [facility] Address [address] [place] [address] Care Team Providers Care Straight Pin Making Machine Operator Name Role Phone Unavailable Primary Care Provider Unavailabl e Encounter Details Date Type Department Care Team (Latest Contact Info) Description 02/26/2002 Outpatient Historical [facility] Gurwinder Felipe Jr., MD [address] [place] [phone] HYPERTENSION NOS (Primary Dx); BRONCHITIS NOS; OSTEOPOROSIS NOS Social History Tobacco Use Types Packs/Day Years Used Date Smoking Tobacco: Never Assessed Comments Unknown Sex and Gender Information Value Date Recorded Sex Assigned at Not on file Legal Sex Female 4:17 AM DAY CARE HOME MOTHER Gender Identity Not on file Sexual Orientation Not on file documented as of this encounter Plan of Treatment Not on file documented as of this encounter Visit Diagnoses Diagnosis Unspecified essential hypertension- Primary Bronchitis, not specified as acute or chronic Osteoporosis, unspecified documented in this encounter
--- OUTSIDE RECORDS SUMMARY | 2024-10-01 07:00 | XMS_ITS | Encounter Summary ---
Author Organization [facility] Address [address] [place] [address] Care Team Providers Care Personal Care Attendant Name Role Phone Unavailable Primary Care Provider Unavailabl e Encounter Details Date Type Department Care Team (Late st Contact Info) Description 04/24/2015 Lab Requisition [facility] Laboratory Services [address] [place] [place] [address] Magdi Crawford MD [address] [place] [address] Social History Tobacco Use Types Packs/Day Years Used Date Smoking Tobacco: Never Assessed Comments Unknown Sex and Gender Information Value Date Recorded Sex Assigned at Not on file Legal Sex Female 4:17 AM FARM OWNER OPERATOR Gender Identity Not on file Sexual Orientation Not on file documented as of this encounter Plan of Treatment Not on file documented as of this encounter Procedures Procedure Name Priority Date/Time Associated Diagnosis Comments URINALYSIS WITH REFLEX CULTURE Routine 04/24/2015 3:00 PM FARM OWNER OPERATOR URINE CULTURE Routine 04/24/2015 3:00 PM FARM OWNER OPERATOR documented in this encounter Results * (ABNORMAL) URINE CULTURE (04/24/2015 3:00 PM FARM OWNER OPERATOR) CULTURE >= 100,000 cfu/mL Anjana albicans(A) 04/29/2015 8:07 AM FARM OWNER OPERATOR [facility] Urine URINE SPECIMEN OBTAINED BY CLEAN CATCH PROCEDURE / Unknown Collection / Unknown 04/24/2015 3:00 PM FARM OWNER OPERATOR 04/24/2015 5:01 PM FARM OWNER OPERATOR Narrative Organism Antibiotic Method Susceptibility Anjana albicans FLUCONAZOLE <=1.0: Susceptible us Magdi Crawford MD MICROBIOLOGY - GENERAL JONATHAN RAI Final Result [facility] CLIA# [id number] [address] [place] [address] * (ABNORMAL) URINALYSIS WITH REFLEX CULTURE (04/24/2015 3:00 PM FARM OWNER OPERATOR) COLOR UA Yellow Pale to dark yellow 04/24/2015 5:21 PM [facility] CLARITY UA Slightly Cloudy(A) Clear 04/24/2015 5:21 PM [facility] SPECIFIC GRAVITY UA 1.013 1.003 - 1.035 04/24/2015 5:21 PM [facility] PH UA 6.0 5.0 - 8.0 04/24/2015 5:21 PM [facility] LEUKOCYTE ESTERASE UA Trace(A) Negative 04/24/2015 5:21 PM [facility] NITRITE UA Negative Negative 04/24/2015 5:21 PM [facility] PROTEIN UA Negative Negative 04/24/2015 5:21 PM [facility] GLUCOSE UA 3+(A) Negative 04/24/2015 5:21 PM [facility] KETONES UA Negative Negative 04/24/2015 5:21 PM [facility] UROBILINOGEN UA <2.0 <2.0 mg/dL 04/24/2015 5:21 PM [facility] BILIRUBIN UA Negative Negative 04/24/2015 5:21 PM [facility] BLOOD UA Negative Negative 04/24/2015 5:21 PM [facility] WBC UA 0-2 0 - 2 /hpf 04/24/2015 5:21 PM [facility] RBC UA 3-5(A) 0 - 2 /hpf 04/24/2015 5:21 PM [facility] BACTERIA UA 1+(A) Negative /hpf 04/24/2015 5:21 PM FARM OWNER OPERATOR [facility] EPITHELIAL CELLS, URINE 0-5 0 - 5 /hpf 04/24/2015 5:21 PM [facility] YEAST, BUDDING Present(A) Absent 04/24/2015 5:21 PM [facility] Urine Collection / Unknown 04/24/2015 3:00 PM FARM OWNER OPERATOR 04/24/2015 5:01 PM FARM OWNER OPERATOR Narrative [facility] - 04/24/2015 5:21 PM FARM OWNER OPERATOR Based on results, a urine culture has been reflexed. us Magdi Crawford MD URINE ORDERABLES Final Resu lt [facility] CLIA# [id number] [address] [place] [address] documented in this encounter Visit Diagnoses Not on filedocumented in this encounter
--- OUTSIDE RECORDS SUMMARY | 2024-10-01 07:00 | XMS_ITS | Encounter Summary ---
Author Organization [employer] [facility] Address [address] [place] [address] Care Team Providers Care Handbag Stitcher Name Role Phone Unavailable Primary Care Provider Unavailabl e Encounter Details Date Type Department Care Team (Latest Contact Info) Description 01/15/2002 Outpatient Historical [facility] Gurwinder Felipe Jr., MD [address] [place] [phone] HYPERTENSION NOS (Primary Dx); FOLLOW-UP EXAM NOS Social History Tobacco Use Types Packs/Day Years Used Date Smoking Tobacco: Never Assessed Comments Unknown Sex and Gender Information Value Date Recorded Sex Assigned at Not on file Legal Sex Female 4:17 AM OUTPATIENT CODING SPECIALIST Gender Identity Not on file Sexual Orientation Not on file documented as of this encounter Plan of Treatment Not on file documented as of this encounter Visit Diagnoses Diagnosis Unspecified essential hypertension- Primary Unspecified follow-up examination documented in this encounter
--- OUTSIDE RECORDS SUMMARY | 2024-10-01 07:00 | XMS_ITS | Encounter Summary ---
Author Organization [facility] [facility] Address [address] [place] [address] Care Team Providers Care Quality Assurance Group Leader Name Role Phone Unavailable Primary Care Provider Unavailabl e Encounter Details Date Type Department Care Team (Late st Contact Info) Description 04/22/2015 Lab Requisition [facility] Laboratory Services [address] [place] [address] [place] [address] Magdi Crawford MD [address] [place] [address] Social History Tobacco Use Types Packs/Day Years Used Date Smoking Tobacco: Never Assessed Comments Unknown Sex and Gender Information Value Date Recorded Sex Assigned at Not on file Legal Sex Female 4:17 AM EMS EDUCATOR Gender Identity Not on file Sexual Orientation Not on file documented as of this encounter Plan of Treatment Not on file documented as of this encounter Procedures Procedure Name Priority Date/Time Associated Diagnosis Comments PREALBUMIN Routine 04/22/2015 3:30 AM EMS EDUCATOR PHOSPHORUS Routine 04/22/2015 3:30 AM EMS EDUCATOR documented in this encounter Results * PHOSPHORUS (04/22/2015 3:30 AM EMS EDUCATOR) PHOSPHORUS 2.5 2.5 - 4.9 mg/dL 04/22/2015 5:54 AM EMS EDUCATOR [facility] Blood Collection / Unknown 04/22/2015 3:30 AM EMS EDUCATOR 04/22/2015 5:07 AM EMS EDUCATOR us Magdi Crawford MD CHEMISTRY ORDERABLES Final Result [facility] [employer] [facility] CLIA# [id number] [address] [place] [address] * (ABNORMAL) PREALBUMIN (04/22/2015 3:30 AM EMS EDUCATOR) PREALBUMIN 17(L) 20 - 40 mg/dL 04/22/2015 5:54 AM EMS EDUCATOR [facility] [employer] [facility] Blood Collection / Unknown 04/22/2015 3:30 AM EMS EDUCATOR 04/22/2015 5:07 AM EMS EDUCATOR Magdi Crawford MD CHEMISTRY ORDERABLES Final Result Performing Organization Address [facility] Co de Phone Number [facility] [employer] [facility] CLIA# [id number] [address] [place], [place] [id number] documented in this encounter Visit Diagnoses Not on filedocumented in this encounter
--- OUTSIDE RECORDS SUMMARY | 2024-10-01 07:01 | XMS_ITS | Encounter Summary ---
Author Organization [facility] Address [address] [place] [address] Care Team Providers Care Circulation Manager Name Role Phone Unavailable Primary Care Provider Unavailabl e Encounter Details Date Type Department Care Team (Late st Contact Info) Description 05/09/2015 Lab Requisition [facility] Laboratory Services [address] [place] [address] Magdi Crawford MD [address] [place] [address] Social History Tobacco Use Types Packs/Day Years Used Date Smoking Tobacco: Never Assessed Comments Unknown Sex and Gender Information Value Date Recorded Sex Assigned at Not on file Legal Sex Female 4:17 AM SOLAR SALES ASSESSOR Gender Identity Not on file Sexual Orientation Not on file documented as of this encounter Plan of Treatment Not on file documented as of this encounter Procedures Procedure Name Priority Date/Time Associated Diagnosis Comments CBC WITHOUT DIFFERENTIAL Routine 05/09/2015 4:50 AM SOLAR SALES ASSESSOR BASIC METABOLIC PANEL Routine 05/09/2015 4:50 AM SOLAR SALES ASSESSOR documented in this encounter Results * (ABNORMAL) CBC WITHOUT DIFFERENTIAL (05/09/2015 4:50 AM SOLAR SALES ASSESSOR) WBC 11.3(H) 4.8 - 10.8 K/uL 05/09/2015 6:00 AM SOLAR SALES ASSESSOR [facility] RBC 3.06(L) 4.20 - 5.40 M/uL 05/09/2015 6:00 AM SOLAR SALES ASSESSOR [facility] HEMOGLOBIN 8.3(L) 12.0 - 16.0 g/dL 05/09/2015 6:00 AM [facility] HEMATOCRIT 26.9(L) 36.0 - 46.0 % 05/09/2015 6:00 AM [facility] MCV 87.9 84.0 - 103.0 fL 05/09/2015 6:00 AM [facility] MCH 27.1 27.0 - 34.0 pg 05/09/2015 6:00 AM [facility] MCHC 30.9 30.0 - 35.0 g/dL 05/09/2015 6:00 AM [facility] PLATELETS 457(H) 140 - 440 K/uL 05/09/2015 6:00 AM [facility] MPV 10.4 8.9 - 12.8 fL 05/09/2015 6:00 AM [facility] RDW 16.5(H) 11.0 - 14.5 % 05/09/2015 6:00 AM [facility] RDW-STDEV 51.9 37.0 - 54.0 fL 05/09/2015 6:00 AM [facility] Blood Collection / Unknown 05/09/2015 4:50 AM SOLAR SALES ASSESSOR 05/09/2015 5:47 AM SOLAR SALES ASSESSOR us Magdi Crawford MD HEMATOLOGY ORDERABLES Final Result [id number] [address] [place] [address] * (ABNORMAL) BASIC METABOLIC PANEL (05/09/2015 4:50 AM SOLAR SALES ASSESSOR) SODIUM 137 136 - 145 mmol/L 05/09/2015 6:38 AM [facility] POTASSIUM 4.6 3.5 - 5.1 mmol/L 05/09/2015 6:38 AM [facility] CHLORIDE 104 98 - 107 mmol/L 05/09/2015 6:38 AM [facility] CO2 27 21 - 32 mmol/L 05/09/2015 6:38 AM [facility] CALCIUM 8.1(L) 8.4 - 10.1 mg/dL 05/09/2015 6:38 AM [facility] BUN 18(H) 7 - 17 mg/dL 05/09/2015 6:38 AM [facility] CREATININE 0.47(L) 0.55 - 1.02 mg/dL 05/09/2015 6:38 AM [facility] GLUCOSE 93 74 - 106 mg/dL 05/09/2015 6:38 AM [facility] GFR >60 >=60 mL/min/1. 73 sq meter 05/09/2015 6:38 AM [facility] Comment: eGFR has not been validated [...] mL/min/1. 73 sq meter 05/09/2015 6:38 AM [facility] ANION GAP 6(L) 8 - 16 mmol/L 05/09/2015 6:38 AM [facility] Blood Collection / Unknown 05/09/2015 4:50 AM SOLAR SALES ASSESSOR 05/09/2015 5:47 AM [facility] us Magdi Crawford MD CHEMISTRY ORDERABLES Final Result [facility] CLIA# [id number] [address] [place] [address] documented in this encounter Visit Diagnoses Not on filedocumented in this encounter
--- OUTSIDE RECORDS SUMMARY | 2024-10-01 07:01 | XMS_ITS | Encounter Summary ---
Author Organization [employer] [facility] Address [address] [place] [address] Care Team Providers Care Glove Stitcher Name Role Phone Unavailable Primary Care Provider Unavailabl e Encounter Details Date Type Department Care Team (Late st Contact Info) Description 05/02/2015 Lab Requisition [facility] General Laboratory Services [address] [place] [phone] Timmy Kellogg MD [address] [place] [address] Social History Tobacco Use Types Packs/Day Years Used Date Smoking Tobacco: Never Assessed Comments Unknown Sex and Gender Information Value Date Recorded Sex Assigned at Not on file Legal Sex Female 4:17 AM IC DESIGNER STANDARD CELLS Gender Identity Not on file Sexual Orientation Not on file documented as of this encounter Plan of Treatment Not on file documented as of this encounter Procedures Procedure Name Priority Date/Time Associated Diagnosis Comments CBC WITH DIFFERENTIAL Routine 05/02/2015 3:50 AM IC DESIGNER STANDARD CELLS MAGNESIUM LEVEL Routine 05/02/2015 3:50 AM IC DESIGNER STANDARD CELLS BASIC METABOLIC PANEL Routine 05/02/2015 3:50 AM IC DESIGNER STANDARD CELLS documented in this encounter Results * MAGNESIUM LEVEL (05/02/2015 3:50 AM IC DESIGNER STANDARD CELLS) MAGNESIUM 1.8 1.8 - 2.4 mg/dL 05/02/2015 6:16 AM IC DESIGNER STANDARD CELLS [facility] [employer] [facility] Blood Collection / Unknown 05/02/2015 3:50 AM IC DESIGNER STANDARD CELLS 05/02/2015 5:27 AM IC DESIGNER STANDARD CELLS us Timmy Kellogg MD CHEMISTRY ORDERABLES Final Res ult [facility] CLIA# [id number] [address] [place] [address] * (ABNORMAL) CBC WITH DIFFERENTIAL (05/02/2015 3:50 AM IC DESIGNER STANDARD CELLS) Pathologist [facility] WBC 9.2 4.8 - 10.8 K/uL 05/02/2015 5:54 AM [facility] RBC 2.70(L) 4.20 - 5.40 M/uL 05/02/2015 5:54 AM [facility] HEMOGLOBIN 7.6(L) 12.0 - 16.0 g/dL 05/02/2015 5:54 AM [facility] HEMATOCRIT 24.0(L) 36.0 - 46.0 % 05/02/2015 5:54 AM [facility] MCV 88.9 84.0 - 103.0 fL 05/02/2015 5:54 AM [facility] MCH 28.1 27.0 - 34.0 pg 05/02/2015 5:54 AM [facility] MCHC 31.7 30.0 - 35.0 g/dL 05/02/2015 5:54 AM [facility] RDW 16.3(H) 11.0 - 14.5 % 05/02/2015 5:54 AM [facility] RDW-STDEV 52.1 37.0 - 54.0 fL 05/02/2015 5:54 AM [facility] PLATELETS 431 140 - 440 K/uL 05/02/2015 5:54 AM [facility] MPV 9.7 8.9 - 12.8 fL 05/02/2015 5:54 AM [facility] [employer] [facility] NEUTROPHILS 68 42 - 75 % 05/02/2015 5:54 AM [facility] LYMPHOCYTES 16(L) 24 - 44 % 05/02/2015 5:54 AM [facility] MONOCYTES 11(H) 2 - 10 % 05/02/2015 5:54 AM [facility] EOSINOPHILS 3 0 - 7 % 05/02/2015 5:54 AM [facility] BASOPHILS 0 0 - 1 % 05/02/2015 5:54 AM [facility] NEUTROPHIL ABSOLUTE 6.30 2.00 - 8.00 K/uL 05/02/2015 5:54 AM [facility] LYMPHOCYTE ABSOLUTE 1.46 1.20 - 4.00 K/uL 05/02/2015 5:54 AM [facility] MONOCYTE ABSOLUTE 1.05(H) 0.10 - 0.60 K/uL 05/02/2015 5:54 AM [facility] EOSINOPHIL ABSOLUTE 0.29 0.00 - 0.70 K/uL 05/02/2015 5:54 AM [facility] BASOPHILS ABSOLUTE 0.04 0.00 - 0.20 K/uL 05/02/2015 5:54 AM [facility] IMMATURE GRANULOCYTES 1 0 - 2 % 05/02/2015 5:54 AM [facility] IMMATURE GRANULOCYTES ABSOLUTE 0.08 0.00 - 0.10 K/uL 05/02/2015 5:54 AM [facility] Blood Collection / Unknown 05/02/2015 3:50 AM IC DESIGNER STANDARD CELLS 05/02/2015 5:27 AM [facility] Timmy Kellogg MD HEMATOLOGY ORDERABLES Final Re sult [facility] CLIA# [id number] [address] [place] [address] * (ABNORMAL) BASIC METABOLIC PANEL (05/02/2015 3:50 AM IC DESIGNER STANDARD CELLS) SODIUM 141 136 - 145 mmol/L 05/02/2015 6:15 AM [facility] POTASSIUM 3.2(L) 3.5 - 5.1 mmol/L 05/02/2015 6:15 AM [facility] CHLORIDE 103 98 - 107 mmol/L 05/02/2015 6:15 AM [facility] CO2 29 21 - 32 mmol/L 05/02/2015 6:15 AM [facility] CALCIUM 7.9(L) 8.4 - 10.1 mg/dL 05/02/2015 6:15 AM [facility] BUN 15 7 - 17 mg/dL 05/02/2015 6:15 AM [facility] CREATININE 0.46(L) 0.55 - 1.02 mg/dL 05/02/2015 6:15 AM [facility] GLUCOSE 126(H) 74 - 106 mg/dL 05/02/2015 6:15 AM [facility] GFR >60 >=60 mL/min/1. 73 sq meter 05/02/2015 6:15 AM [facility] Comment: eGFR has not been [...] mL/min/1. 73 sq meter 05/02/2015 6:15 AM [facility] ANION GAP 9 8 - 16 mmol/L 05/02/2015 6:15 AM [facility] Blood Collection / Unknown 05/02/2015 3:50 AM IC DESIGNER STANDARD CELLS 05/02/2015 5:27 AM IC DESIGNER STANDARD CELLS us Timmy Kellogg MD CHEMISTRY ORDERABLES Final Res ult [facility] CLIA# [id number] [address] [place] [address] documented in this encounter Visit Diagnoses Not on filedocumented in this encounter
--- OUTSIDE RECORDS SUMMARY | 2024-10-01 07:01 | XMS_ITS | Encounter Summary ---
Author Organization [employer] [facility] Address [address] [place] [address] Care Team Providers Care Carpenter Bridge Name Role Phone Unavailable Primary Care Provider Unavailabl e Encounter Details Date Type Department Care Team (Latest Contact Info) Description 03/28/2001 Outpatient Historical [facility] Matteo Inman, Gurwinder Mora MD [address] [place] [phone] ACUTE SINUSITIS NOS (Primary Dx); HYPERTENSION NOS; ACUTE URI NOS; OSTEOPOROSIS NOS Social History Tobacco Use Types Packs/Day Years Used Date Smoking Tobacco: Never Assessed Comments Unknown Sex and Gender Information Value Date Recorded Sex Assigned at Not on file Legal Sex Female 4:17 AM MRI SPECIALIST Gender Identity Not on file Sexual Orientation Not on file documented as of this encounter Plan of Treatment Not on file documented as of this encounter Visit Diagnoses Diagnosis Acute sinusitis, unspecified- Primary Unspecified essential hypertension Acute upper respiratory infections of unspecified site Osteoporosis, unspecified documented in this encounter
--- OUTSIDE RECORDS SUMMARY | 2024-10-01 07:01 | XMS_ITS | Encounter Summary ---
Author Organization [employer] [facility] Address [address] [place] [address] Care Team Providers Care Swinging Cut Off Saw Operator Name Role Phone Unavailable Primary Care Provider Unavailabl e Encounter Details Date Type Department Care Team (Latest Contact Info) Description 04/21/1999 Outpatient Historical [facility] Matteo Inman, Gurwinder Mora MD [address] [place] [phone] Acute sinusitis, unspecified (Primary Dx) Social History Tobacco Use Types Packs/Day Years Used Date Smoking Tobacco: Never Assessed Comments Unknown Sex and Gender Information Value Date Recorded Sex Assigned at Not on file Legal Sex Female 4:17 AM LOAN BROKER Gender Identity Not on file Sexual Orientation Not on file documented as of this encounter Plan of Treatment Not on file documented as of this encounter Visit Diagnoses Diagnosis Acute sinusitis, unspecified- Primary documented in this encounter
--- OUTSIDE RECORDS SUMMARY | 2024-10-01 07:01 | XMS_ITS | Encounter Summary ---
Author Organization [facility] Address [address] [place] [address] Care Team Providers Care Biology Professor Name Role Phone Unavailable Primary Care Provider Unavailabl e Encounter Details Date Type Department Care Team (Late st Contact Info) Description 05/09/2015 Lab Requisition [facility] Laboratory Services [address] [place] [address] [place] [address] Magdi Crawford MD [address] [place] [address] Social History Tobacco Use Types Packs/Day Years Used Date Smoking Tobacco: Never Assessed Comments Unknown Sex and Gender Information Value Date Recorded Sex Assigned at Not on file Legal Sex Female 4:17 AM RETOUCHING OPERATOR Gender Identity Not on file Sexual Orientation Not on file documented as of this encounter Plan of Treatment Not on file documented as of this encounter Procedures Procedure Name Priority Date/Time Associated Diagnosis Comments C. DIFFICILE DETECTION Routine 05/09/2015 4:50 AM RETOUCHING OPERATOR documented in this encounter Results * CLOSTRIDIUM DIFFICILE TOXIN (05/09/2015 4:50 AM RETOUCHING OPERATOR) TOXIGENIC C DIFFICILE Not Detected Not Detected 05/09/2015 7:00 AM RETOUCHING OPERATOR [facility] Soccer Manager [facility] Stool Collection / Unknown 05/09/2015 4:50 AM RETOUCHING OPERATOR 05/09/2015 5:29 AM RETOUCHING OPERATOR Narrative [facility] Soccer Manager [facility] - 05/09/2015 7:00 AM RETOUCHING OPERATOR This assay is used to detect Clostridium difficile toxin B gene sequences in unformed stool specimens. If toxin is not detected, but clinical suspicion is high please consult ID for consultation and potential repeat testing. This test should not be used as a test of cure. us Magdi Crawford MD MICROBIOLOGY - GENERAL JONATHAN RAI Final Result [facility]ORAT[facility]# [id number] [facility] [place] [address] documented in this encounter Visit Diagnoses Not on filedocumented in this encounter
--- OUTSIDE RECORDS SUMMARY | 2024-10-01 07:01 | XMS_ITS | Encounter Summary ---
Author Organization [employer] [facility] Address [address] [place] [address] Care Team Providers Care Care Team Assistant Name Role Phone Unavailable Primary Care Provider Unavailabl e Encounter Details Date Type Department Care Team (Latest Contact Info) Description 12/16/1999 Outpatient Historical [facility] Gurwinder Felipe Jr., MD [facility] [place] [phone] Unspecified adjustment reaction (Primary Dx); Depressive disorder, not elsewhere classified Social History Tobacco Use Types Packs/Day Years Used Date Smoking Tobacco: Never Assessed Comments Unknown Sex and Gender Information Value Date Recorded Sex Assigned at Not on file Legal Sex Female 4:17 AM CIRCUIT DESIGNER Gender Identity Not on file Sexual Orientation Not on file documented as of this encounter Plan of Treatment Not on file documented as of this encounter Visit Diagnoses Diagnosis Unspecified adjustment reaction- Primary Depressive disorder, not elsewhere classified documented in this encounter
--- OUTSIDE RECORDS SUMMARY | 2024-10-01 07:01 | XMS_ITS | Encounter Summary ---
Author Organization [facility] Address [address] [place] [address] Care Team Providers Care Cutter Hand Name Role Phone Unavailable Primary Care Provider Unavailabl e Encounter Details Date Type Department Care Team (Late st Contact Info) Description 04/27/2015 Lab Requisition [facility] Laboratory Services [address] [place] [address] [place] [address] Magdi Crawford MD [address] [place] [address] Social History Tobacco Use Types Packs/Day Years Used Date Smoking Tobacco: Never Assessed Comments Unknown Sex and Gender Information Value Date Recorded Sex Assigned at Not on file Legal Sex Female 4:17 AM SQL ARCHITECT Gender Identity Not on file Sexual Orientation Not on file documented as of this encounter Plan of Treatment Not on file documented as of this encounter Procedures Procedure Name Priority Date/Time Associated Diagnosis Comments VANCOMYCIN LEVEL TROUGH Routine 04/27/2015 2:15 PM SQL ARCHITECT documented in this encounter Results * (ABNORMAL) VANCOMYCIN LEVEL TROUGH (04/27/2015 2:15 PM SQL ARCHITECT) VANCOMYCIN, TROUGH 7.6(L) 10.0 - 20.0 ug/mL 04/27/2015 3:43 PM SQL ARCHITECT [facility] Blood Venipuncture - L ab Collect / Unknown 04/27/2015 2:15 PM SQL ARCHITECT 04/27/2015 3:10 PM SQL ARCHITECT us Magdi Crawford MD CHEMISTRY ORDERABLES Final Result [facility]# [id number] [address] [place] [address] documented in this encounter Visit Diagnoses Not on filedocumented in this encounter
--- OUTSIDE RECORDS SUMMARY | 2024-10-01 07:01 | XMS_ITS | Encounter Summary ---
Author Organization [email or web address] [facility] Address [address] [place] [address] Care Team Providers Care Bricklayer Supervisor Name Role Phone Unavailable Primary Care Provider Unavailabl e Encounter Details Date Type Department Care Team (Latest Contact Info) Description 02/22/2000 Outpatient Historical [facility] Gurwinder Felipe Jr., MD [address] [place] [phone] Need vaccination-viral disease (Primary Dx) Social History Tobacco Use Types Packs/Day Years Used Date Smoking Tobacco: Never Assessed Comments Unknown Sex and Gender Information Value Date Recorded Sex Assigned at Not on file Legal Sex Female 4:17 AM PIECER UP Gender Identity Not on file Sexual Orientation Not on file documented as of this encounter Plan of Treatment Not on file documented as of this encounter Visit Diagnoses Diagnosis Need vaccination-viral disease- Primary Need for prophylactic vaccination and inoculation against other viral diseases documented in this encounter
--- OUTSIDE RECORDS SUMMARY | 2024-10-01 07:01 | XMS_ITS | Encounter Summary ---
Author Organization [employer] [facility] Address [address] [place] [address] Care Team Providers Care Circus Train Supervisor Name Role Phone Unavailable Primary Care Provider Unavailabl e Encounter Details Date Type Department Care Team (Latest Contact Info) Description 01/04/2001 Outpatient Historical [facility] Gurwinder Felipe Jr., MD [address] [place] [phone] Unspecified essential hypertension (Primary Dx); Volume depletion Social History Tobacco Use Types Packs/Day Years Used Date Smoking Tobacco: Never Assessed Comments Unknown Sex and Gender Information Value Date Recorded Sex Assigned at Not on file Legal Sex Female 4:17 AM SEAFOOD PACKER Gender Identity Not on file Sexual Orientation Not on file documented as of this encounter Plan of Treatment Not on file documented as of this encounter Visit Diagnoses Diagnosis Unspecified essential hypertension- Primary Volume depletion documented in this encounter
--- OUTSIDE RECORDS SUMMARY | 2024-10-01 07:01 | XMS_ITS | Encounter Summary ---
Author Organization [employer] [facility] Address [address] [place] [address] Care Team Providers Care Utility Operator Name Role Phone Unavailable Primary Care Provider Unavailabl e Encounter Details Date Type Department Care Team (Latest Contact Info) Description 03/03/1999 Outpatient Historical [facility] Gurwinder Felipe Jr., MD [address] [place] [phone] Acute upper respiratory infections of unspecified site (Primary Dx); Unspecified asthma(493.90) Social History Tobacco Use Types Packs/Day Years Used Date Smoking Tobacco: Never Assessed Comments Unknown Sex and Gender Information Value Date Recorded Sex Assigned at Not on file Legal Sex Female 4:17 AM PERINATAL INSTRUCTOR Gender Identity Not on file Sexual Orientation Not on file documented as of this encounter Plan of Treatment Not on file documented as of this encounter Visit Diagnoses Diagnosis Acute upper respiratory infections of unspecified site- Primary Unspecified asthma(493.90) Unspecified asthma documented in this encounter
--- OUTSIDE RECORDS SUMMARY | 2024-10-01 07:01 | XMS_ITS | Encounter Summary ---
Author Organization [facility] Address [address] [place] [address] Care Team Providers Care Sorting Grapple Operator Name Role Phone Unavailable Primary Care Provider Unavailabl e Encounter Details Date Type Department Care Team (Late st Contact Info) Description 05/10/2015 Lab Requisition [facility] Laboratory Services [facility] [address] [place] [address] Magdi Crawford MD [address] [place] [address] Social History Tobacco Use Types Packs/Day Years Used Date Smoking Tobacco: Never Assessed Comments Unknown Sex and Gender Information Value Date Recorded Sex Assigned at Not on file Legal Sex Female 4:17 AM PUMPER HAND Gender Identity Not on file Sexual [...] CBC WITH DIFFERENTIAL Routine 05/10/2015 4:35 AM PUMPER HAND documented in this encounter Results * (ABNORMAL) CBC WITH DIFFERENTIAL (05/10/2015 4:35 AM PUMPER HAND) Pathologist [facility] WBC 10.9(H) 4.8 - 10.8 K/uL 05/10/2015 6:33 AM PUMPER HAND [facility] RBC 2.80(L) 4.20 - 5.40 M/uL 05/10/2015 6:33 AM [facility] HEMOGLOBIN 7.7(L) 12.0 - 16.0 g/dL 05/10/2015 6:33 AM [facility] HEMATOCRIT 28.6(L) 36.0 - 46.0 % 05/10/2015 6:33 AM [facility] MCV 102.1 84.0 - 103.0 fL 05/10/2015 6:33 AM [facility] MCH 27.5 27.0 - 34.0 pg 05/10/2015 6:33 AM [facility] MCHC 26.9(L) 30.0 - 35.0 g/dL 05/10/2015 6:33 AM [facility] RDW 18.6(H) 11.0 - 14.5 % 05/10/2015 6:33 AM [facility] RDW-STDEV 68.5(H) 37.0 - 54.0 fL 05/10/2015 6:33 AM [facility] PLATELETS 460(H) 140 - 440 K/uL 05/10/2015 6:33 AM [facility] MPV 11.3 8.9 - 12.8 fL 05/10/2015 6:33 AM [facility] NEUTROPHILS 61 42 - 75 % 05/10/2015 6:33 AM [facility] LYMPHOCYTES 26 24 - 44 % 05/10/2015 6:33 AM [facility] MONOCYTES 6 2 - 10 % 05/10/2015 6:33 AM [facility] EOSINOPHILS 4 0 - 7 % 05/10/2015 6:33 AM [facility] BASOPHILS 0 0 - 1 % 05/10/2015 6:33 AM [facility] NEUTROPHIL ABSOLUTE 6.62 2.00 - 8.00 K/uL 05/10/2015 6:33 AM [facility] LYMPHOCYTE ABSOLUTE 2.79 1.20 - 4.00 K/uL 05/10/2015 6:33 AM [facility] MONOCYTE ABSOLUTE 0.69(H) 0.10 - 0.60 K/uL 05/10/2015 6:33 AM [facility] EOSINOPHIL ABSOLUTE 0.38 0.00 - 0.70 K/uL 05/10/2015 6:33 AM [facility] BASOPHILS ABSOLUTE 0.02 0.00 - 0.20 K/uL 05/10/2015 6:33 AM [facility] IMMATURE GRANULOCYTES 4(H) 0 - 2 % 05/10/2015 6:33 AM [facility] IMMATURE GRANULOCYTES ABSOLUTE 0.42(H) 0.00 - 0.10 K/uL 05/10/2015 6:33 AM [facility] Blood Collection / Unknown 05/10/2015 4:35 AM PUMPER HAND 05/10/2015 5:50 AM [facility] - 05/10/2015 6:33 AM PUMPER HAND Smear reviewed. No WBC or PLT morphology abnormality noted. RBC Morphology Abnormal: 1+ Polychromasia us Magdi Crawford MD HEMATOLOGY ORDERABLES Final Result [facility] CLIA# [id number] [address] [place] [address] documented in this encounter Visit Diagnoses Not on filedocumented in this encounter
--- OUTSIDE RECORDS SUMMARY | 2024-10-01 07:01 | XMS_ITS | Encounter Summary ---
Author Organization [employer] [facility] Address [address] [place] [address] Care Team Providers Care Boom Cat Operator Name Role Phone Unavailable Primary Care Provider Unavailabl e Encounter Details Date Type Department Care Team (Latest Contact Info) Description 07/27/1999 Outpatient Historical [facility] Gurwinder Felipe Jr., MD [facility] [place] [phone] Unspecified essential hypertension (Primary Dx); Allergic rhinitis, cause unspecified Social History Tobacco Use Types Packs/Day Years Used Date Smoking Tobacco: Never Assessed Comments Unknown Sex and Gender Information Value Date Recorded Sex Assigned at Not on file Legal Sex Female 4:17 AM BOBBIN HANDLER Gender Identity Not on file Sexual Orientation Not on file documented as of this encounter Plan of Treatment Not on file documented as of this encounter Visit Diagnoses Diagnosis Unspecified essential hypertension- Primary Allergic rhinitis, cause unspecified documented in this encounter
--- OUTSIDE RECORDS SUMMARY | 2024-10-01 07:01 | XMS_ITS | Encounter Summary ---
Author Organization [employer] [facility] Address [address] [place] [address] Care Team Providers Care Reading Teacher Name Role Phone Unavailable Primary Care Provider Unavailabl e Encounter Details Date Type Department Care Team (Late st Contact Info) Description 05/06/2015 Lab Requisition [facility] Laboratory Services [address] [place] [address] Magdi Crawford MD [address] [place] [address] Social History Tobacco Use Types Packs/Day Years Used Date Smoking Tobacco: Never Assessed Comments Unknown Sex and Gender Information Value Date Recorded Sex Assigned at Not on file Legal Sex Female 4:17 AM ARTIST'S MODEL Gender Identity Not on file Sexual Orientation Not on file documented as of this encounter Plan of Treatment Not on file documented as of this encounter Procedures Procedure Name Priority Date/Time Associated Diagnosis Comments CBC WITH DIFFERENTIAL Routine 05/06/2015 3:10 AM ARTIST'S MODEL PHOSPHORUS Routine 05/06/2015 3:10 AM ARTIST'S MODEL MAGNESIUM LEVEL Routine 05/06/2015 3:10 AM ARTIST'S MODEL COMPREHENSIVE METABOLIC PANEL Routine 05/06/2015 3:10 AM ARTIST'S MODEL documented in this encounter Results * PHOSPHORUS (05/06/2015 3:10 AM ARTIST'S MODEL) PHOSPHORUS 3.3 2.5 - 4.9 mg/dL 05/06/2015 6:13 AM ARTIST'S MODEL [facility] [employer] [facility] Blood Collection / Unknown 05/06/2015 3:10 AM ARTIST'S MODEL 05/06/2015 5:15 AM ARTIST'S MODEL us Magdi Crawford MD CHEMISTRY ORDERABLES Final Result Performing Organization Address [facility] Co de Phone Number [facility] CLIA# [id number] [address] [place] [address] * MAGNESIUM LEVEL (05/06/2015 3:10 AM ARTIST'S MODEL) Pathologist [facility] MAGNESIUM 1.9 1.8 - 2.4 mg/dL 05/06/2015 6:13 AM [facility] Blood Collection / Unknown 05/06/2015 3:10 AM ARTIST'S MODEL 05/06/2015 5:15 AM ARTIST'S MODEL us Magdi Crawford MD CHEMISTRY ORDERABLES Final Result Performing Organization Address [facility] Co de Phone Number [facility] CLIA# [id number] [address] [place] [address] * (ABNORMAL) CBC WITH DIFFERENTIAL (05/06/2015 3:10 AM ARTIST'S MODEL) [facility] WBC 9.2 4.8 - 10.8 K/uL 05/06/2015 5:55 AM [facility] RBC 3.06(L) 4.20 - 5.40 M/uL 05/06/2015 5:55 AM [facility] HEMOGLOBIN 8.3(L) 12.0 - 16.0 g/dL 05/06/2015 5:55 AM [facility] HEMATOCRIT 27.0(L) 36.0 - 46.0 % 05/06/2015 5:55 AM [facility] MCV 88.2 84.0 - 103.0 fL 05/06/2015 5:55 AM [facility] MCH 27.1 27.0 - 34.0 pg 05/06/2015 5:55 AM [facility] MCHC 30.7 30.0 - 35.0 g/dL 05/06/2015 5:55 AM [facility] RDW 16.4(H) 11.0 - 14.5 % 05/06/2015 5:55 AM [facility] RDW-STDEV 52.1 37.0 - 54.0 fL 05/06/2015 5:55 AM [facility] PLATELETS 435 140 - 440 K/uL 05/06/2015 5:55 AM [facility] MPV 10.7 8.9 - 12.8 fL 05/06/2015 5:55 AM [facility] NEUTROPHILS 69 42 - 75 % 05/06/2015 5:55 AM [facility] LYMPHOCYTES 16(L) 24 - 44 % 05/06/2015 5:55 AM [facility] [employer] [facility] MONOCYTES 8 2 - 10 % 05/06/2015 5:55 AM [facility] [employer] [facility] EOSINOPHILS 5 0 - 7 % 05/06/2015 5:55 AM [facility] BASOPHILS 0 0 - 1 % 05/06/2015 5:55 AM [facility] NEUTROPHIL ABSOLUTE 6.34 2.00 - 8.00 K/uL 05/06/2015 5:55 AM [facility] LYMPHOCYTE ABSOLUTE 1.48 1.20 - 4.00 K/uL 05/06/2015 5:55 AM [facility] MONOCYTE ABSOLUTE 0.76(H) 0.10 - 0.60 K/uL 05/06/2015 5:55 AM [facility] [employer] [facility] EOSINOPHIL ABSOLUTE 0.49 0.00 - 0.70 K/uL 05/06/2015 5:55 AM [facility] BASOPHILS ABSOLUTE 0.03 0.00 - 0.20 K/uL 05/06/2015 5:55 AM [facility] IMMATURE GRANULOCYTES 1 0 - 2 % 05/06/2015 5:55 AM [facility] IMMATURE GRANULOCYTES ABSOLUTE 0.12(H) 0.00 - 0.10 K/uL 05/06/2015 5:55 AM [facility] [employer] [facility] Blood Collection / Unknown 05/06/2015 3:10 AM ARTIST'S MODEL 05/06/2015 5:15 AM ARTIST'S MODEL us Magdi Crawford MD HEMATOLOGY ORDERABLES Final Result [facility] CLIA# [id number] [facility] [place] [address] * (ABNORMAL) COMPREHENSIVE METABOLIC PANEL (05/06/2015 3:10 AM ARTIST'S MODEL) [facility] SODIUM 140 136 - 145 mmol/L 05/06/2015 6:13 AM [facility] POTASSIUM 3.8 3.5 - 5.1 mmol/L 05/06/2015 6:13 AM [facility] CHLORIDE 103 98 - 107 mmol/L 05/06/2015 6:13 AM [facility] CO2 30 21 - 32 mmol/L 05/06/2015 6:13 AM [facility] CALCIUM 7.9(L) 8.4 - 10.1 mg/dL 05/06/2015 6:13 AM [facility] BUN 20(H) 7 - 17 mg/dL 05/06/2015 6:13 AM [facility] CREATININE 0.51(L) 0.55 - 1.02 mg/dL 05/06/2015 6:13 AM [facility] GLUCOSE 144(H) 74 - 106 mg/dL 05/06/2015 6:13 AM [facility] TOTAL PROTEIN 6.0(L) 6.4 - 8.2 g/dL 05/06/2015 6:13 AM [facility] ALBUMIN 1.8(L) 3.4 - 5.0 g/dL 05/06/2015 6:13 AM [facility] BILIRUBIN TOTAL 0.2 0.2 - 1.0 mg/dL 05/06/2015 6:13 AM [facility] ALKALINE PHOSPHATASE 127(H) 25 - 100 U/L 05/06/2015 6:13 AM [facility] AST 43(H) 15 - 37 U/L 05/06/2015 6:13 AM [facility] ALT 37 13 - 61 U/L 05/06/2015 6:13 AM [facility] GFR >60 >=60 mL/min/1. 73 sq meter 05/06/2015 6:13 AM [facility] Comment: eGFR has not been [...] mL/min/1. 73 sq meter 05/06/2015 6:13 AM [facility] ANION GAP 7(L) 8 - 16 mmol/L 05/06/2015 6:13 AM [facility] Blood Collection / Unknown 05/06/2015 3:10 AM ARTIST'S MODEL 05/06/2015 5:15 AM ARTIST'S MODEL us Magdi Crawford MD CHEMISTRY ORDERABLES Final Result [facility] CLIA# [id number] [address] [place] [address] documented in this encounter Visit Diagnoses Not on filedocumented in this encounter
--- OUTSIDE RECORDS SUMMARY | 2024-10-01 07:01 | XMS_ITS | Encounter Summary ---
Author Organization [employer] [facility] Address [address] [place] [address] Care Team Providers Care Slotter Operator Helper Name Role Phone Unavailable Primary Care Provider Unavailabl e Encounter Details Date Type Department Care Team (Late st Contact Info) Description 05/10/2015 Lab Requisition [facility] Laboratory Services [address] [place] [address] Magdi Crawford MD [address] [place] [address] Social History Tobacco Use Types Packs/Day Years Used Date Smoking Tobacco: Never Assessed Comments Unknown Sex and Gender Information Value Date Recorded Sex Assigned at Not on file Legal Sex Female 4:17 AM FREIGHT RATE SPECIALIST Gender Identity Not on file Sexual Orientation Not on file documented as of this encounter Plan of Treatment Not on file documented as of this encounter Procedures Procedure Name Priority Date/Time Associated Diagnosis Comments TRIGLYCERIDE Routine 05/10/2015 7:00 AM FREIGHT RATE SPECIALIST MAGNESIUM LEVEL Routine 05/10/2015 7:00 AM FREIGHT RATE SPECIALIST COMPREHENSIVE METABOLIC PANEL Routine 05/10/2015 7:00 AM FREIGHT RATE SPECIALIST documented in this encounter Results * (ABNORMAL) TRIGLYCERIDE (05/10/2015 7:00 AM FREIGHT RATE SPECIALIST) TRIGLYCERIDE 177(H) <150 mg/dL 05/10/2015 8:16 AM FREIGHT RATE SPECIALIST [facility] Blood Collection / Unknown 05/10/2015 7:00 AM FREIGHT RATE SPECIALIST 05/10/2015 7:42 AM FREIGHT RATE SPECIALIST Narrative [facility] [employer] [facility] - 05/10/2015 8:16 AM FREIGHT RATE SPECIALIST TRIGLYCERIDES mg/dL Normal < 150 Borderline High 150 - 199 High 200 - 499 Very High >= 500 Based on AHA/NCEP Guidelines. Magdi Crawford MD CHEMISTRY ORDERABLES Final Result Performing Organization Address [facility] Co de Phone Number [facility] CLIA# [id number] [address] [place] [address] * MAGNESIUM LEVEL (05/10/2015 7:00 AM FREIGHT RATE SPECIALIST) MAGNESIUM 1.8 1.8 - 2.4 mg/dL 05/10/2015 8:16 AM [facility] Blood Collection / Unknown 05/10/2015 7:00 AM FREIGHT RATE SPECIALIST 05/10/2015 7:42 AM FREIGHT RATE SPECIALIST Magdi Crawford MD CHEMISTRY ORDERABLES Final Result Performing Organization Address [facility] de Phone Number [facility] CLIA# [id number] [address] [place] [address] * (ABNORMAL) COMPREHENSIVE METABOLIC PANEL (05/10/2015 7:00 AM FREIGHT RATE SPECIALIST) SODIUM 138 136 - 145 mmol/L 05/10/2015 8:16 AM [facility] [employer] [facility] POTASSIUM 4.2 3.5 - 5.1 mmol/L 05/10/2015 8:16 AM [facility] [employer] [facility] CHLORIDE 105 98 - 107 mmol/L 05/10/2015 8:16 AM [facility] [employer] [facility] CO2 27 21 - 32 mmol/L 05/10/2015 8:16 AM [facility] CALCIUM 7.7(L) 8.4 - 10.1 mg/dL 05/10/2015 8:16 AM [facility] BUN 17 7 - 17 mg/dL 05/10/2015 8:16 AM [facility] CREATININE 0.46(L) 0.55 - 1.02 mg/dL 05/10/2015 8:16 AM [facility] GLUCOSE 148(H) 74 - 106 mg/dL 05/10/2015 8:16 AM [facility] TOTAL PROTEIN 6.0(L) 6.4 - 8.2 g/dL 05/10/2015 8:16 AM [facility] ALBUMIN 1.9(L) 3.4 - 5.0 g/dL 05/10/2015 8:16 AM [facility] BILIRUBIN TOTAL 0.3 0.2 - 1.0 mg/dL 05/10/2015 8:16 AM [facility] ALKALINE PHOSPHATASE 153(H) 25 - 100 U/L 05/10/2015 8:16 AM [facility] AST 21 15 - 37 U/L 05/10/2015 8:16 AM [facility] [employer] [facility] ALT 26 13 - 61 U/L 05/10/2015 8:16 AM [facility] GFR >60 >=60 mL/min/1. 73 sq meter 05/10/2015 8:16 AM [facility] [employer] [facility] Comment: eGFR has not [...] mL/min/1. 73 sq meter 05/10/2015 8:16 AM [facility] [employer] [facility] ANION GAP 6(L) 8 - 16 mmol/L 05/10/2015 8:16 AM [facility] [employer] [facility] Blood Collection / Unknown 05/10/2015 7:00 AM FREIGHT RATE SPECIALIST 05/10/2015 7:42 AM FREIGHT RATE SPECIALIST us Magdi Crawford MD CHEMISTRY ORDERABLES Final Result [facility] CLIA# [id number] [address] [place], [place] [address] documented in this encounter Visit Diagnoses Not on filedocumented in this encounter
--- OUTSIDE RECORDS SUMMARY | 2024-10-01 07:01 | XMS_ITS | Encounter Summary ---
Author Organization [employer] [facility] Address [address] [place] [address] Care Team Providers Care Safe And Vault Mechanic Name Role Phone Unavailable Primary Care Provider Unavailabl e Encounter Details Date Type Department Care Team (Latest Contact Info) Description 10/25/1999 Outpatient Historical [employer] Gurwinder Felipe Jr., MD [address] [place] [phone] Unspecified essential hypertension (Primary Dx) Social History Tobacco Use Types Packs/Day Years Used Date Smoking Tobacco: Never Assessed Comments Unknown Sex and Gender Information Value Date Recorded Sex Assigned at Not on file Legal Sex Female 4:17 AM RAIL EXPRESS CLERK Gender Identity Not on file Sexual Orientation Not on file documented as of this encounter Plan of Treatment Not on file documented as of this encounter Visit Diagnoses Diagnosis Unspecified essential hypertension- Primary documented in this encounter
--- OUTSIDE RECORDS SUMMARY | 2024-10-01 07:01 | XMS_ITS | Patient Health Record ---
Author Organization [facility] Address [address] [place] [address] Care Team Providers Care Brine Tank Operator Name Role Phone Tito Cartagena Primary Care Provider [phone] Migration, Provider Unavailable Unavailable Allergies Allergen (clinical drug ingredient) Drug/Non Drug Allergy documented on EMR Reaction Allergy Type Onset Date Status Substance with sulfonamide structure and antibacterial mechanism of action (substance) Sulfa Antibiotics Unknown Drug Allergy 05/27/2003 Active Reason For Referral Reason Eval and Treat Diagnosis 1 Chronic pain (G89.29 ) Diagnosis 2 correction (current) use of opiate analgesic (Z79.891) Referring Provider First Name Lynda Referring Provider Last Name Abigail Referring Provider Speciality Family Med icine Referred Organization [facility] Referred Provider Ruchi Wagner Referred Address [address] [place] [address],[place],[phone], Referred Provider Specialty Pain Medicin e Referral Priority Routine Medications Medication SIG (Take, Route, Frequency, Duration) [...] day for 10 days 02/01/2023 Unknown Zenpep [id number] UNIT as directed Orally for 30 days [...] 225-200 MG/5ML as directed Orally Unknown Nasal [place] 0.05 % 2 sprays in each nostril [...] > Unknown 12/28/2011 Administered Influenza (whole), CPT 23151 Inactive Unknown 01/07/2018 Administered Pneumococcal polysaccharide PPV23 [...] Risk Notes Problem Lumbosacral spondylosis without myelopathy (40691564) Other spondylosis with radiculopathy, lumbar region (M47.26) Active confirmed Problem Female urinary stres s incontinence (15237095) Stress incontinence in female (N39.3) Active confirmed Problem 50788826 Situational anxi ety (F41.8) Active confirmed Problem 69925299 Nummular eczema (L30.0) Active confirmed Problem Chronic pain (58000819) Chronic pain (G89.29) Active confirmed Problem 831944147 Leg numbness (R20.0) Active confirmed Problem Hypertension (79527692) Hypertension (I10) Active confirmed Problem 071163783 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) Active confirmed Problem 7649196295 Cat allergy, airborne (J30.81) Active confirmed Problem Generalized anxiety disorder (76773675) Generalized anxiety disorder (300.02) 2005 Active confirmed [id number]-98 [id number]- Problem Lumbosacral spondylosis without myelopathy (66824182) 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 Active confirmed Jignesh-[id number] [id number]- Problem 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 Active confirmed [facility]-98 5911- Problem Generalized osteoarthritis (118467808) Generalized osteoarthritis, 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) 2009 Active confirmed [facility]98 [id number]- Problem Mitral valve regurgitation (40285671) Mitral valve regurgitation (424.0) 2016 Active confirmed [facility]-98 5911- Problem Postmenopausal osteoporosis (381047718) Postmenopausal osteoporosis (733.01) 2012 Active confirmed [facility]98 5911- Problem Congenital anoma ly of foot, 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 Active confirmed [facility]-98 5911- Problem 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 Active confirmed [facility]esh-98 [id number]- Problem Obsessive-compulsive disorder (048091495) OCD (300.3) 2011 Active confirmed [facility]98 [id number]- Problem Adjustment disorder with depressed mood (42435993) Adjustment disorder with depressed mood (309.0) 2004 Problem resolved confirmed [facility]98 [id number]- Problem Hypocalcemia (7489540) Hypocalcemia (275.41) 2018 Problem resolved confirmed [facility]98 [id number]- Problem Dehydration (44549966) Dehydration (276.51) 2017 Problem resolved confirmed [facility]98 [id number]- Problem Anemia (084132943) Unspecified a nemia (285.9) 2018 Problem resolved confirmed [facility]-98 [id number]- Problem Agoraphobia without history of panic disorder (54275973) Agoraphobia without mention of panic attacks (300.22) 2004 Problem resolved confirmed [facility]98 [id number]- Problem Toxic encephalopathy (67441515) Toxic encephalopathy (349.82) 2018 Problem resolved confirmed [facility]-98 [id number]- Problem Acute sinusitis (30044884) Acute sinusitis, unspecified (461.9) 2003 Problem resolved confirmed [facility]-98 [id number]- Problem Senile osteoporosis (18739226) Senile osteoporosis (733.01) 2009 Problem resolved confirmed [facility]-98 5911- Problem Weight decreased (226764066) Loss of weight (783.21) 2018 Problem resolved confirmed [facility]98 5911- Problem Shortness of breath (841615526) Shortness of breath (786.05) 2007 Problem resolved confirmed [facility]98 [id number]- Problem Cough (17913710) Cough (786.2) 2010 Problem resolved confirmed [facility]98 5911- Problem Heartburn (31601704) Heartburn (787.1) 2009 Problem resolved confirmed [facility]-98 5911- Problem Diarrhea (97032699) Diarrhea (787.91) 2010 Problem resolved confirmed [facility]98 5911- Problem Dysuria (41592468) Dysuria (788.1) 2003 Problem resolved confirmed [facility]98 5911- Problem Restless legs (42893971) Restless legs syndrome (RLS) (333.94) 2006 Problem resolved confirmed [facility]98 5911- Problem Hiatal hernia (90937969) Hiatal hernia (553.3) 2014 Problem resolved confirmed [facility]98 5911- Problem Rash (042741312) Rash (782.1) 2009 Problem resolved confirmed [facility]98 5911- Problem Hypokalemia (31901863) Hypokalemia (276.8) 2018 Problem resolved confirmed [facility]98 5911- Problem Dizziness (014658314) Dizziness (780.4) 0 2004 Problem resolved confirmed [facility]98 5911- Problem Low back pain (441922930) Low back pain (724.2) 2004 Problem resolved confirmed [facility]98 5911- Problem Fatigue (87436337) Fatigue (780.79) 05/03 Problem resolved confirmed [facility]98 5911- Problem Iron deficiency anemia (97790737) Iron deficiency anemia, unspecified (280.9) 2015 Problem resolved confirmed [facility]98 5911- Problem Vaginal irritation (604335653) Vaginal irritation (623.9) 2018 Problem resolved confirmed [facility]98 5911- Problem Hypercholesterolemia (88638057) Hypercholesterolemia (272.0) 2009 Problem resolved confirmed [facility]98 5911- Problem Hypotension (42490820) Hypotension, other (458.8) 2018 Problem resolved confirmed [facility]98 5911- Problem Mild recurrent major depression (77726817) Major depression, recurrent episode, mild (296.31) 2016 Problem resolved confirmed [facility]98 5911- Problem Moderate recurrent major depression (38000928) Major depression, recurrent episode, moderate (296.32) 2009 Problem resolved confirmed [facility]98 5911- Problem Nonspecific gastrointestinal (GI) tract abnormality by CT (793.4) 2014 Problem resolved confirmed [facility]-98 5911- Problem Seasonal allergy (253435579) Seasonal allergies (477.0) 2017 Problem resolved confirmed [facility]-98 5911- Problem Shoulder pain (45591251) Shoulder pain (719.41) 2014 Problem resolved confirmed [facility]-98 5911- Problem Screening for breast cancer (656781826) Screening for breast cancer (V76.10) 2012 Problem resolved confirmed [facility]-98 5911- Problem Allergic rhinitis du e to allergen (01601520) Allergic rhinitis, other allergen-induced (477.8) 2011 Problem resolved confirmed [facility]98 5911- Problem Allergic rhinitis du e to allergen (76771980) Allergic rhinitis, other allergen-induced, NEC (477.8) 2012 Problem resolved confirmed [facility]98 5911- Problem Allergic rhinitis caused by pollen (51160521) Allergies (477.0) 2010 Problem resolved confirmed [facility]-98 5911- Problem Breast mass (82404012) Breast mass (611.72) 2004 Problem resolved confirmed [facility]-98 5911- Problem Chest pain (11100227) Chest pain (786.50) 2004 Problem resolved confirmed [facility]98 5911- Problem Disorder of hematopoietic system (02883065) Other abnormal findings on blood examination (790.99) 2016 Problem resolved confirmed [facility]98 5911- Problem Right lower quadrant pain (431591773) RLQ abdominal pain (789.03) 2014 Problem resolved confirmed [facility]98 5911- Problem Sore throat (256525331) Sore Throat (462) 2014 Problem resolved confirmed [facility]-98 5911- Problem Acute renal failure (24504711) Acute renal failure, NEC (584.8) 2016 Problem resolved confirmed [facility]-98 5911- Problem 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) Atypical mole (238.2) 2010 Problem resolved confirmed [facility]98 5911- Problem Bilateral pneumonia (394357793) Bilateral pneumonia (486) 2017 Problem resolved confirmed [facility]-98 5911- Problem Depressive disorder (24205973) Depressive disorder not elsewhere classified (311) 2009 Problem resolved confirmed [facility]-98 5911- Problem Hematochezia (363652914) Hematochezia (578.1) 2018 Problem resolved confirmed [facility]-98 5911- Problem Lab: Used to mat ch unlinked laboratory orders (V92) 2014 Problem resolved confirmed [facility]ign[facility]-98 5911- Problem Lymphadenopathy (15899923) Lymphadenopathy (785.6) 2008 Problem resolved confirmed [facility]-98 5911- Problem Flank pain (505765400) Flank pain (724.8) 2018 Problem resolved confirmed [facility]98 5911- Problem Midline cystocele (727219662) Cystocele, midline (618.01) 2014 Problem resolved confirmed [facility]98 5911- Problem Dumping syndrome (99054965) Dumping syndrome (564.2) 2015 Problem resolved confirmed [facility]98 5911- Problem Ear ache (51595808) Ear ache (388.71) 2008 Problem resolved confirmed [facility]98 5911- Problem Gastric ulcer (435081525) Gastric ulcer (531.30) 2010 Problem resolved confirmed [facility]98 5911- Problem Insomnia (897612259) Insomnia (307.41) 2009 Problem resolved confirmed [facility]98 5911- Problem Pain in limb (52766950) Leg pain (729.5) 2006 Problem resolved confirmed [facility]98 5911- Problem Precordial pain (45253740) Precordial chest pain (786.51) 2014 Problem resolved confirmed [facility]98 5911- Problem Abdominal pain (29204205) Abdominal pain (789.09) 2009 Problem resolved confirmed [facility]98 5911- Problem Cardiac arrhythmia (905320807) Bigeminy (427.89) 2016 Problem resolved confirmed [facility]98 5911- Problem Persistent hypersomnia (228784696) Chronic hypersomnia (307.44) 2009 Problem resolved confirmed [facility]-98 5911- Problem Needs influenza immunization (414441902) Vaccination against other viral diseases, Influenza (V04.81) 2011 Problem resolved confirmed [facility]98 5911- Problem Acute upper respiratory infection (94295515) Acute upper respiratory infection (465.8) 2005 Problem resolved confirmed [facility]98 5911- Problem Anxiety depression (792856698) Anxiety with depression (300.4) 2005 Problem resolved confirmed [facility]98 5911- Problem Osteoarthritis of shoulder (60782722) 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) 2014 Problem resolved confirmed [facility]98 5911- Problem Persistent insomnia (632751671) Persistent insomnia (307.42) 2003 Problem resolved confirmed [facility]98 5911- Problem Pleural effusion (07830840) Pleural effusion (511.9) 2018 Problem resolved confirmed [facility]98 5911- Problem Malignant essential hypertension (83666296) Severe elevation in blood pressure (401.0) 2004 Problem resolved confirmed [facility]-98 5911- Problem Basal cell carcinoma of eyelid (627676046) Basal cell carcinoma of eyelid (173.1) 2009 Problem resolved confirmed [facility]-98 5911- Problem Cellulitis (969645350) Cellulitis or abscess of other site (682.8) 2015 Problem resolved confirmed [facility]98 5911- Problem Chronic low back taya n (635578422) Chronic low back pain (724.2) 2004 Problem resolved confirmed [facility]98 5911- Problem Constipation (18536543) Constipation (564.01) 2006 Problem resolved confirmed [facility]98 5911- Problem Depression (164977517) Depression (296.20) 2004 Problem resolved confirmed [facility]-98 5911- Problem Itching (164086906) Itching (698.9) 12/24 Problem resolved confirmed [facility]98 5911- Problem Urinary tract infection (30551995) Urinary tract infection (595.0) 2016 Problem resolved confirmed [facility]98 5911- Problem Acquired hypothyroidism (470379484) Acquired hypothyroidism (244.8) 2009 Problem resolved confirmed [facility]98 5911- Problem Acute sinusitis (24143946) Acute sinusitis (461.8) 2008 Problem resolved confirmed [facility]-98 5911- Problem Asthma without statu s asthmaticus (38255221) Asthma, type unspecified (493.90) 2017 Problem resolved confirmed [facility]-98 5911- Problem Adjustment disorder with depressed mood (93458784) Bereavement adjustment reaction (309.0) 2012 Problem resolved confirmed [facility]ign[facility]-98 5911- Problem Left ventricular hypertrophy (99431494) LVH (429.3) 2018 Problem resolved confirmed [facility]-98 5911- Problem Chronic insomnia (739850857) Chronic insomnia (307.42) 2009 Problem resolved confirmed [facility]-98 5911- Problem Precordial pain (70900490) Substernal chest pain (786.51) 2004 Problem resolved confirmed [facility]-98 5911- Problem Administration of vaccine product containing only Streptococcus pneumoniae antigen (procedure) (92277221) Vaccination against pneumococcal pneumonia (V03.82) 2011 Problem resolved confirmed [facility]-98 5911- Problem Vaginal discharge (498593256) Vaginal discharge (616.10) 2018 Problem resolved confirmed [facility]ign[facility]-98 5911- Problem Easy bruising (874561472) Easy bruising (782.7) 2018 Problem resolved confirmed [facility]-98 5911- Problem Hip pain (75098589) Hip pain (719.45) 2017 Problem resolved confirmed [facility]-98 5911- Problem Osteoporosis (12824482) Osteoporosis (733.09) 2009 Problem resolved confirmed [facility]-98 5911- Problem Dry mouth (72410957) Dry mouth (527.7) 2005 Problem resolved confirmed [facility]-98 5911- Problem Essential hypertension (51860251) Essential hypertension (401.1) 2009 Problem resolved confirmed [facility]-98 5911- Problem Hypertension (76923806) HTN (401.1) 2004 Problem resolved confirmed [facility]-98 5911- Problem Colostomy present (358018508) Patient with colostomy (V44.3) 2015 Problem resolved confirmed [facility]-98 5911- Problem Pedal edema (098429212) Pedal edema (782.3) 2018 Problem resolved confirmed [facility]-98 5911- Problem Restless legs syndrome (59557289) Restless leg syndrome (333.99) 2007 Problem resolved confirmed [facility]-98 5911- Problem Neoplasm of uncertai n behavior of connective and other soft tissues (25706721) Unspecified skin lesion (239.2) 2016 Problem resolved confirmed [facility]-98 5911- Problem Abnormal urination (59001879913376) Urinary abnormality (788.69) 2018 Problem resolved confirmed [facility]ign[facility]-98 5911- Problem 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, 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 Problem resolved confirmed [facility]ignesh-98 5911- Problem Screening for malignant neoplasm of breast (951328849) Screening for breast cancer, unspecified (V76.10) 2014 Problem resolved confirmed Jignesh-98 5911- Problem Screening mammograph y (93212577) Screening mammogram - other (V76.12) 2016 Problem resolved confirmed [facility]ign[facility]-98 5911- Problem Vaginitis and vulvovaginitis (342296767) Vaginal Discharge Unspecified (616.10) 2014 Problem resolved confirmed Jignesh-98 5911- Encounters Encounter Location Date Provider Diagnosis Migrated_Facility 0 0 01/19/2024 Provider Migration Migrated_Facility 0 0 01/20/2024 Provider Migration Plan Of Treatment No Information Insurance Providers Payer Name Payer Address Payer Phone Subscriber Number Group Number Insured Name Patient Relationship to Insured Coverage Start Date Coverage End Date [facility] Medicare Advantage - PPO [address] [address] [place] [phone] [id number] Ivan Ferrari Self - patient is the insured [employer] - Out of Network [address] [address] [place] [address] [id number] Hillary felipe Olve Self - patient is the insured 3 [...] Fibromyalgia Greater trochanteric bursitis Hyperlipidemia Hypertension Ileostomy fpc use of opiate analgesic NSTEMI Heart attack Plelonephritis UTI recurrent Restless leg syndrome R knee DJD urgency incontinence Urinary incontinence Urinary retention Yeast vaginitis Surgical History Surgery Date(Month/Year) appendectomy hysterectomy bilateral tubal ligation (BTL) rectal cyst removal colostomy 03/2015, reversed 05/2018 R foot surgery 2022 H/O Ileostomy Reverse Ileostomy
--- OUTSIDE RECORDS SUMMARY | 2024-10-01 07:01 | XMS_ITS | Encounter Summary ---
Author Organization [facility] Address [address] [place] [address] Care Team Providers Care Reserve Officer Name Role Phone Unavailable Primary Care Provider Unavailabl e Encounter Details Date Type Department Care Team (Late st Contact Info) Description 05/01/2015 Lab Requisition [facility] Laboratory Services [address] [place] [address] Magdi Crawford MD [address] [place] [address] Social History Tobacco Use Types Packs/Day Years Used Date Smoking Tobacco: Never Assessed Comments Unknown Sex and Gender Information Value Date Recorded Sex Assigned at Not on file Legal Sex Female 4:17 AM HEALTH AND NUTRITION SPECIALIST Gender Identity Not on file Sexual Orientation Not on file documented as of this encounter Plan of Treatment Not on file documented as of this encounter Procedures Procedure Name Priority Date/Time Associated Diagnosis Comments URINALYSIS W/REFLEX MICROSCOPIC Routine 05/01/2015 1:40 PM HEALTH AND NUTRITION SPECIALIST URINE CULTURE Routine 05/01/2015 1:40 PM HEALTH AND NUTRITION SPECIALIST documented in this encounter Results * URINE CULTURE (05/01/2015 1:40 PM HEALTH AND NUTRITION SPECIALIST) CULTURE Polymicrobial growth consistent with normal urethral zaida and/or colonizing bacteria 05/02/2015 2:39 PM HEALTH AND NUTRITION SPECIALIST [facility] [employer] [facility] Urine URINE SPECIMEN OBTAINED BY CLEAN CATCH PROCEDURE / Unknown Collection / Unknown 05/01/2015 1:40 PM HEALTH AND NUTRITION SPECIALIST 05/01/2015 3:32 PM HEALTH AND NUTRITION SPECIALIST us Magdi Crawford MD MICROBIOLOGY - GENERAL ORDE RABLES Final Result Performing Organization Address City/[facility]/ZIP Co de Phone Number [facility] CLIA# [id number] [address] [place] [address] * URINALYSIS (05/01/2015 1:40 PM HEALTH AND NUTRITION SPECIALIST) COLOR UA Yellow Pale to dark yellow 05/01/2015 3:[address] [facility] CLARITY UA Clear Clear 05/01/2015 3:[address] [facility] SPECIFIC GRAVITY UA 1.006 1.003 - 1.035 05/01/2015 3:[address] [facility] PH UA 7.0 5.0 - 8.0 05/01/2015 3:[address] [facility] LEUKOCYTE ESTERASE UA Negative Negative 05/01/2015 3:[address] [facility] NITRITE UA Negative Negative 05/01/2015 3:[address] [facility] PROTEIN UA Negative Negative 05/01/2015 3:[address] [facility] GLUCOSE UA Negative Negative 05/01/2015 3:[address] [facility] KETONES UA Negative Negative 05/01/2015 3:[address] [facility] UROBILINOGEN UA <2.0 <2.0 mg/dL 05/01/2015 3:[address] [facility] BILIRUBIN UA Negative Negative 05/01/2015 3:[address] [facility] BLOOD UA Negative Negative 05/01/2015 3:[address] [facility] Urine, clean catch URINE SPECIMEN OBTAINED BY CLEAN CATCH PROCEDURE / Unknown Collection / Unknown 05/01/2015 1:40 PM HEALTH AND NUTRITION SPECIALIST 05/01/2015 3:32 PM HEALTH AND NUTRITION SPECIALIST us Magdi Crawford MD URINE ORDERABLES Final Resu lt [facility] CLIA# [id number] [facility] [facility] [place] [address] documented in this encounter Visit Diagnoses Not on filedocumented in this encounter
--- OUTSIDE RECORDS SUMMARY | 2024-10-01 07:01 | XMS_ITS | Encounter Summary ---
Author Organization [facility] Address [address] [place] [address] Care Team Providers Care Apprentice Plumber Name Role Phone Unavailable Primary Care Provider Unavailabl e Encounter Details Date Type Department Care Team (Late st Contact Info) Description 05/05/2015 Lab Requisition [facility] Laboratory Services [address] [place] [address] Magdi Crawford MD [address] [place] [address] Social History Tobacco Use Types Packs/Day Years Used Date Smoking Tobacco: Never Assessed Comments Unknown Sex and Gender Information Value Date Recorded Sex Assigned at Not on file Legal Sex Female 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
--- OUTSIDE RECORDS SUMMARY | 2024-10-01 07:01 | XMS_ITS | Encounter Summary ---
Author Organization [facility] Address [address] [place] [address] Care Team Providers Care Coal Or Ore Controller Name Role Phone Unavailable Primary Care Provider Unavailabl e Encounter Details Date Type Department Care Team (Late st Contact Info) Description 05/03/2015 Lab Requisition [facility] Laboratory Services [address] [place] [address] Magdi Crawford MD [address] [place] [address] Social History Tobacco Use Types Packs/Day Years Used Date Smoking Tobacco: Never Assessed Comments Unknown Sex and Gender Information Value Date Recorded Sex Assigned at Not on file Legal Sex Female 4:17 AM TELE TECH Gender Identity Not on file Sexual Orientation Not on file documented as of this encounter Plan of Treatment Not on file documented as of this encounter Procedures Procedure Name Priority Date/Time Associated Diagnosis Comments CBC WITH DIFFERENTIAL Routine 05/03/2015 3:50 AM TELE TECH VITAMIN D 25 HYDROXY Routine 05/03/2015 3:50 AM TELE TECH PHOSPHORUS Routine 05/03/2015 3:50 AM TELE TECH PTH INTACT Routine 05/03/2015 3:50 AM TELE TECH MAGNESIUM LEVEL Routine 05/03/2015 3:50 AM TELE TECH COMPREHENSIVE METABOLIC PANEL Routine 05/03/2015 3:50 AM TELE TECH documented in this encounter Results * (ABNORMAL) VITAMIN D 25 HYDROXY (05/03/2015 3:50 AM TELE TECH) VITAMIN D TOTAL (25OH) 14(L) 30 - 100 ng/ml 05/03/2015 6:41 AM TELE TECH [facility] Blood Collection / Unknown 05/03/2015 3:50 AM TELE TECH 05/03/2015 5:45 AM TELE TECH Narrative [facility] - 05/03/2015 6:41 AM TELE TECH Interpretive Data Chart: Deficient: 0 - 20 ng/ml Insufficient: 21 - 29 ng/ml Sufficient: 30 - 100 ng/ml Increased Risk of Hypercalciuria: >100 ng/ml Toxic: >150 ng/ml Magdi Crawford MD CHEMISTRY ORDERABLES Final Result Performing Organization Address [facility] Co de Phone Number [facility] CLIA# [id number] [address] [place] [address] * PTH INTACT (05/03/2015 3:50 AM TELE TECH) Pathologist [facility] [place] PTH INTACT 68.3 14.0 - 72.0 pg/mL 05/03/2015 6:32 AM [facility] Blood Collection / Unknown 05/03/2015 3:50 AM TELE TECH 05/03/2015 5:45 AM TELE TECH us Magdi Crawford MD CHEMISTRY ORDERABLES Final Result Performing Organization Address City/[facility] Co de Phone Number [facility] CLIA# [id number] [address] [place] [address] * PHOSPHORUS (05/03/2015 3:50 AM TELE TECH) Pathologist [facility] [place] PHOSPHORUS 2.5 2.5 - 4.9 mg/dL 05/03/2015 6:38 AM [facility] Blood Collection / Unknown 05/03/2015 3:50 AM TELE TECH 05/03/2015 5:45 AM TELE TECH us Magdi Crawford MD CHEMISTRY ORDERABLES Final Result Performing Organization Address [facility]/ZIP Co de Phone Number [facility] CLIA# [id number] [address] [place] [address] * MAGNESIUM LEVEL (05/03/2015 3:50 AM TELE TECH) Pathologist [facility] MAGNESIUM 1.8 1.8 - 2.4 mg/dL 05/03/2015 6:38 AM [facility] Blood Collection / Unknown 05/03/2015 3:50 AM TELE TECH 05/03/2015 5:45 AM TELE TECH Magdi Crawford MD CHEMISTRY ORDERABLES Final Result Performing Organization Address [facility] de Phone Number [facility] CLIA# [id number] [address] [place] [address] * (ABNORMAL) CBC WITH DIFFERENTIAL (05/03/2015 3:50 AM TELE TECH) [facility] WBC 10.1 4.8 - 10.8 K/uL 05/03/2015 6:00 AM [facility] RBC 2.71(L) 4.20 - 5.40 M/uL 05/03/2015 6:00 AM [facility] HEMOGLOBIN 7.5(L) 12.0 - 16.0 g/dL 05/03/2015 6:00 AM [facility] HEMATOCRIT 24.1(L) 36.0 - 46.0 % 05/03/2015 6:00 AM [facility] MCV 88.9 84.0 - 103.0 fL 05/03/2015 6:00 AM [facility] MCH 27.7 27.0 - 34.0 pg 05/03/2015 6:00 AM [facility] MCHC 31.1 30.0 - 35.0 g/dL 05/03/2015 6:00 AM [facility] RDW 16.4(H) 11.0 - 14.5 % 05/03/2015 6:00 AM [facility] RDW-STDEV 52.8 37.0 - 54.0 fL 05/03/2015 6:00 AM [facility] PLATELETS 409 140 - 440 K/uL 05/03/2015 6:00 AM [facility] MPV 9.9 8.9 - 12.8 fL 05/03/2015 6:00 AM [facility] NEUTROPHILS 73 42 - 75 % 05/03/2015 6:00 AM [facility] LYMPHOCYTES 13(L) 24 - 44 % 05/03/2015 6:00 AM [facility] MONOCYTES 10 2 - 10 % 05/03/2015 6:00 AM [facility] EOSINOPHILS 4 0 - 7 % 05/03/2015 6:00 AM [facility] BASOPHILS 0 0 - 1 % 05/03/2015 6:00 AM [facility] NEUTROPHIL ABSOLUTE 7.39 2.00 - 8.00 K/uL 05/03/2015 6:00 AM [facility] LYMPHOCYTE ABSOLUTE 1.28 1.20 - 4.00 K/uL 05/03/2015 6:00 AM [facility] MONOCYTE ABSOLUTE 1.01(H) 0.10 - 0.60 K/uL 05/03/2015 6:00 AM [facility] EOSINOPHIL ABSOLUTE 0.35 0.00 - 0.70 K/uL 05/03/2015 6:00 AM [facility] BASOPHILS ABSOLUTE 0.03 0.00 - 0.20 K/uL 05/03/2015 6:00 AM [facility] IMMATURE GRANULOCYTES 1 0 - 2 % 05/03/2015 6:00 AM [facility] IMMATURE GRANULOCYTES ABSOLUTE 0.07 0.00 - 0.10 K/uL 05/03/2015 6:00 AM [facility] Blood Collection / Unknown 05/03/2015 3:50 AM [facility] 05/03/2015 5:45 AM TELE TECH us Magdi Crawford MD HEMATOLOGY ORDERABLES Final Result [facility] CLIA# [id number] [facility] [place] [address] * (ABNORMAL) COMPREHENSIVE METABOLIC PANEL (05/03/2015 3:50 AM TELE TECH) SODIUM 140 136 - 145 mmol/L 05/03/2015 6:41 AM [facility] POTASSIUM 3.7 3.5 - 5.1 mmol/L 05/03/2015 6:41 AM [facility] CHLORIDE 105 98 - 107 mmol/L 05/03/2015 6:41 AM [facility] CO2 30 21 - 32 mmol/L 05/03/2015 6:41 AM [facility] CALCIUM 7.7(L) 8.4 - 10.1 mg/dL 05/03/2015 6:41 AM [facility] BUN 14 7 - 17 mg/dL 05/03/2015 6:41 AM [facility] CREATININE 0.38(L) 0.55 - 1.02 mg/dL 05/03/2015 6:41 AM [facility] GLUCOSE 126(H) 74 - 106 mg/dL 05/03/2015 6:41 AM [facility] TOTAL PROTEIN 5.4(L) 6.4 - 8.2 g/dL 05/03/2015 6:41 AM [facility] ALBUMIN 1.6(L) 3.4 - 5.0 g/dL 05/03/2015 6:41 AM [facility] BILIRUBIN TOTAL 0.5 0.2 - 1.0 mg/dL 05/03/2015 6:41 AM [facility] ALKALINE PHOSPHATASE 69 25 - 100 U/L 05/03/2015 6:41 AM [facility] AST 10(L) 15 - 37 U/L 05/03/2015 6:41 AM [facility] ALT 9(L) 13 - 61 U/L 05/03/2015 6:41 AM [facility] GFR >60 >=60 mL/min/1. 73 sq meter 05/03/2015 6:41 AM [facility] [place] [facility] Comment: eGFR has not been validated [...] mL/min/1. 73 sq meter 05/03/2015 6:41 AM [facility] ANION GAP 5(L) 8 - 16 mmol/L 05/03/2015 6:41 AM [facility] Blood Collection / Unknown 05/03/2015 3:50 AM TELE TECH 05/03/2015 5:45 AM TELE TECH us Magdi Crawford MD CHEMISTRY ORDERABLES Final Result [facility] CLIA# [id number] [facility] [place] [address] documented in this encounter Visit Diagnoses Not on filedocumented in this encounter
--- OUTSIDE RECORDS SUMMARY | 2024-10-01 07:01 | XMS_ITS | Clinical Summary ---
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
--- OUTSIDE RECORDS SUMMARY | 2024-10-01 07:01 | XMS_ITS | Encounter Summary ---
Author Organization [facility] Address [address] [place] [address] Care Team Providers Care Single Spindle Screw Machine Operator Name Role Phone Unavailable Primary Care Provider Unavailabl e Encounter Details Date Type Department Care Team (Late st Contact Info) Description 04/26/2015 Lab Requisition 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 Gender Identity Not on file Sexual Orientation Not on file documented as of this encounter Plan of Treatment Not on file documented as of this encounter Procedures Procedure Name Priority Date/Time Associated Diagnosis Comments CBC WITH DIFFERENTIAL Routine 04/26/2015 3:30 AM AIRCRAFT LANDING GEAR INSPECTOR TRIGLYCERIDE Routine 04/26/2015 3:30 AM AIRCRAFT LANDING GEAR INSPECTOR PREALBUMIN Routine 04/26/2015 3:30 AM AIRCRAFT LANDING GEAR INSPECTOR LIPID PANEL Routine 04/26/2015 3:30 AM AIRCRAFT LANDING GEAR INSPECTOR COMPREHENSIVE METABOLIC PANEL Routine 04/26/2015 3:30 AM AIRCRAFT LANDING GEAR INSPECTOR documented in this encounter Results * (ABNORMAL) LIPID PANEL (04/26/2015 3:30 AM AIRCRAFT LANDING GEAR INSPECTOR) [facility] CHOLESTEROL <50 <200 mg/dL 04/26/2015 6:31 AM [facility] TRIGLYCERIDE 114 <150 mg/dL 04/26/2015 6:31 AM [facility] HDL 18(L) 40 - 59 mg/dL 04/26/2015 6:31 AM [facility] LDL CALCULATED <100 mg/dL 04/26/2015 6:31 AM [facility] Comment: Cholesterol <50 Calculation invalid NON-HDL CHOLESTEROL <130 mg/dL 04/26/2015 6:31 AM [facility] Comment: Cholesterol <50 Calculation invalid Blood Collection / Unknown 04/26/2015 3:30 AM AIRCRAFT LANDING GEAR INSPECTOR 04/26/2015 5:29 AM AIRCRAFT LANDING GEAR INSPECTOR [facility] - 04/26/2015 6:31 AM AIRCRAFT LANDING GEAR INSPECTOR TOTAL CHOLESTEROL mg/dL Desirable <200 Borderline high [...] Magdi Crawford MD CHEMISTRY ORDERABLES Final Result [facility]# [id number] [address] [place] [address] * TRIGLYCERIDE (04/26/2015 3:30 AM AIRCRAFT LANDING GEAR INSPECTOR) TRIGLYCERIDE 114 <150 mg/dL 04/26/2015 6:24 AM [facility] Blood Collection / Unknown 04/26/2015 3:30 AM AIRCRAFT LANDING GEAR INSPECTOR 04/26/2015 5:29 AM AIRCRAFT LANDING GEAR INSPECTOR [facility] - 04/26/2015 6:24 AM AIRCRAFT LANDING GEAR INSPECTOR TRIGLYCERIDES mg/dL Normal < 150 Borderline High 150 - 199 High 200 - 499 Very High >= 500 Based on AHA/NCEP Guidelines. us Magdi Crawford MD CHEMISTRY ORDERABLES Final Result Performing Organization Address City/[facility]/ZIP Co de Phone Number [facility] CLIA# [id number] [address] [place] [address] * (ABNORMAL) PREALBUMIN (04/26/2015 3:30 AM AIRCRAFT LANDING GEAR INSPECTOR) Pathologist [facility] PREALBUMIN 18(L) 20 - 40 mg/dL 04/26/2015 6:24 AM [facility] Blood Collection / Unknown 04/26/2015 3:30 AM AIRCRAFT LANDING GEAR INSPECTOR 04/26/2015 5:29 AM AIRCRAFT LANDING GEAR INSPECTOR us Magdi Crawford MD CHEMISTRY ORDERABLES Final Result Performing Organization Address [facility] Co de Phone Number [facility] CLIA# [id number] [address] [place] [address] * (ABNORMAL) CBC WITH DIFFERENTIAL (04/26/2015 3:30 AM AIRCRAFT LANDING GEAR INSPECTOR) [facility] WBC 15.5(H) 4.8 - 10.8 K/uL 04/26/2015 6:[address] [facility] [employer] [facility] RBC 2.66(L) 4.20 - 5.40 M/uL 04/26/2015 6:08 AM [facility] HEMOGLOBIN 7.9(L) 12.0 - 16.0 g/dL 04/26/2015 6:08 AM [facility] HEMATOCRIT 24.2(L) 36.0 - 46.0 % 04/26/2015 6:08 AM [facility] MCV 91.0 84.0 - 103.0 fL 04/26/2015 6:08 AM [facility] MCH 29.7 27.0 - 34.0 pg 04/26/2015 6:08 AM [facility] MCHC 32.6 30.0 - 35.0 g/dL 04/26/2015 6:08 AM [facility] RDW 16.3(H) 11.0 - 14.5 % 04/26/2015 6:08 AM [facility] RDW-STDEV 53.1 37.0 - 54.0 fL 04/26/2015 6:08 AM [facility] PLATELETS 653(H) 140 - 440 K/uL 04/26/2015 6:08 AM [facility] MPV 10.0 8.9 - 12.8 fL 04/26/2015 6:08 AM [facility] NEUTROPHILS 82(H) 42 - 75 % 04/26/2015 6:08 AM [facility] LYMPHOCYTES 7(L) 24 - 44 % 04/26/2015 6:08 AM [facility] MONOCYTES 9 2 - 10 % 04/26/2015 6:08 AM [facility] EOSINOPHILS 1 0 - 7 % 04/26/2015 6:08 AM [facility] BASOPHILS 0 0 - 1 % 04/26/2015 6:08 AM [facility] NEUTROPHIL ABSOLUTE 12.66(H) 2.00 - 8.00 K/uL 04/26/2015 6:08 AM [facility] LYMPHOCYTE ABSOLUTE 1.06(L) 1.20 - 4.00 K/uL 04/26/2015 6:08 AM [facility] MONOCYTE ABSOLUTE 1.42(H) 0.10 - 0.60 K/uL 04/26/2015 6:[address] [facility] [employer] [facility] EOSINOPHIL ABSOLUTE 0.20 0.00 - 0.70 K/uL 04/26/2015 6:08 AM [facility] BASOPHILS ABSOLUTE 0.05 0.00 - 0.20 K/uL 04/26/2015 6:08 AM [facility] IMMATURE GRANULOCYTES 1 0 - 2 % 04/26/2015 6:08 AM [facility] IMMATURE GRANULOCYTES ABSOLUTE 0.14(H) 0.00 - 0.10 K/uL 04/26/2015 6:08 AM [facility] Blood Collection / Unknown 04/26/2015 3:30 AM AIRCRAFT LANDING GEAR INSPECTOR 04/26/2015 5:29 AM AIRCRAFT LANDING GEAR INSPECTOR us Magdi Crawford MD HEMATOLOGY ORDERABLES Final Result [facility] CLIA# [id number] On license of [facility] [place] [address] * (ABNORMAL) COMPREHENSIVE METABOLIC PANEL (04/26/2015 3:30 AM AIRCRAFT LANDING GEAR INSPECTOR) Pathologist [facility] SODIUM 142 136 - 145 mmol/L 04/26/2015 6:24 AM [facility] POTASSIUM 3.3(L) 3.5 - 5.1 mmol/L 04/26/2015 6:24 AM [facility] CHLORIDE 105 98 - 107 mmol/L 04/26/2015 6:24 AM [facility] CO2 31 21 - 32 mmol/L 04/26/2015 6:24 AM [facility] CALCIUM 7.5(L) 8.4 - 10.1 mg/dL 04/26/2015 6:24 AM [facility] BUN 13 7 - 17 mg/dL 04/26/2015 6:24 AM [facility] CREATININE 0.34(L) 0.55 - 1.02 mg/dL 04/26/2015 6:24 AM [facility] GLUCOSE 101 74 - 106 mg/dL 04/26/2015 6:24 AM [facility] TOTAL PROTEIN 4.6(L) 6.4 - 8.2 g/dL 04/26/2015 6:24 AM [facility] ALBUMIN 1.3(L) 3.4 - 5.0 g/dL 04/26/2015 6:24 AM [facility] BILIRUBIN TOTAL 0.3 0.2 - 1.0 mg/dL 04/26/2015 6:24 AM [facility] ALKALINE PHOSPHATASE 53 25 - 100 U/L 04/26/2015 6:24 AM [facility] AST 13(L) 15 - 37 U/L 04/26/2015 6:24 AM [facility] ALT 8(L) 13 - 61 U/L 04/26/2015 6:24 AM [facility] GFR >60 >=60 mL/min/1. 73 sq meter 04/26/2015 6:24 AM [facility] Comment: eGFR has not been validated for [...] 73 sq meter 04/26/2015 6:24 AM [facility] ANION GAP 6(L) 8 - 16 mmol/L 04/26/2015 6:24 AM [facility] Blood Collection / Unknown 04/26/2015 3:30 AM AIRCRAFT LANDING GEAR INSPECTOR 04/26/2015 5:29 AM AIRCRAFT LANDING GEAR INSPECTOR [facility] - 04/26/2015 6:24 AM AIRCRAFT LANDING GEAR INSPECTOR The reference range for ALT has changed from its previous range of 12-78 U/L as of 03/31/2015. us Magdi Crawford MD CHEMISTRY ORDERABLES Final Result [facility] CLIA# [id number] [facility] [place] [address] documented in this encounter Visit Diagnoses Not on filedocumented in this encounter
--- OUTSIDE RECORDS SUMMARY | 2024-10-01 07:01 | XMS_ITS | Encounter Summary ---
Author Organization [facility] Address [address] [place] [address] Care Team Providers Care Drop Wire Stringer Name Role Phone Unavailable Primary Care Provider Unavailabl e Encounter Details Date Type Department Care Team (Late st Contact Info) Description 05/05/2015 Lab Requisition [facility] Laboratory Services [address] [address] [place] [address] Magdi Crawford MD [address] [place] [address] Social History Tobacco Use Types Packs/Day Years Used Date Smoking Tobacco: Never Assessed Comments Unknown Sex and Gender Information Value Date Recorded Sex Assigned at Not on file Legal Sex Female 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 Gender Identity Not on file Sexual Orientation Not on file documented as of this encounter Plan of Treatment Not on file documented as of this encounter Procedures Procedure Name Priority Date/Time Associated Diagnosis Comments CBC WITH DIFFERENTIAL Routine 05/05/2015 6:00 AM 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 COMPREHENSIVE METABOLIC PANEL Routine 05/05/2015 6:00 AM 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 documented in this encounter Results * (ABNORMAL) CBC WITH DIFFERENTIAL (05/05/2015 6:00 AM 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) WBC 9.6 4.8 - 10.8 K/uL 05/05/2015 7:28 AM 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 [facility] RBC 3.05(L) 4.20 - 5.40 M/uL 05/05/2015 7:28 AM 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 [facility] HEMOGLOBIN 8.5(L) 12.0 - 16.0 g/dL 05/05/2015 7:28 AM [facility] HEMATOCRIT 27.1(L) 36.0 - 46.0 % 05/05/2015 7:28 AM [facility] MCV 88.9 84.0 - 103.0 fL 05/05/2015 7:28 AM [facility] MCH 27.9 27.0 - 34.0 pg 05/05/2015 7:28 AM [facility] MCHC 31.4 30.0 - 35.0 g/dL 05/05/2015 7:28 AM [facility] RDW 16.4(H) 11.0 - 14.5 % 05/05/2015 7:28 AM [facility] RDW-STDEV 52.7 37.0 - 54.0 fL 05/05/2015 7:28 AM [facility] PLATELETS 367 140 - 440 K/uL 05/05/2015 7:28 AM [facility] MPV 10.7 8.9 - 12.8 fL 05/05/2015 7:28 AM [facility] NEUTROPHILS 78(H) 42 - 75 % 05/05/2015 7:28 AM [facility] LYMPHOCYTES 11(L) 24 - 44 % 05/05/2015 7:28 AM [facility] MONOCYTES 7 2 - 10 % 05/05/2015 7:28 AM [facility] EOSINOPHILS 3 0 - 7 % 05/05/2015 7:28 AM [facility] BASOPHILS 0 0 - 1 % 05/05/2015 7:28 AM [facility] NEUTROPHIL ABSOLUTE 7.44 2.00 - 8.00 K/uL 05/05/2015 7:28 AM [facility] LYMPHOCYTE ABSOLUTE 1.08(L) 1.20 - 4.00 K/uL 05/05/2015 7:28 AM [facility] MONOCYTE ABSOLUTE 0.67(H) 0.10 - 0.60 K/uL 05/05/2015 7:28 AM [facility] EOSINOPHIL ABSOLUTE 0.29 0.00 - 0.70 K/uL 05/05/2015 7:28 AM [facility] BASOPHILS ABSOLUTE 0.02 0.00 - 0.20 K/uL 05/05/2015 7:28 AM [facility] IMMATURE GRANULOCYTES 1 0 - 2 % 05/05/2015 7:28 AM [facility] IMMATURE GRANULOCYTES ABSOLUTE 0.11(H) 0.00 - 0.10 K/uL 05/05/2015 7:28 AM [facility] Blood Collection / Unknown 05/05/2015 6:00 AM 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 05/05/2015 7:23 AM 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 us Magdi Crawford MD HEMATOLOGY ORDERABLES Final Result [facility] CLIA# [id number] [address] [place] [address] * (ABNORMAL) COMPREHENSIVE METABOLIC PANEL (05/05/2015 6:00 AM 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) SODIUM 140 136 - 145 mmol/L 05/05/2015 7:52 AM [facility] POTASSIUM 3.7 3.5 - 5.1 mmol/L 05/05/2015 7:52 AM [facility] CHLORIDE 103 98 - 107 mmol/L 05/05/2015 7:52 AM [facility] CO2 30 21 - 32 mmol/L 05/05/2015 7:52 AM [facility] CALCIUM 7.9(L) 8.4 - 10.1 mg/dL 05/05/2015 7:52 AM [facility] BUN 18(H) 7 - 17 mg/dL 05/05/2015 7:52 AM [facility] CREATININE 0.41(L) 0.55 - 1.02 mg/dL 05/05/2015 7:52 AM [facility] GLUCOSE 163(H) 74 - 106 mg/dL 05/05/2015 7:52 AM [facility] TOTAL PROTEIN 6.0(L) 6.4 - 8.2 g/dL 05/05/2015 7:52 AM [facility] ALBUMIN 1.8(L) 3.4 - 5.0 g/dL 05/05/2015 7:52 AM [facility] BILIRUBIN TOTAL 0.3 0.2 - 1.0 mg/dL 05/05/2015 7:52 AM [facility] ALKALINE PHOSPHATASE 107(H) 25 - 100 U/L 05/05/2015 7:52 AM [facility] AST 21 15 - 37 U/L 05/05/2015 7:52 AM [facility] ALT 14 13 - 61 U/L 05/05/2015 7:52 AM [facility] GFR >60 >=60 mL/min/1. 73 sq meter 05/05/2015 7:52 AM [facility] Comment: eGFR has not been validated for [...] mL/min/1. 73 sq meter 05/05/2015 7:52 AM [facility] ANION GAP 7(L) 8 - 16 mmol/L 05/05/2015 7:52 AM [facility] Blood Collection / Unknown 05/05/2015 6:00 AM 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 05/05/2015 7:23 AM 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 Magdi Crawford MD CHEMISTRY ORDERABLES Final Result [facility] CLIA# [id number] [address] [place] [address] documented in this encounter Visit Diagnoses Not on filedocumented in this encounter
--- OUTSIDE RECORDS SUMMARY | 2024-10-01 07:01 | XMS_ITS | Encounter Summary ---
Author Organization [employer] [facility] Address [address] [place] [address] Care Team Providers Care Dry Wall Finisher Name Role Phone Unavailable Primary Care Provider Unavailabl e Encounter Details Date Type Department Care Team (Late st Contact Info) Description 04/29/2015 Lab Requisition [facility] E Delilah [address] [place] [address] Magdi Crawford MD [address] [place] [address] Social History Tobacco Use Types Packs/Day Years Used Date Smoking Tobacco: Never Assessed Comments Unknown Sex and Gender Information Value Date Recorded Sex Assigned at Not on file Legal Sex Female 4:17 AM BEHAVIOR ANALYST Gender Identity Not on file Sexual Orientation Not on file documented as of this encounter Plan of Treatment Not on file documented as of this encounter Procedures Procedure Name Priority Date/Time Associated Diagnosis Comments CBC WITH DIFFERENTIAL Routine 04/29/2015 4:00 AM BEHAVIOR ANALYST PHOSPHORUS Routine 04/29/2015 4:00 AM BEHAVIOR ANALYST MAGNESIUM LEVEL Routine 04/29/2015 4:00 AM BEHAVIOR ANALYST COMPREHENSIVE METABOLIC PANEL Routine 04/29/2015 4:00 AM BEHAVIOR ANALYST documented in this encounter Results * (ABNORMAL) PHOSPHORUS (04/29/2015 4:00 AM BEHAVIOR ANALYST) PHOSPHORUS 2.2(L) 2.5 - 4.9 mg/dL 04/29/2015 6:16 AM BEHAVIOR ANALYST [facility] Blood Collection / Unknown 04/29/2015 4:00 AM BEHAVIOR ANALYST 04/29/2015 5:24 AM BEHAVIOR ANALYST us Magdi Crawford MD CHEMISTRY ORDERABLES Final Result Performing Organization Address [facility] Co de Phone Number [facility] CLIA# [id number] [address] [place] [address] * MAGNESIUM LEVEL (04/29/2015 4:00 AM BEHAVIOR ANALYST) Pathologist [facility] MAGNESIUM 1.8 1.8 - 2.4 mg/dL 04/29/2015 6:16 AM [facility] Blood Collection / Unknown 04/29/2015 4:00 AM BEHAVIOR ANALYST 04/29/2015 5:24 AM BEHAVIOR ANALYST us Magdi Crawford MD CHEMISTRY ORDERABLES Final Result Performing Organization Address City/[facility] Co de Phone Number [facility] CLIA# [id number] [address] [place] [address] * (ABNORMAL) CBC WITH DIFFERENTIAL (04/29/2015 4:00 AM BEHAVIOR ANALYST) Pathologist [facility] WBC 8.9 4.8 - 10.8 K/uL 04/29/2015 5:45 AM [facility] RBC 2.53(L) 4.20 - 5.40 M/uL 04/29/2015 5:45 AM [facility] HEMOGLOBIN 7.3(L) 12.0 - 16.0 g/dL 04/29/2015 5:45 AM [facility] HEMATOCRIT 23.1(L) 36.0 - 46.0 % 04/29/2015 5:45 AM [facility] MCV 91.3 84.0 - 103.0 fL 04/29/2015 5:45 AM [facility] MCH 28.9 27.0 - 34.0 pg 04/29/2015 5:45 AM [facility] MCHC 31.6 30.0 - 35.0 g/dL 04/29/2015 5:45 AM [facility] RDW 16.4(H) 11.0 - 14.5 % 04/29/2015 5:45 AM [facility] RDW-STDEV 53.0 37.0 - 54.0 fL 04/29/2015 5:45 AM [facility] PLATELETS 640(H) 140 - 440 K/uL 04/29/2015 5:45 AM [facility] MPV 9.6 8.9 - 12.8 fL 04/29/2015 5:45 AM [facility] NEUTROPHILS 71 42 - 75 % 04/29/2015 5:45 AM [facility] LYMPHOCYTES 11(L) 24 - 44 % 04/29/2015 5:45 AM [facility] MONOCYTES 12(H) 2 - 10 % 04/29/2015 5:45 AM [facility] EOSINOPHILS 4 0 - 7 % 04/29/2015 5:45 AM [facility] BASOPHILS 1 0 - 1 % 04/29/2015 5:45 AM [facility] NEUTROPHIL ABSOLUTE 6.30 2.00 - 8.00 K/uL 04/29/2015 5:45 AM [facility] LYMPHOCYTE ABSOLUTE 1.00(L) 1.20 - 4.00 K/uL 04/29/2015 5:45 AM [facility] MONOCYTE ABSOLUTE 1.05(H) 0.10 - 0.60 K/uL 04/29/2015 5:45 AM [facility] EOSINOPHIL ABSOLUTE 0.38 0.00 - 0.70 K/uL 04/29/2015 5:45 AM [facility] BASOPHILS ABSOLUTE 0.05 0.00 - 0.20 K/uL 04/29/2015 5:45 AM [facility] IMMATURE GRANULOCYTES 1 0 - 2 % 04/29/2015 5:45 AM [facility] IMMATURE GRANULOCYTES ABSOLUTE 0.11(H) 0.00 - 0.10 K/uL 04/29/2015 5:45 AM [facility] Blood Collection / Unknown 04/29/2015 4:00 AM BEHAVIOR ANALYST 04/29/2015 5:24 AM BEHAVIOR ANALYST us Magdi Crawford MD HEMATOLOGY ORDERABLES Final Result [facility] CLIA# [id number] [facility] [place] [address] * (ABNORMAL) COMPREHENSIVE METABOLIC PANEL (04/29/2015 4:00 AM BEHAVIOR ANALYST) SODIUM 140 136 - 145 mmol/L 04/29/2015 6:16 AM [facility] POTASSIUM 3.2(L) 3.5 - 5.1 mmol/L 04/29/2015 6:16 AM [facility] CHLORIDE 105 98 - 107 mmol/L 04/29/2015 6:16 AM [facility] CO2 27 21 - 32 mmol/L 04/29/2015 6:16 AM [facility] CALCIUM 7.5(L) 8.4 - 10.1 mg/dL 04/29/2015 6:16 AM [facility] BUN 16 7 - 17 mg/dL 04/29/2015 6:16 AM [facility] CREATININE 0.46(L) 0.55 - 1.02 mg/dL 04/29/2015 6:16 AM [facility] GLUCOSE 127(H) 74 - 106 mg/dL 04/29/2015 6:16 AM [facility] TOTAL PROTEIN 4.9(L) 6.4 - 8.2 g/dL 04/29/2015 6:16 AM [facility] ALBUMIN 1.4(L) 3.4 - 5.0 g/dL 04/29/2015 6:16 AM [facility] BILIRUBIN TOTAL 0.3 0.2 - 1.0 mg/dL 04/29/2015 6:16 AM [facility] ALKALINE PHOSPHATASE 64 25 - 100 U/L 04/29/2015 6:16 AM [facility] AST 10(L) 15 - 37 U/L 04/29/2015 6:16 AM [facility] ALT 8(L) 13 - 61 U/L 04/29/2015 6:16 [facility] GFR >60 >=60 mL/min/1. 73 sq meter 04/29/2015 6:16 AM [facility] Comment: eGFR has not been validated [...] mL/min/1. 73 sq meter 04/29/2015 6:16 AM [facility] ANION GAP 8 8 - 16 mmol/L 04/29/2015 6:16 AM [facility] Blood Collection / Unknown 04/29/2015 4:00 AM BEHAVIOR ANALYST 04/29/2015 5:24 AM [facility] us Magdi Crawford MD CHEMISTRY ORDERABLES Final Result [facility] CLIA# [id number] [address] [place] [id number] documented in this encounter Visit Diagnoses Not on filedocumented in this encounter
--- OUTSIDE RECORDS SUMMARY | 2024-10-01 07:01 | XMS_ITS | Clinical Summary ---
Author Organization [facility] Address [address] [place] [address] Phone Care Team Providers Care Appellate Law Clerk Name Role Phone Unavailable Primary Care [...] Data STL ABSTRACTION Provider, Abstract 07/16/2024 Telephone [facility] [address] [facility] [address] [place] [phone] Cristel Eagle MD Confirm appointment (Called pt to convey [facility] customer service number and confirm appointment on 07/22/2024 at 1:15. If pt returns call, she needs to contact [facility] direct at to set up home monitoring, please confirm appt on 07/22 as well.) 07/08/2024 Telephone [place] [id number] [facility] [address] [place] [phone] Cristel Eagle MD Follow Up from Last 3 Months Immunizations Immunization Administration [...] on file Legal Sex Female 9:48 AM METAL GRINDER Gender Identity Not on file Sexual Orientation Not on file Last Filed Vital Signs Vital Sign Reading Time Taken Comments Blood Pressure 174/80 04/22/2024 12:15 PM METAL GRINDER Pulse 70 04/22/2024 4:45 PM METAL GRINDER Temperature 37 C (98.6 F) 04/22/2024 11:23 AM METAL GRINDER Respiratory Rate 19 04/22/2024 4:45 PM METAL GRINDER Oxygen Saturation 94% 04/22/2024 4:45 PM METAL GRINDER Inhaled Oxygen Concentration - - Weight 55.3 kg (122 lb) 04/21/2024 11:20 PM METAL GRINDER Height 152.4 cm (5') 04/19/2024 2:56 AM METAL GRINDER Body Mass Index 23.83 04/19/2024 2:56 AM METAL GRINDER Plan of Treatment Health Maintenance Due Date Last Done Comments DTAP/TDAP/TD VACCINES (1 - Tdap) 1965 PNEUMOCOCCAL VACCINE 50+ YEA RS (1 of 1 - PCV) 1996 ZOSTER VACCINE (1 of 2) 1996 OSTEOPOROSIS SCREENING 12/22/2011 RSV VACCINE (60+ or ) (1 - 1-dose 75+ series) 2021 INFLUENZA VACCINE (#1) 2024 01/09/2022, 1999 Medical Devices Implanted Type Area Client Specialist Device Identifier Shelf Expiration Date Model / Serial / Lot Defib Icd Shreve Xt Mri [id number] Dual Chmbr Surescan [id number] - [id number] Implanted:Qty: 1 on 04/21/2024 by Cristel Eagle MD at [facility] Defibrillator N/A: Chest Wall [employer]- CARD RHYTHM MGMT [id number] 08/06/2025 [id number] / [id number] / Lead Pacing Capsure Fix Novus 45cm [id number] - Csc - [id number] Implanted:Qty: 1 on 04/21/2024 by Cristel Eagle MD at [facility] Lead Left: Chest Wall [employer]- CRM - BULK BUY [id number] 01/02/2026 [id number] / [id number] / Lead Sprint Quattro Secure-S 55cm [id number] - Csc - [id number] Implanted:Qty: 1 on 04/21/2024 by Cristel Eagle MD at [facility] Lead Left: Chest Wall [employer]- CRM - BULK BUY [id number] 02/21/2025 [id number] / [id number] / [place] [address] [place] [id number] RX OPTUM RX Member Subscriber Plan / [...] Advance Directives For more information, please contact: [phone] * Full Code (Latest Code Status on File) Date Activated Date Inactivated Comments 04/21/2024 5:10 PM 04/22/2024 7:07 PM * Full Code Date Activated Date Inactivated Comments 04/19/2024 3:01 AM 04/21/2024 5:10 PM
--- OUTSIDE RECORDS SUMMARY | 2024-10-01 07:01 | XMS_ITS | Encounter Summary ---
Author Organization [employer] My [employer] [facility] Address [address] [place] [address] Care Team Providers Care Software Quality Analyst Name Role Phone Unavailable Primary Care Provider Unavailabl e Encounter Details Date Type Department Care Team (Latest Contact Info) Description 01/12/2000 Outpatient Historical [facility] Gurwinder Felipe Jr., MD [address] [place] [phone] Vaccine for viral hepatitis (Primary Dx) Social History Tobacco Use Types Packs/Day Years Used Date Smoking Tobacco: Never Assessed Comments Unknown Sex and Gender Information Value Date Recorded Sex Assigned at Not on file Legal Sex Female 4:17 AM HAND MODEL Gender Identity Not on file Sexual Orientation Not on file documented as of this encounter Plan of Treatment Not on file documented as of this encounter Visit Diagnoses Diagnosis Vaccine for viral hepatitis- Primary Need for prophylactic vaccination and inoculation against viral hepatitis documented in this encounter
--- OUTSIDE RECORDS SUMMARY | 2024-10-01 07:01 | XMS_ITS | Patient Health Record ---
Author Organization [facility] Address [address] [place], [place] [id number] Care Team Providers Care Director Of Technology Name Role Phone Betito BYRD, Jannet Primary Care Provider Unavail able Janel BYRD, Uri Unavailable [phone] Radha Vargas Unavailable [phone] Allergies No Known Allergies Reason For Referral [...] W/U Status Risk Notes Problem Solitary sacroiliitis (895206996) Sacroiliitis, not elsewhere classified (M46.1) Active confirmed Problem High risk drug monitoring status (999847934) tobacco cloth reclaimer (current) use of opiate analgesic (Z79.891) Active confirmed Problem Arthralgia of the lower leg (561254994) Pain in right knee (M25.561) Active confirmed Problem Arthralgia of the lower leg (204677883) Pain in left knee (M25.562) Active confirmed Problem Hypersomnia (45311306) Hypersomnia, unspecified (G47.10) Active confirmed Problem Chronic pain (15460379) Other chronic pain (G89.29) Active confirmed Problem Essential hypertension (47529445) Essential (primary) hypertension (I10) Active confirmed Problem Fibromyalgia (711425541) Fibromyalgia (M79.7) Active confirmed Problem Long-term current use of drug therapy (067409036) Other snf (current) drug therapy (Z79.899) Active confirmed Problem Low back pain (091789246) Low back pain, unspecified (M54.50) Active confirmed Problem Low back pain (finding) (766873640) Vertebrogenic low back pain (M54.51) Active confirmed Vital Signs Temperature 97.5 degrees Fahrenheit 07/10/2024 Oximetry 97 % 07/10/2024 Blood pressure diastolic 100 mm Hg 07/10/2024 Height 61 in 07/10/2024 Blood pressure systolic 182 mm Hg 07/10/2024 Weight 104.4 lbs 07/10/2024 BMI 19.72 kg/m2 07/10/2024 Encounters Encounter Location Date Provider Diagnosis [facility] [address] [place], [place] [id number] 10/02/2023 Radha Montalvo Vertebrogenic low ba ck pain M54.51 ; Other chronic pain G89.29 ; Hypersomnia, unspecified G47.10 and senior living (current) use of opiate analgesic Z79.891 [facility] [address] [place], [place] [id number] 10/30/2023 Radha Montalvo Vertebrogenic low ba ck pain M54.51 ; Other chronic pain G89.29 ; Hypersomnia, unspecified G47.10 and senior living (current) use of opiate analgesic Z79.891 [facility] [address] [place], [place] [id number] 12/27/2023 Uri Islas Vertebrogenic low ba ck pain M54.51 ; Other chronic pain G89.29 and Hypersomnia, unspecified G47.10 [facility] [address] [place], [place] [id number] 03/13/2024 Uri Islas Vertebrogenic low ba ck pain M54.51 ; Other chronic pain G89.29 ; Hypersomnia, unspecified G47.10 and Essential (primary) hypertension I10 [facility] [address] [place], [place] [id number] 05/22/2024 Uri Islas Vertebrogenic low ba ck pain M54.51 ; Other chronic pain G89.29 and Hypersomnia, unspecified G47.10 [facility] [address] [place], [place] [id number] 07/10/2024 Uri Islas Vertebrogenic low ba ck pain M54.51 ; Other chronic pain G89.29 ; Essential (primary) hypertension I10 and Hypersomnia, unspecified G47.10 [facility] [address] [place], [place] [id number] 01/21/2024 Uri Islas Assessments Encounter Date Diagnosis (ICD Code) Assessment Notes Treatment Notes Treatment Clinical Notes Section Notes 07/10/2024 Other chronic pain (ICD-10 - G89.29) Patient reports that taking her pain medication allows her to cook for herself. Plan to continue oral opioid medication. 07/10/2024 Vertebrogenic low back pain (ICD-10 - M54.51) Chronic axial lumbosacral spine pain. 10/02/2023 Vertebrogenic low back pain (ICD-10 - [...] M54.51) Chronic axial lumbosacral spine pain. 12/27/2023 Hypersomnia, unspecified (ICD-10 - G47.10) Patient [...] to continue oral opioid medication management. 03/13/2024 Hypersomnia, unspecified (ICD-10 - G47.10) Patient [...] to continue oral opioid medication management. 05/22/2024 Hypersomnia, unspecified (ICD-10 - G47.10) Patient [...] opioid medication management with a quantity titration. 07/10/2024 Essential (primary) hypertension (ICD-10 - I10) Education sheet given at today's visit; patient to address with PCP. 10/02/2023 tobacco cloth reclaimer (current) use of opiate analgesic (ICD-10 - Z79.891) Patient has a total daily MED of 60. This places the [facility] in the [facility] high risk category for total daily opioid usage. 2022 opioid (OUD) risk tool score = 1. This places the patient in the low risk category. 10/30/2023 tobacco cloth reclaimer (current) use of opiate analgesic (ICD-10 - [...] in relation to sleep for safety concerns. 07/10/2024 Other The service was provided by SEE Marcus, as part of the ongoing care plan established by Uri Islas MD, who was present in the office for direct supervision during the encounter. Patient was provided with a letter at today's visit informing patient that this clinic is closing due to Dr. Islas's mcc; see scanned document. Terminal prescriptions were given [...] Date [employer] MEDIC[employer] ADVANTAGE [address] [address] [place] [address] [phone] [id number] Tian felipe Love Self - patient is the insured Medical [...] ligation Removal of anal cyst, performed in [place], [place] 1967 Hysterectomy, performed in [place], [place], 1987 Oral surgery, performed in [place], [place], 2005 Foot surgery, right, performed at [facility] b y Dr. Bonilla, 2013, 2015 Removal of tumor, abdominal, performed a t [facility] by Dr. Dobbs, 2016 Repair of tear in bowel and ileostomy, performed at [facility] by Dr. Dobbs, 2016 Reversal of ileostomy, performed at [facility] by Dr. Godwin, 2019 Foot surgery, right second toe, performe d by Dr. Ramirez Pacemaker insertion, at [facility], 03/2024 Hospitalization History Reason Date(Month/Year) Fall, treated at [facility], 03/2024 Depression, treated at [facility] in [place], [place], 02/2024 Dehydration, hernia and ulcer, treated a t [facility], 11/2023 Child x 4 Heart attack, treated at [facility], 2019
--- OUTSIDE RECORDS SUMMARY | 2024-10-01 07:02 | XMS_ITS | Encounter Summary ---
Author Organization [employer] [facility] Address [address] [place] [address] Care Team Providers Care Credit Counselor Name Role Phone Unavailable Primary Care Provider Unavailabl e Encounter Details Date Type Department Care Team (Latest Contact Info) Description 12/06/2000 Outpatient Historical [facility] Gurwinder Felipe Jr., MD [address] [place] [phone] Unspecified essential hypertension (Primary Dx); Cramp of limb Social History Tobacco Use Types Packs/Day Years Used Date Smoking Tobacco: Never Assessed Comments Unknown Sex and Gender Information Value Date Recorded Sex Assigned at Not on file Legal Sex Female 4:17 AM PROJECT MANAGER ENTERTAINMENT AND MEDIA Gender Identity Not on file Sexual Orientation Not on file documented as of this encounter Plan of Treatment Not on file documented as of this encounter Visit Diagnoses Diagnosis Unspecified essential hypertension- Primary Cramp of limb documented in this encounter
--- OUTSIDE RECORDS SUMMARY | 2024-10-01 07:02 | XMS_ITS | Encounter Summary ---
Author Organization [facility] Address [address] [facility] Attn: Epic Prelude ADT KELSY ARITA [address] Care Team Providers Care Safety Inspector Name Role Phone Unavailable Primary Care Provider Unavailabl e Encounter Details Date Type Department Care Team (Late st Contact Info) Description 05/22/2001 Outpatient Historical [facility], Gurwinder Mora MD [address] [place] [address] Social History Tobacco Use Types Packs/Day Years Used Date Smoking Tobacco: Never Assessed Comments Unknown Sex and Gender Information Value Date Recorded Sex Assigned at Not on file Legal Sex Female 4:17 AM DIRECTOR CAREER Gender Identity Not on file Sexual Orientation Not on file documented as of this encounter Plan of Treatment Not on file documented as of this encounter Visit Diagnoses Not on filedocumented in this encounter
--- OUTSIDE RECORDS SUMMARY | 2024-10-01 07:02 | XMS_ITS | Encounter Summary ---
Author Organization [employer] [facility] Address [address] [place] [address] Care Team Providers Care Welfare Supervisor Name Role Phone Unavailable Primary Care Provider Unavailabl e Encounter Details Date Type Department Care Team (Latest Contact Info) Description 08/05/2001 Outpatient Historical [facility] Matteo Inman, Gurwinder Mora MD [address] [place] [phone] ACUTE SINUSITIS NOS (Primary Dx) Social History Tobacco Use Types Packs/Day Years Used Date Smoking Tobacco: Never Assessed Comments Unknown Sex and Gender Information Value Date Recorded Sex Assigned at Not on file Legal Sex Female 4:17 AM SACK CLEANER Gender Identity Not on file Sexual Orientation Not on file documented as of this encounter Plan of Treatment Not on file documented as of this encounter Visit Diagnoses Diagnosis Acute sinusitis, unspecified- Primary documented in this encounter
--- OUTSIDE RECORDS SUMMARY | 2024-10-01 07:02 | XMS_ITS | Encounter Summary ---
Author Organization [employer] [facility] Address [address] [place] [address] Care Team Providers Care Basic Sciences Dean Name Role Phone Unavailable Primary Care Provider Unavailabl e Encounter Details Date Type Department Care Team (Latest Contact Info) Description 05/20/2001 Outpatient Historical [facility] Gurwinder Felipe Jr., MD [address] [place] [phone] OSTEOARTHROS NOS-UNSPEC (Primary Dx); SKIN DISORDERS NEC; Benign jos skin leg Social History Tobacco Use Types Packs/Day Years Used Date Smoking Tobacco: Never Assessed Comments Unknown Sex and Gender Information Value Date Recorded Sex Assigned at Not on file Legal Sex Female 4:17 AM TELECOM FIELD TECHNICIAN Gender Identity Not on file Sexual Orientation [...]
--- OUTSIDE RECORDS SUMMARY | 2024-10-01 07:02 | XMS_ITS | Encounter Summary ---
Author Organization [employer] [facility] Address [address] [place] [address] Care Team Providers Care Joy Operator Helper Name Role Phone Unavailable Primary Care Provider Unavailabl e Encounter Details Date Type Department Care Team (Latest Contact Info) Description 05/27/2001 Outpatient Historical [facility] Gurwinder Felipe Jr., MD [address] [place] [phone] ATTEN-SURG DRESSNG/SUTUR (Primary Dx) Social History Tobacco Use Types Packs/Day Years Used Date Smoking Tobacco: Never Assessed Comments Unknown Sex and Gender Information Value Date Recorded Sex Assigned at Not on file Legal Sex Female 4:17 AM KILN STOKER Gender Identity Not on file Sexual Orientation Not on file documented as of this encounter Plan of Treatment Not on file documented as of this encounter Visit Diagnoses Diagnosis Attention to dressings and sutures- Primary documented in this encounter
--- NOTE | 2024-10-01 07:06 | ED_ITS ---
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 She states she started having some increased pain yesterday afternoon rates her pain a 7 out of 10 goes down both legs she denies any bowel or bladder incontinence. She has been ambulatory. She is resting comfortably in the bed currently. 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 Operator #1 ea 10/03/22 cyanocobalamin (vitamin B-12) 1,000 mcg PO DAILY #90 t abs 05/16/24 1,000 mcg tablet (Vitamin B-12) levothyroxine 75 mcg tablet 75 mcg PO QAM #90 tabs amlodipine 10 mg tablet 10 mg PO DAILY #90 tabs 05/25 aripiprazole 5 mg tablet 5 mg PO .qpm #30 tabs hydrocodone 5 mg-acetaminophen 325 1 tab PO Q6H PRN pa in #14 tabs 08/06/24 mg tablet bupropion HCl 150 mg 24 hr tablet, 150 mg PO QAM #30 t abs 08/12/24 extended release (Wellbutrin XL) ferrous gluconate 324 mg (38 mg See Rx Instructions .R oute 08/22/24 iron) tablet .COMPLEX #180 tabs sertraline 25 mg tablet See Rx Instructions .Route 0 08/22/24 .COMPLEX #100 tabs polyethylene glycol 3350 17 17 g PO DAILY #850 grams 0 08/24/24 gram/dose oral powder (Purelax) cefdinir 300 mg capsule 300 mg PO BID #14 caps 09/02 lisinopril 20 mg tablet 20 mg PO DAILY #30 tabs 08/24 05/20 atorvastatin 40 mg tablet 40 mg PO DAILY #90 tabs 11/17 Allergies Allergy/AdvReac Type Severity Reaction Status Date / Time No Known Allergies Allergy Verified 10/01/24 06:58 Review of Systems Const: Denies: fever(s), chills, body aches or change in appetite Eyes: Denies: blurry vision or eye discomfort ENMT: Denies: throat pain or dental pain Card: Denies: chest pain Resp: Denies: dyspnea GI: Denies: abdominal pain, nausea, vomiting or diarrhea : Denies: dysuria Musc: Denies: neck pain or back pain Skin/Breast: Denies: rash Neuro: Denies: headache(s) Psych: Denies: depression Srinivasan/Lymph: Denies: easy bruising All/Imm: Denies: urticaria PFSH ED PFSH: Medical History Ventricular tachycardia (paroxysmal) Polymorphic ventricular tachycardia Pacemaker Long-term current use of opiate analgesic Goes to [facility] Depression, major Mitral regurgitation Aortic valve stenosis Mitral regurgitation Exocrine pancreatic insufficiency Renal insufficiency Hiatal hernia with GERD Hypothyroidism Enrolled in chronic care management Osteoporosis Atherosclerotic heart disease of [place] coronary artery with other forms of angina pectoris Abnormal cardiovascular stress test NSTEMI (non-ST elevated myocardial infarction) Hyperlipidemia Hypertension Past heart attack Pain management contract signed Restless legs syndrome Fibromyalgia Chronic low back pain Dr. Benavidez es pain meds Surgical History History of implantable cardiac defibrillator (ICD) [facility] 04/19--pacemaker/defibrillator Hx of cardiac catheterization 1.19.25 OZH--no obstructive disease Hx of esophagogastroduodenoscopy 3.28.24 large hiatal hernia; gastritis Hx of colonoscopy 10.4.21 normal anastomosis S/P foot surgery History of mandibular surgery R jaw--has titanium plate; done for tumor--benign History of bowel resection benign growth H/O ileostomy Hx of appendectomy (~1973) Hx of hysterectomy (~1973) still has ovaries; had hyst due to bleeding; no cancer History of reversal of ileostomy Hx of tubal ligation Hx of foot surgery (~11/2013) RIGHT FOOT Family History Brother , BONE METS Cancer COLON CANCER Mother Heart disease Family history of thyroid problem Grandmother Heart disease Father Hyperlipidemia Bone cancer Social History Smoking and tobacco/nicotine status: former use of tobacco/nicotine Quit status (tobacco/nicotine): has quit using Year quit tobacco: quit 1989 Second hand smoke exposure: No Alcohol intake: never Substance/Drug Use: never Lives independently: Yes Household members: none Marital status: / Number of children: 3 Highest education level completed: Some College, No Degree Current occupational status: retired 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 Physical Exam Const: COMMON NORMALS: no acute distress, patient oriented x3 and healthy appearing HENMT: COMMON NORMALS: normocephalic and atraumatic HEAD & SCALP: normocephalic and atraumatic Eye: COMMON NORMALS: conjunctivae normal CONJUNCTIVA: Yes conjunctivae normal Neck/C-Spine: COMMON NORMALS: full ROM and supple Chest: COMMONS NORMALS: normal inspection of the chest Resp: COMMON NORMALS: normal respiratory effort Cardio: COMMON NORMALS: regular rate, regular rhythm and No murmurs present (Cardio) RATE: regular rate RHYTHM: regular rhythm Extremity: COMMON NORMALS: normal to inspection and full ROM Neuro: COMMON NORMALS: patient oriented x3, moves all extremities and no focal motor deficits Psych: COMMON NORMALS: mental status grossly normal, Normal thought process present and cooperative THOUGHT PROCESS: Normal thought process present Skin: COMMON NORMALS: no rashes or lesions noted and no wounds GENERAL SKIN EXAM: no rashes or lesions noted Course Vital Signs: Vital signs: Vital Signs Temperature 97.8 F 10/01/24 06:52 Pulse Rate 71 10/01/24 07:25 Respiratory Rate 16 10/01/24 06:52 Blood Pressure 222/109 10/01/24 07:25 Pulse Oximetry 98 10/01/24 07:25 Oxygen Delivery Me thod Room Air 10/01/24 06:52 MDM - Back Pain/Injury Medical Decision Making Patient presents here with back pain is chronic in nature she is well-appearing here she has no signs of epidural abscess no signs of cord compression she stable for discharge follow-up PCP return if worsening. Medical Records I reviewed the patient's medical records. No radiology studies performed this visit Discharge Plan Discharge Patient Disposition: Home Clinical Impression: Chronic pain Qualifiers: Chronic pain type: chronic pain syndrome Qualified Code(s): G89.4 - Chronic pain syndrome Condition: Stable Prescriptions: No Action amiodarone 200 mg tablet 200 mg PO DAILY (DME) Monet Heatoner Toe Fish Cutting Machine Operator See Rx Instructions .Route .MEDSUPPLY Qty: 1 0RF Rx Instructions: As directed by HOME cyanocobalamin (vitamin B-12) [Vitamin B-12] 1,000 mcg tablet 1,000 mcg PO DAILY Qty: 90 3RF levothyroxine 75 mcg tablet 75 mcg PO QAM Qty: 90 0RF amlodipine 10 mg tablet 10 mg PO DAILY Qty: 90 1RF aripiprazole 5 mg tablet 5 mg PO .qpm Qty: 30 2RF bupropion HCl [Wellbutrin XL] 150 mg tablet extended release 24 hr 150 mg PO QAM Qty: 30 1RF ferrous gluconate 324 mg (38 mg iron) tablet See Rx Instructions .ROUTE .COMPLEX Qty: 180 0RF Dose Instruction: TAKE ONE TABLET BY MOUTH TWICE DAILY Rx Instructions: TAKE ONE TABLET BY MOUTH TWICE DAILY sertraline 25 mg tablet See Rx Instructions .ROUTE .COMPLEX Qty: 100 0RF Dose Instruction: TAKE ONE TABLET BY MOUTH EVERY DAY Rx Instructions: TAKE ONE TABLET BY MOUTH EVERY DAY lisinopril 20 mg tablet 20 mg PO DAILY Qty: 30 1RF atorvastatin 40 mg tablet 40 mg PO DAILY Qty: 90 0RF hydrocodone-acetaminophen 5-325 mg tablet 1 tab PO Q6H PRN (Reason: pain) Qty: 14 0RF ropinirole 0.5 mg tablet 0.5 mg PO BEDTIME pantoprazole 40 mg tablet,delayed release (DR/EC) 40 mg PO BID polyethylene glycol 3350 [Purelax] 17 gram/dose powder 17 g PO DAILY Qty: 850 0RF oxycodone 10 mg tablet 10 - 20 mg PO Q4H PRN (Reason: Pain, Moderate) Rx Instructions: TAKE 1 TO 2 TABLETS BY MOUTH EVERY 4 TO 6 HOURS NEEDED FOR PAIN max 6 PER day cefdinir 300 mg capsule 300 mg PO BID Qty: 14 0RF Discharge Orders: Discharge ED (Routine); Ordered 10/01/24 Ordered By: Vin Velez Referrals: Lynda Lopez MD [Primary Care Provider, [facility]] Discharge Diet: Advance as tolerated Discharge Activity: Resume usual activity Patient Instructions: Back Pain (ED) Print Language: Spanish Coding Level of Care Code ED Refuse Driver for Gemma Church
[2024-10-01 07:25] VITALS: BP 222/109; PULSE 71; O2SAT 98
[2024-10-01 07:47] VITALS: BP 200/114; PULSE 71; O2SAT 97
== END 2024-10-01 07:47 | disposition home or self-care (01) ==
PROVIDERS: Emergency Provider Emergency Medicine; PCP Family Medicine
DX: G89.4 Chronic pain syndrome (principal); Z87.891 Personal history of nicotine dependence; Z95.0 Presence of cardiac pacemaker; E78.5 Hyperlipidemia, unspecified; I10 Essential (primary) hypertension
CPT/HCPCS: 96372; 99284; J1100; J1885; J9999

== ENCOUNTER → 2024-10-09 10:47 | Outpatient (BNVA) | payer MEDICARE, SELFPAY | PROVIDERS: PCP Family Medicine; Visit Provider Family Medicine | DX: I10 Essential (primary) hypertension (principal); E03.9 Hypothyroidism, unspecified; N28.9 Disorder of kidney and ureter, unspecified; E87.6 Hypokalemia; D50.8 Other iron deficiency anemias; F33.1 Major depressive disorder, recurrent, moderate; I47.20 Ventricular tachycardia, unspecified; R41.89 Other symptoms and signs involving cognitive functions and awareness | CPT/HCPCS: 80053; 82607; 83540; 83735; 84439; 84443; 84481; 85025; 86592 ==

== ENCOUNTER 2025-03-14 05:19 | Inpatient (IN) | payer MEDICARE, MEDICAID, SELFPAY ==
--- OUTSIDE RECORDS SUMMARY | 2024-01-19 03:00 | XMS_ITS ---
Author Organization [facility] Address [address] [place] [address] Care Team Providers Care Suppository Molding Machine Operator Name Role Phone Kaylin Chávez Primary Care Provider Unava ilable Tito Cartagena Unavailable Migration, Provider Unavailable Unavailable REASON FOR VISIT EMR-Jignesh Encounters Encounter Location Date Provider Diagnosis Migrated_Facility 0 0 01/19/2024 Provider Migration Plan Of Treatment No Information Progress Notes * Ivan LARADOB:1945 (79 yo F)Acc No.[id number]:01/19/2024 Patient: Kal DEJESUSoll :1945 A ge:78 Y S ex:Female Address:[address] [place], [address] Subjective: * Chief Complaints: * E MR-Jignesh * * Date:
--- OUTSIDE RECORDS SUMMARY | 2024-01-20 03:00 | XMS_ITS ---
Author Organization [facility] Address [address] [place] [address] Care Team Providers Care Advanced Practice Psychiatric Nurse Name Role Phone Kaylin Chávez Primary Care Provider Unava ilTito Ho Unavailable Migration, Provider Unavailable Unavailable Allergies Allergen (clinical drug ingredient) Drug/Non Drug Allergy documented on EMR Reaction Allergy Type Onset Date Status Substance with sulfonamide structure and antibacterial mechanism of action (substance) Sulfa Antibiotics Unknown Drug Allergy 05/27/2003 Active REASON FOR VISIT EMR-Jignesh Encounters Encounter Location Date Provider Diagnosis Migrated_Facility 0 0 01/20/2024 Provider Migration Plan Of Treatment No Information Progress Notes * JANE IvanDOB:1945 (79 yo F)Acc No.[id number]:01/20/2024 Patient: Ivan DEJESUS :1945 A ge:78 Y S ex:Female Address:[address] [place], [address] Subjective: * Chief Complaints: * E MR-Jignesh * Allergies: S ulfa Antibiotics: Allergy - Onset Date 2003-05-27 * * Date:
--- OUTSIDE RECORDS SUMMARY | 2024-10-31 05:00 | XMS_ITS ---
Author Organization [facility] Address [address] [place] [address] Care Team Providers Care Photolithographic Stripper Name Role Phone Kaylin Chávez Primary Care Provider Tito Alberto REASON FOR VISIT residential visit at [place], [place] Encounters Encounter Location Date Provider Diagnosis [facility] [address] [place] [address] 10/31/2024 Tito Cartagena Assessments Encounter Date Diagnosis (ICD Code) Assessment Notes Treatment Notes Treatment Clinical Notes Section Notes 10/31/2024 Other Medications wer e reviewed. I will continue without changes. Nursing staff is to contact me with any symptoms arising. Orders signed and documented with nursing staff. Vitals taken and recorded at [facility]. Plan Of Treatment Treatment Notes Assessment Notes Other Medications were rev iewed. I will continue without changes. Nursing staff is to contact me with any symptoms arising. Orders signed and documented with nursing staff. Vitals taken and recorded at [facility]. Next Appt Details Follow Up: 4 Weeks, Reason: History and Physical Notes * HPI (History of Present Illness) Category Sub-Category Detail Notes Category Not es : The patient is seen in the shelter today for follow-up. Staff reports no new complaints. The review of systems and exam are unchanged from previous. Patient denies pain and is comfortable. Examination Category Sub-Category Detail Notes Category Not es General Examination GENERAL APPEARANCE: in no ac sandip distress. Vital signs as documented. NECK/THYROID: no JVD HEART: notable for regular rhythym, normal sounds and absence of murmurs, rubs or gallops. LUNGS: Lungs clear ABDOMEN: unremarkable, no org anomegaly , no masses, or abdominal aortic enlargement. SKIN: warm and dry, withou t overt rashes. Progress Notes * Ivan LARADOB:1945 (79 yo F)Acc No.[id number]:10/31/2024 Patient: Ivan Carrillo Provider: Francie Cartagena MD :1945 A ge:78 Y S ex:Female Date:10/31/2024 Address:[address] [place], [place] [id number] Pcp:NICOLE Srinivasan Subjective: * Chief Complaints: * N ursing home visit at [place], [place] * HPI: * :: The patient is seen in the shelter today for follow-up. Staff reports no new complaints. The review of systems and exam are unchanged from previous. Patient denies pain and is comfortable. Objective: * Examination: G eneral Examination: GENERAL APPEARANCE: i n no acute distress. Vital signs as documented.. NECK/THYROID: n o JVD. SKIN: w arm and dry, without overt rashes.. HEART: n otable for regular rhythym, normal sounds and absence of murmurs, rubs or gallops. LUNGS: L ungs clear. ABDOMEN: u nremarkable, no organomegaly , no masses, or abdominal aortic enlargement.. Plan: * Treatment: * Procedure Codes: 9 9309 SNF CARE SUBSEQ * Follow Up: 4 Weeks Billing Information: * Procedure Codes: 02339 SNF CARE SUBSEQ. * Electronic signature of Jose R Cartagena MD on 03/14/2025 at 05:30 AM FUR EXAMINER Sign off status: Pending * Provider: Francie Cartagena MD Date: 0 10/31/2024 Generated for Abby laguna/Mamie/Merlenesmitting on: 1 05/15/2024 05:30 AM FUR EXAMINER
--- OUTSIDE RECORDS SUMMARY | 2025-02-06 05:00 | XMS_ITS ---
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 Name Role Phone Kaylin Chávez Primary Care Provider Tito Alberto Unavailable Allergies Allergen (clinical drug ingredient) Drug/Non Drug Allergy documented on EMR Reaction Allergy Type Onset Date Status Substance with sulfonamide structure and antibacterial mechanism of action (substance) Sulfa Antibiotics Unknown Drug Allergy 05/27/2003 Active REASON FOR VISIT [facility], longterm visit at [place], [place] Medications Medication SIG (Take, Route, Frequency, Duration) Notes Start Date End Date Status Furosemide 20 MG Tablet 1 tablet Orally Once a day; Duration: 10 days 02/01/2023 Unknown Prolia 60 MG/ML Solution Prefilled Syringe as directed Subcutaneous once; Duration: 1 days 02/01/2023 Unknown Cephalexin 250 MG Capsule 1 capsule Orally Twice a day Unknown Symbicort 160-4.5 MCG/ACT Aerosol INHALE TWO PUFFS BY MOUTH TWICE DAILY; Duration: 30 Unknown Pregabalin 225 mg Capsule TAKE ONE CAPSULE BY MOUTH EVERY EVENING 1 to 3 hours BEFORE bedtime; Duration: 90 09/22/2022 Unknown Multi Vitamin - Tablet 1 tablet Orally O nce a day Unknown Breo Ellipta 100-25 MCG/INH Aerosol Powder Breath Activated 1 puff Inhalation Once a day Unknown Clopidogrel Bisulfate 75 MG Tablet 1 tablet Orally Once a day; Duration: 30 day(s) Unknown Tamsulosin HCl 0.4 MG Capsule Extended Release 24 Hour 1 capsule Orally Once a day; Duration: 30 day(s) Unknown B12 Fast Dissolve 5000 MCG Tablet Disintegrating as directed Orally Unknown Ventolin HFA 90 MCG/ACT Aerosol Solution 2 puffs as needed Inhalation 4 times daily Unknown Lisinopril 20 MG Tablet 1 tablet Orally twice daily; Duration: 30 day(s) Unknown Questran Light 4 GM/DOSE Powder 1 scoop in water Orally three times a day; Duration: 30 day(s) Unknown Nitrostat 0.4 MG Tablet Sublingual 1 tablet Sublingual may repeat every 5 mins max of 3 doses in 15 mins Unknown Potassium Chloride 20 MEQ Tablet Extended Release 1 tablet Orally twice a day Unknown ALPRAZolam 0.25 MG Tablet 1 tablet Orally daily prn anxiety; Duration: 30 days Unknown Lomotil 2.5-0.025 MG Tablet 1 tablet as needed Orally two times daily Unknown Montelukast Sodium 10 MG Tablet 1 tablet Orally Once a day; Duration: 30 day(s) Unknown Simvastatin 40 MG Tablet 1 tablet in the evening Orally Once a day Unknown Montelukast Sodium 10 MG Tablet 1 tablet Orally Once a day; Duration: 90 days 04/06/2022 Unknown Xtampza ER 18 mg Capsule ER 12 Hour Abuse-Deterrent TAKE ONE CAPSULE BY MOUTH with food EVERY TWELVE HOURS FOR 30 DAYS; Duration: 30 08/17/2023 Active Pantoprazole Sodium 40 MG Tablet Delayed Release TAKE 1 TABLET TWICE DAILY; Duration: 90 Active rOPINIRole HCl 0.5 MG Tablet TAKE 1 TABLET BY MOUTH TWICE DAILY; Duration: 90 Active Levothyroxine Sodium 75 MCG Tablet TAKE 1 TABLET BY MOUTH EVERY MORNING ON A EMPTY STOMACH ONCE DAILY; Duration: 90 Active Triamterene-HCTZ 37.5-25 MG Tablet 1/2 tab(s) po qd Oral; Duration: 30 Triamterene/H ydrochlorothi azide 37.5mg/25mg Tablet 1/2 tab(s) po qd #90 (Ninety) tablet(s) 09/29/2013 Unknown Lyrica 225 MG Capsule 1 capsule Orally twice a day; Duration: 30 days 06/21/2023 Active Ferrous Gluconate 324 (38 Fe) MG Tablet TAKE ONE TABLET BY MOUTH TWICE DAILY; Duration: 45 Active Atorvastatin Calcium 40 mg Tablet TAKE ONE TABLET BY MOUTH EVERY DAY; Duration: 90 Active Mirtazapine 30 MG Tablet TAKE 1 TABLET AT BEDTIME; Duration: 90 Active Famotidine 40 MG Tablet TAKE 1 TABLET BY MOUTH NEEDED TWICE DAILY; Duration: 30 Active busPIRone HCl 5 MG Tablet 1 tablet Orally Three times a day; Duration: 30 days 05/21/2019 Unknown oxyCODONE HCl 5 MG Tablet 1-2 tablet as needed Orally every 6 hrs; Duration: 30 days 01/15/2025 02/11/2025 Active Metoprolol Tartrate 50 MG Tablet TAKE 1 TABLET TWICE DAILY; Duration: 90 Unknown Requip 0.5 MG Tablet 1 tablet Orally twice a day; Duration: 90 days Active Zenpep [id number] UNIT Capsule Delayed Release Particles as directed Orally; Duration: 30 days Active Maalox 225-200 MG/5ML Suspension as directed Orally Unknown Nasal [place] 0.05 % Solution 2 sprays in each nostril as needed Nasally Twice a day Unknown Bisacodyl 5 MG Tablet Delayed Release 2 tablet as needed Orally Once a day; Duration: 30 day(s) Unknown Acidophilus - Tablet as directed Orally Unknown Imodium A-D 1 MG/5ML Liquid 10 ml as needed Orally Four times a day Unknown Silver sulfADIAZINE 1 % Cream 1 application Externally Once a day Unknown Fluticasone Propionate 50 MCG/DOSE Suspension 2 spray in each nostril Nasally Once a day; Duration: 30 day(s) Unknown Encounters Encounter Location Date Provider Diagnosis [facility] [address] [place] [address] 02/06/2025 Tito Cartagena Hypertension I10 ; Other spondylosis with radiculopathy, lumbar region M47.26 and Situational anxiety F41.8 Assessments Encounter Date Diagnosis (ICD Code) Assessment Notes Treatment Notes Treatment Clinical Notes Section Notes 02/06/2025 Hypertension (ICD-10 - I10) Medications were reviewed. I will continue without changes. Nursing staff is to contact me with any symptoms arising. Orders signed and documented with nursing staff. Vitals taken and recorded at [facility]. 02/06/2025 Other spondylosis with radiculopathy, lumbar region (ICD-10 - M47.26) 02/06/2025 Situational anxiety (ICD-10 - F41.8) 02/06/2025 Other Medications were reviewed. I will continue without changes. Nursing staff is to contact me with any symptoms arising. Orders signed and documented with nursing staff. Vitals taken and recorded at [facility]. Plan Of Treatment Treatment Notes Assessment Notes Hypertension Medications were rev iewed. I will continue without changes. Nursing staff is to contact me with any symptoms arising. Orders signed and documented with nursing staff. Vitals taken and recorded at [facility]. Other Medications were rev iewed. I will continue without changes. Nursing staff is to contact me with any symptoms arising. Orders signed and documented with nursing staff. Vitals taken and recorded at [facility]. Next Appt Details Follow Up: 4 Weeks, Reason: History and Physical Notes * HPI (History of Present Illness) Category Sub-Category Detail Notes Category Not es : The patient is seen in the group home today for follow-up. Staff reports no new [...] Notes * Ivan LARADOB:1945 (79 yo F)Acc No.[id number]:02/06/2025 Patient: Ivan Carrillo Provider: Francie Cartagena MD :1945 A ge:79 Y S ex:Female Date:02/06/2025 Address:[address] [place], [place] [id number] Pcp:NICOLE Srinivasan Subjective: * Chief Complaints: * N ursing Home [facility]ounds[facility]urs[facility] home [place] at [place], [place] * HPI: * :: The patient is seen in the group home today for follow-up. Staff reports no new complaints. The review of systems and exam are unchanged from previous. Patient denies pain and is comfortable. * Medical History: PREVENTIVE HEALTH MAINTENANCE Colonoscopy-was last done 03/09/15 with diverticulosis noted Occult Stool: 01/30/19 x3 positive cards Cologuard: Has never been done Endoscopy- Has never been done Nuclear stress test- Has never been done Exercise stress test- Has never been done Echocardiogram- done 03/03/19 angiogram done 11/2018 with normal results Carotid doppler- Has never been done CT chest- 04/25/17 large hiatal hernia, mild calcified thoracic aorta Chest xray: 10/03/18 large hiatal hernia, atherosclerotic cardiovascular changes PFTS- 06/08/17 Sleep Study: Has never been done Bone Density: done 07/09/17 Prolia Injection 11/2018 Mammogram- done 12/27/17 with normal results, [...] been done Microalbumin (urine): Has never been done Controlled medication consent: Date Drug screen: Date GYNECOLOGICAL HISTORY Microalbumin, Urine: 05/31/18 Last menses- control- PAST MEDICAL HISTORY Hyperlipidemia Asthma Gastroesophageal Reflux Disease Hiatal Hernia Osteoarthritis: Right SI Joint Injection 01/16/18 Osteoporosis Hypothyroidism Allergies Abnormal cardiovascular stress test Atherosclerotic heart disease Covid Chronic back pain Diarrhea Fibromyalgia Greater trochanteric bursitis Hyperlipidemia Hypertension 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 NSTEMI Heart attack Plelonephritis UTI recurrent Restless leg syndrome R knee DJD Urgency incontinence Urinary incontinence Urinary retention Yeast vaginitis Medical History Verified * Medications: T akingoxyCODONE HCl 5 MG Tablet 1-2 tablet as needed Orally every 6 hrs , stop date 02/11/2025Requip 0.5 MG Tablet 1 tablet Orally twice a day Zenpep [id number] UNIT Capsule Delayed Release Particles as directed Orally Mirtazapine 30 MG Tablet TAKE 1 TABLET AT BEDTIME Famotidine 40 MG Tablet TAKE 1 TABLET BY MOUTH NEEDED TWICE DAILY Lyrica 225 MG Capsule 1 capsule Orally twice a day Ferrous Gluconate 324 (38 Fe) MG Tablet TAKE ONE TABLET BY MOUTH TWICE DAILY Atorvastatin Calcium 40 mg Tablet TAKE ONE TABLET BY MOUTH EVERY DAY Xtampza ER 18 mg Capsule ER 12 Hour Abuse-Deterrent TAKE ONE CAPSULE BY MOUTH with food EVERY TWELVE HOURS FOR 30 DAYS Pantoprazole Sodium 40 MG Tablet Delayed Release TAKE 1 TABLET TWICE DAILY rOPINIRole HCl 0.5 MG Tablet TAKE 1 TABLET BY MOUTH TWICE DAILY Levothyroxine Sodium 75 MCG Tablet TAKE 1 TABLET BY MOUTH EVERY MORNING ON A EMPTY STOMACH ONCE DAILY Taking oxyCODONE HCl 5 MG Tablet 1-2 tablet as needed Orally every 6 hrs , stop date 02/11/2025Taking Requip 0.5 MG Tablet 1 tablet Orally twice a day Taking Zenpep [id number] UNIT Capsule Delayed Release Particles as directed Orally Taking Mirtazapine 30 MG Tablet TAKE 1 TABLET AT BEDTIME Taking Famotidine 40 MG Tablet TAKE 1 TABLET BY MOUTH NEEDED TWICE DAILY Taking Lyrica 225 MG Capsule 1 capsule Orally twice a day Taking Ferrous Gluconate 324 (38 Fe) MG Tablet TAKE ONE TABLET BY MOUTH TWICE DAILY Taking Atorvastatin Calcium 40 mg Tablet TAKE ONE TABLET BY MOUTH EVERY DAY Taking Xtampza ER 18 mg Capsule ER 12 Hour Abuse-Deterrent TAKE ONE CAPSULE BY MOUTH with food EVERY TWELVE HOURS FOR 30 DAYS Taking Pantoprazole Sodium 40 MG Tablet Delayed Release TAKE 1 TABLET TWICE DAILY Taking rOPINIRole HCl 0.5 MG Tablet TAKE 1 TABLET BY MOUTH TWICE DAILY Taking Levothyroxine Sodium 75 MCG Tablet TAKE 1 TABLET BY MOUTH EVERY MORNING ON A EMPTY STOMACH ONCE DAILY UnknownTriamterene- HCTZ 37.5-25 MG Tablet 1/2 tab(s) po qd Oral , Notes to Pharmacist: Triamterene/Hydrochlorothiazide 37.5mg/25mg Tablet 1 /2 tab(s) po qd # 90 (Ninety) tablet(s)Montelukast Sodium 10 MG Tablet 1 tablet Orally Once a day Simvastatin 40 MG Tablet 1 tablet in the evening Orally Once a day Montelukast Sodium 10 MG Tablet 1 tablet Orally Once a day ALPRAZolam 0.25 MG Tablet 1 tablet Orally daily prn anxiety Lomotil 2.5-0.025 MG Tablet 1 tablet as needed Orally two times daily Potassium Chloride 20 MEQ Tablet Extended Release 1 tablet Orally twice a day Ventolin HFA 90 MCG/ACT Aerosol Solution 2 puffs as needed Inhalation 4 times daily Lisinopril 20 MG Tablet 1 tablet Orally twice daily Questran Light 4 GM/DOSE Powder 1 scoop in water Orally three times a day Nitrostat 0.4 MG Tablet Sublingual 1 tablet Sublingual may repeat every 5 mins max of 3 doses in 15 mins Breo Ellipta 100-25 MCG/INH Aerosol Powder Breath Activated 1 puff Inhalation Once a day Clopidogrel Bisulfate 75 MG Tablet 1 tablet Orally Once a day Tamsulosin HCl 0.4 MG Capsule Extended Release 24 Hour 1 capsule Orally Once a day B12 Fast Dissolve 5000 MCG Tablet Disintegrating as directed Orally Multi Vitamin - Tablet 1 tablet Orally Once a day Symbicort 160-4.5 MCG/ACT Aerosol INHALE TWO PUFFS BY MOUTH TWICE DAILY Pregabalin 225 mg Capsule TAKE ONE CAPSULE BY MOUTH EVERY EVENING 1 to 3 hours BEFORE bedtime Furosemide 20 MG Tablet 1 tablet Orally Once a day Prolia 60 MG/ML Solution Prefilled Syringe as directed Subcutaneous once Cephalexin 250 MG Capsule 1 capsule Orally Twice a day Silver sulfADIAZINE 1 % Cream 1 application Externally Once a day Fluticasone Propionate 50 MCG/DOSE Suspension 2 spray in each nostril Nasally Once a day Bisacodyl 5 MG Tablet Delayed Release 2 tablet as needed Orally Once a day Acidophilus - Tablet as directed Orally Imodium A-D 1 MG/5ML Liquid 10 ml as needed Orally Four times a day Maalox 225-200 MG/5ML Suspension as directed Orally Nasal [place] 0.05 % Solution 2 sprays in each nostril as needed Nasally Twice a day Metoprolol Tartrate 50 MG Tablet TAKE 1 TABLET TWICE DAILY busPIRone HCl 5 MG Tablet 1 tablet Orally Three times a day Medication List reviewed and reconciled with the patientUnknown Triamterene-HCTZ 37.5-25 MG Tablet 1/2 tab(s) po qd Oral , Notes to Pharmacist: Triamterene/Hydrochlorothiazide 37.5mg/25mg Tablet 1 /2 tab(s) po qd # 90 (Ninety) tablet(s)Unknown Montelukast Sodium 10 MG Tablet 1 tablet Orally Once a day Unknown Simvastatin 40 MG Tablet 1 tablet in the evening Orally Once a day Unknown Montelukast Sodium 10 MG Tablet 1 tablet Orally Once a day Unknown ALPRAZolam 0.25 MG Tablet 1 tablet Orally daily prn anxiety Unknown Lomotil 2.5-0.025 MG Tablet 1 tablet as needed Orally two times daily Unknown Potassium Chloride 20 MEQ Tablet Extended Release 1 tablet Orally twice a day Unknown Ventolin HFA 90 MCG/ACT Aerosol Solution 2 puffs as needed Inhalation 4 times daily Unknown Lisinopril 20 MG Tablet 1 tablet Orally twice daily Unknown Questran Light 4 GM/DOSE Powder 1 scoop in water Orally three times a day Unknown Nitrostat 0.4 MG Tablet Sublingual 1 tablet Sublingual may repeat every 5 mins max of 3 doses in 15 mins Unknown Breo Ellipta 100-25 MCG/INH Aerosol Powder Breath Activated 1 puff Inhalation Once a day Unknown Clopidogrel Bisulfate 75 MG Tablet 1 tablet Orally Once a day Unknown Tamsulosin HCl 0.4 MG Capsule Extended Release 24 Hour 1 capsule Orally Once a day Unknown B12 Fast Dissolve 5000 MCG Tablet Disintegrating as directed Orally Unknown Multi Vitamin - Tablet 1 tablet Orally Once a day Unknown Symbicort 160-4.5 MCG/ACT Aerosol INHALE TWO PUFFS BY MOUTH TWICE DAILY Unknown Pregabalin 225 mg Capsule TAKE ONE CAPSULE BY MOUTH EVERY EVENING 1 to 3 hours BEFORE bedtime Unknown Furosemide 20 MG Tablet 1 tablet Orally Once a day Unknown Prolia 60 MG/ML Solution Prefilled Syringe as directed Subcutaneous once Unknown Cephalexin 250 MG Capsule 1 capsule Orally Twice a day Unknown Silver sulfADIAZINE 1 % Cream 1 application Externally Once a day Unknown Fluticasone Propionate 50 MCG/DOSE Suspension 2 spray in each nostril Nasally Once a day Unknown Bisacodyl 5 MG Tablet Delayed Release 2 tablet as needed Orally Once a day Unknown Acidophilus - Tablet as directed Orally Unknown Imodium A-D 1 MG/5ML Liquid 10 ml as needed Orally Four times a day Unknown Maalox 225-200 MG/5ML Suspension as directed Orally Unknown Nasal [place] 0.05 % Solution 2 sprays in each nostril as needed Nasally Twice a day Unknown Metoprolol Tartrate 50 MG Tablet TAKE 1 TABLET TWICE DAILY Unknown busPIRone HCl 5 MG Tablet 1 tablet Orally Three times a day Medication List reviewed and reconciled with the patient * Allergies: S ulfa Antibiotics: Allergy - Onset Date [id number] Verified. Objective: * Examination: G eneral Examination: GENERAL APPEARANCE: i n no acute distress. Vital signs as documented.. NECK/THYROID: n o JVD. SKIN: w arm and dry, without overt rashes.. HEART: n otable for regular rhythym, normal sounds and absence of murmurs, rubs or gallops. LUNGS: L ungs clear. ABDOMEN: u nremarkable, no organomegaly , no masses, or abdominal aortic enlargement.. Assessment: * Assessment: 1. H ypertension - I10 (Primary) 2 . O ther spondylosis with radiculopathy, lumbar region - M47.26 3 . S ituational anxiety - F41.8 Plan: * Treatment: 2. O thers Notes: Medications were r eviewed. I will continue without changes. Nursing staff is to contact me with any symptoms arising. Orders signed and documented with nursing staff. Vitals taken and recorded at [facility]. * Follow Up: 4 Weeks Billing Information: * Visit Code: [id number] Nursing Fac Subseq. 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
--- OUTSIDE RECORDS SUMMARY | 2025-03-06 05:00 | XMS_ITS ---
Author Organization [facility] Address [address] [place] [address] Care Team Providers Care Abnormal Psychology Teacher Name Role Phone Kaylin Chávez Primary Care Provider Tito Alberto Unavailable Allergies Allergen (clinical drug ingredient) Drug/Non Drug Allergy documented on EMR Reaction Allergy Type Onset Date Status Substance with sulfonamide structure and antibacterial mechanism of action (substance) Sulfa Antibiotics Unknown Drug Allergy 05/27/2003 Active REASON FOR VISIT halfway visit at [place], [place] Medications Medication SIG (Take, Route, Frequency, Duration) Notes Start Date End Date Status Lisinopril 20 MG Tablet 1 tablet Orally twice daily; Duration: 30 day(s) Unknown Lomotil 2.5-0.025 MG Tablet 1 tablet as needed Orally two times daily Unknown ALPRAZolam 0.25 MG Tablet 1 tablet Orally daily prn anxiety; Duration: 30 days Unknown Ventolin HFA 90 MCG/ACT Aerosol Solution 2 puffs as needed Inhalation 4 times daily Unknown Potassium Chloride 20 MEQ Tablet Extended Release 1 tablet Orally twice a day Unknown Levothyroxine Sodium 75 MCG Tablet TAKE 1 TABLET BY MOUTH EVERY MORNING ON A EMPTY STOMACH ONCE DAILY; Duration: 90 Active Montelukast Sodium 10 MG Tablet 1 tablet Orally Once a day; Duration: 30 day(s) Unknown Triamterene-HCTZ 37.5-25 MG Tablet 1/2 tab(s) po qd Oral; Duration: 30 Triamterene/H ydrochlorothi azide 37.5mg/25mg Tablet 1/2 tab(s) po qd #90 (Ninety) tablet(s) 09/29/2013 Unknown Montelukast Sodium 10 MG Tablet 1 tablet Orally Once a day; Duration: 90 days 04/06/2022 Unknown Simvastatin 40 MG Tablet 1 tablet in the evening Orally Once a day Unknown rOPINIRole HCl 0.5 MG Tablet TAKE 1 TABLET BY MOUTH TWICE DAILY; Duration: 90 Active Pantoprazole Sodium 40 MG Tablet Delayed Release TAKE 1 TABLET TWICE DAILY; Duration: 90 Active Ferrous Gluconate 324 (38 Fe) MG Tablet TAKE ONE TABLET BY MOUTH TWICE DAILY; Duration: 45 Active Xtampza ER 18 mg Capsule ER 12 Hour Abuse-Deterrent TAKE ONE CAPSULE BY MOUTH with food EVERY TWELVE HOURS FOR 30 DAYS; Duration: 30 08/17/2023 Active Atorvastatin Calcium 40 mg Tablet TAKE ONE TABLET BY MOUTH EVERY DAY; Duration: 90 Active Zenpep [id number] UNIT Capsule Delayed Release Particles as directed Orally; Duration: 30 days Active Requip 0.5 MG Tablet 1 tablet Orally twice a day; Duration: 90 days Active Famotidine 40 MG Tablet TAKE 1 TABLET BY MOUTH NEEDED TWICE DAILY; Duration: 30 Active Mirtazapine 30 MG Tablet TAKE 1 TABLET AT BEDTIME; Duration: 90 Active Lyrica 225 MG Capsule 1 capsule Orally twice a day; Duration: 30 days 06/21/2023 Active Nasal Norman 0.05 % Solution 2 sprays in each nostril as needed Nasally Twice a day Unknown oxyCODONE HCl 5 MG Tablet 1-2 tablet as needed Orally every 6 hrs; Duration: 30 days 02/17/2025 03/18/2025 Active Metoprolol Tartrate 50 MG Tablet TAKE 1 TABLET TWICE DAILY; Duration: 90 Unknown busPIRone HCl 5 MG Tablet 1 tablet Orally Three times a day; Duration: 30 days 05/21/2019 Unknown Maalox 225-200 MG/5ML Suspension as directed Orally Unknown Fluticasone Propionate 50 MCG/DOSE Suspension 2 spray in each nostril Nasally Once a day; Duration: 30 day(s) Unknown Bisacodyl 5 MG Tablet Delayed Release 2 tablet as needed Orally Once a day; Duration: 30 day(s) Unknown Acidophilus - Tablet as directed Orally Unknown Imodium A-D 1 MG/5ML Liquid 10 ml as needed Orally Four times a day Unknown Silver sulfADIAZINE 1 % Cream 1 application Externally Once a day Unknown Pregabalin 225 mg Capsule TAKE ONE CAPSULE BY MOUTH EVERY EVENING 1 to 3 hours BEFORE bedtime; Duration: 90 09/22/2022 Unknown Furosemide 20 MG Tablet 1 tablet Orally Once a day; Duration: 10 days 02/01/2023 Unknown Prolia 60 MG/ML Solution Prefilled Syringe as directed Subcutaneous once; Duration: 1 days 02/01/2023 Unknown Cephalexin 250 MG Capsule 1 capsule Orally Twice a day Unknown Symbicort 160-4.5 MCG/ACT Aerosol INHALE TWO PUFFS BY MOUTH TWICE DAILY; Duration: 30 Unknown Clopidogrel Bisulfate 75 MG Tablet 1 tablet Orally Once a day; Duration: 30 day(s) Unknown Breo Ellipta 100-25 MCG/INH Aerosol Powder Breath Activated 1 puff Inhalation Once a day Unknown Tamsulosin HCl 0.4 MG Capsule Extended Release 24 Hour 1 capsule Orally Once a day; Duration: 30 day(s) Unknown B12 Fast Dissolve 5000 MCG Tablet Disintegrating as directed Orally Unknown Multi Vitamin - Tablet 1 tablet Orally O nce a day Unknown Nitrostat 0.4 MG Tablet Sublingual 1 tablet Sublingual may repeat every 5 mins max of 3 doses in 15 mins Unknown Questran Light 4 GM/DOSE Powder 1 scoop in water Orally three times a day; Duration: 30 day(s) Unknown Encounters Encounter Location Date Provider Diagnosis Formerly [facility] [address] [place] [address] 03/06/2025 Tito Cartagena Hypertension I10 ; Other spondylosis with radiculopathy, lumbar region M47.26 and Situational anxiety F41.8 Assessments Encounter Date Diagnosis (ICD Code) Assessment Notes Treatment Notes Treatment Clinical Notes Section Notes 03/06/2025 Hypertension (ICD-10 - I10) Medications were reviewed. I will continue without changes. Nursing staff is to contact me with any symptoms arising. Orders signed and documented with nursing staff. Vitals taken and recorded at [facility]. 03/06/2025 Other spondylosis with radiculopathy, lumbar region (ICD-10 - M47.26) 03/06/2025 Situational anxiety (ICD-10 - F41.8) 03/06/2025 Other Medications were reviewed. I will continue [...] : The patient is seen in the fpc today for follow-up. Staff reports no new complaints. The review of systems and exam are unchanged from previous. Patient denies pain and is comfortable. Examination Category Sub-Category Detail Notes Category Not es General Examination GENERAL APPEARANCE: in no ac [place] distress. Vital signs as documented. NECK/THYROID: no JVD HEART: notable for regular rhythym, normal sounds and absence of murmurs, rubs or gallops. LUNGS: Lungs clear ABDOMEN: unremarkable, no org anomegaly , no masses, or abdominal aortic enlargement. SKIN: warm and dry, withou t overt rashes. Progress Notes * Ivan LARADOB:1945 (79 yo F)Acc No.[id number]:03/06/2025 Patient: Ivan Carrillo Provider: Francie Cartagena MD :1945 A ge:79 Y S ex:Female Date:03/06/2025 Address:[address] [place], [place] [id number] Pcp:NICOLE Srinivasan Subjective: * Chief Complaints: * N ursing home visit at [place], [place] * HPI: * :: The patient is seen in the fpc today for follow-up. 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 use of opiate analgesic NSTEMI Heart attack Plelonephritis UTI recurrent Restless leg syndrome R knee DJD Urgency incontinence Urinary incontinence Urinary retention Yeast vaginitis Medical History Verified * Medications: T akingoxyCODONE HCl 5 MG Tablet 1-2 tablet as needed Orally every 6 hrs , stop date 03/18/2025Requip 0.5 MG Tablet 1 tablet Orally twice a day Zenpep [id number] UNIT Capsule Delayed Release Particles as directed [...] Orally every 6 hrs , stop date 03/18/2025Taking Requip 0.5 MG Tablet 1 tablet Orally twice a day Taking Zenpep 86164-413653 UNIT Capsule Delayed Release Particles as directed [...] 225-200 MG/5ML Suspension as directed Orally Nasal Norman 0.05 % Solution 2 sprays in each [...] MG/5ML Suspension as directed Orally Unknown Nasal Norman 0.05 % Solution 2 sprays in each nostril as needed Nasally Twice a day Unknown Metoprolol Tartrate 50 MG Tablet TAKE 1 TABLET TWICE DAILY Unknown busPIRone HCl 5 MG Tablet 1 tablet Orally Three times a day Medication List reviewed and reconciled with the patient * Allergies: S ulfa Antibiotics: Allergy - Onset Date [id number] Verified. Objective: * Examination: G eneral Examination: [...] recorded at [facility]. * Procedure Codes: 9 9309 SNF CARE SUBSEQ * Follow Up: 4 Weeks Billing Information: * Procedure Codes: 87598 SNF CARE SUBSEQ. * Electronic signature of Jose R Cartagena MD on 03/14/2025 at 05:28 AM MACHINE ZIPPER TRIMMER Sign off status: Pending * Provider: Francie Cartagena MD Date: 05/07/2024 Generated for Abby laguna/Mamie/Toyaitting on: 05/15/2024 05:28 AM MACHINE ZIPPER TRIMMER
[2025-03-14] VITALS (46 sets, daily range): BP systolic 119–205; BP diastolic 53–95; PULSE 70–101; RESP 14–36; TEMP 36.9–40; O2SAT 80–98; BMI 25.2
--- NOTE | 2025-03-14 05:25 | XRR_ITS ---
PROCEDURE INFORMATION: Exam: XR Chest Exam date and time: 03/14/2025 5:29 AM Age: 79 years old Clinical indication: Cough and shortness of breath; Prior surgery; Surgery date: 6+ months; Surgery type: Pacer; EMS arrival from [facility] for cough with SOB and hypoxia. TECHNIQUE: Imaging protocol: Radiologic exam of the chest. Views: 1 view. COMPARISON: CR XR chest 1V portable [id number] 05/27/2024 8:16 PM FINDINGS: Tubes, catheters and devices: Stable left subclavian AICD. Lungs: Low lung volumes with bronchovascular crowding. Patchy bibasilar opacities, lcal-januebb-xhnb-right. Pleural spaces: Possible trace bilateral pleural effusions Heart/Mediastinum: Stable cardiomediastinal silhouette. Redemonstrated kahcuomk-lg-fqfmz hiatal hernia. Bones/joints: Unremarkable. XR/XR chest 1V portable [id number] IMPRESSION: 1. Low lung volumes with bibasilar opacities. Infiltrate not excluded in the correct clinical setting, particularly in the left lung base. 2. Possible trace bilateral pleural effusions.
--- NOTE | 2025-03-14 05:25 | ECG_ITS ---
[employer] Test Date: 2025-03-14 Pat Name: Ivan Peguero Department: Room: Gender: Female Market Intelligence Consultant: : 1945 Requested By: Jeff Davis Order Number: [id number] Soledad MD: ARNOLD ALBERTS Measurements Intervals [place] Rate: 93 P: 12 CA: 211 QRS: -55 QRSD: 137 T: 65 QT: 332 QTc: 415 Interpretive Statements ELECTRONIC ATRIAL PACEMAKER LEFT AXIS DEVIATION [QRS AXIS < -30] RIGHT BUNDLE BRANCH BLOCK [120+ ms QRS DURATION, UPRIGHT V1, 40+ ms S IN I/aVL/V4/V5/V6] VOLTAGE CRITERIA FOR LVH [MEETS CRITERIA IN ONE OF: R(aVL), S(V1), R(V5), R(V5/V6)+S(V1)] Compared to ECG 09/19/2024 18:07:12 Left-axis deviation now present Left anterior fascicular block no longer present Electronically Signed On 03-17-2025 12:07:26 REVERSING MILL ROLLER by ARNOLD ALBERTS [email or web address] [id number]
--- OUTSIDE RECORDS SUMMARY | 2025-03-14 05:28 | XMS_ITS | Encounter Summary ---
Author Organization [employer] [facility] Address [address] [place] [address] Care Team Providers Care Promotions Officer Name Role Phone Unavailable Primary Care Provider Unavailabl e Encounter Details Date Type Department Care Team (Latest Contact Info) Description 12/25/2002 Outpatient Historical [facility] Matteo In[place], [place] [address] [place] [phone] Diverticulosis of colon (Primary Dx); HYPERTENSION NOS Social History Tobacco Use Types Packs/Day Years Used Date Smoking Tobacco: Never Assessed Comments Unknown Sex and Gender Information Value Date Recorded Sex Assigned at Not on file Legal Sex Female 4: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
--- OUTSIDE RECORDS SUMMARY | 2025-03-14 05:28 | XMS_ITS | Encounter Summary ---
Author Organization [facility] Address [address] [place] [address] Care Team Providers Care Transportation Design Engineer Name Role Phone Unavailable Primary Care Provider Unavailabl e Encounter Details Date Type Department Care Team (Late st Contact Info) Description 04/25/2015 Lab Requisition [facility] Laboratory Services [address] [place] [address] Magdi Crawford MD [address] [place] [address] Social History Tobacco Use Types Packs/Day Years Used Date Smoking Tobacco: Never Assessed Comments Unknown Sex and Gender Information Value Date Recorded Sex Assigned at Not on file Legal Sex Female 4:17 AM BUFFER AUTOMATIC Gender Identity Not on file Sexual Orientation Not on file documented as of this encounter Plan of Treatment Not on file documented as of this encounter Procedures Procedure Name Priority Date/Time Associated Diagnosis Comments VANCOMYCIN LEVEL TROUGH Routine 04/25/2015 2:20 PM BUFFER AUTOMATIC documented in this encounter Results * (ABNORMAL) VANCOMYCIN LEVEL TROUGH (04/25/2015 2:20 PM BUFFER AUTOMATIC) VANCOMYCIN, TROUGH 4.5(LL) 10.0 - 20.0 ug/mL 04/25/2015 3:14 PM BUFFER AUTOMATIC [facility] Comment:Critical value. Resu lts called to jose niño by CARA SCHMITT at 3:14 PM on 04/25/2015 and read back verified. Blood Collection / Unknown 04/25/2015 2:20 PM BUFFER AUTOMATIC 04/25/2015 2:40 PM BUFFER AUTOMATIC us Magdi Crawford MD CHEMISTRY ORDERABLES Final Result Performing Organization Address City/State/[facility] Co de Phone Number [facility]# [id number] [address] [place] [address] documented in this encounter Visit Diagnoses Not on filedocumented in this encounter
--- OUTSIDE RECORDS SUMMARY | 2025-03-14 05:28 | XMS_ITS | Encounter Summary ---
Author Organization [facility] Address [address] [place] [address] Care Team Providers Care Supervisor Records Change Name Role Phone Unavailable Primary Care Provider Unavailabl e Encounter Details Date Type Department Care Team (Latest Contact Info) Description 02/03/2002 Outpatient Historical [facility] [phone] [place] [address] Pankaj Jarrett MD NO ADDRESS ON FILE PRECORDIAL PAIN (Primary Dx) Social History Tobacco Use Types Packs/Day Years Used Date Smoking Tobacco: Never Assessed Comments Unknown Sex and Gender Information Value Date Recorded Sex Assigned at Not on file Legal Sex Female 4:17 AM PONDMAN Gender Identity Not on file Sexual Orientation Not on file documented as of this encounter Plan of Treatment Not on file documented as of this encounter Visit Diagnoses Diagnosis Precordial pain- Primary documented in this encounter
--- OUTSIDE RECORDS SUMMARY | 2025-03-14 05:28 | XMS_ITS | Encounter Summary ---
Author Organization [employer] [facility] Address [address] [place] [address] Care Team Providers Care Anvil Seating Press Operator Name Role Phone Unavailable Primary Care Provider Unavailabl e Encounter Details Date Type Department Care Team (Late st Contact Info) Description 02/26/2002 Outpatient Historical [facility] Matteo Inman, Gurwinder Mora MD [address] [place] [address] Social History Tobacco Use Types Packs/Day Years Used Date Smoking Tobacco: Never Assessed Comments Unknown Sex and Gender Information Value Date Recorded Sex Assigned at Not on file Legal Sex Female 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
--- OUTSIDE RECORDS SUMMARY | 2025-03-14 05:28 | XMS_ITS | Encounter Summary ---
Author Organization [facility] Address [address] [place] [address] Care Team Providers Care Survey Worker Name Role Phone Unavailable Primary Care Provider Unavailabl e Encounter Details Date Type Department Care Team (Late st Contact Info) Description 05/17/2015 Lab Requisition [facility] Laboratory Services [address] [place] [address] Magdi Crawford MD [address] [place] [address] Social History Tobacco Use Types Packs/Day Years Used Date Smoking Tobacco: Never Assessed Comments Unknown Sex and Gender Information Value Date Recorded Sex Assigned at Not on file Legal Sex Female 4:17 AM CHEMISTRY RESEARCH ASSISTANT Gender Identity Not on file Sexual Orientation Not on file documented as of this encounter Plan of Treatment Not on file documented as of this encounter Procedures Procedure Name Priority Date/Time Associated Diagnosis Comments CBC WITH DIFFERENTIAL Routine 05/17/2015 3:30 AM CHEMISTRY RESEARCH ASSISTANT TRIGLYCERIDE Routine 05/17/2015 3:30 AM CHEMISTRY RESEARCH ASSISTANT PREALBUMIN Routine 05/17/2015 3:30 AM CHEMISTRY RESEARCH ASSISTANT LIPID PANEL Routine 05/17/2015 3:30 AM CHEMISTRY RESEARCH ASSISTANT COMPREHENSIVE METABOLIC PANEL Routine 05/17/2015 3:30 AM CHEMISTRY RESEARCH ASSISTANT documented in this encounter Results * (ABNORMAL) TRIGLYCERIDE (05/17/2015 3:30 AM CHEMISTRY RESEARCH ASSISTANT) TRIGLYCERIDE 238(H) <150 mg/dL 05/17/2015 6:24 AM [facility] Blood Collection / Unknown 05/17/2015 3:30 AM CHEMISTRY RESEARCH ASSISTANT 05/17/2015 5:20 AM CHEMISTRY RESEARCH ASSISTANT Narrative [facility] - 05/17/2015 6:24 AM CHEMISTRY RESEARCH ASSISTANT TRIGLYCERIDES mg/dL Normal < 150 Borderline High 150 - 199 High 200 - 499 Very High >= 500 Based on AHA/NCEP Guidelines. Magdi Crawford MD CHEMISTRY ORDERABLES Final Result Performing Organization Address City/[facility]/ZIP Co de Phone Number [facility] CLIA# [id number] [address] [place] [address] * PREALBUMIN (05/17/2015 3:30 AM CHEMISTRY RESEARCH ASSISTANT) PREALBUMIN 33 20 - 40 mg/dL 05/17/2015 6:24 AM [facility] Blood Collection / Unknown 05/17/2015 3:30 AM CHEMISTRY RESEARCH ASSISTANT 05/17/2015 5:20 AM CHEMISTRY RESEARCH ASSISTANT Magdi Crawford MD CHEMISTRY ORDERABLES Final Result Performing Organization Address City/[facility] Co de Phone Number [facility] CLIA# [id number] [address] [place], [place] [address] * (ABNORMAL) CBC WITH DIFFERENTIAL (05/17/2015 3:30 AM CHEMISTRY RESEARCH ASSISTANT) WBC 13.2(H) 4.8 - 10.8 K/uL 05/17/2015 5:51 AM [facility] RBC 3.44(L) 4.20 - 5.40 M/uL 05/17/2015 5:51 AM [facility] HEMOGLOBIN 9.1(L) 12.0 - 16.0 g/dL 05/17/2015 5:51 AM [facility] HEMATOCRIT 30.5(L) 36.0 - 46.0 % 05/17/2015 5:51 AM [facility] MCV 88.7 84.0 - 103.0 fL 05/17/2015 5:51 AM [facility] MCH 26.5(L) 27.0 - 34.0 pg 05/17/2015 5:51 AM [facility] MCHC 29.8(L) 30.0 - 35.0 g/dL 05/17/2015 5:51 AM [facility] RDW 17.6(H) 11.0 - 14.5 % 05/17/2015 5:51 AM [facility] RDW-STDEV 55.2(H) 37.0 - 54.0 fL 05/17/2015 5:51 AM [facility] PLATELETS 464(H) 140 - 440 K/uL 05/17/2015 5:51 AM [facility] MPV 9.9 8.9 - 12.8 fL 05/17/2015 5:51 AM [facility] NEUTROPHILS 58 42 - 75 % 05/17/2015 5:51 AM [facility] LYMPHOCYTES 31 24 - 44 % 05/17/2015 5:51 AM [facility] MONOCYTES 9 2 - 10 % 05/17/2015 5:51 AM [facility] EOSINOPHILS 2 0 - 7 % 05/17/2015 5:51 AM [facility] BASOPHILS 0 0 - 1 % 05/17/2015 5:51 AM [facility] NEUTROPHIL ABSOLUTE 7.58 2.00 - 8.00 K/uL 05/17/2015 5:51 AM [facility] LYMPHOCYTE ABSOLUTE 4.02(H) 1.20 - 4.00 K/uL 05/17/2015 5:51 AM [facility] MONOCYTE ABSOLUTE 1.19(H) 0.10 - 0.60 K/uL 05/17/2015 5:51 AM [facility] EOSINOPHIL ABSOLUTE 0.23 0.00 - 0.70 K/uL 05/17/2015 5:51 AM [facility] BASOPHILS ABSOLUTE 0.03 0.00 - 0.20 K/uL 05/17/2015 5:51 AM [facility] IMMATURE GRANULOCYTES 1 0 - 2 % 05/17/2015 5:51 AM [facility] IMMATURE GRANULOCYTES ABSOLUTE 0.14(H) 0.00 - 0.10 K/uL 05/17/2015 5:51 AM [facility] Blood Collection / Unknown 05/17/2015 3:30 AM CHEMISTRY RESEARCH ASSISTANT 05/17/2015 5:20 AM CHEMISTRY RESEARCH ASSISTANT us Magdi Crawford MD HEMATOLOGY ORDERABLES Final Result [facility] CLIA# [id number] [facility] [place] [address] * (ABNORMAL) LIPID PANEL (05/17/2015 3:30 AM CHEMISTRY RESEARCH ASSISTANT) CHOLESTEROL 139 <200 mg/dL 05/17/2015 6:24 AM [facility] TRIGLYCERIDE 238(H) <150 mg/dL 05/17/2015 6:24 AM [facility] HDL 26(L) 40 - 59 mg/dL 05/17/2015 6:24 AM [facility] LDL CALCULATED 65 <100 mg/dL 05/17/2015 6:24 AM [facility] NON-HDL CHOLESTEROL 113 <130 mg/dL 05/17/2015 6:24 AM [facility] Blood Collection / Unknown 05/17/2015 3:30 AM CHEMISTRY RESEARCH ASSISTANT 05/17/2015 5:20 AM CHEMISTRY RESEARCH ASSISTANT Narrative [facility] - 05/17/2015 6:24 AM CHEMISTRY RESEARCH ASSISTANT TOTAL CHOLESTEROL mg/dL Desirable <200 Borderline high [...] CHEMISTRY ORDERABLES Final Result [facility] CLIA# [id number] [address] [place] [address] * (ABNORMAL) COMPREHENSIVE METABOLIC PANEL (05/17/2015 3:30 AM [facility]) SODIUM 138 136 - 145 mmol/L 05/17/2015 6:24 AM [facility] POTASSIUM 4.4 3.5 - 5.1 mmol/L 05/17/2015 6:24 AM [facility] CHLORIDE 107 98 - 107 mmol/L 05/17/2015 6:24 AM [facility] CO2 22 21 - 32 mmol/L 05/17/2015 6:24 AM [facility] CALCIUM 8.1(L) 8.4 - 10.1 mg/dL 05/17/2015 6:24 AM [facility] BUN 18(H) 7 - 17 mg/dL 05/17/2015 6:24 AM [facility] CREATININE 0.54(L) 0.55 - 1.02 mg/dL 05/17/2015 6:24 AM [facility] GLUCOSE 76 74 - 106 mg/dL 05/17/2015 6:24 AM [facility] TOTAL PROTEIN 6.3(L) 6.4 - 8.2 g/dL 05/17/2015 6:24 AM [facility] ALBUMIN 2.4(L) 3.4 - 5.0 g/dL 05/17/2015 6:24 AM [facility] BILIRUBIN TOTAL 0.5 0.2 - 1.0 mg/dL 05/17/2015 6:24 AM [facility] ALKALINE PHOSPHATASE 173(H) 25 - 100 U/L 05/17/2015 6:24 AM [facility] AST 20 15 - 37 U/L 05/17/2015 6:24 AM [facility] ALT 24 13 - 61 U/L 05/17/2015 6:24 AM [facility] GFR >60 >=60 mL/min/1. 73 sq meter 05/17/2015 6:24 AM [facility] Comment: eGFR has not been [...] mL/min/1. 73 sq meter 05/17/2015 6:24 AM [facility] ANION GAP 9 8 - 16 mmol/L 05/17/2015 6:24 AM [facility] Blood Collection / Unknown 05/17/2015 3:30 AM CHEMISTRY RESEARCH ASSISTANT 05/17/2015 5:20 AM CHEMISTRY RESEARCH ASSISTANT us Magdi Crawford MD CHEMISTRY ORDERABLES Final Result [facility] CLIA# [id number] [address] [place] [address] documented in this encounter Visit Diagnoses Not on filedocumented in this encounter
--- OUTSIDE RECORDS SUMMARY | 2025-03-14 05:28 | XMS_ITS | Encounter Summary ---
Author Organization [facility] Address [address] [place] [address] Care Team Providers Care Trim Mechanic Name Role Phone Unavailable Primary Care Provider Unavailabl e Encounter Details Date Type Department Care Team (Late st Contact Info) Description 02/03/2002 Outpatient Historical [facility] Ferrell [place] [address] [place] [address] Jeramie Cartagena MD [address] [facility] [address] [place] [address] CHEST PAIN NOS (Primary Dx); HYPERTENSION NOS Social History Tobacco Use Types Packs/Day Years Used Date Smoking Tobacco: Never Assessed Comments Unknown Sex and Gender Information Value Date Recorded Sex Assigned at Not on file Legal Sex Female 4:17 AM FABRICATOR SPECIAL ITEMS Gender Identity Not on file Sexual Orientation Not on file documented as of this encounter Plan of Treatment Not on file documented as of this encounter Visit Diagnoses Diagnosis Chest pain, unspecified- Primary Unspecified essential hypertension documented in this encounter
--- OUTSIDE RECORDS SUMMARY | 2025-03-14 05:28 | XMS_ITS | Encounter Summary ---
Author Organization [address] [facility] Address [address] [place] [address] Care Team Providers Care Bioinformatics Computer Scientist Name Role Phone Unavailable Primary Care Provider Unavailabl e Encounter Details Date Type Department Care Team (Latest Contact Info) Description 12/19/2002 Outpatient Historical [facility] Matteo Inman, Gurwinder Mora MD [address] [place] [phone] Gynecologic examination (Primary Dx); ABN FIND-STOOL CONTENTS-OCC BLOOD; NEOPLASM NOS, SITE NEC; SCREENING MAL NEOP-COLON Social History Tobacco Use Types Packs/Day Years Used Date Smoking Tobacco: Never Assessed Comments Unknown Sex and Gender Information Value Date Recorded Sex Assigned at Not on file Legal Sex Female 4:17 AM MICROBIOLOGY COORDINATOR Gender Identity Not on file Sexual Orientation [...]
--- OUTSIDE RECORDS SUMMARY | 2025-03-14 05:28 | XMS_ITS | Encounter Summary ---
Author Organization [email or web address] [facility] Address [address] [place] [address] Care Team Providers Care Marketing Senior Recruiter Name Role Phone Unavailable Primary Care Provider Unavailabl e Encounter Details Date Type Department Care Team (Late st Contact Info) Description 04/04/2002 Outpatient Historical [facility] Matteo Inman, Gurwinder Mora MD [address] [place] [address] Social History Tobacco Use Types Packs/Day Years Used Date Smoking Tobacco: Never Assessed Comments Unknown Sex and Gender Information Value Date Recorded Sex Assigned at Not on file Legal Sex Female 4:17 AM CLINICAL DATA PROGRAMMER Gender Identity Not on file Sexual Orientation Not on file documented as of this encounter Plan of Treatment Not on file documented as of this encounter Visit Diagnoses Not on filedocumented in this encounter
--- OUTSIDE RECORDS SUMMARY | 2025-03-14 05:28 | XMS_ITS | Encounter Summary ---
Author Organization [employer] [facility] Address [address] [place] [address] Care Team Providers Care Hull Inspector Name Role Phone Unavailable Primary Care Provider Unavailabl e Encounter Details Date Type Department Care Team (Latest Contact Info) Description 01/08/2002 Outpatient Historical [facility] [place]teo [place]man, [place] [address] [place] [phone] CHEST PAIN NOS (Primary Dx); SHORTNESS OF BREATH; HYPERTENSION NOS Social History Tobacco Use Types Packs/Day Years Used Date Smoking Tobacco: Never Assessed Comments Unknown Sex and Gender Information Value Date Recorded Sex Assigned at Not on file Legal Sex Female 4:17 AM MINK SLICER Gender Identity Not on file Sexual Orientation Not on file documented as of this encounter Plan of Treatment Not on file documented as of this encounter Visit Diagnoses Diagnosis Chest pain, unspecified- Primary Shortness of breath Unspecified essential hypertension documented in this encounter
--- OUTSIDE RECORDS SUMMARY | 2025-03-14 05:28 | XMS_ITS | Encounter Summary ---
Author Organization [facility] Address [address] [place] [address] Care Team Providers Care Cost Consultant Name Role Phone Unavailable Primary Care Provider Unavailabl e Encounter Details Date Type Department Care Team (Late st Contact Info) Description 05/01/2015 Lab Requisition [facility] Laboratory Services [address] [place] [address] Magdi Crawford MD [address] [place] [address] Social History Tobacco Use Types Packs/Day Years Used Date Smoking Tobacco: Never Assessed Comments Unknown Sex and Gender Information Value Date Recorded Sex Assigned at Not on file Legal Sex Female 4:17 AM SURVEILLANCE SENSOR OFFICER Gender Identity Not on file Sexual Orientation Not on file documented as of this encounter Plan of Treatment Not on file documented as of this encounter Procedures Procedure Name Priority Date/Time Associated Diagnosis Comments URINALYSIS W/REFLEX MICROSCOPIC Routine 05/01/2015 1:40 PM SURVEILLANCE SENSOR OFFICER URINE CULTURE Routine 05/01/2015 1:40 PM SURVEILLANCE SENSOR OFFICER documented in this encounter Results * URINE CULTURE (05/01/2015 1:40 PM SURVEILLANCE SENSOR OFFICER) CULTURE Polymicrobial growth consistent with normal urethral zaida and/or colonizing bacteria 05/02/2015 2:39 PM SURVEILLANCE SENSOR OFFICER [facility] [employer] [facility] Urine URINE SPECIMEN OBTAINED BY CLEAN CATCH PROCEDURE / Unknown Collection / Unknown 05/01/2015 1:40 PM SURVEILLANCE SENSOR OFFICER 05/01/2015 3:32 PM SURVEILLANCE SENSOR OFFICER us Magdi Crawford MD MICROBIOLOGY - GENERAL ORDE RABLES Final Result Performing Organization Address City/[facility]/ZIP Co de Phone Number [facility] CLIA# [id number] [facility] [place] [address] * URINALYSIS (05/01/2015 1:40 PM SURVEILLANCE SENSOR OFFICER) COLOR UA Yellow Pale to dark yellow [...] Unknown Collection / Unknown 05/01/2015 1:40 PM SURVEILLANCE SENSOR OFFICER 05/01/2015 3:32 PM SURVEILLANCE SENSOR OFFICER us Magdi Crawford MD URINE ORDERABLES Final Resu lt [facility] CLIA# [id number] [place] [address] documented in this encounter Visit Diagnoses Not on filedocumented in this encounter
--- OUTSIDE RECORDS SUMMARY | 2025-03-14 05:28 | XMS_ITS | Encounter Summary ---
Author Organization [facility] Address [address] [place] [address] Care Team Providers Care Bedspread Cutter Hand Name Role Phone Unavailable Primary Care Provider Unavailabl e Encounter Details Date Type Department Care Team (Late st Contact Info) Description 04/27/2015 Lab Requisition [facility] Laboratory Services [address] [place] [address] Magdi Crawford MD [address] [place] [address] Social History Tobacco Use Types Packs/Day Years Used Date Smoking Tobacco: Never Assessed Comments Unknown Sex and Gender Information Value Date Recorded Sex Assigned at Not on file Legal Sex Female 4:17 AM MONOTYPE KEYBOARD OPERATOR Gender Identity Not on file Sexual Orientation Not on file documented as of this encounter Plan of Treatment Not on file documented as of this encounter Procedures Procedure Name Priority Date/Time Associated Diagnosis Comments VANCOMYCIN LEVEL TROUGH Routine 04/27/2015 2:15 PM MONOTYPE KEYBOARD OPERATOR documented in this encounter Results * (ABNORMAL) VANCOMYCIN LEVEL TROUGH (04/27/2015 2:15 PM MONOTYPE KEYBOARD OPERATOR) VANCOMYCIN, TROUGH 7.6(L) 10.0 - 20.0 ug/mL 04/27/2015 3:43 PM MONOTYPE KEYBOARD OPERATOR [facility] Blood Venipuncture - L ab Collect / Unknown 04/27/2015 2:15 PM MONOTYPE KEYBOARD OPERATOR 04/27/2015 3:10 PM MONOTYPE KEYBOARD OPERATOR us Magdi Crawford MD CHEMISTRY ORDERABLES Final Result [facility]# [id number] [address] [place] [address] documented in this encounter Visit Diagnoses Not on filedocumented in this encounter
--- OUTSIDE RECORDS SUMMARY | 2025-03-14 05:28 | XMS_ITS | Encounter Summary ---
Author Organization [employer] [facility] Address [address] [place] [address] Care Team Providers Care Boiler Welder Name Role Phone Unavailable Primary Care Provider Unavailabl e Encounter Details Date Type Department Care Team (Latest Contact Info) Description 01/15/2002 Outpatient Historical [facility] Matteo Inman, [place] [address] [place] [phone] HYPERTENSION NOS (Primary Dx); FOLLOW-UP EXAM NOS Social History Tobacco Use Types Packs/Day Years Used Date Smoking Tobacco: Never Assessed Comments Unknown Sex and Gender Information Value Date Recorded Sex Assigned at Not on file Legal Sex Female 4:17 AM RETAIL PARTS PRO Gender Identity Not on file Sexual Orientation Not on file documented as of this encounter Plan of Treatment Not on file documented as of this encounter Visit Diagnoses Diagnosis Unspecified essential hypertension- Primary Unspecified follow-up examination documented in this encounter
--- OUTSIDE RECORDS SUMMARY | 2025-03-14 05:28 | XMS_ITS | Encounter Summary ---
Author Organization [facility] Address [address] [place] [address] Care Team Providers Care Rubber Turner Name Role Phone Unavailable Primary Care Provider Unavailabl e Encounter Details Date Type Department Care Team (Late st Contact Info) Description 04/22/2015 Lab Requisition [facility] Laboratory Services [address] [place] [address] Magdi Crawford MD [address] [place] [address] Social History Tobacco Use Types Packs/Day Years Used Date Smoking Tobacco: Never Assessed Comments Unknown Sex and Gender Information Value Date Recorded Sex Assigned at Not on file Legal Sex Female 4:17 AM PHARMACY INNOVATION ASSISTANT Gender Identity Not on file Sexual Orientation Not on file documented as of this encounter Plan of Treatment Not on file documented as of this encounter Procedures Procedure Name Priority Date/Time Associated Diagnosis Comments CBC WITH DIFFERENTIAL Routine 04/22/2015 3:30 AM PHARMACY INNOVATION ASSISTANT MAGNESIUM LEVEL Routine 04/22/2015 3:30 AM PHARMACY INNOVATION ASSISTANT VANCOMYCIN LEVEL RANDOM Routine 04/22/2015 3:30 AM PHARMACY INNOVATION ASSISTANT LIPID PANEL Routine 04/22/2015 3:30 AM PHARMACY INNOVATION ASSISTANT COMPREHENSIVE METABOLIC PANEL Routine 04/22/2015 3:30 AM PHARMACY INNOVATION ASSISTANT documented in this encounter Results * MAGNESIUM LEVEL (04/22/2015 3:30 AM PHARMACY INNOVATION ASSISTANT) MAGNESIUM 2.0 1.8 - 2.4 mg/dL 04/22/2015 6:09 AM [facility] Blood Collection / Unknown 04/22/2015 3:30 AM PHARMACY INNOVATION ASSISTANT 04/22/2015 5:06 AM PHARMACY INNOVATION ASSISTANT us Magdi Crawford MD CHEMISTRY ORDERABLES Final Result Performing Organization Address [facility] Co de Phone Number [facility] CLIA# [id number] [address] [place] [address] * VANCOMYCIN LEVEL RANDOM (04/22/2015 3:30 AM PHARMACY INNOVATION ASSISTANT) Pathologist [facility] VANCOMYCIN, RANDOM 5.5 5.0 - 50.0 ug/mL 04/22/2015 6:09 AM [facility] Blood Collection / Unknown 04/22/2015 3:30 AM PHARMACY INNOVATION ASSISTANT 04/22/2015 5:06 AM PHARMACY INNOVATION ASSISTANT Narrative [facility] - 04/22/2015 6:09 AM PHARMACY INNOVATION ASSISTANT Vancomycin Therapeutic Ranges: Vancomycin Trough: 10 - 20 mcg/mL Vancomycin Peak: 25 - 50 mcg/mL us Magdi Crawford MD CHEMISTRY ORDERABLES Final Result Performing Organization Address [facility] Co de Phone Number [facility] CLIA# [id number] [address] [place] [address] * (ABNORMAL) CBC WITH DIFFERENTIAL (04/22/2015 3:30 AM PHARMACY INNOVATION ASSISTANT) WBC 25.0(H) 4.8 - 10.8 K/uL 04/22/2015 6:38 AM [facility] RBC 2.95(L) 4.20 - 5.40 M/uL 04/22/2015 6:38 AM [facility] HEMOGLOBIN 8.6(L) 12.0 - 16.0 g/dL 04/22/2015 6:38 AM [facility] HEMATOCRIT 26.6(L) 36.0 - 46.0 % 04/22/2015 6:38 AM [facility] MCV 90.2 84.0 - 103.0 fL 04/22/2015 6:38 AM [facility] MCH 29.2 27.0 - 34.0 pg 04/22/2015 6:38 AM [facility] MCHC 32.3 30.0 - 35.0 g/dL 04/22/2015 6:38 AM [facility] RDW 16.6(H) 11.0 - 14.5 % 04/22/2015 6:38 AM [facility] RDW-STDEV 52.3 37.0 - 54.0 fL 04/22/2015 6:38 AM [facility] PLATELETS 438 140 - 440 K/uL 04/22/2015 6:38 AM [facility] MPV 11.4 8.9 - 12.8 fL 04/22/2015 6:38 AM [facility] NEUTROPHILS 84(H) 42 - 75 % 04/22/2015 6:38 AM [facility] LYMPHOCYTES 6(L) 24 - 44 % 04/22/2015 6:38 AM [facility] MONOCYTES 4 2 - 10 % 04/22/2015 6:38 AM [facility] EOSINOPHILS 1 0 - 7 % 04/22/2015 6:38 AM [facility] BASOPHILS 0 0 - 1 % 04/22/2015 6:38 AM [facility] NEUTROPHIL ABSOLUTE 21.01(H) 2.00 - 8.00 K/uL 04/22/2015 6:38 AM [facility] LYMPHOCYTE ABSOLUTE 1.44 1.20 - 4.00 K/uL 04/22/2015 6:38 AM [facility] MONOCYTE ABSOLUTE 1.09(H) 0.10 - 0.60 K/uL 04/22/2015 6:38 AM [facility] EOSINOPHIL ABSOLUTE 0.19 0.00 - 0.70 K/uL 04/22/2015 6:38 AM [facility] BASOPHILS ABSOLUTE 0.05 0.00 - 0.20 K/uL 04/22/2015 6:38 AM [facility] IMMATURE GRANULOCYTES 5(H) 0 - 2 % 04/22/2015 6:38 AM [facility] IMMATURE GRANULOCYTES ABSOLUTE 1.17(H) 0.00 - 0.10 K/uL 04/22/2015 6:38 AM [facility] Blood Collection / Unknown 04/22/2015 3:30 AM PHARMACY INNOVATION ASSISTANT 04/22/2015 5:06 AM PHARMACY INNOVATION ASSISTANT us Magdi Crawford MD HEMATOLOGY ORDERABLES Final Result [facility] CLIA# [id number] [address] [place] [address] * (ABNORMAL) LIPID PANEL (04/22/2015 3:30 AM PHARMACY INNOVATION ASSISTANT) CHOLESTEROL <50 <200 mg/dL 04/22/2015 6:25 AM [facility] TRIGLYCERIDE 113 <150 mg/dL 04/22/2015 6:25 AM [facility] HDL 13(L) 40 - 59 mg/dL 04/22/2015 6:25 AM [facility] LDL CALCULATED <100 mg/dL 04/22/2015 6:25 AM [facility] Comment:Chol <50 calculation not valid NON-HDL CHOLESTEROL <130 mg/dL 04/22/2015 6:25 AM [facility] Comment:Chol <50 calculation not valid Blood Collection / Unknown 04/22/2015 3:30 AM PHARMACY INNOVATION ASSISTANT 04/22/2015 5:06 AM PHARMACY INNOVATION ASSISTANT Narrative [facility] - 04/22/2015 6:25 AM PHARMACY INNOVATION ASSISTANT TOTAL CHOLESTEROL mg/dL Desirable <200 Borderline [...] Very high >=220 Based on AHA/NCEP Guidelines Magdi Crawford MD CHEMISTRY ORDERABLES Final Result [facility]LC[facility]# [id number] [facility] [place] [address] * (ABNORMAL) COMPREHENSIVE METABOLIC PANEL (04/22/2015 3:30 AM [facility]) [facility] SODIUM 140 136 - 145 mmol/L 04/22/2015 6:09 AM [facility] POTASSIUM 3.9 3.5 - 5.1 mmol/L 04/22/2015 6:09 AM [facility] CHLORIDE 107 98 - 107 mmol/L 04/22/2015 6:09 AM [facility] CO2 25 21 - 32 mmol/L 04/22/2015 6:09 AM [facility] CALCIUM 7.3(L) 8.4 - 10.1 mg/dL 04/22/2015 6:09 AM [facility] BUN 19(H) 7 - 17 mg/dL 04/22/2015 6:09 AM [facility] CREATININE 0.48(L) 0.55 - 1.02 mg/dL 04/22/2015 6:09 AM [facility] GLUCOSE 111(H) 74 - 106 mg/dL 04/22/2015 6:09 AM [facility] TOTAL PROTEIN 4.4(L) 6.4 - 8.2 g/dL 04/22/2015 6:09 AM [facility] ALBUMIN 1.3(L) 3.4 - 5.0 g/dL 04/22/2015 6:09 AM [facility] BILIRUBIN TOTAL 0.5 0.2 - 1.0 mg/dL 04/22/2015 6:09 AM [facility] ALKALINE PHOSPHATASE 53 25 - 100 U/L 04/22/2015 6:09 AM [facility] AST 15 15 - 37 U/L 04/22/2015 6:09 AM [facility] ALT 11(L) 13 - 61 U/L 04/22/2015 6:09 AM [facility] GFR >60 >=60 mL/min/1. 73 sq meter 04/22/2015 6:09 AM [facility] Comment: eGFR has not [...] mL/min/1. 73 sq meter 04/22/2015 6:09 AM [facility] ANION GAP 8 8 - 16 mmol/L 04/22/2015 6:09 AM [facility] Blood Collection / Unknown 04/22/2015 3:30 AM [facility] 04/22/2015 5:06 AM [facility] - 04/22/2015 6:09 AM [facility] The reference range for ALT has changed from its previous range of 12-78 U/L as of 03/31/2015. us Magdi Crawford MD CHEMISTRY ORDERABLES Final Result [facility] CLIA# [id number] [facility] [place] [address] documented in this encounter Visit Diagnoses Not on filedocumented in this encounter
--- OUTSIDE RECORDS SUMMARY | 2025-03-14 05:28 | XMS_ITS | Encounter Summary ---
Author Organization [facility] Address [address] [place] [address] Care Team Providers Care Plastic Surgery Manager Name Role Phone Unavailable Primary Care Provider Unavailabl e Encounter Details Date Type Department Care Team (Late st Contact Info) Description 04/22/2015 Lab Requisition [facility] Laboratory Services [facility] [address] [place] [address] Magdi Crawford MD [address] [place] [address] Social History Tobacco Use Types Packs/Day Years Used Date Smoking Tobacco: Never Assessed Comments Unknown Sex and Gender Information Value Date Recorded Sex Assigned at Not on file Legal Sex Female 4:17 AM DURABLE MEDICAL EQUIPMENT REPAIRER Gender Identity Not on file Sexual Orientation Not on file documented as of this encounter Plan of Treatment Not on file documented as of this encounter Procedures Procedure Name Priority Date/Time Associated Diagnosis Comments PREALBUMIN Routine 04/22/2015 3:30 AM DURABLE MEDICAL EQUIPMENT REPAIRER PHOSPHORUS Routine 04/22/2015 3:30 AM DURABLE MEDICAL EQUIPMENT REPAIRER documented in this encounter Results * PHOSPHORUS (04/22/2015 3:30 AM DURABLE MEDICAL EQUIPMENT REPAIRER) PHOSPHORUS 2.5 2.5 - 4.9 mg/dL 04/22/2015 5:54 AM DURABLE MEDICAL EQUIPMENT REPAIRER [facility] Blood Collection / Unknown 04/22/2015 3:30 AM DURABLE MEDICAL EQUIPMENT REPAIRER 04/22/2015 5:07 AM DURABLE MEDICAL EQUIPMENT REPAIRER us Magdi Crawford MD CHEMISTRY ORDERABLES Final Result [facility] [facility] CLIA# [id number] [address] [place] [address] * (ABNORMAL) PREALBUMIN (04/22/2015 3:30 AM DURABLE MEDICAL EQUIPMENT REPAIRER) PREALBUMIN 17(L) 20 - 40 mg/dL 04/22/2015 5:54 AM DURABLE MEDICAL EQUIPMENT REPAIRER [facility] Blood Collection / Unknown 04/22/2015 3:30 AM DURABLE MEDICAL EQUIPMENT REPAIRER 04/22/2015 5:07 AM DURABLE MEDICAL EQUIPMENT REPAIRER Magdi Crawford MD CHEMISTRY ORDERABLES Final Result Performing Organization Address [facility] Co de Phone Number [facility] [employer] [facility] CLIA# [id number] [address] [place], [place] [id number] documented in this encounter Visit Diagnoses Not on filedocumented in this encounter
--- OUTSIDE RECORDS SUMMARY | 2025-03-14 05:28 | XMS_ITS | Encounter Summary ---
Author Organization [facility] Address [address] [place] [address] Care Team Providers Care Bow Maker Production Name Role Phone Unavailable Primary Care Provider Unavailabl e Encounter Details Date Type Department Care Team (Late st Contact Info) Description 04/26/2015 Lab Requisition [facility] Laboratory Services [address] [place] [address] [place] [address] Magdi Crawford MD [address] [place] [address] Social History Tobacco Use Types Packs/Day Years Used Date Smoking Tobacco: Never Assessed Comments Unknown Sex and Gender Information Value Date Recorded Sex Assigned at Not on file Legal Sex Female 4:17 AM FIELD PROJECT MANAGER Gender Identity Not on file Sexual Orientation Not on file documented as of this encounter Plan of Treatment Not on file documented as of this encounter Procedures Procedure Name Priority Date/Time Associated Diagnosis Comments CBC WITH DIFFERENTIAL Routine 04/26/2015 3:30 AM FIELD PROJECT MANAGER TRIGLYCERIDE Routine 04/26/2015 3:30 AM FIELD PROJECT MANAGER PREALBUMIN Routine 04/26/2015 3:30 AM FIELD PROJECT MANAGER LIPID PANEL Routine 04/26/2015 3:30 AM FIELD PROJECT MANAGER COMPREHENSIVE METABOLIC PANEL Routine 04/26/2015 3:30 AM FIELD PROJECT MANAGER documented in this encounter Results * (ABNORMAL) LIPID PANEL (04/26/2015 3:30 AM FIELD PROJECT MANAGER) CHOLESTEROL <50 <200 mg/dL 04/26/2015 6:31 AM [facility] TRIGLYCERIDE 114 <150 mg/dL 04/26/2015 6:31 AM [facility] HDL 18(L) 40 - 59 mg/dL 04/26/2015 6:31 AM [facility] LDL CALCULATED <100 mg/dL 04/26/2015 6:31 AM [facility] Comment: Cholesterol <50 Calculation invalid NON-HDL CHOLESTEROL <130 mg/dL 04/26/2015 6:31 AM [facility] Comment: Cholesterol <50 Calculation invalid Blood Collection / Unknown 04/26/2015 3:30 AM FIELD PROJECT MANAGER 04/26/2015 5:29 AM FIELD PROJECT MANAGER [facility] - 04/26/2015 6:31 AM FIELD PROJECT MANAGER TOTAL CHOLESTEROL mg/dL Desirable <200 Borderline [...] Magdi Crawford MD CHEMISTRY ORDERABLES Final Result [facility]# [id number] [address] [place] [address] * TRIGLYCERIDE (04/26/2015 3:30 AM FIELD PROJECT MANAGER) TRIGLYCERIDE 114 <150 mg/dL 04/26/2015 6:24 AM [facility] Blood Collection / Unknown 04/26/2015 3:30 AM FIELD PROJECT MANAGER 04/26/2015 5:29 AM FIELD PROJECT MANAGER [facility] - 04/26/2015 6:24 AM FIELD PROJECT MANAGER TRIGLYCERIDES mg/dL Normal < 150 Borderline High 150 - 199 High 200 - 499 Very High >= 500 Based on AHA/NCEP Guidelines. us Magdi Crawford MD CHEMISTRY ORDERABLES Final Result Performing Organization Address City/[facility]/ZIP Co de Phone Number [facility] CLIA# [id number] [address] [place] [address] * (ABNORMAL) PREALBUMIN (04/26/2015 3:30 AM FIELD PROJECT MANAGER) Pathologist [facility] PREALBUMIN 18(L) 20 - 40 mg/dL 04/26/2015 6:24 AM [facility] Blood Collection / Unknown 04/26/2015 3:30 AM FIELD PROJECT MANAGER 04/26/2015 5:29 AM FIELD PROJECT MANAGER us Magdi Crawford MD CHEMISTRY ORDERABLES Final Result Performing Organization Address [facility] de Phone Number [facility] CLIA# [id number] [address] [place] [address] * (ABNORMAL) CBC WITH DIFFERENTIAL (04/26/2015 3:30 AM FIELD PROJECT MANAGER) [facility] WBC 15.5(H) 4.8 - 10.8 K/uL 04/26/2015 6:08 AM [facility] [employer] [facility] RBC 2.66(L) 4.20 - 5.40 M/uL 04/26/2015 6:08 AM [facility] [employer] [facility] HEMOGLOBIN 7.9(L) 12.0 - 16.0 g/dL 04/26/2015 6:08 AM [facility] [employer] [facility] HEMATOCRIT 24.2(L) 36.0 - 46.0 % 04/26/2015 6:08 AM [facility] MCV 91.0 84.0 - 103.0 fL 04/26/2015 6:08 AM [facility] MCH 29.7 27.0 - 34.0 pg 04/26/2015 6:08 AM [facility] MCHC 32.6 30.0 - 35.0 g/dL 04/26/2015 6:08 AM [facility] RDW 16.3(H) 11.0 - 14.5 % 04/26/2015 6:08 AM [facility] RDW-STDEV 53.1 37.0 - 54.0 fL 04/26/2015 6:08 AM [facility] PLATELETS 653(H) 140 - 440 K/uL 04/26/2015 6:08 AM [facility] MPV 10.0 8.9 - 12.8 fL 04/26/2015 6:08 AM [facility] NEUTROPHILS 82(H) 42 - 75 % 04/26/2015 6:08 AM [facility] LYMPHOCYTES 7(L) 24 - 44 % 04/26/2015 6:08 AM [facility] MONOCYTES 9 2 - 10 % 04/26/2015 6:08 AM [facility] EOSINOPHILS 1 0 - 7 % 04/26/2015 6:08 AM [facility] BASOPHILS 0 0 - 1 % 04/26/2015 6:08 AM [facility] NEUTROPHIL ABSOLUTE 12.66(H) 2.00 - 8.00 K/uL 04/26/2015 6:08 AM [facility] LYMPHOCYTE ABSOLUTE 1.06(L) 1.20 - 4.00 K/uL 04/26/2015 6:08 AM [facility] MONOCYTE ABSOLUTE 1.42(H) 0.10 - 0.60 K/uL 04/26/2015 6:08 AM [facility] [employer] [facility] EOSINOPHIL ABSOLUTE 0.20 0.00 - 0.70 K/uL 04/26/2015 6:08 AM [facility] BASOPHILS ABSOLUTE 0.05 0.00 - 0.20 K/uL 04/26/2015 6:08 AM [facility] IMMATURE GRANULOCYTES 1 0 - 2 % 04/26/2015 6:08 AM [facility] IMMATURE GRANULOCYTES ABSOLUTE 0.14(H) 0.00 - 0.10 K/uL 04/26/2015 6:08 AM [facility] Blood Collection / Unknown 04/26/2015 3:30 AM FIELD PROJECT MANAGER 04/26/2015 5:29 AM FIELD PROJECT MANAGER us Magdi Crawford MD HEMATOLOGY ORDERABLES Final Result [facility] CLIA# [id number] [facility] [place] [address] * (ABNORMAL) COMPREHENSIVE METABOLIC PANEL (04/26/2015 3:30 AM FIELD PROJECT MANAGER) Pathologist [facility] SODIUM 142 136 - 145 mmol/L 04/26/2015 6:24 AM [facility] POTASSIUM 3.3(L) 3.5 - 5.1 mmol/L 04/26/2015 6:24 AM [facility] CHLORIDE 105 98 - 107 mmol/L 04/26/2015 6:24 AM [facility] CO2 31 21 - 32 mmol/L 04/26/2015 6:24 AM [facility] CALCIUM 7.5(L) 8.4 - 10.1 mg/dL 04/26/2015 6:24 AM [facility] BUN 13 7 - 17 mg/dL 04/26/2015 6:24 AM [facility] CREATININE 0.34(L) 0.55 - 1.02 mg/dL 04/26/2015 6:24 AM [facility] GLUCOSE 101 74 - 106 mg/dL 04/26/2015 6:24 AM [facility] TOTAL PROTEIN 4.6(L) 6.4 - 8.2 g/dL 04/26/2015 6:24 AM [facility] ALBUMIN 1.3(L) 3.4 - 5.0 g/dL 04/26/2015 6:24 AM [facility] BILIRUBIN TOTAL 0.3 0.2 - 1.0 mg/dL 04/26/2015 6:24 AM [facility] ALKALINE PHOSPHATASE 53 25 - 100 U/L 04/26/2015 6:24 AM [facility] AST 13(L) 15 - 37 U/L 04/26/2015 6:24 AM [facility] ALT 8(L) 13 - 61 U/L 04/26/2015 6:24 AM [facility] GFR >60 >=60 mL/min/1. 73 sq meter 04/26/2015 6:24 AM [facility] Comment: eGFR has [...] mL/min/1. 73 sq meter 04/26/2015 6:24 AM [facility] ANION GAP 6(L) 8 - 16 mmol/L 04/26/2015 6:24 AM [facility] Blood Collection / Unknown 04/26/2015 3:30 AM FIELD PROJECT MANAGER 04/26/2015 5:29 AM [facility] - 04/26/2015 6:24 AM FIELD PROJECT MANAGER The reference range for ALT has changed from its previous range of 12-78 U/L as of 03/31/2015. us Magdi Crawford MD CHEMISTRY ORDERABLES Final Result [facility] CLIA# [id number] [address] [place] [address] documented in this encounter Visit Diagnoses Not on filedocumented in this encounter
--- OUTSIDE RECORDS SUMMARY | 2025-03-14 05:28 | XMS_ITS | Encounter Summary ---
Author Organization [employer] [facility] Address [address] [place] [address] Care Team Providers Care Safety Assistant Name Role Phone Unavailable Primary Care Provider Unavailabl e Encounter Details Date Type Department Care Team (Late st Contact Info) Description 04/24/2015 Lab Requisition [facility] Laboratory Services [address] [place] [address] [place] [phone] Timmy Kellogg MD [address] [place] [address] Social History Tobacco Use Types Packs/Day Years Used Date Smoking Tobacco: Never Assessed Comments Unknown Sex and Gender Information Value Date Recorded Sex Assigned at Not on file Legal Sex Female 4:17 AM RETAIL PLANNING MANAGER Gender Identity Not on file Sexual Orientation Not on file documented as of this encounter Plan of Treatment Not on file documented as of this encounter Procedures Procedure Name Priority Date/Time Associated Diagnosis Comments CBC WITH DIFFERENTIAL Routine 04/24/2015 3:05 AM RETAIL PLANNING MANAGER BASIC METABOLIC PANEL Routine 04/24/2015 3:05 AM RETAIL PLANNING MANAGER documented in this encounter Results * (ABNORMAL) BASIC METABOLIC PANEL (04/24/2015 3:05 AM RETAIL PLANNING MANAGER) SODIUM 141 136 - 145 mmol/L 04/24/2015 5:40 AM RETAIL PLANNING MANAGER [facility] POTASSIUM 3.6 3.5 - 5.1 mmol/L 04/24/2015 5:40 AM RETAIL PLANNING MANAGER [facility] CHLORIDE 106 98 - 107 mmol/L 04/24/2015 5:40 AM RETAIL PLANNING MANAGER [facility] CO2 28 21 - 32 mmol/L 04/24/2015 5:40 AM [facility] CALCIUM 7.3(L) 8.4 - 10.1 mg/dL 04/24/2015 5:40 AM [facility] BUN 12 7 - 17 mg/dL 04/24/2015 5:40 AM [facility] CREATININE 0.32(L) 0.55 - 1.02 mg/dL 04/24/2015 5:40 AM [facility] GLUCOSE 145(H) 74 - 106 mg/dL 04/24/2015 5:40 AM [facility] GFR >60 >=60 mL/min/1. 73 sq meter 04/24/2015 5:40 AM [facility] Comment: eGFR has not been validated [...] mL/min/1. 73 sq meter 04/24/2015 5:40 AM [facility] ANION GAP 7(L) 8 - 16 mmol/L 04/24/2015 5:40 AM [facility] Blood Collection / Unknown 04/24/2015 3:05 AM RETAIL PLANNING MANAGER 04/24/2015 5:03 AM [facility] us Timmy Kellogg MD CHEMISTRY ORDERABLES Final Res ult [facility] CLIA# [id number] [address] [place] [address] * (ABNORMAL) CBC WITH DIFFERENTIAL (04/24/2015 3:05 AM [facility]) WBC 19.3(H) 4.8 - 10.8 K/uL 04/24/2015 5:29 AM [facility] RBC 2.72(L) 4.20 - 5.40 M/uL 04/24/2015 5:29 AM [facility] HEMOGLOBIN 8.1(L) 12.0 - 16.0 g/dL 04/24/2015 5:29 AM [facility] HEMATOCRIT 25.1(L) 36.0 - 46.0 % 04/24/2015 5:29 AM [facility] MCV 92.3 84.0 - 103.0 fL 04/24/2015 5:29 AM [facility] MCH 29.8 27.0 - 34.0 pg 04/24/2015 5:29 AM [facility] MCHC 32.3 30.0 - 35.0 g/dL 04/24/2015 5:29 AM [facility] RDW 16.7(H) 11.0 - 14.5 % 04/24/2015 5:29 AM [facility] RDW-STDEV 54.7(H) 37.0 - 54.0 fL 04/24/2015 5:29 AM [facility] PLATELETS 449(H) 140 - 440 K/uL 04/24/2015 5:29 AM [facility] MPV 10.4 8.9 - 12.8 fL 04/24/2015 5:29 AM [facility] NEUTROPHILS 87(H) 42 - 75 % 04/24/2015 5:29 AM [facility] LYMPHOCYTES 4(L) 24 - 44 % 04/24/2015 5:29 AM [facility] MONOCYTES 6 2 - 10 % 04/24/2015 5:29 AM [facility] EOSINOPHILS 1 0 - 7 % 04/24/2015 5:29 AM [facility] BASOPHILS 0 0 - 1 % 04/24/2015 5:29 AM [facility] NEUTROPHIL ABSOLUTE 16.83(H) 2.00 - 8.00 K/uL 04/24/2015 5:29 AM [facility] LYMPHOCYTE ABSOLUTE 0.82(L) 1.20 - 4.00 K/uL 04/24/2015 5:29 AM RETAIL PLANNING MANAGER [facility] MONOCYTE ABSOLUTE 1.12(H) 0.10 - 0.60 K/uL 04/24/2015 5:29 AM [facility] EOSINOPHIL ABSOLUTE 0.19 0.00 - 0.70 K/uL 04/24/2015 5:29 AM [facility] BASOPHILS ABSOLUTE 0.05 0.00 - 0.20 K/uL 04/24/2015 5:29 AM [facility] IMMATURE GRANULOCYTES 2 0 - 2 % 04/24/2015 5:29 AM [facility] IMMATURE GRANULOCYTES ABSOLUTE 0.33(H) 0.00 - 0.10 K/uL 04/24/2015 5:29 AM [facility] Blood Collection / Unknown 04/24/2015 3:05 AM RETAIL PLANNING MANAGER 04/24/2015 5:03 AM RETAIL PLANNING MANAGER us Timmy Kellogg MD HEMATOLOGY ORDERABLES Final Re sult [facility] CLIA# [id number] [address] [place] [address] documented in this encounter Visit Diagnoses Not on filedocumented in this encounter
--- OUTSIDE RECORDS SUMMARY | 2025-03-14 05:28 | XMS_ITS | Encounter Summary ---
Author Organization [facility] [facility] Address [address] [place] [address] Care Team Providers Care Dowel Pin Worker Name Role Phone Unavailable Primary Care Provider Unavailabl e Encounter Details Date Type Department Care Team (Late st Contact Info) Description 05/17/2015 Lab Requisition [facility] Laboratory Services [facility] [address] [place] [address] Magdi Crawford MD [address] [place] [address] Social History Tobacco Use Types Packs/Day Years Used Date Smoking Tobacco: Never Assessed Comments Unknown Sex and Gender Information Value Date Recorded Sex Assigned at Not on file Legal Sex Female 4:17 AM RESIDENTIAL AIR SEALING TECHNICIAN Gender Identity Not on file Sexual Orientation Not on file documented as of this encounter Plan of Treatment Not on file documented as of this encounter Procedures Procedure Name Priority Date/Time Associated Diagnosis Comments PHOSPHORUS Routine 05/17/2015 3:30 AM RESIDENTIAL AIR SEALING TECHNICIAN MAGNESIUM LEVEL Routine 05/17/2015 3:30 AM RESIDENTIAL AIR SEALING TECHNICIAN documented in this encounter Results * PHOSPHORUS (05/17/2015 3:30 AM RESIDENTIAL AIR SEALING TECHNICIAN) PHOSPHORUS 3.9 2.5 - 4.9 mg/dL 05/17/2015 8:49 AM RESIDENTIAL AIR SEALING TECHNICIAN [facility] Blood Venipuncture - Floor Collect / Unknown 05/17/2015 3:30 AM RESIDENTIAL AIR SEALING TECHNICIAN 05/17/2015 8:28 AM RESIDENTIAL AIR SEALING TECHNICIAN us Magdi Crawford MD CHEMISTRY ORDERABLES Final Result Performing Organization Address City/[facility]/ZIP Co de Phone Number [facility] [employer] [facility] CLIA# [id number] [address] [place], [place] [id number] * MAGNESIUM LEVEL (05/17/2015 3:30 AM RESIDENTIAL AIR SEALING TECHNICIAN) MAGNESIUM 1.9 1.8 - 2.4 mg/dL 05/17/2015 8:49 AM RESIDENTIAL AIR SEALING TECHNICIAN [facility] [employer] [facility] Blood Venipuncture - Floor Collect / Unknown 05/17/2015 3:30 AM RESIDENTIAL AIR SEALING TECHNICIAN 05/17/2015 8:28 AM RESIDENTIAL AIR SEALING TECHNICIAN us Magdi Crawfrod MD CHEMISTRY ORDERABLES Final Result Performing Organization Address [facility] Co de Phone Number [facility] [employer] [facility] CLIA# [id number] [address] [place] [address] documented in this encounter Visit Diagnoses Not on filedocumented in this encounter
--- OUTSIDE RECORDS SUMMARY | 2025-03-14 05:28 | XMS_ITS | Encounter Summary ---
Author Organization [facility] Address [address] [place] [address] Care Team Providers Care Acquisitions Librarian Name Role Phone Unavailable Primary Care Provider Unavailabl e Encounter Details Date Type Department Care Team (Latest Contact Info) Description 01/28/2002 Outpatient Historical [facility] Cardiology- [place] [address] [place] [address] Jeramie Cartagena MD [address] [facility] [address] [place] [address] ANGINA PECTORIS NEC/NOS (Primary Dx); Benign hypertension Social History Tobacco Use Types Packs/Day Years Used Date Smoking Tobacco: Never Assessed Comments Unknown Sex and Gender Information Value Date Recorded Sex Assigned at Not on file Legal Sex Female 4:17 AM BUMP GRADER OPERATOR Gender Identity Not on file Sexual Orientation Not on file documented as of this encounter Plan of Treatment Not on file documented as of this encounter Visit Diagnoses Diagnosis Other and unspecified angina pectoris- Primary Benign hypertension Essential hypertension, benign documented in this encounter
--- OUTSIDE RECORDS SUMMARY | 2025-03-14 05:28 | XMS_ITS | Encounter Summary ---
Author Organization [employer] [facility] Address [address] [place] [address] Care Team Providers Care Tone Cabinet Assembler Name Role Phone Unavailable Primary Care Provider Unavailabl e Encounter Details Date Type Department Care Team (Late st Contact Info) Description 05/02/2015 Lab Requisition [facility] Laboratory Services [address] [place] [address] [place] [phone] Timmy Kellogg MD [address] [place] [address] Social History Tobacco Use Types Packs/Day Years Used Date Smoking Tobacco: Never Assessed Comments Unknown Sex and Gender Information Value Date Recorded Sex Assigned at Not on file Legal Sex Female 4:17 AM KNITTING MACHINE FIXER HEAD Gender Identity Not on file Sexual Orientation Not on file documented as of this encounter Plan of Treatment Not on file documented as of this encounter Procedures Procedure Name Priority Date/Time Associated Diagnosis Comments CBC WITH DIFFERENTIAL Routine 05/02/2015 3:50 AM KNITTING MACHINE FIXER HEAD MAGNESIUM LEVEL Routine 05/02/2015 3:50 AM KNITTING MACHINE FIXER HEAD BASIC METABOLIC PANEL Routine 05/02/2015 3:50 AM KNITTING MACHINE FIXER HEAD documented in this encounter Results * MAGNESIUM LEVEL (05/02/2015 3:50 AM KNITTING MACHINE FIXER HEAD) MAGNESIUM 1.8 1.8 - 2.4 mg/dL 05/02/2015 6:16 AM KNITTING MACHINE FIXER HEAD [facility] Blood Collection / Unknown 05/02/2015 3:50 AM KNITTING MACHINE FIXER HEAD 05/02/2015 5:27 AM KNITTING MACHINE FIXER HEAD us Timmy Kellogg MD CHEMISTRY ORDERABLES Final Res ult [facility] CLIA# [id number] [address] [place] [address] * (ABNORMAL) CBC WITH DIFFERENTIAL (05/02/2015 3:50 AM KNITTING MACHINE FIXER HEAD) Pathologist [facility] WBC 9.2 4.8 - 10.8 K/uL 05/02/2015 5:54 AM [facility] RBC 2.70(L) 4.20 - 5.40 M/uL 05/02/2015 5:54 AM [facility] HEMOGLOBIN 7.6(L) 12.0 - 16.0 g/dL 05/02/2015 5:54 AM [facility] HEMATOCRIT 24.0(L) 36.0 - 46.0 % 05/02/2015 5:54 AM [facility] MCV 88.9 84.0 - 103.0 fL 05/02/2015 5:54 AM [facility] MCH 28.1 27.0 - 34.0 pg 05/02/2015 5:54 AM [facility] MCHC 31.7 30.0 - 35.0 g/dL 05/02/2015 5:54 AM [facility] RDW 16.3(H) 11.0 - 14.5 % 05/02/2015 5:54 AM [facility] RDW-STDEV 52.1 37.0 - 54.0 fL 05/02/2015 5:54 AM [facility] PLATELETS 431 140 - 440 K/uL 05/02/2015 5:54 AM [facility] MPV 9.7 8.9 - 12.8 fL 05/02/2015 5:54 AM [facility] NEUTROPHILS 68 42 - 75 % 05/02/2015 5:54 AM [facility] LYMPHOCYTES 16(L) 24 - 44 % 05/02/2015 5:54 AM [facility] MONOCYTES 11(H) 2 - 10 % 05/02/2015 5:54 AM [facility] EOSINOPHILS 3 0 - 7 % 05/02/2015 5:54 AM [facility] BASOPHILS 0 0 - 1 % 05/02/2015 5:54 AM [facility] NEUTROPHIL ABSOLUTE 6.30 2.00 - 8.00 K/uL 05/02/2015 5:54 AM [facility] LYMPHOCYTE ABSOLUTE 1.46 1.20 - 4.00 K/uL 05/02/2015 5:54 AM [facility] MONOCYTE ABSOLUTE 1.05(H) 0.10 - 0.60 K/uL 05/02/2015 5:54 AM [facility] EOSINOPHIL ABSOLUTE 0.29 0.00 - 0.70 K/uL 05/02/2015 5:54 AM [facility] BASOPHILS ABSOLUTE 0.04 0.00 - 0.20 K/uL 05/02/2015 5:54 AM [facility] IMMATURE GRANULOCYTES 1 0 - 2 % 05/02/2015 5:54 AM [facility] IMMATURE GRANULOCYTES ABSOLUTE 0.08 0.00 - 0.10 K/uL 05/02/2015 5:54 AM [facility] Blood Collection / Unknown 05/02/2015 3:50 AM KNITTING MACHINE FIXER HEAD 05/02/2015 5:27 AM [facility] us Timmy Kellogg MD HEMATOLOGY ORDERABLES Final Re sult [facility] CLIA# [id number] [address] [place] [address] * (ABNORMAL) BASIC METABOLIC PANEL (05/02/2015 3:50 AM KNITTING MACHINE FIXER HEAD) SODIUM 141 136 - 145 mmol/L 05/02/2015 6:15 AM [facility] POTASSIUM 3.2(L) 3.5 - 5.1 mmol/L 05/02/2015 6:15 AM [facility] CHLORIDE 103 98 - 107 mmol/L 05/02/2015 6:15 AM [facility] CO2 29 21 - 32 mmol/L 05/02/2015 6:15 AM [facility] CALCIUM 7.9(L) 8.4 - 10.1 mg/dL 05/02/2015 6:15 AM [facility] BUN 15 7 - 17 mg/dL 05/02/2015 6:15 AM [facility] CREATININE 0.46(L) 0.55 - 1.02 mg/dL 05/02/2015 6:15 AM [facility] GLUCOSE 126(H) 74 - 106 mg/dL 05/02/2015 6:15 AM [facility] GFR >60 >=60 mL/min/1. 73 sq meter 05/02/2015 6:15 AM [facility] Comment: eGFR has not [...] mL/min/1. 73 sq meter 05/02/2015 6:15 AM [facility] ANION GAP 9 8 - 16 mmol/L 05/02/2015 6:15 AM [facility] Blood Collection / Unknown 05/02/2015 3:50 AM KNITTING MACHINE FIXER HEAD 05/02/2015 5:27 AM KNITTING MACHINE FIXER HEAD us Timmy Kellogg MD CHEMISTRY ORDERABLES Final Res ult [facility] CLIA# [id number] [address] [place] [id number] documented in this encounter Visit Diagnoses Not on filedocumented in this encounter
--- OUTSIDE RECORDS SUMMARY | 2025-03-14 05:28 | XMS_ITS | Encounter Summary ---
Author Organization [facility] Address [address] [place] [address] Care Team Providers Care Kettle Chipper Name Role Phone Unavailable Primary Care Provider Unavailabl e Encounter Details Date Type Department Care Team (Latest Contact Info) Description 04/04/2002 Outpatient Historical [facility] Matteo Inman, Gurwinder Mora MD [address] [place] [phone] HYPERTENSION NOS (Primary Dx); OSTEOPOROSIS NOS Social History Tobacco Use Types Packs/Day Years Used Date Smoking Tobacco: Never Assessed Comments Unknown Sex and Gender Information Value Date Recorded Sex Assigned at Not on file Legal Sex Female 4:17 AM [employer]OT PEEN OPERATOR Gender Identity Not on file Sexual Orientation Not on file documented as of this encounter Plan of Treatment Not on file documented as of this encounter Visit Diagnoses Diagnosis Unspecified essential hypertension- Primary Osteoporosis, unspecified documented in this encounter
--- OUTSIDE RECORDS SUMMARY | 2025-03-14 05:28 | XMS_ITS | Encounter Summary ---
Author Organization [facility] Address [address] [place] [address] Care Team Providers Care China Decorator Name Role Phone Unavailable Primary Care Provider Unavailabl e Encounter Details Date Type Department Care Team (Late st Contact Info) Description 05/05/2015 Lab Requisition [facility] Laboratory Services [address] [place] [address] [place] [address] Magdi Crawford MD [address] [place] [address] Social History Tobacco Use Types Packs/Day Years Used Date Smoking Tobacco: Never Assessed Comments Unknown Sex and Gender Information Value Date Recorded Sex Assigned at Not on file Legal Sex Female 4:17 AM MOP WORKER Gender Identity Not on file Sexual Orientation Not on file documented as of this encounter Plan of Treatment Not on file documented as of this encounter Procedures Procedure Name Priority Date/Time Associated Diagnosis Comments CBC WITH DIFFERENTIAL Routine 05/05/2015 6:00 AM MOP WORKER COMPREHENSIVE METABOLIC PANEL Routine 05/05/2015 6:00 AM MOP WORKER documented in this encounter Results * (ABNORMAL) CBC WITH DIFFERENTIAL (05/05/2015 6:00 AM MOP WORKER) WBC 9.6 4.8 - 10.8 K/uL 05/05/2015 7:28 AM MOP WORKER [facility] RBC 3.05(L) 4.20 - 5.40 M/uL 05/05/2015 7:28 AM MOP WORKER [facility] HEMOGLOBIN 8.5(L) 12.0 - 16.0 g/dL 05/05/2015 7:28 AM [facility] HEMATOCRIT 27.1(L) 36.0 - 46.0 % 05/05/2015 7:28 AM [facility] MCV 88.9 84.0 - 103.0 fL 05/05/2015 7:28 AM [facility] MCH 27.9 27.0 - 34.0 pg 05/05/2015 7:28 AM [facility] MCHC 31.4 30.0 - 35.0 g/dL 05/05/2015 7:28 AM [facility] RDW 16.4(H) 11.0 - 14.5 % 05/05/2015 7:28 AM [facility] RDW-STDEV 52.7 37.0 - 54.0 fL 05/05/2015 7:28 AM [facility] PLATELETS 367 140 - 440 K/uL 05/05/2015 7:28 AM [facility] [employer] [facility] MPV 10.7 8.9 - 12.8 fL 05/05/2015 7:28 AM [facility] NEUTROPHILS 78(H) 42 - 75 % 05/05/2015 7:28 AM [facility] LYMPHOCYTES 11(L) 24 - 44 % 05/05/2015 7:28 AM [facility] MONOCYTES 7 2 - 10 % 05/05/2015 7:28 AM [facility] EOSINOPHILS 3 0 - 7 % 05/05/2015 7:28 AM [facility] [employer] [facility] BASOPHILS 0 0 - 1 % 05/05/2015 7:28 AM [facility] NEUTROPHIL ABSOLUTE 7.44 2.00 - 8.00 K/uL 05/05/2015 7:28 AM [facility] LYMPHOCYTE ABSOLUTE 1.08(L) 1.20 - 4.00 K/uL 05/05/2015 7:28 AM [facility] MONOCYTE ABSOLUTE 0.67(H) 0.10 - 0.60 K/uL 05/05/2015 7:28 AM [facility] [employer] [facility] EOSINOPHIL ABSOLUTE 0.29 0.00 - 0.70 K/uL 05/05/2015 7:28 AM [facility] BASOPHILS ABSOLUTE 0.02 0.00 - 0.20 K/uL 05/05/2015 7:28 AM [facility] IMMATURE GRANULOCYTES 1 0 - 2 % 05/05/2015 7:28 AM [facility] IMMATURE GRANULOCYTES ABSOLUTE 0.11(H) 0.00 - 0.10 K/uL 05/05/2015 7:28 AM [facility] Blood Collection / Unknown 05/05/2015 6:00 AM MOP WORKER 05/05/2015 7:23 AM MOP WORKER us Magdi Crawford MD HEMATOLOGY ORDERABLES Final Result [facility] CLIA# [id number] [facility] [place] [address] * (ABNORMAL) COMPREHENSIVE METABOLIC PANEL (05/05/2015 6:00 AM MOP WORKER) SODIUM 140 136 - 145 mmol/L 05/05/2015 7:52 AM [facility] POTASSIUM 3.7 3.5 - 5.1 mmol/L 05/05/2015 7:52 AM [facility] CHLORIDE 103 98 - 107 mmol/L 05/05/2015 7:52 AM [facility] CO2 30 21 - 32 mmol/L 05/05/2015 7:52 AM [facility] CALCIUM 7.9(L) 8.4 - 10.1 mg/dL 05/05/2015 7:52 AM [facility] BUN 18(H) 7 - 17 mg/dL 05/05/2015 7:52 AM [facility] CREATININE 0.41(L) 0.55 - 1.02 mg/dL 05/05/2015 7:52 AM [facility] GLUCOSE 163(H) 74 - 106 mg/dL 05/05/2015 7:52 AM [facility] TOTAL PROTEIN 6.0(L) 6.4 - 8.2 g/dL 05/05/2015 7:52 AM [facility] ALBUMIN 1.8(L) 3.4 - 5.0 g/dL 05/05/2015 7:52 AM [facility] BILIRUBIN TOTAL 0.3 0.2 - 1.0 mg/dL 05/05/2015 7:52 AM [facility] ALKALINE PHOSPHATASE 107(H) 25 - 100 U/L 05/05/2015 7:52 AM [facility] AST 21 15 - 37 U/L 05/05/2015 7:52 AM [facility] ALT 14 13 - 61 U/L 05/05/2015 7:52 AM [facility] GFR >60 >=60 mL/min/1. 73 sq meter 05/05/2015 7:52 AM [facility] Comment: eGFR has not [...] mL/min/1. 73 sq meter 05/05/2015 7:52 AM [facility] ANION GAP 7(L) 8 - 16 mmol/L 05/05/2015 7:52 AM [facility] Blood Collection / Unknown 05/05/2015 6:00 AM MOP WORKER 05/05/2015 7:23 AM MOP WORKER us Magdi Crawford MD CHEMISTRY ORDERABLES Final Result [facility] CLIA# [id number] [address] [place] [address] documented in this encounter Visit Diagnoses Not on filedocumented in this encounter
--- OUTSIDE RECORDS SUMMARY | 2025-03-14 05:28 | XMS_ITS | Encounter Summary ---
Author Organization [facility] Address [address] [place] [address] Care Team Providers Care Phone Manager Name Role Phone Unavailable Primary Care Provider Unavailabl e Encounter Details Date Type Department Care Team (Late st Contact Info) Description 05/10/2015 Lab Requisition [facility] Laboratory Services [address] [place] [address] [place] [address] Magdi Crawford MD [address] [place] [address] Social History Tobacco Use Types Packs/Day Years Used Date Smoking Tobacco: Never Assessed Comments Unknown Sex and Gender Information Value Date Recorded Sex Assigned at Not on file Legal Sex Female 4:17 AM DROP MAN Gender Identity Not on file Sexual Orientation Not on file documented as of this encounter Plan of Treatment Not on file documented as of this encounter Procedures Procedure Name Priority Date/Time Associated Diagnosis Comments PHOSPHORUS Routine 05/10/2015 7:00 AM DROP MAN documented in this encounter Results * PHOSPHORUS (05/10/2015 7:00 AM DROP MAN) PHOSPHORUS 3.1 2.5 - 4.9 mg/dL 05/10/2015 8:49 AM DROP MAN [facility] [employer] [facility] Blood Collection / Unknown 05/10/2015 7:00 AM DROP MAN 05/10/2015 8:02 AM DROP MAN us Magdi Crawford MD CHEMISTRY ORDERABLES Final Result [facility] [employer] [facility] CLIA# [id number] [address] [place] [address] documented in this encounter Visit Diagnoses Not on filedocumented in this encounter
--- OUTSIDE RECORDS SUMMARY | 2025-03-14 05:28 | XMS_ITS | Encounter Summary ---
Author Organization [employer] [facility] Address [address] [place] [address] Care Team Providers Care Knobber Name Role Phone Unavailable Primary Care Provider Unavailabl e Encounter Details Date Type Department Care Team (Late st Contact Info) Description 05/13/2015 Lab Requisition [facility] Laboratory Services [address] [place] [address] [place] [address] Magdi Crawford MD [address] [place] [address] Social History Tobacco Use Types Packs/Day Years Used Date Smoking Tobacco: Never Assessed Comments Unknown Sex and Gender Information Value Date Recorded Sex Assigned at Not on file Legal Sex Female 4:17 AM MACHINE BUNCH MAKER Gender Identity Not on file Sexual Orientation Not on file documented as of this encounter Plan of Treatment Not on file documented as of this encounter Procedures Procedure Name Priority Date/Time Associated Diagnosis Comments CBC WITH DIFFERENTIAL Routine 05/13/2015 3:30 AM MACHINE BUNCH MAKER PHOSPHORUS Routine 05/13/2015 3:30 AM MACHINE BUNCH MAKER MAGNESIUM LEVEL Routine 05/13/2015 3:30 AM MACHINE BUNCH MAKER COMPREHENSIVE METABOLIC PANEL Routine 05/13/2015 3:30 AM MACHINE BUNCH MAKER documented in this encounter Results * PHOSPHORUS (05/13/2015 3:30 AM MACHINE BUNCH MAKER) PHOSPHORUS 3.7 2.5 - 4.9 mg/dL 05/13/2015 6:21 AM MACHINE BUNCH MAKER [facility] [employer] [facility] Blood Collection / Unknown 05/13/2015 3:30 AM MACHINE BUNCH MAKER 05/13/2015 5:33 AM MACHINE BUNCH MAKER us Magdi Crawford MD CHEMISTRY ORDERABLES Final Result Performing Organization Address [facility]/ZIP Co de Phone Number [facility] CLIA# [id number] [address] [place] [address] * MAGNESIUM LEVEL (05/13/2015 3:30 AM MACHINE BUNCH MAKER) Pathologist [facility] MAGNESIUM 1.9 1.8 - 2.4 mg/dL 05/13/2015 6:21 AM [facility] Blood Collection / Unknown 05/13/2015 3:30 AM MACHINE BUNCH MAKER 05/13/2015 5:33 AM MACHINE BUNCH MAKER us Magdi Crawford MD CHEMISTRY ORDERABLES Final Result Performing Organization Address City/[facility] Co de Phone Number [facility] CLIA# [id number] [address] [place] [address] * (ABNORMAL) CBC WITH DIFFERENTIAL (05/13/2015 3:30 AM MACHINE BUNCH MAKER) Pathologist [facility] WBC 12.9(H) 4.8 - 10.8 K/uL 05/13/2015 6:06 AM [facility] [employer] [facility] RBC 3.33(L) 4.20 - 5.40 M/uL 05/13/2015 6:06 AM [facility] [employer] [facility] HEMOGLOBIN 9.0(L) 12.0 - 16.0 g/dL 05/13/2015 6:06 AM [facility] HEMATOCRIT 29.5(L) 36.0 - 46.0 % 05/13/2015 6:06 AM [facility] MCV 88.6 84.0 - 103.0 fL 05/13/2015 6:06 AM [facility] MCH 27.0 27.0 - 34.0 pg 05/13/2015 6:06 AM [facility] [employer] [facility] MCHC 30.5 30.0 - 35.0 g/dL 05/13/2015 6:06 AM [facility] [employer] [facility] RDW 17.2(H) 11.0 - 14.5 % 05/13/2015 6:06 AM [facility] RDW-STDEV 53.8 37.0 - 54.0 fL 05/13/2015 6:06 AM [facility] [employer] [facility] PLATELETS 460(H) 140 - 440 K/uL 05/13/2015 6:06 AM [facility] [employer] [facility] MPV 10.3 8.9 - 12.8 fL 05/13/2015 6:06 AM [facility] [employer] [facility] NEUTROPHILS 60 42 - 75 % 05/13/2015 6:06 AM [facility] [employer] [facility] LYMPHOCYTES 25 24 - 44 % 05/13/2015 6:06 AM [facility] [employer] [facility] MONOCYTES 7 2 - 10 % 05/13/2015 6:06 AM [facility] [employer] [facility] EOSINOPHILS 3 0 - 7 % 05/13/2015 6:06 AM [facility] [employer] [facility] BASOPHILS 0 0 - 1 % 05/13/2015 6:06 AM [facility] [employer] [facility] NEUTROPHIL ABSOLUTE 7.80 2.00 - 8.00 K/uL 05/13/2015 6:06 AM [facility] [employer] [facility] LYMPHOCYTE ABSOLUTE 3.23 1.20 - 4.00 K/uL 05/13/2015 6:06 AM [facility] [employer] [facility] MONOCYTE ABSOLUTE 0.93(H) 0.10 - 0.60 K/uL 05/13/2015 6:06 AM [facility] [employer] [facility] EOSINOPHIL ABSOLUTE 0.40 0.00 - 0.70 K/uL 05/13/2015 6:06 AM [facility] [employer] [facility] BASOPHILS ABSOLUTE 0.04 0.00 - 0.20 K/uL 05/13/2015 6:06 AM [facility] [employer] [facility] IMMATURE GRANULOCYTES 4(H) 0 - 2 % 05/13/2015 6:06 AM [facility] [employer] [facility] IMMATURE GRANULOCYTES ABSOLUTE 0.51(H) 0.00 - 0.10 K/uL 05/13/2015 6:06 AM [facility] [employer] [facility] Blood Collection / Unknown 05/13/2015 3:30 AM MACHINE BUNCH MAKER 05/13/2015 5:33 AM MACHINE BUNCH MAKER us Magdi Crawford MD HEMATOLOGY ORDERABLES Final Result [facility] CLIA# [id number] [facility] [place] [address] * (ABNORMAL) COMPREHENSIVE METABOLIC PANEL (05/13/2015 3:30 AM MACHINE BUNCH MAKER) SODIUM 139 136 - 145 mmol/L 05/13/2015 6:21 AM [facility] POTASSIUM 4.3 3.5 - 5.1 mmol/L 05/13/2015 6:21 AM [facility] CHLORIDE 105 98 - 107 mmol/L 05/13/2015 6:21 AM [facility] CO2 25 21 - 32 mmol/L 05/13/2015 6:21 AM [facility] CALCIUM 8.4 8.4 - 10.1 mg/dL 05/13/2015 6:21 AM [facility] BUN 19(H) 7 - 17 mg/dL 05/13/2015 6:21 AM [facility] CREATININE 0.46(L) 0.55 - 1.02 mg/dL 05/13/2015 6:21 AM [facility] GLUCOSE 125(H) 74 - 106 mg/dL 05/13/2015 6:21 AM [facility] TOTAL PROTEIN 6.3(L) 6.4 - 8.2 g/dL 05/13/2015 6:21 AM [facility] ALBUMIN 2.2(L) 3.4 - 5.0 g/dL 05/13/2015 6:21 AM [facility] BILIRUBIN TOTAL 0.5 0.2 - 1.0 mg/dL 05/13/2015 6:21 AM [facility] ALKALINE PHOSPHATASE 178(H) 25 - 100 U/L 05/13/2015 6:21 AM [facility] AST 18 15 - 37 U/L 05/13/2015 6:21 AM [facility] ALT 30 13 - 61 U/L 05/13/2015 6:21 AM [facility] GFR >60 >=60 mL/min/1. 73 sq meter 05/13/2015 6:21 AM [facility] Comment: eGFR has not been validated [...] mL/min/1. 73 sq meter 05/13/2015 6:21 AM [facility] ANION GAP 9 8 - 16 mmol/L 05/13/2015 6:21 AM [facility] Blood Collection / Unknown 05/13/2015 3:30 AM MACHINE BUNCH MAKER 05/13/2015 5:33 AM MACHINE BUNCH MAKER us Magdi Crawford MD CHEMISTRY ORDERABLES Final Result [facility] CLIA# [id number] [address] [place] [address] documented in this encounter Visit Diagnoses Not on filedocumented in this encounter
--- OUTSIDE RECORDS SUMMARY | 2025-03-14 05:28 | XMS_ITS | Encounter Summary ---
Author Organization [employer] [facility] Address [address] [place] [address] Care Team Providers Care Weighmaster Name Role Phone Unavailable Primary Care Provider Unavailabl e Encounter Details Date Type Department Care Team (Latest Contact Info) Description 01/07/2003 Outpatient Historical [facility] Matteo Inman, Gurwinder Mora MD [address] [place] [phone] OSTEOARTHROS NOS-UNSPEC (Primary Dx) Social History Tobacco Use Types Packs/Day Years Used Date Smoking Tobacco: Never Assessed Comments Unknown Sex and Gender Information Value Date Recorded Sex Assigned at Not on file Legal Sex Female 4:17 AM COORDINATOR CARDIOPULMONARY SERVICES Gender Identity Not on file Sexual Orientation Not on file documented as of this encounter Plan of Treatment Not on file documented as of this encounter Visit Diagnoses Diagnosis Osteoarthrosis, unspecified whether generalized or localized, unspecified site- Primary documented in this encounter
--- OUTSIDE RECORDS SUMMARY | 2025-03-14 05:28 | XMS_ITS | Encounter Summary ---
Author Organization [facility] Address [address] [place] [address] Care Team Providers Care Nutrition Services Worker Name Role Phone Unavailable Primary Care Provider Unavailabl e Encounter Details Date Type Department Care Team (Late st Contact Info) Description 04/24/2015 Lab Requisition [facility] Laboratory Services [address] [place] [address] [place] [address] Magdi Crawford MD [address] [place] [address] Social History Tobacco Use Types Packs/Day Years Used Date Smoking Tobacco: Never Assessed Comments Unknown Sex and Gender Information Value Date Recorded Sex Assigned at Not on file Legal Sex Female 4:17 AM NEW CAR MAKE READY WORKER Gender Identity Not on file Sexual Orientation Not on file documented as of this encounter Plan of Treatment Not on file documented as of this encounter Procedures Procedure Name Priority Date/Time Associated Diagnosis Comments URINALYSIS WITH REFLEX CULTURE Routine 04/24/2015 3:00 PM NEW CAR MAKE READY WORKER URINE CULTURE Routine 04/24/2015 3:00 PM NEW CAR MAKE READY WORKER documented in this encounter Results * (ABNORMAL) URINE CULTURE (04/24/2015 3:00 PM NEW CAR MAKE READY WORKER) CULTURE >= 100,000 cfu/mL Anjana albicans(A) 04/29/2015 8:07 AM NEW CAR MAKE READY WORKER [facility] Urine URINE SPECIMEN OBTAINED BY CLEAN CATCH PROCEDURE / Unknown Collection / Unknown 04/24/2015 3:00 PM NEW CAR MAKE READY WORKER 04/24/2015 5:01 PM NEW CAR MAKE READY WORKER Narrative Organism Antibiotic Method Susceptibility Anjana albicans FLUCONAZOLE <=1.0: Susceptible us Magdi Crawford MD MICROBIOLOGY - GENERAL JONATHAN RAI Final Result [facility] CLIA# [id number] [address] [place] [address] * (ABNORMAL) URINALYSIS WITH REFLEX CULTURE (04/24/2015 3:00 PM NEW CAR MAKE READY WORKER) COLOR UA Yellow Pale to dark yellow 04/24/2015 5:21 PM [facility] CLARITY UA Slightly Cloudy(A) Clear 04/24/2015 5:21 PM [facility] SPECIFIC GRAVITY UA 1.013 1.003 - 1.035 04/24/2015 5:21 PM [facility] PH UA 6.0 5.0 - 8.0 04/24/2015 5:21 PM [facility] LEUKOCYTE ESTERASE UA Trace(A) Negative 04/24/2015 5:21 PM [facility] NITRITE UA Negative Negative 04/24/2015 5:21 PM [facility] PROTEIN UA Negative Negative 04/24/2015 5:21 PM [facility] GLUCOSE UA 3+(A) Negative 04/24/2015 5:21 PM [facility] KETONES UA Negative Negative 04/24/2015 5:21 PM [facility] UROBILINOGEN UA <2.0 <2.0 mg/dL 04/24/2015 5:21 PM [facility] BILIRUBIN UA Negative Negative 04/24/2015 5:21 PM [facility] BLOOD UA Negative Negative 04/24/2015 5:21 PM [facility] WBC UA 0-2 0 - 2 /hpf 04/24/2015 5:21 PM [facility] RBC UA 3-5(A) 0 - 2 /hpf 04/24/2015 5:21 PM [facility] BACTERIA UA 1+(A) Negative /hpf 04/24/2015 5:21 PM [facility] EPITHELIAL CELLS, URINE 0-5 0 - 5 /hpf 04/24/2015 5:21 PM [facility] YEAST, BUDDING Present(A) Absent 04/24/2015 5:21 PM [facility] Urine Collection / Unknown 04/24/2015 3:00 PM NEW CAR MAKE READY WORKER 04/24/2015 5:01 PM NEW CAR MAKE READY WORKER Narrative [facility] - 04/24/2015 5:21 PM NEW CAR MAKE READY WORKER Based on results, a urine culture has been reflexed. us Magdi Crawford MD URINE ORDERABLES Final Resu lt [facility] CLIA# [id number] [address] [place] [address] documented in this encounter Visit Diagnoses Not on filedocumented in this encounter
--- OUTSIDE RECORDS SUMMARY | 2025-03-14 05:28 | XMS_ITS | Encounter Summary ---
Author Organization [employer] [facility] Address [address] [place] [address] Care Team Providers Care Warrant Clerk Name Role Phone Unavailable Primary Care Provider Unavailabl e Encounter Details Date Type Department Care Team (Latest Contact Info) Description 02/26/2002 Outpatient Historical [facility] Matteo Inman, [place] [address] [place] [phone] HYPERTENSION NOS (Primary Dx); BRONCHITIS NOS; OSTEOPOROSIS NOS Social History Tobacco Use Types Packs/Day Years Used Date Smoking Tobacco: Never Assessed Comments Unknown Sex and Gender Information Value Date Recorded Sex Assigned at Not on file Legal Sex Female 4:17 AM SUPERVISOR CAB Gender Identity Not on file Sexual Orientation Not on file documented as of this encounter Plan of Treatment Not on file documented as of this encounter Visit Diagnoses Diagnosis Unspecified essential hypertension- Primary Bronchitis, not specified as acute or chronic Osteoporosis, unspecified documented in this encounter
--- OUTSIDE RECORDS SUMMARY | 2025-03-14 05:29 | XMS_ITS | Encounter Summary ---
Author Organization [facility] Address [address] [place] [address] Care Team Providers Care Facing Slitter Name Role Phone Unavailable Primary Care Provider Unavailabl e Encounter Details Date Type Department Care Team (Late st Contact Info) Description 05/09/2015 Lab Requisition [facility] Laboratory Services [address] [place] [address] [place] [address] Magdi Crawford MD [address] [place] [address] Social History Tobacco Use Types Packs/Day Years Used Date Smoking Tobacco: Never Assessed Comments Unknown Sex and Gender Information Value Date Recorded Sex Assigned at Not on file Legal Sex Female 4:17 AM SCALLOP CUTTER Gender Identity Not on file Sexual Orientation Not on file documented as of this encounter Plan of Treatment Not on file documented as of this encounter Procedures Procedure Name Priority Date/Time Associated Diagnosis Comments C. DIFFICILE DETECTION Routine 05/09/2015 4:50 AM SCALLOP CUTTER documented in this encounter Results * CLOSTRIDIUM DIFFICILE TOXIN (05/09/2015 4:50 AM SCALLOP CUTTER) TOXIGENIC C DIFFICILE Not Detected Not Detected 05/09/2015 7:00 AM SCALLOP CUTTER [facility] [employer] [facility] Stool Collection / Unknown 05/09/2015 4:50 AM SCALLOP CUTTER 05/09/2015 5:29 AM SCALLOP CUTTER Narrative [facility] [employer] [facility] - 05/09/2015 7:00 AM SCALLOP CUTTER This assay is used to detect Clostridium difficile toxin B gene sequences in unformed stool specimens. If toxin is not detected, but clinical suspicion is high please consult ID for consultation and potential repeat testing. This test should not be used as a test of cure. us Magdi Crawford MD MICROBIOLOGY - GENERAL JONATHAN RAI Final Result [facility]# [id number] [facility] [place] [address] documented in this encounter Visit Diagnoses Not on filedocumented in this encounter
--- OUTSIDE RECORDS SUMMARY | 2025-03-14 05:29 | XMS_ITS | Encounter Summary ---
Author Organization [facility] Address [address] [place] [address] Care Team Providers Care Division Operations Manager Name Role Phone Unavailable Primary Care Provider Unavailabl e Encounter Details Date Type Department Care Team (Late st Contact Info) Description 05/10/2015 Lab Requisition [facility] Laboratory Services [facility] [address] [place] [address] Magdi Crawford MD [address] [place] [address] Social History Tobacco Use Types Packs/Day Years Used Date Smoking Tobacco: Never Assessed Comments Unknown Sex and Gender Information Value Date Recorded Sex Assigned at Not on file Legal Sex Female 4:17 AM OXYGEN SYSTEM TESTER Gender Identity Not on file Sexual Orientation Not on file documented as of this encounter Plan of Treatment Not on file documented as of this encounter Procedures Procedure Name Priority Date/Time Associated Diagnosis Comments TRIGLYCERIDE Routine 05/10/2015 7:00 AM OXYGEN SYSTEM TESTER MAGNESIUM LEVEL Routine 05/10/2015 7:00 AM OXYGEN SYSTEM TESTER COMPREHENSIVE METABOLIC PANEL Routine 05/10/2015 7:00 AM OXYGEN SYSTEM TESTER documented in this encounter Results * (ABNORMAL) TRIGLYCERIDE (05/10/2015 7:00 AM OXYGEN SYSTEM TESTER) TRIGLYCERIDE 177(H) <150 mg/dL 05/10/2015 8:16 AM OXYGEN SYSTEM TESTER [facility] [employer] [facility] Blood Collection / Unknown 05/10/2015 7:00 AM OXYGEN SYSTEM TESTER 05/10/2015 7:42 AM OXYGEN SYSTEM TESTER Narrative [facility] [employer] [facility] - 05/10/2015 8:16 AM OXYGEN SYSTEM TESTER TRIGLYCERIDES mg/dL Normal < 150 Borderline High 150 - 199 High 200 - 499 Very High >= 500 Based on AHA/NCEP Guidelines. Magdi Crawford MD CHEMISTRY ORDERABLES Final Result Performing Organization Address [facility] de Phone Number [facility] CLIA# [id number] [address] [place] [id number] * MAGNESIUM LEVEL (05/10/2015 7:00 AM OXYGEN SYSTEM TESTER) MAGNESIUM 1.8 1.8 - 2.4 mg/dL 05/10/2015 8:16 AM [facility] Blood Collection / Unknown 05/10/2015 7:00 AM OXYGEN SYSTEM TESTER 05/10/2015 7:42 AM OXYGEN SYSTEM TESTER Magdi Crawford MD CHEMISTRY ORDERABLES Final Result Performing Organization Address [facility] de Phone Number [facility] CLIA# [id number] [address] [place] [address] * (ABNORMAL) COMPREHENSIVE METABOLIC PANEL (05/10/2015 7:00 AM OXYGEN SYSTEM TESTER) SODIUM 138 136 - 145 mmol/L 05/10/2015 8:16 AM [facility] [employer] [facility] POTASSIUM 4.2 3.5 - 5.1 mmol/L 05/10/2015 8:16 AM [facility] CHLORIDE 105 98 - 107 mmol/L 05/10/2015 8:16 AM [facility] CO2 27 21 - 32 mmol/L 05/10/2015 8:16 AM [facility] CALCIUM 7.7(L) 8.4 - 10.1 mg/dL 05/10/2015 8:16 AM [facility] BUN 17 7 - 17 mg/dL 05/10/2015 8:16 AM [facility] CREATININE 0.46(L) 0.55 - 1.02 mg/dL 05/10/2015 8:16 AM [facility] GLUCOSE 148(H) 74 - 106 mg/dL 05/10/2015 8:16 AM [facility] TOTAL PROTEIN 6.0(L) 6.4 - 8.2 g/dL 05/10/2015 8:16 AM [facility] ALBUMIN 1.9(L) 3.4 - 5.0 g/dL 05/10/2015 8:16 AM [facility] BILIRUBIN TOTAL 0.3 0.2 - 1.0 mg/dL 05/10/2015 8:16 AM [facility] ALKALINE PHOSPHATASE 153(H) 25 - 100 U/L 05/10/2015 8:16 AM [facility] AST 21 15 - 37 U/L 05/10/2015 8:16 AM [facility] [employer] [facility] ALT 26 13 - 61 U/L 05/10/2015 8:16 AM [facility] GFR >60 >=60 mL/min/1. 73 sq meter 05/10/2015 8:16 AM [facility] [employer] [facility] Comment: eGFR has [...] mL/min/1. 73 sq meter 05/10/2015 8:16 AM [facility] [employer] [facility] ANION GAP 6(L) 8 - 16 mmol/L 05/10/2015 8:16 AM [facility] Blood Collection / Unknown 05/10/2015 7:00 AM OXYGEN SYSTEM TESTER 05/10/2015 7:42 AM OXYGEN SYSTEM TESTER us Magdi Crawford MD CHEMISTRY ORDERABLES Final Result [facility] CLIA# [id number] [facility] [place], [place] [id number] documented in this encounter Visit Diagnoses Not on filedocumented in this encounter
--- OUTSIDE RECORDS SUMMARY | 2025-03-14 05:29 | XMS_ITS | Encounter Summary ---
Author Organization [facility] Address [address] [place] [address] Care Team Providers Care Paper Machine Operator Name Role Phone Unavailable Primary Care Provider Unavailabl e Encounter Details Date Type Department Care Team (Latest Contact Info) Description 01/12/2000 Outpatient Historical [facility] Matteo Inman, Gurwinder Mora MD [address] [place] [phone] Vaccine for viral hepatitis (Primary Dx) Social History Tobacco Use Types Packs/Day Years Used Date Smoking Tobacco: Never Assessed Comments Unknown Sex and Gender Information Value Date Recorded Sex Assigned at Not on file Legal Sex Female 4:17 AM INSULATION BOARD COATER OPERATOR Gender Identity Not on file Sexual Orientation Not on file documented as of this encounter Plan of Treatment Not on file documented as of this encounter Visit Diagnoses Diagnosis Vaccine for viral hepatitis- Primary Need for prophylactic vaccination and inoculation against viral hepatitis documented in this encounter
--- OUTSIDE RECORDS SUMMARY | 2025-03-14 05:29 | XMS_ITS | Encounter Summary ---
Author Organization [facility] Address [address] [place] [address] Care Team Providers Care Fresh Foods Technician Name Role Phone Unavailable Primary Care Provider Unavailabl e Encounter Details Date Type Department Care Team (Late st Contact Info) Description 05/10/2015 Lab Requisition [facility] Laboratory Services [facility] [address] [place] [address] Magdi Crawford MD [address] [place] [address] Social History Tobacco Use Types Packs/Day Years Used Date Smoking Tobacco: Never Assessed Comments Unknown Sex and Gender Information Value Date Recorded Sex Assigned at Not on file Legal Sex Female 4:17 AM DATA INTEGRATION ARCHITECT Gender Identity Not on file Sexual [...] CBC WITH DIFFERENTIAL Routine 05/10/2015 4:35 AM DATA INTEGRATION ARCHITECT documented in this encounter Results * (ABNORMAL) CBC WITH DIFFERENTIAL (05/10/2015 4:35 AM DATA INTEGRATION ARCHITECT) Pathologist [facility] WBC 10.9(H) 4.8 - 10.8 K/uL 05/10/2015 6:33 AM DATA INTEGRATION ARCHITECT [facility] LABORATORY [facility] RBC 2.80(L) 4.20 - 5.40 M/uL 05/10/2015 6:33 AM [facility] HEMOGLOBIN 7.7(L) 12.0 - 16.0 g/dL 05/10/2015 6:33 AM [facility] HEMATOCRIT 28.6(L) 36.0 - 46.0 % 05/10/2015 6:33 AM [facility] MCV 102.1 84.0 - 103.0 fL 05/10/2015 6:33 AM [facility] MCH 27.5 27.0 - 34.0 pg 05/10/2015 6:33 AM [facility] MCHC 26.9(L) 30.0 - 35.0 g/dL 05/10/2015 6:33 AM [facility] RDW 18.6(H) 11.0 - 14.5 % 05/10/2015 6:33 AM [facility] RDW-STDEV 68.5(H) 37.0 - 54.0 fL 05/10/2015 6:33 AM [facility] PLATELETS 460(H) 140 - 440 K/uL 05/10/2015 6:33 AM [facility] MPV 11.3 8.9 - 12.8 fL 05/10/2015 6:33 AM [facility] NEUTROPHILS 61 42 - 75 % 05/10/2015 6:33 AM [facility] LYMPHOCYTES 26 24 - 44 % 05/10/2015 6:33 AM [facility] [employer] [facility] MONOCYTES 6 2 - 10 % 05/10/2015 6:33 AM [facility] [employer] [facility] EOSINOPHILS 4 0 - 7 % 05/10/2015 6:33 AM [facility] [employer] [facility] BASOPHILS 0 0 - 1 % 05/10/2015 6:33 AM [facility] NEUTROPHIL ABSOLUTE 6.62 2.00 - 8.00 K/uL 05/10/2015 6:33 AM [facility] LYMPHOCYTE ABSOLUTE 2.79 1.20 - 4.00 K/uL 05/10/2015 6:33 AM [facility] MONOCYTE ABSOLUTE 0.69(H) 0.10 - 0.60 K/uL 05/10/2015 6:33 AM [facility] EOSINOPHIL ABSOLUTE 0.38 0.00 - 0.70 K/uL 05/10/2015 6:33 AM [facility] BASOPHILS ABSOLUTE 0.02 0.00 - 0.20 K/uL 05/10/2015 6:33 AM [facility] IMMATURE GRANULOCYTES 4(H) 0 - 2 % 05/10/2015 6:33 AM [facility] IMMATURE GRANULOCYTES ABSOLUTE 0.42(H) 0.00 - 0.10 K/uL 05/10/2015 6:33 AM [facility] Blood Collection / Unknown 05/10/2015 4:35 AM DATA INTEGRATION ARCHITECT 05/10/2015 5:50 AM [facility] - 05/10/2015 6:33 AM DATA INTEGRATION ARCHITECT Smear reviewed. No WBC or PLT morphology abnormality noted. RBC Morphology Abnormal: 1+ Polychromasia us Magdi Crawford MD HEMATOLOGY ORDERABLES Final Result [facility] CLIA# [id number] [address] [place] [address] documented in this encounter Visit Diagnoses Not on filedocumented in this encounter
--- OUTSIDE RECORDS SUMMARY | 2025-03-14 05:29 | XMS_ITS | Clinical Summary ---
Author Organization [employer] [facility] Address [address] Scruggsn: Epic Prelude ADT [place] [address] Care Team Providers Care Groundskeeper Supervisor Name Role Phone Unavailable Primary Care Provider Unavailabl e Immunizations Immunization Administration Dates Next Due Hepatitis B Vaccine 01/12/2000 Influenza Seasonal Unspecified Formulation IM Social History Tobacco Use Types Packs/Day Years Used Date Smoking Tobacco: Never Assessed Comments Unknown Sex and Gender Information Value Date Recorded Sex Assigned at Not on file Legal Sex Female 4:17 AM REVIVAL CLERK Gender Identity Not on file Sexual [...]
--- OUTSIDE RECORDS SUMMARY | 2025-03-14 05:29 | XMS_ITS | Encounter Summary ---
Author Organization [employer] [facility] Address [address] [place] [address] Care Team Providers Care Lay Out And Detail Drafter Name Role Phone Unavailable Primary Care Provider Unavailabl e Encounter Details Date Type Department Care Team (Latest Contact Info) Description 12/16/1999 Outpatient Historical [facility] Gurwinder Felipe Jr., MD [address] [place] [phone] Unspecified adjustment reaction (Primary Dx); Depressive disorder, not elsewhere classified Social History Tobacco Use Types Packs/Day Years Used Date Smoking Tobacco: Never Assessed Comments Unknown Sex and Gender Information Value Date Recorded Sex Assigned at Not on file Legal Sex Female 4:17 AM TANK TENDER Gender Identity Not on file Sexual Orientation Not on file documented as of this encounter Plan of Treatment Not on file documented as of this encounter Visit Diagnoses Diagnosis Unspecified adjustment reaction- Primary Depressive disorder, not elsewhere classified documented in this encounter
--- OUTSIDE RECORDS SUMMARY | 2025-03-14 05:29 | XMS_ITS | Encounter Summary ---
Author Organization [facility] Address [address] [place] [address] Care Team Providers Care Label Maker Name Role Phone Unavailable Primary Care Provider Unavailabl e Encounter Details Date Type Department Care Team (Late st Contact Info) Description 03/10/2025 External Device Data ST[place] ABSTRACTION Provider, Abstract NO ADDRESS ON FILE Social History Tobacco Use Types Packs/Day Years [...] on file Legal Sex Female 9:48 AM PLYWOOD LAYUP LINE BACK FEEDER Gender Identity Not on file Sexual Orientation Not on file documented as of this encounter Plan of Treatment Not on file documented as of this encounter Visit Diagnoses Not on filedocumented in this encounter
--- OUTSIDE RECORDS SUMMARY | 2025-03-14 05:29 | XMS_ITS | Encounter Summary ---
Author Organization [employer] [facility] Address [address] [place] [address] Care Team Providers Care Tie Fastener Name Role Phone Unavailable Primary Care Provider Unavailabl e Encounter Details Date Type Department Care Team (Latest Contact Info) Description 03/03/1999 Outpatient Historical [facility] Matteo Inman, [place] [address] [place] [phone] Acute upper respiratory infections of unspecified site (Primary Dx); Unspecified asthma(493.90) Social History Tobacco Use Types Packs/Day Years Used Date Smoking Tobacco: Never Assessed Comments Unknown Sex and Gender Information Value Date Recorded Sex Assigned at Not on file Legal Sex Female 4:17 AM 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
--- OUTSIDE RECORDS SUMMARY | 2025-03-14 05:29 | XMS_ITS | Encounter Summary ---
Author Organization [employer] [facility] Address [address] [place] [address] Care Team Providers Care Wrapping Machine Operator Name Role Phone Unavailable Primary Care Provider Unavailabl e Encounter Details Date Type Department Care Team (Late st Contact Info) Description 04/29/2015 Lab Requisition [facility] Laboratory Services [address] [place] [address] Magdi Crawford MD [address] [place] [address] Social History Tobacco Use Types Packs/Day Years Used Date Smoking Tobacco: Never Assessed Comments Unknown Sex and Gender Information Value Date Recorded Sex Assigned at Not on file Legal Sex Female 4:17 AM GROUP ROOMS COORDINATOR Gender Identity Not on file Sexual Orientation Not on file documented as of this encounter Plan of Treatment Not on file documented as of this encounter Procedures Procedure Name Priority Date/Time Associated Diagnosis Comments CBC WITH DIFFERENTIAL Routine 04/29/2015 4:00 AM GROUP ROOMS COORDINATOR PHOSPHORUS Routine 04/29/2015 4:00 AM GROUP ROOMS COORDINATOR MAGNESIUM LEVEL Routine 04/29/2015 4:00 AM GROUP ROOMS COORDINATOR COMPREHENSIVE METABOLIC PANEL Routine 04/29/2015 4:00 AM GROUP ROOMS COORDINATOR documented in this encounter Results * (ABNORMAL) PHOSPHORUS (04/29/2015 4:00 AM GROUP ROOMS COORDINATOR) PHOSPHORUS 2.2(L) 2.5 - 4.9 mg/dL 04/29/2015 6:16 AM GROUP ROOMS COORDINATOR [facility] Blood Collection / Unknown 04/29/2015 4:00 AM GROUP ROOMS COORDINATOR 04/29/2015 5:24 AM GROUP ROOMS COORDINATOR Magdi Crawford MD CHEMISTRY ORDERABLES Final Result Performing Organization Address [facility] Co de Phone Number [facility] CLIA# [id number] [address] [place] [address] * MAGNESIUM LEVEL (04/29/2015 4:00 AM GROUP ROOMS COORDINATOR) Pathologist [facility] MAGNESIUM 1.8 1.8 - 2.4 mg/dL 04/29/2015 6:16 AM [facility] Blood Collection / Unknown 04/29/2015 4:00 AM GROUP ROOMS COORDINATOR 04/29/2015 5:24 AM GROUP ROOMS COORDINATOR us Magdi Crawford MD CHEMISTRY ORDERABLES Final Result Performing Organization Address [facility] Co de Phone Number [facility] CLIA# [id number] [address] [place] [address] * (ABNORMAL) CBC WITH DIFFERENTIAL (04/29/2015 4:00 AM GROUP ROOMS COORDINATOR) Pathologist [facility] WBC 8.9 4.8 - 10.8 K/uL 04/29/2015 5:45 AM [facility] RBC 2.53(L) 4.20 - 5.40 M/uL 04/29/2015 5:45 AM [facility] HEMOGLOBIN 7.3(L) 12.0 - 16.0 g/dL 04/29/2015 5:45 AM [facility] HEMATOCRIT 23.1(L) 36.0 - 46.0 % 04/29/2015 5:45 AM [facility] MCV 91.3 84.0 - 103.0 fL 04/29/2015 5:45 AM [facility] MCH 28.9 27.0 - 34.0 pg 04/29/2015 5:45 AM [facility] MCHC 31.6 30.0 - 35.0 g/dL 04/29/2015 5:45 AM [facility] RDW 16.4(H) 11.0 - 14.5 % 04/29/2015 5:45 AM [facility] RDW-STDEV 53.0 37.0 - 54.0 fL 04/29/2015 5:45 AM [facility] PLATELETS 640(H) 140 - 440 K/uL 04/29/2015 5:45 AM [facility] MPV 9.6 8.9 - 12.8 fL 04/29/2015 5:45 AM [facility] NEUTROPHILS 71 42 - 75 % 04/29/2015 5:45 AM [facility] LYMPHOCYTES 11(L) 24 - 44 % 04/29/2015 5:45 AM [facility] MONOCYTES 12(H) 2 - 10 % 04/29/2015 5:45 AM [facility] EOSINOPHILS 4 0 - 7 % 04/29/2015 5:45 AM [facility] BASOPHILS 1 0 - 1 % 04/29/2015 5:45 AM [facility] NEUTROPHIL ABSOLUTE 6.30 2.00 - 8.00 K/uL 04/29/2015 5:45 AM [facility] LYMPHOCYTE ABSOLUTE 1.00(L) 1.20 - 4.00 K/uL 04/29/2015 5:45 AM [facility] MONOCYTE ABSOLUTE 1.05(H) 0.10 - 0.60 K/uL 04/29/2015 5:45 AM [facility] EOSINOPHIL ABSOLUTE 0.38 0.00 - 0.70 K/uL 04/29/2015 5:45 AM [facility] BASOPHILS ABSOLUTE 0.05 0.00 - 0.20 K/uL 04/29/2015 5:45 AM [facility] IMMATURE GRANULOCYTES 1 0 - 2 % 04/29/2015 5:45 AM [facility] IMMATURE GRANULOCYTES ABSOLUTE 0.11(H) 0.00 - 0.10 K/uL 04/29/2015 5:45 AM [facility] Blood Collection / Unknown 04/29/2015 4:00 AM GROUP ROOMS COORDINATOR 04/29/2015 5:24 AM GROUP ROOMS COORDINATOR us Magdi Crawford MD HEMATOLOGY ORDERABLES Final Result [facility] CLIA# [id number] [facility] [place] [address] * (ABNORMAL) COMPREHENSIVE METABOLIC PANEL (04/29/2015 4:00 AM GROUP ROOMS COORDINATOR) SODIUM 140 136 - 145 mmol/L 04/29/2015 6:16 AM [facility] POTASSIUM 3.2(L) 3.5 - 5.1 mmol/L 04/29/2015 6:16 AM [facility] CHLORIDE 105 98 - 107 mmol/L 04/29/2015 6:16 AM [facility] CO2 27 21 - 32 mmol/L 04/29/2015 6:16 AM [facility] CALCIUM 7.5(L) 8.4 - 10.1 mg/dL 04/29/2015 6:16 AM [facility] BUN 16 7 - 17 mg/dL 04/29/2015 6:16 AM [facility] CREATININE 0.46(L) 0.55 - 1.02 mg/dL 04/29/2015 6:16 AM [facility] GLUCOSE 127(H) 74 - 106 mg/dL 04/29/2015 6:16 AM [facility] TOTAL PROTEIN 4.9(L) 6.4 - 8.2 g/dL 04/29/2015 6:16 AM [facility] ALBUMIN 1.4(L) 3.4 - 5.0 g/dL 04/29/2015 6:16 AM [facility] BILIRUBIN TOTAL 0.3 0.2 - 1.0 mg/dL 04/29/2015 6:16 AM [facility] ALKALINE PHOSPHATASE 64 25 - 100 U/L 04/29/2015 6:16 AM [facility] AST 10(L) 15 - 37 U/L 04/29/2015 6:16 AM [facility] ALT 8(L) 13 - 61 U/L 04/29/2015 6:16 AM [facility] GFR >60 >=60 mL/min/1. 73 sq meter 04/29/2015 6:16 AM [facility] Comment: eGFR has [...] mL/min/1. 73 sq meter 04/29/2015 6:16 AM [facility] ANION GAP 8 8 - 16 mmol/L 04/29/2015 6:16 AM [facility] Blood Collection / Unknown 04/29/2015 4:00 AM GROUP ROOMS COORDINATOR 04/29/2015 5:[address] [facility] us Magdi Crawford MD CHEMISTRY ORDERABLES Final Result [facility] CLIA# [id number] [address] [place] [address] documented in this encounter Visit Diagnoses Not on filedocumented in this encounter
--- OUTSIDE RECORDS SUMMARY | 2025-03-14 05:29 | XMS_ITS | Encounter Summary ---
Author Organization [employer] [facility] Address [address] [place] [address] Care Team Providers Care Property Portfolio Officer Name Role Phone Unavailable Primary Care Provider Unavailabl e Encounter Details Date Type Department Care Team (Latest Contact Info) Description 10/25/1999 Outpatient Historical [facility] Matteo Inman, [place] [address] [place] [phone] Unspecified essential hypertension (Primary Dx) Social History Tobacco Use Types Packs/Day Years Used Date Smoking Tobacco: Never Assessed Comments Unknown Sex and Gender Information Value Date Recorded Sex Assigned at Not on file Legal Sex Female 4: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
--- OUTSIDE RECORDS SUMMARY | 2025-03-14 05:29 | XMS_ITS | Encounter Summary ---
Author Organization [employer] [facility] Address [address] [place] [address] Care Team Providers Care Senior Medical Billing Specialist Name Role Phone Unavailable Primary Care Provider Unavailabl e Encounter Details Date Type Department Care Team (Latest Contact Info) Description 02/22/2000 Outpatient Historical [facility] Matteo Inman, Gurwinder Mora MD [address] [place] [phone] Need vaccination-viral disease (Primary Dx) Social History Tobacco Use Types Packs/Day Years Used Date Smoking Tobacco: Never Assessed Comments Unknown Sex and Gender Information Value Date Recorded Sex Assigned at Not on file Legal Sex Female 4:17 AM SPECIALIST ICU Gender Identity Not on file Sexual Orientation Not on file documented as of this encounter Plan of Treatment Not on file documented as of this encounter Visit Diagnoses Diagnosis Need vaccination-viral disease- Primary Need for prophylactic vaccination and inoculation against other viral diseases documented in this encounter
--- OUTSIDE RECORDS SUMMARY | 2025-03-14 05:29 | XMS_ITS | Encounter Summary ---
Author Organization [facility] Address [address] [place] [address] Care Team Providers Care Splicer Apprentice Name Role Phone Unavailable Primary Care Provider Unavailabl e Encounter Details Date Type Department Care Team (Late st Contact Info) Description 05/09/2015 Lab Requisition [facility] Laboratory Services [address] [place] [address] Magdi Crawford MD [address] [place] [address] Social History Tobacco Use Types Packs/Day Years Used Date Smoking Tobacco: Never Assessed Comments Unknown Sex and Gender Information Value Date Recorded Sex Assigned at Not on file Legal Sex Female 4:17 AM INSURANCE CLERK Gender Identity Not on file Sexual Orientation Not on file documented as of this encounter Plan of Treatment Not on file documented as of this encounter Procedures Procedure Name Priority Date/Time Associated Diagnosis Comments CBC WITHOUT DIFFERENTIAL Routine 05/09/2015 4:50 AM INSURANCE CLERK BASIC METABOLIC PANEL Routine 05/09/2015 4:50 AM INSURANCE CLERK documented in this encounter Results * (ABNORMAL) CBC WITHOUT DIFFERENTIAL (05/09/2015 4:50 AM INSURANCE CLERK) WBC 11.3(H) 4.8 - 10.8 K/uL 05/09/2015 6:00 AM INSURANCE CLERK [facility] RBC 3.06(L) 4.20 - 5.40 M/uL 05/09/2015 6:00 AM INSURANCE CLERK [facility] HEMOGLOBIN 8.3(L) 12.0 - 16.0 g/dL 05/09/2015 6:00 AM [facility] HEMATOCRIT 26.9(L) 36.0 - 46.0 % 05/09/2015 6:00 AM [facility] MCV 87.9 84.0 - 103.0 fL 05/09/2015 6:00 AM [facility] MCH 27.1 27.0 - 34.0 pg 05/09/2015 6:00 AM [facility] MCHC 30.9 30.0 - 35.0 g/dL 05/09/2015 6:00 AM [facility] PLATELETS 457(H) 140 - 440 K/uL 05/09/2015 6:00 AM [facility] MPV 10.4 8.9 - 12.8 fL 05/09/2015 6:00 AM [facility] RDW 16.5(H) 11.0 - 14.5 % 05/09/2015 6:00 AM [facility] RDW-STDEV 51.9 37.0 - 54.0 fL 05/09/2015 6:00 AM [facility] Blood Collection / Unknown 05/09/2015 4:50 AM INSURANCE CLERK 05/09/2015 5:47 AM INSURANCE CLERK us Magdi Crawford MD HEMATOLOGY ORDERABLES Final Result [id number] [address] [place] [address] * (ABNORMAL) BASIC METABOLIC PANEL (05/09/2015 4:50 AM INSURANCE CLERK) SODIUM 137 136 - 145 mmol/L 05/09/2015 6:38 AM [facility] POTASSIUM 4.6 3.5 - 5.1 mmol/L 05/09/2015 6:38 AM [facility] CHLORIDE 104 98 - 107 mmol/L 05/09/2015 6:38 AM [facility] CO2 27 21 - 32 mmol/L 05/09/2015 6:38 AM [facility] CALCIUM 8.1(L) 8.4 - 10.1 mg/dL 05/09/2015 6:38 AM [facility] BUN 18(H) 7 - 17 mg/dL 05/09/2015 6:38 AM [facility] CREATININE 0.47(L) 0.55 - 1.02 mg/dL 05/09/2015 6:38 AM [facility] GLUCOSE 93 74 - 106 mg/dL 05/09/2015 6:38 AM [facility] GFR >60 >=60 mL/min/1. 73 sq meter 05/09/2015 6:38 AM [facility] Comment: eGFR has not been [...] mL/min/1. 73 sq meter 05/09/2015 6:38 AM [facility] ANION GAP 6(L) 8 - 16 mmol/L 05/09/2015 6:38 AM [facility] Blood Collection / Unknown 05/09/2015 4:50 AM INSURANCE CLERK 05/09/2015 5:47 AM [facility] us Magdi Crawford MD CHEMISTRY ORDERABLES Final Result [facility] CLIA# [id number] [address] [place] [address] documented in this encounter Visit Diagnoses Not on filedocumented in this encounter
--- OUTSIDE RECORDS SUMMARY | 2025-03-14 05:29 | XMS_ITS | Encounter Summary ---
Author Organization [employer] [facility] Address [address] [place] [address] Care Team Providers Care Excavator Operator Name Role Phone Unavailable Primary Care Provider Unavailabl e Encounter Details Date Type Department Care Team (Latest Contact Info) Description 07/27/1999 Outpatient Historical [facility] Matteo Inman, Gurwinder Mora MD [address] [place] [phone] Unspecified essential hypertension (Primary Dx); Allergic rhinitis, cause unspecified Social History Tobacco Use Types Packs/Day Years Used Date Smoking Tobacco: Never Assessed Comments Unknown Sex and Gender Information Value Date Recorded Sex Assigned at Not on file Legal Sex Female 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
--- OUTSIDE RECORDS SUMMARY | 2025-03-14 05:29 | XMS_ITS | Encounter Summary ---
Author Organization [facility] Address [address] [place] [address] Care Team Providers Care Cement Tester Assistant Name Role Phone Unavailable Primary Care Provider Unavailabl e Encounter Details Date Type Department Care Team (Late st Contact Info) Description 05/03/2015 Lab Requisition [facility] Laboratory Services [address] [place] [address] [place] [address] Magdi Crawford MD [address] [place] [address] Social History Tobacco Use Types Packs/Day Years Used Date Smoking Tobacco: Never Assessed Comments Unknown Sex and Gender Information Value Date Recorded Sex Assigned at Not on file Legal Sex Female 4:17 AM POWER PLANT 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 Gender Identity Not on file Sexual Orientation Not on file documented as of this encounter Plan of Treatment Not on file documented as of this encounter Procedures Procedure Name Priority Date/Time Associated Diagnosis Comments CBC WITH DIFFERENTIAL Routine 05/03/2015 3:50 AM POWER PLANT MECHANIC VITAMIN D 25 HYDROXY Routine 05/03/2015 3:50 AM POWER PLANT MECHANIC PHOSPHORUS Routine 05/03/2015 3:50 AM POWER PLANT MECHANIC PTH INTACT Routine 05/03/2015 3:50 AM POWER PLANT MECHANIC MAGNESIUM LEVEL Routine 05/03/2015 3:50 AM POWER PLANT MECHANIC COMPREHENSIVE METABOLIC PANEL Routine 05/03/2015 3:50 AM POWER PLANT MECHANIC documented in this encounter Results * (ABNORMAL) VITAMIN D 25 HYDROXY (05/03/2015 3:50 AM POWER PLANT MECHANIC) VITAMIN D TOTAL (25OH) 14(L) 30 - 100 ng/ml 05/03/2015 6:41 AM POWER PLANT MECHANIC [facility] Blood Collection / Unknown 05/03/2015 3:50 AM POWER PLANT MECHANIC 05/03/2015 5:45 AM POWER PLANT MECHANIC Narrative [facility] - 05/03/2015 6:41 AM POWER PLANT MECHANIC Interpretive Data Chart: Deficient: 0 - 20 ng/ml Insufficient: 21 - 29 ng/ml Sufficient: 30 - 100 ng/ml Increased Risk of Hypercalciuria: >100 ng/ml Toxic: >150 ng/ml Magdi Crawford MD CHEMISTRY ORDERABLES Final Result Performing Organization Address [facility] de Phone Number [facility] CLIA# [id number] [address] [place] [address] * PTH INTACT (05/03/2015 3:50 AM [facility]) Pathologist [facility] PTH INTACT 68.3 14.0 - 72.0 pg/mL 05/03/2015 6:32 AM [facility] Blood Collection / Unknown 05/03/2015 3:50 AM POWER PLANT MECHANIC 05/03/2015 5:45 AM POWER PLANT MECHANIC Magdi Crawford MD CHEMISTRY ORDERABLES Final Result Performing Organization Address [facility] Co de Phone Number [facility] CLIA# [id number] [address] [place] [address] * PHOSPHORUS (05/03/2015 3:50 AM POWER PLANT MECHANIC) Pathologist [facility] PHOSPHORUS 2.5 2.5 - 4.9 mg/dL 05/03/2015 6:38 AM [facility] Blood Collection / Unknown 05/03/2015 3:50 AM POWER PLANT MECHANIC 05/03/2015 5:45 AM POWER PLANT MECHANIC us Magdi Crawford MD CHEMISTRY ORDERABLES Final Result Performing Organization Address [facility]/ZIP Co de Phone Number [facility] CLIA# [id number] [address] [place] [address] * MAGNESIUM LEVEL (05/03/2015 3:50 AM POWER PLANT MECHANIC) Pathologist [facility] MAGNESIUM 1.8 1.8 - 2.4 mg/dL 05/03/2015 6:38 AM [facility] Blood Collection / Unknown 05/03/2015 3:50 AM POWER PLANT MECHANIC 05/03/2015 5:45 AM POWER PLANT MECHANIC Magdi Crawford MD CHEMISTRY ORDERABLES Final Result Performing Organization Address [facility] de Phone Number [facility] CLIA# [id number] [address] [place] [address] * (ABNORMAL) CBC WITH DIFFERENTIAL (05/03/2015 3:50 AM POWER PLANT MECHANIC) [facility] WBC 10.1 4.8 - 10.8 K/uL 05/03/2015 6:00 AM [facility] RBC 2.71(L) 4.20 - 5.40 M/uL 05/03/2015 6:00 AM [facility] HEMOGLOBIN 7.5(L) 12.0 - 16.0 g/dL 05/03/2015 6:00 AM [facility] HEMATOCRIT 24.1(L) 36.0 - 46.0 % 05/03/2015 6:00 AM [facility] MCV 88.9 84.0 - 103.0 fL 05/03/2015 6:00 AM [facility] MCH 27.7 27.0 - 34.0 pg 05/03/2015 6:00 AM [facility] MCHC 31.1 30.0 - 35.0 g/dL 05/03/2015 6:00 AM [facility] RDW 16.4(H) 11.0 - 14.5 % 05/03/2015 6:00 AM [facility] RDW-STDEV 52.8 37.0 - 54.0 fL 05/03/2015 6:00 AM [facility] PLATELETS 409 140 - 440 K/uL 05/03/2015 6:00 AM [facility] MPV 9.9 8.9 - 12.8 fL 05/03/2015 6:00 AM [facility] NEUTROPHILS 73 42 - 75 % 05/03/2015 6:00 AM [facility] LYMPHOCYTES 13(L) 24 - 44 % 05/03/2015 6:00 AM [facility] MONOCYTES 10 2 - 10 % 05/03/2015 6:00 AM [facility] EOSINOPHILS 4 0 - 7 % 05/03/2015 6:00 AM [facility] BASOPHILS 0 0 - 1 % 05/03/2015 6:00 AM [facility] NEUTROPHIL ABSOLUTE 7.39 2.00 - 8.00 K/uL 05/03/2015 6:00 AM [facility] LYMPHOCYTE ABSOLUTE 1.28 1.20 - 4.00 K/uL 05/03/2015 6:00 AM [facility] MONOCYTE ABSOLUTE 1.01(H) 0.10 - 0.60 K/uL 05/03/2015 6:00 AM [facility] EOSINOPHIL ABSOLUTE 0.35 0.00 - 0.70 K/uL 05/03/2015 6:00 AM [facility] BASOPHILS ABSOLUTE 0.03 0.00 - 0.20 K/uL 05/03/2015 6:00 AM [facility] IMMATURE GRANULOCYTES 1 0 - 2 % 05/03/2015 6:00 AM [facility] IMMATURE GRANULOCYTES ABSOLUTE 0.07 0.00 - 0.10 K/uL 05/03/2015 6:00 AM [facility] Blood Collection / Unknown 05/03/2015 3:50 AM [facility] 05/03/2015 5:45 AM [facility] us Magdi Crawford MD HEMATOLOGY ORDERABLES Final Result [facility] CLIA# [id number] [facility] [place] [address] * (ABNORMAL) COMPREHENSIVE METABOLIC PANEL (05/03/2015 3:50 AM POWER PLANT MECHANIC) SODIUM 140 136 - 145 mmol/L 05/03/2015 6:41 AM [facility] POTASSIUM 3.7 3.5 - 5.1 mmol/L 05/03/2015 6:41 AM [facility] CHLORIDE 105 98 - 107 mmol/L 05/03/2015 6:41 AM [facility] CO2 30 21 - 32 mmol/L 05/03/2015 6:41 AM [facility] CALCIUM 7.7(L) 8.4 - 10.1 mg/dL 05/03/2015 6:41 AM [facility] BUN 14 7 - 17 mg/dL 05/03/2015 6:41 AM [facility] CREATININE 0.38(L) 0.55 - 1.02 mg/dL 05/03/2015 6:41 AM [facility] GLUCOSE 126(H) 74 - 106 mg/dL 05/03/2015 6:41 AM [facility] TOTAL PROTEIN 5.4(L) 6.4 - 8.2 g/dL 05/03/2015 6:41 AM [facility] ALBUMIN 1.6(L) 3.4 - 5.0 g/dL 05/03/2015 6:41 AM [facility] BILIRUBIN TOTAL 0.5 0.2 - 1.0 mg/dL 05/03/2015 6:41 AM [facility] ALKALINE PHOSPHATASE 69 25 - 100 U/L 05/03/2015 6:41 AM [facility] AST 10(L) 15 - 37 U/L 05/03/2015 6:41 AM [facility] ALT 9(L) 13 - 61 U/L 05/03/2015 6:41 AM [facility] [employer] [facility] GFR >60 >=60 mL/min/1. 73 sq meter 05/03/2015 6:41 AM [facility] [employer] [facility] Comment: eGFR [...] mL/min/1. 73 sq meter 05/03/2015 6:41 AM [facility] ANION GAP 5(L) 8 - 16 mmol/L 05/03/2015 6:41 AM [facility] Blood Collection / Unknown 05/03/2015 3:50 AM POWER PLANT MECHANIC 05/03/2015 5:45 AM POWER PLANT MECHANIC us Magdi Crawford MD CHEMISTRY ORDERABLES Final Result [facility] CLIA# [id number] [facility] [place] [address] documented in this encounter Visit Diagnoses Not on filedocumented in this encounter
--- OUTSIDE RECORDS SUMMARY | 2025-03-14 05:29 | XMS_ITS | Clinical Summary ---
Author Organization [facility] Address [address] [place] [address] Phone Care Team Providers Care Loan Originator Name Role Phone Unavailable Primary Care Provider [...] Encounters Date Type Department Care Team Description 03/10/2025 External Device Data ST[facility] ABSTRACTION Provider, Abstract 03/03/2025 External Device Data [facility] ABSTRACTION Provider, Abstract 02/24/2025 External Device Data [facility] ABSTRACTION Provider, Abstract 01/30/2025 Telephone [facility] [address] [facility] [address] [place] [address] Nuha Gibbs 01/27/2025 External Device Data [facility] ABSTRACTION Provider, Abstract [...] on file Legal Sex Female 9:48 AM SHIPS OR BARGES LOADER Gender Identity Not on file Sexual Orientation Not on file Last Filed Vital Signs Vital Sign Reading Time Taken Comments Blood Pressure 174/80 04/22/2024 12:15 PM SHIPS OR BARGES LOADER Pulse 70 04/22/2024 4:45 PM SHIPS OR BARGES LOADER Temperature 37 C (98.6 F) 04/22/2024 11:23 AM SHIPS OR BARGES LOADER Respiratory Rate 19 04/22/2024 4:45 PM SHIPS OR BARGES LOADER Oxygen Saturation 94% 04/22/2024 4:45 PM SHIPS OR BARGES LOADER Inhaled Oxygen Concentration - - Weight 55.3 kg (122 lb) 04/21/2024 11:20 PM SHIPS OR BARGES LOADER Height 152.4 cm (5') 04/19/2024 2:56 AM SHIPS OR BARGES LOADER Body Mass Index 23.83 04/19/2024 2:56 AM SHIPS OR BARGES LOADER Plan of Treatment Health Maintenance Due Date Last Done Comments DTAP/TDAP/TD VACCINES (1 - Tdap) 1965 PNEUMOCOCCAL VACCINE 50+ YEA RS (1 of 1 - PCV) 1996 ZOSTER VACCINE (1 of 2) 1996 OSTEOPOROSIS SCREENING 12/22/2011 RSV VACCINE (60+ or ) (1 - 1-dose 75+ series) 2021 INFLUENZA VACCINE (#1) 2024 01/09/2022, 1999 Medical Devices Implanted Type Area Environmental Health Nurse Device Identifier Shelf Expiration Date Model / Serial / Lot Defib Icd Needham Xt Mri [id number] Dual Chmbr Surescan Cdmi1x5 - [id number] Implanted:Qty: 1 on 04/21/2024 by Cristel Eagle MD at [facility] Defibrillator N/A: Chest Wall [employer]- CARD RHYTHM MGMT [id number] 08/06/2025 [id number] / [id number] / Lead Pacing Capsure Fix Novus 45cm [id number] - Csc - [id number] Implanted:Qty: 1 on 04/21/2024 by Cristel Eagle MD at [facility] Lead Left: Chest Wall [employer]- CRM - BULK BUY [id number] 01/02/2026 [id number] / [id number] / Lead Sprint Quattro Secure-S 55cm [id number] - Csc - [id number] Implanted:Qty: 1 on 04/21/2024 by Cristel Eagle MD at [facility] Lead Left: Chest Wall [employer]- CRM - BULK BUY [id number] 02/21/2025 [id number] / [id number] / [place] [address] [place] [id number] RX [employer] RX Member Subscriber Plan / [...] Advance Directives For more information, please contact: [phone] * Full Code (Latest Code Status on File) Date Activated Date Inactivated Comments 04/21/2024 5:10 PM 04/22/2024 7:07 PM * Full Code Date Activated Date Inactivated Comments 04/19/2024 3:01 AM 04/21/2024 5:10 PM
--- OUTSIDE RECORDS SUMMARY | 2025-03-14 05:29 | XMS_ITS | Encounter Summary ---
Author Organization [employer] [facility] Address [address] [place] [address] Care Team Providers Care Club Former Name Role Phone Unavailable Primary Care Provider Unavailabl e Encounter Details Date Type Department Care Team (Latest Contact Info) Description 04/21/1999 Outpatient Historical [facility] Matteo Inman, [place] [address] [place] [phone] Acute sinusitis, unspecified (Primary Dx) Social History Tobacco Use Types Packs/Day Years Used Date Smoking Tobacco: Never Assessed Comments Unknown Sex and Gender Information Value Date Recorded Sex Assigned at Not on file Legal Sex Female 4:17 AM SOAP WORKER Gender Identity Not on file Sexual Orientation Not on file documented as of this encounter Plan of Treatment Not on file documented as of this encounter Visit Diagnoses Diagnosis Acute sinusitis, unspecified- Primary documented in this encounter
--- OUTSIDE RECORDS SUMMARY | 2025-03-14 05:29 | XMS_ITS | Encounter Summary ---
Author Organization [facility] Address [address] [place] [address] Care Team Providers Care Oracle Solutions Architect Name Role Phone Unavailable Primary Care Provider Unavailabl e Encounter Details Date Type Department Care Team (Late st Contact Info) Description 05/05/2015 Lab Requisition [facility] Laboratory Services [address] [place] [address] Magdi Crawford MD [address] [place] [address] Social History Tobacco Use Types Packs/Day Years Used Date Smoking Tobacco: Never Assessed Comments Unknown Sex and Gender Information Value Date Recorded Sex Assigned at Not on file Legal Sex Female 4:17 AM SCALP TREATMENT OPERATOR Gender Identity Not on file Sexual Orientation Not on file documented as of this encounter Plan of Treatment Not on file documented as of this encounter Visit Diagnoses Not on filedocumented in this encounter
--- OUTSIDE RECORDS SUMMARY | 2025-03-14 05:29 | XMS_ITS | Encounter Summary ---
Author Organization [employer] [facility] Address [address] [place] [address] Care Team Providers Care Incinerator Operator Name Role Phone Unavailable Primary Care Provider Unavailabl e Encounter Details Date Type Department Care Team (Late st Contact Info) Description 05/06/2015 Lab Requisition [facility] [address] [place] [address] [place] [address] Magdi Crawford MD [address] [place] [address] Social History Tobacco Use Types Packs/Day Years Used Date Smoking Tobacco: Never Assessed Comments Unknown Sex and Gender Information Value Date Recorded Sex Assigned at Not on file Legal 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 Gender Identity Not on file Sexual Orientation Not on file documented as of this encounter Plan of Treatment Not on file documented as of this encounter Procedures Procedure Name Priority Date/Time Associated Diagnosis Comments CBC WITH DIFFERENTIAL Routine 05/06/2015 3:10 AM TEA BAG MACHINE TENDER PHOSPHORUS Routine 05/06/2015 3:10 AM TEA BAG MACHINE TENDER MAGNESIUM LEVEL Routine 05/06/2015 3:10 AM TEA BAG MACHINE TENDER COMPREHENSIVE METABOLIC PANEL Routine 05/06/2015 3:10 AM TEA BAG MACHINE TENDER documented in this encounter Results * PHOSPHORUS (05/06/2015 3:10 AM TEA BAG MACHINE TENDER) PHOSPHORUS 3.3 2.5 - 4.9 mg/dL 05/06/2015 6:13 AM TEA BAG MACHINE TENDER [facility] [employer] [facility] Blood Collection / Unknown 05/06/2015 3:10 AM TEA BAG MACHINE TENDER 05/06/2015 5:15 AM TEA BAG MACHINE TENDER us Magdi Crawford MD CHEMISTRY ORDERABLES Final Result Performing Organization Address [facility] Co de Phone Number [facility] CLIA# [id number] [address] [place] [address] * MAGNESIUM LEVEL (05/06/2015 3:10 AM TEA BAG MACHINE TENDER) Pathologist [facility] MAGNESIUM 1.9 1.8 - 2.4 mg/dL 05/06/2015 6:13 AM [facility] Blood Collection / Unknown 05/06/2015 3:10 AM TEA BAG MACHINE TENDER 05/06/2015 5:15 AM TEA BAG MACHINE TENDER us Magdi Crawford MD CHEMISTRY ORDERABLES Final Result Performing Organization Address [facility] Co de Phone Number [facility] CLIA# [id number] [address] [place] [address] * (ABNORMAL) CBC WITH DIFFERENTIAL (05/06/2015 3:10 AM TEA BAG MACHINE TENDER) [facility] WBC 9.2 4.8 - 10.8 K/uL 05/06/2015 5:55 AM [facility] RBC 3.06(L) 4.20 - 5.40 M/uL 05/06/2015 5:55 AM [facility] HEMOGLOBIN 8.3(L) 12.0 - 16.0 g/dL 05/06/2015 5:55 AM [facility] HEMATOCRIT 27.0(L) 36.0 - 46.0 % 05/06/2015 5:55 AM [facility] MCV 88.2 84.0 - 103.0 fL 05/06/2015 5:55 AM [facility] MCH 27.1 27.0 - 34.0 pg 05/06/2015 5:55 AM [facility] MCHC 30.7 30.0 - 35.0 g/dL 05/06/2015 5:55 AM [facility] RDW 16.4(H) 11.0 - 14.5 % 05/06/2015 5:55 AM [facility] RDW-STDEV 52.1 37.0 - 54.0 fL 05/06/2015 5:55 AM [facility] PLATELETS 435 140 - 440 K/uL 05/06/2015 5:55 AM [facility] MPV 10.7 8.9 - 12.8 fL 05/06/2015 5:55 AM [facility] NEUTROPHILS 69 42 - 75 % 05/06/2015 5:55 AM [facility] LYMPHOCYTES 16(L) 24 - 44 % 05/06/2015 5:55 AM [facility] [employer] [facility] MONOCYTES 8 2 - 10 % 05/06/2015 5:55 AM [facility] [employer] [facility] EOSINOPHILS 5 0 - 7 % 05/06/2015 5:55 AM [facility] BASOPHILS 0 0 - 1 % 05/06/2015 5:55 AM [facility] NEUTROPHIL ABSOLUTE 6.34 2.00 - 8.00 K/uL 05/06/2015 5:55 AM [facility] LYMPHOCYTE ABSOLUTE 1.48 1.20 - 4.00 K/uL 05/06/2015 5:55 AM [facility] MONOCYTE ABSOLUTE 0.76(H) 0.10 - 0.60 K/uL 05/06/2015 5:55 AM [facility] [employer] [facility] EOSINOPHIL ABSOLUTE 0.49 0.00 - 0.70 K/uL 05/06/2015 5:55 AM [facility] BASOPHILS ABSOLUTE 0.03 0.00 - 0.20 K/uL 05/06/2015 5:55 AM [facility] IMMATURE GRANULOCYTES 1 0 - 2 % 05/06/2015 5:55 AM [facility] [employer] [facility] IMMATURE GRANULOCYTES ABSOLUTE 0.12(H) 0.00 - 0.10 K/uL 05/06/2015 5:55 AM [facility] [employer] [facility] Blood Collection / Unknown 05/06/2015 3:10 AM TEA BAG MACHINE TENDER 05/06/2015 5:15 AM TEA BAG MACHINE TENDER us Magdi Crawford MD HEMATOLOGY ORDERABLES Final Result [facility] CLIA# [id number] [facility] [place] [address] * (ABNORMAL) COMPREHENSIVE METABOLIC PANEL (05/06/2015 3:10 AM TEA BAG MACHINE TENDER) Pathologist [facility] SODIUM 140 136 - 145 mmol/L 05/06/2015 6:13 AM [facility] POTASSIUM 3.8 3.5 - 5.1 mmol/L 05/06/2015 6:13 AM [facility] CHLORIDE 103 98 - 107 mmol/L 05/06/2015 6:13 AM [facility] CO2 30 21 - 32 mmol/L 05/06/2015 6:13 AM [facility] CALCIUM 7.9(L) 8.4 - 10.1 mg/dL 05/06/2015 6:13 AM [facility] BUN 20(H) 7 - 17 mg/dL 05/06/2015 6:13 AM [facility] CREATININE 0.51(L) 0.55 - 1.02 mg/dL 05/06/2015 6:13 AM [facility] GLUCOSE 144(H) 74 - 106 mg/dL 05/06/2015 6:13 AM [facility] TOTAL PROTEIN 6.0(L) 6.4 - 8.2 g/dL 05/06/2015 6:13 AM [facility] ALBUMIN 1.8(L) 3.4 - 5.0 g/dL 05/06/2015 6:13 AM [facility] BILIRUBIN TOTAL 0.2 0.2 - 1.0 mg/dL 05/06/2015 6:13 AM [facility] ALKALINE PHOSPHATASE 127(H) 25 - 100 U/L 05/06/2015 6:13 AM [facility] AST 43(H) 15 - 37 U/L 05/06/2015 6:13 AM [facility] ALT 37 13 - 61 U/L 05/06/2015 6:13 AM [facility] GFR >60 >=60 mL/min/1. 73 sq meter 05/06/2015 6:13 AM [facility] Comment: eGFR has not been validated [...] mL/min/1. 73 sq meter 05/06/2015 6:13 AM [facility] ANION GAP 7(L) 8 - 16 mmol/L 05/06/2015 6:13 AM [facility] Blood Collection / Unknown 05/06/2015 3:10 AM TEA BAG MACHINE TENDER 05/06/2015 5:15 AM TEA BAG MACHINE TENDER us Magdi Crawford MD CHEMISTRY ORDERABLES Final Result [facility] CLIA# [id number] [address] [place] [id number] documented in this encounter Visit Diagnoses Not on filedocumented in this encounter
--- OUTSIDE RECORDS SUMMARY | 2025-03-14 05:30 | XMS_ITS | Encounter Summary ---
Author Organization [facility] Address [address] [place] [address] Care Team Providers Care Recruiting Operations Consultant Name Role Phone Unavailable Primary Care Provider Unavailabl e Encounter Details Date Type Department Care Team (Latest Contact Info) Description 05/20/2001 Outpatient Historical 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
--- OUTSIDE RECORDS SUMMARY | 2025-03-14 05:30 | XMS_ITS | Encounter Summary ---
Author Organization [employer] [facility] Address [address] [place] [address] Care Team Providers Care Shoe Fitter Name Role Phone Unavailable Primary Care Provider Unavailabl e Encounter Details Date Type Department Care Team (Latest Contact Info) Description 08/05/2001 Outpatient Historical [facility] Matteo Inman, [place] [address] [place] [phone] ACUTE SINUSITIS NOS (Primary Dx) Social History Tobacco Use Types Packs/Day Years Used Date Smoking Tobacco: Never Assessed Comments Unknown Sex and Gender Information Value Date Recorded Sex Assigned at Not on file Legal Sex Female 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
--- OUTSIDE RECORDS SUMMARY | 2025-03-14 05:30 | XMS_ITS | Patient Health Record ---
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 Name Role Phone Kaylin Chávez Primary Care Provider Tito Alberto Unavailable Allergies Allergen (clinical drug ingredient) Drug/Non Drug Allergy documented on EMR Reaction Allergy Type Onset Date Status Substance with sulfonamide structure and antibacterial mechanism of action (substance) Sulfa Antibiotics Unknown Drug Allergy 05/27/2003 Active Reason For Referral Reason Eval and Treat Diagnosis 1 Chronic pain (G89.29 ) Diagnosis 2 custodial (current) use of opiate analgesic (Z79.891) Referring Provider First Name Lynda Referring Provider Last Name Abigail Referring Provider Speciality Family Med icine [facility] [place] Referred Provider Ruchi Wagner Referred Address [address] [facility],[place],[address], Referred Provider Specialty Pain Medicin e General Notes Prudence Morris 10:11:37 AM >atc pt, lvm, Mer[facility] Asencio 11/03/2024 01:01:16 PM CDT > left v/m, Verito Schwab 11/12/2024 09:20:29 AM CDT > ATC, LVMArturo Twyla A 12/08/2024 12:53:52 PM CDT > atc pt, lvmArturo Twyla A 12/08/2024 01:46:18 PM CDT > called patient, she declined referral Referral Priority Routine Medications Medication SIG (Take, Route, Frequency, Duration) Notes Start Date End Date Status Nasal Maxwell 0.05 % Solution 2 sprays in each nostril as needed Nasally Twice a day Unknown Metoprolol Tartrate 50 MG Tablet TAKE 1 TABLET TWICE DAILY; Duration: 90 Unknown Levothyroxine Sodium 75 MCG Tablet TAKE 1 TABLET BY MOUTH EVERY MORNING ON A EMPTY STOMACH ONCE DAILY; Duration: 90 Active Pregabalin 225 mg Capsule TAKE ONE CAPSULE BY MOUTH EVERY EVENING 1 to 3 hours BEFORE bedtime; Duration: 90 09/22/2022 Unknown busPIRone HCl 5 MG Tablet 1 tablet Orally Three times a day; Duration: 30 days 05/21/2019 Unknown rOPINIRole HCl 0.5 MG Tablet TAKE 1 TABLET BY MOUTH TWICE DAILY; Duration: 90 Active Pantoprazole Sodium 40 MG Tablet Delayed Release TAKE 1 TABLET TWICE DAILY; Duration: 90 Active Zenpep [id number] UNIT Capsule Delayed Release Particles as directed Orally; Duration: 30 days Active Clopidogrel Bisulfate 75 MG Tablet 1 tablet Orally Once a day; Duration: 30 day(s) Unknown Requip 0.5 MG Tablet 1 tablet Orally twice a day; Duration: 90 days Active Breo Ellipta 100-25 MCG/INH Aerosol Powder Breath Activated 1 puff Inhalation Once a day Unknown Acidophilus - Tablet as directed Orally Unknown Famotidine 40 MG Tablet TAKE 1 TABLET BY MOUTH NEEDED TWICE DAILY; Duration: 30 Active Mirtazapine 30 MG Tablet TAKE 1 TABLET AT BEDTIME; Duration: 90 Active Tamsulosin HCl 0.4 MG Capsule Extended Release 24 Hour 1 capsule Orally Once a day; Duration: 30 day(s) Unknown Imodium A-D 1 MG/5ML Liquid 10 ml as needed Orally Four times a day Unknown Ferrous Gluconate 324 (38 Fe) MG Tablet TAKE ONE TABLET BY MOUTH TWICE DAILY; Duration: 45 Active Lyrica 225 MG Capsule 1 capsule Orally twice a day; Duration: 30 days 06/21/2023 Active B12 Fast Dissolve 5000 MCG Tablet Disintegrating as directed Orally Unknown Maalox 225-200 MG/5ML Suspension as directed Orally Unknown Xtampza ER 18 mg Capsule ER 12 Hour Abuse-Deterrent TAKE ONE CAPSULE BY MOUTH with food EVERY TWELVE HOURS FOR 30 DAYS; Duration: 30 08/17/2023 Active Symbicort 160-4.5 MCG/ACT Aerosol INHALE TWO PUFFS BY MOUTH TWICE DAILY; Duration: 30 Unknown Atorvastatin Calcium 40 mg Tablet TAKE ONE TABLET BY MOUTH EVERY DAY; Duration: 90 Active Multi Vitamin - Tablet 1 tablet Orally O nce a day Unknown Fluticasone Propionate 50 MCG/DOSE Suspension 2 spray in each nostril Nasally Once a day; Duration: 30 day(s) Unknown Nitrostat 0.4 MG Tablet Sublingual 1 tablet Sublingual may repeat every 5 mins max of 3 doses in 15 mins Unknown Questran Light 4 GM/DOSE Powder 1 scoop in water Orally three times a day; Duration: 30 day(s) Unknown Bisacodyl 5 MG Tablet Delayed Release 2 tablet as needed Orally Once a day; Duration: 30 day(s) Unknown Lisinopril 20 MG Tablet 1 tablet Orally twice daily; Duration: 30 day(s) Unknown oxyCODONE HCl 5 MG Tablet 1-2 tablet as needed Orally every 6 hrs; Duration: 30 days 02/17/2025 03/18/2025 Active Montelukast Sodium 10 MG Tablet 1 tablet Orally Once a day; Duration: 30 day(s) Unknown Triamterene-HCTZ 37.5-25 MG Tablet 1/2 tab(s) po qd Oral; Duration: 30 Triamterene/H ydrochlorothi azide 37.5mg/25mg Tablet 1/2 tab(s) po qd #90 (Ninety) tablet(s) 09/29/2013 Unknown Furosemide 20 MG Tablet 1 tablet Orally Once a day; Duration: 10 days 02/01/2023 Unknown Montelukast Sodium 10 MG Tablet 1 tablet Orally Once a day; Duration: 90 days 04/06/2022 Unknown Simvastatin 40 MG Tablet 1 tablet in the evening Orally Once a day Unknown Prolia 60 MG/ML Solution Prefilled Syringe as directed Subcutaneous once; Duration: 1 days 02/01/2023 Unknown Lomotil 2.5-0.025 MG Tablet 1 tablet as needed Orally two times daily Unknown ALPRAZolam 0.25 MG Tablet 1 tablet Orally daily prn anxiety; Duration: 30 days Unknown Cephalexin 250 MG Capsule 1 capsule Orally Twice a day Unknown Ventolin HFA 90 MCG/ACT Aerosol Solution 2 puffs as needed Inhalation 4 times daily Unknown Potassium Chloride 20 MEQ Tablet Extended Release 1 tablet Orally twice a day Unknown Silver sulfADIAZINE 1 % Cream 1 application Externally Once a day Unknown Immunizations Vaccine Route Administration Date Status Comme nts Flu vaccine no Preserv 3 and > IM Intramuscular 12/30/2010 Administered Flu vaccine no Preserv 3 and > Unknown 12/28/2011 Administered Influenza (whole), CPT 26767 Inactive Unknown 01/07/2018 Administered Pneumococcal polysaccharide PPV23 Unknown 12/28/2011 Administered Social History Tobacco Use: Social History Observation Description Date Details (start date - stop date) Never Smoker NA - NA Social History Drugs/Alcohol: Social Info Question Answer Notes Alcohol Screen (Audit-C) Did you have a drink containing alcohol in the past year? No Points 0 Interpretation Negative Drugs Have you used drugs other than those for medical reasons in the past 12 months? No Household: Social Info Question Answer Notes Household Level of education: finished college Tobacco Use: Social Info Question Answer Notes xTobacco Use/Smoking Are you a nonsmoker Additional Details Category Social Info Options Details Drugs/Alcohol: Do you smoke marijuana? De nies Do you drink alcohol? No Problems Problem Type SNOMED Code ICD Code Onset Dates Problem Status W/U Status Risk Notes Problem Lumbosacral spondylosis without myelopathy (51783362) Other spondylosis with radiculopathy, lumbar region (M47.26) Active confirmed Problem Female urinary stres s incontinence (24523685) Stress incontinence in female (N39.3) Active confirmed Problem Anxiety (24436795) Situational a nxiety (F41.8) Active confirmed Problem Nummular eczema (34740011) Nummular eczema (L30.0) Active confirmed Problem Chronic pain (33984353) Chronic pain (G89.29) Active confirmed Problem Skin sensation disturbance (51161806) Leg numbness (R20.0) Active confirmed Problem Hypertension (98265580) Hypertension (I10) Active confirmed Problem Postmenopausal osteoporosis (840886438) 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) Active confirmed Problem Allergic rhinitis caused by animal hair and dander (664585483126389) Cat allergy, airborne (J30.81) Active confirmed Problem Generalized anxiety disorder (91312995) Generalized anxiety disorder (300.02) 2005 Active confirmed [id number]- Problem Lumbosacral spondylosis without myelopathy (88500102) 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 Active confirmed [id number]- Problem 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 Active confirmed Jignesh-[id number] [id number]- Problem Generalized osteoarthritis (947301475) Generalized osteoarthritis, 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) 2009 Active confirmed [id number]- Problem Mitral valve regurgitation (13172301) Mitral valve regurgitation (424.0) 2016 Active confirmed [id number]- Problem Postmenopausal osteoporosis (239302048) Postmenopausal osteoporosis (733.01) 2012 Active confirmed Jignesh-[id number] [id number]- Problem Congenital anoma ly of foot, 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 Active confirmed Jignesh-[id number] [id number]- Problem 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 Active confirmed Jignesh-[id number] [id number]- Problem Obsessive-compulsive disorder (925084636) OCD (300.3) 2011 Active confirmed Jignesh-[id number] [id number]- Problem Adjustment disorder with depressed mood (15743918) Adjustment disorder with depressed mood (309.0) 2004 Problem resolved confirmed [id number]-[id number] [id number]- Problem Hypocalcemia (6572367) Hypocalcemia (275.41) 2018 Problem resolved confirmed Jignesh-[id number] [id number]- Problem Dehydration (02528359) Dehydration (276.51) 2017 Problem resolved confirmed [id number]-[id number] [id number]- Problem Anemia (415801440) Unspecified a nemia (285.9) 2018 Problem resolved confirmed Jignesh-[id number] [id number]- Problem Agoraphobia without history of panic disorder (53988038) Agoraphobia without mention of panic attacks (300.22) 2004 Problem resolved confirmed Jignesh-[id number]- Problem Toxic encephalopathy (62792086) Toxic encephalopathy (349.82) 2018 Problem resolved confirmed Jignesh-[id number] [id number]- Problem Acute sinusitis (65787356) Acute sinusitis, unspecified (461.9) 2003 Problem resolved confirmed Jignesh-[id number] [id number]- Problem Senile osteoporosis (13724506) Senile osteoporosis (733.01) 2009 Problem resolved confirmed Jignesh-[id number] [id number]- Problem Weight decreased (277110947) Loss of weight (783.21) 2018 Problem resolved confirmed Jignesh-[id number] [id number]- Problem Shortness of breath (062506380) Shortness of breath (786.05) 2007 Problem resolved confirmed [id number]-[id number] [id number]- Problem Cough (23867717) Cough (786.2) 2010 Problem resolved confirmed Jignesh-[id number] [id number]- Problem Heartburn (05222804) Heartburn (787.1) 2009 Problem resolved confirmed Jignesh-[id number] [id number]- Problem Diarrhea (79731465) Diarrhea (787.91) 2010 Problem resolved confirmed Jignesh-[id number] [id number]- Problem Dysuria (14067542) Dysuria (788.1) 2003 Problem resolved confirmed Jignesh-[id number] [id number]- Problem Restless legs (18303057) Restless legs syndrome (RLS) (333.94) 2006 Problem resolved confirmed Jignesh-[id number] [id number]- Problem Hiatal hernia (38606681) Hiatal hernia (553.3) 2014 Problem resolved confirmed Jignesh-[id number] [id number]- Problem Rash (422377851) Rash (782.1) 2009 Problem resolved confirmed Jignesh-[id number] [id number]- Problem Hypokalemia (21141731) Hypokalemia (276.8) 2018 Problem resolved confirmed Jignesh-[id number] [id number]- Problem Dizziness (082860925) Dizziness (780.4) 0 2004 Problem resolved confirmed Jignesh-[id number] [id number]- Problem Low back pain (412024402) Low back pain (724.2) 2004 Problem resolved confirmed Jignesh-[id number] [id number]- Problem Fatigue (58752843) Fatigue (780.79) 05/03 Problem resolved confirmed Jignesh-[id number] [id number]- Problem Iron deficiency anemia (16834083) Iron deficiency anemia, unspecified (280.9) 2015 Problem resolved confirmed Jignesh-[id number] [id number]- Problem Vaginal irritation (527695335) Vaginal irritation (623.9) 2018 Problem resolved confirmed Jignesh-[id number] [id number]- Problem Hypercholesterolemia (40469080) Hypercholesterolemia (272.0) 2009 Problem resolved confirmed Jignesh-98 5911- Problem Hypotension (53299528) Hypotension, other (458.8) 2018 Problem resolved confirmed Jignesh-98 5911- Problem Mild recurrent major depression (88889273) Major depression, recurrent episode, mild (296.31) 2016 Problem resolved confirmed Jignesh-98 5911- Problem Moderate recurrent major depression (60750205) Major depression, recurrent episode, moderate (296.32) 2009 Problem resolved confirmed Jignesh-[id number] [id number]- Problem Nonspecific gastrointestinal (GI) tract abnormality by CT (793.4) 2014 Problem resolved confirmed Jignesh-[id number] [id number]- Problem Seasonal allergy (948826890) Seasonal allergies (477.0) 2017 Problem resolved confirmed Jignesh-98 [id number]- Problem Shoulder pain (81268389) Shoulder pain (719.41) 2014 Problem resolved confirmed Jignesh-98 5911- Problem Screening for breast cancer (284250138) Screening for breast cancer (V76.10) 2012 Problem resolved confirmed Jignesh-98 [id number]- Problem Allergic rhinitis du e to allergen (41021140) Allergic rhinitis, other allergen-induced (477.8) 2011 Problem resolved confirmed Jignesh-98 [id number]- Problem Allergic rhinitis du e to allergen (96192808) Allergic rhinitis, other allergen-induced, NEC (477.8) 2012 Problem resolved confirmed Jignesh-[id number] [id number]- Problem Allergic rhinitis caused by pollen (22549638) Allergies (477.0) 2010 Problem resolved confirmed Jignesh-98 5911- Problem Breast mass (91565526) Breast mass (611.72) 2004 Problem resolved confirmed Jignesh-98 5911- Problem Chest pain (16653692) Chest pain (786.50) 2004 Problem resolved confirmed Jignesh-98 5911- Problem Disorder of hematopoietic system (64904097) Other abnormal findings on blood examination (790.99) 2016 Problem resolved confirmed Jignesh-98 5911- Problem Right lower quadrant pain (279288635) RLQ abdominal pain (789.03) 2014 Problem resolved confirmed Jignesh-98 5911- Problem Sore throat (285406214) Sore Throat (462) 2014 Problem resolved confirmed Jignesh-98 5911- Problem Acute renal failure (96968210) Acute renal failure, NEC (584.8) 2016 Problem resolved confirmed Jignesh-98 5911- Problem 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) Atypical mole (238.2) 2010 Problem resolved confirmed Jignesh-98 5911- Problem Bilateral pneumonia (646574848) Bilateral pneumonia (486) 2017 Problem resolved confirmed Jignesh-98 5911- Problem Depressive disorder (87562615) Depressive disorder not elsewhere classified (311) 2009 Problem resolved confirmed Jignesh-98 5911- Problem Hematochezia (837662270) Hematochezia (578.1) 2018 Problem resolved confirmed Jignesh-98 5911- Problem Lab: Used to mat ch unlinked laboratory orders (V92) 2014 Problem resolved confirmed Jignesh-98 5911- Problem Lymphadenopathy (50610110) Lymphadenopathy (785.6) 2008 Problem resolved confirmed Jignesh-98 5911- Problem Flank pain (987802992) Flank pain (724.8) 2018 Problem resolved confirmed Jignesh-98 5911- Problem Midline cystocele (563261737) Cystocele, midline (618.01) 2014 Problem resolved confirmed Jignesh-98 5911- Problem Dumping syndrome (00412861) Dumping syndrome (564.2) 2015 Problem resolved confirmed Jignesh-98 5911- Problem Ear ache (082294051) Ear ache (388.71) 2008 Problem resolved confirmed Jignesh-98 5911- Problem Gastric ulcer (402477508) Gastric ulcer (531.30) 2010 Problem resolved confirmed Jignesh-98 5911- Problem Insomnia (458727438) Insomnia (307.41) 2009 Problem resolved confirmed Jignesh-98 5911- Problem Pain in limb (15876226) Leg pain (729.5) 2006 Problem resolved confirmed Jignesh-98 5911- Problem Precordial pain (89779145) Precordial chest pain (786.51) 2014 Problem resolved confirmed Jignesh-98 5911- Problem Abdominal pain (62325355) Abdominal pain (789.09) 2009 Problem resolved confirmed Jignesh-98 5911- Problem Cardiac arrhythmia (353655060) Bigeminy (427.89) 2016 Problem resolved confirmed Jignesh-98 5911- Problem Persistent hypersomnia (839078926) Chronic hypersomnia (307.44) 2009 Problem resolved confirmed Jignesh-98 5911- Problem Needs influenza immunization (589378993) Vaccination against other viral diseases, Influenza (V04.81) 2011 Problem resolved confirmed Jignesh-98 5911- Problem Acute upper respiratory infection (56199801) Acute upper respiratory infection (465.8) 2005 Problem resolved confirmed Jignesh-98 5911- Problem Anxiety depression (107981091) Anxiety with depression (300.4) 2005 Problem resolved confirmed Jignesh-98 5911- Problem Osteoarthritis of shoulder (43325006) 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) 2014 Problem resolved confirmed Jignesh-98 5911- Problem Persistent insomnia (185126216) Persistent insomnia (307.42) 2003 Problem resolved confirmed Jignesh-98 5911- Problem Pleural effusion (82287661) Pleural effusion (511.9) 2018 Problem resolved confirmed Jignesh-98 5911- Problem Malignant essential hypertension (10545868) Severe elevation in blood pressure (401.0) 2004 Problem resolved confirmed Jignesh-98 5911- Problem Basal cell carcinoma of eyelid (095427921) Basal cell carcinoma of eyelid (173.1) 2009 Problem resolved confirmed Jignesh-98 5911- Problem Cellulitis (292890426) Cellulitis or abscess of other site (682.8) 2015 Problem resolved confirmed Jignesh-98 5911- Problem Chronic low back taya n (025847715) Chronic low back pain (724.2) 2004 Problem resolved confirmed Jignesh-98 5911- Problem Constipation (51688859) Constipation (564.01) 2006 Problem resolved confirmed Jignesh-98 5911- Problem Depression (939076948) Depression (296.20) 2004 Problem resolved confirmed Jignesh-98 5911- Problem Itching (703395377) Itching (698.9) 12/24 Problem resolved confirmed Jignesh-98 5911- Problem Urinary tract infection (27492912) Urinary tract infection (595.0) 2016 Problem resolved confirmed Jignesh-98 5911- Problem Acquired hypothyroidism (752282227) Acquired hypothyroidism (244.8) 2009 Problem resolved confirmed Jignesh-98 5911- Problem Acute sinusitis (74226341) Acute sinusitis (461.8) 2008 Problem resolved confirmed Jignesh-98 5911- Problem Asthma without statu s asthmaticus (52875058) Asthma, type unspecified (493.90) 2017 Problem resolved confirmed Jignesh-98 5911- Problem Adjustment disorder with depressed mood (68876384) Bereavement adjustment reaction (309.0) 2012 Problem resolved confirmed Jignesh-98 5911- Problem Left ventricular hypertrophy (69967771) LVH (429.3) 2018 Problem resolved confirmed Jignesh-98 5911- Problem Chronic insomnia (938520206) Chronic insomnia (307.42) 2009 Problem resolved confirmed Jignesh-98 5911- Problem Precordial pain (44411183) Substernal chest pain (786.51) 2004 Problem resolved confirmed Jignesh-98 5911- Problem Administration of vaccine product containing only Streptococcus pneumoniae antigen (procedure) (50701357) Vaccination against pneumococcal pneumonia (V03.82) 2011 Problem resolved confirmed Jignesh-98 5911- Problem Vaginal discharge (000664376) Vaginal discharge (616.10) 2018 Problem resolved confirmed Jignesh-98 5911- Problem Easy bruising (979968140) Easy bruising (782.7) 2018 Problem resolved confirmed Jignesh-98 5911- Problem Hip pain (47563032) Hip pain (719.45) 2017 Problem resolved confirmed Jignesh-98 5911- Problem Osteoporosis (04294216) Osteoporosis (733.09) 2009 Problem resolved confirmed Jignesh-98 5911- Problem Dry mouth (21490514) Dry mouth (527.7) 2005 Problem resolved confirmed Jignesh-98 5911- Problem Essential hypertension (03804358) Essential hypertension (401.1) 2009 Problem resolved confirmed Jignesh-98 5911- Problem Hypertension (18743192) HTN (401.1) 2004 Problem resolved confirmed Jignesh-98 5911- Problem Colostomy present (785378049) Patient with colostomy (V44.3) 2015 Problem resolved confirmed Jignesh-98 5911- Problem Pedal edema (100737737) Pedal edema (782.3) 2018 Problem resolved confirmed Jignesh-98 5911- Problem Restless legs syndrome (03219222) Restless leg syndrome (333.99) 2007 Problem resolved confirmed Jignesh-98 5911- Problem Neoplasm of uncertai n behavior of connective and other soft tissues (48907791) Unspecified skin lesion (239.2) 2016 Problem resolved confirmed Jignesh-98 5911- Problem Abnormal urination (69240019890817) Urinary abnormality (788.69) 2018 Problem resolved confirmed Jignesh-98 5911- Problem 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, 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 Problem resolved confirmed Jignesh-98 5911- Problem Screening for malignant neoplasm of breast (272611945) Screening for breast cancer, unspecified (V76.10) 2014 Problem resolved confirmed Jignesh-98 5911- Problem Screening mammograph y (57996812) Screening mammogram - other (V76.12) 2016 Problem resolved confirmed Jignesh-98 5911- Problem Vaginal Discharg e Unspecified (616.10) 2014 Problem resolved confirmed Jignesh-98 5911- Encounters Encounter Location Date Provider Diagnosis [place] [address] [place] [facility] [address] [place] [address] 01/02/2025 Tito Cartagena Hypertension I10 ; Other spondylosis with radiculopathy, lumbar region M47.26 and Situational anxiety F41.8 [place] [address] [place] [facility] [address] [place] [address] 12/05/2024 Tito Cartagena Hypertension I10 ; Other spondylosis with radiculopathy, lumbar region M47.26 and Situational anxiety F41.8 [place] [address] [place] [facility] [address] [facility] [place] [address] 10/24/2024 Tito Cartagena Other acute kidney failure N17.8 ; Melena K92.1 and Localized enlarged lymph nodes R59.0 [place] [address] [place] [address] [place] [address] 03/06/2025 Tito Cartagena Hypertension I10 ; Other spondylosis with radiculopathy, lumbar region M47.26 and Situational anxiety F41.8 [place] [address] [place] [address] 02/06/2025 [facility] Hypertension I10 ; Other spondylosis with radiculopathy, lumbar region M47.26 and Situational anxiety F41.8 [facility] [address] [place] [address], [place] [address] 02/16/2025 [facility] [address] [place] [address], [place] [address] 01/12/2025 [facility] [address] [place] [address], [place] [address] 12/29/2024 [facility] [address] [place] [address], [place] [address] 11/27/2024 [facility] [address] [place] [address], [place] [address] 11/27/2024 [facility] [address] [place] [address], [place] [address] 10/28/2024 [facility] Assessments Encounter Date Diagnosis (ICD Code) Assessment Notes Treatment Notes Treatment Clinical Notes Section Notes 10/24/2024 Melena (ICD-10 - K92.1) 10/24/2024 Other acute kidney failure (ICD-10 - N17.8) Medications reviewed, orders signed and documented with nursing staff. Vitals taken and recorded at [facility]. Medications were reviewed. I will continue without changes. Nursing staff is to contact me with any symptoms arising. 12/05/2024 Other spondylosis with radiculopathy, lumbar region (ICD-10 - M47.26) 12/05/2024 Hypertension (ICD-10 - I10) Medications were reviewed. I will continue without changes. Nursing staff is to contact me with any symptoms arising. Orders signed and documented with nursing staff. Vitals taken and recorded at [facility]. 01/02/2025 Hypertension (ICD-10 - I10) Medications were reviewed. I will continue without changes. Nursing staff is to contact me with any symptoms arising. Orders signed and documented with nursing staff. Vitals taken and recorded at [facility]. 02/06/2025 Hypertension (ICD-10 - I10) Medications were reviewed. I will continue without changes. Nursing staff is to contact me with any symptoms arising. Orders signed and documented with nursing staff. Vitals taken and recorded at [facility]. 03/06/2025 Hypertension (ICD-10 - I10) Medications were reviewed. I will continue without changes. Nursing staff is to contact me with any symptoms arising. Orders signed and documented with nursing staff. Vitals taken and recorded at [facility]. 03/06/2025 Other spondylosis with radiculopathy, lumbar region (ICD-10 - M47.26) 02/06/2025 Other spondylosis with radiculopathy, lumbar region (ICD-10 - M47.26) 01/02/2025 Other spondylosis with radiculopathy, lumbar region (ICD-10 - M47.26) 12/05/2024 Situational anxiety (ICD-10 - F41.8) 10/24/2024 Localized enlarged lymph nodes (ICD-10 - R59.0) 01/02/2025 Situational anxiety (ICD-10 - F41.8) 02/06/2025 Situational anxiety (ICD-10 - F41.8) 03/06/2025 Situational anxiety (ICD-10 - F41.8) 02/06/2025 Other Medications were reviewed. I will continue without changes. Nursing staff is to contact me with any symptoms arising. Orders signed and documented with nursing staff. Vitals taken and recorded at [facility]. 03/06/2025 Other Medications were reviewed. I will continue without changes. Nursing staff is to contact me with any symptoms arising. Orders signed and documented with nursing staff. Vitals taken and recorded at [facility]. 01/02/2025 Other Medications were reviewed. I will continue without changes. Nursing staff is to contact me with any symptoms arising. Orders signed and documented with nursing staff. Vitals taken and recorded at [facility]. 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
--- OUTSIDE RECORDS SUMMARY | 2025-03-14 05:30 | XMS_ITS | Encounter Summary ---
Author Organization [facility] Address [address] Attn: Epic Prelude ADT KELSY ARITA [address] Care Team Providers Care Doll Wigs Hackler Name Role Phone Unavailable Primary Care Provider Unavailabl e Encounter Details Date Type Department Care Team (Late st Contact Info) Description 05/22/2001 Outpatient Historical Matteo Inman, Gurwinder Mora MD [address] [place] [address] Social History Tobacco Use Types Packs/Day Years Used Date Smoking Tobacco: Never Assessed Comments Unknown Sex and Gender Information Value Date Recorded Sex Assigned at Not on file Legal Sex Female 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
--- OUTSIDE RECORDS SUMMARY | 2025-03-14 05:30 | XMS_ITS | Encounter Summary ---
Author Organization [employer] [facility] Address [address] [place] [address] Care Team Providers Care Biodiesel Technology Manager Name Role Phone Unavailable Primary Care Provider Unavailabl e Encounter Details Date Type Department Care Team (Latest Contact Info) Description 03/28/2001 Outpatient Historical [facility] Matteo Inman, Gurwinder Mora MD [address] [place] [phone] ACUTE SINUSITIS NOS (Primary Dx); HYPERTENSION NOS; ACUTE URI NOS; OSTEOPOROSIS NOS Social History Tobacco Use Types Packs/Day Years Used Date Smoking Tobacco: Never Assessed Comments Unknown Sex and Gender Information Value Date Recorded Sex Assigned at Not on file Legal 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
--- OUTSIDE RECORDS SUMMARY | 2025-03-14 05:30 | XMS_ITS | Encounter Summary ---
Author Organization [employer] [facility] Address [address] [place] [address] Care Team Providers Care Bunch Maker Hand Name Role Phone Unavailable Primary Care Provider Unavailabl e Encounter Details Date Type Department Care Team (Latest Contact Info) Description 12/06/2000 Outpatient Historical [facility] Matteo Inman, [place] [address] [place] [phone] Unspecified essential hypertension (Primary Dx); Cramp of limb Social History Tobacco Use Types Packs/Day Years Used Date Smoking Tobacco: Never Assessed Comments Unknown Sex and Gender Information Value Date Recorded Sex Assigned at Not on file 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
--- OUTSIDE RECORDS SUMMARY | 2025-03-14 05:30 | XMS_ITS | Encounter Summary ---
Author Organization [email or web address] [facility] Address [address] [place] [address] Care Team Providers Care Recreation Teacher Name Role Phone Unavailable Primary Care Provider Unavailabl e Encounter Details Date Type Department Care Team (Latest Contact Info) Description 05/27/2001 Outpatient Historical [facility] Matteo Inman, [place] [address] [place] [phone] ATTEN-SURG DRESSNG/SUTUR (Primary Dx) Social History Tobacco Use Types Packs/Day Years Used Date Smoking Tobacco: Never Assessed Comments Unknown Sex and Gender Information Value Date Recorded Sex Assigned at Not on file Legal Sex Female 4:17 AM SIZING SPONGER Gender Identity Not on file Sexual Orientation Not on file documented as of this encounter Plan of Treatment Not on file documented as of this encounter Visit Diagnoses Diagnosis Attention to dressings and sutures- Primary documented in this encounter
--- OUTSIDE RECORDS SUMMARY | 2025-03-14 05:30 | XMS_ITS | Encounter Summary ---
Author Organization [employer] [facility] [facility] Address [address] [place] [address] Care Team Providers Care Radio Aerial Installer Name Role Phone Unavailable Primary Care Provider Unavailabl e Encounter Details Date Type Department Care Team (Latest Contact Info) Description 01/04/2001 Outpatient Historical [facility] Matteo Inman, [place] [address] [place] [phone] Unspecified essential hypertension (Primary Dx); Volume depletion Social History Tobacco Use Types Packs/Day Years Used Date Smoking Tobacco: Never Assessed Comments Unknown Sex and Gender Information Value Date Recorded Sex Assigned at Not on file Legal Sex Female 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
--- NOTE | 2025-03-14 05:38 | PC.NURSE ---
patient notified we need urine sample she states that she does not need to urinate at this time. she will let us know when she is able to urinate so we can obtain a urine sample.
--- NOTE | 2025-03-14 05:46 | ED_ITS ---
HPI - SOB/Dyspnea 2 General: Chief Complaint: Shortness of Breath/Dyspnea Stated Complaint: SOB Time Seen by Provider: 03/14/25 05:26 History of Present Illness: HPI Narrative: 79-year-old female with a history of nick tricular tachycardia, pacemaker placement, depression, mitral regurg, aortic valve stenosis, hypothyroidism, hyperlipidemia, hypertension, coronary artery disease, restless leg syndrome and fibromyalgia who presents emergency room By ambulance with shortness of breath. She says she has not felt well for 3 days now. She is hypoxemic on 10 L oxygen on presentation. O2 sats do improve after breathing treatment. Currently on 2 L nasal cannula. Says she is not normally on oxygen. No known history of COPD. She has a deep sounding cough but says it is not producing anything. No known fevers. No altered mental status. No chest pain. No abdominal pain. No vomiting. Related Data Home Medications ?Medication ?Instructions ?Recorded ?Confirmed oxycodone 10 mg tablet 10 - 20 mg PO Q4H PRN Pain, 11/19/23 10/09/24 Moderate amiodarone 200 mg tablet 200 mg PO DAILY 07/03/24 pantoprazole 40 mg tablet,delayed 40 mg PO BID 5 10/09/24 release ropinirole 0.5 mg tablet 0.5 mg PO BEDTIME 08/06/24 0 10/09/24 Previous Rx's ?Medication ?Instructions ?Recorded Monet Lam Toe Telescope Operator #1 ea 10/03/22 cyanocobalamin (vitamin B-12) 1,000 mcg PO DAILY #90 t abs 05/16/24 1,000 mcg tablet (Vitamin B-12) levothyroxine 75 mcg tablet 75 mcg PO QAM #90 tabs amlodipine 10 mg tablet 10 mg PO DAILY #90 tabs 05/25 aripiprazole 5 mg tablet 5 mg PO .qpm #30 tabs bupropion HCl 150 mg 24 hr tablet, 150 mg PO QAM #30 t abs 08/12/24 extended release (Wellbutrin XL) sertraline 25 mg tablet See Rx Instructions .Route 0 08/22/24 .COMPLEX #100 tabs polyethylene glycol 3350 17 17 g PO DAILY #850 grams 0 08/24/24 gram/dose oral powder (Purelax) lisinopril 20 mg tablet 20 mg PO DAILY #30 tabs 08/24 05/20 atorvastatin 40 mg tablet 40 mg PO DAILY #90 tabs 11[facility] 10/09/24 potassium chloride 10 mEq 10 meq PO DAILY #100 tabs tablet,extended release (Klor-Con) Allergies Allergy/AdvReac Type Severity Reaction Status Date / Time No Known Allergies Allergy Verified 03/14/25 05:30 Review of Systems 2 Narrative: Constitutional symptoms: Negative except as documented in HPI. Skin symptoms: Negative except as documented in HPI. Eye symptoms: Negative except as documented in HPI. ENMT symptoms: Negative except as documented in HPI. Respiratory symptoms: Negative except as documented in HPI. Cardiovascular symptoms: Negative except as documented in HPI. Gastrointestinal symptoms: Negative except as documented in HPI. Genitourinary symptoms: Negative except as documented in HPI. Musculoskeletal symptoms: Negative except as documented in HPI. Neurologic symptoms: Negative except as documented in HPI. Psychiatric symptoms: Negative except as documented in HPI. Endocrine symptoms: Negative except as documented in HPI. PFSH ED 2 PFSH: Medical History (Updated 03/14/25 @ 08:03 by Tory Galvan MD) Cognitive and behavioral changes Ventricular tachycardia (paroxysmal) Polymorphic ventricular tachycardia Pacemaker Long-term current use of opiate analgesic Goes to [facility] Depression, major Mitral regurgitation Aortic valve stenosis Mitral regurgitation Exocrine pancreatic insufficiency Renal insufficiency Hiatal hernia with GERD Hypothyroidism Enrolled in chronic care management Osteoporosis Atherosclerotic heart disease of [place] coronary artery with other forms of angina pectoris Abnormal cardiovascular stress test NSTEMI (non-ST elevated myocardial infarction) Hyperlipidemia Hypertension Past heart attack Pain management contract signed Restless legs syndrome Fibromyalgia Chronic low back pain Dr. Benavidez es pain meds Surgical History [facility] Hx of cardiac catheterization 1..25 OZH--no obstructive disease Hx of esophagogastroduodenoscopy 3.28.24 large hiatal hernia; gastritis Hx of colonoscopy 10.4.21 normal anastomosis S/P foot surgery History of mandibular surgery R jaw--has titanium plate; done for tumor--benign History of bowel resection benign growth H/O ileostomy Hx of appendectomy (~1973) Hx of hysterectomy (~1973) still has ovaries; had hyst due to bleeding; no cancer History of reversal of ileostomy Hx of tubal ligation Hx of foot surgery (~11/2013) RIGHT FOOT Family History Brother , BONE METS Cancer COLON CANCER Mother Heart disease Family history of thyroid problem Grandmother Heart disease Father Hyperlipidemia Bone cancer Social History Smoking and tobacco/nicotine status: former use of tobacco/nicotine Quit status (tobacco/nicotine): has quit using Year quit tobacco: quit 1989 Second hand smoke exposure: No Alcohol intake: never Substance/Drug Use: never Lives independently: Yes Household members: none Marital status: / Number of children: 3 Highest education level completed: Some College, No Degree Current occupational status: retired 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 Skin: Warm, dry. Head: Normocephalic, atraumatic. Neck: Supple, trachea midline. Eye: Extraocular movements are intact. Ears, nose, mouth and throat: mucosa moist. Cardiovascular: Regular, Normal peripheral perfusion. Respiratory: Lungs are clear to auscultation, respirations are non-labored, breath sounds are equal, Symmetrical chest wall expansion. Frequent harsh cough Gastrointestinal: Soft, Nontender, Non distended Musculoskeletal: Normal ROM, no deformity. Neurological: Alert and oriented, No focal neurological deficit observed. Psychiatric: Cooperative, appropriate mood & affect. Course 2 Vital Signs: Vital signs: Vital Signs Temperature 99.4 F 03/14/25 05:25 Pulse Rate 97 03/14/25 08:28 Respiratory Rate 23 H 03/14/25 07:56 Blood Pressure 196/86 03/14/25 08:28 Pulse Oximetry 97 03/14/25 08:28 Oxygen Delivery Me thod BiPAP 03/14/25 07:56 Oxygen Flow Rate 15 03/14/25 07:36 Fraction of Inspir ed Oxygen 55 03/14/25 08:02 MDM - SOB/Dyspnea Medical Decision Making Medical decision making Patient's reason for coming to the emergency room: Cough, shortness of breath Social determinants: Patient lives in a custodial I reviewed the patient's medical record. 79-year-old female with a history of ventricular tachycardia, pacemaker placement, depression, mitral regurg, aortic valve stenosis, hypothyroidism, hyperlipidemia, hypertension, coronary artery disease, restless leg syndrome and fibromyalgia I reviewed the patient's current home meds No chronic pain medications. No medications for COPD or asthma Alternate historians: None Differential diagnosis for patient with shortness of breath includes but is not limited to and based on the above HPI, review of systems and physical exam: Pneumonia. Bronchitis. Asthma or COPD with acute exacerbation. Acute coronary syndrome / CT. Pulmonary embolism. Anxiety. Congestive heart failure. Viral infections including influenza and Covid-19. Atrial fibrillation. Anxiety. Pleural effusion. Pneumothorax. Orders placed to evaluate differential diagnosis based on the above differential, HPI and physical exam Chest x-ray: No significant and interval change. Possibly some infiltrate in the left lower lobe. This was reviewed and interpreted by myself the emergency room physician. I also reviewed the radiology report. Lab Review: Laboratory results were reviewed and interpreted by myself the emergency room physician. Significant leukocytosis. However lactic acid is not elevated at 1.4. Troponin was not elevated. Delta negative. Flu COVID and RSV are negative. BUN/creatinine are not elevated. proBNP is mildly elevated. Assessment of risk: Level of risk: Moderate risk patient. Elderly. long term patient. Quite hypoxemic today. Hospitalization considerations: Patient is being admitted. To the ICU. Reexamination: Patient initially was quite hypoxemic but improved considerably after breathing treatment. However she decompensated again later after urine collection. Requiring much more oxygen. She was placed on BiPAP at that time. She is now satting in the upper 90s on her BiPAP. She seems to be tolerating this. Although she did become nauseous for a bit which improved with some Zofran. Consultation: I spoke with Dr. Harding who is on-call for the hospital service who agrees to admission. Assessment and plan: Hypoxemic respiratory failure Pneumonia - limited fluid resuscitation. Only about 100 cc. I have some concern for heart failure. She decompensates when she lays flat. She does have some leukocytosis but no lactic acidosis. No obvious pneumonia on x-ray but she has a cough that suggest this. Currently do not believe she is septic but she did receive Levaquin for pneumonia. ?I do agree she likely needs a CTA but currently she will tolerate laying flat. ?Patient has received Levaquin, BiPAP, multiple updrafts. -Broad-spectrum antibiotics were administered. -Sepsis quality measures. -Lactic acid with a reflex was ordered. -Blood cultures were ordered. ?I reevaluated the patient's volume status after sepsis fluids were given. -I discussed the patient with the hospitalist on-call who is admitting the patient. - Discussed findings and plan with patient. Answered any questions. - All laboratory values were reviewed and interpreted personally by myself, the ER physician - All imaging was reviewed and interpreted personally by myself, the ER physician. - Evaluation and treatment of this problem were appropriate in the emergency setting Critical Care: -I spent a total of 41 minutes of critical care time managing the patient, independent of any other practitioner. -The time involved in the performance of separately reportable procedures was not counted towards critical care time. Lab Data 03/14/25 05:41 03/14/25 05:41 Labs/Radiology: Radiology Impressions Chest X-Ray 03/14/25 07:36 IMPRESSION: No significant interval change. Laboratory Results WBC 21.83 10^3/uL (3.29-11.43) H 03/14/25 05:41 RBC 4.58 10^6/uL (3.85-5.65) 03/14/25 05:41 Hgb 11.80 g/dL (11.27-16.99) 03/14/25 05:41 Hct 39.2 % (36-47) 03/14/25 05:41 MCV 85.6 fl (85-98) 03/14/25 05:41 MCH 25.8 pg (27-33) L 03/14/25 05:41 MCHC 30.1 g/dL (30-55) 03/14/25 05:41 RDW 15.9 % (12.1-15.1) H 03/14/25 05:41 Plt Count 377 10^3/cmm (157-399) 03/14/25 05:41 MPV 9.3 fL (7.4-10.4) 03/14/25 05:41 Neut % (Auto) 85.7 % 03/14/25 05:41 Lymph % (Auto) 6.8 % 03/14/25 05:41 [place] % (Auto) 6.0 % 03/14/25 05:41 Eos % (Auto) 0.9 % 03/14/25 05:41 Baso % (Auto) 0.1 % 03/14/25 05:41 Neut # (Auto) 18.70 10^3/uL (1.8-7.7) H 03/14/25 05:41 Lymph # (Auto) 1.5 10^3/uL (0.8-4.8) 03/14/25 05:41 [place] # (Auto) 1.3 10^3/uL (0.2-0.9) H 03/14/25 05:41 Eos # (Auto) 0.2 10^3/uL (0.0-0.8) 03/14/25 05:41 Baso # (Auto) 0.0 10^3/uL (0.0-0.1) 03/14/25 05:41 Nucleated RBC % (auto) 0 % 03/14/25 05:41 Nucleated RBCs # 0.0 /100WBC 03/14/25 05:41 Specimen Type Arterial 03/14/25 07:22 Sample Site Radial, left 03/14/25 07:22 ABG pH 7.41 (7.35-7.45) 03/14/25 07:22 ABG pCO2 44.0 mmHg (35-45) 03/14/25 07:22 ABG pO2 41.6 mmHg (80.0-100.0) L 03/14/25 07:22 ABG HCO3 28.1 mmol/L (22-26) H 03/14/25 07:22 ABG O2 Saturation 79.9 03/14/25 07:22 ABG Base Excess 3.1 mmol/L (-2.0-2.0) H 03/14/25 07:22 Fabricio Test Pos 03/14/25 07:22 VBG pH 7.43 (7.32-7.42) H 03/14/25 05:40 VBG pCO2 42.4 mmHg (41-51) 03/14/25 05:40 VBG pO2 50.0 mmHg (25-40) H 03/14/25 05:40 VBG HCO3 28.1 mmol/L (24-28) H 03/14/25 05:40 VBG Base Excess 3.4 mmol/L (-3.0-3.0) H 03/14/25 05:40 VBG Hematocrit 37.7 % (37-47) 03/14/25 05:40 A-a O2 Gradient 6.9 mmHg (5-10) 03/14/25 07:22 Hematocrit 37.0 % (37-47) 03/14/25 07:22 Hgb O2 Saturation 78.3 % (95-100) L 03/14/25 07:22 Carboxyhemoglobin 0.7 %THgb (0.4-20.1) 03/14/25 07:22 Methemoglobin 1.2 % (0.4-1.5) 03/14/25 07:22 Total Hemoglobin 12.1 g/dL (12-16) 03/14/25 07:22 Sodium 143.0 mmol/L (131-143) 03/14/25 07:22 Potassium 3.3 mmol/L (3.5-5.0) L 03/14/25 07:22 Glucose 139.0 mg/dL (70-115) H 03/14/25 07:22 Ionized Calcium 1.2 mmol/L (1.1-1.4) 03/14/25 07:22 O2 Delivery Device Oxy mask 03/14/25 07:22 O2 Liters/Min 15.0 % 03/14/25 07:22 FiO2 44.0 % 03/14/25 05:40 Production Team Leader ID [place] 03/14/25 07:22 Sodium 140 mmol/L (136-145) 03/14/25 05:41 Potassium 3.1 mmol/L (3.5-5.1) L 03/14/25 05:41 Chloride 99 mmol/L (98-107) 03/14/25 05:41 Carbon Dioxide 26 mmol/L (22-29) 03/14/25 05:41 Anion Gap 18.1 (5-19) 03/14/25 05:41 BUN 12 mg/dL (8-23) 03/14/25 05:41 Creatinine 1.0 mg/dL (0.5-0.9) H 03/14/25 05:41 GFR Calculation Not Reportable 03/14/25 05:41 Glucose 128 mg/dL (65-115) H 03/14/25 05:41 Calculated Osmolality 291 mOsm/kg (285-295) 03/14/25 05:41 Lactic Acid 1.4 mmol/L (0.5-2.2) 03/14/25 05:41 Calcium 9.9 mg/dL (8.5-10.5) 03/14/25 05:41 Phosphorus 3.0 mg/dL (2.5-4.5) 03/14/25 05:41 Magnesium 1.6 mg/dL (1.7-2.3) L 03/14/25 05:41 Troponin T Baseline 19 ng/L (0-10) H 03/14/25 05:41 Troponin T 60 Minute 16.71 ng/L (0-10) H 03/14/25 06:42 Delta Troponin T -2.29 ABS# (0-10) L 03/14/25 06:42 C-React Prot High Sens 1.330 mg/dL (0.0-0.3) H 03/14/25 05:41 NT-Pro-B Natriuret Pep 738 pg/mL (0-450) H 03/14/25 05:41 Procalcitonin 0.34 ng/mL (0-0.5) 03/14/25 05:41 Urine Color Yellow (Yellow) 03/14/25 07:25 Urine Appearance Clear (CLEAR) 03/14/25 07:25 Urine pH 6.5 (5-7) 03/14/25 07:25 Ur Specific [place] 1.015 (1.005-1.030) 03/14/25 07:25 Urine Protein 1+ (Negative) A 03/14/25 07:25 Urine Glucose (UA) Negative (Normal) 03/14/25 07:25 Urine Ketones Negative (Negative) 03/14/25 07:25 Urine Blood Negative (Negative) 03/14/25 07:25 Urine Nitrate Negative (Negative) 03/14/25 07:25 Urine Bilirubin Negative (Negative) 03/14/25 07:25 Urine Urobilinogen 0.2 mg/dL (Negative) 03/14/25 07:25 Ur Leukocyte Esterase Negative (Negative) 03/14/25 07:25 Urine RBC 0-2 /hpf (0-2) 03/14/25 07:25 Urine WBC 0-5 /hpf (0-5) 03/14/25 07:25 Ur Squamous Epith Cells 0-5 /hpf (0-5) 03/14/25 07:25 Amorphous Sediment Not Reportable 03/14/25 07:25 Urine Bacteria None seen /hpf (NONE) 03/14/25 07:25 Hyaline Casts 0-4 /lpf H 03/14/25 07:25 Influenza A (PCR) Negative (Negative) 03/14/25 05:41 Influenza Type B (PCR) Negative (Negative) 03/14/25 05:41 RSV (PCR) Negative (Negative) 03/14/25 05:41 SARS-CoV-2 (PCR) Negative (Negative) 03/14/25 05:41 All radiology interpretation(s) finalized by discharge Discharge Plan Discharge Patient Disposition: Admitted As Inpatient Admit Provider: Andrew Harding Clinical Impression: Acute hypoxemic respiratory failure, Pneumonia Condition: Stable Coding Level of Care Code ED Pharmacy Associate for Gemma Church
[2025-03-14 05:48] LABS: Base Excess VBG 3.4 mmol/L (-3.0-3.0); Blood Gas Allen Test Pos; Blood Gas LPM 6.0 %; Blood Gas Operator Identificat gerca; Blood Gas Sample Type Venous; HCO3 VBG 28.1 mmol/L (24-28); PCO2 VBG 42.4 mmHg (41-51); PO2 VBG 50.0 mmHg (25-40); Venous Blood Gas Hematocrit 37.7 % (37-47); pH VBG 7.43 (7.32-7.42)
[2025-03-14 05:50] LABS: Hematocrit 39.2 % (36-47); Hemoglobin 11.80 g/dL (11.27-16.99); Mean Corpuscular HGB Conc 30.1 g/dL (30-55); Mean Corpuscular Hemoglobin 25.8 pg (27-33); Mean Corpuscular Volume 85.6 fl (85-98); Nucleated Red Blood Cells % 0 %; Platelet Count 377 10^3/cmm (157-399); Red Blood Count 4.58 10^6/uL (3.85-5.65); White Blood Count 21.83 10^3/uL (3.29-11.43)
[2025-03-14] MEDS: levofloxacin-dextrose 5 % 750 MG/150 ML PREMIX 100 MG IV (06:05)
--- NOTE | 2025-03-14 06:07 | PC.NURSE ---
patient was on nasal cannula 2 liters and straying consist 93-94% but now is running 90% nurse asked patient to take deep breaths to help increase oxygen and patient states that she can not it hurts to bad. oxygen turned up to 4 liters nasal cannula at this time and oxygen saturation is 92%. patient is still refusing to take deep breaths and and RR is 14. she is coughing but not productive at this time. Doctor aware. will continue to monitor.
[2025-03-14 06:14] LABS: Troponin(5th) Baseline 19 ng/L (0-10)
[2025-03-14 06:18] LABS: Lactic Sepsis W/Reflex 1.4 mmol/L (0.5-2.2)
[2025-03-14 06:27] LABS: NT Pro B Type Natriuretic Pept 738 pg/mL (0-450); Procalcitonin 0.34 ng/mL (0-0.5)
[2025-03-14 06:30] LABS: Respiratory Syncytial Virus Ce NEGATIVE (Negative); SARS-CoV-2 PCR NEGATIVE (Negative)
[2025-03-14 06:38] LABS: Anion Gap 18.1 (5-19); Blood Urea Nitrogen 12 mg/dL (8-23); Calcium 9.9 mg/dL (8.5-10.5); Carbon Dioxide 26 mmol/L (22-29); Chloride 99 mmol/L (98-107); Glucose 128 mg/dL (65-115); Magnesium 1.6 mg/dL (1.7-2.3); Osmolality Calculated 291 mOsm/kg (285-295); Potassium 3.1 mmol/L (3.5-5.1); Sodium 140 mmol/L (136-145)
[2025-03-14 06:55] LABS: CRP High Sensitivity Cardiac 1.330 mg/dL (0.0-0.3)
--- NOTE | 2025-03-14 07:06 | PC.NURSE ---
Addendum entered by Pinky Delacruz RN 03/14/25 07:10: correct 15L to 13L. pt currently on 13L at 90% Original Note: pt got up to bedside commode with x1 assist, oxygen saturation decreased to 82% on 4L. pt got back in bed, oxymask at 10L applied by respiratory, increased to 85-86%. increased oxygen to 15L, oxygen sat 89%.
--- NOTE | 2025-03-14 07:32 | PC.NURSE ---
pt laid back a little to cath patient, pt's oxygen sat decreased to 78% while on 13L Oxymask. pt sat up, increased oxygen to 15L via oxymask. pt currently between 80% and 82% on the 15L. pt c/o difficulty breathing, appears exhausted. pt able to respond, but drowsiness increasing. ED provider aware, verbal orders to repeat ABG. respiratory at bedside. second large bore IV obtained in R forearm at this time. suction available at bedside. pt on cardiac/hemodynamic monitoring
[2025-03-14 07:33] LABS: ABG PCO2 44.0 mmHg (35-45); ABG PH Result 7.41 (7.35-7.45); Alveolar-Arterial Oxygen Gradi 6.9 mmHg (5-10); Arterial Blood Gas Hematocrit 37.0 % (37-47); Blood Gas Allen Test Pos; Blood Gas LPM 15.0 %; Blood Gas Operator Identificat WALCI; Blood Gas Sample Site Radial, left; Blood Gas Sample Type Arterial; Carboxyhemoglobin 0.7 %THgb (0.4-20.1); Glucose Level-ABG 139.0 mg/dL (70-115); HCO3 ABG 28.1 mmol/L (22-26); Ionized Calcium Level - ABG 1.2 mmol/L (1.1-1.4); Methemoglobin 1.2 % (0.4-1.5); Oxygen Saturation ABG 79.9; PO2 ABG 41.6 mmHg (80.0-100.0); Potassium Level - ABG 3.3 mmol/L (3.5-5.0); Sodium Level - ABG 143.0 mmol/L (131-143)
--- NOTE | 2025-03-14 07:36 | XRR_ITS ---
PROCEDURE INFORMATION: Exam: XR Chest Exam date and time: 03/14/2025 7:41 AM Age: 79 years old Clinical indication: Shortness of breath; Additional info: Worsening TECHNIQUE: Imaging protocol: Radiologic exam of the chest. Views: 1 view. COMPARISON: CR (CHEST, ) 03/14/2025 5:29 AM FINDINGS: Tubes, catheters and devices: Stable left subclavian AICD. Lungs: Similar low lung volumes with bronchovascular crowding. Unchanged bibasilar opacities. No new airspace disease. Pleural spaces: Small left and trace right pleural effusions. Heart/Mediastinum: Stable cardiomediastinal silhouette. Redemonstrated moderately large hiatal hernia. Vasculature: Atherosclerotic aortic calcifications. Bones/joints: Unremarkable. XR/XR chest 1V portable [id number] IMPRESSION: No significant interval change.
--- NOTE | 2025-03-14 07:36 | PC.NURSE ---
pt changed into gown
[2025-03-14 07:38] LABS: Glucose Urine UA Negative (Normal); Nitrate Urine Negative (Negative); Specific Gravity, Urine 1.015 (1.005-1.030)
[2025-03-14] MEDS: methylPREDNISolone sod succ 125 mg/2 mL INJ IVP (07:42)
[2025-03-14 07:43] LABS: Add Urine Microscopic? YES
[2025-03-14] MEDS: ondansetron 2 mg/ML SDV 2 mL 4 MG IVP (07:58)
--- NOTE | 2025-03-14 08:22 | PC.NURSE ---
per ED provider to only administer 100mL of 500mL bolus ordered.
--- NOTE | 2025-03-14 08:22 | PM.HP ---
Providers/Chief Complaint Admitting Physician: Meaghan Morales MD Primary Care Provider: Lynda Lopez MD Chief Complaint: SOB History of Present Illness As per the previous retrospective notes and the patient: Ivan Peguero is a 79 year old female with a history of ventricular tachycardia, pacemaker placement, depression, mitral regurg, aortic valve stenosis, hypothyroidism, hyperlipidemia, hypertension, coronary artery disease, restless leg syndrome and fibromyalgia who presents emergency room By ambulance from assisted with shortness of breath. She says she has not felt well for 3 days now. The patient further reported that she was having cough and mild shortness of breath at assisted. The cough was mild productive in nature and associated with febrile illness with fever and chills. Since the patient was at assisted therefore there is also consideration of having possible sick contact The patient did not report any chest pain, chest pressure,. No recent travel. No history of abdominal pain or diarrhea. No increase in lower leg swellings. No dizziness or syncope or presyncope. Rest of the review of system unremarkable Review of Systems General: Reports: 10 or more systems reviewed and unremarkable except in HPI and below Medications/Allergies Home Medications ?Medication ?Instructions ?Recorded ?Confirmed ?Last Taken ?Type Budin [employer] #1 ea 10/03/22 03/14/25 Unknown Rx cyanocobalamin (vitamin B-12) 1,000 mcg PO DAILY #90 tabs 05/16/24 03/14/25 03/13/25 08:50 Rx 1,000 mcg tablet (Vitamin B-12) levothyroxine 75 mcg tablet 75 mcg PO QAM #90 tabs 05/21/24 03/14/25 03/13/25 05:25 Rx amlodipine 10 mg tablet 10 mg PO DAILY #90 tabs 06/12/24 03/14/25 03/13/25 17:30 Rx amiodarone 200 mg tablet 200 mg PO DAILY 07/03/24 03/14/25 03/13/25 08:50 History aripiprazole 5 mg tablet 5 mg PO .qpm #30 tabs 07/15/24 03/14/25 03/13/25 22:20 Rx pantoprazole 40 mg tablet,delayed 40 mg PO BID 08/06/24 03/14/25 03/13/25 17:30 History release ropinirole 0.5 mg tablet 0.5 mg PO BEDTIME 08/06/24 03/14/25 03/13/25 22:20 History bupropion HCl 150 mg 24 hr tablet, 150 mg PO QAM #30 tabs 08/12/24 03/14/25 03/13/25 08:25 Rx extended release (Wellbutrin XL) sertraline 25 mg tablet See Rx Instructions .Route 08/22/24 03/14/25 03/13/25 08:50 Rx .COMPLEX #100 tabs polyethylene glycol 3350 17 17 g PO DAILY #850 grams 08/24/24 03/14/25 Unknown Rx gram/dose oral powder (Purelax) lisinopril 20 mg tablet 20 mg PO DAILY #30 tabs 09/04/24 03/14/25 03/14/25 08:50 Rx atorvastatin 40 mg tablet 40 mg PO DAILY #90 tabs 09/30/24 03/14/25 03/13/25 08:50 Rx Admit to [facility] #1 ea 10/09/24 03/14/25 Unknown Rx acetaminophen 325 mg tablet 650 mg PO QID PRN Pain 03/14/25 03/14/25 03/13/25 16:05 History (Tylenol) guaifenesin 100 mg/5 mL oral 200 mg PO Q4H PRN Cough 03/14/25 03/14/25 03/13/25 23:35 History liquid (Marie-Tussin) magnesium gluconate 500 mg tablet 500 mg PO BEDTIME 03/14/25 03/14/25 03/13/25 22:20 History magnesium oxide 400 mg PO DAILY 03/14/25 03/14/25 03/13/25 22:20 History melatonin 5 mg capsule 5 mg PO BEDTIME 03/14/25 03/14/25 03/13/25 22:20 History oxycodone 5 mg tablet 5 - 10 mg PO Q6H PRN Pain 03/14/25 03/14/25 03/14/25 03:05 History pregabalin 100 mg capsule 100 mg PO BEDTIME 03/14/25 03/14/25 03/13/25 22:20 History Allergies Allergy/AdvReac Type Severity Reaction Status Date / Time No Known Allergies Allergy Verified 03/14/25 05:30 PFSH Acute PFSH: Medical History (Updated 03/14/25 @ 08:03 by Tory Galvan MD) Cognitive and behavioral changes Ventricular tachycardia (paroxysmal) Polymorphic ventricular tachycardia Pacemaker Long-term current use of opiate analgesic Goes to [facility] Depression, major Mitral regurgitation Aortic valve stenosis Mitral regurgitation Exocrine pancreatic insufficiency Renal insufficiency Hiatal hernia with GERD Hypothyroidism Enrolled in chronic care management Osteoporosis Atherosclerotic heart disease of [place] coronary artery with other forms of angina pectoris Abnormal cardiovascular stress test NSTEMI (non-ST elevated myocardial infarction) Hyperlipidemia Hypertension Past heart attack Pain management contract signed Restless legs syndrome Fibromyalgia Chronic low back pain Dr. Benavidez Rxes pain meds Surgical History History of implantable cardiac defibrillator (ICD) Merc SG 04/19--pacemaker/defibrillator Hx of cardiac catheterization 1.19.25 OZH--no obstructive disease Hx of esophagogastroduodenoscopy 3.28.24 large hiatal hernia; gastritis Hx of colonoscopy 10.4.21 normal anastomosis S/P foot surgery History of mandibular surgery R jaw--has titanium plate; done for tumor--benign History of bowel resection benign growth H/O ileostomy Hx of appendectomy (~1973) Hx of hysterectomy (~1973) still has ovaries; had hyst due to bleeding; no cancer History of reversal of ileostomy Hx of tubal ligation Hx of foot surgery (~11/2013) RIGHT FOOT Family History Brother , BONE METS Cancer COLON CANCER Mother Heart disease Family history of thyroid problem Grandmother Heart disease Father Hyperlipidemia Bone cancer Social History Smoking and tobacco/nicotine status: former use of tobacco/nicotine Quit status (tobacco/nicotine): has quit using Year quit tobacco: quit 1989 Second hand smoke exposure: No Alcohol intake: never Substance/Drug Use: never Lives independently: Yes Household members: none Marital status: / Number of children: 3 Highest education level completed: Some College, No Degree Current occupational status: retired 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 Vitals/I&O/Wt Last Vital Signs Temp 99.4 F 03/14/25 05:25 Pulse 97 03/14/25 08:15 Resp 23 H 03/14/25 07:56 BP 196/85 03/14/25 08:15 Pulse Ox 92 03/14/25 08:15 O2 Del Method BiPAP 03/14/25 07:56 O2 Flow Rate 15 03/14/25 07:36 FiO2 55 03/14/25 08:02 03/13/25 03/14/25 03/14/25 22:59 06:59 14:59 Intake Total 250 / 250 Balance 250 / 250 Weight last 48 hrs Weight 58.769 kg Physical Exam Narrative: General: Alert and oriented, lying comfortably with BiPAP and able to speak in full sentences, looks frail and weak with signs of high likelihood of physical deconditioning in her age HEENT: Normocephalic, atraumatic, grossly unremarkable exam Cardio: normal rate rhythm, normal S1-S2 without any murmurs, rubs, or gallops and JVD normal Respiratory: Limited exam due to conducted sounds from the BiPAP and patient having poor respiratory effort, however mild coarse crackles and wheezes heard bilaterally. GI: Abdomen soft, nontender, nondistended, normoactive bowel sounds present all 4 quadrants, Neuro: intact cranial nerves motor and sensory and cerebellar/coordination function without any focal neurological deficit Behavior: Appropriate and cooperative Extremities: Adequate palpable pulses, mild trace edema Data 03/14/25 05:41 03/14/25 05:41 A&P Assessment and plan 1. Acute hypoxemic respiratory failure: Acute hypoxemic respiratory failure with signs and symptoms of high likelihood of severe pneumonia Respiratory viral panel showed enterovirus infection Chest x-ray clear, however having high WBCs. Broad-spectrum antibiotics with ceftriaxone and azithromycin Methylprednisone 60 mg daily since the patient is having severe pneumonia requiring BiPAP Respiratory viral panel Pulse ox monitoring and monitor hemodynamics Telemetry monitoring As needed Tylenol for fever Hemodynamics monitoring 2. Pneumonia: As mentioned above 3. Acute hypokalemia: Correction provided to follow in the morning 4. Hypertension: Home medication reviewed, to continue amlodipine 10 mg and lisinopril 20 mg daily Monitor blood pressure 5. Restless legs syndrome: Home medication reviewed and reconciled to start ropinirole at bedtime 6. Fibromyalgia: And required analgesia and monitoring as per pain scale 7. Atherosclerotic heart disease of [place] coronary artery with other forms of angina pectoris: Continue statins 40 mg daily as per review of the home medicines [place] insignificant There was no aspirin in her medications possible reason could be her iron deficiency anemia in the past Continue to monitor for symptoms Telemetry 8. Hypothyroidism: Continue home dose of levothyroxine 75 mcg daily 9. Depression, major: Home medication reviewed, to continue on aripiprazole, bupropion and sertraline after reconciliation Plan: VTE: Heparin Diet: Cardiac PDMP PDMP Reviewed: Not Reviewed Attestations Medical Necessity Statement*: Patient will stay more than 2 midnights in ICU due to severe pneumonia requiring BiPAP and IV steroids Time Spent in Patient Care: 16 - 35 minutes (>than 50% of time spent in counselling and/or direct pt care on unit). Critical Care Time: The high probability of a clinically significant, sudden or life threatening deterioration, as referenced in this documentation, required my full and direct attention, intervention and personal management. The critical care time shown is in addition to time spent performing any reported separately billable procedures and includes the following: [x] Data and vital sign review and interpretation [x] Patient assessment, examination and intervention [x] Medication orders and management [x] Patient/Family updates as able [x] Care Coordination and Documentation. Critical Care Time (min): 35 Other Attestations: Patient condition has been discussed at length with the patient/family, I have independently reviewed the chart labs imaging/diagnostics/EKG. the goals of care and code status with the patient/family/NOK/legal bilingual inside sales representative, and documented accordingly. I have reconciled the medications after confirmation/comorbidities/current clinical condition. The management has been done according to the current clinical condition with respect to patient goals of care and based on recommendations/guidelines. The patient/family has been informed about the current condition and further plan of care. Agreed with the plan of care and understood without any language barrier. Every effort was made to ensure accuracy of compressed gas plant worker. Any obvious errors or omissions should be clarified with the author of the document. Coding Level of Care Code Critical Care >/= 30 minutes Diagnoses Acute hypoxemic respiratory failure J96.01 Pneumonia J18.9 Acute hypokalemia E87.6 Hypertension I10 Restless legs syndrome G25.81 Fibromyalgia M79.7 Atherosclerotic heart disease of [place] coronary artery with other forms of angina pectoris I25.118 Hypothyroidism E03.9 Depression, major F32.9
[2025-03-14] MEDS: magnesium sulfate premix 2 GM/50 ML PIGGYBACK IV (08:57)
[2025-03-14] MEDS: cefTRIAXone 1,000 mg SDV 1000 MG IVP (08:57)
[2025-03-14] MEDS: heparin 5,000 unit/mL INJ 1 mL 5000 UNIT SUBCUT ×2 (09:12→20:29)
--- NOTE | 2025-03-14 09:12 | PC.NURSE ---
Addendum entered by Maryuri Adrian RN 03/14/25 09:27: Lynda to update other family members. Addendum entered by Maryuri Adrian RN 03/14/25 09:23: Call returned by Lynda Stone- updated Patient is Alert and answer questions appropriately - admitted for respiratory distress, need for bipap. Elevated wbc/ high fever- Possible pneumonia. Respiratory panel pending for other illnesses. Antibiotic treatment. Charted updated for Correction of daughters name and new phone number obtained for Timi. Original Note: Family notification of admission: Attempted to reach all emergency contacts: Timi Howard, Vannessa and Yudy. Messages left with all but Timi- unable to complete call to him as number disconnected or changed. [place] states attempted to reach contact and left messages as no answer, as patient was transported to hospital.
[2025-03-14] MEDS: water for injection-sterile 10 ML 10000 ML (09:16)
[2025-03-14 11:18] LABS: Coronavirus 229E,HKU1,NL63,OC4 Not Detected (NOT DETECT); Parainfluenza Virus Type 1 Not Detected (NOT DETECT); Parainfluenza Virus Type 2 Not Detected (NOT DETECT); Parainfluenza Virus Type 3 Not Detected (NOT DETECT); Parainfluenza Virus Type 4 Not Detected (NOT DETECT); SARS-COV-2 Not Detected (NOT DETECT)
[2025-03-14] MEDS: MELATONIN 3 MG TABLET PO (20:29)
[2025-03-15] VITALS (41 sets, daily range): BP systolic 108–156; BP diastolic 52–93; PULSE 69–88; RESP 15–24; TEMP 36.4–37.7; O2SAT 81–99; BMI 25.6
[2025-03-15 04:26] LABS: Hematocrit 32.6 % (36-47); Hemoglobin 9.90 g/dL (11.27-16.99); Mean Corpuscular HGB Conc 30.4 g/dL (30-55); Mean Corpuscular Hemoglobin 25.4 pg (27-33); Mean Corpuscular Volume 83.8 fl (85-98); Nucleated Red Blood Cells % 0 %; Platelet Count 285 10^3/cmm (157-399); Red Blood Count 3.89 10^6/uL (3.85-5.65); White Blood Count 27.34 10^3/uL (3.29-11.43)
[2025-03-15 04:52] LABS: Alanine Aminotransferase 6 U/L (0-33); Albumin Level 3.5 g/dL (3.5-5.2); Alkaline Phosphatase 70 U/L (35-105); Anion Gap 13.5 (5-19); Aspartate Amino Transferase 13 U/L (0-32); Blood Urea Nitrogen 24 mg/dL (8-23); Calcium 9.4 mg/dL (8.5-10.5); Carbon Dioxide 28 mmol/L (22-29); Chloride 104 mmol/L (98-107); Globulin 2.6 g/dL (1.3-4.6); Glucose 108 mg/dL (65-115); Magnesium 1.9 mg/dL (1.7-2.3); Osmolality Calculated 297 mOsm/kg (285-295); Potassium 4.5 mmol/L (3.5-5.1); Sodium 141 mmol/L (136-145); Total Protein 6.1 g/dL (6.6-8.7)
[2025-03-15] MEDS: methylPREDNISolone sod succ 125 mg/2 mL INJ 60 MG IVP (08:19)
[2025-03-15] MEDS: cefTRIAXone 1,000 mg SDV 1000 MG IVP (08:19)
[2025-03-15] MEDS: water for injection-sterile 10 ML 10000 ML (08:23)
[2025-03-15] MEDS: heparin 5,000 unit/mL INJ 1 mL 5000 UNIT SUBCUT ×2 (08:23→20:22)
[2025-03-15] MEDS: guaiFENesin-dextromethorphan UDC 10 mL PO (09:30)
--- NOTE | 2025-03-15 10:49 | PC.NURSE ---
assisted up in bed for am breakfast am meds given changed to high flow o2 humidified at this time . frequent cough noted , o2 sats remain low. jiménez to bertrand alert and oriented at this time .
[2025-03-15] MEDS: oxyCODONE 5 mg IR Tab/Cap PO (11:26)
--- NOTE | 2025-03-15 17:46 | PC.NURSE ---
small amt of liquid po only able to tolerate having mask off for short times , even on high flow o2 in use .. less cough at this time jiménez intact no c/o pain at this time
--- NOTE | 2025-03-15 19:20 | PM.PN ---
Subjective Subjective: The patient was seen in the morning, currently stable. Getting better There is marked leukocytosis this is related to likely steroids Patient is coughing up secretions actively. And is alert and oriented Apart from coughing no other complaints, febrile episodes getting better Vitals/I&O/Wt Last Vital Signs Temp 98 F 03/15/25 18:00 Pulse 70 03/15/25 18:00 Resp 16 03/15/25 15:17 BP 121/61 03/15/25 18:00 Pulse Ox 90 03/15/25 18:00 O2 Del Method BiPAP 03/15/25 15:17 O2 Flow Rate 60 03/15/25 09:00 FiO2 60 03/15/25 16:57 03/15/25 03/15/25 03/15/25 06:59 14:59 22:59 Intake Total 480 / 1440 610 / 610 200 / 810 Output Total 200 / 500 350 / 350 Balance 280 / 940 610 / 610 -150 / 460 Weight last 48 hrs Weight 59.449 kg Weight 58.513 kg Weight 58.769 kg Physical Exam Narrative: General: Alert and oriented, lying comfortably with BiPAP and able to speak in full sentences, looks frail and weak with signs of high likelihood of physical deconditioning in her age HEENT: Normocephalic, atraumatic, grossly unremarkable exam Cardio: normal rate rhythm, normal S1-S2 without any murmurs, rubs, or gallops and JVD normal Respiratory: Limited exam due to conducted sounds from the BiPAP and patient having poor respiratory effort, however mild coarse crackles and wheezes heard bilaterally. GI: Abdomen soft, nontender, nondistended, normoactive bowel sounds present all 4 quadrants, Neuro: intact cranial nerves motor and sensory and cerebellar/coordination function without any focal neurological deficit Behavior: Appropriate and cooperative Extremities: Adequate palpable pulses, mild trace edema Data 03/15/25 04:02 03/15/25 04:02 A&P Assessment and plan 1. Acute hypoxemic respiratory failure: Acute hypoxemic respiratory failure with signs and symptoms of high likelihood of severe pneumonia Respiratory viral panel showed enterovirus infection and continue droplet isolation Chest x-ray clear, however having high WBCs still high and could be under effect of steroids. Broad-spectrum antibiotics with ceftriaxone and azithromycin for 4 to 5 days Methylprednisone 60 mg daily since the patient is having severe pneumonia requiring BiPAP Respiratory viral panel showed enteroviral infection. Telemetry monitoring As needed Tylenol for fever Hemodynamics monitoring 2. Acute kidney injury: Patient having acute kidney injury, in the light of sepsis versus prerenal Ringer lactate 500 mL fluid bolus Maintenance fluids with normal saline at the rate of 75 mL/h Intake output monitoring Daily renal parameters monitoring Monitor electrolytes with correction accordingly If the renal functions are not improving then consider acute kidney injury workup including ultrasound and urine studies. 3. Pneumonia due to infectious organism, unspecified laterality, unspecified part of lung: As mentioned above 4. Acute hypokalemia: Correction provided to follow in the morning 5. Primary hypertension: Home medication reviewed, to continue amlodipine 10 mg and lisinopril 20 mg daily Monitor blood pressure 6. Restless legs syndrome: Home medication reviewed and reconciled to start ropinirole at bedtime 7. Fibromyalgia: And required analgesia and monitoring as per pain scale 8. Atherosclerotic heart disease of [place] coronary artery with other forms of angina pectoris: Continue statins 40 mg daily as per review of the home medicines [place] insignificant There was no aspirin in her medications possible reason could be her iron deficiency anemia in the past Continue to monitor for symptoms Telemetry 9. Hypothyroidism, unspecified type: Continue home dose of levothyroxine 75 mcg daily 10. Moderate episode of recurrent major depressive disorder: Home medication reviewed, to continue on aripiprazole, bupropion and sertraline after reconciliation Plan: VTE: Heparin Diet: Cardiac PDMP PDMP Reviewed: Not Reviewed Attestations Medical Necessity Statement*: Patient will stay more than 2 midnights in ICU due to severe pneumonia requiring BiPAP, JASON, requiring IV steroids and active monitoring Time Spent in Patient Care: Greater than 35 minutes (>than 50% of time spent in counselling and/or direct pt care on unit). Critical Care Time: The high probability of a clinically significant, sudden or life threatening deterioration, as referenced in this documentation, required my full and direct attention, intervention and personal management. The critical care time shown is in addition to time spent performing any reported separately billable procedures and includes the following: [x] Data and vital sign review and interpretation [x] Patient assessment, examination and intervention [x] Medication orders and management [x] Patient/Family updates as able [x] Care Coordination and Documentation. Critical Care Time (min): 36 Other Attestations: Patient condition has been discussed at length with the patient/family, I have independently reviewed the chart labs imaging/diagnostics/EKG. the goals of care and code status with the patient/family/NOK/legal sales representative public utilities, and documented accordingly. I have reconciled the medications after confirmation/comorbidities/current clinical condition. The management has been done according to the current clinical condition with respect to patient goals of care and based on recommendations/guidelines. The patient/family has been informed about the current condition and further plan of care. Agreed with the plan of care and understood without any language barrier. Every effort was made to ensure accuracy of deck engineer. Any obvious errors or omissions should be clarified with the author of the document. Coding Level of Care Code Critical Care >/= 30 minutes Diagnoses Acute hypoxemic respiratory failure J96.01 Acute kidney injury N17.9 Pneumonia due to infectious organism, unspecified laterality, unspecified part of lung J18.9 Acute hypokalemia E87.6 Primary hypertension I10 Hypertension type: primary hypertension Restless legs syndrome G25.81 Fibromyalgia M79.7 Atherosclerotic heart disease of [place] coronary artery with other forms of angina pectoris I25.118 Hypothyroidism, unspecified type E03.9 Hypothyroidism type: unspecified Moderate episode of recurrent major depressive disorder F33.1 Active/Remission status: currently active Major depression episode severity: moderate Major depression recurrence: recurrent
[2025-03-15] MEDS: MELATONIN 3 MG TABLET PO (20:22)
[2025-03-16] VITALS (54 sets, daily range): BP systolic 97–170; BP diastolic 50–86; PULSE 69–112; RESP 16–35; TEMP 36.7–37.3; O2SAT 87–99
[2025-03-16 04:01] LABS: Hematocrit 31.5 % (36-47); Hemoglobin 9.80 g/dL (11.27-16.99); Mean Corpuscular HGB Conc 31.1 g/dL (30-55); Mean Corpuscular Hemoglobin 26.1 pg (27-33); Mean Corpuscular Volume 84.0 fl (85-98); Nucleated Red Blood Cells % 0 %; Platelet Count 289 10^3/cmm (157-399); Red Blood Count 3.75 10^6/uL (3.85-5.65); White Blood Count 23.26 10^3/uL (3.29-11.43)
[2025-03-16 04:19] LABS: Alanine Aminotransferase < 5 U/L (0-33); Albumin Level 3.4 g/dL (3.5-5.2); Alkaline Phosphatase 67 U/L (35-105); Anion Gap 12.3 (5-19); Aspartate Amino Transferase 12 U/L (0-32); Blood Urea Nitrogen 32 mg/dL (8-23); Calcium 8.8 mg/dL (8.5-10.5); Carbon Dioxide 27 mmol/L (22-29); Chloride 105 mmol/L (98-107); Globulin 2.4 g/dL (1.3-4.6); Glucose 102 mg/dL (65-115); Osmolality Calculated 297 mOsm/kg (285-295); Potassium 4.3 mmol/L (3.5-5.1); Sodium 140 mmol/L (136-145); Total Protein 5.8 g/dL (6.6-8.7)
[2025-03-16] MEDS: heparin 5,000 unit/mL INJ 1 mL 5000 UNIT SUBCUT ×2 (07:39→21:11)
[2025-03-16] MEDS: methylPREDNISolone sod succ 125 mg/2 mL INJ 60 MG IVP (07:39)
[2025-03-16] MEDS: cefTRIAXone 1,000 mg SDV 1000 MG IVP (07:42)
[2025-03-16] MEDS: guaiFENesin-dextromethorphan UDC 10 mL PO ×3 (08:49→21:25)
--- NOTE | 2025-03-16 10:09 | PC.SOCIAL ---
IMM Update pg 2 of IMM Updated and reviewed w/ patient. Copy provided and copy dated, initialed and placed in chart.
[2025-03-16] MEDS: oxyCODONE 5 mg IR Tab/Cap PO ×2 (10:16→21:26)
--- NOTE | 2025-03-16 18:04 | PC.NURSE ---
SHift SUmmary: Much improved compared to yesterday. Patient spent nearly the entire day up to a recliner. Was able to transfer to a bedside commode. WOrked with Occupational and physical therapy. Respiratory: Reduced oxygen requirements. Yesterday she was Bipap dependent for nearly the whole day, Today she was able to be on HF nasal Cannula at 7L for nearly the entire day. Only spent an hour and a half on bipap midday while sleeping. Total urine output: 500mL
[2025-03-16] MEDS: MELATONIN 3 MG TABLET PO (21:12)
--- NOTE | 2025-03-16 21:47 | P.PN_ITS ---
Subjective 2 Subjective: The patient was seen in the morning, currently stable. Getting better There is marked leukocytosis this is related to likely steroids Patient is still coughing however more alert and awake. Vitals/I&O/Wt Last Vital Signs Temp 98.0 F 03/16/25 14:30 Pulse 70 03/16/25 20:30 Resp 22 H 03/16/25 21:26 BP 119/58 03/16/25 20:30 Pulse Ox 90 03/16/25 21:26 O2 Del Method Nasal Cannula 03/16/25 18:00 O2 Flow Rate 7 03/16/25 18:00 FiO2 60 03/16/25 12:00 03/16/25 03/16/25 03/16/25 06:59 14:59 22:59 Intake Total 120 / 1430 1610 / 1610 400 / 2010 Output Total 350 / 700 400 / 400 100 / 500 Balance -230 / 730 1210 / 1210 300 / 1510 Weight last 48 hrs Weight 59.48 kg Weight 59.449 kg Physical Exam 2 Narrative: General: Alert and oriented, lying comfortably with BiPAP and able to speak in full sentences, looks frail and weak with signs of high likelihood of physical deconditioning in her age HEENT: Normocephalic, atraumatic, grossly unremarkable exam Cardio: normal rate rhythm, normal S1-S2 without any murmurs, rubs, or gallops and JVD normal Respiratory: Bilateral mild wheezes better than before and crackles heard, no stridor GI: Abdomen soft, nontender, nondistended, normoactive bowel sounds present all 4 quadrants, Neuro: intact cranial nerves motor and sensory and cerebellar/coordination function without any focal neurological deficit Behavior: Appropriate and cooperative Extremities: Adequate palpable pulses, mild trace edema Data 03/16/25 03:41 03/16/25 03:41 Micro: Microbiology 03/15/25 11:30 Sputum Culture - Preliminary Sputum - Expectorated Sputum A&P Assessment and plan 1. Acute hypoxemic respiratory failure: Acute hypoxemic respiratory failure with signs and symptoms of high likelihood of severe pneumonia Respiratory viral panel showed enterovirus infection and continue droplet isolation Chest x-ray clear, however having high WBCs still high and could be under effect of steroids. Broad-spectrum antibiotics with ceftriaxone and azithromycin for 4 to 5 days Methylprednisone 60 mg daily since the patient is having severe pneumonia requiring BiPAP If further deterioration or not improvement then consider escalation of antibiotics Respiratory viral panel showed enteroviral infection. Telemetry monitoring As needed Tylenol for fever Hemodynamics monitoring 2. Acute kidney injury: Patient having acute kidney injury, in the light of sepsis versus prerenal, currently improving Ringer lactate 500 mL fluid bolus Maintenance fluids with normal saline at 50 mL/h Intake output monitoring Daily renal parameters monitoring Monitor electrolytes with correction accordingly If the renal functions are not improving then consider acute kidney injury workup including ultrasound and urine studies. 3. Pneumonia due to infectious organism, unspecified laterality, unspecified part of lung: As mentioned above 4. Acute hypokalemia: Correction provided to follow in the morning 5. Primary hypertension: Home medication reviewed, to continue amlodipine 10 mg and lisinopril 20 mg daily Monitor blood pressure 6. Restless legs syndrome: Home medication reviewed and reconciled to start ropinirole at bedtime 7. Fibromyalgia: And required analgesia and monitoring as per pain scale 8. Atherosclerotic heart disease of [place] coronary artery with other forms of angina pectoris: Continue statins 40 mg daily as per review of the home medicines [place] insignificant There was no aspirin in her medications possible reason could be her iron deficiency anemia in the past Continue to monitor for symptoms Telemetry 9. Hypothyroidism, unspecified type: Continue home dose of levothyroxine 75 mcg daily 10. Moderate episode of recurrent major depressive disorder: Home medication reviewed, to continue on aripiprazole, bupropion and sertraline after reconciliation Plan: VTE: Heparin Diet: Cardiac PDMP PDMP Reviewed: Not Reviewed Attestations 2 Medical Necessity Statement*: Patient will stay more than 2 midnights for the management of acute hypoxemic respiratory failure requiring oxygen therapy and ICU monitoring secondary to enteroviral infection Time Spent in Patient Care: 16 - 35 minutes (>than 50% of time sp ent in counselling and/or direct pt care on unit) . Critical Care Time: The high probability of a clinically significant, sudden or life threatening deterioration, as referenced in this documentation, required my full and direct attention, intervention and personal management. The critical care time shown is in addition to time spent performing any reported separately billable procedures and includes the following: [x] Data and vital sign review and interpretation [x ] Patient assessment, examination and intervention [x] Medication orders and management [x] Patient/Family updates as able [x] Care Coordination and Documentation. Critical Care Time (min): 35 Other Attestations: Patient condition has been discussed at length with the patient/family, I have independently reviewed the chart labs imaging/diagnostics/EKG. the goals of care and code status with the patient/family/NOK/legal branch sales and service representative, and documented accordingly. I have reconciled the medications after confirmation/comorbidities/current clinical condition. The management has been done according to the current clinical condition with respect to patient goals of care and based on recommendations/guidelines. The patient/family has been informed about the current condition and further plan of care. Agreed with the plan of care and understood without any language barrier. Every effort was made to ensure accuracy of compliance monitor. Any obvious errors or omissions should be clarified with the author of the document. Coding Level of Care Code Critical Care >/= 30 minutes Diagnoses Acute hypoxemic respiratory failure J96.01 Acute kidney injury N17.9 Pneumonia due to infectious organism, unspecified laterality, unspecified part of lung J18.9 Acute hypokalemia E87.6 Primary hypertension I10 Hypertension type: primary hypertension Restless legs syndrome G25.81 Fibromyalgia M79.7 Atherosclerotic heart disease of [place] coronary artery with other forms of angina pectoris I25.118 Hypothyroidism, unspecified type E03.9 Hypothyroidism type: unspecified Moderate episode of recurrent major depressive disorder F33.1 Major depression recurrence: recurrent Active/Remission status: currently active Major depression episode severity: moderate
[2025-03-17] VITALS (69 sets, daily range): BP systolic 118–156; BP diastolic 57–84; PULSE 67–100; RESP 12–33; TEMP 36.6–37.3; O2SAT 90–100
[2025-03-17] MEDS: oxyCODONE 5 mg IR Tab/Cap PO ×3 (04:17→20:34)
[2025-03-17 06:41] LABS: Alanine Aminotransferase 6 U/L (0-33); Albumin Level 3.4 g/dL (3.5-5.2); Alkaline Phosphatase 91 U/L (35-105); Anion Gap 12.8 (5-19); Aspartate Amino Transferase 12 U/L (0-32); Blood Urea Nitrogen 34 mg/dL (8-23); Calcium 8.4 mg/dL (8.5-10.5); Carbon Dioxide 26 mmol/L (22-29); Chloride 109 mmol/L (98-107); Globulin 2.6 g/dL (1.3-4.6); Glucose 107 mg/dL (65-115); Osmolality Calculated 304 mOsm/kg (285-295); Potassium 4.8 mmol/L (3.5-5.1); Sodium 143 mmol/L (136-145); Total Protein 6.0 g/dL (6.6-8.7)
[2025-03-17 06:52] LABS: Hematocrit 32.3 % (36-47); Hemoglobin 9.60 g/dL (11.27-16.99); Mean Corpuscular HGB Conc 29.7 g/dL (30-55); Mean Corpuscular Hemoglobin 25.9 pg (27-33); Mean Corpuscular Volume 87.1 fl (85-98); Nucleated Red Blood Cells % 0 %; Platelet Count 275 10^3/cmm (157-399); Red Blood Count 3.71 10^6/uL (3.85-5.65); White Blood Count 22.14 10^3/uL (3.29-11.43)
[2025-03-17] MEDS: methylPREDNISolone sod succ 125 mg/2 mL INJ 60 MG IVP (07:43)
[2025-03-17] MEDS: heparin 5,000 unit/mL INJ 1 mL 5000 UNIT SUBCUT (07:44)
[2025-03-17] MEDS: cefTRIAXone 1,000 mg SDV 1000 MG IVP (07:44)
[2025-03-17] MEDS: guaiFENesin-dextromethorphan UDC 10 mL PO ×2 (08:12→20:39)
[2025-03-17] MEDS: piperacillin-tazobactam 3.375 GM in sodium chloride 0.9% (plus) 50 ML IV ×2 (09:10→16:53)
--- NOTE | 2025-03-17 18:46 | PC.NURSE ---
Dr. Harding ordered to hold heparin sub q due to hematuria.
[2025-03-17] MEDS: MELATONIN 3 MG TABLET PO (20:34)
--- NOTE | 2025-03-17 20:42 | P.PN_ITS ---
Subjective 2 Subjective: The patient was seen in the morning, currently stable. Getting better There is marked leukocytosis this is related to likely steroids Patient is still coughing however more alert and awake. overall improving but slowly mild hematuria noted, no significant drop in hb or unstable hemodynamics Vitals/I&O/Wt Last Vital Signs Temp 97.8 F 03/17/25 20:14 Pulse 70 03/17/25 19:30 Resp 22 H 03/17/25 20:34 BP 144/84 03/17/25 20:00 Pulse Ox 100 03/17/25 19:30 O2 Del Method Nasal Cannula 03/17/25 18:00 O2 Flow Rate 4 03/17/25 18:00 FiO2 60 03/17/25 02:56 03/17/25 03/17/25 03/17/25 06:59 14:59 22:59 Intake Total 1200 / 3891.667 1464.167 / 1464.167 695.833 / 2160.000 Output Total 250 / 750 175 / 175 300 / 475 Balance 950 / 3141.667 1289.167 / 1289.167 395.833 / 1685.000 Weight last 48 hrs Weight 60.2 kg Weight 59.48 kg Physical Exam 2 Narrative: General: Alert and oriented, lying comfortably with BiPAP and able to speak in full sentences, looks frail and weak with signs of high likelihood of physical deconditioning in her age HEENT: Normocephalic, atraumatic, grossly unremarkable exam Cardio: normal rate rhythm, normal S1-S2 without any murmurs, rubs, or gallops and JVD normal Respiratory: Bilateral mild wheezes better than before and crackles heard, no stridor, coarse crackles bilaterally there are changes with coughing related to secretions GI: Abdomen soft, nontender, nondistended, normoactive bowel sounds present all 4 quadrants, Neuro: intact cranial nerves motor and sensory and cerebellar/coordination function without any focal neurological deficit Behavior: Appropriate and cooperative Extremities: Adequate palpable pulses, mild trace edema, Lopez catheter?pinkish in color urine output likely mild hematuria possible dehydration? Data 03/17/25 05:42 03/17/25 05:42 Micro: Microbiology 03/15/25 11:30 Sputum Culture - Final Sputum - Expectorated Sputum A&P Assessment and plan 1. Acute hypoxemic respiratory failure: Acute hypoxemic respiratory failure with signs and symptoms of high likelihood of severe pneumonia Respiratory viral panel showed enterovirus infection and continue droplet isolation still having high WBCs, and slow clinical improvement? escalated abx to vancomycin without bolus and zosyn, follow MRS Methylprednisone 60 mg daily for 5-7 days for severe pneumonia Telemetry monitoring As needed Tylenol for fever Hemodynamics monitoring 2. Acute kidney injury: Patient having acute kidney injury, in the light of sepsis versus prerenal, currently improving Continue hydration normal saline at 75 mL/h Daily renal parameters monitoring Intake and output monitoring 3. Pneumonia due to infectious organism, unspecified laterality, unspecified part of lung: As mentioned above 4. Acute hypokalemia: Continue to monitor, currently normal 5. Primary hypertension: Home medication reviewed, to continue amlodipine 10 mg and lisinopril 20 mg daily Monitor blood pressure 6. Restless legs syndrome: Home medication reviewed and reconciled to start ropinirole at bedtime 7. Fibromyalgia: And required analgesia and monitoring as per pain scale 8. Atherosclerotic heart disease of [place] coronary artery with other forms of angina pectoris: Continue statins 40 mg daily as per review of the home medicines [place] insignificant There was no aspirin in her medications possible reason could be her iron deficiency anemia in the past Continue to monitor for symptoms Telemetry 9. Hypothyroidism, unspecified type: Continue home dose of levothyroxine 75 mcg daily 10. Moderate episode of recurrent major depressive disorder: Home medication reviewed, to continue on aripiprazole, bupropion and sertraline after reconciliation 11. Hematuria: Hold heparin, continue hydration Urine analysis and cultures Continue to monitor Plan: VTE: scd, hold heparin Diet: Cardiac PDMP PDMP Reviewed: Not Reviewed Attestations 2 Medical Necessity Statement*: Patient will stay more than 2 midnights for the management of acute hypoxemic respiratory failure requiring oxygen therapy and ICU monitoring secondary to enteroviral infection Time Spent in Patient Care: 16 - 35 minutes (>than 50% of time sp ent in counselling and/or direct pt care on unit) . Critical Care Time: The high probability of a clinically significant, sudden or life threatening deterioration, as referenced in this documentation, required my full and direct attention, intervention and personal management. The critical care time shown is in addition to time spent performing any reported separately billable procedures and includes the following: [x] Data and vital sign review and interpretation [x ] Patient assessment, examination and intervention [x] Medication orders and management [x] Patient/Family updates as able [x] Care Coordination and Documentation. Critical Care Time (min): 35 Other Attestations: Patient condition has been discussed at length with the patient/family, I have independently reviewed the chart labs imaging/diagnostics/EKG. the goals of care and code status with the patient/family/NOK/legal sales representative raw fibers, and documented accordingly. I have reconciled the medications after confirmation/comorbidities/current clinical condition. The management has been done according to the current clinical condition with respect to patient goals of care and based on recommendations/guidelines. The patient/family has been informed about the current condition and further plan of care. Agreed with the plan of care and understood without any language barrier. Every effort was made to ensure accuracy of sheet metal shop supervisor. Any obvious errors or omissions should be clarified with the author of the document. Coding Level of Care Code Critical Care >/= 30 minutes Diagnoses Acute hypoxemic respiratory failure J96.01 Acute kidney injury N17.9 Pneumonia due to infectious organism, unspecified laterality, unspecified part of lung J18.9 Acute hypokalemia E87.6 Primary hypertension I10 Hypertension type: primary hypertension Restless legs syndrome G25.81 Fibromyalgia M79.7 Atherosclerotic heart disease of [place] coronary artery with other forms of angina pectoris I25.118 Hypothyroidism, unspecified type E03.9 Hypothyroidism type: unspecified Moderate episode of recurrent major depressive disorder F33.1 Major depression recurrence: recurrent Active/Remission status: currently active Major depression episode severity: moderate Hematuria R31.9
--- NOTE | 2025-03-17 20:58 | PHA.VACGOAL ---
Vancomycin Goal - Goal Vancomycin Goal:: 15-20 mg/L Vancomycin Indication:: Pneumonia - Therapy Day of therpy:: Day []of [] . Actual body weight (kg): 60.2 kg - Data Labs: WBC 22.14 10^3/uL (3.29-11.43) H 03/17/25 05:42 RBC 3.71 10^6/uL (3.85-5.65) L 03/17/25 05:42 Hgb 9.60 g/dL (11.27-16.99) L 03/17/25 05:42 Hct 32.3 % (36-47) L 03/17/25 05:42 MCV 87.1 fl (85-98) 03/17/25 05:42 MCH 25.9 pg (27-33) L 03/17/25 05:42 MCHC 29.7 g/dL (30-55) L 03/17/25 05:42 RDW 15.9 % (12.1-15.1) H 03/17/25 05:42 Sodium 143 mmol/L (136-145) 03/17/25 05:42 Potassium 4.8 mmol/L (3.5-5.1) 03/17/25 05:42 Chloride 109 mmol/L (98-107) H 03/17/25 05:42 Carbon Dioxide 26 mmol/L (22-29) 03/17/25 05:42 Anion Gap 12.8 (5-19) 03/17/25 05:42 BUN 34 mg/dL (8-23) H 03/17/25 05:42 Creatinine 1.2 mg/dL (0.5-0.9) H 03/17/25 05:42 GFR Calculation Not Reportable 03/17/25 05:42 Treatment plan:: new consult Regimen:: JASON NO BOLUS DOSE PER SAAVEDRA 750 MG Q24H
[2025-03-17 22:40] LABS: Glucose Urine UA Negative (Normal); Nitrate Urine Negative (Negative); Specific Gravity, Urine 1.022 (1.005-1.030)
[2025-03-17 22:45] LABS: Add Urine Microscopic? YES
[2025-03-17 23:51] LABS: MRSA PCR OZH (swab) NOT DETECTED (Not Detecte)
[2025-03-18] VITALS (53 sets, daily range): BP systolic 136–186; BP diastolic 62–99; PULSE 70–82; RESP 13–62; TEMP 36.7–37.3; O2SAT 90–100
[2025-03-18] MEDS: piperacillin-tazobactam 3.375 GM in sodium chloride 0.9% (plus) 50 ML IV ×3 (01:03→17:54)
[2025-03-18] MEDS: oxyCODONE 5 mg IR Tab/Cap PO ×2 (04:40→20:20)
[2025-03-18 04:42] LABS: Hematocrit 32.3 % (36-47); Hemoglobin 9.50 g/dL (11.27-16.99); Mean Corpuscular HGB Conc 29.4 g/dL (30-55); Mean Corpuscular Hemoglobin 25.6 pg (27-33); Mean Corpuscular Volume 87.1 fl (85-98); Nucleated Red Blood Cells % 0 %; Platelet Count 277 10^3/cmm (157-399); Red Blood Count 3.71 10^6/uL (3.85-5.65); White Blood Count 14.69 10^3/uL (3.29-11.43)
[2025-03-18 05:12] LABS: Alanine Aminotransferase 7 U/L (0-33); Albumin Level 3.4 g/dL (3.5-5.2); Alkaline Phosphatase 87 U/L (35-105); Anion Gap 11.8 (5-19); Aspartate Amino Transferase 12 U/L (0-32); Blood Urea Nitrogen 30 mg/dL (8-23); Calcium 8.5 mg/dL (8.5-10.5); Carbon Dioxide 27 mmol/L (22-29); Chloride 112 mmol/L (98-107); Globulin 2.5 g/dL (1.3-4.6); Glucose 118 mg/dL (65-115); Osmolality Calculated 309 mOsm/kg (285-295); Potassium 4.8 mmol/L (3.5-5.1); Sodium 146 mmol/L (136-145); Total Protein 5.9 g/dL (6.6-8.7)
[2025-03-18] MEDS: methylPREDNISolone sod succ 125 mg/2 mL INJ 60 MG IVP (08:46)
--- NOTE | 2025-03-18 08:53 | P.PN_ITS ---
Subjective 2 Subjective: The patient was seen in the morning, currently stable. Getting better There is marked leukocytosis and currently with improving Patient is still coughing however the frequency is less and the patient is alert and awake overall improving but slowly Patient can be transferred to the floors mild hematuria noted, no significant drop in hb or unstable hemodynamics, heparin was held and patient currently getting better with hydration Vitals/I&O/Wt Last Vital Signs Temp 98.8 F 03/18/25 04:00 Pulse 70 03/18/25 06:00 Resp 21 H 03/18/25 06:00 BP 166/68 03/18/25 06:00 Pulse Ox 95 03/18/25 05:45 O2 Del Method BiPAP 03/17/25 22:30 O2 Flow Rate 4 03/17/25 18:00 FiO2 60 03/18/25 01:20 03/17/25 03/18/25 03/18/25 22:59 06:59 14:59 Intake Total 1095.833 / 2560.000 50 / 2610.000 1000 / 1000 Output Total 400 / 575 100 / 675 Balance 695.833 / 1985.000 -50 / 2359.383 8962 / 1000 Weight last 48 hrs Weight 60.3 kg Weight 60.2 kg Physical Exam 2 Narrative: General: Alert and oriented, lying comfortably with BiPAP and able to speak in full sentences, looks frail and weak with signs of high likelihood of physical deconditioning in her age HEENT: Normocephalic, atraumatic, grossly unremarkable exam Cardio: normal rate rhythm, normal S1-S2 without any murmurs, rubs, or gallops and JVD normal Respiratory: Bilateral mild wheezes better than before and crackles heard, no stridor, coarse crackles bilaterally there are changes with coughing related to secretions GI: Abdomen soft, nontender, nondistended, normoactive bowel sounds present all 4 quadrants, Neuro: intact cranial nerves motor and sensory and cerebellar/coordination function without any focal neurological deficit Behavior: Appropriate and cooperative Extremities: Adequate palpable pulses, mild trace edema, Lopez catheter?pinkish in color urine output likely mild hematuria possible dehydration currently improving with hydration? Data 03/18/25 04:16 03/18/25 04:16 Micro: Microbiology 03/15/25 11:30 Sputum Culture - Final Sputum - Expectorated Sputum A&P Assessment and plan 1. Acute hypoxemic respiratory failure: Acute hypoxemic respiratory failure with signs and symptoms of high likelihood of severe pneumonia Enteroviral infection Echo WBC is improving, follow blood cultures, prelim negative Discontinue vancomycin and continue Zosyn Methylprednisone 60 mg daily until -- Telemetry monitoring As needed Tylenol for fever Hemodynamics monitoring 2. Hematuria: Hold heparin, continue hydration Urine analysis and cultures Continue to monitor If hematuria improving, then consider resuming heparin 3. Acute kidney injury: Possible prerenal secondary to sepsis and dehydration, resolved and at baseline Continue hydration normal saline for another 24 hours and reassess Daily renal parameters monitoring Intake and output monitoring 4. Pneumonia due to infectious organism, unspecified laterality, unspecified part of lung: As mentioned above 5. Acute hypokalemia: Continue to monitor, currently normal 6. Primary hypertension: Home medication reviewed, to continue amlodipine 10 mg and lisinopril 20 mg daily Monitor blood pressure 7. Restless legs syndrome: Home medication reviewed and reconciled to start ropinirole at bedtime 8. Fibromyalgia: And required analgesia and monitoring as per pain scale 9. Atherosclerotic heart disease of [place] coronary artery with other forms of angina pectoris: Continue statins 40 mg daily as per review of the home medicines [place] insignificant There was no aspirin in her medications possible reason could be her iron deficiency anemia in the past Continue to monitor for symptoms Telemetry 10. Hypothyroidism, unspecified type: Continue home dose of levothyroxine 75 mcg daily 11. Moderate episode of recurrent major depressive disorder: Home medication reviewed, to continue on aripiprazole, bupropion and sertraline after reconciliation Plan: VTE: scd, hold heparin Diet: Cardiac PDMP PDMP Reviewed: Not Reviewed Attestations 2 Medical Necessity Statement*: Patient will stay more than 2 midnights for the management of severe community- acquired pneumonia requiring escalation of antibiotics and continuous monitoring and pending ID recommendation Time Spent in Patient Care: 16 - 35 minutes (>than 50% of time sp ent in counselling and/or direct pt care on unit) . Other Attestations: Patient condition has been discussed at length with the patient/family, I have independently reviewed the chart labs imaging/diagnostics/EKG. the goals of care and code status with the patient/family/NOK/legal sales representative supervisor, and documented accordingly. I have reconciled the medications after confirmation/comorbidities/current clinical condition. The management has been done according to the current clinical condition with respect to patient goals of care and based on recommendations/guidelines. The patient/family has been informed about the current condition and further plan of care. Agreed with the plan of care and understood without any language barrier. Every effort was made to ensure accuracy of carbide tool die maker. Any obvious errors or omissions should be clarified with the author of the document. Coding Level of Care Code 35601 Diagnoses Acute hypoxemic respiratory failure J96.01 Hematuria R31.9 Acute kidney injury N17.9 Pneumonia due to infectious organism, unspecified laterality, unspecified part of lung J18.9 Acute hypokalemia E87.6 Primary hypertension I10 Hypertension type: primary hypertension Restless legs syndrome G25.81 Fibromyalgia M79.7 Atherosclerotic heart disease of [place] coronary artery with other forms of angina pectoris I25.118 Hypothyroidism, unspecified type E03.9 Hypothyroidism type: unspecified Moderate episode of recurrent major depressive disorder F33.1 Active/Remission status: currently active Major depression episode severity: moderate Major depression recurrence: recurrent
[2025-03-18] MEDS: guaiFENesin-dextromethorphan UDC 10 mL PO ×3 (12:12→22:43)
--- NOTE | 2025-03-18 14:58 | USCV_ITS ---
Ivan Peguero Age: 79 Gender: F : 1945 Exam Date: 03/18/2025 20:24 Ordering Phys: Andrew Harding MD Technologist: YUDY Exam Location: [facility] [place] Indication: shortness of breath, history of Vtach, pacer, MR, , HTN, CAD BP: 141 / 99 HR: 67 Rhythm: Paced rhythm Technical Quality: Adequate MEASUREMENTS (Male / Female) Normal Values 2D ECHO LV Diastolic Diameter PLAX 3.7 cm 4.2 - 5.9 / 3.9 - 5.3 cm IVS Diastolic Thickness 1.5 cm 0.6 - 1.0 / 0.6 - 0.9 cm IVS Systolic Thickness 1.8 cm LVPW Diastolic Thickness 1.3 cm 0.6 - 1.0 / 0.6 - 0.9 cm LVPW Systolic Thickness 1.9 cm LVOT Diameter 1.8 cm LV Ejection Fraction 2D Teich 63.4 % LV Ejection Fraction MOD 4C 54.2 % LV Ejection Fraction MOD 2C 58.3 % LV Ejection Fraction 2C AL 58.0 % LA Diameter 4.2 cm Aorta at Sinotubular Diameter 3.0 cm IVC Diameter 2.4 cm M-MODE LA Ao Ratio MM 1.4 AV Cusp Separation MM 1.6 cm DOPPLER AV Peak Velocity 191.0 cm/s LVOT Peak Velocity 100.0 cm/s AV Area Cont Eq vti 1.3 cm squared AV Area Cont Eq pk 1.4 cm squared MV Peak Velocity 121.0 cm/s MV Area PHT 5.7 cm squared Mitral E to A Ratio 1.1 TV Peak Velocity 278.5 cm/s TR Peak Velocity 280.0 cm/s TR Peak Gradient 31.4 mmHg TV Peak E Velocity 46.0 cm/s PV Peak Velocity 92.0 cm/s FINDINGS Left Ventricle Normal left ventricular size, systolic function and wall thickness, with no regional wall motion abnormalities. Left ventricular ejection fraction is estimated at 60 %. Grade I/IV diastolic dysfunction (abnormal relaxation filling pattern), normal to mildly elevated filling pressures. Right Ventricle Normal right ventricular size and systolic function. Right Atrium Normal right atrial size. Left Atrium Moderately increased left atrial size. IA Septum Normal appearance of the interatrial septum. Mitral Valve Normal mitral valve structure. No mitral valve stenosis or regurgitation. Aortic Valve Mild aortic valve calcification. No aortic valve stenosis. Trace aortic valve regurgitation. Tricuspid Valve Mild tricuspid valve regurgitation. Pulmonic Valve Normal pulmonic valve structure. No pulmonic valve stenosis or regurgitation. Pericardium No pericardial effusion. Aorta Normal diameter of the aortic root and ascending thoracic aorta. IVC Normal IVC diameter. CONCLUSIONS Normal left ventricular size, systolic function and wall thickness, with no regional wall motion abnormalities. Left ventricular ejection fraction is estimated at 60 %. Grade I/IV diastolic dysfunction (abnormal relaxation filling pattern), normal to mildly elevated filling pressures. Moderately increased left atrial size. Mild aortic valve calcification. No aortic valve stenosis. Trace aortic valve regurgitation. Mild tricuspid valve regurgitation. There is no pericardial effusion. Right atrial pressure is around 5 mm of mercury. Estela Corado MD (Electronically Signed) Final Date: 18 March 2025 21:24 S
[2025-03-18] MEDS: MELATONIN 3 MG TABLET PO (20:14)
--- NOTE | 2025-03-18 20:42 | PC.NURSE ---
Patient refused 2100 dose of stool softeners due to having episodes of diarrhea today.
--- NOTE | 2025-03-18 22:20 | PC.NURSE ---
Report called to ROWAN Valencia on [facility]. Patient transported in ICU bed to room 275 with mask due to being on droplet precautions. Patient confirmed she had all belongings, including a cross necklace that broke during her admission and was placed in a specimen cup with her director environmental it and she wanted placed on her bedside table once in her new room.
[2025-03-19] VITALS (13 sets, daily range): BP systolic 157–183; BP diastolic 70–80; PULSE 69–73; RESP 15–20; TEMP 36.4–37.2; O2SAT 3–100
[2025-03-19] MEDS: piperacillin-tazobactam 3.375 GM in sodium chloride 0.9% (plus) 50 ML IV ×3 (01:19→17:10)
[2025-03-19 05:30] LABS: Hematocrit 31.5 % (36-47); Hemoglobin 9.70 g/dL (11.27-16.99); Mean Corpuscular HGB Conc 30.8 g/dL (30-55); Mean Corpuscular Hemoglobin 26.1 pg (27-33); Mean Corpuscular Volume 84.7 fl (85-98); Nucleated Red Blood Cells % 0.1 %; Platelet Count 295 10^3/cmm (157-399); Red Blood Count 3.72 10^6/uL (3.85-5.65); White Blood Count 15.35 10^3/uL (3.29-11.43)
[2025-03-19 05:57] LABS: Alanine Aminotransferase 9 U/L (0-33); Albumin Level 3.3 g/dL (3.5-5.2); Alkaline Phosphatase 73 U/L (35-105); Anion Gap 9.8 (5-19); Aspartate Amino Transferase 16 U/L (0-32); Blood Urea Nitrogen 20 mg/dL (8-23); Calcium 8.7 mg/dL (8.5-10.5); Carbon Dioxide 27 mmol/L (22-29); Chloride 113 mmol/L (98-107); Globulin 2.5 g/dL (1.3-4.6); Glucose 102 mg/dL (65-115); Osmolality Calculated 305 mOsm/kg (285-295); Potassium 3.8 mmol/L (3.5-5.1); Sodium 146 mmol/L (136-145); Total Protein 5.8 g/dL (6.6-8.7)
[2025-03-19] MEDS: guaiFENesin-dextromethorphan UDC 10 mL PO ×2 (06:51→17:53)
[2025-03-19] MEDS: oxyCODONE 5 mg IR Tab/Cap PO ×2 (06:51→20:49)
--- NOTE | 2025-03-19 15:29 | PM.PN ---
Subjective Subjective: The patient was seen in the morning, currently stable. Patient marked leukocytosis improved significantly Patient shortness of breath and cough is getting better Vitals/I&O/Wt Last Vital Signs Temp 98.3 F 03/19/25 11:32 Pulse 71 03/19/25 13:59 Resp 18 03/19/25 13:59 BP 157/74 03/19/25 11:32 Pulse Ox 90 03/19/25 13:59 O2 Del Method High Flow Nasal Cannula 03/19/25 13:59 O2 Flow Rate 2 03/19/25 13:59 FiO2 60 03/18/25 01:20 03/19/25 03/19/25 03/19/25 06:59 14:59 22:59 Intake Total 50 / 3130 1410 / 1410 Output Total 1600 / 2700 Balance -1550 / 430 1410 / 1410 Weight last 48 hrs Weight 61.779 kg Weight 60.3 kg Physical Exam Narrative: General: Alert and oriented, sitting comfortably with 3 to 4 L oxygen through nasal cannula and able to speak in full sentences, looks frail and weak with signs of high likelihood of physical deconditioning in her age HEENT: Normocephalic, atraumatic, grossly unremarkable exam Cardio: normal rate rhythm, normal S1-S2 without any murmurs, rubs, or gallops and JVD normal Respiratory: Bilateral mild wheezes better than yesterday and mild crackles heard that are related to secretions, no stridor,. GI: Abdomen soft, nontender, nondistended, normoactive bowel sounds present all 4 quadrants, Neuro: intact cranial nerves motor and sensory and cerebellar/coordination function without any focal neurological deficit Behavior: Appropriate and cooperative Extremities: Adequate palpable pulses, mild trace edema, on Lopez's catheter, urine color improving Data 03/19/25 05:15 03/19/25 05:15 Micro: Microbiology 03/18/25 12:47 Blood Culture - Preliminary Blood NEGATIVE TO DATE 03/18/25 12:29 Blood Culture - Preliminary Blood NEGATIVE TO DATE 03/17/25 22:18 Urine Culture - Preliminary Urine,Clean Catch A&P Assessment and plan 1. Acute hypoxemic respiratory failure: Acute hypoxemic respiratory failure with signs and symptoms of high likelihood of severe pneumonia Enteroviral infection Echo WBC is improving, follow blood cultures, prelim negative Discontinue vancomycin and continue Zosyn and later to tailor at the time of discharge based on cultures. Methylprednisone 60 mg daily was given for 2 to 3 days, patient currently better, continue oral prednisone 40 mg for another 3 to 5 days. Telemetry monitoring As needed Tylenol for fever Hemodynamics monitoring 2. Hematuria: Hold heparin, continue hydration Urine analysis and cultures Continue to monitor If hematuria improving, then consider resuming heparin 3. Acute kidney injury: Possible prerenal secondary to sepsis and dehydration, resolved and at baseline Continue hydration normal saline for another 24 hours and reassess Daily renal parameters monitoring Intake and output monitoring 4. Pneumonia due to infectious organism, unspecified laterality, unspecified part of lung: As mentioned above 5. Acute hypokalemia: Continue to monitor, currently normal 6. Primary hypertension: Home medication reviewed, to continue amlodipine 10 mg and lisinopril 20 mg daily Monitor blood pressure 7. Restless legs syndrome: Home medication reviewed and reconciled to start ropinirole at bedtime 8. Fibromyalgia: And required analgesia and monitoring as per pain scale 9. Atherosclerotic heart disease of [place] coronary artery with other forms of angina pectoris: Continue statins 40 mg daily as per review of the home medicines [place] insignificant There was no aspirin in her medications possible reason could be her iron deficiency anemia in the past Continue to monitor for symptoms Telemetry 10. Hypothyroidism, unspecified type: Continue home dose of levothyroxine 75 mcg daily 11. Moderate episode of recurrent major depressive disorder: Home medication reviewed, to continue on aripiprazole, bupropion and sertraline after reconciliation Plan: VTE: scd, hold heparin Diet: Cardiac PDMP PDMP Reviewed: Not Reviewed Attestations Medical Necessity Statement*: Patient will stay over midnight for the management of severe pneumonia requiring oxygen and IV therapy and related to discharge based on the culture results with further immigration case manager on board for transferring back to residential Time Spent in Patient Care: 16 - 35 minutes (>than 50% of time spent in counselling and/or direct pt care on unit). Other Attestations: Patient condition has been discussed at length with the patient/family, I have independently reviewed the chart labs imaging/diagnostics/EKG. the goals of care and code status with the patient/family/NOK/legal account manager sales representative, and documented accordingly. I have reconciled the medications after confirmation/comorbidities/current clinical condition. The management has been done according to the current clinical condition with respect to patient goals of care and based on recommendations/guidelines. The patient/family has been informed about the current condition and further plan of care. Agreed with the plan of care and understood without any language barrier. Every effort was made to ensure accuracy of quality assurance project manager. Any obvious errors or omissions should be clarified with the author of the document. Coding Level of Care Code 51741 Diagnoses Acute hypoxemic respiratory failure J96.01 Hematuria R31.9 Acute kidney injury N17.9 Pneumonia due to infectious organism, unspecified laterality, unspecified part of lung J18.9 Acute hypokalemia E87.6 Primary hypertension I10 Hypertension type: primary hypertension Restless legs syndrome G25.81 Fibromyalgia M79.7 Atherosclerotic heart disease of [place] coronary artery with other forms of angina pectoris I25.118 Hypothyroidism, unspecified type E03.9 Hypothyroidism type: unspecified Moderate episode of recurrent major depressive disorder F33.1 Major depression recurrence: recurrent Active/Remission status: currently active Major depression episode severity: moderate
[2025-03-19] MEDS: MELATONIN 3 MG TABLET PO (20:12)
[2025-03-20] VITALS (10 sets, daily range): BP systolic 163–183; BP diastolic 73–84; PULSE 68–80; RESP 16–20; TEMP 36.6–37; O2SAT 3–96
[2025-03-20] MEDS: piperacillin-tazobactam 3.375 GM in sodium chloride 0.9% (plus) 50 ML IV ×2 (00:48→09:20)
[2025-03-20] MEDS: oxyCODONE 5 mg IR Tab/Cap PO (05:05)
[2025-03-20] MEDS: guaiFENesin-dextromethorphan UDC 10 mL PO (05:05)
[2025-03-20 06:22] LABS: Hematocrit 34.7 % (36-47); Hemoglobin 10.90 g/dL (11.27-16.99); Mean Corpuscular HGB Conc 31.4 g/dL (30-55); Mean Corpuscular Hemoglobin 25.4 pg (27-33); Mean Corpuscular Volume 80.9 fl (85-98); Nucleated Red Blood Cells % 0 %; Platelet Count 307 10^3/cmm (157-399); Red Blood Count 4.29 10^6/uL (3.85-5.65); White Blood Count 12.51 10^3/uL (3.29-11.43)
[2025-03-20 06:39] LABS: Alanine Aminotransferase 9 U/L (0-33); Albumin Level 3.2 g/dL (3.5-5.2); Alkaline Phosphatase 78 U/L (35-105); Anion Gap 13.0 (5-19); Aspartate Amino Transferase 13 U/L (0-32); Blood Urea Nitrogen 14 mg/dL (8-23); Calcium 8.6 mg/dL (8.5-10.5); Carbon Dioxide 28 mmol/L (22-29); Chloride 104 mmol/L (98-107); Globulin 2.7 g/dL (1.3-4.6); Glucose 143 mg/dL (65-115); Osmolality Calculated 295 mOsm/kg (285-295); Potassium 4.0 mmol/L (3.5-5.1); Sodium 141 mmol/L (136-145); Total Protein 5.9 g/dL (6.6-8.7)
--- NOTE | 2025-03-20 14:41 | PC.SOCIAL ---
*IMM* Patient received a copy of the important message from Medicare. Copy initialled and dated in chart.
--- NOTE | 2025-03-20 22:58 | PM.DCS ---
Discharge Providers Date of Admission: 03/14/25 08:14 Date of Discharge: March 20, 2025 Attending Provider at Admission: Andrew Harding MD Attending Provider at Discharge: Andrew Harding MD Primary Care Provider: Lynda Lopez MD Diagnoses at Discharge Discharge Diagnosis 1. Acute hypoxemic respiratory failure: 2. Hematuria: 3. Acute kidney injury: 4. Pneumonia due to infectious organism, unspecified laterality, unspecified part of lun. Acute hypokalemia: 6. Primary hypertension: 7. Restless legs syndrome: 8. Fibromyalgia: 9. Atherosclerotic heart disease of [place] coronary artery with other forms of angina pectoris: 10. Hypothyroidism, unspecified type: 11. Moderate episode of recurrent major depressive disorder: Reason for Visit Reason for Visit: SOB Brief History: As per the previous retrospective notes review and the admitting physician Ivan Peguero is a 79 year old female with a history of ventricular tachycardia, pacemaker placement, depression, mitral regurg, aortic valve stenosis, hypothyroidism, hyperlipidemia, hypertension, coronary artery disease, restless leg syndrome and fibromyalgia who presents emergency [facility] from [facility] with shortness of breath. She says she has not felt well for 3 days now. The patient further reported that she was having cough and mild shortness of breath at [facility]. The cough was mild productive in nature and associated with febrile illness with fever and chills. Since the patient was at [facility] therefore there is also consideration of having possible sick contact The patient did not report any chest pain, chest pressure,. No recent travel. No history of abdominal pain or diarrhea. No increase in lower leg swellings. No dizziness or syncope or presyncope. Rest of the review of system unremarkable Hospital Course Hospital Course During patient hospital stay she was admitted as a case pneumonia and shortness of breath with element of acute hypoxemic respiratory failure and mild sepsis with mild JASON which was secondary to dehydration rather than sepsis and continued hydration which improved her kidney dysfunction. Blood cultures were negative, urine culture was also negative. And sputum culture did not show any growth. Respiratory viral panel showed positive enteroviral infection and she was treated with supportive management. Chest x-ray was suggestive of some bibasilar opacities which was also evident on clinical examination with mild wheezing and coarse crackles. The patient was having adequate cough and secretion that were expectorated through chest physiotherapy and adequate nebulizations. The patient was kept on initial ceftriaxone and azithromycin and later escalated to Zosyn with further improvement. The patient leukocytes massively improved and she was also getting better. He had mild hematuria which resolved with adequate hydration. Heparin was also held in the light of hematuria and was put on SCDs. She was discharged on levofloxacin and short dose of steroids. The patient appreciated the medical team management. Patient was provided with medications that were were reconciled after confirmation and according to patient comorbidities and appropriate follow-ups and referrals were provided at the time of discharge. patient understanding/establishing the stability of the current condition was considered during discharge with all the risk and benefits thoroughly explained. Patient condition has been discussed at length with the patient/family, I have independently reviewed the chart labs imaging/diagnostics/EKG. the goals of care and code status with the patient/family/NOK/legal underwriting account representative, and documented accordingly. The management has been done according to the current clinical condition with respect to patient goals of care and based on recommendations/guidelines. The patient/family has been informed about the current condition and further plan of care. Agreed with the plan of care and understood without any language barrier. Every effort was made to ensure accuracy of wireless construction manager. Any obvious errors or omissions should be clarified with the author of the document. Physical Exam Narrative: General: Alert and oriented, sitting comfortably with 3 to 4 L oxygen through nasal cannula and able to speak in full sentences, looks frail and weak with signs of high likelihood of physical deconditioning in her age HEENT: Normocephalic, atraumatic, grossly unremarkable exam Cardio: normal rate rhythm, normal S1-S2 without any murmurs, rubs, or gallops and JVD normal Respiratory: Equal air entry, no wheezes or stridor heard. Mild coarse crackles at the bases improving with coughing. GI: Abdomen soft, nontender, nondistended, normoactive bowel sounds present all 4 quadrants, Neuro: intact cranial nerves motor and sensory and cerebellar/coordination function without any focal neurological deficit Behavior: Appropriate and cooperative Extremities: Adequate palpable pulses, mild trace edema. Discharge Data Studies Completed and Pending Completed Studies During Hospitalization Category Date Time Status CXRP [XR chest 1V portable [id number]] Stat Exams 03/14/25 05:25 Completed XR chest 1V portable [id number] Stat Exams 03/14/25 07:36 Completed CV. echo complete* [id number] Routine Ultrasound 03/18/25 14:58 Completed Pending at discharge Category Date Time Status Blood Culture Stat Lab 03/18/25 12:47 Results Radiology Impressions Chest X-Ray 03/14/25 07:36 IMPRESSION: No significant interval change. Laboratory Results WBC 12.51 10^3/uL (3.29-11.43) H 03/20/25 05:45 RBC 4.29 10^6/uL (3.85-5.65) 03/20/25 05:45 Hgb 10.90 g/dL (11.27-16.99) L 03/20/25 05:45 Hct 34.7 % (36-47) L 03/20/25 05:45 MCV 80.9 fl (85-98) L 03/20/25 05:45 MCH 25.4 pg (27-33) L 03/20/25 05:45 MCHC 31.4 g/dL (30-55) 03/20/25 05:45 RDW 15.6 % (12.1-15.1) H 03/20/25 05:45 Plt Count 307 10^3/cmm (157-399) 03/20/25 05:45 MPV 9.8 fL (7.4-10.4) 03/20/25 05:45 Neut % (Auto) 86.5 % 03/20/25 05:45 Lymph % (Auto) 6.1 % 03/20/25 05:45 [place] % (Auto) 4.8 % 03/20/25 05:45 Eos % (Auto) 0.0 % 03/20/25 05:45 Baso % (Auto) 0.2 % 03/20/25 05:45 Neut # (Auto) 10.83 10^3/uL (1.8-7.7) H 03/20/25 05:45 Lymph # (Auto) 0.8 10^3/uL (0.8-4.8) 03/20/25 05:45 [place] # (Auto) 0.6 10^3/uL (0.2-0.9) 03/20/25 05:45 Eos # (Auto) 0.0 10^3/uL (0.0-0.8) 03/20/25 05:45 Baso # (Auto) 0.0 10^3/uL (0.0-0.1) 03/20/25 05:45 Nucleated RBC % (auto) 0 % 03/20/25 05:45 Nucleated RBCs # 0.0 /100WBC 03/20/25 05:45 Specimen Type Arterial 03/14/25 07:22 Sample Site Radial, left 03/14/25 07:22 ABG pH 7.41 (7.35-7.45) 03/14/25 07:22 ABG pCO2 44.0 mmHg (35-45) 03/14/25 07:22 ABG pO2 41.6 mmHg (80.0-100.0) L 03/14/25 07:22 ABG HCO3 28.1 mmol/L (22-26) H 03/14/25 07:22 ABG O2 Saturation 79.9 03/14/25 07:22 ABG Base Excess 3.1 mmol/L (-2.0-2.0) H 03/14/25 07:22 Fabricio Test Pos 03/14/25 07:22 VBG pH 7.43 (7.32-7.42) H 03/14/25 05:40 VBG pCO2 42.4 mmHg (41-51) 03/14/25 05:40 VBG pO2 50.0 mmHg (25-40) H 03/14/25 05:40 VBG HCO3 28.1 mmol/L (24-28) H 03/14/25 05:40 VBG Base Excess 3.4 mmol/L (-3.0-3.0) H 03/14/25 05:40 VBG Hematocrit 37.7 % (37-47) 03/14/25 05:40 A-a O2 Gradient 6.9 mmHg (5-10) 03/14/25 07:22 Hematocrit 37.0 % (37-47) 03/14/25 07:22 Hgb O2 Saturation 78.3 % (95-100) L 03/14/25 07:22 Carboxyhemoglobin 0.7 %THgb (0.4-20.1) 03/14/25 07:22 Methemoglobin 1.2 % (0.4-1.5) 03/14/25 07:22 Total Hemoglobin 12.1 g/dL (12-16) 03/14/25 07:22 Sodium 143.0 mmol/L (131-143) 03/14/25 07:22 Potassium 3.3 mmol/L (3.5-5.0) L 03/14/25 07:22 Glucose 139.0 mg/dL (70-115) H 03/14/25 07:22 Ionized Calcium 1.2 mmol/L (1.1-1.4) 03/14/25 07:22 O2 Delivery Device Oxy mask 03/14/25 07:22 O2 Liters/Min 15.0 % 03/14/25 07:22 FiO2 44.0 % 03/14/25 05:40 Microsoft Bi Consultant ID [place] 03/14/25 07:22 Sodium 141 mmol/L (136-145) 03/20/25 05:45 Potassium 4.0 mmol/L (3.5-5.1) 03/20/25 05:45 Chloride 104 mmol/L (98-107) 03/20/25 05:45 Carbon Dioxide 28 mmol/L (22-29) 03/20/25 05:45 Anion Gap 13.0 (5-19) 03/20/25 05:45 BUN 14 mg/dL (8-23) 03/20/25 05:45 Creatinine 0.8 mg/dL (0.5-0.9) 03/20/25 05:45 GFR Calculation Not Reportable 03/20/25 05:45 Glucose 143 mg/dL (65-115) H 03/20/25 05:45 Calculated Osmolality 295 mOsm/kg (285-295) 03/20/25 05:45 Lactic Acid 1.4 mmol/L (0.5-2.2) 03/14/25 05:41 Calcium 8.6 mg/dL (8.5-10.5) 03/20/25 05:45 Phosphorus 3.0 mg/dL (2.5-4.5) 03/14/25 05:41 Magnesium 1.9 mg/dL (1.7-2.3) 03/15/25 04:02 Total Bilirubin 0.9 mg/dL (0.15-1.2) 03/20/25 05:45 AST 13 U/L (0-32) 03/20/25 05:45 ALT 9 U/L (0-33) 03/20/25 05:45 Alkaline Phosphatase 78 U/L (35-105) 03/20/25 05:45 Troponin T Baseline 19 ng/L (0-10) H 03/14/25 05:41 Troponin T 60 Minute 16.71 ng/L (0-10) H 03/14/25 06:42 Delta Troponin T -2.29 ABS# (0-10) L 03/14/25 06:42 C-React Prot High Sens 1.330 mg/dL (0.0-0.3) H 03/14/25 05:41 NT-Pro-B Natriuret Pep 738 pg/mL (0-450) H 03/14/25 05:41 Total Protein 5.9 g/dL (6.6-8.7) L 03/20/25 05:45 Albumin 3.2 g/dL (3.5-5.2) L 03/20/25 05:45 Globulin 2.7 g/dL (1.3-4.6) 03/20/25 05:45 Procalcitonin 0.34 ng/mL (0-0.5) 03/14/25 05:41 Urine Color Red (Yellow) A 03/17/25 22:18 Urine Appearance Cloudy (CLEAR) A 03/17/25 22:18 Urine pH 5.5 (5-7) 03/17/25 22:18 Ur Specific [place] 1.022 (1.005-1.030) 03/17/25 22:18 Urine Protein 2+ (Negative) A 03/17/25 22:18 Urine Glucose (UA) Negative (Normal) 03/17/25 22:18 Urine Ketones Negative (Negative) 03/17/25 22:18 Urine Blood 3+ (Negative) A 03/17/25 22:18 Urine Nitrate Negative (Negative) 03/17/25 22:18 Urine Bilirubin Negative (Negative) 03/17/25 22:18 Urine Urobilinogen 1.0 mg/dL (Negative) 03/17/25 22:18 Ur Leukocyte Esterase 1+ (Negative) A 03/17/25 22:18 Urine RBC >100 /hpf (0-2) H 03/17/25 22:18 Urine WBC 21-50 /hpf (0-5) H 03/17/25 22:18 Ur Squamous Epith Cells 0-5 /hpf (0-5) 03/17/25 22:18 Amorphous Sediment Not Reportable 03/17/25 22:18 Urine Bacteria None seen /hpf (NONE) 03/17/25 22:18 Hyaline Casts 1.74 /lpf 03/17/25 22:18 Nasal MRSA (PCR) Not detected (Not Detecte) 03/17/25 22:20 Adenovirus (PCR) Not detected (NOT DETECT) 03/14/25 08:53 C. pneumoniae DNA (PCR) Not detected (NOT DETECT) 03/14/25 08:53 Coronavirus 229E (PCR) Not detected (NOT DETECT) 03/14/25 08:53 Human Metapneumovir PCR Not detected (NOT DETECT) 03/14/25 08:53 Influenza A (H1) PCR Not detected (NOT DETECT) 03/14/25 08:53 Influenza A (PCR) Negative (Negative) 03/14/25 05:41 Influ A (H1/09) PCR Not detected (NOT DETECT) 03/14/25 08:53 Influenza A (H3) PCR Not detected (NOT DETECT) 03/14/25 08:53 Influenza Type A (PCR) Not detected (NOT DETECT) 03/14/25 08:53 Influenza Type B (PCR) Not detected (NOT DETECT) 03/14/25 08:53 M. pneumoniae (PCR) Not detected (NOT DETECT) 03/14/25 08:53 Parainfluenza 1 (PCR) Not detected (NOT DETECT) 03/14/25 08:53 Parainfluenza 2 (PCR) Not detected (NOT DETECT) 03/14/25 08:53 Parainfluenza 3 (PCR) Not detected (NOT DETECT) 03/14/25 08:53 Parainfluenza 4 (PCR) Not detected (NOT DETECT) 03/14/25 08:53 RSV (PCR) Negative (Negative) 03/14/25 05:41 RSV Type A (PCR) Not detected (NOT DETECT) 03/14/25 08:53 RSV Type B (PCR) Not detected (NOT DETECT) 03/14/25 08:53 Entero/Rhino (PCR) Detected (NOT DETECT) A 03/14/25 08:53 SARS-CoV-2 (PCR) Not detected (NOT DETECT) 03/14/25 08:53 Vitals Last Vital Signs Temp 98.2 F 03/20/25 15:32 Pulse 72 03/20/25 15:32 Resp 17 03/20/25 15:32 BP 163/73 03/20/25 15:32 Pulse Ox 93 03/20/25 15:32 O2 Del Method High Flow Nasal Cannula 03/20/25 13:34 O2 Flow Rate 3 03/20/25 13:34 FiO2 60 03/18/25 01:20 Discharge Plan Discharge Patient Disposition: Xfer SNF Condition: Stable Prescriptions: New levofloxacin 750 mg tablet 750 mg PO DAILY 5 Days Qty: 5 0RF prednisone 20 mg tablet 20 mg PO BID 5 Days Qty: 10 0RF lisinopril [Zestril] 40 mg tablet 40 mg PO DAILY Qty: 90 0RF Continued amiodarone 200 mg tablet 200 mg PO DAILY (DME) Admit to [facility] See Rx Instructions .Route .MEDSUPPLY Qty: 1 0RF Rx Instructions: As directed (DME) Monet Lam Toe Social Worker Aide See Rx Instructions .Route .MEDSUPPLY Qty: 1 0RF Rx Instructions: As directed by HOME cyanocobalamin (vitamin B-12) [Vitamin B-12] 1,000 mcg tablet 1,000 mcg PO DAILY Qty: 90 3RF levothyroxine 75 mcg tablet 75 mcg PO QAM Qty: 90 0RF amlodipine 10 mg tablet 10 mg PO DAILY Qty: 90 1RF aripiprazole 5 mg tablet 5 mg PO .qpm Qty: 30 2RF bupropion HCl [Wellbutrin XL] 150 mg tablet extended release 24 hr 150 mg PO QAM Qty: 30 1RF sertraline 25 mg tablet See Rx Instructions .ROUTE .COMPLEX Qty: 100 0RF Dose Instruction: TAKE ONE TABLET BY MOUTH EVERY DAY Rx Instructions: TAKE ONE TABLET BY MOUTH EVERY DAY atorvastatin 40 mg tablet 40 mg PO DAILY Qty: 90 0RF ropinirole 0.5 mg tablet 0.5 mg PO BEDTIME pantoprazole 40 mg tablet,delayed release (DR/EC) 40 mg PO BID polyethylene glycol 3350 [Purelax] 17 gram/dose powder 17 g PO DAILY Qty: 850 0RF oxycodone 5 mg tablet 5 - 10 mg PO Q6H PRN (Reason: Pain) magnesium gluconate 500 mg Tablet 500 mg PO BEDTIME guaifenesin [Marie-Tussin] 100 mg/5 mL Liquid 200 mg PO Q4H PRN (Reason: Cough) pregabalin 100 mg capsule 100 mg PO BEDTIME melatonin 5 mg Capsule 5 mg PO BEDTIME acetaminophen [Tylenol] 325 mg Tablet 650 mg PO QID PRN (Reason: Pain) magnesium oxide 400 mg magnesium Tablet 400 mg PO DAILY Discontinued lisinopril 20 mg tablet 20 mg PO DAILY Qty: 30 1RF Discharge Order = DC NOW: Discharge Order (Routine); Ordered 03/20/25 Ordered By: Andrew Harding Referrals: [facility] [Outside] Lynda Lopez MD [Primary Care Provider, Family Practice] Discharge Diet: Advance as tolerated and Cardiac Discharge Activity: Resume usual activity and Limit activity as instructed Patient Instructions: Opioid Safety, Patient Portal & Jason Instructions Discharge Attestations Time Spent in Discharge Care*: greater than 30 min Specific Discharge Activities: educating patient, educating and/or supporting family/caregiver, discussing with pcp/other providers, discussing with rn case management/social workers/dc planners, documenting/other paperwork and evaluating patient/reviewing data Status at Discharge: Cognitive status at discharge: cognitively intact, Behavioral status at discharge: cooperative, Functional status at discharge: other assisted ambulation, Overall status at discharge: patient is progressing back to baseline Quality Metrics Clinical Quality Measures [ No reported AMI, CVA or VTE this stay] Coding Level of Care Code 38530 Diagnoses Acute hypoxemic respiratory failure J96.01 Hematuria R31.9 Acute kidney injury N17.9 Pneumonia due to infectious organism, unspecified laterality, unspecified part of lung J18.9 Acute hypokalemia E87.6 Primary hypertension I10 Hypertension type: primary hypertension Restless legs syndrome G25.81 Fibromyalgia M79.7 Atherosclerotic heart disease of [place] coronary artery with other forms of angina pectoris I25.118 Hypothyroidism, unspecified type E03.9 Hypothyroidism type: unspecified Moderate episode of recurrent major depressive disorder F33.1 Major depression recurrence: recurrent Active/Remission status: currently active Major depression episode severity: moderate
== END 2025-03-20 15:33 | disposition intermediate care facility (04) | DRG 193 ==
LOC: ER 08:03 → ICU 08:30 → MEDSURG 03-18 22:05
PROVIDERS: Student in an Organized Health Care Education/Training Program; Admitting Provider Student in an Organized Health Care Education/Training Program; Emergency Provider Emergency Medicine; PCP Family Medicine; Visit Provider Student in an Organized Health Care Education/Training Program
DX: J18.9 Pneumonia, unspecified organism (principal); J96.01 Acute respiratory failure with hypoxia; N17.9 Acute kidney failure, unspecified; F33.1 Major depressive disorder, recurrent, moderate; R31.9 Hematuria, unspecified; E87.6 Hypokalemia; I10 Essential (primary) hypertension; G25.81 Restless legs syndrome; M79.7 Fibromyalgia; E03.9 Hypothyroidism, unspecified; I25.118 Atherosclerotic heart disease of native coronary artery with other forms of angina pectoris; Z87.891 Personal history of nicotine dependence; Z82.49 Family history of ischemic heart disease and other diseases of the circulatory system; Z95.0 Presence of cardiac pacemaker; Z79.890 Hormone replacement therapy; E78.5 Hyperlipidemia, unspecified; Z83.438 Family history of other disorder of lipoprotein metabolism and other lipidemia; Z99.81 Dependence on supplemental oxygen; B34.1 Enterovirus infection, unspecified
CPT/HCPCS: 36415; 36600; 71045; 80048; 80051; 80053; 81001; 82330; 82803; 82805; 83605; 83735; 83880; 84100; 84145; 84484; 85025; 86141; 87040; 87070; 87086; 87486; 87581; 87633; 87637; 93005; 93306; 94640; 94660; 96365; 96367; 96372; 96375; 97110; 97116; 97161; 97165; 97530; 97535; 99285; J0456; J0696; J1644; J1956; J2405; J2543; J2919; J3373; J3475; J7030; J7040; J7050; J7120; J7512; J9999; Q3014